=== PATIENT | male | born 1960 | race Caucasian/White ===

== ENCOUNTER 2021-01-11 07:49 | Outpatient (REF) | payer OTHER, SELFPAY ==
[2021-01-11 10:38] LABS: Eosinophils Absolute Auto 0.1 X10*3/uL (0.0-0.4); Imm Gran Abs Auto 0.01 X10*3/uL (0.00-0.03); Imm Gran Pct Auto 0.2 % (0.0-0.4); MANUAL DIFF FLAG SCAN; PLT CLUMP 1; SCAN SMEAR FLAG 1
[2021-01-11 10:40] LABS: Basophils Percent Auto 0.7 % (0-2); Hematocrit 45.6 % (42-52); Hemoglobin 16.5 g/dl (14.0-18.0); Lymphocytes Percent Auto 18.7 % (20-40); Mean Corpuscular HGB Conc 36.2 g/dl (31.0-36.0); Mean Corpuscular Hemoglobin 34.2 pg (27.0-33.0); Mean Corpuscular Volume 94.4 fL (80-98); Mean Platelet Volume 11.5 fL (9.4-12.4); Monocytes Absolute Auto 0.7 X10*3/uL (0.1-1.2); Monocytes Percent Auto 12.8 % (2-11); Neutrophils Absolute Auto 3.5 X10*3/uL (2.0-8.3); Neutrophils Percent Auto 65.6 % (45-73); Platelet Count 101 X10*3/uL (160-400); Red Blood Count 4.83 X10*6/uL (4.60-5.80); Red Cell Distribution Width 13.1 % (11.0-16.0); White Blood Count 5.4 X10*3/uL (4.8-10.8)
[2021-01-11 11:06] LABS: SLIDE REVIEW VERIFIED
[2021-01-11 11:20] LABS: Alanine Aminotransferase 28 U/L (0-40); Albumin Level 3.7 g/dL (3.5-5.0); Alkaline Phosphatase 170 U/L (39-117); Anion Gap 13 (12-20); Aspartate Amino Transferase 31 U/L (5-37); Bilirubin Total 1.4 mg/dL (0.0-1.0); Blood Urea Nitrogen 8 mg/dL (9-16); Calcium 8.9 mg/dL (8.4-10.2); Carbon Dioxide 27 mmol/L (22-29); Chloride 101 mmol/L (96-108); Cholesterol 208 mg/dL; Estimated Glomerular Filt Rate > 60; Glucose Random 136 mg/dL (60-115); HDL Cholesterol 57 mg/dL; LDL Cholesterol Calculated 125 mg/dl; Potassium 3.8 mmol/L (3.3-5.1); Sodium 137 mmol/L (135-145); Total Protein 7.6 g/dL (6.5-8.0); Triglycerides 131 mg/dL
[2021-01-11 11:25] LABS: Free T4 (Free Thyroxine) 0.77 ng/dL (0.71-1.85); Prostate Specific Antigen Scr 0.27 ng/mL (<0.05-4.0); Thyroid Stimulating Hormone 2.42 uIU/mL (0.32-4.0)
[2021-01-11 11:41] LABS: Folate 7.2 ng/mL (> or = 4.0); Vitamin B12 437 pg/mL (200-900)
== END 2021-01-11 07:50 | disposition home or self-care (01) ==
LOC: HO.10HDL 07:49
PROVIDERS: Visit Provider Internal Medicine
DX: Z12.5 Encounter for screening for malignant neoplasm of prostate (principal); I10 Essential (primary) hypertension; E78.00 Pure hypercholesterolemia, unspecified
CPT/HCPCS: 36415; 80053; 80061; 82607; 82746; 84153; 84439; 84443; 85025

== ENCOUNTER → 2021-08-08 09:24 | Outpatient (BNVA) | payer OTHER, SELFPAY | PROVIDERS: PCP Internal Medicine; Visit Provider Physician Assistant | DX: M17.12 Unilateral primary osteoarthritis, left knee (principal) | CPT/HCPCS: 20610; J1040 ==

== ENCOUNTER 2021-09-30 06:31 | Day surgery (SDC) | payer OTHER, SELFPAY ==
--- NOTE | 2021-09-28 12:39 | P.CONAN_ITS ---
Documented by User: Nolvia Redd NP 09/28/21 12:39 HPI - Anesthesia Eval Consult details Narrative: 60yo M for Colonoscopy PMFSH Active Problems Active Problems: All Active Problems (Updated 08/08/21 @ 11:13 by Denisha Barajas PA-C) Osteoarthritis of left knee (Acute) Type 2 diabetes mellitus with hyperglycemia (Acute) Lesion of right eyelid (Acute) Eye exam, routine (Acute) Colonoscopy refused (Acute) Colon cancer screening (Acute) Erectile dysfunction (Acute) Constipation (Acute) Guaiac + stool (Acute) Fatty liver (Acute) Thrombocytopenia (Acute) Annual physical exam (Acute) Hypercholesterolemia (Acute) Obesity (BMI 30-39.9) (Acute) Past Medical History Medical History (Updated 08/08/21 @ 11:13 by Denisha Barajas PA-C) Cholelithiasis Elevated blood sugar Erectile dysfunction Fatty liver Hypercholesterolemia Hypertension Knee osteoarthritis Obesity (BMI 30-39.9) Thrombocytopenia Family History Family History Family/Other Medical history unknown Surgical History Surgical History History of left knee surgery Social History Social History (Updated 12/21/20 @ 12:25 by Jade Harper MD) Housing: House Patient Tobacco Use Status: Never used Tobacco e-Cigarette/Vaping Use: Never Used Second Hand Smoke Exposure: No Use of substances other than those prescribed or required for medical reasons: No Are you DNR?: No Advance Directives: No Advance Directives Information Provided: Yes service: No Current occupational status: employed Cognitive needs: No Hearing needs: No Vision needs: Yes Meds Allergies Allergy/AdvReac Type Severity Reaction Status Date / Time No Known Allergies Allergy Verified 08/02/21 13:15 Exam Exam Date and Time: September 28, 2021 1239 Assessment and Plan Assessment Anesthesia Assessment: Chart Reviewed Documented by User: Lissa Beal MD 09/30/21 07:22 [facility] Past Medical History Medical History (Updated 08/08/21 @ 11:13 by Denisha Barajas PA-C) Cholelithiasis Elevated blood sugar Erectile dysfunction Fatty liver Hypercholesterolemia Hypertension Knee osteoarthritis Obesity (BMI 30-39.9) Thrombocytopenia Family History Family History Family/Other Medical history unknown Family history of problems with anesthesia: No Surgical History Surgical History History of left knee surgery History of Problems with Anesthesia: No Social History Social History (Updated 12/21/20 @ 12:25 by Jade Harper MD) Housing: House Patient Tobacco Use Status: Never used Tobacco e-Cigarette/Vaping Use: Never Used Second Hand Smoke Exposure: No Use of substances other than those prescribed or required for medical reasons: No Are you DNR?: No Advance Directives: No Advance Directives Information Provided: Yes service: No Current occupational status: employed Cognitive needs: No Hearing needs: No Vision needs: Yes Meds Allergies Allergy/AdvReac Type Severity Reaction Status Date / Time No Known Allergies Allergy Verified 08/02/21 13:15 Exam Airway Mallampati Class: II TM Dist: >3cm Neck ROM: Full Assessment and Plan Assessment Anesthesia Assessment: Anesthesia Plan Discussed Final Anesthetic Review Family History of Problems with Anesthesia: No History of Problems with Anesthesia: No NPO: Yes ASA Class: III Final Preanesthetic Review: No Changes in Pt Med Stat, Meds/Allgs Chart Reviewed, Consent Obtained/Reviewed and Anes Risks/Benef Reviewed Patient Risk: Intermediate Procedure Risk: Low Anesthetic Plan Anesthetic Plan: MAC: Disposition: Standard PACU
[2021-09-30 06:42] VITALS: BP 147/88; PULSE 77; RESP 18; TEMP 36.2; O2SAT 95; BMI 33.2
[2021-09-30] MEDS: Lactated Ringers 1,000 ML 100 ML IVCONT (06:54)
[2021-09-30 07:00] LABS: Hematocrit 46.3 % (42.0-52.0); Hemoglobin 16.9 g/dl (14.0-18.0); Mean Corpuscular HGB Conc 36.5 g/dl (31.0-36.0); Mean Corpuscular Hemoglobin 34.3 pg (27.0-33.0); Mean Corpuscular Volume 94.1 fL (80.0-98.0); Mean Platelet Volume 10.3 fL (9.4-12.4); Platelet Count 119 X10*3/uL (160-400); Red Blood Count 4.92 X10*6/uL (4.60-5.80); Red Cell Distribution Width 13.1 % (11.0-16.0); White Blood Count 6.4 X10*3/uL (4.8-10.8)
--- NOTE | 2021-09-30 07:28 | MHC.SHP ---
Pre-Procedural Eval Section A Date of Service: 09/30/21 Section B Chief Complaint: screening Details of Present Illness: see H&P no changes Relevant Family History (Specify if Yes): No Relevant Social History: Alcohol Use Present Medications: see Short Stay Collaborative assessment Medical History: No relevant PMH History of Previous Operations: No relevant previous surgery Allergies: Allergies Allergy/AdvReac Type Severity Reaction Status Date / Time No Known Allergies Allergy Verified 08/02/21 13:15 Review of Systems Sugical H&P ROS: Negative: Constitution, Cardiovascular, Respiratory, Neurological, Psychiatric, Hem-Onc, Allergic/Immunologic, Gastrointestinal, Genitourinary, Musculoskeletal, Integumentary, Endocrine and Eyes/Ears/Nose/Throat Exam Surgical H&P Exam: Normal: HEENT, Normal: Heart, Normal: Lungs, Normal: Extremities, Normal: Abdomen, Normal: Skin and Normal: Neurological Plan Diagnosis/Plan: Unchanged I have reviewed the history and physical and performed a pertinent physical examination on my patient. No changes have occurred unless specified.
[2021-09-30 08:07] VITALS: BP 100/61; PULSE 80; RESP 20; TEMP 36.6; O2SAT 98
--- NOTE | 2021-09-30 08:09 | PM.OP ---
Brief Operative Note Date of Service: 09/30/21 Pre-op diagnosis: screening Post-op diagnosis: same (colon polyps) Procedure: colonoscopy Surgeon: Santos Khan Anesthesia: MAC Was an Parts Runner used for this Procedure?: No Estimated blood loss (mL): 0 Pathology: other (polyps x3) Condition: stable
[2021-09-30 08:22] VITALS: BP 105/72; PULSE 71; RESP 18; TEMP 36.3; O2SAT 97
--- NOTE | 2021-09-30 11:16 | OP_ITS ---
SURGEON: Santos Khan MD INDICATIONS: Colon cancer screening. PREOPERATIVE DIAGNOSIS: POSTOPERATIVE DIAGNOSIS: PROCEDURE PERFORMED: Colonoscopy to the terminal ileum with snare polypectomy. ESTIMATED BLOOD LOSS: COMPLICATIONS: ANESTHESIA: ASSISTANTS: SPECIMENS: MEDICATIONS: Monitored anesthesia care. DESCRIPTION OF PROCEDURE: History and physical was performed. The risks and benefits of the procedure were explained to the patient. Informed consent was obtained. The patient was placed in the left lateral decubitus position. A digital rectal exam was performed and was found to be normal. The Olympus pediatric video colonoscope was introduced into the rectum and advanced to the cecum without difficulty. The cecum was identified by transillumination, palpation, and identification of ileocecal valve. Examination was performed. The scope was removed. He tolerated the procedure well and was taken to recovery room in stable condition. FINDINGS: The terminal ileum was examined and appeared normal. The visualized colonic mucosa was normal. There was some residual stool in the right colon which was washed and suctioned. This did limit examination for detection of small polyps slightly, but generally the examination was considered adequate. 3 polyps were identified and removed with a snare. All measured between 5 and 10 mm. These were located at 80 cm, 70 cm, and 35 cm. Retroflexed examination showed moderately large internal hemorrhoids. IMPRESSION: Colon polyps. RECOMMENDATION: Follow up biopsy results. MD TRAE Eden/CAITLYN / [id number]
== END 2021-09-30 08:50 | disposition home or self-care (01) ==
PROVIDERS: Nurse Practitioner; PCP Internal Medicine; Visit Provider Internal Medicine Gastroenterology
PROC: 0DJD8ZZ Inspection of Lower Intestinal Tract, Via Natural or Artificial Opening Endoscopic (ICD-10-PCS; CPT 45378; principal; 2021-09-30 07:30)
DX: Z12.11 Encounter for screening for malignant neoplasm of colon (principal); D12.4 Benign neoplasm of descending colon; D12.5 Benign neoplasm of sigmoid colon; K64.8 Other hemorrhoids; K76.0 Fatty (change of) liver, not elsewhere classified; I10 Essential (primary) hypertension; D69.6 Thrombocytopenia, unspecified; R73.9 Hyperglycemia, unspecified; Z79.899 Other long term (current) drug therapy
CPT/HCPCS: 45385; 36415; 85027; 88305

== ENCOUNTER → 2021-12-01 08:40 | Outpatient (BNVA) | payer OTHER, SELFPAY | PROVIDERS: PCP Internal Medicine; Visit Provider Physician Assistant | DX: M17.12 Unilateral primary osteoarthritis, left knee (principal) | CPT/HCPCS: 20610; J1040 ==

== ENCOUNTER 2022-01-05 17:18 | Inpatient (IN) | payer OTHER, SELFPAY ==
--- NOTE | ~2022-01-05 | US_ITS ---
EXAMINATION: US VENOUS WITH DOPPLER UPPER EXTREMITY, RIGHT CLINICAL INFORMATION: Right forearm pain and swelling status post IV puncture. COMPARISON: None TECHNIQUE: Ultrasound of the upper extremity is performed using compression sonography and color and pulse Doppler flow with assessment of augmentation of flow. There is also imaging and Doppler assessment of the jugular and subclavian veins. Spectral analysis with color-flow imaging is performed. FINDINGS: There is no evidence for deep venous thrombosis in the right internal jugular, subclavian, axillary, brachial, radial and ulnar veins. The right basilic vein is patent. The right cephalic vein shows positive thrombus from the level the mid forearm distally to the wrist. US/US venous duplex UE RT IMPRESSION: 1. No evidence of deep venous thrombosis in the visualized veins of the right upper extremity. 2. Positive superficial thrombus in the right cephalic vein from the level the mid forearm distally to the right wrist.
--- NOTE | ~2022-01-05 | CT_ITS ---
EXAMINATION: CT FOOT WITHOUT CONTRAST, RIGHT CLINICAL INFORMATION: Pain. COMPARISON: None TECHNIQUE: Axial images obtained through the foot. Coronal and sagittal reformatted images are performed at CT scanner This CT examination was performed using dose optimization techniques as appropriate, variously including the following: *Automated exposure control *Adjustment of mA and/or kV according to patient size (this includes techniques or standardized protocols for targeted exams where dose is matched to indication/reason for exam; i.e. extremities or head) *Use of iterative reconstruction technique DLP: 143 mGy-cm FINDINGS: There is gas and edema in the great toe soft tissues. There is seen through the soft tissues from about the mid first metatarsal at the dorsal side of the toe through the distal tip of the toe. There is soft tissue irregularity of the distal tip of the toe and edema. Findings consistent with infection. No abscess or drainable fluid collection however. There are air droplets within the bone consistent with osteomyelitis. There are droplets are most severe within the distal phalange. There are droplets however are also present in the proximal phalange, and head of the first metatarsal. There are a few air droplets also in the dorsum of the foot extending toward the ankle with associated soft tissue edema. No other region of infection or bone destruction of the foot. There are small spurs of the plantar surface of the calcaneus and at the posterior calcaneus. There are degenerative changes at the mid tarsal bones particularly at the anterior facet of the calcaneus talar articulation. CT/CT foot RT wo IV con IMPRESSION: Edema and gas in the soft tissues around the great toe. Gas within the bone of the great toe. Findings consistent with osteomyelitis. This can be further assessed with MRI if clinically warranted.
--- NOTE | ~2022-01-05 | IR_ITS ---
PROCEDURE: IR INSERTION OF PICC CLINICAL INFORMATION: PICC team unable to advance PICC line into the subclavian vein. COMPARISON: None. TECHNIQUE: Fluoroscopic-guided manipulation and placement of PICC line. All elements of maximal sterile barrier technique followed including use of cap, mask, sterile gown, sterile gloves, a sterile full body drape and hand hygiene. Also followed skin preparation with 2% chlorhexidine for cutaneous antisepsis, and sterile ultrasound preparation with sterile gel and probe cover when applicable. FINDINGS: The indwelling catheter tip is seen to lie at the junctions of the left axillary and subclavian veins. Using sterile technique the indwelling guidewire was removed and PICC line aspirated. A 0.018 inch guidewire was then placed through the catheter and into the inferior vena cava. The catheter was then advanced over the wire with its tip lying within the mid superior vena cava. The patient tolerated the procedure without difficulty. The PICC line had been trimmed to 49 cm at time of initial attempt at placement. FLUOROSCOPY TIME: 0.4 minutes. DAP: 86 cGy centimeter squared. IR/IR cvc insert peripheral IMPRESSION: Repositioning of left upper extremity PICC line as described.
[2022-01-05 17:42] VITALS: BP 96/59; PULSE 110; RESP 18; TEMP 37.7; O2SAT 95; BMI 31.8
--- NOTE | 2022-01-05 17:48 | ECG_ITS ---
Test Reason : SEPSIS Blood Pressure : / mmHG Vent. Rate : 096 BPM Atrial Rate : 096 BPM P-R Int : 132 ms QRS Dur : 106 ms QT Int : 376 ms P-R-T Axes : -18 -17 -03 degrees QTc Int : 475 ms Normal sinus rhythm Minimal voltage criteria for LVH, may be normal variant ( R in aVL ) Intra-ventricular conduction delay Borderline ECG No previous ECGs available Referred By: Ximena Calvillo Electronically Signed By:MILLIE CHARLES MD
[2022-01-05 18:05] LABS: Hematocrit 42.1 % (42.0-52.0); Hemoglobin 15.6 g/dl (14.0-18.0); Mean Corpuscular HGB Conc 37.1 g/dl (31.0-36.0); Mean Corpuscular Hemoglobin 33.7 pg (27.0-33.0); Mean Corpuscular Volume 90.9 fL (80.0-98.0); Mean Platelet Volume 10.2 fL (9.4-12.4); Platelet Count 269 X10*3/uL (160-400); Red Blood Count 4.63 X10*6/uL (4.60-5.80); Red Cell Distribution Width 12.8 % (11.0-16.0)
[2022-01-05 18:06] LABS: WBC ABN SCTR FOR CBC 1
[2022-01-05 18:20] LABS: COVID-19 Test Negative (Negative); IDNOW Serial# 16C4AD1C
[2022-01-05 18:24] LABS: Neutrophils Percent Manual 77 % (45-73)
[2022-01-05 18:29] LABS: Alanine Aminotransferase 37 U/L (0-40); Albumin Level 3.3 g/dL (3.5-5.0); Alkaline Phosphatase 121 U/L (39-117); Anion Gap 19 (12-20); Aspartate Amino Transferase 39 U/L (5-37); Band Neutrophils Percent 17 % (3-5); Bilirubin Direct 2.2 mg/dL (0.0-0.5); Bilirubin Total 4.3 mg/dL (0.0-1.0); Blood Urea Nitrogen 20 mg/dL (9-16); Calcium 8.6 mg/dL (8.4-10.2); Carbon Dioxide 20 mmol/L (22-29); Chloride 96 mmol/L (96-108); Estimated Glomerular Filt Rate 51; Glucose Random 150 mg/dL (60-115); Lipase 15 U/L (8-78); Lymphocytes Percent Manual 1 % (20-40); Monocytes Percent Manual 5 % (2-11); Potassium 3.6 mmol/L (3.3-5.1); Sodium 131 mmol/L (135-145); Total Protein 7.3 g/dL (6.5-8.0)
[2022-01-05 18:31] LABS: Platelet Estimate NORMAL (NORMAL); Platelet Morphology Comment NORMAL; RBC Morphology NOTED; Toxic Vacuolation PRESENT
[2022-01-05 18:33] LABS: Lymphocytes Absolute Manual 0.4 X10*3/uL (1.2-4.9); Monocytes Absolute Manual 2.2 X10*3/uL (0.1-1.2); Neutrophils Absolute Manual 40.5 X10*3/uL (2.0-8.3); White Blood Count 43.1 X10*3/uL (4.8-10.8)
[2022-01-05 18:34] LABS: Lactic Acid 2.6 mmol/L (0.5-2.0)
--- NOTE | 2022-01-05 19:04 | ED.SKABFB ---
HPI - Skin/Abscess/Foreign Bdy General Chief complaint: Skin/Abscess/Foreign Body Stated complaint: sent from doctors Time Seen by Provider: 01/05/22 18:39 Source: patient, family and old records reviewed Mode of arrival: ambulatory Limitations: no limitations and other History of Present Illness HPI narrative: 61 yo male hx of HLD, fatty liver, was drinking heavily up until 3 weeks ago, does not smoke, denies prior hx of DM ( primary care notes state DM after review but diet controlled last hemoglobin A1c 5.5) or PVD. Was sent to the ED by PCP for R foot swelling/infection. The patient reportedly had wood fall on it 3 months ago and it has worsened since. He has been in more pain and the wound/foot has become more red swollen and has an odor. He has been using hydrogen peroxide to clean it at home. MD complaint: rash, abscess/boil and lesion Onset (ago): month(s) (3) Tetanus up to date: yes Location: R foot Severity: severe Quality: aching and constant Pain Consistency: constant Relieving factors: immobilization Exacerbating factors: palpation and movement Context: other (trauma now with infection) Associated symptoms: chills, nausea and malaise Treatments prior to arrival: bandages Related Data Home Medications Medication Instructions Recorded Confirmed hydrochlorothiazide 25 mg tablet 25 mg PO DAILY 01/05/22 01/05/22 Previous Rx's Medication Instructions Recorded lisinopril 5 mg tablet 5 mg PO DAILY #90 tabs 05/09/21 sildenafil 50 mg tablet 50 mg PO DAILY PRN sexual activity 12/14/21 #10 tabs Allergies Allergy/AdvReac Type Severity Reaction Status Date / Time No Known Allergies Allergy Verified 01/05/22 16:23 Review of Systems Review of Systems: Constitutional : No Fever, pos Chills ENT/Mouth : No sore throat, No Rhinorrhea Eyes: No Eye Pain, No Swelling, No Redness Cardiovascular : No Chest Pain, No SOB Respiratory : No Cough, No Sputum Gastrointestinal : No Nausea, No Vomiting, No Diarrhea, No abdominal Pain Genitourinary : No Dysuria, No Hematuria Musculoskeletal : pos joint pain, No Myalgias, pos Joint Swelling Skin : No Skin Lesions, positive skin rash Neuro : No Weakness, No Numbness, No Headache Psych : No Anxiety, No Depression Heme/Lymph: No Bruising, No Bleeding,No Lymphadenopathy Endocrine : No Polyuria, No Polydipsia All other systems reviewed and are negative [facility] Past Medical History Attestation statement: The following information was validated with the patient. Medical History Cholelithiasis Elevated blood sugar Erectile dysfunction Fatty liver Hypercholesterolemia Hypertension Knee osteoarthritis Obesity (BMI 30-39.9) Thrombocytopenia Surgical History History of left knee surgery Family History Family History Family/Other Medical history unknown Social History Social History (Updated 12/21/20 @ 12:25 by Jade Harper MD) Housing: House Patient Tobacco Use Status: Never used Tobacco e-Cigarette/Vaping Use: Never Used Second Hand Smoke Exposure: No Advance Directives: No Advance Directives Information Provided: No service: No Current occupational status: employed Cognitive needs: No Hearing needs: No Vision needs: Yes Physical Exam Vital Signs: Vital Signs: Last Vital Signs Temp 98.7 F 01/05/22 19:42 Pulse 73 01/05/22 23:08 Resp 24 H 01/05/22 23:08 BP 97/56 L 01/05/22 23:29 Pulse Ox 97 01/05/22 23:08 O2 Del Method 01/05/22 23:08 BMI result Body Mass Index 31.8 Appearance: Alert. Oriented X3. No acute distress. Anxious Eyes: Pupils equal, round and reactive to light. Scleral icterus ENT: Pharynx mildly dry MM Neck: Normal inspection. Neck supple. CVS: tachycardic heart rate and rhythm. Pulses normal. Respiratory: No respiratory distress. Breath sounds normal. Abdomen: Soft and non-tender. Skin: Skin warm and dry. jaundiced skin color. Normal skin turgor. Extremities: please see skin picture blow - R foot necrotic area 1st toe hanging off - swelling and erythema onto dorsum of foot, bleeding noted, drainage and foul odor present Neuro: Oriented X 3. No motor deficit. No sensory deficit. Course Course Course Narrative: Dr. Green aware will follow along 712pm - will need surgery. patient is obese IBW is 78kg - 30cc/kg bolus ordered 2500cc ordered repeat requests for CT scan to be read by radiology - delay for a few hours uploaded in our viewer 730 images sent to surgery to review - states pockets of air expected, patient will need BKA BP still in low 87/51 - albumin and repeat 500c bolus ordered will see how patient responds - will notify surgery about possible failure Dr. Maddox aware will follow along if pressures do not improve over 90 he will take the patient BP 97/56 - discussed case with hospitalist - planned admit MDM - Skin/Abscess/Foreign Bdy MDM Narrative Medical decision making narrative: 61 yo male hx of HLD, fatty liver, was drinking heavily up until 3 weeks ago, does not smoke, denies prior hx of DM ( primary care notes state DM after review but diet controlled last hemoglobin A1c 5.5) or PVD now with necrotic R great toe - labs, cultures, lactic acid, CPK, CT scan of foot to r/o gas though low suspicion, will involve surgery as this will require inpatient amputation at some point. Broad spectrum antibiotics including vancomycin and zosyn at first. 1 dose of clindamycin for toxin production until CT scan returned. I did notify the patient and his that this would require debridement and amputation the patient is very much in denial about what is going on Lab Data Result diagrams: 01/05/22 17:55 01/05/22 17:55 Labs: Lab Results 01/05/22 01/05/22 01/05/22 Range/Units 17:54 17:55 17:55 WBC 43.1 H* (4.8-10.8) X10*3/uL RBC 4.63 (4.60-5.80) X10*6/uL Hgb 15.6 (14.0-18.0) g/dl Hct 42.1 (42.0-52.0) % MCV 90.9 (80.0-98.0) fL MCH 33.7 H (27.0-33.0) pg MCHC 37.1 H (31.0-36.0) g/dl RDW 12.8 (11.0-16.0) % Plt Count 269 D (160-400) X10*3/uL MPV 10.2 (9.4-12.4) fL Immature Gran % (Auto) Cancelled Neut % (Auto) Cancelled Lymph % (Auto) Cancelled [place] % (Auto) Cancelled Eos % (Auto) Cancelled Baso % (Auto) Cancelled Lymph # (Auto) Cancelled [place] # (Auto) Cancelled Eos # (Auto) Cancelled Baso # (Auto) Cancelled Abs Immat Gran (auto) Cancelled Absolute Neuts (auto) Cancelled Absolute Nucleated RBC 0.000 (0.0-0.012) X10*3/uL Nucleated RBC % (auto) 0.0 (0.0-0.2) /100WBC Neutrophils % (Manual) 77 H (45-73) % Band Neutrophils % 17 H (3-5) % Lymphocytes % (Manual) 1 L (20-40) % Monocytes % (Manual) 5 (2-11) % Abs Neuts (Manual) 40.5 H (2.0-8.3) X10*3/uL Lymphocytes # (Manual) 0.4 L (1.2-4.9) X10*3/uL Monocytes # (Manual) 2.2 H (0.1-1.2) X10*3/uL Toxic Vacuolation PRESENT Platelet Estimate NORMAL (NORMAL) Plt Morphology Comment NORMAL RBC Morphology NOTED PT (10.0-13.1) SEC INR (0.9-1.1) APTT (26.0-36.4) SEC Sodium 131 L (135-145) mmol/L Potassium 3.6 (3.3-5.1) mmol/L Chloride 96 (96-108) mmol/L Carbon Dioxide 20 L (22-29) mmol/L Anion Gap 19 (12-20) BUN 20 H (9-16) mg/dL Creatinine 1.40 (0.5-1.4) mg/dL Estim Creat Clear Calc 69.0 Estimated GFR 51 Random Glucose 150 H (60-115) mg/dL Lactic Acid (0.5-2.0) mmol/L Lactic Acid F/U @ 2Hr (0.5-2.0) mmol/L Calcium 8.6 (8.4-10.2) mg/dL Magnesium 1.8 (1.6-2.6) mg/dL Total Bilirubin 4.3 H (0.0-1.0) mg/dL Direct Bilirubin 2.2 H (0.0-0.5) mg/dL AST 39 H (5-37) U/L ALT 37 (0-40) U/L Alkaline Phosphatase 121 H D (39-117) U/L Ammonia (13-55) umol/L Total Creatine Kinase 50 (38-174) U/L Total Protein 7.3 (6.5-8.0) g/dL Albumin 3.3 L (3.5-5.0) g/dL Lipase 15 (8-78) U/L Ethyl Alcohol < 10 mg/dL COVID-19 (LOY) Negative (Negative) COVID-19 Clin Com See Note 01/05/22 01/05/22 01/05/22 Range/Units 17:57 19:03 19:49 WBC (4.8-10.8) X10*3/uL RBC (4.60-5.80) X10*6/uL Hgb (14.0-18.0) g/dl Hct (42.0-52.0) % MCV (80.0-98.0) fL MCH (27.0-33.0) pg MCHC (31.0-36.0) g/dl RDW (11.0-16.0) % Plt Count (160-400) X10*3/uL MPV (9.4-12.4) fL Immature Gran % (Auto) Neut % (Auto) Lymph % (Auto) [place] % (Auto) Eos % (Auto) Baso % (Auto) Lymph # (Auto) [place] # (Auto) Eos # (Auto) Baso # (Auto) Abs Immat Gran (auto) Absolute Neuts (auto) Absolute Nucleated RBC (0.0-0.012) X10*3/uL Nucleated RBC % (auto) (0.0-0.2) /100WBC Neutrophils % (Manual) (45-73) % Band Neutrophils % (3-5) % Lymphocytes % (Manual) (20-40) % Monocytes % (Manual) (2-11) % Abs Neuts (Manual) (2.0-8.3) X10*3/uL Lymphocytes # (Manual) (1.2-4.9) X10*3/uL Monocytes # (Manual) (0.1-1.2) X10*3/uL Toxic Vacuolation Platelet Estimate (NORMAL) Plt Morphology Comment RBC Morphology PT 20.7 H (10.0-13.1) SEC INR 1.8 H (0.9-1.1) APTT 33.4 (26.0-36.4) SEC Sodium (135-145) mmol/L Potassium (3.3-5.1) mmol/L Chloride (96-108) mmol/L Carbon Dioxide (22-29) mmol/L Anion Gap (12-20) BUN (9-16) mg/dL Creatinine (0.5-1.4) mg/dL Estim Creat Clear Calc Estimated GFR Random Glucose (60-115) mg/dL Lactic Acid 2.6 H* (0.5-2.0) mmol/L Lactic Acid F/U @ 2Hr (0.5-2.0) mmol/L Calcium (8.4-10.2) mg/dL Magnesium (1.6-2.6) mg/dL Total Bilirubin (0.0-1.0) mg/dL Direct Bilirubin (0.0-0.5) mg/dL AST (5-37) U/L ALT (0-40) U/L Alkaline Phosphatase (39-117) U/L Ammonia 46 (13-55) umol/L Total Creatine Kinase (38-174) U/L Total Protein (6.5-8.0) g/dL Albumin (3.5-5.0) g/dL Lipase (8-78) U/L Ethyl Alcohol mg/dL COVID-19 (LOY) (Negative) COVID-19 Clin Com 01/05/22 Range/Units 20:57 WBC (4.8-10.8) X10*3/uL RBC (4.60-5.80) X10*6/uL Hgb (14.0-18.0) g/dl Hct (42.0-52.0) % MCV (80.0-98.0) fL MCH (27.0-33.0) pg MCHC (31.0-36.0) g/dl RDW (11.0-16.0) % Plt Count (160-400) X10*3/uL MPV (9.4-12.4) fL Immature Gran % (Auto) Neut % (Auto) Lymph % (Auto) [place] % (Auto) Eos % (Auto) Baso % (Auto) Lymph # (Auto) [place] # (Auto) Eos # (Auto) Baso # (Auto) Abs Immat Gran (auto) Absolute Neuts (auto) Absolute Nucleated RBC (0.0-0.012) X10*3/uL Nucleated RBC % (auto) (0.0-0.2) /100WBC Neutrophils % (Manual) (45-73) % Band Neutrophils % (3-5) % Lymphocytes % (Manual) (20-40) % Monocytes % (Manual) (2-11) % Abs Neuts (Manual) (2.0-8.3) X10*3/uL Lymphocytes # (Manual) (1.2-4.9) X10*3/uL Monocytes # (Manual) (0.1-1.2) X10*3/uL Toxic Vacuolation Platelet Estimate (NORMAL) Plt Morphology Comment RBC Morphology PT (10.0-13.1) SEC INR (0.9-1.1) APTT (26.0-36.4) SEC Sodium (135-145) mmol/L Potassium (3.3-5.1) mmol/L Chloride (96-108) mmol/L Carbon Dioxide (22-29) mmol/L Anion Gap (12-20) BUN (9-16) mg/dL Creatinine (0.5-1.4) mg/dL Estim Creat Clear Calc Estimated GFR Random Glucose (60-115) mg/dL Lactic Acid (0.5-2.0) mmol/L Lactic Acid F/U @ 2Hr 1.9 (0.5-2.0) mmol/L Calcium (8.4-10.2) mg/dL Magnesium (1.6-2.6) mg/dL Total Bilirubin (0.0-1.0) mg/dL Direct Bilirubin (0.0-0.5) mg/dL AST (5-37) U/L ALT (0-40) U/L Alkaline Phosphatase (39-117) U/L Ammonia (13-55) umol/L Total Creatine Kinase (38-174) U/L Total Protein (6.5-8.0) g/dL Albumin (3.5-5.0) g/dL Lipase (8-78) U/L Ethyl Alcohol mg/dL COVID-19 (LOY) (Negative) COVID-19 Clin Com ECG Data Attestation: I personally reviewed and interpreted this ECG as follows: ECG interpretation date: 01/05/22 ECG interpretation time: 19:44 Interpretation: Rate: 96 Rhythm: NSR [place]: left , LVH Normal P waves. Normal REGINALDO. Normal QRS complex. ST T wave : normal no VIVI qTC: prolonged prior studies: no acute ischemia The study has been interpreted contemporaneously by me. . Critical Care Time Critical Care Time Critical Care Time: Yes Total Critical Care Time: 40 Attestation: review of records, IV antibiotics, medical consult, admission to facility, IVF x 2.5L. I attest to this time spent taking care of the patient Discharge Plan Discharge Clinical Impression: Bandemia, Elevated bilirubin, Acidosis, lactic, Cellulitis of foot, right, Gangrene Leukocytosis Qualifiers: Leukocytosis type: bandemia Qualified Code(s): D72.825 - Bandemia Osteomyelitis Qualifiers: Osteomyelitis type: other Osteomyelitis location: foot Laterality: right Qualified Code(s): M86.8X7 - Other osteomyelitis, ankle and foot Patient Disposition: Admitted As Inpatient
[2022-01-05 19:06] LABS: Ethanol < 10 mg/dL; Magnesium 1.8 mg/dL (1.6-2.6)
[2022-01-05] MEDS: Acetaminophen 325 MG TABLET 650 MG PO (19:11)
[2022-01-05] MEDS: 0.9 % Sodium Chloride 1,000 ML 999 ML IV ×2 (19:12→19:59)
[2022-01-05] MEDS: Piperacillin Sodium/Tazobactam 3.375 GM in 0.9 % Sodium Chloride 50 ML IV (19:13)
[2022-01-05 19:15] LABS: INTERNATIONAL NORM RATIO 1.8 (0.9-1.1); Prothrombin Time 20.7 SEC (10.0-13.1)
[2022-01-05 19:17] LABS: Partial Thromboplastin Time 33.4 SEC (26.0-36.4)
[2022-01-05 19:42] VITALS: BP 100/57; PULSE 92; RESP 21; TEMP 37.1; O2SAT 96
[2022-01-05] MEDS: Clindamycin Phosphate/D5W 900 MG/50 ML PIGGYBACK 50 MG IV (19:51)
[2022-01-05] MEDS: 0.9 % Sodium Chloride 500 ML IV (19:59)
[2022-01-05 20:02] LABS: Reflex Lactate? Lactic Acid Added
[2022-01-05 20:03] LABS: Ammonia 46 umol/L (13-55)
[2022-01-05 20:39] VITALS: BP 95/58; PULSE 81; RESP 24; O2SAT 96
--- NOTE | 2022-01-05 20:41 | PHA.MEDREC ---
Pharmacy Consult ? Medication Reconciliation Pharmacy has completed the medication reconciliation.
[2022-01-05 21:14] LABS: ~Lactic Acid-LAB USE ONLY 1.9 mmol/L (0.5-2.0)
[2022-01-05] MEDS: Albumin Human 25 % 100 ML IV (23:04)
[2022-01-05 23:08] VITALS: BP 87/51; PULSE 73; RESP 24; O2SAT 97
[2022-01-05 23:29] VITALS: BP 97/56
[2022-01-06] VITALS (10 sets, daily range): BP systolic 95–127; BP diastolic 52–72; PULSE 74–103; RESP 16–22; TEMP 36.2–38.4; O2SAT 94–97; BMI 33.5
--- NOTE | 2022-01-06 00:08 | P.HPHOSP_ITS ---
History of Present Illness Date of Service: 01/06/22 Chief Complaint: Foot infection This is a 61-year-old male with a pertinent history of essential hypertension, ?diet-controlled diabetes mellitus, alcohol use disorder who presents to the emergency department at the behest of his primary care physician for evaluation of right foot wound. Patient states he had a callus under his right foot about 3 months ago. A piece of wood also fell on his right foot about the same time and since then he has had a right foot wound which has not healed. It has gotten progressively worse with swelling, redness, worsening pain and recently has started draining purulent foul-smelling discharge. Patient did not see a doctor for it and did not take any antibiotics as he does not like to see doctors. Does report fever and chills at home. No nausea, vomiting, chest discomfort, shortness of breath, abdominal pain, changes in urinary or bowel habits. Denies history of peripheral vascular disease. Patient states he used to drink about 8 beers a day. His last drink was 2 weeks ago. In the emergency department, significant leukocytosis with bandemia seen. CT scan with gas in soft tissue and evidence of osteomyelitis. Review of Systems Review of Systems: All 13 review of systems are negative except as noted in [facility] Medical History (Updated 01/06/22 @ 00:19 by Trini Chinchilla MD) Cholelithiasis Elevated blood sugar Erectile dysfunction Fatty liver Hypercholesterolemia Hypertension Knee osteoarthritis Obesity (BMI 30-39.9) Thrombocytopenia Family History Family/Other Medical history unknown Surgical History History of left knee surgery Social History Housing: House Patient Tobacco Use Status: Never used Tobacco e-Cigarette/Vaping Use: Never Used Second Hand Smoke Exposure: No Advance Directives: No Advance Directives Information Provided: No service: No Current occupational status: employed Cognitive needs: No Hearing needs: No Vision needs: Yes Meds Allergies Allergy/AdvReac Type Severity Reaction Status Date / Time No Known Allergies Allergy Verified 01/05/22 16:23 Active Medications: Current Medications Acetaminophen (Acetaminophen 325 Mg Tablet) 650 mg PO Q6H PRN PRN Reason: Pain, Mild (Pain Scale 1-3) Sodium Chloride (Ns) 500 mls @ 500 mls/hr IV .Q1H [facility] Stop: 01/06/22 00:14 Piperacillin Sod/Tazobactam (Sod 4.5 gm/ Sodium Chloride) 100 mls @ 200 mls/hr IV Q6H [facility] Clindamycin Phosphate (Cleocin) 900 mg in 50 mls @ 50 mls/hr IV Q8H [facility] Melatonin (Melatonin 3 Mg Tablet) 6 mg PO BEDTIME PRN PRN Reason: Insomnia Ondansetron HCl (Ondansetron Hcl 4 Mg/2 Ml Vial) 4 mg IVPUSH Q8H PRN PRN Reason: Nausea and Vomiting Pharmacy Consult (Consult Rx Perform Med Rec) 1 each MISCELLANE ONCE PRN PRN Reason: Consult order Pharmacy Consult (Consult Rx Vancomycin Dosing) 1 each MISCELLANE DAILY PRN PRN Reason: Consult order Sodium Chloride (0.9 % Sodium Chloride Flush 3 Ml Syringe) [address] [facility] Home Medications Medication Instructions Recorded Confirmed Last Taken Type hydrochlorothiazide 25 mg tablet 25 mg PO DAILY 01/05/22 01/05/22 01/05/22 History Physical Exam Vital Signs and Narrative: Vital Signs: Last Vital Signs Temp 98.7 F 01/05/22 19:42 Pulse 73 01/05/22 23:08 Resp 24 H 01/05/22 23:08 BP 97/56 L 01/05/22 23:29 Pulse Ox 97 01/05/22 23:08 O2 Del Method 01/05/22 23:08 BMI result Body Mass Index 31.8 Middle-aged male lying in bed in no distress Neck supple, no JVD Regular rate and rhythm, S1-S2 heard Regular breath sounds bilaterally, no wheezing or crackles appreciated Abdomen soft nontender, no guarding, no rigidity Patient is awake, alert and oriented to self, place, time and person ; no focal motor deficit Extremities: Right lower extremity covered in bandage. Psych: Normal mood Results Labs CBC and Chem 7: 01/05/22 17:55 01/05/22 17:55 Labs: Laboratory Results - last 24 hr 01/05/22 01/05/22 01/05/22 17:54 17:55 17:55 MCV 90.9 MCH 33.7 H MCHC 37.1 H RDW 12.8 Plt Count 269 D MPV 10.2 Immature Gran % (Auto) Cancelled Neut % (Auto) Cancelled Lymph % (Auto) Cancelled [place] % (Auto) Cancelled Eos % (Auto) Cancelled Baso % (Auto) Cancelled Lymph # (Auto) Cancelled [place] # (Auto) Cancelled Eos # (Auto) Cancelled Baso # (Auto) Cancelled Abs Immat Gran (auto) Cancelled Absolute Neuts (auto) Cancelled Absolute Nucleated RBC 0.000 Nucleated RBC % (auto) 0.0 Neutrophils % (Manual) 77 H Band Neutrophils % 17 H Lymphocytes % (Manual) 1 L Monocytes % (Manual) 5 Abs Neuts (Manual) 40.5 H Lymphocytes # (Manual) 0.4 L Monocytes # (Manual) 2.2 H Toxic Vacuolation PRESENT Platelet Estimate NORMAL Plt Morphology Comment NORMAL RBC Morphology NOTED PT INR APTT Anion Gap 19 Estim Creat Clear Calc 69.0 Estimated GFR 51 Random Glucose 150 H Lactic Acid Lactic Acid F/U @ 2Hr Calcium 8.6 Magnesium 1.8 Total Bilirubin 4.3 H Direct Bilirubin 2.2 H AST 39 H ALT 37 Alkaline Phosphatase 121 H D Ammonia Total Creatine Kinase 50 Total Protein 7.3 Albumin 3.3 L Lipase 15 Ethyl Alcohol < 10 COVID-19 (LOY) Negative COVID-19 Clin Com See Note 01/05/22 01/05/22 01/05/22 17:57 19:03 19:49 MCV MCH MCHC RDW Plt Count MPV Immature Gran % (Auto) Neut % (Auto) Lymph % (Auto) [place] % (Auto) Eos % (Auto) Baso % (Auto) Lymph # (Auto) [place] # (Auto) Eos # (Auto) Baso # (Auto) Abs Immat Gran (auto) Absolute Neuts (auto) Absolute Nucleated RBC Nucleated RBC % (auto) Neutrophils % (Manual) Band Neutrophils % Lymphocytes % (Manual) Monocytes % (Manual) Abs Neuts (Manual) Lymphocytes # (Manual) Monocytes # (Manual) Toxic Vacuolation Platelet Estimate Plt Morphology Comment RBC Morphology PT 20.7 H INR 1.8 H APTT 33.4 Anion Gap Estim Creat Clear Calc Estimated GFR Random Glucose Lactic Acid 2.6 H* Lactic Acid F/U @ 2Hr Calcium Magnesium Total Bilirubin Direct Bilirubin AST ALT Alkaline Phosphatase Ammonia 46 Total Creatine Kinase Total Protein Albumin Lipase Ethyl Alcohol COVID-19 (LOY) COVID-19 Be Spotted Com 01/05/22 20:57 MCV MCH MCHC RDW Plt Count MPV Immature Gran % (Auto) Neut % (Auto) Lymph % (Auto) [place] % (Auto) Eos % (Auto) Baso % (Auto) Lymph # (Auto) [place] # (Auto) Eos # (Auto) Baso # (Auto) Abs Immat Gran (auto) Absolute Neuts (auto) Absolute Nucleated RBC Nucleated RBC % (auto) Neutrophils % (Manual) Band Neutrophils % Lymphocytes % (Manual) Monocytes % (Manual) Abs Neuts (Manual) Lymphocytes # (Manual) Monocytes # (Manual) Toxic Vacuolation Platelet Estimate Plt Morphology Comment RBC Morphology PT INR APTT Anion Gap Estim Creat Clear Calc Estimated GFR Random Glucose Lactic Acid Lactic Acid F/U @ 2Hr 1.9 Calcium Magnesium Total Bilirubin Direct Bilirubin AST ALT Alkaline Phosphatase Ammonia Total Creatine Kinase Total Protein Albumin Lipase Ethyl Alcohol COVID-19 (LOY) COVID-19 Clin Com Imaging Radiologist's Impressions: Impressions Foot CT 01/05/22 19:53 IMPRESSION: Edema and gas in the soft tissues around the great toe. Gas within the bone of the great toe. Findings consistent with osteomyelitis. This can be further assessed with MRI if clinically warranted. Assessment and Plan (1) Osteomyelitis: Qualifiers: Laterality: right Osteomyelitis location: foot Osteomyelitis type: other Qualified Code(s): M86.8X7 - Other osteomyelitis, ankle and foot Status: Acute (2) Wet gangrene: Status: Acute (3) Leukocytosis: Qualifiers: Leukocytosis type: bandemia Qualified Code(s): D72.825 - Bandemia Status: Acute (4) Obesity (BMI 30-39.9): Status: Acute (5) Fatty liver: Status: Acute (6) Hypertension: Status: Acute (7) Alcohol use: Status: Acute Plan This is a 61-year-old male with a pertinent history of essential hypertension, ?diet-controlled diabetes mellitus, alcohol use disorder who presents to the emergency department at the behest of his primary care physician for evaluation of right foot wound. #. Sepsis due to right foot gas gangrene and osteomyelitis -patient resuscitated with IV crystalloids and colloids in the ER. Will continue broad-spectrum antibiotics including clindamycin for evidence of gas in soft tissue. Dr. Green, general surgery has been consulted from the ER. Consulting Infectious Disease for recommendations. Blood pressure low normal due to sepsis, watch closely with low threshold to transfer to the ICU. Blood cultures and lactate obtained #. Type a lactic acidosis due to above #. Significant leukocytosis with bandemia #. Transaminitis due to sepsis in a patient with fatty liver #. Coagulopathy due to sepsis #. ?diet controlled diabetes mellitus -obtaining A1c #. Essential hypertension -hold home antihypertensives #. Alcohol use disorder -patient states his last drink was 2 weeks ago. Monitor for withdrawal but defer benzo treatment currently DVT prophylaxis: Holding Lovenox until surgical evaluation Diet: NPO after midnight until surgical evaluation Full code Patient will require two night minimum hospital stay for evaluation and management of sepsis due to gas gangrene and osteomyelitis. Also needs surgical evaluation and possible debridement Quality Stroke Does the patient have a stroke diagnosis?: No VTE Prior VTE?: No VTE Risk Level:: Medical - moderate - high VTE Device Contraindication: Treatment Not Indicated VTE Drug Contraindication: Treatment Not Indicated
[2022-01-06] MEDS: 0.9 % Sodium Chloride 500 ML IV (00:40)
--- NOTE | 2022-01-06 01:14 | PM.CNGS ---
History of Present Illness Consult details Consult date: 01/06/22 Requesting physician: Liz Fernandez Narrative: 61-year-old male patient presenting with an infection involving the right foot. He reports several injuries to the right foot including an injury from falling would to the great toe approximately 3 months ago.. He also notes a prior callus to the toe which he had been cleaning with peroxide. He initially denied any foot pain but over the past several days has had increased swelling and pain especially in the great toe. He usually wears steel-toed shoes at work and feels that this may have increased the pain as his foot swelled. He denies being diabetic but has been followed by Dr. Harper for his hyperglycemia. He denies any previous foot infections and denies any trauma to the left foot. His reports that she has been trying to get him to seek medical attention for several days regarding his foot. Admitting laboratories revealed a markedly elevated WBC. CT of the foot does reveal air in the soft tissue around the great toe including air in the metatarsal suggestive of osteomyelitis. Review of Systems Review of Systems: Yes all other systems are reviewed and are negative Musculoskeletal: Musculoskeletal: Reports as per HPI Comments: Foot pain PMFSH Past Medical History Medical History Cholelithiasis Elevated blood sugar Erectile dysfunction Fatty liver Hypercholesterolemia Hypertension Knee osteoarthritis Obesity (BMI 30-39.9) Thrombocytopenia Family History Family History Family/Other Medical history unknown Surgical History Surgical History History of left knee surgery Social History Social History Housing: House Patient Tobacco Use Status: Never used Tobacco e-Cigarette/Vaping Use: Never Used Second Hand Smoke Exposure: No Advance Directives: No Advance Directives Information Provided: No service: No Current occupational status: employed Cognitive needs: No Hearing needs: No Vision needs: Yes Meds Allergies Allergy/AdvReac Type Severity Reaction Status Date / Time No Known Allergies Allergy Verified 01/05/22 16:23 Active Medications: Current Medications Acetaminophen (Acetaminophen 325 Mg Tablet) 650 mg PO Q6H PRN PRN Reason: Pain, Mild (Pain Scale 1-3) Piperacillin Sod/Tazobactam (Sod 4.5 gm/ Sodium Chloride) 100 mls @ 200 mls/hr IV Q6H [facility] Clindamycin Phosphate (Cleocin) 900 mg in 50 mls @ 50 mls/hr IV Q8H [facility] Melatonin (Melatonin 3 Mg Tablet) 6 mg PO BEDTIME PRN PRN Reason: Insomnia Ondansetron HCl (Ondansetron Hcl 4 Mg/2 Ml Vial) 4 mg IVPUSH Q8H PRN PRN Reason: Nausea and Vomiting Pharmacy Consult (Consult Rx Perform Med Rec) 1 each MISCELLANE ONCE PRN PRN Reason: Consult order Pharmacy Consult (Consult Rx Vancomycin Dosing) 1 each MISCELLANE DAILY PRN PRN Reason: Consult order Sodium Chloride (0.9 % Sodium Chloride Flush 3 Ml Syringe) 3 ml IVFLUSH QSHIFT [facility] Last Admin: 01/06/22 00:16 Dose: Not Given Home Medications Medication Instructions Recorded Confirmed Last Taken Type hydrochlorothiazide 25 mg tablet 25 mg PO DAILY 01/05/22 01/05/22 01/05/22 History Physical Exam Vital Signs: Vital Signs: Last Vital Signs Temp 98.7 F 01/05/22 19:42 Pulse 76 01/06/22 00:14 Resp 22 H 01/06/22 00:14 BP 95/52 L 01/06/22 00:14 Pulse Ox 97 01/06/22 00:14 O2 Del Method 01/06/22 00:14 BMI result Body Mass Index 31.8 Const: General: no acute distress and well developed Nutritional Appearance: well nourished Orientation/consciousness: patient oriented x3 Limitations: no limitations HEENT: Head: Yes normocephalic and Yes atraumatic Ears: hearing grossly normal bilaterally Resp: Effort & Inspection: normal respiratory effort, no audible wheezes, no cough and no respiratory distress GI: Inspection: Yes normal to inspection Skin: Other: Warm, dry, no rash Neuro: General: patient oriented x3 Extrem: Other: Gangrenous changes involving the great toe with cellulitic changes extending up along the 1st and 2nd metatarsal on the dorsum. Edema is noted in the foot and ankle when compared to the left leg. Foul-smelling odor noted from the great toe. Ankle/foot/toe images: 1. Area of gangrene and cellulitis Results Labs Result diagrams: 01/05/22 17:55 01/05/22 17:55 Labs: Abnormal lab results 01/05/22 01/05/22 01/05/22 Range/Units 17:55 17:55 17:57 WBC 43.1 H* (4.8-10.8) X10*3/uL MCH 33.7 H (27.0-33.0) pg MCHC 37.1 H (31.0-36.0) g/dl Neutrophils % (Manual) 77 H (45-73) % Band Neutrophils % 17 H (3-5) % Lymphocytes % (Manual) 1 L (20-40) % Abs Neuts (Manual) 40.5 H (2.0-8.3) X10*3/uL Lymphocytes # (Manual) 0.4 L (1.2-4.9) X10*3/uL Monocytes # (Manual) 2.2 H (0.1-1.2) X10*3/uL PT (10.0-13.1) SEC INR (0.9-1.1) Sodium 131 L (135-145) mmol/L Carbon Dioxide 20 L (22-29) mmol/L BUN 20 H (9-16) mg/dL Random Glucose 150 H (60-115) mg/dL Lactic Acid 2.6 H* (0.5-2.0) mmol/L Total Bilirubin 4.3 H (0.0-1.0) mg/dL Direct Bilirubin 2.2 H (0.0-0.5) mg/dL AST 39 H (5-37) U/L Alkaline Phosphatase 121 H D (39-117) U/L Albumin 3.3 L (3.5-5.0) g/dL 01/05/22 Range/Units 19:03 WBC (4.8-10.8) X10*3/uL MCH (27.0-33.0) pg MCHC (31.0-36.0) g/dl Neutrophils % (Manual) (45-73) % Band Neutrophils % (3-5) % Lymphocytes % (Manual) (20-40) % Abs Neuts (Manual) (2.0-8.3) X10*3/uL Lymphocytes # (Manual) (1.2-4.9) X10*3/uL Monocytes # (Manual) (0.1-1.2) X10*3/uL PT 20.7 H (10.0-13.1) SEC INR 1.8 H (0.9-1.1) Sodium (135-145) mmol/L Carbon Dioxide (22-29) mmol/L BUN (9-16) mg/dL Random Glucose (60-115) mg/dL Lactic Acid (0.5-2.0) mmol/L Total Bilirubin (0.0-1.0) mg/dL Direct Bilirubin (0.0-0.5) mg/dL AST (5-37) U/L Alkaline Phosphatase (39-117) U/L Albumin (3.5-5.0) g/dL Short CBC 01/05/22 Range/Units 17:55 WBC 43.1 H* (4.8-10.8) X10*3/uL Hgb 15.6 (14.0-18.0) g/dl Hct 42.1 (42.0-52.0) % Plt Count 269 D (160-400) X10*3/uL BMP 01/05/22 17:55 Sodium 131 L Potassium 3.6 Chloride 96 Carbon Dioxide 20 L BUN 20 H Creatinine 1.40 Calcium 8.6 Cardiac Enzymes 01/05/22 Range/Units 17:55 Total Creatine Kinase 50 (38-174) U/L Liver Function 01/05/22 Range/Units 17:55 Total Bilirubin 4.3 H (0.0-1.0) mg/dL Direct Bilirubin 2.2 H (0.0-0.5) mg/dL AST 39 H (5-37) U/L ALT 37 (0-40) U/L Alkaline Phosphatase 121 H D (39-117) U/L Albumin 3.3 L (3.5-5.0) g/dL All other labs normal. Assessment and Plan (1) Leukocytosis: Qualifiers: Leukocytosis type: bandemia Qualified Code(s): D72.825 - Bandemia Status: Acute (2) Cellulitis of toe of right foot: Status: Acute (3) Osteomyelitis: Qualifiers: Laterality: right Osteomyelitis location: foot Osteomyelitis type: other Qualified Code(s): M86.8X7 - Other osteomyelitis, ankle and foot Status: Acute (4) Gangrene: Status: Acute Plan 61-year-old male patient with a neglected right great toe infection now presenting with gangrenous changes involving the great toe and probably 2nd toe. CT of the foot confirms osteomyelitis of the metatarsal and gas tracking along the soft tissues in the same location. Patient may have some underlying vascular disease given his diabetes. I recommended amputation of the 1st and 2nd toes and debridement of necrotic tissue tomorrow morning but he was warned that he may possibly require a below-knee amputation if the infection cannot be controlled. He had his expressed understanding and agree with the plan. I discussed the procedure, risks, and alternatives of amputation of the right 1st and 2nd toes with debridement of the foot, and he consents to the surgery. Procedures Date of Service Date of Service: 01/06/22
[2022-01-06] MEDS: Piperacillin Sodium/Tazobactam 4.5 GM in 0.9 % Sodium Chloride 100 ML IV ×4 (01:51→19:32)
[2022-01-06 01:57] LABS: Appearance Urine Clear; Color Urine Dark Yellow; Glucose Urine UA Negative (Negative); Leukocyte Esterase Urine Negative (Negative); Nitrite Urine Negative (Negative); PH 6.5 (5.0-9.0); Urine Blood Negative (Negative); Urine Ketones Negative (Negative); Urine Protein Negative (Neg-Trace)
[2022-01-06] MEDS: Albumin Human 25 % 100 ML IV (02:14)
[2022-01-06] MEDS: Clindamycin Phosphate/D5W 900 MG/50 ML PIGGYBACK 50 MG IV ×3 (02:14→20:53)
[2022-01-06] MEDS: Lactated Ringers 500 ML 999 ML IV (02:25)
[2022-01-06 07:14] LABS: MANUAL DIFF FLAG NO
[2022-01-06 07:17] LABS: Basophils Percent Auto 0.2 % (0-2); Eosinophils Percent Auto 0.2 % (0-4); Hematocrit 34.3 % (42.0-52.0); Hemoglobin 12.5 g/dl (14.0-18.0); Imm Gran Abs Auto 0.09 X10*3/uL (0.00-0.03); Imm Gran Pct Auto 0.5 % (0.0-0.4); Lymphocytes Absolute Auto 0.7 X10*3/uL (1.2-4.9); Lymphocytes Percent Auto 4.3 % (20-40); Mean Corpuscular HGB Conc 36.4 g/dl (31.0-36.0); Mean Corpuscular Hemoglobin 34.2 pg (27.0-33.0); Mean Corpuscular Volume 93.7 fL (80.0-98.0); Mean Platelet Volume 10.5 fL (9.4-12.4); Monocytes Absolute Auto 1.2 X10*3/uL (0.1-1.2); Monocytes Percent Auto 7.5 % (2-11); Neutrophils Absolute Auto 14.5 x10*3/uL (2.0-8.3); Neutrophils Percent Auto 87.3 % (45-73); Platelet Count 158 X10*3/uL (160-400); Red Blood Count 3.66 X10*6/uL (4.60-5.80); Red Cell Distribution Width 13.1 % (11.0-16.0); White Blood Count 16.6 X10*3/uL (4.8-10.8)
[2022-01-06] MEDS: 0.9 % Sodium Chloride Flush 3 ML SYRINGE IVFLUSH ×3 (07:35→19:39)
[2022-01-06 07:36] LABS: Anion Gap 14 (12-20); Blood Urea Nitrogen 17 mg/dL (9-16); Calcium 7.9 mg/dL (8.4-10.2); Carbon Dioxide 22 mmol/L (22-29); Chloride 101 mmol/L (96-108); Creatinine Clr Calc Pharmacy 126.8; Estimated Glomerular Filt Rate > 60; Glucose Random 115 mg/dL (60-115); Potassium 3.2 mmol/L (3.3-5.1); Sodium 134 mmol/L (135-145)
[2022-01-06 08:02] LABS: Estimated Average Glucose 108 mg/dL; Hemoglobin A1c % 5.4 %
--- NOTE | 2022-01-06 08:07 | PM.PNGS ---
Subjective Subjective Date of Service: 01/06/22 Interval history: Denies significant foot pain this morning. Anxiously awaiting surgery today. Physical Exam Vital Signs: Vital Signs: Last Vital Signs Temp 97.2 F 01/06/22 03:51 Pulse 75 01/06/22 03:51 Resp 18 01/06/22 03:51 BP 102/58 L 01/06/22 03:51 Pulse Ox 97 01/06/22 03:51 O2 Del Method 01/06/22 03:51 BMI result Body Mass Index 33.5 Const: General: comfortable and no acute distress Nutritional Appearance: well nourished Orientation/consciousness: patient oriented x3 Limitations: no limitations Resp: Effort & Inspection: normal respiratory effort, no audible wheezes, no cough and no respiratory distress GI: Inspection: Yes normal to inspection Skin: Other: Warm, dry, no rashes, right foot as noted below Neuro: General: patient oriented x3 Extrem: Other: Right foot wounds Objective Data Active Medications Acetaminophen (Acetaminophen 325 Mg Tablet) 650 mg PO Q6H PRN PRN Reason: Pain, Mild (Pain Scale 1-3) Piperacillin Sod/Tazobactam (Sod 4.5 gm/ Sodium Chloride) 100 mls @ 200 mls/hr IV Q6H REPLACED BY [facility] Last Infusion: 01/06/22 07:35 Dose: 0 mls/hr Documented By: LEON Clindamycin Phosphate (Cleocin) 900 mg in 50 mls @ 50 mls/hr IV Q8H REPLACED BY [facility] Last Infusion: 01/06/22 02:58 Dose: 0 mls/hr Documented By: CT Melatonin (Melatonin 3 Mg Tablet) 6 mg PO BEDTIME PRN PRN Reason: Insomnia Ondansetron HCl (Ondansetron Hcl 4 Mg/2 Ml Vial) 4 mg IVPUSH Q8H PRN PRN Reason: Nausea and Vomiting Pharmacy Consult (Consult Rx Perform Med Rec) 1 each MISCELLANE ONCE PRN PRN Reason: Consult order Pharmacy Consult (Consult Rx Vancomycin Dosing) 1 each MISCELLANE DAILY PRN PRN Reason: Consult order Sodium Chloride (0.9 % Sodium Chloride Flush 3 Ml Syringe) 3 ml IVFLUSH QSHIFT REPLACED BY [facility] Last Admin: 01/06/22 07:35 Dose: 3 ml Documented By: LEON Labs CBC & Chem 7: 01/06/22 05:55 01/06/22 05:55 Labs: Laboratory Results - last 24 hr 01/05/22 01/05/22 01/05/22 17:54 17:55 17:55 MCV 90.9 MCH 33.7 H MCHC 37.1 H RDW 12.8 Plt Count 269 D MPV 10.2 Immature Gran % (Auto) Cancelled Neut % (Auto) Cancelled Lymph % (Auto) Cancelled [place] % (Auto) Cancelled Eos % (Auto) Cancelled Baso % (Auto) Cancelled Lymph # (Auto) Cancelled [place] # (Auto) Cancelled Eos # (Auto) Cancelled Baso # (Auto) Cancelled Abs Immat Gran (auto) Cancelled Absolute Neuts (auto) Cancelled Absolute Nucleated RBC 0.000 Nucleated RBC % (auto) 0.0 Neutrophils % (Manual) 77 H Band Neutrophils % 17 H Lymphocytes % (Manual) 1 L Monocytes % (Manual) 5 Abs Neuts (Manual) 40.5 H Lymphocytes # (Manual) 0.4 L Monocytes # (Manual) 2.2 H Toxic Vacuolation PRESENT Platelet Estimate NORMAL Plt Morphology Comment NORMAL RBC Morphology NOTED PT INR APTT Anion Gap 19 Estim Creat Clear Calc 69.0 Estimated GFR 51 Random Glucose 150 H Estimat Average Glucose Hemoglobin A1c % Lactic Acid Lactic Acid F/U @ 2Hr Calcium 8.6 Magnesium 1.8 Total Bilirubin 4.3 H Direct Bilirubin 2.2 H AST 39 H ALT 37 Alkaline Phosphatase 121 H D Ammonia Total Creatine Kinase 50 Total Protein 7.3 Albumin 3.3 L Lipase 15 Urine Color Urine Appearance Urine pH Ur Specific [place] Urine Protein Urine Glucose (UA) Urine Ketones Urine Blood Urine Nitrite Ur Leukocyte Esterase Ethyl Alcohol < 10 COVID-19 (LOY) Negative COVID-19 Clin Com See Note 01/05/22 01/05/22 01/05/22 17:57 19:03 19:49 MCV MCH MCHC RDW Plt Count MPV Immature Gran % (Auto) Neut % (Auto) Lymph % (Auto) [place] % (Auto) Eos % (Auto) Baso % (Auto) Lymph # (Auto) [place] # (Auto) Eos # (Auto) Baso # (Auto) Abs Immat Gran (auto) Absolute Neuts (auto) Absolute Nucleated RBC Nucleated RBC % (auto) Neutrophils % (Manual) Band Neutrophils % Lymphocytes % (Manual) Monocytes % (Manual) Abs Neuts (Manual) Lymphocytes # (Manual) Monocytes # (Manual) Toxic Vacuolation Platelet Estimate Plt Morphology Comment RBC Morphology PT 20.7 H INR 1.8 H APTT 33.4 Anion Gap Estim Creat Clear Calc Estimated GFR Random Glucose Estimat Average Glucose Hemoglobin A1c % Lactic Acid 2.6 H* Lactic Acid F/U @ 2Hr Calcium Magnesium Total Bilirubin Direct Bilirubin AST ALT Alkaline Phosphatase Ammonia 46 Total Creatine Kinase Total Protein Albumin Lipase Urine Color Urine Appearance Urine pH Ur Specific [place] Urine Protein Urine Glucose (UA) Urine Ketones Urine Blood Urine Nitrite Ur Leukocyte Esterase Ethyl Alcohol COVID-19 ([facility]) [facility] 01/05/22 01/06/22 01/06/22 20:57 00:23 01:50 MCV MCH MCHC RDW Plt Count MPV Immature Gran % (Auto) Neut % (Auto) Lymph % (Auto) [place] % (Auto) Eos % (Auto) Baso % (Auto) Lymph # (Auto) [place] # (Auto) Eos # (Auto) Baso # (Auto) Abs Immat Gran (auto) Absolute Neuts (auto) Absolute Nucleated RBC Nucleated RBC % (auto) Neutrophils % (Manual) Band Neutrophils % Lymphocytes % (Manual) Monocytes % (Manual) Abs Neuts (Manual) Lymphocytes # (Manual) Monocytes # (Manual) Toxic Vacuolation Platelet Estimate Plt Morphology Comment RBC Morphology PT INR APTT Anion Gap Estim Creat Clear Calc Estimated GFR Random Glucose Estimat Average Glucose 108 Hemoglobin A1c % 5.4 Lactic Acid Lactic Acid F/U @ 2Hr 1.9 Calcium Magnesium Total Bilirubin Direct Bilirubin AST ALT Alkaline Phosphatase Ammonia Total Creatine Kinase Total Protein Albumin Lipase Urine Color Dark Yellow Urine Appearance Clear Urine pH 6.5 Ur Specific [place] 1.010 Urine Protein Negative Urine Glucose (UA) Negative Urine Ketones Negative Urine Blood Negative Urine Nitrite Negative Ur Leukocyte Esterase Negative Ethyl Alcohol COVID-19 (LO[facility]) [facility] 01/06/22 01/06/22 05:55 05:55 MCV 93.7 MCH 34.2 H MCHC 36.4 H RDW 13.1 Plt Count 158 L D MPV 10.5 Immature Gran % (Auto) 0.5 H Neut % (Auto) 87.3 H Lymph % (Auto) 4.3 L [place] % (Auto) 7.5 Eos % (Auto) 0.2 Baso % (Auto) 0.2 Lymph # (Auto) 0.7 L [place] # (Auto) 1.2 Eos # (Auto) 0.0 Baso # (Auto) 0.0 Abs Immat Gran (auto) 0.09 H Absolute Neuts (auto) 14.5 H Absolute Nucleated RBC 0.000 Nucleated RBC % (auto) 0.0 Neutrophils % (Manual) Band Neutrophils % Lymphocytes % (Manual) Monocytes % (Manual) Abs Neuts (Manual) Lymphocytes # (Manual) Monocytes # (Manual) Toxic Vacuolation Platelet Estimate Plt Morphology Comment RBC Morphology PT INR APTT Anion Gap 14 Estim Creat Clear Calc 126.8 Estimated GFR > 60 Random Glucose 115 Estimat Average Glucose Hemoglobin A1c % Lactic Acid Lactic Acid F/U @ 2Hr Calcium 7.9 L D Magnesium Total Bilirubin Direct Bilirubin AST ALT Alkaline Phosphatase Ammonia Total Creatine Kinase Total Protein Albumin Lipase Urine Color Urine Appearance Urine pH Ur Specific [place] Urine Protein Urine Glucose (UA) Urine Ketones Urine Blood Urine Nitrite Ur Leukocyte Esterase Ethyl Alcohol COVID-19 (LOY) COVID-19 Clin Com Procedures Date of Service Date of Service: 01/06/22 Progress Note: A&P Assessment and plan (1) Gangrene: Status: Acute (2) Osteomyelitis: Status: Acute (3) Cellulitis of toe of right foot: Status: Acute (4) Cellulitis of foot, right: Status: Acute Plan 61-year-old male patient presenting with of severe right foot infection with gangrene involving the great toe, marked leukocytosis, and lactic acidosis. Patient denies significant pain at this time. Laboratories revealed improved WBC and lactic acidosis. I recommended amputation of the great toe and 2nd toe with debridement of necrotic tissue of the right foot. After discussion of the procedure, risks, and alternatives, the patient consents to the surgery. He will be taken to the OR this morning for surgery. Time Spent With Patient Time: Total time spent is greater than 50% in coordination of care (as documented) at patient's floor/unit and/or counseling patient: Quality Stroke Does the patient have a stroke diagnosis?: No VTE Prior VTE?: No VTE Risk Level:: Medical - moderate - high VTE Device Contraindication: Treatment Not Indicated VTE Drug Contraindication: Treatment Not Indicated
--- NOTE | 2022-01-06 08:11 | P.PNIM_ITS ---
Subjective Subjective Date of Service: 01/06/22 Interval History: Seen in f/u for sepsis, osteomyllitis, gas gangrene of right foot.. interval hisotory: no fever, nl BP, 6/10 pain in the foot Review of Systems no fever pain in the foot Physical Exam Vital Signs: Vital Signs: Last Vital Signs Temp 97.2 F 01/06/22 03:51 Pulse 75 01/06/22 03:51 Resp 18 01/06/22 03:51 BP 102/58 L 01/06/22 03:51 Pulse Ox 97 01/06/22 03:51 O2 Del Method 01/06/22 03:51 BMI result Body Mass Index 33.5 Const: Other: General: AO X 3, no acute distress Resp: CTA bilateral CVS: S1,S2,RRR GI: +BS, NT, no distention Skin: see pictures Neuro: motor grossly intact Psych: appropriate affect Extrem: Other: Right foot wounds Objective Data Active Medications Acetaminophen (Acetaminophen 325 Mg Tablet) 650 mg PO Q6H PRN PRN Reason: Pain, Mild (Pain Scale 1-3) Piperacillin Sod/Tazobactam (Sod 4.5 gm/ Sodium Chloride) 100 mls @ 200 mls/hr IV Q6H [facility] Last Infusion: 01/06/22 07:35 Dose: 0 mls/hr Documented By: LEON Clindamycin Phosphate (Cleocin) 900 mg in 50 mls @ 50 mls/hr IV Q8H [facility] Last Infusion: 01/06/22 02:58 Dose: 0 mls/hr Documented By: CT Melatonin (Melatonin 3 Mg Tablet) 6 mg PO BEDTIME PRN PRN Reason: Insomnia Ondansetron HCl (Ondansetron Hcl 4 Mg/2 Ml Vial) 4 mg IVPUSH Q8H PRN PRN Reason: Nausea and Vomiting Pharmacy Consult (Consult Rx Perform Med Rec) 1 each MISCELLANE ONCE PRN PRN Reason: Consult order Pharmacy Consult (Consult Rx Vancomycin Dosing) 1 each MISCELLANE DAILY PRN PRN Reason: Consult order Sodium Chloride (0.9 % Sodium Chloride Flush 3 Ml Syringe) 3 ml IVFLUSH QSHIFT [facility] Last Admin: 01/06/22 07:35 Dose: 3 ml Documented By: LEON Labs CBC & Chem 7: 01/06/22 05:55 10/14/22 05:55 Labs: Laboratory Results - last 24 hr 01/05/22 01/05/22 01/05/22 17:54 17:55 17:55 MCV 90.9 MCH 33.7 H MCHC 37.1 H RDW 12.8 Plt Count 269 D MPV 10.2 Immature Gran % (Auto) Cancelled Neut % (Auto) Cancelled Lymph % (Auto) Cancelled [place] % (Auto) Cancelled Eos % (Auto) Cancelled Baso % (Auto) Cancelled Lymph # (Auto) Cancelled [place] # (Auto) Cancelled Eos # (Auto) Cancelled Baso # (Auto) Cancelled Abs Immat Gran (auto) Cancelled Absolute Neuts (auto) Cancelled Absolute Nucleated RBC 0.000 Nucleated RBC % (auto) 0.0 Neutrophils % (Manual) 77 H Band Neutrophils % 17 H Lymphocytes % (Manual) 1 L Monocytes % (Manual) 5 Abs Neuts (Manual) 40.5 H Lymphocytes # (Manual) 0.4 L Monocytes # (Manual) 2.2 H Toxic Vacuolation PRESENT Platelet Estimate NORMAL Plt Morphology Comment NORMAL RBC Morphology NOTED PT INR APTT Anion Gap 19 Estim Creat Clear Calc 69.0 Estimated GFR 51 Random Glucose 150 H Estimat Average Glucose Hemoglobin A1c % Lactic Acid Lactic Acid F/U @ 2Hr Calcium 8.6 Magnesium 1.8 Total Bilirubin 4.3 H Direct Bilirubin 2.2 H AST 39 H ALT 37 Alkaline Phosphatase 121 H D Ammonia Total Creatine Kinase 50 Total Protein 7.3 Albumin 3.3 L Lipase 15 Urine Color Urine Appearance Urine pH Ur Specific [place] Urine Protein Urine Glucose (UA) Urine Ketones Urine Blood Urine Nitrite Ur Leukocyte Esterase Ethyl Alcohol < 10 COVID-19 (LOY) Negative COVID-19 Clin Com See Note 01/05/22 01/05/22 01/05/22 17:57 19:03 19:49 MCV MCH MCHC RDW Plt Count MPV Immature Gran % (Auto) Neut % (Auto) Lymph % (Auto) [place] % (Auto) Eos % (Auto) Baso % (Auto) Lymph # (Auto) [place] # (Auto) Eos # (Auto) Baso # (Auto) Abs Immat Gran (auto) Absolute Neuts (auto) Absolute Nucleated RBC Nucleated RBC % (auto) Neutrophils % (Manual) Band Neutrophils % Lymphocytes % (Manual) Monocytes % (Manual) Abs Neuts (Manual) Lymphocytes # (Manual) Monocytes # (Manual) Toxic Vacuolation Platelet Estimate Plt Morphology Comment RBC Morphology PT 20.7 H INR 1.8 H APTT 33.4 Anion Gap Estim Creat Clear Calc Estimated GFR Random Glucose Estimat Average Glucose Hemoglobin A1c % Lactic Acid 2.6 H* Lactic Acid F/U @ 2Hr Calcium Magnesium Total Bilirubin Direct Bilirubin AST ALT Alkaline Phosphatase Ammonia 46 Total Creatine Kinase Total Protein Albumin Lipase Urine Color Urine Appearance Urine pH Ur Specific [place] Urine Protein Urine Glucose (UA) Urine Ketones Urine Blood Urine Nitrite Ur Leukocyte Esterase Ethyl Alcohol COVID-19 (LOY) [facility] 01/05/22 01/06/22 01/06/22 20:57 00:23 01:50 MCV MCH MCHC RDW Plt Count MPV Immature Gran % (Auto) Neut % (Auto) Lymph % (Auto) [place] % (Auto) Eos % (Auto) Baso % (Auto) Lymph # (Auto) [place] # (Auto) Eos # (Auto) Baso # (Auto) Abs Immat Gran (auto) Absolute Neuts (auto) Absolute Nucleated RBC Nucleated RBC % (auto) Neutrophils % (Manual) Band Neutrophils % Lymphocytes % (Manual) Monocytes % (Manual) Abs Neuts (Manual) Lymphocytes # (Manual) Monocytes # (Manual) Toxic Vacuolation Platelet Estimate Plt Morphology Comment RBC Morphology PT INR APTT Anion Gap Estim Creat Clear Calc Estimated GFR Random Glucose Estimat Average Glucose 108 Hemoglobin A1c % 5.4 Lactic Acid Lactic Acid F/U @ 2Hr 1.9 Calcium Magnesium Total Bilirubin Direct Bilirubin AST ALT Alkaline Phosphatase [place] Total Creatine Kinase Total Protein Albumin Lipase Urine Color Dark Yellow Urine Appearance Clear Urine pH 6.5 Ur Specific [place] 1.010 Urine Protein Negative Urine Glucose (UA) Negative Urine Ketones Negative Urine Blood Negative Urine Nitrite Negative Ur Leukocyte Esterase Negative Ethyl Alcohol COVID-19 (LOY) [facility] 01/06/22 01/06/22 05:55 05:55 MCV 93.7 MCH 34.2 H MCHC 36.4 H RDW 13.1 Plt Count 158 L D MPV 10.5 Immature Gran % (Auto) 0.5 H Neut % (Auto) 87.3 H Lymph % (Auto) 4.3 L [place] % (Auto) 7.5 Eos % (Auto) 0.2 Baso % (Auto) 0.2 Lymph # (Auto) 0.7 L [place] # (Auto) 1.2 Eos # (Auto) 0.0 Baso # (Auto) 0.0 Abs Immat Gran (auto) 0.09 H Absolute Neuts (auto) 14.5 H Absolute Nucleated RBC 0.000 Nucleated RBC % (auto) 0.0 Neutrophils % (Manual) Band Neutrophils % Lymphocytes % (Manual) Monocytes % (Manual) Abs Neuts (Manual) Lymphocytes # (Manual) Monocytes # (Manual) Toxic Vacuolation Platelet Estimate Plt Morphology Comment RBC Morphology PT INR APTT Anion Gap 14 Estim Creat Clear Calc 126.8 Estimated GFR > 60 Random Glucose 115 Estimat Average Glucose Hemoglobin A1c % Lactic Acid Lactic Acid F/U @ 2Hr Calcium 7.9 L D Magnesium Total Bilirubin Direct Bilirubin AST ALT Alkaline Phosphatase [place] Total Creatine Kinase Total Protein Albumin Lipase Urine Color Urine Appearance Urine pH Ur Specific [place] Urine Protein Urine Glucose (UA) Urine Ketones Urine Blood Urine Nitrite Ur Leukocyte Esterase Ethyl Alcohol COVID-19 (LOY) COVID-19 Clin Com Assessment and Plan (1) Gangrene: Status: Acute (2) Cellulitis of foot, right: Status: Acute (3) Osteomyelitis: Status: Acute Plan 61-year-old male with a pertinent history of essential hypertension, ?diet- controlled diabetes mellitus, alcohol use disorder who presents to the emergency department at the behest of his primary care physician for evaluation of right foot wound. #.? Sepsis due to right foot gas gangrene and osteomyelitis--initially low BP but now normal ( was reviewed by ICU) -Continue IV Clinda and Zosyn -For surgical debridment in OR by Dr. Green -ID consult #.? Type a lactic acidosis due to above #.? Significant leukocytosis with bandemia improved from 43 to 16 #.? Transaminitis due to sepsis in a patient with fatty liver #.? Coagulopathy due to sepsis #. ?diet controlled diabetes mellitus -A1c is 5.4 #.? Essential hypertension -hold home antihypertensives #.? Alcohol use disorder -patient states his last drink was 2 weeks ago.? Monitor for withdrawal but defer benzo treatment currently DVT prophylaxis:? Holding Lovenox until surgery Diet:? NPO for surgery Full code Need for inpatient: Sepsis d/t osteomylitis, gas gangrene that needs surgical intervention Quality Stroke Does the patient have a stroke diagnosis?: No VTE Prior VTE?: No VTE Risk Level:: Medical - moderate - high VTE Device Contraindication: Treatment Not Indicated VTE Drug Contraindication: Treatment Not Indicated
[2022-01-06 08:39] LABS: Creatinine Clr Calc Pharmacy 133.7; Estimated Glomerular Filt Rate > 60
--- NOTE | 2022-01-06 08:50 | PHA.PROG ---
Admission Date/Time: January 05, 2022 23:54 Indication: SKIN/SKIN STRUCTURE Weight in k kg Adjusted body weight in K.36 Rawlings body weight in Kg: Obesity Dosing Indication % IBW: Serum Creatinine - Last 168 Hours 01/05/22 01/06/22 01/06/22 17:55 05:55 08:02 Creatinine 1.40 0.78 0.74 Estimated CrCl and GFR - Last 168 Hours 01/05/22 01/06/22 01/06/22 17:55 05:55 08:02 Estim Creat Clear Calc 69.0 126.8 133.7 Estimated GFR 51 > 60 > 60 Vancomycin Loading Dose: 2000MG Current Vancomycin Dosing Regimen: 1250MG Q12H Vancomycin Monitoring using AUC goal of 400 - 600 range with trough as surrogate marker: AUC 556, TROUGH 15.5 Date and Time for next Vancomycin Level to be drawn: 01/07@0700 Pharmacist Comments on Vancomycin Plan: Vancomycin dosing will take advantage of [employer] as a clinical decision support tool that uses Bayesian modeling to calculate individual patient's pharmacokinetic parameters and forecast the patient's drug concentration time course with the target goal AUC 24 range of 400 - 600 mg/L/hr.
--- NOTE | 2022-01-06 10:10 | HO.ANESPROP2 ---
HPI - Anesthesia Eval Consult details Narrative: Right foot gangrene PMFSH Active Problems Active Problems: All Active Problems (Updated 01/06/22 @ 08:51 by Lorena Rodriguez RN) Annual physical exam (Acute) Fatty liver (Acute) Guaiac + stool (Acute) Constipation (Acute) Colon cancer screening (Acute) Colonoscopy refused (Acute) Eye exam, routine (Acute) Lesion of right eyelid (Acute) Type 2 diabetes mellitus with hyperglycemia (Acute) Osteoarthritis of left knee (Acute) Cellulitis of toe of right foot (Acute) Leukocytosis (Acute) Bandemia (Acute) Elevated bilirubin (Acute) Acidosis, lactic (Acute) Cellulitis of foot, right (Acute) Gangrene (Acute) Osteomyelitis (Acute) Wet gangrene (Acute) Alcohol use (Acute) Hypertension (Acute) Erectile dysfunction (Acute) Thrombocytopenia (Acute) Hypercholesterolemia (Acute) Obesity (BMI 30-39.9) (Acute) Past Medical History Medical History Cholelithiasis Elevated blood sugar Erectile dysfunction Fatty liver Hypercholesterolemia Hypertension Knee osteoarthritis Obesity (BMI 30-39.9) Thrombocytopenia Family History Family History Family/Other Medical history unknown Family history of problems with anesthesia: No Surgical History Surgical History History of left knee surgery Hx of colonoscopy History of Problems with Anesthesia: No Social History Social History Household Members: Spouse Housing: House Patient Tobacco Use Status: Never used Tobacco e-Cigarette/Vaping Use: Never Used Second Hand Smoke Exposure: No service: No Current occupational status: employed Cognitive needs: No Hearing needs: No Vision needs: Yes Meds Allergies Allergy/AdvReac Type Severity Reaction Status Date / Time No Known Allergies Allergy Verified 01/05/22 16:23 Active Medications: Current Medications Acetaminophen (Acetaminophen 325 Mg Tablet) 650 mg PO Q6H PRN PRN Reason: Pain, Mild (Pain Scale 1-3) Piperacillin Sod/Tazobactam (Sod 4.5 gm/ Sodium Chloride) 100 mls @ 200 mls/hr IV Q6H [facility] Last Infusion: 01/06/22 07:35 Dose: Infused Clindamycin Phosphate (Cleocin) 900 mg in 50 mls @ 50 mls/hr IV Q8H [facility] Last Infusion: 01/06/22 02:58 Dose: Infused Vancomycin HCl 1,250 mg/ (Sodium Chloride) 250 mls @ 166.667 mls/hr IV Q12H [facility] Melatonin (Melatonin 3 Mg Tablet) 6 mg PO BEDTIME PRN PRN Reason: Insomnia Ondansetron HCl (Ondansetron Hcl 4 Mg/2 Ml Vial) 4 mg IVPUSH Q8H PRN PRN Reason: Nausea and Vomiting Pharmacy Consult (Consult Rx Perform Med Rec) 1 each MISCELLANE ONCE PRN PRN Reason: Consult order Pharmacy Consult (Consult Rx Vancomycin Dosing) 1 each MISCELLANE DAILY PRN PRN Reason: Consult order Sodium Chloride (0.9 % Sodium Chloride Flush 3 Ml Syringe) 3 ml IVFLUSH QSHIFT [facility] Last Admin: 01/06/22 07:35 Dose: 3 ml Home Medications Medication Instructions Recorded Confirmed Last Taken Type hydrochlorothiazide 25 mg tablet 25 mg PO DAILY 01/05/22 01/05/22 01/05/22 History Exam Exam Date and Time: January 06, 2022 1010 Height,Weight and Vital Signs: Height 6 ft Weight 112 kg Last Vital Signs Temp 98.7 F 01/06/22 08:53 Pulse 75 01/06/22 08:53 Resp 16 01/06/22 08:53 BP 97/56 L 01/06/22 08:53 Pulse Ox 95 01/06/22 08:53 O2 Del Method 01/06/22 08:53 Pertinent Lab Results Pertinent Lab Results: Laboratory Tests 01/05/22 01/05/22 01/05/22 17:54 17:55 17:55 WBC 43.1 H* RBC 4.63 Hgb 15.6 Hct 42.1 MCV 90.9 MCH 33.7 H MCHC 37.1 H RDW 12.8 Plt Count 269 D MPV 10.2 Immature Gran % (Auto) Cancelled Neut % (Auto) Cancelled Lymph % (Auto) Cancelled Ross % (Auto) Cancelled Eos % (Auto) Cancelled Baso % (Auto) Cancelled Lymph # (Auto) Cancelled Ross # (Auto) Cancelled Eos # (Auto) Cancelled Baso # (Auto) Cancelled Abs Immat Gran (auto) Cancelled Absolute Neuts (auto) Cancelled Absolute Nucleated RBC 0.000 Nucleated RBC % (auto) 0.0 Neutrophils % (Manual) 77 H Band Neutrophils % 17 H Lymphocytes % (Manual) 1 L Monocytes % (Manual) 5 Abs Neuts (Manual) 40.5 H Lymphocytes # (Manual) 0.4 L Monocytes # (Manual) 2.2 H Toxic Vacuolation PRESENT Platelet Estimate NORMAL Plt Morphology Comment NORMAL RBC Morphology NOTED Smear Path Review SEE NOTE PT INR APTT Sodium 131 L Potassium 3.6 Chloride 96 Carbon Dioxide 20 L Anion Gap 19 BUN 20 H Creatinine 1.40 Estim Creat Clear Calc 69.0 Estimated GFR 51 Random Glucose 150 H Estimat Average Glucose Hemoglobin A1c % Lactic Acid Lactic Acid F/U @ 2Hr Calcium 8.6 Magnesium 1.8 Total Bilirubin 4.3 H Direct Bilirubin 2.2 H AST 39 H ALT 37 Alkaline Phosphatase 121 H D Ammonia Total Creatine Kinase 50 Total Protein 7.3 Albumin 3.3 L Lipase 15 Urine Color Urine Appearance Urine pH Ur Specific [place] Urine Protein Urine Glucose (UA) Urine Ketones Urine Blood Urine Nitrite Ur Leukocyte Esterase Ethyl Alcohol < 10 COVID-19 (LOY) Negative COVID-19 Clin Com See Note 01/05/22 01/05/22 01/05/22 17:57 19:03 19:49 WBC RBC Hgb Hct MCV MCH MCHC RDW Plt Count MPV Immature Gran % (Auto) Neut % (Auto) Lymph % (Auto) [place] % (Auto) Eos % (Auto) Baso % (Auto) Lymph # (Auto) [place] # (Auto) Eos # (Auto) Baso # (Auto) Abs Immat Gran (auto) Absolute Neuts (auto) Absolute Nucleated RBC Nucleated RBC % (auto) Neutrophils % (Manual) Band Neutrophils % Lymphocytes % (Manual) Monocytes % (Manual) Abs Neuts (Manual) Lymphocytes # (Manual) Monocytes # (Manual) Toxic Vacuolation Platelet Estimate Plt Morphology Comment RBC Morphology Smear Path Review PT 20.7 H INR 1.8 H APTT 33.4 Sodium Potassium Chloride Carbon Dioxide Anion Gap BUN Creatinine Estim Creat Clear Calc Estimated GFR Random Glucose Estimat Average Glucose Hemoglobin A1c % Lactic Acid 2.6 H* Lactic Acid F/U @ 2Hr Calcium Magnesium Total Bilirubin Direct Bilirubin AST ALT Alkaline Phosphatase Ammonia 46 Total Creatine Kinase Total Protein Albumin Lipase Urine Color Urine Appearance Urine pH Ur Specific [place] Urine Protein Urine Glucose (UA) Urine Ketones Urine Blood Urine Nitrite Ur Leukocyte Esterase Ethyl Alcohol COVID-19 (LOY) COVID-19 Clin Com 01/05/22 01/06/22 01/06/22 20:57 00:23 01:50 WBC RBC Hgb Hct MCV MCH MCHC RDW Plt Count MPV Immature Gran % (Auto) Neut % (Auto) Lymph % (Auto) [place] % (Auto) Eos % (Auto) Baso % (Auto) Lymph # (Auto) [place] # (Auto) Eos # (Auto) Baso # (Auto) Abs Immat Gran (auto) Absolute Neuts (auto) Absolute Nucleated RBC Nucleated RBC % (auto) Neutrophils % (Manual) Band Neutrophils % Lymphocytes % (Manual) Monocytes % (Manual) Abs Neuts (Manual) Lymphocytes # (Manual) Monocytes # (Manual) Toxic Vacuolation Platelet Estimate Plt Morphology Comment RBC Morphology Smear Path Review PT INR APTT Sodium Potassium Chloride Carbon Dioxide Anion Gap BUN Creatinine Estim Creat Clear Calc Estimated GFR Random Glucose Estimat Average Glucose 108 Hemoglobin A1c % 5.4 Lactic Acid Lactic Acid F/U @ 2Hr 1.9 Calcium Magnesium Total Bilirubin Direct Bilirubin AST ALT Alkaline Phosphatase Ammonia Total Creatine Kinase Total Protein Albumin Lipase Urine Color Dark Yellow Urine Appearance Clear Urine pH 6.5 Ur Specific [place] 1.010 Urine Protein Negative Urine Glucose (UA) Negative Urine Ketones Negative Urine Blood Negative Urine Nitrite Negative Ur Leukocyte Esterase Negative Ethyl Alcohol COVID-19 (LOY) COVID-19 Clin Com 01/06/22 01/06/22 01/06/22 05:55 05:55 08:02 WBC 16.6 H RBC 3.66 L D Hgb 12.5 L Hct 34.3 L MCV 93.7 MCH 34.2 H MCHC 36.4 H RDW 13.1 Plt Count 158 L D MPV 10.5 Immature Gran % (Auto) 0.5 H Neut % (Auto) 87.3 H Lymph % (Auto) 4.3 L [place] % (Auto) 7.5 Eos % (Auto) 0.2 Baso % (Auto) 0.2 Lymph # (Auto) 0.7 L [place] # (Auto) 1.2 Eos # (Auto) 0.0 Baso # (Auto) 0.0 Abs Immat Gran (auto) 0.09 H Absolute Neuts (auto) 14.5 H Absolute Nucleated RBC 0.000 Nucleated RBC % (auto) 0.0 Neutrophils % (Manual) Band Neutrophils % Lymphocytes % (Manual) Monocytes % (Manual) Abs Neuts (Manual) Lymphocytes # (Manual) Monocytes # (Manual) Toxic Vacuolation Platelet Estimate Plt Morphology Comment RBC Morphology Smear Path Review PT INR APTT Sodium 134 L Potassium 3.2 L Chloride 101 Carbon Dioxide 22 Anion Gap 14 BUN 17 H Creatinine 0.78 0.74 Estim Creat Clear Calc 126.8 133.7 Estimated GFR > 60 > 60 Random Glucose 115 Estimat Average Glucose Hemoglobin A1c % Lactic Acid Lactic Acid F/U @ 2Hr Calcium 7.9 L D Magnesium Total Bilirubin Direct Bilirubin AST ALT Alkaline Phosphatase Ammonia Total Creatine Kinase Total Protein Albumin Lipase Urine Color Urine Appearance Urine pH Ur Specific [place] Urine Protein Urine Glucose (UA) Urine Ketones Urine Blood Urine Nitrite Ur Leukocyte Esterase Ethyl Alcohol COVID-19 (LOY) COVID-19 Clin Com Airway Mallampati Class: III TM Dist: >3cm Neck ROM: Full Loose/Missing/Broken Teeth: Yes Heart: [id number] Lungs: cta b/l Assessment and Plan Assessment Anesthesia Assessment: Anesthesia Plan Discussed and Chart Reviewed Final Anesthetic Review Family History of Problems with Anesthesia: No History of Problems with Anesthesia: No NPO: Yes ASA Class: III and Emergency Final Preanesthetic Review: No Changes in Pt Med Stat, Meds/Allgs Chart Reviewed, Consent Obtained/Reviewed and Anes Risks/Benef Reviewed Patient Risk: Intermediate Procedure Risk: Intermediate Assessment/Block/Sedation in SS: Assess/Block/Sedation-SS Anesthetic Plan Anesthetic Plan: GA and Agree w/ Assess. and Plan Disposition: Standard PACU
--- NOTE | 2022-01-06 10:54 | W.PM.OPN ---
Operative Note Operative Note Date of Service: 01/06/22 Narrative: Preoperative diagnosis: Gangrene right foot Postoperative diagnosis: same Procedure: amputation of right great toe and 2nd toe with debridement right foot Surgeon: Sandro Green MD Stitching Machine Setter: Cherise Tolentino PA-C Anesthesia: general Indications for procedure: 61-year-old male patient presenting with a gangrene of the right great toe with CT revealing air within the bone just above osteomyelitis. Infection also involved 2nd toe along of the metatarsal. Presents now for amputation of the right great toe and 2nd toe. Operative findings: Necrotic skin and subcutaneous tissue over the 1st and 2nd toes. Bleeding from surrounding tissue noted. No definite abscess collection identified. Specimen: Right 1st and 2nd toe Estimated blood loss: 30 mL Complications: none Procedure details: patient was brought to the OR placed in a supine position. After administering general anesthesia the patient's right foot was prepped with Betadine and draped in a sterile fashion. A surgical time-out was called the consent confirmed. Patient received preoperative antibiotics and Venodyne boots were placed on the left leg. Local anesthesia was infiltrated as a digital block between the webspace of the 2nd and 1st toes. An elliptical incision was made around the great toe extending up over the metatarsal and around the webspace of the 2nd toe. Incision was carried down through the subcutaneous tissue. Hemostasis was assured all times using electrocautery. Dissection was continued down to the metatarsal. Metatarsal was further defined using a Way elevator. Dissection was continued down proximally to viable skin and bone. A oscillating saw was used to amputate the 1st and 2nd metatarsal proximally. Strong adequate bone was identified at this location. The specimen was passed off the table and sent to pathology for further examination. Wounds were then irrigated with saline solution and suctioned dry. Wounds were again checked for hemostasis with electrocautery. Wounds were again irrigated with hydrogen peroxide and then packed with Betadine-soaked gauze followed by left gauze, ABD pads and a Kerlix bandage. Patient tolerated the procedure well. Sponge, instrument, needle counts reported as correct. The patient was transferred to PACU in stable condition.
--- NOTE | 2022-01-06 11:58 | HE.PHANOTE ---
GREGORIO CONTRERAS PT WAS IN SURGERY, TROUGH RETIMED
[2022-01-06] MEDS: vancomycin HCL 1,250 MG in 0.9 % Sodium Chloride 250 ML 166.67 MG IV (12:05)
--- NOTE | 2022-01-06 14:25 | MHC.CM.PN ---
Male 61 DX foot infection Gangrene+ S/P toes amp today. He lives with his . He is independent and works @ [employer] [place]. DP home with LT IV ABX. Referrals sent to [facility], patient preferences. Patient's will provide transportation home. A HCP was documented and placed on the chart. The patient has been vax x3 Pfizer.
--- NOTE | 2022-01-06 15:46 | P.CNID_ITS ---
History of Present Illness Data of Consult Service Date: 01/06/22 Requesting physician: Trini Chinchilla Primary Care Provider: MD MANA Figueroa Reason for consult: gangrene and gas right foot He presents to ER with discomfort and swelling right great toe. He has gas in XRay foot and bone. He is seeing Surgery He has had symptoms for three weeks. Review of Systems Review of Systems: Yes all other systems are reviewed and are negative PMFSH Past Medical History Medical History Cholelithiasis Elevated blood sugar Erectile dysfunction Fatty liver Hypercholesterolemia Hypertension Knee osteoarthritis Obesity (BMI 30-39.9) Thrombocytopenia Family History Family History Family/Other Medical history unknown Family history: reviewed and not pertinent Surgical History Surgical History History of left knee surgery Hx of colonoscopy Social History Social History Household Members: Spouse Housing: House Patient Tobacco Use Status: Never used Tobacco e-Cigarette/Vaping Use: Never Used Second Hand Smoke Exposure: No service: No Current occupational status: employed Cognitive needs: No Hearing needs: No Vision needs: Yes Meds Allergies Allergy/AdvReac Type Severity Reaction Status Date / Time No Known Allergies Allergy Verified 01/05/22 16:23 Active Medications: Current Medications Acetaminophen (Acetaminophen 325 Mg Tablet) 650 mg PO Q6H PRN PRN Reason: Pain, Mild (Pain Scale 1-3) Hydromorphone HCl (Hydromorphone Hcl 0.5 Mg/0.5 Ml Syringe) 0.5 mg IVPUSH Q2H PRN; Protocol PRN Reason: Pain, Severe (Pain Scale 7-10) Piperacillin Sod/Tazobactam (Sod 4.5 gm/ Sodium Chloride) 100 mls @ 200 mls/hr IV Q6H [facility] Last Infusion: 01/06/22 14:24 Dose: Infused Vancomycin HCl 1,250 mg/ (Sodium Chloride) 250 mls @ 166.667 mls/hr IV Q12H [facility] Last Infusion: 01/06/22 13:50 Dose: Infused Clindamycin Phosphate (Cleocin) 900 mg in 50 mls @ 50 mls/hr IV Q8H [facility] Last Infusion: 01/06/22 15:29 Dose: Infused Melatonin (Melatonin 3 Mg Tablet) 6 mg PO BEDTIME PRN PRN Reason: Insomnia Ondansetron HCl (Ondansetron Hcl 4 Mg/2 Ml Vial) 4 mg IVPUSH Q8H PRN PRN Reason: Nausea and Vomiting Oxycodone HCl (Oxycodone Hcl Immed Release 5 Mg Tablet) 5 mg PO Q4H PRN PRN Reason: Pain, Moderate (Pain Scale 4-6 Pharmacy Consult (Consult Rx Perform Med Rec) 1 each MISCELLANE ONCE PRN PRN Reason: Consult order Pharmacy Consult (Consult Rx Vancomycin Dosing) 1 each MISCELLANE DAILY PRN PRN Reason: Consult order Sodium Chloride (0.9 % Sodium Chloride Flush 3 Ml Syringe) 3 ml IVFLUSH QSHIFT [facility] Last Admin: 01/06/22 15:28 Dose: 3 ml Home Medications Medication Instructions Recorded Confirmed Last Taken Type hydrochlorothiazide 25 mg tablet 25 mg PO DAILY 01/05/22 01/05/22 01/05/22 History Physical Exam Vital Signs: Vital Signs: Last Vital Signs Temp 98.3 F 01/06/22 15:09 Pulse 82 01/06/22 15:09 Resp 18 01/06/22 15:09 BP 98/55 L 01/06/22 15:09 Pulse Ox 95 01/06/22 15:09 O2 Del Method 01/06/22 15:09 O2 Flow Rate 2 01/06/22 11:14 BMI result Body Mass Index 33.5 Const: General: cooperative HEENT: Head: Yes normal to inspection Face and sinus: Yes normal facial exam Mouth: Normal oral and palatal mucosa present Teeth and gingiva: dentition normal Eyes: General: appearance normal, both eyes and all related structures Pupils: Equal, round and reactive pupils present Resp: Effort & Inspection: normal respiratory effort Cardio: Rate: regular rate Rhythm: regular rhythm GI: Palpation (GI): Soft to palpation and nontender : General: Yes no CVA tenderness Back/Spine/Pelvis: Back: no CVA tenderness Skin: General skin exam: no rashes or lesions noted Neuro: General: moves all extremities Cranial nerves: Yes Equal, round and reactive pupils present Extrem: Other: right foot swollen,wrapped Psych: Appearance: grossly normal Results Labs CBC & Chem 7: 01/06/22 05:55 01/06/22 08:02 Labs: Short CBC 01/05/22 01/06/22 Range/Units 17:55 05:55 WBC 43.1 H* 16.6 H (4.8-10.8) X10*3/uL Hgb 15.6 12.5 L (14.0-18.0) g/dl Hct 42.1 34.3 L (42.0-52.0) % Plt Count 269 D 158 L D (160-400) X10*3/uL BMP 01/05/22 01/06/22 01/06/22 17:55 05:55 08:02 Sodium 131 L 134 L Potassium 3.6 3.2 L Chloride 96 101 Carbon Dioxide 20 L 22 BUN 20 H 17 H Creatinine 1.40 0.78 0.74 Calcium 8.6 7.9 L D Cardiac Enzymes 01/05/22 Range/Units 17:55 Total Creatine Kinase 50 (38-174) U/L Liver Function 01/05/22 Range/Units 17:55 Total Bilirubin 4.3 H (0.0-1.0) mg/dL Direct Bilirubin 2.2 H (0.0-0.5) mg/dL AST 39 H (5-37) U/L ALT 37 (0-40) U/L Alkaline Phosphatase 121 H D (39-117) U/L Albumin 3.3 L (3.5-5.0) g/dL Urine 01/06/22 Range/Units 01:50 Urine Color Dark Yellow Urine Appearance Clear Urine pH 6.5 (5.0-9.0) Ur Specific [place] 1.010 (1.005-1.025) Urine Protein Negative (Neg-Trace) mg/dL Urine Glucose (UA) Negative (Negative) mg/dL Assessment and Plan (1) Gangrene: Status: Acute (2) Osteomyelitis: Qualifiers: Laterality: right Osteomyelitis location: foot Osteomyelitis type: other Qualified Code(s): M86.8X7 - Other osteomyelitis, ankle and foot Status: Acute He has necrotic foot and has blood cultures pending. He has possible gram negative,gram positive. (3) Wet gangrene: Status: Acute Plan Continue Vancomycin,Zosyn and can continue Clindamycin to help halt bacterial burden and toxin production. He will likely need six weeks IV antibiotics on discharge. Surgery followup
[2022-01-07] MEDS: vancomycin HCL 1,250 MG in 0.9 % Sodium Chloride 250 ML 166.67 MG IV (00:05)
[2022-01-07] MEDS: Piperacillin Sodium/Tazobactam 4.5 GM in 0.9 % Sodium Chloride 100 ML IV ×4 (01:43→18:49)
[2022-01-07 04:00] VITALS: BP 105/66; PULSE 66; RESP 17; TEMP 36.3; O2SAT 94
[2022-01-07] MEDS: Clindamycin Phosphate/D5W 900 MG/50 ML PIGGYBACK 50 MG IV (04:49)
[2022-01-07 06:08] LABS: Creatinine Clr Calc Pharmacy 141.3; Estimated Glomerular Filt Rate > 60
--- NOTE | 2022-01-07 07:17 | HO.PM.IMPN ---
Subjective Subjective Date of Service: 01/08/22 Interval History: Seen in f/u for sepsis, osteomyllitis, gas gangrene of right foot and gram negative fadi bacteremia interval hisotory: s/p amputation of right great toe and 2nd toe with debridement right foot on 01/06 Review of Systems no fever pain in the foot Physical Exam Vital Signs: Vital Signs: Last Vital Signs Temp 97.3 F 01/07/22 04:00 Pulse 66 01/07/22 04:00 Resp 17 01/07/22 04:00 BP 105/66 01/07/22 04:00 Pulse Ox 94 01/07/22 04:00 O2 Del Method 01/07/22 04:00 O2 Flow Rate 2 01/06/22 11:14 BMI result Body Mass Index 33.5 Const: Other: General: AO X 3, no acute distress Resp: CTA bilateral CVS: S1,S2,RRR GI: +BS, NT, no distention Skin: see pictures Neuro: motor grossly intact Psych: appropriate affect Objective Data Active Medications Acetaminophen (Acetaminophen 325 Mg Tablet) 650 mg PO Q6H PRN PRN Reason: Pain, Mild (Pain Scale 1-3) Hydromorphone HCl (Hydromorphone Hcl 0.5 Mg/0.5 Ml Syringe) 0.5 mg IVPUSH Q2H PRN; Protocol PRN Reason: Pain, Severe (Pain Scale 7-10) Piperacillin Sod/Tazobactam (Sod 4.5 gm/ Sodium Chloride) 100 mls @ 200 mls/hr IV Q6H [facility] Last Infusion: 01/07/22 07:14 Dose: 0 mls/hr Documented By: SOHAIL Vancomycin HCl 1,250 mg/ (Sodium Chloride) 250 mls @ 166.667 mls/hr IV Q12H [facility] Last Infusion: 01/07/22 01:53 Dose: 0 mls/hr Documented By: SOHAIL Clindamycin Phosphate (Cleocin) 900 mg in 50 mls @ 50 mls/hr IV Q8H [facility] Last Infusion: 01/07/22 06:15 Dose: 0 mls/hr Documented By: MORRINShaheed Melatonin (Melatonin 3 Mg Tablet) 6 mg PO BEDTIME PRN PRN Reason: Insomnia Ondansetron HCl (Ondansetron Hcl 4 Mg/2 Ml Vial) 4 mg IVPUSH Q8H PRN PRN Reason: Nausea and Vomiting Oxycodone HCl (Oxycodone Hcl Immed Release 5 Mg Tablet) 5 mg PO Q4H PRN PRN Reason: Pain, Moderate (Pain Scale 4-6 Pharmacy Consult (Consult Rx Perform Med Rec) 1 each MISCELLANE ONCE PRN PRN Reason: Consult order Pharmacy Consult (Consult Rx Vancomycin Dosing) 1 each MISCELLANE DAILY PRN PRN Reason: Consult order Sodium Chloride (0.9 % Sodium Chloride Flush 3 Ml Syringe) 3 ml IVFLUSH QSHIFT [facility] Last Admin: 01/06/22 19:39 Dose: 3 ml Documented By: SOHAIL Labs CBC & Chem 7: 01/06/22 05:55 01/08/22 05:58 Labs: Laboratory Results - last 24 hr 01/05/22 01/06/22 01/06/22 17:55 00:23 05:55 MCV 93.7 MCH 34.2 H MCHC 36.4 H RDW 13.1 Plt Count 158 L D MPV 10.5 Immature Gran % (Auto) 0.5 H Neut % (Auto) 87.3 H Lymph % (Auto) 4.3 L [place] % (Auto) 7.5 Eos % (Auto) 0.2 Baso % (Auto) 0.2 Lymph # (Auto) 0.7 L [place] # (Auto) 1.2 Eos # (Auto) 0.0 Baso # (Auto) 0.0 Abs Immat Gran (auto) 0.09 H Absolute Neuts (auto) 14.5 H Absolute Nucleated RBC 0.000 Nucleated RBC % (auto) 0.0 Smear Path Review SEE NOTE Anion Gap Estim Creat Clear Calc Estimated GFR Random Glucose Estimat Average Glucose 108 Hemoglobin A1c % 5.4 Calcium 01/06/22 01/06/22 01/07/22 05:55 08:02 05:29 MCV MCH MCHC RDW Plt Count MPV Immature Gran % (Auto) Neut % (Auto) Lymph % (Auto) [place] % (Auto) Eos % (Auto) Baso % (Auto) Lymph # (Auto) [place] # (Auto) Eos # (Auto) Baso # (Auto) Abs Immat Gran (auto) Absolute Neuts (auto) Absolute Nucleated RBC Nucleated RBC % (auto) Smear Path Review Anion Gap 14 Estim Creat Clear Calc 126.8 133.7 141.3 Estimated GFR > 60 > 60 > 60 Random Glucose 115 Estimat Average Glucose Hemoglobin A1c % Calcium 7.9 L D Microbiology Microbiology Results: Microbiology 01/05/22 17:55 Blood Culture - Preliminary Blood - Venous Prelim: GPC Gram Stain only 01/05/22 17:58 Blood Culture - Preliminary Blood - Venous Prelim: GPC Gram Stain only Assessment and Plan (1) Gangrene: Status: Acute (2) Cellulitis of foot, right: Status: Acute (3) Osteomyelitis: Status: Acute Plan 61-year-old male with a pertinent history of essential hypertension, ?diet-controlled diabetes mellitus, alcohol use disorder who presents to the emergency department at the behest of his primary care physician for evaluation of right foot wound. #.?Sepsis due to right foot gas gangrene and osteomyelitis--i -amputation of right great toe and 2nd toe with debridement right foot by Dr. Green 01/06 # Gram negative fadi bacteremia -Continue Vanco and Zosyn for now, DC clinda -ID consult is suggesting probable 6 weeks of IV Abx #.? Type a lactic acidosis due to above #.? Significant leukocytosis with bandemia improved from 43 to 16 #.? Transaminitis due to sepsis in a patient with fatty liver #.? Coagulopathy due to sepsis #. ?diet controlled diabetes mellitus -A1c is 5.4 #.? Essential hypertension -hold home antihypertensives for now #.? Alcohol use disorder -patient states his last drink was 2 weeks ago.? Monitor for withdrawal but defer benzo treatment currently DVT prophylaxis:? add heparin today Diet:? NPO for surgery Full code Need for inpatient: Sepsis d/t osteomylitis, gas gangrene that needs IV Abx and post op care Quality Stroke Does the patient have a stroke diagnosis?: No VTE Prior VTE?: No VTE Risk Level:: Medical - moderate - high VTE Device Contraindication: Treatment Not Indicated VTE Drug Contraindication: Treatment Not Indicated
[2022-01-07 07:47] VITALS: BP 105/61; PULSE 70; RESP 18; TEMP 37.1; O2SAT 95
[2022-01-07] MEDS: 0.9 % Sodium Chloride Flush 3 ML SYRINGE IVFLUSH ×3 (08:37→19:54)
--- NOTE | 2022-01-07 09:24 | P.PNGS_ITS ---
Subjective Subjective Date of Service: 01/07/22 Interval history: says he feels well denies pain on the amputation site Physical Exam 2 Vital Signs: Vital Signs: Last Vital Signs Temp 98.8 F 01/07/22 07:47 Pulse 70 01/07/22 07:47 Resp 18 01/07/22 07:47 BP 105/61 01/07/22 07:47 Pulse Ox 95 01/07/22 07:47 O2 Del Method 01/07/22 07:47 O2 Flow Rate 2 01/06/22 11:14 BMI result Body Mass Index 33.5 Const: General: comfortable and no acute distress Resp: Effort & Inspection: normal respiratory effort Extrem: Other: dressings changed - amputation site open, some oozing, no pus, no obvious gangrene Objective Data Active Medications Acetaminophen (Acetaminophen 325 Mg Tablet) 650 mg PO Q6H PRN PRN Reason: Pain, Mild (Pain Scale 1-3) Hydromorphone HCl (Hydromorphone Hcl 0.5 Mg/0.5 Ml Syringe) 0.5 mg IVPUSH Q2H PRN; Protocol PRN Reason: Pain, Severe (Pain Scale 7-10) Piperacillin Sod/Tazobactam (Sod 4.5 gm/ Sodium Chloride) 100 mls @ 200 mls/hr IV Q6H [facility] Last Infusion: 01/07/22 07:14 Dose: 0 mls/hr Documented By: SOHAIL Vancomycin HCl 1,250 mg/ (Sodium Chloride) 250 mls @ 166.667 mls/hr IV Q12H [facility] Last Infusion: 01/07/22 01:53 Dose: 0 mls/hr Documented By: SOHAIL Clindamycin Phosphate (Cleocin) 900 mg in 50 mls @ 50 mls/hr IV Q8H [facility] Last Infusion: 01/07/22 06:15 Dose: 0 mls/hr Documented By: MORRINShaheed Melatonin (Melatonin 3 Mg Tablet) 6 mg PO BEDTIME PRN PRN Reason: Insomnia Ondansetron HCl (Ondansetron Hcl 4 Mg/2 Ml Vial) 4 mg IVPUSH Q8H PRN PRN Reason: Nausea and Vomiting Oxycodone HCl (Oxycodone Hcl Immed Release 5 Mg Tablet) 5 mg PO Q4H PRN PRN Reason: Pain, Moderate (Pain Scale 4-6 Pharmacy Consult (Consult Rx Perform Med Rec) 1 each MISCELLANE ONCE PRN PRN Reason: Consult order Pharmacy Consult (Consult Rx Vancomycin Dosing) 1 each MISCELLANE DAILY PRN PRN Reason: Consult order Sodium Chloride (0.9 % Sodium Chloride Flush 3 Ml Syringe) 3 ml IVFLUSH QSHIFT [facility] Last Admin: 01/07/22 08:37 Dose: 3 ml Documented By: LEON Labs CBC & Chem 7: 01/06/22 05:55 01/07/22 05:29 Labs: Laboratory Results - last 24 hr 01/07/22 05:29 Estim Creat Clear Calc 141.3 Estimated GFR > 60 Microbiology Microbiology Results: Microbiology 01/05/22 17:55 Blood Culture - Preliminary Blood - Venous Prelim: GPC Gram Stain only 01/05/22 17:58 Blood Culture - Preliminary Blood - Venous Prelim: GPC Gram Stain only Procedures Date of Service Date of Service: 01/07/22 Progress Note: A&P Assessment and plan (1) Amputation of toe of right foot: Status: Acute Assessment and Plan: dressings changed site clean re-applied Betadine dressings wrapped foot in Kerlix leg elevation continue antibiotics seems to be doing well postop Time Spent With Patient Time: Total time spent is greater than 50% in coordination of care (as documented) at patient's floor/unit and/or counseling patient: Quality Stroke Does the patient have a stroke diagnosis?: No VTE Prior VTE?: No VTE Risk Level:: Medical - moderate - high VTE Device Contraindication: Treatment Not Indicated VTE Drug Contraindication: Treatment Not Indicated
[2022-01-07 10:09] LABS: Vancomycin Trough 8.6 mcg/mL (10.0-20.0)
--- NOTE | 2022-01-07 10:30 | HE.PHANOTE ---
Addendum entered by Tonio Pandey [facility] 01/07/22 13:10: NEXT TROUGH 01/08 @ 1000 Original Note: VANCO DOSE ADJUSTMENT BASED ON LABS AND TROUGH OF 8.6 DOSE INCREASED TO 1500 Q 12. NEXT TROUGH 01/07 @ 1000
[2022-01-07 11:51] VITALS: BP 93/57; PULSE 69; RESP 18; TEMP 37.2; O2SAT 95
[2022-01-07] MEDS: vancomycin HCL 1,500 MG in 0.9 % Sodium Chloride 500 ML 333.33 MG IV (12:20)
--- NOTE | 2022-01-07 14:43 | PM.IDPN ---
Subjective Subjective Date of Service: 01/07/22 Critical Care Time (minutes): 15 Comment: he feels better Objective Data Labs CBC & Chem 7: 01/06/22 05:55 01/07/22 05:29 Labs: Laboratory Results - last 24 hr 01/07/22 01/07/22 05:29 09:35 Creatinine 0.70 Estim Creat Clear Calc 141.3 Estimated GFR > 60 Vancomycin Trough 8.6 L Microbiology Microbiology Results: Microbiology 01/05/22 17:58 Blood - Venous Blood Culture - Preliminary Prelim: GPC Gram Stain only 01/05/22 17:55 Blood - Venous Blood Culture - Preliminary Prelim: GPC Gram Stain only Physical Exam Vital Signs: Vital Signs: Last Vital Signs Temp 98.9 F 01/07/22 11:51 Pulse 69 01/07/22 11:51 Resp 18 01/07/22 11:51 BP 93/57 L 01/07/22 11:51 Pulse Ox 95 01/07/22 11:51 O2 Del Method 01/07/22 11:51 O2 Flow Rate 2 01/06/22 11:14 BMI result Body Mass Index 33.5 Const: General: cooperative Resp: Effort & Inspection: normal respiratory effort Cardio: Rate: regular rate Rhythm: regular rhythm GI: Palpation (GI): Soft to palpation and nontender Extrem: Other: wrapped foot Assessment and Plan Assessment and plan (1) Amputation of toe of right foot: Problem details: Amputation of big toe and 2nd toe Dr. Green 01/06/2022 Status: Acute (2) Bacteremia: Problem details: possible staph including MRSA Status: Acute Plan Would continue Vancomycin and Zosyn for now Echo evaluate endocarditis Time Spent With Patient Time: Total time spent is greater than 50% in coordination of care (as documented) at patient's floor/unit and/or counseling patient:
[2022-01-07 15:06] VITALS: BP 117/62; PULSE 74; RESP 17; TEMP 36.4; O2SAT 95
[2022-01-07 16:36] LABS: Glucose, Whole Blood 105 mg/dL (60-115)
[2022-01-07 19:36] VITALS: BP 109/64; PULSE 69; RESP 17; TEMP 36.6; O2SAT 95
[2022-01-08] VITALS: BP 109/68; PULSE 65; RESP 18; TEMP 36.6; O2SAT 95
[2022-01-08] MEDS: Piperacillin Sodium/Tazobactam 4.5 GM in 0.9 % Sodium Chloride 100 ML IV ×4 (00:12→19:36)
[2022-01-08] MEDS: vancomycin HCL 1,500 MG in 0.9 % Sodium Chloride 500 ML 333.33 MG IV ×3 (00:12→23:23)
[2022-01-08 04:00] VITALS: BP 113/72; PULSE 61; RESP 18; TEMP 36.4; O2SAT 95
[2022-01-08 06:24] LABS: Creatinine Clr Calc Pharmacy 135.5; Estimated Glomerular Filt Rate > 60
[2022-01-08 08:04] VITALS: BP 113/73; PULSE 70; RESP 18; TEMP 36.2; O2SAT 95
--- NOTE | 2022-01-08 08:31 | HO.PM.IMPN ---
Subjective Subjective Date of Service: 01/08/22 Interval History: Seen in f/u for sepsis, osteomyllitis, gas gangrene of right foot and gram negative fadi bacteremia interval hisotory: s/p amputation of right great toe and 2nd toe with debridement right foot on 01/06 Review of Systems no fever pain in the foot Physical Exam Vital Signs: Vital Signs: Last Vital Signs Temp 97.2 F 01/08/22 08:04 Pulse 70 01/08/22 08:04 Resp 18 01/08/22 08:04 BP 113/73 01/08/22 08:04 Pulse Ox 95 01/08/22 08:04 O2 Del Method 01/08/22 04:00 O2 Flow Rate 2 01/06/22 11:14 BMI result Body Mass Index 33.5 Objective Data Active Medications Acetaminophen (Acetaminophen 325 Mg Tablet) 650 mg PO Q6H PRN PRN Reason: Pain, Mild (Pain Scale 1-3) Hydromorphone HCl (Hydromorphone Hcl 0.5 Mg/0.5 Ml Syringe) 0.5 mg IVPUSH Q2H PRN; Protocol PRN Reason: Pain, Severe (Pain Scale 7-10) Piperacillin Sod/Tazobactam (Sod 4.5 gm/ Sodium Chloride) 100 mls @ 200 mls/hr IV Q6H [facility] Last Infusion: 01/08/22 07:17 Dose: 200 mls/hr Documented By: LEON Vancomycin HCl 1,500 mg/ (Sodium Chloride) 500 mls @ 333.333 mls/hr IV Q12H [facility] Last Infusion: 01/08/22 02:34 Dose: 333.33 mls/hr Documented By: JESUS Melatonin (Melatonin 3 Mg Tablet) 6 mg PO BEDTIME PRN PRN Reason: Insomnia Ondansetron HCl (Ondansetron Hcl 4 Mg/2 Ml Vial) 4 mg IVPUSH Q8H PRN PRN Reason: Nausea and Vomiting Oxycodone HCl (Oxycodone Hcl Immed Release 5 Mg Tablet) 5 mg PO Q4H PRN PRN Reason: Pain, Moderate (Pain Scale 4-6 Pharmacy Consult (Consult Rx Perform Med Rec) 1 each MISCELLANE ONCE PRN PRN Reason: Consult order Pharmacy Consult (Consult Rx Vancomycin Dosing) 1 each MISCELLANE DAILY PRN PRN Reason: Consult order Sodium Chloride (0.9 % Sodium Chloride Flush 3 Ml Syringe) 3 ml IVFLUSH QSHIFT [facility] Last Admin: 01/07/22 19:54 Dose: 3 ml Documented By: JESUS Labs CBC & Chem 7: 01/06/22 05:55 01/08/22 05:58 Labs: Laboratory Results - last 24 hr 01/07/22 01/07/22 01/08/22 09:35 16:32 05:58 Estim Creat Clear Calc 135.5 Estimated GFR > 60 POC Glucose 105 Vancomycin Trough 8.6 L Microbiology Microbiology Results: Microbiology 01/05/22 17:58 Blood Culture - Preliminary Blood - Venous Prelim: GPC Gram Stain only 01/05/22 17:55 Blood Culture - Preliminary Blood - Venous Prelim: GPC Gram Stain only Assessment and Plan (1) Gangrene: Status: Acute (2) Cellulitis of foot, right: Status: Acute (3) Osteomyelitis: Status: Acute Plan 61-year-old male with a pertinent history of essential hypertension, ?diet-controlled diabetes mellitus, alcohol use disorder who presents to the emergency department at the behest of his primary care physician for evaluation of right foot wound. #.?Sepsis due to right foot gas gangrene and osteomyelitis--i -amputation of right great toe and 2nd toe with debridement right foot by Dr. Green 01/06 # Gram negative fadi bacteremia--sensitivity pending -Continue Vanco and Zosyn for now, DC clinda on 01/07 -ID consult is suggesting probable 6 weeks of IV Abx -PICC line tomorrow #.? Type a lactic acidosis due to above #.? Significant leukocytosis with bandemia improved from 43 to 16 #.? Transaminitis due to sepsis in a patient with fatty liver #.? Coagulopathy due to sepsis #. ?diet controlled diabetes mellitus -A1c is 5.4 #.? Essential hypertension -hold home antihypertensives for now #.? Alcohol use disorder -patient states his last drink was 2 weeks ago.? Monitor for withdrawal but defer benzo treatment currently DVT prophylaxis:? add heparin today Diet:? NPO for surgery Full code Need for inpatient: Sepsis d/t osteomylitis, gas gangrene that needs IV Abx and post op care Quality Stroke Does the patient have a stroke diagnosis?: No VTE Prior VTE?: No VTE Risk Level:: Medical - moderate - high VTE Device Contraindication: Treatment Not Indicated VTE Drug Contraindication: Treatment Not Indicated
[2022-01-08] MEDS: 0.9 % Sodium Chloride Flush 3 ML SYRINGE IVFLUSH ×3 (08:41→19:36)
[2022-01-08 11:02] LABS: Vancomycin Trough 10.9 mcg/mL (10.0-20.0)
[2022-01-08 11:55] VITALS: BP 108/68; PULSE 68; RESP 18; TEMP 36.4; O2SAT 96
--- NOTE | 2022-01-08 12:09 | P.PNGS_ITS ---
Subjective Subjective Date of Service: 01/08/22 Interval history: denies pain on surgical site says he has no complaints Physical Exam Vital Signs: Vital Signs: Last Vital Signs Temp 97.6 F 01/08/22 11:55 Pulse 68 01/08/22 11:55 Resp 18 01/08/22 11:55 BP 108/68 01/08/22 11:55 Pulse Ox 96 01/08/22 11:55 O2 Del Method 01/08/22 11:55 O2 Flow Rate 2 01/06/22 11:14 BMI result Body Mass Index 33.5 Const: General: comfortable and no acute distress Resp: Effort & Inspection: normal respiratory effort Extrem: Other: right foot amputation site - open, clean, mild oozing, no pus Objective Data Active Medications Acetaminophen (Acetaminophen 325 Mg Tablet) 650 mg PO Q6H PRN PRN Reason: Pain, Mild (Pain Scale 1-3) Hydromorphone HCl (Hydromorphone Hcl 0.5 Mg/0.5 Ml Syringe) 0.5 mg IVPUSH Q2H PRN; Protocol PRN Reason: Pain, Severe (Pain Scale 7-10) Piperacillin Sod/Tazobactam (Sod 4.5 gm/ Sodium Chloride) 100 mls @ 200 mls/hr IV Q6H [facility] Last Infusion: 01/08/22 07:17 Dose: 200 mls/hr Documented By: LEON Vancomycin HCl 1,500 mg/ (Sodium Chloride) 500 mls @ 333.333 mls/hr IV Q12H [facility] Last Admin: 01/08/22 11:56 Dose: 333.33 mls/hr Documented By: LEON Melatonin (Melatonin 3 Mg Tablet) 6 mg PO BEDTIME PRN PRN Reason: Insomnia Ondansetron HCl (Ondansetron Hcl 4 Mg/2 Ml Vial) 4 mg IVPUSH Q8H PRN PRN Reason: Nausea and Vomiting Oxycodone HCl (Oxycodone Hcl Immed Release 5 Mg Tablet) 5 mg PO Q4H PRN PRN Reason: Pain, Moderate (Pain Scale 4-6 Pharmacy Consult (Consult Rx Perform Med Rec) 1 each MISCELLANE ONCE PRN PRN Reason: Consult order Pharmacy Consult (Consult Rx Vancomycin Dosing) 1 each MISCELLANE DAILY PRN PRN Reason: Consult order Sodium Chloride (0.9 % Sodium Chloride Flush 3 Ml Syringe) 3 ml IVFLUSH QSHIFT [facility] Last Admin: 01/08/22 08:41 Dose: 3 ml Documented By: LEON Labs CBC & Chem 7: 01/06/22 05:55 01/08/22 05:58 Labs: Laboratory Results - last 24 hr 01/07/22 01/08/22 01/08/22 16:32 05:58 10:10 Estim Creat Clear Calc 135.5 Estimated GFR > 60 POC Glucose 105 Vancomycin Trough 10.9 Microbiology Microbiology Results: Microbiology 01/05/22 17:55 Blood Culture - Preliminary Blood - Venous Prelim: GPC Gram Stain only 01/05/22 17:58 Blood Culture - Preliminary Blood - Venous Prelim: GPC Gram Stain only Procedures Date of Service Date of Service: 01/08/22 Progress Note: A&P Assessment and plan (1) Amputation of toe of right foot: Status: Acute Assessment and Plan: dressings changed - moist Betadine dressings applied open wound clean foot wrapped in Kerlix possible wound vac for healing by secondary intention IV abx with PICC line for mcfp Time Spent With Patient Time: Total time spent is greater than 50% in coordination of care (as documented) at patient's floor/unit and/or counseling patient: Quality Stroke Does the patient have a stroke diagnosis?: No VTE Prior VTE?: No VTE Risk Level:: Medical - moderate - high VTE Device Contraindication: Treatment Not Indicated VTE Drug Contraindication: Treatment Not Indicated
[2022-01-08 15:16] VITALS: BP 114/68; PULSE 68; RESP 17; TEMP 36.4; O2SAT 96
--- NOTE | 2022-01-08 16:03 | HO.POSTANES ---
Post Anesthesia Evaluation Post Anesthesia Evaluation Vital Signs: Vital Signs Temp Pulse Resp BP Pulse Ox O2 Del Method 01/08/22 15:16 97.6 F 68 17 114/68 96 Room Air 01/08/22 11:55 97.6 F 68 18 108/68 96 Room Air 01/08/22 08:04 97.2 F 70 18 113/73 95 Anesthesia: General LMA Mental Status: Awake Pain Control: Satisfactory Nausea/Vomiting: None Hydration: Adequate Anesthesia-Related Issues: No Anes. Related Issues
[2022-01-08 19:54] VITALS: BP 113/69; PULSE 69; RESP 17; TEMP 36.6; O2SAT 96
[2022-01-09] VITALS (7 sets, daily range): BP systolic 111–128; BP diastolic 65–78; PULSE 60–78; RESP 17–18; TEMP 36.2–36.8; O2SAT 96–98
[2022-01-09] MEDS: Piperacillin Sodium/Tazobactam 4.5 GM in 0.9 % Sodium Chloride 100 ML IV ×4 (00:57→18:25)
[2022-01-09 06:39] LABS: Hematocrit 35.6 % (42.0-52.0); Hemoglobin 12.7 g/dl (14.0-18.0); Mean Corpuscular HGB Conc 35.7 g/dl (31.0-36.0); Mean Corpuscular Volume 95.4 fL (80.0-98.0); Mean Platelet Volume 10.1 fL (9.4-12.4); Platelet Count 161 X10*3/uL (160-400); Red Blood Count 3.73 X10*6/uL (4.60-5.80); Red Cell Distribution Width 13.1 % (11.0-16.0); White Blood Count 6.2 X10*3/uL (4.8-10.8)
[2022-01-09 07:09] LABS: Creatinine Clr Calc Pharmacy 139.3; Estimated Glomerular Filt Rate > 60
[2022-01-09] MEDS: 0.9 % Sodium Chloride Flush 3 ML SYRINGE IVFLUSH ×2 (07:46→23:44)
--- NOTE | 2022-01-09 08:17 | P.PNGS_ITS ---
Subjective Subjective Date of Service: 01/09/22 Interval history: Patient feels well and denies any foot pain. Physical Exam Vital Signs: Vital Signs: Last Vital Signs Temp 97.2 F 01/09/22 07:51 Pulse 65 01/09/22 07:51 Resp 18 01/09/22 07:51 BP 128/78 01/09/22 07:51 Pulse Ox 97 01/09/22 07:51 O2 Del Method 01/09/22 07:51 O2 Flow Rate 2 01/06/22 11:14 BMI result Body Mass Index 33.5 Const: General: comfortable and no acute distress Nutritional Appearance: well nourished Orientation/consciousness: patient oriented x3 Limitations: no limitations Resp: Effort & Inspection: normal respiratory effort Skin: Other: Warm, dry, no rash Neuro: General: patient oriented x3 Extrem: Other: dressings changed to right foot. Granulation tissue noted wound base. No necrotic tissue and no evidence of Underlying abscess. Objective Data Active Medications Acetaminophen (Acetaminophen 325 Mg Tablet) 650 mg PO Q6H PRN PRN Reason: Pain, Mild (Pain Scale 1-3) Hydromorphone HCl (Hydromorphone Hcl 0.5 Mg/0.5 Ml Syringe) 0.5 mg IVPUSH Q2H PRN; Protocol PRN Reason: Pain, Severe (Pain Scale 7-10) Piperacillin Sod/Tazobactam (Sod 4.5 gm/ Sodium Chloride) 100 mls @ 200 mls/hr IV Q6H [facility] Last Infusion: 01/09/22 07:50 Dose: 0 mls/hr Documented By: RIGO Vancomycin HCl 1,500 mg/ (Sodium Chloride) 500 mls @ 333.333 mls/hr IV Q12H [facility] Last Infusion: 01/09/22 01:00 Dose: 100 mls/hr Documented By: AFIA Melatonin (Melatonin 3 Mg Tablet) 6 mg PO BEDTIME PRN PRN Reason: Insomnia Ondansetron HCl (Ondansetron Hcl 4 Mg/2 Ml Vial) 4 mg IVPUSH Q8H PRN PRN Reason: Nausea and Vomiting Oxycodone HCl (Oxycodone Hcl Immed Release 5 Mg Tablet) 5 mg PO Q4H PRN PRN Reason: Pain, Moderate (Pain Scale 4-6 Pharmacy Consult (Consult Rx Perform Med Rec) 1 each MISCELLANE ONCE PRN PRN Reason: Consult order Pharmacy Consult (Consult Rx Vancomycin Dosing) 1 each MISCELLANE DAILY PRN PRN Reason: Consult order Sodium Chloride (0.9 % Sodium Chloride Flush 3 Ml Syringe) 3 ml IVFLUSH QSHIFT [facility] Last Admin: 01/09/22 07:46 Dose: 3 ml Documented By: RIGO Labs CBC & Chem 7: 01/09/22 05:48 01/09/22 05:48 Labs: Laboratory Results - last 24 hr 01/08/22 01/09/22 01/09/22 10:10 05:48 05:48 MCV 95.4 MCH 34.0 H MCHC 35.7 RDW 13.1 Plt Count 161 MPV 10.1 Absolute Nucleated RBC 0.000 Nucleated RBC % (auto) 0.0 Estim Creat Clear Calc 139.3 Estimated GFR > 60 Vancomycin Trough 10.9 Microbiology Microbiology Results: Microbiology 01/05/22 17:55 Blood Culture - Preliminary Blood - Venous Prelim: GPC Gram Stain only 01/05/22 17:58 Blood Culture - Preliminary Blood - Venous Prelim: GPC Gram Stain only Procedures Date of Service Date of Service: 01/09/22 Progress Note: A&P Assessment and plan (1) Amputation of toe of right foot: Status: Acute (2) Cellulitis of toe of right foot: Status: Acute Plan S/P mutation 1st and 2nd toe right foot due to gangrene, diabetes. Dressings changed this morning and wounds are showing evidence of granulation tissue. Patient would be a good candidate for wound VAC dressing. Discussed with patient he is agreeable. Continue IV antibiotics. Time Spent With Patient Time: Total time spent is greater than 50% in coordination of care (as documented) at patient's floor/unit and/or counseling patient: Quality Stroke Does the patient have a stroke diagnosis?: No VTE Prior VTE?: No VTE Risk Level:: Medical - moderate - high VTE Device Contraindication: Treatment Not Indicated VTE Drug Contraindication: Treatment Not Indicated
--- NOTE | 2022-01-09 09:35 | HO.PM.IMPN ---
Subjective Subjective Date of Service: 01/09/22 Interval History: Seen in f/u for sepsis, osteomyllitis, gas gangrene of right foot and gram negative fadi bacteremia interval hisotory: s/p amputation of right great toe and 2nd toe with debridement right foot on 01/06 doing well, with no new issues Review of Systems no fever pain in the foot Physical Exam Vital Signs: Vital Signs: Last Vital Signs Temp 97.2 F 01/09/22 07:51 Pulse 65 01/09/22 07:51 Resp 18 01/09/22 07:51 BP 128/78 01/09/22 07:51 Pulse Ox 97 01/09/22 07:51 O2 Del Method 01/09/22 07:51 O2 Flow Rate 2 01/06/22 11:14 BMI result Body Mass Index 33.5 Const: Other: General: AO X 3, no acute distress Resp: CTA bilateral CVS: S1,S2,RRR GI: +BS, NT, no distention Skin: dressing in place and being changed by surgery Neuro: motor grossly intact Psych: appropriate affect Objective Data Active Medications Acetaminophen (Acetaminophen 325 Mg Tablet) 650 mg PO Q6H PRN PRN Reason: Pain, Mild (Pain Scale 1-3) Hydromorphone HCl (Hydromorphone Hcl 0.5 Mg/0.5 Ml Syringe) 0.5 mg IVPUSH Q2H PRN; Protocol PRN Reason: Pain, Severe (Pain Scale 7-10) Piperacillin Sod/Tazobactam (Sod 4.5 gm/ Sodium Chloride) 100 mls @ 200 mls/hr IV Q6H [facility] Last Infusion: 01/09/22 07:50 Dose: 0 mls/hr Documented By: RIGO Vancomycin HCl 1,500 mg/ (Sodium Chloride) 500 mls @ 333.333 mls/hr IV Q12H [facility] Last Infusion: 01/09/22 01:00 Dose: 100 mls/hr Documented By: AFIA Melatonin (Melatonin 3 Mg Tablet) 6 mg PO BEDTIME PRN PRN Reason: Insomnia Ondansetron HCl (Ondansetron Hcl 4 Mg/2 Ml Vial) 4 mg IVPUSH Q8H PRN PRN Reason: Nausea and Vomiting Oxycodone HCl (Oxycodone Hcl Immed Release 5 Mg Tablet) 5 mg PO Q4H PRN PRN Reason: Pain, Moderate (Pain Scale 4-6 Pharmacy Consult (Consult Rx Perform Med Rec) 1 each MISCELLANE ONCE PRN PRN Reason: Consult order Pharmacy Consult (Consult Rx Vancomycin Dosing) 1 each MISCELLANE DAILY PRN PRN Reason: Consult order Sodium Chloride (0.9 % Sodium Chloride Flush 3 Ml Syringe) 3 ml IVFLUSH QSHIFT [facility] Last Admin: 01/09/22 07:46 Dose: 3 ml Documented By: RIGO Labs CBC & Chem 7: 01/09/22 05:48 01/09/22 05:48 Labs: Laboratory Results - last 24 hr 01/08/22 01/09/22 01/09/22 10:10 05:48 05:48 MCV 95.4 MCH 34.0 H MCHC 35.7 RDW 13.1 Plt Count 161 MPV 10.1 Absolute Nucleated RBC 0.000 Nucleated RBC % (auto) 0.0 Estim Creat Clear Calc 139.3 Estimated GFR > 60 Vancomycin Trough 10.9 Microbiology Microbiology Results: Microbiology 01/05/22 17:55 Blood Culture - Preliminary Blood - Venous Prelim: GPC Gram Stain only 01/05/22 17:58 Blood Culture - Preliminary Blood - Venous Prelim: GPC Gram Stain only Assessment and Plan (1) Gangrene: Status: Acute (2) Cellulitis of foot, right: Status: Acute (3) Osteomyelitis: Status: Acute Plan 61-year-old male with a pertinent history of essential hypertension, ?diet-controlled diabetes mellitus, alcohol use disorder who presents to the emergency department at the behest of his primary care physician for evaluation of right foot wound. #.?Sepsis due to right foot gas gangrene and osteomyelitis--i -amputation of right great toe and 2nd toe with debridement right foot by Dr. Green 01/06 # Gram negative fadi bacteremia--sensitivity pending -Continue Vanco and Zosyn for now, DC clinda on 01/07 -ID to decide on DC Abx and lenght of treatment -PICC line requested today -Surgery will arrange for wound vac #.? Type A lactic acidosis due to above #.? Significant leukocytosis with bandemia improved from 43 to 16 #.? Transaminitis due to sepsis in a patient with fatty liver #.? Coagulopathy due to sepsis #. ?diet controlled diabetes mellitus -A1c is 5.4 #.? Essential hypertension -hold home antihypertensives for now #.? Alcohol use disorder -patient states his last drink was 2 weeks ago.? Monitor for withdrawal but defer benzo treatment currently DVT prophylaxis:? add heparin today Diet:?diabetic Full code Need for inpatient: Sepsis d/t osteomylitis, gas gangrene that needs IV Abx and post op care Quality Stroke Does the patient have a stroke diagnosis?: No VTE Prior VTE?: No VTE Risk Level:: Medical - moderate - high VTE Device Contraindication: Treatment Not Indicated VTE Drug Contraindication: Treatment Not Indicated
[2022-01-09] MEDS: vancomycin HCL 1,500 MG in 0.9 % Sodium Chloride 500 ML 333.33 MG IV (11:35)
[2022-01-09 12:21] LABS: Vancomycin Trough 12.3 mcg/mL (10.0-20.0)
--- NOTE | 2022-01-09 12:31 | HE.PHANOTE ---
[vanco addendum] increasing dose t [id number] Q12H with predicted AUC 438mg/L next trough to be drawn 01/11/22 @1000
--- NOTE | 2022-01-09 16:28 | MHC.CM.PN ---
EMR REVIEWED, PER HOSPITALIST ANTIC PT WILL D/C W/WOUND VAC AND IV ABX, PICC LINE PENDING AND ANTIC D/C BY SUNDAY, [facility] AND [facility] FOLLOWING AND UPDATED, CM WILL CONT TO FOLLOW D/C NEEDS.
[2022-01-09] MEDS: vancomycin HCL 1,000 MG, vancomycin HCL 750 MG in 0.9 % Sodium Chloride 500 ML 267.5 MG IV (23:43)
[2022-01-10] MEDS: Piperacillin Sodium/Tazobactam 4.5 GM in 0.9 % Sodium Chloride 100 ML IV ×4 (01:49→18:28)
[2022-01-10 06:53] LABS: Creatinine Clr Calc Pharmacy 133.7; Estimated Glomerular Filt Rate > 60
--- NOTE | 2022-01-10 07:00 | CA_ITS ---
Transthoracic Echocardiogram Patient (Last, First, Middle): Nate Correa C Gender: Male Date of : 1960 Age: 61 Procedure Date: 01/10/2022 Procedure Type: Transthoracic Echocardiogram Location: S3E Height: 182.88 cm Weight: 111.59 kg BSA: 2.33 m2 Heart Rate: bpm BP: 118 / 67 mmHg [place] Assessor: Referring MD: Dorene Starkey MD Symptoms: bacteremia Study Quality: Fair ECG Rhythm: Sinus Conclusions: - Normal left ventricular size and systolic function. There is mildly increased left ventricular wall thickness. The visually estimated ejection fraction is between 55-60%. - Diastolic function is normal for age. - Normal right ventricular cavity size and systolic function. - No obvious vegetation noticed on visualized valves. Findings Left Ventricle Normal left ventricular size and systolic function. There is mildly increased left ventricular wall thickness. The visually estimated ejection fraction is between 55-60%. There is no evidence of regional wall motion abnormalities. Diastolic function is normal for age. Right Ventricle Normal right ventricular cavity size and systolic function. Atria The left atrium is normal in size. Aortic Valve The aortic valve structure and function is likely normal. There is no evidence of thickening of the aortic valve. There is no aortic valve stenosis. There is no aortic valve regurgitation. Mitral Valve Normal mitral valve structure and function. There is no mitral valve regurgitation. There is no mitral valve stenosis. Pulmonic Valve The pulmonic valve was not well visualized. Tricuspid Valve Normal tricuspid valve structure and function. There is trace tricuspid valve regurgitation. Normal right atrial pressure. There is no evidence of pulmonary hypertension. Great Vessels The pulmonary artery was not well visualized. There is mild dilatation of the sinuses of Valsalva measuring 4.00 cm and mild dilatation of the ascending aorta measuring 3.50 cm. Venous The inferior vena cava is normal in size and collapses greater than 50% with inspiration. Pericardium/Pleural There is no evidence of pericardial effusion. Recommendations, Care & Conclusions Consider a BARI if clinically appropriate. Measurements 2D Linear Measurements IVSd: 1.27 0.6-0.9/0.6-1.0 cm LVIDd: 5.46 3.9-5.3/4.2-5.9 cm LVIDd Index: 2.34 2.4-3.2/2.2-3.1 cm/m2 LVIDs: 3.78 2.0-3.6 cm LVPWd: 1.25 0.7-1.1 cm Ao Root: 4.00 2.1-3.5 cm LA Diam: 3.60 2.7-3.8/3.0-4.0 cm LAIDs Index: 1.55 1.5-2.3 cm/m2 LV Mass: 359.21 67-162/88-224 g LV Mass Index: 154.17 43-95/49-115 g/m2 LVOT Diam: 2.40 3.0+(-)1.3 cm Mitral Valve MV Pk E: 0.80 MV PK A: 0.63 MV Decel Time: 211.00 E/A: 1.30 E'Lateral: 14.60 E'Medial: 8.16 E/E' Med: 9.80 E/E' Lat: 5.50 PHT: 62.00 MVA PHT: 3.55 Decel [place]: 3.79 Aortic Valve AoV Pk Jarad: 1.39 AoV Mn Jarad: 0.89 AoV VTI: 0.30 AoV Pk Grad: 8.00 Aov Mn Grad: 4.00 OTILIA Cont.VTI: 3.23 LVOT LVOT Pk Jarad: 1.09 LVOT Mn Jarad: 0.68 LVOT VTI: 0.22 LVOT Pk Grad: 5.00 LVOT Mn Grad: 2.00 LVOT Diam: 2.40 LVOT Area: 4.52 Diastolic Function MV Pk E: 0.80 MV Pk A: 0.63 E/A: 1.30 E'Medial: 8.16 E/E' Med: 9.80 E' Laterial: 14.60 E/E' Lat: 5.50 Right Ventricle TAPSE (mm): 26.00 Tricuspid Valve TR Pk Jarad: 2.24 TR Pk Grad: 20.00 RA Press: 3.00 RVSP: 23.00 Great Vessels Aorta Ao Root-2D: 4.00 2.0-3.7 cm Sinus of Valsalva: 4.00 2.0-3.5 cm Ao Asc: 3.50 2.1-3.4 cm Pulmonary Valve PV Pk Jarad: 1.19 Peak PV Grad: 6.00 Updated in Other Vendor System with Status of Final Anthony Sharif MD electronically signed on 01/11/2022 12:10:32 PM with status of Final
[2022-01-10] MEDS: 0.9 % Sodium Chloride Flush 3 ML SYRINGE IVFLUSH ×3 (07:21→19:27)
[2022-01-10 07:56] VITALS: BP 133/75; PULSE 67; RESP 19; TEMP 36.7; O2SAT 94
[2022-01-10 08:18] LABS: Potassium 3.5 mmol/L (3.3-5.1)
--- NOTE | 2022-01-10 09:55 | MHC.CM.PN ---
ASHLIE CONTACTED [facility] REP LOUIE AT 9:35AM [phone] PT WILL NEED TO D/C HOME W/WOUND VAC, LOUIE REPORTS HE IS UNSURE [facility] TAKES PT'S INSURANCE AND FACE SHEET FAXED TO LOUIE AT [phone] FOR REVIEW, [facility] UPDATED W/ANTIC D/C OF TOMORROW, PICC LINE PENDING AND CM AWAITING FINAL ABX TO COMPLETE IV ABX ORDER FORM FOR [facility]. CM WILL CONT TO FOLLOW DC NEEDS.
--- NOTE | 2022-01-10 10:57 | PM.PNGS ---
Subjective Subjective Date of Service: 01/10/22 Interval history: Overall patient feels well and denies any foot pain. Physical Exam Vital Signs: Vital Signs: Last Vital Signs Temp 98.0 F 01/10/22 07:56 Pulse 67 01/10/22 07:56 Resp 19 01/10/22 07:56 BP 133/75 01/10/22 07:56 Pulse Ox 94 01/10/22 07:56 O2 Del Method 01/10/22 07:56 O2 Flow Rate 2 01/06/22 11:14 BMI result Body Mass Index 33.5 Extrem: Other: Dressings changed to right foot. Granulation tissue noted at the base of wound. No evidence of necrotic or infected tissue. Wound VAC applied and patient tolerated this well. Small sponge used which adequately covered the entire wound. Objective Data Active Medications Acetaminophen (Acetaminophen 325 Mg Tablet) 650 mg PO Q6H PRN PRN Reason: Pain, Mild (Pain Scale 1-3) Hydromorphone HCl (Hydromorphone Hcl 0.5 Mg/0.5 Ml Syringe) 0.5 mg IVPUSH Q2H PRN; Protocol PRN Reason: Pain, Severe (Pain Scale 7-10) Piperacillin Sod/Tazobactam (Sod 4.5 gm/ Sodium Chloride) 100 mls @ 200 mls/hr IV Q6H [facility] Last Infusion: 01/10/22 07:31 Dose: 0 mls/hr Documented By: RIGO Vancomycin HCl 1,000 mg/Vancomycin HCl 750 mg/ Sodium Chloride 535 mls @ 267.5 mls/hr IV Q12H [facility] Last Infusion: 01/10/22 01:55 Dose: 0 mls/hr Documented By: AFIA Melatonin (Melatonin 3 Mg Tablet) 6 mg PO BEDTIME PRN PRN Reason: Insomnia Ondansetron HCl (Ondansetron Hcl 4 Mg/2 Ml Vial) 4 mg IVPUSH Q8H PRN PRN Reason: Nausea and Vomiting Oxycodone HCl (Oxycodone Hcl Immed Release 5 Mg Tablet) 5 mg PO Q4H PRN PRN Reason: Pain, Moderate (Pain Scale 4-6 Pharmacy Consult (Consult Rx Perform Med Rec) 1 each MISCELLANE ONCE PRN PRN Reason: Consult order Pharmacy Consult (Consult Rx Vancomycin Dosing) 1 each MISCELLANE DAILY PRN PRN Reason: Consult order Sodium Chloride (0.9 % Sodium Chloride Flush 3 Ml Syringe) 3 ml IVFLUSH QSHIFT [facility] Last Admin: 01/10/22 07:21 Dose: 3 ml Documented By: RIGO Labs CBC & Chem 7: 01/09/22 05:48 01/10/22 05:18 Labs: Laboratory Results - last 24 hr 01/09/22 01/10/22 10:26 05:18 Estim Creat Clear Calc 133.7 Estimated GFR > 60 Vancomycin Trough 12.3 Microbiology Microbiology Results: Microbiology 01/05/22 17:58 Blood Culture - Preliminary Blood - Venous Gram positive cocci Fusobacterium species 01/05/22 17:55 Blood Culture - Preliminary Blood - Venous Gram positive cocci Fusobacterium species Procedures Date of Service Date of Service: 01/10/22 Progress Note: A&P Assessment and plan (1) Amputation of toe of right foot: Status: Acute Plan Patient continues to improve with good granulation noted at the base of the amputation site. Wound vac applied today. Plan to change the dressing in two days. Probable discharge with home wound vac changes three times weekly. Time Spent With Patient Time: Total time spent is greater than 50% in coordination of care (as documented) at patient's floor/unit and/or counseling patient: Quality Stroke Does the patient have a stroke diagnosis?: No VTE Prior VTE?: No VTE Risk Level:: Medical - moderate - high VTE Device Contraindication: Treatment Not Indicated VTE Drug Contraindication: Treatment Not Indicated
--- NOTE | 2022-01-10 11:39 | MHC.CM.PN ---
CM CONTACTED [facility] AND FACE SHEET/SURGICAL H&P FAXED TO [phone] W/REQUEST TO CONTACT THIS CM UPON RECEIVING DOCUMENTS.
[2022-01-10 12:00] VITALS: BP 120/73; PULSE 67; RESP 18; TEMP 36.7; O2SAT 96
[2022-01-10] MEDS: vancomycin HCL 1,000 MG, vancomycin HCL 750 MG in 0.9 % Sodium Chloride 500 ML 267.5 MG IV ×2 (12:00→23:59)
--- NOTE | 2022-01-10 14:03 | MHC.CM.PN ---
ASHLIE RECEIVED CALL BACK FROM [facility] LIAISON SERAFIN GARY TO EMAIL WOUND VAC ORDER FORMS TO ASHLIE, ASHLIE TO FAX BACK ONCE COMPLETED. SERAFIN LUNA CELL: [phone] FAX: [phone]
--- NOTE | 2022-01-10 14:54 | HO.PM.IMPN ---
Subjective Subjective Date of Service: 01/11/22 Interval History: f/u for sepsis, osteomyllitis, gas gangrene of right foot and gram negative fadi bacteremia Review of Systems ?s/p amputation of right great toe and 2nd toe with debridement right foot on 01/06. doing well, with no new issues Physical Exam Vital Signs: Vital Signs: Last Vital Signs Temp 98.0 F 01/10/22 12:00 Pulse 67 01/10/22 12:00 Resp 18 01/10/22 12:00 BP 120/73 01/10/22 12:00 Pulse Ox 96 01/10/22 12:00 O2 Del Method 01/10/22 12:00 O2 Flow Rate 2 01/06/22 11:14 BMI result Body Mass Index 33.5 General: AO X 3, no acute distress Resp:? CTA bilateral CVS: S1,S2,RRR GI: +BS, NT, no distention Skin: dressing in place and being changed by surgery Neuro:? motor grossly intact Psych: appropriate affect Objective Data Active Medications Acetaminophen (Acetaminophen 325 Mg Tablet) 650 mg PO Q6H PRN PRN Reason: Pain, Mild (Pain Scale 1-3) Hydromorphone HCl (Hydromorphone Hcl 0.5 Mg/0.5 Ml Syringe) 0.5 mg IVPUSH Q2H PRN; Protocol PRN Reason: Pain, Severe (Pain Scale 7-10) Piperacillin Sod/Tazobactam (Sod 4.5 gm/ Sodium Chloride) 100 mls @ 200 mls/hr IV Q6H [facility] Last Infusion: 01/10/22 14:48 Dose: 0 mls/hr Documented By: RIGO Vancomycin HCl 1,000 mg/Vancomycin HCl 750 mg/ Sodium Chloride 535 mls @ 267.5 mls/hr IV Q12H [facility] Last Infusion: 01/10/22 14:10 Dose: 0 mls/hr Documented By: RIGO Melatonin (Melatonin 3 Mg Tablet) 6 mg PO BEDTIME PRN PRN Reason: Insomnia Ondansetron HCl (Ondansetron Hcl 4 Mg/2 Ml Vial) 4 mg IVPUSH Q8H PRN PRN Reason: Nausea and Vomiting Oxycodone HCl (Oxycodone Hcl Immed Release 5 Mg Tablet) 5 mg PO Q4H PRN PRN Reason: Pain, Moderate (Pain Scale 4-6 Pharmacy Consult (Consult Rx Perform Med Rec) 1 each MISCELLANE ONCE PRN PRN Reason: Consult order Pharmacy Consult (Consult Rx Vancomycin Dosing) 1 each MISCELLANE DAILY PRN PRN Reason: Consult order Sodium Chloride (0.9 % Sodium Chloride Flush 3 Ml Syringe) 3 ml IVFLUSH QSHIFT [facility] Last Admin: 01/10/22 07:21 Dose: 3 ml Documented By: RIGO Labs CBC & Chem 7: 01/09/22 05:48 01/11/22 05:16 Labs: Laboratory Results - last 24 hr 01/10/22 05:18 Estim Creat Clear Calc 133.7 Estimated GFR > 60 Microbiology Microbiology Results: Microbiology 01/09/22 12:25 Blood Culture - Preliminary Blood - Venous No growth after 24 hours. 01/09/22 12:25 Blood Culture - Preliminary Blood - Venous No growth after 24 hours. 01/05/22 17:58 Blood Culture - Preliminary Blood - Venous Gram positive cocci Fusobacterium species 01/05/22 17:55 Blood Culture - Preliminary Blood - Venous Gram positive cocci Fusobacterium species Quality Stroke Does the patient have a stroke diagnosis?: No VTE Prior VTE?: No VTE Risk Level:: Medical - moderate - high VTE Device Contraindication: Treatment Not Indicated VTE Drug Contraindication: Treatment Not Indicated
[2022-01-10 15:54] VITALS: BP 124/79; PULSE 68; RESP 17; TEMP 37.2; O2SAT 96
[2022-01-10 19:27] VITALS: BP 113/67; PULSE 68; RESP 16; TEMP 37.2; O2SAT 95
--- NOTE | 2022-01-10 23:38 | PC.NURSE ---
Pt refused this RN to assess surgical sites on the right foot.
[2022-01-10 23:58] VITALS: BP 116/65; PULSE 65; RESP 18; TEMP 36.7; O2SAT 95
[2022-01-11] MEDS: Piperacillin Sodium/Tazobactam 4.5 GM in 0.9 % Sodium Chloride 100 ML IV ×5 (02:10→23:38)
[2022-01-11 06:04] LABS: Creatinine Clr Calc Pharmacy 128.5; Estimated Glomerular Filt Rate > 60
[2022-01-11 07:23] VITALS: BP 115/65; PULSE 68; RESP 18; TEMP 37.5; O2SAT 94
[2022-01-11] MEDS: 0.9 % Sodium Chloride Flush 3 ML SYRINGE IVFLUSH (08:00)
--- NOTE | 2022-01-11 11:07 | P.PNGS_ITS ---
Subjective Subjective Date of Service: 01/11/22 Interval history: No problems with wound vac. Ambulating ok with crutches. No new complaints. Physical Exam Vital Signs: Vital Signs: Last Vital Signs Temp 99.5 F 01/11/22 07:23 Pulse 68 01/11/22 07:23 Resp 18 01/11/22 07:23 BP 115/65 01/11/22 07:23 Pulse Ox 94 01/11/22 07:23 O2 Del Method 01/11/22 07:23 O2 Flow Rate 2 01/06/22 11:14 BMI result Body Mass Index 33.5 Const: General: comfortable and no acute distress Orien tation/consciousness: patient oriented x3 Skin: General skin exam: no rashes or lesions noted Neuro: General: patient oriented x3 and moves all extremities Extrem: Other: right toe amputation site with wound vac in place, some edema persitsts Objective Data Active Medications Acetaminophen (Acetaminophen 325 Mg Tablet) 650 mg PO Q6H PRN PRN Reason: Pain, Mild (Pain Scale 1-3) Hydromorphone HCl (Hydromorphone Hcl 0.5 Mg/0.5 Ml Syringe) 0.5 mg IVPUSH Q2H PRN; Protocol PRN Reason: Pain, Severe (Pain Scale 7-10) Piperacillin Sod/Tazobactam (Sod 4.5 gm/ Sodium Chloride) 100 mls @ 200 mls/hr IV Q6H [facility] Last Infusion: 01/11/22 07:17 Dose: 0 mls/hr Documented By: ANABELLE Vancomycin HCl 1,000 mg/Vancomycin HCl 750 mg/ Sodium Chloride 535 mls @ 267.5 mls/hr IV Q12H [facility] Last Infusion: 01/11/22 02:14 Dose: 0 mls/hr Documented By: MC Melatonin (Melatonin 3 Mg Tablet) 6 mg PO BEDTIME PRN PRN Reason: Insomnia Ondansetron HCl (Ondansetron Hcl 4 Mg/2 Ml Vial) 4 mg IVPUSH Q8H PRN PRN Reason: Nausea and Vomiting Oxycodone HCl (Oxycodone Hcl Immed Release 5 Mg Tablet) 5 mg PO Q4H PRN PRN Reason: Pain, Moderate (Pain Scale 4-6 Pharmacy Consult (Consult Rx Perform Med Rec) 1 each MISCELLANE ONCE PRN PRN Reason: Consult order Pharmacy Consult (Consult Rx Vancomycin Dosing) 1 each MISCELLANE DAILY PRN PRN Reason: Consult order Sodium Chloride (0.9 % Sodium Chloride Flush 3 Ml Syringe) 3 ml IVFLUSH QSHIFT [facility] Last Admin: 01/11/22 08:00 Dose: 3 ml Documented By: ANABELLE Labs CBC & Chem 7: 01/09/22 05:48 01/11/22 05:16 Labs: Laboratory Results - last 24 hr 01/11/22 05:16 Estim Creat Clear Calc 128.5 Estimated GFR > 60 Microbiology Microbiology Results: Microbiology 01/05/22 17:58 Blood Culture - Final Blood - Venous Gemella morbillorum Fusobacterium species 01/05/22 17:55 Blood Culture - Final Blood - Venous Gemella morbillorum Fusobacterium species 01/09/22 12:25 Blood Culture - Preliminary Blood - Venous No growth after 24 hours. 01/09/22 12:25 Blood Culture - Preliminary Blood - Venous No growth after 24 hours. Procedures Date of Service Date of Service: 01/11/22 Progress Note: A&P Assessment and plan (1) Amputation of toe of right foot: Status: Acute Plan S/p amputation of right first and second toe on 01/06/22, now with wound vac in place. Wound vac with good seal, serosanguineous drainage. Encouraged right leg elevation to reduce edema. Plan for wound vac change tomorrow. If looks clean, stable for discharge with VNA services with wound vac in place with dressing changes 3x/ week. patient comfortable with plan. Time Spent With Patient Time: Total time spent is greater than 50% in coordination of care (as documented) at patient's floor/unit and/or counseling patient: Quality Stroke Does the patient have a stroke diagnosis?: No VTE Prior VTE?: No VTE Risk Level:: Medical - moderate - high VTE Device Contraindication: Treatment Not Indicated VTE Drug Contraindication: Treatment Not Indicated
[2022-01-11 11:30] VITALS: BP 115/63; PULSE 68; RESP 18; TEMP 37.2; O2SAT 96
[2022-01-11 11:40] LABS: Vancomycin Trough 17.1 mcg/mL (10.0-20.0)
--- NOTE | 2022-01-11 11:49 | HO.PM.IMPN ---
Subjective Subjective Date of Service: 01/11/22 Interval History: f/u for sepsis, osteomyllitis, gas gangrene of right foot and gram negative fadi bacteremia Review of Systems s/p amputation of right great toe and 2nd toe with debridement right foot on 01/06. doing well, with no new issues Physical Exam Vital Signs: Vital Signs: Last Vital Signs Temp 99 F 01/11/22 11:30 Pulse 68 01/11/22 11:30 Resp 18 01/11/22 11:30 BP 115/63 01/11/22 11:30 Pulse Ox 96 01/11/22 11:30 O2 Del Method 01/11/22 11:30 O2 Flow Rate 2 01/06/22 11:14 BMI result Body Mass Index 33.5 ?General: AO X 3, no acute distress Resp:? CTA bilateral CVS: S1,S2,RRR GI: +BS, NT, no distention Skin: dressing in place and being changed by surgery Neuro:? motor grossly intact Psych: appropriate affect. Objective Data Active Medications Acetaminophen (Acetaminophen 325 Mg Tablet) 650 mg PO Q6H PRN PRN Reason: Pain, Mild (Pain Scale 1-3) Hydromorphone HCl (Hydromorphone Hcl 0.5 Mg/0.5 Ml Syringe) 0.5 mg IVPUSH Q2H PRN; Protocol PRN Reason: Pain, Severe (Pain Scale 7-10) Vancomycin HCl 1,000 mg/Vancomycin HCl 750 mg/ Sodium Chloride 535 mls @ 267.5 mls/hr IV Q12H [facility] Last Infusion: 01/11/22 02:14 Dose: 0 mls/hr Documented By: MC Piperacillin Sod/Tazobactam (Sod 4.5 gm/ Sodium Chloride) 100 mls @ 200 mls/hr IV Q6H [facility] Melatonin (Melatonin 3 Mg Tablet) 6 mg PO BEDTIME PRN PRN Reason: Insomnia Ondansetron HCl (Ondansetron Hcl 4 Mg/2 Ml Vial) 4 mg IVPUSH Q8H PRN PRN Reason: Nausea and Vomiting Oxycodone HCl (Oxycodone Hcl Immed Release 5 Mg Tablet) 5 mg PO Q4H PRN PRN Reason: Pain, Moderate (Pain Scale 4-6 Pharmacy Consult (Consult Rx Perform Med Rec) 1 each MISCELLANE ONCE PRN PRN Reason: Consult order Pharmacy Consult (Consult Rx Vancomycin Dosing) 1 each MISCELLANE DAILY PRN PRN Reason: Consult order Sodium Chloride (0.9 % Sodium Chloride Flush 3 Ml Syringe) 3 ml IVFLUSH QSHIFT [facility] Last Admin: 01/11/22 08:00 Dose: 3 ml Documented By: ANABELLE Labs CBC & Chem 7: 01/09/22 05:48 01/11/22 05:16 Labs: Laboratory Results - last 24 hr 01/11/22 01/11/22 05:16 10:03 Estim Creat Clear Calc 128.5 Estimated GFR > 60 Vancomycin Trough 17.1 Microbiology Microbiology Results: Microbiology 01/05/22 17:58 Blood Culture - Final Blood - Venous Gemella morbillorum Fusobacterium species 01/05/22 17:55 Blood Culture - Final Blood - Venous Gemella morbillorum Fusobacterium species 01/09/22 12:25 Blood Culture - Preliminary Blood - Venous No growth after 24 hours. 01/09/22 12:25 Blood Culture - Preliminary Blood - Venous No growth after 24 hours. Assessment and Plan (1) Bacteremia: Status: Acute (2) Type 2 diabetes mellitus with hyperglycemia: Status: Acute Plan 61-year-old male with a pertinent history of essential hypertension, ?diet-controlled diabetes mellitus, alcohol use disorder who presents to the emergency department at the behest of his primary care physician for evaluation of right foot wound. #.?Sepsis due to right foot gas gangrene and osteomyelitis -amputation of right great toe and 2nd toe with debridement right foot by Dr. Green 01/06 # Gram negative fadi bacteremia--sensitivity pending -Continue Vanco and Zosyn for now, DC clinda on 01/07 -ID to decide on DC Abx and lenght of treatment -PICC line requested today -Surgery will arrange for wound vac #.? Type A lactic acidosis due to above #.? Significant leukocytosis with bandemia improved from 43 to 16 #.? Transaminitis due to sepsis in a patient with fatty liver #.? Coagulopathy due to sepsis #. ?diet controlled diabetes mellitus -A1c is 5.4 #.? Essential hypertension -hold home antihypertensives for now #.? Alcohol use disorder -patient states his last drink was 2 weeks ago.? Monitor for withdrawal but defer benzo treatment currently DVT prophylaxis:? add heparin today Diet:?diabetic Full code Need for inpatient: Sepsis d/t osteomylitis, gas gangrene that needs IV Abx and post op care Quality Stroke Does the patient have a stroke diagnosis?: No VTE Prior VTE?: No VTE Risk Level:: Medical - moderate - high VTE Device Contraindication: Treatment Not Indicated VTE Drug Contraindication: Treatment Not Indicated
--- NOTE | 2022-01-11 12:04 | HE.PHANOTE ---
RE DIANE CHANGING DOSE TO 1500MG Q12H, SUSPECTED AUC 453; TROUGH 16.5 LADAN
[2022-01-11] MEDS: vancomycin HCL 1,500 MG in 0.9 % Sodium Chloride 500 ML 333.33 MG IV (12:32)
--- NOTE | 2022-01-11 13:03 | MHC.CM.PN ---
EMR REVIEWED, PER HOSPITALIST STILL AWAITING FINAL ABX FROM ID, SURGICAL PLANS TO REPLACE WOUND VAC TOMORROW 01/12 AND SURGICAL PA HAS WOUND VAC PAPERWORK FOR [facility], CM WILL CONT TO FOLLOW D/C NEEDS.
[2022-01-11 15:49] VITALS: BP 114/69; PULSE 70; RESP 18; TEMP 36.6; O2SAT 97
--- NOTE | 2022-01-11 16:29 | MHC.CM.PN ---
T/C WITH SERAFIN LUNA FROM [facility] WOUND VAC AND NECESSARY PAPERWORK ALONG WITH [facility] . SENT REQUIRED PAPERWORK TGO HIM AT FAX HE WILL FOLLOW UP WITH T/C TO ARMANDO BARTH IN AM , FOR ANY ADDITIONAL [APERWORK NEEDED , HE WILL THEN DELIVER THE WOUND VAC WITH SPECIFIC DRESSING TO THE HOPSITAL IN [facility] , THE SURGEON WILL NEDED TO CHANGE TO STEPHANIE PELLETIER WOUND VAC IN ORDER FOR IT TO BE ABLE TO BE HOOKED UP
--- NOTE | 2022-01-11 18:04 | P.PICC_ITS ---
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 Following completion of Coleman Protocol the skin and soft tissues were anesthetized with 1% Lidocaine plain. Using ultrasound guidance, left basilic vein access was obtained in a single attempt by this RN. Over an 0.018 wire through peel-away sheath, a 4 german PASV PowerPICC SOLO line was positioned. The completion of the final placement was performed by Dr. Kunz in IR room 7 under fluoroscopy. The Catheter length is 49 cm internal length, 0 cm external length, for a total trimmed length of 49cm. The procedure was performed in S272 and finished in IR room 7. Tip verification was done under Fluoroscopy by Dr. Kunz. Tip located in SVC. Ultrasound was used to document vein patency and for needle entry. A formal ultrasound picture and cardiac rhythm strip was recorded. Vascular Softball Coach has released the line for use and it is currently dressed with a StatLock, Tegaderm, and CHG disc. Verification has been performed for blood return and line patency. Arm Circumference: 33cm Equipment: 4 german PASV PowerPICC SOLO Catheter Type: 4 german PASV PowerPICC Solo Lot #: [id number]
[2022-01-11 19:26] VITALS: BP 124/71; PULSE 79; RESP 20; TEMP 36.8; O2SAT 98
[2022-01-11 23:38] VITALS: BP 113/72; PULSE 67; RESP 18; TEMP 36.9; O2SAT 93
[2022-01-12] MEDS: 0.9 % Sodium Chloride Flush 3 ML SYRINGE IVFLUSH (01:10)
[2022-01-12] MEDS: vancomycin HCL 1,500 MG in 0.9 % Sodium Chloride 500 ML 333.3 MG IV (01:10)
--- NOTE | 2022-01-12 03:39 | PC.NURSE ---
around 1999 on 01/11 pt's was concerned about pt's right forearm. IV had been removed there the day before. right forearm was red, warm and slightly swollen. message sent to Dr. Azalia Dr went to see pt. ordered warm compress for arm and US. venous ultrasound was done and neg for DVT.
[2022-01-12] MEDS: Piperacillin Sodium/Tazobactam 4.5 GM in 0.9 % Sodium Chloride 100 ML IV ×4 (06:09→23:29)
--- NOTE | 2022-01-12 06:47 | PM.EVENT ---
Event Note Date of Service: 01/12/22 Event Note: Received a message by nurse that patient's family is concerned about pt's right forearm. he had an IV placed in the right forearm yesterday and could have possibly infiltarted and was removed, the area now is red, swollen and very painful, the pain and erythema is localized to the lateral aspect on the right forearm closer to the wrsit, no limited range of motion. pt already on broad spectrum abx to cover cellulitis, requesting ruling out dvt, venous duplex ordered which shows superficial thrmrombus warm compress placed
[2022-01-12 07:23] VITALS: BP 120/76; PULSE 63; RESP 18; TEMP 36.5; O2SAT 94
[2022-01-12 08:45] LABS: Creatinine Clr Calc Pharmacy 119.2; Estimated Glomerular Filt Rate > 60
--- NOTE | 2022-01-12 09:51 | HE.PHANOTE ---
RE VANCO TROUGH WAS 20, BUT WAS PULLED ONLY 7 HOURS AFTER LAST DOSE. SCR INCREASED SLIGHTLY. WILL DECREASE DOSE TO ALLOW DRUG TO CLEAR. NEXT TROUGH 01/13 @1000 LADAN
--- NOTE | 2022-01-12 11:24 | MHC.CM.PN ---
DICK LIAISON DROPPED OFF WOUND VAC, SURGICAL AWARE, CM REACHED OUT TO PT'S TO DISCUSS DISPO AND PT'S WAS TEARFUL AND UNABLE TO LEAVE WORK PRIOR TO 7PM, PT'S CONCERNED ABOUT PT BEING ABLE TO DO IV ABX ON OWN AND REQUESTED TO COME IN FOR A TEACH, CM REACHED OUT TO [facility] AND SHE WILL COME IN AT 10AM TOMORROW FOR TEACH, PT'S AARON [phone] AWARE AND AGREEABLE. CM STILL AWAITING FINAL ABX. D/C TOMORROW 01/13 W/[facility] AND [facility], AARON WILL TRANSPORT
[2022-01-12 11:25] VITALS: BP 126/70; PULSE 95; RESP 18; TEMP 36.6; O2SAT 95
[2022-01-12] MEDS: vancomycin HCL 1,250 MG in 0.9 % Sodium Chloride 250 ML 166.67 MG IV (12:14)
--- NOTE | 2022-01-12 12:15 | PC.NURSE ---
random vanco trough was 20 this morning. dose decreased, 1200 administration approved by pharmacy
--- NOTE | 2022-01-12 12:21 | HO.PM.IMPN ---
Subjective Subjective Date of Service: 01/12/22 Interval History: superficial thrombus right arm pain improving Review of Systems s/p amputation of right great toe and 2nd toe with debridement right foot on 01/06. doing well, with no new issues Physical Exam Vital Signs: Vital Signs: Last Vital Signs Temp 98 F 01/12/22 11:25 Pulse 95 01/12/22 11:25 Resp 18 01/12/22 11:25 BP 126/70 01/12/22 11:25 Pulse Ox 95 01/12/22 11:25 O2 Del Method 01/12/22 11:25 O2 Flow Rate 2 01/06/22 11:14 BMI result Body Mass Index 33.5 ?General: AO X 3, no acute distress Resp:? CTA bilateral CVS: S1,S2,RRR GI: +BS, NT, no distention Skin: dressing in place and being changed by surgery-has wound vac Neuro:? motor grossly intact Psych: appropriate affect. Objective Data Active Medications Acetaminophen (Acetaminophen 325 Mg Tablet) 650 mg PO Q6H PRN PRN Reason: Pain, Mild (Pain Scale 1-3) Hydromorphone HCl (Hydromorphone Hcl 0.5 Mg/0.5 Ml Syringe) 0.5 mg IVPUSH Q2H PRN; Protocol PRN Reason: Pain, Severe (Pain Scale 7-10) Piperacillin Sod/Tazobactam (Sod 4.5 gm/ Sodium Chloride) 100 mls @ 200 mls/hr IV Q6H [facility] Last Admin: 01/12/22 12:13 Dose: 200 mls/hr Documented By: HARMONY Vancomycin HCl 1,250 mg/ (Sodium Chloride) 250 mls @ 166.667 mls/hr IV Q12H [facility] Last Infusion: 01/12/22 12:14 Dose: 0 mls/hr Documented By: HARMONY Melatonin (Melatonin 3 Mg Tablet) 6 mg PO BEDTIME PRN PRN Reason: Insomnia Ondansetron HCl (Ondansetron Hcl 4 Mg/2 Ml Vial) 4 mg IVPUSH Q8H PRN PRN Reason: Nausea and Vomiting Oxycodone HCl (Oxycodone Hcl Immed Release 5 Mg Tablet) 5 mg PO Q4H PRN PRN Reason: Pain, Moderate (Pain Scale 4-6 Pharmacy Consult (Consult Rx Perform Med Rec) 1 each MISCELLANE ONCE PRN PRN Reason: Consult order Pharmacy Consult (Consult Rx Vancomycin Dosing) 1 each MISCELLANE DAILY PRN PRN Reason: Consult order Sodium Chloride (0.9 % Sodium Chloride Flush 3 Ml Syringe) 3 ml IVFLUSH QSHIFT [facility] Last Admin: 01/12/22 08:24 Dose: Not Given Documented By: HARMONY Non-Admin Reason: picc Labs CBC & Chem 7: 01/09/22 05:48 01/12/22 08:10 Labs: Laboratory Results - last 24 hr 01/12/22 01/12/22 08:10 08:10 Estim Creat Clear Calc 119.2 Estimated GFR > 60 Random Vancomycin 20.0 Microbiology Microbiology Results: Microbiology 01/09/22 12:25 Blood Culture - Preliminary Blood - Venous No growth after 48 hours. 01/09/22 12:25 Blood Culture - Preliminary Blood - Venous No growth after 48 hours. Assessment and Plan (1) Bacteremia: Status: Acute (2) Acute cephalic vein thrombosis: Status: Acute Plan 61-year-old male with a pertinent history of essential hypertension, ?diet-controlled diabetes mellitus, alcohol use disorder who presents to the emergency department at the behest of his primary care physician for evaluation of right foot wound. #.?Sepsis due to right foot gas gangrene and osteomyelitis -amputation of right great toe and 2nd toe with debridement right foot by Dr. Green 01/06 Blood culture grew-gamella morbillorum/Fusobacteremium species .repeat blood cultures neg@48hrs -Continue Vanco and Zosyn for now, DC clinda on 01/07 -ID to decide on DC Abx and lenght of treatment -s/p PICC -Surgery will arrange for wound vac Ertapenem 1 g daily for six weeks and po flagyl 500 mg bid for 14 days unless any new cultures different from yesterday. #.? Type A lactic acidosis due to above #.? Significant leukocytosis : resolved. #.? Transaminitis due to sepsis in a patient with fatty liver #.? Coagulopathy due to sepsis #. ?diet controlled diabetes mellitus -A1c is 5.4 #.? Essential hypertension -hold home antihypertensives for now #.? Alcohol use disorder -patient states his last drink was 2 weeks ago.? Monitor for withdrawal but defer benzo treatment currently Positive superficial thrombus in the right cephalic vein,possible at iv site: d/w hemtology Dr mc -recomended 1 monthof AC. will add eliquis Diet:?diabetic Full code Need for inpatient: Sepsis d/t osteomylitis, gas gangrene that needs IV Abx and post op care,need safe arranagement of wound vac and antibiotics Quality Stroke Does the patient have a stroke diagnosis?: No VTE Prior VTE?: No VTE Risk Level:: Medical - moderate - high VTE Device Contraindication: Treatment Not Indicated VTE Drug Contraindication: Treatment Not Indicated
--- NOTE | 2022-01-12 12:54 | P.PNGS_ITS ---
Subjective Subjective Date of Service: 01/12/22 Interval history: Feels ok. No new complaints. Physical Exam Vital Signs: Vital Signs: Last Vital Signs Temp 98 F 01/12/22 11:25 Pulse 95 01/12/22 11:25 Resp 18 01/12/22 11:25 BP 126/70 01/12/22 11:25 Pulse Ox 95 01/12/22 11:25 O2 Del Method 01/12/22 11:25 O2 Flow Rate 2 01/06/22 11:14 BMI result Body Mass Index 33.5 Const: General: comfortable and no acute distress Orientation/consciousness: patient oriented x3 Skin: General skin exam: no rashes or lesions noted Neuro: General: patient oriented x3 and moves all extremities Extrem: Other: right toe amputation site clean, granulation tissue at wound base, bone remains exposed, no evidence of necrosis, purulence Objective Data Active Medications Acetaminophen (Acetaminophen 325 Mg Tablet) 650 mg PO Q6H PRN PRN Reason: Pain, Mild (Pain Scale 1-3) Hydromorphone HCl (Hydromorphone Hcl 0.5 Mg/0.5 Ml Syringe) 0.5 mg IVPUSH Q2H PRN; Protocol PRN Reason: Pain, Severe (Pain Scale 7-10) Piperacillin Sod/Tazobactam (Sod 4.5 gm/ Sodium Chloride) 100 mls @ 200 mls/hr IV Q6H [facility] Last Infusion: 01/12/22 12:54 Dose: 0 mls/hr Documented By: HARMONY Vancomycin HCl 1,250 mg/ (Sodium Chloride) 250 mls @ 166.667 mls/hr IV Q12H [facility] Last Infusion: 01/12/22 12:14 Dose: 0 mls/hr Documented By: HARMONY Melatonin (Melatonin 3 Mg Tablet) 6 mg PO BEDTIME PRN PRN Reason: Insomnia Ondansetron HCl (Ondansetron Hcl 4 Mg/2 Ml Vial) 4 mg IVPUSH Q8H PRN PRN Reason: Nausea and Vomiting Oxycodone HCl (Oxycodone Hcl Immed Release 5 Mg Tablet) 5 mg PO Q4H PRN PRN Reason: Pain, Moderate (Pain Scale 4-6 Pharmacy Consult (Consult Rx Perform Med Rec) 1 each MISCELLANE ONCE PRN PRN Reason: Consult order Pharmacy Consult (Consult Rx Vancomycin Dosing) 1 each MISCELLANE DAILY PRN PRN Reason: Consult order Sodium Chloride (0.9 % Sodium Chloride Flush 3 Ml Syringe) 3 ml IVFLUSH QSHIFT [facility] Last Admin: 01/12/22 08:24 Dose: Not Given Documented By: HARMONY Non-Admin Reason: picc Labs CBC & Chem 7: 01/09/22 05:48 01/12/22 08:10 Labs: Laboratory Results - last 24 hr 01/12/22 01/12/22 08:10 08:10 Estim Creat Clear Calc 119.2 Estimated GFR > 60 Random Vancomycin 20.0 Microbiology Microbiology Results: Microbiology 01/09/22 12:25 Blood Culture - Preliminary Blood - Venous No growth after 48 hours. 01/09/22 12:25 Blood Culture - Preliminary Blood - Venous No growth after 48 hours. Procedures Date of Service Date of Service: 01/12/22 Progress Note: A&P Assessment and plan (1) Amputation of toe of right foot: Status: Acute (2) Encounter for management of wound VAC: Status: Acute Plan S/p amputation of right first and second toe on 01/06/22, now with wound vac in place. Wound vac dressing changed today. Amputation site clean with some granul ation tissue. Home wound vac sponge placed with good seal. Encouraged right leg elevation to reduce edema. Plan is for d/c to home tomorrow with [facility] services. Wound vac to be changed 3x/week. Time Spent With Patient Time: Total time spent is greater than 50% in coordination of care (as documented) at patient's floor/unit and/or counseling patient: Quality Stroke Does the patient have a stroke diagnosis?: No VTE Prior VTE?: No VTE Risk Level:: Medical - moderate - high VTE Device Contraindication: Treatment Not Indicated VTE Drug Contraindication: Treatment Not Indicated
[2022-01-12 15:46] VITALS: BP 111/72; PULSE 63; RESP 17; TEMP 36.6; O2SAT 95
[2022-01-12 19:44] VITALS: BP 106/64; PULSE 67; RESP 17; TEMP 36.9; O2SAT 94
[2022-01-12] MEDS: Apixaban 5 MG TABLET PO (20:09)
[2022-01-12 23:31] VITALS: BP 110/59; RESP 16; TEMP 36.7; O2SAT 92
[2022-01-13] MEDS: vancomycin HCL 1,250 MG in 0.9 % Sodium Chloride 250 ML 166.67 MG IV (00:05)
[2022-01-13] MEDS: Piperacillin Sodium/Tazobactam 4.5 GM in 0.9 % Sodium Chloride 100 ML IV (06:07)
[2022-01-13 06:12] LABS: Creatinine Clr Calc Pharmacy 126.8; Estimated Glomerular Filt Rate > 60
[2022-01-13 07:09] VITALS: BP 109/59; PULSE 64; RESP 18; TEMP 36.1; O2SAT 92
[2022-01-13] MEDS: Apixaban 5 MG TABLET PO (07:57)
[2022-01-13] MEDS: 0.9 % Sodium Chloride Flush 3 ML SYRINGE IVFLUSH (07:58)
--- NOTE | 2022-01-13 08:28 | PM.PNGS ---
Subjective Subjective Date of Service: 01/13/22 Interval history: Patient feels well, had some pain with dressing change Physical Exam Vital Signs: Vital Signs: Last Vital Signs Temp 97 F 01/13/22 07:09 Pulse 64 01/13/22 07:09 Resp 18 01/13/22 07:09 BP 109/59 L 01/13/22 07:09 Pulse Ox 92 01/13/22 07:09 O2 Del Method 01/13/22 07:09 O2 Flow Rate 2 01/06/22 11:14 BMI result Body Mass Index 33.5 Const: General: healthy appearing Nutritional Appearance: well nourished Orientation/consciousness: patient oriented x3 Limitations: no limitations Resp: Effort & Inspection: normal respiratory effort Neuro: General: patient oriented x3 Extrem: Other: Wound vac in place without leakage. Minimal serosang output Objective Data Active Medications Acetaminophen (Acetaminophen 325 Mg Tablet) 650 mg PO Q6H PRN PRN Reason: Pain, Mild (Pain Scale 1-3) Apixaban (Apixaban 5 Mg Tablet) 5 mg PO BID [facility] Last Admin: 01/13/22 07:57 Dose: 5 mg Documented By: HARMONY Hydromorphone HCl (Hydromorphone Hcl 0.5 Mg/0.5 Ml Syringe) 0.5 mg IVPUSH Q2H PRN; Protocol PRN Reason: Pain, Severe (Pain Scale 7-10) Piperacillin Sod/Tazobactam (Sod 4.5 gm/ Sodium Chloride) 100 mls @ 200 mls/hr IV Q6H [facility] Last Infusion: 01/13/22 06:40 Dose: 0 mls/hr Documented By: CINTHIA Vancomycin HCl 1,250 mg/ (Sodium Chloride) 250 mls @ 166.667 mls/hr IV Q12H [facility] Last Infusion: 01/13/22 01:39 Dose: 0 mls/hr Documented By: CINTHIA Melatonin (Melatonin 3 Mg Tablet) 6 mg PO BEDTIME PRN PRN Reason: Insomnia Ondansetron HCl (Ondansetron Hcl 4 Mg/2 Ml Vial) 4 mg IVPUSH Q8H PRN PRN Reason: Nausea and Vomiting Oxycodone HCl (Oxycodone Hcl Immed Release 5 Mg Tablet) 5 mg PO Q4H PRN PRN Reason: Pain, Moderate (Pain Scale 4-6 Pharmacy Consult (Consult Rx Perform Med Rec) 1 each MISCELLANE ONCE PRN PRN Reason: Consult order Pharmacy Consult (Consult Rx Vancomycin Dosing) 1 each MISCELLANE DAILY PRN PRN Reason: Consult order Sodium Chloride (0.9 % Sodium Chloride Flush 3 Ml Syringe) 3 ml IVFLUSH QSHIFT [facility] Last Admin: 01/13/22 07:58 Dose: 3 ml Documented By: HARMONY Labs CBC & Chem 7: 01/09/22 05:48 01/13/22 05:31 Labs: Laboratory Results - last 24 hr 01/12/22 01/12/22 01/13/22 08:10 08:10 05:31 Estim Creat Clear Calc 119.2 126.8 Estimated GFR > 60 > 60 Random Vancomycin 20.0 Procedures Date of Service Date of Service: 01/13/22 Progress Note: A&P Assessment and plan (1) Amputation of toe of right foot: Status: Acute Plan Patient doing well. Ready for discharge. Anticoag for arm blood clot. Wound vac in place. Will need vac change three times weekly. Follow up in office in one week. Wound Care referral recommended for outpatient management. Time Spent With Patient Time: Total time spent is greater than 50% in coordination of care (as documented) at patient's floor/unit and/or counseling patient: Quality Stroke Does the patient have a stroke diagnosis?: No VTE Prior VTE?: No VTE Risk Level:: Medical - moderate - high VTE Device Contraindication: Treatment Not Indicated VTE Drug Contraindication: Treatment Not Indicated
--- NOTE | 2022-01-13 09:09 | MHC.CM.PN ---
PT TO BE MEDICALLY CLEARED FOR D/C TODAY W/[facility], [facility] FOR WOUND [facility] AND [facility] FOR S[facility] AFTER FIRST DOSE OF ERTAPENEM, PT'S AARON WILL BE FOR A TEACH W/[facility] AT 10AM TODAY AND THEN PT WILL BE DISCHARGED HOME.
[2022-01-13 10:33] LABS: Vancomycin Random 15.7 mcg/mL (15-20)
[2022-01-13] MEDS: Ertapenem Sodium 1 GM in 0.9 % Sodium Chloride 50 ML IV (10:45)
[2022-01-13] MEDS: metroNIDAZOLE 500 MG TABLET PO (10:47)
--- NOTE | 2022-01-13 11:39 | PM.DS ---
DS: Providers Provider Date of Service: 01/13/22 Date of admission: 01/05/22 23:54 Primary care physician: Jade Harper MD Consults: 01/05/22 23:30 Consult to General Surgery Routine Consulting Provider: Sandro Green Reason for consultation: R foot gangrene Has provider been notified: Yes 01/06/22 00:05 Consult to Infectious Diseases Routine Consulting Provider: Gladys Dalton Reason for consultation: osteomyelitis Has provider been notified: No 01/12/22 07:39 Consult to Hematology / Oncology Routine Consulting Provider: [facility] Oncology/Hematology Reason for consultation: Positive superficial thrombus in the right cephalic vein ativ site Has provider been notified: No DS: Diagnosis Discharge Diagnosis (1) Amputation of toe of right foot: Status: Acute (2) Encounter for management of wound VAC: Status: Acute (3) Acute cephalic vein thrombosis: Status: Acute (4) Bacteremia: Status: Acute (5) Fatty liver: Status: Acute DS: Summary Hospital Course Hospital Course: 61-year-old male with a pertinent history of essential hypertension, ?diet-controlled diabetes mellitus, alcohol use disorder who presents to the emergency department at the behest of his primary care physician for evaluation of right foot wound.? Patient states he had a callus under his right foot about 3 months ago.? A piece of wood also fell on his right foot about the same time and since then he has had a right foot wound which has not healed.? It has gotten progressively worse with swelling, redness, worsening pain and recently has started draining purulent foul-smelling discharge.? Patient did not see a doctor for it and did not take any antibiotics as he does not like to see doctors.? Does report fever and chills at home.? No nausea, vomiting, chest discomfort, shortness of breath, abdominal pain, changes in urinary or bowel habits.? Denies history of peripheral vascular disease.? Patient states he used to drink about 8 beers a day.? His last drink was 2 weeks ago. In the emergency department, significant leukocytosis with bandemia seen.? CT scan with gas in soft tissue and evidence of osteomyelitis. Hospital course: Patient was admitted for sepsis secondary to foot gangrene and osteomyelitis-patient was started on IV antibiotic and blood cultures sent-subsequently patient had seen by surgery and had amputation of right great toe and 2nd toe with debridement-surgery has placed wound VAC, blood culture reviewed ( please see below in labs section-gamella morbillorum/Fusobacteremium species?)-with ID , echo seems fine , repeat blood cultures negative @48hours: Discussed with ID recommended to send patient home with a type ertapenem for 6 weeks as well as Flagyl for 2 weeks. Patient needs to monitor CBC, BMP, LFT weekly while on antibiotics. Patient also need to follow-up with surgery for foot wound as well as wound VAC management. Wound Care referral recommended for outpatient management. Elevated LFT thought to be related to fatty liver changes, also patient has using alcohol also: Strongly advised to abstain from alcohol, monitor LFTs as above. If remain elevated consider further workup outpatient with PCP. Positive superficial thrombus in the right cephalic vein,possible at? iv site: d/w hemtology Dr Miramontes -recomended 1 monthof AC-added eliquis, continue warm compresses. plan: As above complete the course of antibiotic, follow-up with surgery, monitor CBC BMP, LFTs, ESR, CRP weekly while on antibiotics. Consider workup if LFTs LFT still elevated. Above management discussed with the patient in detail length he understand and in agreement with the above plan, time spent 50 minutes and 50% time spent on counseling. Significant findings: As above. Procedures performed: None. Treatment and response: As above. Complications: None. Time Spent with Patient Time attestation: Total time spent providing and/or coordinating discharge services: Discharge coordination time: Greater than 30 minutes Quality: Safe Use of Opioids Does Pt have an Active Cancer Diagnosis on the Problem List?: No Quality: Stroke Does the patient have a stroke diagnosis?: No Physical Exam Vital Signs: Vital Signs: Last Vital Signs Temp 97 F 01/13/22 07:09 Pulse 64 01/13/22 07:09 Resp 18 01/13/22 07:09 BP 109/59 L 01/13/22 07:09 Pulse Ox 92 01/13/22 07:09 O2 Del Method 01/13/22 07:09 O2 Flow Rate 2 01/06/22 11:14 BMI result Body Mass Index 33.5 Middle-aged male lying in bed in no distress Neck supple, no JVD Regular rate and rhythm, S1-S2 heard Regular breath sounds bilaterally, no wheezing or crackles appreciated Abdomen soft nontender, no guarding, no rigidity Patient is awake, alert and oriented to self, place, time and person ; no focal motor deficit Extremities:? Right lower extremity covered in bandage.Wound vac in place without leakage.? Minimal serosang output Psych: Normal mood DS: Data Data Completed and Pending Completed studies during hospitalization [Text1]: Pending at discharge 01/06/22 10:45 Surgical [PTH] Routine Labs on day of discharge: Laboratory Results - last 24 hr 01/13/22 01/13/22 05:31 09:51 Creatinine 0.78 Estim Creat Clear Calc 126.8 Estimated GFR > 60 Random Vancomycin 15.7 Preliminary micro results at discharge 01/09/22 12:25 Blood Culture - Preliminary Blood - Venous No growth after 48 hours. 01/09/22 12:25 Blood Culture - Preliminary Blood - Venous No growth after 48 hours. Blood Culture (Second) Final 01/10/22-1528 Gram stain results: Gram-positive cocci Note: Gram stain reviewed by a [employer] Operator 2 sets positive/2 sets drawn Gram stain results from blood cultures should be interpreted with caution. A number of factors, including the presence of antibiotics in the specimen and the effect of growth in enriched liquid culturing medium, may cause organisms to react differently with the staining reagents. These factors occasionally cause a Gram-negative organism to stain Gram-positive and vice versa. Results of the initial Gram stain from the culture broth must always be correlated with growth on agar. Organism 1 Gemella morbillorum Susc N/A Susceptibility not routinely performed on this isolate. Organism 2 Fusobacterium species B-Lac Susceptibility Beta-lactamase not produced; suggests PEN/AMP susceptibility Imaging Venous US: Radiologist's impression: ITS Impressions Foot CT 01/05/22 19:53 IMPRESSION: Edema and gas in the soft tissues around the great toe. Gas within the bone of the great toe. Findings consistent with osteomyelitis. This can be further assessed with MRI if clinically warranted. PICC Line Insertion 01/11/22 17:51 IMPRESSION: Repositioning of left upper extremity PICC line as described. Venous Duplex 01/11/22 22:00 IMPRESSION: 1. No evidence of deep venous thrombosis in the visualized veins of the right upper extremity. 2. Positive superficial thrombus in the right cephalic vein from the level the mid forearm distally to the right wrist. ?CT/CT foot RT wo IV con IMPRESSION: Edema and gas in the soft tissues around the great toe. Gas within the bone of the great toe. Findings consistent with osteomyelitis. This can be further assessed with MRI if clinically warranted.? echo: Conclusions: - Normal left ventricular size and systolic function. There is ? mildly increased left ventricular wall thickness.? The visually? estimated ejection fraction is between 55-60%. ? - Diastolic function is normal for age.? - Normal right ventricular cavity size and systolic function.? ? - No obvious vegetation noticed on visualized valves.? Discharge Plan Discharge Anticipated Discharge Date/Time: 01/13/22 11:25 Patient Disposition: Home Health Service Discharge Diagnosis: Sepsis due to right foot gangrene and osteo , bacteremia,Positive superficial thrombus in the right cephalic vein. Referrals: [facility] [Other] - 1 Day ([facility] WILL DELIVER YOUR IV ANTIBIOTICS AND PROVIDE NURSING SUPPORT OVER THE PHONE) [facility] [Outside] - 1 Day ([facility]TIBIOTIC [facility]NAGEMENT) Sandro Green MD [Physician] - 1 Week Po,Jade No MD [Primary Care Provider] - 1 Week Discharge Medications: New Eliquis 5 mg Tablet 5 mg PO BID Qty: 60 0RF metronidazole 500 mg Tablet 500 mg PO Q12H Qty: 28 0RF ertapenem 1 gram recon soln 1 g IV Q24H Qty: 41 0RF Rx Instructions: end date 02/24/22 Continued lisinopril 5 mg tablet 5 mg PO DAILY Qty: 90 2RF sildenafil 50 mg tablet 50 mg PO DAILY PRN (Reason: sexual activity) Qty: 10 12RF hydrochlorothiazide 25 mg tablet 25 mg PO DAILY Discharge Orders: Discharge Order (Routine); Ordered 01/13/22 Ordered By: Dorene Starkey Diet: Advance to usual diet Activity on Discharge: Walk with crutches Stand Alone Forms: Patient Portal Discharge page Activity Restrictions/Additional Instructions: Follow up in office with Dr. Green in 1 week. ([phone]) Call Your Doctor If: -Your temperature exceeds 101.5? F -You experience excessive pain or swelling -You have an unexpected reaction to medication -You have excessive bleeding -You experience continued vomiting/nausea -Your wound shows signs of infection such as increased redness, swelling, excessive pain, drainage (light blood or clear fluid is normal) or heat Care Plan Goals: Patient was admitted for sepsis secondary to foot gangrene and osteomyelitis-patient was started on IV antibiotic and blood cultures sent-subsequently patient had seen by surgery and had amputation of right great toe and 2nd toe with debridement-surgery has placed wound VAC, blood culture reviewed with ID , echo seems fine: Discussed with ID recommended to send patient home with a type ertapenem for 6 weeks as well as Flagyl for 2 weeks. Patient needs to monitor CBC, BMP, LFT weekly while on antibiotics. Patient also need to follow-up with surgery for foot wound as well as wound VAC management. Elevated LFT thought to be related to fatty liver changes, also patient has using alcohol also: Strongly advised to abstain from alcohol, monitor LFTs as above. If remain elevated consider further workup outpatient with PCP. Positive superficial thrombus in the right cephalic vein,possible at? iv site: d/w hemtology Dr Miramontes -recomended 1 monthof AC-added eliquis, continue warm compresses. Health Concerns: As above complete the course of antibiotic, follow-up with surgery, monitor CBC BMP, LFTs, ESR, CRP weekly while on antibiotics. Consider workup if LFTs LFT still elevated. Plan of Treatment: As above. Assessment: As above.
--- NOTE | 2022-01-13 13:07 | W.MHC.F2F ---
Service Date Service Date: 01/13/22 Encounter Date of encounter: 01/13/22 Encounter: Foot osteomyelitis, superficial thrombus of the right sided cephalexin adán Reasons for Services Signs and symptoms assessed: Monitor for any worsening of foot infection or pain or fever , any worsening of right arm pain or new erythema. Monitoring wound VAC Reason for assisted: wound care, diabetic teaching, medication management, medication treatment and teach disease management MD Overseeing Care: Jade Harper Homebound: Leaving the home is medically contraindicated at this time without the asist of a device and/or another person due th the listed conditions above and below. Reason homebound: weakness related to hospital stay Homebound supporting statement: Patient has multiple comorbidities including right foot osteomyelitis and amputation has wound VAC-need help to go to appointment as well as lab draws, wound VAC. Certification: Based on the above findings, I certify that this patient is confined to the home and needs intermittent assisted care, physical therapy and/or speech therapy, or continues to need occupational therapy. The patient is under my care, and I have initiated the establishment of the plan of care. The patient will be followed by a physician who will periodically review the plan of care.
--- NOTE | 2022-01-13 15:07 | MHC.CM.PN ---
REFERRAL FAXED TO [facility] [place] [facility].
--- NOTE | 2022-01-14 12:18 | MHC.CM.ED ---
Patient d/c'd home on 01/13 with [facility], [facility] infusion, and [facility] wound vac. Received telephone call from Sana of [facility]. [facility] to [facility] to [facility] service. Patient did not have any cannisters for the wound vac or other dressing supplies. T/W spoke with Wally via telephone. When he dropped off the wound vac he included 5 canisters, 4 dressing changes and 3 sets of tubing. This info was relayed to Sana at [facility].
== END 2022-01-13 12:38 | disposition home health service (06) | DRG 710 ==
LOC: HO.ED 19:35 → HO.EDOVER 23:59 → HO.S3 01-06 02:27
PROVIDERS: Internal Medicine; Physician Assistant; Radiology Diagnostic Radiology; Surgery; Admitting Provider Student in an Organized Health Care Education/Training Program; Emergency Provider Emergency Medicine; PCP Internal Medicine; Visit Provider Internal Medicine
PROC: 0Y6P0Z0 Detachment at Right 1st Toe, Complete, Open Approach (ICD-10-PCS; principal; 2022-01-06 10:00)
PROC: 0Y6P0Z0 Detachment at Right 1st Toe, Complete, Open Approach (ICD-10-PCS; 2022-01-06 10:00)
DX: A41.9 Sepsis, unspecified organism (principal); E87.20 Acidosis, unspecified; D68.8 Other specified coagulation defects; E11.52 Type 2 diabetes mellitus with diabetic peripheral angiopathy with gangrene; A48.0 Gas gangrene; E11.69 Type 2 diabetes mellitus with other specified complication; M86.9 Osteomyelitis, unspecified; I82.611 Acute embolism and thrombosis of superficial veins of right upper extremity; T82.868A Thrombosis due to vascular prosthetic devices, implants and grafts, initial encounter; Y82.8 Other medical devices associated with adverse incidents; L03.031 Cellulitis of right toe; F10.10 Alcohol abuse, uncomplicated; Z20.822 Contact with and (suspected) exposure to COVID-19; K76.0 Fatty (change of) liver, not elsewhere classified; E78.5 Hyperlipidemia, unspecified; Z79.899 Other long term (current) drug therapy
CPT/HCPCS: 36415; 36573; 73700; 80048; 80053; 80202; 81003; 82077; 82140; 82248; 82550; 82565; 82947; 83036; 83605; 83690; 83735; 84132; 85007; 85025; 85027; 85610; 85730; 87040; 87076; 87185; 87186; 87205; 87635; 88305; 88311; 93005; 93306; 93971; 99285; J0690; J1170; J1335; J2250; J2370; J2405; J2543; J2795; J3010; J3370; P9047

== ENCOUNTER 2022-01-18 12:58 | Outpatient (REF) | payer OTHER, SELFPAY ==
[2022-01-18 13:45] LABS: Alanine Aminotransferase 28 U/L (0-40); Albumin Level 2.8 g/dL (3.5-5.0); Alkaline Phosphatase 100 U/L (39-117); Anion Gap 16 (12-20); Aspartate Amino Transferase 40 U/L (5-37); Bilirubin Direct 0.5 mg/dL (0.0-0.5); Blood Urea Nitrogen 7 mg/dL (9-16); C Reactive Protein 1.44 mg/dL (< or = 0.50); Calcium 8.4 mg/dL (8.4-10.2); Carbon Dioxide 20 mmol/L (22-29); Chloride 106 mmol/L (96-108); Estimated Glomerular Filt Rate > 60; Glucose Random 99 mg/dL (60-115); Potassium 3.8 mmol/L (3.3-5.1); Sodium 138 mmol/L (135-145); Total Protein 6.3 g/dL (6.5-8.0)
== END 2022-01-18 12:59 | disposition home or self-care (01) ==
LOC: HO.HVNA 12:58
PROVIDERS: Visit Provider Internal Medicine
DX: M86.8X7 Other osteomyelitis, ankle and foot (principal); Z79.2 Long term (current) use of antibiotics
CPT/HCPCS: 36415; 80048; 80076; 86140

== ENCOUNTER 2022-01-19 12:44 | Outpatient (RCR) | payer OTHER, SELFPAY | END 2022-02-01 13:34 | disposition home or self-care (01) | LOC: HO.WCC 12:44 | PROVIDERS: PCP Internal Medicine; Visit Provider Physician Assistant | DX: L97.519 Non-pressure chronic ulcer of other part of right foot with unspecified severity (principal); A48.0 Gas gangrene; R60.0 Localized edema; Z89.411 Acquired absence of right great toe | CPT/HCPCS: 99212 ==

== ENCOUNTER 2022-01-20 11:56 | Outpatient (REF) | payer OTHER, SELFPAY ==
[2022-01-20 12:22] LABS: MANUAL DIFF FLAG NO
[2022-01-20 12:50] LABS: Basophils Absolute Auto 0.1 X10*3/uL (0.0-0.2); Basophils Percent Auto 1.4 % (0-2); Eosinophils Absolute Auto 0.2 X10*3/uL (0.0-0.4); Eosinophils Percent Auto 2.8 % (0-4); Hematocrit 39.8 % (42.0-52.0); Hemoglobin 14.1 g/dl (14.0-18.0); Imm Gran Abs Auto 0.01 X10*3/uL (0.00-0.03); Imm Gran Pct Auto 0.2 % (0.0-0.4); Lymphocytes Absolute Auto 1.2 X10*3/uL (1.2-4.9); Lymphocytes Percent Auto 18.4 % (20-40); Mean Corpuscular HGB Conc 35.4 g/dl (31.0-36.0); Mean Corpuscular Hemoglobin 34.1 pg (27.0-33.0); Mean Corpuscular Volume 96.1 fL (80.0-98.0); Mean Platelet Volume 11.3 fL (9.4-12.4); Monocytes Absolute Auto 0.6 X10*3/uL (0.1-1.2); Neutrophils Absolute Auto 4.3 x10*3/uL (2.0-8.3); Neutrophils Percent Auto 67.2 % (45-73); Platelet Count 145 X10*3/uL (160-400); Red Blood Count 4.14 X10*6/uL (4.60-5.80); Red Cell Distribution Width 13.7 % (11.0-16.0); White Blood Count 6.4 X10*3/uL (4.8-10.8)
[2022-01-20 13:00] LABS: Estimated Average Glucose 105 mg/dL; Hemoglobin A1c % 5.3 %
[2022-01-20 13:29] LABS: Alanine Aminotransferase 26 U/L (0-40); Albumin Level 3.2 g/dL (3.5-5.0); Alkaline Phosphatase 114 U/L (39-117); Anion Gap 17 (12-20); Aspartate Amino Transferase 39 U/L (5-37); Bilirubin Total 1.1 mg/dL (0.0-1.0); Blood Urea Nitrogen 8 mg/dL (9-16); Carbon Dioxide 21 mmol/L (22-29); Chloride 103 mmol/L (96-108); Cholesterol 131 mg/dL; Estimated Glomerular Filt Rate > 60; Glucose Random 106 mg/dL (60-115); HDL Cholesterol 32 mg/dL; LDL Cholesterol Calculated 74 mg/dl; Potassium 3.6 mmol/L (3.3-5.1); Sodium 137 mmol/L (135-145); Total Protein 7.1 g/dL (6.5-8.0); Triglycerides 126 mg/dL
[2022-01-20 13:38] LABS: Alanine Aminotransferase 26 U/L (0-40); Albumin Level 3.2 g/dL (3.5-5.0); Alkaline Phosphatase 113 U/L (39-117); Aspartate Amino Transferase 39 U/L (5-37); Bilirubin Direct 0.6 mg/dL (0.0-0.5); Bilirubin Total 1.1 mg/dL (0.0-1.0); C Reactive Protein 1.15 mg/dL (< or = 0.50)
[2022-01-20 13:48] LABS: Free T4 (Free Thyroxine) 0.81 ng/dL (0.71-1.85); Prostate Specific Antigen Scr 0.16 ng/mL (<0.05-4.0); Thyroid Stimulating Hormone 1.74 uIU/mL (0.32-4.0)
[2022-01-20 14:08] LABS: Uric Acid 4.8 mg/dL (3.4-7.0)
[2022-01-20 14:16] LABS: Erythrocyte Sedimentation Rate 34 MM/HR (0-15)
[2022-01-20 14:19] LABS: Folate 7.5 ng/mL (> or = 4.0); Vitamin B12 824 pg/mL (200-900)
== END 2022-01-20 11:57 | disposition home or self-care (01) ==
LOC: HO.LAB 11:56
PROVIDERS: PCP Internal Medicine; Visit Provider Internal Medicine
DX: Z12.5 Encounter for screening for malignant neoplasm of prostate (principal); M86.8X7 Other osteomyelitis, ankle and foot; E11.65 Type 2 diabetes mellitus with hyperglycemia; E78.00 Pure hypercholesterolemia, unspecified; Z79.2 Long term (current) use of antibiotics
CPT/HCPCS: 36415; 80053; 80061; 80076; 82607; 82746; 83036; 84153; 84439; 84443; 84550; 85025; 85652; 86140

== ENCOUNTER 2022-01-25 12:36 | Outpatient (REF) | payer OTHER, SELFPAY ==
[2022-01-25 12:43] LABS: MANUAL DIFF FLAG NO
[2022-01-25 12:51] LABS: Basophils Absolute Auto 0.1 X10*3/uL (0.0-0.2); Basophils Percent Auto 1.3 % (0-2); Eosinophils Absolute Auto 0.1 X10*3/uL (0.0-0.4); Eosinophils Percent Auto 2.1 % (0-4); Hematocrit 38.6 % (42.0-52.0); Hemoglobin 13.5 g/dl (14.0-18.0); Imm Gran Abs Auto 0.01 X10*3/uL (0.00-0.03); Imm Gran Pct Auto 0.2 % (0.0-0.4); Lymphocytes Absolute Auto 1.1 X10*3/uL (1.2-4.9); Lymphocytes Percent Auto 20.6 % (20-40); Mean Corpuscular Volume 97.2 fL (80.0-98.0); Mean Platelet Volume 11.4 fL (9.4-12.4); Monocytes Absolute Auto 0.5 X10*3/uL (0.1-1.2); Monocytes Percent Auto 9.2 % (2-11); Neutrophils Absolute Auto 3.6 x10*3/uL (2.0-8.3); Neutrophils Percent Auto 66.6 % (45-73); Platelet Count 107 X10*3/uL (160-400); Red Blood Count 3.97 X10*6/uL (4.60-5.80); Red Cell Distribution Width 13.5 % (11.0-16.0); White Blood Count 5.3 X10*3/uL (4.8-10.8)
[2022-01-25 13:28] LABS: Erythrocyte Sedimentation Rate 27 MM/HR (0-15)
[2022-01-25 13:36] LABS: Alanine Aminotransferase 31 U/L (0-40); Albumin Level 3.1 g/dL (3.5-5.0); Alkaline Phosphatase 135 U/L (39-117); Anion Gap 16 (12-20); Aspartate Amino Transferase 46 U/L (5-37); Bilirubin Direct 0.5 mg/dL (0.0-0.5); Bilirubin Total 0.8 mg/dL (0.0-1.0); Blood Urea Nitrogen 8 mg/dL (9-16); C Reactive Protein 0.51 mg/dL (< or = 0.50); Carbon Dioxide 25 mmol/L (22-29); Chloride 103 mmol/L (96-108); Estimated Glomerular Filt Rate > 60; Glucose Random 117 mg/dL (60-115); Potassium 3.6 mmol/L (3.3-5.1); Sodium 140 mmol/L (135-145); Total Protein 6.7 g/dL (6.5-8.0)
== END 2022-01-25 12:37 | disposition home or self-care (01) ==
LOC: HO.HVNA 12:36
PROVIDERS: Visit Provider Internal Medicine
DX: M86.171 Other acute osteomyelitis, right ankle and foot (principal); Z79.2 Long term (current) use of antibiotics
CPT/HCPCS: 36415; 80048; 80076; 85025; 85652; 86140

== ENCOUNTER 2022-02-01 12:59 | Outpatient (REF) | payer OTHER, SELFPAY ==
[2022-02-01 13:02] LABS: MANUAL DIFF FLAG NO
[2022-02-01 13:12] LABS: Basophils Absolute Auto 0.1 X10*3/uL (0.0-0.2); Basophils Percent Auto 1.1 % (0-2); Eosinophils Absolute Auto 0.2 X10*3/uL (0.0-0.4); Eosinophils Percent Auto 2.6 % (0-4); Hematocrit 39.4 % (42.0-52.0); Hemoglobin 13.9 g/dl (14.0-18.0); Imm Gran Abs Auto 0.02 X10*3/uL (0.00-0.03); Imm Gran Pct Auto 0.3 % (0.0-0.4); Lymphocytes Absolute Auto 1.1 X10*3/uL (1.2-4.9); Mean Corpuscular HGB Conc 35.3 g/dl (31.0-36.0); Mean Corpuscular Hemoglobin 33.7 pg (27.0-33.0); Mean Corpuscular Volume 95.6 fL (80.0-98.0); Monocytes Absolute Auto 0.7 X10*3/uL (0.1-1.2); Neutrophils Absolute Auto 4.1 x10*3/uL (2.0-8.3); Platelet Count 113 X10*3/uL (160-400); Red Blood Count 4.12 X10*6/uL (4.60-5.80); Red Cell Distribution Width 13.3 % (11.0-16.0); White Blood Count 6.2 X10*3/uL (4.8-10.8)
[2022-02-01 13:53] LABS: Erythrocyte Sedimentation Rate 22 MM/HR (0-15)
[2022-02-01 13:58] LABS: Alanine Aminotransferase 42 U/L (0-40); Albumin Level 3.3 g/dL (3.5-5.0); Alkaline Phosphatase 144 U/L (39-117); Anion Gap 15 (12-20); Aspartate Amino Transferase 55 U/L (5-37); Bilirubin Direct 0.5 mg/dL (0.0-0.5); Bilirubin Total 1.1 mg/dL (0.0-1.0); Blood Urea Nitrogen 7 mg/dL (9-16); C Reactive Protein 0.56 mg/dL (< or = 0.50); Calcium 8.9 mg/dL (8.4-10.2); Carbon Dioxide 25 mmol/L (22-29); Chloride 103 mmol/L (96-108); Estimated Glomerular Filt Rate > 60; Glucose Random 96 mg/dL (60-115); Potassium 3.5 mmol/L (3.3-5.1); Sodium 139 mmol/L (135-145)
== END 2022-02-01 13:00 | disposition home or self-care (01) ==
LOC: HO.HVNA 12:59
PROVIDERS: Visit Provider Internal Medicine
DX: M86.171 Other acute osteomyelitis, right ankle and foot (principal); B96.89 Other specified bacterial agents as the cause of diseases classified elsewhere
CPT/HCPCS: 36415; 80048; 80076; 85025; 85652; 86140

== ENCOUNTER 2022-02-08 11:53 | Outpatient (REF) | payer OTHER, SELFPAY ==
[2022-02-08 12:00] LABS: MANUAL DIFF FLAG NO
[2022-02-08 12:07] LABS: Basophils Percent Auto 0.9 % (0-2); Eosinophils Absolute Auto 0.1 X10*3/uL (0.0-0.4); Eosinophils Percent Auto 3.1 % (0-4); Hematocrit 37.9 % (42.0-52.0); Hemoglobin 13.3 g/dl (14.0-18.0); Imm Gran Abs Auto 0.04 X10*3/uL (0.00-0.03); Imm Gran Pct Auto 0.9 % (0.0-0.4); Lymphocytes Absolute Auto 0.9 X10*3/uL (1.2-4.9); Lymphocytes Percent Auto 20.6 % (20-40); Mean Corpuscular HGB Conc 35.1 g/dl (31.0-36.0); Mean Corpuscular Hemoglobin 33.8 pg (27.0-33.0); Mean Corpuscular Volume 96.4 fL (80.0-98.0); Mean Platelet Volume 11.8 fL (9.4-12.4); Monocytes Absolute Auto 0.4 X10*3/uL (0.1-1.2); Monocytes Percent Auto 8.3 % (2-11); Neutrophils Percent Auto 66.2 % (45-73); Platelet Count 100 X10*3/uL (160-400); Red Blood Count 3.93 X10*6/uL (4.60-5.80); Red Cell Distribution Width 13.2 % (11.0-16.0); White Blood Count 4.6 X10*3/uL (4.8-10.8)
[2022-02-08 13:05] LABS: Erythrocyte Sedimentation Rate 20 MM/HR (0-15)
[2022-02-08 14:58] LABS: Alanine Aminotransferase 47 U/L (0-40); Albumin Level 3.2 g/dL (3.5-5.0); Alkaline Phosphatase 145 U/L (39-117); Anion Gap 14 (12-20); Aspartate Amino Transferase 51 U/L (5-37); Bilirubin Direct 0.5 mg/dL (0.0-0.5); Bilirubin Total 1.3 mg/dL (0.0-1.0); Blood Urea Nitrogen 7 mg/dL (9-16); C Reactive Protein 0.58 mg/dL (< or = 0.50); Calcium 8.8 mg/dL (8.4-10.2); Carbon Dioxide 24 mmol/L (22-29); Chloride 104 mmol/L (96-108); Estimated Glomerular Filt Rate > 60; Glucose Random 156 mg/dL (60-115); Potassium 3.4 mmol/L (3.3-5.1); Sodium 139 mmol/L (135-145); Total Protein 6.7 g/dL (6.5-8.0)
== END 2022-02-08 11:54 | disposition home or self-care (01) ==
LOC: HO.HVNA 11:53
PROVIDERS: Visit Provider Internal Medicine
DX: M86.171 Other acute osteomyelitis, right ankle and foot (principal); Z45.2 Encounter for adjustment and management of vascular access device; Z79.2 Long term (current) use of antibiotics
CPT/HCPCS: 36415; 80048; 80076; 85025; 85652; 86140

== ENCOUNTER 2022-02-15 11:40 | Outpatient (REF) | payer OTHER, SELFPAY ==
[2022-02-15 11:45] LABS: MANUAL DIFF FLAG NO
[2022-02-15 12:25] LABS: Basophils Absolute Auto 0.1 X10*3/uL (0.0-0.2); Eosinophils Absolute Auto 0.1 X10*3/uL (0.0-0.4); Eosinophils Percent Auto 2.3 % (0-4); Hematocrit 38.3 % (42.0-52.0); Hemoglobin 13.4 g/dl (14.0-18.0); Imm Gran Abs Auto 0.02 X10*3/uL (0.00-0.03); Imm Gran Pct Auto 0.4 % (0.0-0.4); Lymphocytes Absolute Auto 0.9 X10*3/uL (1.2-4.9); Lymphocytes Percent Auto 17.8 % (20-40); Mean Corpuscular Hemoglobin 33.5 pg (27.0-33.0); Mean Corpuscular Volume 95.8 fL (80.0-98.0); Mean Platelet Volume 11.7 fL (9.4-12.4); Monocytes Absolute Auto 0.4 X10*3/uL (0.1-1.2); Neutrophils Absolute Auto 3.6 x10*3/uL (2.0-8.3); Neutrophils Percent Auto 70.5 % (45-73); Platelet Count 104 X10*3/uL (160-400); White Blood Count 5.1 X10*3/uL (4.8-10.8)
[2022-02-15 12:39] LABS: Erythrocyte Sedimentation Rate 16 MM/HR (0-15)
[2022-02-15 12:40] LABS: Alanine Aminotransferase 42 U/L (0-40); Albumin Level 3.3 g/dL (3.5-5.0); Alkaline Phosphatase 153 U/L (39-117); Anion Gap 15 (12-20); Aspartate Amino Transferase 44 U/L (5-37); Bilirubin Direct 0.5 mg/dL (0.0-0.5); Bilirubin Total 1.3 mg/dL (0.0-1.0); Blood Urea Nitrogen 6 mg/dL (9-16); C Reactive Protein 0.83 mg/dL (< or = 0.50); Calcium 8.9 mg/dL (8.4-10.2); Carbon Dioxide 24 mmol/L (22-29); Chloride 105 mmol/L (96-108); Estimated Glomerular Filt Rate > 60; Glucose Random 167 mg/dL (60-115); Potassium 3.5 mmol/L (3.3-5.1); Sodium 140 mmol/L (135-145); Total Protein 6.8 g/dL (6.5-8.0)
== END 2022-02-15 11:41 | disposition home or self-care (01) ==
LOC: HO.HVNA 11:40
PROVIDERS: Visit Provider Internal Medicine
DX: M86.171 Other acute osteomyelitis, right ankle and foot (principal); Z45.2 Encounter for adjustment and management of vascular access device; Z79.2 Long term (current) use of antibiotics
CPT/HCPCS: 36415; 80048; 80076; 85025; 85652; 86140

== ENCOUNTER 2022-03-13 09:05 | Outpatient (RCR) | payer OTHER, SELFPAY | END 2022-06-19 16:00 | disposition home or self-care (01) | LOC: HO.WCC 09:05 | PROVIDERS: PCP Internal Medicine; Visit Provider Physician Assistant | DX: E11.621 Type 2 diabetes mellitus with foot ulcer (principal); L97.512 Non-pressure chronic ulcer of other part of right foot with fat layer exposed; T87.81 Dehiscence of amputation stump; I10 Essential (primary) hypertension; Z89.411 Acquired absence of right great toe; Z89.421 Acquired absence of other right toe(s) | CPT/HCPCS: 11042; 11043; 99212 ==

== ENCOUNTER → 2022-03-31 09:24 | Outpatient (BNVA) | payer OTHER, SELFPAY | PROVIDERS: PCP Nurse Practitioner Family; Visit Provider Surgery | DX: Z13.89 Encounter for screening for other disorder (principal) ==

== ENCOUNTER → 2022-04-04 10:36 | Outpatient (BNVA) | payer OTHER, SELFPAY | PROVIDERS: PCP Internal Medicine; Visit Provider Internal Medicine | DX: R78.81 Bacteremia (principal) ==

== ENCOUNTER → 2022-04-14 09:51 | Outpatient (BNVA) | payer OTHER, SELFPAY | PROVIDERS: PCP Internal Medicine; Visit Provider Surgery | DX: Z13.89 Encounter for screening for other disorder (principal) ==

== ENCOUNTER → 2022-05-19 10:02 | Outpatient (BNVA) | payer OTHER, SELFPAY | PROVIDERS: PCP Internal Medicine; Referring Provider Internal Medicine; Visit Provider Surgery | DX: Z13.89 Encounter for screening for other disorder (principal) ==

== ENCOUNTER → 2022-06-12 14:02 | Outpatient (BNVA) | payer OTHER, SELFPAY | PROVIDERS: Visit Provider Physician Assistant | DX: M17.12 Unilateral primary osteoarthritis, left knee (principal) | CPT/HCPCS: 20610; J1020 ==

== ENCOUNTER → 2022-06-16 10:35 | Outpatient (BNVA) | payer OTHER, SELFPAY | PROVIDERS: PCP Internal Medicine; Visit Provider Surgery | DX: Z13.89 Encounter for screening for other disorder (principal) ==

== ENCOUNTER → 2022-06-30 08:45 | Outpatient (BNVA) | payer OTHER, SELFPAY | PROVIDERS: PCP Internal Medicine; Visit Provider Physician Assistant | DX: M17.12 Unilateral primary osteoarthritis, left knee (principal) | CPT/HCPCS: 20610; J7323 ==

== ENCOUNTER 2022-07-03 12:20 | Outpatient (REF) | payer OTHER, SELFPAY ==
[2022-07-03 12:04] VITALS: BP 140/76; PULSE 91; RESP 16; TEMP 36.9; O2SAT 97; BMI 32.5
[2022-07-03 13:31] VITALS: BP 144/79; PULSE 85; RESP 16; O2SAT 95
== END 2022-07-03 12:21 | disposition home or self-care (01) ==
LOC: HO.MS 12:20
PROVIDERS: PCP Internal Medicine; Visit Provider Ophthalmology
PROC: (CPT 67840; principal; 2022-07-03 14:00)
DX: L82.0 Inflamed seborrheic keratosis (principal); H02.9 Unspecified disorder of eyelid; Q82.8 Other specified congenital malformations of skin
CPT/HCPCS: 67840; 88305

== ENCOUNTER → 2022-07-07 09:24 | Outpatient (BNVA) | payer OTHER, SELFPAY | PROVIDERS: PCP Internal Medicine; Visit Provider Physician Assistant | DX: M17.12 Unilateral primary osteoarthritis, left knee (principal) | CPT/HCPCS: 20610; J7323 ==

== ENCOUNTER → 2022-07-14 08:39 | Outpatient (BNVA) | payer OTHER, SELFPAY | PROVIDERS: PCP Internal Medicine; Visit Provider Physician Assistant | DX: M17.12 Unilateral primary osteoarthritis, left knee (principal) | CPT/HCPCS: 20610 ==

== ENCOUNTER 2022-08-03 13:13 | Outpatient (REF) | payer OTHER, SELFPAY ==
--- NOTE | 2022-08-03 08:45 | EMG_ITS ---
Left median and ulnar motor and sensory studies were performed. Left radial sensory study was performed and paraspinal muscles were tested. IMPRESSION: 1. Moderately severe left median neuropathy across carpal tunnel. 2. Mild left ulnar neuropathy across cubital tunnel. MD TULIO Klein/CAITLYN / [id number]
== END 2022-08-03 13:14 | disposition home or self-care (01) ==
LOC: HO.NEURO 13:13
PROVIDERS: PCP Internal Medicine; Visit Provider Physician Assistant
DX: R20.0 Anesthesia of skin (principal); R20.2 Paresthesia of skin
CPT/HCPCS: 95886; 95909

== ENCOUNTER → 2022-08-04 08:17 | Outpatient (BNVA) | payer OTHER, SELFPAY | PROVIDERS: PCP Internal Medicine; Visit Provider Physician Assistant | DX: G56.02 Carpal tunnel syndrome, left upper limb (principal) | CPT/HCPCS: 20526; J1100 ==

== ENCOUNTER 2022-10-25 10:53 | Outpatient (AMB) | payer OTHER, SELFPAY ==
[2022-10-25 11:00] VITALS: BMI 34.4
--- NOTE | 2022-10-25 11:00 | MHC.OFFVIS ---
Intake Vital Signs 10/25/22 11:00 Height 6 ft Weight 254 lb BMI 34.4 Intake Visit Reasons: New Prob - Left CTS - Discuss Surgery Intake Note: Nate 62 yr old male presents today for his left hand CTS. States symptoms started a few months ago and has worsen. States it drake at night time and on and off thought out the day. States he has an injection 08/15/22 with no help with Abby Case. Would like to discuss surgery. Allergies No Known Allergies Allergy (Verified 10/25/22 11:05) HPI New Prob - Left CTS - Discuss Surgery HPI Details Nate is a 62 year old left hand dominant man who presents to discuss his left Carpal tunnel syndrome. 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 He was last seen by JULIANE Case and received a carpal tunnel injection on 08/04/22. He says this was not helpful. He complains of worsening numbness primarily in the radial aspect of his left ring finger, though also in the middle and index fingers and the thumb. Worse at night. He denies having numbness and tingling in his small finger He says he gets some pain that radiates from his wrist up into his elbow He denies any Diabetes, but this is listed in his problem list. His most recent HgA1c was 5.5% on 08/14/22. He is not taking any medication [facility] Medical History Acidosis, lactic Alcohol use Bacteremia Cholelithiasis Colon cancer screening Constipation Erectile dysfunction Fatty liver Guaiac + stool Hypercholesterolemia Hypertension Knee osteoarthritis Lesion of right eyelid Leukocytosis Obesity (BMI 30-39.9) Thrombocytopenia Type 2 diabetes mellitus with hyperglycemia Wet gangrene Surgical History History of amputation of toe (01/06/22) History of left knee surgery Hx of colonoscopy Family History Family/Other Medical history unknown Social History Household Members: Spouse Housing: House Patient Tobacco Use Status: Never used Tobacco e-Cigarette/Vaping Use: Never Used Second Hand Smoke Exposure: No service: No Current occupational status: employed Current occupational exposures/hazards: No Cognitive needs: No Hearing needs: No Vision needs: Yes Review of Systems Const All systems reviewed & are unremarkable except as noted in HPI and below Physical Exam Vital Signs: BMI result Body Mass Index 34.4 Const General: cooperative, healthy appearing and no acute distress Orientation/consciousness: patient oriented x3 HEENT Head: Yes normocephalic and Yes atraumatic Eyes EOM: EOMs intact bilaterally Resp Effort & Inspection: normal respiratory effort and able to speak in complete sentences Cardio Jugular venous distension: no JVD Skin General skin exam: turgor normal Rashes: no rashes Neuro General: patient oriented x3 Extrem Other: Evaluation of Left Upper Extremity: The patient is alert, oriented, and in no acute distress Neuro: Numbness in the median nerve distribution today in clinic. . Normal sensation in the small finger No thenar or intrinsic wasting Good APB muscle belly firing and good finger cross Vascular: Cap refill brisk ROM: He can make a fist and extend all his digits He had visible locking and catching of the left ring finger today in clinic Skin: No lacerations or abrasions. General: No Ecchymosis. No Erythema or evidence of infection. Nerve Conduction Study: IMPRESSION:? 1. Moderately severe left median neuropathy across carpal tunnel. 2. Mild left ulnar neuropathy across cubital tunnel. ? M Glory Pleitez MD 08/03/2022 Psych Appearance: grossly normal Affect: normal affect Attitude: cooperative Assessment & Plan Assessment & Plan (1) Type 2 diabetes mellitus with hyperglycemia: Comment: Dr. Richardson Code(s): E11.65 - Type 2 diabetes mellitus with hyperglycemia (2) Carpal tunnel syndrome on left: Code(s): G56.02 - Carpal tunnel syndrome, left upper limb (3) Cubital tunnel syndrome on left: Code(s): G56.22 - Lesion of ulnar nerve, left upper limb (4) Trigger ring finger of left hand: Code(s): M65.342 - Trigger finger, left ring finger Plan Assessment & Plan: 1. Left Carpal tunnel syndrome, moderate-severe Symptoms intermittent, but daily, worse at night With dense numbness in the radial half of his ring finger 2. Left Ring finger trigger finger I educated him about these conditions I discussed operative and non-operative treatment options The patient would like to proceed with surgery The risks and benefits of operative treatment were discussed with the patient and the patient wishes to proceed with surgery. These risks include, but are not limited to risk of damage to blood vessels, nerves, tendons, infection, recurrence, incomplete relief of preoperative symptoms, persistent pain, possible need for further surgery and the risks associated with regional blocks and anesthesia. The plan is to take the patient to the operating room sometime in the next few weeks for the following procedures: 1. Left Carpal tunnel release, under local 2. Left ring trigger finger release, under local All of the preoperative paperwork including the consent was filled out today. All the patient's questions were answered. The patient understands that they will be contacted by our equipment scheduler soon to schedule this procedure. He would like to have this done sometime in October so he can recover prior to his anniversary in November. He denies blood thinners, asthma, heart, lung, kidney issues He denies any Diabetes, but this is listed in his problem list. His most recent HgA1c was 5.5% on 08/14/22. He is not listed as taking any medication for this 3. Left Cubital tunnel syndrome, mild Normal sensation to the small finger & ulnar aspect of the ring finger No acute intervention indicated at this time If he develops worsening numbness in the small finger, he can follow up to discuss treatment Please note that greater than 20 minutes was spent with this patient going over the history, evaluating the patient and radiographs, formulating possible treatment options, discussing them with the patient, and documenting the visit. Scribed for Lorri Forde MD by Shashi Cano, medical office assistant, on 10/25/22 at 11:25 AM, EST. Coding Level of Care Code Est Pt Level 4 (38814) Diagnoses Type 2 diabetes mellitus with hyperglycemia E11.65 Carpal tunnel syndrome on left G56.02 Cubital tunnel syndrome on left G56.22 Trigger ring finger of left hand M65.342
== END 2022-10-25 11:40 | disposition home or self-care (01) ==
PROVIDERS: PCP Internal Medicine; Visit Provider Orthopaedic Surgery
DX: G56.02 Carpal tunnel syndrome, left upper limb (principal); G56.22 Lesion of ulnar nerve, left upper limb; M65.342 Trigger finger, left ring finger
CPT/HCPCS: 99214

== ENCOUNTER → 2022-10-25 10:53 | Outpatient (BNVA) | payer OTHER, SELFPAY | PROVIDERS: PCP Internal Medicine; Visit Provider Orthopaedic Surgery ==

== ENCOUNTER 2022-11-14 08:45 | Outpatient (AMB) | payer OTHER, SELFPAY ==
[2022-11-14 08:42] VITALS: BMI 34.4
--- NOTE | 2022-11-14 08:42 | A.OFFVIS_ITS ---
Intake Vital Signs 11/14/22 08:42 Height 6 ft Weight 254 lb BMI 34.4 Intake Visit Reasons: OV LT knee Intake Note: Nate is a 62 year old male who presents today of progressively worsening left knee pain. He describes his pain sharp in nature. Most of pain is along the medial aspect his knee. His pain has gotten worse over the last few years in spite of continued non operative treatments. He has had viscosupplementation injections which gave him minimal relief. He has also had cortisone injections which gave him temporary relief. He has tried Tylenol and anti-inflammatory medicines which gave him minimal relief. He has also done physical therapy exercises which aggravated his pain. He wishes to hold off on surgery for as long as possible. Allergies No Known Allergies Allergy (Verified 11/14/22 08:43) [facility], LAT[facility] Medical History Acidosis, lactic Alcohol use Bacteremia Cholelithiasis Colon cancer screening Constipation Erectile dysfunction Fatty liver Guaiac + stool Hypercholesterolemia Hypertension Knee osteoarthritis Lesion of right eyelid Leukocytosis Obesity (BMI 30-39.9) Thrombocytopenia Type 2 diabetes mellitus with hyperglycemia Wet gangrene Surgical History History of amputation of toe (01/06/22) History of left knee surgery Hx of colonoscopy Family History Family/Other Medical history unknown Social History Household Members: Spouse Housing: House Patient Tobacco Use Status: Never used Tobacco e-Cigarette/Vaping Use: Never Used Second Hand Smoke Exposure: No service: No Current occupational status: employed Current occupational exposures/hazards: No Cognitive needs: No Hearing needs: No Vision needs: Yes Physical Exam Vital Signs: BMI result Body Mass Index 34.4 Const Other: Well-nourished well-developed very friendly male awake alert and oriented x3 in no acute distress Extrem Other: Bilateral lower extremity examination shows good capillary refill, no skin lesions noted, normal sensation light touch Left knee examination shows a minimal effusion, palpable crepitus with range of motion, pain with range of motion, range of motion from -3 degrees to 115 degrees, no instability Office Procedures Joint Injection/Drain Joint Injection/Drain Primary Site: left knee Prep: site was prepped using aseptic technique Injected: 60 mg of, Kenalog and 1% plain lidocaine Procedure: The patient tolerated the procedure well Coding - Large joint Procedure code (CPT) selection complete Results Reviewed Results Reviewed: 11/14/22 08:37 Lidocaine HCl 2 % MPF [Xylocaine 2 % MPF] 5 ml .ROUTE .STK-MED ONE Triamcinolone Acetonide [Kenalog-40] 40 mg .ROUTE .STK-MED ONE 11/14/22 08:41 Triamcinolone Acetonide [Kenalog-40] 40 mg .ROUTE .STK-MED ONE X-rays of the patient's left knee taken previously show severe joint space narrowing most significant in the medial compartment, subchondral sclerosis, no acute bony abnormalities Assessment & Plan Assessment & Plan (1) Arthritis of left knee: Code(s): M17.12 - Unilateral primary osteoarthritis, left knee Plan Mr. Correa presents with progressively worsening left knee pain due to degenerative joint disease. I had a lengthy discussion with the patient regarding the treatment options. Wishes to hold off on total knee replacement surgery for as long as possible. I agree with this plan. The risks and benefits of a left knee cortisone injection were discussed at length with the patient. The patient wished to proceed. He tolerated the injection well. He will continue with his activity modifications. He will follow up with me on an as-needed basis should his symptoms not plateau at an acceptable level over the next few months. Feel free to call me at any time should questions regarding his orthopedic management arise. I spent 15 minutes in reviewing the patient's records and imaging studies, seeing the patient and documenting in the medical record. Orders: Orders AMB Joint Injection/Aspiration Today M17.12 - Unilateral primary osteoarthritis, left knee Coding Level of Care Code Est Pt Level 1 (90175) Diagnoses Arthritis of left knee M17.12 CPT Codes Coding - Large joint: 98385 - Large joint ([id number])
== END 2022-11-14 08:52 | disposition home or self-care (01) ==
PROVIDERS: PCP Internal Medicine; Visit Provider Orthopaedic Surgery
DX: M17.12 Unilateral primary osteoarthritis, left knee (principal)
CPT/HCPCS: 20610; 99214

== ENCOUNTER → 2022-11-14 | Outpatient (BNVA) | payer OTHER, SELFPAY | PROVIDERS: PCP Internal Medicine; Visit Provider Orthopaedic Surgery | DX: M17.12 Unilateral primary osteoarthritis, left knee (principal) | CPT/HCPCS: 20610; J3301 ==

== ENCOUNTER 2022-11-20 07:22 | Day surgery (SDC) | payer OTHER, SELFPAY ==
[2022-11-20 07:58] VITALS: BMI 34.4
--- NOTE | 2022-11-20 08:58 | W.PM.OPN ---
Operative Note Operative Note Date of Service: 11/20/22 Narrative: Preop diagnosis: 1. left Carpal tunnel syndrome 2. Left ring finger trigger finger Postop diagnosis: same Procedure: 1. left Carpal tunnel release 2. Left ring finger trigger release Surgeon: Lorri Forde MD Anesthesia: local block using 1% lidocaine with epinephrine Findings: Thickened transverse carpal ligament. no locking and catching after A1 alfredo release EBL: Less than 5 mL Specimens: None Complications: None Disposition: Brought to recovery room in stable condition Plan: Follow-up for 10-14 days for wound check and suture removal Indications: The patient is 62 years old, with a left ring finger trigger finger, and left carpal tunnel syndrome that have been unresponsive to nonoperative management. The risks and benefits of operative treatment including but not limited to risk of damage to blood vessels, nerves, tendons, infection, persistent pain, persistent symptoms, or possible need for additional surgery were discussed with the patient and the patient wishes to proceed with surgery. Procedure: Once consent was obtained a local block was performed using a combination of 1% lidocaine with epinephrine. The patient was then brought back to the operating suite and placed on the operative table in supine position. The left upper extremity was prepped and draped in a standard surgical fashion. Once assured that we had a good block, a 2.0 cm oblique incision was made centered over the A1 alfredo of the left ring finger . The incision was made through the skin to the subcutaneous tissues using a #15 blade. Careful dissection was made down to the level of the A1 alfredo using tenotomy scissors, with care being taken to protect the nearby neurovascular structures. A longitudinal incision was made in the A1 alfredo 1st using a #15 blade, then using tenotomy scissors under direct visualization. The A1 alfredo was noted to be thickened. Following our A1 alfredo release, we no longer saw any locking or catching of the digit with flexion and extension. Once assured that we had a good block, a 2.5 cm longitudinal incision was made centered over the carpal tunnel. The incision was made through the skin to the subcutaneous tissues using a #15 blade. Dissection was made down to the level of the transverse carpal ligament with care being taken to protect the palmar cutaneous nerve. Once the transverse carpal ligament was clearly visualized, a longitudinal incision was made in the transverse carpal ligament 1st using a #15 blade, then using tenotomy scissors under direct visualization. Care was taken to look for and protect the motor branch of the median nerve when seen in this area. Once satisfied with our carpal tunnel release the wounds were copiously irrigated with normal saline and hemostasis was obtained with a brief period of local pressure. The skin edges were reapproximated with some 4.0 and 5.0 nylon suture material and a sterile dressing was applied. The patient appears to have tolerated the procedure well and with no complications. All digits were well vascularized at the conclusion of the case.
--- NOTE | 2022-11-20 13:17 | MHC.SHP ---
Pre-Procedural Eval Section A Date of Service: 11/20/22 The patient is an INPATIENT: No Changes since office visit: No Cold of Flu in the past 2 weeks, No New Medical Problems, No Changes in Medication and No Patient answered all questions The History & Physical has been completed within 30 days and I have reviewed it.: Yes Section B Chief Complaint: Trigger finger, left ring finger,carpal tunnel rel Allergies: Allergies Allergy/AdvReac Type Severity Reaction Status Date / Time No Known Allergies Allergy Verified 11/14/22 08:43 Plan I have reviewed the history and physical and performed a pertinent physical examination on my patient. No changes have occurred unless specified. Time Spent With Patient Time: Total time managing care of this patient today ____ minutes.
== END 2022-11-20 10:20 | disposition home or self-care (01) ==
PROVIDERS: PCP Internal Medicine; Visit Provider Orthopaedic Surgery
PROC: (CPT 64721; principal; 2022-11-20 08:40)
PROC: (CPT 26055; 2022-11-20 08:40)
DX: G56.02 Carpal tunnel syndrome, left upper limb (principal); M65.342 Trigger finger, left ring finger; R20.0 Anesthesia of skin; I10 Essential (primary) hypertension; E11.65 Type 2 diabetes mellitus with hyperglycemia; E78.00 Pure hypercholesterolemia, unspecified; Z79.899 Other long term (current) drug therapy; Z98.890 Other specified postprocedural states
CPT/HCPCS: 64721; 26055; J0171

== ENCOUNTER → 2022-11-20 07:22 | Outpatient (BNV) | payer OTHER, SELFPAY | PROVIDERS: PCP Internal Medicine; Visit Provider Orthopaedic Surgery | DX: G56.02 Carpal tunnel syndrome, left upper limb (principal); M65.342 Trigger finger, left ring finger | CPT/HCPCS: 26055; 64721 ==

== ENCOUNTER 2022-11-22 14:45 | Outpatient (AMB) | payer OTHER, SELFPAY ==
[2022-11-22 14:51] VITALS: BMI 34.4
--- NOTE | 2022-11-22 14:51 | A.OFFVIS_ITS ---
Intake Vital Signs 11/22/22 14:51 Height 6 ft Weight 254 lb BMI 34.4 Intake Visit Reasons: P/O left hand CTR 11/20/22 Intake Note: Nate 62 yr old male presents today for a wound check for his P.O left hand CTR from 11/20/22. States he has redness and bruising below his dressing. 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 He complains of swelling, redness, and bruising in his hand an finger. He was worried he may have an infection and that the swelling was not normal. He denies any symptoms of infection [facility] Medical History Acidosis, lactic Alcohol use Bacteremia Cholelithiasis Colon cancer screening Constipation Erectile dysfunction Fatty liver Guaiac + stool Hypercholesterolemia Hypertension Knee osteoarthritis Lesion of right eyelid Leukocytosis Obesity (BMI 30-39.9) Thrombocytopenia Type 2 diabetes mellitus with hyperglycemia Wet gangrene Surgical History History of amputation of toe (01/06/22) History of left knee surgery Hx of colonoscopy Family History Family/Other Medical history unknown Social History Household Members: Spouse Housing: House Patient Tobacco Use Status: Never used Tobacco e-Cigarette/Vaping Use: Never Used Second Hand Smoke Exposure: No service: No Current occupational status: employed Current occupational exposures/hazards: No Cognitive needs: No Hearing needs: No Vision needs: Yes Review of Systems Const All systems reviewed & are unremarkable except as noted in HPI and below Physical Exam Vital Signs: BMI result Body Mass Index 34.4 Const General: no acute distress and alert Orientation/consciousness: patient oriented x3 Neuro General: patient oriented x3 Extrem Other: The patient was alert oriented and in no acute distress The incisions are healing well with no erythema drainage or evidence of infection. He has some ecchymosis in the volar distal forearm proximal to carpal tunnel Not particularly tender about carpal tunnel incision Do not see any erythema or drainage or other evidence of infection. Cap refill is brisk Psych Appearance: grossly normal Affect: normal affect Attitude: cooperative Assessment & Plan Assessment & Plan (1) Type 2 diabetes mellitus with hyperglycemia: Comment: Dr. Richardson Code(s): E11.65 - Type 2 diabetes mellitus with hyperglycemia (2) Carpal tunnel syndrome on left: Code(s): G56.02 - Carpal tunnel syndrome, left upper limb (3) Cubital tunnel syndrome on left: Code(s): G56.22 - Lesion of ulnar nerve, left upper limb (4) Trigger ring finger of left hand: Code(s): M65.342 - Trigger finger, left ring finger Plan Assessment & Plan: 1. Left Carpal tunnel syndrome, S/P release DOS: 11/20/22 Symptoms intermittent, but daily, worse at night With dense numbness in the radial half of his ring finger 2. Left Ring finger trigger finger, S/P release DOS: 11/20/22 He is here for a wound check He was concerned about having a possible infection as he had pain, swelling, erythema, and ecchymosis under his dressing He has no evidence of infection, he does have some swelling and ecchymosis but this is within expectation for 2 days post-op I told him to work on gentle hand and wrist ROM exercises at home, and explained the importance of bringing his fingers closed to a weak fist and back into extension I educated him on the signs of infection, if he has any increased erythema, warmth, drainage, or pain during this holiday weekend he should contact the clinic or attend the ED He was placed in a fresh bandage today, which he will wear until Sunday. After that follow his postop instructions. Follow up in 8-12 days as scheduled 3. Left Cubital tunnel syndrome, mild Normal sensation to the small finger & ulnar aspect of the ring finger No acute intervention indicated at this time If he develops worsening numbness in the small finger, he can follow up to discuss treatment Scribed for Lorri Forde MD by Shashi Cano medical office secretary, on 11/22/22 at 3:00 PM, EST. Coding Level of Care Code Global (37374) Diagnoses Type 2 diabetes mellitus with hyperglycemia E11.65 Carpal tunnel syndrome on left G56.02 Cubital tunnel syndrome on left G56.22 Trigger ring finger of left hand M65.342
== END 2022-11-22 15:22 | disposition home or self-care (01) ==
PROVIDERS: PCP Internal Medicine; Visit Provider Orthopaedic Surgery
DX: E11.65 Type 2 diabetes mellitus with hyperglycemia (principal); G56.02 Carpal tunnel syndrome, left upper limb; G56.22 Lesion of ulnar nerve, left upper limb; M65.342 Trigger finger, left ring finger
CPT/HCPCS: 99024

== ENCOUNTER → 2022-11-22 14:45 | Outpatient (BNVA) | payer OTHER, SELFPAY | PROVIDERS: PCP Internal Medicine; Visit Provider Orthopaedic Surgery ==

== ENCOUNTER 2022-11-30 07:09 | Outpatient (REF) | payer OTHER, SELFPAY ==
[2022-11-30 11:57] LABS: MANUAL DIFF FLAG NO
[2022-11-30 12:20] LABS: Basophils Absolute Auto 0.1 X10*3/uL (0.0-0.2); Basophils Percent Auto 0.9 % (0-2); Eosinophils Absolute Auto 0.1 X10*3/uL (0.0-0.4); Eosinophils Percent Auto 0.7 % (0-4); Hematocrit 45.1 % (42.0-52.0); Hemoglobin 15.9 g/dl (14.0-18.0); Imm Gran Abs Auto 0.01 X10*3/uL (0.00-0.03); Imm Gran Pct Auto 0.1 % (0.0-0.4); Immature Retic Fraction 2.1 % (2.3-13.4); Lymphocytes Absolute Auto 0.9 X10*3/uL (1.2-4.9); Lymphocytes Percent Auto 13.4 % (20-40); Mean Corpuscular HGB Conc 35.3 g/dl (31.0-36.0); Mean Corpuscular Hemoglobin 34.5 pg (27.0-33.0); Mean Corpuscular Volume 97.8 fL (80.0-98.0); Mean Platelet Volume 11.4 fL (9.4-12.4); Monocytes Absolute Auto 0.6 X10*3/uL (0.1-1.2); Monocytes Percent Auto 9.5 % (2-11); Neutrophils Absolute Auto 5.1 x10*3/uL (2.0-8.3); Neutrophils Percent Auto 75.4 % (45-73); Red Blood Count 4.61 X10*6/uL (4.60-5.80); Red Cell Distribution Width 13.3 % (11.0-16.0); Retic HGB Equivalent 40.2 pg (30.0-35.0); Reticulocyte Percent 1.3 % (0.5-1.8); Reticulocytes Absolute 0.059 X10*6/uL (0.026-0.095); White Blood Count 6.7 X10*3/uL (4.8-10.8)
[2022-11-30 12:29] LABS: Platelet Count 92 X10*3/uL (160-400)
[2022-11-30 12:42] LABS: Alanine Aminotransferase 32 U/L (0-40); Albumin Level 3.6 g/dL (3.5-5.0); Alkaline Phosphatase 156 U/L (39-117); Anion Gap 9 (12-20); Aspartate Amino Transferase 27 U/L (5-37); Bilirubin Total 1.9 mg/dL (0.0-1.0); Blood Urea Nitrogen 12 mg/dL (9-16); Calcium 9.4 mg/dL (8.4-10.2); Carbon Dioxide 26 mmol/L (22-29); Chloride 109 mmol/L (96-108); Cholesterol 197 mg/dL (<200); Estimated Glomerular Filt Rate > 60; Glucose Random 121 mg/dL (60-115); HDL Cholesterol 72 mg/dL (>40); Iron 181 mcg/dL (45-160); LDL Cholesterol Calculated 110 mg/dL (<100); Percent Iron Saturation 62 % (15-50); Potassium 4.3 mmol/L (3.3-5.1); Sodium 140 mmol/L (135-145); Total Iron Binding Capacity 290 mcg/dL (228-428); Total Protein 7.1 g/dL (6.5-8.0); Triglycerides 75 mg/dL (<150); Unsaturated Iron Binding 109 ug/dL
[2022-11-30 12:46] LABS: Ferritin 534 ng/mL (20-250); Free T4 (Free Thyroxine) 0.76 ng/dL (0.71-1.85); Thyroid Stimulating Hormone 2.07 uIU/mL (0.32-4.0)
[2022-11-30 12:48] LABS: Folate 7.6 ng/mL (> or = 4.0); Prostate Specific Antigen Scr 0.15 ng/mL (<0.05-4.0); Vitamin B12 536 pg/mL (200-900)
[2022-11-30 13:55] LABS: Creatinine Urine 120.36 mg/dL; Microalbum/Creatinine Ratio Ur 8.3 ug/mg cr (<30)
== END 2022-11-30 07:10 | disposition home or self-care (01) ==
LOC: HO.10HDL 07:09
PROVIDERS: Visit Provider Internal Medicine
DX: E78.00 Pure hypercholesterolemia, unspecified (principal); E11.65 Type 2 diabetes mellitus with hyperglycemia; Z12.5 Encounter for screening for malignant neoplasm of prostate
CPT/HCPCS: 36415; 80053; 80061; 82043; 82570; 82607; 82728; 82746; 83540; 84153; 84439; 84443; 85025; 85045; 86900; 86901

== ENCOUNTER 2022-12-04 10:39 | Outpatient (AMB) | payer OTHER, SELFPAY ==
[2022-12-04 10:42] VITALS: BP 142/82; PULSE 83; O2SAT 98; BMI 34.3
--- NOTE | 2022-12-04 10:42 | MHC.PC.OV ---
Vital Signs 12/04/22 10:42 Height 6 ft Weight 253 lb BMI 34.3 BP 142/82 H Blood Pressure Location Lt brachial Position Sitting Pulse 83 Pulse Source Pulse Oximeter Pulse Oximetry (%) 98 Oxygen Delivery Method Room Air Intake Visit Reasons: DM Allergies No Known Allergies Allergy (Verified 12/04/22 10:42) Medication List - Last Reconciled 12/04/22 by Jade Harper MD celecoxib (Celebrex) 200 mg PO BID 30 days lisinopril 5 mg PO DAILY [prosthetic shoe As directed] [right great toe prosthetic As directed] sildenafil 50 mg PO DAILY PRN simvastatin 5 mg PO BEDTIME Tobacco use date assessed: 08/14/22 Dental Screening Dental Screen Date: 12/04/22 Did you have a dental visit in the last 12 months?: Yes Did you have a dental problem in the last 6 months where you did not have access to dental care?: No Was dental information given to patient?: Patient has dentist HPI DM HPI Details 62-year-old obese male with diabetes mellitus hypercholesterolemia osteoarthritis hypertension peripheral vascular disease last seen in July 2022 having an amputation of the right toe. Patient is here for follow-up colonoscopy is up-to-date with tubular adenoma in September 2021. Rib review of the notes patient follows up with orthopedics had left carpal tunnel an ring finger trigger release October 2022 BP has been good at home . suture to be taken off tomorrow PFSH Medical History Acidosis, lactic Alcohol use Bacteremia Cholelithiasis Colon cancer screening Constipation Erectile dysfunction Fatty liver Guaiac + stool Hypercholesterolemia Hypertension Knee osteoarthritis Lesion of right eyelid Leukocytosis Obesity (BMI 30-39.9) Thrombocytopenia Type 2 diabetes mellitus with hyperglycemia Wet gangrene Surgical History History of amputation of toe (01/06/22) History of left knee surgery Hx of colonoscopy Family History Family/Other Medical history unknown Social History Household Members: Spouse Housing: House Patient Tobacco Use Status: Never used Tobacco e-Cigarette/Vaping Use: Never Used Second Hand Smoke Exposure: No service: No Current occupational status: employed Current occupational exposures/hazards: No Cognitive needs: No Hearing needs: No Vision needs: Yes Questionnaire Thrive Questionnaire Date Thrive assessed: 08/14/22 AUDIT C Alcohol Use Questionnaire (AUDIT-C) 1. How often do you have a drink containing alcohol?: 2-4 times a month 2. How many drinks containing alcohol do you have on a typical day when you are drinking?: 1 or 2 3. How often do you have six or more drinks on one occasion?: Never Total Score: 2 CECILY-7 AMB Questionnaire CECILY-7 Date CECILY - 7 assessed: 08/14/22 Source: Developed by Drs. Redd Sutton, Malathi Covarrubias, Lauri Berg and colleagues, with an educational phill from [employer]. Physical exam (Primary Care) Vital Signs: Last Vital Signs Pulse 83 12/04/22 10:42 BP 142/82 H 12/04/22 10:42 Pulse Ox 98 12/04/22 10:42 Oxygen Delivery Method Room Air 12/04/22 10:42 BMI result Body Mass Index 34.3 Tobacco/Smoking Status: Tobacco use Status Tobacco use date assessed 08/14/22 12/04/22 10:43 Patient Tobacco Use Status Never used Tobacco 12/04/22 10:43 e-Cigarette/Vaping Use Never Used 12/04/22 10:43 Thrive Assessment: Date of Thrive Assessment Date Thrive assessed 08/14/22 12/04/22 10:43 Const General: alert; No acute distress Eyes Conjunctivae: conjunctivae normal Resp Auscultation: clear to auscultation bilaterally Cardio Rate: regular rate Rhythm: regular rhythm GI Inspection: Yes normal to inspection Extrem General: Yes normal to inspection and No edema Results AMB Hemoglobin A1c AMB Hemoglobin A1c 5.1 % Last Edit by Paola Sweeney CMA on 12/04/22 11:07 Results Reviewed Results Reviewed: Laboratory Last Values Hgb A1c (Clinic) 5.1 % (4.0-6.0) 12/04/22 10:43 Assessment and Plan Assessment & Plan (1) Type 2 diabetes mellitus with hyperglycemia: Comment: Dr. Richardson Code(s): E11.65 - Type 2 diabetes mellitus with hyperglycemia Plan: Decrease the amount of carbohydrate intake, pasta, bread, rice and potatoes are all sugar and that is aside from all the sweet stuff, remember that fruits are good but they are Sweet also. Hemoglobin A1c goal of less than 6.5 patient is on diet control (2) Hypertension: Code(s): I10 - Essential (primary) hypertension Plan: Continue with blood pressure medication. Decrease salt intake and exercise patient is on lisinopril 5 mg once a day (3) Hypercholesterolemia: Comment: ? borderline no meds Code(s): E78.00 - Pure hypercholesterolemia, unspecified Plan: Avoid fried foods, chicken skin, eggs, butter margarine, pastries and meat. Be it pork or beef they have a lot of cholesterol LDL goal of less than 100 and triglyceride of less than 150. Blood work just done (4) Amputation of toe of right foot: Comment: Amputation of big toe and 2nd toe Dr. Green 01/06/2022 Code(s): S98.131A - Complete traumatic amputation of one right lesser toe, initial encounter Plan: Stable (5) Carpal tunnel syndrome on left: Comment: Carpal tunnel release October 2022 Code(s): G56.02 - Carpal tunnel syndrome, left upper limb Plan: Patient has just had the release done October 2022 (6) Trigger ring finger of left hand: Code(s): M65.342 - Trigger finger, left ring finger Plan: Ring finger injection October 2022 (7) Thrombocytopenia: Code(s): D69.6 - Thrombocytopenia, unspecified Plan: This is being monitored since 2019 Orders: Orders AMB Hemoglobin A1c Today Z13.9 - Encounter for screening, unspecified Comprehensive Met. Panel 3 Months E78.00 - Pure hypercholesterolemia, unspecified Lipid Panel 3 Months E78.00 - Pure hypercholesterolemia, unspecified Medications: New simvastatin 5 mg PO BEDTIME 30 tabs 5RF E78.00 - Pure hypercholesterolemia, unspecified Refilled lisinopril 5 mg PO DAILY 90 tabs 2RF E78.00 - Pure hypercholesterolemia, unspecified sildenafil 50 mg PO DAILY PRN 10 tabs 12RF sexual activity N52.9 - Male erectile dysfunction, unspecified Coding Level of Care Code Est Pt Level 4 (27584) Diagnoses Type 2 diabetes mellitus with hyperglycemia E11.65 Hypertension I10 Hypercholesterolemia E78.00 Amputation of toe of right foot S98.131A Carpal tunnel syndrome on left G56.02 Trigger ring finger of left hand M65.342 Thrombocytopenia D69.6
== END 2022-12-04 11:25 | disposition home or self-care (01) ==
PROVIDERS: PCP Internal Medicine; Visit Provider Internal Medicine
DX: E11.65 Type 2 diabetes mellitus with hyperglycemia (principal); I10 Essential (primary) hypertension; S98.131A Complete traumatic amputation of one right lesser toe, initial encounter; D69.6 Thrombocytopenia, unspecified; E78.00 Pure hypercholesterolemia, unspecified; G56.02 Carpal tunnel syndrome, left upper limb; M65.342 Trigger finger, left ring finger
CPT/HCPCS: 83036; 99214

== ENCOUNTER 2022-12-05 08:43 | Outpatient (AMB) | payer OTHER, SELFPAY ==
[2022-12-05 08:48] VITALS: BMI 34.3
--- NOTE | 2022-12-05 08:48 | MHC.OFFVIS ---
Intake Vital Signs 12/05/22 08:48 Height 6 ft Weight 253 lb BMI 34.3 Intake Visit Reasons: PO - Left CTR 11/20/2022 AR Intake Note: Nate 62 yr old male presents today for his P.O left hand CTR & left trigger release from 11/20/22. States he is still having some numbness in hand. Sutures removed and steri strips applied. Allergies No Known Allergies Allergy (Verified 12/04/22 10:42) HPI PO - Left CTR 11/20/2022 AR HPI Details Nate Correa is a 62-year-old male who presents today to the office for a post op left CTR and left ring finger trigger release. DOS: 11/20/22. The patient is accompanied by his 30-year-old son today in the office and was present during the visit. He reports that he no longer has locking and catching, and that the arm pain that he was having is much improved. The patient reports some numbness and tingling in his hand, which started after the surgery. He describes his pain as intermittent sharp shooting pain in his hand. [facility] Medical History Acidosis, lactic Alcohol use Bacteremia Cholelithiasis Colon cancer screening Constipation Erectile dysfunction Fatty liver Guaiac + stool Hypercholesterolemia Hypertension Knee osteoarthritis Lesion of right eyelid Leukocytosis Obesity (BMI 30-39.9) Thrombocytopenia Type 2 diabetes mellitus with hyperglycemia Wet gangrene Surgical History History of amputation of toe (01/06/22) History of left knee surgery Hx of colonoscopy Family History Family/Other Medical history unknown Social History Household Members: Spouse Housing: House Patient Tobacco Use Status: Never used Tobacco e-Cigarette/Vaping Use: Never Used Second Hand Smoke Exposure: No service: No Current occupational status: employed Current occupational exposures/hazards: No Cognitive needs: No Hearing needs: No Vision needs: Yes Review of Systems Const All systems reviewed & are unremarkable except as noted in HPI and below Physical Exam Vital Signs: BMI result Body Mass Index 34.3 Const General: cooperative, healthy appearing and no acute distress Orientation/consciousness: patient oriented x3 HEENT Head: Yes normocephalic and Yes atraumatic Eyes EOM: EOMs intact bilaterally Resp Effort & Inspection: normal respiratory effort and able to speak in complete sentences Cardio Jugular venous distension: no JVD Skin General skin exam: turgor normal, ecchymosis (No) and erythema (No) Rashes: no rashes Trauma: no lacerations or abrasions Neuro Other: Vascular: Cap refill brisk General: patient oriented x3 Extrem Other: Patient was alert oriented and in no acute distress His wounds appear to be healing well with no erythema drainage or evidence of infection. Sutures removed and Steri-Strips applied. He can make a fist and extend all of his digits and no longer has locking and catching. He still has some numbness in the median nerve distribution. He says there is sensation but it is not normal. Normal sensation to the ulnar nerve distribution. Psych Appearance: grossly normal Affect: normal affect Attitude: cooperative Assessment & Plan Assessment & Plan (1) Trigger ring finger of left hand: Code(s): M65.342 - Trigger finger, left ring finger (2) Cubital tunnel syndrome on left: Code(s): G56.22 - Lesion of ulnar nerve, left upper limb (3) Carpal tunnel syndrome on left: Comment: Carpal tunnel release October 2022 Code(s): G56.02 - Carpal tunnel syndrome, left upper limb Plan 1. Left Carpal tunnel syndrome, S/P release DOS: 11/20/22 Symptoms intermittent, but daily, worse at night With dense numbness in the radial half of his ring finger 2. Left Ring finger trigger finger, S/P release DOS: 11/20/22 He appears to be doing well postoperatively. He still has some decreased sensation in the median nerve distribution. He has had some improvement in the pain in his hand and arm. He no longer has locking and catching. I talked to him about the importance of wound care and of activity modification. Follow up in four-six weeks to see how he is doing. He may cancel this appointment if he is doing well and has no concerns. 3. Left Cubital tunnel syndrome, mild Normal sensation to the small finger & ulnar aspect of the ring finger No acute intervention indicated at this time If he develops worsening numbness in the small finger, he can follow up to discuss treatment Scribed for Dr. Lorri Forde by Fredy Lazcano, medical charge entry specialist, on 12/05/2022. I, Dr. Lorri Forde, have personally reviewed and agree with the information entered by the scribe. Coding Level of Care Code Global (38903) Diagnoses Trigger ring finger of left hand M65.342 Cubital tunnel syndrome on left G56.22 Carpal tunnel syndrome on left G56.02
== END 2022-12-05 09:26 | disposition home or self-care (01) ==
PROVIDERS: PCP Internal Medicine; Visit Provider Orthopaedic Surgery
DX: M65.342 Trigger finger, left ring finger (principal); G56.22 Lesion of ulnar nerve, left upper limb; G56.02 Carpal tunnel syndrome, left upper limb
CPT/HCPCS: 99024

== ENCOUNTER → 2022-12-05 08:43 | Outpatient (BNVA) | payer OTHER, SELFPAY | PROVIDERS: PCP Internal Medicine; Visit Provider Orthopaedic Surgery ==

== ENCOUNTER 2023-02-14 11:08 | Outpatient (AMB) | payer OTHER, SELFPAY ==
--- NOTE | 2023-02-14 11:10 | A.OFFVIS_ITS ---
Intake Intake Visit Reasons: OV - Left Knee Injection Intake Note: Nate is a 62 year old male who presents today of progressively worsening left knee pain. He describes his pain sharp in nature. Most of pain is along the medial aspect his knee. His pain has gotten worse over the last few years in spite of continued non operative treatments. He has had viscosupplementation injections which gave him minimal relief. He has also had cortisone injections which gave him temporary relief. He has tried Tylenol and anti-inflammatory medicines which gave him minimal relief. He has also done physical therapy exercises which aggravated his pain. He wishes to hold off on surgery for as long as possible. Allergies No Known Allergies Allergy (Verified 12/04/22 10:42) [facility] Medical History Acidosis, lactic Alcohol use Bacteremia Cholelithiasis Colon cancer screening Constipation Erectile dysfunction Fatty liver Guaiac + stool Hypercholesterolemia Hypertension Knee osteoarthritis Lesion of right eyelid Leukocytosis Obesity (BMI 30-39.9) Thrombocytopenia Type 2 diabetes mellitus with hyperglycemia Wet gangrene Surgical History History of amputation of toe (01/06/22) History of left knee surgery Hx of colonoscopy Family History Family/Other Medical history unknown Household Members: Spouse Housing: House Patient Tobacco Use Status: Never used Tobacco e-Cigarette/Vaping Use: Never Used Second Hand Smoke Exposure: No service: No Current occupational status: employed Current occupational exposures/hazards: No Cognitive needs: No Hearing needs: No Vision needs: Yes Physical Exam Const Other: Well-nourished well-developed very friendly male awake alert and oriented x3 in no acute distress Extrem Other: Bilateral lower extremity examination shows good capillary refill, no skin lesions noted, normal sensation light touch Left knee examination shows a minimal effusion, mild crepitus with range of motion, pain with range of motion, no instability Office Procedures Joint Injection/Drain Joint Injection/Drain Primary Site: left knee Prep: site was prepped using aseptic technique Injected: 40 mg of, Kenalog and 1% plain lidocaine Procedure: The patient tolerated the procedure well Coding 69014 - Large joint Procedure code (CPT) selection complete Results Reviewed Results Reviewed: X-rays of the patient's left knee show joint space narrowing, subchondral sclerosis, no acute bony abnormalities Assessment & Plan Assessment & Plan (1) Arthritis of left knee: Code(s): M17.12 - Unilateral primary osteoarthritis, left knee Plan Mr. Correa presents with left knee pain due to degenerative joint disease. I had a lengthy discussion with the patient regarding treatment options. He wishes to hold off on total knee replacement surgery for as long as possible. I agree with this plan. The risks and benefits of a left knee cortisone injection were discussed at length with the patient. The patient wished to proceed. He tolerated the injection well. He will continue with his home exercise program. He will follow up with me on an as-needed basis should his symptoms not plateau at an unacceptable level over the next few months. Feel free to call me at any time should questions regarding his orthopedic management arise. I spent 22 minutes in reviewing the patient's records and imaging studies, seeing the patient and documenting in the medical record. Orders: Orders AMB Joint Injection/Aspiration Today M17.12 - Unilateral primary osteoarthritis, left knee Coding Level of Care Code Est Pt Level 2 (77889) Diagnoses Arthritis of left knee M17.12 CPT Codes Coding - Large joint: 70255 - Large joint ([id number])
== END 2023-02-14 11:18 | disposition home or self-care (01) ==
LOC: HO.HOS 11:08
PROVIDERS: PCP Internal Medicine; Visit Provider Orthopaedic Surgery
DX: M17.12 Unilateral primary osteoarthritis, left knee (principal)
CPT/HCPCS: 20610

== ENCOUNTER → 2023-02-14 11:08 | Outpatient (BNVA) | payer OTHER, SELFPAY | PROVIDERS: PCP Internal Medicine; Visit Provider Orthopaedic Surgery | DX: M17.12 Unilateral primary osteoarthritis, left knee (principal) | CPT/HCPCS: 20610; J3301 ==

== ENCOUNTER 2023-03-29 11:02 | Outpatient (AMB) | payer OTHER, SELFPAY ==
--- NOTE | 2023-03-29 11:02 | AM.OFFVISNUR ---
Intake Intake Visit Reasons: EP, Left knee injection per NE Allergies No Known Allergies Allergy (Verified 12/04/22 10:42) Coding
--- NOTE | 2023-03-29 11:03 | MHC.OFFVIS ---
Intake Intake Visit Reasons: EP, Left knee injection per NE Intake Note: This is a 62 year old male who presents for a left knee injection. last injection done 02/14/[address] Hyatt Allergies No Known Allergies Allergy (Verified 03/29/23 11:03) HPI EP, Left knee injection per NE HPI Details Left knee OA. Injection ~ 6 weeks ago but still with pain PFSH Medical History Acidosis, lactic Alcohol use Bacteremia Cholelithiasis Colon cancer screening Constipation Erectile dysfunction Fatty liver Guaiac + stool Hypercholesterolemia Hypertension Knee osteoarthritis Lesion of right eyelid Leukocytosis Obesity (BMI 30-39.9) Thrombocytopenia Type 2 diabetes mellitus with hyperglycemia Wet gangrene Surgical History History of amputation of toe (01/06/22) History of left knee surgery Hx of colonoscopy Family History Family/Other Medical history unknown Social History Household Members: Spouse Housing: House Patient Tobacco Use Status: Never used Tobacco e-Cigarette/Vaping Use: Never Used Second Hand Smoke Exposure: No service: No Current occupational status: employed Current occupational exposures/hazards: No Cognitive needs: No Hearing needs: No Vision needs: Yes Physical Exam Extrem Other: 1+ effusion left knee Medial joint line ttp Office Procedures Joint Injection/Drain Joint Injection/Drain Details: Injected 1 mL of Decadron and 3 mL 1% lidocaine and 3 mL of 0.25% Marcaine. Site was prepped using aseptic technique. Patient tolerated the procedure well. Primary Site: left knee Approach Used: anterolateral Coding - Large joint Procedure code (CPT) selection complete Assessment & Plan Assessment & Plan (1) Arthritis of left knee: Code(s): M17.12 - Unilateral primary osteoarthritis, left knee Plan: Left knee OA. Viscosupplementation indicated but injected left knee now as pain difficult for him to get through his work day. Coding Level of Care Code Est Pt Level 3 (47423) Diagnoses Arthritis of left knee M17.12 CPT Codes Coding - Large joint: 73333 - Large joint ([id number])
== END 2023-03-29 11:28 | disposition home or self-care (01) ==
LOC: HO.HOS 11:02
PROVIDERS: PCP Internal Medicine; Visit Provider Orthopaedic Surgery
DX: M17.12 Unilateral primary osteoarthritis, left knee (principal)
CPT/HCPCS: 20610; 99213

== ENCOUNTER → 2023-03-29 11:02 | Outpatient (BNVA) | payer OTHER, SELFPAY | PROVIDERS: PCP Internal Medicine; Visit Provider Orthopaedic Surgery | DX: M17.12 Unilateral primary osteoarthritis, left knee (principal) | CPT/HCPCS: 20610; J0665; J1100 ==

== ENCOUNTER 2023-04-05 08:25 | Outpatient (AMB) | payer OTHER, SELFPAY ==
--- NOTE | 2023-04-05 08:26 | A.OFFVIS_ITS ---
Intake Vital Signs 04/05/23 08:27 Height 6 ft Weight 253 lb BMI 34.3 Intake Visit Reasons: Left Knee Synvisc-One Intake Note: Nate is a 62 year old male who presents today for a Left Knee Synvisc One Injection Allergies No Known Allergies Allergy (Verified 04/05/23 08:27) HPI Left Knee Synvisc-One HPI Details Nate is a 62 year old man with left knee OA, who presents for a viscosupplementation injection. He denies any changes in his medical history or symptoms. He received a left knee steroid injection on 03/29/23, with little to no relief. [facility] Medical History Bacteremia Alcohol use Wet gangrene Acidosis, lactic Leukocytosis Type 2 diabetes mellitus with hyperglycemia Lesion of right eyelid Colon cancer screening Constipation Guaiac + stool Fatty liver Cholelithiasis Hypertension Erectile dysfunction Hypercholesterolemia Thrombocytopenia Knee osteoarthritis Obesity (BMI 30-39.9) Surgical History History of amputation of toe (01/06/22) Hx of colonoscopy History of left knee surgery Family History Family/Other Medical history unknown Social History Household Members: Spouse Housing: House Patient Tobacco Use Status: Never used Tobacco e-Cigarette/Vaping Use: Never Used Second Hand Smoke Exposure: No service: No Current occupational status: employed Current occupational exposures/hazards: No Cognitive needs: No Hearing needs: No Vision needs: Yes Review of Systems Const All systems reviewed & are unremarkable except as noted in HPI and below Physical Exam Vital Signs: BMI result Body Mass Index 34.3 Const General: no acute distress, alert and awake Orientation/consciousness: patient oriented x3 HEENT Head: Yes normocephalic and Yes atraumatic Eyes EOM: EOMs intact bilaterally Resp Effort & Inspection: normal respiratory effort and able to speak in complete sentences Cardio Jugular venous distension: no JVD Skin General skin exam: turgor normal Rashes: no rashes Neuro General: patient oriented x3 Extrem Other: skin d/c/i moderate effusion Psych Appearance: grossly normal Affect: normal affect Attitude: cooperative Office Procedures Joint Injection/Drain Joint Injection/Drain Details: Injected 1 mL of Decadron and 3 mL 1% lidocaine and 3 mL of 0.25% Marcaine. Site was prepped using aseptic technique. Patient tolerated the procedure well. Primary Site: left knee Approach Used: anterolateral Coding - Large joint Procedure code (CPT) selection complete Assessment & Plan Assessment & Plan (1) Arthritis of left knee: Code(s): M17.12 - Unilateral primary osteoarthritis, left knee Plan: Injected SYnvisc gel one. f/u 3 months Plan Scribed for Cyrus Irvin MD by Shashi Cano, medical information specialist, on 04/05/23 at 8:30 AM, EST. Coding Level of Care Code Est Pt Level 2 (58537) Diagnoses Arthritis of left knee M17.12 CPT Codes Coding - Large joint: 70295 - Large joint ([id number])
[2023-04-05 08:27] VITALS: BMI 34.3
== END 2023-04-05 08:47 | disposition home or self-care (01) ==
LOC: HO.HOS 08:25
PROVIDERS: PCP Internal Medicine; Visit Provider Orthopaedic Surgery
DX: M17.12 Unilateral primary osteoarthritis, left knee (principal)
CPT/HCPCS: 20610

== ENCOUNTER → 2023-04-05 08:25 | Outpatient (BNVA) | payer OTHER, SELFPAY | PROVIDERS: PCP Internal Medicine; Visit Provider Orthopaedic Surgery | DX: M17.12 Unilateral primary osteoarthritis, left knee (principal) | CPT/HCPCS: 20610; J7325 ==

== ENCOUNTER 2023-07-06 13:06 | Outpatient (AMB) | payer OTHER, SELFPAY ==
--- NOTE | 2023-07-06 13:07 | A.OFFVIS_ITS ---
Intake Intake Visit Reasons: Left Knee Cortisone Injection Intake Note: Nate a 62 year old male who presents today for a left knee, last cortisone injection on 04/05/23. Allergies No Known Allergies Allergy (Verified 07/06/23 13:12) HPI Left Knee Cortisone Injection HPI Details 62-year-old male who returns to the [facility] today for a left knee injection. He had his last cortisone injection on 04/05/23. He also had gel injections with minimal relief. He has difficulty with daily activities due to the pain. [facility] Medical History Bacteremia Alcohol use Wet gangrene Acidosis, lactic Leukocytosis Type 2 diabetes mellitus with hyperglycemia Lesion of right eyelid Colon cancer screening Constipation Guaiac + stool Fatty liver Cholelithiasis Hypertension Erectile dysfunction Hypercholesterolemia Thrombocytopenia Knee osteoarthritis Obesity (BMI 30-39.9) Surgical History History of amputation of toe (01/06/22) Hx of colonoscopy History of left knee surgery Family History Family/Other Medical history unknown Social History Household Members: Spouse Housing: House Patient Tobacco Use Status: Never used Tobacco e-Cigarette/Vaping Use: Never Used Second Hand Smoke Exposure: No service: No Current occupational status: employed Current occupational exposures/hazards: No Cognitive needs: No Hearing needs: No Vision needs: Yes Review of Systems Const All systems reviewed & are unremarkable except as noted in HPI and below Physical Exam Extrem Other: Left knee: Skin intact, no erythema or joint effusion. Tenderness along the m edial and lateral joint line. Full ROM with crepitus. Negative Nikita?s. No ligamentous laxity. NVI. Office Procedures Joint Injection/Drain Joint Injection/Drain Primary Site: left knee Prep: site was prepped using aseptic technique, ethochloride spray was applied and injection warnings given Injected: 80 mg of, DepoMedrol, with 8 mL of, 1% plain lidocaine and in the joint Approach Used: anterolateral Procedure: The patient tolerated the procedure well and there was some relief with the local anesthesia Coding 23757 - Glenohumeral/Tronchanteric Bursa/Intraarticular Procedure code (CPT) selection complete Assessment & Plan Assessment & Plan (1) Arthritis of left knee: Code(s): M17.12 - Unilateral primary osteoarthritis, left knee Plan We discussed options today which include steroid injection. They did consent to move forward with the left knee injection, which was tolerated well. I recommended rest, ice and elevation and OTC anti-inflammatories PRN for discomfort. If symptoms persist or worsens over the next 6-8 weeks, patient will contact the office, otherwise follow-up as needed. Patient Instructions: Scribed for Denisha Barajas PA-C, by Moises Ahmadi medical record transcriber, on 07/06/2023 at 1:15 PM EST. Artemio, Denisha Barajas PA-C, have personally reviewed and agree with the information entered by the scribe. Coding Level of Care Code Est Pt Level 3 (83979) Diagnoses Arthritis of left knee M17.12 CPT Codes Coding - Joint 7: 82126 - Glenohumeral/Tronchanteric Bursa/Intraarticular ([id number])
== END 2023-07-06 13:44 | disposition home or self-care (01) ==
LOC: HO.HOS 13:06
PROVIDERS: PCP Internal Medicine; Visit Provider Physician Assistant
DX: M17.12 Unilateral primary osteoarthritis, left knee (principal)
CPT/HCPCS: 20610

== ENCOUNTER → 2023-07-06 13:06 | Outpatient (BNVA) | payer OTHER, SELFPAY | PROVIDERS: PCP Internal Medicine; Visit Provider Physician Assistant | DX: M17.12 Unilateral primary osteoarthritis, left knee (principal) | CPT/HCPCS: 20610; J1010; J1040 ==

== ENCOUNTER 2023-07-11 07:58 | Outpatient (REF) | payer OTHER, SELFPAY ==
[2023-07-11 11:22] LABS: Alanine Aminotransferase 29 U/L (0-40); Albumin Level 3.7 g/dL (3.5-5.0); Alkaline Phosphatase 189 U/L (39-117); Anion Gap 11 (12-20); Aspartate Amino Transferase 40 U/L (5-37); Bilirubin Total 2.1 mg/dL (0.0-1.0); Blood Urea Nitrogen 8 mg/dL (9-16); Calcium 8.8 mg/dL (8.4-10.2); Carbon Dioxide 23 mmol/L (22-29); Chloride 108 mmol/L (96-108); Cholesterol 170 mg/dL (<200); Estimated Glomerular Filt Rate > 60; Glucose Random 137 mg/dL (60-115); HDL Cholesterol 68 mg/dL (>40); LDL Cholesterol Calculated 88 mg/dL (<100); Potassium 3.9 mmol/L (3.3-5.1); Sodium 138 mmol/L (135-145); Total Protein 7.2 g/dL (6.5-8.0); Triglycerides 72 mg/dL (<150)
== END 2023-07-11 07:59 | disposition home or self-care (01) ==
LOC: HO.10HDL 07:58
PROVIDERS: Visit Provider Internal Medicine
DX: E78.00 Pure hypercholesterolemia, unspecified (principal)
CPT/HCPCS: 36415; 80053; 80061

== ENCOUNTER 2023-07-12 11:16 | Outpatient (AMB) | payer OTHER, SELFPAY ==
[2023-07-12 11:19] VITALS: BP 132/78; PULSE 75; O2SAT 98; BMI 35.5
--- NOTE | 2023-07-12 11:19 | MHC.PC.OV ---
Vital Signs 07/12/23 11:19 Height 6 ft Weight 262 lb BMI 35.5 BP 132/78 Blood Pressure Location Lt brachial Position Sitting Pulse 75 Pulse Source Pulse Oximeter Pulse Oximetry (%) 98 Oxygen Delivery Method Room Air Intake Visit Reasons: 3 months Allergies No Known Allergies Allergy (Verified 07/12/23 11:19) Tobacco use date assessed: 07/12/23 Dental Screening Dental Screen Date: 07/12/23 Did you have a dental visit in the last 12 months?: Yes Did you have a dental problem in the last 6 months where you did not have access to dental care?: No Was dental information given to patient?: Patient has dentist HPI 3 months HPI Details 62-year-old obese male with diabetes mellitus hypertension hypercholesterolemia history of having amputation of the right toe. Coming in for follow-up. Last seen in November 2022. Patient is up-to-date with colonoscopy September 2021 tubular adenoma. Review of the notes follows up with orthopedics for the left knee and has had a cortisone injection in March 2023 minimal relief. Patient has had carpal tunnel release also in October 2022. going to [facility] August 2023 for replacement. [facility] Medical History Bacteremia Alcohol use Wet gangrene Acidosis, lactic Leukocytosis Type 2 diabetes mellitus with hyperglycemia Lesion of right eyelid Colon cancer screening Constipation Guaiac + stool Fatty liver Cholelithiasis Hypertension Erectile dysfunction Hypercholesterolemia Thrombocytopenia Knee osteoarthritis Obesity (BMI 30-39.9) Surgical History History of amputation of toe (01/06/22) Hx of colonoscopy History of left knee surgery Family History Family/Other Medical history unknown Social History Household Members: Spouse Housing: House Patient Tobacco Use Status: Never used Tobacco e-Cigarette/Vaping Use: Never Used Second Hand Smoke Exposure: No service: No Current occupational status: employed Current occupational exposures/hazards: No Cognitive needs: No Hearing needs: No Vision needs: Yes Questionnaire PHQ-9 Over the last 2 weeks, how often have you been bothered by any of the following problems? 1. Little interest or pleasure in doing things: not at all 2. Feeling down, depressed, or hopeless: not at all 3. Trouble falling or staying asleep, or sleeping too much: not at all 4. Feeling tired or having little energy: not at all 5. Poor appetite or overeating: not at all 6. Feeling bad about yourself - or that you are a failure or have let yourself or your family down: not at all 7. Trouble concentrating on things, such as reading the newspaper or watching television: not at all 8. Moving or speaking so slowly that other people could have noticed. Or the opposite - being so fidgety or restless that you have been moving around a lot more than usual: not at all 9. Thoughts that you would be better off or of hurting yourself in some way: not at all Total score: 0 Depression Screening Interpretation: Negative Depression Screening Done: Yes Source: Developed by Drs. Redd Sutton, Malathi Covarrubias, Lauri Berg and colleagues, with an educational phill from [employer]. Thrive Questionnaire Date Thrive assessed: 07/12/23 I am a: Patient What is your living situation today?: I have a steady place to live Within the past 12 months, did the food you bought not last and you didn't have the money to get more?: Never true Within the past 12 months, did you worry whether your food would run out before you got money to buy more?: Never true Do you have trouble paying for medicines?: No Do you have trouble getting transportation to medical appointments?: No Do you have trouble paying your heating and electricity bill?: No Do you have trouble taking care of your child, family member or friend?: No Do you have trouble with day-to-day activities such as bathing, preparing meals, shopping, managing finances, etc.?: No Are you currently unemployed and looking for a job?: No Are you interested in more education?: No Currently or been in a relationship where the following occur: no concerns reported THRIVE Score: 0 AUDIT C Alcohol Use Questionnaire (AUDIT-C) 1. How often do you have a drink containing alcohol?: 2-4 times a month 2. How many drinks containing alcohol do you have on a typical day when you are drinking?: 1 or 2 3. How often do you have six or more drinks on one occasion?: Never Total Score: 2 CECILY-7 AMB Questionnaire CECILY-7 Date CECILY - 7 assessed: 07/12/23 Feeling nervous, anxious, or on edge: 0 = Not at all Not being able to stop or control worryin = Not at all Worrying too much about different things: 0 = Not at all Trouble relaxin = Not at all Being so restless that it is hard to sit still: 0 = Not at all Becoming easily annoyed or irritable: 0 = Not at all Feeling afraid as if something awful might happen: 0 = Not at all Total CECILY-7 score (0-4 normal; 5-9 mild; 10-14 moderate; 15-21 severe): 0 Source: Developed by Drs. Redd Sutton, Malathi Covarrubias, Lauri Berg and colleagues, with an educational phill from [employer]. Physical exam (Primary Care) Vital Signs: Last Vital Signs Pulse 75 07/12/23 11:19 BP 132/78 07/12/23 11:19 Pulse Ox 98 07/12/23 11:19 Oxygen Delivery Method Room Air 07/12/23 11:19 BMI result Body Mass Index 35.5 Tobacco/Smoking Status: Tobacco use Status Tobacco use date assessed 07/12/23 07/12/23 11:25 Patient Tobacco Use Status Never used Tobacco 07/12/23 11:25 e-Cigarette/Vaping Use Never Used 07/12/23 11:25 PHQ-9: PHQ-9 Score PHQ-9: Total score 0 07/12/23 11:45 Depression Screening Interpretation: Negative Thrive Assessment: Date of Thrive Assessment Date Thrive assessed 07/12/23 07/12/23 11:25 Currently or been in a relationship where the following occur: no concerns reported Const General: alert; No acute distress Eyes Conjunctivae: conjunctivae normal Resp Auscultation: clear to auscultation bilaterally Cardio Rate: regular rate Rhythm: regular rhythm GI Inspection: Yes normal to inspection Extrem General: Yes normal to inspection and No edema Results AMB Hemoglobin A1c AMB Hemoglobin A1c 5.6 % Last Edit by Paola Sweeney CMA on 07/12/23 11:56 Assessment and Plan Assessment & Plan (1) Type 2 diabetes mellitus with hyperglycemia: Comment: Dr. Richardson Code(s): E11.65 - Type 2 diabetes mellitus with hyperglycemia Plan: Decrease the amount of carbohydrate intake, pasta, bread, rice and potatoes are all sugar and that is aside from all the sweet stuff, remember that fruits are good but they are Sweet also. Hemoglobin A1c goal of less than 6.5. Patient on diet control. (2) Hypercholesterolemia: Comment: ? borderline no meds Code(s): E78.00 - Pure hypercholesterolemia, unspecified Plan: Avoid fried foods, chicken skin, eggs, butter margarine, pastries and meat. Be it pork or beef they have a lot of cholesterol LDL goal of less than 100 and triglyceride of less than 150 on simvastatin 5 mg once a day. November 2022 last blood work (3) Thrombocytopenia: Code(s): D69.6 - Thrombocytopenia, unspecified Plan: Continue to monitor (4) Hypertension: Code(s): I10 - Essential (primary) hypertension Plan: Continue with blood pressure medication. Decrease salt intake and exercise presently on lisinopril 5 mg once a day (5) Arthritis of left knee: Code(s): M17.12 - Unilateral primary osteoarthritis, left knee Plan: Patient follows up with ortho and has had injections with steroid and gel Orders: Orders AMB Hemoglobin A1c Today Z13.9 - Encounter for screening, unspecified Complete Blood Count Auto Diff 6 Months E11.65 - Type 2 diabetes mellitus with hyperglycemia Comprehensive Met. Panel 6 Months E11.65 - Type 2 diabetes mellitus with hyperglycemia Lipid Panel 6 Months E11.65 - Type 2 diabetes mellitus with hyperglycemia, E78.00 - Pure hypercholesterolemia, unspecified Microalbumin, Random (w Creat) 6 Months E11.65 - Type 2 diabetes mellitus with hyperglycemia Prostate Specific Antigen Scr 6 Months E11.65 - Type 2 diabetes mellitus with hyperglycemia Free T4 (Free Thyroxine) 6 Months E11.65 - Type 2 diabetes mellitus with hyperglycemia Thyroid Stimulating Hormone 6 Months E11.65 - Type 2 diabetes mellitus with hyperglycemia Vitamin B12 and Folate 6 Months E11.65 - Type 2 diabetes mellitus with hyperglycemia Creatinine Urine 6 Months E11.65 - Type 2 diabetes mellitus with hyperglycemia Hemoglobin A1c 6 Months E11.65 - Type 2 diabetes mellitus with hyperglycemia Medications: New diclofenac sodium 1% (Voltaren Arthritis Pain) apply to single knee, ankle, foot; for foot includes sole/toes/top of foot 4 grams topical QID 100 grams 4RF M17.12 - Unilateral primary osteoarthritis, left knee Discontinued celecoxib (Celebrex) Discontinued Reason: Patient Completed Course 200 mg PO BID 30 days 60 caps 3RF Coding Level of Care Code Est Pt Level 4 (58529) Diagnoses Type 2 diabetes mellitus with hyperglycemia E11.65 Hypercholesterolemia E78.00 Thrombocytopenia D69.6 Hypertension I10 Arthritis of left knee M17.12
== END 2023-07-12 12:08 | disposition home or self-care (01) ==
PROVIDERS: PCP Internal Medicine; Visit Provider Internal Medicine
DX: E11.65 Type 2 diabetes mellitus with hyperglycemia (principal); E78.00 Pure hypercholesterolemia, unspecified; D69.6 Thrombocytopenia, unspecified; I10 Essential (primary) hypertension; M17.12 Unilateral primary osteoarthritis, left knee; Z13.9 Encounter for screening, unspecified
CPT/HCPCS: 83036; 99214

== ENCOUNTER 2023-09-07 15:33 | Outpatient (AMB) | payer OTHER, SELFPAY ==
[2023-09-07 15:37] VITALS: BP 138/82; PULSE 64; O2SAT 97; BMI 35.8
--- NOTE | 2023-09-07 15:37 | A.OFFPC_ITS ---
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 Patient is up-to-date with colonoscopy. Patient also has arthritis of the left knee and follows up with orthopedics. [facility] Medical History Bacteremia Alcohol use Wet gangrene Acidosis, lactic Leukocytosis Type 2 diabetes mellitus with hyperglycemia Lesion of right eyelid Colon cancer screening Constipation Guaiac + stool Fatty liver Cholelithiasis Hypertension Erectile dysfunction Hypercholesterolemia Thrombocytopenia Knee osteoarthritis Obesity (BMI 30-39.9) Surgical History History of amputation of toe (01/06/22) Hx of colonoscopy History of left knee surgery Family History Family/Other Medical history unknown Social History Household Members: Spouse Housing: House Patient Tobacco Use Status: Never used Tobacco e-Cigarette/Vaping Use: Never Used Second Hand Smoke Exposure: No service: No Current occupational status: employed Current occupational exposures/hazards: No Cognitive needs: No Hearing needs: No Vision needs: Yes Questionnaire Thrive Questionnaire Date Thrive assessed: 07/12/23 AUDIT C Alcohol Use Questionnaire (AUDIT-C) 1. How often do you have a drink containing alcohol?: 2-4 times a month 2. How many drinks containing alcohol do you have on a typical day when you are drinking?: 1 or 2 3. How often do you have six or more drinks on one occasion?: Never Total Score: 2 CECILY-7 AMB Questionnaire CECILY-7 Date CECILY - 7 assessed: 07/12/23 Source: Developed by Drs. Redd Sutton, Malathi Covarrubias, Lauri Berg and colleagues, with an educational phill from [employer]. Physical exam (Primary Care) Vital Signs: Last Vital Signs Pulse 64 09/07/23 15:37 BP 138/82 09/07/23 15:37 Pulse Ox 97 09/07/23 15:37 Oxygen Delivery Method Room Air 09/07/23 15:37 BMI result Body Mass Index 35.8 Tobacco/Smoking Status: Tobacco use Status Tobacco use date assessed 09/07/23 09/07/23 15:38 Patient Tobacco Use Status Never used Tobacco 09/07/23 15:38 e-Cigarette/Vaping Use Never Used 09/07/23 15:38 Thrive Assessment: Date of Thrive Assessment Date Thrive assessed 07/12/23 09/07/23 15:38 Const General: alert; No acute distress Eyes Conjunctivae: conjunctivae normal Resp Auscultation: clear to auscultation bilaterally Cardio Rate: regular rate Rhythm: regular rhythm GI Inspection: Yes normal to inspection Extrem General: Yes normal to inspection and No edema Assessment and Plan Assessment & Plan (1) Type 2 diabetes mellitus with hyperglycemia: Comment: Dr. Richardson Code(s): E11.65 - Type 2 diabetes mellitus with hyperglycemia Plan: Decrease the amount of carbohydrate intake, pasta, bread, rice and potatoes are all sugar and that is aside from all the sweet stuff, remember that fruits are good but they are Sweet also. Patient on diet control (2) Peripheral vascular disease: Code(s): I73.9 - Peripheral vascular disease, unspecified Plan: When sitting down elevate the legs, exercise, and support stockings patient was given furosemide to diurese gently. Discussed about side effects Medications: New furosemide 20 mg PO DAILY 20 tabs 0RF I73.9 - Peripheral vascular disease, unspecified Coding Level of Care Code Est Pt Level 3 (91219) Diagnoses Type 2 diabetes mellitus with hyperglycemia E11.65 Peripheral vascular disease I73.9
== END 2023-09-07 16:07 | disposition home or self-care (01) ==
PROVIDERS: PCP Internal Medicine; Visit Provider Internal Medicine
DX: E11.65 Type 2 diabetes mellitus with hyperglycemia (principal); I73.9 Peripheral vascular disease, unspecified
CPT/HCPCS: 99213

== ENCOUNTER 2024-01-28 15:00 | Outpatient (AMB) | payer OTHER, SELFPAY ==
--- NOTE | 2024-01-28 15:12 | A.OFFPC_ITS ---
Vital Signs 01/28/24 15:13 Height 6 ft Weight 242 lb 8 oz BMI 32.9 BP 130/78 Blood Pressure Location Lt brachial Position Sitting Pulse 107 H Pulse Source Pulse Oximeter Pulse Oximetry (%) 97 Oxygen Delivery Method Room Air Intake Visit Reasons: stomach pain Intake Note: Patient is here to follow up on Stomach pain. 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 Having controlled diabetes mellitus peripheral vascular disease hypertension coming in for follow- up. Last seen in August 2023. Patient's last colonoscopy was done in 2021. Shaheed SIN November complains of feeling full , no bm problem but has abdominla pain. no radiation pain in midline. [facility] Medical History (Updated 01/28/24 @ 15:52 by Jade Harper MD) Bacteremia Alcohol use Wet gangrene Acidosis, lactic Leukocytosis Type 2 diabetes mellitus with hyperglycemia Lesion of right eyelid Colon cancer screening Constipation Guaiac + stool Fatty liver Cholelithiasis Hypertension Erectile dysfunction Hypercholesterolemia Thrombocytopenia Knee osteoarthritis Obesity (BMI 30-39.9) Surgical History (Updated 01/28/24 @ 15:17 by NADIRA Wagner) History of total left knee replacement History of amputation of toe (01/06/22) Hx of colonoscopy History of left knee surgery Family History Family/Other Medical history unknown Social History Household Members: Spouse Housing: House Patient Tobacco Use Status: Never used Tobacco e-Cigarette/Vaping Use: Never Used Second Hand Smoke Exposure: No service: No Current occupational status: employed Current occupational exposures/hazards: No Cognitive needs: No Hearing needs: No Vision needs: Yes Questionnaire Thrive Questionnaire Date Thrive assessed: 07/12/23 CECILY-7 AMB Questionnaire CECILY-7 Date CECILY - 7 assessed: 07/12/23 Source: Developed by Drs. Redd Sutton, Malathi Covarrubias, Lauri Berg and colleagues, with an educational phill from [employer]. Physical exam (Primary Care) Vital Signs: Last Vital Signs Pulse 107 H 01/28/24 15:13 BP 130/78 01/28/24 15:13 Pulse Ox 97 01/28/24 15:13 Oxygen Delivery Method Room Air 01/28/24 15:13 BMI result Body Mass Index 32.9 Tobacco/Smoking Status: Tobacco use Status Tobacco use date assessed 01/28/24 01/28/24 15:18 Patient Tobacco Use Status Never used Tobacco 01/28/24 15:18 e-Cigarette/Vaping Use Never Used 01/28/24 15:18 Thrive Assessment: Date of Thrive Assessment Date Thrive assessed 07/12/23 01/28/24 15:18 Const General: alert; No acute distress Eyes Conjunctivae: conjunctivae normal Resp Auscultation: clear to auscultation bilaterally Cardio Rate: regular rate Rhythm: regular rhythm GI Other: Tender on the right upper quadrant with rebound and guarding. Coding Level of Care Code Est Pt Level 4 (87679) Diagnoses Type 2 diabetes mellitus with hyperglycemia E11.65 Hypercholesterolemia E78.00 Primary hypertension I10 Hypertension type: primary hypertension Peripheral vascular disease I73.9 RUQ abdominal pain R10.11 Calculus of gallbladder with biliary obstruction but without cholecystitis K80.21 Cholelithiasis location: gallbladder Cholecystitis presence: without cholecystitis Biliary obstruction: with biliary obstruction Assessment & Plan Assessment & Plan (1) Type 2 diabetes mellitus with hyperglycemia: Comment: Dr. Richardson Code(s): E11.65 - Type 2 diabetes mellitus with hyperglycemia Category: Medical Plan: Decrease the amount of carbohydrate intake, pasta, bread, rice and potatoes are all sugar and that is aside from all the sweet stuff, remember that fruits are good but they are Sweet also. Presently diet controlled (2) Hypercholesterolemia: Comment: ? borderline no meds Code(s): E78.00 - Pure hypercholesterolemia, unspecified Category: Medical Plan: Avoid fried foods, chicken skin, eggs, butter margarine, pastries and meat. Be it pork or beef they have a lot of cholesterol on simvastatin 5 mg at bedtime. 07/14/2023 last blood work (3) Hypertension: Code(s): I10 - Essential (primary) hypertension Category: Medical Qualifiers: Hypertension type: primary hypertension Qualified Code(s): I10 - Essential (primary) hypertension Plan: Continue with blood pressure medication. Decrease salt intake and exercise on lisinopril 5 mg once a day (4) Peripheral vascular disease: Code(s): I73.9 - Peripheral vascular disease, unspecified Category: Medical Plan: When sitting down elevate the legs, exercise, and support stockings (5) RUQ abdominal pain: Code(s): R10.11 - Right upper quadrant pain Category: Medical Plan: Patient has a history of cholelithiasis and recently has been eating fatty foods. With the tenderness and rebound and guarding ultrasound stat requested. (6) Cholelithiasis: Comment: December 2018 Code(s): K80.20 - Calculus of gallbladder without cholecystitis without obstruction Category: Medical Qualifiers: Cholelithiasis location: gallbladder Cholecystitis presence: without cholecystitis Biliary obstruction: with biliary obstruction Qualified Code(s): K80.21 - Calculus of gallbladder without cholecystitis with obstruction Plan: Patient has been warned about low-fat diet ultrasound requested. Orders: Orders US abdomen complete Today K80.20 - Calculus of gallbladder without cho lecystitis without obstruction, R10.11 - Right upper quadrant pain, R79.89 - Other specified abnormal findings of blood chemistry Medications: Discontinued furosemide Discontinued Reason: No Longer Medically Relevant 20 mg PO DAILY 20 tabs 0RF I73.9 - Peripheral vascular disease, unspecified
[2024-01-28 15:13] VITALS: BP 130/78; PULSE 107; O2SAT 97; BMI 32.9
== END 2024-01-28 16:20 | disposition home or self-care (01) ==
LOC: HO.HMCH 15:00
PROVIDERS: PCP Internal Medicine; Visit Provider Internal Medicine
DX: E11.65 Type 2 diabetes mellitus with hyperglycemia (principal); E78.00 Pure hypercholesterolemia, unspecified; I10 Essential (primary) hypertension; I73.9 Peripheral vascular disease, unspecified; R10.11 Right upper quadrant pain; K80.21 Calculus of gallbladder without cholecystitis with obstruction

== ENCOUNTER 2024-01-28 15:00 | Outpatient (REF) | payer OTHER, SELFPAY ==
--- NOTE | ~2024-01-28 | US_ITS ---
EXAMINATION: US ABDOMEN COMPLETE CLINICAL INFORMATION: Abnormal findings of blood chemistry. COMPARISON: Ultrasound abdomen of 01/22/2019. TECHNIQUE: Real-time imaging of the abdominal viscera. Limited visualization due to bowel gas and body habitus. FINDINGS: PANCREAS: Limited visualization. ABDOMINAL AORTA: Limited visualization. INFERIOR VENA CAVA: Visualized portions are normal. LIVER: Diffusely heterogeneous and coarse hepatic echotexture. Lobulated hepatic contour. Hepatic appearance is compatible with provided history of cirrhosis. Limited visualization. Right hepatic lobe measures 15.3 cm in sagittal dimension. Moderate ascites. GALLBLADDER: Gallbladder wall thickening of 9 mm. Cholelithiasis. COMMON BILE DUCT: Limited visualization. RIGHT KIDNEY: No hydronephrosis. No renal calculi. Lobulated renal contour difficult to evaluate due to limited visualization. The kidney measures 10.8 cm in maximum dimension. LEFT KIDNEY: No hydronephrosis. No renal calculi. Lobulated renal contour difficult to evaluate due to limited visualization. The kidney measures 12.1 cm in maximum dimension. SPLEEN: Splenomegaly. The spleen measures 14.3 cm in maximum dimension. FREE FLUID: None. US/US abdomen complete IMPRESSION: 1. Diffusely heterogeneous and coarse hepatic echotexture. Lobulated hepatic contour. Hepatic appearance is compatible with provided history of cirrhosis. Right hepatic lobe measures 15.3 cm in sagittal dimension. Moderate ascites. 2. Gallbladder wall thickening of 9 mm. Cholelithiasis. 3. Splenomegaly. 4. Bilateral lobulated renal contours are difficult to evaluate due to limited visualization. This study was presented today, 01/29/2024, for interpretation. Stat results provided at this time as requested by referring provider. Electronically signed by: Sofia Ross MD 01/29/2024 09:11 AM EST
== END 2024-01-28 15:01 | disposition home or self-care (01) ==
LOC: HO.US 15:00
PROVIDERS: PCP Internal Medicine; Visit Provider Internal Medicine
DX: R79.89 Other specified abnormal findings of blood chemistry (principal); R10.11 Right upper quadrant pain; K80.20 Calculus of gallbladder without cholecystitis without obstruction
CPT/HCPCS: 76700

== ENCOUNTER 2024-01-29 16:29 | Inpatient (IN) | payer OTHER, SELFPAY ==
--- NOTE | ~2024-01-29 | CT_ITS ---
EXAMINATION: CT ABDOMEN AND PELVIS WITH CONTRAST CLINICAL INFORMATION: Abdominal pain worse in right upper quadrant COMPARISON: Ultrasound abdomen 01/22/2019 TECHNIQUE: Multidetector volumetric images were obtained from the superior aspect of the liver through the pubic symphysis following administration 85 mL of Omnipaque 350 intravenous contrast. Sagittal and coronal reformatted images were obtained on the technologist's workstation. Oral contrast: No This CT examination was performed using dose optimization techniques as appropriate, variously including the following: *Automated exposure control *Adjustment of mA and/or kV according to patient size (this includes techniques or standardized protocols for targeted exams where dose is matched to indication/reason for exam; i.e. extremities or head) *Use of iterative reconstruction technique DLP: 743 mGy-cm FINDINGS: LUNG BASES: There is bibasilar atelectatic changes. The heart size is normal. LIVER, GALLBLADDER, AND BILIARY TREE: The liver is normal size with lobulated contour. No enhancing mass or intrahepatic ductal dilatation seen. Gallbladder is enlarged with multiple radiopaque gallstones and wall thickening . There is perihepatic and pericolic gallbladder fluid collection. CBD is normal caliber. PANCREAS: Unremarkable. SPLEEN: There is mild splenomegaly measuring 19 cm in AP axis. ADRENAL GLANDS: Unremarkable. KIDNEYS AND URETERS: The kidneys are normal in size, shape, and attenuation. No hydronephrosis, hydroureter, or calculi seen. No perinephric stranding. BLADDER: Unremarkable. GASTROINTESTINAL TRACT: There is scattered stool, diverticuli and gas seen throughout the colon without significant distention. There is mild mural thickening involving hepatic flexure and ascending colon. Mural thickening is also seen involving the second and third segment of the duodenum. There is mild haziness in the right abdomen likely secondary to edema and the stomach is nondistended. Appendix is normal caliber. ABDOMINAL WALL: No significant hernia is appreciated. LYMPH NODES: Normal. VASCULAR: The abdominal aorta is normal caliber. There are numerous prominent collateral vessels in the gastrohepatic segment and at the GE junction and suggestive of portal hypertension and varices. PELVIC VISCERA: There is small amount of free fluid in the pelvis. The prostate gland is within normal limits. No evidence of hernia. No abnormal pelvic or inguinal lymph nodes. OSSEOUS STRUCTURES: Mild degenerative disc changes L3-4 disc level. Slightly heterogenous right L3 bone marrow with Schmorl's nodule. Moderate ventral spondylosis lower dorsal spine. CT/CT abdomen pelvis w IV con IMPRESSION: Cirrhosis with portal hypertension, varices, splenomegaly and mesenteric edema and small amount of free fluid in cul-de-sac. CBD is nondilated. Enlarged gallbladder with gallstones and mild wall thickening. There is surrounding fluid likely ascites. The gallbladder thickening could be secondary to inflammatory process from adjacent colitis and/or cirrhosis. Primary cholecystitis is considered less likely. There is diffuse ascending colon and hepatic flexure mural thickening question colitis. Diverticulitis is considered less less likely in spite of few scattered colonic diverticuli. No proximal small bowel obstruction or distention seen. Fleischner guidelines were followed. Electronically signed by: Robi Benitez MD 01/29/2024 08:16 PM [facility]
--- NOTE | ~2024-01-29 | US_ITS ---
ULTRASOUND DIAGNOSTIC PARACENTESIS HISTORY: Ascites. Abdominal pain. Fevers. Risks and benefits and possible complications were discussed with the patient and consent form was signed. A safe pocket of ascitic fluid was identified using ultrasound guidance, and the overlying skin was marked. The abdomen prepped and draped in sterile fashion. 1% lidocaine was used as a local anesthetic. Using ultrasound guidance, a 22-gauge spinal needle was placed into the perihepatic ascites. 20 mL of yellow fluid was aspirated and sent for analysis. The catheter was then removed. A few electronics parts sales representative images from before and after the examination were obtained. The procedure was performed by Tadeo Conde PA-C and supervised by Dr. Stark. US/US paracentesis abd w/image IMPRESSION: Ultrasound-guided diagnostic paracentesis as described above. No immediate complications Electronically signed by: Neel Stark MD 02/05/2024 11:12 AM [facility]
--- NOTE | ~2024-01-29 | MR_ITS ---
EXAMINATION: MRI of abdomen. MR cholangiopancreatography CLINICAL INFORMATION: Abdominal pain, jaundice, elevated bilirubin and alkaline phosphatase. COMPARISON: CT scan of abdomen and pelvis on 01/29/2024 TECHNIQUE: Examination was performed in a high field strength MRI scanner. Multiplanar multisequence MR imaging of the abdomen was performed without IV contrast enhancement. MR cholangiopancreatography was performed with heavily T2 weighted sequences. 3-dimensional reconstruction of image data was performed. This was performed under concurrent direct supervision and monitoring by radiologist. Maximum intensity projection images were constructed. FINDINGS: MR CHOLANGIOPANCREATOGRAPHY: Gallbladder is markedly enlarged measuring 12.0 cm in AP length, containing multiple small gravitating gallstones, fluid fluid level with gravitating sludge, diffuse marked gallbladder wall thickening measuring up to 1.3 cm in thickness. Cystic duct is unremarkable. Bilateral intra hepatic bile ducts, common hepatic duct and common bile duct are normal in size without filling defects. Pancreatic duct shows a short segment in pancreatic head measuring 3.7 mm in diameter. LIVER: The liver shows diffuse nodular contour, with heterogeneous mild nodular T2 hyperintensity in left hepatic lobes. No discrete focal liver mass lesion could be identified on noncontrast images. The calculated hepatic fat percentage is 0.8%, compatible with normal. Portal vein is abnormally dilated to 1.6 cm in AP diameter, consistent with portal venous hypertension. PANCREAS: No focal pancreatic lesion with abnormal signal can be seen. SPLEEN: Spleen is moderately enlarged, measuring 18.5 cm in AP length. ADRENAL: Bilateral adrenal glands are normal in shape and size. KIDNEYS: Bilateral kidneys are normal in size without focal lesion. There is mild perihepatic and perisplenic ascites. MR/MR MRCP IMPRESSION: 1. Markedly enlarged gallbladder containing multiple small gravity gallstones, fluid fluid level with gravity sludge, diffuse marked gallbladder wall thickening. Findings are consistent with acute cholecystitis. 2. No evidence of choledocholithiasis. 3. Advanced hepatic cirrhosis. 4. Portal venous hypertension. 5. Moderate splenomegaly. 6. Mild perihepatic and perisplenic ascites. 7. Short segment pancreatic duct orientation is seen in the pancreatic head. Electronically signed by: Justa Lopez MD 01/31/2024 06:58 AM [facility] [place]
--- NOTE | ~2024-01-29 | XR_ITS ---
EXAMINATION: XR CHEST CLINICAL INFORMATION: Fever. COMPARISON: None available. TECHNIQUE: Frontal view of the chest was obtained. FINDINGS: The lungs are hypoexpanded with mild elevation of right hemidiaphragm. Mild atelectatic changes are seen in left lung base. Rest of the lungs are clear. The heart size and pulmonary vascularity is normal. No gross bony abnormality seen. XR/XR chest 1V IMPRESSION: Mild atelectatic changes left lung base. Electronically signed by: Robi Benitez MD 01/29/2024 09:58 PM EST RP
--- NOTE | ~2024-01-29 | CT_ITS ---
CLINICAL HISTORY: Acute cholecystitis PROCEDURES: 1. Limited preprocedure CT of the abdomen. Permanent images saved in PACS. 2. CT-guided cholecystostomy tube. 3. Limited post procedure CT of the abdomen. Permanent images saved in PACS. CLINICIANS: Tadeo Conde PA-C Preprocedural imaging reviewed with Dr. Pinto MEDICATIONS: -Versed 1 mg, Fentanyl 50 mcg, and lidocaine 1% 10 mL SQ -Antibiotics: None -For additional details, please see nursing flowsheet. COMPLICATIONS: None ESTIMATED BLOOD LOSS: < 5 ml CONTRAST: None SPECIMENS: A specimen was sent for culture. MODERATE SEDATION TIME: 20 min PROCEDURE NOTE: The procedure, risks, benefits, and alternatives were carefully explained to the patient and written informed consent was obtained. The patient was placed supine on the CT table. A timeout was performed. A limited CT of the abdomen was performed to localize the gallbladder and choose appropriate needle entry and trajectory. The patient was prepped and draped in usual sterile fashion. The skin and subcutaneous tissues were anesthetized with lidocaine. Under CT guidance, a 5 [place] Yueh needle/catheter was advanced into the gallbladder. Mucinous/turbid brown fluid was immediately aspirated. A 0.0035 J wire was inserted through the the catheter and coiled in the gallbladder. The access needle/catheter was then removed over the wire. The tract was then serially dilated. Over the wire, an 8 fr all-purpose drainage catheter was advanced and coiled into the gallbladder under CT guidance. The wire was then removed. A total of 120 ml of mucinous/turbid brown fluid was removed and sent for culture. The catheter was secured to the skin with a 2-0 nylon suture. A BRIA bulb was then attached to the drainage catheter. A limited postprocedure CT was then obtained demonstrating the drainage catheter well positioned within the gallbladder. The patient was stable after the procedure and was transferred to the post anesthesia care unit. The procedure was done under moderate sedation with a dedicated nurse for monitoring of vital signs. CT/CT guided drainage Impression: CT guided cholecystostomy tube. This procedure was performed by Tadeo Conde PA-C and supervised by Dr. Pinto. Electronically signed by: Kashif Pinto MD 02/07/2024 01:30 PM [facility]
--- NOTE | 2024-01-29 17:03 | ED_ITS ---
HPI - General Adult General Chief complaint: Abdominal Pain Stated complaint: gallstones/sent by PCP Time Seen by Provider: 01/29/24 17:07 Related Data Previous Rx's ?Medication ?Instructions ?Recorded prosthetic shoe #1 ea 04/14/22 right great toe prosthetic #1 ea 04/14/22 diclofenac sodium 1 % topical gel 4 g topical QID #100 grams 07/12/23 (Voltaren Arthritis Pain) lisinopril 5 mg tablet 5 mg PO DAILY #90 tabs 11/26/23 simvastatin 5 mg tablet 5 mg PO BEDTIME #90 tabs 12/02/23 sildenafil 100 mg tablet 100 mg PO DAILY PRN sexual 12/06/23 activity #6 tabs Allergies Allergy/AdvReac Type Severity Reaction Status Date / Time No Known Allergies Allergy Verified 01/29/24 17:05 [facility] Past Medical History Medical History (Updated 01/29/24 @ 19:57 by Lucia Garcia MD) Acute cholecystitis due to biliary calculus Bacteremia Alcohol use Wet gangrene Acidosis, lactic Leukocytosis Type 2 diabetes mellitus with hyperglycemia Lesion of right eyelid Colon cancer screening Constipation Guaiac + stool Fatty liver Cholelithiasis Hypertension Erectile dysfunction Hypercholesterolemia Thrombocytopenia Knee osteoarthritis Obesity (BMI 30-39.9) Surgical History History of total left knee replacement History of amputation of toe (01/06/22) Hx of colonoscopy History of left knee surgery Family History Family History Family/Other Medical history unknown Social History Social History Household Members: Spouse Housing: House Patient Tobacco Use Status: Never used Tobacco Smoked in Last 30 Days: No e-Cigarette/Vaping Use: Never Used Second Hand Smoke Exposure: No Use of substances other than those prescribed or required for medical reasons: No Advance Directives: No Advance Directives Information Provided: Yes service: No Current occupational status: employed Current occupational exposures/hazards: No Cognitive needs: No Hearing needs: No Vision needs: Yes Physical Exam ED Vital Signs: Vital Signs - 24 hr 01/29/24 17:04 01/29/24 19:55 Temperature 99.8 F 99.2 F Pulse Rate 108 H 93 Respiratory Rate 18 17 Blood Pressure 142/80 H 127/71 Pulse Oximetry 95 95 Oxygen Delivery Method Room Air Room Air BMI result Body Mass Index 32.8 Course Course Course Narrative: This is a rapid medical exam performed by Julia Brennan NP: Additional HPI, ROS, PE not included below will be deferred to primary provider. Patient is a 63-year-old male with history of T2DM, HTN, cholelithiasis presenting with complaint of periumbilical abdominal pain since Sunday. Patient has a STAT u/s yesterday which showed cholelithiasis and GB wall thickening, splenomegaly, lobulated liver, spoke with Dr. Khan today. Fever of 101.1 at home. Nausea without vomiting. Plan: patient brought directly to room inside ED, charge expecting patient Medications Administered Generic Name Dose Route Start Last Admin Trade Name Freq PRN Reason Stop Dose Admin Sodium Chloride 1,000 mls @ 999 mls/hr 01/29/24 19:30 01/29/24 19:41 Ns IV 01/29/24 20:30 999 mls/hr .Q1H1M THOMAS Administration Sodium Chloride 1,000 mls @ 999 mls/hr 01/29/24 19:30 01/29/24 19:41 Ns IV 01/29/24 20:30 999 mls/hr .Q1H1M THOMAS Administration Discontinued Medications Generic Name Dose Route Start Last Admin Trade Name Freq PRN Reason Stop Dose Admin Ceftriaxone Sodium 2 gm 01/29/24 17:38 01/29/24 19:41 Ceftriaxone Sodium 2 Gm Vial IVPUSH 01/29/24 17:39 2 gm ONCE ONE Administration Hydromorphone HCl 0.5 mg 01/29/24 19:47 01/29/24 19:57 Hydromorphone Hcl 0.5 Mg/0.5 Ml Syringe IVPUSH 01/29/24 19:48 0.5 mg ONCE ONE Administration Protocol Metronidazole 500 mg in 100 mls @ 100 mls/hr 01/29/24 17:38 01/29/24 19:41 Flagyl IV 01/29/24 18:37 100 mls/hr ONCE ONE Administration Iohexol 100 ml 01/29/24 18:44 01/29/24 18:46 Iohexol 350 Mg/Ml 100 Ml Infus..Btl IV 01/29/24 18:45 85 ml ONCE ONE Administration Medical Decision Making Lab Data 01/29/24 17:46 01/29/24 17:46 Labs: Lab Results 01/29/24 01/29/24 Range/Units 17:46 19:21 WBC 13.2 H (4.8-10.8) X10*3/uL RBC 4.05 L (4.60-5.80) X10*6/uL Hgb 13.7 L (14.0-18.0) g/dl Hct 38.1 L (42.0-52.0) % MCV 94.1 (80.0-98.0) fL MCH 33.8 H (27.0-33.0) pg MCHC 36.0 (31.0-36.0) g/dl RDW 13.2 (11.0-16.0) % Plt Count 145 L D (160-400) X10*3/uL MPV 10.3 (9.4-12.4) fL Immature Gran % (Auto) 0.5 H (0.0-0.4) % Neut % (Auto) 85.1 H (45-73) % Lymph % (Auto) 3.8 L (20-40) % [place] % (Auto) 10.1 (2-11) % Eos % (Auto) 0.1 (0-4) % Baso % (Auto) 0.4 (0-2) % Lymph # (Auto) 0.5 L (1.2-4.9) X10*3/uL [place] # (Auto) 1.3 H (0.1-1.2) X10*3/uL Eos # (Auto) 0.0 (0.0-0.4) X10*3/uL Baso # (Auto) 0.1 (0.0-0.2) X10*3/uL Abs Immat Gran (auto) 0.07 H (0.00-0.03) X10*3/uL Absolute Neuts (auto) 11.3 H (2.0-8.3) x10*3/uL Absolute Nucleated RBC 0.000 (0.0-0.012) X10*3/uL Nucleated RBC % (auto) 0.0 (0.0-0.2) /100WBC PT 18.0 H (10.9-12.4) SEC INR 1.5 H (0.9-1.1) Sodium 133 L (135-145) mmol/L Potassium 3.9 (3.3-5.1) mmol/L Chloride 104 (96-108) mmol/L Carbon Dioxide 19 L (22-29) mmol/L Anion Gap 14 (12-20) BUN 10 (9-16) mg/dL Creatinine 0.74 (0.5-1.4) mg/dL Estim Creat Clear Calc 128.9 Estimated GFR > 60 Random Glucose 143 H (60-115) mg/dL Lactic Acid 2.0 (0.5-2.0) mmol/L Calcium 8.6 (8.4-10.2) mg/dL Total Bilirubin 3.0 H (0.0-1.0) mg/dL AST 24 (5-37) U/L ALT 10 (0-40) U/L Alkaline Phosphatase 135 H (39-117) U/L Total Protein 6.8 (6.5-8.0) g/dL Albumin 3.2 L (3.5-5.0) g/dL Amylase 39 (28-100) U/L Lipase 29 (8-78) U/L Discharge Plan Discharge Clinical Impression: Acute cholecystitis Patient Disposition: Admitted As Inpatient Print Language: Turkish
[2024-01-29 17:04] VITALS: BP 142/80; PULSE 108; RESP 18; TEMP 37.7; O2SAT 95; BMI 32.8
--- NOTE | 2024-01-29 17:51 | ED.ABDPAIN ---
HPI - Abdominal Pain General Chief Complaint: Abdominal Pain Stated Complaint: gallstones/sent by PCP Time Seen by Provider: 01/29/24 17:07 History of Present Illness HPI narrative: Patient is a 63-year-old male with a previous history of ETOH. History of liver cirrhosis. History of diabetes, hypercholesterolemia. History of having abdominal pain worse over the right upper quadrant. Was seen by his primary physician an ultrasound was done it did show some thickening in the gallbladder of 9 mm. Positive gallstone. Patient was sent to the ED for further evaluation. No coughing or congestion or upper respiratory symptoms no change in bowel movement. Patient is from home. Related Data Previous Rx's ?Medication ?Instructions ?Recorded prosthetic shoe #1 ea 04/14/22 right great toe prosthetic #1 ea 04/14/22 diclofenac sodium 1 % topical gel 4 g topical QID #100 grams 07/12/23 (Voltaren Arthritis Pain) lisinopril 5 mg tablet 5 mg PO DAILY #90 tabs 11/26/23 simvastatin 5 mg tablet 5 mg PO BEDTIME #90 tabs 12/02/23 sildenafil 100 mg tablet 100 mg PO DAILY PRN sexual 12/06/23 activity #6 tabs Allergies Allergy/AdvReac Type Severity Reaction Status Date / Time No Known Allergies Allergy Verified 01/29/24 17:05 Review of Systems Review of Systems Positive abdominal pain Yes all other systems are reviewed and are negative PMFSH Past Medical History Attestation statement: The following information was validated with the patient. Source: unable to obtain Medical History (Updated 01/29/24 @ 19:57 by Lucia Garcia MD) Acute cholecystitis due to biliary calculus Bacteremia Alcohol use Wet gangrene Acidosis, lactic Leukocytosis Type 2 diabetes mellitus with hyperglycemia Lesion of right eyelid Colon cancer screening Constipation Guaiac + stool Fatty liver Cholelithiasis Hypertension Erectile dysfunction Hypercholesterolemia Thrombocytopenia Knee osteoarthritis Obesity (BMI 30-39.9) Surgical History History of total left knee replacement History of amputation of toe (01/06/22) Hx of colonoscopy History of left knee surgery Family History Family History Family/Other Medical history unknown Social History Social History Household Members: Spouse Housing: House Patient Tobacco Use Status: Never used Tobacco Smoked in Last 30 Days: No e-Cigarette/Vaping Use: Never Used Second Hand Smoke Exposure: No Use of substances other than those prescribed or required for medical reasons: No Advance Directives: No Advance Directives Information Provided: Yes service: No Current occupational status: employed Current occupational exposures/hazards: No Cognitive needs: No Hearing needs: No Vision needs: Yes Physical Exam ED Vital Signs: Vital Signs - 24 hr 01/29/24 17:04 Temperature 99.8 F Pulse Rate 108 H Respiratory Rate 18 Blood Pressure 142/80 H Pulse Oximetry 95 Oxygen Delivery Method Room Air BMI result Body Mass Index 32.8 Appearance: Alert. Oriented X3. No acute distress. Eyes: Pupils equal, round and reactive to light. ENT: Pharynx normal. Neck: Normal inspection. Neck supple. No lymph nodes noted. No crepitus CVS: Normal heart rate and rhythm. Pulses normal. Normal S1 and S2 Respiratory: No respiratory distress. Breath sounds normal. No Wheezing. No rales Abdomen: Soft and nontender. No rigidity. No distention. good BS x4 Skin: Skin warm and dry. Normal skin color. Normal skin turgor. Extremities: No lower extremity edema. Neurovascular intact to all extremities. No Lacerations. No Rash Neuro: Oriented X 3. No motor deficit. No sensory deficit. Moving all extermities. No slurred speech Medical Decision Making Medical Decision Making MDM Narrative: Patient is 63 years old presented today with having abdominal pain diffuse. Has a history of known gallstones. Had an ultrasound done on an outpatient basis which showed thickened gallbladder wall. Positive gallstone. Patient's LFT showed a bilirubin of 3. White count was 13.2. Cultures obtained antibiotic was started. 2 L of fluid was ordered. Lactate ordered. Patient's lactate came back at 2.0. CT scan of the abdomen pelvis was done after creatinine came back. My interpretation of the CT scan is consistent with having inflammation in the gallbladder. The case was consulted by the surgical team. Dr. Pina came down evaluated the patient. Wanted patient to be admitted to the medical service. Additional pain medication was given. Repeat exam patient's symptoms improving. Medical team made aware. Consulted on the case agree with plan of admission. Differential Diagnosis Differential Diagnoses: The differential diagnosis associated with the presentation includes SBP, cholecystitis, abscess, diverticulitis Admission/Observation Consideration of admission/observation: Escalation of care including admission/observation considered Consult Healthcare Provider Management of the patient was discussed with: Hospitalist and Tourist Cabin Keeper (Surgery) Lab Data MDM Lab Attestation statement: I reviewed the patient's lab results. 01/29/24 17:46 01/29/24 17:46 Labs: Lab Results 01/29/24 01/29/24 Range/Units 17:46 19:21 WBC 13.2 H (4.8-10.8) X10*3/uL RBC 4.05 L (4.60-5.80) X10*6/uL Hgb 13.7 L (14.0-18.0) g/dl Hct 38.1 L (42.0-52.0) % MCV 94.1 (80.0-98.0) fL MCH 33.8 H (27.0-33.0) pg MCHC 36.0 (31.0-36.0) g/dl RDW 13.2 (11.0-16.0) % Plt Count 145 L D (160-400) X10*3/uL MPV 10.3 (9.4-12.4) fL Immature Gran % (Auto) 0.5 H (0.0-0.4) % Neut % (Auto) 85.1 H (45-73) % Lymph % (Auto) 3.8 L (20-40) % [place] % (Auto) 10.1 (2-11) % Eos % (Auto) 0.1 (0-4) % Baso % (Auto) 0.4 (0-2) % Lymph # (Auto) 0.5 L (1.2-4.9) X10*3/uL [place] # (Auto) 1.3 H (0.1-1.2) X10*3/uL Eos # (Auto) 0.0 (0.0-0.4) X10*3/uL Baso # (Auto) 0.1 (0.0-0.2) X10*3/uL Abs Immat Gran (auto) 0.07 H (0.00-0.03) X10*3/uL Absolute Neuts (auto) 11.3 H (2.0-8.3) x10*3/uL Absolute Nucleated RBC 0.000 (0.0-0.012) X10*3/uL Nucleated RBC % (auto) 0.0 (0.0-0.2) /100WBC PT 18.0 H (10.9-12.4) SEC INR 1.5 H (0.9-1.1) Sodium 133 L (135-145) mmol/L Potassium 3.9 (3.3-5.1) mmol/L Chloride 104 (96-108) mmol/L Carbon Dioxide 19 L (22-29) mmol/L Anion Gap 14 (12-20) BUN 10 (9-16) mg/dL Creatinine 0.74 (0.5-1.4) mg/dL Estim Creat Clear Calc 128.9 Estimated GFR > 60 Random Glucose 143 H (60-115) mg/dL Lactic Acid 2.0 (0.5-2.0) mmol/L Calcium 8.6 (8.4-10.2) mg/dL Total Bilirubin 3.0 H (0.0-1.0) mg/dL AST 24 (5-37) U/L ALT 10 (0-40) U/L Alkaline Phosphatase 135 H (39-117) U/L Total Protein 6.8 (6.5-8.0) g/dL Albumin 3.2 L (3.5-5.0) g/dL Amylase 39 (28-100) U/L Lipase 29 (8-78) U/L Independent Interpretation I performed an independent interpretation of an: EKG and CT Scan (No gross obstruction question cholecystitis) Independent Historian Clinical information obtained from an independent historian. History obtained from or confirmed by: Spouse Medications Administered Generic Name Dose Route Start Last Admin Trade Name Freq PRN Reason Stop Dose Admin Sodium Chloride 1,000 mls @ 999 mls/hr 01/29/24 19:30 01/29/24 19:41 Ns IV 01/29/24 20:30 999 mls/hr .Q1H1M THOMAS Administration Sodium Chloride 1,000 mls @ 999 mls/hr 01/29/24 19:30 01/29/24 19:41 Ns IV 01/29/24 20:30 999 mls/hr .Q1H1M THOMAS Administration Discontinued Medications Generic Name Dose Route Start Last Admin Trade Name Freq PRN Reason Stop Dose Admin Ceftriaxone Sodium 2 gm 01/29/24 17:38 01/29/24 19:41 Ceftriaxone Sodium 2 Gm Vial IVPUSH 01/29/24 17:39 2 gm ONCE ONE Administration Metronidazole 500 mg in 100 mls @ 100 mls/hr 01/29/24 17:38 01/29/24 19:41 Flagyl IV 01/29/24 18:37 100 mls/hr ONCE ONE Administration Iohexol 100 ml 01/29/24 18:44 01/29/24 18:46 Iohexol 350 Mg/Ml 100 Ml Infus..Btl IV 01/29/24 18:45 85 ml ONCE ONE Administration Discharge Plan Discharge Clinical Impression: Acute cholecystitis Patient Disposition: Admitted As Inpatient Prescriptions: No Action (DME) right great toe prosthetic to fit See Rx Instructions .Route .MEDSUPPLY Qty: 1 0RF Rx Instructions: As directed (DME) prosthetic shoe to fit See Rx Instructions .Route .MEDSUPPLY Qty: 1 0RF Rx Instructions: As directed lisinopril 5 mg tablet 5 mg PO DAILY Qty: 90 7RF simvastatin 5 mg tablet 5 mg PO BEDTIME Qty: 90 1RF sildenafil 100 mg tablet 100 mg PO DAILY PRN (Reason: sexual activity) Qty: 6 11RF diclofenac sodium [Voltaren Arthritis Pain] 1 % gel 4 g topical QID Qty: 100 4RF Rx Instructions: apply to single knee, ankle, foot; for foot includes sole/toes/top of foot Print Language: Upper Sorbian
[2024-01-29 17:53] LABS: MANUAL DIFF FLAG NO
[2024-01-29 18:00] LABS: Amylase 39 U/L (28-100); INTERNATIONAL NORM RATIO 1.5 (0.9-1.1)
[2024-01-29 18:10] LABS: Alanine Aminotransferase 10 U/L (0-40); Albumin Level 3.2 g/dL (3.5-5.0); Alkaline Phosphatase 135 U/L (39-117); Anion Gap 14 (12-20); Aspartate Amino Transferase 24 U/L (5-37); Blood Urea Nitrogen 10 mg/dL (9-16); Calcium 8.6 mg/dL (8.4-10.2); Carbon Dioxide 19 mmol/L (22-29); Chloride 104 mmol/L (96-108); Creatinine Clr Calc Pharmacy 128.9; Estimated Glomerular Filt Rate > 60; Glucose Random 143 mg/dL (60-115); Lipase 29 U/L (8-78); Potassium 3.9 mmol/L (3.3-5.1); Sodium 133 mmol/L (135-145); Total Protein 6.8 g/dL (6.5-8.0)
[2024-01-29 18:18] LABS: Basophils Absolute Auto 0.1 X10*3/uL (0.0-0.2); Basophils Percent Auto 0.4 % (0-2); Eosinophils Percent Auto 0.1 % (0-4); Hematocrit 38.1 % (42.0-52.0); Hemoglobin 13.7 g/dl (14.0-18.0); Imm Gran Abs Auto 0.07 X10*3/uL (0.00-0.03); Imm Gran Pct Auto 0.5 % (0.0-0.4); Lymphocytes Absolute Auto 0.5 X10*3/uL (1.2-4.9); Lymphocytes Percent Auto 3.8 % (20-40); Mean Corpuscular Hemoglobin 33.8 pg (27.0-33.0); Mean Corpuscular Volume 94.1 fL (80.0-98.0); Mean Platelet Volume 10.3 fL (9.4-12.4); Monocytes Absolute Auto 1.3 X10*3/uL (0.1-1.2); Monocytes Percent Auto 10.1 % (2-11); Neutrophils Absolute Auto 11.3 x10*3/uL (2.0-8.3); Neutrophils Percent Auto 85.1 % (45-73); Platelet Count 145 X10*3/uL (160-400); Red Blood Count 4.05 X10*6/uL (4.60-5.80); Red Cell Distribution Width 13.2 % (11.0-16.0); White Blood Count 13.2 X10*3/uL (4.8-10.8)
--- NOTE | 2024-01-29 18:33 | PC.NURSE ---
patient a&ox3, rr equal non labored, pt c/o abdominal pain 11/02- iv inserted, labs drawn, after drawing labs- ed provider added blood cultures and lactic, pt was a difficult stick, tech attempted x2 and this nurse attempted straight stickx1 without success- additional tech will attempt the blood cultures. pt going to radiology at this time.
[2024-01-29] MEDS: iohexoL 350 MG/ML 100 ML INFUS..BTL IV (18:46)
--- NOTE | 2024-01-29 19:04 | PM.HPGS ---
History of Present Illness History of Present Illness Date of Service: 01/29/24 Chief complaint: gallstones/sent by PCP Narrative: Nate Correa is a 63 year old male with known diabetes, hypertension, ETOH abuse, here in the ER because of fever at home and abdominal pain. He describes this abdominal pain on the mid abdomen and right side for about 4-5 days. He said he had an ultrasound yesterday in the primary care physician's office which showed gallstones and some thickening of the gallbladder wall. He has he had some fever today up to 101 at home so he was sent to the emergency room He describes some low intensity pain on the right side of the abdomen in the mid abdomen He is a known alcoholic. According to the , he drinks up to 9 bottles of beer every day for many years. He did have a knee replacement last month so he had cut down significantly according to the . He has a known history of amputation of the big toe of the 2nd toe on the right for gangrene in 2021. Review of Systems Constitutional: Constitutional: Reports fever(s) Cardiovascular: Cardiovascular: Denies chest pain, Denies dyspnea and Denies dyspnea on exertion Respiratory: Respiratory: Denies cough, Denies dyspnea and Denies dyspnea on exertion Gastrointestinal: Gastrointestinal: Denies hematochezia and Denies change in bowel habits Genitourinary: Genitourinary: Denies hematuria and Denies difficulty urinating Musculoskeletal: Musculoskeletal: Denies back pain and Denies limited range of motion Neurologic: Denies focal weakness and Denies convulsions Psychiatric: Psychiatric: Denies depression and Denies mood swings [facility] Past Medical History Medical History (Updated 01/29/24 @ 19:08 by Ward Pina MD) Acute cholecystitis due to biliary calculus Bacteremia Alcohol use Wet gangrene Acidosis, lactic Leukocytosis Type 2 diabetes mellitus with hyperglycemia Lesion of right eyelid Colon cancer screening Constipation Guaiac + stool Fatty liver Cholelithiasis Hypertension Erectile dysfunction Hypercholesterolemia Thrombocytopenia Knee osteoarthritis Obesity (BMI 30-39.9) Family History Family History Family/Other Medical history unknown Surgical History Surgical History History of total left knee replacement History of amputation of toe (10/14/22) Hx of colonoscopy History of left knee surgery Social History Social History Household Members: Spouse Housing: House Patient Tobacco Use Status: Never used Tobacco Smoked in Last 30 Days: No e-Cigarette/Vaping Use: Never Used Second Hand Smoke Exposure: No Use of substances other than those prescribed or required for medical reasons: No Advance Directives: No Advance Directives Information Provided: Yes service: No Current occupational status: employed Current occupational exposures/hazards: No Cognitive needs: No Hearing needs: No Vision needs: Yes Meds Allergies Allergy/AdvReac Type Severity Reaction Status Date / Time No Known Allergies Allergy Verified 01/29/24 17:05 Physical Exam Vital Signs: Vital Signs: Last Vital Signs Temp 99.8 F 01/29/24 17:04 Pulse 108 H 01/29/24 17:04 Resp 18 01/29/24 17:04 BP 142/80 H 01/29/24 17:04 Pulse Ox 95 01/29/24 17:04 O2 Del Method Room Air 01/29/24 17:04 BMI result Body Mass Index 32.8 Const: Other: Appears jaundice General: comfortable and no acute distress Orientation/consciousness: patient oriented x3 Eyes: Other: Sclerae icteric Neck: Neck: Yes no lymphadenopathy Resp: Auscultation: clear to auscultation bilaterally Cardio: Rhythm: regular rhythm GI: Palpation (GI): Soft to palpation, nontender and no guarding Neuro: General: patient oriented x3 Results Results Labs: Short CBC 01/29/24 Range/Units 17:46 WBC 13.2 H (4.8-10.8) X10*3/uL Hgb 13.7 L (14.0-18.0) g/dl Hct 38.1 L (42.0-52.0) % Plt Count 145 L D (160-400) X10*3/uL BMP 01/29/24 17:46 Sodium 133 L Potassium 3.9 Chloride 104 Carbon Dioxide 19 L BUN 10 Creatinine 0.74 Calcium 8.6 Liver Function 01/29/24 Range/Units 17:46 Total Bilirubin 3.0 H (0.0-1.0) mg/dL AST 24 (5-37) U/L ALT 10 (0-40) U/L Alkaline Phosphatase 135 H (39-117) U/L Albumin 3.2 L (3.5-5.0) g/dL Assessment and Plan (1) Acute cholecystitis due to biliary calculus: Status: Acute His imaging studies show gallbladder wall thickening along with gallstones. There was note of inflammatory changes as well on CT scan. Findings are consistent with acute cholecystitis. However, his bilirubin was also elevated significantly at 3.0. He does have chronic liver disease from alcohol. I am going to order for an MRCP to rule out CBD stones. He is to be started on IV antibiotic with Zosyn. He will be hydrated with IV fluids. We will consult the color checker service as well because of his alcoholic liver disease. We will follow his LFTs closely. Definitive treatment should be cholecystectomy , ideally with a laparoscopy. I explained this to him and his . He does present with significant perioperative risks with this diabetes, and alcoholic liver disease. Procedures Date of Service Date of Service: 01/29/24
[2024-01-29] MEDS: cefTRIAXone sodium 2 GM VIAL IVPUSH (19:41)
[2024-01-29] MEDS: 0.9 % Sodium Chloride 1,000 ML 999 ML IV ×2 (19:41)
[2024-01-29] MEDS: metroNIDAZOLE/NS 500 MG/100 ML PIGGYBACK 100 MG IV (19:41)
[2024-01-29 19:55] VITALS: BP 127/71; PULSE 93; RESP 17; TEMP 37.3; O2SAT 95
[2024-01-29] MEDS: HYDROmorphone HCl 0.5 MG/0.5 ML SYRINGE IVPUSH (19:57)
--- NOTE | 2024-01-29 20:52 | P.CONGS_ITS ---
History of Present Illness Consult details Consult date: 01/29/24 Narrative: 63M here in the ED for abdominal pain and fever. He has known alcohol liver disease and DM. He says he has been having mild right sided and midabdominal pain since 4 days ago. He went his PCP yesterday and had an US which showed some ascites as well as GB wall thickening and gallstones. His says he had some fever of 101 today so he was brought to the ED. He has a long hx iof heavy alcohol intake for many years. His says he usually drinks about 9 bottles of bear daily. He underwent knee replacement last month so his ETOH intake has decreased a lot since. He says he has some pain on the midabdomen and right side . He has no nausea or vomitting. His says he seems to be in denial of his multiple medical problems and is usually ornery about these. Review of Systems 2 Constitutional: Constitutional: Reports fever(s) Cardiovascular: Cardiovascular: Reports chest pain Respiratory: Respiratory: Reports cough Gastrointestinal: Gastrointestinal: Reports abdominal pain and Denies diarrhea PMFSH Past Medical History Medical History (Updated 01/29/24 @ 22:25 by Edwina Tatum MD) Gallstones Acute cholecystitis due to biliary calculus Bacteremia Alcohol use Wet gangrene Acidosis, lactic Leukocytosis Type 2 diabetes mellitus with hyperglycemia Lesion of right eyelid Colon cancer screening Constipation Guaiac + stool Fatty liver Cholelithiasis Hypertension Erectile dysfunction Hypercholesterolemia Thrombocytopenia Knee osteoarthritis Obesity (BMI 30-39.9) Family History Family History Family/Other Medical history unknown Surgical History Surgical History History of total left knee replacement History of amputation of toe (01/06/22) Hx of colonoscopy History of left knee surgery Social History Social History Household Members: Significant Other Housing: House Do you presently have visiting nurse or other home services: Yes Patient Tobacco Use Status: Never used Tobacco e-Cigarette/Vaping Use: Never Used Second Hand Smoke Exposure: No service: No Current occupational status: employed Current occupational exposures/hazards: No Cognitive needs: No Hearing needs: No Vision needs: Yes Meds Allergies Allergy/AdvReac Type Severity Reaction Status Date / Time No Known Allergies Allergy Verified 01/29/24 17:05 Active Medications: Current Medications Acetaminophen (Acetaminophen 325 Mg Tablet) 975 mg PO Q6H PRN PRN Reason: Pain, Mild (Pain Scale 1-3), fever or headache Sodium Chloride (0.9 % Sodium Chloride Flush 3 Ml Syringe) 3 ml IVFLUSH QSHIFT THOMAS Physical Exam 2 Vital Signs: Vital Signs: Last Vital Signs Temp 99.2 F 01/29/24 19:55 Pulse 93 01/29/24 19:55 Resp 17 01/29/24 19:55 BP 127/71 01/29/24 19:55 Pulse Ox 95 01/29/24 19:55 O2 Del Method Room Air 01/29/24 19:55 BMI result Body Mass Index 32.8 Const: Other: looks jaundiced General: comfortable and no acute distress Limitations: ambulation with walker Eyes: Other: icteric sclerae GI: Palpation (GI): Soft to palpation, not firm, Tenderness to palpation present (GI) (some tenderness on RUQ without Santiago's sign) and no guarding Results Labs 02/01/24 05:27 02/01/24 05:27 Labs: Abnormal lab results 01/29/24 Range/Units 17:46 WBC 13.2 H (4.8-10.8) X10*3/uL RBC 4.05 L (4.60-5.80) X10*6/uL Hgb 13.7 L (14.0-18.0) g/dl Hct 38.1 L (42.0-52.0) % MCH 33.8 H (27.0-33.0) pg Plt Count 145 L D (160-400) X10*3/uL Immature Gran % (Auto) 0.5 H (0.0-0.4) % Neut % (Auto) 85.1 H (45-73) % Lymph % (Auto) 3.8 L (20-40) % Lymph # (Auto) 0.5 L (1.2-4.9) X10*3/uL [place] # (Auto) 1.3 H (0.1-1.2) X10*3/uL Abs Immat Gran (auto) 0.07 H (0.00-0.03) X10*3/uL Absolute Neuts (auto) 11.3 H (2.0-8.3) x10*3/uL PT 18.0 H (10.9-12.4) SEC INR 1.5 H (0.9-1.1) Sodium 133 L (135-145) mmol/L Carbon Dioxide 19 L (22-29) mmol/L Random Glucose 143 H (60-115) mg/dL Total Bilirubin 3.0 H (0.0-1.0) mg/dL Alkaline Phosphatase 135 H (39-117) U/L Albumin 3.2 L (3.5-5.0) g/dL Short CBC 01/29/24 Range/Units 17:46 WBC 13.2 H (4.8-10.8) X10*3/uL Hgb 13.7 L (14.0-18.0) g/dl Hct 38.1 L (42.0-52.0) % Plt Count 145 L D (160-400) X10*3/uL BMP 01/29/24 17:46 Sodium 133 L Potassium 3.9 Chloride 104 Carbon Dioxide 19 L BUN 10 Creatinine 0.74 Calcium 8.6 Liver Function 01/29/24 Range/Units 17:46 Total Bilirubin 3.0 H (0.0-1.0) mg/dL AST 24 (5-37) U/L ALT 10 (0-40) U/L Alkaline Phosphatase 135 H (39-117) U/L Albumin 3.2 L (3.5-5.0) g/dL All other labs normal. Assessment and Plan (1) Gallstones: Status: Acute His CT shows some GB wall thickening, multiple gallstones with some inflammatory changes in the area. However, he has chronic ETOH use with findings of cirrhosis and portal HTN on CT. He may therefore present with high perioperative risks for cholecystectomy especially with uncontrolled bleeding. It may be more prudent for him to undergo IR cholecystostomy tube drainage consdering his liver disease with new diagnosis of cirrhosis and portal hypertension. He should be on IV abx and aggressively hydrated. His lactate is normal. Procedures Date of Service Date of Service: 02/01/24
--- NOTE | 2024-01-29 20:52 | PHA.MEDREC ---
Addendum entered by Cristela Mendenhall RPh 01/29/24 21:14: Med rec was reviewed by [facility]. Original Note: Pharmacy Consult ? Medication Reconciliation Pharmacy has completed the medication reconciliation Spoke to patient and at bedside to confirm med list. Patient states he is no longer on Celecoxib 200 mg, Diclofenac sod 1 % gel, and Sildenafil 100 mg. Patient said he only takes Lisinopril 5 mg and when he remembers to take Simvastatin 5 mg, last time he took was Sunday01/25/24
[2024-01-29] MEDS: HYDROmorphone HCl 1 MG/ML SYRINGE IVPUSH (20:57)
[2024-01-29] MEDS: Pantoprazole Sodium 40 MG/10 ML VIAL IVPUSH (20:57)
[2024-01-29] MEDS: Prochlorperazine Edisylate 10 MG/2 ML VIAL 5 MG IVPUSH (20:57)
[2024-01-29 20:58] VITALS: BP 128/64; PULSE 95; RESP 18; O2SAT 95
[2024-01-29 21:02] VITALS: BP 111/59; PULSE 93; RESP 20; O2SAT 95
[2024-01-29 21:06] VITALS: BP 113/58; PULSE 94; RESP 17; TEMP 38.2; O2SAT 95
--- OUTSIDE RECORDS SUMMARY | 2024-01-29 21:09 | XMS_ITS | Continuity of Care Document ---
Author Organization [facility] Address [address] [place] [address]- Care Team Providers Care Commissioned Sales Associate Name Role Phone Not on Staff, PCP Primary Care Physician Unavail able Encounter [facility] [place] Date(s): 12/13/23 - 12/20/23 [facility] [address], [place] [address] Attending Physician: Sp Galindo MD Referring Physician: Kathrine HAMMOND, Kashif Rizvi Allergies, Adverse Reactions, Alerts No Known Medication Allergies Medications lisinopril 5 mg oral tablet TAKE 1 TABLET BY MOUTH EVERY DAY Start Date: 12/12/23 Status: Ordered sildenafil 100 mg oral tablet TAKE 1 TABLET BY MOUTH ONCE A DAY NEEDED FOR SEXUAL ACTIVITY Start Date: 12/12/23 Status: Ordered simvastatin 5 mg oral tablet TAKE 1 TABLET BY MOUTH AT BEDTIME Start Date: 12/12/23 Status: Ordered Procedures Procedure Date Related Diagnosis Body Site Status Amputation of right great and 2nd toe Completed Vital Signs Most recent to oldest [Reference Range]: 1 Weight 120.8 kg (12/13/23 1:04 PM) Oxygen Saturation [94-100 %] 99 % (12/13/23 1:04 PM) Pulse Rate [55-90 bpm] 108 bpm *H* (12/13/23 1:04 PM) Blood Pressure [90-138/55-84 mm Hg] 121/ 78mm Hg (12/13/23 1:04 PM) Respiratory Rate [16-30 br/min] 14 br/mi n *L* (12/13/23 1:04 PM) Mode of Delivery (Oxygen) Room air (12/13/23 1:04 PM) Blood pressure sites Arm, left (12/13/23 1:04 PM) Dry Weight 120.8 kg (12/13/23 1:04 PM) Weight Obtained Via Standing scale (12/13/23 1:04 PM) Dry Weight Obtained Via Standing scale (12/13/23 1:04 PM) Social History Social History Type Response Smoking Status Never (less than 100 in lifetime) entered on: 12/13/23 Sex EKG study * Event Display: ECG 12-Lead Authored Date: Please click on pdf link to open report * Event Display: ECG 12-Lead Authored Date: Ventricular Rate: 79 BPM Atrial Rate: 79 BPM P-R Interval: 178 ms QRS Duration: 110 ms Q-T Interval: 398 ms QTC Calculation(Bazett): 456 ms P [place]: 40 degrees R [place]: -25 degrees T [place]: 4 degrees Normal sinus rhythm Moderate voltage criteria for LVH, may be normal variant Borderline ECG No previous ECGs available Confirmed by Isrrael Palmer ([id number]) on 12/13/2023 2:04:06 PM Hamer: Isrrael Palmer Patient Care team information Care Team Personnel Name: Not on Staff, PCP Position: S Physician (General Medicine) Member Role: PCP
--- OUTSIDE RECORDS SUMMARY | 2024-01-29 21:09 | XMS_ITS | Continuity of Care Document ---
Author Organization [facility] Address [address] [place] [id number]- Care Team Providers Care Train Station Agent Name Role Phone Not on Staff, PCP Primary Care Physician Unavail able Encounter [facility] [place] Date(s): 12/13/23 - 01/12/24 [facility] [address], [place] [address] Attending Physician: William Horn Admitting Physician: William Horn Referring Physician: William Horn Allergies, Adverse Reactions, Alerts No Known Medication [...] AT BEDTIME Start Date: 12/12/23 Status: Ordered Social History Social History Type Response Smoking Status Never (less than 100 in lifetime) entered on: 12/13/23 Sex Patient Care team information Care Team Personnel Name: Not on Staff, PCP Position: S Physician (General Medicine) Member Role: PCP
--- NOTE | 2024-01-29 21:23 | P.HPHOSP_ITS ---
History of Present Illness Date of Service: 01/29/24 Attending physician on admission: Edwina Tatum Chief Complaint: Abdominal pain Nate Correa is a 63 years old man with past medical history significant for liver cirrhosis due to alcohol abuse, type 2 diabetes mellitus, hyperlipidemia and essential hypertension presents to the emergency department complaining periumbilical and right upper quadrant abdominal pain that started Sunday associated with heartburn, fever and nausea. No vomiting or diarrhea reported. Patient did not report any acute urinary symptoms. It seems like the patient has history of alcohol use. He said that the last time he drank alcohol was 2 months ago, however, who was at bedside commented that he has been drinking beer more recently than this. He has history of recent left knee surgery for which he was taking aspirin for DVT prophylaxis as well as Celebrex. He was wondering if this is causing this is contributing to his symptoms. Denied illicit drug use or marijuana use. He takes statin and lisinopril but has not been taking them recently. He did not report any acute cardiopulmonary symptoms. He follows up with , GI specialist, as an outpatient. In the ED, he was found to have fever of 100.8 and mild tachycardia. Blood pressure has been stable, last one is 113/58. Oxygen saturation is normal on room air. Blood workup was remarkable for leukocytosis of 13.2, hemoglobin of 13.7 and platelets 145. INR is 1.5. Sodium is 133. There are no other significant electrolyte imbalances. CO2 is 19 and renal function is normal. Total bilirubin and alk-phos are elevated. Transaminases are normal. Amylase and lipase are normal. Abdominal ultrasound finding consistent with cirrhosis, moderate ascites, cholelithiasis, gallbladder wall thickening and splenomegaly. Abdomen pelvis CT scan with IV contrast showed cirrhosis with portal hypertension, varices, splenomegaly and mesenteric edema and small amount of fluid in the cul de sac, there is no CBD dilatation. It also showed enlarged gallbladder with gallstones and mild wall thickening, ascites and diffuse ascending colon hepatic flexure mural thickening question colitis. ED tx: Dilaudid 0.5 mg IV, NS 2 L bolus, metronidazole 500 mg IV, ceftriaxone 2 g IV. Review of Systems 2 Review of Systems: All 12 systems were reviewed and normal except as noted in HPI. [facility] Medical History (Updated 01/29/24 @ 22:25 by Edwina Tatum MD) Gallstones Acute cholecystitis due to biliary calculus Bacteremia Alcohol use Wet gangrene Acidosis, lactic Leukocytosis Type 2 diabetes mellitus with hyperglycemia Lesion of right eyelid Colon cancer screening Constipation Guaiac + stool Fatty liver Cholelithiasis Hypertension Erectile dysfunction Hypercholesterolemia Thrombocytopenia Knee osteoarthritis Obesity (BMI 30-39.9) Family History Family/Other Medical history unknown Surgical History History of total left knee replacement History of amputation of toe (01/06/22) Hx of colonoscopy History of left knee surgery Social History Household Members: Spouse Housing: House Patient Tobacco Use Status: Never used Tobacco Smoked in Last 30 Days: No e-Cigarette/Vaping Use: Never Used Second Hand Smoke Exposure: No Use of substances other than those prescribed or required for medical reasons: No Advance Directives: No Advance Directives Information Provided: Yes service: No Current occupational status: employed Current occupational exposures/hazards: No Cognitive needs: No Hearing needs: No Vision needs: Yes Meds Allergies Allergy/AdvReac Type Severity Reaction Status Date / Time No Known Allergies Allergy Verified 01/29/24 17:05 Active Medications: Current Medications Acetaminophen (Acetaminophen 325 Mg Tablet) 975 mg PO Q6H PRN PRN Reason: Pain, Mild (Pain Scale 1-3), fever or headache Hydromorphone HCl (Hydromorphone Hcl 1 Mg/Ml Syringe) 1 mg IVPUSH Q3H PRN; Protocol PRN Reason: Pain, Severe (Pain Scale 7-10) Thiamine HCl 100 mg/ Sodium (Chloride) 101 mls @ 202 mls/hr IV DAILY THOMAS Dextrose/Sodium Chloride (D51/2ns) 1,000 mls @ 80 mls/hr IVCONT .[id number] THOMAS Ondansetron HCl (Ondansetron Hcl 4 Mg/2 Ml Vial) 4 mg IVPUSH Q6H PRN PRN Reason: Nausea and Vomiting Sodium Chloride (0.9 % Sodium Chloride Flush 3 Ml Syringe) 3 ml IVFLUSH QSHIFT THOMAS Physical Exam 2 Vital Signs and Narrative: Vital Signs: Last Vital Signs Temp 100.8 F H 01/29/24 21:06 Pulse 94 01/29/24 21:06 Resp 17 01/29/24 21:06 BP 113/58 L 01/29/24 21:06 Pulse Ox 95 01/29/24 21:06 O2 Del Method Room Air 01/29/24 21:06 BMI result Body Mass Index 32.8 Constitutional - Awake and Alert, No apparent distress. Frustrated. Cooperative. Febrile. HEENT - PERRLA, EOMI. Icteric sclerae. Dry oral mucosa. Heart - RRR, No murmurs. Lungs - Normal lung expansion, Normal respiratory effort, No respiratory distress, CTA bilaterally Abdomen - Distant bowel sounds. Periumbilical and RLQ tenderness. No rebound. No guarding. Distended. (+) fluid waves. Extremities - Mininal pitting edema to the lower extremities. Left knee surgical scar noted. Musculoskeletal - Normal inspection, normal ROM Skin - Warm/Dry. Jaundice. Neurological - Alert & oriented x3. Psychological - Appropriate affect Results Labs 01/29/24 17:46 01/29/24 17:46 Labs: Laboratory Results - last 24 hr 01/29/24 01/29/24 17:46 19:21 MCV 94.1 MCH 33.8 H MCHC 36.0 RDW 13.2 Plt Count 145 L D MPV 10.3 Immature Gran % (Auto) 0.5 H Neut % (Auto) 85.1 H Lymph % (Auto) 3.8 L [place] % (Auto) 10.1 Eos % (Auto) 0.1 Baso % (Auto) 0.4 Lymph # (Auto) 0.5 L [place] # (Auto) 1.3 H Eos # (Auto) 0.0 Baso # (Auto) 0.1 Abs Immat Gran (auto) 0.07 H Absolute Neuts (auto) 11.3 H Absolute Nucleated RBC 0.000 Nucleated RBC % (auto) 0.0 PT 18.0 H INR 1.5 H Anion Gap 14 Estim Creat Clear Calc 128.9 Estimated GFR > 60 Random Glucose 143 H Lactic Acid 2.0 Calcium 8.6 Total Bilirubin 3.0 H AST 24 ALT 10 Alkaline Phosphatase 135 H Total Protein 6.8 Albumin 3.2 L Amylase 39 Lipase 29 Imaging Radiologist's Impressions: Impressions Abdomen/Pelvis CT 01/29/24 18:40 IMPRESSION: Cirrhosis with portal hypertension, varices, splenomegaly and mesenteric edema and small amount of free fluid in cul-de-sac. CBD is nondilated. Enlarged gallbladder with gallstones and mild wall thickening. There is surrounding fluid likely ascites. The gallbladder thickening could be secondary to inflammatory process from adjacent colitis and/or cirrhosis. Primary cholecystitis is considered less likely. There is diffuse ascending colon and hepatic flexure mural thickening question colitis. Diverticulitis is considered less less likely in spite of few scattered colonic diverticuli. No proximal small bowel obstruction or distention seen. Fleischner guidelines were followed. Electronically signed by: Robi Benitez MD 01/29/2024 08:16 PM [facility] Assessment and Plan (1) Gallstones: Status: Acute (2) Acute cholecystitis: Status: Acute (3) Ascites: Qualifiers: Ascites type: due to alcoholic cirrhosis Qualified Code(s): K70.31 - Alcoholic cirrhosis of liver with ascites Status: Acute (4) Cholelithiasis: Qualifiers: Cholelithiasis location: gallbladder Cholecystitis presence: without cholecystitis Biliary obstruction: with biliary obstruction Qualified Code(s): K80.21 - Calculus of gallbladder without cholecystitis with obstruction Status: Acute Plan Nate Correa is a 63 y/o PMHx significan for liver cirrhosis + portal hypertension admitted with: * Abdominal pain and fever in the setting of cholelithiasis. No common bile duct dilatation. Acute cholecystitis? SBP? Admit to hospitalist service. Keep NPO. Start IV fluids. Pain control with Dilaudid IV as needed as well as antiemetics. Continue empiric IV antibiotic therapy with Flagyl and ceftriaxone. Check urinalysis and CXR. Per ED physician MRCP was recommended. IR consult for paracentesis. * Heartburn. Start Protonix IV infusion. * Essential hypertension. Lisinopril on hold due to NPO status. Labetalol IV as needed. * Hyperlipidemia. Start statin when able. * Elevated bilirubin and alk-phos, normal transaminases. Likely secondary to liver disease. Continue to monitor LFTs. * Hyponatremia. Likely 3rd spacing. * Hx of diabetes mellitus. Not on meds. BG checks q 6h while NPO. = * Thrombocytopenia and elevated INR. Due to liver disease; no evidence of acute bleeding. Continue to monitor platelets, hemoglobin and INR. * Hx of alcohol abuse?, discrepancy between what patient and says about alcohol consumption. [facility] protocol. Thiamine IV. Folic acid, multivitamin and magnesium orally when able. GI prophylaxis: Protonix IV DVT prophylaxis: SCDs (thrombocytopenia) Code status: Full Patient will need hospitalization for at least 2 midnights for abdominal pain concerning for acute cholecystitis and/or SBP management evaluation with empiric IV antibiotic therapy, MRCP and evaluation by subspecialty. Quality Stroke Does the patient have a stroke diagnosis?: No VTE Prior VTE?: No VTE Risk Level:: Medical - moderate - high VTE Device Contraindication: N/A - Device Ordered VTE Drug Contraindication: Treatment Not Indicated
[2024-01-29] MEDS: Acetaminophen 325 MG TABLET 975 MG PO (21:33)
[2024-01-29] MEDS: Dextrose 5 % and 0.45 % NaCl 1,000 ML 80 ML IVCONT (21:36)
[2024-01-29] MEDS: Thiamine HCL 100 MG in 0.9 % Sodium Chloride 100 ML 202 MG IV (22:00)
[2024-01-29 23:19] VITALS: BP 98/62; PULSE 94; RESP 19; TEMP 37.3; O2SAT 94
[2024-01-29 23:24] LABS: Glucose, Whole Blood 139 mg/dL (60-115)
[2024-01-30 04:57] LABS: Glucose, Whole Blood 139 mg/dL (60-115)
[2024-01-30 04:58] VITALS: BP 128/75; PULSE 100; RESP 20; TEMP 37.2; O2SAT 95
[2024-01-30] MEDS: metroNIDAZOLE/NS 500 MG/100 ML PIGGYBACK 100 MG IV ×3 (04:58→18:18)
[2024-01-30 05:05] LABS: MANUAL DIFF FLAG NO
[2024-01-30 05:08] LABS: Basophils Absolute Auto 0.1 X10*3/uL (0.0-0.2); Basophils Percent Auto 0.4 % (0-2); Eosinophils Absolute Auto 0.1 X10*3/uL (0.0-0.4); Eosinophils Percent Auto 0.7 % (0-4); Hematocrit 34.8 % (42.0-52.0); Hemoglobin 12.9 g/dl (14.0-18.0); Imm Gran Abs Auto 0.04 X10*3/uL (0.00-0.03); Imm Gran Pct Auto 0.3 % (0.0-0.4); Lymphocytes Absolute Auto 0.6 X10*3/uL (1.2-4.9); Mean Corpuscular HGB Conc 37.1 g/dl (31.0-36.0); Mean Corpuscular Hemoglobin 34.4 pg (27.0-33.0); Mean Corpuscular Volume 92.8 fL (80.0-98.0); Mean Platelet Volume 9.9 fL (9.4-12.4); Monocytes Absolute Auto 1.4 X10*3/uL (0.1-1.2); Monocytes Percent Auto 11.9 % (2-11); Neutrophils Absolute Auto 9.9 x10*3/uL (2.0-8.3); Neutrophils Percent Auto 81.7 % (45-73); Platelet Count 126 X10*3/uL (160-400); Red Blood Count 3.75 X10*6/uL (4.60-5.80); Red Cell Distribution Width 13.2 % (11.0-16.0); White Blood Count 12.1 X10*3/uL (4.8-10.8)
[2024-01-30 05:12] LABS: Appearance Urine Clear; Color Urine Dark Yellow; Glucose Urine UA Negative (Negative); Leukocyte Esterase Urine Trace (Negative); Nitrite Urine Negative (Negative); PH 6.5 (5.0-9.0); Specific Gravity - Urine >= 1.030 (1.005-1.025); UMIC TRIGGER UACC YES; Urine Blood Large (3+) (Negative); Urine Ketones Trace mg/dL (Negative); Urine Protein Trace mg/dL (Neg-Trace)
[2024-01-30 05:13] LABS: INTERNATIONAL NORM RATIO 1.6 (0.9-1.1); Prothrombin Time 18.1 SEC (10.9-12.4)
[2024-01-30 05:17] LABS: Bacteria Urine None Seen (None Seen); Hyaline Casts Urine 0-2 /LPF (0-2); RBC Urine >20 /HPF (0-2); Squamous Epithelial Cell Urine 0-2 /HPF (0-2); WBC Urine 0-5 /HPF (0-5)
[2024-01-30 05:24] LABS: Alanine Aminotransferase 12 U/L (0-40); Alkaline Phosphatase 121 U/L (39-117); Anion Gap 13 (12-20); Aspartate Amino Transferase 22 U/L (5-37); Bilirubin Total 2.6 mg/dL (0.0-1.0); Blood Urea Nitrogen 9 mg/dL (9-16); Calcium 8.1 mg/dL (8.4-10.2); Carbon Dioxide 18 mmol/L (22-29); Chloride 109 mmol/L (96-108); Creatinine Clr Calc Pharmacy 142.4; Estimated Glomerular Filt Rate > 60; Glucose Random 156 mg/dL (60-115); Potassium 3.6 mmol/L (3.3-5.1); Sodium 136 mmol/L (135-145); Total Protein 6.4 g/dL (6.5-8.0)
[2024-01-30] MEDS: Pantoprazole Sodium 40 MG/10 ML VIAL IVPUSH (06:13)
--- NOTE | 2024-01-30 08:56 | PM.PNGS ---
Subjective Subjective Date of Service: 01/30/24 Interval history: Still has some abdominal pain although better Hungry and wants to eat Physical Exam Vital Signs: Vital Signs: Last Vital Signs Temp 99 F 01/30/24 04:58 Pulse 100 01/30/24 04:58 Resp 20 01/30/24 04:58 BP 128/75 01/30/24 04:58 Pulse Ox 95 01/30/24 04:58 O2 Del Method Room Air 01/30/24 04:58 BMI result Body Mass Index 32.8 Const: General: comfortable and no acute distress Resp: Effort & Inspection: normal respiratory effort Cardio: Rhythm: regular rhythm GI: Palpation (GI): Soft to palpation, not firm, Tenderness to palpation present (GI) (Some tenderness on the right side) and no guarding Objective Data Active Medications Acetaminophen (Acetaminophen 325 Mg Tablet) 975 mg PO Q6H PRN PRN Reason: Pain, Mild (Pain Scale 1-3), fever or headache Last Admin: 01/29/24 21:33 Dose: 975 mg Documented By: DEYANIRA Ceftriaxone Sodium (Ceftriaxone Sodium 1 Gm Vial) 1 gm IVPUSH Q24H [facility] Glucose (Glucose Gel 15 Gm Gel..Gram.) 15 gm PO Q15M PRN; Protocol PRN Reason: per Hypoglycemia Standing Ord. Hydromorphone HCl (Hydromorphone Hcl 1 Mg/Ml Syringe) 1 mg IVPUSH Q3H PRN; Protocol PRN Reason: Pain, Severe (Pain Scale 7-10) Thiamine HCl 100 mg/ Sodium (Chloride) 101 mls @ 202 mls/hr IV DAILY [facility] Last Infusion: 01/29/24 22:30 Dose: Infused Documented By: DEYANIRA Dextrose/Sodium Chloride (D51/2ns) 1,000 mls @ 80 mls/hr IVCONT .[id number] [facility] Last Admin: 01/29/24 21:36 Dose: 80 mls/hr Documented By: DEYANIRA Metronidazole (Flagyl) 500 mg in 100 mls @ 100 mls/hr IV Q8H [facility] Last Infusion: 01/30/24 06:12 Dose: Infused Documented By: DEYANIRA Dextrose (D10) 250 mls @ 750 mls/hr IV Q15M PRN; Protocol PRN Reason: per Hypoglycemia Standing Ord. Insulin Human Lispro (Insulin Lispro 100 Unit/Ml 3 Ml Vial) 0 unit SUBCUT Q6H [facility]; Protocol Last Admin: 01/30/24 04:59 Dose: Not Given Documented By: DEYANIRA Non-Admin Reason: No Insulin Coverage Labetalol HCl (Labetalol Hcl 100 Mg/20 Ml Vial) 10 mg IVPUSH Q4H PRN PRN Reason: SBP > 170 Ondansetron HCl (Ondansetron Hcl 4 Mg/2 Ml Vial) 4 mg IVPUSH Q6H PRN PRN Reason: Nausea and Vomiting Pantoprazole Sodium (Pantoprazole Sodium 40 Mg/10 Ml Vial) 40 mg IVPUSH DAILY@0630 [facility] Last Admin: 01/30/24 06:13 Dose: 40 mg Documented By: DEYANIRA Sodium Chloride (0.9 % Sodium Chloride Flush 3 Ml Syringe) 3 ml IVFLUSH QSHIFT [facility] Last Admin: 01/29/24 23:28 Dose: Not Given Documented By: DEYANIRA Non-Admin Reason: IV Running Labs 01/30/24 04:58 01/30/24 04:58 Labs: Laboratory Results - last 24 hr 01/29/24 01/29/24 01/29/24 17:46 19:21 23:16 MCV 94.1 MCH 33.8 H MCHC 36.0 RDW 13.2 Plt Count 145 L D MPV 10.3 Immature Gran % (Auto) 0.5 H Neut % (Auto) 85.1 H Lymph % (Auto) 3.8 L [place] % (Auto) 10.1 Eos % (Auto) 0.1 Baso % (Auto) 0.4 Lymph # (Auto) 0.5 L [place] # (Auto) 1.3 H Eos # (Auto) 0.0 Baso # (Auto) 0.1 Abs Immat Gran (auto) 0.07 H Absolute Neuts (auto) 11.3 H Absolute Nucleated RBC 0.000 Nucleated RBC % (auto) 0.0 PT 18.0 H INR 1.5 H Anion Gap 14 Estim Creat Clear Calc 128.9 Estimated GFR > 60 POC Glucose 139 H Random Glucose 143 H Lactic Acid 2.0 Calcium 8.6 Magnesium Total Bilirubin 3.0 H AST 24 ALT 10 Alkaline Phosphatase 135 H Total Protein 6.8 Albumin 3.2 L Amylase 39 Lipase 29 Urine Color Urine Appearance Urine pH Ur Specific [place] Urine Protein Urine Glucose (UA) Urine Ketones Urine Blood Urine Nitrite Ur Leukocyte Esterase Urine RBC Urine WBC Ur Squamous Epith Cells Urine Bacteria Hyaline Casts 01/30/24 01/30/24 01/30/24 04:51 04:58 05:05 MCV 92.8 MCH 34.4 H MCHC 37.1 H RDW 13.2 Plt Count 126 L MPV 9.9 Immature Gran % (Auto) 0.3 Neut % (Auto) 81.7 H Lymph % (Auto) 5.0 L [place] % (Auto) 11.9 H Eos % (Auto) 0.7 Baso % (Auto) 0.4 Lymph # (Auto) 0.6 L [place] # (Auto) 1.4 H Eos # (Auto) 0.1 Baso # (Auto) 0.1 Abs Immat Gran (auto) 0.04 H Absolute Neuts (auto) 9.9 H Absolute Nucleated RBC 0.000 Nucleated RBC % (auto) 0.0 PT 18.1 H INR 1.6 H Anion Gap 13 Estim Creat Clear Calc 142.4 Estimated GFR > 60 POC Glucose 139 H Random Glucose 156 H Lactic Acid Calcium 8.1 L Magnesium 2.0 Total Bilirubin 2.6 H AST 22 ALT 12 Alkaline Phosphatase 121 H Total Protein 6.4 L Albumin 3.0 L Amylase Lipase Urine Color Dark Yellow Urine Appearance Clear Urine pH 6.5 Ur Specific [place] >= 1.030 H Urine Protein Trace Urine Glucose (UA) Negative Urine Ketones Trace Urine Blood Large (3+) H Urine Nitrite Negative Ur Leukocyte Esterase Trace H Urine RBC >20 H Urine WBC 0-5 Ur Squamous Epith Cells 0-2 Urine Bacteria None Seen Hyaline Casts 0-2 Procedures Date of Service Date of Service: 01/30/24 Progress Note: A&P Assessment and plan (1) Cholelithiasis: Status: Acute Assessment and Plan: With inflammatory changes in the gallbladder Patient however with portal hypertension, cirrhosis Bilirubin elevated Would continue with IV antibiotics for now MRCP to rule out CBD stone although unlikely Patient being followed by GI WBC down We will continue to follow Discussed with patient and in the room Time Spent With Patient Time: Total time managing care of this patient today ____ minutes. Quality Stroke Does the patient have a stroke diagnosis?: No VTE Prior VTE?: No VTE Risk Level:: Medical - moderate - high VTE Device Contraindication: N/A - Device Ordered VTE Drug Contraindication: Treatment Not Indicated
[2024-01-30] MEDS: Thiamine HCL 100 MG in 0.9 % Sodium Chloride 100 ML 202 MG IV (09:04)
[2024-01-30 09:05] VITALS: RESP 25
[2024-01-30] MEDS: HYDROmorphone HCl 1 MG/ML SYRINGE IVPUSH ×3 (09:05→19:33)
--- NOTE | 2024-01-30 09:10 | CONS_ITS ---
DATE OF SERVICE: 01/30/2024 REFERRING PHYSICIAN: Lucia Garcia MD REASON FOR CONSULTATION: Abdominal pain, elevated liver enzymes, and abnormal imaging of the abdomen. HISTORY OF PRESENT ILLNESS: The patient is a pleasant 63-year-old man, who was admitted to the hospital after presenting to the emergency room with complaints of abdominal pain and fever. He developed symptoms beginning 3 days before admission when he felt unwell with some generalized abdominal discomfort and mild nausea at home. This worsened 2 days prior to admission and he was seen by his primary care provider. The pain seems somewhat localized to the right upper quadrant and was not associated with nausea or vomiting. He did develop a fever the day before admission. He was seen by his primary care provider and underwent ultrasound imaging which was reviewed. This is interpreted as showing changes consistent with cirrhosis, splenomegaly, ascites, and gallstones. Gallbladder wall thickening was noted to 9 mm. He was referred to this office and developed a fever on the day of admission and was subsequently referred to the emergency room. In the emergency department, evaluation including laboratory studies showed an elevated white blood cell count. He was febrile and had mild elevations of his liver function tests. CT abdominal imaging is reviewed. This is interpreted as showing gallstones and wall thickening with ascites fluid. He has been seen in consultation by General Surgery, Dr. Pina, and is scheduled for further evaluation with MRI imaging and paracentesis. The patient has a history of heavy alcohol usage which is diminished over the past several months because of recent knee surgery. Ultrasound in 2019 showed fatty liver, but he has not previously been diagnosed with cirrhosis. He has had no GI bleeding, jaundice. He has had some abdominal fullness and some lower extremity swelling. PAST MEDICAL HISTORY: 1. Hypertension. 2. Hyperlipidemia. 3. Diabetes mellitus. 4. Gallstones as above. 5. 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 6. Hand and wrist surgery. 7. Colonoscopy 10/14, tubular adenomas, 5 to 7-year followup. CURRENT MEDICATIONS: Current medication list is reviewed in the chart. ALLERGIES: THERE ARE NONE REPORTED. FAMILY HISTORY: This is reviewed with the patient and is noncontributory. SOCIAL HISTORY: There is no current tobacco use. Alcohol use in the past was heavy and has decreased recently. REVIEW OF SYSTEMS: SKIN: No pruritus. HEENT: Negative. CARDIOPULMONARY: He denies shortness of breath or chest pain. GASTROINTESTINAL: As above. GENITOURINARY: Negative. NEUROPSYCHIATRIC: Negative. PHYSICAL EXAMINATION: GENERAL: Shows a pleasant male, lying comfortably in bed. VITAL SIGNS: Reviewed in electronic medical record and are stable. SKIN: Anicteric. HEENT: Shows no scleral icterus. NECK: Without lymphadenopathy or thyromegaly. LUNGS: Clear. HEART: Shows regular rate and rhythm. S1, S2. No murmur. ABDOMEN: Soft without focal masses or tenderness. Bowel sounds are present. No organomegaly is noted. EXTREMITIES: Show trace edema. LABORATORY DATA: Reviewed. IMPRESSION: 1. Abdominal pain. 2. Abnormal imaging of the gallbladder, liver, and abdomen. 3. Chronic alcohol usage. At this time, his fever may be related to underlying cholecystitis or possible SBP. I agree with further evaluation with paracentesis to rule out SBP. I would continue antibiotics. I did discuss with him that no alcohol use is better than any and less is better than more. At some point, he will need followup evaluation with endoscopy because of his underlying liver disease to evaluate for esophageal varices. We discussed this today. Dr. Pina will continue to follow him for his gallbladder issues. MRCP is pending. Thanks for asking me to see him. I will follow him in the hospital with you. MD TRAE Eden/CAITLYN / [phone] MTDD
[2024-01-30] MEDS: Dextrose 5 % and 0.45 % NaCl 1,000 ML 80 ML IVCONT ×2 (09:57→20:02)
[2024-01-30 10:56] VITALS: BMI 33.0
[2024-01-30 11:14] LABS: Glucose, Whole Blood 138 mg/dL (60-115)
[2024-01-30 11:15] VITALS: BP 112/58; PULSE 101; RESP 20; TEMP 37.3; O2SAT 94
[2024-01-30] MEDS: 0.9 % Sodium Chloride Flush 3 ML SYRINGE IVFLUSH (11:16)
--- NOTE | 2024-01-30 12:34 | HO.PM.IMPN ---
Subjective Subjective Date of Service: 01/30/24 Interval History: f/u on abdominal pain, ? cholecystitis pain is better Physical Exam Vital Signs: Vital Signs: Last Vital Signs Temp 99.2 F 01/30/24 11:15 Pulse 101 H 01/30/24 11:15 Resp 20 01/30/24 11:15 BP 112/58 L 01/30/24 11:15 Pulse Ox 94 01/30/24 11:15 O2 Del Method Room Air 01/30/24 11:15 BMI result Body Mass Index 33.0 General: AO X 3, no acute distress Resp: CTA bilateral CVS: S1,S2,RRR GI: +BS, NT, no distention Skin: No rash Neuro: motor grossly intact Psych: appropriate affect Objective Data Active Medications Acetaminophen (Acetaminophen 325 Mg Tablet) 975 mg PO Q6H PRN PRN Reason: Pain, Mild (Pain Scale 1-3), fever or headache Last Admin: 01/29/24 21:33 Dose: 975 mg Documented By: DEYANIRA Ceftriaxone Sodium (Ceftriaxone Sodium 1 Gm Vial) 1 gm IVPUSH Q24H [facility] Glucose (Glucose Gel 15 Gm Gel..Gram.) 15 gm PO Q15M PRN; Protocol PRN Reason: per Hypoglycemia Standing Ord. Hydromorphone HCl (Hydromorphone Hcl 1 Mg/Ml Syringe) 1 mg IVPUSH Q3H PRN; Protocol PRN Reason: Pain, Severe (Pain Scale 7-10) Last Admin: 01/30/24 09:05 Dose: 1 mg Documented By: SUSSY Thiamine HCl 100 mg/ Sodium (Chloride) 101 mls @ 202 mls/hr IV DAILY [facility] Last Infusion: 01/30/24 09:56 Dose: Infused Documented By: SUSSY Dextrose/Sodium Chloride (D51/2ns) 1,000 mls @ 80 mls/hr IVCONT .[id number] [facility] Last Admin: 01/30/24 09:57 Dose: 80 mls/hr Documented By: SUSSY Metronidazole (Flagyl) 500 mg in 100 mls @ 100 mls/hr IV Q8H [facility] Last Infusion: 01/30/24 12:24 Dose: Infused Documented By: LUCRECIA-RIVLA Dextrose (D10) 250 mls @ 750 mls/hr IV Q15M PRN; Protocol PRN Reason: per Hypoglycemia Standing Ord. Insulin Human Lispro (Insulin Lispro 100 Unit/Ml 3 Ml Vial) 0 unit SUBCUT Q6H [facility]; Protocol Last Admin: 01/30/24 11:28 Dose: Not Given Documented By: SHAUNA Non-Admin Reason: No Insulin Coverage Labetalol HCl (Labetalol Hcl 100 Mg/20 Ml Vial) 10 mg IVPUSH Q4H PRN PRN Reason: SBP > 170 Ondansetron HCl (Ondansetron Hcl 4 Mg/2 Ml Vial) 4 mg IVPUSH Q6H PRN PRN Reason: Nausea and Vomiting Pantoprazole Sodium (Pantoprazole Sodium 40 Mg/10 Ml Vial) 40 mg IVPUSH DAILY@0630 [facility] Last Admin: 01/30/24 06:13 Dose: 40 mg Documented By: DEYANIRA Sodium Chloride (0.9 % Sodium Chloride Flush 3 Ml Syringe) 3 ml IVFLUSH QSHIFT [facility] Last Admin: 01/30/24 11:16 Dose: 3 ml Documented By: SHAUNA Labs 01/30/24 04:58 01/30/24 04:58 Labs: Laboratory Results - last 24 hr 01/29/24 01/29/24 01/29/24 17:46 19:21 23:16 MCV 94.1 MCH 33.8 H MCHC 36.0 RDW 13.2 Plt Count 145 L D MPV 10.3 Immature Gran % (Auto) 0.5 H Neut % (Auto) 85.1 H Lymph % (Auto) 3.8 L [place] % (Auto) 10.1 Eos % (Auto) 0.1 Baso % (Auto) 0.4 Lymph # (Auto) 0.5 L [place] # (Auto) 1.3 H Eos # (Auto) 0.0 Baso # (Auto) 0.1 Abs Immat Gran (auto) 0.07 H Absolute Neuts (auto) 11.3 H Absolute Nucleated RBC 0.000 Nucleated RBC % (auto) 0.0 PT 18.0 H INR 1.5 H Anion Gap 14 Estim Creat Clear Calc 128.9 Estimated GFR > 60 POC Glucose 139 H Random Glucose 143 H Lactic Acid 2.0 Calcium 8.6 Magnesium Total Bilirubin 3.0 H AST 24 ALT 10 Alkaline Phosphatase 135 H Total Protein 6.8 Albumin 3.2 L Amylase 39 Lipase 29 Urine Color Urine Appearance Urine pH Ur Specific [place] Urine Protein Urine Glucose (UA) Urine Ketones Urine Blood Urine Nitrite Ur Leukocyte Esterase Urine RBC Urine WBC Ur Squamous Epith Cells Urine Bacteria Hyaline Casts 01/30/24 01/30/24 01/30/24 04:51 04:58 05:05 MCV 92.8 MCH 34.4 H MCHC 37.1 H RDW 13.2 Plt Count 126 L MPV 9.9 Immature Gran % (Auto) 0.3 Neut % (Auto) 81.7 H Lymph % (Auto) 5.0 L [place] % (Auto) 11.9 H Eos % (Auto) 0.7 Baso % (Auto) 0.4 Lymph # (Auto) 0.6 L [place] # (Auto) 1.4 H Eos # (Auto) 0.1 Baso # (Auto) 0.1 Abs Immat Gran (auto) 0.04 H Absolute Neuts (auto) 9.9 H Absolute Nucleated RBC 0.000 Nucleated RBC % (auto) 0.0 PT 18.1 H INR 1.6 H Anion Gap 13 Estim Creat Clear Calc 142.4 Estimated GFR > 60 POC Glucose 139 H Random Glucose 156 H Lactic Acid Calcium 8.1 L Magnesium 2.0 Total Bilirubin 2.6 H AST 22 ALT 12 Alkaline Phosphatase 121 H Total Protein 6.4 L Albumin 3.0 L Amylase Lipase Urine Color Dark Yellow Urine Appearance Clear Urine pH 6.5 Ur Specific [place] >= 1.030 H Urine Protein Trace Urine Glucose (UA) Negative Urine Ketones Trace Urine Blood Large (3+) H Urine Nitrite Negative Ur Leukocyte Esterase Trace H Urine RBC >20 H Urine WBC 0-5 Ur Squamous Epith Cells 0-2 Urine Bacteria None Seen Hyaline Casts 0-2 01/30/24 11:10 MCV MCH MCHC RDW Plt Count MPV Immature Gran % (Auto) Neut % (Auto) Lymph % (Auto) [place] % (Auto) Eos % (Auto) Baso % (Auto) Lymph # (Auto) [place] # (Auto) Eos # (Auto) Baso # (Auto) Abs Immat Gran (auto) Absolute Neuts (auto) Absolute Nucleated RBC Nucleated RBC % (auto) PT INR Anion Gap Estim Creat Clear Calc Estimated GFR POC Glucose 138 H Random Glucose Lactic Acid Calcium Magnesium Total Bilirubin AST ALT Alkaline Phosphatase Total Protein Albumin Amylase Lipase Urine Color Urine Appearance Urine pH Ur Specific [place] Urine Protein Urine Glucose (UA) Urine Ketones Urine Blood Urine Nitrite Ur Leukocyte Esterase Urine RBC Urine WBC Ur Squamous Epith Cells Urine Bacteria Hyaline Casts Assessment and Plan (1) Cholelithiasis: Status: Acute Plan 63 y/o PMHx significan for liver cirrhosis + portal hypertension admitted with: Abdominal pain and fever in the setting of cholelithiasis. No common bile duct dilatation. Acute cholecystitis? SBP? Admit to hospitalist service. -seen by surgery -MRCP -GI following -empiric ceftriaxone and flagyl Heartburn. - Protonix IV infusion. Essential hypertension - Lisinopril on hold due to NPO status. Labetalol IV as needed. Hyperlipidemia. Start statin when able. Elevated bilirubin and alk-phos, normal transaminases. Likely secondary to liver disease. Continue to monitor LFTs. Hyponatremia. Likely 3rd spacing. Hx of diabetes mellitus. Not on meds. BG checks q 6h while NPO. Thrombocytopenia and elevated INR. Due to liver disease; no evidence of acute bleeding. Continue to monitor platelets, hemoglobin and INR. Hx of alcohol abuse?, discrepancy between what patient and says about alcohol consumption. [facility] protocol. Thiamine IV. Folic acid, multivitamin and magnesium orally when able. GI prophylaxis: Protonix IV DVT prophylaxis: SCDs (thrombocytopenia), INR is elevated Code status: Full Quality Stroke Does the patient have a stroke diagnosis?: No VTE Prior VTE?: No VTE Risk Level:: Medical - moderate - high VTE Device Contraindication: N/A - Device Ordered VTE Drug Contraindication: Treatment Not Indicated
--- NOTE | 2024-01-30 13:31 | PM.PROC ---
Brief Operative Note Date of procedure: 01/30/24 Pre-op diagnosis: Ascites, abdominal pain, etoh cirrhosis Post-op diagnosis: same Procedure: US diagnostic paracentesis Trace perihepatic ascites present. 20 cc yellow fluid aspirated and sent for analysis. No immediate complications.
[2024-01-30] MEDS: Lidocaine HCl 1 % 20 ML VIAL 5 ML SUBCUT (13:48)
[2024-01-30 14:16] LABS: MN% 55.1 %; PMN% 44.9 %; WBC Peritoneal Fluid 3.066 X10*3/uL
[2024-01-30 14:18] LABS: RBC Peritoneal Fluid < 0.002 X10*6/uL
--- NOTE | 2024-01-30 14:51 | PM.EVENT ---
Event Note Date of Service: 01/31/24 Event Note: Seen on afternoon rounds Appears a lot more comfortable Looks well He said he just had paracentesis Abdomen is soft and benign although with some mild tenderness on the right side Continue IV antibiotics He may benefit from IR cholecystostomy tube drainage depending on how well he improves IV antibiotics I have given IR a heads up He looks well overall and does not look septic He is waiting for an MRCP although it was likely that this elevated bilirubin is from is chronic liver disease Time Spent With Patient Time: Total time managing care of this patient today ____ minutes.
[2024-01-30 14:56] LABS: BF Shift QC OK YES; Lymphocyte Peritoneal Fl 8 %; Man Diluent Bkgrd OK YES; Neutrophils Peritoneal Fluid 38 %; Other Peritioneal Fl 54 %
[2024-01-30] MEDS: ondansetron HCL 4 MG/2 ML VIAL IVPUSH (14:58)
[2024-01-30 15:33] LABS: Glucose, Whole Blood 137 mg/dL (60-115)
--- NOTE | 2024-01-30 15:39 | HO.WOUND ---
Wound Consult: Initial 63yr old?male admitted to [facility] on 01/29/24 20:21 - See progress notes and H&P for detailed history.? Wound consult placed for right 5th toe maceration.? Patient agreeable to assessment. Patient reports he was in ED for sometime and did not take his shoes off and reports his feet were sweating. Direct care nurse noted that there was no open wound noted but maceration noted. reports interdry was woven between toes. The patients right toes were assessed - no open wound noted and less maceration noted. Recommend continuing with Interdry between toes to translocate moisture aware from webspace. Recommendations: 1. Right 5th Toe - Routine cleansing, dry well. Weave strip of Interdry between toes to translocate moisture. Change every 5 days or when saturated. Re-consult wound care Nurse for wound deterioration or wound changes.
[2024-01-30 15:41] VITALS: BP 124/71; PULSE 97; RESP 14; TEMP 36.9; O2SAT 95
--- NOTE | 2024-01-30 15:46 | MHC.CM.PN ---
PATIENT LIVES IN A HOME W/ . FUNCTIONALLY INDEPENDENT. DENIES USE OF DME OR SERVICES. PCP VANNESSA MONTERO MD REPORTS HE HAS AN HCP NAMING HIS , [facility], [facility]. COPY REQUESTED. DP: GOAL IS HOME SELF CARE. DO NOT ANTICIPATE THE NEED FOR SERVICES. TO TRANSPORT. CM WILL CONTINUE TO FOLLOW.
[2024-01-30] MEDS: cefTRIAXone sodium 1 GM VIAL IVPUSH (18:18)
[2024-01-30 20:00] VITALS: BP 139/74; PULSE 103; RESP 14; TEMP 36.8; O2SAT 94
[2024-01-30 20:11] LABS: Glucose, Whole Blood 165 mg/dL (60-115)
[2024-01-30] MEDS: Phytonadione (Vit K1) 10 MG in 0.9 % Sodium Chloride 50 ML 51 MG IV (21:01)
[2024-01-30 23:27] LABS: Glucose, Whole Blood 126 mg/dL (60-115)
[2024-01-31 01:12] LABS: Lipase 186 U/L (8-78)
[2024-01-31 03:33] VITALS: BP 129/59; PULSE 98; RESP 16; TEMP 37.4; O2SAT 94
[2024-01-31] MEDS: HYDROmorphone HCl 1 MG/ML SYRINGE IVPUSH ×3 (03:38→23:41)
[2024-01-31] MEDS: metroNIDAZOLE/NS 500 MG/100 ML PIGGYBACK 100 MG IV ×3 (03:45→18:23)
[2024-01-31 05:17] LABS: Glucose, Whole Blood 144 mg/dL (60-115)
[2024-01-31] MEDS: Pantoprazole Sodium 40 MG/10 ML VIAL IVPUSH (05:39)
--- NOTE | 2024-01-31 06:21 | PC.NURSE ---
received text from short stay surgery regarding taking this patient for lap shay this morning. I did not get this in report and last MD note doesn't specify this procedure. Patient was not made NPO, but was on clear liq diet, and stated he sipped about 8oz of water overnight. Short stay is contacting DR Pina to determine if procedure will take place.
[2024-01-31 07:44] LABS: INTERNATIONAL NORM RATIO 1.6 (0.9-1.1); Prothrombin Time 19.1 SEC (10.9-12.4)
[2024-01-31] MEDS: Dextrose 5 % and 0.45 % NaCl 1,000 ML 80 ML IVCONT (07:50)
[2024-01-31] MEDS: 0.9 % Sodium Chloride Flush 3 ML SYRINGE IVFLUSH ×2 (07:50→23:22)
[2024-01-31] MEDS: Thiamine HCL 100 MG in 0.9 % Sodium Chloride 100 ML 202 MG IV (07:50)
[2024-01-31 07:53] VITALS: BP 109/68; PULSE 93; RESP 14; TEMP 36.8; O2SAT 94
[2024-01-31 07:55] LABS: Alanine Aminotransferase 11 U/L (0-40); Albumin Level 2.8 g/dL (3.5-5.0); Alkaline Phosphatase 114 U/L (39-117); Aspartate Amino Transferase 22 U/L (5-37); Bilirubin Direct 1.2 mg/dL (0.0-0.5); Bilirubin Total 2.4 mg/dL (0.0-1.0)
--- NOTE | 2024-01-31 08:14 | P.PNGS_ITS ---
Subjective Subjective Date of Service: 02/01/24 Interval history: Feels much better Asking for food No nausea or vomiting Pain much improved No fever Physical Exam 2 Vital Signs: Vital Signs: Last Vital Signs Temp 98.2 F 01/31/24 07:53 Pulse 93 01/31/24 07:53 Resp 14 01/31/24 07:53 BP 109/68 01/31/24 07:53 Pulse Ox 94 01/31/24 07:53 O2 Del Method Room Air 01/31/24 07:53 BMI result Body Mass Index 33.0 Const: General: comfortable and no acute distress Resp: Effort & Inspection: normal respiratory effort Cardio: Rate: regular rate GI: Other: Much less tender Palpation (GI): Soft to palpation, not firm and no guarding Objective Data Active Medications Acetaminophen (Acetaminophen 325 Mg Tablet) 975 mg PO Q6H PRN PRN Reason: Pain, Mild (Pain Scale 1-3), fever or headache Last Admin: 01/29/24 21:33 Dose: 975 mg Documented By: DEYANIRA Ceftriaxone Sodium (Ceftriaxone Sodium 1 Gm Vial) 1 gm IVPUSH Q24H [facility] Last Admin: 01/30/24 18:18 Dose: 1 gm Documented By: LUCRECIA-GALLOLA Glucose (Glucose Gel 15 Gm Gel..Gram.) 15 gm PO Q15M PRN; Protocol PRN Reason: per Hypoglycemia Standing Ord. Hydromorphone HCl (Hydromorphone Hcl 1 Mg/Ml Syringe) 1 mg IVPUSH Q3H PRN; Protocol PRN Reason: Pain, Severe (Pain Scale 7-10) Last Admin: 01/31/24 03:38 Dose: 1 mg Documented By: DAINA Thiamine HCl 100 mg/ Sodium (Chloride) 101 mls @ 202 mls/hr IV DAILY [facility] Last Admin: 01/31/24 07:50 Dose: 202 mls/hr Documented By: JALEEL Dextrose/Sodium Chloride (D51/2ns) 1,000 mls @ 80 mls/hr IVCONT .[id number] [facility] Last Admin: 01/31/24 07:50 Dose: 80 mls/hr Documented By: JALEEL Metronidazole (Flagyl) 500 mg in 100 mls @ 100 mls/hr IV Q8H [facility] Last Infusion: 01/31/24 04:50 Dose: Infused Documented By: DAINA Dextrose (D10) 250 mls @ 750 mls/hr IV Q15M PRN; Protocol PRN Reason: per Hypoglycemia Standing Ord. Insulin Human Lispro (Insulin Lispro 100 Unit/Ml 3 Ml Vial) 0 unit SUBCUT Q6H [facility]; Protocol Last Admin: 01/31/24 05:29 Dose: Not Given Documented By: DAINA Non-Admin Reason: No Insulin Coverage Labetalol HCl (Labetalol Hcl 100 Mg/20 Ml Vial) 10 mg IVPUSH Q4H PRN PRN Reason: SBP > 170 Ondansetron HCl (Ondansetron Hcl 4 Mg/2 Ml Vial) 4 mg IVPUSH Q6H PRN PRN Reason: Nausea and Vomiting Last Admin: 01/30/24 14:58 Dose: 4 mg Documented By: SHAUNA Pantoprazole Sodium (Pantoprazole Sodium 40 Mg/10 Ml Vial) 40 mg IVPUSH DAILY@0630 [facility] Last Admin: 01/31/24 05:39 Dose: 40 mg Documented By: DAINA Sodium Chloride (0.9 % Sodium Chloride Flush 3 Ml Syringe) 3 ml IVFLUSH QSHIFT [facility] Last Admin: 01/31/24 07:50 Dose: 3 ml Documented By: JALEEL Labs 02/01/24 05:27 02/01/24 05:27 Labs: Laboratory Results - last 24 hr 01/30/24 01/30/24 01/30/24 04:58 11:10 13:52 PT INR POC Glucose 138 H Total Bilirubin Direct Bilirubin AST ALT Alkaline Phosphatase Total Protein Albumin Lipase 186 H Peritoneal WBC 3.066 Peritoneal RBC < 0.002 Periton Neutrophils 38 Periton Lymphocytes 8 Peritoneal Other Cells 54 01/30/24 01/30/24 01/30/24 15:25 20:06 23:21 PT INR POC Glucose 137 H 165 H 126 H Total Bilirubin Direct Bilirubin AST ALT Alkaline Phosphatase Total Protein Albumin Lipase Peritoneal WBC Peritoneal RBC Periton Neutrophils Periton Lymphocytes Peritoneal Other Cells 01/31/24 01/31/24 05:13 05:59 PT 19.1 H INR 1.6 H POC Glucose 144 H Total Bilirubin 2.4 H Direct Bilirubin 1.2 H AST 22 ALT 11 Alkaline Phosphatase 114 Total Protein 6.0 L Albumin 2.8 L Lipase Peritoneal WBC Peritoneal RBC Periton Neutrophils Periton Lymphocytes Peritoneal Other Cells Microbiology Microbiology Results: Microbiology 01/29/24 19:17 Blood Culture - Preliminary Blood - Venous No growth after 24 hours. 01/29/24 19:21 Blood Culture - Preliminary Blood - Venous No growth after 24 hours. 01/30/24 13:52 Gram Stain - Final Ascites Fluid Procedures Date of Service Date of Service: 02/01/24 Progress Note: A&P Assessment and plan (1) Acute cholecystitis: Status: Acute Assessment and Plan: With note of chronic liver disease, cirrhosis and portal hypertension Much improved with IV antibiotics Continue non-surgical management for now Possibly try to advance diet later on today Follow LFTs Looks well and comfortable Patient understands the plan Discussed with GI - MRCP does not show any CBD stone Time Spent With Patient Time: Total time managing care of this patient today ____ minutes. Quality Stroke Does the patient have a stroke diagnosis?: No VTE Prior VTE?: No VTE Risk Level:: Medical - moderate - high VTE Device Contraindication: N/A - Device Ordered VTE Drug Contraindication: Treatment Not Indicated
--- NOTE | 2024-01-31 08:15 | P.PNGI_ITS ---
Subjective Subjective Date of Service: 01/31/24 Interval History: feels better tolerating clear liquids Critical Care Time (minutes): 2 Physical Exam 2 Vital Signs: Vital Signs: Last Vital Signs Temp 98.2 F 01/31/24 07:53 Pulse 93 01/31/24 07:53 Resp 14 01/31/24 07:53 BP 109/68 01/31/24 07:53 Pulse Ox 94 01/31/24 07:53 O2 Del Method Room Air 01/31/24 07:53 BMI result Body Mass Index 33.0 Const: Other: appears comfortable HEENT: Other: nonicteric sclera GI: Other: abdomen is soft and nontender Objective Data Labs 01/30/24 04:58 01/30/24 04:58 Microbiology Microbiology Results: Microbiology 01/29/24 19:17 Blood - Venous Blood Culture - Preliminary No growth after 24 hours. 01/29/24 19:21 Blood - Venous Blood Culture - Preliminary No growth after 24 hours. 01/30/24 13:52 Ascites Fluid Gram Stain - Final Procedures Date of Service Date of Service: 01/31/24 Progress Note: A&P Assessment and plan (1) Gallstones: Status: Acute Assessment and Plan: MRI reviewed, no cbd pathology lfts improving peritoneal fluid wbc 3,000, c/w acute infectious process, not clear that this is SBP given inflammatory gallbladder inflammatory changes. Continue Abx followup culture results advance diet per surgical recommendations. Time Spent With Patient Time: Total time managing care of this patient today ____ minutes. Quality Stroke Does the patient have a stroke diagnosis?: No VTE Prior VTE?: No VTE Risk Level:: Medical - moderate - high VTE Device Contraindication: N/A - Device Ordered VTE Drug Contraindication: Treatment Not Indicated
--- NOTE | 2024-01-31 11:39 | HO.PM.IMPN ---
Subjective Subjective Date of Service: 01/31/24 Interval History: follow up on cholelithiasis interval history: he is feeling better, labs improving Physical Exam Vital Signs: Vital Signs: Last Vital Signs Temp 98.2 F 01/31/24 07:53 Pulse 93 01/31/24 07:53 Resp 14 01/31/24 07:53 BP 109/68 01/31/24 07:53 Pulse Ox 94 01/31/24 07:53 O2 Del Method Room Air 01/31/24 07:53 BMI result Body Mass Index 33.0 General: AO X 3, no acute distress Resp: CTA bilateral CVS: S1,S2,RRR GI: +BS, NT, no distention Skin: No rash Neuro: motor grossly intact Psych: appropriate affect Objective Data Active Medications Acetaminophen (Acetaminophen 325 Mg Tablet) 975 mg PO Q6H PRN PRN Reason: Pain, Mild (Pain Scale 1-3), fever or headache Last Admin: 01/29/24 21:33 Dose: 975 mg Documented By: DEYANIRA Ceftriaxone Sodium (Ceftriaxone Sodium 1 Gm Vial) 1 gm IVPUSH Q24H [facility] Last Admin: 01/30/24 18:18 Dose: 1 gm Documented By: SHAUNA Glucose (Glucose Gel 15 Gm Gel..Gram.) 15 gm PO Q15M PRN; Protocol PRN Reason: per Hypoglycemia Standing Ord. Hydromorphone HCl (Hydromorphone Hcl 1 Mg/Ml Syringe) 1 mg IVPUSH Q3H PRN; Protocol PRN Reason: Pain, Severe (Pain Scale 7-10) Last Admin: 01/31/24 11:16 Dose: 1 mg Documented By: JALEEL Thiamine HCl 100 mg/ Sodium (Chloride) 101 mls @ 202 mls/hr IV DAILY [facility] Last Infusion: 01/31/24 08:22 Dose: Infused Documented By: JALEEL Dextrose/Sodium Chloride (D51/2ns) 1,000 mls @ 80 mls/hr IVCONT .[id number] [facility] Last Admin: 01/31/24 07:50 Dose: 80 mls/hr Documented By: JALEEL Metronidazole (Flagyl) 500 mg in 100 mls @ 100 mls/hr IV Q8H [facility] Last Admin: 01/31/24 11:16 Dose: 100 mls/hr Documented By: JALEEL Dextrose (D10) 250 mls @ 750 mls/hr IV Q15M PRN; Protocol PRN Reason: per Hypoglycemia Standing Ord. Insulin Human Lispro (Insulin Lispro 100 Unit/Ml 3 Ml Vial) 0 unit SUBCUT Q6H [facility]; Protocol Last Admin: 01/31/24 05:29 Dose: Not Given Documented By: DAINA Non-Admin Reason: No Insulin Coverage Labetalol HCl (Labetalol Hcl 100 Mg/20 Ml Vial) 10 mg IVPUSH Q4H PRN PRN Reason: SBP > 170 Ondansetron HCl (Ondansetron Hcl 4 Mg/2 Ml Vial) 4 mg IVPUSH Q6H PRN PRN Reason: Nausea and Vomiting Last Admin: 01/30/24 14:58 Dose: 4 mg Documented By: SHAUNA Pantoprazole Sodium (Pantoprazole Sodium 40 Mg/10 Ml Vial) 40 mg IVPUSH DAILY@0630 [facility] Last Admin: 01/31/24 05:39 Dose: 40 mg Documented By: DAINA Sodium Chloride (0.9 % Sodium Chloride Flush 3 Ml Syringe) 3 ml IVFLUSH QSHIFT [facility] Last Admin: 01/31/24 07:50 Dose: 3 ml Documented By: JALEEL Labs 01/30/24 04:58 01/30/24 04:58 Labs: Laboratory Results - last 24 hr 01/30/24 01/30/24 01/30/24 04:58 13:52 15:25 PT INR POC Glucose 137 H Total Bilirubin Direct Bilirubin AST ALT Alkaline Phosphatase Total Protein Albumin Lipase 186 H Peritoneal WBC 3.066 Peritoneal RBC < 0.002 Periton Neutrophils 38 Periton Lymphocytes 8 Peritoneal Other Cells 54 01/30/24 01/30/24 01/31/24 20:06 23:21 05:13 PT INR POC Glucose 165 H 126 H 144 H Total Bilirubin Direct Bilirubin AST ALT Alkaline Phosphatase Total Protein Albumin Lipase Peritoneal WBC Peritoneal RBC Periton Neutrophils Periton Lymphocytes Peritoneal Other Cells 01/31/24 05:59 PT 19.1 H INR 1.6 H POC Glucose Total Bilirubin 2.4 H Direct Bilirubin 1.2 H AST 22 ALT 11 Alkaline Phosphatase 114 Total Protein 6.0 L Albumin 2.8 L Lipase Peritoneal WBC Peritoneal RBC Periton Neutrophils Periton Lymphocytes Peritoneal Other Cells Microbiology Microbiology Results: Microbiology 01/30/24 13:52 Gram Stain - Final Ascites Fluid Anaerobic Culture - Preliminary No growth to date. Body Fluid Culture - Preliminary No growth to date. 01/29/24 19:17 Blood Culture - Preliminary Blood - Venous No growth after 24 hours. 01/29/24 19:21 Blood Culture - Preliminary Blood - Venous No growth after 24 hours. Assessment and Plan (1) Cholelithiasis: Status: Acute Plan 63 y/o PMHx significan for liver cirrhosis + portal hypertension admitted with: Abdominal pain and fever in the setting of cholelithiasis. No common bile duct dilatation. Acute cholecystitis? SBP? clinically improving. -seen by surgery -MRCP 01/29 showed no cbd stone -GI following -empiric ceftriaxone and flagyl -intervention being avoided in light of cirrhosis and PHTN -advance diet Heartburn. - PPI Essential hypertension - Lisinopril on hold due to NPO status. Labetalol IV as needed. Hyperlipidemia. hold statin Elevated bilirubin and alk-phos, normal transaminases. Likely secondary to liver disease. Continue to monitor LFTs. Hyponatremia. Likely 3rd spacing. Hx of diabetes mellitus. Not on meds. BG checks q 6h while NPO. SSI Thrombocytopenia and elevated INR. Due to liver disease; no evidence of acute bleeding. Continue to monitor platelets, hemoglobin and INR. Hx of alcohol abuse?, discrepancy between what patient and says about alcohol consumption. [facility] protocol. Thiamine IV. Folic acid, multivitamin and magnesium orally when able. GI prophylaxis: Protonix IV DVT prophylaxis: SCDs (thrombocytopenia), INR is elevated Code status: Full Quality Stroke Does the patient have a stroke diagnosis?: No VTE Prior VTE?: No VTE Risk Level:: Medical - moderate - high VTE Device Contraindication: N/A - Device Ordered VTE Drug Contraindication: Treatment Not Indicated
[2024-01-31 12:06] LABS: Glucose, Whole Blood 143 mg/dL (60-115)
[2024-01-31 15:30] VITALS: BP 114/69; PULSE 91; RESP 16; TEMP 36.8; O2SAT 94
[2024-01-31] MEDS: cefTRIAXone sodium 1 GM VIAL IVPUSH (18:23)
[2024-01-31 18:24] LABS: Glucose, Whole Blood 170 mg/dL (60-115)
--- NOTE | 2024-01-31 19:37 | PC.NURSE ---
Pt made NPO after midnight in case IR drain will be placed.
[2024-01-31 19:42] VITALS: BP 118/63; PULSE 98; RESP 18; TEMP 38.3; O2SAT 94
[2024-01-31 20:36] VITALS: TEMP 37.4
[2024-01-31 23:31] LABS: Glucose, Whole Blood 136 mg/dL (60-115)
[2024-01-31 23:36] VITALS: BP 116/62; PULSE 90; RESP 18; TEMP 36.9; O2SAT 95
[2024-02-01] VITALS (7 sets, daily range): BP systolic 103–119; BP diastolic 57–66; PULSE 80–100; RESP 16–18; TEMP 37.2–38.4; O2SAT 93–95
[2024-02-01] MEDS: metroNIDAZOLE/NS 500 MG/100 ML PIGGYBACK 100 MG IV ×3 (03:12→18:38)
[2024-02-01 06:10] LABS: Glucose, Whole Blood 129 mg/dL (60-115)
[2024-02-01 06:28] LABS: Alanine Aminotransferase < 6 U/L (0-40); Albumin Level 2.6 g/dL (3.5-5.0); Alkaline Phosphatase 101 U/L (39-117); Anion Gap 12 (12-20); Aspartate Amino Transferase 19 U/L (5-37); Bilirubin Direct 0.9 mg/dL (0.0-0.5); Bilirubin Total 1.8 mg/dL (0.0-1.0); Blood Urea Nitrogen 7 mg/dL (9-16); Calcium 8.1 mg/dL (8.4-10.2); Carbon Dioxide 20 mmol/L (22-29); Chloride 106 mmol/L (96-108); Creatinine Clr Calc Pharmacy 138.8; Estimated Glomerular Filt Rate > 60; Glucose Random 136 mg/dL (60-115); Potassium 3.3 mmol/L (3.3-5.1); Sodium 135 mmol/L (135-145); Total Protein 5.7 g/dL (6.5-8.0)
[2024-02-01 06:41] LABS: Hematocrit 32.3 % (42.0-52.0); Hemoglobin 11.9 g/dl (14.0-18.0); Mean Corpuscular HGB Conc 36.8 g/dl (31.0-36.0); Mean Corpuscular Hemoglobin 34.2 pg (27.0-33.0); Mean Corpuscular Volume 92.8 fL (80.0-98.0); Mean Platelet Volume 10.4 fL (9.4-12.4); Platelet Count 128 X10*3/uL (160-400); Red Blood Count 3.48 X10*6/uL (4.60-5.80); Red Cell Distribution Width 12.9 % (11.0-16.0); White Blood Count 9.6 X10*3/uL (4.8-10.8)
[2024-02-01] MEDS: oxyCODONE HCl Immed Release 5 MG TABLET PO ×2 (07:09→12:37)
[2024-02-01] MEDS: Omeprazole 20 MG CAPSULE.DR PO (07:09)
[2024-02-01] MEDS: Thiamine HCL 100 MG in 0.9 % Sodium Chloride 100 ML 202 MG IV (07:10)
[2024-02-01 07:29] LABS: Glucose, Whole Blood 143 mg/dL (60-115)
--- NOTE | 2024-02-01 08:44 | PM.PNGS ---
Subjective Subjective Date of Service: 02/01/24 Interval history: Feels better Much less pain - says this is a 1.5/10 Wants to eat Review of vital signs show he had low-grade temperature this morning Physical Exam Vital Signs: Vital Signs: Last Vital Signs Temp 100.6 F H 02/01/24 07:31 Pulse 84 02/01/24 07:31 Resp 16 02/01/24 07:31 BP 119/66 02/01/24 07:31 Pulse Ox 94 02/01/24 07:31 O2 Del Method Room Air 02/01/24 07:31 O2 Flow Rate 94 01/31/24 19:42 BMI result Body Mass Index 33.0 Const: Other: Looks well General: comfortable and no acute distress Resp: Effort & Inspection: normal respiratory effort Cardio: Rate: regular rate GI: Palpation (GI): Soft to palpation, not firm, nontender and no guarding Objective Data Active Medications Acetaminophen (Acetaminophen 325 Mg Tablet) 975 mg PO Q6H PRN PRN Reason: Pain, Mild (Pain Scale 1-3), fever or headache Last Admin: 01/29/24 21:33 Dose: 975 mg Documented By: DEYANIRA Ceftriaxone Sodium (Ceftriaxone Sodium 1 Gm Vial) 1 gm IVPUSH Q24H [facility] Last Admin: 01/31/24 18:23 Dose: 1 gm Documented By: JALEEL Glucose (Glucose Gel 15 Gm Gel..Gram.) 15 gm PO Q15M PRN; Protocol PRN Reason: per Hypoglycemia Standing Ord. Hydromorphone HCl (Hydromorphone Hcl 1 Mg/Ml Syringe) 1 mg IVPUSH Q3H PRN; Protocol PRN Reason: Pain, Severe (Pain Scale 7-10) Last Admin: 01/31/24 23:41 Dose: 1 mg Documented By: CAMMIE Thiamine HCl 100 mg/ Sodium (Chloride) 101 mls @ 202 mls/hr IV DAILY [facility] Last Infusion: 02/01/24 07:47 Dose: Infused Documented By: ITZ Metronidazole (Flagyl) 500 mg in 100 mls @ 100 mls/hr IV Q8H [facility] Last Infusion: 02/01/24 04:13 Dose: Infused Documented By: CAMMIE Dextrose (D10) 250 mls @ 750 mls/hr IV Q15M PRN; Protocol PRN Reason: per Hypoglycemia Standing Ord. Insulin Human Lispro (Insulin Lispro 100 Unit/Ml 3 Ml Vial) 0 unit SUBCUT Q6H [facility]; Protocol Last Admin: 02/01/24 06:15 Dose: Not Given Documented By: ITZ Non-Admin Reason: No Insulin Coverage Labetalol HCl (Labetalol Hcl 100 Mg/20 Ml Vial) 10 mg IVPUSH Q4H PRN PRN Reason: SBP > 170 Omeprazole (Omeprazole 20 Mg Capsule.Dr) 20 mg PO DAILY@0630 [facility] Last Admin: 02/01/24 07:09 Dose: 20 mg Documented By: ITZ Ondansetron HCl (Ondansetron Hcl 4 Mg/2 Ml Vial) 4 mg IVPUSH Q6H PRN PRN Reason: Nausea and Vomiting Last Admin: 01/30/24 14:58 Dose: 4 mg Documented By: LUCRECIA-RIVZAYNAB Oxycodone HCl (Oxycodone Hcl Immed Release 5 Mg Tablet) 5 mg PO Q6H PRN PRN Reason: Pain, Moderate(Pain Scale 4-6) Last Admin: 02/01/24 07:09 Dose: 5 mg Documented By: ITZ Sodium Chloride (0.9 % Sodium Chloride Flush 3 Ml Syringe) [facility] Admin: 02/01/24 07:11 Dose: Not Given Documented By: ITZ Non-Admin Reason: IV Running Labs 02/01/24 05:27 02/01/24 05:27 Labs: Laboratory Results - last 24 hr 01/31/24 01/31/24 01/31/24 12:02 18:17 23:18 MCV MCH MCHC RDW Plt Count MPV Absolute Nucleated RBC Nucleated RBC % (auto) Anion Gap Estim Creat Clear Calc Estimated GFR POC Glucose 143 H 170 H 136 H Random Glucose Calcium Total Bilirubin Direct Bilirubin AST ALT Alkaline Phosphatase Total Protein Albumin 02/01/24 02/01/24 02/01/24 05:27 06:05 07:25 MCV 92.8 MCH 34.2 H MCHC 36.8 H RDW 12.9 Plt Count 128 L MPV 10.4 Absolute Nucleated RBC 0.000 Nucleated RBC % (auto) 0.0 Anion Gap 12 Estim Creat Clear Calc 138.8 Estimated GFR > 60 POC Glucose 129 H 143 H Random Glucose 136 H Calcium 8.1 L Total Bilirubin 1.8 H Direct Bilirubin 0.9 H AST 19 ALT < 6 Alkaline Phosphatase 101 Total Protein 5.7 L Albumin 2.6 L Microbiology Microbiology Results: Microbiology 01/30/24 13:52 Gram Stain - Final Ascites Fluid Anaerobic Culture - Preliminary No growth to date. Body Fluid Culture - Final No growth after 2 days 01/29/24 19:17 Blood Culture - Preliminary Blood - Venous No growth after 48 hours. 01/29/24 19:21 Blood Culture - Preliminary Blood - Venous No growth after 48 hours. Procedures Date of Service Date of Service: 02/01/24 Progress Note: A&P Assessment and plan (1) Acute cholecystitis: Status: Acute Assessment and Plan: Looks well Symptoms much improved Bilirubin and WBC down However, had low-grade temps this morning We will proceed with IR cholecystostomy tube Discussed with IR Continue IV antibiotics Discussed with and patient at bedside Time Spent With Patient Time: Total time managing care of this patient today ____ minutes. Quality Stroke Does the patient have a stroke diagnosis?: No VTE Prior VTE?: No VTE Risk Level:: Medical - moderate - high VTE Device Contraindication: N/A - Device Ordered VTE Drug Contraindication: Treatment Not Indicated
[2024-02-01 11:19] LABS: Glucose, Whole Blood 149 mg/dL (60-115)
--- NOTE | 2024-02-01 11:33 | MHC.CM.PN ---
Per MD rounds, patient not medically cleared for dc. Plan for shay tube today. May require SN on dc. CM will continue to follow.
--- NOTE | 2024-02-01 12:34 | P.PNIM_ITS ---
Subjective Subjective Date of Service: 02/01/24 Interval History: follow up on cholelithiasis interval history: he is feeling better, labs improving, but low grade fever this morning Physical Exam 2 Vital Signs: Vital Signs: Last Vital Signs Temp 99.6 F 02/01/24 11:33 Pulse 84 02/01/24 07:31 Resp 16 02/01/24 07:31 BP 119/66 02/01/24 07:31 Pulse Ox 94 02/01/24 07:31 O2 Del Method Room Air 02/01/24 07:31 O2 Flow Rate 94 01/31/24 19:42 BMI result Body Mass Index 33.0 General: AO X 3, no acute distress Resp: CTA bilateral CVS: S1,S2,RRR GI: +BS, NT, no distention Skin: No rash Neuro: motor grossly intact Psych: appropriate affect Objective Data Active Medications Acetaminophen (Acetaminophen 325 Mg Tablet) 975 mg PO Q6H PRN PRN Reason: Pain, Mild (Pain Scale 1-3), fever or headache Last Admin: 01/29/24 21:33 Dose: 975 mg Documented By: DEYANIRA Ceftriaxone Sodium (Ceftriaxone Sodium 1 Gm Vial) 1 gm IVPUSH Q24H [facility] Last Admin: 01/31/24 18:23 Dose: 1 gm Documented By: JALEEL Glucose (Glucose Gel 15 Gm Gel..Gram.) 15 gm PO Q15M PRN; Protocol PRN Reason: per Hypoglycemia Standing Ord. Hydromorphone HCl (Hydromorphone Hcl 1 Mg/Ml Syringe) 1 mg IVPUSH Q3H PRN; Protocol PRN Reason: Pain, Severe (Pain Scale 7-10) Last Admin: 01/31/24 23:41 Dose: 1 mg Documented By: CAMMIE Thiamine HCl 100 mg/ Sodium (Chloride) 101 mls @ 202 mls/hr IV DAILY [facility] Last Infusion: 02/01/24 07:47 Dose: Infused Documented By: ITZ Metronidazole (Flagyl) 500 mg in 100 mls @ 100 mls/hr IV Q8H [facility] Last Admin: 02/01/24 10:58 Dose: 100 mls/hr Documented By: ITZ Dextrose (D10) 250 mls @ 750 mls/hr IV Q15M PRN; Protocol PRN Reason: per Hypoglycemia Standing Ord. Insulin Human Lispro (Insulin Lispro 100 Unit/Ml 3 Ml Vial) 0 unit SUBCUT Q6H [facility]; Protocol Last Admin: 02/01/24 11:29 Dose: Not Given Documented By: ITZ Non-Admin Reason: No Insulin Coverage Labetalol HCl (Labetalol Hcl 100 Mg/20 Ml Vial) 10 mg IVPUSH Q4H PRN PRN Reason: SBP > 170 Omeprazole (Omeprazole 20 Mg Capsule.Dr) 20 mg PO DAILY@0630 [facility] Last Admin: 02/01/24 07:09 Dose: 20 mg Documented By: ITZ Ondansetron HCl (Ondansetron Hcl 4 Mg/2 Ml Vial) 4 mg IVPUSH Q6H PRN PRN Reason: Nausea and Vomiting Last Admin: 01/30/24 14:58 Dose: 4 mg Documented By: SHAUNA Oxycodone HCl (Oxycodone Hcl Immed Release 5 Mg Tablet) 5 mg PO Q6H PRN PRN Reason: Pain, Moderate(Pain Scale 4-6) Last Admin: 02/01/24 07:09 Dose: 5 mg Documented By: ITZ Sodium Chloride (0.9 % Sodium Chloride Flush 3 Ml Syringe) 3 ml IVFLUSH QSHIFT [facility] Last Admin: 02/01/24 07:11 Dose: Not Given Documented By: ITZ Non-Admin Reason: IV Running Labs 02/01/24 05:27 02/01/24 05:27 Labs: Laboratory Results - last 24 hr 01/31/24 01/31/24 02/01/24 18:17 23:18 05:27 MCV 92.8 MCH 34.2 H MCHC 36.8 H RDW 12.9 Plt Count 128 L MPV 10.4 Absolute Nucleated RBC 0.000 Nucleated RBC % (auto) 0.0 Anion Gap 12 Estim Creat Clear Calc 138.8 Estimated GFR > 60 POC Glucose 170 H 136 H Random Glucose 136 H Calcium 8.1 L Total Bilirubin 1.8 H Direct Bilirubin 0.9 H AST 19 ALT < 6 Alkaline Phosphatase 101 Total Protein 5.7 L Albumin 2.6 L 02/01/24 02/01/24 02/01/24 06:05 07:25 11:15 MCV MCH MCHC RDW Plt Count MPV Absolute Nucleated RBC Nucleated RBC % (auto) Anion Gap Estim Creat Clear Calc Estimated GFR POC Glucose 129 H 143 H 149 H Random Glucose Calcium Total Bilirubin Direct Bilirubin AST ALT Alkaline Phosphatase Total Protein Albumin Microbiology Microbiology Results: Microbiology 01/30/24 13:52 Gram Stain - Final Ascites Fluid Anaerobic Culture - Preliminary No growth to date. Body Fluid Culture - Final No growth after 2 days 01/29/24 19:17 Blood Culture - Preliminary Blood - Venous No growth after 48 hours. 01/29/24 19:21 Blood Culture - Preliminary Blood - Venous No growth after 48 hours. Assessment and Plan (1) Cholelithiasis: Status: Acute Plan 63 y/o PMHx significan for liver cirrhosis + portal hypertension admitted with: Abdominal pain and fever in the setting of cholelithiasis. No common bile duct dilatation. Acute cholecystitis? SBP? clinically improving. -seen by surgery -MRCP 01/29 showed no cbd stone -GI following -empiric ceftriaxone and flagyl -No CCY at this, cholecystectomy planned for today -advance diet Heartburn. - PPI Essential hypertension - Lisinopril on hold due to NPO status. Labetalol IV as needed. Hyperlipidemia. hold statin Elevated bilirubin and alk-phos, normal transaminases. Likely secondary to liver disease. Continue to monitor LFTs. Hyponatremia. Likely 3rd spacing. Hx of diabetes mellitus. Not on meds. BG checks q 6h while NPO. SSI Thrombocytopenia and elevated INR. Due to liver disease; no evidence of acute bleeding. Continue to monitor platelets, hemoglobin and INR. Hx of alcohol abuse?, discrepancy between what patient and says about alcohol consumption. [facility] protocol. Thiamine IV. Folic acid, multivitamin and magnesium orally when able. GI prophylaxis: omeprazole DVT prophylaxis: SCDs (thrombocytopenia), INR is elevated Code status: Full Quality Stroke Does the patient have a stroke diagnosis?: No VTE Prior VTE?: No VTE Risk Level:: Medical - moderate - high VTE Device Contraindication: N/A - Device Ordered VTE Drug Contraindication: Treatment Not Indicated
--- NOTE | 2024-02-01 13:54 | PM.PROC ---
Brief Operative Note Date of procedure: 02/01/24 Pre-op diagnosis: Acute cholecystitis Post-op diagnosis: same Procedure: CT cholecystostomy tube 8 fr drain placed. 120 cc mucinous/turbid brown fuid removed from gallbladder. Sample sent for culture. No immediate complications.
--- NOTE | 2024-02-01 14:27 | PM.EVENT ---
Event Note Date of Service: 02/01/24 Event Note: cholecystostomy drain placed by IR bilious output noted, with some blood pt currently comfortable ok to have regualr diet pain mgt looks well continue IV abx Time Spent With Patient Time: Total time managing care of this patient today ____ minutes.
--- NOTE | 2024-02-01 16:10 | P.PNGI_ITS ---
Subjective Subjective Date of Service: 02/01/24 Interval History: seen in room after tube placement some discomfort at site, overall feels well hungry Critical Care Time (minutes): 0 Physical Exam 2 Vital Signs: Vital Signs: Last Vital Signs Temp 99.6 F 02/01/24 15:16 Pulse 80 02/01/24 15:16 Resp 16 02/01/24 15:16 BP 104/57 L 02/01/24 15:16 Pulse Ox 94 02/01/24 15:16 O2 Del Method Room Air 02/01/24 15:16 O2 Flow Rate 94 01/31/24 19:42 BMI result Body Mass Index 33.0 GI: Other: abdomen is soft, BRIA drained of sanguineous, bilious drainage by RN Objective Data Labs 02/01/24 05:27 02/01/24 05:27 Labs: Microbiology Microbiology Results: Microbiology 02/01/24 13:45 Bile Gram Stain - Final 01/30/24 13:52 Ascites Fluid Gram Stain - Final 01/30/24 13:52 Ascites Fluid Anaerobic Culture - Preliminary No growth to date. 01/30/24 13:52 Ascites Fluid Body Fluid Culture - Final No growth after 2 days 01/29/24 19:17 Blood - Venous Blood Culture - Preliminary No growth after 48 hours. 01/29/24 19:21 Blood - Venous Blood Culture - Preliminary No growth after 48 hours. Procedures Date of Service Date of Service: 02/01/24 Progress Note: A&P Assessment and plan (1) Acute cholecystitis: Status: Acute Assessment and Plan: doing well wbc and lfts improved on abx. discussed management of drain with Aj agree with advancing diet. Time Spent With Patient Time: Total time managing care of this patient today ____ minutes. Quality Stroke Does the patient have a stroke diagnosis?: No VTE Prior VTE?: No VTE Risk Level:: Medical - moderate - high VTE Device Contraindication: N/A - Device Ordered VTE Drug Contraindication: Treatment Not Indicated
[2024-02-01 16:19] LABS: Glucose, Whole Blood 130 mg/dL (60-115)
[2024-02-01] MEDS: cefTRIAXone sodium 1 GM VIAL IVPUSH (18:38)
[2024-02-01] MEDS: HYDROmorphone HCl 1 MG/ML SYRINGE IVPUSH (18:41)
[2024-02-01] MEDS: 0.9 % Sodium Chloride Flush 3 ML SYRINGE IVFLUSH ×2 (18:46→21:23)
[2024-02-01] MEDS: Acetaminophen 325 MG TABLET 975 MG PO (21:22)
[2024-02-01 22:49] LABS: Glucose, Whole Blood 152 mg/dL (60-115)
[2024-02-01] MEDS: Insulin Lispro 100 UNIT/ML 3 ML VIAL SUBCUT (23:03)
[2024-02-02 03:25] VITALS: BP 110/96; PULSE 80; RESP 20; TEMP 36.8; O2SAT 96
[2024-02-02] MEDS: metroNIDAZOLE/NS 500 MG/100 ML PIGGYBACK 100 MG IV (03:29)
[2024-02-02] MEDS: oxyCODONE HCl Immed Release 5 MG TABLET PO (06:00)
[2024-02-02] MEDS: Omeprazole 20 MG CAPSULE.DR PO (06:01)
[2024-02-02 07:20] VITALS: BP 99/64; PULSE 81; RESP 14; TEMP 37.2; O2SAT 94
[2024-02-02 07:28] LABS: Glucose, Whole Blood 130 mg/dL (60-115)
[2024-02-02] MEDS: Thiamine HCL 100 MG in 0.9 % Sodium Chloride 100 ML 202 MG IV (08:47)
[2024-02-02] MEDS: 0.9 % Sodium Chloride Flush 3 ML SYRINGE IVFLUSH ×2 (08:51→20:26)
--- NOTE | 2024-02-02 08:52 | PM.PNGS ---
Subjective Subjective Date of Service: 02/02/24 Interval history: Patient feels overall improved after placement of cholecystostomy tube yesterday in IR. Physical Exam Vital Signs: Vital Signs: Last Vital Signs Temp 99.0 F 02/02/24 07:20 Pulse 81 02/02/24 07:20 Resp 14 02/02/24 07:20 BP 99/64 02/02/24 07:20 Pulse Ox 94 02/02/24 07:20 O2 Del Method Room Air 02/02/24 07:20 O2 Flow Rate 94 01/31/24 19:42 BMI result Body Mass Index 33.0 Const: General: comfortable Nutritional Appearance: well nourished Orientation/consciousness: patient oriented x3 Resp: Effort & Inspection: normal respiratory effort, no audible wheezes, no cough and no respiratory distress GI: Other: Soft, IR tube with serous fluid, slightly bile tinged. Abdomen soft and non-distended. Neuro: General: patient oriented x3 Extrem: Other: no edema; right foot no open wounds Objective Data Active Medications Acetaminophen (Acetaminophen 325 Mg Tablet) 975 mg PO Q6H PRN PRN Reason: Pain, Mild (Pain Scale 1-3), fever or headache Last Admin: 02/01/24 21:22 Dose: 975 mg Documented By: ALEX Ceftriaxone Sodium (Ceftriaxone Sodium 1 Gm Vial) 1 gm IVPUSH Q24H [facility] Last Admin: 02/01/24 18:38 Dose: 1 gm Documented By: NICK Glucose (Glucose Gel 15 Gm Gel..Gram.) 15 gm PO Q15M PRN; Protocol PRN Reason: per Hypoglycemia Standing Ord. Hydromorphone HCl (Hydromorphone Hcl 1 Mg/Ml Syringe) 1 mg IVPUSH Q3H PRN; Protocol PRN Reason: Pain, Severe (Pain Scale 7-10) Last Admin: 02/01/24 18:41 Dose: 1 mg Documented By: NICK Thiamine HCl 100 mg/ Sodium (Chloride) 101 mls @ 202 mls/hr IV DAILY [facility] Last Admin: 02/02/24 08:47 Dose: 202 mls/hr Documented By: WINNIE Dextrose (D10) 250 mls @ 750 mls/hr IV Q15M PRN; Protocol PRN Reason: per Hypoglycemia Standing Ord. Insulin Human Lispro (Insulin Lispro 100 Unit/Ml 3 Ml Vial) 0 unit SUBCUT QIDACHS [facility]; Protocol Last Admin: 02/02/24 07:30 Dose: Not Given Documented By: WINNIE Non-Admin Reason: No Insulin Coverage Labetalol HCl (Labetalol Hcl 100 Mg/20 Ml Vial) 10 mg IVPUSH Q4H PRN PRN Reason: SBP > 170 Metronidazole (Metronidazole 500 Mg Tablet) 500 mg PO Q8H [facility] Omeprazole (Omeprazole 20 Mg Capsule.Dr) 20 mg PO DAILY@0630 [facility] Last Admin: 02/02/24 06:01 Dose: 20 mg Documented By: ALEX Ondansetron HCl (Ondansetron Hcl 4 Mg/2 Ml Vial) 4 mg IVPUSH Q6H PRN PRN Reason: Nausea and Vomiting Last Admin: 01/30/24 14:58 Dose: 4 mg Documented By: SHAUNA Oxycodone HCl (Oxycodone Hcl Immed Release 5 Mg Tablet) 5 mg PO Q6H PRN PRN Reason: Pain, Moderate(Pain Scale 4-6) Last Admin: 02/02/24 06:00 Dose: 5 mg Documented By: ALEX Sodium Chloride (0.9 % Sodium Chloride Flush 3 Ml Syringe) [facility] Last Admin: 02/02/24 08:51 Dose: 3 ml Documented By: WINNIE Labs 02/01/24 05:27 02/01/24 05:27 Labs: Laboratory Results - last 24 hr 02/01/24 02/01/24 02/01/24 11:15 16:15 22:43 POC Glucose 149 H 130 H 152 H 02/02/24 07:23 POC Glucose 130 H Microbiology Microbiology Results: Microbiology 02/01/24 13:45 Gram Stain - Final Bile 01/30/24 13:52 Gram Stain - Final Ascites Fluid Anaerobic Culture - Preliminary No growth to date. Body Fluid Culture - Final No growth after 2 days Procedures Date of Service Date of Service: 02/02/24 Progress Note: A&P Assessment and plan (1) Acute cholecystitis: Status: Acute Assessment and Plan: s/p IR cholecystostomy tube placement Patient feels improved Tube functioning, decreased output WBC normal. Regular diet today. Time Spent With Patient Time: Total time managing care of this patient today ____ minutes. Quality Stroke Does the patient have a stroke diagnosis?: No VTE Prior VTE?: No VTE Risk Level:: Medical - moderate - high VTE Device Contraindication: N/A - Device Ordered VTE Drug Contraindication: Treatment Not Indicated
[2024-02-02] MEDS: metroNIDAZOLE 500 MG TABLET PO ×2 (10:53→18:10)
[2024-02-02 11:23] LABS: Glucose, Whole Blood 160 mg/dL (60-115)
[2024-02-02] MEDS: Insulin Lispro 100 UNIT/ML 3 ML VIAL SUBCUT ×2 (11:51→20:23)
--- NOTE | 2024-02-02 11:57 | HO.PM.IMPN ---
Subjective Subjective Date of Service: 02/02/24 Interval History: follow up on cholelithiasis interval history: s/p IR cholecystostomy tube placement yesterday had a fever of 101 last night Physical Exam Vital Signs: Vital Signs: Last Vital Signs Temp 99.0 F 02/02/24 07:20 Pulse 81 02/02/24 07:20 Resp 14 02/02/24 07:20 BP 99/64 02/02/24 07:20 Pulse Ox 94 02/02/24 07:20 O2 Del Method Room Air 02/02/24 07:20 O2 Flow Rate 94 01/31/24 19:42 BMI result Body Mass Index 33.0 General: AO X 3, no acute distress Resp: CTA bilateral CVS: S1,S2,RRR GI: +BS, NT, no distention, gallblader drain with bile Skin: No rash Neuro: motor grossly intact Psych: appropriate affect Objective Data Active Medications Acetaminophen (Acetaminophen 325 Mg Tablet) 975 mg PO Q6H PRN PRN Reason: Pain, Mild (Pain Scale 1-3), fever or headache Last Admin: 02/01/24 21:22 Dose: 975 mg Documented By: ALEX Ceftriaxone Sodium (Ceftriaxone Sodium 1 Gm Vial) 1 gm IVPUSH Q24H [facility] Last Admin: 02/01/24 18:38 Dose: 1 gm Documented By: NICK Glucose (Glucose Gel 15 Gm Gel..Gram.) 15 gm PO Q15M PRN; Protocol PRN Reason: per Hypoglycemia Standing Ord. Hydromorphone HCl (Hydromorphone Hcl 1 Mg/Ml Syringe) 1 mg IVPUSH Q3H PRN; Protocol PRN Reason: Pain, Severe (Pain Scale 7-10) Last Admin: 02/01/24 18:41 Dose: 1 mg Documented By: NICK Thiamine HCl 100 mg/ Sodium (Chloride) 101 mls @ 202 mls/hr IV DAILY [facility] Last Infusion: 02/02/24 09:29 Dose: Infused Documented By: WINNIE Dextrose (D10) 250 mls @ 750 mls/hr IV Q15M PRN; Protocol PRN Reason: per Hypoglycemia Standing Ord. Insulin Human Lispro (Insulin Lispro 100 Unit/Ml 3 Ml Vial) 0 unit SUBCUT QIDACHS [facility]; Protocol Last Admin: 02/02/24 11:51 Dose: 2 unit Documented By: WINNIE Labetalol HCl (Labetalol Hcl 100 Mg/20 Ml Vial) 10 mg IVPUSH Q4H PRN PRN Reason: SBP > 170 Metronidazole (Metronidazole 500 Mg Tablet) 500 mg PO Q8H [facility] Last Admin: 02/02/24 10:53 Dose: 500 mg Documented By: WINNIE Omeprazole (Omeprazole 20 Mg Capsule.Dr) 20 mg PO DAILY@0630 [facility] Last Admin: 02/02/24 06:01 Dose: 20 mg Documented By: ALEX Ondansetron HCl (Ondansetron Hcl 4 Mg/2 Ml Vial) 4 mg IVPUSH Q6H PRN PRN Reason: Nausea and Vomiting Last Admin: 01/30/24 14:58 Dose: 4 mg Documented By: SHAUNA Oxycodone HCl (Oxycodone Hcl Immed Release 5 Mg Tablet) 5 mg PO Q6H PRN PRN Reason: Pain, Moderate(Pain Scale 4-6) Last Admin: 02/02/24 06:00 Dose: 5 mg Documented By: ALEX Sodium Chloride (0.9 % Sodium Chloride Flush 3 Ml Syringe) 3 ml IVFLUSH QSHIFT [facility] Last Admin: 02/02/24 08:51 Dose: 3 ml Documented By: WINNIE Labs 02/01/24 05:27 02/01/24 05:27 Labs: Laboratory Results - last 24 hr 02/01/24 02/01/24 02/02/24 16:15 22:43 07:23 POC Glucose 130 H 152 H 130 H 02/02/24 11:19 POC Glucose 160 H Microbiology Microbiology Results: Microbiology 01/30/24 13:52 Gram Stain - Final Ascites Fluid Anaerobic Culture - Preliminary No growth to date. Body Fluid Culture - Final No growth after 2 days 02/01/24 13:45 Gram Stain - Final Bile Routine Culture - Preliminary Culture in progress. Anaerobic Culture - Preliminary Culture in progress. Assessment and Plan (1) Cholelithiasis: Status: Acute Plan 63 y/o PMHx significan for liver cirrhosis + portal hypertension admitted with: Abdominal pain and fever in the setting of cholelithiasis. No common bile duct dilatation. Acute cholecystitis? SBP? clinically improving. -seen by surgery -MRCP 01/29 showed no cbd stone -GI following -empiric ceftriaxone and flagyl -No CCY at this time, s/p cholecystectomy tube 01/31 -advance diet Heartburn. - PPI Essential hypertension - Lisinopril on hold due to NPO status. Labetalol IV as needed. Hyperlipidemia. hold statin Elevated bilirubin and alk-phos, normal transaminases. Likely secondary to liver disease. Continue to monitor LFTs. Hyponatremia. Likely 3rd spacing. Hx of diabetes mellitus. Not on meds. BG checks q 6h while NPO. SSI Thrombocytopenia and elevated INR. Due to liver disease; no evidence of acute bleeding. Continue to monitor platelets, hemoglobin and INR. Hx of alcohol abuse?, discrepancy between what patient and says about alcohol consumption. [facility] protocol. Thiamine IV. Folic acid, multivitamin and magnesium orally when able. GI prophylaxis: omeprazole DVT prophylaxis: SCDs (thrombocytopenia), INR is elevated Code status: Full Quality Stroke Does the patient have a stroke diagnosis?: No VTE Prior VTE?: No VTE Risk Level:: Medical - moderate - high VTE Device Contraindication: N/A - Device Ordered VTE Drug Contraindication: Treatment Not Indicated
[2024-02-02 15:02] VITALS: BP 103/59; PULSE 80; RESP 16; TEMP 37.3; O2SAT 94
[2024-02-02 16:12] LABS: Glucose, Whole Blood 140 mg/dL (60-115)
[2024-02-02] MEDS: cefTRIAXone sodium 1 GM VIAL IVPUSH (18:10)
[2024-02-02 19:39] LABS: Glucose, Whole Blood 180 mg/dL (60-115)
[2024-02-02 19:40] VITALS: BP 106/61; PULSE 84; RESP 20; TEMP 37.1; O2SAT 94
[2024-02-03] MEDS: HYDROmorphone HCl 1 MG/ML SYRINGE IVPUSH ×2 (00:25→19:32)
[2024-02-03] MEDS: metroNIDAZOLE 500 MG TABLET PO ×3 (03:35→18:02)
[2024-02-03 04:00] VITALS: BP 106/58; PULSE 67; RESP 20; TEMP 37.1; O2SAT 94
[2024-02-03] MEDS: Omeprazole 20 MG CAPSULE.DR PO (05:22)
[2024-02-03 07:40] VITALS: BP 100/56; PULSE 78; RESP 18; TEMP 37.1; O2SAT 94
[2024-02-03 07:53] LABS: Glucose, Whole Blood 143 mg/dL (60-115)
--- NOTE | 2024-02-03 11:00 | P.PNIM_ITS ---
Subjective Subjective Date of Service: 02/03/24 Interval History: follow up on cholelithiasis interval history: s/p IR cholecystostomy tube placement on 01/31 No fever > 24 hrs Physical Exam 2 Vital Signs: Vital Signs: Last Vital Signs Temp 98.8 F 02/03/24 07:40 Pulse 78 02/03/24 07:40 Resp 18 02/03/24 07:40 BP 100/56 L 02/03/24 07:40 Pulse Ox 94 02/03/24 07:40 O2 Del Method Room Air 02/03/24 07:40 O2 Flow Rate 94 01/31/24 19:42 BMI result Body Mass Index 33.0 General: AO X 3, no acute distress Resp: CTA bilateral CVS: S1,S2,RRR GI: +BS, mild tenderness around gallbladder tube, no distention, gallblader drain with bile Skin: No rash Neuro: motor grossly intact Psych: appropriate affect Objective Data Active Medications Acetaminophen (Acetaminophen 325 Mg Tablet) 975 mg PO Q6H PRN PRN Reason: Pain, Mild (Pain Scale 1-3), fever or headache Last Admin: 02/01/24 21:22 Dose: 975 mg Documented By: ALEX Ceftriaxone Sodium (Ceftriaxone Sodium 1 Gm Vial) 1 gm IVPUSH Q24H [facility] Last Admin: 02/02/24 18:10 Dose: 1 gm Documented By: WINNIE Glucose (Glucose Gel 15 Gm Gel..Gram.) 15 gm PO Q15M PRN; Protocol PRN Reason: per Hypoglycemia Standing Ord. Hydromorphone HCl (Hydromorphone Hcl 1 Mg/Ml Syringe) 1 mg IVPUSH Q3H PRN; Protocol PRN Reason: Pain, Severe (Pain Scale 7-10) Last Admin: 02/03/24 00:25 Dose: 1 mg Documented By: OKSANA Dextrose (D10) 250 mls @ 750 mls/hr IV Q15M PRN; Protocol PRN Reason: per Hypoglycemia Standing Ord. Insulin Human Lispro (Insulin Lispro 100 Unit/Ml 3 Ml Vial) 0 unit SUBCUT QIDACHS [facility]; Protocol Last Admin: 02/03/24 07:56 Dose: Not Given Documented By: WINNIE Non-Admin Reason: No Insulin Coverage Labetalol HCl (Labetalol Hcl 100 Mg/20 Ml Vial) 10 mg IVPUSH Q4H PRN PRN Reason: SBP > 170 Metronidazole (Metronidazole 500 Mg Tablet) 500 mg PO Q8H [facility] Last Admin: 02/03/24 03:35 Dose: 500 mg Documented By: OKSANA Omeprazole (Omeprazole 20 Mg Capsule.Dr) 20 mg PO DAILY@0630 [facility] Last Admin: 02/03/24 05:22 Dose: 20 mg Documented By: OKSANA Ondansetron HCl (Ondansetron Hcl 4 Mg/2 Ml Vial) 4 mg IVPUSH Q6H PRN PRN Reason: Nausea and Vomiting Last Admin: 01/30/24 14:58 Dose: 4 mg Documented By: KEVINRIVZAYNAB Oxycodone HCl (Oxycodone Hcl Immed Release 5 Mg Tablet) 5 mg PO Q6H PRN PRN Reason: Pain, Moderate(Pain Scale 4-6) Last Admin: 02/02/24 06:00 Dose: 5 mg Documented By: ALEX Sodium Chloride (0.9 % Sodium Chloride Flush 3 Ml Syringe) 3 ml IVFLUSH QSHIFT [facility] Last Admin: 02/03/24 08:55 Dose: Not Given Documented By: WINNIE Non-Admin Reason: Previously Administered Labs 02/01/24 05:27 02/01/24 05:27 Labs: Laboratory Results - last 24 hr 02/02/24 02/02/24 02/02/24 11:19 16:07 19:35 POC Glucose 160 H 140 H 180 H 02/03/24 07:40 POC Glucose 143 H Microbiology Microbiology Results: Microbiology 02/01/24 13:45 Gram Stain - Final Bile Routine Culture - Preliminary Culture in progress. Anaerobic Culture - Preliminary Culture in progress. 01/30/24 13:52 Gram Stain - Final Ascites Fluid Anaerobic Culture - Preliminary No growth to date. Body Fluid Culture - Final No growth after 2 days Assessment and Plan (1) Cholelithiasis: Status: Acute Plan 63 y/o PMHx significan for liver cirrhosis + portal hypertension admitted with: Abdominal pain and fever in the setting of cholelithiasis. No common bile duct dilatation. Acute cholecystitis? SBP? clinically improving. -seen by surgery -MRCP 01/29 showed no cbd stone -GI following -empiric ceftriaxone and flagyl -No CCY at this time, s/p cholecystectomy tube 01/31 -advance diet Heartburn. - PPI Essential hypertension - Lisinopril on hold due to NPO status. Labetalol IV as needed. Hyperlipidemia. hold statin Elevated bilirubin and alk-phos, normal transaminases. Likely secondary to liver disease. Continue to monitor LFTs. Hyponatremia. Likely 3rd spacing. Hx of diabetes mellitus. Not on meds. BG checks q 6h while NPO. SSI Thrombocytopenia and elevated INR. Due to liver disease; no evidence of acute bleeding. Continue to monitor platelets, hemoglobin and INR. Hx of alcohol abuse?, discrepancy between what patient and says about alcohol consumption. [facility] protocol. Thiamine IV. Folic acid, multivitamin and magnesium orally when able. GI prophylaxis: omeprazole DVT prophylaxis: SCDs (thrombocytopenia), INR is elevated Code status: Full home today if ok with surgery Quality Stroke Does the patient have a stroke diagnosis?: No VTE Prior VTE?: No VTE Risk Level:: Medical - moderate - high VTE Device Contraindication: N/A - Device Ordered VTE Drug Contraindication: Treatment Not Indicated
[2024-02-03 11:14] LABS: Glucose, Whole Blood 176 mg/dL (60-115)
[2024-02-03] MEDS: Insulin Lispro 100 UNIT/ML 3 ML VIAL SUBCUT (11:29)
[2024-02-03 15:39] VITALS: BP 107/60; PULSE 81; RESP 20; TEMP 36.8; O2SAT 93
[2024-02-03 16:14] LABS: Glucose, Whole Blood 125 mg/dL (60-115)
[2024-02-03] MEDS: cefTRIAXone sodium 1 GM VIAL IVPUSH (18:02)
[2024-02-03] MEDS: 0.9 % Sodium Chloride Flush 3 ML SYRINGE IVFLUSH (19:36)
[2024-02-03 20:00] VITALS: BP 102/59; PULSE 85; RESP 20; TEMP 37.2; O2SAT 94
[2024-02-03 20:36] LABS: Glucose, Whole Blood 129 mg/dL (60-115)
[2024-02-04 02:56] VITALS: BP 119/72; PULSE 87; RESP 16; TEMP 36.5; O2SAT 93
[2024-02-04] MEDS: HYDROmorphone HCl 1 MG/ML SYRINGE IVPUSH (03:20)
[2024-02-04] MEDS: metroNIDAZOLE 500 MG TABLET PO (03:20)
[2024-02-04] MEDS: Omeprazole 20 MG CAPSULE.DR PO (06:15)
[2024-02-04] MEDS: 0.9 % Sodium Chloride Flush 3 ML SYRINGE IVFLUSH (07:11)
[2024-02-04] MEDS: oxyCODONE HCl Immed Release 5 MG TABLET PO ×2 (07:12→10:40)
[2024-02-04 07:25] VITALS: BP 115/71; PULSE 80; RESP 16; TEMP 36.6; O2SAT 93
[2024-02-04 07:32] LABS: Glucose, Whole Blood 121 mg/dL (60-115)
--- NOTE | 2024-02-04 08:29 | PM.PNGS ---
Subjective Subjective Date of Service: 02/04/24 Interval history: Feels well Tolerating diet No fever Physical Exam Vital Signs: Vital Signs: Last Vital Signs Temp 97.8 F 02/04/24 07:25 Pulse 80 02/04/24 07:25 Resp 16 02/04/24 07:25 BP 115/71 02/04/24 07:25 Pulse Ox 93 02/04/24 07:25 O2 Del Method Room Air 02/04/24 07:25 O2 Flow Rate 94 01/31/24 19:42 BMI result Body Mass Index 33.0 Const: General: comfortable and no acute distress Resp: Effort & Inspection: normal respiratory effort Cardio: Rate: regular rate GI: Other: Cholecystostomy tube in place, scanty output Palpation (GI): Soft to palpation, not firm, nontender and no guarding Objective Data Active Medications Acetaminophen (Acetaminophen 325 Mg Tablet) 975 mg PO Q6H PRN PRN Reason: Pain, Mild (Pain Scale 1-3), fever or headache Last Admin: 02/01/24 21:22 Dose: 975 mg Documented By: ALEX Ceftriaxone Sodium (Ceftriaxone Sodium 1 Gm Vial) 1 gm IVPUSH Q24H [facility] Last Admin: 02/03/24 18:02 Dose: 1 gm Documented By: WINNIE Glucose (Glucose Gel 15 Gm Gel..Gram.) 15 gm PO Q15M PRN; Protocol PRN Reason: per Hypoglycemia Standing Ord. Hydromorphone HCl (Hydromorphone Hcl 1 Mg/Ml Syringe) 1 mg IVPUSH Q3H PRN; Protocol PRN Reason: Pain, Severe (Pain Scale 7-10) Last Admin: 02/04/24 03:20 Dose: 1 mg Documented By: RENNY Dextrose (D10) 250 mls @ 750 mls/hr IV Q15M PRN; Protocol PRN Reason: per Hypoglycemia Standing Ord. Insulin Human Lispro (Insulin Lispro 100 Unit/Ml 3 Ml Vial) 0 unit SUBCUT QIDACHS [facility]; Protocol Last Admin: 02/04/24 07:29 Dose: Not Given Documented By: ITZ Non-Admin Reason: No Insulin Coverage Labetalol HCl (Labetalol Hcl 100 Mg/20 Ml Vial) 10 mg IVPUSH Q4H PRN PRN Reason: SBP > 170 Metronidazole (Metronidazole 500 Mg Tablet) 500 mg PO Q8H [facility] Last Admin: 02/04/24 03:20 Dose: 500 mg Documented By: RENNY Omeprazole (Omeprazole 20 Mg Capsule.) 20 mg PO DAILY@0630 [facility] Last Admin: 02/04/24 06:15 Dose: 20 mg Documented By: RENNY Ondansetron HCl (Ondansetron Hcl 4 Mg/2 Ml Vial) 4 mg IVPUSH Q6H PRN PRN Reason: Nausea and Vomiting Last Admin: 01/30/24 14:58 Dose: 4 mg Documented By: LUCRECIA-RIVZAYNAB Oxycodone HCl (Oxycodone Hcl Immed Release 5 Mg Tablet) 5 mg PO Q6H PRN PRN Reason: Pain, Moderate(Pain Scale 4-6) Last Admin: 02/04/24 07:12 Dose: 5 mg Documented By: ITZ Sodium Chloride (0.9 % Sodium Chloride Flush 3 Ml Syringe) 3 ml IVFLUSH QSHIFT [facility] Last Admin: 02/04/24 07:11 Dose: 3 ml Documented By: ITZ Labs 02/01/24 05:27 02/01/24 05:27 Labs: Laboratory Results - last 24 hr 02/03/24 02/03/24 02/03/24 10:57 16:11 20:09 POC Glucose 176 H 125 H 129 H 02/04/24 07:27 POC Glucose 121 H Microbiology Microbiology Results: Microbiology 01/29/24 19:17 Blood Culture - Final Blood - Venous No growth after 5 days. 01/29/24 19:21 Blood Culture - Final Blood - Venous No growth after 5 days. 01/30/24 13:52 Gram Stain - Final Ascites Fluid Anaerobic Culture - Preliminary No growth to date. Body Fluid Culture - Final No growth after 2 days 02/01/24 13:45 Gram Stain - Final Bile Routine Culture - Preliminary Culture in progress. Anaerobic Culture - Preliminary Culture in progress. Procedures Date of Service Date of Service: 02/04/24 Progress Note: A&P Assessment and plan (1) Acute cholecystitis: Status: Acute Assessment and Plan: Status post IR drainage with cholecystostomy tube Doing well Good GI functions No fever No pain or tenderness Okay to DC home with cholecystostomy tube Follow up in the office Continue antibiotics Time Spent With Patient Time: Total time managing care of this patient today ____ minutes. Quality Stroke Does the patient have a stroke diagnosis?: No VTE Prior VTE?: No VTE Risk Level:: Medical - moderate - high VTE Device Contraindication: N/A - Device Ordered VTE Drug Contraindication: Treatment Not Indicated
--- NOTE | 2024-02-04 09:02 | P.PNGI_ITS ---
Subjective Subjective Date of Service: 02/04/24 Interval History: tolerating diet some pain around drain site Critical Care Time (minutes): 0 Physical Exam 2 Vital Signs: Vital Signs: Last Vital Signs Temp 97.8 F 02/04/24 07:25 Pulse 80 02/04/24 07:25 Resp 16 02/04/24 07:25 BP 115/71 02/04/24 07:25 Pulse Ox 93 02/04/24 07:25 O2 Del Method Room Air 02/04/24 07:25 O2 Flow Rate 94 01/31/24 19:42 BMI result Body Mass Index 33.0 Const: General: healthy appearing and comfortable GI: Other: abdomen is soft, drain site intact Objective Data Labs 02/01/24 05:27 02/01/24 05:27 Labs: Laboratory Results - last 24 hr 02/03/24 02/03/24 02/03/24 10:57 16:11 20:09 POC Glucose 176 H 125 H 129 H 02/04/24 07:27 POC Glucose 121 H Microbiology Microbiology Results: Microbiology 02/01/24 13:45 Bile Gram Stain - Final 02/01/24 13:45 Bile Routine Culture - Preliminary Gram negative fadi 02/01/24 13:45 Bile Anaerobic Culture - Preliminary Culture in progress. 01/29/24 19:17 Blood - Venous Blood Culture - Final No growth after 5 days. 01/29/24 19:21 Blood - Venous Blood Culture - Final No growth after 5 days. 01/30/24 13:52 Ascites Fluid Gram Stain - Final 01/30/24 13:52 Ascites Fluid Anaerobic Culture - Preliminary No growth to date. 01/30/24 13:52 Ascites Fluid Body Fluid Culture - Final No growth after 2 days Procedures Date of Service Date of Service: 02/04/24 Progress Note: A&P Assessment and plan (1) Acute cholecystitis: Start date: 02/04/24 Status: Acute Assessment and Plan: Labs and cx results reviewed. Drain management discussed, Dr Pina will provide further care. Discussed avoiding alcohol with patient and , Sana. Time Spent With Patient Time: Total time managing care of this patient today ____ minutes. Quality Stroke Does the patient have a stroke diagnosis?: No VTE Prior VTE?: No VTE Risk Level:: Medical - moderate - high VTE Device Contraindication: N/A - Device Ordered VTE Drug Contraindication: Treatment Not Indicated
--- NOTE | 2024-02-04 09:39 | P.DS_ITS ---
DS: Providers Provider Date of Service: 02/04/24 Date of admission: 01/29/24 20:21 Primary care physician: Jade Harper MD Consults: 01/29/24 20:23 Consult to Gastroenterology Routine Consulting Provider: Santos Khan Reason for consultation: Abdominal pain Has provider been notified: Yes Consult to General Surgery Routine Consulting Provider: [facility] General Surgeons Reason for consultation: abd pain, cholelithiasis,gallbladder thickening Has provider been notified: Yes 01/30/24 11:05 Consult to Wound Care Routine Reason for consultation: Right foot under pink wound? 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 No vomiting or diarrhea reported. Patient did not report any acute urinary symptoms. It seems like the patient has history of alcohol use. He said that the last time he drank alcohol was 2 months ago, however, who was at bedside commented that he has been drinking beer more recently than this. He has history of recent left knee surgery for which he was taking aspirin for DVT prophylaxis as well as Celebrex. He was wondering if this is causing this is contributing to his symptoms. Denied illicit drug use or marijuana use. He takes statin and lisinopril but has not been taking them recently. He did not report any acute cardiopulmonary symptoms. He follows up with , GI specialist, as an outpatient. In the ED, he was found to have fever of 100.8 and mild tachycardia. Blood pressure has been stable, last one is 113/58. Oxygen saturation is normal on room air. Blood workup was remarkable for leukocytosis of 13.2, hemoglobin of 13.7 and platelets 145. INR is 1.5. Sodium is 133. There are no other significant electrolyte imbalances. CO2 is 19 and renal function is normal. Total bilirubin and alk-phos are elevated. Transaminases are normal. Amylase and lipase are normal. Abdominal ultrasound finding consistent with cirrhosis, moderate ascites, cholelithiasis, gallbladder wall thickening and splenomegaly. Abdomen pelvis CT scan with IV contrast showed cirrhosis with portal hypertension, varices, splenomegaly and mesenteric edema and small amount of fluid in the cul de sac, there is no CBD dilatation. It also showed enlarged gallbladder with gallstones and mild wall thickening, ascites and diffuse ascending colon hepatic flexure mural thickening question colitis. ED tx: Dilaudid 0.5 mg IV, NS 2 L bolus, metronidazole 500 mg IV, ceftriaxone 2 g IV. Hospital course: Abdominal pain and fever in the setting of cholelithiasis. No common bile duct dilatation. -MRCP 01/29 showed no cbd stone. He was treated for acute cholecysititis, deemed high risk for surgery at this time and therefore underwent s/p cholecystectomy tube 01/31 and culture growin gram negative rodsa. He presently has no fever and tolerating regular diet. He will go home with cholcstectomy tube and outpatient follow up with surgery, he will complete 14 days course of antibiotics with Ceftin upon discharge for 8 more days. Essential hypertension--resume home meds Hyperlipidemia. hold statin Elevated bilirubin and alk-phos, normal transaminases. Likely secondary to liver disease. Outpatient gi follow up Hyponatremia. Likely 3rd spacing, resolvedf. Hx of diabetes mellitus. Not on meds. diet controlled Thrombocytopenia chronic and stable d/t Alcohol use history abstinence discussed Time Attestation Discharge Coordination Time (in mins): 45 Quality: Safe Use of Opioids Does Pt have an Active Cancer Diagnosis on the Problem List?: No Quality: Stroke Does the patient have a stroke diagnosis?: No Physical Exam Vital Signs: Vital Signs: Last Vital Signs Temp 97.8 F 02/04/24 07:25 Pulse 80 02/04/24 07:25 Resp 16 02/04/24 07:25 BP 115/71 02/04/24 07:25 Pulse Ox 93 02/04/24 07:25 O2 Del Method Room Air 02/04/24 07:25 O2 Flow Rate 94 01/31/24 19:42 BMI result Body Mass Index 33.0 DS: Data Data Completed and Pending Completed studies during hospitalization [Text1]: Procedures Detachment at Right 1st Toe, Complete, Open Approach (01/05/22) Detachment at Right 2nd Toe, Complete, Open Approach (01/05/22) Fluoroscopy of Superior Vena Cava using Low Osmolar Contrast, Guidance (01/05/22) Insertion of Infusion Device into Superior Vena Cava, Percutaneous Approach (01/05/22) Labs on day of discharge: Laboratory Results - last 24 hr 02/03/24 02/03/24 02/03/24 10:57 16:11 20:09 POC Glucose 176 H 125 H 129 H 02/04/24 07:27 POC Glucose 121 H Preliminary micro results at discharge 02/01/24 13:45 Routine Culture - Preliminary Bile Gram negative fadi Anaerobic Culture - Preliminary Culture in progress. 01/30/24 13:52 Anaerobic Culture - Preliminary Ascites Fluid No growth to date. Discharge Plan Discharge Anticipated Discharge Date/Time: 02/04/24 09:26 Patient Disposition: Home, Self-Care Discharge Diagnosis: Acute cholecystitis Referrals: Po,Jade No MD [Primary Care Provider] - 1 Week Discharge Medications: New cefuroxime axetil 500 mg tablet 500 mg PO BID 8 Days Qty: 16 0RF Continued (DME) right great toe prosthetic to fit See Rx Instructions .Route .MEDSUPPLY Qty: 1 0RF Rx Instructions: As directed (DME) prosthetic shoe to fit See Rx Instructions .Route .MEDSUPPLY Qty: 1 0RF Rx Instructions: As directed lisinopril 5 mg tablet 5 mg PO DAILY Qty: 90 7RF simvastatin 5 mg tablet 5 mg PO BEDTIME Qty: 90 1RF Discharge Orders: Discharge Order (Routine); Ordered 02/04/24 Ordered By: Farhad Bond Diet: Advance to usual diet Activity on Discharge: As tolerated Stand Alone Forms: Patient Portal Discharge page Print Language: Turkmen Care Plan Goals: recovery fom cholecystitis Health Concerns: cholecystitis Plan of Treatment: take Ceftin as recommended and empty drain at least once daily follow up with Dr. Pina Assessment: see above
--- NOTE | 2024-02-04 09:49 | MHC.CM.PN ---
Patient medically cleared for dc home self care. Will dc w/ drain in place. Per MD services not needed. Patient is agreeable and feels he can manage drain care independently. will transport home ~11:00am. RN aware.
== END 2024-02-04 12:21 | disposition home or self-care (01) ==
LOC: HO.ED 19:57 → HO.EDOVER 21:08 → HO.S3 01-30 09:57
PROVIDERS: Internal Medicine Gastroenterology; Physician Assistant Surgical; Registered Nurse Emergency; Admitting Provider Internal Medicine; Emergency Provider Emergency Medicine Emergency Medical Services; PCP Internal Medicine; Visit Provider Internal Medicine
DX: K81.0 Acute cholecystitis (principal); K70.31 Alcoholic cirrhosis of liver with ascites; K76.6 Portal hypertension; E87.1 Hypo-osmolality and hyponatremia; D69.59 Other secondary thrombocytopenia; F10.10 Alcohol abuse, uncomplicated; E78.5 Hyperlipidemia, unspecified; I10 Essential (primary) hypertension; K21.9 Gastro-esophageal reflux disease without esophagitis; Z79.899 Other long term (current) drug therapy
CPT/HCPCS: 36415; 49083; 71045; 74177; 74181; 75989; 80048; 80053; 80076; 81001; 82150; 82947; 83605; 83690; 83735; 85025; 85027; 85610; 87040; 87070; 87073; 87077; 87186; 87205; 89051; 99152; 99285; C1729; C1769; J0696; J0737; J1171; J1836; J2003; J2405; J2470; J3411; J3430; Q9967

== ENCOUNTER 2024-01-29 20:21 | Outpatient (BNV) | payer OTHER, SELFPAY | END 2024-01-30 13:00 | PROVIDERS: Admitting Provider Internal Medicine; Emergency Provider Emergency Medicine Emergency Medical Services; PCP Internal Medicine; Visit Provider Physician Assistant Surgical | DX: R18.8 Other ascites (principal) | CPT/HCPCS: 49083 ==

== ENCOUNTER 2024-01-29 20:21 | Outpatient (BNV) | payer OTHER, SELFPAY | END 2024-02-01 13:16 | PROVIDERS: Admitting Provider Internal Medicine; Emergency Provider Emergency Medicine Emergency Medical Services; PCP Internal Medicine; Visit Provider Physician Assistant Surgical | DX: K80.20 Calculus of gallbladder without cholecystitis without obstruction (principal) | CPT/HCPCS: 47490 ==

== ENCOUNTER → 2024-01-29 20:21 | Outpatient (BNV) | payer OTHER, SELFPAY | PROVIDERS: Admitting Provider Internal Medicine; Emergency Provider Emergency Medicine Emergency Medical Services; PCP Internal Medicine; Visit Provider Internal Medicine | DX: K80.21 Calculus of gallbladder without cholecystitis with obstruction (principal) | CPT/HCPCS: 99223; 99232 ==

== ENCOUNTER → 2024-01-29 20:21 | Outpatient (BNV) | payer OTHER, SELFPAY | PROVIDERS: Admitting Provider Internal Medicine; Emergency Provider Emergency Medicine Emergency Medical Services; PCP Internal Medicine; Visit Provider Surgery | DX: K81.0 Acute cholecystitis (principal) | CPT/HCPCS: 99222; 99232; 99499 ==

== ENCOUNTER 2024-02-11 10:00 | Outpatient (AMB) | payer OTHER, SELFPAY ==
[2024-02-11 10:03] VITALS: BP 106/58; PULSE 88; O2SAT 95; BMI 32.4
--- NOTE | 2024-02-11 10:03 | A.OFFPC_ITS ---
Vital Signs 02/11/24 10:03 Height 6 ft Weight 239 lb BMI 32.4 BP 106/58 L Blood Pressure Location Lt brachial Position Sitting Pulse 88 Pulse Source Pulse Oximeter Pulse Oximetry (%) 95 Oxygen Delivery Method Room Air Intake Visit Reasons: tcm Allergies No Known Allergies Allergy (Verified 02/11/24 11:43) Tobacco use date assessed: 01/28/24 Fall risk assessment: No Falls in past year Last assessed Fall Risk: 02/11/24 Dental Screening Dental Screen Date: 07/12/23 HPI tcm HPI Details 63-year-old obese male with past medical history of diabetes mellitus, peripheral vascular disease, hypertension, liver cirrhosis last seen by Dr. Harper January 2024 coming in for hospital discharge follow up. In review of the notes, patient was seen in [facility] ED 01/29/2024 for right upper quadrant abdominal pain while in the ER ultrasound concerning for cholelithiasis with gallbladder wall thickening as well as ascites and cirrhosis. Patient was admitted for further monitoring MRCP was negative and was treated for acute cholecystitis. Patient discharged 02/04/2024 advised to continue on Ceftin, hold statin and follow up with GI. Patient has follow up today with General surgery for gallbladder drain. Patient states he is feeling generally well he does continue to have left knee pain after left total knee replacement with Dr. Chisholm through [facility]. He has been an appointment scheduled later today with General surgery. He has noticed that his leg swelling bilaterally has been increasing. He has missed several different physical therapy appointments due recent hospitalization and has a result has left-sided knee stiffness. He also has a concern of possible diabetes as he was being treated with insulin hospital. TCM TCM Information Date of Discharge 02/04/24 Discharged From [facility] Medical History Gallstones Acute cholecystitis due to biliary calculus Bacteremia Alcohol use Wet gangrene Acidosis, lactic Leukocytosis Type 2 diabetes mellitus with hyperglycemia Lesion of right eyelid Colon cancer screening Constipation Guaiac + stool Fatty liver Cholelithiasis Hypertension Erectile dysfunction Hypercholesterolemia Thrombocytopenia Knee osteoarthritis Obesity (BMI 30-39.9) Surgical History History of total left knee replacement History of amputation of toe (01/06/22) Hx of colonoscopy History of left knee surgery Family History Family/Other Medical history unknown Social History Household Members: Significant Other Housing: House Do you presently have visiting nurse or other home services: Yes Patient Tobacco Use Status: Never used Tobacco e-Cigarette/Vaping Use: Never Used Second Hand Smoke Exposure: No service: No Current occupational status: employed Current occupational exposures/hazards: No Cognitive needs: No Hearing needs: No Vision needs: Yes Questionnaire Thrive Questionnaire Date Thrive assessed: 01/30/24 AUDIT C Alcohol Use Questionnaire (AUDIT-C) 1. How often do you have a drink containing alcohol?: 2-4 times a month 2. How many drinks containing alcohol do you have on a typical day when you are drinking?: 1 or 2 3. How often do you have six or more drinks on one occasion?: Never Total Score: 2 CECILY-7 AMB Questionnaire CECILY-7 Date CECILY - 7 assessed: 07/12/23 Source: Developed by Drs. Redd Sutton, Malathi Covarrubias, Lauri Berg and colleagues, with an educational phill from [employer]. Review of Systems Const Denies body aches, Denies chills, Denies fever(s), Denies headache(s) and Denies poor appetite Eyes Reports no additional complaints ENT Denies dysphagia, Denies dizziness, Denies headache(s) and Denies odynophagia Card Denies chest pain, Denies syncope, Denies edema, Denies irregular heart rhythm, Denies lightheadedness and Denies dyspnea Resp Denies cough and Denies dyspnea GI Denies abdominal pain, Denies constipation, Denies dysphagia, Denies diarrhea, Denies nausea, Denies odynophagia and Denies vomiting Reports no additional complaints Musc Reports no additional complaints and Denies abnormal gait Skin/Breast Reports system reviewed and no additional complaints, except as documented Neuro Denies abnormal gait, Denies dizziness, Denies syncope and Denies headache(s) Psych Reports no additional complaints Physical exam (Primary Care) Vital Signs: Last Vital Signs Pulse 88 02/11/24 10:03 BP 106/58 L 02/11/24 10:03 Pulse Ox 95 02/11/24 10:03 Oxygen Delivery Method Room Air 02/11/24 10:03 BMI result Body Mass Index 32.4 Tobacco/Smoking Status: Tobacco use Status Tobacco use date assessed 01/28/24 02/11/24 10:04 Patient Tobacco Use Status Never used Tobacco 02/11/24 10:04 e-Cigarette/Vaping Use Never Used 02/11/24 10:04 Thrive Assessment: Date of Thrive Assessment Date Thrive assessed 01/30/24 02/11/24 10:04 Const General: cooperative, healthy appearing, comfortable and no acute distress Orientation/consciousness: patient oriented x3 HENMT Head: Yes normocephalic Ears: hearing grossly normal bilaterally General nose exam: Normal external nose present Eyes General: appearance normal, both eyes and all related structures Conjunctivae: conjunctivae normal Neck Neck: Yes full ROM and Yes no lymphadenopathy Resp Effort & Inspection: normal respiratory effort Auscultation: clear to auscultation bilaterally, no crackles, no rales, no rhonchi and no wheezes Cardio Rate: regular rate Rhythm: regular rhythm Skin General skin exam: no rashes or lesions noted Neuro General: patient oriented x3 Gait exam (Neuro): Normal gait present Extrem General: Yes normal to inspection, Yes full ROM and Yes edema (1+ pitting) Psych Affect: normal affect Attitude: cooperative Insight: Good insight present (Psych) Judgement: Good judgement present (Psych) Coding Level of Care Code TCM Mod MDM <= 7 Days Complex EM visit Add On G2211 Diagnoses Acute cholecystitis K81.0 Ascites due to alcoholic cirrhosis K70.31 Ascites type: due to alcoholic cirrhosis Primary hypertension I10 Hypertension type: primary hypertension Type 2 diabetes mellitus with hyperglycemia E11.65 Hypercholesterolemia E78.00 Peripheral vascular disease I73.9 Arthritis of left knee M17.12 Assessment & Plan Assessment & Plan (1) Acute cholecystitis: Code(s): K81.0 - Acute cholecystitis Category: Medical Plan: Patient follow up with General surgery today for postoperative check. Plan to schedule for cholecystectomy at a later date. (2) Ascites: Code(s): R18.8 - Other ascites Category: Medical Qualifiers: Ascites type: due to alcoholic cirrhosis Qualified Code(s): K70.31 - Alcoholic cirrhosis of liver with ascites Plan: Advised to follow up with Dr. Khan for follow up appointment. (3) Hypertension: Code(s): I10 - Essential (primary) hypertension Category: Medical Qualifiers: Hypertension type: primary hypertension Qualified Code(s): I10 - Essential (primary) hypertension Plan: Continue on current blood pressure medication. Avoid salt intake and encourage healthy diet and regular exercise. (4) Type 2 diabetes mellitus with hyperglycemia: Comment: Dr. Richardson Code(s): E11.65 - Type 2 diabetes mellitus with hyperglycemia Category: Medical Plan: Patient declining A1c at this time we will order for blood work in 3 months and have patient follow up in 3 months. Given diabetes education paperwork. Decrease the amount of carbohydrates such as pasta, bread, rice, and potatoes and limit the amount of sweets. Although fruits are generally healthy they should be eaten in moderation as they are still high in sugar. (5) Hypercholesterolemia: Comment: ? borderline no meds Code(s): E78.00 - Pure hypercholesterolemia, unspecified Category: Medical Plan: Avoid foods that are high in cholesterol such as red meat, fried foods, eggs and baked goods. Triglyceride goal of less than 150 and LDL goal of less than 100. Ordered for updated blood work (6) Peripheral vascular disease: Code(s): I73.9 - Peripheral vascular disease, unspecified Category: Medical Plan: Patient has bilateral lower extremity swelling advised to elevate, use compression stockings and exercise as tolerated. (7) Arthritis of left knee: Code(s): M17.12 - Unilateral primary osteoarthritis, left knee Category: Medical Plan: Patient recently had left total knee replacement. Reviewed red flag symptoms of infection and when to present for re-evaluation. Advised to follow up with Dr. Pina in regards to physical therapy clearance. Plan This note was constructed using voice recognition software. While every effort has been made to ensure accuracy and supervisor pressing department, still areas may have been included sometimes these areas may affect the content or meeting of the given symptoms. Total time spent caring for the patient today was 30 minutes. This includes time spent before the visit reviewing the chart, time spent during the visit, and time spent after the visit and documentation.
== END 2024-02-11 10:58 | disposition home or self-care (01) ==
PROVIDERS: PCP Internal Medicine
DX: E11.65 Type 2 diabetes mellitus with hyperglycemia (principal); K70.31 Alcoholic cirrhosis of liver with ascites; I73.9 Peripheral vascular disease, unspecified; K81.0 Acute cholecystitis; I10 Essential (primary) hypertension; E78.00 Pure hypercholesterolemia, unspecified; M17.12 Unilateral primary osteoarthritis, left knee

== ENCOUNTER → 2024-02-11 10:00 | Outpatient (BNVA) | payer OTHER, SELFPAY | PROVIDERS: PCP Internal Medicine ==

== ENCOUNTER 2024-02-11 11:23 | Outpatient (AMB) | payer OTHER, SELFPAY ==
[2024-02-11 11:36] VITALS: BMI 32.4
--- NOTE | 2024-02-11 11:36 | MHC.OFFVIS ---
Vital Signs 02/11/24 11:36 Height 6 ft Weight 239 lb 0.015 oz BMI 32.4 Intake Visit Reasons: Wound check~ GB drain Intake Note: This patient presents for hospital follow-up for cholecystostomy. Pt c/o; wound check. 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 He was admitted for abdominal pain January 28 and was deemed to have acute calculous cholecystitis. However, he also was diagnosed to have cirrhosis, portal hypertension and varices. He has had a long history of very heavy alcohol intake. He does state that he had been sober for about 2-3 months now. Therefore underwent IR cholecystostomy tube drainage for his cholecystitis and this had worked out for him. He had improved significantly and was discharged on January 31. Has had good oral intake. He denies significant pain on the abdomen. He has had no fever or chills. [facility] Medical History Gallstones Acute cholecystitis due to biliary calculus Bacteremia Alcohol use Wet gangrene Acidosis, lactic Leukocytosis Type 2 diabetes mellitus with hyperglycemia Lesion of right eyelid Colon cancer screening Constipation Guaiac + stool Fatty liver Cholelithiasis Hypertension Erectile dysfunction Hypercholesterolemia Thrombocytopenia Knee osteoarthritis Obesity (BMI 30-39.9) Surgical History History of total left knee replacement History of amputation of toe (01/06/22) Hx of colonoscopy History of left knee surgery Family History Family/Other Medical history unknown Social History Household Members: Significant Other Housing: House Do you presently have visiting nurse or other home services: Yes Patient Tobacco Use Status: Never used Tobacco e-Cigarette/Vaping Use: Never Used Second Hand Smoke Exposure: No service: No Current occupational status: employed Current occupational exposures/hazards: No Cognitive needs: No Hearing needs: No Vision needs: Yes Review of Systems Const Denies chills and Denies fever(s) Card Denies chest pain Resp Denies cough GI Denies abdominal pain Physical Exam Vital Signs: BMI result Body Mass Index 32.4 Const General: comfortable and no acute distress Eyes Other: Sclerae icteric Resp Effort & Inspection: normal respiratory effort Cardio Rate: regular rate GI Other: Cholecystostomy tube in place, very scanty bilious output Palpation (GI): Soft to palpation, not firm, nontender and no guarding Assessment & Plan Assessment & Plan (1) Acute cholecystitis due to biliary calculus: Code(s): K80.00 - Calculus of gallbladder with acute cholecystitis without obstruction Category: Medical Plan: He had a cholecystostomy tube placed by IR because of his acute cholecystitis with note of cirrhosis of the liver, portal hypertension and varices He continues to do well with the IR tube in place I am going to her for him to the hepatobiliary service in [facility] because of his liver disease as he may benefit from cholecystectomy. I explained to him and his that in view of the risk of bleeding and perioperative events, it may be best to have that procedure done in a tertiary hospital I changed the dressings on his IR tube. I explained the above to his who is the one who has been guiding him through all of these. Coding Level of Care Code Est Pt Level 3 (54893) Diagnoses Acute cholecystitis due to biliary calculus K80.00
== END 2024-02-11 12:07 | disposition home or self-care (01) ==
PROVIDERS: PCP Internal Medicine; Visit Provider Surgery
DX: K80.00 Calculus of gallbladder with acute cholecystitis without obstruction (principal)
CPT/HCPCS: 99213

== ENCOUNTER 2024-05-28 09:57 | Outpatient (AMB) | payer OTHER, SELFPAY ==
--- NOTE | 2024-05-28 09:59 | A.OFFPC_ITS ---
Vital Signs 05/28/24 10:03 Height 6 ft Weight 182 lb BMI 24.7 BP 108/62 Blood Pressure Location Lt brachial Position Sitting Pulse 82 Pulse Source Pulse Oximeter Pulse Oximetry (%) 98 Oxygen Delivery Method Room Air Intake Visit Reasons: IGT Allergies No Known Allergies Allergy (Verified 05/28/24 10:04) Tobacco use date assessed: 05/28/24 Fall risk assessment: No Falls in past year Last assessed Fall Risk: 05/28/24 Dental Screening Dental Screen Date: 05/28/24 Did you have a dental visit in the last 12 months?: Yes Did you have a dental problem in the last 6 months where you did not have access to dental care?: No Was dental information given to patient?: Patient has dentist HPI IGT HPI Details TIPS procedure next week 06/11/2024, June for the ERCP 07/04/2024 for stent removal draining fluid 600 cc [facility] Medical History Gallstones Acute cholecystitis due to biliary calculus Bacteremia Alcohol use Wet gangrene Acidosis, lactic Leukocytosis Type 2 diabetes mellitus with hyperglycemia Lesion of right eyelid Colon cancer screening Constipation Guaiac + stool Fatty liver Cholelithiasis Hypertension Erectile dysfunction Hypercholesterolemia Thrombocytopenia Knee osteoarthritis Obesity (BMI 30-39.9) Surgical History History of total left knee replacement History of amputation of toe (01/06/22) Hx of colonoscopy History of left knee surgery Family History Family/Other Medical history unknown Social History Household Members: Significant Other Housing: House Do you presently have visiting nurse or other home services: Yes Patient Tobacco Use Status: Never used Tobacco Tobacco use type: Cigarette e-Cigarette/Vaping Use: Never Used Second Hand Smoke Exposure: No service: No Current occupational status: employed Current occupational exposures/hazards: No Cognitive needs: No Hearing needs: No Vision needs: Yes Questionnaire PHQ-9 Over the last 2 weeks, how often have you been bothered by any of the following problems? 1. Little interest or pleasure in doing things: not at all 2. Feeling down, depressed, or hopeless: not at all 3. Trouble falling or staying asleep, or sleeping too much: not at all 4. Feeling tired or having little energy: not at all 5. Poor appetite or overeating: not at all 6. Feeling bad about yourself - or that you are a failure or have let yourself or your family down: not at all 7. Trouble concentrating on things, such as reading the newspaper or watching television: not at all 8. Moving or speaking so slowly that other people could have noticed. Or the opposite - being so fidgety or restless that you have been moving around a lot more than usual: not at all 9. Thoughts that you would be better off or of hurting yourself in some way: not at all Total score: 0 Depression Screening Interpretation: Negative Depression Screening Done: Yes Source: Developed by Drs. Redd Sutton, Malathi Covarrubias, Lauri Berg and colleagues, with an educational phill from [employer]. Thrive Questionnaire Date Thrive assessed: 05/28/24 I am a: Patient What is your living situation today?: I have a steady place to live Within the past 12 months, did the food you bought not last and you didn't have the money to get more?: Never true Within the past 12 months, did you worry whether your food would run out before you got money to buy more?: Never true Do you have trouble paying for medicines?: No Do you have trouble getting transportation to medical appointments?: No Do you have trouble paying your heating and electricity bill?: No Do you have trouble taking care of your child, family member or friend?: No Do you have trouble with day-to-day activities such as bathing, preparing meals, shopping, managing finances, etc.?: No Are you currently unemployed and looking for a job?: No Are you interested in more education?: No Currently or been in a relationship where the following occur: No concerns reported THRIVE Score: 0 AUDIT C Alcohol Use Questionnaire (AUDIT-C) 1. How often do you have a drink containing alcohol?: 4 or more times a week 2. How many drinks containing alcohol do you have on a typical day when you are drinking?: 3 or 4 3. How often do you have six or more drinks on one occasion?: Daily or almost daily Total Score: 9 CECILY-7 AMB Questionnaire CECILY-7 Date CECILY - 7 assessed: 05/28/24 Feeling nervous, anxious, or on edge: 0 = Not at all Not being able to stop or control worryin = Not at all Worrying too much about different things: 0 = Not at all Trouble relaxin = Not at all Being so restless that it is hard to sit still: 0 = Not at all Becoming easily annoyed or irritable: 0 = Not at all Feeling afraid as if something awful might happen: 0 = Not at all Total CECILY-7 score (0-4 normal; 5-9 mild; 10-14 moderate; 15-21 severe): 0 Source: Developed by Drs. Redd Sutton, Malathi Covarrubias, Lauri Berg and colleagues, with an educational phill from [employer]. Physical exam (Primary Care) Vital Signs: Last Vital Signs Pulse 82 05/28/24 10:03 BP 108/62 05/28/24 10:03 Pulse Ox 98 05/28/24 10:03 Oxygen Delivery Method Room Air 05/28/24 10:03 BMI result Body Mass Index 24.7 Tobacco/Smoking Status: Tobacco use Status Tobacco use date assessed 05/28/24 05/28/24 10:05 Patient Tobacco Use Status Never used Tobacco 05/28/24 10:00 Tobacco use type Cigarette 05/28/24 10:05 e-Cigarette/Vaping Use Never Used 05/28/24 10:00 PHQ-9: PHQ-9 Score PHQ-9: Total score 0 05/28/24 11:01 Depression Screening Interpretation: Negative Thrive Assessment: Date of Thrive Assessment Date Thrive assessed 05/28/24 05/28/24 10:05 Currently or been in a relationship where the following occur: No concerns reported Const General: alert; No acute distress Eyes Conjunctivae: conjunctivae normal Resp Auscultation: clear to auscultation bilaterally Cardio Rate: regular rate Rhythm: regular rhythm GI Other: LUQ tube sticking out, bulging abdomen with umbilical hernia Extrem General: Yes normal to inspection and No edema Office Procedures Flu Questionnaire Does the patient have a severe egg allergy?: No Does the patient have severe life threatening allergies?: No Does the patient have a fever or illness today?: No Has the patient ever had Guillain-[place] Syndrome?: No Has the patient ever had any past reaction to a flu shot?: No Results AMB Hemoglobin A1c AMB Hemoglobin A1c 4.6 % Last Edit by Paola Sweeney CMA on 05/28/24 10 :32 Immunizations Fluarix Triv 5330-4031 (PF) 45 mcg (15 mcg x 3)/0.5 mL IM syringe Performing Provider: Jade Harper MD [facility] Administered by: Paola Sweeney CMA on 05/28/24 11:01 Dose Route Admin Location Dispensed Lot Number Expiration Date NDC Academic Vice President 0.5 mL IM Left Deltoid 0.5 mL [id number] 09/22/24 [id number] [employer] VIS Given Date VIS Provided VIS Publication Date 05/28/24 Single Vaccine 20 Eligibility Eligibility Date Funding Source Not [facility] Eligible 05/28/24 Private Results Reviewed Results Reviewed: Laboratory Last Values Hgb A1c (Clinic) 4.6 % (4.0-6.0) 05/28/24 10:32 Coding Level of Care Code Est Pt Level 4 (57836) Complex EM visit Add On G2211 Diagnoses Acute cholecystitis due to biliary calculus K80.00 Ascites due to alcoholic cirrhosis K70.31 Ascites type: due to alcoholic cirrhosis Alcoholic cirrhosis of liver K70.30 H/O spontaneous bacterial peritonitis Z86.19 History of biliary stent insertion Z98.890 Type 2 diabetes mellitus with hyperglycemia E11.65 Primary hypertension I10 Hypertension type: primary hypertension Hypercholesterolemia E78.00 Assessment & Plan Assessment & Plan (1) Acute cholecystitis due to biliary calculus: Code(s): K80.00 - Calculus of gallbladder with acute cholecystitis without obstruction Category: Medical Plan: Patient has a biliary stent replaced in April 2024 repeat ERCP in June 2024 (2) Ascites: Code(s): R18.8 - Other ascites Category: Medical Qualifiers: Ascites type: due to alcoholic cirrhosis Qualified Code(s): K70.31 - Alcoholic cirrhosis of liver with ascites Plan: On Lasix and Aldactone SBP prophylaxis with Cipro (3) Alcoholic cirrhosis of liver: Code(s): K70.30 - Alcoholic cirrhosis of liver without ascites Category: Medical Plan: Patient knows to abstain from alcohol (4) H/O spontaneous bacterial peritonitis: Comment: March 2024 Code(s): Z86.19 - Personal history of other infectious and parasitic diseases Category: Medical Plan: Spontaneous bacterial peritonitis prophylaxis with Cipro (5) History of biliary stent insertion: Code(s): Z98.890 - Other specified postprocedural states Category: Medical Plan: Repeat ERCP in 2 months (6) Type 2 diabetes mellitus with hyperglycemia: Comment: Dr. Richardson Code(s): E11.65 - Type 2 diabetes mellitus with hyperglycemia Category: Medical Plan: Decrease the amount of carbohydrate intake, pasta, bread, rice and potatoes are all sugar and that is aside from all the sweet stuff, remember that fruits are good but they are Sweet also. Noted weight loss will continue to monitor sugars (7) Hypertension: Code(s): I10 - Essential (primary) hypertension Category: Medical Qualifiers: Hypertension type: primary hypertension Qualified Code(s): I10 - Essential (primary) hypertension Plan: Continue with blood pressure medication. Decrease salt intake and exercise noted weight loss continue with monitoring blood pressure (8) Hypercholesterolemia: Comment: ? borderline no meds Code(s): E78.00 - Pure hypercholesterolemia, unspecified Category: Medical Plan: Avoid fried foods, chicken skin, eggs, butter margarine, pastries and meat. Be it pork or beef they have a lot of cholesterol noted weight loss continue to mon itor cholesterol on simvastatin Plan History of Present Illness The patient is a 63-year-old male presenting for follow-up management of chronic medical conditions. His extensive medical history includes diabetes mellitus, hypercholesterolemia, hypertension, and complications related to peripheral vascular disease, which have led to amputations. The patient has lost significant weight, approximately 60 pounds, raising concerns about his nutritional status and the impact on his diabetes management. Recently, he was hospitalized due to anxiety and cholelithiasis, with a complicated course related to alcoholic liver cirrhosis. This included an episode of cholecystitis managed with percutaneous drainage, but he was not suitable for surgical intervention. There have been ongoing liver issues with spontaneous bacterial peritonitis noted, requiring prophylaxis. ERCP procedures have been conducted to manage bile duct complications, with plans for future interventions. Health Maintenance Social History - Substance Use: The patient has a history of alcohol use contributing to his liver cirrhosis. - Nutritional Intake: Reports a diet modification with low sodium intake as directed for liver management. Review of Systems Physical Exam Results - Tests and Diagnostics: ERCP conducted on April 30, 2024. Replacement of biliary stent on May 20, 2024. Plan The management plan involves comprehensive monitoring and treatment adjustments for diabetes, including the assessment of blood glucose levels. Initiatives to regulate hypercholesterolemia and hypertension include both pharmacotherapy and lifestyle changes. In response to the challenging liver cirrhosis with portal hypertension, continued use of spironolactone, Lasix, and adherence to a low- sodium diet are foundational. Preventative antibiotic use for spontaneous bacterial peritonitis should remain in place. Scheduled ERCP follow-up will help assess ongoing bile duct issues. The possibility of a TIPS procedure will be evaluated based on symptomatology. Patient was informed and verbally consented to the use of an ambient scribe for clinic note documentation during this visit. Discussion Notes During the visit, I reviewed with the patient the current diagnoses and ongoing management strategies for each condition. For diabetes, I emphasized the significance of glycemic control, especially in light of recent weight loss. Regarding his liver disease, I explained the importance of the low sodium diet, continuous medication regimen, and bi-monthly ERCPs. We discussed the potential need for a TIPS procedure should ongoing issues with portal hypertension not resolve as expected. I highlighted the importance of maintaining his prophylactic antibiotics to prevent further episodes of spontaneous bacterial peritonitis. The patient understood and verbalized agreement with the outlined follow-up and treatment strategies. Patient Instructions - Continue all current medications as prescribed. - Monitor blood sugar levels regularly. - Follow a low-sodium diet strictly. - Attend scheduled follow-up appointments, including the upcoming ERCP. - Report any new or worsening symptoms, particularly symptoms that may suggest complications of liver disease. Orders: Orders AMB Hemoglobin A1c Today Z13.9 - Encounter for screening, unspecified Influenza Immunization Today Z23 - Encounter for immunization
[2024-05-28 10:03] VITALS: BP 108/62; PULSE 82; O2SAT 98; BMI 24.7
--- OUTSIDE RECORDS SUMMARY | 2024-05-28 11:37 | XMS_ITS | Continuity of Care Document ---
Author Organization [facility] Address [address] [place] [address]- Care Team Providers Care [employer] Professional Name Role Phone Jade Harper MD Primary Care Physician [place] [facility] [place]s): 02/13/24 - 05/03/24 [facility] [address] [place] [address] Discharge Disposition: A-D/C Home Attending Physician: Jackeline Estes MD Admitting Physician: Jackeline Estes MD Referring Physician: Ward Pina MD Encounter Type: Disch Recurring OP Allergies, Adverse Reactions, Alerts No Known Medication Allergies Medications lisinopril 5 mg oral tablet TAKE 1 TABLET BY MOUTH EVERY DAY Start Date: 12/12/23 Status: Ordered Repeat number: 1 sildenafil 100 mg oral tablet TAKE 1 TABLET BY MOUTH ONCE A DAY NEEDED FOR SEXUAL ACTIVITY Start Date: 12/12/23 Status: Ordered Repeat number: 1 simvastatin 5 mg oral tablet TAKE 1 TABLET BY MOUTH AT BEDTIME Start Date: 12/12/23 Status: Ordered Repeat number: 1 Problem List Condition Confirmation Course Effective Dates Status Health St atus Informant Obese class I Confirmed Active Vital Signs Most recent to oldest [Reference Range]: 1 Height 181.5 cm (03/03/24 12:50 PM) Weight 103.2 kg (03/03/24 12:50 PM) Oxygen Saturation [94-100 %] 97 % (03/03/24 12:50 PM) Pulse Rate [55-90 bpm] 94 bpm *H* (03/03/24 12:50 PM) Body Mass Index [18.5-24.99 kg/m2] 31.33 kg/m2 *>HHI* (03/03/24 12:50 PM) Blood Pressure [90-138/55-84 mm Hg] 123/ 71mm Hg (03/03/24 12:50 PM) Temperature [96.8-100.4 DegF] 98.4 DegF (03/03/24 12:50 PM) Mode of Delivery (Oxygen) Room air (03/03/24 12:50 PM) Blood pressure sites Arm, right (03/03/24 12:50 PM) Temperature Route Oral (03/03/24 12:50 PM) Dry Weight 103.2 kg (03/03/24 12:50 PM) Weight Obtained Via Standing scale (03/03/24 12:50 PM) Dry Weight Obtained Via Standing scale (03/03/24 12:50 PM) Social History Social History Type Response Smoking Status Never (less than 100 in lifetime) entered on: 12/13/23 Sex Sex Representation Male (finding) Patient Care team information Care Team Personnel Name: Jade Harper MD Position: Reference Physician Member Role: PCP Address: [address] [place] [address] Telecom: Insurance Providers Guarantor name: FERNANDO Health Plan Information #: 1 Payer: [employer] P[employer] Member Number: [id number] Policy Number: FERNANDO Group Number: [id number] Health Plan Information #: 2 Payer: [employer] P[employer] Member Number: [id number] Policy Number: FERNANDO Group Number: [id number]
--- OUTSIDE RECORDS SUMMARY | 2024-05-28 11:37 | XMS_ITS ---
Author Organization [facility] Address [address] [place] [address] Care Team Providers Care Thread Roller Name Role Phone Jade Harper Primary Care Provider [phone] Transplant Episode Liver Candidate [facility] ([place], [place]) - [facility] waitlisted on 05/02/2024 Marked as Active on 05/02/2024 Liver CoordinatorLorie Mahoney RN Phone: N/A Fax: N/A Email: N/A Scores Score Value Updated Expires Exceptions/Lucille sons CPRA Not available UNOS MELD 16 05/03/2024 08/01/2024 MELD (Calc) 16 05/15/2024 [employer] [employer] Organ Diagnosis Organ Primary Contributory Liver Cirrhosis: Metabolic Dysfunction and Alcohol-Related/Associated Liver Disease (MetALD) Care Team Name Role Phone Fax Email Lorie Mahoney RN Liver Coordinator N/A N/A N/A Santos Khan Referring Physician [phone] N/A Ward Pina Referring Physician [phone] N/A Mike Low MD Cut Filer [phone] [email or web address] Pre-Transplant Referred: 03/06/2024 Evaluation began: 03/18/2024 Committee: 05/01/2024 Center waitlisted: 05/02/2024 Appointments (04/30/2024 - 06/28/2024) When With Visit Type Description 05/15/2024 Transplant - Tong Low Follow Up Alcoholic cirrhosis of liver with ascites (CMS/HCC) (HCC) (Primary Dx); Cholecystitis; SBP (spontaneous bacterial peritonitis) (HCC)
--- OUTSIDE RECORDS SUMMARY | 2024-05-28 11:37 | XMS_ITS | Patient Health Record ---
Author Organization [facility] Address [address] [place] [address] Care Team Providers Care Supervisor Rice Milling Name Role Phone Jade Harper MD Primary Care Provider Santos Almeida Jr [phone] Allergies No Known Allergies Results Component Value Reference Range Notes Prothrombin Time INR Reviewed date:01/31/2024 09:37:29 AM Interpretation: Performing Lab:[facility], [address] [place] [id number] Notes/Report: Prothrombin Time 19.1 10.9-12.4 SEC INTERNATIONAL NORM RATIO 1.6 0.9-1.1 INTERNATIONAL NORMALIZED RATIO (INR) REFERENCE RANGES Reference Range For patients not on anticoagulant therapy: 0.9 - 1.1 INR ranges for oral anticoagulant therapy: For prevention and treatment of venous thrombosis and pulmonary embolism: 2.0 - 3.0 For acute myocardial infarction with aspirin therapy: 2.0 - 3.0 For acute myocardial infarction without aspirin therapy: 3.0 - 4.0 For patients with mechanical prosthetic heart valves: 2.5 - 3.5 Liver Panel Reviewed date:01/31/2024 09:37:23 AM Interpretation: Performing Lab:[address] [id number] Notes/Report: Bilirubin Total 2.4 0.0-1.0 mg/dL Slight Icte maya. Bilirubin Direct 1.2 0.0-0.5 mg/dL Slight Ict erus. Aspartate Amino Transferase 22 5-37 U/L Alanine Aminotransferase 11 0-40 U/L Total Protein 6.0 6.5-8.0 g/dL Albumin Level 2.8 3.5-5.0 g/dL Alkaline Phosphatase 114 39-117 U/L Reason For Referral No Information Medications Medication SIG (Take, Route, Frequency, Duration) Notes Start Date End Date Status MiraLax (colon prep) 17 GM/SCOOP mixed with Gatorade or Crystal Light Orally begin at 5:00 p.m. the day before the procedure for 1 day 08/15/2021 Active Lisinopril 5 MG Oral for 90 Ac tive hydroCHLOROthiazide 25 MG Oral for 90 Active Sildenafil Citrate 50 MG TAKE 1 TAB (50 MG) DAILY NEEDED FOR SEXUAL ACTIVITY Oral for 75 Active Immunizations Vaccine Route Administration Date Status Comme nts Influenza Unknown 02/09/2021 Administered Social History Tobacco Use: Social History Observation Description Date Details (start date - stop date) Never Smoker NA - NA Tobacco Use/Smoking Question Answer Notes Patient is a nonsmoker Alcohol Screen Question Answer Notes Did you have a drink contain ing alcohol in the past year? Yes How often did you have a dri nk containing alcohol in the past year? 4 or more times a week (4 points) How many drinks did you have on a typical day when you were drinking in the past year? 5 or 6 drinks (2 points) How often did you have 6 or more drinks on one occasion in the past year? Daily or almost daily (4 points) Points 10 Interpretation Positive Problems Problem Type SNOMED Code ICD Code Onset Dates Problem Status W/U Status Risk Notes Problem [id number] Colon cancer screening (Z12.11) Active confirmed Problem [id number] Encounter for other preprocedural examination (Z01.818) Active confirmed Encounters Encounter Location Date Provider Diagnosis [facility] [address] [place] [phone] 01/29/2024 Santos Khan Jr [facility] [address] [place] [phone] 02/26/2024 Santos Khan Jr [facility] [address] [place] [phone] 03/03/2024 Santos Khan Jr [facility] [address] [place] [phone] 03/06/2024 Santos Khan Jr [facility] [address] [place] [address] [place] [address] 03/28/2024 Santos Khan Jr [facility] [address] [place] [address] 04/22/2024 Santos Khan Jr Plan Of Treatment Future Test Test Name Order Date COLONOSCOPY 08/15/2021 Insurance Providers Payer Name Payer Address Payer Phone Subscriber Number Group Number Insured Name Patient Relationship to Insured Coverage Start Date Coverage End Date [employer] [place] [address] [address] [place] [address] [id number] DARCIE CAMACHO Self - patient is the insured Medical (General) History Medical History History ICD Code Hypertension Hyperglycemia Osteoarthritis Fatty liver Thrombocytopenia Surgical History Surgery Date(Month/Year)
--- OUTSIDE RECORDS SUMMARY | 2024-05-28 11:37 | XMS_ITS | Encounter Summary ---
Author Organization [facility] Address [address] [place] [address] Care Team Providers Care Manager Quantitative Name Role Phone Jade Harper Primary Care Provider [phone] Encounter Details Date Type Department Care Team (Late st Contact Info) Description 04/21/2024 Orders Only [facility] Interventional Radiology [address] [place] [address] Sonia Khoury NP [address] [place] [address] Social History Tobacco Use Types Packs/Day Years Used Date Smoking Tobacco: Never Smokeless Tobacco: Never Alcohol Use Standard Drinks/Week Comments Not Currently 8 (1 standard drink = 0.6 oz pur e alcohol) sober since 11/2023 [facility] Utilities Answer Date Recorded In the past 12 months has e electric, gas, oil, or water company threatened to shut off services in your home? No 04/12/2024 Hunger Vital Sign Answer Date Recorded Within the past 12 months, y ou worried that your food would run out before you got the money to buy more. Never true 04/12/19 25 Within the past 12 months, t he food you bought just didn't last and you didn't have money to get more. Never true 04/12/2024 Transportation Answer Date Recorded In the past 12 months, has l ack of reliable transportation kept you from medical appointments, meetings, work or from getting things needed for daily living? No 04/12/2024 Housing Answer Date Recorded Housing Risk Low 2 04/12/2024 Housing Risk Medium Not on file 04/12/2024 Housing Risk High Not on file 04/12/2024 What is your living situation today? LSSTEADY 04/12/2024 Sex and Gender Information Value Date Recorded Sex Assigned at Male 03/18/2024 10:45 AM EST Legal Sex Male 12:07 PM EST Gender Identity Male 03/20/2024 1:52 PM EST Sexual Orientation Straight 03/20/2024 1: 52 PM EST documented as of this encounter Plan of Treatment Upcoming Encounters Date Type Department Care Team (Latest Contact Info) Description 5 10:30 AM EST Appointment [facility] Interventional Radiology [address] [place] [address] Mike Rey i, MD [address] [place] [address] 64933 5 10:30 AM EDT Appointment [facility] [address] [place] [address]114 Mike Rey i, MD [address] [place] [address] 40707 5 2:00 PM EDT Pre-Admission Testing [facility] [address] [address] 5 10:00 AM EDT Appointment [facility] Interventional Radiology [address] [place] [address] Mike Rey i, MD [address] [place] [address] 73937 5 10:30 AM EDT Appointment [facility] Interventional [facility]iology [address] [place] [address] Mike Rey i, MD [address] [place] [address] 5 9:00 AM EDT Pre-Admission Testing [facility] 281 [facility] 3rd [place] [address] 5 10:30 AM EDT Appointment [facility] [address] [place] [address] Mike Rey i, MD [address] [place] [address] 5 10:30 AM EDT Appointment [facility] [address] [place] [address] Mike Rey i, MD [address] [place] [address] 89021 5 8:30 AM EDT Hospital Encounter [facility] Operating Room [address] [place] [address] Rachel Murray MD [address] [place] [address] 13310 5 8:30 AM EDT - 5 9:30 AM EDT Surgery [facility] Operating Room [address] [place] [address] Rachel Murray MD [address] [place] [address] 39943 ENDOSCOPIC RETROGRADE CHOLANGIOPANCREATOGRAPHY WITH REMOVAL OF FOREIGN BODY(S)/STENT(S)/PANCREATIC DUCT(S) WITH POSSIBLE MODERATE SEDATION [01794 (CPT??)] 5 10:30 AM EDT Appointment [facility] [address] [place] [address] 397[address] Mike Rey i, MD [address] [place] [address] 00756 5 4:30 PM EDT Follow-Up [facility] Liver Transplant Services [address] [place] [address] Mike Rey i, MD [address] [place] [address] 70808 5 10:30 AM EDT Appointment [facility] [address] [place] [address] 8[address] Mike Rey i, MD [address] [place] [address] 30567 5 10:30 AM EDT Appointment [facility] [address] [place] [address] 9[address] Mike Rey i, MD [address] [place] [address] 66408 5 10:30 AM EDT Appointment [facility] [address] [place] [address] 62599 Mike Rey i, MD [address] [place] [address] 66198 5 10:30 AM EDT Appointment [facility] [address] [place] [address] 89115 Mike Rey i, MD [address] [place] [address] 20375 5 10:30 AM EDT Appointment [facility] [address] [place] [address] 72509 Mike Rey i, MD [address] [place] [address] 85093 5 10:30 AM EDT Appointment [facility] [address] [place] [address] 83946 Mike Rey i, MD [address] [place] [address] 38602 5 10:30 AM EDT Appointment [facility] [address] [place] [address] 93441 Mike Rey i, MD [address] [place] [address] 26295 5 10:30 AM EDT Appointment [facility] [address] [place] [address] 96432 Mike Rey i, MD [address] [place] [address] 06169 5 10:30 AM EDT Appointment [facility] [address] [place] [address] Mike Rey i, MD [address] [place] [address] 87429 5 10:30 AM EDT Appointment [facility] [address] [place] [address] 48774 Mike Rey i, MD [address] [place] [address] 56699 10:30 AM EDT Appointment [facility] [address] [place] [address] Mike Rey i, MD [address] [place] [address] Scheduled Procedures Name Priority Associated Diagnoses Date/Ti me ENDOSCOPIC RETROGRADE CHOLANGIOPANCREATOGRAPHY WITH REMOVAL OF FOREIGN BODY(S)/STENT(S)/PANCREATIC DUCT(S) WITH POSSIBLE MODERATE SEDATION Encounter for removal of biliary stent 07/04/2024 8:30 AM EDT LAPAROSCOPIC CHOLECYSTECTOMY Acute cholecystitis documented as of this encounter Visit Diagnoses Not on filedocumented in this encounter Care Teams Manager Quantitative Relationship Specialty Start Date End Date Jade Harper [address] [place] [address] [place] [address] PCP - General Internal Medicine 03/06/24 documented as of this encounter
--- OUTSIDE RECORDS SUMMARY | 2024-05-28 11:37 | XMS_ITS | Encounter Summary ---
Author Organization [facility] Address [address] [place] [address] Care Team Providers Care Roundhouse Worker Name Role Phone Jade Harper Primary Care Provider [phone] Reason for Visit * Consultation (Routine) - Pending Review Specialty Diagnoses / Procedures Referred By Randi mondragon Referred To Contact Transplant Diagnoses Encounter for pre-transplant evaluation for liver transplant Mike Low MD [address] [place] [address] Phone: tel: fax: Cely Brenner [address] [address] Phone: tel: fax: Referral ID Status Reason Start Date Expiration Date Visits Requested Visits Authorized [id number] Pending Review Specialty Services Required 09/12/2025 6 6 Encounter Details Date Type Department Care Team (Late st Contact Info) Description 03/18/2024 2:00 PM EST Social Work [facility] Liver Transplant Services [address] [place] [address] Cely Brenner [address] [address] Social History Tobacco Use Types Packs/Day Years Used Date Smoking Tobacco: Never Alcohol Use Standard Drinks/Week Comments Yes 0 (1 standard drink = 0.6 oz pur e alcohol) Stopped 11/2023 [facility] Utilities Answer Date Recorded In the past 12 months has th e electric, gas, oil, or water company [...] PM EST documented as of this encounter Progress Notes * NARCISO Workman - 04/11/2024 9:10 AM EST Error- patient was removed from schedule per provider request, no addiction concerns at this time. * NARCISO Workman - 03/18/2024 11:32 AM EST error documented in this encounter Plan of Treatment Upcoming Encounters Date Type Department Care Team (Latest Contact Info) Description 5 10:30 AM EST Appointment [facility] Interventional Radiology [address] [place] [address] Mike Rey i, MD [address] [place] [address] 5 10:30 AM EDT Appointment [facility] Interventional Radiology [address] [place] [address] Mike Rey i, MD [address] [place] [address] 56971 5 2:00 PM EDT Pre-Admission Testing [facility] Pre Surgical [address] [address] 5 10:00 AM EDT Appointment [facility] Interventional Radiology [address] [place] [address] Mike Rey i, MD [address] [place] [address] 5 10:30 AM EDT Appointment [facility] Interventional Radiology [address] [place] [address] Mike Rey i, MD [address] [place] [address] 5 9:00 AM EDT Pre-Admission Testing [facility] Pre Surgical [address] [address] 5 10:30 AM EDT Appointment [facility] Interventional Radiology [address] [place] [address] Mike Rey i, MD [address] [place] [address] 5 10:30 AM EDT Appointment [facility] Interventional Radiology [address] [place] [address] Mike Rey i, MD [address] [place] [address] 5 8:30 AM EDT Hospital Encounter [facility] Operating Room [address] [place] [address] Rachel Murray MD [address] [place] [address] 14386 5 8:30 AM EDT - 5 9:30 AM EDT Surgery [facility] Operating Room [address] [place] [address] Rachel Murray MD [address] [place] [address] 07861 ENDOSCOPIC RETROGRADE CHOLANGIOPANCREATOGRAPHY WITH REMOVAL OF FOREIGN BODY(S)/STENT(S)/PANCREATIC DUCT(S) WITH POSSIBLE MODERATE SEDATION [[id number] (CPT??)] 5 10:30 AM EDT Appointment [facility] Interventional Radiology [address] [place] [address] Mike Rey i, MD [address] [place] [address] 19189 5 4:30 PM EDT Follow-Up [facility] Liver Transplant Services [address] [place] [address] Mike Rey i, MD [address] [place] [address] 53297 5 10:30 AM EDT Appointment [facility] Interventional Radiology [address] [place] [address] 16770 Mike Rey i, MD [address] [place] [address] 86269 5 10:30 AM EDT Appointment [facility] Interventional Radiology [address] [place] [address] 00681 Mike Rey i, MD [address] [place] [address] 25663 5 10:30 AM EDT Appointment [facility] Interventional Radiology [address] [place] [address] 60346 Mike Rey i, MD [address] [place] [address] 90203 5 10:30 AM EDT Appointment [facility] Interventional Radiology [address] [place] [address] 09447 Mike Rey i, MD [address] [place] [address] 95281 5 10:30 AM EDT Appointment [facility] Interventional Radiology [address] [place] [address] 88392 Mike Rey i, MD [address] [place] [address] 66524 5 10:30 AM EDT Appointment [facility] Interventional Radiology [address] [place] [address] 14181 Mike Rey i, MD [address] [place] [address] 00736 5 10:30 AM EDT Appointment [facility] Interventional Radiology [address] [place] [address] 45007 Mike Rey i, MD [address] [place] [address] 13766 5 10:30 AM EDT Appointment [facility] Interventional Radiology [address] [place] [address] 44342 Mike Rey i, MD [address] [place] [address] 95929 5 10:30 AM EDT Appointment [facility] Interventional Radiology [address] [place] [address] 82139 Mike Rey i, MD [address] [place] [address] 90324 5 10:30 AM EDT Appointment [facility] Interventional Radiology [address] [place] [address] 79327 Mike Rey i, MD [address] [place] [address] 57842 5 10:30 AM EDT Appointment [facility] Interventional Radiology [address] [place] [address] 86803 Mike Rey i, MD [address] [place] [address] 59099 Scheduled Procedures Name Priority Associated Diagnoses Date/Ti me ENDOSCOPIC RETROGRADE CHOLANGIOPANCREATOGRAPHY WITH REMOVAL OF FOREIGN BODY(S)/STENT(S)/PANCREATIC DUCT(S) WITH POSSIBLE MODERATE SEDATION Encounter for removal of biliary stent 07/04/2024 8:30 AM EDT LAPAROSCOPIC CHOLECYSTECTOMY Acute cholecystitis documented as of this encounter Visit Diagnoses Not on filedocumented in this encounter Care Teams Roundhouse Worker Relationship Specialty Start Date End Date Jade Harper [address] [place] [address] [place] [address] PCP - General Internal Medicine 03/06/24 documented as of this encounter
--- OUTSIDE RECORDS SUMMARY | 2024-05-28 11:38 | XMS_ITS | Encounter Summary ---
Author Organization [facility] Address [address] [place] [address] Care Team Providers Care Soft Work Wrapper Layer And Examiner Name Role Phone Jade Harper Primary Care Provider [phone] Encounter Details Date Type Department Care Team (Late st Contact Info) Description 05/07/2024 Orders Only [facility] Interventional Radiology [address] [place], [place] [phone] Sarah Melgar, JULIANE [address] [place] [address] [phone] Social History Tobacco Use Types Packs/Day Years Used Date Smoking Tobacco: Never Smokeless Tobacco: Never Alcohol Use Standard Drinks/Week Comments Not Currently 8 (1 standard drink = 0.6 oz pur e alcohol) sober since 11/2023 [facility] Utilities Answer Date Recorded In the [...] Info) Description 5 10:30 AM EST Appointment [facility] Interventional Radiology [address] [place] [address] Mike Rey i, MD [address] [place] [address] 62782 5 10:30 AM EDT Appointment [facility] Interventional Radiology [address] [place] [address] 560[address] Mike Rey i, MD [address] [place] [address] 58580 5 2:00 PM EDT Pre-Admission Testing [facility] [address] [address] 5 10:00 AM EDT Appointment [facility] Interventional Radiology [address] [place] [address] Mike Rey i, MD [address] [place] [address] 55692 5 10:30 AM EDT Appointment [facility] Interventional Radiology [address] [place] [address] Mike Rey i, MD [address] [place] [address] 5 9:00 AM EDT Pre-Admission Testing [facility] [address] [facility] 3rd [place] [address] 5 10:30 AM EDT Appointment [facility] Interventional Radiology [address] [place] [address] Mike Rey i, MD [address] [place] [address] 5 10:30 AM EDT Appointment [facility] Interventional Radiology [address] [place] [address] 26639 Mike Rey i, MD [address] [place] [address] 81360 5 8:30 AM EDT Hospital Encounter [facility] Operating Room [address] [place] [address] Rachel Murray MD [address] [place] [address] 66773 5 8:30 AM EDT - 5 9:30 AM EDT Surgery [facility] Operating Room [address] [place] [address] Rachel Murray MD [address] [place] [address] 62903 ENDOSCOPIC RETROGRADE CHOLANGIOPANCREATOGRAPHY WITH REMOVAL OF FOREIGN BODY(S)/STENT(S)/PANCREATIC DUCT(S) WITH POSSIBLE MODERATE SEDATION [[id number] (CPT??)] 5 10:30 AM EDT Appointment [facility] Interventional Radiology [address] [place] [address] Mike Rey i, MD [address] [place] [address] 38619 5 4:30 PM EDT Follow-Up [facility] Liver Transplant Services [address] [place] [address] Mike Rey i, MD [address] [place] [address] 32389 5 10:30 AM EDT Appointment [facility] Interventional Radiology [address] [place] [address] 34547 Mike Rey i, MD [address] [place] [address] 40407 5 10:30 AM EDT Appointment [facility] Interventional Radiology [address] [place] [address] 13337 Mike Rey i, MD [address] [place] [address] 69859 5 10:30 AM EDT Appointment [facility] Interventional Radiology [address] [place] [address] 10196 Mike Rey i, MD [address] [place] [address] 93667 5 10:30 AM EDT Appointment [facility] Interventional Radiology [address] [place] [address]35 Mike Rey i, MD [address] [place] [address] 69805 5 10:30 AM EDT Appointment [facility] Interventional Radiology [address] [place] [address] Mike Rey i, MD [address] [place] [address] 80999 5 10:30 AM EDT Appointment [facility] Interventional Radiology [address] [place] [address] 38672 Mike Rey i, MD [address] [place] [address] 50635 5 10:30 AM EDT Appointment [facility] Interventional Radiology [address] [place] [address] 28422 Mike Rey i, MD [address] [place] [address] 67343 5 10:30 AM EDT Appointment [facility] Interventional Radiology [address] [place] [address] Mike Rey i, MD [address] [place] [address] 84410 5 10:30 AM EDT Appointment [facility] Interventional Radiology [address] [place] [address] Mike Rey i, MD [address] [place] [address] 63203 5 10:30 AM EDT Appointment [facility] Interventional Radiology [address] [place] [address] 15[address] Mike Rey i, MD [address] [place] [address] 03621 10:30 AM EDT Appointment [facility] Interventional Radiology [address] [place] [address] Mike Rey i, MD [address] [place] [address] Scheduled Procedures Name Priority Associated Diagnoses Date/Ti me ENDOSCOPIC RETROGRADE CHOLANGIOPANCREATOGRAPHY WITH REMOVAL OF FOREIGN BODY(S)/STENT(S)/PANCREATIC DUCT(S) WITH POSSIBLE MODERATE SEDATION Encounter for removal of biliary stent 07/04/2024 8:30 AM EDT LAPAROSCOPIC CHOLECYSTECTOMY Acute cholecystitis documented as of this encounter Visit Diagnoses Not on filedocumented in this encounter Care Teams Soft Work Wrapper Layer And Examiner Relationship Specialty Start Date End Date Jade Harper [address] [place] [address] [place] [address] PCP - General Internal Medicine 03/06/24 documented as of this encounter
--- OUTSIDE RECORDS SUMMARY | 2024-05-28 11:38 | XMS_ITS | Encounter Summary ---
Author Organization [facility] Address [address] [place] [address] Care Team Providers Care Bi Report Developer Name Role Phone Jade Harper Primary Care Provider [phone] Encounter Details Date Type Department Care Team (Late st Contact Info) Description 04/18/2024 Orders Only [facility] Interventional Radiology [address] [place] [address] Malathi Brambila MD [address] [place] [address] Social History Tobacco Use Types Packs/Day Years Used Date Smoking Tobacco: Never Smokeless Tobacco: Never Alcohol Use Standard Drinks/Week Comments Not Currently 8 (1 standard drink = 0.6 oz pur e alcohol) sober since 11/2023 [facility] Utilities Answer Date Recorded In the [...] Info) Description 5 10:30 AM EST Appointment [facility] Interventional Radiology [address] [place] [address] Mike Rey i, MD [address] [place] [address] 78159 5 10:30 AM EDT Appointment [facility] Interventional Radiology [address] [place] [address] 80081 Mike Rey i, MD [address] [place] [address] 63837 5 2:00 PM EDT Pre-Admission Testing [facility] [address] [address] 5 10:00 AM EDT Appointment [facility] Interventional Radiology [address] [place] [address] Mike Rey i, MD [address] [place] [address] 20265 5 10:30 AM EDT Appointment [facility] Interventional Radiology [address] [place] [address] Mike Rey i, MD [address] [place] [address] 5 9:00 AM EDT Pre-Admission Testing [facility] Pre Surgical Center [address] [facility] 3rd [place] [address] 5 10:30 AM EDT Appointment [facility] Interventional Radiology [address] [place] [address] Mike Rey i, MD [address] [place] [address] 5 10:30 AM EDT Appointment [facility] Interventional Radiology [address] [place] [address] Mike Rey i, MD [address] [place] [address] 71971 5 8:30 AM EDT Hospital Encounter [facility] Operating Room [address] [place] [address] Rachel Murray MD [address] [place] [address] 75564 5 8:30 AM EDT - 5 9:30 AM EDT Surgery [facility] Operating Room [address] [place] [address] Rachel Murray MD [address] [place] [address] [phone] ENDOSCOPIC RETROGRADE CHOLANGIOPANCREATOGRAPHY WITH REMOVAL OF FOREIGN BODY(S)/STENT(S)/PANCREATIC DUCT(S) WITH POSSIBLE MODERATE SEDATION [71285 (CPT??)] 5 10:30 AM EDT Appointment [facility] Interventional Radiology [address] [place] [address] 145[address] Mike Rey i, MD [address] [place] [address] 81071 5 4:30 PM EDT Follow-Up [facility] Liver Transplant Services [address] [place] [address] Mike Rey i, MD [address] [place] [address] 73685 5 10:30 AM EDT Appointment [facility] Interventional Radiology [address] [place] [address] 99667 Mike Rey i, MD [address] [place] [address] 00320 5 10:30 AM EDT Appointment [facility] Interventional Radiology [address] [place] [address] 17695 Mike Rey i, MD [address] [place] [address] 28774 5 10:30 AM EDT Appointment [facility] Interventional Radiology [address] [place] [address] 13888 Mike Rey i, MD [address] [place] [address] 38306 5 10:30 AM EDT Appointment [facility] Interventional Radiology [address] [place] [address] 39717 Mike Rey i, MD [address] [place] [address] 96271 5 10:30 AM EDT Appointment [facility] Interventional Radiology [address] [place] [address] 85985 Mike Rey i, MD [address] [place] [address] 85285 5 10:30 AM EDT Appointment [facility] Interventional Radiology [address] [place] [address] 36205 Mike Rey i, MD [address] [place] [address] 36307 5 10:30 AM EDT Appointment [facility] Interventional Radiology [address] [place] [address] 16023 Mike Rey i, MD [address] [place] [address] 72324 5 10:30 AM EDT Appointment [facility] Interventional Radiology [address] [place] [address] 90633 Mike Rey i, MD [address] [place] [address] 95987 5 10:30 AM EDT Appointment [facility] Interventional Radiology [address] [place] [address] 63480 Mike Rey i, MD [address] [place] [address] 49020 5 10:30 AM EDT Appointment [facility] Interventional Radiology [address] [place] [address] 88255 Mike Rey i, MD [address] [place] [address] 38244 10:30 AM EDT Appointment [facility] Interventional Radiology [address] [place] [address] Mike Rey i, MD [address] [place] [address] Scheduled Procedures Name Priority Associated Diagnoses Date/Ti me ENDOSCOPIC RETROGRADE CHOLANGIOPANCREATOGRAPHY WITH REMOVAL OF FOREIGN BODY(S)/STENT(S)/PANCREATIC DUCT(S) WITH POSSIBLE MODERATE SEDATION Encounter for removal of biliary stent 07/04/2024 8:30 AM EDT LAPAROSCOPIC CHOLECYSTECTOMY Acute cholecystitis documented as of this encounter Visit Diagnoses Not on filedocumented in this encounter Care Teams Bi Report Developer Relationship Specialty Start Date End Date Po, Jade No [address] [place] [address] [place] [id number] PCP - General Internal Medicine 03/06/24 documented as of this encounter
--- OUTSIDE RECORDS SUMMARY | 2024-05-28 11:38 | XMS_ITS | Encounter Summary ---
Author Organization [facility] Address [address] [place] [address] Care Team Providers Care Registered Nurse Midwife Name Role Phone Jade Harper Primary Care Provider [phone] Encounter Details Date Type Department Care Team (Late st Contact Info) Description 05/07/2024 Orders Only [facility] Transplant Department [address] [place], [place] [phone] Lorie Mahoney RN Social History Tobacco Use Types Packs/Day Years Used Date Smoking Tobacco: Never Smokeless Tobacco: Never Alcohol Use Standard Drinks/Week Comments Not Currently 8 (1 standard drink = 0.6 oz pur e alcohol) sober since 11/2023 [facility] Utilities Answer Date Recorded In the past 12 months has [employer], gas, oil, or water [employer] threatened to shut off services in your [...] Info) Description 5 10:30 AM EST Appointment [facility] Interventional Radiology [address] [place] [address] Mike Rey i, MD [address] [place] [address] 27850 5 10:30 AM EDT Appointment [facility] Interventional Radiology [address] [place] [address] Mike Rey i, MD [address] [place] [address] 49849 5 2:00 PM EDT Pre-Admission Testing [facility] Pre [facility] Center [address] [place] [address] 59704 5 10:00 AM EDT Appointment [facility] Interventional Radiology [address] [place] [address] Mike Rey i, MD [address] [place] [address] 80033 5 10:30 AM EDT Appointment [facility] Interventional Radiology [address] [place] [address] 98146 Mike Rey i, MD [address] [place] [address] 5 9:00 AM EDT Pre-Admission Testing [facility] Pre Surgical Center [address] [facility] [address]rd [place] [address] 5 10:30 AM EDT Appointment [facility] Interventional Radiology [address] [place] [address] 77274 Mike Rey i, MD [address] [place] [address] 5 10:30 AM EDT Appointment [facility] Interventional Radiology [address] [place] [address] 92382 Mike Rey i, MD [address] [place] [address] 95226 5 8:30 AM EDT Hospital Encounter [facility] Operating Room [address] [place] [address] Rachel Murray MD [address] [place] [address] 14549 5 8:30 AM EDT - 5 9:30 AM EDT Surgery [facility] Operating Room [address] [place] [address] Rachel Murray MD [address] [place] [address] 90054 ENDOSCOPIC RETROGRADE CHOLANGIOPANCREATOGRAPHY WITH REMOVAL OF FOREIGN BODY(S)/STENT(S)/PANCREATIC DUCT(S) WITH POSSIBLE MODERATE SEDATION [65484 (CPT??)] 5 10:30 AM EDT Appointment [facility] Interventional Radiology [address] [place] [address] 96203 Mike Rey i, MD [address] [place] [address] 19206 5 4:30 PM EDT Follow-Up [facility] Liver Transplant Services [address] [place] [address] Mike Rey i, MD [address] [place] [address] 24363 5 10:30 AM EDT Appointment [facility] Interventional Radiology [address] [place] [address] 29897 Mike Rey i, MD [address] [place] [address] 15799 5 10:30 AM EDT Appointment [facility] Interventional Radiology [address] [place] [address] 58181 Mike Rey i, MD [address] [place] [address] 30452 5 10:30 AM EDT Appointment [facility] Interventional Radiology [address] [place] [address] 15962 Mike Rey i, MD [address] [place] [address] 55587 5 10:30 AM EDT Appointment [facility] Interventional Radiology [address] [place] [address] 28564 Mike Rey i, MD [address] [place] [address] 58897 5 10:30 AM EDT Appointment [facility] Interventional Radiology [address] [place] [address] 87231 Mkie Rey i, MD [address] [place] [address] 65425 5 10:30 AM EDT Appointment [facility] Interventional Radiology [address] [place] [address] 42782 Mike Rey i, MD [address] [place] [address] 72529 5 10:30 AM EDT Appointment [facility] Interventional Radiology [address] [place] [address] 58932 Mike Rey i, MD [address] [place] [address] 85034 5 10:30 AM EDT Appointment [facility] Interventional Radiology [address] [place] [address] 11784 Mike Rey i, MD [address] [place] [address] 04272 5 10:30 AM EDT Appointment [facility] Interventional Radiology [address] [place] [address] 55940 Mike Rey i, MD [address] [place] [address] 19109 5 10:30 AM EDT Appointment [facility] Interventional Radiology [address] [place] [address] 13025 Mike Rey i, MD [address] [place] [address] 01760 5 10:30 AM EDT Appointment [facility] Interventional Radiology [address] [place] [address] Mike Rey i, MD [address] [place] [address] 30900 Scheduled Procedures Name Priority Associated Diagnoses Date/Ti de ENDOSCOPIC RETROGRADE CHOLANGIOPANCREATOGRAPHY WITH REMOVAL OF FOREIGN BODY(S)/STENT(S)/PANCREATIC DUCT(S) WITH POSSIBLE MODERATE SEDATION Encounter for removal of biliary stent 07/04/2024 8:30 AM EDT LAPAROSCOPIC CHOLECYSTECTOMY Acute cholecystitis documented as of this encounter Visit Diagnoses Not on filedocumented in this encounter Care Teams Registered Nurse Midwife Relationship Specialty Start Date End Date Jade Harper [address] [place] [address] [place] [address] PCP - General Internal Medicine 03/06/24 documented as of this encounter
--- OUTSIDE RECORDS SUMMARY | 2024-05-28 11:38 | XMS_ITS | Encounter Summary ---
Author Organization [facility] Address [address] [place] [address] Care Team Providers Care Revenue Cycle Administrator Name Role Phone Jade Harper Primary Care Provider [phone] Encounter Details Date Type Department Care Team (Late st Contact Info) Description 05/07/2024 Orders Only [facility] Interventional Radiology [address] [place] [address] Karlene Mehta PA [address] [place] [address] Social History Tobacco Use Types Packs/Day Years Used Date Smoking Tobacco: Never Smokeless Tobacco: Never Alcohol Use Standard Drinks/Week Comments Not Currently 8 (1 standard drink = 0.6 oz pur e alcohol) sober since 11/2023 [facility] Utilities Answer Date Recorded In the [...] Info) Description 5 10:30 AM EST Appointment [facility] Interventional Radiology [address] [place] [address] 81193 Mike Rey i, MD [address] [place] [address] 50871 5 10:30 AM EDT Appointment [facility] Interventional Radiology [address] [place] [address] 44040 Mike Rey i, MD [address] [place] [address] 57816 5 2:00 PM EDT Pre-Admission Testing [facility] Pre [facility] Center [address] [facility] 3rd [place] [address] 5 10:00 AM EDT Appointment [facility] Interventional Radiology [address] [place] [address] Mike Rey i, MD [address] [place] [address] 36003 5 10:30 AM EDT Appointment [facility] Interventional Radiology [address] [place] [address] Mike Rey i, MD [address] [place] [address] 5 9:00 AM EDT Pre-Admission Testing [facility] Pre Surgical Center [address] [facility] 3rd [place] [address] 5 10:30 AM EDT Appointment [facility] Interventional Radiology [address] [place] [address] Mike Rey i, MD [address] [place] [address] 5 10:30 AM EDT Appointment [facility] Interventional Radiology [address] [place] [address] Mike Rey i, MD [address] [place] [address] 5 8:30 AM EDT Hospital Encounter [facility] Operating Room [address] [place] [address] Rachel Murray MD [address] [place] [address] 51768 5 8:30 AM EDT - 5 9:30 AM EDT Surgery [facility] Operating Room [address] [place] [address] Rachel Murray MD [address] [place] [address] 51557 ENDOSCOPIC RETROGRADE CHOLANGIOPANCREATOGRAPHY WITH REMOVAL OF FOREIGN BODY(S)/STENT(S)/PANCREATIC DUCT(S) WITH POSSIBLE MODERATE SEDATION [[id number] (CPT??)] 5 10:30 AM EDT Appointment [facility] Interventional Radiology [address] [place] [address] 18368 Mike Rey i, MD [address] [place] [address] 05480 5 4:30 PM EDT Follow-Up [facility] Liver Transplant Services [address] [place] [address] 94963 Mike Rey i, MD [address] [place] [address] 44063 5 10:30 AM EDT Appointment [facility] Interventional Radiology [address] [place] [address] 90860 Mike Rey i, MD [address] [place] [address] 42068 5 10:30 AM EDT Appointment [facility] Interventional Radiology [address] [place] [address] 05489 Mike Rey i, MD [address] [place] [address] 65480 5 10:30 AM EDT Appointment [facility] Interventional Radiology [address] [place] [address] 00264 Mike Rey i, MD [address] [place] [address] 74535 5 10:30 AM EDT Appointment [facility] Interventional Radiology [address] [place] [address] 76007 Mike Rey i, MD [address] [place] [address] 63842 5 10:30 AM EDT Appointment [facility] Interventional Radiology [address] [place] [address] 84667 Mike Rey i, MD [address] [place] [address] 60137 5 10:30 AM EDT Appointment [facility] Interventional Radiology [address] [place] [address] 15526 Mike Rey i, MD [address] [place] [address] 17112 5 10:30 AM EDT Appointment [facility] Interventional Radiology [address] [place] [address] 71803 Mike Rey i, MD [address] [place] [address] 24865 5 10:30 AM EDT Appointment [facility] Interventional Radiology [address] [place] [address] 51976 Mike Rey i, MD [address] [place] [address] 71307 5 10:30 AM EDT Appointment [facility] Interventional Radiology [address] [place] [address] 14729 Mike Rey i, MD [address] [place] [address] 55095 5 10:30 AM EDT Appointment [facility] Interventional Radiology [address] [place] [address] 08561 Mike Rey i, MD [address] [place] [address] 31751 10:30 AM EDT Appointment [facility] Interventional Radiology [address] [place] [address] Mike Rey i, MD [address] [place] [address] Scheduled Procedures Name Priority Associated Diagnoses Date/Ti me ENDOSCOPIC RETROGRADE CHOLANGIOPANCREATOGRAPHY WITH REMOVAL OF FOREIGN BODY(S)/STENT(S)/PANCREATIC DUCT(S) WITH POSSIBLE MODERATE SEDATION Encounter for removal of biliary stent 07/04/2024 8:30 AM EDT LAPAROSCOPIC CHOLECYSTECTOMY Acute cholecystitis documented as of this encounter Visit Diagnoses Not on filedocumented in this encounter Care Teams Revenue Cycle Administrator Relationship Specialty Start Date End Date Jade Harper [address] [place] [address] [place] [id number] PCP - General Internal Medicine 03/06/24 documented as of this encounter
--- OUTSIDE RECORDS SUMMARY | 2024-05-28 11:38 | XMS_ITS | Encounter Summary ---
Author Organization [facility] Address [address] [place] [address] Care Team Providers Care Lobsterman Name Role Phone Jade Harper Primary Care Provider Reason for Referral * Consultation (Routine) - Pending Review Specialty Diagnoses / Procedures Referred By Contac t Referred To Contact Home Health Services Diagnoses Decompensated cirrhosis (HCC) Delmis Joseph MD [address] [place] [id number] Phone: tel: fax: Referral ID Status Reason Start Date Expiration Date V isits Requested Visits Authorized [id number] Pending Review 05/03/2024 11/02/2025 6 6 Reason for Visit * Reason Comments ? SEPSIS * Auth/Cert (Routine) Specialty Diagnoses / Procedures Referred By Contac t Referred To Contact Diagnoses SBP (spontaneous bacterial peritonitis) (HCC) TrAC- SBP Referral ID Status Reason Start Date Expiration Date Visits Re quested Visits Authorized [id number] Encounter Details Date Type Department Care Team (Latest Contact Info) Description 04/24/2024 5:35 PM EST - 05/03/2024 4:53 PM EST Hospital Encounter [address] [address] Dana Samuels MD [address] [place] [id number] Natalio Lara MD [address] [place] [id number] Jeffrey Castro MD [address] [place] [id number] Delmis Joseph MD [address] [place] [phone] Spontaneous bacterial peritonitis (HCC) (Primary Dx); Cholecystitis; Decompensated cirrhosis (HCC) Discharge Disposition: Home with Services (06) Social History Tobacco Use Types Packs/Day Years Used Date Smoking Tobacco: Never Smokeless Tobacco: Never Alcohol Use Standard Drinks/Week Comments Not Currently 8 (1 standard drink = 0.6 oz pur e alcohol) sober since 11/2023 [facility] Utilities Answer Date Recorded In the [...] PM EST documented as of this encounter Last Filed Vital Signs Vital Sign Reading Time Taken Comments Blood Pressure 107/70 05/03/2024 5:27 AM EST Pulse 88 05/03/2024 5:27 AM EST Temperature 36 ??C (96.8 ??F) 05/03/2024 5:27 AM EST Respiratory Rate 18 05/03/2024 5:27 AM EST Oxygen Saturation 95% 05/03/2024 5:27 AM EST Inhaled Oxygen Concentration - - Weight 93 kg (205 lb) 04/29/2024 12:55 PM EST Height 180.3 cm (5' 11 ) 04/29/2024 12:55 PM EST Body Mass Index 28.59 04/29/2024 12:55 PM EST documented in this encounter Discharge Summaries * Alexei Lepe MD - 05/03/2024 11:58 AM EST Images from the original note were not included. DISCHARGE SUMMARY [facility] DISCHARGE INFORMATION: Date and Time of Admission: 04/24/2024 8:11 PM Date of Discharge: 05/03/24 DISCHARGE DIAGNOSIS: Problem List Active Problems * (Principal) SBP (spontaneous bacterial peritonitis) (HCC) Decompensated cirrhosis (HCC) Hyperlipidemia Hyponatremia Moderate protein-calorie malnutrition (CMS/HCC) Sepsis (HCC) ATTENDING PHYSICIAN ON DISCHARGE: Attending Provider: Delmis Joseph MD [phone] FOLLOW-UPS AND SCHEDULED APPOINTMENTS: Future Appointments Date Time Provider Department Center 07/08/2024 4:30 PM Mike Low MD [facility] CONTACT INFORMATION FOR FOLLOW-UP [employer] [address] [facility] [id number] Next Steps: Follow up PENDING LABS: . Ordered CULTURE, FLUID (Routine ) 04/29/24 0953 DISCHARGE MEDICATIONS: Discharge Medication list: Discharge Medications New Medications Sig Disp Refill ciprofloxacin 500 mg tablet Commonly known as: CIPRO Take 1 tablet (500 mg total) by mouth every 24 hours. 30 tablet 36 furosemide 40 mg tablet Commonly known as: LASIX Start taking on: May 04, 2024 Take 0.5 tablets (20 mg total) by mouth once a day. 15 tablet 0 lactulose 10 gram/15 mL solution Take 30 mL (20 g total) by mouth 3 times a day. 2700 mL 0 rifAXIMin 550 mg tablet Commonly known as: XIFAXAN Take 1 tablet (550 mg total) by mouth every 12 hours. 180 tablet 3 Medications To Continue Sig Disp Refill acetaminophen 500 mg tablet Commonly known as: TYLENOL Take 500 mg by mouth every 6 hours as needed for pain. 0 midodrine 5 mg tablet Commonly known as: PROAMATINE Take 3 tablets (15 mg total) by mouth every 8 hours. 270 tablet 2 polyethylene glycol 3350 17 gram packet Commonly known as: MIRALAX Take 1 packet (17 g total) by mouth daily as needed for constipation. Mix powder in 4 to 8 oz of water, juice, coffee, or tea prior to administration. 30 packet 0 sodium chloride 0.9% injection INJECT 0.3-1 SYRINGE (3-10 ML) BY INTRALUMINAL ROUTE EVERY 8 HOURS. 900 mL 3 spironolactone 50 mg tablet Commonly known as: ALDACTONE Take 1 tablet (50 mg total) by mouth once a day. 30 tablet 0 traZODone 50 mg tablet Commonly known as: DESYREL Take 1 tablet (50 mg total) by mouth nightly as needed for sleep. 30 tablet 0 ALLERGIES: Patient has no known allergies. IMMUNIZATION HISTORY: There is no immunization history for the selected administration types on file for this patient. 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 He had cholecystitis Jan 2024 and had a percutaneous drain placed 02/01/24 at [facility]- at the time due to new finding of liver cirrhosis and transaminitis he was not a candidate for cholecystectomy. He then recently developed SBP (secondary bacterial peritonitis) with Klebsiella resistant only to ampicillin recently in the setting of clogged percutaneous cholecystectomy drain. He was admitted here 04/11-04/19 for treatment of the bacterial peritonitis and discharged on Sunday with 3 more doses of ciprofloxacin for treatment. He finished the course on Sunday evening, however didnot know that he was also suppose to be on ciprofloxacin for prophylaxis after that was done. Thus did not take any cipro on Sun or . On Sun his got a notification on her phone that the med was ready for pickup and that's when she realized that, so started the ppx then. He had ongoing abdominal pain on and off for months now, sometimes at site of shay drain, other times periumbilical. Pain unchanged. No fevers at home. Endorses some chills but says that has not been new either. No chest pain, shortness of breath, N/V. Feels he has been urinating less but no dysuria. Has 3-4 BM daily, no melena or hematochezia. In the ED, he was afebrile, heart rate 80-100, blood pressure around 100 systolic. On room air. BMPnotable for mild hyponatremia, LFTs normal. CBC remarkable for new leukocytosis to 21. MELD 22. Para studies outpatient with IR showed 733 neutrophils consistent with SBP, 1.7L removed today. Blood cultures pending. He received CTX 1g in the ED. PAST MEDICAL HISTORY: Past Medical History: Diagnosis Date ALC (alcoholic liver cirrhosis) (CMS/HCC) (HCC) Alcoholism (CMS/HCC) (HCC) sober since 11/2023 Hyperlipidemia Hypertension Prediabetes PAST SURGICAL HISTORY: Past Surgical History: Procedure Laterality Date IR CHOLECYSTOSTOMY TUBE PLACEMENT [place] ERCP DX COLLECTION SPECIMEN BRUSHING/WASHING N/A 04/29/2024 Procedure: ENDOSCOPIC RETROGRADE CHOLANGIOPANCREATOGRAPHY, DIAGNOSTIC WITH POSSIBLE BRUSHING OR WASHING AND POSSIBLE MODERATE SEDATION; Surgeon: Rachel Murray MD; Location: [facility] GI OR; Service: Gastroenterology TOE AMPUTATION TOTAL KNEE ARTHROPLASTY Left PAST FAMILY HISTORY: Family History Problem Relation Age of Onset Other Mother unsure of medical history Myocardial Infarction Father PAST SOCIAL HISTORY: Social History Socioeconomic History Marital status: Spouse name: Not on file Number of children: Not on file Years of education: Not on file Highest education level: Not on file Occupational History Not on file Tobacco Use Smoking status: Never Smokeless tobacco: Never Vaping Use Vaping status: Never Used Substance and Sexual Activity Alcohol use: Not Currently Alcohol/week: 8.0 standard drinks of alcohol Types: 8 Cans of beer per week Comment: sober since 11/2023 Drug use: Never Sexual activity: Defer Other Topics Concern Not on file Social History Narrative Not on file HOSPITAL COURSE: 63M with PMH alc cirrhosis (getting transplant workup), obesity, pre-diabetes, 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 Found to be septic upon arrival to ED and started on zosyn and vancomycin then transitioned to ceftriaxone. Paracentesis completed 04/29 with 1.6L fluid removed. ERCP completed 04/30 with difficult cannulation. CBD stent placed and subsequently underwent transcystic stenting and stent exchange on repeat ERCP. He tolerated the procedure well and tolerated a diet afterwards. He will be discharged with instructions to follow- up with his outpatient hepatologistto coordinate repeat ERCP in about 2 months for stent removal and re-attempt at adequate drainage (05/02) and to discuss possibility of undergoing TIPS procedure. He will be discharged on 20 mg Lasix daily and spironolactone 50 mg daily and will take ciprofloxacin 500 mg daily for SBP prophylaxis. Hewas counseled on the importance of adhering to his lactulose and rifaximin regimen in addition to ahigh-protein, low-sodium diet. On discharge: - Follow-up with outpatient transit mechanic, has appointment on 07/08/2024. Encouraged patient to try to schedule for sooner follow-up - Will need ERCP in about 2 months for stent removal and re-attempt at adequate drainage (05/02). Will also need to discuss potential TIPS procedure with outpatient transit mechanic - Lasix 20 mg daily and spironolactone 50 mg daily - Will start ciprofloxacin 500 mg daily for SBP prophylaxis - Continue lactulose 30 g 3 times daily to titrate bowel movements 3-5 daily in addition to rifaximin 550 mg twice daily SBP (spontaneous bacterial peritonitis) More likely to be secondary bacterial peritonitis as he recently had a hospitalization 04/11-04/19 for clogged percutaneous cholecystectomy tube causing septic shock from secondary bacterial peritonitis. Growing Klebsiella at the time resistant to ampicillin only. He has a percutaneous cholecystectomy tube placed Jan 2024 due to cholecystitis and acute on chronic liver failure at the time precluding cholecystectomy. S/p CTX in ED x1 followed by vancomycin and zosyn, vanco discontinued on 04/27. Paracentesis completed 04/29 with 1.6L fluid removed. ERCP completed 04/30 with difficult cannulation. CBD stent placed with plan for transcystic stenting and stent exchange on repeat ERCP (05/02). Given complicated anatomy, unclear if there will be adequate drainage. Therefore, he will need to have a repeatERCP in about 2 months to remove stents and reattempt at adequate drainage. He will be discharged with ciprofloxacin 500 mg daily for SBP prophylaxis. Abx: Vanco (04/25-04/27) Zosyn (04/24-04/27) CTX (04/28-05/02) Sepsis (HCC) Sepsis with WBC 21, tachycardia, and tachypnea. Source confirmed SBP. Will send for other infectious workup (CXR, UA with culture reflex, BCX pending). Holding off on fluid resuscitation given adequate BP and volume overload at baseline necessitating daily diuretics as well as hyponatremia. Startedon abx as above. Reduced lactic acid clearance likely iso hepatic dysfunction (3.3>>>1.6) that improved with albumin administration. 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 Previous decompensations of ascites, SBP on ppx, HE. Follows withDr. Low outpatient. Somewhat of a recent diagnosis Jan 2024. Initially at that time his MELD was 35 but downtrended to 14 on discharge. On this admission, he was maintained on Lasix and spironolactone was held in setting of metabolic acidosis. His lactulose and rifaximin was continued however, the patient intermittently refused during the admission. He was given an albumin challenge perSBP protocol. On discharge, he will be discharged with 20 mg Lasix and 50 mg spironolactone in addition to lactulose and rifaximin. MELD at the time of discharge this admission was 16. Decompensation history Varices: unknown, needs screening EGD Ascites: on diuretics as above. Para outpatient with IR on day of admission draining 1.7L and totalhad 3 radha (04/14 draining about 5L, 04/18 about 5L, and day of admission), 2/ 1.6 L removed although noted to be loculated HE: history of HE, now on lactulose and rifaximin SBP: yes most recently earlier this month Workup: CT 3 Phase: no focal liver lesions, splenic enlargement, gastric fundal and paraesophageal varices.No gross ascites. Moderate left-sided pleural effusion. Hyponatremia Presentated with Na 127, improved with albumin administration. - Home diuretics as above - Outpatient fluid restriction of 1.2L liberalized iso sepsis Hyperlipidemia Pt states not taking simvastatin 5mg daily Moderate protein-calorie malnutrition (CMS/HCC) High protein diet, protein shakes. Pt says he does not like Ensure. DISCHARGE DAY INFORMATION: DISCHARGE PHYSICAL EXAM: Vital signs: Blood pressure 107/70, pulse 88, temperature 36 ??C (96.8 ??F), temperature source Oral, resp. rate 18, height 1.803 m (5' 11 ), weight 93 kg (205 lb), SpO2 95%. GENERAL: NAD, sitting in bed HEENT: EOMI. Conjunctivae non-ictereric. mmm Pulm: Decrease BS at b/l bases, CTABL CV: RRR, -mrg SKIN: No rashes seen on visible skin GI: Soft, distended, general mild abd tenderness worst in RUQ, -rebound/guarding MSK: No clubbing or cyanosis. No joint swelling, tenderness, effusions. No pedal edema. NEURO: Alert oriented x 3. No gross deficits. PSYCH: Normal mood and affect. LAB AND RADIOLOGY: LABS: Pertinent labs include Recent Results (from the past 24 hours) Basic Metabolic Panel Collection Time: 05/03/24 3:18 AM Specimen: Venous, Peripheral; Blood Result Value Ref Range NA 135 135 - 145 mmol/L K 3.7 3.5 - 5.3 mmol/L Cl 105 98 - 107 mmol/L CO2 21 (L) 22 - 32 mmol/L BUN 14 7 - 23 mg/dL Creatinine 0.60 0.60 - 1.30 mg/dL Glucose 113 (H) 65 - 99 mg/dL Calcium 8.2 (L) 8.6 - 10.5 mg/dL Anion Gap 9 5 - 15 eGFR >90 >=60 mL/min/1.73m2 Magnesium Collection Time: 05/03/24 3:18 AM Specimen: Venous, Peripheral; Blood Result Value Ref Range MG 1.8 1.6 - 2.4 mg/dL CBC Auto Differential Collection Time: 05/03/24 3:18 AM Specimen: Venous, Peripheral; Blood Result Value Ref Range WBC 4.3 3.8 - 10.8 10*3/uL RBC 3.68 (L) 4.20 - 5.80 10*6/uL Hemoglobin 11.6 (L) 13.2 - 17.1 g/dL Hematocrit 34.7 (L) 38.5 - 50.0 % MCV 94.3 80.0 - 100.0 fL MCH 31.5 27.0 - 33.0 pg MCHC 33.4 32.0 - 36.0 g/dL RDW 17.0 (H) 11.0 - 15.0 % Platelets 86 (L) 140 - 400 10*3/uL MPV 10.6 7.5 - 12.5 fL Neutrophil % 62.6 % Immature Grans % 0.5 0.0 - 0.9 % Lymphocyte % 15.3 % Monocyte % 19.5 % Eosinophil % 1.6 % Basophil % 0.5 % Neutrophil # 2.69 1.50 - 7.80 10*3/uL Immature Grans # <0.03 <=0.03 10*3/uL Lymphocyte # 0.70 (L) 0.85 - 3.90 10*3/uL Monocyte # 0.80 0.20 - 0.95 10*3/uL Eosinophil # 0.10 0.02 - 0.50 10*3/uL Basophil # <0.03 0.00 - 0.20 10*3/uL nRBC % 0.0 /100 WBCs nRBC # <0.01 <0.01 10*3/uL Protime-INR Collection Time: 05/03/24 3:18 AM Specimen: Venous, Peripheral; Blood Result Value Ref Range PT 16.5 (H) 9.6 - 12.4 Seconds INR 1.5 0.9 - 1.1 Hepatic function panel Collection Time: 05/03/24 3:18 AM Specimen: Venous, Peripheral; Blood Result Value Ref Range Total Protein 6.1 6.0 - 8.0 g/dL Albumin 3.0 (L) 3.5 - 5.2 g/dL Globulin, Total 3.1 2.1 - 4.2 g/dL Bilirubin, Total 2.4 (H) 0.2 - 1.2 mg/dL Bilirubin, Direct 1.4 (H) <=0.4 mg/dL Alkaline Phosphatase 181 (H) 35 - 129 U/L AST 69 (H) 10 - 40 U/L ALT 47 (H) 10 - 40 U/L Bilirubin, Indirect 1.00 (H) <=0.70 mg/dL A/G Ratio 1.0 (L) 1.5 - 3.0 IMAGING: Pertinent Imaging results include FL C-Arm ERCP in OR NONREPORTABLE Result Date: 05/02/2024 Narrative: This procedure does not contain a result. Please see the surgeon's note for official report. FL C-Arm ERCP in OR NONREPORTABLE Result Date: 04/29/2024 Narrative: This procedure does not contain a result. Please see the surgeon's note for official report. US Limited Abdomen Single Org Result Date: 04/28/2024 Narrative: EXAMINATION: Limited ultrasound of the abdomen. INDICATION: Liver enzyme elevation with increased bilirubin. TECHNIQUE: Limited ultrasound evaluation of the right upper quadrant of the abdomen. Multiple grayscale and color Doppler images were obtained. COMPARISON: [address] scan of the abdomen performed 04/25/2024. FINDINGS: LIVER: Hepatic cirrhosis. No focal lesions. The portal vein is patent on color Doppler with hepatopetal flow. BILIARY: The gallbladder is decompressed containinggallstones and cholecystostomy tube. The common bile duct measures 7 mm. PERITONEUM: Moderate perihepatic ascites. Impression: Decompressed gallbladder containing gallstones and cholecystostomy tube. Mildly prominent extra hepatic biliary tree, the common bile duct measures 7 mm, upper limit of normal. Ascites. If this radiology report contains a blank impression section, it is an incomplete radiology report. Please contact the interpreting radiologist or applicable radiology division as soon as possible to obtain the completed interpretation. Workstation ID: [id number] X-Ray Chest 1 View Result Date: 04/26/2024 Narrative: COMPARISON: 04/11/2024 FINDINGS AND Impression: Interval onset dense consolidation collapse and effusion at the left lung base. High diaphragms and low lung volumes otherwise as before. Heart size remains top normal. If this radiology report contains a blank impression section, it is an incomplete radiology report. Please contact theinterpreting radiologist or applicable radiology division as soon as possible to obtain the completed interpretation. Workstation ID: [id number] CT 3 Phase Liver Mass With Pelvis w Contrast Result Date: 04/25/2024 Narrative: EXAMINATION: CT 3 PHASE LIVER MASS WITH PELVIS WITH CONTRAST INDICATION: Liver transplant evaluation. TECHNIQUE: Images of the abdomen were obtained in the arterial, portal venous, and delayed phases following intravenous contrast administration. Portal venous phase images also include the pelvis. Coronal and sagittal reformats were generated. COMPARISON: 04/11/2024 and 01/29/2024 outside study. FINDINGS: LOWER THORAX: Moderate left pleural effusion noted. Varices seen around the esophagus at the GE junction image 27 series 12. HEPATOBILIARY: No focal liver lesions noted. Cirrhotic nodular liver. Patent hepatic and portal veins. Cholecystostomy tube seen within the gallbladder. No b ile duct dilatation. SPLEEN: 17.6 x 10.1 x 13.9 cm spleen. PANCREAS: Normal- appearing pancreas. ADRENAL GLANDS: No adrenal nodules. KIDNEYS/URETERS: Symmetric enhancement of the kidneys no hydronephrosis. No hydroureter. No solid mass. GI TRACT: Gastric fundal varices image 85 series 15. Small bowel loops are nondilated. Portal colopathy right colon. PERITONEUM/RETROPERITONEUM: Gross ascites. No free air. LYMPH NODES: No adenopathy. VESSELS: Aortic caliber normal. Ostial calcification SMA and celiac axis. PELVIC ORGANS/BLADDER: Urinary bladder unremarkable. BONES AND SOFT TISSUES: Over coverage of the femoral heads at the acetabulum image 112 series 15. Multilevel degenerative disc disease.No acute fracture. Impression: 1. Decompensated cirrhosis. No focal liver lesions. Splenic enlargement, gastric fundaland paraesophageal varices. Gross ascites. 2. Moderate left-sided pleural effusion. If this radiology report contains a blank impression section, it is an incomplete radiology report. Please contact the interpreting radiologist or applicable radiology division as soon as possible to obtain the completed interpretation. Workstation ID: [id number] IR Paracentesis Diagnostic and Therapeutic Result Date: 04/24/2024 Narrative: PROCEDURE: Diagnostic and therapeutic paracentesis. INDICATION: 63 y.o. year old male with alcohol cirrhosis and recurrent ascites. ATTENDING: Dr. Ector Sandy, the Attending physician, wason site and immediately available for assistance throughout the entire procedure. CEMENT FINISHER HELPER: JULIANE Osborne SEDATION: None DURATION: 40 minutes MEDICATIONS: 1. Lidocaine 1% for local anesthesia.GUIDANCE: Ultrasound. COMPLICATIONS: None PROCEDURE DESCRIPTION: Informed consent was obtained fromthe patient after discussion of risks, benefits, and alternatives. Maximal sterile barrier technique and sterile ultrasound technique was used for the entire procedure. A timeout was performed. Afterlocal anesthesia with lidocaine, a 6F Centeze needle catheter was advanced into a pocket of ascitesin the left upper quadrant under sonographic guidance. An ultrasound image was stored for the permanent record. serous fluid was aspirated. Samples of the fluid were sent for laboratory assays. The catheter was then removed and hemostasis was obtained at the puncture site with manual compression. Asterile dressing was applied. The patient tolerated the procedure well. FINDINGS: Targeted ultrasound of the abdomen showed moderate volume ascites. Diagnostic and therapeutic paracentesis performed via left upper quadrant. 1.7 L of serous fluid was aspirated and discarded. Samples of the fluid were sent for laboratory assays. Impression: Diagnostic and therapeutic paracentesis performed via left upper quadrant. 1.7 L of serous fluid was aspirated and discarded. Samples of the fluid were sent for laboratory assays. Echocardiogram dobutamine stress test (DSE) Result Date: 04/18/2024 Narrative: Patient achieved a peak HR of 160 bpm (102% APMHR) with 40 mcg of dobutamine and 0.5 mg of atropine. No ECG evidence of ischemia. Normal dobutamine stress echocardiogram with normal augmentation in LV contractility in all segments. Estimated peak stress LVEF >75%. CT Chest without Contrast Result Date: 04/17/2024 Narrative: Indication: liver transplant hari;, Comparison: No comparison. Dose: For radiation dose control at least one of the following techniques was used in this procedure (1) Automated exposure control (2) Adjustment of the mA and/or kV according to patient size (3) Use of iterative reconstruction technique. Findings: Neck and thoracic inlet: No abnormality. Mediastinum and large vessels: Aorta Mild aortic wall calcifications. Pulmonary arteries Unremarkable shape and diameter. Esophagus Patulous esophagus. Other mediastinal findings No other abnormal mediastinal findings are present. Heart: Cardiac size Moderate cardiomegaly. Coronary arteries Mild coronary calcifications. Valves No valvular calcifications. Pericardium No abnormality. Lymph nodes: Supraclavicular and axillary Normal sized lymph nodes, no enlarged lymph nodes. Mediastinal Normal sized lymph nodes, no enlarged lymph nodes. Hilar Unremarkable hilar contours. The absence of intravenous contrast limits the evaluation for adenopathy. Others None. Lung parenchyma: Moderate respiratory motion. Minimal right and moderate left pleural effusion, with areas of adjacent atelectasis. Atelectasis are also present in the anterior parts of the left and right basal lung. No larger pulmonary nodules or masses. No diffuse lung disease in the well ventilated parts of the lung parenchyma. Airways:The central airways are patent. Pleura: See above. Upper abdomen: Please see report of the dedicated abdominal CT examination performed today. Chest wall and bones: Moderate degenerative vertebral disease. Impression: Impression: Minimal right and moderate left pleural effusion, with bilateral adjacent areas of lung parenchymal atelectasis. No larger abnormalities in the well ventilated parts of the lung parenchyma. No adenopathy, the central airways are patent. Moderate cardiomegaly with mild coronary calcifications. If this radiology report contains a blank impression section, it is an incompleteradiology report. Please contact the interpreting radiologist or applicable radiology division as soon as possible to obtain the completed interpretation. Workstation ID: [id number] ED POCUS Abdominal Single Organ Impression: Exam Information A [id number] ultrasound was performed to assess the anatomy of the abdomen and evaluate for pathology such as small bowel obstruction or ascites or other pathology as noted below in this patient.. Indication(s) for Exam The exam was performed with the following indications: Abdominal pain Views Obtained Images Saved for These Views Multiple real-time sonographic images were obtained of the abdomen using curvilinear and/or linear multi-Hz transducers. Findings Is free fluid present Yes Dilated loops of small bowel greater than 2.5cm N/A not evaluated on this limited ultrasound Peristalsis visualized N/A not evaluated on this limited ultrasound Impression . Intraperitoneal Free Fluid . All images have been reviewed by me and I agree with or have changed the resident???s findings as written above Limited ultrasounds performed in the Emergency Department are performed by emergency physicians at the patients bedside to address specific clinical questions. Add itional imaging or testing may be required. Electronically signed by Marc Lopez MD on [phone] Electronically signed by Tomás Durham MD on [id number] [email or web address] ECG 12 lead Impression: NORMAL SINUS RHYTHM CANNOT RULE OUT ANTERIOR INFARCT , AGE UNDETERMINED ABNORMAL ECG NOPREVIOUS ECGS AVAILABLE Confirmed by Ovidio Vaughn ([id number]) on 04/15/2024 3:19:[address] Abd Pelvis WO Contrast Result Date: 04/11/2024 Narrative: COMPARISON: 01/29/2024 FINDINGS: ABSENCE OF INTRAVENOUS CONTRAST DECREASES SENSITIVITY FOR DETECTION OF FOCAL LESIONS AND VASCULAR PATHOLOGY. LOWER THORAX: There is basilar atelectasis. HEPATOBILIARY: Cirrhotic liver morphology without focal lesion within noncontrast confines. The gallbladder is collapsed with a cholecystostomy tube present in satisfactory position. Multiple stones areseen without definite evidence of cholecystitis.. SPLEEN: Spleen is enlarged measuring 14.7 cm. PANCREAS: No focal masses or ductal dilatation. ADRENALS: No adrenal nodules. KIDNEYS/URETERS: Punctateintrarenal stones are seen on the left. No hydronephrosis or ureteral calculus. PELVIC ORGANS/BLADDER: Conteh catheter is present within a collapsed urinary bladder. PERITONEUM / RETROPERITONEUM: There is large volume ascites. No organized abscess. No free air. LYMPH NODES: No lymphadenopathy. VESSELS: There is atherosclerosis of the visualized arterial system.. GI TRACT: No distention or wall thickening. BONES AND SOFT TISSUES: There are scattered degenerative changes. No acute fracture or suspicious lesion is identified. . Impression: Cirrhosis with large volume ascites and splenomegaly. Cholelithiasis with collapsed gallbladder and cholecystostomy tube in place If this radiology report contains a blank impression section, it is an incomplete radiology report. Please contact the interpreting radiologist or applicableradiology division as soon as possible to obtain the completed interpretation. Workstation ID: [id number] US Limited Abdomen Single Org Result Date: 04/11/2024 Narrative: EXAMINATION: Limited ultrasound of the abdomen. INDICATION: Vertebral quadrant pain withknown cholecystitis TECHNIQUE: Limited ultrasound evaluation of the right upper quadrant of the abdomen. Multiple grayscale and color Doppler images were obtained. COMPARISON: MRI from 01/30/2024 FINDINGS: LIVER: The liver is heterogeneous and nodular in morphology consistent with cirrhosis. No focal lesions. The portal vein is patent on color Doppler with hepatopetal flow. BILIARY: The gallbladder is collapsed with shadowing echogenic debris likely representing stones. The common bile duct measures 5 mm. PANCREAS: Visualized portions are unremarkable. PERITONEUM: There is large volume ascites RIGHT KIDNEY: Normal size, measuring 11.5 cm. No hydronephrosis or solid mass. No sonographically evident calculi. MIDLINE VASCULATURE: The visualized portion of the inferior vena cava is patent. The visualized portion of the abdominal aorta is normal. Impression: Collapsed, stone-filled gallbladder. Cirrhosis and large volume ascites. If this radiology report contains a blank impression section, it is an incomplete radiology report. Please contactthe interpreting radiologist or applicable radiology division as soon as possible to obtain the completed interpretation. Workstation ID: [id number] X-Ray Chest 1 View Result Date: 04/11/2024 Narrative: COMPARISON: None FINDINGS: Lines/Tubes: None. Lungs: The lungs are well-aerated without evidence of pneumonia or pulmonary edema. Low lung volumes. Bibasilar atelectasis. Pleura: No pleural effusion or pneumothorax. Heart and Mediastinum: The cardiac and mediastinal contours are normal. Bones: The included skeleton is unremarkable. Impression: No acute pulmonary process. If this radiology report contains a blank impression section, it is an incomplete radiology report. Please contact the interpreting radiologist or applicable radiology division as soon as possible to obtain the completed interpretation. Workstation ID: [id number] GLOBAL PLAN OF CARE CONSULTS: IP CONSULT TO INFECTIOUS DISEASE - TRANSPLANT IP CONSULT TO IV THERAPY NURSE IP CONSULT TO IV THERAPY NURSE IP CONSULT TO IV THERAPY NURSE PROCEDURES: Procedures Performed During Hospitalization Procedure(s): ENDOSCOPIC RETROGRADE CHOLANGIOPANCREATOGRAPHY, DIAGNOSTIC WITH POSSIBLE BRUSHING OR WASHING AND POSSIBLE MODERATE SEDATION Procedures Performed During Hospitalization Procedure(s): ENDOSCOPIC RETROGRADE CHOLANGIOPANCREATOGRAPHY, DIAGNOSTIC WITH POSSIBLE BRUSHING OR WASHING AND POSSIBLE MODERATE SEDATION CONDITION: Fair ADVANCED CARE PLANNING Code Status: Full Code Medical Decision Maker: Medical Decision Maker: Other - Reviewed/Updated Capacity to make own decisions and HCA Why does patient lack capacity?: Encephalopathy/Delirium What is the anticipated duration the HCP will be invoked?: Unknown/Until condition resolves I saw and evaluated the patient on the date of discharge. Signature: Alexei Lepe MD PGY-2 Electronic Signature Cosigned by Delmis Joseph MD at 05/03/2024 3:11 PM EST Associated attestation - Delmis Joseph MD - 05/03/2024 3:11 PM EST I spent 30 minutes performing discharge day services (e.g. examination, discussion of hospital course, follow up care and planning) as appropriate Nate Correa : 1960 CSN: [id number] Delmis Joseph MD documented in this encounter Discharge Instructions * Discharge Instructions* Alexei Lepe MD - 05/03/2024 11:17 AM EST It is important that you take your medications exactly as prescribed. If you experience any of the following problems please call your primary care provider or report tothe emergency department nearest to your location: fever, abdominal pain, chest pain, chest pressure, shortness of breath, difficulty breathing, nausea, fainting spells. If you have any questions, please call [facility] at [phone]. Diet: you may resume your low sodium, high protein diet. Activity: you may resume your normal activity level. The following appointments have been made: Future Appointments Date Time Provider Department Center 07/08/2024 4:30 PM Mike Low MD [facility] It is very important that you make all of your appointments. documented in this encounter Medications at Time of Discharge acetaminophen (TYLENOL) 500 mg tablet Take 500 mg by mouth every 6 hours as needed for pain. polyethylene glycol 3350 (MIRALAX) 17 gram packet Take 1 packet (17 g total) by mouth daily as needed for constipation. Mix powder in 4 to 8 oz of water, juice, coffee, or tea prior to administratio n. 30 packet 04/19/2024 05/15/2024 traZODone (DESYREL) 50 mg tablet Take 1 tablet (50 mg total) by mouth nightly as needed for sleep. 30 tablet 04/19/2024 12:03 PM EST 04/19/2024 05/15/2024 documented as of this encounter Progress Notes * Damaris Enriquez MD - 05/02/2024 7:24 AM EST Progress Note Subjective CHIEF COMPLAINT: Abdominal discomfort, paracentesis positive for SBP 24 HOUR INTERVAL HISTORY: -NAONE -VSS -K 3.3, Mg 1.8 -Alk phos 159 > 191, ALT 37 > 50, AST 63 > 81 The patient seen and evaluated at bedside. Expressed gratitude for getting procedure that is scheduled for today. No abdominal pain as he has been NPO. Wants to get back to work as soon as possible. Continues to refuse lactulose as he wants to have a BM without it. Denies fevers, chills, nausea, vomiting, SOB, palpitations. MEDICATIONS: All medications reviewed. Objective Temp: [36.3 ??C (97.3 ??F)-36.5 ??C (97.7 ??F)] 36.3 ??C (97.3 ??F) Heart Rate: [68-82] 82 Resp: [18] 18 BP: (105-123)/(67-82) 105/69 SpO2: [92 %-100 %] 92 % Physical Exam GENERAL: NAD, sitting in bed HEENT: EOMI. Conjunctivae non-ictereric. mmm Pulm: Decrease BS at b/l bases, CTABL CV: RRR, -mrg SKIN: No rashes seen on visible skin GI: Soft, distended, general mild abd tenderness worst in RUQ, -rebound/guarding MSK: No clubbing or cyanosis. No joint swelling, tenderness, effusions. No pedal edema. NEURO: Alert oriented x 3. No gross deficits. PSYCH: Normal mood and affect. Result Review Recent Results (from the past 24 hours) Basic Metabolic Panel Collection Time: 05/02/24 4:10 AM Specimen: Venous, Peripheral; Blood Result Value Ref Range NA 135 135 - 145 mmol/L K 3.3 (L) 3.5 - 5.3 mmol/L Cl 104 98 - 107 mmol/L CO2 19 (L) 22 - 32 mmol/L BUN 16 7 - 23 mg/dL Creatinine 0.53 (L) 0.60 - 1.30 mg/dL Glucose 125 (H) 65 - 99 mg/dL Calcium 8.3 (L) 8.6 - 10.5 mg/dL Anion Gap 12 5 - 15 eGFR >90 >=60 mL/min/1.73m2 Magnesium Collection Time: 05/02/24 4:10 AM Specimen: Venous, Peripheral; Blood Result Value Ref Range MG 1.8 1.6 - 2.4 mg/dL Protime-INR Collection Time: 05/02/24 4:10 AM Specimen: Venous, Peripheral; Blood Result Value Ref Range PT 16.2 (H) 9.6 - 12.4 Seconds INR 1.5 0.9 - 1.1 Hepatic function panel Collection Time: 05/02/24 4:10 AM Specimen: Venous, Peripheral; Blood Result Value Ref Range Total Protein 6.3 6.0 - 8.0 g/dL Albumin 3.2 (L) 3.5 - 5.2 g/dL Globulin, Total 3.1 2.1 - 4.2 g/dL Bilirubin, Total 2.2 (H) 0.2 - 1.2 mg/dL Bilirubin, Direct 1.3 (H) <=0.4 mg/dL Alkaline Phosphatase 191 (H) 35 - 129 U/L AST 81 (H) 10 - 40 U/L ALT 50 (H) 10 - 40 U/L Bilirubin, Indirect 0.90 (H) <=0.70 mg/dL A/G Ratio 1.0 (L) 1.5 - 3.0 CBC Auto Differential Collection Time: 05/02/24 4:11 AM Specimen: Venous, Peripheral; Blood Result Value Ref Range WBC 4.1 3.8 - 10.8 10*3/uL RBC 3.57 (L) 4.20 - 5.80 10*6/uL Hemoglobin 11.3 (L) 13.2 - 17.1 g/dL Hematocrit 32.6 (L) 38.5 - 50.0 % MCV 91.3 80.0 - 100.0 fL MCH 31.7 27.0 - 33.0 pg MCHC 34.7 32.0 - 36.0 g/dL RDW 16.6 (H) 11.0 - 15.0 % Platelets 80 (L) 140 - 400 10*3/uL MPV 10.1 7.5 - 12.5 fL nRBC % 0.0 /100 WBCs nRBC # <0.01 <0.01 10*3/uL Manual Differential Collection Time: 05/02/24 4:11 AM Specimen: Venous, Peripheral; Blood Result Value Ref Range Neutrophil %, Manual 86 % Band % 1 0 - 7 % Lymphocyte %, Manual 9 % Monocyte %, Manual 4 % Eosinophil %, Manual 0 % Basophil %, Manual 0 % Total Neutrophil #, Manual 3.57 1.50 - 7.80 10*3/uL Bands #,Manual 0.04 10*3/uL Total Lymph #, Manual 0.37 (L) 0.85 - 3.90 10*3/uL Monocyte #, Manual 0.16 (L) 0.20 - 0.95 10*3/uL Eosinophil #, Manual 0.00 (L) 0.02 - 0.50 10*3/uL Basophil #, Manual 0.00 0.00 - 0.20 10*3/uL Platelet Estimate Decreased (A) Adequate RBC Morphology Present (A) Normal, No clinically significant RBC morphology present (ICSH guidelines, 2015). [place] Cells 2+ (A) Not Present Total Cells Counted 115 Imaging/Other Studies No radiology results in the last 2 days Assessment & Plan Principal Problem: SBP (spontaneous bacterial peritonitis) (HCC) Active Problems: Decompensated cirrhosis (HCC) Sepsis (HCC) Hyperlipidemia Moderate protein-calorie malnutrition (CMS/HCC) Hyponatremia Assessment & Plan SBP (spontaneous bacterial peritonitis) (HCC) More likely to be secondary bacterial peritonitis as he recently had a hospitalization 04/11-04/19 for clogged percutaneous cholecystectomy tube causing septic shock from secondary bacterial peritonitis. Growing Klebsiella at the time resistant to ampicillin only. He has a percutaneous cholecystectomy tube placed Jan 2024 due to cholecystitis and acute on chronic liver failure at the time precluding cholecystectomy. S/p CTX in ED x1 followed by vancomycin and zosyn, vanco discontinued on 04/27. Paracentesis completed 04/29 with 1.6L fluid removed. ERCP completed 04/30 with difficult cannulation. CBD stent placed with plan for transcystic stenting and stent exchange on repeat ERCP (05/02) Workup: Bcx: NGTD CXR: dense consolidation collapse and effusion at left lung base UA: no bacteria MRSA/Staph aureus negative TNC/WBC: 363 Peritoneal fluid Cx: pending - Transplant ID following - Repeat ERCP 05/02 for stent exchange and transcystic stent placement - CLD post procedure then ADAT tomorrow (04/02) - s/p vanc iso negative blood cx and neg MRSA (04/25-04/27) - s/p Zosyn (D1: 04/24-04/27) - Continue ceftriaxone (D1: 04/28-), 7-10 day course total and through procedures - Transition to ciprofloxacin 500 mg daily for SBP prophylaxis after completing ceftriaxone - Flush drain 3 times a day - Continue acetaminophen 650 q4h PRN - Monitor for pancreatitis, bleeding, perforation, and cholangitis post ERCP Sepsis (HCC) Sepsis with WBC 21, tachycardia, and tachypnea. Source confirmed SBP. Will send for other infectious workup (CXR, UA with culture reflex, BCX pending). Holding off on fluid resuscitation given adequate BP and volume overload at baseline necessitating daily diuretics as well as hyponatremia. Startedon abx as above. Reduced lactic acid clearance likely iso hepatic dysfunction (3.3>>>1.6) that improved with albumin administration. 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 Previous decompensations of ascites, SBP on ppx, HE. Follows withDrSor[facility] Low outpatient. Somewhat of a recent diagnosis Jan 2024. Initially at that time his MELD was 35 but downtrended to 14 on discharge. On day of admission, was instructed to hold home diuretics iso hyponatremia. MELD 3.0: 15 at 05/02/2024 4:10 AM MELD-Na: 16 at 05/02/2024 4:10 AM Calculated from: Serum Creatinine: 0.53 mg/dL (Using min of 1 mg/dL) at 05/02/2024 4:10 AM Serum Sodium: 135 mmol/L at 05/02/2024 4:10 AM Total Bilirubin: 2.2 mg/dL at 05/02/2024 4:10 AM Serum Albumin: 3.2 g/dL at 05/02/2024 4:10 AM INR(ratio): 1.5 at 05/02/2024 4:10 AM Age at listing (hypothetical): 63 years Sex: Male at 05/02/2024 4:10 AM Decompensation history Varices: unknown, needs screening EGD Ascites: on diuretics as above. Para outpatient with IR on day of admission draining 1.7L and totalhad 3 radha (04/14 draining about 5L, 04/18 about 5L, and day of admission), 04/29 1.6 L removed although noted to be loculated HE: history of HE, now on lactulose and rifaximin SBP: yes most recently earlier this month Workup: CT 3 Phase: no focal liver lesions, splenic enlargement, gastric fundal and paraesophageal varices.No gross ascites. Moderate left-sided pleural effusion. Plan Diuresis: continue lasix 40mg daily, hold spironolactone 50mg daily, resume home regimen at discharge Encephalopathy: continue home lactulose, continue rifaximin (appears to have been added day of arrival in clinic) Continue home midodrine Abx as above for SBP Low salt, high protein diet S/p Albumin 1.5g/kg D1 04/25, albumin 1g/kg D3 for fluid overload IR consult for outpatient TIPS for refractory ascites PT/OT consult Hyponatremia Presentated with Na 127, improved with albumin administration. - Home diuretics as above - Outpatient fluid restriction of 1.2L liberalized iso sepsis Hyperlipidemia Pt states not taking simvastatin 5mg daily Moderate protein-calorie malnutrition (CMS/HCC) High protein diet, protein shakes. Pt says he does not like Ensure. GLOBAL PLAN OF CARE FLUIDS AND NUTRITION FLUIDS: NUTRITION: Diet, NPO Sips with meds, Ice chips VTE PROPHYLAXIS Enoxaparin Has order for no Mechanical VTE/DVT Prophylaxis ADVANCED CARE PLANNING Code Status: Full Code Medical Decision Maker: Medical Decision Maker: Other - Reviewed/Updated Capacity to make own decisions and HCA Why does patient lack capacity?: Encephalopathy/Delirium What is the anticipated duration the HCP will be invoked?: Unknown/Until condition resolves Signature: Damaris Enriquez MD PGY-1 Electronic Signature Cosigned by Delmis Joseph MD at 05/03/2024 1:23 PM EST Associated attestation - Delmis Joseph MD - 05/03/2024 1:23 PM EST Patient is a 63 yr old man with ALD cirrhosis who was recently discharged after SBP. He is readmitted with recurrent SBP 1. SBP: on IV ceftraxone Will get IV albumin. Fluid removed, WBC count improved 2.Biliary issues: cholecystostomy tube leaking. ERCP done covered stent placed. Repeat ERCP today 3. Decompensated cirrhosis : MELD 20. Will be presented at transplant meeting this . May benefit from TIPS Discussed with transplant surgery, IR and patient patient was present at transplant section committee meeting today. Listed for transplant. I saw and evaluated the patient. Case discussed with the resident/fellow and I agree with the findings and plan as documented in the resident's/fellow's note. I have personally reviewed the radiology images Delmis Joseph MD * Damaris Enriquez MD - 05/01/2024 7:44 AM EST Progress Note Subjective CHIEF COMPLAINT: Abdominal discomfort, paracentesis positive for SBP 24 HOUR INTERVAL HISTORY: -NAONE -Nursing concerned biliary drain moved, but still with output -Per IR, cleared for outpt TIPS -Plan for repeat ERCP 05/02 -Per PT, cleared for home discharge -VSS -Peritoneal Cx: NGTD The patient seen and evaluated at bedside. Continues to feel well with reduced abdominal pain. Notes some discomfort when eating large meals, and has been focusing on eating smaller portions of high-protein food. This seems to help with the abdominal discomfort. He has been able to walk and climb stairs without concern. He notes that he collects firewood at home and is able to do tasks without difficulty. 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 Looking forward to ERCP and potential discharge tomorrow. Denies fevers, chills, nausea, vomiting, SOB, palpitations. MEDICATIONS: All medications reviewed. Objective Temp: [36.7 ??C (98.1 ??F)-37 ??C (98.6 ??F)] 37 ??C (98.6 ??F) Heart Rate: [63-77] 77 Resp: [17-19] 17 BP: (93-97)/(53-62) 96/62 SpO2: [93 %-95 %] 95 % Physical Exam GENERAL: NAD, sitting up in bed. HEENT: EOMI. Conjunctivae non-ictereric. mmm Pulm: Decrease BS at b/l bases mild diffuse crackles CV: RRR, -mrg SKIN: No rashes seen on visible skin GI: Soft, distended, general mild abd tenderness worst in RUQ, -rebound/guarding MSK: No clubbing or cyanosis. No joint swelling, tenderness, effusions. No pedal edema. NEURO: Alert oriented x 3. No gross deficits. PSYCH: Normal mood and affect. Result Review Recent Results (from the past 24 hours) CBC Collection Time: 04/30/24 2:56 PM Specimen: Venous, Peripheral; Blood Result Value Ref Range WBC 8.0 3.8 - 10.8 10*3/uL RBC 3.67 (L) 4.20 - 5.80 10*6/uL Hemoglobin 11.6 (L) 13.2 - 17.1 g/dL Hematocrit 34.3 (L) 38.5 - 50.0 % MCV 93.5 80.0 - 100.0 fL MCH 31.6 27.0 - 33.0 pg MCHC 33.8 32.0 - 36.0 g/dL RDW 16.5 (H) 11.0 - 15.0 % Platelets 98 (L) 140 - 400 10*3/uL MPV 10.6 7.5 - 12.5 fL Smear Review Collection Time: 04/30/24 2:56 PM Specimen: Venous, Peripheral; Blood Result Value Ref Range Platelet Estimate Decreased (A) Adequate RBC Morphology Present (A) Normal, No clinically significant RBC morphology present (ICSH guidelines, 2015). Anisocytosis 2+ (A) Not Present Macrocytes 2+ (A) Not Present Acanthocytes 2+ (A) Not Present [place] Cells 2+ (A) Not Present Basic Metabolic Panel Collection Time: 05/01/24 3:51 AM Specimen: Venous, Peripheral; Blood Result Value Ref Range NA 134 (L) 135 - 145 mmol/L K 3.8 3.5 - 5.3 mmol/L Cl 104 98 - 107 mmol/L CO2 18 (L) 22 - 32 mmol/L BUN 20 7 - 23 mg/dL Creatinine 0.67 0.60 - 1.30 mg/dL Glucose 154 (H) 65 - 99 mg/dL Calcium 8.5 (L) 8.6 - 10.5 mg/dL Anion Gap 12 5 - 15 eGFR >90 >=60 mL/min/1.73m2 Magnesium Collection Time: 05/01/24 3:51 AM Specimen: Venous, Peripheral; Blood Result Value Ref Range MG 1.9 1.6 - 2.4 mg/dL CBC Auto Differential Collection Time: 05/01/24 3:51 AM Specimen: Venous, Peripheral; Blood Result Value Ref Range WBC 8.8 3.8 - 10.8 10*3/uL RBC 3.72 (L) 4.20 - 5.80 10*6/uL Hemoglobin 11.6 (L) 13.2 - 17.1 g/dL Hematocrit 34.1 (L) 38.5 - 50.0 % MCV 91.7 80.0 - 100.0 fL MCH 31.2 27.0 - 33.0 pg MCHC 34.0 32.0 - 36.0 g/dL RDW 16.4 (H) 11.0 - 15.0 % Platelets 117 (L) 140 - 400 10*3/uL MPV 10.3 7.5 - 12.5 fL Neutrophil % 78.5 % Immature Grans % 0.5 0.0 - 0.9 % Lymphocyte % 8.1 % Monocyte % 12.7 % Eosinophil % 0.0 % Basophil % 0.2 % Neutrophil # 6.92 1.50 - 7.80 10*3/uL Immature Grans # 0.04 (H) <=0.03 10*3/uL Lymphocyte # 0.70 (L) 0.85 - 3.90 10*3/uL Monocyte # 1.10 (H) 0.20 - 0.95 10*3/uL Eosinophil # <0.03 0.02 - 0.50 10*3/uL Basophil # <0.03 0.00 - 0.20 10*3/uL nRBC % 0.0 /100 WBCs nRBC # <0.01 <0.01 10*3/uL Protime-INR Collection Time: 05/01/24 3:51 AM Specimen: Venous, Peripheral; Blood Result Value Ref Range PT 16.6 (H) 9.6 - 12.4 Seconds INR 1.6 0.9 - 1.1 Hepatic function panel Collection Time: 05/01/24 3:51 AM Specimen: Venous, Peripheral; Blood Result Value Ref Range Total Protein 6.6 6.0 - 8.0 g/dL Albumin 3.4 (L) 3.5 - 5.2 g/dL Globulin, Total 3.2 2.1 - 4.2 g/dL Bilirubin, Total 2.3 (H) 0.2 - 1.2 mg/dL Bilirubin, Direct 1.5 (H) <=0.4 mg/dL Alkaline Phosphatase 159 (H) 35 - 129 U/L AST 63 (H) 10 - 40 U/L ALT 37 10 - 40 U/L Bilirubin, Indirect 0.80 (H) <=0.70 mg/dL A/G Ratio 1.1 (L) 1.5 - 3.0 Imaging/Other Studies No radiology results in the last 2 days Assessment & Plan Principal Problem: SBP (spontaneous bacterial peritonitis) (HCC) Active Problems: Decompensated cirrhosis (HCC) Sepsis (HCC) Hyperlipidemia Moderate protein-calorie malnutrition (CMS/HCC) Hyponatremia Assessment & Plan SBP (spontaneous bacterial peritonitis) (HCC) More likely to be secondary bacterial peritonitis as he recently had a hospitalization 04/11-04/19 for clogged percutaneous cholecystectomy tube causing septic shock from secondary bacterial peritonitis. Growing Klebsiella at the time resistant to ampicillin only. He has a percutaneous cholecystectomy tube placed Jan 2024 due to cholecystitis and acute on chronic liver failure at the time precluding cholecystectomy. S/p CTX in ED x1 followed by vancomycin and zosyn, vanco discontinued on 04/27. Paracentesis completed 04/29 with 1.6L fluid removed. ERCP completed 04/30 with difficult cannulation. CBD stent placed with plan for transcystic stenting and stent exchange on repeat ERCP. Workup: Bcx: NGTD CXR: dense consolidation collapse and effusion at left lung base UA: no bacteria MRSA/Staph aureus negative TNC/WBC: 363 Peritoneal fluid Cx: pending - Transplant ID following - s/p vanc iso negative blood cx and neg MRSA (04/25-04/27) - s/p Zosyn (D1: 04/24-04/27) - Continue ceftriaxone (D1: 04/28-), 7-10 day course total and through procedures - Per ID, transition to ciprofloxacin 500 mg daily for SBP prophylaxis after completing ceftriaxone - Flush drain 3 times a day - Continue acetaminophen 650 q4h PRN - Repeat ERCP 05/02 for stent exchange and transcystic stent placement, NPO @ [facility] - Monitor for pancreatitis, bleeding, perforation, and cholangitis post ERCP Sepsis (HCC) Sepsis with WBC 21, tachycardia, and tachypnea. Source confirmed SBP. Will send for other infectious workup (CXR, UA with culture reflex, BCX pending). Holding off on fluid resuscitation given adequate BP and volume overload at baseline necessitating daily diuretics as well as hyponatremia. Startedon abx as above. Reduced lactic acid clearance likely iso hepatic dysfunction (3.3>>>1.6) that improved with albumin administration. 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 Previous decompensations of ascites, SBP on ppx, HE. Follows withDr. Low outpatient. Somewhat of a recent diagnosis Jan 2024. Initially at that time his MELD was 35 but downtrended to 14 on discharge. On day of admission, was instructed to hold home diuretics iso hyponatremia. MELD 3.0: 16 at 05/01/2024 3:51 AM MELD-Na: 17 at 05/01/2024 3:51 AM Calculated from: Serum Creatinine: 0.67 mg/dL (Using min of 1 mg/dL) at 05/01/2024 3:51 AM Serum Sodium: 134 mmol/L at 05/01/2024 3:51 AM Total Bilirubin: 2.3 mg/dL at 05/01/2024 3:51 AM Serum Albumin: 3.4 g/dL at 05/01/2024 3:51 AM INR(ratio): 1.6 at 05/01/2024 3:51 AM Age at listing (hypothetical): 63 years Sex: Male at 05/01/2024 3:51 AM Decompensation history Varices: unknown, needs screening EGD Ascites: on diuretics as above. Para outpatient with IR on day of admission draining 1.7L and totalhad 3 radha (04/14 draining about 5L, 04/18 about 5L, and day of admission) HE: history of HE, now on lactulose and rifaximin SBP: yes most recently earlier this month Workup: CT 3 Phase: no focal liver lesions, splenic enlargement, gastric fundal and paraesophageal varices.No gross ascites. Moderate left-sided pleural effusion. Plan Diuresis: continue lasix 40mg daily, hold spironolactone 50mg daily Encephalopathy: continue home lactulose, continue rifaximin (appears to have been added day of arrival in clinic) Continue home midodrine Abx as above for SBP Low salt, high protein diet S/p Albumin 1.5g/kg D1 04/25, albumin 1g/kg D3 for fluid overload IR consult for outpatient TIPS for refractory ascites Hyponatremia Presentated with Na 127, improved with albumin administration. - Home diuretics as above - Outpatient fluid restriction of 1.2L liberalized iso sepsis Hyperlipidemia Pt states not taking simvastatin 5mg daily Moderate protein-calorie malnutrition (CMS/HCC) High protein diet, protein shakes. Pt says he does not like Ensure. GLOBAL PLAN OF CARE FLUIDS AND NUTRITION FLUIDS: NUTRITION: Diet, Adult Full participation; Regular, Other (Specify); High Protein, Sodium Restricted; 2,300 mg Na VTE PROPHYLAXIS Enoxaparin Has order for no Mechanical VTE/DVT Prophylaxis ADVANCED CARE PLANNING Code Status: Full Code Medical Decision Maker: Medical Decision Maker: Other - Reviewed/Updated Capacity to make own decisions and HCA Why does patient lack capacity?: Encephalopathy/Delirium What is the anticipated duration the HCP will be invoked?: Unknown/Until condition resolves Signature: Damaris Enriquez MD PGY-1 Electronic Signature Cosigned by Delmis Joseph MD at 05/01/2024 4:05 PM EST Associated attestation - Delmis Joseph MD - 05/01/2024 4:05 PM EST Patient is a 63 yr old man with ALD cirrhosis who was recently discharged after SBP. He is readmitted with recurrent SBP 1. SBP: on IV ceftraxone Will get IV albumin. Fluid removed, WBC count improved 2.Biliary issues: cholecystostomy tube leaking. ERCP done covered stent placed. He will be booked for repeat ERCP tomorrow for cystic duct placement. 3. Decompensated cirrhosis : MELD 20. Will be presented at transplant meeting this . May benefit from TIPS Discussed with transplant surgery, IR and patient patient was present at transplant section committee meeting today. He will be accepted for listing. I spent a total of 50 minutes on the date of encounter, which included: ?? Preparing to see the patient (e.g., review of test results) ?? Obtaining and/or reviewing separately obtained history ?? Performing a medically appropriate exam and/or evaluation ?? Counseling and educating the patient/family/caregiver ?? Ordering medications, tests, procedures ?? Referring and communicating with other healthcare professionals, when not separately reported ?? Documenting clinical information in the health record ?? Independently interpreting results (not separately reported) and communicating results to the patient/family/caregiver I saw and evaluated the patient. Case discussed with the resident/fellow and I agree with the findings and plan as documented in the resident's/fellow's note. I have personally reviewed the radiology images Delmis Joseph MD * Farhad Santana IV, MD - 04/30/2024 12:10 PM EST Transplant INFECTIOUS DISEASE FOLLOW-UP NOTE INTERVAL HISTORY: No major events overnight. Peritoneal fluid tapped again yesterday, hazy in appearance, with 363 nucleated cells, 50% which were neutrophils, which is down from 1112 on 04/24/2024. Denies fevers, chills, night sweats. His belly is feeling much better this morning. Waiting and getting procedures done and everything cleared out so he can go home. MEDS cefTRIAXone, 2 g, intravenous, q24h THOMAS [On Hold by Provider] enoxaparin, 40 mg, subcutaneous, Daily furosemide, 40 mg, oral, Daily lactulose, 20 g, oral, 3x daily midodrine, 15 mg, oral, q8h THOMAS rifAXIMin, 550 mg, oral, q12h THOMAS sodium chloride, 2.5-10 mL, intravenous, See admin instructions And sodium chloride, 2.5-10 mL, intravenous, q12h THOMAS PHYSICAL EXAM: height is 1.803 m (5' 11 ) and weight is 93 kg (205 lb). His oral temperature is 36.7 ??C (98.1 ??F). His blood pressure is 93/53 and his pulse is 63. His respiration is 18 and oxygen saturation is 93%. Temp (24hrs), Av.7 ??C (98 ??F), Min:36.4 ??C (97.5 ??F), Max:36.9 ??C (98.4 ??F) GEN: Lying in bed, no distress EYES: EOMI, minimally icteric sclera HENT: Atraumatic, moist mucous membranes CARDIO: RRR, no murmur. PULM/CHEST: Breathing comfortably on room air ABD: Mildly distended, nontender, no masses appreciated EXT: Trace edema in lower extremities SKIN: No rash or skin lesions NEURO: No gross deficits appreciated PSYCH: Mood appropriate LABS: Results from last 7 days Lab Units 04/30/24 0401 04/29/24 0430 04/28/24 0530 WBC 10*3/uL 4.3 8.7 10.9* HEMOGLOBIN g/dL 11.4* 11.9* 12.0* HEMATOCRIT % 32.9* 34.5* 35.3* PLATELETS 10*3/uL 76* 93* 111* Estimated Creatinine Clearance: 117.5 mL/min (by C-G formula based on SCr of 0.74 mg/dL). Results from last 7 days Lab Units 04/30/24 0401 04/29/24 0430 04/28/24 1216 SODIUM mmol/L 133* 130* 133* POTASSIUM mmol/L 4.5 3.9 4.0 CHLORIDE mmol/L 105 102 101 CARBON DIOXIDE mmol/L 17* 15* 17* BUN mg/dL 21 20 16 CREATININE mg/dL 0.74 0.88 0.97 CALCIUM mg/dL 8.4* 8.6 9.0 ALBUMIN g/dL 3.1* 3.3* 3.6 TOTAL BILIRUBIN mg/dL 3.7* 5.9* 8.1* ALKALINE PHOSPHATASE U/L 109 109 117 ALT U/L 29 30 35 AST U/L 46* 44* 52* GLUCOSE mg/dL 163* 130* 124* MICROBIOLOGY AND ID TESTS: Blood Cultures Lab Results Component Value Date BCRESULT No growth after 5 days 04/24/2024 BCRESULT No growth after 5 days 04/24/2024 BCRESULT No growth after 5 days 04/11/2024 BCRESULT No growth after 5 days 04/11/2024 BCRESULT No growth after 5 days 04/11/2024 Aerobic and anaerobic Cultures: Culture Date Value Ref Range Status 04/24/2024 No growth Final Aerobic culture: Lab Results Component Value Date ABCRESULT No growth 04/17/2024 ABCRESULT Results Updated 04/13/2024 ABCRESULT Klebsiella pneumoniae (A) 04/13/2024 IMAGING: No new imaging IMPRESSION: Nate Correa is a 63 y.o. male with AUD and EtOH liver cirrhosis, and recent admission due to cholecystitis status post percutaneous shay tube placement with plan for cholecystectomy next week, who presented as a direct admission from his transplant hepatology clinic/surgery clinic due to hypotension. Secondary bacterial peritonitis due to cholecystitis with malfunctioning percutaneous cholecystostomy tube (initially placed on 01/29/2024), pending ERCP for cystic duct stenting Septic shock requiring pressors, resolved Alcohol related liver cirrhosis, decompensated with ascites and splenomegaly, pending TIPS for volume management He is doing well overall at this time. His abdominal pain is resolved, and fluid results show decreasing white blood cell count as well indicating response to therapy. Okay for SBP prophylaxis long-term with transition post internalization of stenting of the cystic ducts and gallbladder. RECOMMENDATIONS: Continue ceftriaxone 2g daily while inpatient or until 7 days total therapy (05/03/24). After discharge/7 days , can transition to ciprofloxacin 500 mg daily for SBP prophylaxis. Can be cleared for transplant once further discussion of cholecystostomy tube is determined Please page if questions. Farhad Santana IV, MD MS Transplant/General Infectious Disease Senior Caregivernewspaper vendor [facility] P: 1961 * Damaris Enriquez MD - 04/30/2024 7:33 AM EST Progress Note Subjective CHIEF COMPLAINT: Abdominal discomfort, paracentesis positive for SBP 24 HOUR INTERVAL HISTORY: -NAONE -Paracentesis and ERCP completed yesterday. -Per GI, ERCP completed 2/ with difficult cannulation. CBD stent placed with plan for transcystic stenting and stent exchange on repeat ERCP. -Nursing noted some blood in stool in am -VSS -Na 133 -WBC 4.3, Hgb 11.4 -TNC/WBC 363, Cx: pending The patient was seen and evaluated at bedside. [place] significantly better after paracentesis and ERCP yesterday with reduced abdominal discomfort and able to move more easily. Looking forward to a rest day today. Denies fevers, chills, nausea, vomiting, SOB, palpitations. MEDICATIONS: All medications reviewed. Objective Temp: [36.4 ??C (97.5 ??F)-36.9 ??C (98.4 ??F)] 36.7 ??C (98 ??F) Heart Rate: [87-98] 87 Resp: [0-48] 18 BP: (91-128)/(53-107) 115/74 SpO2: [92 %-100 %] 95 % Set FiO2 (O2%): [0 %-100 %] 0 % Physical Exam GENERAL: NAD, sitting up in bed. HEENT: EOMI. Conjunctivae non-ictereric. mmm Pulm: Decrease BS at b/l bases mild diffuse crackles CV: RRR, -mrg SKIN: No rashes seen on visible skin GI: Soft, distended, general mild abd tenderness worst in RUQ, -rebound/guarding MSK: No clubbing or cyanosis. No joint swelling, tenderness, effusions. No pedal edema. NEURO: Alert oriented x 3. No gross deficits. PSYCH: Normal mood and affect. Result Review Recent Results (from the past 24 hours) Cell Count w/Differential, Peritoneal Collection Time: 04/29/24 10:15 AM Specimen: Peritoneum; Peritoneal Fluid Result Value Ref Range Color, Peritoneal Yellow Colorless, Yellow, Straw Appearance, Peritoneal Hazy (A) Clear TNC/WBC, Peritoneal 363 (H) <=250 cells/mm3 RBC, Peritoneal 3,000 Not established cells/mm3 Neutrophils %, Peritoneal 58 % Lymphocytes %, Peritoneal 24 % [place]/Macrophage %, Peritoneal 17 % Basophil %, Peritoneal 1 % Mesothelial %, Peritoneal 1 % Differential Cells Counted, Peritoneal 102 STAT Gram Stain Collection Time: 04/29/24 10:15 AM Specimen: Peritoneal; Body Fluid Result Value Ref Range Gram Stain, STAT No organisms seen Gram Stain, STAT 3+ Polymorphonuclear leukocytes Gram Stain, STAT 2+ Mononuclear Cells Extra Container, Other Collection Time: 04/29/24 10:15 AM Specimen: Venous, Peripheral; Blood Result Value Ref Range Extra Tube Hold for add-ons. Basic Metabolic Panel Collection Time: 04/30/24 4:01 AM Specimen: Venous, Peripheral; Blood Result Value Ref Range NA 133 (L) 135 - 145 mmol/L K 4.5 3.5 - 5.3 mmol/L Cl 105 98 - 107 mmol/L CO2 17 (L) 22 - 32 mmol/L BUN 21 7 - 23 mg/dL Creatinine 0.74 0.60 - 1.30 mg/dL Glucose 163 (H) 65 - 99 mg/dL Calcium 8.4 (L) 8.6 - 10.5 mg/dL Anion Gap 11 5 - 15 eGFR >90 >=60 mL/min/1.73m2 Magnesium Collection Time: 04/30/24 4:01 AM Specimen: Venous, Peripheral; Blood Result Value Ref Range MG 2.1 1.6 - 2.4 mg/dL CBC Auto Differential Collection Time: 04/30/24 4:01 AM Specimen: Venous, Peripheral; Blood Result Value Ref Range WBC 4.3 3.8 - 10.8 10*3/uL RBC 3.54 (L) 4.20 - 5.80 10*6/uL Hemoglobin 11.4 (L) 13.2 - 17.1 g/dL Hematocrit 32.9 (L) 38.5 - 50.0 % MCV 92.9 80.0 - 100.0 fL MCH 32.2 27.0 - 33.0 pg MCHC 34.7 32.0 - 36.0 g/dL RDW 16.3 (H) 11.0 - 15.0 % Platelets 76 (L) 140 - 400 10*3/uL MPV 10.5 7.5 - 12.5 fL nRBC % 0.0 /100 WBCs nRBC # <0.01 <0.01 10*3/uL Protime-INR Collection Time: 04/30/24 4:01 AM Specimen: Venous, Peripheral; Blood Result Value Ref Range PT 17.8 (H) 9.6 - 12.4 Seconds INR 1.7 0.9 - 1.1 Hepatic function panel Collection Time: 04/30/24 4:01 AM Specimen: Venous, Peripheral; Blood Result Value Ref Range Total Protein 5.9 (L) 6.0 - 8.0 g/dL Albumin 3.1 (L) 3.5 - 5.2 g/dL Globulin, Total 2.8 2.1 - 4.2 g/dL Bilirubin, Total 3.7 (H) 0.2 - 1.2 mg/dL Bilirubin, Direct 2.1 (H) <=0.4 mg/dL Alkaline Phosphatase 109 35 - 129 U/L AST 46 (H) 10 - 40 U/L ALT 29 10 - 40 U/L Bilirubin, Indirect 1.60 (H) <=0.70 mg/dL A/G Ratio 1.1 (L) 1.5 - 3.0 Manual Differential Collection Time: 04/30/24 4:01 AM Specimen: Venous, Peripheral; Blood Result Value Ref Range Neutrophil %, Manual 94 % Lymphocyte %, Manual 1 % Monocyte %, Manual 4 % Eosinophil %, Manual 0 % Basophil %, Manual 0 % Reactive Lymphocyte % 1 0 - 6 % Total Neutrophil #, Manual 4.04 1.50 - 7.80 10*3/uL Total Lymph #, Manual 0.09 (L) 0.85 - 3.90 10*3/uL Monocyte #, Manual 0.17 (L) 0.20 - 0.95 10*3/uL Eosinophil #, Manual 0.00 (L) 0.02 - 0.50 10*3/uL Basophil #, Manual 0.00 0.00 - 0.20 10*3/uL Reactive Lymphocytes # 0.04 10*3/uL Platelet Estimate Decreased (A) Adequate RBC Morphology Present (A) Normal, No clinically significant RBC morphology present (ICSH guidelines, 2015). Anisocytosis 2+ (A) Not Present Acanthocytes 2+ (A) Not Present [place] Cells 3+ (A) Not Present Total Cells Counted 115 Imaging/Other Studies No radiology results in the last 2 days Assessment & Plan Principal Problem: SBP (spontaneous bacterial peritonitis) (HCC) Active Problems: Decompensated cirrhosis (HCC) Sepsis (HCC) Hyperlipidemia Moderate protein-calorie malnutrition (CMS/HCC) Hyponatremia Assessment & Plan SBP (spontaneous bacterial peritonitis) (HCC) More likely to be secondary bacterial peritonitis as he recently had a hospitalization 04/11-04/19 for clogged percutaneous cholecystectomy tube causing septic shock from secondary bacterial peritonitis. Growing Klebsiella at the time resistant to ampicillin only. He has a percutaneous cholecystectomy tube placed Jan 2024 due to cholecystitis and acute on chronic liver failure at the time precluding cholecystectomy. S/p CTX in ED x1 followed by vancomycin and zosyn, vanco discontinued on 04/27. Paracentesis completed 04/29 with 1.6L fluid removed. ERCP completed 04/30 with difficult cannulation. CBD stent placed with plan for transcystic stenting and stent exchange on repeat ERCP Workup: Bcx: NGTD CXR: dense consolidation collapse and effusion at left lung base UA: no bacteria MRSA/Staph aureus negative TNC/WBC: 363 Peritoneal fluid Cx: pending - Transplant ID following - s/p vanc iso negative blood cx and neg MRSA (04/25-04/27) - s/p Zosyn (D1: 04/24-04/27) - Continue ceftriaxone (D1: 04/28-), 7-10 day course total and through procedures - Per ID, transition to ciprofloxacin 500 mg daily for SBP prophylaxis after completing ceftriaxone - Flush drain 3 times a day - Continue acetaminophen 650 q4h PRN - Repeat ERCP 05/02 for stent exchange and transcystic stent placement - Monitor for pancreatitis, bleeding, perforation, and cholangitis post ERCP Sepsis (HCC) Sepsis with WBC 21, tachycardia, and tachypnea. Source confirmed SBP. Will send for other infectious workup (CXR, UA with culture reflex, BCX pending). Holding off on fluid resuscitation given adequate BP and volume overload at baseline necessitating daily diuretics as well as hyponatremia. Startedon abx as above. Reduced lactic acid clearance likely iso hepatic dysfunction (3.3>>>1.6) that improved with albumin administration. 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 Previous decompensations of ascites, SBP on ppx, HE. Follows withDr. Low outpatient. Somewhat of a recent diagnosis Jan 2024. Initially at that time his MELD was 35 but downtrended to 14 on discharge. On day of admission, was instructed to hold home diuretics iso hyponatremia. MELD 3.0: 20 at 04/30/2024 4:01 AM MELD-Na: 20 at 04/30/2024 4:01 AM Calculated from: Serum Creatinine: 0.74 mg/dL (Using min of 1 mg/dL) at 04/30/2024 4:01 AM Serum Sodium: 133 mmol/L at 04/30/2024 4:01 AM Total Bilirubin: 3.7 mg/dL at 04/30/2024 4:01 AM Serum Albumin: 3.1 g/dL at 04/30/2024 4:01 AM INR(ratio): 1.7 at 04/30/2024 4:01 AM Age at listing (hypothetical): 63 years Sex: Male at 04/30/2024 4:01 AM Decompensation history Varices: unknown, needs screening EGD Ascites: on diuretics as above. Para outpatient with IR on day of admission draining 1.7L and totalhad 3 radha (04/14 draining about 5L, 04/18 about 5L, and day of admission) HE: history of HE, now on lactulose and rifaximin SBP: yes most recently earlier this month Workup: CT 3 Phase: no focal liver lesions, splenic enlargement, gastric fundal and paraesophageal varices.No gross ascites. Moderate left-sided pleural effusion. Plan Diuresis: continue lasix 40mg daily, hold spironolactone 50mg daily Encephalopathy: continue home lactulose, continue rifaximin (appears to have been added day of arrival in clinic) Continue home midodrine Abx as above for SBP Low salt, high protein diet S/p Albumin 1.5g/kg D1 04/25, albumin 1g/kg D3 for fluid overload IR consult for outpatient TIPS for refractory ascites Hyponatremia Presentated with Na 127, improved with albumin administration. - Home diuretics as above - Outpatient fluid restriction of 1.2L liberalized iso sepsis Hyperlipidemia Pt states not taking simvastatin 5mg daily Moderate protein-calorie malnutrition (CMS/HCC) High protein diet, protein shakes. Pt says he does not like Ensure. GLOBAL PLAN OF CARE FLUIDS AND NUTRITION FLUIDS: NUTRITION: Diet, Adult Full participation; Liquid (Specify); Clear Liquid VTE PROPHYLAXIS Enoxaparin Has order for no Mechanical VTE/DVT Prophylaxis ADVANCED CARE PLANNING Code Status: Full Code Medical Decision Maker: Medical Decision Maker: Other - Reviewed/Updated Capacity to make own decisions and HCA Why does patient lack capacity?: Encephalopathy/Delirium What is the anticipated duration the HCP will be invoked?: Unknown/Until condition resolves Signature: Damaris Enriquez MD PGY-1 Electronic Signature Cosigned by Delmis Joseph MD at 04/30/2024 10:10 PM EST Associated attestation - Delmis Joseph MD - 04/30/2024 10:10 PM EST Patient is a 63 yr old man with ALD cirrhosis who was recently discharged after SBP. He is readmitted with recurrent SBP 1. SBP: on IV ceftraxone Will get IV albumin. Fluid removed, WBC count improved 2.Biliary issues: cholecystostomy tube leaking. ERCP done covered stent placed 3. Decompensated cirrhosis : MELD 20. Will be presented at transplant meeting this . May benefit from TIPS Discussed with transplant surgery, IR and patient I saw and evaluated the patient. Case discussed with the resident/fellow and I agree with the findings and plan as documented in the resident's/fellow's note. I have personally reviewed the radiology images Delmis Joseph MD * Damaris Enriquez MD - 04/29/2024 7:25 AM EST Progress Note Subjective CHIEF COMPLAINT: Abdominal discomfort, paracentesis positive for SBP 24 HOUR INTERVAL HISTORY: -NAONE -Paracentesis and ERCP today -Declining PT 2/2 discomfort, wanting wait until after para -Per ID, recommended abx duration 7-10 days total -VSS -Na 130, Bicarb 15 -WBC 8.7, Hgb 11.9 The patient was seen and evaluated at bedside. Expressed frustration with duration of hospital stays. Glad two procedures will be completed today. Reports symptoms are at baseline with continued abdominal distention and discomfort. Feels significantly better after paracentesis. Denies fevers, chills, nausea, vomiting, SOB, palpitations. Updated . MEDICATIONS: All medications reviewed. Objective Temp: [36.5 ??C (97.7 ??F)-37 ??C (98.6 ??F)] 36.5 ??C (97.7 ??F) Heart Rate: [82-95] 83 Resp: [18-20] 20 BP: (97-106)/(62-70) 98/70 SpO2: [94 %-97 %] 94 % Physical Exam GENERAL: NAD, sitting up in bed. HEENT: EOMI. Conjunctivae non-ictereric. mmm Pulm: Decrease BS at b/l bases diffuse crackles CV: RRR, -mrg SKIN: No rashes seen on visible skin GI: Firm, distended, general abd tenderness worst in RUQ, -rebound/guarding MSK: No clubbing or cyanosis. No joint swelling, tenderness, effusions. No pedal edema. NEURO: Alert oriented x 3. No gross deficits. PSYCH: Blunted affect, frustrated Result Review Recent Results (from the past 24 hours) Basic Metabolic Panel Collection Time: 04/28/24 12:16 PM Specimen: Venous, Peripheral; Blood Result Value Ref Range NA 133 (L) 135 - 145 mmol/L K 4.0 3.5 - 5.3 mmol/L Cl 101 98 - 107 mmol/L CO2 17 (L) 22 - 32 mmol/L BUN 16 7 - 23 mg/dL Creatinine 0.97 0.60 - 1.30 mg/dL Glucose 124 (H) 65 - 99 mg/dL Calcium 9.0 8.6 - 10.5 mg/dL Anion Gap 15 5 - 15 eGFR 87 >=60 mL/min/1.73m2 Magnesium Collection Time: 04/28/24 12:16 PM Specimen: Venous, Peripheral; Blood Result Value Ref Range MG 2.0 1.6 - 2.4 mg/dL Hepatic function panel Collection Time: 04/28/24 12:16 PM Specimen: Venous, Peripheral; Blood Result Value Ref Range Total Protein 6.1 6.0 - 8.0 g/dL Albumin 3.6 3.5 - 5.2 g/dL Globulin, Total 2.5 2.1 - 4.2 g/dL Bilirubin, Total 8.1 (H) 0.2 - 1.2 mg/dL Bilirubin, Direct 3.9 (H) <=0.4 mg/dL Alkaline Phosphatase 117 35 - 129 U/L AST 52 (H) 10 - 40 U/L ALT 35 10 - 40 U/L Bilirubin, Indirect 4.20 (H) <=0.70 mg/dL A/G Ratio 1.4 (L) 1.5 - 3.0 Basic Metabolic Panel Collection Time: 04/29/24 4:30 AM Specimen: Venous, Peripheral; Blood Result Value Ref Range NA 130 (L) 135 - 145 mmol/L K 3.9 3.5 - 5.3 mmol/L Cl 102 98 - 107 mmol/L CO2 15 (LL) 22 - 32 mmol/L BUN 20 7 - 23 mg/dL Creatinine 0.88 0.60 - 1.30 mg/dL Glucose 130 (H) 65 - 99 mg/dL Calcium 8.6 8.6 - 10.5 mg/dL Anion Gap 13 5 - 15 eGFR >90 >=60 mL/min/1.73m2 Magnesium Collection Time: 04/29/24 4:30 AM Specimen: Venous, Peripheral; Blood Result Value Ref Range MG 1.9 1.6 - 2.4 mg/dL CBC Auto Differential Collection Time: 04/29/24 4:30 AM Specimen: Venous, Peripheral; Blood Result Value Ref Range WBC 8.7 3.8 - 10.8 10*3/uL RBC 3.75 (L) 4.20 - 5.80 10*6/uL Hemoglobin 11.9 (L) 13.2 - 17.1 g/dL Hematocrit 34.5 (L) 38.5 - 50.0 % MCV 92.0 80.0 - 100.0 fL MCH 31.7 27.0 - 33.0 pg MCHC 34.5 32.0 - 36.0 g/dL RDW 16.3 (H) 11.0 - 15.0 % Platelets 93 (L) 140 - 400 10*3/uL MPV 10.2 7.5 - 12.5 fL Neutrophil % 73.8 % Immature Grans % 0.5 0.0 - 0.9 % Lymphocyte % 9.1 % Monocyte % 14.1 % Eosinophil % 1.8 % Basophil % 0.7 % Neutrophil # 6.42 1.50 - 7.80 10*3/uL Immature Grans # 0.04 (H) <=0.03 10*3/uL Lymphocyte # 0.80 (L) 0.85 - 3.90 10*3/uL Monocyte # 1.20 (H) 0.20 - 0.95 10*3/uL Eosinophil # 0.20 0.02 - 0.50 10*3/uL Basophil # 0.10 0.00 - 0.20 10*3/uL nRBC % 0.0 /100 WBCs nRBC # <0.01 <0.01 10*3/uL Protime-INR Collection Time: 04/29/24 4:30 AM Specimen: Venous, Peripheral; Blood Result Value Ref Range PT 18.2 (H) 9.6 - 12.4 Seconds INR 1.7 0.9 - 1.1 Hepatic function panel Collection Time: 04/29/24 4:30 AM Specimen: Venous, Peripheral; Blood Result Value Ref Range Total Protein 5.8 (L) 6.0 - 8.0 g/dL Albumin 3.3 (L) 3.5 - 5.2 g/dL Globulin, Total 2.5 2.1 - 4.2 g/dL Bilirubin, Total 5.9 (H) 0.2 - 1.2 mg/dL Bilirubin, Direct 2.9 (H) <=0.4 mg/dL Alkaline Phosphatase 109 35 - 129 U/L AST 44 (H) 10 - 40 U/L ALT 30 10 - 40 U/L Bilirubin, Indirect 3.00 (H) <=0.70 mg/dL A/G Ratio 1.3 (L) 1.5 - 3.0 Imaging/Other Studies US Limited Abdomen Single Org Result Date: 04/28/2024 Decompressed gallbladder containing gallstones and cholecystostomy tube. Mildly prominent extra hepatic biliary tree, the common bile duct measures 7 mm, upper limit of normal. Ascites. If this radiology report contains a blank impression section, it is an incomplete radiology report. Please contact the interpreting radiologist or applicable radiology division as soon as possible to obtain the completed interpretation. Workstation ID: [id number] Assessment & Plan Principal Problem: SBP (spontaneous bacterial peritonitis) (HCC) Active Problems: Decompensated cirrhosis (HCC) Sepsis (HCC) Hyperlipidemia Moderate protein-calorie malnutrition (CMS/HCC) Hyponatremia Assessment & Plan SBP (spontaneous bacterial peritonitis) (HCC) More likely to be secondary bacterial peritonitis as he recently had a hospitalization 04/11-04/19 for clogged percutaneous cholecystectomy tube causing septic shock from secondary bacterial peritonitis. Growing Klebsiella at the time resistant to ampicillin only. He has a percutaneous cholecystectomy tube placed Jan 2024 due to cholecystitis and acute on chronic liver failure at the time precluding cholecystectomy. S/p CTX in ED x1 followed by vancomycin and zosyn, vanco discontinued on 04/27. Paracentesis completed 04/29 with 1.6L fluid removed. Planned for ERCP 04/29; possible dual transcystic duct stents to facilitate drain removal. Workup: Bcx: NGTD CXR: read pending UA: no bacteria MRSA/Staph aureus negative TNC/WBC: 363 Peritoneal fluid Cx: pending - Transplant ID following -s/p vanc iso negative blood cx and neg MRSA (04/25-04/27) -s/p Zosyn (D1: 04/24-04/27) -Start ceftriaxone (D1: 04/28-) - Flush drain 3 times a day - Continue acetaminophen 650 q4h PRN - ERCP for potential stent placement 04/29 Sepsis (HCC) Sepsis with WBC 21, tachycardia, and tachypnea. Source confirmed SBP. Will send for other infectious workup (CXR, UA with culture reflex, BCX pending). Holding off on fluid resuscitation given adequate BP and volume overload at baseline necessitating daily diuretics as well as hyponatremia. Startedon abx as above. Reduced lactic acid clearance likely iso hepatic dysfunction (3.3>>>1.6) that improved with albumin administration. 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 Previous decompensations of ascites, SBP on ppx, HE. Follows withDr. Devante outpatient. Somewhat of a recent diagnosis Jan 2024. Initially at that time his MELD was 35 but downtrended to 14 on discharge. On day of admission, was instructed to hold home diuretics iso hyponatremia. MELD 3.0: 22 at 04/29/2024 4:30 AM MELD-Na: 24 at 04/29/2024 4:30 AM Calculated from: Serum Creatinine: 0.88 mg/dL (Using min of 1 mg/dL) at 04/29/2024 4:30 AM Serum Sodium: 130 mmol/L at 04/29/2024 4:30 AM Total Bilirubin: 5.9 mg/dL at 04/29/2024 4:30 AM Serum Albumin: 3.3 g/dL at 04/29/2024 4:30 AM INR(ratio): 1.7 at 04/29/2024 4:30 AM Age at listing (hypothetical): 63 years Sex: Male at 04/29/2024 4:30 AM Decompensation history Varices: unknown, needs screening EGD Ascites: on diuretics as above. Para outpatient with IR on day of admission draining 1.7L and totalhad 3 radha (04/14 draining about 5L, 04/18 about 5L, and day of admission) HE: history of HE, now on lactulose and rifaximin SBP: yes most recently earlier this month Workup: CT 3 Phase: no focal liver lesions, splenic enlargement, gastric fundal and paraesophageal varices.No gross ascites. Moderate left-sided pleural effusion. Plan Diuresis: start lasix 40mg daily, stop spironolactone 50mg daily Encephalopathy: continue home lactulose, continue rifaximin (appears to have been added day of arrival in clinic) Continue home midodrine Abx as above for SBP Low salt, high protein diet Give Albumin 1.5g/kg D1 04/25, albumin 1g/kg D3 for fluid overload Will discuss need/candidacy for TIPS pending clinical course Hyponatremia Presentated with Na 127, improved with albumin administration. - Hold home diuretics as above - Outpatient fluid restriction of 1.2L but liberalized iso sepsis Hyperlipidemia Pt states not taking simvastatin 5mg daily Moderate protein-calorie malnutrition (CMS/HCC) High protein diet, protein shakes. Pt says he does not like Ensure. GLOBAL PLAN OF CARE FLUIDS AND NUTRITION FLUIDS: NUTRITION: Diet, NPO Sips with meds, Ice chips VTE PROPHYLAXIS Enoxaparin Has order for no Mechanical VTE/DVT Prophylaxis ADVANCED CARE PLANNING Code Status: Full Code Medical Decision Maker: Medical Decision Maker: Other - Reviewed/Updated Capacity to make own decisions and HCA Why does patient lack capacity?: Encephalopathy/Delirium What is the anticipated duration the HCP will be invoked?: Unknown/Until condition resolves Signature: Damaris Enriquez MD PGY-1 Electronic Signature Cosigned by Delmis Joseph MD at 04/30/2024 5:00 PM EST Associated attestation - Delmis Joseph MD - 04/30/2024 5:00 PM EST Patient is a 63 yr old man with ALD cirrhosis who was recently discharged after SBP. He is readmitted with recurrent SBP 1. SBP: on IV ceftraxone Will get IV albumin. Fluid removed, WBC count improved 2.Biliary issues: cholecystostomy tube leaking. ERCP today 3. Decompensated cirrhosis : MELD 20. Will be presented at transplant meeting this . May benefit from TIPS Discussed with transplant surgery, IR and patient I saw and evaluated the patient. Case discussed with the resident/fellow and I agree with the findings and plan as documented in the resident's/fellow's note. I have personally reviewed the radiology images Delmis Joseph MD * Elizabeth Sanchez MD - 04/28/2024 6:56 PM EST Transplant Infectious Disease Follow-Up Date of admission: 04/24/2024 5:35 PM Reason for consult: Secondary bacterial peritonitis due to perc shay tube malposition Summary: Patient is a 63 y.o. 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 Patient has been afebrile, with downtrending lactic and white count since starting broad spectrum antibiotics. Peritoneal fluid cultures and blood cultures areall negative. Subjective: Patient c/o abdominal swelling and is asking for another paracentesis. He denies anorexia, fever, chills, nausea, pain, diarrhea, dysuria. He says his perc shay tube is leaking ascites again. Interval events: Leukocytosis resolved Newly replaced perc shay tube leaking ascites again Review of systems: All other components of the review of systems are negative, except those described in the history of present illness. Medications: cefTRIAXone, 2 g, intravenous, q24h THOMAS [On Hold by Provider] enoxaparin, 40 mg, subcutaneous, Daily furosemide, 20 mg, oral, Daily lactulose, 20 g, oral, 3x daily midodrine, 15 mg, oral, q8h THOMAS rifAXIMin, 550 mg, oral, q12h THOMAS sodium chloride, 2.5-10 mL, intravenous, See admin instructions And sodium chloride, 2.5-10 mL, intravenous, q12h THOMAS spironolactone, 50 mg, oral, Daily Physical Exam: Temp: [36.4 ??C (97.5 ??F)-37 ??C (98.6 ??F)] 37 ??C (98.6 ??F) Heart Rate: [92-95] 95 Resp: [18] 18 BP: (100-114)/(62-70) 100/62 SpO2: [94 %-97 %] 97 % General appearance: no obvious distress, well nourished CVS: sitting upright without pallor Lungs: without respiratory distress Abdomen: soft, distended, RUQ tenderness, bowel sounds quiet, palpable hepatosplenomegaly MSK: no obvious abnormality, no major joint effusion Extremities: no lower extremity edema Skin: no obvious rashes or abnormal lesions Neuro: alert and oriented, no focal deficits Laboratory data: I have independently reviewed all recent lab results; including all microbiological data and culture results from previous years. 0 / 9 ------ 111 / 35.3 133 I 101 I 16 - - - - - - - - - - -< 124 4.0 I 17 I 0.97 Ca: 9.0 M.0 Phos: CBC: 04/28/2024 BMP: 04/28/2024 Chem: 04/28/2024 Lab Results Component Value Date ALT 35 04/28/2024 AST 52 (H) 04/28/2024 ALKPHOS 117 04/28/2024 BILITOT 8.1 (H) 04/28/2024 Lab Results Component Value Date Hemoglobin A1C 5.3 04/17/2024 Results from last 7 days Lab Units 04/28/24 0530 04/27/24 0500 04/26/24 0501 WBC 10*3/uL 10.9* 10.2 7.2 HEMOGLOBIN g/dL 12.0* 11.5* 10.8* HEMATOCRIT % 35.3* 32.6* 30.9* PLATELETS 10*3/uL 111* 115* 104* Microbiology data: I have independently reviewed all recent lab results; including all microbiological data and culture results from previous years. Susceptibility data from last 90 days. Collected Specimen Info Organism Amikacin Ampicillin (KB) Ampicillin + Sulbactam Cefazolin CefepimeCeftazidime (KB) Ceftriaxone Ciprofloxacin Ertapenem Gentamicin Meropenem (KB) Piperacillin + Tazobactam 04/13/24 Ascites Fluid from Peritoneum Klebsiella pneumoniae S R S NR S S S S S S S S 04/13/24 Ascites Fluid from Peritoneum Klebsiella pneumoniae S R S NR S S S S S S S S 04/11/24 Body Fluid from Ascites Klebsiella species S R R R S S S S S S S S Collected Specimen Info Organism Tobramycin (KB) Trimethoprim/Sulfamethoxazole 04/13/24 Ascites Fluid from Peritoneum Klebsiella pneumoniae S S 04/13/24 Ascites Fluid from Peritoneum Klebsiella pneumoniae S S 04/11/24 Body Fluid from Ascites Klebsiella species S S Radiology: I have reviewed all imaging data available during this hospitalization independently. US Limited Abdomen Single Or04/28/2024 Decompressed gallbladder containing gallstones and cholecystostomy tube. Mildly prominent extra hepatic biliary tree, the common bile duct measures 7 mm, upper limit of normal. Ascites. Impression: Nate Correa is a 63 y.o. male with AUD and EtOH liver cirrhosis, and recent admission due to cholecystitis status post percutaneous shay tube placement with plan for cholecystectomy next week, who presented as a direct admission from his transplant hepatology clinic/surgery clinic due to hypotension. Secondary bacterial peritonitis due to cholecystitis with malfunctioning percutaneous cholecystostomy tube (initially placed on 01/29/2024), pending ERCP for cystic duct stenting Septic shock requiring pressors, resolved Alcohol related liver cirrhosis, decompensated with ascites and splenomegaly, pending TIPS for volume management Recommendations: Please deescalate zosyn to ceftriaxone 2g daily given absence of culture growth Continue antibiotics throughout cystic duct stenting and TIPS Plan for 7-10 days total antibiotics The plan of care was discussed with the primary hospital team. Transplant ID team will continue to follow. Please don't hesitate to call us with questions or any acute changes in patient's clinical condition. Elizabeth Sanchez MD Fellow, PGY4 Infectious Diseases Pager [phone] 04/28/2024 6:56 PM Nate Correa : 1960 CSN: [id number] Cosigned by Farhad Santana IV, MD at 04/29/2024 8:24 AM EST Associated attestation - Farhad Santana IV, MD - 04/29/2024 8:24 AM EST I saw and evaluated the patient. Case discussed with the resident/fellow and I agree with the findings and plan as documented in the resident's/fellow's note. Farhad Santana IV, MD MS Transplant/General Infectious Disease Senior Caregivernewspaper vendor [facility] [employer] Software Architect [facility] P: [phone] * Damaris Enriquez MD - 04/28/2024 8:52 AM EST Progress Note Subjective CHIEF COMPLAINT: Abdominal discomfort, paracentesis positive for SBP 24 HOUR INTERVAL HISTORY: -NAONE -VSS -WBC 10.9, Hgb 12 -US: Decompressed gallbladder containing gallstones and cholecystostomy tube. Mildly prominent extra hepatic biliary tree, CBD 7 mm. Ascites. The patient was seen and evaluated at bedside. Reported frustration that paracentesis had not yet been completed at that he will likely need to stay for a few more days pending procedure for stent exchange in cystic duct. Reports symptoms are at baseline with continued abdominal distention and discomfort. Does not want to work with PT. Denies fevers, chills, nausea, vomiting, SOB, palpitations. MEDICATIONS: All medications reviewed. Objective Temp: [36.4 ??C (97.5 ??F)-36.9 ??C (98.5 ??F)] 36.8 ??C (98.2 ??F) Heart Rate: [88-102] 93 Resp: [18] 18 BP: (105-127)/(64-83) 114/70 SpO2: [94 %-96 %] 95 % Physical Exam GENERAL: NAD, sitting up in bed. HEENT: EOMI. Conjunctivae non-ictereric. mmm Pulm: Decrease BS at b/l bases L>R, diffuse crackles CV: RRR, -mrg SKIN: No rashes seen on visible skin GI: Firm, distended, general abd tenderness worst in RUQ, -rebound/guarding MSK: No clubbing or cyanosis. No joint swelling, tenderness, effusions. No pedal edema. NEURO: Alert oriented x 3. No gross deficits. PSYCH: Blunted affect, frustrated Result Review Recent Results (from the past 24 hours) CBC Auto Differential Collection Time: 04/28/24 5:30 AM Specimen: Venous, Peripheral; Blood Result Value Ref Range WBC 10.9 (H) 3.8 - 10.8 10*3/uL RBC 3.80 (L) 4.20 - 5.80 10*6/uL Hemoglobin 12.0 (L) 13.2 - 17.1 g/dL Hematocrit 35.3 (L) 38.5 - 50.0 % MCV 92.9 80.0 - 100.0 fL MCH 31.6 27.0 - 33.0 pg MCHC 34.0 32.0 - 36.0 g/dL RDW 16.3 (H) 11.0 - 15.0 % Platelets 111 (L) 140 - 400 10*3/uL MPV 10.9 7.5 - 12.5 fL Neutrophil % 76.7 % Immature Grans % 0.5 0.0 - 0.9 % Lymphocyte % 7.8 % Monocyte % 13.5 % Eosinophil % 0.9 % Basophil % 0.6 % Neutrophil # 8.33 (H) 1.50 - 7.80 10*3/uL Immature Grans # 0.05 (H) <=0.03 10*3/uL Lymphocyte # 0.90 0.85 - 3.90 10*3/uL Monocyte # 1.50 (H) 0.20 - 0.95 10*3/uL Eosinophil # 0.10 0.02 - 0.50 10*3/uL Basophil # 0.10 0.00 - 0.20 10*3/uL nRBC % 0.0 /100 WBCs nRBC # <0.01 <0.01 10*3/uL Protime-INR Collection Time: 04/28/24 5:40 AM Specimen: Venous, Peripheral; Blood Result Value Ref Range PT 18.2 (H) 9.6 - 12.4 Seconds INR 1.7 0.9 - 1.1 Imaging/Other Studies US Limited Abdomen Single Org Result Date: 04/28/2024 Decompressed gallbladder containing gallstones and cholecystostomy tube. Mildly prominent extra hepatic biliary tree, the common bile duct measures 7 mm, upper limit of normal. Ascites. If this radiology report contains a blank impression section, it is an incomplete radiology report. Please contact the interpreting radiologist or applicable radiology division as soon as possible to obtain the completed interpretation. Workstation ID: [id number] Assessment & Plan Principal Problem: SBP (spontaneous bacterial peritonitis) (HCC) Active Problems: Decompensated cirrhosis (HCC) Sepsis (HCC) Hyperlipidemia Moderate protein-calorie malnutrition (CMS/HCC) Hyponatremia Assessment & Plan SBP (spontaneous bacterial peritonitis) (HCC) More likely to be secondary bacterial peritonitis as he recently had a hospitalization 04/11-04/19 for clogged percutaneous cholecystectomy tube causing septic shock from secondary bacterial peritonitis. Growing Klebsiella at the time resistant to ampicillin only. He has a percutaneous cholecystectomy tube placed Jan 2024 due to cholecystitis and acute on chronic liver failure at the time precluding cholecystectomy. Planned for ERCP outpatient; possible dual transcystic duct stents to facilitate drain removal. S/p CTX in ED x1 followed by vancomycin and zosyn, vanco discontinued on 04/27. Workup: Bcx: NGTD CXR: read pending UA: no bacteria MRSA/Staph aureus negative - Transplant ID following -vanc discontinued iso negative blood cx and neg MRSA (04/25-04/27) -s/p Zosyn (D1: 04/24-04/27) -Start ceftriaxone (D1: 04/28-) - Flush drain 3 times a day; and patient are concerned that drain moved outward slightly as the suture that held it in place is no longer there, however drain is functioning well and pt was seenby Dr. Chavez (gen surg) outpatient in clinic day of admission and flushed the drain. Consult surgery if needed. - Continue acetaminophen 650 q4h PRN - Plan for diagnostic and therapeutic paracentesis 04/28 - Plan for stent exchange in cystic duct 05/02 unless can be moved earlier, will preemptively make NPO @ [place] Sepsis (HCC) Sepsis with WBC 21, tachycardia, and tachypnea. Source confirmed SBP. Will send for other infectious workup (CXR, UA with culture reflex, BCX pending). Holding off on fluid resuscitation given adequate BP and volume overload at baseline necessitating daily diuretics as well as hyponatremia. Startedon abx as above. Reduced lactic acid clearance likely iso hepatic dysfunction (3.3>>>1.6) that improved with albumin administration. 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 Previous decompensations of ascites, SBP on ppx, HE. Follows withDr. Low outpatient. Somewhat of a recent diagnosis Jan 2024. Initially at that time his MELD was 35 but downtrended to 14 on discharge. On day of admission, was instructed to hold home diuretics iso hyponatremia. MELD 3.0: 19 at 04/28/2024 5:40 AM MELD-Na: 21 at 04/28/2024 5:40 AM Calculated from: Serum Creatinine: 0.79 mg/dL (Using min of 1 mg/dL) at 04/27/2024 5:00 AM Serum Sodium: 133 mmol/L at 04/27/2024 5:00 AM Total Bilirubin: 4.3 mg/dL at 04/27/2024 5:00 AM Serum Albumin: 3.8 g/dL (Using max of 3.5 g/dL) at 04/27/2024 5:00 AM INR(ratio): 1.7 at 04/28/2024 5:40 AM Age at listing (hypothetical): 63 years Sex: Male at 04/28/2024 5:40 AM Decompensation history Varices: unknown, needs screening EGD Ascites: on diuretics as above. Para outpatient with IR on day of admission draining 1.7L and totalhad 3 radha (04/14 draining about 5L, 04/18 about 5L, and day of admission) HE: history of HE, now on lactulose and rifaximin SBP: yes most recently earlier this month Workup: CT 3 Phase: no focal liver lesions, splenic enlargement, gastric fundal and paraesophageal varices.No gross ascites. Moderate left-sided pleural effusion. Plan Diuresis: start lasix 20mg daily, start spironolactone 50mg daily Encephalopathy: continue home lactulose, continue rifaximin (appears to have been added day of arrival in clinic) Continue home midodrine Abx as above for SBP Low salt, high protein diet Give Albumin 1.5g/kg D1 04/25, albumin 1g/kg D3 for fluid overload Will discuss need/candidacy for TIPS pending clinical course Hyponatremia Presentated with Na 127, improved with albumin administration. - Hold home diuretics as above - Outpatient has fluid restriction of 1.2L but will liberalize for now given sepsis Hyperlipidemia Pt states not taking simvastatin 5mg daily Moderate protein-calorie malnutrition (CMS/HCC) High protein diet, protein shakes. Pt says he does not like Ensure. GLOBAL PLAN OF CARE FLUIDS AND NUTRITION FLUIDS: NUTRITION: Diet, Adult Full participation; Other (Specify), Regular; 1200 mL Fluid; High Protein, Sodium Restricted; 2,300 mg Na VTE PROPHYLAXIS Enoxaparin Has order for no Mechanical VTE/DVT Prophylaxis ADVANCED CARE PLANNING Code Status: Full Code Medical Decision Maker: Medical Decision Maker: Other - Reviewed/Updated Capacity to make own decisions and HCA Why does patient lack capacity?: Encephalopathy/Delirium What is the anticipated duration the HCP will be invoked?: Unknown/Until condition resolves Signature: Damaris Enriquez MD PGY-1 Electronic Signature Cosigned by Delmis Joseph MD at 04/29/2024 9:41 PM EST Associated attestation - Delmis Joseph MD - 04/29/2024 9:41 PM EST Patient is a 63 yr old man with ALD cirrhosis who was recently discharged after SBP. He is readmitted with recurrent SBP 1. SBP: on IV ceftraxone Will get IV albumin Repeat tap in 2 days 2.Biliary issues: cholecystostomy tube leaking. Will get ERCP tomorrow 3. Decompensated cirrhosis : MELD 20. Will be presented at transplant meeting this . Discussed with transplant surgery, IR and patient I saw and evaluated the patient. Case discussed with the resident/fellow and I agree with the findings and plan as documented in the resident's/fellow's note. I spent a total of 50 minutes on the date of encounter, which included: ?? Preparing to see the patient (e.g., review of test results) ?? Obtaining and/or reviewing separately obtained history ?? Performing a medically appropriate exam and/or evaluation ?? Counseling and educating the patient/family/caregiver ?? Ordering medications, tests, procedures ?? Referring and communicating with other healthcare professionals, when not separately reported ?? Documenting clinical information in the health record ?? Independently interpreting results (not separately reported) and communicating results to the patient/family/caregiver I have personally reviewed the radiology images Delmis Joseph MD * Alexei Lepe MD - 04/27/2024 4:00 PM EST Progress Note Subjective CHIEF COMPLAINT: Abdominal discomfort, paracentesis positive for SBP 24 HOUR INTERVAL HISTORY: -NAONE -VSS -PCT drain output pink-tinged -AM labs stable -blood cx NGTD, vancomycin discontinued The patient was seen and evaluated at bedside with his . The patient is disgruntled and frustrated. He states he does not want to be here and that he wants abdomen to be rid of fluid. States thathis abdomen is sore and painful. He denies fever or chills. He is upset that he is stooling waterystool and does not want to take lactulose. He states that he has decreased oral intake because of the discomfort and does not want to have more bowel movements. His at bedside notes that he appears mildly confused. MEDICATIONS: All medications reviewed. Objective Temp: [36.4 ??C (97.6 ??F)-37.1 ??C (98.8 ??F)] 36.7 ??C (98 ??F) Heart Rate: [88-106] 88 Resp: [18-20] 18 BP: (98-133)/(50-77) 109/72 SpO2: [93 %-96 %] 94 % Physical Exam -Deferred formal exam per pt preference- GENERAL: NAD, walking comfortably HEENT: EOMI. Conjunctivae non-ictereric. mmm Pulm: Not in distress CV: Deferred SKIN: No rashes seen on visible skin GI: Deferred MSK: No clubbing or cyanosis. No joint swelling, tenderness, effusions. No pedal edema. NEURO: Alert oriented x 3. No gross deficits. PSYCH: Blunted affect, frustrated Result Review Recent Results (from the past 24 hours) Basic Metabolic Panel Collection Time: 04/27/24 5:00 AM Specimen: Venous, Peripheral; Blood Result Value Ref Range NA 133 (L) 135 - 145 mmol/L K 3.7 3.5 - 5.3 mmol/L Cl 103 98 - 107 mmol/L CO2 16 (L) 22 - 32 mmol/L BUN 13 7 - 23 mg/dL Creatinine 0.79 0.60 - 1.30 mg/dL Glucose 128 (H) 65 - 99 mg/dL Calcium 8.8 8.6 - 10.5 mg/dL Anion Gap 14 5 - 15 eGFR >90 >=60 mL/min/1.73m2 Magnesium Collection Time: 04/27/24 5:00 AM Specimen: Venous, Peripheral; Blood Result Value Ref Range MG 1.9 1.6 - 2.4 mg/dL CBC Auto Differential Collection Time: 04/27/24 5:00 AM Specimen: Venous, Peripheral; Blood Result Value Ref Range WBC 10.2 3.8 - 10.8 10*3/uL RBC 3.57 (L) 4.20 - 5.80 10*6/uL Hemoglobin 11.5 (L) 13.2 - 17.1 g/dL Hematocrit 32.6 (L) 38.5 - 50.0 % MCV 91.3 80.0 - 100.0 fL MCH 32.2 27.0 - 33.0 pg MCHC 35.3 32.0 - 36.0 g/dL RDW 15.9 (H) 11.0 - 15.0 % Platelets 115 (L) 140 - 400 10*3/uL MPV 10.6 7.5 - 12.5 fL Neutrophil % 80.1 % Immature Grans % 0.5 0.0 - 0.9 % Lymphocyte % 6.5 % Monocyte % 11.2 % Eosinophil % 1.1 % Basophil % 0.6 % Neutrophil # 8.18 (H) 1.50 - 7.80 10*3/uL Immature Grans # 0.05 (H) <=0.03 10*3/uL Lymphocyte # 0.70 (L) 0.85 - 3.90 10*3/uL Monocyte # 1.10 (H) 0.20 - 0.95 10*3/uL Eosinophil # 0.10 0.02 - 0.50 10*3/uL Basophil # 0.10 0.00 - 0.20 10*3/uL nRBC % 0.0 /100 WBCs nRBC # <0.01 <0.01 10*3/uL Protime-INR Collection Time: 04/27/24 5:00 AM Specimen: Venous, Peripheral; Blood Result Value Ref Range PT 17.2 (H) 9.6 - 12.4 Seconds INR 1.7 0.9 - 1.1 Hepatic function panel Collection Time: 04/27/24 5:00 AM Specimen: Venous, Peripheral; Blood Result Value Ref Range Total Protein 6.0 6.0 - 8.0 g/dL Albumin 3.8 3.5 - 5.2 g/dL Globulin, Total 2.2 2.1 - 4.2 g/dL Bilirubin, Total 4.3 (H) 0.2 - 1.2 mg/dL Bilirubin, Direct 1.6 (H) <=0.4 mg/dL Alkaline Phosphatase 128 35 - 129 U/L AST 74 (H) 10 - 40 U/L ALT 34 10 - 40 U/L Bilirubin, Indirect 2.70 (H) <=0.70 mg/dL A/G Ratio 1.7 1.5 - 3.0 Imaging/Other Studies No radiology results in the last 2 days Assessment & Plan Principal Problem: SBP (spontaneous bacterial peritonitis) (HCC) Active Problems: Decompensated cirrhosis (HCC) Sepsis (HCC) Hyperlipidemia Moderate protein-calorie malnutrition (CMS/HCC) Hyponatremia Assessment & Plan SBP (spontaneous bacterial peritonitis) (HCC) More likely to be secondary bacterial peritonitis as he recently had a hospitalization 04/11-04/19 for clogged percutaneous cholecystectomy tube causing septic shock from secondary bacterial peritonitis. Growing Klebsiella at the time resistant to ampicillin only. He has a percutaneous cholecystectomy tube placed Jan 2024 due to cholecystitis and acute on chronic liver failure at the time precluding cholecystectomy. Planned for ERCP outpatient; possible dual transcystic duct stents to facilitate drain removal. S/p CTX in ED x1 followed by vancomycin and zosyn, vanco discontinued on 04/27. Workup: Bcx: NGTD CXR: read pending UA: no bacteria MRSA/Staph aureus negative - Transplant ID following -vanc discontinued iso negative blood cx and neg MRSA (04/25-04/27) -Continue Zosyn (D1: 04/24) - Flush drain 3 times a day; and patient are concerned that drain moved outward slightly as the suture that held it in place is no longer there, however drain is functioning well and pt was seenby Dr. Chavez (gen surg) outpatient in clinic day of admission and flushed the drain. Consult surgery if needed. - Continue acetaminophen 650 q4h PRN - Plan for diagnostic and therapeutic paracentesis /3 - Plan for stent exchange in cystic duct 05/02 Sepsis (HCC) Sepsis with WBC 21, tachycardia, and tachypnea. Source confirmed SBP. Will send for other infectious workup (CXR, UA with culture reflex, BCX pending). Holding off on fluid resuscitation given adequate BP and volume overload at baseline necessitating daily diuretics as well as hyponatremia. Startedon abx as above. Reduced lactic acid clearance likely iso hepatic dysfunction (3.3>>>1.6) that improved with albumin administration. 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 Previous decompensations of ascites, SBP on ppx, HE. Follows withDr. Low outpatient. Somewhat of a recent diagnosis Jan 2024. Initially at that time his MELD was 35 but downtrended to 14 on discharge. MELD 3.0: 19 at 04/27/2024 5:00 AM MELD-Na: 21 at 04/27/2024 5:00 AM Calculated from: Serum Creatinine: 0.79 mg/dL (Using min of 1 mg/dL) at 04/27/2024 5:00 AM Serum Sodium: 133 mmol/L at 04/27/2024 5:00 AM Total Bilirubin: 4.3 mg/dL at 04/27/2024 5:00 AM Serum Albumin: 3.8 g/dL (Using max of 3.5 g/dL) at 04/27/2024 5:00 AM INR(ratio): 1.7 at 04/27/2024 5:00 AM Age at listing (hypothetical): 63 years Sex: Male at 04/27/2024 5:00 AM Decompensation history Varices: unknown, needs screening EGD Ascites: on diuretics as above. Para outpatient with IR on day of admission draining 1.7L and totalhad 3 radha (04/14 draining about 5L, 04/18 about 5L, and day of admission) HE: history of HE, now on lactulose and rifaximin SBP: yes most recently earlier this month Workup: CT 3 Phase: no focal liver lesions, splenic enlargement, gastric fundal and paraesophageal varices.No gross ascites. Moderate left-sided pleural effusion. Plan Hold home diuretics ISO sepsis; was also instructed to stop it in clinic on day of admission due tohyponatremia Encephalopathy: continue home lactulose, continue rifaximin (appears to have been added day of arrival in clinic) Continue home midodrine 15mg q8h Abx as above for SBP Low salt, high protein diet Give Albumin 1.5g/kg D1 04/25, albumin 1g/kg D3 for fluid overload Will discuss need/candidacy for TIPS pending clinical course Hyponatremia Presentated with Na 127, improved with albumin administration. - Hold home diuretics as above - Outpatient has fluid restriction of 1.2L but will liberalize for now given sepsis Hyperlipidemia Pt states not taking simvastatin 5mg daily Moderate protein-calorie malnutrition (CMS/HCC) High protein diet, protein shakes. Pt says he does not like Ensure. GLOBAL PLAN OF CARE FLUIDS AND NUTRITION FLUIDS: NUTRITION: Diet, Adult Full participation; Other (Specify), Regular; 1200 mL Fluid; High Protein, Sodium Restricted; 2,300 mg Na VTE PROPHYLAXIS Enoxaparin Has order for no Mechanical VTE/DVT Prophylaxis ADVANCED CARE PLANNING Code Status: Full Code Medical Decision Maker: Medical Decision Maker: Other - Reviewed/Updated Capacity to make own decisions and HCA Why does patient lack capacity?: Encephalopathy/Delirium What is the anticipated duration the HCP will be invoked?: Unknown/Until condition resolves Signature: Alexei Lepe MD PGY-2 Electronic Signature Cosigned by Jeffrey Castro MD at 04/28/2024 2:05 PM EST Associated attestation - Jeffrey Castro MD - 04/28/2024 2:05 PM EST I saw and evaluated the patient. Case discussed with the resident/fellow and I agree with the findings and plan as documented in the resident's/fellow's note. * Damaris Enriquez MD - 04/26/2024 7:42 AM EST Progress Note Subjective CHIEF COMPLAINT: Abdominal discomfort, paracentesis positive for SBP 24 HOUR INTERVAL HISTORY: -NAONE -Per ID, continue Vanc, Zosyn -VSS -Na 132, K 3.7, Mg 1.9, Cr 0.73 -Lactic acid 1.6 -Tbili 3 > 2.5 -WBC 14.1 > 7.2 -Hgb 13.1 > 10.8 (dilutional) -MRSA/MSSA: (-) -Bcx: pending -Peritoneal fluid Cx: NGTD -CT 3 Phase: Decompensated cirrhosis. No focal liver lesions. Splenic enlargement, gastric fundal and paraesophageal varices. Gross ascites. Moderate left-sided pleural effusion. Patient seen at bedside. Reported frustration and was heading to the bathroom. He feels at baselineand expressed desire for continued expedited workup. Reported no changes in his symptoms. MEDICATIONS: All medications reviewed. Objective Temp: [36.6 ??C (97.9 ??F)-36.9 ??C (98.4 ??F)] 36.7 ??C (98 ??F) Heart Rate: [63-87] 81 Resp: [18-20] 18 BP: (96-120)/(57-67) 101/57 SpO2: [94 %-97 %] 94 % Physical Exam -Deferred formal exam per pt preference- GENERAL: NAD, walking comfortably HEENT: EOMI. Conjunctivae non-ictereric. mmm Pulm: Not in distress CV: Deferred SKIN: No rashes seen on visible skin GI: Deferred MSK: No clubbing or cyanosis. No joint swelling, tenderness, effusions. No pedal edema. NEURO: Alert oriented x 3. No gross deficits. PSYCH: Blunted affect, frustrated Result Review Recent Results (from the past 24 hours) Lactic Acid, Plasma Collection Time: 04/25/24 11:31 AM Specimen: Venous, Peripheral; Blood Result Value Ref Range Lactic Acid 2.6 (H) 0.5 - 1.9 mmol/L Basic Metabolic Panel Collection Time: 04/26/24 5:01 AM Specimen: Venous, Peripheral; Blood Result Value Ref Range NA 132 (L) 135 - 145 mmol/L K 3.7 3.5 - 5.3 mmol/L Cl 103 98 - 107 mmol/L CO2 17 (L) 22 - 32 mmol/L BUN 17 7 - 23 mg/dL Creatinine 0.73 0.60 - 1.30 mg/dL Glucose 122 (H) 65 - 99 mg/dL Calcium 8.7 8.6 - 10.5 mg/dL Anion Gap 12 5 - 15 eGFR >90 >=60 mL/min/1.73m2 Magnesium Collection Time: 04/26/24 5:01 AM Specimen: Venous, Peripheral; Blood Result Value Ref Range MG 1.9 1.6 - 2.4 mg/dL CBC Auto Differential Collection Time: 04/26/24 5:01 AM Specimen: Venous, Peripheral; Blood Result Value Ref Range WBC 7.2 3.8 - 10.8 10*3/uL RBC 3.37 (L) 4.20 - 5.80 10*6/uL Hemoglobin 10.8 (L) 13.2 - 17.1 g/dL Hematocrit 30.9 (L) 38.5 - 50.0 % MCV 91.7 80.0 - 100.0 fL MCH 32.0 27.0 - 33.0 pg MCHC 35.0 32.0 - 36.0 g/dL RDW 15.6 (H) 11.0 - 15.0 % Platelets 104 (L) 140 - 400 10*3/uL MPV 10.7 7.5 - 12.5 fL Neutrophil % 77.8 % Immature Grans % 0.3 0.0 - 0.9 % Lymphocyte % 8.5 % Monocyte % 10.9 % Eosinophil % 1.7 % Basophil % 0.8 % Neutrophil # 5.56 1.50 - 7.80 10*3/uL Immature Grans # <0.03 <=0.03 10*3/uL Lymphocyte # 0.60 (L) 0.85 - 3.90 10*3/uL Monocyte # 0.80 0.20 - 0.95 10*3/uL Eosinophil # 0.10 0.02 - 0.50 10*3/uL Basophil # 0.10 0.00 - 0.20 10*3/uL nRBC % 0.0 /100 WBCs nRBC # <0.01 <0.01 10*3/uL Protime-INR Collection Time: 04/26/24 5:01 AM Specimen: Venous, Peripheral; Blood Result Value Ref Range PT 16.1 (H) 9.6 - 12.4 Seconds INR 1.5 0.9 - 1.1 Hepatic function panel Collection Time: 04/26/24 5:01 AM Specimen: Venous, Peripheral; Blood Result Value Ref Range Total Protein 5.7 (L) 6.0 - 8.0 g/dL Albumin 3.5 3.5 - 5.2 g/dL Globulin, Total 2.2 2.1 - 4.2 g/dL Bilirubin, Total 2.5 (H) 0.2 - 1.2 mg/dL Bilirubin, Direct 0.6 (H) <=0.4 mg/dL Alkaline Phosphatase 76 35 - 129 U/L AST 34 10 - 40 U/L ALT 20 10 - 40 U/L Bilirubin, Indirect 1.90 (H) <=0.70 mg/dL A/G Ratio 1.6 1.5 - 3.0 Lactic Acid, Plasma Collection Time: 04/26/24 5:01 AM Specimen: Venous, Peripheral; Blood Result Value Ref Range Lactic Acid 1.6 0.5 - 1.9 mmol/L Smear Review Collection Time: 04/26/24 5:01 AM Specimen: Venous, Peripheral; Blood Result Value Ref Range Platelet Estimate Decreased (A) Adequate RBC Morphology Present (A) Normal, No clinically significant RBC morphology present (ICSH guidelines, 2015). Acanthocytes 2+ (A) Not Present [place] Cells 2+ (A) Not Present Imaging/Other Studies CT 3 Phase Liver Mass With Pelvis w Contrast Result Date: 04/25/2024 1. Decompensated cirrhosis. No focal liver lesions. Splenic enlargement, gastric fundal and paraesophageal varices. Gross ascites. 2. Moderate left-sided pleural effusion. If this radiology report contains a blank impression section, it is an incomplete radiology report. Please contact the interpreting radiologist or applicable radiology division as soon as possible to obtain the completed interpretation. Workstation ID: [id number] IR Paracentesis Diagnostic and Therapeutic Result Date: 04/24/2024 Diagnostic and therapeutic paracentesis performed via left upper quadrant. 1.7 L of serous fluid was aspirated and discarded. Samples of the fluid were sent for laboratory assays. Assessment & Plan Principal Problem: SBP (spontaneous bacterial peritonitis) (HCC) Active Problems: Decompensated cirrhosis (HCC) Sepsis (HCC) Hyperlipidemia Moderate protein-calorie malnutrition (CMS/HCC) Hyponatremia Assessment & Plan SBP (spontaneous bacterial peritonitis) (HCC) More likely to be secondary bacterial peritonitis as he recently had a hospitalization 04/11-04/19 for clogged percutaneous cholecystectomy tube causing septic shock from secondary bacterial peritonitis. Growing Klebsiella at the time resistant to ampicillin only. He has a percutaneous cholecystectomy tube placed Jan 2024 due to cholecystitis and acute on chronic liver failure at the time precluding cholecystectomy. Planned for ERCP outpatient; possible dual transcystic duct stents to facilitate drain removal. S/p CTX in ED x1. Continued on Vancomycin and Zosyn. Workup: Bcx: NGTD CXR: read pending UA: no bacteria MRSA/Staph aureus negative - Transplant ID following - Continue Vanc (trough goal 15-20) (D1: 04/24) until cultures negative 48 hrs -Continue Zosyn (D1: 04/24) - Flush drain 3 times a day; and patient are concerned that drain moved outward slightly as the suture that held it in place is no longer there, however drain is functioning well and pt was seenby Dr. Chavez (gen surg) outpatient in clinic day of admission and flushed the drain. Consult surgery if needed. - Continue acetaminophen 650 q4h PRN - Plan for paracentesis vs TIPS 04/28 - Plan for stent exchange in cystic duct 05/02 Sepsis (HCC) Sepsis with WBC 21, tachycardia, and tachypnea. Source confirmed SBP. Will send for other infectious workup (CXR, UA with culture reflex, BCX pending). Holding off on fluid resuscitation given adequate BP and volume overload at baseline necessitating daily diuretics as well as hyponatremia. Startedon abx as above. Reduced lactic acid clearance likely iso hepatic dysfunction (3.3>>>1.6) that improved with albumin administration. 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 Previous decompensations of ascites, SBP on ppx, HE. Follows withDr. Low outpatient. Somewhat of a recent diagnosis Jan 2024. Initially at that time his MELD was 35 but downtrended to 14 on discharge. MELD 3.0: 17 at 04/26/2024 5:01 AM MELD-Na: 18 at 04/26/2024 5:01 AM Calculated from: Serum Creatinine: 0.73 mg/dL (Using min of 1 mg/dL) at 04/26/2024 5:01 AM Serum Sodium: 132 mmol/L at 04/26/2024 5:01 AM Total Bilirubin: 2.5 mg/dL at 04/26/2024 5:01 AM Serum Albumin: 3.5 g/dL at 04/26/2024 5:01 AM INR(ratio): 1.5 at 04/26/2024 5:01 AM Age at listing (hypothetical): 63 years Sex: Male at 04/26/2024 5:01 AM Decompensation history Varices: unknown, needs screening EGD Ascites: on diuretics as above. Para outpatient with IR on day of admission draining 1.7L and totalhad 3 radha (04/14 draining about 5L, 04/18 about 5L, and day of admission) HE: history of HE, now on lactulose and rifaximin SBP: yes most recently earlier this month Workup: CT 3 Phase: no focal liver lesions, splenic enlargement, gastric fundal and paraesophageal varices.No gross ascites. Moderate left-sided pleural effusion. Plan Hold home diuretics ISO sepsis; was also instructed to stop it in clinic on day of admission due tohyponatremia Encephalopathy: continue home lactulose, continue rifaximin (appears to have been added day of arrival in clinic) Continue home midodrine 15mg q8h Abx as above for SBP Low salt, high protein diet Give Albumin 1.5g/kg D1 04/25, albumin 1g/kg D3 for fluid overload Hyponatremia Presentated with Na 127, improved with albumin administration. - Hold home diuretics as above - Outpatient has fluid restriction of 1.2L but will liberalize for now given sepsis Hyperlipidemia Pt states not taking simvastatin 5mg daily Moderate protein-calorie malnutrition (CMS/HCC) High protein diet, protein shakes. Pt says he does not like Ensure. GLOBAL PLAN OF CARE FLUIDS AND NUTRITION FLUIDS: NUTRITION: Diet, Adult Full participation; Other (Specify), Regular; 1200 mL Fluid; High Protein, Sodium Restricted; 2,300 mg Na VTE PROPHYLAXIS Enoxaparin Has order for no Mechanical VTE/DVT Prophylaxis ADVANCED CARE PLANNING Code Status: Full Code Medical Decision Maker: Medical Decision Maker: Other - Reviewed/Updated Capacity to make own decisions and HCA Why does patient lack capacity?: Encephalopathy/Delirium What is the anticipated duration the HCP will be invoked?: Unknown/Until condition resolves Signature: Damaris Enriquez MD PGY-1 Electronic Signature Cosigned by Jeffrey Castro MD at 04/27/2024 10:36 AM EST Associated attestation - Jeffrey Castro MD - 04/27/2024 10:36 AM EST I saw and evaluated the patient. Case discussed with the resident/fellow and I agree with the findings and plan as documented in the resident's/fellow's note. * Damaris Enriquez MD - 04/25/2024 7:36 AM EST Progress Note Subjective CHIEF COMPLAINT: Abdominal discomfort, paracentesis positive for SBP 24 HOUR INTERVAL HISTORY: -Admitted -Afebrile, HR 60-100s -Lactic 3.3 > 2.4 -Na 130 -Tbili 3.0 -WBC 21 > 14.1, Hgb 14.7 > 13.1 -Bcx: pending Patient seen at bedside. Reported frustration with multiple hospitalizations and the length of timeto complete workup and becomes safe to discharge. [place] cold and wanted another warm blanket. Has continued mild abdominal pain which has not changed since prior discharge. Denies fevers, chills, nausea, vomiting, diarrhea, lightheadedness, dizziness, CP, shortness of breath. MEDICATIONS: All medications reviewed. Objective Temp: [36.4 ??C (97.6 ??F)-36.7 ??C (98.1 ??F)] 36.6 ??C (97.8 ??F) Heart Rate: [68-102] 81 Resp: [18-25] 19 BP: (99-130)/(61-80) 110/70 SpO2: [95 %-98 %] 95 % Physical Exam GENERAL: NAD, lying comfortably in bed HEENT: EOMI. Conjunctivae non-ictereric. mmm RESPIRATORY: Mild crackles, reduced lung sounds at bases CARDIOVASCULAR: RRR. S1 and S2 present. -mrg SKIN: No rashes seen GASTROINTESTINAL: Normoactive bowel sounds. Abdomen is soft, mildly tender to palpation of RUQ, mildly distended, no palpable masses. No guarding or rebound tenderness. MUSCULOSKELETAL: No clubbing or cyanosis. No joint swelling, tenderness, effusions. No pedal edema. NEUROLOGIC: Alert oriented x 3. No gross deficits. PSYCH: Blunted affect, frustrated Result Review Recent Results (from the past 24 hours) Comprehensive Metabolic Panel Collection Time: 04/24/24 1:02 PM Specimen: Venous, Peripheral; Blood Result Value Ref Range NA 127 (L) 135 - 145 mmol/L K 5.0 3.5 - 5.3 mmol/L Cl 97 (L) 98 - 107 mmol/L CO2 16 (L) 22 - 32 mmol/L Anion Gap 14 5 - 15 Glucose 157 (H) 65 - 99 mg/dL Creatinine 1.00 0.60 - 1.30 mg/dL Calcium 9.0 8.6 - 10.5 mg/dL Total Protein 6.7 6.0 - 8.0 g/dL Albumin 3.3 (L) 3.5 - 5.2 g/dL Bilirubin, Total 3.3 (H) 0.2 - 1.2 mg/dL Alkaline Phosphatase 107 35 - 129 U/L AST 35 10 - 40 U/L ALT 25 10 - 40 U/L BUN 21 7 - 23 mg/dL eGFR 84 >=60 mL/min/1.73m2 Globulin, Total 3.4 2.1 - 4.2 g/dL A/G Ratio 1.0 (L) 1.5 - 3.0 Protime-INR Collection Time: 04/24/24 1:02 PM Specimen: Venous, Peripheral; Blood Result Value Ref Range PT 17.6 (H) 9.6 - 12.4 Seconds INR 1.7 0.9 - 1.1 CBC Auto Differential Collection Time: 04/24/24 1:02 PM Specimen: Venous, Peripheral; Blood Result Value Ref Range WBC 21.0 (H) 3.8 - 10.8 10*3/uL RBC 4.69 4.20 - 5.80 10*6/uL Hemoglobin 14.7 13.2 - 17.1 g/dL Hematocrit 43.2 38.5 - 50.0 % MCV 92.1 80.0 - 100.0 fL MCH 31.3 27.0 - 33.0 pg MCHC 34.0 32.0 - 36.0 g/dL RDW 15.7 (H) 11.0 - 15.0 % Platelets 226 140 - 400 10*3/uL MPV 10.5 7.5 - 12.5 fL Neutrophil % 84.1 % Immature Grans % 0.7 0.0 - 0.9 % Lymphocyte % 4.2 % Monocyte % 10.5 % Eosinophil % 0.0 % Basophil % 0.5 % Neutrophil # 17.63 (H) 1.50 - 7.80 10*3/uL Immature Grans # 0.14 (H) <=0.03 10*3/uL Lymphocyte # 0.90 0.85 - 3.90 10*3/uL Monocyte # 2.20 (H) 0.20 - 0.95 10*3/uL Eosinophil # <0.03 0.02 - 0.50 10*3/uL Basophil # 0.10 0.00 - 0.20 10*3/uL nRBC % 0.0 /100 WBCs nRBC # <0.01 <0.01 10*3/uL Smear Review Collection Time: 04/24/24 1:02 PM Specimen: Venous, Peripheral; Blood Result Value Ref Range Platelet Estimate Adequate Adequate RBC Morphology Present (A) Normal, No clinically significant RBC morphology present (ICSH guidelines, 2015). Anisocytosis 2+ (A) Not Present [place] Cells 2+ (A) Not Present Glucose, Body Fluid Collection Time: 04/24/24 2:12 PM Specimen: Peritoneal; Body Fluid Result Value Ref Range Glucose, Fluid 122 mg/dL Lactate Dehydrogenase, Body Fluid Collection Time: 04/24/24 2:12 PM Specimen: Peritoneal; Body Fluid Result Value Ref Range LDH, Fluid 145 U/L Protein, Body Fluid Collection Time: 04/24/24 2:12 PM Specimen: Peritoneal; Body Fluid Result Value Ref Range Protein, Fluid 2.6 g/dL Cell Count w/Differential, Peritoneal Collection Time: 04/24/24 2:12 PM Specimen: Peritoneal; Body Fluid Result Value Ref Range Color, Peritoneal Yellow Colorless, Yellow, Straw Appearance, Peritoneal Clear Clear TNC/WBC, Peritoneal 1,112 (H) <=250 cells/mm3 RBC, Peritoneal 5,000 Not established cells/mm3 Neutrophils %, Peritoneal 66 % Lymphocytes %, Peritoneal 20 % [place]/Macrophage %, Peritoneal 14 % Differential Cells Counted, Peritoneal 100 Bilirubin, Body Fluid Collection Time: 04/24/24 2:12 PM Specimen: Peritoneal; Body Fluid Result Value Ref Range Bilirubin, Fluid 1.5 mg/dL STAT Gram Stain Collection Time: 04/24/24 2:12 PM Specimen: Peritoneal; Body Fluid Result Value Ref Range Gram Stain, STAT No organisms seen Gram Stain, STAT 3+ Polymorphonuclear leukocytes Gram Stain, STAT 2+ Mononuclear Cells Lactic Acid, Plasma Collection Time: 04/24/24 9:18 PM Specimen: Venous, Peripheral; Blood Result Value Ref Range Lactic Acid 3.3 (H) 0.5 - 1.9 mmol/L Lactic Acid, Plasma Collection Time: 04/24/24 11:39 PM Specimen: Venous, Peripheral; Blood Result Value Ref Range Lactic Acid 2.4 (H) 0.5 - 1.9 mmol/L Basic Metabolic Panel Collection Time: 04/25/24 6:09 AM Specimen: Venous, Peripheral; Blood Result Value Ref Range NA 130 (L) 135 - 145 mmol/L K 4.2 3.5 - 5.3 mmol/L Cl 100 98 - 107 mmol/L CO2 17 (L) 22 - 32 mmol/L BUN 24 (H) 7 - 23 mg/dL Creatinine 1.05 0.60 - 1.30 mg/dL Glucose 132 (H) 65 - 99 mg/dL Calcium 8.6 8.6 - 10.5 mg/dL Anion Gap 13 5 - 15 eGFR 79 >=60 mL/min/1.73m2 Magnesium Collection Time: 04/25/24 6:09 AM Specimen: Venous, Peripheral; Blood Result Value Ref Range MG 2.0 1.6 - 2.4 mg/dL CBC Auto Differential Collection Time: 04/25/24 6:09 AM Specimen: Venous, Peripheral; Blood Result Value Ref Range WBC 14.1 (H) 3.8 - 10.8 10*3/uL RBC 4.16 (L) 4.20 - 5.80 10*6/uL Hemoglobin 13.1 (L) 13.2 - 17.1 g/dL Hematocrit 38.7 38.5 - 50.0 % MCV 93.0 80.0 - 100.0 fL MCH 31.5 27.0 - 33.0 pg MCHC 33.9 32.0 - 36.0 g/dL RDW 15.9 (H) 11.0 - 15.0 % Platelets 219 140 - 400 10*3/uL MPV 10.2 7.5 - 12.5 fL Neutrophil % 76.5 % Immature Grans % 0.5 0.0 - 0.9 % Lymphocyte % 9.0 % Monocyte % 12.9 % Eosinophil % 0.3 % Basophil % 0.8 % Neutrophil # 10.77 (H) 1.50 - 7.80 10*3/uL Immature Grans # 0.07 (H) <=0.03 10*3/uL Lymphocyte # 1.30 0.85 - 3.90 10*3/uL Monocyte # 1.80 (H) 0.20 - 0.95 10*3/uL Eosinophil # <0.03 0.02 - 0.50 10*3/uL Basophil # 0.10 0.00 - 0.20 10*3/uL nRBC % 0.0 /100 WBCs nRBC # <0.01 <0.01 10*3/uL Protime-INR Collection Time: 04/25/24 6:09 AM Specimen: Venous, Peripheral; Blood Result Value Ref Range PT 17.1 (H) 9.6 - 12.4 Seconds INR 1.6 0.9 - 1.1 Hepatic function panel Collection Time: 04/25/24 6:09 AM Specimen: Venous, Peripheral; Blood Result Value Ref Range Total Protein 6.4 6.0 - 8.0 g/dL Albumin 3.2 (L) 3.5 - 5.2 g/dL Globulin, Total 3.2 2.1 - 4.2 g/dL Bilirubin, Total 3.0 (H) 0.2 - 1.2 mg/dL Bilirubin, Direct 0.9 (H) <=0.4 mg/dL Alkaline Phosphatase 92 35 - 129 U/L AST 39 10 - 40 U/L ALT 24 10 - 40 U/L Bilirubin, Indirect 2.10 (H) <=0.70 mg/dL A/G Ratio 1.0 (L) 1.5 - 3.0 Urinalysis W/Reflex to Microscopic & Culture Collection Time: 04/25/24 6:10 AM Specimen: Clean Catch; Urine Result Value Ref Range Color, Urine Deann (A) Colorless, Light Yellow, Yellow, Dark Yellow Clarity, Urine Clear Clear Specific [place], Urine 1.029 1.005 - 1.030 pH, Urine 5.0 4.6 - 8.0 Protein, Urine 1+ (A) Negative Glucose, Urine Negative Negative Ketones, Urine Negative Negative Bilirubin, Urine Negative Negative Blood, Urine 1+ (A) Negative Nitrite, Urine Negative Negative Urobilinogen, Urine Normal Normal Leukocyte Esterase, Urine Negative Negative WBC, Urine 2 0 - 2 /HPF RBC, Urine 1 0 - 2 /HPF Hyaline Casts, Urine 1 0 - 2 /LPF Squamous Epithelial Cells, Urine <1 /HPF Bacteria, Urine None None /HPF /HPF Imaging/Other Studies IR Paracentesis Diagnostic and Therapeutic Result Date: 04/24/2024 Diagnostic and therapeutic paracentesis performed via left upper quadrant. 1.7 L of serous fluid was aspirated and discarded. Samples of the fluid were sent for laboratory assays. Assessment & Plan Principal Problem: SBP (spontaneous bacterial peritonitis) (HCC) Active Problems: Decompensated cirrhosis (HCC) Sepsis (HCC) Hyperlipidemia Moderate protein-calorie malnutrition (CMS/HCC) Hyponatremia Assessment & Plan SBP (spontaneous bacterial peritonitis) (HCC) More likely to be secondary bacterial peritonitis as he recently had a hospitalization 04/11-04/19 for clogged percutaneous cholecystectomy tube causing septic shock from secondary bacterial peritonitis. Growing Klebsiella at the time resistant to ampicillin only. He has a percutaneous cholecystectomy tube placed Jan 2024 due to cholecystitis and acute on chronic liver failure at the time precluding cholecystectomy. Planning for ERCP outpatient; possible dual transcystic duct stents to facilitatedrain removal. S/p CTX in ED x1. Workup: Bcx: NGTD CXR: read pending UA: no bacteria MRSA/Staph aureus negative - Transplant ID following - Continue Vanc/Zosyn (D1: 04/24), MRSA swab pending - Flush drain 3 times a day; and patient are concerned that drain moved outward slightly as the suture that held it in place is no longer there, however drain is functioning well and pt was seenby Dr. Chavez (gen surg) outpatient in clinic day of admission and flushed the drain. Consult surgery if needed. 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 Previous decompensations of ascites, SBP on ppx, HE. Follows withDr. Low outpatient. Somewhat of a recent diagnosis Jan 2024. Initially at that time his MELD was 35 but downtrended to 14 on discharge. MELD 3.0: 20 at 04/25/2024 6:09 AM MELD-Na: 22 at 04/25/2024 6:09 AM Calculated from: Serum Creatinine: 1.05 mg/dL at 04/25/2024 6:09 AM Serum Sodium: 130 mmol/L at 04/25/2024 6:09 AM Total Bilirubin: 3 mg/dL at 04/25/2024 6:09 AM Serum Albumin: 3.2 g/dL at 04/25/2024 6:09 AM INR(ratio): 1.6 at 04/25/2024 6:09 AM Age at listing (hypothetical): 63 years Sex: Male at 04/25/2024 6:09 AM Decompensation history Varices: unknown, needs screening EGD Ascites: on diuretics as above. Para outpatient with IR on day of admission draining 1.7L and totalhad 3 radha (04/14 draining about 5L, 04/18 about 5L, and day of admission) HE: history of HE, now on lactulose and rifaximin SBP: yes most recently earlier this month Workup: CT 3 Phase: no focal liver lesions, splenic enlargement, gastric fundal and paraesophageal varices.No gross ascites. Moderate left-sided pleural effusion. Plan Hold home diuretics ISO sepsis; was also instructed to stop it in clinic on day of admission due tohyponatremia Encephalopathy: continue home lactulose, start rifaximin (pt says not on it yet, seemed to have been added day of arrival in clinic) Continue home midodrine 15mg q8h Abx as above for SBP Low salt, high protein diet Give Albumin 1.5g/kg D1 04/25, albumin 1g/kg D3 for fluid overload Hyponatremia - Hold home diuretics as above - Outpatient has fluid restriction of 1.2L but will liberalize for now given sepsis Hyperlipidemia Pt states not taking simvastatin 5mg daily Sepsis (HCC) Sepsis with WBC 21, tachycardia, and tachypnea. Source confirmed SBP. Will send for other infectious workup (CXR, UA with culture reflex, BCX pending). Holding off on fluid resuscitation given adequate BP and volume overload at baseline necessitating daily diuretics as well as hyponatremia. Startedon abx as above. Reduced lactic acid clearance likely iso hepatic dysfunction. - Trend lactic acid until clear (3.3 > 2.4 > 2.6) Moderate protein-calorie malnutrition (CMS/HCC) High protein diet, protein shakes. Pt says he does not like Ensure. GLOBAL PLAN OF CARE FLUIDS AND NUTRITION FLUIDS: NUTRITION: Diet, Adult Full participation; Other (Specify), Regular; 1200 mL Fluid; High Protein, Sodium Restricted; 2,300 mg Na VTE PROPHYLAXIS Enoxaparin Has order for no Mechanical VTE/DVT Prophylaxis ADVANCED CARE PLANNING Code Status: Full Code Medical Decision Maker: Medical Decision Maker: Other - Reviewed/Updated Capacity to make own decisions and HCA Why does patient lack capacity?: Encephalopathy/Delirium What is the anticipated duration the HCP will be invoked?: Unknown/Until condition resolves Signature: Damaris Enriquez MD PGY-1 Electronic Signature Cosigned by Natalio Lara MD at 04/27/2024 7:56 AM EST Associated attestation - Natalio Lara MD - 04/27/2024 7:56 AM EST I saw and evaluated the patient, participating in the abarca portions of the service. I reviewed the resident???s note. I agree with the resident???s findings and plan. Being treated for bacterial peritonitis. Albumin protocol. Will discuss with biliary regarding placement of cystic duct stents. Will need to consider possible TIPS to help control ascites (if needed, can push diuretics some more). [address] to complete txp evaluation Natalio Lara MD documented in this encounter H&P Notes * Rachel Murray MD - 05/02/2024 11:31 AM EST H&P Update: I have reviewed the history and physical and performed a pertinent physical examination on Nate Correa. No changes have occurred. Nate Correa : 1960 CSN: [id number] Source Note - Mike Low MD - 04/24/2024 11:00 AM EST [facility] NOTE PRIMARY CARE PROVIDER: Jade Harper LOCAL PRESSER AND BLOCKER [employer]ITTED GOODS: Dr. Harper Patient Name: Nate Correa : 1960 Reason For Visit Hospital follow up for septic shock from secondary bacterial peritonitis History of Present Illness: Nate Correa is a 63 y.o. 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 Mr. Correa was admitted January 2024 locally with acute cholecystitis he was managed with a percutaneous cholecystostomy tube given cross sectional imaging findings notable for cirrhosis with portal hypertension. His liver disease was noted to be complicated by small volume ascites. I had seen him in clinic with Dr. Sales on the day of admission when we presented with encephalopathy, ascites, hypotension, and renal failure. MELD 3.0 had increased to 35. He had been planned for an elective outpatient cholecystectomy but this was deferred given ACLF. He started a liver transplant evaluation while in the hospital. He was discharged on 04/19 on diuretics, outpatient paracenteses, and ciprofloxacin. MELD 3.0 had decreased to 14 on discharge. In regard to his transplant evaluation, Mr. Correa still needs contrast enhanced abdominal imaging, this was deferred inpatient because of acute renal failure now resolved. Dobutamine stress echocardiogram was satisfactory. CT chest showed moderate cardiomegaly with mild coronary calcifications. Since discharge, Mr. Correa was doing reasonably well until 2 days ago when he started having abdominal distension and discomfort. He is leaking around the PTC. He has nausea with some dry heaves and a reduced appetite. He is urinating frequently. He reports a low appetite. He denies fevers or chills. He is on lactulose and having 3 bowel movements per day. He is overall frustrated and uncomfortable. Labs from today are pending. Medications: Current Outpatient Medications Medication Sig Dispense Refill acetaminophen (TYLENOL) 500 mg tablet Take 500 mg by mouth every 6 hours as needed for pain. ciprofloxacin (CIPRO) 500 mg tablet Take 1 tablet (500 mg total) by mouth every 24 hours. 30 [id number] furosemide (LASIX) 20 mg tablet Take 1 tablet (20 mg total) by mouth once a day. 30 tablet 2 lactulose 10 gram/15 mL solution Take 15 mL (10 g total) by mouth 3 times a day. 1350 mL 2 midodrine (PROAMATINE) 5 mg tablet Take 3 tablets (15 mg total) by mouth every 8 hours. 270 tablet 2 polyethylene glycol 3350 (MIRALAX) 17 gram packet Take 1 packet (17 g total) by mouth daily as needed for constipation. Mix powder in 4 to 8 oz of water, juice, coffee, or tea prior to administration. 30 packet 0 sildenafiL (VIAGRA) 100 mg tablet Take 100 mg by mouth as needed for erectile dysfunction. simvastatin (ZOCOR) 5 mg tablet Take 5 mg by mouth nightly. sodium chloride 0.9% injection INJECT 0.3-1 SYRINGE (3-10 ML) BY INTRALUMINAL ROUTE EVERY 8 HOURS. 900 mL 3 spironolactone (ALDACTONE) 50 mg tablet Take 1 tablet (50 mg total) by mouth once a day. 30 tablet 2 traZODone (DESYREL) 50 mg tablet Take 1 tablet (50 mg total) by mouth nightly as needed for sleep. 30 tablet 0 No current facility-administered medications for this visit. Allergies: No Known Allergies Medical History: Class 1 obesity Type 2 diabetes Hypertension Hyperlipidemia Alcohol use disorder in early remission Acute cholecystitis Surgical History: No abdominal surgery Family History: Brother had alcohol related cirrhosis Social History: Was drinking about 8 beers per day. None since 11/2023. Review of Systems: All other systems reviewed and are negative except as those mentioned in HPI. Physical Exam: Vitals: 04/24/24 1125 BP: 109/76 Pulse: (!) 102 Temp: 36.6 ??C (97.9 ??F) SpO2: 97% Gen: Does not appear toxic; somewhat chronically ill appearing. Abdomen: Distended with fluid wave; no tenderness; saturated pad around PTC. Extremities: 1+ edema Neuro: Alert and oriented; grade 1 hepatic encephalopathy Liver Transplant Assessment and Plan: # Decompensated Met-ALD, MELD 3.0 14 # Recent ACLF from secondary bacterial peritonitis in the setting of a malfunctioning percutaneous cholecystostomy tube # Acute cholecystitis s/p cholecystostomy tube 01/29/2024 # Alcohol use disorder in early remission # Class 1 obesity with metabolic syndrome Mr. Correa is a 63-year-old male with decompensated Met-ALD cirrhosis in the setting of alcohol use disorder and class I obesity with metabolic syndrome. He is completing a liver transplant evaluation. When I had initially met him at the end of February we had deferred a transplant evaluation ahead of his cholecystectomy planned with Dr. Erwin because of the patient's preserved synthetic function. However now that he has decompensated in the setting of septic shock, he is completing the transplant evaluation and we will need to clarify if a cholecystectomy is possible and safe. Fortunately, he has been recovering well from ACLF. We are also in discussions if placement of dual transcystic duct stents would be feasible to help facilitate removal of the PTC which could either serve as a bridge to cholecystectomy or definitive therapy. We will get blood work and a diagnostic/therapeutic paracentesis today. He may require admission to the hospital depending on results. If not, we will plan for an ERCP next week. # Ascites # Secondary bacterial peritonitis Continue once daily ciprofloxacin for secondary prophylaxis, Lasix 20 mg daily, spironolactone 50 mg daily, and midodrine 15 mg 3 times daily. Will titrate diuretics as able depending on blood work. Eventually a TIPS could be considered depending on clinical course. # Hepatic encephalopathy Lactulose for 3-4 bowel movements per day. I will add rifaximin. # At risk for esophageal varices He should have an EGD to screen for esophageal varices. # At risk for HCC AFP was normal. [address] pending. # Health maintenance Needs to be vaccinated against hepatitis A and B. Had a colonoscopy in 2021 with two tubular adenomas removed (largest 1 cm), plan for surveillance in 2026. # Follow up Will follow up pending testing from today, likely ERCP next week, CT 3 phase 2/3. I am scheduled tosee him in clinic in 3 months. * Rachel Murray MD - 04/29/2024 1:32 PM EST H&P Update: I have reviewed the history and physical and performed a pertinent physical examination on Nate Correa. No changes have occurred. Nate Correa : 1960 CSN: [id number] Source Note - Evin Reno MD - 04/24/2024 10:50 PM EST History and Physical CHIEF COMPLAINT: Abdominal discomfort, paracentesis positive for SBP HISTORY OF PRESENT ILLNESS: History obtained from: Patient and Medical Record Nate is a 63-year-old male with alcohol-related liver cirrhosis undergoing transplant workup, hypertension, recent hospitalization involving SBP, prediabetes, obesity, history of amputation to toes on right foot following accident; presents from liver clinic due to abdominal discomfort with parac entesis outpatient positive SBP thus was instructed to come to the ED. He had cholecystitis Jan 2024 and had a percutaneous drain placed 02/01/24 at [facility]- at the time due to new finding of liver cirrhosis and transaminitis he was not a candidate for cholecystectomy. He then recently developed SBP (secondary bacterial peritonitis) with Klebsiella resistant only to ampicillin recently in the setting of clogged percutaneous cholecystectomy drain. He was admitted here 04/11-04/19 for treatment of the bacterial peritonitis and discharged on Sunday with 3 more doses of ciprofloxacin for treatment. He finished the course on Sunday evening, however didnot know that he was also suppose to be on ciprofloxacin for prophylaxis after that was done. Thus did not take any cipro on Sun or . On Sun his got a notification on her phone that the med was ready for pickup and that's when she realized that, so started the ppx then. He had ongoing abdominal pain on and off for months now, sometimes at site of shay drain, other times periumbilical. Pain unchanged. No fevers at home. Endorses some chills but says that has not been new either. No chest pain, shortness of breath, N/V. Feels he has been urinating less but no dysuria. Has 3-4 BM daily, no melena or hematochezia. In the ED, he was afebrile, heart rate 80-100, blood pressure around 100 systolic. On room air. BMPnotable for mild hyponatremia, LFTs normal. CBC remarkable for new leukocytosis to 21. MELD 22. Para studies outpatient with IR showed 733 neutrophils consistent with SBP, 1.7L removed today. Blood cultures pending. He received CTX 1g in the ED. Subjective REVIEW OF SYSTEMS: All other systems are negative Past Medical History: ALC (alcoholic liver cirrhosis) (CMS/HCC) (HCC) Alcoholism (CMS/HCC) (HCC) Hyperlipidemia Hypertension Prediabetes Past Surgical History: IR CHOLECYSTOSTOMY TUBE PLACEMENT TOE AMPUTATION TOTAL KNEE ARTHROPLASTY; Left Home Medications: acetaminophen (TYLENOL) 500 mg tablet, Take 500 mg by mouth every 6 hours as needed for pain. ciprofloxacin (CIPRO) 500 mg tablet, Take 1 tablet (500 mg total) by mouth every 24 hours. lactulose 10 gram/15 mL solution, Take 15 mL (10 g total) by mouth 3 times a day. midodrine (PROAMATINE) 5 mg tablet, Take 3 tablets (15 mg total) by mouth every 8 hours. polyethylene glycol 3350 (MIRALAX) 17 gram packet, Take 1 packet (17 g total) by mouth daily as needed for constipation. Mix powder in 4 to 8 oz of water, juice, coffee, or tea prior to administration. rifAXIMin (XIFAXAN) 550 mg tablet, Take 1 tablet (550 mg total) by mouth every 12 hours. sildenafiL (VIAGRA) 100 mg tablet, Take 100 mg by mouth as needed for erectile dysfunction. simvastatin (ZOCOR) 5 mg tablet, Take 5 mg by mouth nightly. sodium chloride 0.9% injection, INJECT 0.3-1 SYRINGE (3-10 ML) BY INTRALUMINAL ROUTE EVERY 8 HOURS. traZODone (DESYREL) 50 mg tablet, Take 1 tablet (50 mg total) by mouth nightly as needed for sleep. Allergies: No Known Allergies Social History: Tobacco Use Smoking status: Never Smokeless tobacco: Never Vaping Use Vaping status: Never Used Substance Use Topics Alcohol use: Not Currently Alcohol/week: 8.0 standard drinks of alcohol Types: 8 Cans of beer per week Comment: sober since 11/2023 Drug use: Never Family History: Problem Relation Age of Onset Myocardial Infarction Father Other Mother unsure of medical history Objective Temp: [36.4 ??C (97.6 ??F)-36.7 ??C (98.1 ??F)] 36.4 ??C (97.6 ??F) Heart Rate: [68-102] 68 Resp: [18-25] 19 BP: (99-130)/(61-80) 114/76 SpO2: [95 %-98 %] 96 % . Active Lines Name Placement date Placement time Site Days Peripheral IV 04/24/24 Ultrasound-Guided Left Antecubital 04/24/244 Antecubital less than 1 , Active Drains Drain Duration Biliary Tube 1 RMQ 77 days Physical Exam GENERAL: No apparent distress, lying comfortably in bed HEENT: Extraocular movements intact. Conjunctivae non-ictereric. RESPIRATORY: Clear to auscultation bilaterally. No wheezing, rales or rhonchi. CARDIOVASCULAR: Regular rate and rhythm. S1 and S2 present. No murmurs, rubs, or gallops. SKIN: No rashes seen GASTROINTESTINAL: Normoactive bowel sounds. Abdomen is soft, non-tender, mildly distended, no palpable masses. No guarding or rebound tenderness. MUSCULOSKELETAL: No clubbing or cyanosis. No joint swelling, tenderness, effusions. No pedal edema. NEUROLOGIC: Alert oriented x 3. No gross deficits. PSYCH: Normal mood and affect. Result Review I have reviewed the patient's labs results from the last 24 hours. Imaging Results Radiology Review: I have personally reviewed the patient's imaging results. ECG ECG not done Assessment & Plan Principal Problem: SBP (spontaneous bacterial peritonitis) (HCC) Active Problems: Decompensated cirrhosis (HCC) Sepsis (HCC) Hyperlipidemia Moderate protein-calorie malnutrition (CMS/HCC) Hyponatremia Assessment & Plan SBP (spontaneous bacterial peritonitis) (HCC) More likely to be secondary bacterial peritonitis as he recently had a hospitalization 04/11-04/19 for clogged percutaneous cholecystectomy tube causing septic shock from secondary bacterial peritonitis. Growing Klebsiella at the time resistant to ampicillin only. He has a percutaneous cholecystectomy tube placed Jan 2024 due to cholecystitis and acute on chronic liver failure at the time precluding cholecystectomy. Planning for ERCP outpatient; possible dual transcystic duct stents to facilitatedrain removal. S/p CTX in ED x1. - Start Vanc/Zosyn (D1: 04/24), MRSA swab pending - Transplant ID consult in AM - Pending Bcx results - Work up for other infectious etiology with CXR and UA with reflex culture - Flush drain 3 times a day; and patient are concerned that drain moved outward slightly as the suture that held it in place is no longer there, however drain is functioning well and pt was seenby Dr. Chavez (gen surg) outpatient in clinic day of admission and flushed the drain. Please evaluate drain site in AM and consult surgery if needed. 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 Previous decompensations of ascites, SBP on ppx, HE. Follows withDr. Low outpatient. Somewhat of a recent diagnosis Jan 2024. Initially at that time his MELD was 35 but downtrended to 14 on discharge. Today is 22. Decompensation history Varices: unknown, needs screening EGD Ascites: on diuretics as above. Para outpatient with IR on day of admission draining 1.7L and totalhad 3 radha (04/14 draining about 5L, 04/18 about 5L, and day of admission) HE: history of HE, now on lactulose and rifaximin SBP: yes most recently earlier this month Plan Obtain CT AP noncon due to rising Tbili Hold home diuretics ISO sepsis; was also instructed to stop it in clinic on day of admission due tohyponatremia Encephalopathy: continue home lactulose, start rifaximin (pt says not on it yet, seemed to have been added today in clinic) Continue home midodrine 15mg q8h Abx as above for SBP Low salt, high protein diet Hyponatremia - Hold home diuretics as above - Outpatient has fluid restriction of 1.2L but will liberalize for now given sepsis Hyperlipidemia Pt states not taking simvastatin 5mg daily Sepsis (HCC) Sepsis with WBC 21, tachycardia, and tachypnea. Source confirmed SBP. Will send for other infectious workup (CXR, UA with culture reflex, BCX pending). Holding off on fluid resuscitation given adequate BP and volume overload at baseline necessitating daily diuretics as well as hyponatremia. Startedon abx as above. - Trend lactic acid until clear Moderate protein-calorie malnutrition (CMS/HCC) High protein diet, protein shakes. Pt says he does not like Ensure. GLOBAL PLAN OF CARE: FLUIDS AND NUTRITION FLUIDS: NUTRITION: Diet, Adult Full participation; Other (Specify), Regular; 1200 mL Fluid; High Protein, Sodium Restricted; 2,300 mg Na VTE PROPHYLAXIS Pharmacologic Prophylaxis: Lovenox Mechanical Prophylaxis: none, on Lovenox ADVANCED CARE PLANNING Code Status: Full Code Medical Decision Maker: Medical Decision Maker: Other - Reviewed/Updated Capacity to make own decisions and HCA Why does patient lack capacity?: Encephalopathy/Delirium What is the anticipated duration the HCP will be invoked?: Unknown/Until condition resolves I have discussed the plan of care with: Fellow. Med Reconciliation Status: Medication Reconciliation Status: COMPLETE: Medication reconciliation iscomplete in full using one or more reliable source(s). Signature: Evin Reno MD PGY-3 Electronic Signature Cosigned by Natalio Lara MD at 04/25/2024 6:07 PM EST * Evin Reno MD - 04/24/2024 10:50 PM EST History and Physical CHIEF COMPLAINT: Abdominal discomfort, paracentesis positive for SBP HISTORY OF PRESENT ILLNESS: History obtained from: Patient and Medical Record Nate is a 63-year-old male with alcohol-related liver cirrhosis undergoing transplant workup, hypertension, recent hospitalization involving SBP, prediabetes, obesity, history of amputation to toes on right foot following accident; presents from liver clinic due to abdominal discomfort with parac entesis outpatient positive SBP thus was instructed to come to the ED. He had cholecystitis Jan 2024 and had a percutaneous drain placed 02/01/24 at [facility]- at the time due to new finding of liver cirrhosis and transaminitis he was not a candidate for cholecystectomy. He then recently developed SBP (secondary bacterial peritonitis) with Klebsiella resistant only to ampicillin recently in the setting of clogged percutaneous cholecystectomy drain. He was admitted here 04/11-04/19 for treatment of the bacterial peritonitis and discharged on Sunday with 3 more doses of ciprofloxacin for treatment. He finished the course on Sunday evening, however didnot know that he was also suppose to be on ciprofloxacin for prophylaxis after that was done. Thus did not take any cipro on Sun or . On Sun his got a notification on her phone that the med was ready for pickup and that's when she realized that, so started the ppx then. He had ongoing abdominal pain on and off for months now, sometimes at site of shay drain, other times periumbilical. Pain unchanged. No fevers at home. Endorses some chills but says that has not been new either. No chest pain, shortness of breath, N/V. Feels he has been urinating less but no dysuria. Has 3-4 BM daily, no melena or hematochezia. In the ED, he was afebrile, heart rate 80-100, blood pressure around 100 systolic. On room air. BMPnotable for mild hyponatremia, LFTs normal. CBC remarkable for new leukocytosis to 21. MELD 22. Para studies outpatient with IR showed 733 neutrophils consistent with SBP, 1.7L removed today. Blood cultures pending. He received CTX 1g in the ED. Subjective REVIEW OF SYSTEMS: All other systems are negative Past Medical History: ALC (alcoholic liver cirrhosis) (CMS/HCC) (HCC) Alcoholism (CMS/HCC) (HCC) Hyperlipidemia Hypertension Prediabetes Past Surgical History: IR CHOLECYSTOSTOMY TUBE PLACEMENT TOE AMPUTATION TOTAL KNEE ARTHROPLASTY; Left Home Medications: acetaminophen (TYLENOL) 500 mg tablet, Take 500 mg by mouth every 6 hours as needed for pain. ciprofloxacin (CIPRO) 500 mg tablet, Take 1 tablet (500 mg total) by mouth every 24 hours. lactulose 10 gram/15 mL solution, Take 15 mL (10 g total) by mouth 3 times a day. midodrine (PROAMATINE) 5 mg tablet, Take 3 tablets (15 mg total) by mouth every 8 hours. polyethylene glycol 3350 (MIRALAX) 17 gram packet, Take 1 packet (17 g total) by mouth daily as needed for constipation. Mix powder in 4 to 8 oz of water, juice, coffee, or tea prior to administration. rifAXIMin (XIFAXAN) 550 mg tablet, Take 1 tablet (550 mg total) by mouth every 12 hours. sildenafiL (VIAGRA) 100 mg tablet, Take 100 mg by mouth as needed for erectile dysfunction. simvastatin (ZOCOR) 5 mg tablet, Take 5 mg by mouth nightly. sodium chloride 0.9% injection, INJECT 0.3-1 SYRINGE (3-10 ML) BY INTRALUMINAL ROUTE EVERY 8 HOURS. traZODone (DESYREL) 50 mg tablet, Take 1 tablet (50 mg total) by mouth nightly as needed for sleep. Allergies: No Known Allergies Social History: Tobacco Use Smoking status: Never Smokeless tobacco: Never Vaping Use Vaping status: Never Used Substance Use Topics Alcohol use: Not Currently Alcohol/week: 8.0 standard drinks of alcohol Types: 8 Cans of beer per week Comment: sober since 11/2023 Drug use: Never Family History: Problem Relation Age of Onset Myocardial Infarction Father Other Mother unsure of medical history Objective Temp: [36.4 ??C (97.6 ??F)-36.7 ??C (98.1 ??F)] 36.4 ??C (97.6 ??F) Heart Rate: [68-102] 68 Resp: [18-25] 19 BP: (99-130)/(61-80) 114/76 SpO2: [95 %-98 %] 96 % . Active Lines Name Placement date Placement time Site Days Peripheral IV 04/24/24 Ultrasound-Guided Left Antecubital 04/24/241813 Antecubital less than 1 , Active Drains Drain Duration Biliary Tube 1 RMQ 77 days Physical Exam GENERAL: No apparent distress, lying comfortably in bed HEENT: Extraocular movements intact. Conjunctivae non-ictereric. RESPIRATORY: Clear to auscultation bilaterally. No wheezing, rales or rhonchi. CARDIOVASCULAR: Regular rate and rhythm. S1 and S2 present. No murmurs, rubs, or gallops. SKIN: No rashes seen GASTROINTESTINAL: Normoactive bowel sounds. Abdomen is soft, non-tender, mildly distended, no palpable masses. No guarding or rebound tenderness. MUSCULOSKELETAL: No clubbing or cyanosis. No joint swelling, tenderness, effusions. No pedal edema. NEUROLOGIC: Alert oriented x 3. No gross deficits. PSYCH: Normal mood and affect. Result Review I have reviewed the patient's labs results from the last 24 hours. Imaging Results Radiology Review: I have personally reviewed the patient's imaging results. ECG ECG not done Assessment & Plan Principal Problem: SBP (spontaneous bacterial peritonitis) (HCC) Active Problems: Decompensated cirrhosis (HCC) Sepsis (HCC) Hyperlipidemia Moderate protein-calorie malnutrition (CMS/HCC) Hyponatremia Assessment & Plan SBP (spontaneous bacterial peritonitis) (HCC) More likely to be secondary bacterial peritonitis as he recently had a hospitalization 04/11-04/19 for clogged percutaneous cholecystectomy tube causing septic shock from secondary bacterial peritonitis. Growing Klebsiella at the time resistant to ampicillin only. He has a percutaneous cholecystectomy tube placed Jan 2024 due to cholecystitis and acute on chronic liver failure at the time precluding cholecystectomy. Planning for ERCP outpatient; possible dual transcystic duct stents to facilitatedrain removal. S/p CTX in ED x1. - Start Vanc/Zosyn (D1: 04/24), MRSA swab pending - Transplant ID consult in AM - Pending Bcx results - Work up for other infectious etiology with CXR and UA with reflex culture - Flush drain 3 times a day; and patient are concerned that drain moved outward slightly as the suture that held it in place is no longer there, however drain is functioning well and pt was seenby Dr. Chavez (gen surg) outpatient in clinic day of admission and flushed the drain. Please evaluate drain site in AM and consult surgery if needed. 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 Previous decompensations of ascites, SBP on ppx, HE. Follows withDr. Devante outpatient. Somewhat of a recent diagnosis Jan 2024. Initially at that time his MELD was 35 but downtrended to 14 on discharge. Today is 22. Decompensation history Varices: unknown, needs screening EGD Ascites: on diuretics as above. Para outpatient with IR on day of admission draining 1.7L and totalhad 3 radha (04/14 draining about 5L, 04/18 about 5L, and day of admission) HE: history of HE, now on lactulose and rifaximin SBP: yes most recently earlier this month Plan Obtain CT AP noncon due to rising Tbili Hold home diuretics ISO sepsis; was also instructed to stop it in clinic on day of admission due tohyponatremia Encephalopathy: continue home lactulose, start rifaximin (pt says not on it yet, seemed to have been added today in clinic) Continue home midodrine 15mg q8h Abx as above for SBP Low salt, high protein diet Hyponatremia - Hold home diuretics as above - Outpatient has fluid restriction of 1.2L but will liberalize for now given sepsis Hyperlipidemia Pt states not taking simvastatin 5mg daily Sepsis (HCC) Sepsis with WBC 21, tachycardia, and tachypnea. Source confirmed SBP. Will send for other infectious workup (CXR, UA with culture reflex, BCX pending). Holding off on fluid resuscitation given adequate BP and volume overload at baseline necessitating daily diuretics as well as hyponatremia. Startedon abx as above. - Trend lactic acid until clear Moderate protein-calorie malnutrition (CMS/HCC) High protein diet, protein shakes. Pt says he does not like Ensure. GLOBAL PLAN OF CARE: FLUIDS AND NUTRITION FLUIDS: NUTRITION: Diet, Adult Full participation; Other (Specify), Regular; 1200 mL Fluid; High Protein, Sodium Restricted; 2,300 mg Na VTE PROPHYLAXIS Pharmacologic Prophylaxis: Lovenox Mechanical Prophylaxis: none, on Lovenox ADVANCED CARE PLANNING Code Status: Full Code Medical Decision Maker: Medical Decision Maker: Other - Reviewed/Updated Capacity to make own decisions and HCA Why does patient lack capacity?: Encephalopathy/Delirium What is the anticipated duration the HCP will be invoked?: Unknown/Until condition resolves I have discussed the plan of care with: Fellow. Med Reconciliation Status: Medication Reconciliation Status: COMPLETE: Medication reconciliation iscomplete in full using one or more reliable source(s). Signature: Evin Reno MD PGY-3 Electronic Signature Cosigned by Natalio Lara MD at 04/25/2024 6:07 PM EST Associated attestation - Natalio Lara MD - 04/25/2024 6:07 PM EST I saw and evaluated the patient, participating in the abarca portions of the service. I reviewed the resident???s note. I agree with the resident???s findings and plan. Patient referred to ED from clinic after paracentesis showed evidence of recurrent SBP. Patient currently being worked up for liver transplant evaluation. He will need three-phase CT scan. Natalio Lara MD documented in this encounter Procedure Notes * Rachel Murray MD - 05/02/2024 1:19 PM ESTAssociated Order(s): ENDOSCOPIC RETROGRADE CHOLANGIOPANCREATOGRAPHY [facility] Patient Name: Nate Correa Procedure Date: 05/02/2024 1:19 PM Date of : 1960 Admit Type: Inpatient Age: 63 Room: [place] [address] Gender: Male Note Status: Finalized Attending MD: Rachel Murray MD Procedure: ERCP Indications: Acute cholecystitis Comorbidities Providers: Rachel Murrya MD, Pedro Limon (Fellow) Referring MD: Requesting Provider: Medicines: General Anesthesia, Zosyn 3.375 g IV Complications: No immediate complications. Estimated Blood Loss: Estimated blood loss: none. Procedure: Pre-Anesthesia Assessment: - Prior to the procedure, a History and Physical was performed, and patient medications and allergies were reviewed. The patient is competent. The risks and benefits of the procedure and the sedation options and risks were discussed with the patient. All questions were answered and informed consent was obtained. Patient identification and proposed procedure were verified by the physician, the nurse and the anesthesiologist in the pre-procedure area in the procedure room. Mental Status Examination: alert and oriented. Airway Examination: normal oropharyngeal airway and neck mobility. Respiratory Examination: clear to auscultation. CV Examination: normal. Prophylactic Antibiotics: The patient requires prophylactic antibiotics. Prior Anticoagulants: The patient has taken no anticoagulant or antiplatelet agents. ASA Grade Assessment: III - A patient with severe systemic disease. After reviewing the risks and benefits, the patient was deemed in satisfactory condition to undergo the procedure. The anesthesia plan was to use general anesthesia. Immediately prior to administration of medications, the patient was re-assessed for adequacy to receive sedatives. The heart rate, respiratory rate, oxygen saturations, blood pressure, adequacy of pulmonary ventilation, and response to care were monitored throughout the procedure. The physical status of the patient was re-assessed after the procedure. After obtaining informed consent, the scope was passed under direct vision. Throughout the procedure, the patient's blood pressure, pulse, and oxygen saturations were monitored continuously. The Disposable Exalt Model C Scope was introduced through the mouth, and used to inject contrast into and used to inject contrast into the bile duct. The patient tolerated the procedure well. The ERCP was technically difficult and complex. Total patient fluoro time 2428s, total patient dose 2549mGy. Findings: A biliary stent and PCT were visible on the switch inspector film. The esophagus was successfully intubated under direct vision without detailed examination of the pharynx, larynx, and associated structures, and upper GI tract. The upper GI tract was grossly normal. One metal stent originating in the biliary tree was emerging from the major papilla. The stent was visibly patent. A 0.035 inch x 450 cm straight Hydra Jagwire was passed into the biliary tree via the metal stent. The short-nosed traction sphincterotome was passed over the guidewire and the bile duct was then deeply cannulated. Contrast was injected. I personally interpreted the bile duct images. There was brisk flow of contrast through the ducts. Image quality was excellent. Contrast extended to the entire biliary tree. The gallbladder contained multiple impacted stones. The cystic duct contained segmental stenoses. Despite being able to pass a 0.025 inch wire into the cystic duct and gallbladder, given stenosed and tortuous cystic duct, unable to pass dilating balloon into the cystic duct/gallbladder to perform dilation. Therefore, one 7 Fr by 5 cm transpapillary plastic biliary stent with a full external pigtail and a full internal pigtail was placed into the cystic duct although placement was very distal and unlikely to provide adequate gallbladder drainage. Given some mild oozing, likely from the cystic duct, one 10 Fr by 4 cm transpapillary plastic biliary stent with a full external pigtail and a full internal pigtail was placed into the common bile duct. Bile flowed through the stent. The stent was in good position. Impression: - One visibly patent stent from the biliary tree was seen in the major papilla. This was left in situ - Multiple impacted stones found in the gallbladder. - Significantly tortuous and stenosed cystic duct. - Unable to pass catheter or dilating balloon into the gallbladder/cystic duct. - One co-axial 7Fr x 5cm plastic biliary stent was placed into the distal cystic duct which is unlikely to provide adequate drainage of the gallbladder. - Given mild oozing, one co-axial 10F x 4cm plastic biliary stent was placed into the common bile duct. Recommendation: - Return patient to [facility] for [facility] care. - Clear liquid diet today, then advance as tolerated to advance diet as tolerated. - Watch for pancreatitis, bleeding, perforation, and cholangitis. - Repeat ERCP in 2 months for stent removal and re-attempt at adequate drainage Attending Participation: I was present and participated during the entire procedure, including non-abarca portions. Rachel Murray MD 05/02/2024 4:42:50 PM This report has been signed electronically. Number of Addenda: 0 Note Initiated On: 05/02/2024 1:19 PM * Rachel Murray MD - 04/29/2024 3:18 PM ESTAssociated Order(s): ENDOSCOPIC RETROGRADE CHOLANGIOPANCREATOGRAPHY [facility] Patient Name: Nate Correa Procedure Date: 04/29/2024 3:18 PM Date of : 1960 Admit Type: Inpatient Age: 63 Room: [place] [address] Gender: Male Note Status: Finalized Attending MD: Rachel Murray MD Procedure: ERCP Indications: SBP, history of cholecystitis s/p percutaneous cholecystotomy tube, here for transcystic stenting Comorbidities Patient Profile: This is a 63 year old male. Refer to note in patient chart for documentation of history and physical. Providers: Rachel Murray MD, Chris Grijalva MD (Fellow) Referring MD: Requesting Provider: Medicines: General Anesthesia, Piperacil 3.375 g IV Complications: No immediate complications. Estimated blood loss: Minimal. Estimated Blood Loss: Estimated blood loss was minimal. Procedure: Pre-Anesthesia Assessment: - Prior to the procedure, a History and Physical was performed, and patient medications and allergies were reviewed. The patient is competent. The risks and benefits of the procedure and the sedation options and risks were discussed with the patient. All questions were answered and informed consent was obtained. Patient identification and proposed procedure were verified by the physician, the nurse and the internal grinding machine operator in the pre-procedure area in the endoscopy suite. Mental Status Examination: alert and oriented. Respiratory Examination: clear to auscultation. CV Examination: normal. Prophylactic Antibiotics: The patient requires prophylactic antibiotics. Prior Anticoagulants: The patient has taken no anticoagulant or antiplatelet agents. ASA Grade Assessment: III - A patient with severe systemic disease. After reviewing the risks and benefits, the patient was deemed in satisfactory condition to undergo the procedure. The anesthesia plan was to use general anesthesia. Immediately prior to administration of medications, the patient was re-assessed for adequacy to receive sedatives. The heart rate, respiratory rate, oxygen saturations, blood pressure, adequacy of pulmonary ventilation, and response to care were monitored throughout the procedure. The physical status of the patient was re-assessed after the procedure. After obtaining informed consent, the scope was passed under direct vision. Throughout the procedure, the patient's blood pressure, pulse, and oxygen saturations were monitored continuously. The was introduced through the mouth, and used to inject contrast into and used to cannulate the bile duct. The ERCP was accomplished without difficulty. The patient tolerated the procedure well. The total fluoroscopy exposure time was 589 seconds (604.5 mGy). Findings: A switch inspector film of the abdomen was obtained. Percutaneous drain(s) were seen. The esophagus was successfully intubated under direct vision without detailed examination of the pharynx, larynx, and associated structures, and upper GI tract. The upper GI tract was grossly normal. The major papilla was on the rim of a diverticulum. The ventral pancreatic duct was inadvertently cannulated with the short-nosed traction sphincterotome without any complications. The entire opacified area was normal. One 5 Fr by 7 cm pancreatic stent with a single external pigtail and a single internal flap was placed into the ventral pancreatic duct. Clear fluid flowed through the stent. The stent was in good position. The bile duct could not be cannulated with the short-nosed traction sphincterotome. Biliary orifice pre-cut sphincterotomies were made with a traction (standard) sphincterotome using ERBE electrocautery. The sphincterotomy oozed blood. Difficult cannulation therefore decision was to remove PD stent. One stent was removed from the pancreatic duct using a Raptor grasping device. Was able to pass a 0.035 inch x 450 cm straight Hydra Jagwire into the biliary tree. The short-nosed traction sphincterotome was passed over the guidewire and the bile duct was then deeply cannulated. Contrast was injected. I personally interpreted the bile duct images. Ductal flow of contrast was adequate. Image quality was adequate. Contrast extended to the main bile duct. The middle third of the main bile duct was normal. The biliary sphincterotomy was extended with a monofilament traction (standard) sphincterotome using ERBE electrocautery. The sphincterotomy oozed blood. Decision was to place a stent and proceed with trancystic stenting in 48 hours. One 10 mm by 6 cm covered metal stent was placed into the common bile duct. Bile flowed through the stent. The stent was in good position. The total fluoroscopy exposure time was 589 seconds (604.5 mGy). Impression: - The major papilla was on the rim of a diverticulum. - Difficult cannulation, required PD cannulation, stenting, and removal of PD stent. - Precut sphincterotomy was done and then sphincterotomy was extended. Mild bleeding after sphincterotomy. Decision was to place CBD stent and proceed with interval trancystic stenting at repeat ERCP. - One 10 mm x 6 cm covered metal stent was placed into the common bile duct. Recommendation: - Return patient to [facility] for ongoing care. - Clear liquid diet. - Repeat ERCP in 2 days to exchange stent and do trancystic stenting. - Trend CBC/LFTs - Watch for pancreatitis, bleeding, perforation, and cholangitis. - Continue Abx per primary team Rachel Murray MD 04/29/2024 6:04:34 PM This report has been signed electronically. Number of Addenda: 0 Note Initiated On: 04/29/2024 3:18 PM * Damaris Enriquez MD - 04/29/2024 1:30 PM ESTAssociated Order(s): Paracentesis Post-Procedure Diagnose(s): Spontaneous bacterial peritonitis (HCC) Paracentesis Date/Time: 04/29/2024 1:30 PM Performed by: Damaris Enriquez MD Authorized by: Delmis Joseph MD Consent: Patient Identity Confirmed: Name and with patient, Name and MRN on the patient's armband and Verbally Verbal Consent Obtained?: Yes Written Consent Obtained?: Yes Risks and benefits discussed: Yes Consent given by: Spouse Patient states understanding of procedure being performed: Yes Patient's understanding of procedure matches consent: Yes [place] Protocol: Procedure consent matches procedure scheduled: Yes Relevant documents present and verified: Yes Test results available and properly labeled: Yes Site Marked: Yes Required blood products, implants, devices and special equipment available: Yes Immediately prior to the procedure a time out was called: Yes An attending physician was present for the procedure OR the procedure was performed by an Advanced Practice Provider Pre-procedure details: Procedure purpose: Therapeutic Preparation: Patient was prepped and draped in usual sterile fashion Anesthesia (see MAR for exact dosages): Anesthesia method: Local infiltration Local anesthetic: Lidocaine 1% w/o epi Procedure details: Needle gauge: 20 Ultrasound guidance: yes Puncture site: L lower quadrant Fluid removed amount: 1.6 L Fluid appearance: Clear and yellow Dressinx4 sterile gauze and adhesive bandage Post-procedure details: Patient tolerance of procedure: Tolerated well, no immediate complications Comments: Performed under the guidance of Dr. Jazlyn Bliss. Loculations noted on US. Nate Correa : 1960 CSN: [id number] Cosigned by Delmis Joseph MD at 04/29/2024 10:57 PM EST Associated attestation - Delmis Joseph MD - 04/29/2024 10:57 PM EST documented in this encounter Consult Notes * Alondra Sage NP - 04/30/2024 2:02 PM EST Interventional Radiology Consult Note. Date: 04/30/24 Referring Provider: Dr Joseph Chief Complaint: decompensated cirrhosis HPI: Nate is a 63 y.o. year old male pmh HTN, HLD, recent admission at [facility] for cholecystitis in January 2024 s/p shay tube. At that time he was also found to have new alcohol related cirrhosis. Course has been complicated by recurrent SBP in the setting of occluded cholecystostomy tube. He was admitted during outpatient transplant workup for ongoing abdominal pain and SBP.MELD 22. Patient referred to IR for TIPS workup. Past Medical / Past Surgical Past Medical History: Diagnosis Date ALC (alcoholic liver cirrhosis) (CMS/HCC) (HCC) Alcoholism (CMS/HCC) (HCC) sober since 11/2023 Hyperlipidemia Hypertension Prediabetes Past Surgical History: Procedure Laterality Date IR CHOLECYSTOSTOMY TUBE PLACEMENT [place] ERCP DX COLLECTION SPECIMEN BRUSHING/WASHING N/A 04/29/2024 Procedure: ENDOSCOPIC RETROGRADE CHOLANGIOPANCREATOGRAPHY, DIAGNOSTIC WITH POSSIBLE BRUSHING OR WASHING AND POSSIBLE MODERATE SEDATION; Surgeon: Rachel Murray MD; Location: [facility] GI OR; Service: Gastroenterology TOE AMPUTATION TOTAL KNEE ARTHROPLASTY Left Problem List: Patient Active Problem List Diagnosis Decompensated cirrhosis (HCC) SBP (spontaneous bacterial peritonitis) (HCC) Sepsis (HCC) Cholecystitis Hyperlipidemia Insomnia Moderate protein-calorie malnutrition (CMS/HCC) Hyponatremia Family history: Family History Problem Relation Age of Onset Other Mother unsure of medical history Myocardial Infarction Father Social history: Social History Tobacco Use Smoking status: Never Smokeless tobacco: Never Substance Use Topics Alcohol use: Not Currently Alcohol/week: 8.0 standard drinks of alcohol Types: 8 Cans of beer per week Comment: sober since 11/2023 Home Medications: acetaminophen (TYLENOL) 500 mg tablet, Take 500 mg by mouth every 6 hours as needed for pain. ciprofloxacin (CIPRO) 500 mg tablet, Take 1 tablet (500 mg total) by mouth every 24 hours. lactulose 10 gram/15 mL solution, Take 15 mL (10 g total) by mouth 3 times a day. midodrine (PROAMATINE) 5 mg tablet, Take 3 tablets (15 mg total) by mouth every 8 hours. polyethylene glycol 3350 (MIRALAX) 17 gram packet, Take 1 packet (17 g total) by mouth daily as needed for constipation. Mix powder in 4 to 8 oz of water, juice, coffee, or tea prior to administration. rifAXIMin (XIFAXAN) 550 mg tablet, Take 1 tablet (550 mg total) by mouth every 12 hours. sodium chloride 0.9% injection, INJECT 0.3-1 SYRINGE (3-10 ML) BY INTRALUMINAL ROUTE EVERY 8 HOURS. traZODone (DESYREL) 50 mg tablet, Take 1 tablet (50 mg total) by mouth nightly as needed for sleep. Current Medications: Current Facility-Administered Medications: acetaminophen (TYLENOL) tablet 650 mg, 650 mg, oral, q4h PRN, Rachel Murray MD, 650 mg at 04/30/24519 cefTRIAXone (ROCEPHIN) 2 g in 0.9% NaCl 100 mL Mini-Bag Plus, 2 g, intravenous, q24h THOMAS, Damaris Brown MD, Last Rate: 200 mL/hr at 04/30/24912, 2 g at 04/30/24912 [On Hold by Provider] enoxaparin (LOVENOX) subcutaneous injection 40 mg, 40 mg, subcutaneous, Daily, Evin Reno MD, 40 mg at 04/27/24 175 flumazeniL (ROMAZICON) injection 0.2 mg, 0.2 mg, intravenous, q5min PRN, Rachel Murray MD furosemide (LASIX) tablet 40 mg, 40 mg, oral, Daily, Chris Grijalva MD, 40 mg at 04/30/24912 lactulose 20 gram/30 mL oral solution 20 g, 20 g, oral, 3x daily, Rachel Murray MD, 20 g at 04/30/24 1337 midodrine (PROAMATINE) tablet 15 mg, 15 mg, oral, q8h THOMAS, Rachel Murray MD, 15 mg at 04/30/24 1330 naloxone (NARCAN) injection 0.4 mg, 0.4 mg, intravenous, q2h PRN, Rachel Murray MD naloxone 0.04 mg injection, 0.04 mg, intravenous, q3min PRN, Rachel Murray MD rifAXIMin (XIFAXAN) tablet 550 mg, 550 mg, oral, q12h THOMAS, Rachel Murray MD, 550 mg at 04/30/24 1330 senna (SENOKOT) tablet 17.2 mg, 17.2 mg, oral, Nightly PRN, Rachel Murray MD IV Peripheral Line Care, , , Until discontinued AND sodium chloride 0.9% flush 2.5-10 mL, 2.5-10 mL, intravenous, See admin instructions AND sodium chloride 0.9% flush 2.5-10 mL, 2.5-10 mL, intravenous, q12h THOMAS, Rachel Murray MD, 10 mL at 04/30/24 0913 sodium chloride 0.9% flush 3-10 mL, 3-10 mL, intravenous, Flush, Rachel Murray MD Allergies: Patient has no known allergies. Review of Systems: Pertinent items are noted in HPI. Vitals: The vitals are BP 97/60 (BP Location: Left arm, Patient Position: Lying) Pulse 72 Temp 36.9 ??C(98.4 ??F) (Oral) Resp 19 Ht 1.803 m (5' 11 ) Wt 93 kg (205 lb) SpO2 95% BMI 28.59 kg/m?? Labs: Lab Results Component Value Date WBC 4.3 04/30/2024 HGB 11.4 (L) 04/30/2024 HCT 32.9 (L) 04/30/2024 MCV 92.9 04/30/2024 PLT 76 (L) 04/30/2024 Lab Results Component Value Date GLUCOSE 163 (H) 04/30/2024 CALCIUM 8.4 (L) 04/30/2024 NA 133 (L) 04/30/2024 K 4.5 04/30/2024 CO2 17 (L) 04/30/2024 CL 105 04/30/2024 BUN 21 04/30/2024 CREATININE 0.74 04/30/2024 EGFR >90 04/30/2024 Lab Results Component Value Date INR 1.7 04/30/2024 PT 17.8 (H) 04/30/2024 Lab Results Component Value Date ALBUMIN 3.1 (L) 04/30/2024 AST 46 (H) 04/30/2024 ALT 29 04/30/2024 BILITOT 3.7 (H) 04/30/2024 ALKPHOS 109 04/30/2024 MELD 3.0: 20 at 04/30/2024 4:01 AM MELD-Na: 20 at 04/30/2024 4:01 AM Calculated from: Serum Creatinine: 0.74 mg/dL (Using min of 1 mg/dL) at 04/30/2024 4:01 AM Serum Sodium: 133 mmol/L at 04/30/2024 4:01 AM Total Bilirubin: 3.7 mg/dL at 04/30/2024 4:01 AM Serum Albumin: 3.1 g/dL at 04/30/2024 4:01 AM INR(ratio): 1.7 at 04/30/2024 4:01 AM Age at listing (hypothetical): 63 years Sex: Male at 04/30/2024 4:01 AM Imaging/Other studies: I have personally reviewed the patient's imaging results Assessment/Plan: Nate Correa is a 63 y.o. male with new cirrhosis and recurrent SBP in the setting of cholecystostomy tube. Patient underwent ERCP yesterday with placment of CBD stent. Plan for repeat ERCP in 2 days to exchange stent and perform trancystic stenting with goal to remove cholecystostomy tube whichshould in turn decrease his risk for recurrent SBP. There was no mention of esophageal varices on the ERCP report. Patients encephalopathy is under control with lactulose and now rifaximin. MELD 17 today. Hepatology team to present patient for transplant this hospitalization. IR can proceed with outpatient TIPS for recurrent ascites requiring repeat paracentesis after discharge. 04/30/2024 2:02 PM Alondra Sage NP The referring provider, Dr Joseph , requested a consultation on patient, Nate Correa, regardingTIPS procedure. I personally reviewed the patient's medical records including Medical records, Image Studies, and Labs. I have not seen the patient face to face, during this consultation or within the last 14 days and they were not scheduled to be seen in the next 14 days or the next available appointment as a result of this consult. I spent a total of 45 minutes of which the majority was spent devoted to data review and analysis and my assessment is documented below. I have communicated with the referring provider and team by [employer] secure chat and over the phone: Cosigned by Malcolm Johnson MD at 05/27/2024 10:35 AM EST Associated attestation - Malcolm Johnson MD - 05/27/2024 10:35 AM EST RAM PRESS OPERATOR/PA note reviewed. Agree with above findings, assessment, and plan * Xiomara Schmid MD - 04/25/2024 10:12 AM ESTAssociated Order(s): IP CONSULT TO INFECTIOUS DISEASE - TRANSPLANT Transplant Infectious Disease Consult Date of admission: 04/24/2024 5:35 PM Consult requested by: Attending Provider: Natalio Lara MD [phone] Reason for consult: Recurrent secondary bacterial peritonitis Chief complaint: Abdominal discomfort and outpatient paracentesis positive for SBP History of present illness: Nate Correa is a 63 y.o. 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 Patient was diagnosed with cholecystitis and had a percutaneous drain placed 02/01/24 at [facility]. He was not a candidate for cholecystectomy due to new finding of liver cirrhosis and transaminitis. He then developed a clogged percutaneous cholecystostomy drain and developed secondary bacterial peritonitis with Klebsiella pneumoniae resistant only to ampicillin. Patient admitted at [facility] 04/11-04/19 for treatment and discharged with 3 more doses of ciprofloxacin for treatment. He finished course and did not start prophylactic ciprofloxacin until 2 days later. During this admission so far, patient has been afebrile, initially tachycardic to 102, and hemodynamically stable on room air. He presented with lactic acid of 3.3, WBC of 21. Blood cultures drawn yesterday NGTD. Peritoneal fluid cultures obtained 04/24 inpatient pending. Patient received 1 dose of ceftriaxone in the ED and subsequently was started on vancomycin/zosyn. MRSA swab pending. Patient states he has been doing well and his abdominal pain has resolved. He does not have any pain at the drain site. Denies fever, chills, shortness of breath. He also insists he does not have anyliver disease and is here due to his drain. Per his outpatient liver clinic notes, he is being considered for cholecystectomy pending safety of procedure. He is also having discussions regarding placement of dual transcystic duct stents to help facilitate removal of perc shay tube. Additional history was obtained from the patient's chart and previous notes from other ID physicians were reviewed and summarized as needed in the history of present illness. Review of systems: All other components of the review of systems are negative, except those described in the history of present illness. Past Medical History: Diagnosis Date ALC (alcoholic liver cirrhosis) (CMS/HCC) (HCC) Alcoholism (CMS/HCC) (HCC) sober since 11/2023 Hyperlipidemia Hypertension Prediabetes Past Surgical History: Procedure Laterality Date IR CHOLECYSTOSTOMY TUBE PLACEMENT TOE AMPUTATION TOTAL KNEE ARTHROPLASTY Left Social History Tobacco Use Smoking status: Never Smokeless tobacco: Never Vaping Use Vaping status: Never Used Substance Use Topics Alcohol use: Not Currently Alcohol/week: 8.0 standard drinks of alcohol Types: 8 Cans of beer per week Comment: sober since 11/2023 Drug use: Never Family History Problem Relation Age of Onset Other Mother unsure of medical history Myocardial Infarction Father Medications: enoxaparin, 40 mg, subcutaneous, Daily lactulose, 20 g, oral, 3x daily midodrine, 15 mg, oral, q8h THOMAS piperacillin-tazobactam, 3.375 g, intravenous, q8h THOMAS rifAXIMin, 550 mg, oral, q12h THOMAS rifAXIMin, 550 mg, oral, Once sodium chloride, 2.5-10 mL, intravenous, See admin instructions And sodium chloride, 2.5-10 mL, intravenous, q12h THOMAS vancomycin, 15 mg/kg, intravenous, q12h THOMAS Allergies: No Known Allergies Physical Exam: Temp: [36.4 ??C (97.6 ??F)-36.7 ??C (98.1 ??F)] 36.7 ??C (98.1 ??F) Heart Rate: [68-102] 83 Resp: [18-25] 20 BP: (97-114)/(61-76) 97/65 SpO2: [95 %-98 %] 97 % General appearance: no obvious distress, well nourished HEENT: normocephalic, atraumatic, no icterus, no conjunctival erythema, moist mucous membranes, no oral lesions CVS: regular rate and rhythm, no murmurs, S1+S2 Lungs: clear to auscultation bilaterally, no wheezing or rhonchi Abdomen: soft, distended, non-tender, bowel sounds audible, no palpable hepatosplenomegaly. Perc shay drain in place, dressing clean/dry/intact. MSK: no obvious abnormality, no major joint effusion Extremities: Lower extremity edema Skin: no obvious rashes or abnormal lesions Neuro: alert and oriented, no focal deficits Psych: appropriate mood and affect : normal genitalia Chronic catheters/lines Percutaneous cholecystostomy catheter Laboratory data: I have independently reviewed all recent lab results; including all microbiological data and culture results from previous years. Results from last 7 days Lab Units 04/25/24 0609 04/24/24 1302 WBC 10*3/uL 14.1* 21.0* HEMOGLOBIN g/dL 13.1* 14.7 HEMATOCRIT % 38.7 43.2 PLATELETS 10*3/uL 219 226 Results from last 7 days Lab Units 04/25/24 0609 04/24/24 1302 SODIUM mmol/L 130* 127* POTASSIUM mmol/L 4.2 5.0 CHLORIDE mmol/L 100 97* CARBON DIOXIDE mmol/L 17* 16* BUN mg/dL 24* 21 CREATININE mg/dL 1.05 1.00 TOTAL BILIRUBIN mg/dL 3.0* 3.3* ALKALINE PHOSPHATASE U/L 92 107 ALT U/L 24 25 AST U/L 39 35 GLUCOSE mg/dL 132* 157* Microbiology data: Specimen Date Organism Sensitivity Blood 04/24 NGTD Peritoneal Fluid 04/24 Gram stain 3+ PML and 2+ mononuclear cells Radiology: I have reviewed all imaging data available during this hospitalization independently. Antimicrobials: IV Vancomycin and Zosyn Impression: Nate Correa is a 63 y.o. 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 Patient has been afebrile, with downtrending lactic and white count since starting broad spectrum antibiotics. Peritoneal fluid cultures and blood cultures havebeen obtained and are pending. Recommend continuing broad spectrum coverage and de-escalating basedon cultures. Patient will ultimately need cholecystectomy/perc shay drain removed to prevent further infections, but that is pending finalization of plans with hepatology. Recommendations: Continue Vancomycin with trough 15-20 unitl cultures negative 48 hours Pip-tazo 3.375g IV q8h Further guidance pending culture results Definitive plan needed for cholecystostomy tube, as while gallbladder issue remains management of peritonitis likely difficult and complicated The plan of care was discussed with the primary hospital body team member - Dr. Zoe HAMMOND. Thank you for this consultation. Please don't hesitate to call the Transplant ID team for questionsor any acute changes in patient's clinical condition. Xiomara Schmid MD PGY-1 Transplant Infectious Diseases Nate Correa : 1960 CSN: [id number] Cosigned by Farhad Santana IV, MD at 04/25/2024 1:36 PM EST Associated attestation - Farhad Santana IV, MD - 04/25/2024 1:36 PM EST I saw and evaluated the patient. Case discussed with the resident/fellow and I agree with the findings and plan as documented in the resident's/fellow's note. I spent a total of 55 minutes on the date of encounter, which included: ?? Preparing to see the patient (e.g., review of test results) ?? Obtaining and/or reviewing separately obtained history ?? Performing a medically appropriate exam and/or evaluation ?? Counseling and educating the patient/family/caregiver ?? Documenting clinical information in the health record Farhad Santana IV, MD MS Transplant/General Infectious Disease Senior Caregivernewspaper vendor [facility] Computer Systems Software Architect [facility] P: 196 documented in this encounter ED Notes * Prieto Mclain MD - 04/24/2024 4:21 PM EST History HPI: Chief Complaint Patient presents with ? SEPSIS 63-year-old male with past medical history of alcohol use disorder, alcoholic cirrhosis, s/p percutaneous cholecystostomy tube placement presenting for evaluation with 3 days of worsening abdominal swelling with associated abdominal pain, nausea. Patient reports that he is undergoing evaluation forconsideration of liver transplant and was seen at the transplant clinic today, where he received a paracentesis. He states that he was driving home when he was contacted and notified of abnormal lab results and admonished to present to the ED. Patient denies fevers, shortness of breath, vomiting, chest pain. He has not noted blood in his recent stools or coughed up blood. Patient History Past Medical History: Diagnosis Date ??? ALC (alcoholic liver cirrhosis) (CMS/HCC) (HCC) ??? Alcoholism (CMS/HCC) (HCC) sober since 11/2023 ??? Hyperlipidemia ??? Hypertension ??? Prediabetes Past Surgical History: Procedure Laterality Date ??? IR CHOLECYSTOSTOMY TUBE PLACEMENT ??? TOE AMPUTATION ??? TOTAL KNEE ARTHROPLASTY Left Family History Problem Relation Age of Onset ??? Other Mother unsure of medical history ??? Myocardial Infarction Father Social History Tobacco Use ??? Smoking status: Never ??? Smokeless tobacco: Never Vaping Use ??? Vaping status: Never Used Substance Use Topics ??? Alcohol use: Not Currently Alcohol/week: 8.0 standard drinks of alcohol Types: 8 Cans of beer per week Comment: sober since 11/2023 ??? Drug use: Never Vaping Questions Responses Vaping Use Never User Sexuality and Gender Identity Sexuality Patient's sexual orientation: Straight Legal Information Legal first name: Nate Legal last name: Sunny Legal sex: Male Gender Identity Patient's gender identity: Male Patient's sex assigned at : Male Organ Inventory Organs the patient currently has: Organs present at or expected at to develop: Organs surgically enhanced or constructed: Organs hormonally enhanced or developed: breasts cervix ovaries uterus vagina penis prostate testes Review of Systems REVIEW OF SYSTEMS: As per HPI Physical Exam Physical Exam ED Triage Vitals [04/24/24 1656] Temp Heart Rate Resp BP SpO2 36.7 ??C (98.1 ??F) (!) 101 18 99/69 98 % Temp Source Heart Rate Source Patient Position BP Location Set FiO2 (O2%) Oral Monitor Sitting Right arm -- Physical Exam Vitals reviewed. Constitutional: General: He is not in acute distress. Appearance: Normal appearance. He is not ill-appearing or diaphoretic. HENT: Head: Normocephalic and atraumatic. Cardiovascular: Rate and Rhythm: Normal rate and regular rhythm. Heart sounds: Normal heart sounds. No murmur heard. Comments: Extremities are warm and well-perfused. Pulmonary: Effort: Pulmonary effort is normal. No respiratory distress. Breath sounds: Normal breath sounds. No wheezing or rales. Abdominal: General: There is no distension. Tenderness: There is no abdominal tenderness. There is no guarding. Comments: There is ascites present. There is mild rebound tenderness. There is a percutaneous cholecystostomy in place in the right upper quadrant which appears patent with output into the collectingbag. Musculoskeletal: Right lower leg: No edema. Left lower leg: No edema. Skin: General: Skin is warm and dry. Coloration: Skin is not jaundiced. Neurological: Mental Status: He is alert and oriented to person, place, and time. Motor: No weakness. Gait: Gait normal. Psychiatric: Mood and Affect: Mood normal. Behavior: Behavior normal. Medical Decision Making and ED Course Assessment and Plan: 63-year-old male with past medical history of alcohol use disorder, alcoholic cirrhosis, s/p percutaneous cholecystostomy tube placement presenting for evaluation with 3 days of worsening abdominal swelling with associated abdominal pain, nausea. -Fevers. -Hematemesis. Review of medical record shows cell count from recently collected peritoneal fluid with a significant ANC indicative of spontaneous bacterial peritonitis. Patient has otherwise been without evidence of upper respiratory infection or urinary tract infection. There is no elevation in creatinine to suggest hepatorenal syndrome, therefore we will forego albumin administration. Patient is at his mental baseline signs or symptoms of hepatic encephalopathy. His LFTs, bilirubin are reassuring. We will obtain blood cultures in order to rule out sepsis. We will initiate antibiotic treatment with 1 g ceftriaxone daily. Patient will require admission to the hospital for ongoing treatment. ED Course as of 04/24/24 1803 Shirin Apr 24, 2024 1800 Attending NOte: 63 y/o M with a PMH of severe liver cirrhosis (MELD 20+ undergoing transplant eval) who presented to the office with increased abdominal pain and distension. Unfortunately, labs show SBP with ANC 1000+ [RS] ED Course User Index [RS] MD Nate Espinal : 1960 CSN: [id number] Prieto Mclain MD Resident 04/25/24 1554 Cosigned by Dana Samuels MD at 04/25/2024 5:12 PM EST Associated attestation - Dana Samuels MD - 04/25/2024 5:12 PM EST Attending to Resident/Fellow - I saw and evaluated the patient. I discussed the case with the resident(s)/fellow(s) and agree with the findings and plan as documented by the resident(s)/fellow(s). Abarca elements, clarifications and/or exceptions are noted by me. Nate Correa : 1960 CSN: [id number] documented in this encounter Miscellaneous Notes * Plan of Care - Anny Reis RN - 05/03/2024 12:08 PM EST Case Management Discharge note: Pertinent Clinical and medical clearance : Pt discussed with Dr. Hilario Lepe. Pt med ready to discharge. MD spoke to spouse, she is in agreement with discharge plan. He will have VNA services with [facility], SN, PT. MD put in for OT eval but pt refused. CM will fax order to them and have asked them to call spouse to come see him because pt often does not answer his phone if in pain, etc. She will provide transportation home this afternoon. Final Discharge Plan: Home with outpatient follow up and [facility] for SN,PT. Transportation home by spouse. Communicated with HCP/Caregiver-yes, Sana * Plan of Care - Sarah Adams RN - 05/03/2024 11:26 AM EST Patient alert, able to make needs known, answers questions appropriately, flat/demanding/terse whenconversing with staff. Patient amenable to taking lactulose this AM. Patients magnesium repleted via IV, tolerated infusion well; potassium repleted orally. Continues on IV ceftriaxone; tolerated infusion well. Patient safety maintained, bed in low position, call light within reach, no unsafe behavior observed. * Plan of Care - Carolina Dillon OT - 05/03/2024 11:10 AM EST Occupational Therapy OT notified that pt was a potential d/c home this date. Attempted to see pt for evaluation this AM,pt declined stating he would not get up, he just did and that and he already had a physical therapyevaluation. Educated pt on the role of OT and POC, however pt continued to declined. Team notified. Carolina Dillon, MIRZA, OTR/L [place] License #[id number] * Hospital Course - Alexei Lepe MD - 05/03/2024 10:58 AM EST 63M with PMH alc cirrhosis (getting transplant workup), obesity, pre-diabetes, 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 Found to be septic upon arrival to ED and started on zosyn and vancomycin then transitioned to ceftriaxone. Paracentesis completed 04/29 with 1.6L fluid removed. ERCP completed 04/30 with difficult cannulation. CBD stent placed and subsequently underwent transcystic stenting and stent exchange on repeat ERCP. He tolerated the procedure well and tolerated a diet afterwards. He will be discharged with instructions to follow- up with his outpatient hepatologistto coordinate repeat ERCP in about 2 months for stent removal and re-attempt at adequate drainage (05/02) and to discuss possibility of undergoing TIPS procedure. He will be discharged on 20 mg Lasix daily and spironolactone 50 mg daily and will take ciprofloxacin 500 mg daily for SBP prophylaxis. Hewas counseled on the importance of adhering to his lactulose and rifaximin regimen in addition to ahigh-protein, low-sodium diet. On discharge: - Follow-up with outpatient transit mechanic, has appointment on 07/08/2024. Encouraged patient to try to schedule for sooner follow-up - Will need ERCP in about 2 months for stent removal and re-attempt at adequate drainage (05/02). Will also need to discuss potential TIPS procedure with outpatient transit mechanic - Lasix 20 mg daily and spironolactone 50 mg daily - Will start ciprofloxacin 500 mg daily for SBP prophylaxis - Continue lactulose 30 g 3 times daily to titrate bowel movements 3-5 daily in addition to rifaximin 550 mg twice daily SBP (spontaneous bacterial peritonitis) More likely to be secondary bacterial peritonitis as he recently had a hospitalization 04/11-04/19 for clogged percutaneous cholecystectomy tube causing septic shock from secondary bacterial peritonitis. Growing Klebsiella at the time resistant to ampicillin only. He has a percutaneous cholecystectomy tube placed Jan 2024 due to cholecystitis and acute on chronic liver failure at the time precluding cholecystectomy. S/p CTX in ED x1 followed by vancomycin and zosyn, vanco discontinued on 04/27. Paracentesis completed 04/29 with 1.6L fluid removed. ERCP completed 04/30 with difficult cannulation. CBD stent placed with plan for transcystic stenting and stent exchange on repeat ERCP (05/02). Given complicated anatomy, unclear if there will be adequate drainage. Therefore, he will need to have a repeatERCP in about 2 months to remove stents and reattempt at adequate drainage. He will be discharged with ciprofloxacin 500 mg daily for SBP prophylaxis. Abx: Vanco (04/25-04/27) Zosyn (04/24-04/27) CTX (04/28-05/02) Sepsis (HCC) Sepsis with WBC 21, tachycardia, and tachypnea. Source confirmed SBP. Will send for other infectious workup (CXR, UA with culture reflex, BCX pending). Holding off on fluid resuscitation given adequate BP and volume overload at baseline necessitating daily diuretics as well as hyponatremia. Startedon abx as above. Reduced lactic acid clearance likely iso hepatic dysfunction (3.3>>>1.6) that improved with albumin administration. 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 Previous decompensations of ascites, SBP on ppx, HE. Follows with. [facility] outpatient. Somewhat of a recent diagnosis Jan 2024. Initially at that time his MELD was 35 but downtrended to 14 on discharge. On this admission, he was maintained on Lasix and spironolactone was held in setting of metabolic acidosis. His lactulose and rifaximin was continued however, the patient intermittently refused during the admission. He was given an albumin challenge perSBP protocol. On discharge, he will be discharged with 20 mg Lasix and 50 mg spironolactone in addition to lactulose and rifaximin. MELD at the time of discharge this admission was 16. Decompensation history Varices: unknown, needs screening EGD Ascites: on diuretics as above. Para outpatient with IR on day of admission draining 1.7L and totalhad 3 radha (04/14 draining about 5L, 04/18 about 5L, and day of admission), 2/ 1.6 L removed although noted to be loculated HE: history of HE, now on lactulose and rifaximin SBP: yes most recently earlier this month Workup: CT 3 Phase: no focal liver lesions, splenic enlargement, gastric fundal and paraesophageal varices.No gross ascites. Moderate left-sided pleural effusion. Hyponatremia Presentated with Na 127, improved with albumin administration. - Home diuretics as above - Outpatient fluid restriction of 1.2L liberalized iso sepsis Hyperlipidemia Pt states not taking simvastatin 5mg daily Moderate protein-calorie malnutrition (CMS/HCC) High protein diet, protein shakes. Pt says he does not like Ensure. * Plan of Care - Amy Lipscomb RN - 05/02/2024 6:36 PM EST Problem: Adult Inpatient Plan of Care Goal: Plan of Care Review Outcome: Ongoing (interventions implemented as appropriate) Assumed care of pt from [id number]. Pt A+O, VSS, on RA. Pt ambulates SBA with walker OOB to void, continent. Pt refused am Lasix and Lactulose, aware. bedside in am, concerned about him going home and being alone d/t his changing mental status from not continuously taking his meds, test case developer and provider aware. Pt was off the floor all afternoon, had ERCP returned right before shift change. Bed alarm on. Safety maintained, frequent purposeful rounding completed. * Assessment & Plan Note - Damaris Enriquez MD - 05/02/2024 4:32 PM EST Associated Problem(s): SBP (spontaneous bacterial peritonitis) (HCC) (Resolved 05/03/2024) More likely to be secondary bacterial peritonitis as he recently had a hospitalization 04/11-04/19 for clogged percutaneous cholecystectomy tube causing septic shock from secondary bacterial peritonitis. Growing Klebsiella at the time resistant to ampicillin only. He has a percutaneous cholecystectomy tube placed Jan 2024 due to cholecystitis and acute on chronic liver failure at the time precluding cholecystectomy. S/p CTX in ED x1 followed by vancomycin and zosyn, vanco discontinued on 04/27. Paracentesis completed 04/29 with 1.6L fluid removed. ERCP completed 04/30 with difficult cannulation. CBD stent placed with plan for transcystic stenting and stent exchange on repeat ERCP (05/02) Workup: Bcx: NGTD CXR: dense consolidation collapse and effusion at left lung base UA: no bacteria MRSA/Staph aureus negative TNC/WBC: 363 Peritoneal fluid Cx: pending - Transplant ID following - Repeat ERCP 05/02 for stent exchange and transcystic stent placement - CLD post procedure then ADAT tomorrow (04/02) - s/p vanc iso negative blood cx and neg MRSA (04/25-04/27) - s/p Zosyn (D1: 04/24-04/27) - Continue ceftriaxone (D1: 04/28-), 7-10 day course total and through procedures - Transition to ciprofloxacin 500 mg daily for SBP prophylaxis after completing ceftriaxone - Flush drain 3 times a day - Continue acetaminophen 650 q4h PRN - Monitor for pancreatitis, bleeding, perforation, and cholangitis post ERCP * Assessment & Plan Note - Damaris Enriquez MD - 05/02/2024 4:19 PM EST Associated Problem(s): Decompensated cirrhosis (HCC) Home meds: ciprofloxacin 500mg daily, lactulose 10 g 3 times a day, rifaximin 550 mg every 12 hours, midodrine 15 mg every 8 hours, spirolactone 50mg daily, furosemide 20mg daily 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 Previous decompensations of ascites, SBP on ppx, HE. Follows withDr. Low outpatient. Somewhat of a recent diagnosis Jan 2024. Initially at that time his MELD was 35 but downtrended to 14 on discharge. On day of admission, was instructed to hold home diuretics iso hyponatremia. MELD 3.0: 15 at 05/02/2024 4:10 AM MELD-Na: 16 at 05/02/2024 4:10 AM Calculated from: Serum Creatinine: 0.53 mg/dL (Using min of 1 mg/dL) at 05/02/2024 4:10 AM Serum Sodium: 135 mmol/L at 05/02/2024 4:10 AM Total Bilirubin: 2.2 mg/dL at 05/02/2024 4:10 AM Serum Albumin: 3.2 g/dL at 05/02/2024 4:10 AM INR(ratio): 1.5 at 05/02/2024 4:10 AM Age at listing (hypothetical): 63 years Sex: Male at 05/02/2024 4:10 AM Decompensation history Varices: unknown, needs screening EGD Ascites: on diuretics as above. Para outpatient with IR on day of admission draining 1.7L and totalhad 3 radha (04/14 draining about 5L, 04/18 about 5L, and day of admission), 04/29 1.6 L removed although noted to be loculated HE: history of HE, now on lactulose and rifaximin SBP: yes most recently earlier this month Workup: CT 3 Phase: no focal liver lesions, splenic enlargement, gastric fundal and paraesophageal varices.No gross ascites. Moderate left-sided pleural effusion. Plan Diuresis: continue lasix 40mg daily, hold spironolactone 50mg daily, resume home regimen at discharge Encephalopathy: continue home lactulose, continue rifaximin (appears to have been added day of arrival in clinic) Continue home midodrine Abx as above for SBP Low salt, high protein diet S/p Albumin 1.5g/kg D1 04/25, albumin 1g/kg D3 for fluid overload IR consult for outpatient TIPS for refractory ascites PT/OT consult * Plan of Care - Magnolia Mix RN - 05/02/2024 11:53 AM EST Case Management Continued Stay Review: Pertinent Clinical impacting hospitalization, level of care update, if indicated :patient now combative with and RN he is saying he is leaving . MD to see him @ bedside. Await OT eval and iff MDcan get him to take lactulose Discharge Planning:has VNA may need rehab for cognition Discharge Barrier: Discharge Plan: Choice list (with star ratings) provided / discussed, if indicated (Y or NA): * Plan of Care - Magnolia Mix RN - 05/02/2024 11:40 AM EST Case Management Continued Stay Review: Pertinent Clinical impacting hospitalization, level of care update, if indicated :met with in [facility] and she has concerns about patient going home / he has encephalopathy and thinks he will dc home and snow blow tomorrow after snow comes. 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 Await OT to clear for dc home with and [facility] Discharge Planning:home vs rehab Discharge Barrier: Discharge Plan: Choice list (with star ratings) provided / discussed, if indicated (Y or NA): * Assessment & Plan Note - Damaris Enriquez MD - 05/02/2024 7:27 AM EST Associated Problem(s): Sepsis (HCC) (Resolved 05/03/2024) Sepsis with WBC 21, tachycardia, and tachypnea. Source confirmed SBP. Will send for other infectious workup (CXR, UA with culture reflex, BCX pending). Holding off on fluid resuscitation given adequate BP and volume overload at baseline necessitating daily diuretics as well as hyponatremia. Startedon abx as above. Reduced lactic acid clearance likely iso hepatic dysfunction (3.3>>>1.6) that improved with albumin administration. -See #SBP and #Decompensated cirrhosis for plan * Assessment & Plan Note - Damaris Enriuqez MD - 05/02/2024 7:27 AM EST Associated Problem(s): Hyponatremia (Resolved 05/03/2024) Presentated with Na 127, improved with albumin administration. - Home diuretics as above - Outpatient fluid restriction of 1.2L liberalized iso sepsis * Assessment & Plan Note - Damaris Enriquez MD - 05/02/2024 7:27 AM EST Associated Problem(s): Hyperlipidemia Pt states not taking simvastatin 5mg daily * Assessment & Plan Note - Damaris Enriquez MD - 05/02/2024 7:27 AM EST Associated Problem(s): Moderate protein-calorie malnutrition (CMS/HCC) High protein diet, protein shakes. Pt says he does not like Ensure. * Plan of Care - Alem Brambila RN - 05/02/2024 6:59 AM EST During second shift supervisor, patient is a&ox4, RR even and unlabored on room air, no distress noted. Fall and safety precaution maintained through the night. Dressing to the left and right upper abdomen are CDI. Patient has been NPO except meds and ice chips since midnight. * Plan of Care - Desirae Olea RN - 05/01/2024 6:29 PM EST Problem: Adult Inpatient Plan of Care Goal: Plan of Care Review Outcome: Ongoing (interventions implemented as appropriate) Pt is A&O x4. VSS. Pt refusing MD cholo aware. Medicated per MAY. PRN tylenol given this afternoon and evening d/t ab pain. Independent up to toilet with walker. Voiding spontaneously, BM x3 thisshift. Biliary tube dressing intact, no drainage noted today. Q8 drain flush completed. Pt will be NPO at midnight d/t stent exchange scheduled for tomorrow. Plan to d/c home tomorrow after procedure. Safety maintained. Call gaston within reach. PHR performed. * Plan of Care - Anny Reis RN - 05/01/2024 3:38 PM EST Case Management Continued Stay Review: Pertinent Clinical impacting hospitalization, level of care update, if indicated : Pt discussed with Alexei Lepe MD. Pt to be NPO tonight and have biliary stent exchange tomorrow andcan likely discharge after that. He has cleared PT this AM for home. ASHLIE met with pt at bedside. He was not happy with VNA and does not necessarily want them back in home. ASHLIE spoke to spouse. She would like her number given to them so they can call her before visiting. If they call the pt and he is not feeling well, he won't answerhome. He had one nursing visit and PT never came because he was readmitted to hospital. CM spoke to spouse and she wanted him to go to SNF. We discussed his insurance not likely approvingrehab when he cleared PT and they signed off. He can resume SN/PT with [facility] at home. Referral placed, they are following.When discharging, CM can fax order: [facility] (f) [phone]. ASHLIE told spouse, Sana, that pt would likely discharge after stent placement tomorrow and she hopes pt can stay another day to be sure stent is ok, and go home on Sunday. Message sent to team via secure chat. Discharge Planning: Discharge Barrier: medical stability Discharge Plan: home with [facility] for SN,PT. Spouse to transport. Choice list (with star ratings) provided / discussed, if indicated (Y or NA): * Assessment & Plan Note - Damaris Enriquez MD - 05/01/2024 11:29 AM EST Associated Problem(s): SBP (spontaneous bacterial peritonitis) (HCC) (Resolved 05/03/2024) More likely to be secondary bacterial peritonitis as he recently had a hospitalization 04/11-04/19 for clogged percutaneous cholecystectomy tube causing septic shock from secondary bacterial peritonitis. Growing Klebsiella at the time resistant to ampicillin only. He has a percutaneous cholecystectomy tube placed Jan 2024 due to cholecystitis and acute on chronic liver failure at the time precluding cholecystectomy. S/p CTX in ED x1 followed by vancomycin and zosyn, vanco discontinued on 04/27. Paracentesis completed 04/29 with 1.6L fluid removed. ERCP completed 04/30 with difficult cannulation. CBD stent placed with plan for transcystic stenting and stent exchange on repeat ERCP. Workup: Bcx: NGTD CXR: dense consolidation collapse and effusion at left lung base UA: no bacteria MRSA/Staph aureus negative TNC/WBC: 363 Peritoneal fluid Cx: pending - Transplant ID following - s/p vanc iso negative blood cx and neg MRSA (04/25-04/27) - s/p Zosyn (D1: 04/24-04/27) - Continue ceftriaxone (D1: 04/28-), 7-10 day course total and through procedures - Per ID, transition to ciprofloxacin 500 mg daily for SBP prophylaxis after completing ceftriaxone - Flush drain 3 times a day - Continue acetaminophen 650 q4h PRN - Repeat ERCP 05/02 for stent exchange and transcystic stent placement, NPO @ MN - Monitor for pancreatitis, bleeding, perforation, and cholangitis post ERCP * Plan of Care - Moy Tang PT - 05/01/2024 10:48 AM EST Images from the original note were not included. Problem: Adult Inpatient Plan of Care Goal: Plan of Care Review Flowsheets (Taken 05/01/2024 1048) Plan of Care Reviewed With: patient Plan of Care Summary: PT evaluation rendered this AM. Patient ambulated 100ft x2 and navigated 6 steps with use of handrail safely. Patient cleared PT, recommend d/c to home when medically ready. PT to sign off, please re-consult if needed. Physical Therapy Physical Therapy Initial Assessment / Discharge Summary Patient Name: Nate Correa Date of Evaluation: 05/01/2024 Default Flowsheet Data (Last 12 Hours) PT Plan and Recommendation Row Name 05/01/24 0950 Clinical Impression Patient/Family Goals Statement I want to get out of here Criteria for Skilled Therapeutic Interventions Met no problems identified which require skilled intervention Therapy Frequency N/A PT Anticipated Equipment Needs at Discharge (none) PT Anticipated Discharge Disposition home;home with family PT - OK to Discharge ? Yes Plan of Care Review Plan of Care Reviewed With: patient Physical therapy evaluation level based on elements of the patient???s history, examination of bodysystems, clinical presentation, and complexity of clinical decision making, as documented in the EMR, in accordance with CMS CPT code standards. 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 He had cholecystitis Jan 2024 and had a percutaneous drain placed 02/01/24 at [facility]- at the time due to new finding of liver cirrhosis and transaminitis he was not a candidate for cholecystectomy. He then recently developed SBP (secondary bacterial peritonitis) with Klebsiella resistant only to ampicillin recently in the setting of clogged percutaneous cholecystectomy drain. He was admitted here 04/11-04/19 for treatment of the bacterial peritonitis and discharged on Sunday with 3 more doses of ciprofloxacin for treatment. He finished the course on Sunday evening, however didnot know that he was also suppose to be on ciprofloxacin for prophylaxis after that was done. In the ED, he was afebrile, heart rate 80-100, blood pressure around 100 systolic. On room air. BMPnotable for mild hyponatremia, LFTs normal. 04/24: Paracentesis performed, 1.7L of fluid removed 04/24: Chest X ray: Interval onset dense consolidation collapse and effusion at the left lung base. High diaphragms and low lung volumes otherwise as before. Heart size remains top normal. 04/25: CT 3 Phase liver mass with pelvis: Decompensated cirrhosis. No focal liver lesions. Splenic enlargement, gastric fundal and paraesophageal varices. Gross ascites.Moderate left-sided pleural effusion. 04/27: US Abdomen: Decompressed gallbladder containing gallstones and cholecystostomy tube. Mildly prominent extra hepatic biliary tree, the common bile duct measures 7 mm, upper limit of normal.Ascites Per chart: lives with , 6 VIVI with railing, independent with ADL/iADLs. PT consulted 04/30 Up as tolerated Patient Active Problem List Diagnosis Decompensated cirrhosis (HCC) SBP (spontaneous bacterial peritonitis) (HCC) Sepsis (HCC) Cholecystitis Hyperlipidemia Insomnia Moderate protein-calorie malnutrition (CMS/HCC) Hyponatremia Past Medical History: Diagnosis Date ALC (alcoholic liver cirrhosis) (CMS/HCC) (HCC) Alcoholism (CMS/HCC) (HCC) sober since 11/2023 Hyperlipidemia Hypertension Prediabetes Past Surgical History: Procedure Laterality Date IR CHOLECYSTOSTOMY TUBE PLACEMENT [place] ERCP DX COLLECTION SPECIMEN BRUSHING/WASHING N/A 04/29/2024 Procedure: ENDOSCOPIC RETROGRADE CHOLANGIOPANCREATOGRAPHY, DIAGNOSTIC WITH POSSIBLE BRUSHING OR WASHING AND POSSIBLE MODERATE SEDATION; Surgeon: Rachel Murray MD; Location: [facility] GI [facility]; Service: Gastroenterology TOE AMPUTATION TOTAL KNEE ARTHROPLASTY Left Vitals Default Flowsheet Data (Last 12 Hours) Adult PT Evaluation/Treatment Row Name 05/01/24 9293 General Information Patient Profile Review yes General Observations of Patient Pre/post rx: patient semi supine in bed, PIV RUE, biliary tube RUQ,call gaston within reach, all needs met Precautions/Restrictions fall;safety Row Name 05/01/24 0863 Certified Adaptive Physical Educator Services Certified Adaptive Physical Educator Needed No Row Name 05/01/24 8777 Living Environment Lives With spouse Living Arrangements house Home Accessibility bed and bath on same level;grab bars present for bathtub;grab bars present for toilet;stairs to enter home Number of Stairs to Enter Home 6 total, 1+2+3 into breezeway, then in to home Stair Railings at Home other (see comments) At least 1 railing present t/o all steps into home Number of Floors 1 Home Care Services No Default Flowsheet Data (Last 12 Hours) Adult PT Focused Evaluation/Treatment Row Name 05/01/24 0950 Equipment Details Equipment in the home Ambulation (row);Elimination Aids (row);Shower/Tub (row) Ambulation cane - straight;walker - rolling Elimination Aids grab bar Shower/Tub grab bar;shower chair Row Name 05/01/24 0950 Functional Level Prior Bed Mobility independent Transferring independent Ambulation modified independent Ambulation Assistive Device walker, rolling Patient reports using walker intermittently Stairs modified independent Stairs Assistive Device handrail Toileting modified independent Toileting Assistive Device grab bar by toilet Bathing modified independent Bathing Assistive Device shower chair;grab bar in tub/shower Dressing independent Eating independent Communication understands/communicates without difficulty Prior Functional Level Comment Pt splits household responsibilities with . 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 Row Name 05/01/24 0950 Hearing Hearing Status WF Row Name 05/01/24 0950 Vision Assessment/Intervention Visual Impairment/Limitations WF Row Name 05/01/24 0950 Cognitive Assessment/Intervention Attention (Cognitive) WNL/WFL Behavior/Mood Observations (Cognitive) alert;agitated Follows Commands/Answers Questions (Cognitive) 100% of the time;able to follow multi-step instructions;able to follow single-step instructions Personal Safety (Cognitive) decreased insight to deficits Short/Penitentiary Memory (Cognitive) short term memory intact;lobsterman memory intact Orientation Status (Cognitive) oriented x 4 Comments (Cogntive Assessment) Pt states that he doesn't always use RW while at home, but always has it nearby Row Name 05/01/24 0950 Sensory Assessment (Somatosensory) Sensory Assessment (Somatosensory) LE sensation intact;bilateral LE Bilateral LE Sensory Assessment light touch awareness Row Name 05/01/24 0950 Safety Issues, Functional Mobility Impairments Affecting Function (Mobility) endurance/activity tolerance Row Name 05/01/24 0950 General UE Assessment Upper Extremity: Range of Motion LUE ROM was WFL;RUE ROM was WFL Row Name 05/01/24 0950 General LE Assessment Lower Extremity: Range of Motion LLE ROM was WFL;RLE ROM was WFL Row Name 05/01/24 0950 MMT (Manual Muscle Testing) Additional Documentation lower extremity strength deficits identified Row Name 05/01/24 0950 MMT: Lower Extremity Lower Extremity: Manual Muscle Testing left LE strength is WFL;right LE strength is WFL Lower Extremity: Manual Muscle Testing Detail BLE grossly 4+/5 Row Name 05/01/24 0950 Balance Assessments Balance Assessments Static Sitting Balance;Dynamic Sitting Balance;Static Standing Balance;Dynamic Standing Balance Row Name 05/01/24 0950 Static Sitting Balance Static Sitting Position sitting, edge of bed Static Sitting Assistance Supervision Static Sitting Trunk Support Bilateral Upper Extremities;Bilateral Lower Extremities Row Name 05/01/24 0950 Dynamic Sitting Balance Dynamic Sitting Position sitting, edge of bed Dynamic Sitting Assistance Supervision Dynamic Sitting Trunk Support One Upper Extremity;Bilateral Lower Extremities Dynamic Sitting Comment anterior scoot Row Name 05/01/24 0950 Static Standing Balance Static Standing Assistance Supervision Static Standing Extremity Support Bilateral upper extremities;Bilateral lower extremities Static Standing Assistive Devices gait belt;walker, rolling Row Name 05/01/24 0950 Dynamic Standing Balance Dynamic Standing Assistance Supervision Dynamic Standing Extremity Support Bilateral upper extremities;One lower extremity Dynamic Standing Assistive Devices gait belt;walker,rolling Dynamic Standing Comment Pt observed to stand on one leg to stretch knee by repeatedly flexing/exending Row Name 05/01/24 0950 Bed Mobility Assessment/Treatment Scoot/Bridge [place] (Bed Mobility) independent Pherks-wf-Dcv [place] (Bed Mobility) independent Tau-kh-Fpzzoo [place] (Bed Mobility) independent Row Name 05/01/24 0950 Transfer Assessment/Treatment Sit-Stand [place] level (Transfers) supervision required Stand-Sit [place] level(Transfers) supervision required Dze-Madwt-Yvs Assistive Device (Transfers) gait belt;walker, rolling Row Name 05/01/24 0950 Gait Assessment/Treatment [place] (Gait) supervision required Assistive Device (Gait) gait belt;walker, rolling Distance in Feet (Gait) 100 x2 Gait Pattern Analysis swing-through gait Gait Deviations gilda, decreased;step length, decreased Comment (Gait) Safely able to ambulate with RW, observed to pick walker up while turning, requiringVC to correct. No overt LOB noted Row Name 05/01/24 0950 Stairs Assessment/Treatment Number of Stairs (Stairs) 6 Handrail Location (Stairs) right side (ascending) [place] (Stairs) modified independence;supervision required Assistive Device (Stairs) gait belt;handrail Technique (Stairs) [id number] (ascending);side-stepping Comment (Stairs) Side stepping while descending Row Name 05/01/24 0950 AM-PAC AM-PAC With Stairs Row Name 05/01/24 0950 IP AM-PAC Basic Mobility '6 Clicks'(With Stairs) Turning in Bed Without Bedrails 3 Lying on Back to Sitting on Edge of Flat Bed 3 Moving Bed to Chair 3 Standing Up from Chair 3 Walk in Room 3 Climbs 3-5 Steps 3 IP Mobility Raw Score 18 CMS 0-100% Score 46.58 % CMS G Code Modifier:Current status ([id number]) CK Standardized T-Scale Score 43.63 Row Name 05/01/24 0950 Clinical Impression Patient/Family Goals Statement I want to get out of here Criteria for Skilled Therapeutic Interventions Met no problems identified which require skilled intervention Therapy Frequency N/A PT Anticipated Equipment Needs at Discharge (none) PT Anticipated Discharge Disposition home;home with family PT - OK to Discharge ? Yes Row Name 05/01/24 0950 Plan of Care Review Plan of Care Reviewed With patient Row Name 05/01/24 0950 Discharge Summary Reason for Discharge no further needs identified Row Name 05/01/24 0950 PT Eval/ Treat- Additional Details Document Type Initial Evaluation;Discharge evaluation/summary PT Date of Initial Eval/Re-Eval 05/01/24 PT Ordered Same Day as RADHA? No PT Treatment Received On 05/01/24 Patient Effort good Symptoms Noted During/After Treatment none PT Goal Summary (all recorded) PT Rehab Goal Summary No documentation. Moy Tang PT Licensure: [place] MA: [id number] * Plan of Care - Bridget Dumont RD - 05/01/2024 8:43 AM EST NUTRITION NOTE Level Of Malnutrition: Nonsevere (Moderate) Malnutrition Malnutrition present on admission?: Yes Malnutrition in the Context of Chronic Illness Energy Intake (% of estimated energy requirement): </equal 75% for >/equal 1 month Loss of Body Fat: (Moderate - buccal, orbital) Loss of Muscle Mass: (Moderate - temples, clavicle, shoulders) Interventions / Recommendations: Continue Sodium Restricted (2300 mg), High Protein diet as ordered Offered available ONS in-house, pt declined Encouraged PO intake as tolerated; emphasized importance of protein intake, along w/ meeting calorie needs Recommend vitamin D supplementation Please obtain measured weight Nutrition Education: Provided Cirrhosis diet handout; verbally reviewed w/ via phone Assessment: Patient seen today for initial assessment. Reason For Assessment: identified at risk by screening criteria, initial assessment Past Medical History: Diagnosis Date ALC (alcoholic liver cirrhosis) (CMS/HCC) (HCC) Alcoholism (CMS/HCC) (HCC) sober since 11/2023 Hyperlipidemia Hypertension Prediabetes Past Surgical History: Procedure Laterality Date IR CHOLECYSTOSTOMY TUBE PLACEMENT [place] ERCP DX COLLECTION SPECIMEN BRUSHING/WASHING N/A 04/29/2024 Procedure: ENDOSCOPIC RETROGRADE CHOLANGIOPANCREATOGRAPHY, DIAGNOSTIC WITH POSSIBLE BRUSHING OR WASHING AND POSSIBLE MODERATE SEDATION; Surgeon: Rachel Murray MD; Location: [facility] GI OR; Service: Gastroenterology TOE AMPUTATION TOTAL KNEE ARTHROPLASTY Left Patient Summary 63 y.o./male w/ PMHx significant for alcohol-related liver cirrhosis undergoing transplant workup, hypertension, recent hospitalization involving SBP, prediabetes, obesity, 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 Nutrition Assessment Pt seen today for Initial Nutrition Assessment; MST=5, 34# or more unintentional wt loss, decreasedappetite/intake. Met w/ pt in room this AM. 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 Pt has been trying to prioritize protein intake, enjoys sami yogurt, eggs. Pt's has been making him smoothies at home w/ protein powder. Pt endorses ongoing early satiety. PIQ=209#, pt reports weighing this 3-4 months ago, endorses wt/muscle loss. Wt hx reviewed, available wts limited and currentweight is stated but pt w/ 6.7% unintentional wt loss x1 month if current wt is accurate. Suspect some wt loss 2/2 fluid loss but pt likely w/ true weight loss as well. No N/V/C, +loose stools on lactulose. Denies any difficulty chewing/swallowing. Reviewed importance of protein intake, along w/ overall adequate calorie intake. Offered available ONS in-house (pt previously enjoyed Magic Cups) butpt declines today. Pt asked this blog writer to call to see if she had any nutrition-related questions; spoke w/ via phone today - verbally reviewed diet recommendations, has been followingthese recommendations but notes pt's diet is very limited by what he will eat, hopeful that stent placement planned for tomorrow will allow pt to tolerate more PO. Left Cirrhosis diet handout at bedside. Based on today's assessment, pt meets criteria for Non-severe (moderate) Malnutrition in the context of Chronic Illness (<75% of estimated energy requirement for >1 month, moderate muscle wasting, moderate subcutaneous fat loss). Current Orders Diet: Sodium Restricted (2300 mg), High Protein Supplements: None Intake: 0-50% Food Allergies: NKFA NFPE: evidence of muscle and/or fat loss - see malnutrition criteria above Wt Readings from Last 30 Encounters: 04/29/24 93 kg (205 lb) 04/24/24 94.7 kg (208 lb 12.4 oz) 04/18/24 93 kg (205 lb) 04/11/24 100 kg (220 lb 7.4 oz) 03/21/24 101 kg (222 lb 10.6 oz) 03/18/24 101 kg (222 lb 10.6 oz) Results from last 24 hours Lab Units 05/01/24 0351 SODIUM mmol/L 134* POTASSIUM mmol/L 3.8 CHLORIDE mmol/L 104 CARBON DIOXIDE mmol/L 18* GLUCOSE mg/dL 154* BUN mg/dL 20 CREATININE mg/dL 0.67 MAGNESIUM mg/dL 1.9 (05/01) alk phos 159H, AST 63H, conjugated bili 1.5H, tbili 2.3H, indirect bili 0.80H (04/17) vit D 10L Pertinent Medications: cefTRIAXone, 2 g, intravenous, q24h THOMAS furosemide, 40 mg, oral, Daily lactulose, 20 g, oral, 3x daily midodrine, 15 mg, oral, q8h THOMAS rifAXIMin, 550 mg, oral, q12h THOMAS Senna pRN Food and Drug Interactions: None GI: LBM 2/5 Skin: no PIs Edema: 1+ bilat leg/ankle/foot MST Score= 5 Cultural/hindu/ethnic preferences addressed as able. Nutrition Diagnosis: Chronic Disease or Condition Related Malnutrition related to Change in Taste and Appetite or Preference, Liver Dysfunction as evidenced by Clinical Notes, Poor Oral Intake, Recent Weight Loss, Patient Report, Other (comment) (NFPE findings). Status: new Goal 1: Adequate oral intake of at least 75% meals upon follow-up. Status: New BMI (Calculated): 27.8 BMI Assessment: BMI 25-29.9: overweight Weight Used For Calculations: 94.7 kg (208 lb 12.4 oz) (04/24 - stated) Estimated Needs: Energy Calorie Requirements: 8842-6459 kcal (22-25 kcal/kg) Protein (gms/day): 114-142 g (1.2-1.5 g/kg) Fluid Requirements: per team Monitor/Evaluation: Food Intake: meet nutrition needs via PO intake Electrolyte/Renal Profile: WNL Glucose/Endocrine Profile: WNL Gastrointestinal Profile: Bowel regularity. No N, V, diarrhea, constipation Weight: Stable Nutrition-Focused Physical Findings: monitor for changes in skin integrity See flowsheets for additional information. Bridget Dumont MS, RD, LDN Nate Correa : 1960 CSN: [id number] Cosigned by Delmis Joseph MD at 05/01/2024 1:59 PM EST Associated attestation - Delmis Joseph MD - 05/01/2024 1:59 PM EST Delmis Joseph MD * Assessment & Plan Note - Damaris Enriquez MD - 05/01/2024 7:47 AM EST Associated Problem(s): Hyperlipidemia Pt states not taking simvastatin 5mg daily * Assessment & Plan Note - Damaris Enriquez MD - 05/01/2024 7:47 AM EST Associated Problem(s): Moderate protein-calorie malnutrition (CMS/HCC) High protein diet, protein shakes. Pt says he does not like Ensure. * Assessment & Plan Note - Damaris Enriquez MD - 05/01/2024 7:47 AM EST Associated Problem(s): Sepsis (HCC) (Resolved 05/03/2024) Sepsis with WBC 21, tachycardia, and tachypnea. Source confirmed SBP. Will send for other infectious workup (CXR, UA with culture reflex, BCX pending). Holding off on fluid resuscitation given adequate BP and volume overload at baseline necessitating daily diuretics as well as hyponatremia. Startedon abx as above. Reduced lactic acid clearance likely iso hepatic dysfunction (3.3>>>1.6) that improved with albumin administration. 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 Previous decompensations of ascites, SBP on ppx, HE. Follows withDr. Low outpatient. Somewhat of a recent diagnosis Jan 2024. Initially at that time his MELD was 35 but downtrended to 14 on discharge. On day of admission, was instructed to hold home diuretics iso hyponatremia. MELD 3.0: 16 at 05/01/2024 3:51 AM MELD-Na: 17 at 05/01/2024 3:51 AM Calculated from: Serum Creatinine: 0.67 mg/dL (Using min of 1 mg/dL) at 05/01/2024 3:51 AM Serum Sodium: 134 mmol/L at 05/01/2024 3:51 AM Total Bilirubin: 2.3 mg/dL at 05/01/2024 3:51 AM Serum Albumin: 3.4 g/dL at 05/01/2024 3:51 AM INR(ratio): 1.6 at 05/01/2024 3:51 AM Age at listing (hypothetical): 63 years Sex: Male at 05/01/2024 3:51 AM Decompensation history Varices: unknown, needs screening EGD Ascites: on diuretics as above. Para outpatient with IR on day of admission draining 1.7L and totalhad 3 radha (04/14 draining about 5L, 04/18 about 5L, and day of admission) HE: history of HE, now on lactulose and rifaximin SBP: yes most recently earlier this month Workup: CT 3 Phase: no focal liver lesions, splenic enlargement, gastric fundal and paraesophageal varices.No gross ascites. Moderate left-sided pleural effusion. Plan Diuresis: continue lasix 40mg daily, hold spironolactone 50mg daily Encephalopathy: continue home lactulose, continue rifaximin (appears to have been added day of arrival in clinic) Continue home midodrine Abx as above for SBP Low salt, high protein diet S/p Albumin 1.5g/kg D1 04/25, albumin 1g/kg D3 for fluid overload IR consult for outpatient TIPS for refractory ascites * Assessment & Plan Note - Damaris Enriquez MD - 05/01/2024 7:47 AM EST Associated Problem(s): Hyponatremia (Resolved 05/03/2024) Presentated with Na 127, improved with albumin administration. - Home diuretics as above - Outpatient fluid restriction of 1.2L liberalized iso sepsis * Plan of Care - Heather Hernandez RN - 05/01/2024 6:55 AM EST AO x 4, irritable at times. Able to make needs known. Pt refused Tele monitoring, provider aware. No acute events noted / reported overnight. Safety maintained. Problem: Adult Inpatient Plan of Care Goal: Plan of Care Review Outcome: Ongoing (interventions implemented as appropriate) Goal: Patient-Specific Goal (Individualized) Outcome: Ongoing (interventions implemented as appropriate) Goal: Absence of Hospital-Acquired Illness or Injury Outcome: Ongoing (interventions implemented as appropriate) Goal: Optimal Comfort and Wellbeing Outcome: Ongoing (interventions implemented as appropriate) Goal: Readiness for Transition of Care Outcome: Ongoing (interventions implemented as appropriate) * Plan of Care - Charla Peres RN - 04/30/2024 5:38 PM EST Problem: Adult Inpatient Plan of Care Goal: Plan of Care Review Outcome: Ongoing (interventions implemented as appropriate) Alert/orientex4. Denies pain/shortness of breath. Pox stable on ra. Standby assist oob with walker.Drain to RUQ, flushed without difficulty. PHR complete. Safety maintained. * Assessment & Plan Note - Damaris Enriquez MD - 04/30/2024 2:02 PM EST Associated Problem(s): SBP (spontaneous bacterial peritonitis) (HCC) (Resolved 05/03/2024) More likely to be secondary bacterial peritonitis as he recently had a hospitalization 04/11-04/19 for clogged percutaneous cholecystectomy tube causing septic shock from secondary bacterial peritonitis. Growing Klebsiella at the time resistant to ampicillin only. He has a percutaneous cholecystectomy tube placed Jan 2024 due to cholecystitis and acute on chronic liver failure at the time precluding cholecystectomy. S/p CTX in ED x1 followed by vancomycin and zosyn, vanco discontinued on 04/27. Paracentesis completed 04/29 with 1.6L fluid removed. ERCP completed 04/30 with difficult cannulation. CBD stent placed with plan for transcystic stenting and stent exchange on repeat ERCP Workup: Bcx: NGTD CXR: dense consolidation collapse and effusion at left lung base UA: no bacteria MRSA/Staph aureus negative TNC/WBC: 363 Peritoneal fluid Cx: pending - Transplant ID following - s/p vanc iso negative blood cx and neg MRSA (04/25-04/27) - s/p Zosyn (D1: 04/24-04/27) - Continue ceftriaxone (D1: 04/28-), 7-10 day course total and through procedures - Per ID, transition to ciprofloxacin 500 mg daily for SBP prophylaxis after completing ceftriaxone - Flush drain 3 times a day - Continue acetaminophen 650 q4h PRN - Repeat ERCP 05/02 for stent exchange and transcystic stent placement - Monitor for pancreatitis, bleeding, perforation, and cholangitis post ERCP * Assessment & Plan Note - Damaris Enriquez MD - 04/30/2024 1:52 PM EST Associated Problem(s): Decompensated cirrhosis (HCC) Home meds: ciprofloxacin 500mg daily, lactulose 10 g 3 times a day, rifaximin 550 mg every 12 hours, midodrine 15 mg every 8 hours 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 Previous decompensations of ascites, SBP on ppx, HE. Follows withDr. Low outpatient. Somewhat of a recent diagnosis Jan 2024. Initially at that time his MELD was 35 but downtrended to 14 on discharge. On day of admission, was instructed to hold home diuretics iso hyponatremia. MELD 3.0: 20 at 04/30/2024 4:01 AM MELD-Na: 20 at 04/30/2024 4:01 AM Calculated from: Serum Creatinine: 0.74 mg/dL (Using min of 1 mg/dL) at 04/30/2024 4:01 AM Serum Sodium: 133 mmol/L at 04/30/2024 4:01 AM Total Bilirubin: 3.7 mg/dL at 04/30/2024 4:01 AM Serum Albumin: 3.1 g/dL at 04/30/2024 4:01 AM INR(ratio): 1.7 at 04/30/2024 4:01 AM Age at listing (hypothetical): 63 years Sex: Male at 04/30/2024 4:01 AM Decompensation history Varices: unknown, needs screening EGD Ascites: on diuretics as above. Para outpatient with IR on day of admission draining 1.7L and totalhad 3 radha (04/14 draining about 5L, 04/18 about 5L, and day of admission) HE: history of HE, now on lactulose and rifaximin SBP: yes most recently earlier this month Workup: CT 3 Phase: no focal liver lesions, splenic enlargement, gastric fundal and paraesophageal varices.No gross ascites. Moderate left-sided pleural effusion. Plan Diuresis: continue lasix 40mg daily, hold spironolactone 50mg daily Encephalopathy: continue home lactulose, continue rifaximin (appears to have been added day of arrival in clinic) Continue home midodrine Abx as above for SBP Low salt, high protein diet S/p Albumin 1.5g/kg D1 04/25, albumin 1g/kg D3 for fluid overload IR consult for outpatient TIPS for refractory ascites * Assessment & Plan Note - Damaris Enriquez MD - 04/30/2024 1:52 PM EST Associated Problem(s): Hyponatremia (Resolved 05/03/2024) Presentated with Na 127, improved with albumin administration. - Home diuretics as above - Outpatient fluid restriction of 1.2L liberalized iso sepsis * Plan of Care - Heather Hernandez RN - 04/30/2024 7:48 AM EST Assumed Pt care @ 2023, Pt came up from PACU s/p ERCP. AO x 4, irritable, c/o pain in abd. Given Tylenol PRN with moderate effect. Pt refused Tele monitoring, provider aware. No acute events noted / reported overnight. Safety maintained. Problem: Adult Inpatient Plan of Care Goal: Plan of Care Review Outcome: Ongoing (interventions implemented as appropriate) Goal: Patient-Specific Goal (Individualized) Outcome: Ongoing (interventions implemented as appropriate) Goal: Absence of Hospital-Acquired Illness or Injury Outcome: Ongoing (interventions implemented as appropriate) Goal: Optimal Comfort and Wellbeing Outcome: Ongoing (interventions implemented as appropriate) Goal: Readiness for Transition of Care Outcome: Ongoing (interventions implemented as appropriate) * Assessment & Plan Note - Damaris Enriquez MD - 04/30/2024 7:36 AM EST Associated Problem(s): Hyperlipidemia Pt states not taking simvastatin 5mg daily * Assessment & Plan Note - Damaris Enriquez MD - 04/30/2024 7:36 AM EST Associated Problem(s): Moderate protein-calorie malnutrition (CMS/HCC) High protein diet, protein shakes. Pt says he does not like Ensure. * Assessment & Plan Note - Damaris Enriquez MD - 04/30/2024 7:36 AM EST Associated Problem(s): Sepsis (HCC) (Resolved 05/03/2024) Sepsis with WBC 21, tachycardia, and tachypnea. Source confirmed SBP. Will send for other infectious workup (CXR, UA with culture reflex, BCX pending). Holding off on fluid resuscitation given adequate BP and volume overload at baseline necessitating daily diuretics as well as hyponatremia. Startedon abx as above. Reduced lactic acid clearance likely iso hepatic dysfunction (3.3>>>1.6) that improved with albumin administration. -See #SBP and #Decompensated cirrhosis for plan * Assessment & Plan Note - Damaris Enriquez MD - 04/29/2024 5:03 PM EST Associated Problem(s): SBP (spontaneous bacterial peritonitis) (HCC) (Resolved 05/03/2024) More likely to be secondary bacterial peritonitis as he recently had a hospitalization 04/11-04/19 for clogged percutaneous cholecystectomy tube causing septic shock from secondary bacterial peritonitis. Growing Klebsiella at the time resistant to ampicillin only. He has a percutaneous cholecystectomy tube placed Jan 2024 due to cholecystitis and acute on chronic liver failure at the time precluding cholecystectomy. S/p CTX in ED x1 followed by vancomycin and zosyn, vanco discontinued on 04/27. Paracentesis completed 04/29 with 1.6L fluid removed. Planned for ERCP 04/29; possible dual transcystic duct stents to facilitate drain removal. Workup: Bcx: NGTD CXR: read pending UA: no bacteria MRSA/Staph aureus negative TNC/WBC: 363 Peritoneal fluid Cx: pending - Transplant ID following -s/p vanc iso negative blood cx and neg MRSA (04/25-04/27) -s/p Zosyn (D1: 04/24-04/27) -Start ceftriaxone (D1: 04/28-) - Flush drain 3 times a day - Continue acetaminophen 650 q4h PRN - ERCP for potential stent placement 04/29 * Assessment & Plan Note - Damaris Enriquez MD - 04/29/2024 5:03 PM EST Associated Problem(s): Decompensated cirrhosis (HCC) Home meds: ciprofloxacin 500mg daily, lactulose 10 g 3 times a day, rifaximin 550 mg every 12 hours, midodrine 15 mg every 8 hours 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 Previous decompensations of ascites, SBP on ppx, HE. Follows withDr. Low outpatient. Somewhat of a recent diagnosis Jan 2024. Initially at that time his MELD was 35 but downtrended to 14 on discharge. On day of admission, was instructed to hold home diuretics iso hyponatremia. MELD 3.0: 22 at 04/29/2024 4:30 AM MELD-Na: 24 at 04/29/2024 4:30 AM Calculated from: Serum Creatinine: 0.88 mg/dL (Using min of 1 mg/dL) at 04/29/2024 4:30 AM Serum Sodium: 130 mmol/L at 04/29/2024 4:30 AM Total Bilirubin: 5.9 mg/dL at 04/29/2024 4:30 AM Serum Albumin: 3.3 g/dL at 04/29/2024 4:30 AM INR(ratio): 1.7 at 04/29/2024 4:30 AM Age at listing (hypothetical): 63 years Sex: Male at 04/29/2024 4:30 AM Decompensation history Varices: unknown, needs screening EGD Ascites: on diuretics as above. Para outpatient with IR on day of admission draining 1.7L and totalhad 3 radha (04/14 draining about 5L, 04/18 about 5L, and day of admission) HE: history of HE, now on lactulose and rifaximin SBP: yes most recently earlier this month Workup: CT 3 Phase: no focal liver lesions, splenic enlargement, gastric fundal and paraesophageal varices.No gross ascites. Moderate left-sided pleural effusion. Plan Diuresis: start lasix 40mg daily, stop spironolactone 50mg daily Encephalopathy: continue home lactulose, continue rifaximin (appears to have been added day of arrival in clinic) Continue home midodrine Abx as above for SBP Low salt, high protein diet Give Albumin 1.5g/kg D1 04/25, albumin 1g/kg D3 for fluid overload Will discuss need/candidacy for TIPS pending clinical course * Assessment & Plan Note - Damaris Enriquez MD - 04/29/2024 5:03 PM EST Associated Problem(s): Hyponatremia (Resolved 05/03/2024) Presentated with Na 127, improved with albumin administration. - Hold home diuretics as above - Outpatient fluid restriction of 1.2L but liberalized iso sepsis * Assessment & Plan Note - Damaris Enriquez MD - 04/29/2024 7:28 AM EST Associated Problem(s): Sepsis (HCC) (Resolved 05/03/2024) Sepsis with WBC 21, tachycardia, and tachypnea. Source confirmed SBP. Will send for other infectious workup (CXR, UA with culture reflex, BCX pending). Holding off on fluid resuscitation given adequate BP and volume overload at baseline necessitating daily diuretics as well as hyponatremia. Startedon abx as above. Reduced lactic acid clearance likely iso hepatic dysfunction (3.3>>>1.6) that improved with albumin administration. -See #SBP and #Decompensated cirrhosis for plan * Assessment & Plan Note - Damairs Enriquez MD - 04/29/2024 7:28 AM EST Associated Problem(s): Hyperlipidemia Pt states not taking simvastatin 5mg daily * Assessment & Plan Note - Damaris Enriquez MD - 04/29/2024 7:28 AM EST Associated Problem(s): Moderate protein-calorie malnutrition (CMS/HCC) High protein diet, protein shakes. Pt says he does not like Ensure. * Assessment & Plan Note - Damaris Enriquez MD - 04/28/2024 3:56 PM EST Associated Problem(s): SBP (spontaneous bacterial peritonitis) (HCC) (Resolved 05/03/2024) More likely to be secondary bacterial peritonitis as he recently had a hospitalization 04/11-04/19 for clogged percutaneous cholecystectomy tube causing septic shock from secondary bacterial peritonitis. Growing Klebsiella at the time resistant to ampicillin only. He has a percutaneous cholecystectomy tube placed Jan 2024 due to cholecystitis and acute on chronic liver failure at the time precluding cholecystectomy. Planned for ERCP outpatient; possible dual transcystic duct stents to facilitate drain removal. S/p CTX in ED x1 followed by vancomycin and zosyn, vanco discontinued on 04/27. Workup: Bcx: NGTD CXR: read pending UA: no bacteria MRSA/Staph aureus negative - Transplant ID following -vanc discontinued iso negative blood cx and neg MRSA (04/25-04/27) -s/p Zosyn (D1: 04/24-04/27) -Start ceftriaxone (D1: 04/28-) - Flush drain 3 times a day; and patient are concerned that drain moved outward slightly as the suture that held it in place is no longer there, however drain is functioning well and pt was seenby Dr. Chavez (gen surg) outpatient in clinic day of admission and flushed the drain. Consult surgery if needed. 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 Previous decompensations of ascites, SBP on ppx, HE. Follows withDr. Low outpatient. Somewhat of a recent diagnosis Jan 2024. Initially at that time his MELD was 35 but downtrended to 14 on discharge. On day of admission, was instructed to hold home diuretics iso hyponatremia. MELD 3.0: 19 at 04/28/2024 5:40 AM MELD-Na: 21 at 04/28/2024 5:40 AM Calculated from: Serum Creatinine: 0.79 mg/dL (Using min of 1 mg/dL) at 04/27/2024 5:00 AM Serum Sodium: 133 mmol/L at 04/27/2024 5:00 AM Total Bilirubin: 4.3 mg/dL at 04/27/2024 5:00 AM Serum Albumin: 3.8 g/dL (Using max of 3.5 g/dL) at 04/27/2024 5:00 AM INR(ratio): 1.7 at 04/28/2024 5:40 AM Age at listing (hypothetical): 63 years Sex: Male at 04/28/2024 5:40 AM Decompensation history Varices: unknown, needs screening EGD Ascites: on diuretics as above. Para outpatient with IR on day of admission draining 1.7L and totalhad 3 radha (04/14 draining about 5L, 04/18 about 5L, and day of admission) HE: history of HE, now on lactulose and rifaximin SBP: yes most recently earlier this month Workup: CT 3 Phase: no focal liver lesions, splenic enlargement, gastric fundal and paraesophageal varices.No gross ascites. Moderate left-sided pleural effusion. Plan Diuresis: start lasix 20mg daily, start spironolactone 50mg daily Encephalopathy: continue home lactulose, continue rifaximin (appears to have been added day of arrival in clinic) Continue home midodrine Abx as above for SBP Low salt, high protein diet Give Albumin 1.5g/kg D1 04/25, albumin 1g/kg D3 for fluid overload Will discuss need/candidacy for TIPS pending clinical course * Plan of Care - Marybel Works - 04/28/2024 3:41 PM EST Case Management Continued Stay Review: CM spoke w/pt's on the phone. The pt had been refusing PT eval. Per Sana, he is very uncomfortable and is waiting for paracentesis to be done. The pt will be having an ERCP tomorrow. CM will check back w/pt/family on Sunday. No SNF or Acute referrals have been placed. Pertinent Clinical impacting hospitalization, level of care update, if indicated : Treatment for Sepsis and SBP ongoing. Pt awaiting paracentesis and ERCP Discharge Planning: Discharge Barrier: Pt is not medically ready for discharge Discharge Plan: Final dispo dependent on PT/OT recommendations Choice list (with star ratings) provided / discussed, if indicated (Y or NA): NA * Assessment & Plan Note - Damaris Enriquez MD - 04/28/2024 8:55 AM EST Associated Problem(s): Sepsis (HCC) (Resolved 05/03/2024) Sepsis with WBC 21, tachycardia, and tachypnea. Source confirmed SBP. Will send for other infectious workup (CXR, UA with culture reflex, BCX pending). Holding off on fluid resuscitation given adequate BP and volume overload at baseline necessitating daily diuretics as well as hyponatremia. Startedon abx as above. Reduced lactic acid clearance likely iso hepatic dysfunction (3.3>>>1.6) that improved with albumin administration. -See #SBP and #Decompensated cirrhosis for plan * Assessment & Plan Note - Damaris Enriquez MD - 04/28/2024 8:55 AM EST Associated Problem(s): Hyponatremia (Resolved 05/03/2024) Presentated with Na 127, improved with albumin administration. - Hold home diuretics as above - Outpatient has fluid restriction of 1.2L but will liberalize for now given sepsis * Assessment & Plan Note - Damaris Enriquez MD - 04/28/2024 8:55 AM EST Associated Problem(s): Hyperlipidemia Pt states not taking simvastatin 5mg daily * Assessment & Plan Note - Damaris Enriquez MD - 04/28/2024 8:55 AM EST Associated Problem(s): Moderate protein-calorie malnutrition (CMS/HCC) High protein diet, protein shakes. Pt says he does not like Ensure. * Assessment & Plan Note - Alexei Lepe MD - 04/27/2024 4:12 PM ESTAssociated Problem(s): SBP (spontaneous bacterial peritonitis) (HCC) (Resolved 05/03/2024) More likely to be secondary bacterial peritonitis as he recently had a hospitalization 04/11-04/19 for clogged percutaneous cholecystectomy tube causing septic shock from secondary bacterial peritonitis. Growing Klebsiella at the time resistant to ampicillin only. He has a percutaneous cholecystectomy tube placed Jan 2024 due to cholecystitis and acute on chronic liver failure at the time precluding cholecystectomy. Planned for ERCP outpatient; possible dual transcystic duct stents to facilitate drain removal. S/p CTX in ED x1 followed by vancomycin and zosyn, vanco discontinued on 04/27. Workup: Bcx: NGTD CXR: read pending UA: no bacteria MRSA/Staph aureus negative - Transplant ID following -vanc discontinued iso negative blood cx and neg MRSA (04/25-04/27) -Continue Zosyn (D1: 04/24) - Flush drain 3 times a day; and patient are concerned that drain moved outward slightly as the suture that held it in place is no longer there, however drain is functioning well and pt was seenby Dr. Chavez (gen surg) outpatient in clinic day of admission and flushed the drain. Consult surgery if needed. - Continue acetaminophen 650 q4h PRN - Plan for diagnostic and therapeutic paracentesis 04/28 - Plan for stent exchange in cystic duct 05/02 * Assessment & Plan Note - Alexei Lepe MD - 04/27/2024 4:12 PM ESTAssociated Problem(s): Sepsis (HCC) (Resolved 05/03/2024) Sepsis with WBC 21, tachycardia, and tachypnea. Source confirmed SBP. Will send for other infectious workup (CXR, UA with culture reflex, BCX pending). Holding off on fluid resuscitation given adequate BP and volume overload at baseline necessitating daily diuretics as well as hyponatremia. Startedon abx as above. Reduced lactic acid clearance likely iso hepatic dysfunction (3.3>>>1.6) that improved with albumin administration. 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 Previous decompensations of ascites, SBP on ppx, HE. Follows withDr. Low outpatient. Somewhat of a recent diagnosis Jan 2024. Initially at that time his MELD was 35 but downtrended to 14 on discharge. MELD 3.0: 19 at 04/27/2024 5:00 AM MELD-Na: 21 at 04/27/2024 5:00 AM Calculated from: Serum Creatinine: 0.79 mg/dL (Using min of 1 mg/dL) at 04/27/2024 5:00 AM Serum Sodium: 133 mmol/L at 04/27/2024 5:00 AM Total Bilirubin: 4.3 mg/dL at 04/27/2024 5:00 AM Serum Albumin: 3.8 g/dL (Using max of 3.5 g/dL) at 04/27/2024 5:00 AM INR(ratio): 1.7 at 04/27/2024 5:00 AM Age at listing (hypothetical): 63 years Sex: Male at 04/27/2024 5:00 AM Decompensation history Varices: unknown, needs screening EGD Ascites: on diuretics as above. Para outpatient with IR on day of admission draining 1.7L and totalhad 3 radha (04/14 draining about 5L, 04/18 about 5L, and day of admission) HE: history of HE, now on lactulose and rifaximin SBP: yes most recently earlier this month Workup: CT 3 Phase: no focal liver lesions, splenic enlargement, gastric fundal and paraesophageal varices.No gross ascites. Moderate left-sided pleural effusion. Plan Hold home diuretics ISO sepsis; was also instructed to stop it in clinic on day of admission due tohyponatremia Encephalopathy: continue home lactulose, continue rifaximin (appears to have been added day of arrival in clinic) Continue home midodrine 15mg q8h Abx as above for SBP Low salt, high protein diet Give Albumin 1.5g/kg D1 04/25, albumin 1g/kg D3 for fluid overload Will discuss need/candidacy for TIPS pending clinical course * Assessment & Plan Note - Alexei Lepe MD - 04/27/2024 4:12 PM ESTAssociated Problem(s): Hyponatremia (Resolved 05/03/2024) Presentated with Na 127, improved with albumin administration. - Hold home diuretics as above - Outpatient has fluid restriction of 1.2L but will liberalize for now given sepsis * Assessment & Plan Note - Alexei Lepe MD - 04/27/2024 4:12 PM ESTAssociated Problem(s): Hyperlipidemia Pt states not taking simvastatin 5mg daily * Assessment & Plan Note - Alexei Lepe MD - 04/27/2024 4:12 PM ESTAssociated Problem(s): Moderate protein-calorie malnutrition (CMS/HCC) High protein diet, protein shakes. Pt says he does not like Ensure. * Assessment & Plan Note - Damaris Enriquez MD - 04/26/2024 7:31 PM EST Associated Problem(s): SBP (spontaneous bacterial peritonitis) (HCC) (Resolved 05/03/2024) More likely to be secondary bacterial peritonitis as he recently had a hospitalization 04/11-04/19 for clogged percutaneous cholecystectomy tube causing septic shock from secondary bacterial peritonitis. Growing Klebsiella at the time resistant to ampicillin only. He has a percutaneous cholecystectomy tube placed Jan 2024 due to cholecystitis and acute on chronic liver failure at the time precluding cholecystectomy. Planned for ERCP outpatient; possible dual transcystic duct stents to facilitate drain removal. S/p CTX in ED x1. Continued on Vancomycin and Zosyn. Workup: Bcx: NGTD CXR: read pending UA: no bacteria MRSA/Staph aureus negative - Transplant ID following - Continue Vanc (trough goal 15-20) (D1: 04/24) until cultures negative 48 hrs -Continue Zosyn (D1: 04/24) - Flush drain 3 times a day; and patient are concerned that drain moved outward slightly as the suture that held it in place is no longer there, however drain is functioning well and pt was seenby Dr. Chavez (gen surg) outpatient in clinic day of admission and flushed the drain. Consult surgery if needed. 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 Previous decompensations of ascites, SBP on ppx, HE. Follows withDr. Devante outpatient. Somewhat of a recent diagnosis Jan 2024. Initially at that time his MELD was 35 but downtrended to 14 on discharge. MELD 3.0: 17 at 04/26/2024 5:01 AM MELD-Na: 18 at 04/26/2024 5:01 AM Calculated from: Serum Creatinine: 0.73 mg/dL (Using min of 1 mg/dL) at 04/26/2024 5:01 AM Serum Sodium: 132 mmol/L at 04/26/2024 5:01 AM Total Bilirubin: 2.5 mg/dL at 04/26/2024 5:01 AM Serum Albumin: 3.5 g/dL at 04/26/2024 5:01 AM INR(ratio): 1.5 at 04/26/2024 5:01 AM Age at listing (hypothetical): 63 years Sex: Male at 04/26/2024 5:01 AM Decompensation history Varices: unknown, needs screening EGD Ascites: on diuretics as above. Para outpatient with IR on day of admission draining 1.7L and totalhad 3 radha (04/14 draining about 5L, 04/18 about 5L, and day of admission) HE: history of HE, now on lactulose and rifaximin SBP: yes most recently earlier this month Workup: CT 3 Phase: no focal liver lesions, splenic enlargement, gastric fundal and paraesophageal varices.No gross ascites. Moderate left-sided pleural effusion. Plan Hold home diuretics ISO sepsis; was also instructed to stop it in clinic on day of admission due tohyponatremia Encephalopathy: continue home lactulose, continue rifaximin (appears to have been added day of arrival in clinic) Continue home midodrine 15mg q8h Abx as above for SBP Low salt, high protein diet Give Albumin 1.5g/kg D1 04/25, albumin 1g/kg D3 for fluid overload * Assessment & Plan Note - Damaris Enriquez MD - 04/26/2024 7:31 PM EST Associated Problem(s): Hyponatremia (Resolved 05/03/2024) Presentated with Na 127, improved with albumin administration. - Hold home diuretics as above - Outpatient has fluid restriction of 1.2L but will liberalize for now given sepsis * Assessment & Plan Note - Damaris Enriquez MD - 04/26/2024 7:31 PM EST Associated Problem(s): Sepsis (HCC) (Resolved 05/03/2024) Sepsis with WBC 21, tachycardia, and tachypnea. Source confirmed SBP. Will send for other infectious workup (CXR, UA with culture reflex, BCX pending). Holding off on fluid resuscitation given adequate BP and volume overload at baseline necessitating daily diuretics as well as hyponatremia. Startedon abx as above. Reduced lactic acid clearance likely iso hepatic dysfunction (3.3>>>1.6) that improved with albumin administration. -See #SBP and #Decompensated cirrhosis for plan * Assessment & Plan Note - Damaris Enriquez MD - 04/26/2024 7:48 AM EST Associated Problem(s): Hyperlipidemia Pt states not taking simvastatin 5mg daily * Assessment & Plan Note - Damaris Enriquez MD - 04/26/2024 7:48 AM EST Associated Problem(s): Moderate protein-calorie malnutrition (CMS/HCC) High protein diet, protein shakes. Pt says he does not like Ensure. * Assessment & Plan Note - Damaris Enriquez MD - 04/25/2024 7:01 PM EST Associated Problem(s): SBP (spontaneous bacterial peritonitis) (HCC) (Resolved 05/03/2024) More likely to be secondary bacterial peritonitis as he recently had a hospitalization 04/11-04/19 for clogged percutaneous cholecystectomy tube causing septic shock from secondary bacterial peritonitis. Growing Klebsiella at the time resistant to ampicillin only. He has a percutaneous cholecystectomy tube placed Jan 2024 due to cholecystitis and acute on chronic liver failure at the time precluding cholecystectomy. Planning for ERCP outpatient; possible dual transcystic duct stents to facilitatedrain removal. S/p CTX in ED x1. Workup: Bcx: NGTD CXR: read pending UA: no bacteria MRSA/Staph aureus negative - Transplant ID following - Continue Vanc/Zosyn (D1: 04/24), MRSA swab pending - Flush drain 3 times a day; and patient are concerned that drain moved outward slightly as the suture that held it in place is no longer there, however drain is functioning well and pt was seenby Dr. Chavez (gen surg) outpatient in clinic day of admission and flushed the drain. Consult surgery if needed. 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 Previous decompensations of ascites, SBP on ppx, HE. Follows withDr. Low outpatient. Somewhat of a recent diagnosis Jan 2024. Initially at that time his MELD was 35 but downtrended to 14 on discharge. MELD 3.0: 20 at 04/25/2024 6:09 AM MELD-Na: 22 at 04/25/2024 6:09 AM Calculated from: Serum Creatinine: 1.05 mg/dL at 04/25/2024 6:09 AM Serum Sodium: 130 mmol/L at 04/25/2024 6:09 AM Total Bilirubin: 3 mg/dL at 04/25/2024 6:09 AM Serum Albumin: 3.2 g/dL at 04/25/2024 6:09 AM INR(ratio): 1.6 at 04/25/2024 6:09 AM Age at listing (hypothetical): 63 years Sex: Male at 04/25/2024 6:09 AM Decompensation history Varices: unknown, needs screening EGD Ascites: on diuretics as above. Para outpatient with IR on day of admission draining 1.7L and totalhad 3 radha (04/14 draining about 5L, 04/18 about 5L, and day of admission) HE: history of HE, now on lactulose and rifaximin SBP: yes most recently earlier this month Workup: CT 3 Phase: no focal liver lesions, splenic enlargement, gastric fundal and paraesophageal varices.No gross ascites. Moderate left-sided pleural effusion. Plan Hold home diuretics ISO sepsis; was also instructed to stop it in clinic on day of admission due tohyponatremia Encephalopathy: continue home lactulose, start rifaximin (pt says not on it yet, seemed to have been added day of arrival in clinic) Continue home midodrine 15mg q8h Abx as above for SBP Low salt, high protein diet Give Albumin 1.5g/kg D1 04/25, albumin 1g/kg D3 for fluid overload * Assessment & Plan Note - Damaris Enriquez MD - 04/25/2024 7:01 PM EST Associated Problem(s): Hyperlipidemia Pt states not taking simvastatin 5mg daily * Assessment & Plan Note - Damaris Enriquez MD - 04/25/2024 7:01 PM EST Associated Problem(s): Sepsis (HCC) (Resolved 05/03/2024) Sepsis with WBC 21, tachycardia, and tachypnea. Source confirmed SBP. Will send for other infectious workup (CXR, UA with culture reflex, BCX pending). Holding off on fluid resuscitation given adequate BP and volume overload at baseline necessitating daily diuretics as well as hyponatremia. Startedon abx as above. Reduced lactic acid clearance likely iso hepatic dysfunction. - Trend lactic acid until clear (3.3 > 2.4 > 2.6) * INP High Risk Summary - Marybel Owens - 04/25/2024 10:43 AM EST CM/SW High Risk Patient Screen Summary Default Flowsheet Data (most recent) Readmission Assessment - 04/25/24 1042 Readmission Information Was Readmission Planned ? No Location Prior to Readmission Home Home Services from Prior Hospitalization Yes Home Services prior to admission [facility] Reason for Returning Disease Progression Did you Visit Your Physician(s) After Discharge Yes Multi-Visit Patient Is there a non-medical reason for the readmission ? No High Risk Screen Follow Up Action Items Problems with Medication: Is the patient on >10 medications ? Yes Does the Principal Dx include Cancer, COPD,End Stage Disease,Heart Failure ? No Psychological - Psych/Social Work Need Identified ? No Prior Hospitalizations ? Yes Patient's Physical Limitations: frail or deconditioned ? Yes Poor Health Literacy ? Yes Patient Support Limited ? No Palliative Care? No * Plan of Care - Marybel Owens - 04/25/2024 10:11 AM EST Case Management Admission Note: High Risk Score = 2 Pertinent Clinical impacting hospitalization. 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 Pt recently had a hospitalization 04/11-04/19 for clogged percutaneous cholecystectomy tube causing septic shock from secondary bacterial peritonitis. Growing Klebsiella at the time resistant to ampicillin only. He has a percutaneous cholecystectomy tube placed Jan 2024 due to cholecystitis and acute on chronic liver failure at the time precluding cholecystectomy. Planning for ERCP outpatient; possible dual transcystic duct stents to facilitate drain removal. S/p CTX in ED x1. Patient Assessment: CM met w/pt at the bedside. Prior to CM introduction pt stated Don't ask me anything! CM attempted to start a conversation however pt refused to speak. The pt's HCP is activated. CM called pt's spouse/HCP, Sana, and completed the assessment. The pt lives in a two story home w/his . There are3 steps to enter the home and 13 to the second floor. The pt stays on the first floor. Per Sana, the pt has been ill since November of 2023. Prior to that time he was independent w/all ADLs and IADLs. He was working and driving. He is currently on FMLA which will the end of May. The pt was admitted to the hospital from 04/11/24-->04/19/24. Prior to that he was independent w/ADLs andWendy did all IADLs. Since 04/19/24 the pt has been A/1 for ADLs, using a rolling walker and supervision for transfers and ambulation. Sana would like pt to got to STR@SNF or Acute rehab if possible. ASHLIE explained that PT/OT will need to complete evals prior to any referrals being placed. She verbalized understanding. Sana states, if he can go to Acute rehab she would like [facility] in [place], For [facility]SNF, [facility] or [facility]. Supports, HCP, Designated Caregiver, Guardian: Sana Correa, Spouse/HCP Initial Discharge Planning: Dispo TBD Choice list (with star ratings) provided / discussed, if indicated (Y or NA):NA ADD: Sana left a message w/nursing asking CM to call back. CM called and spoke w/Sana on the phone. After speaking w/her family, she requested referrals for Acute Rehab or SNF be placed in [facility] so he would be close to [facility] if he needed hospitalization. CM reviewed area Acute rehabs. Sana agrees w/referrals to [place] or [place]. If PT recommends SNF then CM will review [facility] rehab centers. * Assessment & Plan Note - Damaris Enriquez MD - 04/25/2024 7:43 AM EST Associated Problem(s): Hyponatremia (Resolved 05/03/2024) - Hold home diuretics as above - Outpatient has fluid restriction of 1.2L but will liberalize for now given sepsis * Assessment & Plan Note - Damaris Enriquez MD - 04/25/2024 7:43 AM EST Associated Problem(s): Moderate protein-calorie malnutrition (CMS/HCC) High protein diet, protein shakes. Pt says he does not like Ensure. 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 Previous decompensations of ascites, SBP on ppx, HE. Follows withDrSoraya Low outpatient. Somewhat of a recent diagnosis Jan 2024. Initially at that time his MELD was 35 but downtrended to 14 on discharge. Today is 22. Decompensation history Varices: unknown, needs screening EGD Ascites: on diuretics as above. Para outpatient with IR on day of admission draining 1.7L and totalhad 3 radha (04/14 draining about 5L, 04/18 about 5L, and day of admission) HE: history of HE, now on lactulose and rifaximin SBP: yes most recently earlier this month Plan Obtain CT AP noncon due to rising Tbili Hold home diuretics ISO sepsis; was also instructed to stop it in clinic on day of admission due tohyponatremia Encephalopathy: continue home lactulose, start rifaximin (pt says not on it yet, seemed to have been added today in clinic) Continue home midodrine 15mg q8h Abx as above for SBP Low salt, high protein diet * Assessment & Plan Note - vEin Reno MD - 04/24/2024 10:39 PM ESTAssociated Problem(s): SBP (spontaneous bacterial peritonitis) (HCC) (Resolved 05/03/2024) More likely to be secondary bacterial peritonitis as he recently had a hospitalization 04/11-04/19 for clogged percutaneous cholecystectomy tube causing septic shock from secondary bacterial peritonitis. Growing Klebsiella at the time resistant to ampicillin only. He has a percutaneous cholecystectomy tube placed Jan 2024 due to cholecystitis and acute on chronic liver failure at the time precluding cholecystectomy. Planning for ERCP outpatient; possible dual transcystic duct stents to facilitatedrain removal. S/p CTX in ED x1. - Start Vanc/Zosyn (D1: 04/24), MRSA swab pending - Transplant ID consult in AM - Pending Bcx results - Work up for other infectious etiology with CXR and UA with reflex culture - Flush drain 3 times a day; and patient are concerned that drain moved outward slightly as the suture that held it in place is no longer there, however drain is functioning well and pt was seenby Dr. Chavez (gen surg) outpatient in clinic day of admission and flushed the drain. Please evaluate drain site in AM and consult surgery if needed. * Assessment & Plan Note - Evin Reno MD - 04/24/2024 10:39 PM ESTAssociated Problem(s): Moderate protein-calorie malnutrition (CMS/HCC) High protein diet, protein shakes. Pt says he does not like Ensure. * Assessment & Plan Note - Evin Reno MD - 04/24/2024 10:39 PM ESTAssociated Problem(s): Hyperlipidemia Pt states not taking simvastatin 5mg daily * Assessment & Plan Note - Evin Reno MD - 04/24/2024 10:39 PM ESTAssociated Problem(s): Sepsis (HCC) (Resolved 05/03/2024) Sepsis with WBC 21, tachycardia, and tachypnea. Source confirmed SBP. Will send for other infectious workup (CXR, UA with culture reflex, BCX pending). Holding off on fluid resuscitation given adequate BP and volume overload at baseline necessitating daily diuretics as well as hyponatremia. Startedon abx as above. - Trend lactic acid until clear * Assessment & Plan Note - Evin Reno MD - 04/24/2024 10:39 PM ESTAssociated Problem(s): Hyponatremia (Resolved 05/03/2024) - Hold home diuretics as above - Outpatient has fluid restriction of 1.2L but will liberalize for now given sepsis * Emergency Department Information Exchange - [place] - [place] [facility] - 04/24/2024 4:21 PM EST [employer] NOTIFICATION 04/24/2024 16:21 IRISHCECILE NATE : 1960 [facility]'s patient encounter information: MRN:[id number] Account Number:?[id number] Billing Account Number:?[id number] Criteria Met History of Sepsis Dx Traveling Patients Standard: 3 Different EDs within 90 days Security and Safety No Security Events were found. ED Care Guidelines There are currently no ED Care Guidelines for this patient. Please check your facility's medical records system. Flags History of Sepsis - Patient has received a diagnosis of Sepsis from an acute or post-acute setting.Apply appropriate clinical planning practices; to learn more visit cdc.gov/[email or web address]/clinicaltools / Attributed By: [employer] / Attributed On: 04/11/2024 Prescription Drug Data No Prescription Drug Data was found. E.D. Visit Count (12 mo.) Facility Visits [facility] 2 [facility] 1 [facility] 1 Total 4 Note: Visits indicate total known visits. Recent Emergency Department Visit Summary Date Facility [facility] State Type Diagnoses or Chief Complaint Apr 24, 2024 [facility] Emergency TrAC- SBP Apr 11, 2024 [facility] Emergency Hypotension, unspecified Hypotension Mar 05, 2024 [facility] [place] Emergency 1. Calculus of gallbladder with acute and chronic cholecystitis without obstruction 2. Other ascites 3. Encounter for screening for COVID-19 4. Tachycardia, unspecified 5. Localized enlarged lymph nodes 6. Portal hypertension 7. Splenomegaly, not elsewhere classified 99. Unspecified abdominal pain 99. Unspecified cirrhosis of liver 99. Fever, unspecified [facility] Complaint: gallstones/sent by PCP Recent Inpatient Visit Summary Date Facility [facility] State Type Diagnoses or Chief Complaint Apr 11, 2024 [facility] Inpatient Unspecified cirrhosis of liver Hepatic failure, unspecified without coma Spontaneous bacterial peritonitis Hypotension, unspecified Jan 29, 2024 [facility] Right upper quadrant pain Calculus of gallbladder without cholecystitis with obstruction Calculus of gallbladder without cholecystitis without obstruction Alcoholic cirrhosis of liver with ascites Acute cholecystitis Care Team Provider Specialty Phone Fax Service Dates PO, MD JADE Internal Medicine Current [employer] This patient has registered at the [facility] Emergency Department For more information visit: [email or web address] PLEASE NOTE: 1. Any care recommendations and other clinical information are provided as guidelines or for historical purposes only, and providers should exercise their own clinical judgment when providing care. 2. You may only use this information for purposes of treatment, payment or health care operations activities, and subject to the limitations of applicable [employer] Policies. 3. You should consult directly with the organization that provided a care guideline or other clinical history with any questions about additional information or accuracy or completeness of information provided. ? 2024 [employer] - [email or web address] / hellofood documented in this encounter Plan of Treatment Upcoming Encounters Date Type Department Care Team (Latest Contact Info) Description 10:30 AM EST Appointment [facility] Interventional Radiology [address] [place] [address] Mike Rey i, MD [address] [place] [phone] 5 10:30 AM EDT Appointment [facility] Interventional Radiology [address] [place] [address] Mike Rey i, MD [address] [place] [phone] 5 2:00 PM EDT Pre-Admission Testing [facility] Surgical [address] [phone] 5 10:00 AM EDT Appointment [facility] Interventional Radiology [address] [place] [address] Mike Rey i, MD [address] [place] [phone] 5 10:30 AM EDT Appointment [facility] Interventional Radiology [address] [place] [address] Mike Rey i, MD [address] [place] [phone] 5 9:00 AM EDT Pre-Admission Testing [address] [phone] 5 10:30 AM EDT Appointment [facility] Interventional Radiology [address] [place] [address] Mike Rey i, MD [address] [place] [phone] 5 10:30 AM EDT Appointment [facility] Interventional Radiology [address] [place] [phone] Mike Rey i, MD [address] [place] [phone] 5 8:30 AM EDT Hospital Encounter [facility] Operating Room [address] [place] [address] Rachel Murray MD [address] [place] [phone] 5 8:30 AM EDT - 5 9:30 AM EDT Surgery [facility] Operating Room [address] [place] [address] Rachel Murray MD [address] [place] [phone] ENDOSCOPIC RETROGRADE CHOLANGIOPANCREATOGRAPHY WITH REMOVAL OF FOREIGN BODY(S)/STENT(S)/PANCREATIC DUCT(S) WITH POSSIBLE MODERATE SEDATION [96653 (CPT??)] 5 10:30 AM EDT Appointment [facility] Interventional Radiology [address] [place] [phone] Mike Rey i, MD [address] [place] [phone] 5 4:30 PM EDT Follow-Up [facility] Liver Transplant Services [address] [place] [address] Mike Rey i, MD [address] [place] [phone] 5 10:30 AM EDT Appointment [facility] Interventional Radiology [address] [place] [phone] Mike Rey i, MD [address] [place] [phone] 5 10:30 AM EDT Appointment [facility] Interventional Radiology [address] [place] [id number] Mike Rey i, MD [address] [place] [address] [phone] 5 10:30 AM EDT Appointment [facility] Interventional Radiology [address] [place] [address] [phone] Mike Rey i, MD [address] [place] [address] [phone] 5 10:30 AM EDT Appointment [facility] Inter[facility]iology [address] [place] [address] [phone] Mike Rey i, MD [address] [place] [address] [phone] 5 10:30 AM EDT Appointment [facility] [address] [place] [address] [phone] Mike Rey i, MD [address] [place] [address] [phone] 5 10:30 AM EDT Appointment [facility] [address] [place] [address] [phone] Mike Rey i, MD [address] [place] [address] [phone] 5 10:30 AM EDT Appointment [facility] [address] [place] [address] [phone] Mike Rey i, MD [address] [place] [address] [phone] 5 10:30 AM EDT Appointment [facility] [address] [place] [address] [phone] Mike Rey i, MD [address] [place] [address] [phone] 5 10:30 AM EDT Appointment [facility] [address] [place] [address] [phone] Mike Rey i, MD [address] [place] [address] [phone] 5 10:30 AM EDT Appointment [facility] Inter[facility]iology [address] [place] [address] [phone] Mike Rey i, MD [address] [place] [address] [phone] 5 10:30 AM EDT Appointment [facility] Inter[facility]iology [address] [place] [address] [phone] Mike Rey i, MD [address] [place] [address] [phone] Scheduled Orders Name Type Priority Associated Diagnoses Orde r Schedule STAT Gram Stain Microbiology Timed 025 until discontinued, 1 completed Scheduled Procedures Name Priority Associated Diagnoses Date/Ti me ENDOSCOPIC RETROGRADE CHOLANGIOPANCREATOGRAPHY WITH REMOVAL OF FOREIGN BODY(S)/STENT(S)/PANCREATIC DUCT(S) WITH POSSIBLE MODERATE SEDATION Encounter for removal of biliary stent 07/04/2024 8:30 AM EDT LAPAROSCOPIC CHOLECYSTECTOMY Acute cholecystitis Scheduled Referrals Name Type Priority Associated Diagnoses Order Schedule Ambulatory referral to Home Health Outpatient Referral Routine Decompensated cirrhosis (HCC) Expected: 05/03/2024, Expires: 10/31/2024 documented as of this encounter Procedures * Due to [place] state law, this organization might not be sharing negative HIV tests. Procedure Name Priority Date/Time Associated Diagnosis Comments CBC AUTO DIFFERENTIAL Routine 05/03/2024 3:18 AM EST PROTIME-INR Routine 05/03/2024 3:18 AM EST MAGNESIUM Routine 05/03/2024 3:18 AM EST HEPATIC FUNCTION PANEL Routine 3:18 AM EST BASIC METABOLIC PANEL Routine 05/03/2024 3:18 AM EST [place] C-ARM ERCP IN OR NON-REPORTABLE Routine 05/02/2024 4:31 PM EST Cholecystitis [place] ERCP DX COLLECTION SPECIM EN BRUSHING/WASHING 05/02/2024 1:54 PM EST TYPE AND SCREEN Routine 05/02/2024 9:21 AM EST CBC AUTO DIFFERENTIAL Routine 05/02/2024 4:11 AM EST MANUAL DIFFERENTIAL Routine 05/02/2024 4 :11 AM EST PROTIME-INR Routine 05/02/2024 4:10 AM EST MAGNESIUM Routine 05/02/2024 4:10 AM EST HEPATIC FUNCTION PANEL Routine 4:10 AM EST BASIC METABOLIC PANEL Routine 05/02/2024 4:10 AM EST ENDOSCOPIC RETROGRADE CHOLANGIOPANCREATOGRAPHY 05/02/2024 CBC AUTO DIFFERENTIAL Routine 05/01/2024 3:51 AM EST PROTIME-INR Routine 05/01/2024 3:51 AM EST MAGNESIUM Routine 05/01/2024 3:51 AM EST HEPATIC FUNCTION PANEL Routine 3:51 AM EST BASIC METABOLIC PANEL Routine 05/01/2024 3:51 AM EST SMEAR REVIEW Routine 04/30/2024 2:56 PM EST CBC Timed 04/30/2024 2:56 PM EST CBC AUTO DIFFERENTIAL Routine 04/30/2024 4:01 AM EST MANUAL DIFFERENTIAL Routine 04/30/2024 4 :01 AM EST PROTIME-INR Routine 04/30/2024 4:01 AM EST MAGNESIUM Routine 04/30/2024 4:01 AM EST HEPATIC FUNCTION PANEL Routine 4:01 AM EST BASIC METABOLIC PANEL Routine 04/30/2024 4:01 AM EST FL C-ARM ERCP IN OR NON-REPORTABLE Routine 04/29/2024 5:59 PM EST Cholecystitis [place] ERCP DX COLLECTION SPECIM EN BRUSHING/WASHING 04/29/2024 4:16 PM EST Cholecystitis [place] ABDOM PARACENTESIS DX/THE R W IMAGING GUIDANCE Routine 04/29/2024 1:30 PM EST Spontaneous bacterial peritonitis (HCC) EXTRA CONTAINER, OTHER Routine 10:15 AM EST CELL COUNT W/DIFFERENTIAL, PERITONEAL STAT 04/29/2024 10:15 AM EST (DO NOT ORDER) ANAEROBIC CULTURE-QML Routine 04/29/2024 10:15 AM EST STAT GRAM STAIN Routine 04/29/2024 10:15 AM EST (DO NOT ORDER) AEROBIC CULTURE-QML Routine 04/29/2024 10:15 AM EST BODY FLUID CULTURE W/STAT GR AM STAIN Routine 04/29/2024 10:15 AM EST CBC AUTO DIFFERENTIAL Routine 04/29/2024 4:30 AM EST PROTIME-INR Routine 04/29/2024 4:30 AM EST MAGNESIUM Routine 04/29/2024 4:30 AM EST HEPATIC FUNCTION PANEL Routine 4:30 AM EST BASIC METABOLIC PANEL Routine 04/29/2024 4:30 AM EST ENDOSCOPIC RETROGRADE CHOLANGIOPANCREATOGRAPHY 04/29/2024 MAGNESIUM Routine 04/28/2024 12:16 PM EST HEPATIC FUNCTION PANEL Routine 12:16 PM EST BASIC METABOLIC PANEL Routine 04/28/2024 12:16 PM EST PROTIME-INR Routine 04/28/2024 5:40 AM EST CBC AUTO DIFFERENTIAL Routine 04/28/2024 5:30 AM EST US ABDOMEN SINGLE ORGAN STAT 04/27/19 11:23 PM EST CBC AUTO DIFFERENTIAL Routine 04/27/2024 5:00 AM EST PROTIME-INR Routine 04/27/2024 5:00 AM EST MAGNESIUM Routine 04/27/2024 5:00 AM EST HEPATIC FUNCTION PANEL Routine 5:00 AM EST BASIC METABOLIC PANEL Routine 04/27/2024 5:00 AM EST VANCOMYCIN, TROUGH Timed 04/26/2024 7: 55 AM EST SMEAR REVIEW Routine 04/26/2024 5:01 AM EST CBC AUTO DIFFERENTIAL Routine 04/26/2024 5:01 AM EST PROTIME-INR Routine 04/26/2024 5:01 AM EST MAGNESIUM Routine 04/26/2024 5:01 AM EST LACTIC ACID, PLASMA Routine 04/26/2024 5 :01 AM EST HEPATIC FUNCTION PANEL Routine 5:01 AM EST BASIC METABOLIC PANEL Routine 04/26/2024 5:[address] 3 PHASE LIVER MASS WITH PELVIS STAT 04/25/2024 1:39 PM EST LACTIC ACID, PLASMA STAT 04/25/2024 11:31 AM EST MRSA/S AUREUS PCR, NASAL STAT 025 6:13 AM EST URINALYSIS W/REFLEX TO MICROSCOPIC & CULTURE Routine 04/25/2024 6:10 AM EST HARVEY TOP, URN Routine 04/25/2024 6:10 AM EST UA/CULTURE REFLEX Routine 04/25/2024 6:1 0 AM EST CBC AUTO DIFFERENTIAL Routine 04/25/2024 6:09 AM EST PROTIME-INR Routine 04/25/2024 6:09 AM EST MAGNESIUM Routine 04/25/2024 6:09 AM EST HEPATIC FUNCTION PANEL Routine 6:09 AM EST BASIC METABOLIC PANEL Routine 04/25/2024 6:09 AM EST LACTIC ACID, PLASMA Timed 04/24/2024 11:39 PM EST XR CHEST 1 VW STAT 04/24/2024 11:12 PM EST LACTIC ACID, PLASMA Timed 04/24/2024 9 :18 PM EST BLOOD CULTURE STAT 04/24/2024 6:13 PM EST BLOOD CULTURE STAT 04/24/2024 6:13 PM EST documented in this encounter Results * Due to [place] state law, this organization might not be sharing negative HIV tests. * (ABNORMAL) Hepatic function panel (05/03/2024 3:18 AM EST) Total Protein 6.1 6.0 - 8.0 g/dL 05/03/2024 4:12 AM EST [facility] Albumin 3.0(L) 3.5 - 5.2 g/dL 05/03/2024 4:12 AM EST [facility] Globulin, Total 3.1 2.1 - 4.2 g/dL 05/03/2024 4:12 AM EST [facility] Bilirubin, Total 2.4(H) 0.2 - 1.2 mg/dL 05/03/2024 4:12 AM EST [facility] Bilirubin, Direct 1.4(H) <=0.4 mg/dL 05/03/2024 4:12 AM EST [facility] Alkaline Phosphatase 181(H) 35 - 129 U/L 05/03/2024 4:12 AM EST [facility] AST 69(H) 10 - 40 U/L 05/03/2024 4:12 AM EST [facility] ALT 47(H) 10 - 40 U/L 05/03/2024 4:12 AM EST [facility] Bilirubin, Indirect 1.00(H) <=0.70 mg/dL 05/03/2024 4:12 AM EST [facility] A/G Ratio 1.0(L) 1.5 - 3.0 05/03/2024 4:12 AM EST [facility] Blood Structure of peripheral vein / Unknown Venipuncture / Unknown 05/03/2024 3:18 AM EST 05/03/2024 3:41 AM EST Rachel Murray MD LAB BLOOD ORDERABLES Final Resul t Performing Organization Address [facility] Co de Phone Number [facility] [address] [place] [address], [place] * (ABNORMAL) Protime-INR (05/03/2024 3:18 AM EST) PT 16.5(H) 9.6 - 12.4 Seconds 05/03/2024 4:00 AM EST [facility] INR 1.5 0.9 - 1.1 05/03/2024 4:00 AM EST [facility] Comment:The optimal therapeu tic INR range for patients treated with Vitamin K antagonists (VKAS, e.g., Warfarin) is 2.0 to 3.5. Discuss the desired range with your doctor/care team. Blood Structure of peripheral vein / Unknown Venipuncture / Unknown 05/03/2024 3:18 AM EST 05/03/2024 3:41 AM EST Rachel Murray MD LAB BLOOD ORDERABLES Final Resul t Performing Organization Address [facility]/ZIP Co de Phone Number [facility] [address] [place] [address], * (ABNORMAL) CBC Auto Differential (05/03/2024 3:18 AM EST) WBC 4.3 3.8 - 10.8 10*3/uL 05/03/2024 4:26 AM EST [facility] RBC 3.68(L) 4.20 - 5.80 10*6/uL 05/03/2024 4:26 AM EST [facility] Hemoglobin 11.6(L) 13.2 - 17.1 g/dL 05/03/2024 4:26 AM EST [facility] Hematocrit 34.7(L) 38.5 - 50.0 % 05/03/2024 4:26 AM EST [facility] MCV 94.3 80.0 - 100.0 fL 05/03/2024 4:26 AM EST [facility] MCH 31.5 27.0 - 33.0 pg 05/03/2024 4:26 AM EST [facility] MCHC 33.4 32.0 - 36.0 g/dL 05/03/2024 4:26 AM EST [facility] RDW 17.0(H) 11.0 - 15.0 % 05/03/2024 4:26 AM EST [facility] Platelets 86(L) 140 - 400 10*3/uL 05/03/2024 4:26 AM EST [facility] MPV 10.6 7.5 - 12.5 fL 05/03/2024 4:26 AM EST [facility] Neutrophil % 62.6 % 05/03/2024 4:26 AM EST [facility] Immature Grans % 0.5 0.0 - 0.9 % 05/03/2024 4:26 AM EST [facility] Lymphocyte % 15.3 % 05/03/2024 4:26 AM EST [facility] Monocyte % 19.5 % 05/03/2024 4:26 AM EST [facility] Eosinophil % 1.6 % 05/03/2024 4:26 AM EST [facility] Basophil % 0.5 % 05/03/2024 4:26 AM EST [facility] Neutrophil # 2.69 1.50 - 7.80 10*3/uL 05/03/2024 4:26 AM EST [facility] Immature Grans # <0.03 <=0.03 10*3/uL 05/03/2024 4:26 AM EST [facility] Lymphocyte # 0.70(L) 0.85 - 3.90 10*3/uL 05/03/2024 4:26 AM EST [facility] Monocyte # 0.80 0.20 - 0.95 10*3/uL 05/03/2024 4:26 AM EST [facility] Eosinophil # 0.10 0.02 - 0.50 10*3/uL 05/03/2024 4:26 AM EST [facility] Basophil # <0.03 0.00 - 0.20 10*3/uL 05/03/2024 4:26 AM EST [facility] nRBC % 0.0 /100 WBCs 05/03/2024 4:26 AM EST [facility] nRBC # <0.01 <0.01 10*3/uL 05/03/2024 4:26 AM EST [facility] Blood Structure of peripheral vein / Unknown Venipuncture / Unknown 05/03/2024 3:18 AM EST 05/03/2024 3:41 AM EST us Rachel Murray MD LAB BLOOD ORDERABLES Final Resul t [facility] [address] [place] [address], * Magnesium (05/03/2024 3:18 AM EST) MG 1.8 1.6 - 2.4 mg/dL 05/03/2024 4:12 AM EST [facility] Blood Structure of peripheral vein / Unknown Venipuncture / Unknown 05/03/2024 3:18 AM EST 05/03/2024 3:41 AM EST us Rachel Murray MD LAB BLOOD ORDERABLES Final Resul t [facility] [address] [place] [address], * (ABNORMAL) Basic Metabolic Panel (05/03/2024 3:18 AM EST) NA 135 135 - 145 mmol/L 05/03/2024 4:12 AM EST [facility] K 3.7 3.5 - 5.3 mmol/L 05/03/2024 4:12 AM EST [facility] Cl 105 98 - 107 mmol/L 05/03/2024 4:12 AM EST [facility] CO2 21(L) 22 - 32 mmol/L 05/03/2024 4:12 AM EST [facility] BUN 14 7 - 23 mg/dL 05/03/2024 4:12 AM EST [facility] Creatinine 0.60 0.60 - 1.30 mg/dL 05/03/2024 4:12 AM EST [facility] Glucose 113(H) 65 - 99 mg/dL 05/03/2024 4:12 AM EST [facility] Calcium 8.2(L) 8.6 - 10.5 mg/dL 05/03/2024 4:12 AM EST [facility] Anion Gap 9 5 - 15 05/03/2024 4:12 AM EST [facility] eGFR >90 >=60 mL/min/1. 73m2 05/03/2024 4:12 AM EST [facility] Comment:The estimated glomer ular filtration rate (eGFR) is calculated using a new formula developed by the NKF-ASN task force to eliminate race-based correction factors. The new formula uses serum/plasma creatinine, age, and gender to determine eGFR. A value below 60mls/min might indicate kidney disease and will be flagged. For additional information, see Oriana et al, Am J Kidney Dis. 2021;79(2):268- 288, A Unifying Approach for GFR estimation: Recommendations of the NKF-ASN Task Force on Reassessing the Inclusion of Race in Diagnosing Kidney Disease . Blood Structure of peripheral vein / Unknown Venipuncture / Unknown 05/03/2024 3:18 AM EST 05/03/2024 3:41 AM EST us Rachel Murray MD LAB BLOOD ORDERABLES Final Resul t [facility] [address] [place] [address], [place] * [place] C-Arm ERCP in [place] NONREPORTABLE (05/02/2024 4:31 PM EST) Narrative IMAGING - 05/02/2024 4:35 PM EST This procedure does not contain a result. Please see the surgeon's note for official report. us Rachel Murray MD IMG FLUOROSCOPY PROCEDURES Final Result Performing Organization Address City/[facility] Co de Phone Number IMAGING * Type and screen (05/02/2024 9:21 AM EST) ABO Blood Type B 05/02/2024 10:29 AM EST [facility] RH Type Positive 05/02/2024 10:29 AM EST [facility] Expiration Date/Time 2024-05-05 23:59 05/02/2024 10:29 AM EST [facility] Antibody Screen Negative 05/02/2024 10:29 AM EST [facility] Blood Structure of peripheral vein / Unknown Venipuncture / Unknown 05/02/2024 9:21 AM EST 05/02/2024 9:36 AM EST Delmis Joseph MD LAB BLOOD BANK TEST ORDERAB LES Edited Result - Final [facility] [address] [place] [address], [place] [phone] * (ABNORMAL) Manual Differential (05/02/2024 4:11 AM EST) Neutrophil %, Manual 86 % 05/02/2024 5:24 AM EST [facility] Band % 1 0 - 7 % 05/02/2024 5:24 AM EST [facility] Lymphocyte %, Manual 9 % 05/02/2024 5:24 AM EST [facility] Monocyte %, Manual 4 % 05/02/2024 5:24 AM EST [facility] Eosinophil %, Manual 0 % 05/02/2024 5:24 AM EST [facility] Basophil %, Manual 0 % 05/02/2024 5:24 AM EST [facility] Total Neutrophil #, Manual 3.57 1.50 - 7.80 10*3/uL 05/02/2024 5:24 AM EST [facility] Bands #,Manual 0.04 10*3/uL 05/02/2024 5:24 AM EST [facility] Total Lymph #, Manual 0.37(L) 0.85 - 3.90 10*3/uL 05/02/2024 5:24 AM EST [facility] Monocyte #, Manual 0.16(L) 0.20 - 0.95 10*3/uL 05/02/2024 5:24 AM EST [facility] Eosinophil #, Manual 0.00(L) 0.02 - 0.50 10*3/uL 05/02/2024 5:24 AM EST [facility] Basophil #, Manual 0.00 0.00 - 0.20 10*3/uL 05/02/2024 5:24 AM EST [facility] Platelet Estimate Decrease d(A) Adequate 05/02/2024 5:24 AM EST [facility] RBC Morphology Present( A) Normal, No clinically significant RBC morphology present (ICSH guidelines, 2015). 05/02/2024 5:24 AM EST [facility] [place] Cells 2+(A) Not Present 05/02/2024 5:24 AM EST [facility] Total Cells Counted 115 05/02/2024 5:24 AM EST [facility] Blood Structure of peripheral vein / Unknown Venipuncture / Unknown 05/02/2024 4:11 AM EST 05/02/2024 4:30 AM EST us Rachel Murray MD LAB BLOOD ORDERABLES Final Resul t Performing Organization Address City/State/[facility] Co de Phone Number [facility] [address] [place] [address], * (ABNORMAL) CBC Auto Differential (05/02/2024 4:11 AM EST) WBC 4.1 3.8 - 10.8 10*3/uL 05/02/2024 5:24 AM EST [facility] RBC 3.57(L) 4.20 - 5.80 10*6/uL 05/02/2024 5:24 AM EST [facility] Hemoglobin 11.3(L) 13.2 - 17.1 g/dL 05/02/2024 5:24 AM EST [facility] Hematocrit 32.6(L) 38.5 - 50.0 % 05/02/2024 5:24 AM EST [facility] MCV 91.3 80.0 - 100.0 fL 05/02/2024 5:24 AM EST [facility] MCH 31.7 27.0 - 33.0 pg 05/02/2024 5:24 AM EST [facility] MCHC 34.7 32.0 - 36.0 g/dL 05/02/2024 5:24 AM EST [facility] RDW 16.6(H) 11.0 - 15.0 % 05/02/2024 5:24 AM EST [facility] Platelets 80(L) 140 - 400 10*3/uL 05/02/2024 5:24 AM EST [facility] Comment:No clots present. MPV 10.1 7.5 - 12.5 fL 05/02/2024 5:24 AM EST [facility] nRBC % 0.0 /100 WBCs 05/02/2024 5:24 AM EST [facility] nRBC # <0.01 <0.01 10*3/uL 05/02/2024 5:24 AM EST [facility] Blood Structure of peripheral vein / Unknown Venipuncture / Unknown 05/02/2024 4:11 AM EST 05/02/2024 4:30 AM EST us Rachel Murray MD LAB BLOOD ORDERABLES Final Resul t [facility] [address] [place] [address], * (ABNORMAL) Hepatic function panel (05/02/2024 4:10 AM EST) Total Protein 6.3 6.0 - 8.0 g/dL 05/02/2024 4:59 AM EST [facility] Albumin 3.2(L) 3.5 - 5.2 g/dL 05/02/2024 4:59 AM EST [facility] Globulin, Total 3.1 2.1 - 4.2 g/dL 05/02/2024 4:59 AM EST [facility] Bilirubin, Total 2.2(H) 0.2 - 1.2 mg/dL 05/02/2024 4:59 AM EST [facility] Bilirubin, Direct 1.3(H) <=0.4 mg/dL 05/02/2024 4:59 AM EST [facility] Alkaline Phosphatase 191(H) 35 - 129 U/L 05/02/2024 4:59 AM EST [facility] AST 81(H) 10 - 40 U/L 05/02/2024 4:59 AM EST [facility] ALT 50(H) 10 - 40 U/L 05/02/2024 4:59 AM EST [facility] Bilirubin, Indirect 0.90(H) <=0.70 mg/dL 05/02/2024 4:59 AM EST [facility] A/G Ratio 1.0(L) 1.5 - 3.0 05/02/2024 4:59 AM EST [facility] Blood Structure of peripheral vein / Unknown Venipuncture / Unknown 05/02/2024 4:10 AM EST 05/02/2024 4:29 AM EST us Rachel Murray MD LAB BLOOD ORDERABLES Final Resul t [facility] [address] [place] [address], * (ABNORMAL) Protime-INR (05/02/2024 4:10 AM EST) PT 16.2(H) 9.6 - 12.4 Seconds 05/02/2024 5:03 AM EST [facility] INR 1.5 0.9 - 1.1 05/02/2024 5:03 AM EST [facility] Comment:The optimal therapeu tic INR range for patients treated with Vitamin K antagonists (VKAS, e.g., Warfarin) is 2.0 to 3.5. Discuss the desired range with your doctor/care team. Blood Structure of peripheral vein / Unknown Venipuncture / Unknown 05/02/2024 4:10 AM EST 05/02/2024 4:30 AM EST us Rachel Murray MD LAB BLOOD ORDERABLES Final Resul t Performing Organization Address City/[facility]/ZIP Co de Phone Number [facility] [address] [place] [address] * Magnesium (05/02/2024 4:10 AM EST) MG 1.8 1.6 - 2.4 mg/dL 05/02/2024 4:59 AM EST [facility] Blood Structure of peripheral vein / Unknown Venipuncture / Unknown 05/02/2024 4:10 AM EST 05/02/2024 4:29 AM EST us Rachel Murray MD LAB BLOOD ORDERABLES Final Resul t Performing Organization Address [facility] de Phone Number [facility] [address] [place] [address] * (ABNORMAL) Basic Metabolic Panel (05/02/2024 4:10 AM EST) NA 135 135 - 145 mmol/L 05/02/2024 4:59 AM EST [employer] [facility] K 3.3(L) 3.5 - 5.3 mmol/L 05/02/2024 4:59 AM EST [facility] Cl 104 98 - 107 mmol/L 05/02/2024 4:59 AM EST [facility] CO2 19(L) 22 - 32 mmol/L 05/02/2024 4:59 AM EST [facility] BUN 16 7 - 23 mg/dL 05/02/2024 4:59 AM EST [facility] Creatinine 0.53(L) 0.60 - 1.30 mg/dL 05/02/2024 4:59 AM EST [facility] Glucose 125(H) 65 - 99 mg/dL 05/02/2024 4:59 AM EST [facility] Calcium 8.3(L) 8.6 - 10.5 mg/dL 05/02/2024 4:59 AM EST [facility] Anion Gap 12 5 - 15 05/02/2024 4:59 AM EST [facility] eGFR >90 >=60 mL/min/1 .73m2 05/02/2024 4:59 AM EST [facility] Comment:The estimated glomer ular filtration rate (eGFR) is calculated using a new formula developed by the NKF-ASN task force to eliminate race-based correction factors. The new formula uses serum/plasma creatinine, age, and gender to determine eGFR. A value below 60mls/min might indicate kidney disease and will be flagged. For additional information, see Oriana et al, Am J Kidney Dis. 2021;79(2):268- 288, A Unifying Approach for GFR estimation: Recommendations of the NKF-ASN Task Force on Reassessing the Inclusion of Race in Diagnosing Kidney Disease . Blood Structure of peripheral vein / Unknown Venipuncture / Unknown 05/02/2024 4:10 AM EST 05/02/2024 4:29 AM EST us Rachel Murray MD LAB BLOOD ORDERABLES Final Resul t [facility] [facility] [address] [place] [address], * ENDOSCOPIC RETROGRADE CHOLANGIOPANCREATOGRAPHY (05/02/2024) Narrative Procedure Note Rachel Murray MD - 05/02/2024 1:19 PM EST [facility] Patient Name: Nate Correa Procedure Date: 05/02/2024 1:19 PM Date of : 1960 Admit Type: Inpatient Age: 63 Room: [place] [address] Gender: Male Note Status: Finalized Attending MD: Rachel Murray MD Procedure: ERCP Indications: Acute cholecystitis Comorbidities Providers: Rachel Murray MD, Pedro Limon (Fellow) Referring MD: Requesting Provider: Medicines: General Anesthesia, Zosyn 3.375 g IV Complications: No immediate complications. Estimated Blood Loss: Estimated blood loss: none. Procedure: Pre-Anesthesia Assessment: - Prior to the procedure, a History and Physicalwas performed, and patient medications and allergieswere reviewed. The patient is competent. The risks and benefits of the procedure and the sedation optionsand risks were discussed with the patient. Allquestions were answered and informed consent was obtained. Patient identification and proposed procedure were verified by the physician, the nurse and the anesthesiologist in the pre-procedure area in the procedure room. Mental Status Examination: alertand oriented. Airway Examination: normal oropharyngeal airway and neck mobility. Respiratory Examination: clear to auscultation. CV Examination: normal. Prophylactic Antibiotics: The patient requires prophylactic antibiotics. Prior Anticoagulants: The patient has taken no anticoagulant or antiplatelet agents. ASA Grade Assessment: III - A patient with severe systemic disease. After reviewing the risksand benefits, the patient was deemed in satisfactory condition to undergo the procedure. The anesthesia plan was to use general anesthesia. Immediatelyprior to administration of medications, the patient was re-assessed for adequacy to receive sedatives. The heart rate, respiratory rate, oxygen saturations, blood pressure, adequacy of pulmonary ventilation,and response to care were monitored throughout the procedure. The physical status of the patient was re-assessed after the procedure. After obtaining informed consent, the scope waspassed under direct vision. Throughout the procedure, the patient's blood pressure, pulse, and oxygen saturations were monitored continuously. The Disposable Exalt Model C Scope was introducedthrough the mouth, and used to inject contrast into andused to inject contrast into the bile duct. The patient tolerated the procedure well. The ERCP wastechnically difficult and complex. Total patient fluoro time 2428s, total patient dose 2549mGy. Findings: A biliary stent and PCT were visible on the switch inspector film. The esophagus was successfully intubated under direct vision without detailed examination of the pharynx, larynx, and associated structures, andupper GI tract. The upper GI tract was grossly normal. One metal stent originating in the biliary tree was emerging from the major papilla.The stent was visibly patent. A 0.035 inch x 450 cm straight HydraJagwire was passed into the biliary tree via the metal stent. The short-nosed traction sphincterotome was passed over the guidewire and the bileduct was then deeply cannulated. Contrast was injected. I personally interpreted the bile duct images. There was brisk flow of contrast through the ducts. Image quality was excellent. Contrast extended tothe entire biliary tree. The gallbladder contained multiple impactedstones. The cystic duct contained segmental stenoses. Despite being able topass a 0.025 inch wire into the cystic duct and gallbladder, givenstenosed and tortuous cystic duct, unable to pass dilating balloon into the cystic duct/gallbladder to perform dilation. Therefore, one 7 Fr by 5cm transpapillary plastic biliary stent with a full external pigtail remi full internal pigtail was placed into the cystic duct althoughplacement was very distal and unlikely to provide adequate gallbladderdrainage. Given some mild oozing, likely from the cystic duct, one 10 Fr by 4cm transpapillary plastic biliary stent with a full external pigtail remi full internal pigtail was placed into the common bile duct. Bileflowed through the stent. The stent was in good position. Impression: - One visibly patent stent from the biliary treewas seen in the major papilla. This was left in situ - Multiple impacted stones found in thegallbladder. - Significantly tortuous and stenosed cysticduct. - Unable to pass catheter or dilating balloon intothe gallbladder/cystic duct. - One co-axial 7Fr x 5cm plastic biliary stent was placed into the distal cystic duct which isunlikely to provide adequate drainage of the gallbladder. - Given mild oozing, one co-axial 10F x 4cm plastic biliary stent was placed into the common bileduct. Recommendation: - [facility] - Clear liquid diet today, then advance astolerated to advance diet as tolerated. - Watch for pancreatitis, bleeding, perforation,and cholangitis. - Repeat ERCP in 2 months for stent removal and re-attempt at adequate drainage Attending Participation: I was present and participated during the entire procedure, including non-abarca portions. Rachel Murray MD 05/02/2024 4:42:50 PM This report has been signed electronically. Number of Addenda: 0 Note Initiated On: 05/02/2024 1:19 PM us Rachel Murray MD PROVATION PROCEDURES Final Resul t * (ABNORMAL) Hepatic function panel (05/01/2024 3:51 AM EST) Total Protein 6.6 6.0 - 8.0 g/dL 05/01/2024 5:23 AM EST [facility] Albumin 3.4(L) 3.5 - 5.2 g/dL 05/01/2024 5:23 AM EST [facility] Globulin, Total 3.2 2.1 - 4.2 g/dL 05/01/2024 5:23 AM EST [facility] Bilirubin, Total 2.3(H) 0.2 - 1.2 mg/dL 05/01/2024 5:23 AM EST [facility] Bilirubin, Direct 1.5(H) <=0.4 mg/dL 05/01/2024 5:23 AM EST [facility] Alkaline Phosphatase 159(H) 35 - 129 U/L 05/01/2024 5:23 AM EST [facility] AST 63(H) 10 - 40 U/L 05/01/2024 5:23 AM EST [facility] ALT 37 10 - 40 U/L 05/01/2024 5:23 AM EST [facility] Bilirubin, Indirect 0.80(H) <=0.70 mg/dL 05/01/2024 5:23 AM EST [facility] A/G Ratio 1.1(L) 1.5 - 3.0 05/01/2024 5:23 AM EST [facility] Blood Structure of peripheral vein / Unknown Venipuncture / Unknown 05/01/2024 3:51 AM EST 05/01/2024 4:53 AM EST us Rachel Murray MD LAB BLOOD ORDERABLES Final Resul t [facility] [address] [place] [id number], * (ABNORMAL) Protime-INR (05/01/2024 3:51 AM EST) PT 16.6(H) 9.6 - 12.4 Seconds 05/01/2024 5:12 AM EST [facility] INR 1.6 0.9 - 1.1 05/01/2024 5:12 AM EST [facility] Comment:The optimal therapeu tic INR range for patients treated with Vitamin K antagonists (VKAS, e.g., Warfarin) is 2.0 to 3.5. Discuss the desired range with your doctor/care team. Blood Structure of peripheral vein / Unknown Venipuncture / Unknown 05/01/2024 3:51 AM EST 05/01/2024 4:52 AM EST us Rachel Murray MD LAB BLOOD ORDERABLES Final Resul t [facility] [address] [place] [address], [place] * (ABNORMAL) CBC Auto Differential (05/01/2024 3:51 AM EST) WBC 8.8 3.8 - 10.8 10*3/uL 05/01/2024 4:59 AM EST [facility] RBC 3.72(L) 4.20 - 5.80 10*6/uL 05/01/2024 4:59 AM EST [facility] Hemoglobin 11.6(L) 13.2 - 17.1 g/dL 05/01/2024 4:59 AM EST [facility] Hematocrit 34.1(L) 38.5 - 50.0 % 05/01/2024 4:59 AM EST [facility] MCV 91.7 80.0 - 100.0 fL 05/01/2024 4:59 AM EST [facility] MCH 31.2 27.0 - 33.0 pg 05/01/2024 4:59 AM EST [facility] MCHC 34.0 32.0 - 36.0 g/dL 05/01/2024 4:59 AM EST [facility] RDW 16.4(H) 11.0 - 15.0 % 05/01/2024 4:59 AM EST [facility] Platelets 117(L) 140 - 400 10*3/uL 05/01/2024 4:59 AM EST [employer] [facility] MPV 10.3 7.5 - 12.5 fL 05/01/2024 4:59 AM EST [facility] Neutrophil % 78.5 % 05/01/2024 4:59 AM EST [facility] Immature Grans % 0.5 0.0 - 0.9 % 05/01/2024 4:59 AM EST [facility] Lymphocyte % 8.1 % 05/01/2024 4:59 AM EST [facility] Monocyte % 12.7 % 05/01/2024 4:59 AM EST [facility] Eosinophil % 0.0 % 05/01/2024 4:59 AM EST [facility] Basophil % 0.2 % 05/01/2024 4:59 AM EST [facility] Neutrophil # 6.92 1.50 - 7.80 10*3/uL 05/01/2024 4:59 AM EST [facility] Immature Grans # 0.04(H) <=0.03 10*3/uL 05/01/2024 4:59 AM EST [facility] Lymphocyte # 0.70(L) 0.85 - 3.90 10*3/uL 05/01/2024 4:59 AM EST [facility] Monocyte # 1.10(H) 0.20 - 0.95 10*3/uL 05/01/2024 4:59 AM EST [facility] Eosinophil # <0.03 0.02 - 0.50 10*3/uL 05/01/2024 4:59 AM EST [facility] Basophil # <0.03 0.00 - 0.20 10*3/uL 05/01/2024 4:59 AM EST [facility] nRBC % 0.0 /100 WBCs 05/01/2024 4:59 AM EST [facility] nRBC # <0.01 <0.01 10*3/uL 05/01/2024 4:59 AM EST [facility] Blood Structure of peripheral vein / Unknown Venipuncture / Unknown 05/01/2024 3:51 AM EST 05/01/2024 4:52 AM EST us Rachel Murray MD LAB BLOOD ORDERABLES Final Resul t Performing Organization Address City/[facility] Co de Phone Number [facility] [address] [place] [address], * Magnesium (05/01/2024 3:51 AM EST) MG 1.9 1.6 - 2.4 mg/dL 05/01/2024 5:23 AM EST [facility] Blood Structure of peripheral vein / Unknown Venipuncture / Unknown 05/01/2024 3:51 AM EST 05/01/2024 4:53 AM EST Rachel Murray MD LAB BLOOD ORDERABLES Final Resul t Performing Organization Address City/[facility] Co de Phone Number [facility] [address] [place] [address], * (ABNORMAL) Basic Metabolic Panel (05/01/2024 3:51 AM EST) NA 134(L) 135 - 145 mmol/L 05/01/2024 5:23 AM EST [facility] K 3.8 3.5 - 5.3 mmol/L 05/01/2024 5:23 AM EST [facility] Cl 104 98 - 107 mmol/L 05/01/2024 5:23 AM EST [facility] CO2 18(L) 22 - 32 mmol/L 05/01/2024 5:23 AM EST [facility] BUN 20 7 - 23 mg/dL 05/01/2024 5:23 AM EST [facility] Creatinine 0.67 0.60 - 1.30 mg/dL 05/01/2024 5:23 AM EST [facility] Glucose 154(H) 65 - 99 mg/dL 05/01/2024 5:23 AM EST [facility] Calcium 8.5(L) 8.6 - 10.5 mg/dL 05/01/2024 5:23 AM EST [facility] Anion Gap 12 5 - 15 05/01/2024 5:23 AM EST [facility] eGFR >90 >=60 mL/min/1. 73m2 05/01/2024 5:23 AM EST [facility] Comment:The estimated glomer ular filtration rate (eGFR) is calculated using a new formula developed by the NKF-ASN task force to eliminate race-based correction factors. The new formula uses serum/plasma creatinine, age, and gender to determine eGFR. A value below 60mls/min might indicate kidney disease and will be flagged. For additional information, see Gastelum et al, Am J Kidney Dis. 2021;79(2):268- 288, A Unifying Approach for GFR estimation: Recommendations of the NKF-ASN Task Force on Reassessing the Inclusion of Race in Diagnosing Kidney Disease . Blood Structure of peripheral vein / Unknown Venipuncture / Unknown 05/01/2024 3:51 AM EST 05/01/2024 4:53 AM EST us Rachel Murray MD LAB BLOOD ORDERABLES Final Resul t [facility] [address] [place] [id number], * (ABNORMAL) Smear Review (04/30/2024 2:56 PM EST) Platelet Estimate Decrease d(A) Adequate 04/30/2024 3:56 PM EST [facility] RBC Morphology Present( A) Normal, No clinically significant RBC morphology present (ICSH guidelines, 2015). 04/30/2024 3:56 PM EST [facility] Anisocytosis 2+(A) Not Present 04/30/2024 3:56 PM EST [facility] Macrocytes 2+(A) Not Present 04/30/2024 3:56 PM EST [facility] Acanthocytes 2+(A) Not Present 04/30/2024 3:56 PM EST [facility] Chrissie Cells 2+(A) Not Present 04/30/2024 3:56 PM EST [facility] Blood Structure of peripheral vein / Unknown Venipuncture / Unknown 04/30/2024 2:56 PM EST 04/30/2024 3:07 PM EST us Delmis Joseph MD LAB BLOOD ORDERABLES Final Result [facility] [address] [place] [address], * (ABNORMAL) CBC (04/30/2024 2:56 PM EST) WBC 8.0 3.8 - 10.8 10*3/uL 04/30/2024 3:56 PM EST [facility] RBC 3.67(L) 4.20 - 5.80 10*6/uL 04/30/2024 3:56 PM EST [facility] Hemoglobin 11.6(L) 13.2 - 17.1 g/dL 04/30/2024 3:56 PM EST [facility] Hematocrit 34.3(L) 38.5 - 50.0 % 04/30/2024 3:56 PM EST [facility] MCV 93.5 80.0 - 100.0 fL 04/30/2024 3:56 PM EST [facility] MCH 31.6 27.0 - 33.0 pg 04/30/2024 3:56 PM EST [facility] MCHC 33.8 32.0 - 36.0 g/dL 04/30/2024 3:56 PM EST [facility] RDW 16.5(H) 11.0 - 15.0 % 04/30/2024 3:56 PM EST [facility] Platelets 98(L) 140 - 400 10*3/uL 04/30/2024 3:56 PM EST [facility] MPV 10.6 7.5 - 12.5 fL 04/30/2024 3:56 PM EST [facility] Comment:A smear review has b een added. Clinician review and interpretation will be needed once the report is final. Blood Structure of peripheral vein / Unknown Venipuncture / Unknown 04/30/2024 2:56 PM EST 04/30/2024 3:07 PM EST us Delmis Joseph MD LAB BLOOD ORDERABLES Final Result [facility]ITAL[facility]ing[facility]DC [facility] [address] [place] [address], [place] * (ABNORMAL) Manual Differential (04/30/2024 4:01 AM EST) Neutrophil %, Manual 94 % 04/30/2024 5:06 AM EST [facility] Lymphocyte %, Manual 1 % 04/30/2024 5:06 AM EST [facility] Monocyte %, Manual 4 % 04/30/2024 5:06 AM EST [facility] Eosinophil %, Manual 0 % 04/30/2024 5:06 AM EST [facility] Basophil %, Manual 0 % 04/30/2024 5:06 AM EST [facility] Reactive Lymphocyte % 1 0 - 6 % 04/30/2024 5:06 AM EST [facility] Total Neutrophil #, Manual 4.04 1.50 - 7.80 10*3/uL 04/30/2024 5:06 AM EST [facility] Total Lymph #, Manual 0.09(L) 0.85 - 3.90 10*3/uL 04/30/2024 5:06 AM EST [facility] Monocyte #, Manual 0.17(L) 0.20 - 0.95 10*3/uL 04/30/2024 5:06 AM EST [facility] Eosinophil #, Manual 0.00(L) 0.02 - 0.50 10*3/uL 04/30/2024 5:06 AM EST [facility] Basophil #, Manual 0.00 0.00 - 0.20 10*3/uL 04/30/2024 5:06 AM EST [facility] Reactive Lymphocytes # 0.04 10*3/uL 04/30/2024 5:06 AM EST [facility] Platelet Estimate Decrease d(A) Adequate 04/30/2024 5:06 AM EST [facility] RBC Morphology Present( A) Normal, No clinically significant RBC morphology present (ICSH guidelines, 2015). 04/30/2024 5:06 AM EST [facility] Anisocytosis 2+(A) Not Present 04/30/2024 5:06 AM EST [facility]less[facility] Acanthocytes 2+(A) Not Present 04/30/2024 5:06 AM EST [facility] Chrissie Cells 3+(A) Not Present 04/30/2024 5:06 AM EST [facility] Total Cells Counted 115 04/30/2024 5:06 AM EST [facility] Blood Structure of peripheral vein / Unknown Venipuncture / Unknown 04/30/2024 4:01 AM EST 04/30/2024 4:26 AM EST us Rachel Murray MD LAB BLOOD ORDERABLES Final Resul t [facility] [address] [place] [address], [place] * (ABNORMAL) Hepatic function panel (04/30/2024 4:01 AM EST) Total Protein 5.9(L) 6.0 - 8.0 g/dL 04/30/2024 4:54 AM EST [facility] Albumin 3.1(L) 3.5 - 5.2 g/dL 04/30/2024 4:54 AM EST [facility] Globulin, Total 2.8 2.1 - 4.2 g/dL 04/30/2024 4:54 AM EST [facility] Bilirubin, Total 3.7(H) 0.2 - 1.2 mg/dL 04/30/2024 4:54 AM EST [facility] Bilirubin, Direct 2.1(H) <=0.4 mg/dL 04/30/2024 4:54 AM EST [facility] Alkaline Phosphatase 109 35 - 129 U/L 04/30/2024 4:54 AM EST [facility] AST 46(H) 10 - 40 U/L 04/30/2024 4:54 AM EST [facility] ALT 29 10 - 40 U/L 04/30/2024 4:54 AM EST [facility] Bilirubin, Indirect 1.60(H) <=0.70 mg/dL 04/30/2024 4:54 AM EST [facility] A/G Ratio 1.1(L) 1.5 - 3.0 04/30/2024 4:54 AM EST [facility] Blood Structure of peripheral vein / Unknown Venipuncture / Unknown 04/30/2024 4:01 AM EST 04/30/2024 4:26 AM EST us Rachel Murray MD LAB BLOOD ORDERABLES Final Resul t [facility] [address] [place] [address], [place] * (ABNORMAL) Protime-INR (04/30/2024 4:01 AM EST) PT 17.8(H) 9.6 - 12.4 Seconds 04/30/2024 4:52 AM EST [facility] INR 1.7 0.9 - 1.1 04/30/2024 4:52 AM EST [facility] Comment:The optimal therapeu tic INR range for patients treated with Vitamin K antagonists (VKAS, e.g., Warfarin) is 2.0 to 3.5. Discuss the desired range with your doctor/care team. Blood Structure of peripheral vein / Unknown Venipuncture / Unknown 04/30/2024 4:01 AM EST 04/30/2024 4:26 AM EST us Rachel Murray MD LAB BLOOD ORDERABLES Final Resul t [facility] [address] [place] [address], * (ABNORMAL) CBC Auto Differential (04/30/2024 4:01 AM EST) Pathologist [facility] WBC 4.3 3.8 - 10.8 10*3/uL 04/30/2024 5:06 AM EST [facility] RBC 3.54(L) 4.20 - 5.80 10*6/uL 04/30/2024 5:06 AM EST [facility] Hemoglobin 11.4(L) 13.2 - 17.1 g/dL 04/30/2024 5:06 AM EST [facility] Hematocrit 32.9(L) 38.5 - 50.0 % 04/30/2024 5:06 AM EST [facility] MCV 92.9 80.0 - 100.0 fL 04/30/2024 5:06 AM EST [facility] MCH 32.2 27.0 - 33.0 pg 04/30/2024 5:06 AM EST [facility] MCHC 34.7 32.0 - 36.0 g/dL 04/30/2024 5:06 AM EST [facility] RDW 16.3(H) 11.0 - 15.0 % 04/30/2024 5:06 AM EST [facility] Platelets 76(L) 140 - 400 10*3/uL 04/30/2024 5:06 AM EST [facility] MPV 10.5 7.5 - 12.5 fL 04/30/2024 5:06 AM EST [facility] nRBC % 0.0 /100 WBCs 04/30/2024 5:06 AM EST [facility] nRBC # <0.01 <0.01 10*3/uL 04/30/2024 5:06 AM EST [facility] Blood Structure of peripheral vein / Unknown Venipuncture / Unknown 04/30/2024 4:01 AM EST 04/30/2024 4:26 AM EST us Rachel Murray MD LAB BLOOD ORDERABLES Final Resul t Performing Organization Address City/[facility]/ZIP Co de Phone Number [facility] [address] [place] [phone], * Magnesium (04/30/2024 4:01 AM EST) MG 2.1 1.6 - 2.4 mg/dL 04/30/2024 4:54 AM EST [facility] Blood Structure of peripheral vein / Unknown Venipuncture / Unknown 04/30/2024 4:01 AM EST 04/30/2024 4:26 AM EST us Rachel Murray MD LAB BLOOD ORDERABLES Final Resul t [facility] [address] [place] [address], * (ABNORMAL) Basic Metabolic Panel (04/30/2024 4:01 AM EST) NA 133(L) 135 - 145 mmol/L 04/30/2024 4:54 AM EST [facility] K 4.5 3.5 - 5.3 mmol/L 04/30/2024 4:54 AM EST [facility] Cl 105 98 - 107 mmol/L 04/30/2024 4:54 AM EST [facility] CO2 17(L) 22 - 32 mmol/L 04/30/2024 4:54 AM EST [facility] BUN 21 7 - 23 mg/dL 04/30/2024 4:54 AM EST [facility] Creatinine 0.74 0.60 - 1.30 mg/dL 04/30/2024 4:54 AM EST [facility] Glucose 163(H) 65 - 99 mg/dL 04/30/2024 4:54 AM EST [facility] Calcium 8.4(L) 8.6 - 10.5 mg/dL 04/30/2024 4:54 AM EST [facility] Anion Gap 11 5 - 15 04/30/2024 4:54 AM EST [facility] eGFR >90 >=60 mL/min/1. 73m2 04/30/2024 4:54 AM EST [employer] [facility] Comment:The estimated glomer ular filtration rate (eGFR) is calculated using a new formula developed by the NKF-ASN task force to eliminate race-based correction factors. The new formula uses serum/plasma creatinine, age, and gender to determine eGFR. A value below 60mls/min might indicate kidney disease and will be flagged. For additional information, see Oriana garcia al, Am J Kidney Dis. 2021;79(2):268- 288, A Unifying Approach for GFR estimation: Recommendations of the NKF-ASN Task Force on Reassessing the Inclusion of Race in Diagnosing Kidney Disease . Blood Structure of peripheral vein / Unknown Venipuncture / Unknown 04/30/2024 4:01 AM EST 04/30/2024 4:26 AM EST us Rachel Murray MD LAB BLOOD ORDERABLES Final Resul t [facility] [address] [place] [address], [place] * [place] C-Arm ERCP in OR NONREPORTABLE (04/29/2024 5:59 PM EST) Narrative IMAGING - 04/29/2024 6:01 PM EST This procedure does not contain a result. Please see the surgeon's note for official report. us Rachel Murray MD IMG FLUOROSCOPY PROCEDURES Final Result Performing Organization Address City/[facility] Co de Phone Number IMAGING * [place] ABDOM PARACENTESIS DX/THER W IMAGING GUIDANCE (04/29/2024 1:30 PM EST) Narrative Delmis Joseph MD - 04/29/2024 1:30 PM EST Damaris Enriquez MD ? 04/29/2024 ??1:34 PM Paracentesis Date/Time: 04/29/2024 1:30 PM Performed by: Damaris Enriquez MD Authorized by: Delmis Joseph MD ?? Consent: ??Patient Identity Confirmed: ??Name and with patient, Name and MRN on the patient's armband and Verbally ??Verbal Consent Obtained?: ??Yes ??Written Consent Obtained?: ??Yes ??Risks and benefits discussed: ??Yes ??Consent given by: ??Spouse ??Patient states understanding of procedure being performed: ??Yes ??Patient's understanding of procedure matches consent: ??Yes [place] Protocol: ??Procedure consent matches procedure scheduled: ??Yes ??Relevant documents present and verified: ??Yes ??Test results available and properly labeled: ??Yes ??Site Marked: ??Yes ??Required blood products, implants, devices and special equipment available: ??Yes ??Immediately prior to the procedure a time out was called: ??Yes An attending physician was present for the procedure OR the procedure was performed by an Advanced Practice Provider Pre-procedure details: ??Procedure purpose: ??Therapeutic ??Preparation: Patient was prepped and draped in usual sterile fashion ?? Anesthesia (see MAR for exact dosages): ??Anesthesia method: ??Local infiltration ??Local anesthetic: ??Lidocaine 1% w/o epi Procedure details: ??Needle gauge: ??20 ??Ultrasound guidance: yes ?Puncture site: ??L lower quadrant ??Fluid removed amount: ??1.6 L ??Fluid appearance: ??Clear and yellow ??Dressing: ??4x4 sterile gauze and adhesive bandage Post-procedure details: ??Patient tolerance of procedure: ??Tolerated well, no immediate complications Comments: ?? Performed under the guidance of Dr. Jazlyn Bliss. Loculations noted on US. Delmis Joseph MD IN CLINIC/BEDSIDE ORDERABLE S Final Result * Extra Container, Other (04/29/2024 10:15 AM EST) Extra Tube Hold for add-ons. 04/29/2024 6:05 PM EST [facility] Comment:Auto resulted. Blood Structure of peripheral vein / Unknown 04/29/2024 10:15 AM EST 04/29/2024 1:05 PM EST Delmis Joseph MD LAB BLOOD ORDERABLES Final Result [facility] [address] [place] [address], * STAT Gram Stain (04/29/2024 10:15 AM EST) Gram Stain, STAT No organisms seen 04/29/2024 1:51 PM EST [facility] Gram Stain, STAT 3+ Polymorphonuclear leukocytes 04/29/2024 1:51 PM EST [facility] Gram Stain, STAT 2+ Mononuclear Cells 04/29/2024 1:51 PM EST [facility] Body Fluid Peritoneal cavity structure / Unknown Non-Blood Collection / Unknown 04/29/2024 10:15 AM EST 04/29/2024 1:00 PM EST Rachel Murray MD LAB MICROBIOLOGY - GENERAL ORDER ISRA[place] Final Result [facility] [address] [place] [address], * Anaerobic Culture (04/29/2024 10:15 AM EST) Culture No anaerobes isolated. 05/05/2024 6:12 PM EST [facility] Body Fluid Peritoneal cavity structure / Unknown Non-Blood Collection / Unknown 04/29/2024 10:15 AM EST 04/29/2024 1:00 PM EST Narrative [facility] - 05/05/2024 6:12 PM EST [facility] Received Date:[id number] MICRO NUMBER: [id number] SPECIMEN QUALITY: Adequate SOURCE: BODY FLUID PERITONEAL STATUS: FINAL Delmis Joseph MD LAB MICROBIOLOGY - GENERAL ORDERABLES Final Result [facility] [address], [place] [address], [place] [phone] [employer] [facility] [address] [facility] [address], [place] [address], [place] [phone] * Body Fluid Aerobic Culture (04/29/2024 10:15 AM EST) Culture No growth 05/05/2024 10:27 AM EST [facility] Body Fluid Peritoneal cavity structure / Unknown Non-Blood Collection / Unknown 04/29/2024 10:15 AM EST 04/29/2024 1:00 PM EST [facility] 05/05/2024 10:27 AM EST [facility] Received Date:[id number] MICRO NUMBER: [id number] SPECIMEN QUALITY: Adequate SOURCE: BODY FLUID PERITONEAL STATUS: FINAL Delmis Joseph MD LAB MICROBIOLOGY - GENERAL ORDERABLES Final Result [facility] [address] [address], [place] [address], [place] [phone] [employer] [facility] [address], [place] [address], [place] [phone] * (ABNORMAL) Cell Count w/Differential, Peritoneal (04/29/2024 10:15 AM EST) Color, Peritoneal Yellow Colorless, Yellow, Straw 04/29/2024 2:13 PM EST [facility] Appearance, Peritoneal Hazy(A) Clear 04/29/2024 2:13 PM EST [facility] TNC/WBC, Peritoneal 363(H) <=250 cells/mm3 04/29/2024 2:13 PM EST [employer] [facility] Comment:Values of TNC <=250 do not rule out abnormality. Clinical correlation is advised. RBC, Peritoneal 3,000 Not established cells/mm3 04/29/2024 2:13 PM EST [facility] Neutrophils %, Peritoneal 58 % 04/29/2024 2:13 PM EST [facility] Lymphocytes %, Peritoneal 24 % 04/29/2024 2:13 PM EST [facility] [place]/Macrophage %, Peritoneal 17 % 04/29/2024 2:13 PM EST [facility] Basophil %, Peritoneal 1 % 04/29/2024 2:13 PM EST [employer] [facility] Mesothelial %, Peritoneal 1 % 04/29/2024 2:13 PM EST [facility] Differential Cells Counted, Peritoneal 102 04/29/2024 2:13 PM EST [facility] Peritoneal Fluid Specimen from peritoneum / Unknown Non-Blood Collection / Unknown 04/29/2024 10:15 AM EST 04/29/2024 1:00 PM EST Delmis Joseph MD LAB BODY FLUIDS AND STOOLS ORDERABLES Final Result [facility] [address] [place] [address], [place] * (ABNORMAL) Hepatic function panel (04/29/2024 4:30 AM EST) Total Protein 5.8(L) 6.0 - 8.0 g/dL 04/29/2024 5:27 AM EST [facility] Albumin 3.3(L) 3.5 - 5.2 g/dL 04/29/2024 5:27 AM EST [facility] Globulin, Total 2.5 2.1 - 4.2 g/dL 04/29/2024 5:27 AM EST [facility] Bilirubin, Total 5.9(H) 0.2 - 1.2 mg/dL 04/29/2024 5:27 AM EST [facility] Bilirubin, Direct 2.9(H) <=0.4 mg/dL 04/29/2024 5:27 AM EST [facility] Alkaline Phosphatase 109 35 - 129 U/L 04/29/2024 5:27 AM EST [facility] AST 44(H) 10 - 40 U/L 04/29/2024 5:27 AM EST [facility] ALT 30 10 - 40 U/L 04/29/2024 5:27 AM EST [facility] Bilirubin, Indirect 3.00(H) <=0.70 mg/dL 04/29/2024 5:27 AM EST [facility] A/G Ratio 1.3(L) 1.5 - 3.0 04/29/2024 5:27 AM EST [facility] Blood Structure of peripheral vein / Unknown Venipuncture / Unknown 04/29/2024 4:30 AM EST 04/29/2024 4:36 AM EST Rachel Murray MD LAB BLOOD ORDERABLES Final Resul t Performing Organization Address [facility] de Phone Number [facility] [address] [place] [address], [place] * (ABNORMAL) Protime-INR (04/29/2024 4:30 AM EST) PT 18.2(H) 9.6 - 12.4 Seconds 04/29/2024 4:55 AM EST [facility] INR 1.7 0.9 - 1.1 04/29/2024 4:55 AM EST [facility] Comment:The optimal therapeu tic INR range for patients treated with Vitamin K antagonists (VKAS, e.g., Warfarin) is 2.0 to 3.5. Discuss the desired range with your doctor/care team. Blood Structure of peripheral vein / Unknown Venipuncture / Unknown 04/29/2024 4:30 AM EST 04/29/2024 4:38 AM EST Rachel Murray MD LAB BLOOD ORDERABLES Final Resul t Performing Organization Address [facility] Phone Number [facility] [address] [place] [address], [place] * (ABNORMAL) CBC Auto Differential (04/29/2024 4:30 AM EST) WBC 8.7 3.8 - 10.8 10*3/uL 04/29/2024 4:44 AM EST [facility] RBC 3.75(L) 4.20 - 5.80 10*6/uL 04/29/2024 4:44 AM EST [facility] Hemoglobin 11.9(L) 13.2 - 17.1 g/dL 04/29/2024 4:44 AM EST [facility] Hematocrit 34.5(L) 38.5 - 50.0 % 04/29/2024 4:44 AM EST [facility] MCV 92.0 80.0 - 100.0 fL 04/29/2024 4:44 AM EST [facility] MCH 31.7 27.0 - 33.0 pg 04/29/2024 4:44 AM EST [facility] MCHC 34.5 32.0 - 36.0 g/dL 04/29/2024 4:44 AM EST [facility] RDW 16.3(H) 11.0 - 15.0 % 04/29/2024 4:44 AM EST [facility] Platelets 93(L) 140 - 400 10*3/uL 04/29/2024 4:44 AM EST [facility] MPV 10.2 7.5 - 12.5 fL 04/29/2024 4:44 AM EST [facility] Neutrophil % 73.8 % 04/29/2024 4:44 AM EST [facility] Immature Grans % 0.5 0.0 - 0.9 % 04/29/2024 4:44 AM EST [facility] Lymphocyte % 9.1 % 04/29/2024 4:44 AM EST [facility] Monocyte % 14.1 % 04/29/2024 4:44 AM EST [facility] Eosinophil % 1.8 % 04/29/2024 4:44 AM EST [facility] Basophil % 0.7 % 04/29/2024 4:44 AM EST [facility] Neutrophil # 6.42 1.50 - 7.80 10*3/uL 04/29/2024 4:44 AM EST [facility] Immature Grans # 0.04(H) <=0.03 10*3/uL 04/29/2024 4:44 AM EST [facility] Lymphocyte # 0.80(L) 0.85 - 3.90 10*3/uL 04/29/2024 4:44 AM EST [facility] Monocyte # 1.20(H) 0.20 - 0.95 10*3/uL 04/29/2024 4:44 AM EST [facility] Eosinophil # 0.20 0.02 - 0.50 10*3/uL 04/29/2024 4:44 AM EST [facility] Basophil # 0.10 0.00 - 0.20 10*3/uL 04/29/2024 4:44 AM EST [facility] nRBC % 0.0 /100 WBCs 04/29/2024 4:44 AM EST [facility] nRBC # <0.01 <0.01 10*3/uL 04/29/2024 4:44 AM EST [facility] Blood Structure of peripheral vein / Unknown Venipuncture / Unknown 04/29/2024 4:30 AM EST 04/29/2024 4:37 AM EST us Rachel Murray MD LAB BLOOD ORDERABLES Final Resul t [employer] [address] [place] [address], * Magnesium (04/29/2024 4:30 AM EST) MG 1.9 1.6 - 2.4 mg/dL 04/29/2024 5:27 AM EST [facility] Blood Structure of peripheral vein / Unknown Venipuncture / Unknown 04/29/2024 4:30 AM EST 04/29/2024 4:36 AM EST Rachel Murray MD LAB BLOOD ORDERABLES Final Resul t [employer] [facility] [address] [place] [address], * (ABNORMAL) Basic Metabolic Panel (04/29/2024 4:30 AM EST) NA 130(L) 135 - 145 mmol/L 04/29/2024 5:28 AM EST [facility] K 3.9 3.5 - 5.3 mmol/L 04/29/2024 5:28 AM EST [facility] Cl 102 98 - 107 mmol/L 04/29/2024 5:28 AM EST [employer] CO2 15(LL) 22 - 32 mmol/L 04/29/2024 5:28 AM EST [employer] [facility] [facility] BUN 20 7 - 23 mg/dL 04/29/2024 5:28 AM EST [employer] [facility] [facility] Creatinine 0.88 0.60 - 1.30 mg/dL 04/29/2024 5:28 AM EST [facility] Glucose 130(H) 65 - 99 mg/dL 04/29/2024 5:28 AM EST [employer] [facility] Calcium 8.6 8.6 - 10.5 mg/dL 04/29/2024 5:28 AM EST [facility] Anion Gap 13 5 - 15 04/29/2024 5:28 AM EST [facility] eGFR >90 >=60 mL/min/1. 73m2 04/29/2024 5:28 AM EST [facility] Comment:The estimated glomer ular filtration rate (eGFR) is calculated using a new formula developed by the NKF-ASN task force to eliminate race-based correction factors. The new formula uses serum/plasma creatinine, age, and gender to determine eGFR. A value below 60mls/min might indicate kidney disease and will be flagged. For additional information, see Oriana et al, Am J Kidney Dis. 2021;79(2):268- 288, A Unifying Approach for GFR estimation: Recommendations of the NKF-ASN Task Force on Reassessing the Inclusion of Race in Diagnosing Kidney Disease . Blood Structure of peripheral vein / Unknown Venipuncture / Unknown 04/29/2024 4:30 AM EST 04/29/2024 4:36 AM EST us Rachel Murray MD LAB BLOOD ORDERABLES Final Resul t [facility] [address] [place] [address], [place] * ENDOSCOPIC RETROGRADE CHOLANGIOPANCREATOGRAPHY (04/29/2024) Narrative Procedure Note Rachel Murray MD - 04/29/2024 3:18 PM EST [facility] Patient Name: Nate Correa Procedure Date: 04/29/2024 3:18 PM Date of : 1960 Admit Type: Inpatient Age: 63 Room: [place] [address] Gender: Male Note Status: Finalized Attending MD: Rachel Murray MD Procedure: ERCP Indications: SBP, history of cholecystitis s/p percutaneous cholecystotomy tube,here for transcystic stenting Comorbidities Patient Profile: This is a 63 year old male. Refer to note inpatient chart for documentation of history and physical. Providers: Rachel Murray MD, Chris Grijalva MD (Fellow) Referring MD: Requesting Provider: Medicines: General Anesthesia, Piperacil 3.375 g IV Complications: No immediate complications. Estimated blood loss: Minimal. Estimated Blood Loss: Estimated blood loss was minimal. Procedure: Pre-Anesthesia Assessment: - Prior to the procedure, a History and Physicalwas performed, and patient medications and allergieswere reviewed. The patient is competent. The risks and benefits of the procedure and the sedation optionsand risks were discussed with the patient. Allquestions were answered and informed consent was obtained. Patient identification and proposed procedure were verified by the physician, the nurse and the internal grinding machine operator in the pre-procedure area in theendoscopy suite. Mental Status Examination: alert andoriented. Respiratory Examination: clear to auscultation. CV Examination: normal. Prophylactic Antibiotics: The patient requires prophylactic antibiotics. Prior Anticoagulants: The patient has taken noanticoagulant or antiplatelet agents. ASA Grade Assessment: III -A patient with severe systemic disease. Afterreviewing the risks and benefits, the patient was deemed in satisfactory condition to undergo the procedure.The anesthesia plan was to use general anesthesia. Immediately prior to administration of medications, the patient was re-assessed for adequacy to receive sedatives. The heart rate, respiratory rate, oxygen saturations, blood pressure, adequacy of pulmonary ventilation, and response to care were monitored throughout the procedure. The physical status ofthe patient was re-assessed after the procedure. After obtaining informed consent, the scope waspassed under direct vision. Throughout the procedure, the patient's blood pressure, pulse, and oxygen saturations were monitored continuously. The was introduced through the mouth, and used to inject contrast into and used to cannulate the bile duct.The ERCP was accomplished without difficulty. Thepatient tolerated the procedure well. The total fluoroscopy exposure time was 589 seconds (604.5 mGy). Findings: A switch inspector film of the abdomen was obtained. Percutaneous drain(s) were seen. The esophagus was successfully intubated under direct vision without detailed examination of the pharynx, larynx, and associated structures, and upper GI tract. The upper GI tract was grosslynormal. The major papilla was on the rim of a diverticulum. The ventral pancreatic duct was inadvertently cannulated with the short-nosed traction sphincterotome without any complications. The entireopacified area was normal. One 5 Fr by 7 cm pancreatic stent with a single external pigtail and a single internal flap was placed into theventral pancreatic duct. Clear fluid flowed through the stent. The stent wasin good position. The bile duct could not be cannulated with the short-nosed traction sphincterotome. Biliary orifice pre-cut sphincterotomies were made with a traction (standard) sphincterotome using ERBE electrocautery. The sphincterotomy oozed blood. Difficult cannulation therefore decision was to remove PD stent. One stent was removed from the pancreatic duct using a Raptor grasping device. Was able to pass a 0.035 inch x 450 cm straight Hydra Jagwire into the biliary tree. The short-nosed traction sphincterotome was passed over the guidewire and the bile duct was then deeply cannulated. Contrastwas injected. I personally interpreted the bile duct images. Ductal flowof contrast was adequate. Image quality was adequate. Contrast extendedto the main bile duct. The middle third of the main bile duct wasnormal. The biliary sphincterotomy was extended with a monofilament traction (standard) sphincterotome using ERBE electrocautery. Thesphincterotomy oozed blood. Decision was to place a stent and proceed withtrancystic stenting in 48 hours. One 10 mm by 6 cm covered metal stent wasplaced into the common bile duct. Bile flowed through the stent. The stentwas in good position. The total fluoroscopy exposure time was 589 seconds (604.5 mGy). Impression: - The major papilla was on the rim of adiverticulum. - Difficult cannulation, required PD cannulation, stenting, and removal of PD stent. - Precut sphincterotomy was done and then sphincterotomy was extended. Mild bleeding after sphincterotomy. Decision was to place CBD stent and proceed with interval trancystic stenting at repeat ERCP. - One 10 mm x 6 cm covered metal stent was placedinto the common bile duct. Recommendation: - [facility]. - Clear liquid diet. - Repeat ERCP in 2 days to exchange stent and do trancystic stenting. - Trend CBC/LFTs - Watch for pancreatitis, bleeding, perforation,and cholangitis. - Continue Abx per primary team Rachel Murray MD 04/29/2024 6:04:34 PM This report has been signed electronically. Number of Addenda: 0 Note Initiated On: 04/29/2024 3:18 PM us Rachel Murray MD [employer]OVATION PROCEDURES Final Resul t * (ABNORMAL) Hepatic function panel (04/28/2024 12:16 PM EST) Total Protein 6.1 6.0 - 8.0 g/dL 04/28/2024 1:51 PM EST [facility] Albumin 3.6 3.5 - 5.2 g/dL 04/28/2024 1:51 PM EST [facility] Globulin, Total 2.5 2.1 - 4.2 g/dL 04/28/2024 1:51 PM EST [facility] Bilirubin, Total 8.1(H) 0.2 - 1.2 mg/dL 04/28/2024 1:51 PM EST [facility] Bilirubin, Direct 3.9(H) <=0.4 mg/dL 04/28/2024 1:51 PM EST [facility] Alkaline Phosphatase 117 35 - 129 U/L 04/28/2024 1:51 PM EST [facility] AST 52(H) 10 - 40 U/L 04/28/2024 1:51 PM EST [facility] ALT 35 10 - 40 U/L 04/28/2024 1:51 PM EST [facility] Bilirubin, Indirect 4.20(H) <=0.70 mg/dL 04/28/2024 1:51 PM EST [facility] A/G Ratio 1.4(L) 1.5 - 3.0 04/28/2024 1:51 PM EST [facility] Blood Structure of peripheral vein / Unknown Venipuncture / Unknown 04/28/2024 12:16 PM EST 04/28/2024 12:54 PM EST Rachel Murray MD LAB BLOOD ORDERABLES Final Resul t Performing Organization Address [facility]/ZIP Co de Phone Number [facility] [address] [place] [address] * Magnesium (04/28/2024 12:16 PM EST) MG 2.0 1.6 - 2.4 mg/dL 04/28/2024 1:49 PM EST [employer] [facility] Blood Structure of peripheral vein / Unknown Venipuncture / Unknown 04/28/2024 12:16 PM EST 04/28/2024 12:54 PM EST Rachel Murray MD LAB BLOOD ORDERABLES Final Resul t Performing Organization Address [facility] Co de Phone Number [facility] [address] [place] [address] * (ABNORMAL) Basic Metabolic Panel (04/28/2024 12:16 PM EST) NA 133(L) 135 - 145 mmol/L 04/28/2024 1:49 PM EST [facility] K 4.0 3.5 - 5.3 mmol/L 04/28/2024 1:49 PM EST [facility] Cl 101 98 - 107 mmol/L 04/28/2024 1:49 PM EST [facility] CO2 17(L) 22 - 32 mmol/L 04/28/2024 1:49 PM EST [facility] BUN 16 7 - 23 mg/dL 04/28/2024 1:49 PM EST [facility] Creatinine 0.97 0.60 - 1.30 mg/dL 04/28/2024 1:49 PM EST [facility] Glucose 124(H) 65 - 99 mg/dL 04/28/2024 1:49 PM EST [facility] Calcium 9.0 8.6 - 10.5 mg/dL 04/28/2024 1:49 PM EST [facility] Anion Gap 15 5 - 15 04/28/2024 1:49 PM EST [facility] eGFR 87 >=60 mL/min/1. 73m2 04/28/2024 1:49 PM EST [facility] Comment:The estimated glomer ular filtration rate (eGFR) is calculated using a new formula developed by the NKF-ASN task force to eliminate race-based correction factors. The new formula uses serum/plasma creatinine, age, and gender to determine eGFR. A value below 60mls/min might indicate kidney disease and will be flagged. For additional information, see Oriana et al, Am J Kidney Dis. 2021;79(2):268- 288, A Unifying Approach for GFR estimation: Recommendations of the NKF-ASN Task Force on Reassessing the Inclusion of Race in Diagnosing Kidney Disease . Blood Structure of peripheral vein / Unknown Venipuncture / Unknown 04/28/2024 12:16 PM EST 04/28/2024 12:54 PM EST us Rachel Murray MD LAB BLOOD ORDERABLES Final Resul t [employer] [facility] [address] [place] [address], * (ABNORMAL) Protime-INR (04/28/2024 5:40 AM EST) PT 18.2(H) 9.6 - 12.4 Seconds 04/28/2024 6:05 AM EST [facility] INR 1.7 0.9 - 1.1 04/28/2024 6:05 AM EST [facility] Comment:The optimal therapeu tic INR range for patients treated with Vitamin K antagonists (VKAS, e.g., Warfarin) is 2.0 to 3.5. Discuss the desired range with your doctor/care team. Blood Structure of peripheral vein / Unknown Venipuncture / Unknown 04/28/2024 5:40 AM EST 04/28/2024 5:49 AM EST us Rachel Murray MD LAB BLOOD ORDERABLES Final Resul t [facility] [address] [place] [address], [place] * (ABNORMAL) CBC Auto Differential (04/28/2024 5:30 AM EST) WBC 10.9(H) 3.8 - 10.8 10*3/uL 04/28/2024 5:59 AM EST [facility] RBC 3.80(L) 4.20 - 5.80 10*6/uL 04/28/2024 5:59 AM EST [facility] Hemoglobin 12.0(L) 13.2 - 17.1 g/dL 04/28/2024 5:59 AM EST [facility] Hematocrit 35.3(L) 38.5 - 50.0 % 04/28/2024 5:59 AM EST [facility] MCV 92.9 80.0 - 100.0 fL 04/28/2024 5:59 AM EST [facility] MCH 31.6 27.0 - 33.0 pg 04/28/2024 5:59 AM EST [facility] MCHC 34.0 32.0 - 36.0 g/dL 04/28/2024 5:59 AM EST [facility] RDW 16.3(H) 11.0 - 15.0 % 04/28/2024 5:59 AM EST [facility] Platelets 111(L) 140 - 400 10*3/uL 04/28/2024 5:59 AM EST [facility] MPV 10.9 7.5 - 12.5 fL 04/28/2024 5:59 AM EST [facility] Neutrophil % 76.7 % 04/28/2024 5:59 AM EST [facility] Immature Grans % 0.5 0.0 - 0.9 % 04/28/2024 5:59 AM EST [facility] Lymphocyte % 7.8 % 04/28/2024 5:59 AM EST [facility] Monocyte % 13.5 % 04/28/2024 5:59 AM EST [facility] Eosinophil % 0.9 % 04/28/2024 5:59 AM EST [facility] Basophil % 0.6 % 04/28/2024 5:59 AM EST [facility] Neutrophil # 8.33(H) 1.50 - 7.80 10*3/uL 04/28/2024 5:59 AM EST [facility] Immature Grans # 0.05(H) <=0.03 10*3/uL 04/28/2024 5:59 AM EST [facility] Lymphocyte # 0.90 0.85 - 3.90 10*3/uL 04/28/2024 5:59 AM EST [facility] Monocyte # 1.50(H) 0.20 - 0.95 10*3/uL 04/28/2024 5:59 AM EST [facility] Eosinophil # 0.10 0.02 - 0.50 10*3/uL 04/28/2024 5:59 AM EST [facility] Basophil # 0.10 0.00 - 0.20 10*3/uL 04/28/2024 5:59 AM EST [facility] nRBC % 0.0 /100 WBCs 04/28/2024 5:59 AM EST [facility] nRBC # <0.01 <0.01 10*3/uL 04/28/2024 5:59 AM EST [facility] Blood Structure of peripheral vein / Unknown Venipuncture / Unknown 04/28/2024 5:30 AM EST 04/28/2024 5:49 AM EST us Rachel Murray MD LAB BLOOD ORDERABLES Final Resul t [facility] [address] [place] [address], [place] * US Limited Abdomen Single Org (04/27/2024 11:23 PM EST) Anatomical Region Laterality Modality Body N/A Ultrasound 04/28/2024 8:25 AM EST Impressions 04/28/2024 8:28 AM EST Decompressed gallbladder containing gallstones and cholecystostomy tube. Mildly prominent extra hepatic biliary tree, the common bile duct measures 7 mm, upper limit of normal. Ascites. If this radiology report contains a blank impression section, it is an incomplete radiology report. ??Please contact the interpreting radiologist or applicable radiology division as soon as possible to obtain the completed interpretation. ? Workstation ID: [id number] Narrative 04/28/2024 8:28 AM EST EXAMINATION: Limited ultrasound of the abdomen. INDICATION: Liver enzyme elevation with increased bilirubin. TECHNIQUE: Limited ultrasound evaluation of the right upper quadrant of the abdomen. Multiple grayscale and color Doppler images were obtained. COMPARISON: [address] scan of the abdomen performed 04/25/2024. FINDINGS: LIVER: Hepatic cirrhosis. No focal lesions. The portal vein is patent on color Doppler with hepatopetal flow. BILIARY: The gallbladder is decompressed containing gallstones and cholecystostomy tube. The common bile duct measures 7 mm. PERITONEUM: Moderate perihepatic ascites. Resulting Agency Comment [id number] Procedure Note Kevin Rausch MD - 04/28/2024 EXAMINATION: Limited ultrasound of the abdomen. INDICATION: Liver enzyme elevation with increased bilirubin. TECHNIQUE: Limited ultrasound evaluation of the right upper quadrant ofthe abdomen. Multiple grayscale and color Doppler images were obtained. COMPARISON: [address] scan of the abdomen performed 04/25/2024. FINDINGS: LIVER: Hepatic cirrhosis. No focal lesions. The portal vein is patent oncolor Doppler with hepatopetal flow. BILIARY: The gallbladder is decompressed containing gallstones andcholecystostomy tube. The common bile duct measures 7 mm. PERITONEUM: Moderate perihepatic ascites. IMPRESSION: Decompressed gallbladder containing gallstones and cholecystostomy tube. Mildly prominent extra hepatic biliary tree, the common bile duct measures7 mm, upper limit of normal. Ascites. If this radiology report contains a blank impression section, it is anincomplete radiology report. Please contact the interpreting radiologistor applicable radiology division as soon as possible to obtain thecompleted interpretation. Workstation ID: [id number] us Jeffrey Castro MD IMG US PROCEDURES Final Result * (ABNORMAL) Hepatic function panel (04/27/2024 5:00 AM EST) Total Protein 6.0 6.0 - 8.0 g/dL 04/27/2024 5:55 AM EST [facility] Albumin 3.8 3.5 - 5.2 g/dL 04/27/2024 5:55 AM EST [facility] Globulin, Total 2.2 2.1 - 4.2 g/dL 04/27/2024 5:55 AM EST [facility] Bilirubin, Total 4.3(H) 0.2 - 1.2 mg/dL 04/27/2024 5:55 AM EST [facility] Bilirubin, Direct 1.6(H) <=0.4 mg/dL 04/27/2024 5:55 AM EST [facility] Alkaline Phosphatase 128 35 - 129 U/L 04/27/2024 5:55 AM EST [facility] AST 74(H) 10 - 40 U/L 04/27/2024 5:55 AM EST [employer] ALT 34 10 - 40 U/L 04/27/2024 5:55 AM EST [facility] Bilirubin, Indirect 2.70(H) <=0.70 mg/dL 04/27/2024 5:55 AM EST [facility] A/G Ratio 1.7 1.5 - 3.0 04/27/2024 5:55 AM EST [facility] Blood Structure of peripheral vein / Unknown Venipuncture / Unknown 04/27/2024 5:00 AM EST 04/27/2024 5:20 AM EST us Rachel Murray MD LAB BLOOD ORDERABLES Final Resul t Performing Organization Address [facility] Co de Phone Number [facility] [address] [place] [address], [place] * (ABNORMAL) Protime-INR (04/27/2024 5:00 AM EST) PT 17.2(H) 9.6 - 12.4 Seconds 04/27/2024 5:46 AM EST [facility] INR 1.7 0.9 - 1.1 04/27/2024 5:46 AM EST [facility] Comment:The optimal therapeu tic INR range for patients treated with Vitamin K antagonists (VKAS, e.g., Warfarin) is 2.0 to 3.5. Discuss the desired range with your doctor/care team. Blood Structure of peripheral vein / Unknown Venipuncture / Unknown 04/27/2024 5:00 AM EST 04/27/2024 5:20 AM EST us Rachel Murray MD LAB BLOOD ORDERABLES Final Resul t Performing Organization Address [facility]/ZIP Co de Phone Number [facility] [address] [place] [address], [place] * (ABNORMAL) CBC Auto Differential (04/27/2024 5:00 AM EST) WBC 10.2 3.8 - 10.8 10*3/uL 04/27/2024 5:28 AM EST [facility] RBC 3.57(L) 4.20 - 5.80 10*6/uL 04/27/2024 5:28 AM EST [facility] Hemoglobin 11.5(L) 13.2 - 17.1 g/dL 04/27/2024 5:28 AM EST [facility] Hematocrit 32.6(L) 38.5 - 50.0 % 04/27/2024 5:28 AM EST [facility] MCV 91.3 80.0 - 100.0 fL 04/27/2024 5:28 AM EST [facility] MCH 32.2 27.0 - 33.0 pg 04/27/2024 5:28 AM EST [facility] MCHC 35.3 32.0 - 36.0 g/dL 04/27/2024 5:28 AM EST [facility] RDW 15.9(H) 11.0 - 15.0 % 04/27/2024 5:28 AM EST [facility] Platelets 115(L) 140 - 400 10*3/uL 04/27/2024 5:28 AM EST [facility] MPV 10.6 7.5 - 12.5 fL 04/27/2024 5:28 AM EST [facility] Neutrophil % 80.1 % 04/27/2024 5:28 AM EST [facility] Immature Grans % 0.5 0.0 - 0.9 % 04/27/2024 5:28 AM EST [facility] Lymphocyte % 6.5 % 04/27/2024 5:28 AM EST [facility] Monocyte % 11.2 % 04/27/2024 5:28 AM EST [facility] Eosinophil % 1.1 % 04/27/2024 5:28 AM EST [facility] Basophil % 0.6 % 04/27/2024 5:28 AM EST [facility] Neutrophil # 8.18(H) 1.50 - 7.80 10*3/uL 04/27/2024 5:28 AM EST [facility] Immature Grans # 0.05(H) <=0.03 10*3/uL 04/27/2024 5:28 AM EST [facility] Lymphocyte # 0.70(L) 0.85 - 3.90 10*3/uL 04/27/2024 5:28 AM EST [facility] Monocyte # 1.10(H) 0.20 - 0.95 10*3/uL 04/27/2024 5:28 AM EST [facility] Eosinophil # 0.10 0.02 - 0.50 10*3/uL 04/27/2024 5:28 AM EST [facility] Basophil # 0.10 0.00 - 0.20 10*3/uL 04/27/2024 5:28 AM EST [facility] nRBC % 0.0 /100 WBCs 04/27/2024 5:28 AM EST [facility] nRBC # <0.01 <0.01 10*3/uL 04/27/2024 5:28 AM EST [facility] Blood Structure of peripheral vein / Unknown Venipuncture / Unknown 04/27/2024 5:00 AM EST 04/27/2024 5:20 AM EST us Rachel Murray MD LAB BLOOD ORDERABLES Final Resul t [facility]STLineStream [facility] [address] [place] [address], * Magnesium (04/27/2024 5:00 AM EST) Pathologist [facility] [place] MG 1.9 1.6 - 2.4 mg/dL 04/27/2024 5:52 AM EST [facility] Blood Structure of peripheral vein / Unknown Venipuncture / Unknown 04/27/2024 5:00 AM EST 04/27/2024 5:20 AM EST Rachel Murray MD LAB BLOOD ORDERABLES Final Resul t [facility] [address] [place] [address], * (ABNORMAL) Basic Metabolic Panel (04/27/2024 5:00 AM EST) Pathologist [facility] [place] NA 133(L) 135 - 145 mmol/L 04/27/2024 5:52 AM EST [facility] K 3.7 3.5 - 5.3 mmol/L 04/27/2024 5:52 AM EST [facility] Cl 103 98 - 107 mmol/L 04/27/2024 5:52 AM EST [facility] CO2 16(L) 22 - 32 mmol/L 04/27/2024 5:52 AM EST [facility] BUN 13 7 - 23 mg/dL 04/27/2024 5:52 AM EST [facility] Creatinine 0.79 0.60 - 1.30 mg/dL 04/27/2024 5:52 AM EST [facility] Glucose 128(H) 65 - 99 mg/dL 04/27/2024 5:52 AM EST [facility] Calcium 8.8 8.6 - 10.5 mg/dL 04/27/2024 5:52 AM EST [facility] Anion Gap 14 5 - 15 04/27/2024 5:52 AM EST [facility] eGFR >90 >=60 mL/min/1. 73m2 04/27/2024 5:52 AM EST [facility] Comment:The estimated glomer ular filtration rate (eGFR) is calculated using a new formula developed by the NKF-ASN task force to eliminate race-based correction factors. The new formula uses serum/plasma creatinine, age, and gender to determine eGFR. A value below 60mls/min might indicate kidney disease and will be flagged. For additional information, see Oriana et al, Am J Kidney Dis. 2021;79(2):268- 288, A Unifying Approach for GFR estimation: Recommendations of the NKF-ASN Task Force on Reassessing the Inclusion of Race in Diagnosing Kidney Disease . Blood Structure of peripheral vein / Unknown Venipuncture / Unknown 04/27/2024 5:00 AM EST 04/27/2024 5:20 AM EST Rachel Murray MD LAB BLOOD ORDERABLES Final Resul t Performing Organization Address [facility] de Phone Number [facility] [address] [place] [address], [place] * Vancomycin, Trough (04/26/2024 7:55 AM EST) Vancomycin Trough 14.2 10.0 - 20.0 ug/mL 04/26/2024 8:33 AM EST [facility] Comment: Before interpreting a drug level, check the time the dose was given in the MAR to ensure the level was drawn appropriately. 10-15 ug/mL: Empiric/Mild infections 15-20 ug/mL: Severe MRSA infection (pneumonia, meningitis, endocarditis) Blood Structure of peripheral vein / Unknown Venipuncture / Unknown 04/26/2024 7:55 AM EST 04/26/2024 8:00 AM EST us Natalio Lara MD LAB BLOOD ORDERABLES Final Re sult Performing Organization Address [facility] Co de Phone Number [facility] [address] [place] [address], [place] * (ABNORMAL) Smear Review (04/26/2024 5:01 AM EST) Pathologist [facility] [place] Platelet Estimate Decrease d(A) Adequate 04/26/2024 7:29 AM EST [facility] Comment:PLT: Rare platelet c lumps, counts appear decreased RBC Morphology Present( A) Normal, No clinically significant RBC morphology present (ICSH guidelines, 2015). 04/26/2024 7:29 AM EST [facility] Acanthocytes 2+(A) Not Present 04/26/2024 7:29 AM EST [facility] Chrissie Cells 2+(A) Not Present 04/26/2024 7:29 AM EST [facility] Blood Structure of peripheral vein / Unknown Venipuncture / Unknown 04/26/2024 5:01 AM EST 04/26/2024 5:29 AM EST us Natalio Lara MD LAB BLOOD ORDERABLES Final Re sult [facility] [address] [place] [address], [place] * (ABNORMAL) Hepatic function panel (04/26/2024 5:01 AM EST) Pathologist [facility] [place] Total Protein 5.7(L) 6.0 - 8.0 g/dL 04/26/2024 6:08 AM EST [facility] Albumin 3.5 3.5 - 5.2 g/dL 04/26/2024 6:08 AM EST [facility] Globulin, Total 2.2 2.1 - 4.2 g/dL 04/26/2024 6:08 AM EST [facility] Bilirubin, Total 2.5(H) 0.2 - 1.2 mg/dL 04/26/2024 6:08 AM EST [facility] Bilirubin, Direct 0.6(H) <=0.4 mg/dL 04/26/2024 6:08 AM EST [facility] Alkaline Phosphatase 76 35 - 129 U/L 04/26/2024 6:08 AM EST [facility] AST 34 10 - 40 U/L 04/26/2024 6:08 AM EST [facility] ALT 20 10 - 40 U/L 04/26/2024 6:08 AM EST [facility] Bilirubin, Indirect 1.90(H) <=0.70 mg/dL 04/26/2024 6:08 AM EST [facility]less[facility] A/G Ratio 1.6 1.5 - 3.0 04/26/2024 6:08 AM EST [facility] Blood Structure of peripheral vein / Unknown Venipuncture / Unknown 04/26/2024 5:01 AM EST 04/26/2024 5:31 AM EST us Rachel Murray MD LAB BLOOD ORDERABLES Final Resul t Performing Organization Address City/State/[facility] Co de Phone Number [facility] [address] [place] [id number], * (ABNORMAL) Protime-INR (04/26/2024 5:01 AM EST) PT 16.1(H) 9.6 - 12.4 Seconds 04/26/2024 5:48 AM EST [facility]Kin[facility]ix[facility] INR 1.5 0.9 - 1.1 04/26/2024 5:48 AM EST [facility]ix[facility] Comment:The optimal therapeu tic INR range for patients treated with Vitamin K antagonists (VKAS, e.g., Warfarin) is 2.0 to 3.5. Discuss the desired range with your doctor/care team. Blood Structure of peripheral vein / Unknown Venipuncture / Unknown 04/26/2024 5:01 AM EST 04/26/2024 5:28 AM EST us Rachel Murray MD LAB BLOOD ORDERABLES Final Resul t [facility] [address] [place] [address], [place] * (ABNORMAL) CBC Auto Differential (04/26/2024 5:01 AM EST) WBC 7.2 3.8 - 10.8 10*3/uL 04/26/2024 7:29 AM EST [facility] RBC 3.37(L) 4.20 - 5.80 10*6/uL 04/26/2024 7:29 AM EST [facility] Hemoglobin 10.8(L) 13.2 - 17.1 g/dL 04/26/2024 7:29 AM EST [facility] Hematocrit 30.9(L) 38.5 - 50.0 % 04/26/2024 7:29 AM EST [facility] MCV 91.7 80.0 - 100.0 fL 04/26/2024 7:29 AM EST [facility] MCH 32.0 27.0 - 33.0 pg 04/26/2024 7:29 AM EST [facility] MCHC 35.0 32.0 - 36.0 g/dL 04/26/2024 7:29 AM EST [facility] RDW 15.6(H) 11.0 - 15.0 % 04/26/2024 7:29 AM EST [facility] Platelets 104(L) 140 - 400 10*3/uL 04/26/2024 7:29 AM EST [facility] MPV 10.7 7.5 - 12.5 fL 04/26/2024 7:29 AM EST [facility] Neutrophil % 77.8 % 04/26/2024 7:29 AM EST [facility] Immature Grans % 0.3 0.0 - 0.9 % 04/26/2024 7:29 AM EST [facility] Lymphocyte % 8.5 % 04/26/2024 7:29 AM EST [facility] Monocyte % 10.9 % 04/26/2024 7:29 AM EST [facility] Eosinophil % 1.7 % 04/26/2024 7:29 AM EST [facility] Basophil % 0.8 % 04/26/2024 7:29 AM EST [facility] Neutrophil # 5.56 1.50 - 7.80 10*3/uL 04/26/2024 7:29 AM EST [facility] Immature Grans # <0.03 <=0.03 10*3/uL 04/26/2024 7:29 AM EST [facility] Lymphocyte # 0.60(L) 0.85 - 3.90 10*3/uL 04/26/2024 7:29 AM EST [facility] Monocyte # 0.80 0.20 - 0.95 10*3/uL 04/26/2024 7:29 AM EST [facility] Eosinophil # 0.10 0.02 - 0.50 10*3/uL 04/26/2024 7:29 AM EST [facility] Basophil # 0.10 0.00 - 0.20 10*3/uL 04/26/2024 7:29 AM EST [facility] nRBC % 0.0 /100 WBCs 04/26/2024 7:29 AM EST [facility] nRBC # <0.01 <0.01 10*3/uL 04/26/2024 7:29 AM EST [facility] Blood Structure of peripheral vein / Unknown Venipuncture / Unknown 04/26/2024 5:01 AM EST 04/26/2024 5:29 AM EST us Rachel Murray MD LAB BLOOD ORDERABLES Final Resul t [facility] [address] [place] [address], * Magnesium (04/26/2024 5:01 AM EST) MG 1.9 1.6 - 2.4 mg/dL 04/26/2024 6:08 AM EST [facility] Blood Structure of peripheral vein / Unknown Venipuncture / Unknown 04/26/2024 5:01 AM EST 04/26/2024 5:31 AM EST Rachel Murray MD LAB BLOOD ORDERABLES Final Resul t [facility] [address] [place] [address], * (ABNORMAL) Basic Metabolic Panel (04/26/2024 5:01 AM EST) NA 132(L) 135 - 145 mmol/L 04/26/2024 6:08 AM EST [facility] K 3.7 3.5 - 5.3 mmol/L 04/26/2024 6:08 AM EST [facility] Cl 103 98 - 107 mmol/L 04/26/2024 6:08 AM EST [facility] CO2 17(L) 22 - 32 mmol/L 04/26/2024 6:08 AM EST [facility] BUN 17 7 - 23 mg/dL 04/26/2024 6:08 AM EST [facility] Creatinine 0.73 0.60 - 1.30 mg/dL 04/26/2024 6:08 AM EST [facility] Glucose 122(H) 65 - 99 mg/dL 04/26/2024 6:08 AM EST [facility] Calcium 8.7 8.6 - 10.5 mg/dL 04/26/2024 6:08 AM EST [employer] [facility] Anion Gap 12 5 - 15 04/26/2024 6:08 AM EST [facility] eGFR >90 >=60 mL/min/1. 73m2 04/26/2024 6:08 AM EST [facility] Comment:The estimated glomer ular filtration rate (eGFR) is calculated using a new formula developed by the NKF-ASN task force to eliminate race-based correction factors. The new formula uses serum/plasma creatinine, age, and gender to determine eGFR. A value below 60mls/min might indicate kidney disease and will be flagged. For additional information, see Oriana et al, Am J Kidney Dis. 2021;79(2):268- 288, A Unifying Approach for GFR estimation: Recommendations of the NKF-ASN Task Force on Reassessing the Inclusion of Race in Diagnosing Kidney Disease . Blood Structure of peripheral vein / Unknown Venipuncture / Unknown 04/26/2024 5:01 AM EST 04/26/2024 5:31 AM EST us Rachel Murray MD LAB BLOOD ORDERABLES Final Resul t [facility] [address] [place] [address], * Lactic Acid, Plasma (04/26/2024 5:01 AM EST) Lactic Acid 1.6 0.5 - 1.9 mmol/L 04/26/2024 6:06 AM EST [facility] Comment: Sepsis Screening: Initial Lactate Level >2.0 mmol/L - Repeat Lactate Level within 3 hours. Initial Lactate Level >4.0 mmol/L - Repeat Lactate Level within 3 hours, Initiate Septic Shock Protocol. Blood Structure of peripheral vein / Unknown Venipuncture / Unknown 04/26/2024 5:01 AM EST 04/26/2024 5:31 AM EST us Natalio Lara MD LAB BLOOD ORDERABLES Final Re sult [facility] [address] [place] [address], [place] * CT 3 Phase Liver Mass With Pelvis w Contrast (04/25/2024 1:39 PM EST) Anatomical Region Laterality Modality Liver Computed Tomogra phy 04/25/2024 3:22 PM EST Impressions 04/25/2024 4:52 PM EST 1. ??Decompensated cirrhosis. No focal liver lesions. Splenic enlargement, gastric fundal and paraesophageal varices. Gross ascites. 2. ??Moderate left-sided pleural effusion. If this radiology report contains a blank impression section, it is an incomplete radiology report. ??Please contact the interpreting radiologist or applicable radiology division as soon as possible to obtain the completed interpretation. ? Workstation ID: [id number] Narrative 04/25/2024 4:52 PM EST EXAMINATION: CT 3 PHASE LIVER MASS WITH PELVIS WITH CONTRAST INDICATION: Liver transplant evaluation. TECHNIQUE: Images of the abdomen were obtained in the arterial, portal venous, and delayed phases following intravenous contrast administration. Portal venous phase images also include the pelvis. Coronal and sagittal reformats were generated. COMPARISON: 04/11/2024 and 01/29/2024 outside study. ?? FINDINGS: LOWER THORAX: Moderate left pleural effusion noted. Varices seen around the esophagus at the GE junction image 27 series 12. HEPATOBILIARY: No focal liver lesions noted. Cirrhotic nodular liver. Patent hepatic and portal veins. Cholecystostomy tube seen within the gallbladder. ??No bile duct dilatation. SPLEEN: 17.6 x 10.1 x 13.9 cm spleen. PANCREAS: Normal-appearing pancreas. ADRENAL GLANDS: No adrenal nodules. KIDNEYS/URETERS: Symmetric enhancement of the kidneys no hydronephrosis. No hydroureter. No solid mass. GI TRACT: Gastric fundal varices image 85 series 15. Small bowel loops are nondilated. Portal colopathy right colon. PERITONEUM/RETROPERITONEUM: Gross ascites. No free air. LYMPH NODES: No adenopathy. VESSELS: Aortic caliber normal. Ostial calcification SMA and celiac axis. PELVIC ORGANS/BLADDER: Urinary bladder unremarkable. BONES AND SOFT TISSUES: Over coverage of the femoral heads at the acetabulum image 112 series 15. Multilevel degenerative disc disease. No acute fracture. Resulting Agency Comment [id number] Procedure Note Cheryl Pitts MD - 04/25/2024 EXAMINATION: CT 3 PHASE LIVER MASS WITH PELVIS WITH CONTRAST INDICATION: Liver transplant evaluation. TECHNIQUE: Images of the abdomen were obtained in the arterial, portalvenous, and delayed phases following intravenous contrast administration.Portal venous phase images also include the pelvis. Coronal and sagittalreformats were generated. COMPARISON: 04/11/2024 and 01/29/2024 outside study. FINDINGS: LOWER THORAX: Moderate left pleural effusion noted. Varices seen aroundthe esophagus at the GE junction image 27 series 12. HEPATOBILIARY: No focal liver lesions noted. Cirrhotic nodular liver.Patent hepatic and portal veins. Cholecystostomy tube seen within thegallbladder. No bile duct dilatation. SPLEEN: 17.6 x 10.1 x 13.9 cm spleen. PANCREAS: Normal-appearing pancreas. ADRENAL GLANDS: No adrenal nodules. KIDNEYS/URETERS: Symmetric enhancement of the kidneys no hydronephrosis.No hydroureter. No solid mass. GI TRACT: Gastric fundal varices image 85 series 15. Small bowel loops arenondilated. Portal colopathy right colon. PERITONEUM/RETROPERITONEUM: Gross ascites. No free air. LYMPH NODES: No adenopathy. VESSELS: Aortic caliber normal. Ostial calcification SMA and celiacaxis. PELVIC ORGANS/BLADDER: Urinary bladder unremarkable. BONES AND SOFT TISSUES: Over coverage of the femoral heads at theacetabulum image 112 series 15. Multilevel degenerative disc disease. Noacute fracture. IMPRESSION: 1. Decompensated cirrhosis. No focal liver lesions. Splenic enlargement,gastric fundal and paraesophageal varices. Gross ascites. 2. Moderate left-sided pleural effusion. If this radiology report contains a blank impression section, it is anincomplete radiology report. Please contact the interpreting radiologistor applicable radiology division as soon as possible to obtain thecompleted interpretation. Workstation ID: [id number] Natalio Lara MD IM CT PROCEDURES Final Resul t * (ABNORMAL) Lactic Acid, Plasma (04/25/2024 11:31 AM EST) Lactic Acid 2.6(H) 0.5 - 1.9 mmol/L 04/25/2024 12:36 PM EST [facility] Comment: Sepsis Screening: Initial Lactate Level >2.0 mmol/L - Repeat Lactate Level within 3 hours. Initial Lactate Level >4.0 mmol/L - Repeat Lactate Level within 3 hours, Initiate Septic Shock Protocol. Blood Structure of peripheral vein / Unknown Venipuncture / Unknown 04/25/2024 11:31 AM EST 04/25/2024 12:07 PM EST Natalio Lara MD LAB BLOOD ORDERABLES Final Re sult [facility] [address] [place] [id number], * MRSA/S aureus PCR, Nasal (04/25/2024 6:13 AM EST) MRSA PCR, Nasal NOT DETECTED NOT DETECTED 04/25/2024 3:29 PM EST [employer] [facility] S. aureus PCR, Nasal NOT DETECTED NOT DETECTED 04/25/2024 3:29 PM EST [employer] [facility] Swab Nasal structure / Unknown Non-Blood Collection / Unknown 04/25/2024 6:13 AM EST 04/25/2024 6:26 AM EST Narrative [facility] - 04/25/2024 3:29 PM EST [facility] Received Date:[id number] Natalio Lara MD LAB BODY FLUIDS AND STOOLS OR DERABLES Final Result [facility] [address] [facility] [address]rd Floor, [place] [address], [place] [phone] [employer] [facility] [address] [facility] [address], [place] [address], [place] [phone] * Harvey Top, Urine (04/25/2024 6:10 AM EST) Pathologist [facility] [place] Extra Tube Hold for add-ons. 04/25/2024 11:05 AM EST [facility] Comment:Auto resulted. Urine Urine specimen collection, clean catch / Unknown Non-Blood Collection / Unknown 04/25/2024 6:10 AM EST 04/25/2024 6:26 AM EST us Natalio Lara MD LAB URINE ORDERABLES Final Re sult [facility] [address] [place] [address], [place] * (ABNORMAL) Urinalysis W/Reflex to Microscopic & Culture (04/25/2024 6:10 AM EST) Color, Urine Deann(A) Colorless, Light Yellow, Yellow, Dark Yellow 04/25/2024 6:39 AM EST [facility] Clarity, Urine Clear Clear 04/25/2024 6:39 AM EST [facility] Specific Donnelly, Urine 1.029 1.005 - 1.030 04/25/2024 6:39 AM EST [facility] pH, Urine 5.0 4.6 - 8.0 04/25/2024 6:39 AM EST [facility] Protein, Urine 1+(A) Negative 04/25/2024 6:39 AM EST [facility] Glucose, Urine Negative Negative 04/25/2024 6:39 AM EST [employer] [facility] Ketones, Urine Negative Negative 04/25/2024 6:39 AM EST [employer] [facility] Bilirubin, Urine Negative Negative 04/25/2024 6:39 AM EST [facility] Blood, Urine 1+(A) Negative 04/25/2024 6:39 AM EST [facility] Nitrite, Urine Negative Negative 04/25/2024 6:39 AM EST [employer] [facility] Urobilinogen, Urine Normal Normal 04/25/2024 6:39 AM EST [facility] Leukocyte Esterase, Urine Negative Negative 04/25/2024 6:39 AM EST [facility] WBC, Urine 2 0 - 2 /HPF 04/25/2024 6:39 AM EST [facility] RBC, Urine 1 0 - 2 /HPF 04/25/2024 6:39 AM EST [facility] Hyaline Casts, Urine 1 0 - 2 /LPF 04/25/2024 6:39 AM EST [facility] Squamous Epithelial Cells, Urine <1 /HPF 04/25/2024 6:39 AM EST [facility] Bacteria, Urine None None /HPF /HPF 04/25/2024 6:39 AM EST [facility] Urine Urine specimen collection, clean catch / Unknown Non-Blood Collection / Unknown 04/25/2024 6:10 AM EST 04/25/2024 6:26 AM EST us Natalio Lara MD LAB URINE ORDERABLES Final Re sult [facility] [address] [place] [address], * (ABNORMAL) Hepatic function panel (04/25/2024 6:09 AM EST) Total Protein 6.4 6.0 - 8.0 g/dL 04/25/2024 6:59 AM EST [facility] Albumin 3.2(L) 3.5 - 5.2 g/dL 04/25/2024 6:59 AM EST [facility] Globulin, Total 3.2 2.1 - 4.2 g/dL 04/25/2024 6:59 AM EST [facility] Bilirubin, Total 3.0(H) 0.2 - 1.2 mg/dL 04/25/2024 6:59 AM EST [facility] Bilirubin, Direct 0.9(H) <=0.4 mg/dL 04/25/2024 6:59 AM EST [facility] Alkaline Phosphatase 92 35 - 129 U/L 04/25/2024 6:59 AM EST [facility] AST 39 10 - 40 U/L 04/25/2024 6:59 AM EST [facility] ALT 24 10 - 40 U/L 04/25/2024 6:59 AM EST [facility] Bilirubin, Indirect 2.10(H) <=0.70 mg/dL 04/25/2024 6:59 AM EST [facility] A/G Ratio 1.0(L) 1.5 - 3.0 04/25/2024 6:59 AM EST [facility] Blood Structure of peripheral vein / Unknown Venipuncture / Unknown 04/25/2024 6:09 AM EST 04/25/2024 6:28 AM EST us Rachel Murray MD LAB BLOOD ORDERABLES Final Resul t [facility] [address] [place] [address], * (ABNORMAL) Protime-INR (04/25/2024 6:09 AM EST) PT 17.1(H) 9.6 - 12.4 Seconds 04/25/2024 6:45 AM EST [facility] INR 1.6 0.9 - 1.1 04/25/2024 6:45 AM EST [facility] Comment:The optimal therapeu tic INR range for patients treated with Vitamin K antagonists (VKAS, e.g., Warfarin) is 2.0 to 3.5. Discuss the desired range with your doctor/care team. Blood Structure of peripheral vein / Unknown Venipuncture / Unknown 04/25/2024 6:09 AM EST 04/25/2024 6:28 AM EST us Rachel Murray MD LAB BLOOD ORDERABLES Final Resul t [facility] [address] [place] [address], [place] * (ABNORMAL) CBC Auto Differential (04/25/2024 6:09 AM EST) WBC 14.1(H) 3.8 - 10.8 10*3/uL 04/25/2024 6:38 AM EST [facility] RBC 4.16(L) 4.20 - 5.80 10*6/uL 04/25/2024 6:38 AM EST [facility] Hemoglobin 13.1(L) 13.2 - 17.1 g/dL 04/25/2024 6:38 AM EST [facility] Hematocrit 38.7 38.5 - 50.0 % 04/25/2024 6:38 AM EST [facility] MCV 93.0 80.0 - 100.0 fL 04/25/2024 6:38 AM EST [facility] MCH 31.5 27.0 - 33.0 pg 04/25/2024 6:38 AM EST [facility] MCHC 33.9 32.0 - 36.0 g/dL 04/25/2024 6:38 AM EST [facility] RDW 15.9(H) 11.0 - 15.0 % 04/25/2024 6:38 AM EST [facility] Platelets 219 140 - 400 10*3/uL 04/25/2024 6:38 AM EST [facility] MPV 10.2 7.5 - 12.5 fL 04/25/2024 6:38 AM EST [facility] Neutrophil % 76.5 % 04/25/2024 6:38 AM EST [facility] Immature Grans % 0.5 0.0 - 0.9 % 04/25/2024 6:38 AM EST [facility] Lymphocyte % 9.0 % 04/25/2024 6:38 AM EST [facility] Monocyte % 12.9 % 04/25/2024 6:38 AM EST [facility] Eosinophil % 0.3 % 04/25/2024 6:38 AM EST [facility] Basophil % 0.8 % 04/25/2024 6:38 AM EST [facility] Neutrophil # 10.77(H) 1.50 - 7.80 10*3/uL 04/25/2024 6:38 AM EST [facility] Immature Grans # 0.07(H) <=0.03 10*3/uL 04/25/2024 6:38 AM EST [facility] Lymphocyte # 1.30 0.85 - 3.90 10*3/uL 04/25/2024 6:38 AM EST [facility] Monocyte # 1.80(H) 0.20 - 0.95 10*3/uL 04/25/2024 6:38 AM EST [facility] Eosinophil # <0.03 0.02 - 0.50 10*3/uL 04/25/2024 6:38 AM EST [facility] Basophil # 0.10 0.00 - 0.20 10*3/uL 04/25/2024 6:38 AM EST [facility] nRBC % 0.0 /100 WBCs 04/25/2024 6:38 AM EST [facility] nRBC # <0.01 <0.01 10*3/uL 04/25/2024 6:38 AM EST [facility] Blood Structure of peripheral vein / Unknown Venipuncture / Unknown 04/25/2024 6:09 AM EST 04/25/2024 6:28 AM EST Rachel Murray MD LAB BLOOD ORDERABLES Final Resul t Performing Organization Address City/[facility]/ZIP Co de Phone Number [facility] [address] [place] [address], * Magnesium (04/25/2024 6:09 AM EST) MG 2.0 1.6 - 2.4 mg/dL 04/25/2024 6:59 AM EST [facility] Blood Structure of peripheral vein / Unknown Venipuncture / Unknown 04/25/2024 6:09 AM EST 04/25/2024 6:28 AM EST Rachel Murray MD LAB BLOOD ORDERABLES Final Resul t Performing Organization Address [facility] Co de Phone Number [facility] [address] [place] [address], * (ABNORMAL) Basic Metabolic Panel (04/25/2024 6:09 AM EST) NA 130(L) 135 - 145 mmol/L 04/25/2024 6:59 AM EST [facility] K 4.2 3.5 - 5.3 mmol/L 04/25/2024 6:59 AM EST [facility] Cl 100 98 - 107 mmol/L 04/25/2024 6:59 AM EST [facility] CO2 17(L) 22 - 32 mmol/L 04/25/2024 6:59 AM EST [facility] BUN 24(H) 7 - 23 mg/dL 04/25/2024 6:59 AM EST [facility] Creatinine 1.05 0.60 - 1.30 mg/dL 04/25/2024 6:59 AM EST [facility] Glucose 132(H) 65 - 99 mg/dL 04/25/2024 6:59 AM EST [employer] [facility] Calcium 8.6 8.6 - 10.5 mg/dL 04/25/2024 6:59 AM EST [facility] Anion Gap 13 5 - 15 04/25/2024 6:59 AM EST [facility] eGFR 79 >=60 mL/min/1. 73m2 04/25/2024 6:59 AM EST [facility] Comment:The estimated glomer ular filtration rate (eGFR) is calculated using a new formula developed by the NKF-ASN task force to eliminate race-based correction factors. The new formula uses serum/plasma creatinine, age, and gender to determine eGFR. A value below 60mls/min might indicate kidney disease and will be flagged. For additional information, see Gastelum et al, Am J Kidney Dis. 2021;79(2):268- 288, A Unifying Approach for GFR estimation: Recommendations of the NKF-ASN Task Force on Reassessing the Inclusion of Race in Diagnosing Kidney Disease . Blood Structure of peripheral vein / Unknown Venipuncture / Unknown 04/25/2024 6:09 AM EST 04/25/2024 6:28 AM EST Rachel Murray MD LAB BLOOD ORDERABLES Final Resul t [facility] Organization Address City/State/ZIP Co de Phone Number [facility] [address] [place] [id number], * (ABNORMAL) Lactic Acid, Plasma (04/24/2024 11:39 PM EST) Lactic Acid 2.4(H) 0.5 - 1.9 mmol/L 04/25/2024 12:48 AM EST [facility] Comment: Sepsis Screening: Initial Lactate Level >2.0 mmol/L - Repeat Lactate Level within 3 hours. Initial Lactate Level >4.0 mmol/L - Repeat Lactate Level within 3 hours, Initiate Septic Shock Protocol. Blood Structure of peripheral vein / Unknown Venipuncture / Unknown 04/24/2024 11:39 PM EST 04/25/2024 12:13 AM EST us Natalio Lara MD LAB BLOOD ORDERABLES Final Re sult [facility] [address] [place] [address], [place] * X-Ray Chest 1 View (04/24/2024 11:12 PM EST) Anatomical Region Laterality Modality Body Computed Radiogr aphy 04/26/2024 3:31 PM EST Impressions 04/26/2024 3:32 PM EST Interval onset dense consolidation collapse and effusion at the left lung base. High diaphragms and low lung volumes otherwise as before. Heart size remains top normal. If this radiology report contains a blank impression section, it is an incomplete radiology report. ??Please contact the interpreting radiologist or applicable radiology division as soon as possible to obtain the completed interpretation. ? Workstation ID: [id number] Narrative 04/26/2024 3:32 PM EST COMPARISON: ??04/11/2024 FINDINGS AND Resulting Agency Comment [id number] Procedure Note Jeyson Silva MD - 04/26/2024 COMPARISON: 04/11/2024 FINDINGS AND IMPRESSION: Interval onset dense consolidation collapse and effusion at the left lungbase. High diaphragms and low lung volumes otherwise as before. Heart sizeremains top normal. If this radiology report contains a blank impression section, it is anincomplete radiology report. Please contact the interpreting radiologistor applicable radiology division as soon as possible to obtain thecompleted interpretation. Workstation ID: [id number] Natalio Lara MD IMG XR PROCEDURES Final Resul t * (ABNORMAL) Lactic Acid, Plasma (04/24/2024 9:18 PM EST) Lactic Acid 3.3(H) 0.5 - 1.9 mmol/L 04/24/2024 10:13 PM EST [facility] Comment: Sepsis Screening: Initial Lactate Level >2.0 mmol/L - Repeat Lactate Level within 3 hours. Initial Lactate Level >4.0 mmol/L - Repeat Lactate Level within 3 hours, Initiate Septic Shock Protocol. Blood Structure of peripheral vein / Unknown Venipuncture / Unknown 04/24/2024 9:18 PM EST 04/24/2024 9:46 PM EST Natalio Lara MD LAB BLOOD ORDERABLES Final Re sult Performing Organization Address [facility] Co de Phone Number [facility] [address] [place] [address], * Blood Culture (04/24/2024 6:13 PM EST) Culture No growth after 5 days 04/29/2024 10:25 PM EST [facility] Blood Structure of peripheral vein / Unknown Venipuncture / Unknown 04/24/2024 6:13 PM EST 04/24/2024 6:35 PM EST Narrative [employer] [facility] - 04/29/2024 10:25 PM EST [facility] Received Date: MICRO NUMBER: [id number] SPECIMEN QUALITY: Suboptimal SOURCE: BLOOD VENOUS, PERIPHERAL STATUS: FINAL COMMENT: Aerobic and anaerobic bottle received. Inspection of blood culture bottles indicates that an inadequate volume of blood may have been collected for the detection of sepsis. Dana Samuels MD LAB MICROBIOLOGY - GENERAL ORDERABLES Final Result Performing Organization Address [facility] Co de Phone Number [facility] [address] [facility] 3rd [address], [place] [address], [place] [phone] [employer] [facility] [address] [facility] [address], [place] [address], [place] [phone] * Blood Culture (04/24/2024 6:13 PM EST) Culture No growth after 5 days 04/29/2024 10:19 PM EST [facility] Blood Structure of peripheral vein / Unknown Venipuncture / Unknown 04/24/2024 6:13 PM EST 04/24/2024 6:35 PM EST Narrative [facility] - 04/29/2024 10:19 PM EST [facility] Received Date: MICRO NUMBER: [id number] SPECIMEN QUALITY: Suboptimal SOURCE: BLOOD VENOUS, PERIPHERAL STATUS: FINAL COMMENT: Aerobic and anaerobic bottle received. Inspection of blood culture bottles indicates that an inadequate volume of blood may have been collected for the detection of sepsis. Dana Samuels MD LAB MICROBIOLOGY - GENERAL ORDERABLES Final Result [facility] [address] [facility] [address], [place] [address], [place] [phone] [employer] [facility] [address] [facility] [address], [place] [address], documented in this encounter Visit Diagnoses Diagnosis SBP (spontaneous bacterial peritonitis) (HCC)- Primary Spontaneous bacterial peritonitis Spontaneous bacterial peritonitis (HCC) Spontaneous bacterial peritonitis Cholecystitis Cholecystitis, unspecified Decompensated cirrhosis (HCC) Decompensated cirrhosis (HCC) Moderate protein-calorie malnutrition (CMS/HCC) Hyperlipidemia Other and unspecified hyperlipidemia Sepsis (HCC) Hyponatremia Hyposmolality and/or hyponatremia Encounter for removal of biliary stent documented in this encounter Admitting Diagnoses Diagnosis SBP (spontaneous bacterial peritonitis) (HCC) Spontaneous bacterial peritonitis documented in this encounter Administered Medications Inactive Administered Medications - up to 3 most recent administrations Medication Order MAR Action Action Date Dose Rate Site acetaminophen (TYLENOL) tablet 650 mg 650 mg, oral, Every 4 hours PRN, Mild pain or 1-3 (on the numeric pain scale), Moderate pain or 4-6 (on the numeric pain scale), Severe pain or 7-10 (on the numeric pain scale), Starting on Shirin 04/24/24 at 2046, Until 05/03/24 at 1854, To be given in conjunction with other pain medications if ordered as part of multi-modal therapy Given 05/03/2024 1:33 PM EST 650 mg Given 05/03/2024 3:50 AM EST 650 mg Given 05/01/2024 5:40 PM EST 650 mg albumin, human 25% IVPB 12.5 g 12.5 g, intravenous, Once, On 04/25/24 at 1145, 1 dose, 12.5 g of total dose 137.5 g. Bottle #1 (of 11) Given 04/25/2024 12:35 PM EST 12.5 g albumin, human 25% IVPB 12.5 g 12.5 g, intravenous, Once, On Sun04/25/24 at 1200, 1 dose, 12.5 g of total dose 137.5 g. Bottle #2 (of 11) Given 04/25/2024 12:35 PM EST 12.5 g albumin, human 25% IVPB 12.5 g 12.5 g, intravenous, Once, On Sun04/25/24 at 1215, 1 dose, 12.5 g of total dose 137.5 g. Bottle #3 (of 11) Given 04/25/2024 12:55 PM EST 12.5 g albumin, human 25% IVPB 12.5 g 12.5 g, intravenous, Once, On Sun04/25/24 at 1230, 1 dose, 12.5 g of total dose 137.5 g. Bottle #4 (of 11) Given 04/25/2024 1:11 PM EST 12.5 g albumin, human 25% IVPB 12.5 g 12.5 g, intravenous, Once, On Sun04/25/24 at 1245, 1 dose, 12.5 g of total dose 137.5 g. Bottle #5 (of 11) Given 04/25/2024 2:12 PM EST 12.5 g albumin, human 25% IVPB 12.5 g 12.5 g, intravenous, Once, On Sun04/25/24 at 1300, 1 dose, 12.5 g of total dose 137.5 g. Bottle #6 (of 11) Given 04/25/2024 2:30 PM EST 12.5 g albumin, human 25% IVPB 12.5 g 12.5 g, intravenous, Once, On Sun04/25/24 at 1315, 1 dose, 12.5 g of total dose 137.5 g. Bottle #7 (of 11) Given 04/25/2024 2:44 PM EST 12.5 g albumin, human 25% IVPB 12.5 g 12.5 g, intravenous, Once, On Sun04/25/24 at 1330, 1 dose, 12.5 g of total dose 137.5 g. Bottle #8 (of 11) Given 04/25/2024 3:01 PM EST 12.5 g albumin, human 25% IVPB 12.5 g 12.5 g, intravenous, Once, On Sun04/25/24 at 1345, 1 dose, 12.5 g of total dose 137.5 g. Bottle #9 (of 11) Given 04/25/2024 3:19 PM EST 12.5 g albumin, human 25% IVPB 12.5 g 12.5 g, intravenous, Once, On Sun04/25/24 at 1400, 1 dose, 12.5 g of total dose 137.5 g. Bottle #10 (of 11) Given 04/25/2024 3:48 PM EST 12.5 g albumin, human 25% IVPB 12.5 g 12.5 g, intravenous, Once, On Sun04/25/24 at 1415, 1 dose, 12.5 g of total dose 137.5 g. Bottle #11 (of 11) Given 04/25/2024 4:07 PM EST 12.5 g albumin, human 25% IVPB 12.5 g 12.5 g, intravenous, Once, On 04/26/24 at 1200, 1 dose, 12.5 g of total dose 87.5 g. Bottle #1 (of 7) Given 04/26/2024 10:41 AM EST 12.5 g albumin, human 25% IVPB 12.5 g 12.5 g, intravenous, Once, On 04/26/24 at 1215, 1 dose, 12.5 g of total dose 87.5 g. Bottle #2 (of 7) Given 04/26/2024 11:12 AM EST 12.5 g albumin, human 25% IVPB 12.5 g 12.5 g, intravenous, Once, On 04/26/24 at 1230, 1 dose, 12.5 g of total dose 87.5 g. Bottle #3 (of 7) Given 04/26/2024 12:30 PM EST 12.5 g albumin, human 25% IVPB 12.5 g 12.5 g, intravenous, Once, On 04/26/24 at 1245, 1 dose, 12.5 g of total dose 87.5 g. Bottle #4 (of 7) Given 04/26/2024 11:50 AM EST 12.5 g albumin, human 25% IVPB 12.5 g 12.5 g, intravenous, Once, On 04/26/24 at 1300, 1 dose, 12.5 g of total dose 87.5 g. Bottle #5 (of 7) Given 04/26/2024 12:11 PM EST 12.5 g albumin, human 25% IVPB 12.5 g 12.5 g, intravenous, Once, On 04/26/24 at 1315, 1 dose, 12.5 g of total dose 87.5 g. Bottle #6 (of 7) Given 04/26/2024 12:36 PM EST 12.5 g albumin, human 25% IVPB 12.5 g 12.5 g, intravenous, Once, On 04/26/24 at 1330, 1 dose, 12.5 g of total dose 87.5 g. Bottle #7 (of 7) Given 04/26/2024 12:54 PM EST 12.5 g cefTRIAXone (ROCEPHIN) 2 g in 0.9% NaCl 100 mL Mini-Bag Plus 2 g, intravenous, at 200 mL/hr, Administer over 30 Minutes, Every 24 hours scheduled, First dose on 04/28/24 at 1105, 6 doses, Last dose on 05/03/24 at 0900, Mini-Bag Plus, Reason for Therapy: Bacterial Infection Documented, Indication: Intra-abdominal New Bag/Syringe 05/03/2024 9:07 AM EST 2 g 200 mL/hr New Bag/Syringe 05/02/2024 8:11 AM EST 2 g 200 mL/h r New Bag/Syringe 05/01/2024 8:28 AM EST 2 g 200 mL/h r cefTRIAXone (ROCEPHIN) injection 1 g 1 g, intravenous, Administer over 3 Minutes, Every 24 hours scheduled, First dose (after last modification) on Shirin 04/24/24 at 1815, 5 doses, Last dose on 04/28/24 at 0900, Dilute 1 g with 10 mL of sterile water for injection. Administer over 3-5 minutes., Reason for Therapy: Bacterial Infection Documented, Indication: Other, Specify: SBP Given 04/24/2024 6:14 PM EST 1 g diphenhydrAMINE (BENADRYL) injection 12.5 mg 12.5 mg, intravenous, Every 20 min PRN, nausea, vomiting, hold if somnolent, Starting on Sun05/02/24 at 1640, 2 doses, Until Sun05/02/24 at 1840, PACU (only), If patient continues to have nausea/vomiting sooner than 8 hours after the previous anti-emetic dose, do not repeat the same anti-emetic(s). Instead, administer a different anti-emetic from selection., Order of administration of antiemetics: Second Given 05/02/2024 5:20 PM EST 12.5 mg enoxaparin (LOVENOX) subcutaneous injection 40 mg 40 mg, subcutaneous, Daily, First dose on Shirin 04/24/24 at 2050, Until Discontinued, On hold since Sun04/28/2024 at 1557 until manually unheld Given 04/27/2024 5:57 PM EST 40 mg Left Lower Abdomen Given 04/26/2024 4:35 PM EST 40 mg Le ft Lower Abdomen Given 04/25/2024 6:21 PM EST 40 mg Ri ght Lower Abdomen fentaNYL (PF) injection 50 mcg 50 mcg, intravenous, Every 5 min PRN, Severe pain or 7-10 (on the numeric pain scale), Starting on Sun05/02/24 at 1640, Until Sun05/02/24 at 1840, PACU (only), Call Anesthesiologist if the max cumulative dose is given or the patient's pain is uncontrolled. Assess pain, sedation, and respiratory rate prior to each opioid administration., If RR is 10 or more, give up to: 200 mcg Given 05/02/2024 5:28 PM EST 50 mcg furosemide (LASIX) tablet 20 mg 20 mg, oral, Daily, First dose on Sun04/28/24 at 1105, Until Discontinued Given 04/28/2024 11:53 AM EST 20 mg furosemide (LASIX) tablet 40 mg 40 mg, oral, Daily, First dose on Sun04/30/24 at 0900, Until Discontinued Given 05/03/2024 9:06 AM EST 40 mg Given 05/01/2024 8:28 AM EST 40 mg Given 04/30/2024 9:13 AM EST 40 mg haloperidol lactate (HALDOL) injection 1.25 mg 1.25 mg, intravenous, Every 20 min PRN, nausea, vomiting, hold if somnolent, Starting on Sun05/02/24 at 1640, 2 doses, Until Sun05/02/24 at 1840, PACU (only), If patient continues to have nausea/vomiting sooner than 8 hours after the previous antiemetic dose, do not repeat the same antiemetic(s). Instead, administer a different antiemetic from selection. QTc monitoring required for patients receiving doses greater than 35 mg/day., Order of administration of antiemetics: First Given 05/02/2024 4:57 PM EST 1.25 mg iohexoL (OMNIPAQUE) 350 mg iodine/mL contrast 10-200 mL 10-200 mL, intravenous, Once, On Sun04/25/24 at 1335, 1 dose, Imaging Protocol Orders Given 04/25/2024 1:30 PM EST 100 mL lactulose 20 gram/30 mL oral solution 20 g 20 g, oral, 3 times daily, First dose on Shirin 04/24/24 at 2245, Until Discontinued, Titrate for 3-5 BM daily Given 05/03/2024 9:06 AM EST 20 g Given 05/01/2024 8:28 AM EST 20 g Given 04/30/2024 1:37 PM EST 20 g magnesium sulfate 2 g in SWFI 50 mL IVPB premix 2 g, intravenous, at 25 mL/hr, Administer over 2 Hours, Once, On 05/03/24 at 0815, 1 dose, Total dose = 2 g New Bag/Syringe 05/03/2024 9:07 AM EST 2 g 25 mL/hr midodrine (PROAMATINE) tablet 15 mg 15 mg, oral, Every 8 hours scheduled, First dose on Shirin 04/24/24 at 2245, 255 doses, Last dose on Sun07/18/24 at 1400 Given 05/03/2024 12:37 PM EST 15 mg Given 05/03/2024 5:13 AM EST 15 mg Given 05/02/2024 8:42 PM EST 15 mg naloxone (NARCAN) injection 0.4 mg 0.4 mg, intravenous, Every 2 hour PRN, opioid reversal, respiratory depression, Starting on Sun04/28/24 at 0500, Until 05/03/24 at 1854, Complete opioid reversal for respiratory rate less than 10 (POSS greater than 2 or RASS less than 0). Notify LIP if naloxone is administered to evaluate the patient to determine if additional naloxone doses are needed and to reevaluate the patient's opioid orders. naloxone 0.04 mg injection 0.04 mg, intravenous, Every 3 minutes as needed, opioid reversal, respiratory depression, Starting on Sun04/28/24 at 0500, Until 05/03/24 at 1854, Partial opioid reversal for respiratory rate less than 10 (POSS greater than 2 or RASS less than 0). Notify LIP if naloxone is administered to evaluate the patient to determine if additional naloxone doses are needed and to reevaluate the patient's opioid orders. Draw up 1 mL from 0.4 mg/mL injection and add 9 mL NS for a final concentration of 0.04 mg/mL. oxyCODONE IR (ROXICODONE) tablet 2.5 mg 2.5 mg, oral, Once, On Sun04/29/24 at 2115, 1 dose, Assess pain, sedation, and respiratory rate prior to each opioid administration. Given 04/30/2024 12:26 AM EST 2.5 mg piperacillin-tazobactam (ZOSYN) 3.375 g in 0.9% NaCl 100 mL Mini-Bag Plus 3.375 g, intravenous, at 25 mL/hr, Administer over 4 Hours, Every 8 hours scheduled, First dose on Shirin 04/24/24 at 2235, 15 doses, Last dose on Sun04/29/24 at 1800, Infuse over 4 hours. Mini-Bag Plus, Reason for Therapy: Bacterial Infection Documented, Indication: Intra-abdominal New Bag/Syringe 04/28/2024 10:35 AM EST 3.375 g 25 mL/hr New Bag/Syringe 04/28/2024 1:49 AM EST 3.375 g 25 mL/hr New Bag/Syringe 04/27/2024 5:57 PM EST 3.375 g 25 mL/hr potassium chloride ER (KLOR-CON M-10) tablet 40 mEq 40 mEq, oral, Once, On Sun05/02/24 at 0730, 1 dose, Do not crush. Given 05/02/2024 8:11 AM EST 40 mEq potassium chloride ER (KLOR-CON M-10) tablet 40 mEq 40 mEq, oral, Once, On 05/03/24 at 0815, 1 dose, Do not crush. Given 05/03/2024 9:06 AM EST 40 mEq rifAXIMin (XIFAXAN) tablet 550 mg 550 mg, oral, Every 12 hours scheduled, First dose on Sun04/24/24 at 2245, 730 doses, Last dose on Sun04/24/25 at 1200 Given 05/03/2024 12:37 PM EST 550 mg Given 05/03/2024 12:20 AM EST 550 mg Given 05/01/2024 10:31 PM EST 550 mg rifAXIMin (XIFAXAN) tablet 550 mg 550 mg, oral, Once, On Sun04/25/24 at 1200, 1 dose Given 04/25/2024 11:55 AM EST 550 mg senna (SENOKOT) tablet 17.2 mg 17.2 mg, oral, Nightly PRN, constipation, no bowel movement x 24 hours, Starting on Sun04/24/24 at 2046, Until 05/03/24 at 1854, . sodium chloride 0.9% flush 2.5-10 mL 2.5-10 mL, intravenous, See admin instructions, Starting on Sun04/24/24 at 204, Until 05/03/24 at 1854, Flush each lumen with a pulsatile motion with a minimum of 2.5 mL before and after use. Please note which lumen(s) have been flushed in comments section. sodium chloride 0.9% flush 2.5-10 mL 2.5-10 mL, intravenous, Every 12 hours scheduled, First dose on Sun04/24/24 at 2100, Until Discontinued, Flush each lumen with a pulsatile motion with a minimum of 2.5 mL every 12 hours. Please note which lumen(s) have been flushed in comments section. Given 05/03/2024 9:07 AM EST 10 mL Given 05/02/2024 8:45 PM EST 10 mL Given 05/02/2024 8:12 AM EST 10 mL sodium chloride 0.9% flush 3-10 mL 3-10 mL, intravenous, PRN Flush, line care, Flush peripheral line with a minimum of 3 mL, before and after use or every 12 hours., Starting on Sun04/29/24 at 1332, Until 05/03/24 at 1854 spironolactone (ALDACTONE) tablet 50 mg 50 mg, oral, Daily, First dose on Sun04/28/24 at 1105, Until Discontinued, Hazardous Medication. Use PPE when handling. Do not crush. Given 04/28/2024 11:53 AM EST 50 mg vancomycin (VANCOCIN) 1,750 mg in 0.9% NaCl 500 mL IVPB 1,750 mg, intravenous, at 268 mL/hr, Administer over 120 Minutes, Every 12 hours scheduled, First dose (after last modification) on 04/26/24 at 2100, 6 doses, Last dose on Sun04/29/24 at 0900, Reason for Therapy: Bacterial Infection Documented, Indication: Intra-abdominal, Trough goal (mcg/mL): 15-20 New Bag/Syringe 04/27/2024 10:57 AM EST 1,750 mg 268 mL/hr New Bag/Syringe 04/26/2024 8:43 PM EST 1,750 mg 268 mL/h r vancomycin 1,500 mg in 0.9% NaCl 500 mL IVPB premix 1,500 mg (rounded from 1,414.5 mg = 15 mg/kg ? 94.3 kg), intravenous, at 333 mL/hr, Administer over 90 Minutes, Every 12 hours scheduled, First dose on Shirin 04/24/24 at 2240, 10 doses, Last dose on Sun04/29/24 at 0900, Premix, Reason for Therapy: Bacterial Infection Documented, Indication: Intra-abdominal, Trough goal (mcg/mL): 10-15 New Bag/Syringe 04/26/2024 8:12 AM EST 1,500 mg 333 mL/hr New Bag/Syringe 04/25/2024 10:12 PM EST 1,500 mg 333 mL/ hr New Bag/Syringe 04/25/2024 8:06 AM EST 1,500 mg 333 mL/h r documented in this encounter Active and Recently Administered Medications Times are shown in EST. Scheduled Medication Order 05/01/2024 05/02/2024 05/03/2024 cefTRIAXone (ROCEPHIN) 2 g in 0.9% NaCl 100 mL Mini-Bag Plus (COMPLETED) 2 g, intravenous, at 200 mL/hr, Administer over 30 Minutes, Every 24 hours scheduled, First dose on Sun04/28/24 at 1105, 6 doses, Last dose on Sun05/03/24 at 0900, Mini-Bag Plus, Reason for Therapy: Bacterial Infection Documented, Indication: Intra-abdominal 0828 (New Bag/Syringe - Provider: Desirae Olea RN) 0811 (New Bag/Syringe - Provider: Amy Lipscomb RN)0900 (Stopped - Provider: Alem Plascencia RN)1209 (MAY Hold - Provider: Automatic Transfer Provider - Reason: Procedure/Surgery)184 0 (MAY Unhold - Provider: Automatic Transfer Provider) 0907 (New Bag/Syringe - Provider: Sarah Adams, RN) enoxaparin (LOVENOX) subcutaneous injection 40 mg 40 mg, subcutaneous, Daily, First dose on Sun04/24/24 at 2050, Until Discontinued, On hold since Sun04/28/2024 at 1557 until manually unheld 1700 (Dose Auto Held - Provider: Damaris Enriquez MD) 1700 (Dose Auto Held - Provider: Damaris Enriquez MD) 1854 (Unheld by Provider - Provider: Automatic Discharge Provider) furosemide (LASIX) tablet 40 mg 40 mg, oral, Daily, First dose on Sun04/30/24 at 0900, Until Discontinued 0828 (Given - Provider: Desirae Olea RN) 0900 (Not Given - Provider: Amy Lipscomb RN - Reason: Patient/family refused)1209 (MAY Hold - Provider: Automatic Transfer Provider - Reason: Procedure/Surgery)183 2 (MAY Unhold - Provider: Amy Lipscomb RN) 0906 (Given - Provider: Sarah Adams RN) lactulose 20 gram/30 mL oral solution 20 g 20 g, oral, 3 times daily, First dose on Sun04/24/24 at 2245, Until Discontinued, Titrate for 3-5 BM daily 0828 (Given - Provider: Desirae Olea RN - Comment: Pt took 3/4 of dose, MD aware)1245 (Not Given - Provider: Desirae Olea RN - Reason: Patient/family refused)2019 (Not Given - Provider: Alem Brambila RN - Reason: Patient/family refused - Comment: patient also verbalize bm >3 today) 0900 (Not Given - Provider: Amy Lipscomb RN - Reason: Patient/family refused)1200 (Not Given - Provider: Amy Lipscomb RN - Reason: Patient not available)1208 (MAY Hold - Provider: Automatic Transfer Provider - Reason: Procedure/Surgery)183 2 (MAR Unhold - Provider: Amy Lipscomb RN)2041 (Not Given - Provider: Diana White RN - Reason: Patient/family refused) 0906 (Given - Provider: Sarah Adams RN)1237 (Not Given - Provider: Sarah Adams RN - Reason: Patient/family refused) magnesium sulfate 2 g in SWFI 50 mL IVPB premix (COMPLETED) 2 g, intravenous, at 25 mL/hr, Administer over 2 Hours, Once, On 05/03/24 at 0815, 1 dose, Total dose = 2 g 0907 (New Bag/Syringe - Provider: Sarah Adams RN) midodrine (PROAMATINE) tablet 15 mg 15 mg, oral, Every 8 hours scheduled, First dose on Shirin 04/24/24 at 2245, 255 doses, Last dose on Sun07/18/24 at 1400 0534 (Given - Provider: Heather Hernandez RN)1245 (Given - Provider: Desirae Olea RN)2031 (Given - Provider: Alem Brambila RN) 0559 (Given - Provider: Alem Brambila RN)1208 (MAR Hold - Provider: Automatic Transfer Provider - Reason: Procedure/Surgery)140 0 (Dose Auto Held - Provider: Automatic Transfer Provider)1832 (MAR Unhold - Provider: Amy Lipscomb RN)204 (Given - Provider: Diana White RN) 0513 (Given - Provider: Diana White RN)1237 (Given - Provider: Sarah Adams RN) potassium chloride ER (KLOR-CON M-10) tablet 40 mEq (COMPLETED) 40 mEq, oral, Once, On Sun05/02/24 at 0730, 1 dose, Do not crush. 0811 (Given - Provider: Amy Lipscomb RN) potassium chloride ER (KLOR-CON M-10) tablet 40 mEq (COMPLETED) 40 mEq, oral, Once, On 05/03/24 at 0815, 1 dose, Do not crush. 0906 (Given - Provider: Sarah Adams, LATOSHA) rifAXIMin (XIFAXAN) tablet 550 mg 550 mg, oral, Every 12 hours scheduled, First dose on Shirin 04/24/24 at 2245, 730 doses, Last dose on Sun04/24/25 at 1200 0000 (Not Given - Provider: Heather Hernandez RN - Reason: Patient/family refused)1245 (Given - Provider: Desirae Olea RN)2231 (Given - Provider: Alem Brambila RN) 1200 (Not Given - Provider: Amy Lipscomb RN - Reason: Procedure/Surgery)120 9 (MAY Hold - Provider: Automatic Transfer Provider - Reason: Procedure/Surgery)183 2 (MAY Unhold - Provider: Amy Lipscomb RN) 0020 (Given - Provider: Diana White, RN)1237 (Given - Provider: Sarah Adams, LATOSHA) sodium chloride 0.9% flush 2.5-10 mL(Linked Group 1) 2.5-10 mL, intravenous, See admin instructions, Starting on Shirin 04/24/24 at 2044, Until 05/03/24 at 1854, Flush each lumen with a pulsatile motion with a minimum of 2.5 mL before and after use. Please note which lumen(s) have been flushed in comments section. 1208 (MAY Hold - Provider: Automatic Transfer Provider - Reason: Procedure/Surgery)183 2 (MAY Unhold - Provider: Amy Lipscomb RN) sodium chloride 0.9% flush 2.5-10 mL(Linked Group 1) 2.5-10 mL, intravenous, Every 12 hours scheduled, First dose on Shirin 04/24/24 at 2100, Until Discontinued, Flush each lumen with a pulsatile motion with a minimum of 2.5 mL every 12 hours. Please note which lumen(s) have been flushed in comments section. 0828 (Given - Provider: Desirae Olea, LATOSHA)2019 (Given - Provider: Alem Brambila, LATOSHA) 0812 (Given - Provider: Amy Lipscomb RN)1208 (MAY Hold - Provider: Automatic Transfer Provider - Reason: Procedure/Surgery)183 2 (MAY Unhold - Provider: Amy Lipscomb RN)2045 (Given - Provider: Diana Whtie RN) 0907 (Given - Provider: Sarah Adams, LATOSHA) PRN Medication Order 05/01/2024 05/02/2024 05/03/2024 acetaminophen (TYLENOL) tablet 650 mg 650 mg, oral, Every 4 hours PRN, Mild pain or 1-3 (on the numeric pain scale), Moderate pain or 4-6 (on the numeric pain scale), Severe pain or 7-10 (on the numeric pain scale), Starting on Shirin 04/24/24 at 2046, Until 05/03/24 at 1854, To be given in conjunction with other pain medications if ordered as part of multi-modal therapy 1245 (Given - Provider: Desirae Olea RN)1740 (Given - Provider: Desirae Olea, LATOSHA) 1208 (MAY Hold - Provider: Automatic Transfer Provider - Reason: Procedure/Surgery)18 32 (MAY Unhold - Provider: Amy Lipscomb RN) 0350 (Given - Provider: Diana White RN)1333 (Given - Provider: Sarah Adams RN) diphenhydrAMINE (BENADRYL) injection 12.5 mg (CANCELED) 12.5 mg, intravenous, Every 20 min PRN, nausea, vomiting, hold if somnolent, Starting on 05/02/24 at 1640, 2 doses, Until 05/02/24 at 1840, PACU (only), If patient continues to have nausea/vomiting sooner than 8 hours after the previous anti-emetic dose, do not repeat the same anti-emetic(s). Instead, administer a different anti-emetic from selection., Order of administration of antiemetics: Second 1719 (Given - Provider: Dana Cloud RN) fentaNYL (PF) injection 50 mcg (CANCELED)(Linked Group 2) 50 mcg, intravenous, Every 5 min PRN, Severe pain or 7-10 (on the numeric pain scale), Starting on 05/02/24 at 1640, Until 05/02/24 at 1840, PACU (only), Call Anesthesiologist if the max cumulative dose is given or the patient's pain is uncontrolled. Assess pain, sedation, and respiratory rate prior to each opioid administration., If RR is 10 or more, give up to: 200 mcg 1727 (Given - Provider: Dana Cloud RN) flumazeniL (ROMAZICON) injection 0.2 mg 0.2 mg, intravenous, Every 5 min PRN, Respiratory Distress or Over Sedation, Starting on Sun04/29/24 at 1824, 3 doses, Until 05/03/24 at 1854 1209 (MAY Hold - Provider: Automatic Transfer Provider - Reason: Procedure/Surgery)18 32 (MAY Unhold - Provider: Amy Lipscomb RN) haloperidol lactate (HALDOL) injection 1.25 mg (CANCELED) 1.25 mg, intravenous, Every 20 min PRN, nausea, vomiting, hold if somnolent, Starting on Sun05/02/24 at 1640, 2 doses, Until Sun05/02/24 at 1840, PACU (only), If patient continues to have nausea/vomiting sooner than 8 hours after the previous antiemetic dose, do not repeat the same antiemetic(s). Instead, administer a different antiemetic from selection. QTc monitoring required for patients receiving doses greater than 35 mg/day., Order of administration of antiemetics: First 1656 (Given - Provider: Dana Cloud RN) iohexoL (OMNIPAQUE) 300 mg iodine/mL injection (CANCELED) As needed, Starting on Sun05/02/24 at 1626, Until Sun05/02/24 at 1643, Intra-op 1626 (Given - Provider: Pedro Limon MD) naloxone (NARCAN) injection 0.4 mg 0.4 mg, intravenous, Every 2 hour PRN, opioid reversal, respiratory depression, Starting on Sun04/28/24 at 0500, Until 05/03/24 at 1854, Complete opioid reversal for respiratory rate less than 10 (POSS greater than 2 or RASS less than 0). Notify LIP if naloxone is administered to evaluate the patient to determine if additional naloxone doses are needed and to reevaluate the patient's opioid orders. 1209 (MAY Hold - Provider: Automatic Transfer Provider - Reason: Procedure/Surgery)18 32 (MAY Unhold - Provider: Amy Lipscomb RN) naloxone 0.04 mg injection 0.04 mg, intravenous, Every 3 minutes as needed, opioid reversal, respiratory depression, Starting on Sun04/28/24 at 0500, Until 05/03/24 at 1854, Partial opioid reversal for respiratory rate less than 10 (POSS greater than 2 or RASS less than 0). Notify LIP if naloxone is administered to evaluate the patient to determine if additional naloxone doses are needed and to reevaluate the patient's opioid orders. Draw up 1 mL from 0.4 mg/mL injection and add 9 mL NS for a final concentration of 0.04 mg/mL. 1209 ([facility] Hold - Provider: Automatic Transfer Provider - Reason: Procedure/Surgery)18 32 ([facility] Unhold - Provider: Amy Lipscomb RN) senna (SENOKOT) tablet 17.2 mg 17.2 mg, oral, Nightly PRN, constipation, no bowel movement x 24 hours, Starting on Shirin 04/24/24 at 2046, Until 05/03/24 at 1854, . 1208 ([facility] Hold - Provider: Automatic Transfer Provider - Reason: Procedure/Surgery)18 32 ([facility] Unhold - Provider: Amy iLpscomb RN) sodium chloride 0.9% flush 3-10 mL 3-10 mL, intravenous, PRN Flush, line care, Flush peripheral line with a minimum of 3 mL, before and after use or every 12 hours., Starting on Sun04/29/24 at 1332, Until 05/03/24 at 1854 1209 ([facility] Hold - Provider: Automatic Transfer Provider - Reason: Procedure/Surgery)18 32 ([facility] Unhold - Provider: Amy Lipscomb RN) Linked Groups Order Group 1: IV Peripheral Line Care (CANCELED) Until discontinued, Starting on Shirin 04/24/24 at 2045, Until Specified, Insert/Replace: 96 hours for non-flexion, sterile IVs, 48 hours for flexion IVs, and 24 hours for non-sterile field IVs, Blood Draw: With insertion only And sodium chloride 0.9% flush 2.5-10 mLJump to med 2.5-10 mL, intravenous, See admin instructions, Starting on Shirin 04/24/24 at 2044, Until 05/03/24 at 1854, Flush each lumen with a pulsatile motion with a minimum of 2.5 mL before and after use. Please note which lumen(s) have been flushed in comments section. And sodium chloride 0.9% flush 2.5-10 mLJump to med 2.5-10 mL, intravenous, Every 12 hours scheduled, First dose on Shirin 04/24/24 at 2100, Until Discontinued, Flush each lumen with a pulsatile motion with a minimum of 2.5 mL every 12 hours. Please note which lumen(s) have been flushed in comments section. Group 2: fentaNYL (PF) injection 12.5 mcg (CANCELED) 12.5 mcg, intravenous, Every 5 min PRN, Mild pain or 1-3 (on the numeric pain scale), Starting on Sun05/02/24 at 1640, Until Sun05/02/24 at 1840, PACU (only), Call Anesthesiologist if the max cumulative dose is given or the patient's pain is uncontrolled. Assess pain, sedation, and respiratory rate prior to each opioid administration., If RR is 10 or more, give up to: 200 mcg Or fentaNYL (PF) injection 25 mcg (CANCELED) 25 mcg, intravenous, Every 5 min PRN, Moderate pain or 4-6 (on the numeric pain scale), Starting on Sun05/02/24 at 1640, Until Sun05/02/24 at 1840, PACU (only), Call Anesthesiologist if the max cumulative dose is given or the patient's pain is uncontrolled. Assess pain, sedation, and respiratory rate prior to each opioid administration., If RR is 10 or more, give up to: 200 mcg Or fentaNYL (PF) injection 50 mcg (CANCELED)Jump to med 50 mcg, intravenous, Every 5 min PRN, Severe pain or 7-10 (on the numeric pain scale), Starting on Sun05/02/24 at 1640, Until Sun05/02/24 at 1840, PACU (only), Call Anesthesiologist if the max cumulative dose is given or the patient's pain is uncontrolled. Assess pain, sedation, and respiratory rate prior to each opioid administration., If RR is 10 or more, give up to: 200 mcg documented in this encounter Care Teams [employer] Relationship Specialty Start Date End Date Jade Harper [address] [place] [address] dr Charly Parks, MAGALIE [id number] PCP - General Internal Medicine 03/06/24 documented as of this encounter
--- OUTSIDE RECORDS SUMMARY | 2024-05-28 11:39 | XMS_ITS | Encounter Summary ---
Author Organization [facility] Address [address] [place] [address] Care Team Providers Care Confidential Secretary Name Role Phone Jade Harper Primary Care Provider [phone] Reason for Visit * Reason Onset Date Comments ABO Dual Validation 05/02/2024 Encounter Details Date Type Department Care Team (Late st Contact Info) Description 05/02/2024 Documentation [facility] Transplant Department [address] [place] [address] Alondra Aceves, LATOSHA ABO Dual Validation Social History Tobacco Use Types Packs/Day Years Used Date Smoking Tobacco: Never Smokeless Tobacco: Never Alcohol Use Standard Drinks/Week Comments Not Currently 8 (1 standard drink = 0.6 oz pur e alcohol) sober since 11/2023 [facility] Utilities Answer Date Recorded In the past 12 months has e [employer], gas, oil, or water [employer] threatened to shut off services in your [...] as of this encounter Progress Notes * Alondra Aceves RN - 05/02/2024 10:55 AM EST I have reviewed ABO results from two different dates and verified that they match. ABO More data may exist 04/11/2024 05/02/2024 TXP ABO ABO Blood Type B B Rh Type Positive Positive documented in this encounter Plan of Treatment Upcoming Encounters Date Type Department Care Team (Latest Contact Info) Description 5 10:30 AM EST Appointment [facility] Interventional Radiology [address] [place] [address] Mike Rey i, MD [address] [place] [phone] 5 10:30 AM EDT Appointment [facility] Interventional Radiology [address] [place] [address] Mike Rey i, MD [address] [place] [address] 5 2:00 PM EDT Pre-Admission Testing [facility] [address] [facility] [address] [place] [address] 5 10:00 AM EDT Appointment [facility] Interventional Radiology [address] [place] [address] Mike Rey i, MD [address] [place] [address] 5 10:30 AM EDT Appointment [facility] Interventional Radiology [address] [place] [address] Mike Rey i, MD [address] [place] [address] 5 9:00 AM EDT Pre-Admission Testing [facility] [address] [place] [address] 5 10:30 AM EDT Appointment [facility] Interventional Radiology [address] [place] [address] Mike Rey i, MD [address] [place] [address] 5 10:30 AM EDT Appointment [facility] Interventional Radiology [address] [place] [address] Mike Rey i, MD [address] [place] [address] 5 8:30 AM EDT Hospital Encounter [facility] Operating Room [address] [place] [address] Rachel Murray MD [address] [place] [address] 5 8:30 AM EDT - 5 9:30 AM EDT Surgery [facility] Operating Room [address] [place] [address] Rachel Murray MD [address] [place] [address] ENDOSCOPIC RETROGRADE CHOLANGIOPANCREATOGRAPHY WITH REMOVAL OF FOREIGN BODY(S)/STENT(S)/PANCREATIC DUCT(S) WITH POSSIBLE MODERATE SEDATION [08981 (CPT??)] 5 10:30 AM EDT Appointment [facility] Interventional Radiology [address] [place] [address] Mike Rey i, MD [address] [place] [address] 5 4:30 PM EDT Follow-Up [facility] [address] [place] [address] Mike Rey i, MD [address] [place] [address] 5 10:30 AM EDT Appointment [facility] Interventional Radiology [address] [place] [address] Mike Rey i, MD [address] [place] [address] 5 10:30 AM EDT Appointment [facility] Interventional Radiology [address] [place] [address] Mike Rey i, MD [address] [place] [address] 5 10:30 AM EDT Appointment [facility] Interventional Radiology [address] [place] [address] Mike Rey i, MD [address] [place] [address] 5 10:30 AM EDT Appointment [facility] Inter[facility]iology [address] [place] [address] Mike Rey i, MD [address] [place] [address] 5 10:30 AM EDT Appointment [facility] Inter[facility]iology [address] [place] [address] Mike Rey i, MD [address] [place] [address] 5 10:30 AM EDT Appointment [facility] Interventional Radiology [address] [place] [address] Mike Rey i, MD [address] [place] [address] 5 10:30 AM EDT Appointment [facility] Interventional Radiology [address] [place] [address] Mike Rey i, MD [address] [place] [address] 5 10:30 AM EDT Appointment [facility] Interventional Radiology [address] [place] [address] Mike Rey i, MD [address] [place] [address] 5 10:30 AM EDT Appointment [facility] Interventional Radiology [address] [place] [address] Mike Rey i, MD [address] [place] [address] 5 10:30 AM EDT Appointment [facility] Interventional Radiology [address] [place] [address] Mike Rey i, MD [address] [place] [address] 5 10:30 AM EDT Appointment [facility] Interventional Radiology [address] [place] [address] Mike Rey i, MD [address] [place] [address] Scheduled Procedures Name Priority Associated Diagnoses Date/Ti me ENDOSCOPIC RETROGRADE CHOLANGIOPANCREATOGRAPHY WITH REMOVAL OF FOREIGN BODY(S)/STENT(S)/PANCREATIC DUCT(S) WITH POSSIBLE MODERATE SEDATION Encounter for removal of biliary stent 07/04/2024 8:30 AM EDT LAPAROSCOPIC CHOLECYSTECTOMY Acute cholecystitis documented as of this encounter Visit Diagnoses Not on filedocumented in this encounter Care Teams Confidential Secretary Relationship Specialty Start Date End Date Jade Harper [address] [place] [address] [place] [address] PCP - General Internal Medicine 03/06/24 documented as of this encounter
--- OUTSIDE RECORDS SUMMARY | 2024-05-28 11:39 | XMS_ITS | Clinical Summary ---
Author Organization [facility] Address [address] [place] [address] Care Team Providers Care Face Man Name Role Phone Jade Harper Primary Care Provider [phone] Allergies No known active allergies Medications acetaminophen (TYLENOL) 500 mg tablet Take 500 mg by mouth every 6 hours as needed for pain. Active spironolacton e (ALDACTONE) 50 mg tablet Take 2 tablets (100 mg total) by mouth once a day. 60 tablet 2025 Active furosemide (LASIX) 20 mg tablet Take 2 tablets (40 mg total) by mouth once a day. 180 tablet 2025 Active rifAXIMin (XIFAXAN) 550 mg tablet Take 1 tablet (550 mg total) by mouth every 12 hours. 180 tablet 2025 Active lactulose 10 gram/15 mL solution Take 30 mL (20 g total) by mouth 3 times a day. 8100 mL 2025 Active ciprofloxacin (CIPRO) 500 mg tablet Take 1 tablet (500 mg total) by mouth every 24 hours. 90 tablet 025 2027 Active midodrine (PROAMATINE) 5 mg tablet Take 3 tablets (15 mg total) by mouth every 8 hours. 810 tablet 3 025 2025 Active sodium chloride 0.9 % syringe Use 1 syring (10ml) to fluch cholecystostomy tube up to 3 times a day. 600 mL 3 05/15/19 3:34 PM EST 025 Active polyethylene glycol 3350 (MIRALAX) 17 gram packet Take 1 packet (17 g total) by mouth daily as needed for constipation. Mix powder in 4 to 8 oz of water, juice, coffee, or tea prior to administration. 30 packet 025 2024 Discontinued traZODone (DESYREL) 50 mg tablet Take 1 tablet (50 mg total) by mouth nightly as needed for sleep. 30 tablet 04/19/19 12:03 PM EST 025 2024 Discontinued lactulose 10 gram/15 mL solution Take 15 mL (10 g total) by mouth 3 times a day. 1350 mL 2 04/19/19 12:03 PM EST 025 2024 Discontinued(S top Taking at Discharge) Active Problems Problem Noted Date Diagnosed Date Moderate protein-calorie malnutrition 04/18/2024 Assessment & Plan (05/02/2024 7:27 AM EST): High protein diet, protein shakes. Pt says he does not like Ensure. Assessment & Plan (05/01/2024 7:47 AM EST): High protein diet, protein shakes. Pt says he does not like Ensure. Assessment & Plan (04/30/2024 7:36 AM EST): High protein diet, protein shakes. Pt says he does not like Ensure. Assessment & Plan (04/29/2024 7:28 AM EST): High protein diet, protein shakes. Pt says he does not like Ensure. Assessment & Plan (04/28/2024 8:55 AM EST): High protein diet, protein shakes. Pt says he does not like Ensure. Assessment & Plan (04/27/2024 4:12 PM EST): High protein diet, protein shakes. Pt says he does not like Ensure. Assessment & Plan (04/26/2024 7:48 AM EST): High protein diet, protein shakes. Pt says he does not like Ensure. Assessment & Plan (04/25/2024 7:43 AM EST): High protein diet, protein shakes. Pt says he does not like Ensure. Assessment & Plan (04/24/2024 10:39 PM EST): High protein diet, protein shakes. Pt says he does not like Ensure. Assessment & Plan (04/19/2024 12:17 PM EST): High protein diet, salt restriction Hyperlipidemia 04/16/2024 Assessment & Plan (05/02/2024 7:27 AM EST): Pt states not taking simvastatin 5mg daily Assessment & Plan (05/01/2024 7:47 AM EST): Pt states not taking simvastatin 5mg daily Assessment & Plan (04/30/2024 7:36 AM EST): Pt states not taking simvastatin 5mg daily Assessment & Plan (04/29/2024 7:28 AM EST): Pt states not taking simvastatin 5mg daily Assessment & Plan (04/28/2024 8:55 AM EST): Pt states not taking simvastatin 5mg daily Assessment & Plan (04/27/2024 4:12 PM EST): Pt states not taking simvastatin 5mg daily Assessment & Plan (04/26/2024 7:48 AM EST): Pt states not taking simvastatin 5mg daily Assessment & Plan (04/25/2024 7:01 PM EST): Pt states not taking simvastatin 5mg daily Assessment & Plan (04/24/2024 10:39 PM EST): Pt states not taking simvastatin 5mg daily Assessment & Plan (04/19/2024 12:17 PM EST): - simvastatin 5 mg nightly Assessment & Plan (04/18/2024 3:44 PM EST): - simvastatin 5 mg nightly discontinued in setting of being on cipro, continue when finishes Abx course Assessment & Plan (04/17/2024 7:32 AM EST): - c/h simvastatin 5 mg nightly Assessment & Plan (04/16/2024 8:17 PM EST): - c/h simvastatin 5 mg nightly Insomnia 04/16/2024 Assessment & Plan (04/19/2024 12:17 PM EST): - started on trazodone 50 mg nightly this admission and melatonin Assessment & Plan (04/18/2024 3:44 PM EST): - started on trazodone 50 mg nightly this admission and melatonin Assessment & Plan (04/17/2024 7:32 AM EST): - started on trazodone 50 mg nightly this admission and melatonin Assessment & Plan (04/16/2024 8:17 PM EST): - started on trazodone 50 mg nightly this admission and melatonin Cholecystitis 04/12/2024 Assessment & Plan (04/19/2024 12:17 PM EST): Acute cholecystitis in 01/2024. Cholecystectomy was deferred at that time given patient's history of cirrhosis and he underwent percutaneous cholecystostomy tube placement by IR with plan for outpatient cholecystectomy on 04/18. However, in the interim, cholecystostomy tube obstructed and led to SBP. General surgery was consulted and tube was flushed with new three-way stopcock/drainage bag applied. Has been functioning well since then. General surgery has signed off. -Outpt FU will gen surg for continued management Assessment & Plan (04/18/2024 3:44 PM EST): Acute cholecystitis in 01/2024. Cholecystectomy was deferred at that time given patient's history of cirrhosis and he underwent percutaneous cholecystostomy tube placement by IR with plan for outpatient cholecystectomy on 04/18. However, in the interim, cholecystostomy tube obstructed and led to SBP. General surgery was consulted and tube was flushed with new three-way stopcock/drainage bag applied. Has been functioning well since then. General surgery has signed off. -Outpt FU will gen surg for continued management Assessment & Plan (04/17/2024 2:31 PM EST): Acute cholecystitis in 01/2024. Cholecystectomy was deferred at that time given patient's history of cirrhosis and he underwent percutaneous cholecystostomy tube placement by IR with plan for outpatient cholecystectomy on 04/18. However, in the interim, cholecystostomy tube obstructed and led to SBP. General surgery was consulted and tube was flushed with new three-way stopcock/drainage bag applied. Has been functioning well since then. General surgery has signed off. Assessment & Plan (04/16/2024 8:17 PM EST): Acute cholecystitis in 01/2024. Cholecystectomy was deferred at that time given patient's history of cirrhosis and he underwent percutaneous cholecystostomy tube placement by IR with plan for outpatient cholecystectomy on 04/18. However, in the interim, cholecystostomy tube obstructed and led to SBP. General surgery was consulted and tube was flushed with new three-way stopcock/drainage bag applied. Has been functioning well since then. General surgery has signed off. 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 Previous decompensations of ascites, SBP on ppx, HE. Follows with Dr. Low outpatient. Somewhat of a recent diagnosis [...] on day of admission draining 1.7L and total had 3 radha (04/14 draining about 5L, 04/18 about 5L, and day of admission), 04/29 1.6 L removed although noted to be loculated HE: history of HE, now on lactulose and rifaximin SBP: yes most recently earlier this month Workup: CT 3 Phase: no focal liver lesions, splenic enlargement, gastric fundal and paraesophageal varices. No gross ascites. Moderate left-sided pleural effusion. 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 Previous decompensations of ascites, SBP on ppx, HE. Follows with Dr. oLw outpatient. Somewhat of a recent diagnosis Jan [...] on day of admission draining 1.7L and total had 3 radha (04/14 draining about 5L, 04/18 about 5L, and day of admission) HE: history of HE, now on lactulose and rifaximin SBP: yes most recently earlier this month Workup: CT 3 Phase: no focal liver lesions, splenic enlargement, gastric fundal and paraesophageal varices. No gross ascites. Moderate left-sided pleural effusion. 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 Previous decompensations of ascites, SBP on ppx, HE. Follows with Dr. Low outpatient. Somewhat of a recent diagnosis [...] on day of admission draining 1.7L and total had 3 radha (04/14 draining about 5L, 04/18 about 5L, and day of admission) HE: history of HE, now on lactulose and rifaximin SBP: yes most recently earlier this month Workup: CT 3 Phase: no focal liver lesions, splenic enlargement, gastric fundal and paraesophageal varices. No gross ascites. Moderate left-sided pleural effusion. 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 Previous decompensations of ascites, SBP on ppx, HE. Follows with Dr. Low outpatient. Somewhat of a recent diagnosis [...] on day of admission draining 1.7L and total had 3 radha (04/14 draining about 5L, 04/18 about 5L, and day of admission) HE: history of HE, now on lactulose and rifaximin SBP: yes most recently earlier this month Workup: CT 3 Phase: no focal liver lesions, splenic enlargement, gastric fundal and paraesophageal varices. No gross ascites. Moderate left-sided pleural effusion. 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 Previous decompensations of ascites, SBP on ppx, HE. Follows with Dr. Low outpatient. Somewhat of a recent diagnosis [...] on day of admission draining 1.7L and total had 3 radha (04/14 draining about 5L, 04/18 about 5L, and day of admission) HE: history of HE, now on lactulose and rifaximin SBP: yes most recently earlier this month Workup: CT 3 Phase: no focal liver lesions, splenic enlargement, gastric fundal and paraesophageal varices. No gross ascites. Moderate left-sided pleural effusion. 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 Previous decompensations of ascites, SBP on ppx, HE. Follows with Dr. Low outpatient. Somewhat of a recent diagnosis [...] on day of admission draining 1.7L and total had 3 radha (04/14 draining about 5L, 04/18 about 5L, and day of admission) HE: history of HE, now on lactulose and rifaximin SBP: yes most recently earlier this month Workup: CT 3 Phase: no focal liver lesions, splenic enlargement, gastric fundal and paraesophageal varices. No gross ascites. Moderate left-sided pleural effusion. Plan Hold home diuretics ISO sepsis; was also instructed to stop it in clinic on day of admission due to hyponatremia Encephalopathy: continue home lactulose, continue rifaximin (appears to have been added day of arrival in clinic) Continue home midodrine 15mg q8h Abx as above for SBP Low salt, high protein diet Give Albumin 1.5g/kg D1 04/25, albumin 1g/kg D3 for fluid overload Will discuss need/candidacy for TIPS pending clinical course Assessment & Plan (04/26/2024 7:31 PM EST): Home meds: ciprofloxacin 500mg daily, lactulose 10 g 3 times a day, rifaximin 550 mg every 12 hours, midodrine 15 mg every 8 hours 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 Previous decompensations of ascites, SBP on ppx, HE. Follows with Dr. Low outpatient. Somewhat of a recent diagnosis [...] on day of admission draining 1.7L and total had 3 radha (04/14 draining about 5L, 04/18 about 5L, and day of admission) HE: history of HE, now on lactulose and rifaximin SBP: yes most recently earlier this month Workup: CT 3 Phase: no focal liver lesions, splenic enlargement, gastric fundal and paraesophageal varices. No gross ascites. Moderate left-sided pleural effusion. 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 Previous decompensations of ascites, SBP on ppx, HE. Follows with Dr. Low outpatient. Somewhat of a recent diagnosis [...] on day of admission draining 1.7L and total had 3 radha (04/14 draining about 5L, 04/18 about 5L, and day of admission) HE: history of HE, now on lactulose and rifaximin SBP: yes most recently earlier this month Workup: CT 3 Phase: no focal liver lesions, splenic enlargement, gastric fundal and paraesophageal varices. No gross ascites. Moderate left-sided pleural effusion. 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 Previous decompensations of ascites, SBP on ppx, HE. Follows with Dr. Low outpatient. Somewhat of a recent diagnosis Jan 2024. Initially at that time his MELD was 35 but downtrended to 14 on discharge. Today is 22. Decompensation history Varices: unknown, needs screening EGD Ascites: on diuretics as above. Para outpatient with IR on day of admission draining 1.7L and total had 3 radha (04/14 draining about 5L, 04/18 about 5L, and day of admission) HE: history of HE, now on lactulose and rifaximin SBP: yes most recently earlier this month Plan Obtain CT AP noncon due to rising Tbili Hold home diuretics ISO sepsis; was also instructed to stop it in clinic on day of admission due to hyponatremia Encephalopathy: continue home lactulose, start rifaximin (pt says not on it yet, seemed to have been added today in clinic) Continue home midodrine 15mg q8h Abx as above for SBP Low salt, high protein diet Assessment & Plan (04/19/2024 12:17 PM EST): ETOH cirrhosis without previous decompensations, follows w/Dr. Mike Soto. Admitted for decompensated cirrhosis with decompensation of ascites secondary to SBP likely secondary to blocked percutaneous cholecystostomy tube. Plan for inpatient transplant evaluation. Last reported alcoholic beverage 11/2023, PETH negative this admission. MELD 3.0: 14 at 04/18/2024 5:53 AM MELD-Na: 15 at 04/18/2024 5:53 AM Calculated from: Serum Creatinine: 0.85 mg/dL (Using min of 1 mg/dL) at 04/18/2024 5:53 AM Serum Sodium: 137 mmol/L at 04/18/2024 5:53 AM Total Bilirubin: 2.3 mg/dL at 04/18/2024 5:53 AM Serum Albumin: 3.5 g/dL at 04/18/2024 5:53 AM INR(ratio): 1.6 at 04/18/2024 5:53 AM Age at listing (hypothetical): 63 years Sex: Male at 04/18/2024 5:53 AM Plan Daily MELD labs S/p volume expansion with albumin olast therapeutic para 04/13, likely needs another soon oconsider TIPS study for ascites Continuing lasix 20 spironolactone 50 mg Encephalopathy: was on lactulose in the ICU which was discontinued as patient's mentation improved following sepsis treatment. Consider restarting lactulose, sending PA check for rifaximin prior to discharge Antibiotics per SBP Will need SBP Ppx on discharge Restrict Tylenol to <2g per day Diet Salt restriction to < 2g daily Malnutrition/sarcopenia? Dietary supplementation: Need for nutrition consult Need for palliative care consult? Active substance use? Addiction psych consult No current variceal PPX continue midodrine 15 mg 3 times a day (started this admission) Transplant workup studies ordered Assessment & Plan (04/18/2024 3:44 PM EST): ETOH cirrhosis without previous decompensations, follows w/Dr. Mike Soto. Admitted for decompensated cirrhosis with decompensation of ascites secondary to SBP likely secondary to blocked percutaneous cholecystostomy tube. Plan for inpatient transplant evaluation. Last reported alcoholic beverage 11/2023, PETH negative this admission. MELD 3.0: 14 at 04/18/2024 5:53 AM MELD-Na: 15 at 04/18/2024 5:53 AM Calculated from: Serum Creatinine: 0.85 mg/dL (Using min of 1 mg/dL) at 04/18/2024 5:53 AM Serum Sodium: 137 mmol/L at 04/18/2024 5:53 AM Total Bilirubin: 2.3 mg/dL at 04/18/2024 5:53 AM Serum Albumin: 3.5 g/dL at 04/18/2024 5:53 AM INR(ratio): 1.6 at 04/18/2024 5:53 AM Age at listing (hypothetical): 63 years Sex: Male at 04/18/2024 5:53 AM Plan Daily MELD labs S/p volume expansion with albumin olast therapeutic para 04/13, likely needs another soon oconsider TIPS study for ascites Continuing lasix 20 spironolactone 50 mg Encephalopathy: was on lactulose in the ICU which was discontinued as patient's mentation improved following sepsis treatment. Consider restarting lactulose, sending PA check for rifaximin prior to discharge Antibiotics per SBP Will need SBP Ppx on discharge Restrict Tylenol to <2g per day Diet Salt restriction to < 2g daily Malnutrition/sarcopenia? Dietary supplementation: Need for nutrition consult Need for palliative care consult? Active substance use? Addiction psych consult No current variceal PPX continue midodrine 15 mg 3 times a day (started this admission) Transplant workup studies ordered Assessment & Plan (04/17/2024 2:31 PM EST): ETOH cirrhosis without previous decompensations, follows w/Dr. Mike Soto. Admitted for decompensated cirrhosis with decompensation of ascites secondary to SBP likely secondary to blocked percutaneous cholecystostomy tube. Plan for inpatient transplant evaluation. Last reported alcoholic beverage 11/2023, PETH negative this admission. MELD 3.0: 13 at 04/17/2024 6:45 AM MELD-Na: 15 at 04/17/2024 6:45 AM Calculated from: Serum Creatinine: 1.07 mg/dL at 04/16/2024 5:08 AM Serum Sodium: 140 mmol/L (Using max of 137 mmol/L) at 04/16/2024 5:08 AM Total Bilirubin: 1.7 mg/dL at 04/16/2024 5:08 AM Serum Albumin: 3.7 g/dL (Using max of 3.5 g/dL) at 04/16/2024 5:08 AM INR(ratio): 1.6 at 04/17/2024 6:45 AM Age at listing (hypothetical): 63 years Sex: Male at 04/17/2024 6:45 AM Plan Daily MELD labs S/p volume expansion with albumin olast therapeutic para 04/13, likely needs another soon oconsider TIPS study for ascites Starting lasix 20 spironolactone 50 mg Encephalopathy: was on lactulose in the ICU which was discontinued as patient's mentation improved following sepsis treatment. Consider restarting lactulose, sending PA check for rifaximin prior to discharge Antibiotics per SBP Will need SBP Ppx on discharge Restrict Tylenol to <2g per day Diet Salt restriction to < 2g daily Malnutrition/sarcopenia? Dietary supplementation: Need for nutrition consult Need for palliative care consult? Active substance use? Addiction psych consult No current variceal PPX continue midodrine 15 mg 3 times a day (started this admission) Transplant workup studies ordered Assessment & Plan (04/16/2024 9:51 PM EST): Patient with history of cirrhosis secondary to AUD in remission since 11/2023 without previous decompensations, follows w/Dr. Mike Low. Admitted for decompensated cirrhosis with decompensation of ascites secondary to SBP likely secondary to blocked percutaneous cholecystostomy tube. Plan for inpatient transplant evaluation. MELD 3.0: 13 at 04/16/2024 5:08 AM MELD-Na: 14 at 04/16/2024 5:08 AM Calculated from: Serum Creatinine: 1.07 mg/dL at 04/16/2024 5:08 AM Serum Sodium: 140 mmol/L (Using max of 137 mmol/L) at 04/16/2024 5:08 AM Total Bilirubin: 1.7 mg/dL at 04/16/2024 5:08 AM Serum Albumin: 3.7 g/dL (Using max of 3.5 g/dL) at 04/16/2024 5:08 AM INR(ratio): 1.5 at 04/16/2024 5:08 AM Age at listing (hypothetical): 63 years Sex: Male at 04/16/2024 5:08 AM Plan Daily MELD labs S/p volume expansion with albumin olast therapeutic para 04/13, likely needs another soon oconsider TIPS study for ascites Encephalopathy: was on lactulose in the ICU which was discontinued as patient's mentation improved following sepsis treatment. Consider restarting lactulose, sending PA check for rifaximin prior to discharge Antibiotics per SBP Will need SBP Ppx on discharge Restrict Tylenol to <2g per day Diet Salt restriction to < 2g daily Malnutrition/sarcopenia? Dietary supplementation: Need for nutrition consult Need for palliative care consult? Active substance use? Addiction psych consult No current variceal PPX continue midodrine 15 mg 3 times a day (started this admission) Resolved Problems Problem Noted Date Diagnosed Date Resolved Date Hyponatremia 04/24/2024 05/03/2024 Assessment & Plan (05/02/2024 7:27 AM EST): Presentated with Na 127, improved with albumin administration. - Home diuretics as above - Outpatient fluid restriction of 1.2L liberalized iso sepsis Assessment & Plan (05/01/2024 7:47 AM EST): Presentated with Na 127, improved with albumin administration. - Home diuretics as above - Outpatient fluid restriction of 1.2L liberalized iso sepsis Assessment & Plan (04/30/2024 1:52 PM EST): Presentated with Na 127, improved with albumin administration. - Home diuretics as above - Outpatient fluid restriction of 1.2L liberalized iso sepsis Assessment & Plan (04/29/2024 5:03 PM EST): Presentated with Na 127, improved with albumin administration. - Hold home diuretics as above - Outpatient fluid restriction of 1.2L but liberalized iso sepsis Assessment & Plan (04/28/2024 8:55 AM EST): Presentated with Na 127, improved with albumin administration. - Hold home diuretics as above - Outpatient has fluid restriction of 1.2L but will liberalize for now given sepsis Assessment & Plan (04/27/2024 4:12 PM EST): Presentated with Na 127, improved with albumin administration. - Hold home diuretics as above - Outpatient has fluid restriction of 1.2L but will liberalize for now given sepsis Assessment & Plan (04/26/2024 7:31 PM EST): Presentated with Na 127, improved with albumin administration. - Hold home diuretics as above - Outpatient has fluid restriction of 1.2L but will liberalize for now given sepsis Assessment & Plan (04/25/2024 7:43 AM EST): - Hold home diuretics as above - Outpatient has fluid restriction of 1.2L but will liberalize for now given sepsis Assessment & Plan (04/24/2024 10:39 PM EST): - Hold home diuretics as above - Outpatient has fluid restriction of 1.2L but will liberalize for now given sepsis SBP (spontaneous bacterial peritonitis) 04/12/2024 05/03/2024 Assessment & Plan (05/02/2024 4:32 PM EST): More likely to be secondary bacterial peritonitis [...] Zosyn (D1: 04/24-04/27) - Continue ceftriaxone (D1: /3-), 7-10 day course total and through procedures - Transition to ciprofloxacin 500 mg daily for SBP prophylaxis after completing ceftriaxone - Flush drain 3 times a day - Continue acetaminophen 650 q4h PRN - Monitor for pancreatitis, bleeding, perforation, and cholangitis post ERCP Assessment & Plan (05/01/2024 11:29 AM EST): More likely to be secondary bacterial peritonitis [...] Zosyn (D1: 04/24-04/27) - Continue ceftriaxone (D1: /3-), 7-10 day course total and through procedures - Per ID, transition to ciprofloxacin 500 mg daily for SBP prophylaxis after completing ceftriaxone - Flush drain 3 times a day - Continue acetaminophen 650 q4h PRN - Repeat ERCP 05/02 for stent exchange and transcystic stent placement, NPO @ [facility] - Monitor for pancreatitis, bleeding, perforation, and cholangitis post ERCP Assessment & Plan (04/30/2024 2:02 PM EST): More likely to be secondary bacterial peritonitis [...] pancreatitis, bleeding, perforation, and cholangitis post ERCP Assessment & Plan (04/29/2024 5:03 PM EST): More likely to be secondary bacterial peritonitis [...] -s/p Zosyn (D1: 04/24-04/27) -Start ceftriaxone (D1: 3-) - Flush drain 3 times a day - Continue acetaminophen 650 q4h PRN - ERCP for potential stent placement 04/29 Assessment & Plan (04/28/2024 3:56 PM EST): More likely to be secondary bacterial peritonitis [...] drain is functioning well and pt was seen by Dr. Chavez (gen surg) outpatient in clinic day of admission and flushed the drain. Consult surgery if needed. - Continue acetaminophen 650 q4h PRN - Plan for diagnostic and therapeutic paracentesis 04/28 - Plan for stent exchange in cystic duct 05/02 unless can be moved earlier, will preemptively make NPO @ [facility] Assessment & Plan (04/27/2024 4:12 PM EST): More likely to be secondary bacterial peritonitis [...] drain is functioning well and pt was seen by Dr. Chavez (gen surg) outpatient in clinic day of admission and flushed the drain. Consult surgery if needed. - Continue acetaminophen 650 q4h PRN - Plan for diagnostic and therapeutic paracentesis 2/3 - Plan for stent exchange in cystic duct 05/02 Assessment & Plan (04/26/2024 7:31 PM EST): More likely to be secondary bacterial peritonitis [...] drain is functioning well and pt was seen by Dr. Chavez (gen surg) outpatient in clinic day of admission and flushed the drain. Consult surgery if needed. - Continue acetaminophen 650 q4h PRN - Plan for paracentesis vs TIPS 2/3 - Plan for stent exchange in cystic duct 05/02 Assessment & Plan (04/25/2024 7:01 PM EST): More likely to be secondary bacterial peritonitis [...] drain removal. S/p CTX in ED x1. Workup: [...] drain is functioning well and pt was seen by Dr. Chavez (gen surg) outpatient in clinic day of admission and flushed the drain. Consult surgery if needed. - Continue acetaminophen 650 q4h PRN - Plan for paracentesis vs TIPS 04/28 - Plan for stent exchange in cystic duct 05/02 Assessment & Plan (04/24/2024 10:39 PM EST): More likely to be secondary bacterial peritonitis [...] drain removal. S/p CTX in ED x1. - [...] drain is functioning well and pt was seen by Dr. Chavez (gen surg) outpatient in clinic day of admission and flushed the drain. Please evaluate drain site in AM and consult surgery if needed. Assessment & Plan (04/19/2024 12:17 PM EST): Presented this admission with SBP likely isoblocked percutaneous cholecystostomy tube. Confirmed on diagnostic paracentesis. Cultures growing Klebsiella pneumonia. S/p albumin for both HRS and SBP protocol. Repeat paracentesis on 04/13 demonstrated improving neutrophil counts but with persistent Klebsiella growth. - S/p Zosyn (D1: 04/11-04/17) - s/p octreotide 100 mcg q8h (04/12-04/18) - last therapeutic paracentesis 04/17 - ID consulted, appreciate recs - will need SBP prophylaxis upon completion of abx : cipro 500mg daily starting 04/22 Assessment & Plan (04/18/2024 3:44 PM EST): Presented this admission with SBP likely isoblocked percutaneous cholecystostomy tube. Confirmed on diagnostic paracentesis. Cultures growing Klebsiella pneumonia. S/p albumin for both HRS and SBP protocol. Repeat paracentesis on 04/13 demonstrated improving neutrophil counts but with persistent Klebsiella growth. - S/p Zosyn (D1: 04/11-04/17) - s/p octreotide 100 mcg q8h (04/12-04/18) - last therapeutic paracentesis 04/17 - ID consulted, appreciate recs - will need SBP prophylaxis upon completion of abx Assessment & Plan (04/17/2024 2:31 PM EST): Presented this admission with SBP likely isoblocked percutaneous cholecystostomy tube. Confirmed on diagnostic paracentesis. Cultures growing Klebsiella pneumonia. S/p albumin for both HRS and SBP protocol. Repeat paracentesis on 04/13 demonstrated improving neutrophil counts but with persistent Klebsiella growth. - Zosyn (D1: 04/11-04/17) - continue octreotide 100 mcg q8h (04/12-) today is day 6, will consider discontinuing tomorrow - last therapeutic paracentesis 04/13, plan for repeat paracentesis today - ID consulted, appreciate recs - will need SBP prophylaxis upon completion of abx Assessment & Plan (04/16/2024 8:17 PM EST): Presented this admission with SBP likely isoblocked percutaneous cholecystostomy tube. Confirmed on diagnostic paracentesis. Cultures growing Klebsiella pneumonia. S/p albumin for both HRS and SBP protocol. Repeat paracentesis on 04/13 demonstrated improving neutrophil counts but with persistent Klebsiella growth. - Zosyn (D1: 04/11-) - continue octreotide 100 mcg q8h (04/12-) - last therapeutic paracentesis 04/13, likely requires another soon - ID consulted, appreciate recs - will need SBP prophylaxis upon completion of abx Sepsis 04/12/2024 05/03/2024 Assessment & Plan (05/02/2024 7:27 AM EST): Sepsis with WBC 21, tachycardia, and tachypnea. Source confirmed SBP. Will send for other infectious workup (CXR, UA with culture reflex, BCX pending). Holding off on fluid resuscitation given adequate BP and volume overload at baseline necessitating daily diuretics as well as hyponatremia. Started on abx as above. Reduced lactic acid clearance likely iso hepatic dysfunction (3.3>>>1.6) that improved with albumin administration. -See #SBP and #Decompensated cirrhosis for plan Assessment & Plan (05/01/2024 7:47 AM EST): Sepsis with WBC 21, tachycardia, and tachypnea. Source confirmed SBP. Will send for other infectious workup (CXR, UA with culture reflex, BCX pending). Holding off on fluid resuscitation given adequate BP and volume overload at baseline necessitating daily diuretics as well as hyponatremia. Started on abx as above. Reduced lactic acid clearance likely iso hepatic dysfunction (3.3>>>1.6) that improved with albumin administration. -See #SBP and #Decompensated cirrhosis for plan Assessment & Plan (04/30/2024 7:36 AM EST): Sepsis with WBC 21, tachycardia, and tachypnea. Source confirmed SBP. Will send for other infectious workup (CXR, UA with culture reflex, BCX pending). Holding off on fluid resuscitation given adequate BP and volume overload at baseline necessitating daily diuretics as well as hyponatremia. Started on abx as above. Reduced lactic acid clearance likely iso hepatic dysfunction (3.3>>>1.6) that improved with albumin administration. -See #SBP and #Decompensated cirrhosis for plan Assessment & Plan (04/29/2024 7:28 AM EST): Sepsis with WBC 21, tachycardia, and tachypnea. Source confirmed SBP. Will send for other infectious workup (CXR, UA with culture reflex, BCX pending). Holding off on fluid resuscitation given adequate BP and volume overload at baseline necessitating daily diuretics as well as hyponatremia. Started on abx as above. Reduced lactic acid clearance likely iso hepatic dysfunction (3.3>>>1.6) that improved with albumin administration. -See #SBP and #Decompensated cirrhosis for plan Assessment & Plan (04/28/2024 8:55 AM EST): Sepsis with WBC 21, tachycardia, and tachypnea. Source confirmed SBP. Will send for other infectious workup (CXR, UA with culture reflex, BCX pending). Holding off on fluid resuscitation given adequate BP and volume overload at baseline necessitating daily diuretics as well as hyponatremia. Started on abx as above. Reduced lactic acid clearance likely iso hepatic dysfunction (3.3>>>1.6) that improved with albumin administration. -See #SBP and #Decompensated cirrhosis for plan Assessment & Plan (04/27/2024 4:12 PM EST): Sepsis with WBC 21, tachycardia, and tachypnea. Source confirmed SBP. Will send for other infectious workup (CXR, UA with culture reflex, BCX pending). Holding off on fluid resuscitation given adequate BP and volume overload at baseline necessitating daily diuretics as well as hyponatremia. Started on abx as above. Reduced lactic acid clearance likely iso hepatic dysfunction (3.3>>>1.6) that improved with albumin administration. -See #SBP and #Decompensated cirrhosis for plan Assessment & Plan (04/26/2024 7:31 PM EST): Sepsis with WBC 21, tachycardia, and tachypnea. Source confirmed SBP. Will send for other infectious workup (CXR, UA with culture reflex, BCX pending). Holding off on fluid resuscitation given adequate BP and volume overload at baseline necessitating daily diuretics as well as hyponatremia. Started on abx as above. Reduced lactic acid clearance likely iso hepatic dysfunction (3.3>>>1.6) that improved with albumin administration. -See #SBP and #Decompensated cirrhosis for plan Assessment & Plan (04/25/2024 7:01 PM EST): Sepsis with WBC 21, tachycardia, and tachypnea. Source confirmed SBP. Will send for other infectious workup (CXR, UA with culture reflex, BCX pending). Holding off on fluid resuscitation given adequate BP and volume overload at baseline necessitating daily diuretics as well as hyponatremia. Started on abx as above. Reduced lactic acid clearance likely iso hepatic dysfunction. - Trend lactic acid until clear (3.3 > 2.4 > 2.6) Assessment & Plan (04/24/2024 10:39 PM EST): Sepsis with WBC 21, tachycardia, and tachypnea. Source confirmed SBP. Will send for other infectious workup (CXR, UA with culture reflex, BCX pending). Holding off on fluid resuscitation given adequate BP and volume overload at baseline necessitating daily diuretics as well as hyponatremia. Started on abx as above. - Trend lactic acid until clear Assessment & Plan (04/16/2024 8:17 PM EST): Presented in septic shock secondary to Klebsiella SBP isoobstructed cholecystostomy tube. He was appropriately fluid resuscitated and has been weaned off vasopressors since 04/15. MARÍA (acute kidney injury) 04/12/2024 Assessment & Plan (04/16/2024 8:17 PM EST): Presented with MARÍA with creatinine of 5.68, suspected secondary to HRS. Complicated by hyponatremia, hyperkalemia. Administered albumin per HRS protocol with improvement of creatinine to normal. Continues to have good urine output. Hypertension 04/19/2024 Assessment & Plan (04/18/2024 3:44 PM EST): Home meds: lisinopril 5 mg daily - hold lisinopril Assessment & Plan (04/17/2024 2:31 PM EST): Home meds: lisinopril 5 mg daily - hold lisinopril Assessment & Plan (04/16/2024 8:17 PM EST): Home meds: lisinopril 5 mg daily - hold lisinopril iso hypotension and MARÍA Encounters Date Type Department Care Team Description 05/23/2024 9:57 AM EST - 05/23/2024 11:59 PM EST Hospital Encounter [facility] Interventional Radiology [address] [place] [address] Mike Low MD Alcoholic cirrhosis of liver with ascites (CMS/HCC) (HCC) Discharge Disposition: Home or Self Care () 05/22/2024 Telephone [facility] Transplant Department [address] [place] [address] Lisa Payne, [facility] 05/22/2024 Telephone [facility] Interventional Radiology [address] [place] [address] Hoa Durbin RN 05/20/2024 1:00 PM EST - 05/20/2024 11:59 PM EST Hospital Encounter [facility] Interventional Radiology [address] [place] [address] Mike Low MD Alcoholic cirrhosis of liver with ascites (CMS/HCC) (HCC); Cholecystitis; SBP (spontaneous bacterial peritonitis) (HCC) Discharge Disposition: Home or Self Care () 05/20/2024 myChart Message [facility] Transplant Services [address] [place] [address] Lorie Mahoney RN Medicatoins 05/19/2024 Orders Only [facility] Transplant Department [address] [place] [address] Lorie Mahoney RN Alcoholic cirrhosis of liver with ascites (CMS/HCC) (HCC) (Primary Dx) 05/16/2024 Results Follow-Up [facility]plant [facility] [address] [place] [address] Mike Low MD 05/16/2024 Orders Only [facility]plant [facility] [address] [place] [address] Mike Low MD Alcoholic cirrhosis of liver with ascites (CMS/HCC) (HCC) (Primary Dx) 05/16/2024 myChart Message [facility]plant [facility] [address] [place] [address] Mike Low MD paracentesis (fluid tap) 05/16/2024 Results Follow-Up [facility] [address] [place] [address] Alondra Aceves RN 05/16/2024 Telephone [facility] Interventional Radiology [address] [place] [address] Chela Tatum, DIRECTOR OF MARKET INTELLIGENCE 05/15/2024 12:15 PM EST - 05/15/2024 11:59 PM EST Hospital Encounter [facility] Interventional Radiology [address] [place] [address] Mike Low MD Heglin, Kurt L, RN Alcoholic cirrhosis of liver with ascites (CMS/HCC) (HCC) Discharge Disposition: Home or Self Care (01) 05/15/2024 11:00 AM EST Follow-Up [facility]plant [facility] [address] [place] [address] Mike Low MD Alcoholic cirrhosis of liver with ascites (CMS/HCC) (HCC) (Primary Dx); Cholecystitis; SBP (spontaneous bacterial peritonitis) (HCC) 05/15/2024 Abstract [facility] Transplant Department [address] [place] [address] Damaris Garcias 05/15/2024 Refill [facility] Transplant Department [address] [place] [address] Isabella Perry 05/15/2024 Telephone [facility] Interventional Radiology [address] [place] [address] Hoa Durbin, LATOSHA 05/13/2024 Telephone [facility] Transplant Department [address] [place] [address] Tiffany Correa 05/09/2024 9:02 AM EST - 05/09/2024 11:59 PM EST Hospital Encounter [facility] Interventional Radiology [address] [place] [address] Mike Low MD Alcoholic cirrhosis of liver with ascites (CMS/HCC) (HCC) Discharge Disposition: Home or Self Care (01) 05/09/2024 Orders Only [facility] Transplant Department [address] [place] [address] Alondra Aceves, LATOSHA Alcoholic cirrhosis of liver with ascites (CMS/HCC) (HCC) (Primary Dx) 05/08/2024 Telephone [facility] Interventional Radiology [address] [place] [address] 17272 Kimberly Caruso RN 05/07/2024 Orders Only [facility] Transplant Department [address] [place] [address] 1967[address] Lorie Mahoney RN 05/07/2024 Orders Only [facility] Interventional Radiology [address] [place] [address]34 J Luis Melgar PA 05/07/2024 Orders Only [facility] Inter[facility] Radiology [address] [place] [address] Karlene Mehta PA 05/02/2024 1:59 PM EST Anesthesia Event [facility] Operating Room [address] [place] [address] Grady Riley MD 05/02/2024 12:45 PM EST - 05/02/2024 1:45 PM EST Surgery [facility] Operating Room [address] [place] [address] Rachel Murray MD ENDOSCOPIC RETROGRADE CHOLANGIOPANCREATOG WALTER, DIAGNOSTIC WITH POSSIBLE BRUSHING OR WASHING AND POSSIBLE MODERATE SEDATION [28491 (CPT??)] 05/02/2024 Documentation [facility] Transplant Department [address] [place] [address] Alondra Aceves, LATOSHA ABO Dual Validation 05/02/2024 Documentation [facility] Transplant Department [address] [place] [address] Lorie Mahoney RN ABO Dual Validation 04/30/2024 Orders Only [facility] Interventional Radiology [address] [place] [address] Alondra Sage NP 04/29/2024 4:21 PM EST Anesthesia Event [facility] Operating Room [address] [place] [address] Grady Riley MD 04/29/2024 1:00 PM EST - 04/29/2024 2:00 PM EST Surgery [facility] Operating Room [address] [place] [address] Rachel Murray MD ENDOSCOPIC RETROGRADE CHOLANGIOPANCREATOG WALTER, DIAGNOSTIC WITH POSSIBLE BRUSHING OR WASHING AND POSSIBLE MODERATE SEDATION [82860 (CPT??)] 04/25/2024 Telephone [facility] Building [address] [place] [address] Alondra Cohn CPhT Prior Authorization 04/24/2024 5:35 PM EST - 05/03/2024 4:53 PM EST Hospital Encounter [facility] [address] [place] [address] Dana Samuels MD Barry, Curtis T., MD Zivny, Jaroslav, MD Devuni, Deepika N., MD Spontaneous bacterial peritonitis (HCC) (Primary Dx); Cholecystitis; Decompensated cirrhosis (HCC) Discharge Disposition: Home with Services () 04/24/2024 1:35 PM EST - 04/24/2024 5:34 PM EST Hospital Encounter [facility] Interventional Radiology [address] [place] [address] Delmis Joseph MD Alcoholic cirrhosis of liver with ascites (CMS/HCC) (HCC) Discharge Disposition: Home or Self Care () 04/24/2024 12:50 PM EST Lab [facility] Draw Site [address] [place] [address] Alcoholic cirrhosis of liver with ascites (CMS/HCC) (HCC) 04/24/2024 11:45 AM EST Office Visit [facility] [address] [place] [address] Eugenio Chavez III, MD Decompensated cirrhosis (HCC) (Primary Dx); Cholecystitis; Moderate protein-calorie malnutrition (CMS/HCC); SBP (spontaneous bacterial peritonitis) (HCC); Encounter for pre-transplant evaluation for liver transplant 04/24/2024 11:00 AM EST Follow-Up [facility] [address] [place] [address] Mike Low MD Alcoholic cirrhosis of liver with ascites (CMS/HCC) (HCC) (Primary Dx) 04/24/2024 Orders Only [facility] Transplant Department [address] [place] [address] Lorie Mahoney RN Alcoholic cirrhosis of liver with ascites (CMS/HCC) (HCC) (Primary Dx) 04/24/2024 Orders Only [facility] Transplant Department [address] [place] [address] Lorie Mahoney RN 04/24/2024 Orders Only [facility] Department [address] [place] [address] Lorie Mahoney RN Alcoholic cirrhosis of liver with ascites (CMS/HCC) (HCC) (Primary Dx) 04/24/2024 Orders Only [facility] Transplant Department [address] [place] [address] ProviderAddison MD 04/24/2024 Telephone [facility] Interventional Radiology [address] [place] [address] Tyesha Mar, LATOSHA 04/23/2024 Telephone [facility] Interventional Radiology [address] [place] [address] Tyesha Mar, LATOSHA 04/23/2024 Refill [facility] [address] [place] [address] Mike Low MD 04/21/2024 Refill [facility] [address] [place] [address] 16[address] Mike Low MD 04/21/2024 Orders Only [facility] [address] [place] [address] 69772 Sonia Khoury NP 04/21/2024 Refill [facility] [address] [place] [address] 75234 Mike Low MD 04/21/2024 Refill [facility] [address] [place] [address] 84595 Mike Low MD 04/21/2024 Orders Only [facility] Department [address] [place] [address] 68970 Lorie Mahoney, RN 04/21/2024 Orders Only [facility] Department [address] [place] [address] 512[address] Lorie Mahoney, RN Alcoholic cirrhosis of liver with ascites (CMS/HCC) (HCC) (Primary Dx) 04/18/2024 Orders Only [facility]iology [address] [place] [address] 18419 Malathi Brambila MD 04/18/2024 Orders Only [facility] Transplant Department [address] [place] [address] 21403 Lorie Mahoney RN Alcoholic cirrhosis of liver with ascites (CMS/HCC) (HCC) (Primary Dx); Encounter for pre-transplant evaluation for liver transplant 04/16/2024 Abstract [facility] Transplant Department [address] [place] [address] Lisa Payne [facility] 04/11/2024 4:29 PM EST - 04/19/2024 1:16 PM EST Hospital Encounter [address] [place] [address] Yovana Snyder, Janina Mendez, Abelardo Esparza, Zina Tam I., Martha Richter, MD Joseph, Delmis Corral MD Septic shock (HCC) (Primary Dx); Hypotension; SBP (spontaneous bacterial peritonitis) (HCC); Decompensated cirrhosis (HCC); Metabolic acidosis; MARÍA (acute kidney injury) (HCC); Hyponatremia Discharge Disposition: Home with Services (06) 04/11/2024 11:00 AM EST Follow-Up [facility] [address] [place] [address] Mike Low MD Acute cholecystitis (Primary Dx); Alcoholic cirrhosis of liver with ascites (CMS/HCC) (HCC) 04/11/2024 10:30 AM EST Follow-Up [facility] [address] [place] [address]809 Christiano Sales MD PhD Alcoholic cirrhosis of liver with ascites (CMS/HCC) (HCC) 04/11/2024 Orders Only [facility]plant Department [address] [place] [address] 99809 Lorie Mahoney RN 04/11/2024 Telephone [facility] Transplant Department [address] [place] [address] Heaven Erwin MD MPH 04/03/2024 11:59 PM EST Anesthesia Event [facility] Operating Room [address] [place] [address] 41505 Vitaliy Arshad, RN OTOLARYNGOLOGY 03/27/2024 Prep for Case [facility] Transplant Department [address] [place] [address] 08328 Heaven Erwin MD MPH 03/21/2024 11:00 AM EST Office Visit [facility] [address] [place] [address] 21442 Heaven Erwin MD MPH Alcoholic cirrhosis of liver with ascites (CMS/HCC) (HCC) (Primary Dx); Acute cholecystitis 03/21/2024 Prep for Case [facility] Department [address] [place] [address] 40874 Heaven Erwin MD MPH Acute cholecystitis (Primary Dx) 03/18/2024 2:00 PM EST Social Work [facility] [address] [place] [address] 09266 Cely Brenner, [facility] 03/18/2024 1:00 PM EST Office Visit [facility] [address] [place] [address] 14213 Mike Low MD Alcoholic cirrhosis of liver with ascites (CMS/HCC) (HCC) (Primary Dx); Acute cholecystitis 03/18/2024 12:00 PM EST Evaluation [facility] [address] [place] [address] 08166 Lorie Mahoney RN Encounter for pre-transplant evaluation for liver transplant (Primary Dx) 03/18/2024 10:45 AM EST Lab [facility] Draw Site [address] [place] [address] Encounter for pre-transplant evaluation for liver transplant 03/17/2024 Orders Only [facility] Transplant Department [address] [place] [address] Lorie Mahoney, RN Encounter for pre-transplant evaluation for liver transplant (Primary Dx) 03/13/2024 Orders Only [facility] Transplant Department [address] [place] [address] Lorie Mahoney, RN Encounter for pre-transplant evaluation for liver transplant (Primary Dx) 03/06/2024 Orders Only [facility] Transplant Department [address] [place] [address] Provider, MD Addison from Last 3 Months Immunizations Immunization Administration Dates Next Due INFLUENZA, SPLIT VIRUS, TRIVALENT, PF 04/12/2024 (Deferred: Patient Refused) Family History Medical History Relation Name Comments Myocardial Infarction Father Other Mother unsure of medic al history Relation Name Status Comments Father Mother Social History Tobacco Use Types Packs/Day Years Used Date Smoking Tobacco: Never Smokeless Tobacco: Never Tobacco Cessation:Counseling Given: Not Answered Alcohol Use Standard Drinks/Week Comments Not Currently 8 (1 standard drink = 0.6 oz pur e alcohol) sober since 11/2023 [facility] Utilities Answer Date Recorded In the past [...] Orientation Straight 03/20/2024 1: 52 PM EST Last Filed Vital Signs Vital Sign Reading Time Taken Comments Blood Pressure 115/75 05/23/2024 11:49 AM EST Pulse 77 05/23/2024 11:49 AM EST Temperature 36.5 ??C (97.7 ??F) 05/23/2024 10:[address] Respiratory Rate 18 05/23/2024 11:36 AM EST Oxygen Saturation 96% 05/23/2024 11:49 AM EST Inhaled Oxygen Concentration - - Weight 91 kg (200 lb 9.9 oz) 05/15/2024 11:00 AM EST Height 180.3 cm (5' 11 ) 04/29/2024 12:55 PM EST Body Mass Index 27.98 04/29/2024 12:55 PM EST Plan of Treatment Upcoming Encounters Date Type Department Care Team (Latest Contact Info) Description 5 10:30 AM EST Appointment [facility] Interventional Radiology [address] [place] [phone] Mike Rey i, MD [address] [place] [address] 5 10:30 AM EDT Appointment [facility] Interventional Radiology [address] [place] [address] Mike Rey i, MD [address] [place] [address] 5 2:00 PM EDT Pre-Admission Testing [facility] [address] [facility] [address] [place] [address] 5 10:00 AM EDT Appointment [facility] Interventional Radiology [address] [place] [phone] Mike Rey i, MD [address] [place] [address] 5 10:30 AM EDT Appointment [facility] Interventional Radiology [address] [place] [address] Mike Rey i, MD [address] [place] [phone] 5 9:00 AM EDT Pre-Admission Testing [facility] [address] [place] [phone] 5 10:30 AM EDT Appointment [facility] Interventional Radiology [address] [place] [phone] Mike Rey i, MD [address] [place] [phone] 5 10:30 AM EDT Appointment [facility] Interventional Radiology [address] [place] [address] [phone] Mike Rey i, MD [address] [place] [address] [phone] 5 8:30 AM EDT Hospital Encounter [facility] Operating Room [address] [place] [address] [phone] Rachel Murray MD [address] [place] [phone] 5 8:30 AM EDT - 5 9:30 AM EDT Surgery [facility] Operating Room [address] [place] [address] [phone] Rachel Murray MD [address] [place] [address] [phone] ENDOSCOPIC RETROGRADE CHOLANGIOPANCREATOGRAPHY WITH REMOVAL OF FOREIGN BODY(S)/STENT(S)/PANCREATIC DUCT(S) WITH POSSIBLE MODERATE SEDATION [12288 (CPT??)] 5 10:30 AM EDT Appointment [facility] Interventional Radiology [address] [place] [phone] Mike Rey i, MD [address] [place] [address] [phone] 5 4:30 PM EDT Follow-Up [facility] [address] [place] [address] [phone] Mike Rey i, MD [address] [place] [address] [phone] 5 10:30 AM EDT Appointment [facility] Interventional Radiology [address] [place] [address] [phone] Mike Rey i, MD [address] [place] [address] [phone] 5 10:30 AM EDT Appointment [facility] Interventional Radiology [address] [place] [address] 87060 Mike Rey i, MD [address] [place] [address] [phone] 5 10:30 AM EDT Appointment [facility] Interventional Radiology [address] [place] [address] [phone] Mike Rey i, MD [address] [place] [address] [phone] 5 10:30 AM EDT Appointment [facility] Interventional Radiology [address] [place] [address] [phone] Mike Rey i, MD [address] [place] [address] [phone] 5 10:30 AM EDT Appointment [facility] Interventional Radiology [address] [place] [address] 18[address] Mike Rey i, MD [address] [place] [address] [phone] 5 10:30 AM EDT Appointment [facility] Interventional Radiology [address] [place] [address] [phone] Mike Rey i, MD [address] [place] [address] [phone] 5 10:30 AM EDT Appointment [facility] Interventional Radiology [address] [place] [address] 36[address] Mike Rey i, MD [address] [place] [address] [phone] 5 10:30 AM EDT Appointment [facility] Interventional Radiology [address] [place] [address] [phone] Mike Rey i, MD [address] [place] [address] [phone] 5 10:30 AM EDT Appointment [facility] Interventional Radiology [address] [place] [address] [phone] Mkie Rey i, MD [address] [place] [address] [phone] 5 10:30 AM EDT Appointment [facility] Interventional Radiology [address] [place] [address] Mike Rey i, MD [address] [place] [address] 5 10:30 AM EDT Appointment [facility] Interventional Radiology [address] [place] [address] Mike Rey i, MD [address] [place] [address] Scheduled Procedures Name Priority Associated Diagnoses Date/Ti me ENDOSCOPIC RETROGRADE CHOLANGIOPANCREATOGRAPHY WITH REMOVAL OF FOREIGN BODY(S)/STENT(S)/PANCREATIC DUCT(S) WITH POSSIBLE MODERATE SEDATION Encounter for removal of biliary stent 07/04/2024 8:30 AM EDT LAPAROSCOPIC CHOLECYSTECTOMY Acute cholecystitis Health Maintenance Due Date Last Done Comments Cologuard 1960 Colon Cancer Screening 1960 Colonoscopy 1960 FOBT / Fit Test 1960 Sigmoidoscopy 1960 Hepatitis B Vaccines (1 of 3 - Risk 3-dose series) 2019 03/21/2018, 10/19/2017, 09/19/2017 RSV Vaccine (60+ years old a nd patients) (1 - Risk 60-74 years 1-dose series) 2019 COVID-19 Vaccine (5 - 2023-2 5 season) 2023 02/08/2023, 12/22/2020, 04/02/2020, Additional history exists Influenza Vaccine (#1) 2023 3, 12/28/2020, 12/23/2019, Additional history exists Depression Screening and Follow-Up 03/26/2024 Social Drivers of Health Daniela ual Screening 04/12/2025 04/12/2024 Basic Metabolic Panel 05/15/2025 05/15/2024 , 05/03/2024, 05/02/2024, Additional history exists DTaP,Tdap,and Td Vaccines (2 - Td or Tdap) 01/03/2027 01/03/2017 Zoster Vaccines Completed 07/23/2021, 03/10/2021 Pneumococcal Vaccine: 50+ Years Completed 2 HIV Screening Completed 04/17/2024 Hepatitis C Screening Completed 04/17/2024 Alcohol/Substance Use Screening Completed 5 Medical Devices Implanted Type Area Software Sales Manager Device Identifier Shelf Expiration Date Model / Serial / Lot Stent Biliary Rx Fully Covered Self Expanding Metallic Rmv With Permalume Covering 8.5fr [id number] Wallflex - [id number] Implanted:Qty: 1 on 04/29/2024 by Rachel Murray MD at [facility] Stent N/A: Bile Duct [employer] 12/27/2025 [id number] / / [id number] Stent Biliary Double Pigtail Polyethylene Purple 7fr 5cm Zimmon - [id number] - [id number] Implanted:Qty: 1 on 05/02/2024 by Rachel Murray MD at [facility] Stent N/A: Bile Duct [employer] 06/28/2025 [id number] / [id number] / [id number] Description:PLACED IN CYSTIC DUCT Stent Biliary Double Pigtail W/Introducer 10fr 4cm Solus - [id number] - [id number] Implanted:Qty: 1 on 05/02/2024 by Rachel Murray MD at [facility] Stent N/A: Bile Duct [employer] 05/02/2025 [id number] / [id number] / Description:PLACED IN CBD Explanted Type Area Software Sales Manager Device Identifier Shelf Expiration Date Model / Serial / Lot Stent Advanix Pancreatic Pigtail Lb 5fr X 7cm - [id number] - [id number] Explanted:Qty: 1 on 04/29/2024 by Rachel Murray MD at [facility] Stent [employer] 04/09/2025 [id number] / [id number] / [id number] Procedures * Due to [place] state law, this organization might not be sharing negative HIV tests. Procedure Name Priority Date/Time Associated Diagnosis Comments IR PARACENTESIS DIAGNOSTIC AND THERAPEUTIC Routine 05/23/2024 11:49 AM EST Alcoholic cirrhosis of liver with ascites (CMS/HCC) (HCC) CELL COUNT W/DIFFERENTIAL, PERITONEAL Routine 05/23/2024 11:16 AM EST Alcoholic cirrhosis of liver with ascites (CMS/HCC) (HCC) PROTEIN, BODY FLUID Routine 05/23/2024 11:16 AM EST Alcoholic cirrhosis of liver with ascites (CMS/HCC) (HCC) LACTATE DEHYDROGENASE, BODY FLUID Routine 05/23/2024 11:16 AM EST Alcoholic cirrhosis of liver with ascites (CMS/HCC) (HCC) GLUCOSE, BODY FLUID Routine 05/23/2024 11:16 AM EST Alcoholic cirrhosis of liver with ascites (CMS/HCC) (HCC) BILIRUBIN, BODY FLUID Routine 05/23/2024 11:16 AM EST Alcoholic cirrhosis of liver with ascites (CMS/HCC) (HCC) STAT GRAM STAIN Routine 05/23/2024 11:16 AM EST Alcoholic cirrhosis of liver with ascites (CMS/HCC) (HCC) (DO NOT ORDER) ANAEROBIC CULTURE-QML Routine 05/23/2024 11:16 AM EST Alcoholic cirrhosis of liver with ascites (CMS/HCC) (HCC) (DO NOT ORDER) AEROBIC CULTURE-QML Routine 05/23/2024 11:16 AM EST Alcoholic cirrhosis of liver with ascites (CMS/HCC) (HCC) SMEAR REVIEW Routine 05/15/2024 3:29 PM EST Alcoholic cirrhosis of liver with ascites (CMS/HCC) (HCC) COMPREHENSIVE METABOLIC PANEL Routine 3:29 PM EST Alcoholic cirrhosis of liver with ascites (CMS/HCC) (HCC) CBC AUTO DIFFERENTIAL Routine 05/15/2024 3:29 PM EST Alcoholic cirrhosis of liver with ascites (CMS/HCC) (HCC) PROTIME-INR Routine 05/15/2024 3:29 PM EST Alcoholic cirrhosis of liver with ascites (CMS/HCC) (HCC) IR PARACENTESIS DIAGNOSTIC AND THERAPEUTIC Routine 05/15/2024 3:00 PM EST Alcoholic cirrhosis of liver with ascites (CMS/HCC) (HCC) IR PARACENTESIS DIAGNOSTIC AND THERAPEUTIC Routine 05/09/2024 11:07 AM EST Alcoholic cirrhosis of liver with ascites (CMS/HCC) (HCC) CELL COUNT W/DIFFERENTIAL, PERITONEAL Routine 05/09/2024 10:33 AM EST Alcoholic cirrhosis of liver with ascites (CMS/HCC) (HCC) PROTEIN, BODY FLUID Routine 05/09/2024 10:33 AM EST Alcoholic cirrhosis of liver with ascites (CMS/HCC) (HCC) LACTATE DEHYDROGENASE, BODY FLUID Routine 05/09/2024 10:33 AM EST Alcoholic cirrhosis of liver with ascites (CMS/HCC) (HCC) GLUCOSE, BODY FLUID Routine 05/09/2024 10:33 AM EST Alcoholic cirrhosis of liver with ascites (CMS/HCC) (HCC) STAT GRAM STAIN Routine 05/09/2024 10:33 AM EST Alcoholic cirrhosis of liver with ascites (CMS/HCC) (HCC) (DO NOT ORDER) ANAEROBIC CULTURE-QML Routine 05/09/2024 10:33 AM EST Alcoholic cirrhosis of liver with ascites (CMS/HCC) (HCC) (DO NOT ORDER) AEROBIC CULTURE-QML Routine 05/09/2024 10:33 AM EST Alcoholic cirrhosis of liver with ascites (CMS/HCC) (HCC) BODY FLUID CULTURE W/STAT GRAM STAIN Routine 05/09/2024 10:33 AM EST Alcoholic cirrhosis of liver with ascites (CMS/HCC) (HCC) HEPATIC FUNCTION PANEL Routine 3:18 AM EST PROTIME-INR Routine 05/03/2024 3:18 AM EST CBC AUTO DIFFERENTIAL Routine 05/03/2024 3:18 AM EST MAGNESIUM Routine 05/03/2024 3:18 AM EST BASIC METABOLIC PANEL Routine 05/03/2024 3:18 AM EST FL C-ARM ERCP IN OR NON-REPORTABLE Routine 05/02/2024 4:31 PM EST Cholecystitis IN ERCP DX COLLECTION SPECIMEN BRUSHING/WASHING 05/02/2024 1:54 PM EST TYPE AND SCREEN Routine 05/02/2024 9:21 AM EST MANUAL DIFFERENTIAL Routine 05/02/2024 4:11 AM EST CBC AUTO DIFFERENTIAL Routine 05/02/2024 4:11 AM EST HEPATIC FUNCTION PANEL Routine 4:10 AM EST PROTIME-INR Routine 05/02/2024 4:10 AM EST MAGNESIUM Routine 05/02/2024 4:10 AM EST BASIC METABOLIC PANEL Routine 05/02/2024 4:10 AM EST ENDOSCOPIC RETROGRADE CHOLANGIOPANCREATOGRAPHY 05/02/2024 HEPATIC FUNCTION PANEL Routine 3:51 AM EST PROTIME-INR Routine 05/01/2024 3:51 AM EST CBC AUTO DIFFERENTIAL Routine 05/01/2024 3:51 AM EST MAGNESIUM Routine 05/01/2024 3:51 AM EST BASIC METABOLIC PANEL Routine 05/01/2024 3:51 AM EST SMEAR REVIEW Routine 04/30/2024 2:56 PM EST CBC Timed 04/30/2024 2:56 PM EST MANUAL DIFFERENTIAL Routine 04/30/2024 4:01 AM EST HEPATIC FUNCTION PANEL Routine 4:01 AM EST PROTIME-INR Routine 04/30/2024 4:01 AM EST CBC AUTO DIFFERENTIAL Routine 04/30/2024 4:01 AM EST MAGNESIUM Routine 04/30/2024 4:01 AM EST BASIC METABOLIC PANEL Routine 04/30/2024 4:01 AM EST FL C-ARM ERCP IN OR NON-REPORTABLE Routine 04/29/2024 5:59 PM EST Cholecystitis IN ERCP DX COLLECTION SPECIMEN BRUSHING/WASHING 04/29/2024 4:16 PM EST Cholecystitis IN ABDOM PARACENTESIS DX/THE R W IMAGING GUIDANCE Routine 04/29/2024 1:30 PM EST Spontaneous bacterial peritonitis (HCC) EXTRA CONTAINER, OTHER Routine 10:15 AM EST CELL COUNT W/DIFFERENTIAL, PERITONEAL STAT 04/29/2024 10:15 AM EST STAT GRAM STAIN Routine 04/29/2024 10:15 AM EST (DO NOT ORDER) ANAEROBIC CULTURE-QML Routine 04/29/2024 10:15 AM EST (DO NOT ORDER) AEROBIC CULTURE-QML Routine 04/29/2024 10:15 AM EST BODY FLUID CULTURE W/STAT GRAM STAIN Routine 04/29/2024 10:15 AM EST HEPATIC FUNCTION PANEL Routine 4:30 AM EST PROTIME-INR Routine 04/29/2024 4:30 AM EST CBC AUTO DIFFERENTIAL Routine 04/29/2024 4:30 AM EST MAGNESIUM Routine 04/29/2024 4:30 AM EST BASIC METABOLIC PANEL Routine 04/29/2024 4:30 AM EST ENDOSCOPIC RETROGRADE CHOLANGIOPANCREATOGRAPHY 04/29/2024 HEPATIC FUNCTION PANEL Routine 12:16 PM EST MAGNESIUM Routine 04/28/2024 12:16 PM EST BASIC METABOLIC PANEL Routine 04/28/2024 12:16 PM EST PROTIME-INR Routine 04/28/2024 5:40 AM EST CBC AUTO DIFFERENTIAL Routine 04/28/2024 5:30 AM EST US ABDOMEN SINGLE ORGAN STAT 04/27/19 11:23 PM EST HEPATIC FUNCTION PANEL Routine 5:00 AM EST PROTIME-INR Routine 04/27/2024 5:00 AM EST CBC AUTO DIFFERENTIAL Routine 04/27/2024 5:00 AM EST MAGNESIUM Routine 04/27/2024 5:00 AM EST BASIC METABOLIC PANEL Routine 04/27/2024 5:00 AM EST VANCOMYCIN, TROUGH Timed 04/26/2024 7:55 AM EST SMEAR REVIEW Routine 04/26/2024 5:01 AM EST LACTIC ACID, PLASMA Routine 04/26/2024 5:01 AM EST HEPATIC FUNCTION PANEL Routine 5:01 AM EST PROTIME-INR Routine 04/26/2024 5:01 AM EST CBC AUTO DIFFERENTIAL Routine 04/26/2024 5:01 AM EST MAGNESIUM Routine 04/26/2024 5:01 AM EST BASIC METABOLIC PANEL Routine 04/26/2024 5:[address] 3 PHASE LIVER MASS WITH PELVIS STAT 04/25/2024 1:39 PM EST LACTIC ACID, PLASMA STAT 04/25/2024 11:31 AM EST MRSA/S AUREUS PCR, NASAL STAT 025 6:13 AM EST DURAN TOP, URN Routine 04/25/2024 6:10 AM EST UA/CULTURE REFLEX Routine 04/25/2024 6:10 AM EST URINALYSIS W/REFLEX TO MICROSCOPIC & CULTURE Routine 04/25/2024 6:10 AM EST HEPATIC FUNCTION PANEL Routine 6:09 AM EST PROTIME-INR Routine 04/25/2024 6:09 AM EST CBC AUTO DIFFERENTIAL Routine 04/25/2024 6:09 AM EST MAGNESIUM Routine 04/25/2024 6:09 AM EST BASIC METABOLIC PANEL Routine 04/25/2024 6:09 AM EST LACTIC ACID, PLASMA Timed 04/24/2024 11:39 PM EST XR CHEST 1 VW STAT 04/24/2024 11:12 PM EST LACTIC ACID, PLASMA Timed 04/24/2024 9:18 PM EST BLOOD CULTURE STAT 04/24/2024 6:13 PM EST BLOOD CULTURE STAT 04/24/2024 6:13 PM EST IR PARACENTESIS DIAGNOSTIC AND THERAPEUTIC Routine 04/24/2024 2:25 PM EST Alcoholic cirrhosis of liver with ascites (CMS/HCC) (HCC) BILIRUBIN, BODY FLUID Routine 04/24/2024 2:12 PM EST Alcoholic cirrhosis of liver with ascites (CMS/HCC) (HCC) CELL COUNT W/DIFFERENTIAL, PERITONEAL Routine 04/24/2024 2:12 PM EST Alcoholic cirrhosis of liver with ascites (CMS/HCC) (HCC) PROTEIN, BODY FLUID Routine 04/24/2024 2:12 PM EST Alcoholic cirrhosis of liver with ascites (CMS/HCC) (HCC) LACTATE DEHYDROGENASE, BODY FLUID Routine 04/24/2024 2:12 PM EST Alcoholic cirrhosis of liver with ascites (CMS/HCC) (HCC) GLUCOSE, BODY FLUID Routine 04/24/2024 2:12 PM EST Alcoholic cirrhosis of liver with ascites (CMS/HCC) (HCC) STAT GRAM STAIN Routine 04/24/2024 2:12 PM EST Alcoholic cirrhosis of liver with ascites (CMS/HCC) (HCC) (DO NOT ORDER) ANAEROBIC CULTURE-QML Routine 04/24/2024 2:12 PM EST Alcoholic cirrhosis of liver with ascites (CMS/HCC) (HCC) (DO NOT ORDER) AEROBIC CULTURE-QML Routine 04/24/2024 2:12 PM EST Alcoholic cirrhosis of liver with ascites (CMS/HCC) (HCC) BODY FLUID CULTURE W/STAT GRAM STAIN Routine 04/24/2024 2:12 PM EST Alcoholic cirrhosis of liver with ascites (CMS/HCC) (HCC) SMEAR REVIEW Routine 04/24/2024 1:02 PM EST Alcoholic cirrhosis of liver with ascites (CMS/HCC) (HCC) CBC AUTO DIFFERENTIAL Routine 04/24/2024 1:02 PM EST Alcoholic cirrhosis of liver with ascites (CMS/HCC) (HCC) PROTIME-INR Routine 04/24/2024 1:02 PM EST Alcoholic cirrhosis of liver with ascites (CMS/HCC) (HCC) AFP TUMOR MARKER Routine 04/24/2024 1:02 PM EST Alcoholic cirrhosis of liver with ascites (CMS/HCC) (HCC) COMPREHENSIVE METABOLIC PANEL Routine 1:02 PM EST Alcoholic cirrhosis of liver with ascites (CMS/HCC) (HCC) POCT GLUCOSE Routine 04/18/2024 8:08 PM EST POCT GLUCOSE Routine 04/18/2024 6:25 PM EST ECHOCARDIOGRAM DOBUTAMINE STRESS TEST W/ CONTRAST STAT 04/18/2024 2:49 PM EST POCT GLUCOSE Routine 04/18/2024 9:45 AM EST BASIC METABOLIC PANEL Timed 04/18/2024 5:53 AM EST PROTIME-INR Timed 04/18/2024 5:53 AM EST CBC AUTO DIFFERENTIAL Routine 04/18/2024 5:53 AM EST MAGNESIUM Routine 04/18/2024 5:53 AM EST HEPATIC FUNCTION PANEL Routine 5:53 AM EST POCT GLUCOSE Routine 04/17/2024 8:36 PM EST POCT GLUCOSE Routine 04/17/2024 6:[address] CHEST WO CONTRAST Routine 04/17/2024 4:43 PM EST CK Routine 04/17/2024 4:12 PM EST ALBUMIN, BODY FLUID Routine 04/17/2024 3:53 PM EST CELL COUNT W/DIFFERENTIAL, PERITONEAL Routine 04/17/2024 3:53 PM EST (DO NOT ORDER) ANAEROBIC CULTURE-QML Routine 04/17/2024 3:53 PM EST AEROBIC CULTURE W/GRAM STAIN Routine 3:53 PM EST AEROBIC AND ANAEROBIC CULTUR E W/GRAM STAIN Routine 04/17/2024 3:53 PM EST IN ABDOM PARACENTESIS DX/THE R W IMAGING GUIDANCE Routine 04/17/2024 3:50 PM EST SBP (spontaneous bacterial peritonitis) (HCC) POCT GLUCOSE Routine 04/17/2024 1:51 PM EST IMMUNOFIXATION, SERUM Routine 04/17/2024 9:32 AM EST PSA, TOTAL REFLEX TO FREE Routine 2024 9:32 AM EST TOXOPLASMA GONDII ANTIBODY, IGG Routine 04/17/2024 9:32 AM EST VITAMIN D, 25-HYDROXY, TOTAL , IMMUNOASSAY Routine 04/17/2024 9:32 AM EST VARICELLA ZOSTER ANTIBODY, IGG Routine 04/17/2024 9:32 AM EST RPR (DIAGNOSIS) W/REFLEX TO TITER & TPPA [id number] Routine 04/17/2024 9:32 AM EST RHEUMATOID FACTOR Routine 04/17/2024 9:32 AM EST QUANTIFERON-TB GOLD PLUS, 1 [id number] Routine 04/17/2024 9:32 AM EST PROTEIN ELECTROPHORESIS W/REFLEX TO IMMUNOFIXATION, SERUM Routine 04/17/2024 9:32 AM EST MMR PANEL (MEASLES, MUMPS, RUBELLA), IGG Routine 04/17/2024 9:32 AM EST SMOOTH MUSCLE ANTIBODY SCREE N W/REFLEX TO TITER Routine 04/17/2024 9:32 AM EST HERPES SIMPLEX VIRUS 1&2 ANTIBODY, IGG Routine 04/17/2024 9:32 AM EST HEPATITIS C ANTIBODY W/REFLE X TO HCV RNA, QUANTITATIVE PCR Routine 04/17/2024 9:32 AM EST HEPATITIS B SURFACE ANTIBODY Routine 9:32 AM EST HEPATITIS B SURFACE ANTIGEN W/CONFIRMATION Routine 04/17/2024 9:32 AM EST HEPATITIS B CORE ANTIBODY, TOTAL Routine 04/17/2024 9:32 AM EST HEPATITIS A ANTIBODY, TOTAL Routine 03/27 9:32 AM EST BRANDEE-BERGER VIRUS VCA, IGG Routine 03/27 9:32 AM EST HEMOGLOBIN A1C Routine 04/17/2024 9:32 AM EST CYTOMEGALOVIRUS ANTIBODY, IGG Routine 9:32 AM EST CERULOPLASMIN Routine 04/17/2024 9:32 AM EST CEA Routine 04/17/2024 9:32 AM EST MITOCHONDRIAL ANTIBODY W/REFLEX Routine 04/17/2024 9:32 AM EST MERT SCREEN, IFA, W/REFLEX TO TITER & PATTERN Routine 04/17/2024 9:32 AM EST AFP TUMOR MARKER Routine 04/17/2024 9:32 AM EST [id number] Routine 04/17/2024 9:32 AM EST POCT GLUCOSE Routine 04/17/2024 7:25 AM EST TSH REFLEX FREE T4 Add-On 04/17/2024 6:45 AM EST FERRITIN Add-On 04/17/2024 6:45 AM EST IRON SATURATION Add-On 04/17/2024 6:45 AM EST CHOLESTEROL, TOTAL Add-On 04/17/2024 6:45 AM EST BASIC METABOLIC PANEL Timed 04/17/2024 6:45 AM EST PROTIME-INR Timed 04/17/2024 6:45 AM EST CBC AUTO DIFFERENTIAL Routine 04/17/2024 6:45 AM EST MAGNESIUM Routine 04/17/2024 6:45 AM EST HEPATIC FUNCTION PANEL Routine 6:45 AM EST POCT GLUCOSE Routine 04/16/2024 10:19 PM EST POCT GLUCOSE Routine 04/16/2024 5:52 PM EST POCT GLUCOSE Routine 04/16/2024 11:58 AM EST POCT GLUCOSE Routine 04/16/2024 8:19 AM EST BASIC METABOLIC PANEL Timed 04/16/2024 5:08 AM EST PROTIME-INR Timed 04/16/2024 5:08 AM EST CBC AUTO DIFFERENTIAL Routine 04/16/2024 5:08 AM EST MAGNESIUM Routine 04/16/2024 5:08 AM EST HEPATIC FUNCTION PANEL Routine 5:08 AM EST POCT GLUCOSE Routine 04/15/2024 5:09 PM EST POCT GLUCOSE Routine 04/15/2024 11:50 AM EST POCT GLUCOSE Routine 04/15/2024 7:24 AM EST MANUAL DIFFERENTIAL Routine 04/15/2024 2:11 AM EST BASIC METABOLIC PANEL Timed 04/15/2024 2:11 AM EST PROTIME-INR Timed 04/15/2024 2:11 AM EST CBC AUTO DIFFERENTIAL Routine 04/15/2024 2:11 AM EST MAGNESIUM Routine 04/15/2024 2:11 AM EST HEPATIC FUNCTION PANEL Routine 2:11 AM EST POCT GLUCOSE Routine 04/14/2024 4:09 PM EST POCT GLUCOSE Routine 04/14/2024 11:55 AM EST POCT GLUCOSE Routine 04/14/2024 8:29 AM EST PULM PERFORMED PARACENTESIS Routine 03/27 7:29 AM EST SBP (spontaneous bacterial peritonitis) (HCC) SMEAR REVIEW Routine 04/14/2024 6:24 AM EST BASIC METABOLIC PANEL Timed 04/14/2024 6:24 AM EST BETA D GLUCAN (FUNGITELL) Routine 2024 6:24 AM EST PROTIME-INR Timed 04/14/2024 6:24 AM EST CBC AUTO DIFFERENTIAL Routine 04/14/2024 6:24 AM EST MAGNESIUM Routine 04/14/2024 6:24 AM EST HEPATIC FUNCTION PANEL Routine 6:24 AM EST NON-GYNECOLOGIC CYTOLOGY Routine 025 5:44 PM EST CELL COUNT W/DIFFERENTIAL, PERITONEAL Routine 04/13/2024 5:44 PM EST (DO NOT ORDER) ANAEROBIC CULTURE-QML Routine 04/13/2024 5:44 PM EST AEROBIC CULTURE W/GRAM STAIN Routine 5:44 PM EST AEROBIC AND ANAEROBIC CULTUR E W/GRAM STAIN Routine 04/13/2024 5:44 PM EST TRIGLYCERIDES, BODY FLUID Routine 2024 5:36 PM EST PROTEIN, BODY FLUID Routine 04/13/2024 5:36 PM EST LACTATE DEHYDROGENASE, BODY FLUID Routine 04/13/2024 5:36 PM EST GLUCOSE, BODY FLUID Routine 04/13/2024 5:36 PM EST AMYLASE, BODY FLUID Routine 04/13/2024 5:36 PM EST ALBUMIN, BODY FLUID Routine 04/13/2024 5:36 PM EST BASIC METABOLIC PANEL Timed 04/13/2024 4:51 PM EST BASIC METABOLIC PANEL Timed 04/13/2024 8:22 AM EST POCT GLUCOSE Routine 04/13/2024 8:20 AM EST PROTIME-INR Timed 04/13/2024 4:09 AM EST BASIC METABOLIC PANEL Timed 04/13/2024 4:09 AM EST CBC AUTO DIFFERENTIAL Routine 04/13/2024 4:09 AM EST MAGNESIUM Routine 04/13/2024 4:09 AM EST HEPATIC FUNCTION PANEL Routine 4:09 AM EST BASIC METABOLIC PANEL Timed 04/12/2024 11:56 PM EST POCT GLUCOSE Routine 04/12/2024 8:00 PM EST BASIC METABOLIC PANEL Timed 04/12/2024 7:58 PM EST POCT GLUCOSE Routine 04/12/2024 6:48 PM EST POCT GLUCOSE Routine 04/12/2024 5:52 PM EST POCT GLUCOSE Routine 04/12/2024 4:51 PM EST BASIC METABOLIC PANEL Timed 04/12/2024 4:01 PM EST POCT GLUCOSE Routine 04/12/2024 12:11 PM EST [id number] Timed 04/12/2024 12:09 PM EST BASIC METABOLIC PANEL Timed 04/12/2024 12:09 PM EST POCT GLUCOSE Routine 04/12/2024 8:53 AM EST LACTIC ACID, PLASMA Timed 04/12/2024 8:51 AM EST BASIC METABOLIC PANEL Timed 04/12/2024 8:51 AM EST LACTIC ACID, PLASMA Timed 04/12/2024 5:09 AM EST BASIC METABOLIC PANEL Timed 04/12/2024 5:09 AM EST CBC AUTO DIFFERENTIAL Routine 04/12/2024 5:09 AM EST MAGNESIUM Routine 04/12/2024 5:09 AM EST HEPATIC FUNCTION PANEL Routine 5:09 AM EST POCT GLUCOSE Routine 04/12/2024 3:06 AM EST BASIC METABOLIC PANEL STAT 04/12/2024 1:[address] ABDOMEN PELVIS WO CONTRAST STAT 10:01 PM EST BASIC METABOLIC PANEL STAT 04/11/2024 9:20 PM EST US ABDOMEN SINGLE ORGAN STAT 04/11/19 9:12 PM EST UREA NITROGEN, RANDOM URINE WITH CREATININE STAT Add-on 04/11/2024 8:27 PM EST OSMOLALITY, URINE STAT Add-on 04/11/2024 8:27 PM EST URINALYSIS W/REFLEX TO MICROSCOPIC (NO CULTURE) STAT 04/11/2024 8:27 PM EST SODIUM, RANDOM URINE STAT 04/11/2024 8:27 PM EST POCT I-STAT LACTATE W/VBG Routine 2024 6:21 PM EST BILIRUBIN, TOTAL STAT 04/11/2024 6:21 PM EST PROTIME-INR STAT 04/11/2024 6:21 PM EST CBC AUTO DIFFERENTIAL STAT 04/11/2024 6:21 PM EST FUNGUS CULTURE, BLOOD STAT 04/11/2024 6:21 PM EST EXTRA CONTAINER, OTHER Routine 6:19 PM EST EXTRA TUBES Routine 04/11/2024 6:19 PM EST XR CHEST 1 VW STAT 04/11/2024 5:58 PM EST BILIRUBIN, BODY FLUID STAT 04/11/2024 5:50 PM EST (DO NOT ORDER) ANAEROBIC CULTURE-QML Routine 04/11/2024 5:50 PM EST AEROBIC CULTURE W/GRAM STAIN Routine 5:50 PM EST AEROBIC AND ANAEROBIC CULTUR E W/GRAM STAIN Routine 04/11/2024 5:50 PM EST PH, BODY FLUID STAT 04/11/2024 5:49 PM EST TRIGLYCERIDES, BODY FLUID STAT 2024 5:49 PM EST LACTATE DEHYDROGENASE, BODY FLUID STAT 04/11/2024 5:49 PM EST GLUCOSE, BODY FLUID STAT 04/11/2024 5:49 PM EST PROTEIN, BODY FLUID STAT 04/11/2024 5:49 PM EST LACTIC ACID, BODY FLUID STAT 04/11/19 5:49 PM EST CELL COUNT W/DIFFERENTIAL, PERITONEAL STAT 04/11/2024 5:49 PM EST MRSA/S AUREUS PCR, NASAL STAT 025 5:48 PM EST ED PARACENTESIS Routine 04/11/2024 5:47 PM EST ACETAMINOPHEN LEVEL Add-On 04/11/2024 5:26 PM EST OSMOLALITY STAT 04/11/2024 5:26 PM EST BLOOD CULTURE STAT 04/11/2024 5:26 PM EST ECG 12-LEAD STAT 04/11/2024 5:17 PM EST POCT GLUCOSE Routine 04/11/2024 5:16 PM EST BLOOD CULTURE HOLD BOTTLES SET #1 STAT 04/11/2024 5:01 PM EST BLOOD CULTURE HOLD (EAP PANE L FOR BLOOD CULTURE BOTTLES) STAT Add-on 04/11/2024 5:01 PM EST LIPASE STAT 04/11/2024 5:01 PM EST HEPATIC FUNCTION PANEL STAT 5:01 PM EST BASIC METABOLIC PANEL STAT 04/11/2024 5:01 PM EST TYPE AND SCREEN STAT 04/11/2024 5:01 PM EST BLOOD CULTURE STAT 04/11/2024 5:01 PM EST RAPID COVID-19 RNA FOR SURVEILLANCE (ED ONLY) STAT 04/11/2024 5:00 PM EST ED POCUS ABDOMINAL SINGLE ORGAN Routine 04/11/2024 4:35 PM EST MANUAL DIFFERENTIAL STAT 04/11/2024 2:45 PM EST Alcoholic cirrhosis of liver with ascites (CMS/HCC) (HCC) COMPREHENSIVE METABOLIC PANEL STAT 2:45 PM EST Alcoholic cirrhosis of liver with ascites (CMS/HCC) (HCC) PROTIME-INR STAT 04/11/2024 2:45 PM EST Alcoholic cirrhosis of liver with ascites (CMS/HCC) (HCC) CBC AUTO DIFFERENTIAL STAT 04/11/2024 2:45 PM EST Alcoholic cirrhosis of liver with ascites (CMS/HCC) (HCC) BLOOD CULTURE STAT 04/11/2024 2:45 PM EST Alcoholic cirrhosis of liver with ascites (CMS/HCC) (HCC) HEART & VASCULAR - SCANNED 04/11/2024 CBC AUTO DIFFERENTIAL Routine 03/18/2024 10:52 AM EST Encounter for pre-transplant evaluation for liver transplant PROTIME-INR Routine 03/18/2024 10:52 AM EST Encounter for pre-transplant evaluation for liver transplant AFP TUMOR MARKER Routine 03/18/2024 10:52 AM EST Encounter for pre-transplant evaluation for liver transplant COMPREHENSIVE METABOLIC PANEL Routine 10:52 AM EST Encounter for pre-transplant evaluation for liver transplant [id number] Routine 03/18/2024 10:52 AM EST Encounter for pre-transplant evaluation for liver transplant from Last 3 Months Results * Due to [place] state law, this organization might not be sharing negative HIV tests. * IR Paracentesis Diagnostic and Therapeutic (05/23/2024 11:49 AM EST) Only the most recent of4 resultswithin the time period is included. Anatomical Region Laterality Modality Body X-Ray Angiograph y Impressions 05/27/2024 11:30 AM EST Diagnostic and therapeutic paracentesis performed via left upper quadrant. 600 mls of serous fluid was aspirated and discarded. Samples of the fluid were sent for laboratory assays. ?? 05/23/2024 11:45 AM JULIANE Coleman Narrative 05/27/2024 11:30 AM EST Interventional Radiology Brief Postprocedure Note PROCEDURE: Diagnostic and therapeutic paracentesis. INDICATION: ??63 y.o. year old male with alcohol cirrhosis and recurrent ascites. ATTENDING: Dr. Johnson has been made aware of the patient's condition and indication for procedure, agrees with procedure to be performed, and was on site and immediately available to provide assistance and guidance throughout the procedure. TELEVISION PRODUCTION CLERK: JULIANE Coleman SEDATION: None DURATION: ??30 minutes MEDICATIONS: 1. Lidocaine 1% for local anesthesia. GUIDANCE: Ultrasound. COMPLICATIONS: None PROCEDURE DESCRIPTION: Informed consent was obtained from the health care proxy/guardian after discussion of risks, benefits, and alternatives. Maximal sterile barrier technique and sterile ultrasound technique was used for the entire procedure. A timeout was performed. After local anesthesia with lidocaine, a 6F Centeze needle catheter was advanced into a pocket of ascites in the left upper quadrant under sonographic guidance. An ultrasound image was stored for the permanent record. serous fluid was aspirated. Samples of the fluid were sent for laboratory assays. ??The catheter was then removed and hemostasis was obtained at the puncture site with manual compression. A sterile dressing was applied. The patient tolerated the procedure well. FINDINGS: Targeted ultrasound of the abdomen showed small volume loculated ascites. ?? Diagnostic and therapeutic paracentesis performed via left lower quadrant. 600 mls of serous fluid was aspirated and discarded. Samples of the fluid were sent for laboratory assays. Mike Low MD IMG IR PROCEDURES Final Result * Bilirubin, Body Fluid (05/23/2024 11:16 AM EST) Only the most recent of3 resultswithin the time period is included. Bilirubin, Fluid 1.3 mg/dL 05/23/19 25 1:22 PM EST [facility] Comment: No reference range available. This test was developed and its performance characteristics determined by [facility] Clinical [facility]. FD has not approved or cleared this test. FDA clearance or approval is not currently required for clinical use. The results are not intended to be used as the sole means for clinical diagnosis or patient management decisions. Body Fluid Peritoneal cavity structure / Unknown 05/23/2024 11:16 AM EST 05/23/2024 11:32 AM EST Mike Low MD LAB BODY FLUIDS AND STOO LS ORDERABLES Final Result [facility] [address] [place] [address], [place] * (ABNORMAL) Cell Count w/Differential, Peritoneal (05/23/2024 11:16 AM EST) Only the most recent of7 resultswithin the time period is included. Color, Peritoneal Straw Colorless, Yellow, Straw 05/23/2024 12:35 PM EST [facility] Appearance, Peritoneal Cloudy(A ) Clear 05/23/2024 12:35 PM EST [facility] TNC/WBC, Peritoneal 303(H) <=250 cells/mm3 05/23/2024 12:35 PM EST [facility] Comment:Values of TNC <=250 do not rule out abnormality. Clinical correlation is advised. RBC, Peritoneal 6,000 Not established cells/mm3 05/23/2024 12:35 PM EST [facility] Lymphocytes %, Peritoneal 71 % 05/23/2024 12:35 PM EST [facility] [place]/Macrophage %, Peritoneal 29 % 05/23/2024 12:35 PM EST [facility] Differential Cells Counted, Peritoneal 05/23/2024 12:35 PM EST [facility] Body Fluid Peritoneal cavity structure / Unknown 05/23/2024 11:16 AM EST 05/23/2024 11:32 AM EST Comment:HCC asities us Mike Low MD LAB BODY FLUIDS AND STOO LS ORDERABLES Final Result Performing Organization Address City/[facility]/ZIP Co de Phone Number [facility] [address] [place] [address], [place] * STAT Gram Stain (05/23/2024 11:16 AM EST) Only the most recent of4 resultswithin the time period is included. Gram Stain, STAT No organisms seen 05/23/2024 2:10 PM EST [facility] Gram Stain, STAT 1+ Mononuclear Cells 05/23/2024 2:10 PM EST [facility] Body Fluid Peritoneal cavity structure / Unknown 05/23/2024 11:16 AM EST 05/23/2024 11:32 AM EST us Mike Low MD LAB MICROBIOLOGY - GENER AL ORDERABLES Final Result Performing Organization Address [facility] Co de Phone Number [facility] [address] [place] [phone], [place] * Protein, Body Fluid (05/23/2024 11:16 AM EST) Only the most recent of5 resultswithin the time period is included. Protein, Fluid 2.9 g/dL 05/23/2024 1:09 PM EST [facility] Comment: No reference range available. This test was developed and its performance characteristics determined by [facility] Clinical Labs. FDA has not approved or cleared this test. FDA clearance or approval is not currently required for clinical use. The results are not intended to be used as the sole means for clinical diagnosis or patient management decisions. Body Fluid Peritoneal cavity structure / Unknown 05/23/2024 11:16 AM EST 05/23/2024 11:32 AM EST Comment:HCC asities Mike Low MD LAB BODY FLUIDS AND STOO LS ORDERABLES Final Result Performing Organization Address [facility] de Phone Number [facility] [address] [place] [address], [place] * Lactate Dehydrogenase, Body Fluid (05/23/2024 11:16 AM EST) Only the most recent of5 resultswithin the time period is included. LDH, Fluid 104 U/L 05/23/2024 1:09 PM EST [facility] Comment: No reference range available. This test was developed and its performance characteristics determined by [facility] Clinical Labs. [employer] has not approved or cleared this test. FDA clearance or approval is not currently required for clinical use. The results are not intended to be used as the sole means for clinical diagnosis or patient management decisions. Body Fluid Peritoneal cavity structure / Unknown 05/23/2024 11:16 AM EST 05/23/2024 11:32 AM EST Comment:[facility] asities Mike Low MD LAB BODY FLUIDS AND STOO LS ORDERABLES Final Result Performing Organization Address [facility] de Phone Number [facility] [address] [place] [phone], [place] * Glucose, Body Fluid (05/23/2024 11:16 AM EST) Only the most recent of5 resultswithin the time period is included. Glucose, Fluid 86 mg/dL 05/23/2024 1:09 PM EST [facility] Comment: No reference range available. This test was developed and its performance characteristics determined by [facility] Clinical Labs. [employer] has not approved or cleared this test. FDA clearance or approval is not currently required for clinical use. The results are not intended to be used as the sole means for clinical diagnosis or patient management decisions. Body Fluid Peritoneal cavity structure / Unknown 05/23/2024 11:16 AM EST 05/23/2024 11:32 AM EST Comment:HCC asities Mike Low MD LAB BODY FLUIDS AND STOO LS ORDERABLES Final Result Performing Organization Address [facility] Co de Phone Number [facility] [address] [place] [address], [place] * (ABNORMAL) Smear Review (05/15/2024 3:29 PM EST) Only the most recent of5 resultswithin the time period is included. Platelet Estimate Decreased (A) Adequate 05/15/2024 4:21 PM EST [facility] RBC Morphology Normal Normal, No clinically significant RBC morphology present (ICSH guidelines, 2015). 05/15/2024 4:21 PM EST [facility] Blood Structure of peripheral vein / Unknown Venipuncture / Unknown 05/15/2024 3:29 PM EST 05/15/2024 3:47 PM EST Mike Low MD LAB BLOOD ORDERABLES Fin al Result Performing Organization Address City/[facility]/ZIP Co de Phone Number [facility] [address] [place] [address], [place] * (ABNORMAL) CBC Auto Differential (05/15/2024 3:29 PM EST) Only the most recent of21 resultswithin the time period is included. WBC 7.0 3.8 - 10.8 10*3/uL 05/15/2024 4:21 PM EST [facility] RBC 3.76(L) 4.20 - 5.80 10*6/uL 05/15/2024 4:21 PM EST [facility] Hemoglobin 11.9(L) 13.2 - 17.1 g/dL 05/15/2024 4:21 PM EST [facility] Hematocrit 35.2(L) 38.5 - 50.0 % 05/15/2024 4:21 PM EST [facility] MCV 93.6 80.0 - 100.0 fL 05/15/2024 4:21 PM EST [facility] MCH 31.6 27.0 - 33.0 pg 05/15/2024 4:21 PM EST [facility] MCHC 33.8 32.0 - 36.0 g/dL 05/15/2024 4:21 PM EST [facility] RDW 18.1(H) 11.0 - 15.0 % 05/15/2024 4:21 PM EST [facility] Platelets 119(L) 140 - 400 10*3/uL 05/15/2024 4:21 PM EST [facility] MPV 9.7 7.5 - 12.5 fL 05/15/2024 4:21 PM EST [facility] Neutrophil % 67.8 % 05/15/2024 4:21 PM EST [facility] Immature Grans % 0.3 0.0 - 0.9 % 05/15/2024 4:21 PM EST [facility] Lymphocyte % 17.8 % 05/15/2024 4:21 PM EST [facility] Monocyte % 12.8 % 05/15/2024 4:21 PM EST [facility] Eosinophil % 0.7 % 05/15/2024 4:21 PM EST [facility] Basophil % 0.6 % 05/15/2024 4:21 PM EST [facility] Neutrophil # 4.74 1.50 - 7.80 10*3/uL 05/15/2024 4:21 PM EST [facility] Immature Grans # <0.03 <=0.03 10*3/uL 05/15/2024 4:21 PM EST [facility] Lymphocyte # 1.20 0.85 - 3.90 10*3/uL 05/15/2024 4:21 PM EST [facility] Monocyte # 0.90 0.20 - 0.95 10*3/uL 05/15/2024 4:21 PM EST [facility] Eosinophil # 0.10 0.02 - 0.50 10*3/uL 05/15/2024 4:21 PM EST [facility] Basophil # <0.03 0.00 - 0.20 10*3/uL 05/15/2024 4:21 PM EST [facility] nRBC % 0.0 /100 WBCs 05/15/2024 4:21 PM EST [facility] nRBC # <0.01 <0.01 10*3/uL 05/15/2024 4:21 PM EST [facility] Blood Structure of peripheral vein / Unknown Venipuncture / Unknown 05/15/2024 3:29 PM EST 05/15/2024 3:47 PM EST us Mike Low MD LAB BLOOD ORDERABLES Fin al Result [facility] LABORATORY [address] [place] [phone], * (ABNORMAL) Protime-INR (05/15/2024 3:29 PM EST) Only the most recent of20 resultswithin the time period is included. PT 15.8(H) 9.6 - 12.4 Seconds 05/15/2024 4:12 PM EST [facility] INR 1.5 0.9 - 1.1 05/15/2024 4:12 PM EST [facility] Comment:The optimal therapeu tic INR range for patients treated with Vitamin K antagonists (VKAS, e.g., Warfarin) is 2.0 to 3.5. Discuss the desired range with your doctor/care team. Blood Structure of peripheral vein / Unknown Venipuncture / Unknown 05/15/2024 3:29 PM EST 05/15/2024 3:47 PM EST Mike Low MD LAB BLOOD ORDERABLES Fin al Result [employer] [facility] [address] [place] [address], * (ABNORMAL) Comprehensive Metabolic Panel (05/15/2024 3:29 PM EST) Only the most recent of4 resultswithin the time period is included. NA 135 135 - 145 mmol/L 05/15/2024 4:20 PM EST [facility] K 3.6 3.5 - 5.3 mmol/L 05/15/2024 4:20 PM EST [facility] Cl 101 98 - 107 mmol/L 05/15/2024 4:20 PM EST [facility] CO2 20(L) 22 - 32 mmol/L 05/15/2024 4:20 PM EST [facility] Anion Gap 14 5 - 15 05/15/2024 4:20 PM EST [facility] Glucose 107(H) 65 - 99 mg/dL 05/15/2024 4:20 PM EST [facility] Creatinine 0.63 0.60 - 1.30 mg/dL 05/15/2024 4:20 PM EST [facility] Calcium 8.7 8.6 - 10.5 mg/dL 05/15/2024 4:20 PM EST [facility] Total Protein 7.1 6.0 - 8.0 g/dL 05/15/2024 4:20 PM EST [facility] Albumin 3.2(L) 3.5 - 5.2 g/dL 05/15/2024 4:20 PM EST [facility] Bilirubin, Total 2.9(H) 0.2 - 1.2 mg/dL 05/15/2024 4:20 PM EST [facility] Alkaline Phosphatase 153(H) 35 - 129 U/L 05/15/2024 4:20 PM EST [facility]METhe [facility]RI[facility] LAB[facility] AST 46(H) 10 - 40 U/L 05/15/2024 4:20 PM EST [facility] ALT 27 10 - 40 U/L 05/15/2024 4:20 PM EST [facility] BUN 9 7 - 23 mg/dL 05/15/2024 4:20 PM EST [facility] eGFR >90 >=60 mL/min/1. 73m2 05/15/2024 4:20 PM EST [facility] Comment:The estimated glomer ular [...] of Race in Diagnosing Kidney Disease . Globulin, Total 3.9 2.1 - 4.2 g/dL 05/15/2024 4:20 PM EST [facility] A/G Ratio 0.8(L) 1.5 - 3.0 05/15/2024 4:20 PM EST [facility] Blood Structure of peripheral vein / Unknown Venipuncture / Unknown 05/15/2024 3:29 PM EST 05/15/2024 3:47 PM EST Mike Low MD LAB BLOOD ORDERABLES Fin al Result [facility] LAB[facility] [address] [place] [address], [place] * Anaerobic Culture (05/09/2024 10:33 AM EST) Only the most recent of6 resultswithin the time period is included. Culture No anaerobes isolated. 05/15/2024 9:59 AM EST [employer] [facility] Body Fluid Peritoneal cavity structure / Unknown 05/09/2024 10:33 AM EST Comment:ascites Narrative [facility] - 05/15/2024 9:59 AM EST [facility] Received Date: MICRO NUMBER: [id number] SPECIMEN QUALITY: Adequate SOURCE: BODY FLUID PERITONEAL STATUS: FINAL us Mike Low MD LAB MICROBIOLOGY - GENER AL ORDERABLES Final Result Performing Organization Address City/[facility]/ZIP Co de Phone Number [facility] [address], [place] [address], [place] [phone] [facility] [address], [place] [address], [place] [phone] * Body Fluid Aerobic Culture (05/09/2024 10:33 AM EST) Only the most recent of3 resultswithin the time period is included. Culture No growth 05/15/2024 7:58 AM EST [facility] Body Fluid Peritoneal cavity structure / Unknown 05/09/2024 10:33 AM EST Comment:ascites Narrative [facility] - 05/15/2024 7:58 AM EST [facility] Received Date:[id number] MICRO NUMBER: [id number] SPECIMEN QUALITY: Adequate SOURCE: BODY FLUID PERITONEAL STATUS: FINAL us Mike Low MD LAB MICROBIOLOGY - GENER AL ORDERABLES Final Result [facility] [address] [facility] [address] [facility], [place] [address], [place] [phone] [employer] [address], [place] [address], [place] [phone] * Magnesium (05/03/2024 3:18 AM EST) Only the most recent of16 resultswithin the time period is included. Pathologist [facility] MG 1.8 1.6 - 2.4 mg/dL 05/03/2024 4:12 AM EST [facility] Blood Structure of peripheral vein / Unknown Venipuncture / Unknown 05/03/2024 3:18 AM EST 05/03/2024 3:41 AM EST us Rachel Murray MD LAB BLOOD ORDERABLES Final Resul t [facility] [address] [place] [address], * (ABNORMAL) Hepatic function panel (05/03/2024 3:18 AM EST) Only the most recent of17 resultswithin the time period is included. Pathologist [facility] Total Protein 6.1 6.0 - 8.0 g/dL 05/03/2024 4:12 AM EST [facility] Albumin 3.0(L) 3.5 - 5.2 g/dL 05/03/2024 4:12 AM EST [facility] Globulin, Total 3.1 2.1 - 4.2 g/dL 05/03/2024 4:12 AM EST [facility] Bilirubin, Total 2.4(H) 0.2 - 1.2 mg/dL 05/03/2024 4:12 AM EST [facility] Bilirubin, Direct 1.4(H) <=0.4 mg/dL 05/03/2024 4:12 AM EST [facility] Alkaline Phosphatase 181(H) 35 - 129 U/L 05/03/2024 4:12 AM EST [facility] AST 69(H) 10 - 40 U/L 05/03/2024 4:12 AM EST [facility] ALT 47(H) 10 - 40 U/L 05/03/2024 4:12 AM EST [facility] Bilirubin, Indirect 1.00(H) <=0.70 mg/dL 05/03/2024 4:12 AM EST [facility] A/G Ratio 1.0(L) 1.5 - 3.0 05/03/2024 4:12 AM EST [facility] Blood Structure of peripheral vein / Unknown Venipuncture / Unknown 05/03/2024 3:18 AM EST 05/03/2024 3:41 AM EST us Rachel Murray MD LAB BLOOD ORDERABLES Final Resul t [facility] [address] [place] [phone], * (ABNORMAL) Basic Metabolic Panel (05/03/2024 3:18 AM EST) Only the most recent of26 resultswithin the time period is included. NA 135 135 - 145 mmol/L 05/03/2024 4:12 AM EST [facility] K 3.7 3.5 - 5.3 mmol/L 05/03/2024 4:12 AM EST [facility] Cl 105 98 - 107 mmol/L 05/03/2024 4:12 AM EST [facility] CO2 21(L) 22 - 32 mmol/L 05/03/2024 4:12 AM EST [facility] BUN 14 7 - 23 mg/dL 05/03/2024 4:12 AM EST [facility] Creatinine 0.60 0.60 - 1.30 mg/dL 05/03/2024 4:12 AM EST [facility] Glucose 113(H) 65 - 99 mg/dL 05/03/2024 4:12 AM EST [facility] Calcium 8.2(L) 8.6 - 10.5 mg/dL 05/03/2024 4:12 AM EST [facility] PATHOLOG[facility] LAB[facility] Anion Gap 9 5 - 15 05/03/2024 4:12 AM EST [facility] eGFR >90 >=60 mL/min/1. 73m2 05/03/2024 4:12 AM EST [facility] Comment:The estimated glomer ular [...] MD LAB BLOOD ORDERABLES Final Resul t [facility] LAB[facility] [address] [place] [address], * [place] C-Arm ERCP in [place] NONREPORTABLE (05/02/2024 4:31 PM EST) Only the most recent of2 resultswithin the time period is included. Narrative IMAGING - 05/02/2024 4:35 PM EST This procedure does not contain a result. Please see the surgeon's note for official report. us Rachel Murray MD IMG FLUOROSCOPY PROCEDURES Final Result IMAGING * Type and screen (05/02/2024 9:21 AM EST) Only the most recent of2 resultswithin the time period is included. ABO Blood Type B 05/02/2024 10:29 AM EST [facility] RH Type Positive 05/02/2024 10:29 AM EST [facility] Expiration Date/Time 2024-05-05 23:59 05/02/2024 10:29 AM EST [facility] Antibody Screen Negative 05/02/2024 10:29 AM EST [facility] Blood Structure of peripheral vein / Unknown Venipuncture / Unknown 05/02/2024 9:21 AM EST 05/02/2024 9:36 AM EST Delmis Joseph MD LAB BLOOD BANK TEST ORDERAB LES Edited Result - Final [facility] [address] [place] [address], [place] [phone] * (ABNORMAL) Manual Differential (05/02/2024 4:11 AM EST) Only the most recent of4 resultswithin the time period is included. Neutrophil %, Manual 86 % 05/02/2024 5:24 [...] - 3.90 10*3/uL 05/02/2024 5:24 AM EST [facility] Monocyte #, Manual 0.16(L) 0.20 - 0.95 10*3/uL 05/02/2024 5:24 AM EST [facility] Eosinophil #, Manual 0.00(L) 0.02 - 0.50 10*3/uL 05/02/2024 5:24 AM EST [facility]ENTER[facility]Stack[facility] CLINICAL PATHOLOGY LABORATORY Basophil #, Manual 0.00 0.00 - 0.20 10*3/uL 05/02/2024 5:24 AM EST [facility] [place] [facility] Platelet Estimate Decrease d(A) Adequate 05/02/2024 5:24 AM EST [facility] [place] [facility] RBC Morphology Present( A) Normal, No clinically significant RBC morphology present (ICSH guidelines, 2015). 05/02/2024 5:24 AM EST [facility] [place] [facility] Chrissie Cells 2+(A) Not Present 05/02/2024 5:24 AM EST [facility] [place] [facility] Total Cells Counted 115 05/02/2024 5:24 AM EST [facility] [employer] CLINICAL PATHOLOGY LABORATORY Blood Structure of peripheral vein / Unknown Venipuncture / Unknown 05/02/2024 4:11 AM EST 05/02/2024 4:30 AM EST us Rachel Murray MD LAB BLOOD ORDERABLES Final Resul t [facility] [place] CLINICAL PATHOLOGY LABORATORY [address] [place] [address], [place] * ENDOSCOPIC RETROGRADE CHOLANGIOPANCREATOGRAPHY (05/02/2024) Narrative Procedure Note Rachel Murray MD - 05/02/2024 1:19 PM EST [facility] Gastro[facility] Patient Name: Nate Correa Procedure Date: 05/02/2024 1:19 PM Date of : 1960 Admit Type: Inpatient Age: 63 Room: [place] [address] Gender: Male Note Status: Finalized Attending MD: [...] stent and PCT were visible on the lathe winder film. The esophagus was successfully intubated under [...] 0 Note Initiated On: 05/02/2024 1:19 PM Rachel Murray MD PROVATION PROCEDURES Final Resul t * (ABNORMAL) CBC (04/30/2024 2:56 PM EST) WBC 8.0 3.8 - 10.8 10*3/uL 04/30/2024 3:56 PM EST [facility] CLINICAL PATHOLOG[facility] LABORAT[facility] RBC 3.67(L) 4.20 - 5.80 10*6/uL 04/30/2024 3:56 PM EST [facility] CLINICAL [facility] LAB[facility]AT[facility] Hemoglobin 11.6(L) 13.2 - 17.1 g/dL 04/30/2024 3:56 PM EST [facility] CLINICAL [facility]OLOG[facility] LABORATORY Hematocrit 34.3(L) 38.5 - 50.0 % 04/30/2024 3:56 PM EST [facility] [place] [facility] MCV 93.5 80.0 - 100.0 fL 04/30/2024 3:56 PM EST [facility] MCH 31.6 27.0 - 33.0 pg 04/30/2024 3:56 PM EST [facility] [place] [facility] MCHC 33.8 32.0 - 36.0 g/dL 04/30/2024 3:56 PM EST [facility] [place] [facility] RDW 16.5(H) 11.0 - 15.0 % 04/30/2024 3:56 PM EST [facility] [place] [facility] Platelets 98(L) 140 - 400 10*3/uL 04/30/2024 3:56 PM EST [facility] [place] [facility] MPV 10.6 7.5 - 12.5 fL 04/30/2024 3:56 PM EST [facility] [place] [facility] Comment:A smear review has b een added. Clinician review and interpretation will be needed once the report is final. Blood Structure of peripheral vein / Unknown Venipuncture / Unknown 04/30/2024 2:56 PM EST 04/30/2024 3:07 PM EST us Delmis Joseph MD LAB BLOOD ORDERABLES Final Result [facility] [place] CLINICAL PATHOLOGY LABORATORY [address] [place] [address], [place] * IN ABDOM PARACENTESIS DX/THER W IMAGING GUIDANCE (04/29/2024 [...] ??Patient's understanding of procedure matches consent: ??Yes Stanton Protocol: ??Procedure consent matches procedure scheduled: ??Yes [...] Dr. Jazlyn Bliss. Loculations noted on US. us Delmis Joseph MD IN CLINIC/BEDSIDE ORDERABLE S Final Result * Extra Container, Other (04/29/2024 10:15 AM EST) Only the most recent of2 resultswithin the time period is included. Extra Tube Hold for add-ons. 04/29/2024 6:05 PM EST [facility] CLINICAL PATHOLOG[facility] LABORATORY Comment:Auto resulted. Blood Structure of peripheral vein / Unknown 04/29/2024 10:15 AM EST 04/29/2024 1:05 PM EST us Delmis Joseph MD LAB BLOOD ORDERABLES Final Result [facility] CL[facility]OLOG[facility] LABORATORY [address] [place] [address], [place] * ENDOSCOPIC RETROGRADE CHOLANGIOPANCREATOGRAPHY (04/29/2024) Narrative Procedure Note Rachel Murray MD - 04/29/2024 3:18 PM EST [facility] G[facility] Patient Name: Nate Correa Procedure Date: 04/29/2024 3:18 PM Date of : 1960 Admit Type: Inpatient Age: 63 Room: [place] [address] Gender: Male Note Status: Finalized Attending MD: [...] by the physician, the nurse and the grinder dresser in the pre-procedure area in theendoscopy suite. [...] was 589 seconds (604.5 mGy). Findings: A lathe winder film of the abdomen was obtained. Percutaneous [...] MD PROVATION PROCEDURES Final Resul t * US Limited Abdomen Single Org (04/27/2024 11:23 PM EST) Only the most recent of2 resultswithin the time period is included. Anatomical Region Laterality Modality Body N/A Ultrasound [...] obtain the completed interpretation. ? Workstation ID: [id number] Narrative 04/28/2024 8:28 AM EST EXAMINATION: Limited [...] PERITONEUM: Moderate perihepatic ascites. Resulting Agency Comment [id number] Procedure Note Kevin Rausch MD - 04/28/2024 [...] possible to obtain thecompleted interpretation. Workstation ID: [id number] Jeffrey Castro MD IMG US PROCEDURES Final Result * Vancomycin, Trough (04/26/2024 7:55 AM EST) Vancomycin Trough 14.2 10.0 - 20.0 ug/mL 04/26/2024 8:33 AM EST [facility] CLINICAL PATHOLOG[facility] LABORATORY Comment: Before interpreting a drug level, check the time the dose was given in the MAR to ensure the level was drawn appropriately. 10-15 ug/mL: Empiric/Mild infections 15-20 ug/mL: Severe MRSA infection (pneumonia, meningitis, endocarditis) Blood Structure of peripheral vein / Unknown Venipuncture / Unknown 04/26/2024 7:55 AM EST 04/26/2024 8:00 AM EST Natalio Lara MD LAB BLOOD ORDERABLES Final Re sult [facility] [address] [place] [address], * Lactic Acid, Plasma (04/26/2024 5:01 AM EST) Only the most recent of6 resultswithin the time period is included. Lactic Acid 1.6 0.5 - 1.9 mmol/L 04/26/2024 6:06 AM EST [facility] CLINICAL PATHOLOGY LABORATORY Comment: Sepsis Screening: Initial Lactate Level >2.0 mmol/L - Repeat Lactate Level within 3 hours. Initial Lactate Level >4.0 mmol/L - Repeat Lactate Level within 3 hours, Initiate Septic Shock Protocol. Blood Structure of peripheral vein / Unknown Venipuncture / Unknown 04/26/2024 5:01 AM EST 04/26/2024 5:31 AM EST us Natalio Lara MD LAB BLOOD ORDERABLES Final Re sult [facility] CL[facility]ICAL PATHOLOG[facility] LABORATORY [address] [place] [address], [place] * CT 3 Phase Liver Mass [...] obtain the completed interpretation. ? Workstation ID: [id number] Narrative 04/25/2024 4:52 PM EST EXAMINATION: CT [...] disease. No acute fracture. Resulting Agency Comment [id number] Procedure Note Cheryl Pitts MD - 04/25/2024 [...] possible to obtain thecompleted interpretation. Workstation ID: [id number] Natalio Lara MD IMG CT PROCEDURES Final Resul t * MRSA/S aureus PCR, Nasal (04/25/2024 6:13 AM EST) Only the most recent of2 resultswithin the time period is included. MRSA PCR, Nasal NOT DETECTED NOT DETECTED 04/25/2024 3:29 PM EST [facility] S. aureus PCR, Nasal NOT DETECTED NOT DETECTED 04/25/2024 3:29 PM EST [facility] Swab Nasal structure / Unknown Non-Blood Collection / Unknown 04/25/2024 6:13 AM EST 04/25/2024 6:26 AM EST Narrative [facility] - 04/25/2024 3:29 PM EST [facility] Received Date: Natalio Lara MD LAB BODY FLUIDS AND STOOLS OR DERABLES Final Result [facility] [address] [facility] [address] [facility] [address]rd [address], [place] [address], [place] [phone] [facility] [address], [place] [address], [place] [phone] * Duran Top, Urine (04/25/2024 6:10 AM EST) Pathologist [facility] Extra Tube Hold for add-ons. 04/25/2024 11:05 AM EST [facility] CLINICAL PATHOLOGY LABORATORY Comment:Auto resulted. Urine Urine specimen collection, clean catch / Unknown Non-Blood Collection / Unknown 04/25/2024 6:10 AM EST 04/25/2024 6:26 AM EST us Natalio Lara MD LAB URINE ORDERABLES Final Re sult [facility] CLINICAL PATHOLOGY LABORATORY [address] [place] [address], * (ABNORMAL) Urinalysis W/Reflex to Microscopic & Culture (04/25/2024 6:10 AM EST) Color, Urine Deann(A) Colorless, Light Yellow, Yellow, Dark Yellow 04/25/2024 6:39 AM EST [facility] LAB[facility] Clarity, Urine Clear Clear 04/25/2024 6:39 AM EST [facility] LAB[facility] Specific [place], Urine 1.029 1.005 - 1.030 04/25/2024 6:39 AM EST [facility] pH, Urine 5.0 4.6 - 8.0 04/25/2024 6:39 AM EST [facility] Protein, Urine 1+(A) Negative 04/25/2024 6:39 AM EST [facility] Glucose, Urine Negative Negative 04/25/2024 6:39 AM EST [facility] Ketones, Urine Negative Negative 04/25/2024 6:39 AM EST [facility] Bilirubin, Urine Negative Negative 04/25/2024 6:39 AM EST [facility] Blood, Urine 1+(A) Negative 04/25/2024 6:39 AM EST [facility] Nitrite, Urine Negative Negative 04/25/2024 6:39 AM EST [facility] Urobilinogen, Urine Normal Normal 04/25/2024 6:39 AM EST [facility] Leukocyte Esterase, Urine Negative Negative 04/25/2024 6:39 AM EST [facility] WBC, Urine 2 0 - 2 /HPF 04/25/2024 6:39 AM EST [facility] RBC, Urine 1 0 - 2 /HPF 04/25/2024 6:39 AM EST [facility] Hyaline Casts, Urine 1 0 - 2 /LPF 04/25/2024 6:39 AM EST [facility] Squamous Epithelial Cells, Urine <1 /HPF 04/25/2024 6:39 AM EST [facility] CLINICAL PATHOLOGY LABORATORY Bacteria, Urine None None /HPF /HPF 04/25/2024 6:39 AM EST [facility] CLINICAL PATHOLOGY LABORATORY Urine Urine specimen collection, clean catch / Unknown Non-Blood Collection / Unknown 04/25/2024 6:10 AM EST 04/25/2024 6:26 AM EST us Natalio Lara MD LAB URINE ORDERABLES Final Re sult [facility] [address] [place] [address], [place] * X-Ray Chest 1 View (04/24/2024 11:12 PM EST) Only the most recent of2 resultswithin the time period is included. Anatomical Region Laterality Modality Body Computed Radiogr [...] obtain the completed interpretation. ? Workstation ID: [id number] Narrative 04/26/2024 3:32 PM EST COMPARISON: ??04/11/2024 FINDINGS AND Resulting Agency Comment [id number] Procedure Note Jeyson Silva MD - 04/26/2024 [...] possible to obtain thecompleted interpretation. Workstation ID: [id number] Natalio Lara MD IMG XR PROCEDURES Final Resul t * Blood Culture (04/24/2024 6:13 PM EST) Only the most recent of5 resultswithin the time period is included. Pathologist [facility] Culture No growth after 5 days 04/29/2024 10:25 PM EST [employer] Blood Structure of peripheral vein / Unknown Venipuncture / Unknown 04/24/2024 6:13 PM EST 04/24/2024 6:35 PM EST [facility] - 04/29/2024 10:25 PM EST [facility] Received Date: MICRO NUMBER: [id number] SPECIMEN QUALITY: Suboptimal SOURCE: BLOOD VENOUS, PERIPHERAL STATUS: FINAL COMMENT: Aerobic and anaerobic bottle received. Inspection of blood culture bottles indicates that an inadequate volume of blood may have been collected for the detection of sepsis. Dana Samuels MD LAB MICROBIOLOGY - GENERAL ORDERABLES Final Result [facility] [address] [facility] [address] [facility] [address]rd [address], [place] [address], [facility] [address], [place] [address], * AFP tumor marker (04/24/2024 1:02 PM EST) Only the most recent of3 resultswithin the time period is included. [facility] Alpha Fetoprotein, Tumor Marker 2.4 <6.1 ng/mL 04/25/2024 11:03 AM EST [employer] [facility] Comment: This test was performed using the Mary Lou Erik chemiluminescent method. Values obtained from different assay methods cannot be used interchangeably. AFP levels, regardless of value, should not be interpreted as absolute evidence of the presence or absence of disease. Blood Structure of peripheral vein / Unknown Venipuncture / Unknown 04/24/2024 1:02 PM EST 04/24/2024 1:17 PM EST Narrative [facility] - 04/25/2024 11:03 AM EST [facility] Received Date:[id number] Mike Low MD LAB BLOOD ORDERABLES Fin al Result [facility] [address], [place] [address], [place] [phone] [employer] [facility] [address], [place] [address], [place] [phone] * (ABNORMAL) POCT Glucose, interfaced (04/18/2024 8:08 PM EST) Only the most recent of26 resultswithin the time period is included. Glucose, POCT 168(H) 70 - 99 mg/dL 04/18/2024 8:09 PM EST [facility] Comment: The fur glazer has not determined the efficacy of this test in Critically ill patients. ??[facility] defines Critically ill patients for the purpose of blood glucose monitoring (BGM) by glucometer, as patients meeting one or more of the following criteria: Hypotension- non-ICU patients (systolic blood pressure Less than 90 mmHg) due to shock Hypotension -ICU patients ??(Mean Arterial Pressure (MAP) <60 mmHg or systolic blood pressure < 90 mmHg due to shock Patients receiving Vasopressors (phenylephrine, vasopressin or norepinephrine) Anasarca In all locations, BGM test results should not be relied upon in the above situations, unless these results confirmed with lab-based glucose values. Blood 04/18/2024 8:08 PM EST 04/18/2024 8:09 PM EST Delmis Joseph MD LAB POCT ORDERABLES - DEVIC E Final Result [facility] [address] [place] [address], [place] * ECHOCARDIOGRAM DOBUTAMINE STRESS TEST W/ CONTRAST (04/18/2024 2:49 PM EST) Target HR 133 bpm AV peak gradient 3 mmHg AV mean gradient 2 mmHg Ao VTI 15.39 cm LVIDD 4.4 cm LVIDS 2.2 cm IVS 0.9 cm LVOT diameter 2.1 cm LVOT area 3.46 cm2 Relative Wall Thickness 0.36 PW 0.8 cm LV Mass Index 52 g/m2 LA Volume Index 18 mL/m2 LA volume 38 mL RV diastolic basal diam 4.0 cm Ao peak amos 0.9 m/s Sinus 3.7 cm Aortic Root Z-score 0.04 Dummy BSA 2.15 LV ED Post Wall 0.80 LV ES Dimension 2.20 LV ED Dimension 4.40 Aortic Valve Diam 2.[address] Depression (mm) [address] Depression (mm) [address] Depression (mm) 0 mm Dobut peak dose 40.0 mcg/kg/min Atropine total dose 0.5 mg Baseline HR 73 bpm Baseline BP 103/71 mmHg Post peak BP 110/49 mmHg Post peak HR 160 bpm Max Age Predicted HR 156 bpm Percent of predicted max HR 102 % Anatomical Region Laterality Modality Heart Echocardiography Narrative 04/18/2024 3:41 PM EST ?Patient achieved a peak HR of 160 bpm (102% APMHR) with 40 mcg of dobutamine and 0.5 mg of atropine. ?No ECG evidence of ischemia. ?Normal dobutamine stress echocardiogram with normal augmentation in LV contractility in all segments. Estimated peak stress LVEF >75%. Left Ventricle The left ventricle size is normal. Normal left ventricular wall thickness. Normal left ventricular wall motion. Normal left ventricular systolic function. Left ventricular ejection fraction is in the normal range with visually estimated LVEF 60%. Right Ventricle Right ventricle size is normal. Normal right ventricular systolic function. Left Atrium Left atrium size is normal. Right Atrium Right atrium is normal in size. Mitral Valve Mitral valve structure is normal. Trace mitral regurgitation. No mitral stenosis. Tricuspid Valve Tricuspid valve structure is normal. Trace tricuspid regurgitation. No tricuspid stenosis. Aortic Valve Aortic valve not well visualized. No aortic regurgitation. No aortic stenosis. Ascending Aorta The sinuses of Valsalva is normal. Pericardium No pericardial effusion. Study Details Study quality was good. A limited echocardiogram was performed with 2D, color flow Doppler and spectral Doppler. The apical and parasternal views were obtained.Left ventricle image acquisition obtained within 90 seconds post-stress. Optison ultrasound enhancing agent used. Patient exhibited sinus rhythm. Stress Findings A pharmacological stress test was performed using dobutamine with low-level exercise. The peak dobutamine dose was 40.0 mcg/kg/min. Dr. Rodriguez was immediately available for assistance and direction during the test.The patient reported no symptoms during the stress test. The patient reached the end of the protocol and achieved the target heart rate. The patient was given metoprolol for adverse effects from the test (tachycardia). The target heart rate was 133 bpm. The resting heart rate of 73 bpm patricia to a maximal heart rate of 160 bpm. The resting blood pressure of 103/71 mmHg patricia to a maximum blood pressure of 110/49 mmHg. The blood pressure was normal at baseline and patricia appropriately with stress the heart rate demonstrated a normal response to stress. ECG Resting ECG: No ST-segment deviation. Non-specific T-wave abnormalities present. Normal sinus rhythm. Poor R-wave progression present. Stress ECG: No ST-segment deviation. No arrhythmias. Recovery ECG: No ST-segment deviation. no arrhythmias. The ECG was negative for ischemia. Prior Study No prior study available for comparison. Echo Post Stress Left ventricle at low stress: Size is normal. Systolic function is normal. EF by visual approximation is 65 - 70%. Left ventricle in pre-stress: Size is normal. Systolic function is hyperdynamic. EF by visual approximation is 70 - 75%. Left ventricle at peak stress: Size is normal. Systolic function is normal. EF by visual approximation is greater than 75%. Wall Scoring Resting Score Index: 1.00 The left ventricular wall motion is normal. Wall Scoring Peak Dose Score Index: 1.00 The left ventricular wall motion is globally hyperkinetic. us Delmis Joseph MD CV ECHO PROCEDURES Final Re sult * CT Chest without Contrast (04/17/2024 4:43 PM EST) Anatomical Region Laterality Modality Body Computed Tomogra phy 04/17/2024 5:11 PM EST Impressions 04/17/2024 5:14 PM EST Impression: Minimal right and moderate left pleural effusion, with bilateral adjacent areas of lung parenchymal atelectasis. ??No larger abnormalities in the well ventilated parts of the lung parenchyma. ??No adenopathy, the central airways are patent. ??Moderate cardiomegaly with mild coronary calcifications. If this radiology report contains a blank impression section, it is an incomplete radiology report. ??Please contact the interpreting radiologist or applicable radiology division as soon as possible to obtain the completed interpretation. ? Workstation ID: [id number] Narrative 04/17/2024 5:14 PM EST Indication: ??liver transplant hari;, Comparison: No comparison. Dose: For radiation dose control at least one of the following techniques was used in this procedure (1) Automated exposure control (2) Adjustment of the mA and/or kV according to patient size (3) Use of iterative reconstruction technique. Findings: Neck and thoracic inlet: No abnormality. Mediastinum and large vessels: ? Aorta Mild aortic wall calcifications. Pulmonary arteries [...] well ventilated parts of the lung parenchyma. Airways: The central airways are patent. Pleura: See above. Upper abdomen: Please see report of the dedicated abdominal CT examination performed today. Chest wall and bones: Moderate degenerative vertebral disease. Resulting Agency Comment [id number] Procedure Note Seth Recinos MD PhD - 04/17/2024 Indication: liver transplant hari;, Comparison: No comparison. Dose: For radiation dose control at least one of the following techniqueswas used in this procedure (1) Automated exposure control (2) Adjustmentof the mA and/or kV according to patient size (3) Use of iterativereconstruction technique. Findings: Neck and thoracic inlet: No [...] hilar contours. The absence of intravenous contrast limitsthe evaluation for adenopathy. Others None. Lung parenchyma: Moderate respiratory motion. Minimal right and moderate left pleural effusion, with areas of adjacentatelectasis. Atelectasis are also present in the anterior parts of the left and rightbasal lung. No larger pulmonary nodules or masses. No diffuse lung disease in the well ventilated parts of the lungparenchyma. Airways: The central airways are patent. Pleura: See above. Upper abdomen: Please see report of the dedicated abdominal CT examination performedtoday. Chest wall and bones: Moderate degenerative vertebral disease. IMPRESSION: Impression: Minimal right and moderate left pleural effusion, with bilateral adjacentareas of lung parenchymal atelectasis. No larger abnormalities in thewell ventilated parts of the lung parenchyma. No adenopathy, the centralairways are patent. Moderate cardiomegaly with mild coronarycalcifications. If this radiology report contains a blank impression section, it is anincomplete radiology report. Please contact the interpreting radiologistor applicable radiology division as soon as possible to obtain thecompleted interpretation. Workstation ID: [id number] us Delmis Joseph MD IM CT PROCEDURES Final Res ult * (ABNORMAL) Creatine Kinase (04/17/2024 4:12 PM EST) CK 23(L) 49 - 348 U/L 04/17/2024 5:01 PM EST [facility] Blood Structure of peripheral vein / Unknown Venipuncture / Unknown 04/17/2024 4:12 PM EST 04/17/2024 4:30 PM EST Delmis Joseph MD LAB BLOOD ORDERABLES Final Result [facility] [address] [place] [address], [place] * Aerobic Culture w/Gram Stain (04/17/2024 3:53 PM EST) Only the most recent of3 resultswithin the time period is included. Culture No growth 04/23/2024 8:25 AM EST [employer] [facility] Gram Stain No organisms or white blood cells seen 04/23/2024 8:25 AM EST [employer] [place] Ascites Fluid Specimen from peritoneum / Unknown Non-Blood Collection / Unknown 04/17/2024 3:53 PM EST 04/17/2024 4:26 PM EST Narrative [facility] - 04/23/2024 8:25 AM EST [facility] Received Date: MICRO NUMBER: [id number] SPECIMEN QUALITY: Adequate SOURCE: ASCITES FLUID PERITONEUM STATUS: FINAL Delmis Joseph MD LAB MICROBIOLOGY - GENERAL ORDERABLES Final Result [facility] [place] [address] [facility] [address] [place] [address], [facility] [address], [place] [address], [place] [phone] * Albumin, Body Fluid (04/17/2024 3:53 PM EST) Only the most recent of2 resultswithin the time period is included. Albumin, Fluid 1.8 g/dL 04/17/2024 4:57 PM EST [facility] Comment: No reference range available. This test was developed and its performance characteristics determined by [facility] Clinical Labs. [facility] has not approved or cleared this test. FDA clearance or approval is not currently required for clinical use. The results are not intended to be used as the sole means for clinical diagnosis or patient management decisions. Ascites Fluid Specimen from peritoneum / Unknown Non-Blood Collection / Unknown 04/17/2024 3:53 PM EST 04/17/2024 4:26 PM EST us Delmis Joseph MD LAB BODY FLUIDS AND STOOLS ORDERABLES Final Result [facility] [address] [place] [address], [place] * IN ABDOM PARACENTESIS DX/THER W IMAGING GUIDANCE (04/17/2024 3:50 PM EST) Narrative Ever Troy MD - 04/17/2024 3:50 PM EST Jony Conteh MD ? 04/17/2024 ??3:53 PM Paracentesis Date/Time: 04/17/2024 3:50 PM Performed by: Jony Conteh MD Authorized by: Delmis Joseph MD ?? Consent: ??Patient Identity Confirmed: ??Name and with patient ??Verbal Consent Obtained?: ??Yes ??Written Consent Obtained?: ??Yes ??Risks and benefits discussed: ??Yes ??Consent given by: ??Spouse ??Patient states understanding of procedure being performed: ??Yes ??Patient's understanding of procedure matches consent: ??Yes Stanton Protocol: ??Procedure consent matches procedure scheduled: ??Yes [...] anesthetic: ??Lidocaine 1% w/o epi Procedure details: ??Ultrasound guidance: yes ?Puncture site: ??L lower quadrant ??Fluid removed amount: ??4.1L ??Fluid appearance: ??Deann and serous ??Dressing: ??4x4 sterile gauze and adhesive bandage Post-procedure details: ??Patient tolerance of procedure: ??Tolerated well, no immediate complications ?? Procedure time was exclusive of critical care time: yes us Delmis Joseph MD IN CLINIC/BEDSIDE ORDERABLE S Final Result * (ABNORMAL) MMR Panel (Measles, Mumps, Rubella), IgG (04/17/2024 9:32 AM EST) Measles Antibody (IgG), Immune Status 17.90 AU/mL 04/17/2024 10:39 PM EST [employer] [facility] [employer] Comment: AU/mL ?Interpretation ----- ? <13.50 ? Not consistent with immunity 13.50-16.49 ?Equivocal >16.49 ? Consistent with immunity The presence of measles IgG suggests immunization or past or current infection with measles virus. For additional information, please refer to http://ClaimIt.DocbookMD/faq/PXX832 (This link is being provided for informational/ educational purposes only.) Mumps Antibody (IgG), Immune Status <9.00(L) AU/mL 04/17/2024 10:39 PM EST [facility] [employer] Comment: AU/mL ? Interpretation ------- ? <9.00 ? Not consistent with immunity 9.00-10.99 ?Equivocal >10.99 ?Consistent with immunity The presence of mumps IgG antibody suggests immunization or past or current infection with mumps virus. Rubella Antibody (IgG), Immune Status 30.80 Index 04/17/2024 10:39 PM EST [employer] [facility] Comment: ?Index ?Interpretation ?----- ?<0.90 ?Not consistent with immunity ?0.90-0.99 ?Equivocal ?> or = 1.00 ?Consistent with immunity The presence of rubella IgG antibody suggests immunization or past or current infection with rubella virus. Blood Structure of peripheral vein / Unknown Venipuncture / Unknown 04/17/2024 9:32 AM EST 04/17/2024 9:44 AM EST Narrative [facility] [place] - 04/17/2024 10:39 PM EST [facility] Received Date: us Delmis Joseph MD LAB BLOOD ORDERABLES Final Result Performing Organization Address [facility]/ZIP Co de Phone Number [facility] [place] [address] [facility] 3rd Floor, [place] [address], [facility] 200 [facility] 3rd Floor, [place] [address], [place] [phone] * Immunofixation, Serum (04/17/2024 9:32 AM EST) Immunofixation, Serum, Interpretation See Comments 04/22/2024 3:13 PM EST [employer] [facility] Comment: No monoclonal proteins detected. Blood Structure of peripheral vein / Unknown Venipuncture / Unknown 04/17/2024 9:32 AM EST 04/17/2024 9:44 AM EST Narrative [facility] [place] - 04/22/2024 3:13 PM EST [facility] Received Date:[id number] us Delmis Joseph MD LAB BLOOD ORDERABLES Final Result [facility] 200 [facility] [address] [facility], [address] [place] [address], [facility] [address], [place] [address], * (ABNORMAL) Herpes Simplex Virus 1&2 Antibody, IgG (04/17/2024 9:32 AM EST) HSV 1 IgG Type Specific Ab 26.50(H) index 04/17/2024 7:37 PM EST [facility] HSV 2 IgG Type Specific Ab 2.16(H) index 04/17/2024 7:37 PM EST [facility] Comment: ?Index ?Interpretation ?----- ?<0.90 ?Negative ?0.90-1.09 ?Equivocal ?>1.09 ?Positive Low HSV-2 IgG positive results (index values between 1.10-3.00) may represent false positive results. CDC 202 guidelines recommend confirmatory testing of samples with low-positive HSV-2 IgG results. If clinically indicated, consider adding on HSV-2 IgG Inhibition, by contacting [employer]. For additional information, please refer to: https://www.Breakmoon.com.[employer]/healthcare- professionals/tdnocgad-oqsnutbti-ufgkcs/faq/faq25 (This link is being provided for informational/ educational purposes only.) This assay utilizes recombinant type-specific antigens to differentiate HSV-1 from HSV-2 infections. A positive result cannot distinguish between recent and past infection. If recent HSV infection is suspected but the results are negative or equivocal, the assay should be repeated in 4-6 weeks. The performance characteristics of the assay have not been established for pediatric populations, immunocompromised patients, or screening. For additional information, please refer to http://education.DocbookMD/faq/RYT412 (This link is being provided for informational/ educational purposes only.) ?? Blood Structure of peripheral vein / Unknown Venipuncture / Unknown 04/17/2024 9:32 AM EST 04/17/2024 9:45 AM EST [facility] 04/17/2024 7:37 PM EST [facility] Received Date: Delmis Joseph MD LAB BLOOD ORDERABLES Final Result [facility] [address] [facility] 3rd Floor, [place] [address], [facility] 200 [facility] [address] [facility], [place] [address], * (ABNORMAL) Protein Electrophoresis w/Reflex to Immunofixation, Serum (04/17/2024 9:32 AM EST) Pathologist [facility] Protein, Total 5.6(L) 6.1 - 8.1 g/dL 04/21/2024 12:33 PM EST [employer] [facility] Albumin 3.3(L) 3.8 - 4.8 g/dL 04/21/2024 12:33 PM EST [facility] Alpha 1 Globulin 0.3 0.2 - 0.3 g/dL 04/21/2024 12:33 PM EST [facility] Alpha 2 Globulin 0.4(L) 0.5 - 0.9 g/dL 04/21/2024 12:33 PM EST [facility] [employer] Beta 1 Globulin 0.3(L) 0.4 - 0.6 g/dL 04/21/2024 12:33 PM EST [facility] Beta 2 Globulin 0.5 0.2 - 0.5 g/dL 04/21/2024 12:33 PM EST [employer] [facility] Gamma Globulin 0.9 0.8 - 1.7 g/dL 04/21/2024 12:33 PM EST [facility] Abnormal Protein Band 1 See Comments NONE DETECTED g/dL 04/21/2024 12:33 PM EST [employer] [facility] Comment: See below Interpretation See Comments 04/21/2024 12:33 PM EST [employer] [facility] Comment: Possible monoclonal protein (M-protein) present. Suggest serum immunofixation. Blood Structure of peripheral vein / Unknown Venipuncture / Unknown 04/17/2024 9:32 AM EST 04/17/2024 9:44 AM EST Narrative [employer] [place] - 04/21/2024 12:33 PM EST [facility] Received Date:[id number] us Delmis Joseph MD LAB BLOOD ORDERABLES Final Result Performing Organization Address City/[facility]/ZIP Co de Phone Number [employer] [place] [address] [facility] [address] [facility], [place] [address], [place] [phone] [employer] [facility] 200 [facility] [address] [facility], [place] [address], [place] [phone] * RPR (Diagnosis) w/Reflex to Titer & TPPA Confirm (04/17/2024 9:32 AM EST) RPR W/Refl Titer NON-REACT ALESIA NON-REACT ALESIA 04/22/2024 3:16 PM EST [facility] Blood Structure of peripheral vein / Unknown Venipuncture / Unknown 04/17/2024 9:32 AM EST 04/17/2024 9:44 AM EST Narrative [employer] [place] - 04/22/2024 3:16 PM EST [facility] Received Date:[id number] us Delmis Joseph MD LAB BLOOD ORDERABLES Final Result [facility] [place] [address], [place] [address], [place] [phone] [employer] [address] 3rd Floor, [place] [address], [place] [phone] * PSA, Total Reflex to Free (04/17/2024 9:32 AM EST) Pathologist [facility] PSA 0.30 <=4.00 ng/mL 04/17/2024 10:26 AM EST [facility] Comment: The total PSA value from this assay system is standardized against the WHO standard. ??The test result will be slightly lower (< 3 %) when compared to the equimolar-standardized total PSA([place]). ??Comparison of Serial PSA results should be interpreted with this fact in mind. ??PSA level, regardless of value should not be interpreted as absolute evidence of the presence or absence of disease. This test was performed using Aurora chemiluminescent method. ??Values obtained by different assay methods cannot be used interchangeably. Blood Structure of peripheral vein / Unknown Venipuncture / Unknown 04/17/2024 9:32 AM EST 04/17/2024 9:44 AM EST Delmis Joseph MD LAB BLOOD ORDERABLES Final Result [facility] [address] [place] [address], [place] * QuantiFERON-TB Gold Plus, 1 Tube (04/17/2024 9:32 AM EST) Pathologist [facility] QuantiFERON-TB Gold Plus NEGATIVE NEGATIVE 04/20/2024 6:44 PM EST [facility] Comment: Negative test result. M. tuberculosis complex infection unlikely. NIL 0.03 IU/mL 04/20/2024 6:44 PM EST [facility] Mitogen-NIL 1.18 IU/mL 04/20/2024 6:44 PM EST [facility] TB1-NIL 0.00 IU/mL 04/20/2024 6:44 PM EST [facility] TB2-NIL 0.01 IU/mL 04/20/2024 6:44 PM EST [facility] Comment: The Nil tube value reflects the background interferon gamma immune response of the patient's blood sample. This value has been subtracted from the patient's displayed TB and Mitogen results. Lower than expected results with the Mitogen tube prevent false-negative Quantiferon readings by detecting a patient with a potential immune suppressive condition and/or suboptimal pre-analytical specimen handling. The TB1 Antigen tube is coated with the M. tuberculosis-specific antigens designed to elicit responses from TB antigen primed CD4+ helper T-lymphocytes. The TB2 Antigen tube is coated with the M. tuberculosis-specific antigens designed to elicit responses from TB antigen primed CD4+ helper and CD8+ cytotoxic T-lymphocytes. For additional information, please refer to https://education.Readiness Resource Group/faq/TAC773 (This link is being provided for informational/ educational purposes only.) Blood Structure of peripheral vein / Unknown Venipuncture / Unknown 04/17/2024 9:32 AM EST 04/17/2024 9:40 AM EST Narrative [facility] [place] - 04/20/2024 6:44 PM EST [facility] Received Date:[id number] us Delmis Joseph MD LAB BLOOD ORDERABLES Final Result [address], [place] [address], [place] [phone] [facility] [address], [place] [address], [place] [phone] * Smooth Muscle Antibody Screen w/Reflex to Titer (04/17/2024 9:32 AM EST) Smooth Muscle AB Screen NEGATIVE NEGATIVE 04/18/2024 12:14 PM EST [facility] Blood Structure of peripheral vein / Unknown Venipuncture / Unknown 04/17/2024 9:32 AM EST 04/17/2024 9:44 AM EST [facility]ative [facility] - 04/18/2024 12:14 PM EST [facility] Received Date:[id number] us Delmis Joseph MD LAB BLOOD ORDERABLES Final Result Performing Organization Address City/[facility]/ZIP Co de Phone Number [facility] [place] [address], [place] [address], [facility] [address], [place] [address], * Lrkgg-4-Yodqxihlksq (04/17/2024 9:32 AM EST) Pathologist [facility] Tjquz-8-Nqzgjw ypsin Qn 166 83 - 199 mg/dL 04/17/2024 10:29 PM EST [employer] [facility] Blood Structure of peripheral vein / Unknown Venipuncture / Unknown 04/17/2024 9:32 AM EST 04/17/2024 9:44 AM EST Narrative [facility] - 04/17/2024 10:29 PM EST [facility] Received Date: Delmis Joseph MD LAB BLOOD ORDERABLES Final Result Performing Organization Address City/[facility]/ZIP Co de Phone Number [facility] [place] [address], [place] [address], [employer] [facility] [address], [place] [address], * Hepatitis C Antibody w/Reflex to HCV RNA, Quantitative PCR (04/17/2024 9:32 AM EST) [facility] Hepatitis C Antibody NON-REACT ALESIA NON-REACT ALESIA 04/17/2024 7:31 PM EST [employer] [facility] Comment: HCV antibody was non-reactive. There is no laboratory evidence of HCV infection. In most cases, no further action is required. However, if recent HCV exposure is suspected, a test for HCV RNA (test code 42687) is suggested. For additional information please refer to http://education.Readiness Resource Group/faq/NGO45g1 (This link is being provided for informational/ educational purposes only.) Blood Structure of peripheral vein / Unknown Venipuncture / Unknown 04/17/2024 9:32 AM EST 04/17/2024 9:44 AM EST Narrative [employer] [facility] - 04/17/2024 7:31 PM EST [facility] Received Date: us Delmis Joseph MD LAB BLOOD ORDERABLES Final Result Performing Organization Address City/[facility]/ZIP Co de Phone Number [facility] [address] [facility] [address] [facility], [place] [address], [place] [phone] [facility] [address], [place] [address], [place] [phone] * Hepatitis A Antibody, Total (04/17/2024 9:32 AM EST) Pathologist [facility] Hepatitis A Ab, Total NON-REACT ALESIA NON-REACT ALESIA 04/17/2024 9:50 PM EST [employer] [facility] Comment: For additional information, please refer to http://education.Readiness Resource Group/faq/PEI596 (This link is being provided for informational/ educational purposes only.) Blood Structure of peripheral vein / Unknown Venipuncture / Unknown 04/17/2024 9:32 AM EST 04/17/2024 9:44 AM EST Narrative [employer] [facility] - 04/17/2024 9:50 PM EST [facility] Received Date:[id number] us Delmis Joseph MD LAB BLOOD ORDERABLES Final Result Performing Organization Address City/[facility]/ZIP Co de Phone Number [facility] [address] [facility] 3rd Floor, [place] [address], [place] [phone] [facility] [address], [place] [address], [place] [phone] * MERT Screen, IFA, w/Reflex to Titer & Pattern (04/17/2024 9:32 AM EST) MERT Screen, IFA NEGATIVE NEGATIVE 2:39 PM EST [employer] [facility] Comment: MERT IFA is a first line screen for detecting the presence of up to approximately 150 autoantibodies in various autoimmune diseases. A negative MERT IFA result suggests an MERT-associated autoimmune disease is not present at this time, but is not definitive. If there is high clinical suspicion for Sjogren's syndrome, testing for anti-SS-A/Ro antibody should be considered. Anti-Geena-1 antibody should be considered for clinically suspected inflammatory myopathies. AC-0: Negative International Consensus on MERT Patterns (https://doi.org/10.1515/ochv-6411-0605) For additional information, please refer to http://education.DocbookMD/faq/AEI985 (This link is being provided for informational/ educational purposes only.) ?? Blood Structure of peripheral vein / Unknown Venipuncture / Unknown 04/17/2024 9:32 AM EST 04/17/2024 9:44 AM EST [facility] - 04/22/2024 2:39 PM EST [facility] Received Date: Delmis Joseph MD LAB BLOOD ORDERABLES Final Result [facility] [address] [facility] 3rd Floor, [place] [address], [place] [phone] [facility] [address], [place] [address], [place] [phone] * Ceruloplasmin (04/17/2024 9:32 AM EST) Ceruloplasmin 15 14 - 30 mg/dL 04/17/2024 10:29 PM EST [facility] Blood Structure of peripheral vein / Unknown Venipuncture / Unknown 04/17/2024 9:32 AM EST 04/17/2024 9:44 AM EST Narrative [facility] [place] - 04/17/2024 10:29 PM EST [facility] Received Date: us Delmis Joseph MD LAB BLOOD ORDERABLES Final Result [facility] [address], [place] [address], [facility] [address], [place] [address], * (ABNORMAL) Brandee-Berger Virus VCA, IgG (04/17/2024 9:32 AM EST) Pathologist [facility] EBV Viral Capsid Ag Ab (IGG) >750.00(H ) U/mL 04/18/2024 6:17 AM EST [employer] Comment: ? U/mL ? Interpretation ? ---- ? <18.00 ? Negative ? 18.00-21.99 ?Equivocal ? >21.99 ? Positive Blood Structure of peripheral vein / Unknown Venipuncture / Unknown 04/17/2024 9:32 AM EST 04/17/2024 9:44 AM EST Narrative [facility] - 04/18/2024 6:17 AM EST [facility] Received Date: Delmis Joseph MD LAB BLOOD ORDERABLES Final Result [facility] [address], [place] [address], [employer] [facility] [address], [place] [address], * Hepatitis B Core Antibody, Total (04/17/2024 9:32 AM EST) Hepatitis B Core Ab Total NON-REACT ALESIA NON-REACT ALESIA 04/17/2024 6:46 PM EST [employer] [facility] [employer] Comment: For additional information, please refer to http://ClaimIt.Readiness Resource Group/faq/IQL609 (This link is being provided for informational/ educational purposes only.) Blood Structure of peripheral vein / Unknown Venipuncture / Unknown 04/17/2024 9:32 AM EST 04/17/2024 9:45 AM EST Narrative [facility] [place] - 04/17/2024 6:46 PM EST [facility] Received Date: Delmis Joseph MD LAB BLOOD ORDERABLES Final Result [facility] [address] [facility] 3rd Floor, [place] [address], [employer] [facility] 200 [facility] 3rd Floor, [place] [address], * (ABNORMAL) Vitamin D, 25-Hydroxy, Total, Immunoassay (04/17/2024 9:32 AM EST) Calcidiol+ercalc idiol 10(L) 30 - 100 ng/mL 04/17/2024 10:44 PM EST [employer] [facility] [employer] Comment: Vitamin D Status ? 25-OH Vitamin D: Deficiency: ?<20 ng/mL Insufficiency: ? 20 - 29 ng/mL Optimal: ? > or = 30 ng/mL For 25-OH Vitamin D testing on patients on D2-supplementation and patients for whom quantitation of D2 and D3 fractions is required, the QuestAssureD(TM) 25-OH VIT D, (D2,D3), LC/MS/MS is recommended: order code 00420 (patients >2yrs). See Note 1 Note 1 For additional information, please refer to http://ClaimIt.DocbookMD/faq/WZQ894 (This link is being provided for informational/ educational purposes only.) Blood Structure of peripheral vein / Unknown Venipuncture / Unknown 04/17/2024 9:32 AM EST 04/17/2024 9:44 AM EST [facility]arrative [facility] [place] - 04/17/2024 10:44 PM EST [facility] Received Date:[id number] us Delmis Joseph MD LAB BLOOD ORDERABLES Final Result Performing Organization Address City/[facility]/ZIP Co de Phone Number [facility] [address] [facility] 3rd Floor, [place] [address], [place] [phone] [facility] [address], [place] [address], * Mitochondrial Antibody w/Reflex (04/17/2024 9:32 AM EST) Pathologist [facility] Mitochondrial Ab Screen NEGATIVE NEGATIVE 04/18/2024 12:14 PM EST [facility] Blood Structure of peripheral vein / Unknown Venipuncture / Unknown 04/17/2024 9:32 AM EST 04/17/2024 9:45 AM EST Narrative [facility] - 04/18/2024 12:14 PM EST [facility] Received Date:[id number] us Delmis Joseph MD LAB BLOOD ORDERABLES Final Result Performing Organization Address City/[facility]/ZIP Co de Phone Number [facility] [address] [facility] [address] [facility], [place] [address], [facility] [address], [place] [address], * Toxoplasma gondii Antibody, IgG (04/17/2024 9:32 AM EST) Pathologist [facility] Toxoplasma Ab IgG <7.20 IU/mL 04/17/2024 7:37 PM EST [employer] [facility] Comment: ? IU/mL ?Interpretation ? ------ ? <7.20 ?Negative ? 7.20-8.79 ?Equivocal ? >8.79 ?Positive Blood Structure of peripheral vein / Unknown Venipuncture / Unknown 04/17/2024 9:32 AM EST 04/17/2024 9:45 AM EST [facility] 04/17/2024 7:37 PM EST [facility] Received Date: Delmis Joseph MD LAB BLOOD ORDERABLES Final Result Performing Organization Address City/[facility] Co de Phone Number FARHAT [address], [place] [address], [facility] [address], [place] [address], * (ABNORMAL) Hepatitis B Surface Antibody (04/17/2024 9:32 AM EST) Hepatitis B Surface Ab Immunity, Qn <5(L) > OR = 10 mIU/mL 04/17/2024 9:50 PM EST [employer] [facility] Comment: PATIENT DOES NOT HAVE IMMUNITY TO HEPATITIS B VIRUS. For additional information, please refer to http://education.Readiness Resource Group/faq/FPY094 (This link is being provided for informational/ educational purposes only). Blood Structure of peripheral vein / Unknown Venipuncture / Unknown 04/17/2024 9:32 AM EST 04/17/2024 9:44 AM EST [facility]arrative [facility] [place] - 04/17/2024 9:50 PM EST [facility] Received Date:[id number] Delmis Joseph MD LAB BLOOD ORDERABLES Final Result Performing Organization Address City/[facility]/ZIP Co de Phone Number [facility] [place] [address], [place] [address], [facility] [address], [place] [address], * Hepatitis B Surface Antigen W/Confirmation (04/17/2024 9:32 AM EST) Pathologist [facility] Hepatitis B Surface Antigen NON-REACT ALESIA NON-REACT ALESIA 04/17/2024 10:53 PM EST [employer] [facility] Comment: For additional information, please refer to http://education.Readiness Resource Group/faq/LQJ634 (This link is being provided for informational/ educational purposes only.) Blood Structure of peripheral vein / Unknown Venipuncture / Unknown 04/17/2024 9:32 AM EST 04/17/2024 9:44 AM EST Narrative [facility] - 04/17/2024 10:53 PM EST [facility] Received Date: Delmis Joseph MD LAB BLOOD ORDERABLES Final Result [facility] [address], [place] [address], [facility] [address], [place] [address], * (ABNORMAL) Cytomegalovirus Antibody, IgG (04/17/2024 9:32 AM EST) [facility] Cytomegalovirus Antibody (IgG) >10.00(H ) U/mL 04/18/2024 6:31 AM EST [employer] [facility] Comment: ? U/mL ? Interpretation ? ----- ? <0.60 ? Negative ? 0.60-0.69 ? Equivocal ? > or = 0.70 ?? Positive A positive result indicates that the patient has antibody to CMV. It does not differentiate between an active or past infection. Blood Structure of peripheral vein / Unknown Venipuncture / Unknown 04/17/2024 9:32 AM EST 04/17/2024 9:44 AM EST [facility]ative [facility] - 04/18/2024 6:31 AM EST [facility] Received Date:[id number] Delmis Joseph MD LAB BLOOD ORDERABLES Final Result Performing Organization Address City/[facility]/ZIP Co de Phone Number [facility] [place] [address] [facility] 3rd Floor, [place] [address], [place] [phone] [employer] [facility] 200 [facility] 3rd Floor, [place] [address], [place] [phone] * Rheumatoid Factor (04/17/2024 9:32 AM EST) Rheumatoid Factor <10 <14 IU/mL 04/17/2024 5:46 PM EST [employer] [facility] Blood Structure of peripheral vein / Unknown Venipuncture / Unknown 04/17/2024 9:32 AM EST 04/17/2024 9:45 AM EST Narrative [facility] [place] - 04/17/2024 5:46 PM EST [facility] Received Date:[id number] us Delmis Joseph MD LAB BLOOD ORDERABLES Final Result [facility] [place] [address] [facility] 3rd Floor, [place] [address], [place] [phone] [employer] [address] [facility] 3rd Floor, [place] [address], * Varicella Zoster Antibody, IgG (04/17/2024 9:32 AM EST) Varicella Zoster Virus Antibody 7.16 S/CO 04/18/2024 12:29 PM EST [employer] [facility] [employer] Comment: ?Signal to Cut-off ? S/CO ?Interpretation ? --------- ?<1.00 ?Negative - Antibody not detected ?> or = 1.00 ?Positive - Antibody detected ?A positive result indicates that the patient ?has antibody to VZV but does not differentiate ?between an active or past infection. ?The clinical diagnosis must be interpreted in ?conjunction with the clinical signs and symptoms of ?the patient. This assay reliably measures immunity ?due to previous infection but may not be ?sensitive enough to detect antibodies induced by ?vaccination. Thus, a negative result in a vaccinated ?individual does not necessarily indicate ?susceptibility to VZV infection. A more sensitive ?test for vaccination-induced immunity is Varicella ?Zoster Virus Antibody Immunity Screen, ACIF. Blood Structure of peripheral vein / Unknown Venipuncture / Unknown 04/17/2024 9:32 AM EST 04/17/2024 9:44 AM EST Narrative [facility] ERVIN - 04/18/2024 12:29 PM EST [facility] Received Date:[id number] Delmis Joseph MD LAB BLOOD ORDERABLES Final Result [facility] ERV[facility] [address] [facility] 3rd Floor, [place] [address], [place] [phone] [employer] [employer] [address], [place] [address], * Hemoglobin A1c (04/17/2024 9:32 AM EST) Hemoglobin A1C 5.3 <5.7 % of total Hgb 04/18/2024 10:23 AM EST [facility] [employer] Comment: For the purpose of screening for the presence of diabetes: <5.7% ? Consistent with the absence of diabetes 5.7-6.4% ?Consistent with increased risk for diabetes ?(prediabetes) > or =6.5% ??Consistent with diabetes This assay result is consistent with a decreased risk of diabetes. Currently, no consensus exists regarding use of hemoglobin A1c for diagnosis of diabetes in children. According to [place] Diabetes Association (ADA) guidelines, hemoglobin A1c <7.0% represents optimal control in non- diabetic patients. Different metrics may apply to specific patient populations. Standards of Medical Care in Diabetes(ADA). ?? eAG (MG/DL) 105 mg/dL 04/18/2024 10:23 AM EST [facility] eAG (MMOL/L) 5.8 mmol/L 04/18/2024 10:23 AM EST [facility] [employer] Blood Structure of peripheral vein / Unknown Venipuncture / Unknown 04/17/2024 9:32 AM EST 04/17/2024 9:41 AM EST Narrative [facility] [place] - 04/18/2024 10:23 AM EST [facility] Received Date: Delmis Joseph MD LAB BLOOD ORDERABLES Final Result [facility]ARH[facility] ERVIN [address] [facility] 3rd Floor, [place] [address], [facility] [employer] [address] [facility] 3rd Floor, [place] [address], * (ABNORMAL) CEA (04/17/2024 9:32 AM EST) Pathologist [facility] CEA 4.7(H) <=3.7 ng/mL 04/17/2024 10:22 AM EST [facility] Comment: Smokers Reference Range: ?? <5.5 ng/mL This test was performed using Aurora electrochemiluminescence immunoassay method. Values obtained by different assay methods cannot be used interchangeably. Blood Structure of peripheral vein / Unknown Venipuncture / Unknown 04/17/2024 9:32 AM EST 04/17/2024 9:44 AM EST Delmis Joseph MD LAB BLOOD ORDERABLES Final Result Performing Organization Address [facility] Co de Phone Number [facility] CL[facility] LAB[facility]ATORY [address] [place] [address], * (ABNORMAL) Iron Saturation (04/17/2024 6:45 AM EST) Pathologist [facility] Iron Saturation 45 20 - 50 % 9:49 AM EST [facility] Iron 53 45 - 160 ug/dL 04/17/2024 9:49 AM EST [facility] Transferrin 94(L) 200 - 360 mg/dL 04/17/2024 9:49 AM EST [facility] Total Iron Binding Capacity 118(L) 255 - 450 ug/dL 04/17/2024 9:49 AM EST [facility] Blood Structure of peripheral vein / Unknown Venipuncture / Unknown 04/17/2024 6:45 AM EST 04/17/2024 7:04 AM EST Delmis Joseph MD LAB BLOOD ORDERABLES Final Result Performing Organization Address [facility] Co de Phone Number [facility] [address] [place] [address], * TSH Reflex Free T4 (04/17/2024 6:45 AM EST) Pathologist [facility] TSH 1.190 0.280 - 3.890 uIU/mL 04/17/2024 9:49 AM EST [facility] Blood Structure of peripheral vein / Unknown Venipuncture / Unknown 04/17/2024 6:45 AM EST 04/17/2024 7:04 AM EST Delmis Joseph MD LAB BLOOD ORDERABLES Final Result Performing Organization Address [facility] de Phone Number [facility] CL[facility]ORY [address] [place] [address] * (ABNORMAL) Ferritin (04/17/2024 6:45 AM EST) [facility] Ferritin 907.0(H) 23.0 - 336.0 ng/mL 04/17/2024 9:49 AM EST [facility] Blood Structure of peripheral vein / Unknown Venipuncture / Unknown 04/17/2024 6:45 AM EST 04/17/2024 7:04 AM EST Delmis Joseph MD LAB BLOOD ORDERABLES Final Result Performing Organization Address [facility] de Phone Number [facility] [facility] CL[facility]ORY [address] [place] [address] * Cholesterol, Total (04/17/2024 6:45 AM EST) [facility] Cholesterol 65 <=199 mg/dL 04/17/2024 9:49 AM EST [facility] Comment: Adult Treatment Panel III Guidelines of NCEP 2001 Category ?Total Cholesterol (mg/dL) ??Desirable ? <200 ??Borderline High ?200-239 ??High ? >=240 NCEP Expert Panel on Blood Cholesterol in Children and Adolescents Category ?Total Cholesterol (mg/dL) ??Desirable ?<170 ??Borderline High ? 170-199 ??High ?>=200 Blood Structure of peripheral vein / Unknown Venipuncture / Unknown 04/17/2024 6:45 AM EST 04/17/2024 7:04 AM EST us Delmis Joseph MD LAB BLOOD ORDERABLES Final Result [facility] [address] [place] [address], * Paracentesis (04/14/2024 7:29 AM EST) Narrative Agustin Kraft MD - 04/14/2024 7:29 AM EST Agustin Kraft MD ? 04/18/2024 ??7:23 AM Paracentesis Date/Time: 04/14/2024 7:29 AM Performed by: Agustin Kraft MD Authorized by: Abelardo Medrano MD ?? Consent: ??Patient Identity Confirmed: ??Name and MRN on the patient's armband ??Verbal Consent Obtained?: ??Yes ??Written Consent Obtained?: ??Yes ??Risks and benefits discussed: ??Yes ??Consent given by: ??Spouse ??Patient states understanding of procedure being performed: ??Yes ??Patient's understanding of procedure matches consent: ??Yes Stanton Protocol: ??Procedure consent matches procedure scheduled: ??Yes [...] Practice Provider Pre-procedure details: ??Procedure purpose: ??Therapeutic Anesthesia (see MAR for exact dosages): ??Anesthesia method: ??Local infiltration ??Local anesthetic: ??Lidocaine 1% w/o epi Procedure details: ??Ultrasound guidance: yes ?Puncture site: ??L lower quadrant ??Fluid appearance: ??Clear and yellow ??Dressing: ??4x4 sterile gauze and adhesive bandage Post-procedure details: ??Patient tolerance of procedure: ??Tolerated well, no immediate complications ?? Procedure time was exclusive of critical care time: yes Comments: ?? 5.5 L clear yellow ascites fluid removed. us Abelardo Medrano MD IN CLINIC/BEDSIDE ORDERABLES Edited Result - Final * Beta D Glucan (Fungitell) (04/14/2024 6:24 AM EST) Beta D Glucan (Fungitell) <31 <80 pg/mL 04/17/2024 1:30 PM EST [employer] Comment: Interpretation: The Fungitell assay does not detect certain fungal species such as the genus Cryptococcus (Abisai et al. 1991) which produces very low levels of (1-3)-Unvi-L-Gkbkki. The assay also does not detect the Zygomycetes such as Absidia, Mucor and Rhizopus (Jill et al. 1994) which are not known to produce (1-3)-Pclk-R-Fzcweq. In addition, the yeast phase of Blastomyces dermatitidis produces little (1-3)-Edle-Y-Jyaurf and may not be detected by the assay (Genna et al. 2007). Reference Range: Less than 60 pg/mL. Glucan values of less than 60 pg/mL are interpreted as negative. Glucan values of 60 to 79 pg/mL are interpreted as indeterminate, and suggest a possible fungal infection. Additional sampling and testing of sera is required to interpret the results. Glucan values of greater than or equal to 80 pg/mL are interpreted as positive. Due to the potential for environmental contamination when transferred to pour-off tubes, which can lead to false positive results, interpret positive results from samples provided in pour-off tubes with caution. Results should be used in conjunction with clinical findings, and should not form the sole basis for a diagnosis or treatment decision. The Fungitell test is approved or cleared for in vitro diagnostic use by the U.S Food and Drug Administration. Modifications to the approved package insert have been made and the performance characteristics for these modifications were determined by [employer]. If sample result is greater than 500 pg/mL, physician may order a titer of the sample. Please contact [employer] if you would like to order a retest of this sample to obtain an actual value. Samples are held for 1 week after initial testing date. FLAG Interpretation: A = Abnormal, H = High, L = Low Blood Structure of peripheral vein / Unknown Venipuncture / Unknown 04/14/2024 6:24 AM EST 04/14/2024 6:34 AM EST us Abelardo Medrano MD LAB BLOOD ORDERABLES Final Re sult [facility] [address] [place] [address], * Non-Gynecologic Cytology (04/13/2024 5:44 PM EST) Final Diagnosis Specimen 1: Ascites; Ascites Fluid Negative for malignant cells. [facility] MANUAL 04/16/2024 12:38 PM EST [facility] at 1238 EST Clinical History cirrhosis, new onset ascites [facility] MANUAL 04/16/2024 12:38 PM EST [facility] Gross Description Specimen 1: Received 80 mL hazy yellow fluid Made 1 ThinPrep and 1 Cell Block Total 2 slides [facility] MANUAL 04/16/2024 12:38 PM EST [facility] Embedded Images [facility] 04/16/2024 12:38 PM EST [facility] Disclaimer Some of these tests were developed and their performance characteristics determined by the Cytology Laboratory of [facility]. They have not been cleared or approved by the U.S. Food and Drug Administration. The FDA has determined that such clearance or approval is not necessary. This test is used for clinical purposes. It should not be regarded as investigational or for research. This laboratory is certified under the Clinical Laboratory Improvement Amendments of 1988 (CLIA-88) as qualified to perform high complexity clinical laboratory testing. [facility] MANUAL 04/16/2024 12:38 PM EST [facility] Resulting Agency Case was signed out at [facility], Department of Pathology, [facility] CLIA [id number] [facility] MANUAL 04/16/2024 12:38 PM EST [facility] Report Header Non-Gynecologic Cytology Report ? Case: [id number] ? Authorizing Provider: ??Abelardo Medrano MD ?Collected: ? 04/13/2024 1744 ? Ordering Location: ? [facility] ? Received: ?04/13/2024 1844 ? [place] ? 6 Intensive Care Unit ? Pathologist: ? Redd Felix MD ? Specimen: ?Ascites ? 04/16/2024 12:38 PM EST [facility] AN[facility] LAB[facility]ATORY Ascites Fluid Ascitic fluid / Unknown Non-Blood Collection / Unknown 04/13/2024 5:44 PM EST 04/13/2024 6:44 PM EST Abelardo Medrano MD LAB PATHOLOGY/CYTOLOGY ORDERA BLES Final Result Performing Organization Address [facility] de Phone Number [facility] ANATOMIC PATHOLOGY LABORATORY [address] [place] [address], [place] * Triglycerides, Body Fluid (04/13/2024 5:36 PM EST) Only the most recent of2 resultswithin the time period is included. Triglycerides, Fluid 19 mg/dL 04/13/2024 7:32 PM EST [facility] Comment: No reference range available. This test was developed and its performance characteristics determined by [facility] Clinical Labs. USFDA has not approved or cleared this test. FDA clearance or approval is not currently required for clinical use. The results are not intended to be used as the sole means for clinical diagnosis or patient management decisions. Body Fluid Specimen from peritoneum / Unknown Non-Blood Collection / Unknown 04/13/2024 5:36 PM EST 04/13/2024 6:43 PM EST Abelardo Medrano MD LAB BODY FLUIDS AND STOOLS OR DERABLES Final Result Performing Organization Address [facility] Co de Phone Number [facility] [address] [place] [address], [place] * Amylase, Body Fluid (04/13/2024 5:36 PM EST) Amylase, Fluid <10 U/L 04/13/2024 7:32 PM EST [facility] Comment: No reference range available. This test was developed and its performance characteristics determined by [facility] Clinical Labs. FD has not approved or cleared this test. FDA clearance or approval is not currently required for clinical use. The results are not intended to be used as the sole means for clinical diagnosis or patient management decisions. Body Fluid Specimen from peritoneum / Unknown Non-Blood Collection / Unknown 04/13/2024 5:36 PM EST 04/13/2024 6:43 PM EST Abelardo Medrano MD LAB BODY FLUIDS AND STOOLS OR DERABLES Final Result [facility] [address] [place] [address], [place] * Phosphatidylethanol (PEth) (04/12/2024 12:09 PM EST) Only the most recent of2 resultswithin the time period is included. PEth 16:0/18:1 (POPEth) <10 ng/mL 04/16/2024 11:50 AM EST [facility] Comment: PEth 16:0/18:1 (POPEth) Less than 10 ng/mL............Not detected Less than 20 ng/mL............Abstinence or light alcohol consumption 20 - 200 ng/mL................Moderate alcohol consumption Greater than 200 ng/mL........Heavy alcohol consumption or chronic alcohol use (Reference: Andie Collins and Angel Cloud 2018 J. Forensic Sci) PEth 16:0/18:2 (PLPEth) <10 ng/mL 04/16/2024 11:50 AM EST [facility] Comment:Reference ranges are not well established. EER Peth See Note 04/16/2024 11:50 AM EST [facility] Comment: Authorized individuals can access the [employer] Enhanced Report with an [employer] Connect account using the following link. Your local lab can assist you in obtaining the patient report if you don't have a Connect account. [email or web address] PEth Interpretation See Comment 03/27 11:50 AM EST [facility] Comment: Phosphatidylethanol (PEth) is a group of phospholipids formed in the presence of ethanol, phospholipase D and phosphatidylcholine. PEth is known to be a direct alcohol biomarker. The predominant PEth homologues are PEth 16:0/18:1 (POPEth) and PEth 16:0/18:2 (PLPEth), which account for 37-46% and 26-28% of the total PEth homologues, respectively. PEth is incorporated into the phospholipid membrane of red blood cells and has a general half-life of 4-10 days and a window of detection of 2-4 weeks. However, the window of detection is longer in individuals who chronically or excessively consume alcohol. The limit of quantification is 10 ng/mL. Serial monitoring of PEth may be helpful in monitoring alcohol abstinence over time. PEth results should be interpreted in the context of the patient's clinical and behavioral history. Patients with advanced liver disease may have falsely elevated PEth concentrations (Za SALEH et al 2018, Alcoholism Clinical & Experimental Research). This test was developed and its performance characteristics determined by [employer]. It has not been cleared or approved by the U.S. Food and Drug Administration. This test was performed in a CLIA-certified laboratory and is intended for clinical purposes. Performed By: [employer] [address] [id number] [place]: Cam Amaya MD, PhD CLIA Number: [id number] Blood Structure of peripheral vein / Unknown Venipuncture / Unknown 04/12/2024 12:09 PM EST 04/12/2024 12:18 PM EST us Abelardo Medrano MD LAB BLOOD ORDERABLES Final Re sult [facility] [employer] [address] [place] [address], [place] * CT Abd Pelvis WO Contrast (04/11/2024 10:01 PM EST) Anatomical Region Laterality Modality Body Computed Tomogra phy 04/11/2024 10:2 3 PM EST Impressions 04/11/2024 10:28 PM EST Cirrhosis with large volume ascites and splenomegaly. Cholelithiasis with collapsed gallbladder and cholecystostomy tube in place If this radiology report contains a blank impression section, it is an incomplete radiology report. ??Please contact the interpreting radiologist or applicable radiology division as soon as possible to obtain the completed interpretation. ? Workstation ID: [id number] Narrative 04/11/2024 10:28 PM EST COMPARISON: 01/29/2024 ?? FINDINGS: ABSENCE OF INTRAVENOUS CONTRAST DECREASES SENSITIVITY FOR DETECTION OF FOCAL LESIONS AND VASCULAR PATHOLOGY. LOWER THORAX: There is basilar atelectasis. HEPATOBILIARY: Cirrhotic liver morphology without focal lesion within noncontrast confines. ??The gallbladder is collapsed with a cholecystostomy tube present in satisfactory position. ??Multiple stones are seen without definite evidence of cholecystitis.. SPLEEN: Spleen is enlarged measuring 14.7 cm. PANCREAS: No focal masses or ductal dilatation. ADRENALS: No adrenal nodules. KIDNEYS/URETERS: Punctate intrarenal stones are seen on the left. ??No hydronephrosis or ureteral calculus. PELVIC ORGANS/BLADDER: Conteh catheter is present within a collapsed urinary bladder. PERITONEUM / RETROPERITONEUM: There is large volume ascites. ??No organized abscess. ??No free air. LYMPH NODES: No lymphadenopathy. VESSELS: There is atherosclerosis of the visualized arterial system.. GI TRACT: No distention or wall thickening. BONES AND SOFT TISSUES: There are scattered degenerative changes. ??No acute fracture or suspicious lesion is identified. . Resulting Agency Comment [id number] Procedure Note Elias Velásquez MD - 04/11/2024 COMPARISON: 01/29/2024 FINDINGS: ABSENCE OF INTRAVENOUS CONTRAST DECREASES SENSITIVITY FOR DETECTION OFFOCAL LESIONS AND VASCULAR PATHOLOGY. LOWER THORAX: There is basilar atelectasis. HEPATOBILIARY: Cirrhotic liver morphology without focal lesion withinnoncontrast confines. The gallbladder is collapsed with a cholecystostomytube present in satisfactory position. Multiple stones are seen withoutdefinite evidence of cholecystitis.. SPLEEN: Spleen is enlarged measuring 14.7 cm. PANCREAS: No focal masses or ductal dilatation. ADRENALS: No adrenal nodules. KIDNEYS/URETERS: Punctate intrarenal stones are seen on the left. Nohydronephrosis or ureteral calculus. PELVIC ORGANS/BLADDER: Conteh catheter is present within a collapsedurinary bladder. PERITONEUM / RETROPERITONEUM: There is large volume ascites. No organizedabscess. No free air. LYMPH NODES: No lymphadenopathy. VESSELS: There is atherosclerosis of the visualized arterial system.. GI TRACT: No distention or wall thickening. BONES AND SOFT TISSUES: There are scattered degenerative changes. Noacute fracture or suspicious lesion is identified. . IMPRESSION: Cirrhosis with large volume ascites and splenomegaly. Cholelithiasis with collapsed gallbladder and cholecystostomy tube inplace If this radiology report contains a blank impression section, it is anincomplete radiology report. Please contact the interpreting radiologistor applicable radiology division as soon as possible to obtain thecompleted interpretation. Workstation ID: [id number] Yovana Snyder MD IMG CT PROCEDURES Final Result * (ABNORMAL) Urinalysis W/Reflex to Microscopic (No Culture) (04/11/2024 8:27 PM EST) Color, Urine Deann(A) Colorless, Light Yellow, Yellow, Dark Yellow 04/11/2024 9:34 PM EST [facility] Clarity, Urine Cloudy(A) Clear 04/11/2024 9:34 PM EST [facility] Specific [place], Urine 1.019 1.005 - 1.030 04/11/2024 9:34 PM EST [facility] pH, Urine 5.0 4.6 - 8.0 04/11/2024 9:34 PM EST [facility] Protein, Urine 2+(A) Negative 04/11/2024 9:34 PM EST [facility] Glucose, Urine 1+(A) Negative 04/11/2024 9:34 PM EST [facility] Ketones, Urine Negative Negative 04/11/2024 9:34 PM EST [facility] Bilirubin, Urine Negative Negative 04/11/2024 9:34 PM EST [facility] Blood, Urine 1+(A) Negative 04/11/2024 9:34 PM EST [facility] Nitrite, Urine Negative Negative 04/11/2024 9:34 PM EST [facility] Urobilinogen, Urine Positive(A) Normal 04/11/2024 9:34 PM EST [facility] Leukocyte Esterase, Urine Trace(A) Negative 04/11/2024 9:34 PM EST [facility] WBC, Urine 21(H) 0 - 2 /HPF 04/11/2024 9:34 PM EST [facility] RBC, Urine 8(H) 0 - 2 /HPF 04/11/2024 9:34 PM EST [facility] Hyaline Casts, Urine >180(H) 0 - 2 /LPF 04/11/2024 9:34 PM EST [facility] Granular Casts, Urine 12 /LPF 04/11/2024 9:34 PM EST [facility] Squamous Epithelial Cells, Urine 3 /HPF 04/11/2024 9:34 PM EST [facility] Bacteria, Urine Rare(A) None /HPF /HPF 04/11/2024 9:34 PM EST [facility] Mucus, Urine Occasional /LPF 04/11/2024 9:34 PM EST [facility] Urine Urine specimen collection, clean catch / Unknown Non-Blood Collection / Unknown 04/11/2024 8:27 PM EST 04/11/2024 8:39 PM EST us Yovana Snyder MD LAB URINE ORDERABLES Final Res ult [facility] [address] [place] [address], * (ABNORMAL) Urea Nitrogen, Urine Random (04/11/2024 8:27 PM EST) Urea Nitrogen, Urine 177 mg/dL 04/12/2024 2:27 AM EST [facility] Creatinine, Urine 190 22 - 328 mg/dL 04/12/2024 2:27 AM EST [facility] Urea Nitrogen/Creat inine, Urine Ratio 0.9(L) 2.8 - 9.8 gm/gmCr 04/12/2024 2:27 AM EST [facility] Urine Voided urine specimen / Unknown Non-Blood Collection / Unknown 04/11/2024 8:27 PM EST 04/11/2024 8:39 PM EST us Janina Chung MD LAB URINE ORDERABLES Final Resul t Performing Organization Address [facility]/ZIP Co de Phone Number [facility] [facility] CLINICAL PATHOLOGY LABORATORY [address] [place] [address], [place] * Sodium, Random Urine with Creatinine (04/11/2024 8:27 PM EST) Sodium, Urine <20 mmol/L 04/11/2024 9:08 PM EST [facility] Creatinine, Urine 190 22 - 328 mg/dL 04/11/2024 9:08 PM EST [facility] Sodium/Creatin ine, Urine Ratio 04/11/2024 9:08 PM EST [facility] Comment:Unable to Calculate Urine Voided urine specimen / Unknown Non-Blood Collection / Unknown 04/11/2024 8:27 PM EST 04/11/2024 8:39 PM EST us Yovana Snyder MD LAB URINE ORDERABLES Final Res ult [facility] [employer] CLINICAL PATHOLOGY LABORATORY [address] [place] [address], [place] * Osmolality, Urine (04/11/2024 8:27 PM EST) Pathologist [facility] Osmolality, Ur 266 70 - 900 mOsm/kg 04/12/2024 1:44 AM EST [facility] CLINICAL PATHOLOG[facility] LABORATORY Urine Voided urine specimen / Unknown Non-Blood Collection / Unknown 04/11/2024 8:27 PM EST 04/11/2024 8:39 PM EST us Janina Chung MD LAB URINE ORDERABLES Final Resul t [facility] CLINICAL PATHOLOGY LABORATORY [address] [place] [address], * (ABNORMAL) POCT I-STAT Lactate W/VBG, interfaced (04/11/2024 6:21 PM EST) [facility] Sample Type, POCT Venous 04/11/2024 11:01 PM [facility], [facility] Lactate, POCT 3.80(H) 0.9 - 1.7 mmol/L 04/11/2024 11:01 PM [facility], [facility] pH, POCT 7.29(L) 7.31 - 7.41 pH 04/11/2024 11:01 PM [facility], [facility] pCO2, POCT 39.0(L) 41 - 51 mm Hg 04/11/2024 11:01 PM [facility], [facility] pO2, POCT 18(L) 35 - 40 mm Hg 04/11/2024 11:01 PM [facility], [facility] Base Excess, POCT -8(L) 0 - 3 mmol/L 04/11/2024 11:01 PM [facility], [facility] HCO3, POCT 18.7(L) 23 - 28 mmol/L 04/11/2024 11:01 PM [facility] TCO2, POCT 20(L) 24 - 29 mmol/L 04/11/2024 11:01 PM [facility], [facility] Saturated O2, POCT 22(L) 70 - 75 % 04/11/2024 11:01 PM EST [facility], [facility] FIO2, POCT 21 % 04/11/2024 11:01 PM EST [facility], [facility] Hilario's Test, POCT N/A 04/11/2024 11:01 PM EST [facility] Blood 04/11/2024 6:21 PM EST 04/11/2024 11:01 PM EST Yovana Snyder MD LAB POCT ORDERABLES - DEVICE F inal Result [facility], POC [address] [place] [address], * Fungus Culture, Blood (04/11/2024 6:21 PM EST) Culture No fungal growth at 4 Weeks 05/12/2024 1:00 PM EST [facility] Blood Structure of peripheral vein / Unknown Venipuncture / Unknown 04/11/2024 6:21 PM EST 04/11/2024 6:40 PM EST Narrative [facility] - 05/12/2024 1:00 PM EST [facility] Received Date: MICRO NUMBER: [id number] SPECIMEN QUALITY: Adequate SOURCE: BLOOD STATUS: FINAL Yovana Snyder MD LAB MICROBIOLOGY - GENERAL ORD ERABLES Final Result [facility] [address], [place] [address], [facility] [place] [address] [place] [address] * (ABNORMAL) Bilirubin, Total (04/11/2024 6:21 PM EST) Bilirubin, Total 1.6(H) 0.2 - 1.2 mg/dL 04/11/2024 7:12 PM EST [facility] CLINICAL PATHOLOG[facility] LABORAT[facility] Blood Structure of peripheral vein / Unknown Venipuncture / Unknown 04/11/2024 6:21 PM EST 04/11/2024 6:42 PM EST Yovana Snyder MD LAB BLOOD ORDERABLES Final Res ult [facility] CLINICAL PATHOLOGY LABORATORY [address] [place] [address], [place] * Lactic Acid, Body Fluid (04/11/2024 5:49 PM EST) SR Source Peritoneal Fluid 04/13/2024 4:24 PM EST [facility] Comment: Performed At: [facility] ([facility]) [facility] CLINICAL LABORATORY [place], [place] ??[address] Equipment Superintendent: J LUIS KLEIN DO CLIA Number: [id number] Lactic Acid, Body Fluid 8.3 mmol/L 04/13/2024 4:24 PM EST [facility] Comment: INTERPRETIVE INFORMATION: Lactic Acid, Body Fluid ?? Reference ranges for this assay have not been established for body fluid. Results should be interpreted in comparison to the lactic acid concerntration in blood and in conjunction with the clinical context. ?? This test was developed and its performance characteristics determined by [facility]. It has not been cleared or approved by the [place] Food and Drug Administration. This test was performed in a CLIA certified laboratory and is intended for clinical purposes. Performed At: [facility] ([facility]) [facility] CLINICAL LABORATORY [place], [place] ??[address] Equipment Superintendent: J LUIS KLEIN DO CLIA Number: [id number] Peritoneal Fluid Peritoneal cavity structure / Unknown Non-Blood Collection / Unknown 04/11/2024 5:49 PM EST 04/11/2024 6:55 PM EST Yovana Snyder MD LAB BODY FLUIDS AND STOOLS ORD ERABLES Final Result [facility] [address] [place] [address], [place] * pH, Body Fluid (04/11/2024 5:49 PM EST) Fluid Type Peritoneal 04/11/2024 7:26 PM EST [facility] CLINICAL PATHOLOGY LABORATORY pH, Fluid 7.26 04/11/2024 7:26 PM EST [facility] CLINICAL PATHOLOGY LABORATORY Comment: No reference range available. This test was developed and its performance characteristics determined by [facility] Clinical Labs. [facility] has not approved or cleared this test. FDA clearance or approval is not currently required for clinical use. The results are not intended to be used as the sole means for clinical diagnosis or patient management decisions. Peritoneal Fluid Peritoneal cavity structure / Unknown Non-Blood Collection / Unknown 04/11/2024 5:49 PM EST 04/11/2024 6:55 PM EST us Yovana Snyder MD LAB BODY FLUIDS AND STOOLS ORD ERABLES Final Result [facility] CLINICAL PATHOLOGY LABORATORY [address] [place] [address], * Paracentesis - ED (04/11/2024 5:47 PM EST) Narrative Yovana Snyder MD - 04/11/2024 5:47 PM EST Marc Lopez MD ? 04/11/2024 ??5:48 PM Paracentesis - ED Date/Time: 04/11/2024 5:47 PM Performed by: Marc Lopez MD Authorized by: Yovana Snyder MD ?? Consent: ? Written consent obtained: Yes ? Risk and benefits discussed: Yes ? Written informed consent was obtained from the patient and spouse. ? Patient states understanding of procedure being performed: Yes ? Patient's understanding of procedure matches consent: Yes Stanton Protocol: ? Procedure consent matches procedure scheduled: Yes ? Relevant tests/ Imaging studies available/reviewed: Yes ? Immediately prior to the procedure a time out was called: Yes Pre-procedure details: ??Procedure purpose: ??Diagnostic ??Preparation: Patient was prepped and draped in usual sterile fashion ?? Anesthesia (see MAR for exact dosages): ??Anesthesia method: ??Local infiltration ??Local anesthetic: ??Lidocaine 1% w/o epi Procedure details: ??Needle gauge: ??20 ??Ultrasound guidance: yes ?Puncture site: ??L lower quadrant ??Fluid removed amount: ??60 ??Fluid appearance: ??Yellow ??Dressing: ??4x4 sterile gauze and adhesive bandage Post-procedure details: ??Patient tolerance of procedure: ??Tolerated well, no immediate complications Yovana Snyder MD IN CLINIC/BEDSIDE ORDERABLES F inal Result * Osmolality, Serum (04/11/2024 5:26 PM EST) Osmolality 279 279 - 295 mOsm/kg 04/11/2024 6:59 PM EST [facility] CL[facility] PATH[facility] Blood Structure of peripheral vein / Unknown Venipuncture / Unknown 04/11/2024 5:26 PM EST 04/11/2024 6:12 PM EST Yovana Snyder MD LAB BLOOD ORDERABLES Final Res ult Performing Organization Address [facility]/ZIP Co de Phone Number [facility] CLINICAL PATHOLOGY LABORATORY [address] [place] [phone], * Acetaminophen Level (04/11/2024 5:26 PM EST) Pathologist [facility] Acetaminophen <5.0 <10.0 ug/mL 04/12/2024 10:44 AM EST [facility] CL[facility] PATHOLOG[facility] LAB[facility] Comment:Expected Range with Therapeutic Dosin-30 ug/mL Blood Structure of peripheral vein / Unknown Venipuncture / Unknown 04/11/2024 5:26 PM EST 04/11/2024 6:12 PM EST Abelardo Medrano MD LAB BLOOD ORDERABLES Final Re sult Performing Organization Address [facility]/ZIP Co de Phone Number [facility] CLINICAL PATHOLOGY LABORATORY [address] [place] [address], * ECG 12 lead (04/11/2024 5:17 PM EST) Ventricular Rate EKG 93 BPM MUSE EKG Atrial Rate 93 BPM MUSE EKG IN Interval 150 ms MUSE EKG QRS Interval 120 ms MUSE EKG QT Interval 408 ms MUSE EKG QTC Interval 507 ms MUSE EKG P [place] 6 degrees MUSE EKG R [place] -24 degrees MUSE EKG T Wave [place] 28 degrees MUSE EKG 04/11/2024 5:17 PM EST 04/15/2024 3:19 PM EST Impressions MUSE EKG - 04/15/2024 3:19 PM EST NORMAL SINUS RHYTHM CANNOT RULE OUT ANTERIOR INFARCT , AGE UNDETERMINED ABNORMAL ECG NO PREVIOUS ECGS AVAILABLE Confirmed by Ovidio Vaughn ([id number]) on 04/15/2024 3:19:22 PM Yovana Snyder MD ECG ORDERABLES Final Result Performing Organization Address City/[facility]/ZIP Co de Phone Number M[facility] EKG * Blood Culture Hold Bottles Set #1 (04/11/2024 5:01 PM EST) Blood Structure of peripheral vein / Unknown Venipuncture / Unknown 04/11/2024 5:01 PM EST 04/11/2024 5:32 PM EST Yovana Snyder MD LAB BLOOD ORDERABLES Final Res ult Performing Organization Address City/[facility]/ZIP Co de Phone Number [facility] CLINICAL PATHOLOGY LABORATORY [address] [place] [address], [place] * Lipase (04/11/2024 5:01 PM EST) Pathologist [facility] Lipase 16 13 - 60 U/L 04/11/2024 6:27 PM EST [facility] PATHOLOG[facility] LAB[facility] Blood Structure of peripheral vein / Unknown Venipuncture / Unknown 04/11/2024 5:01 PM EST 04/11/2024 5:35 PM EST Yovana Snyder MD LAB BLOOD ORDERABLES Final Res ult Performing Organization Address City/[facility]/ZIP Co de Phone Number [facility] CL[facility]ICAL PATHOLOG[facility] LABORATORY [address] [place] [address], [place] * Rapid COVID-19 RNA for Surveillance (04/11/2024 5:00 PM EST) PCR, SARS CoV-2 RNA Not Detected Not Detected [employer] 04/11/2024 6:19 PM EST [facility] [facility] Comment:A Not Detected (Nega tive) test result is indicative of the absence of SARS-CoV-2 RNA at the level of LoD (Limit of Detection). A negative result does not rule out the possibility of COVID-19 and should not be used as the sole basis for treatment or patient management decisions. If COVID-19 is still suspected, based on exposure history together with other clinical findings, re-testing should be considered. Swab (Nares) Non-Blood Collection / Unknown 04/11/2024 5:00 PM EST 04/11/2024 5:34 PM EST Narrative [facility] CLINICAL PATHOLOGY LABORATORY - 04/11/2024 6:19 PM EST This test was developed, validated and its performance characteristics determined by [facility] Clinical Labs. This test has not been cleared or approved by the U.S. Food and Drug Administration (FDA). FDA Policy for Diagnostic Tests for Coronavirus Disease-2019 during the Public Health Emergency issued June 09, 2019, is followed. Mike Low MD LAB BODY FLUIDS AND STOO LS ORDERABLES Final Result [facility] CLINICAL PATHOLOGY LABORATORY [address] [place] [address], [place] * ED POCUS Abdominal Single Organ (04/11/2024 4:35 PM EST) Anatomical Region Laterality Modality Body N/A Ultrasound 04/11/2024 4:35 PM EST Impressions 04/16/2024 1:37 PM EST Exam Information A tuthc-yd-zysu ultrasound was performed to assess the anatomy of the abdomen and evaluate for pathology such as small bowel obstruction or ascites or other pathology as noted below in this patient.. ?? Indication(s) for Exam The exam was performed [...] I agree with or have changed the resident? s findings as written above Limited ultrasounds performed in the Emergency Department are performed by emergency physicians at the patients bedside to address specific clinical questions. ??Additional imaging or testing may be required. Electronically signed by Marc Lopez MD on Electronically signed by Tomás Durham MD on [email or web address] Narrative Procedure Note Tomás Durham MD - 04/16/2024 IMPRESSION: Exam Information A eoqtr-lh-sgqc ultrasound was performed to assess the anatomy of theabdomen and evaluate for pathology such as small bowel obstruction orascites or other pathology as noted below in this patient.. Indication(s) for Exam The exam was performed with the following indications: Abdominal pain Views Obtained Images Saved for These Views Multiple real-time sonographic images wereobtained of the abdomen using curvilinear and/or linear multi-Hztransducers. Findings Is free fluid present Yes Dilated loops of small bowel greater than 2.5cm N/A not evaluated on thislimited ultrasound Peristalsis visualized N/A not evaluated on this limited ultrasound Impression . Intraperitoneal Free Fluid . All images have been reviewed by me and I agree with or have changedthe resident? s findings as written above Limited ultrasounds performed in the Emergency Department are performed byemergency physicians at the patients bedside to address specific clinicalquestions. Additional imaging or testing may be required. Electronically signed by Marc Lopez MD on Electronically signed by Tomás Durham MD on [email or web address] us Historical Conversion Provider IMG US PROCEDURES Final Result * HEART & VASCULAR - SCANNED (04/11/2024) Anatomical Region Laterality Modality Other us Onbase Scan Maria Esther SCANNED PROCEDURES Final Resu lt from Last 3 Months Insurance [employer] [facility] [employer] Advance Directives Documents on File Type Date Recorded Patient Police Radio Dispatcher Expl anation Health Care Proxy 04/17/2024 10:33 AM 03-27 Power of Hand Surgeon 04/17/2024 7:16 AM Health Care Proxy 04/16/2024 9:42 AM 04-16 * Full Code (Latest Code Status on File) Date Activated Date Inactivated Comments 04/24/2024 10:19 PM 05/03/2024 6:59 PM * Presumed Full Code Date Activated Date Inactivated Comments 04/24/2024 8:47 PM 04/24/2024 10:19 PM * Presumed Full Code Date Activated Date Inactivated Comments 04/24/2024 8:11 PM 04/24/2024 8:47 PM * Full Code Date Activated Date Inactivated Comments 04/11/2024 9:33 PM 04/19/2024 3:22 PM Healthcare Agents on File Name Relationship Healthcare Agent [facility] Communication Sana Correa Spouse Alternate Health Care Agent [email or web address] Care Teams Face Man Relationship Specialty Start Date End Date Jade Harper [address] [place] [address] dr Charly Parks, [place] [address] PCP - General Internal Medicine 03/06/24
--- OUTSIDE RECORDS SUMMARY | 2024-05-28 11:39 | XMS_ITS | Encounter Summary ---
Author Organization [facility] Address [address] [place] [address] Care Team Providers Care Energy Operations Vice President Name Role Phone Jade Harper Primary Care Provider [phone] Encounter Details Date Type Department Care Team (Late st Contact Info) Description 04/30/2024 Orders Only [facility] Interventional Radiology [address] [place] [address] Alondra Sage NP [address] [place], [place] [phone] Social History Tobacco Use Types Packs/Day Years Used Date Smoking Tobacco: Never Smokeless Tobacco: Never Alcohol Use Standard Drinks/Week Comments Not Currently 8 (1 standard drink = 0.6 oz pur e alcohol) sober since 11/2023 [facility] Utilities Answer Date Recorded In the past [...] Info) Description 5 10:30 AM EST Appointment [facility] Interventional Radiology [address] [place] [phone] Mike Rey i, MD [address] [place] [phone] 5 10:30 AM EDT Appointment [facility] Interventional Radiology [address] [place] [address] Mike Rey i, MD [address] [place] [phone] 5 2:00 PM EDT Pre-Admission Testing [facility] [address] [address] 5 10:00 AM EDT Appointment [facility] Interventional Radiology [address] [place] [address] Mike Rey i, MD [address] [place] [phone] 5 10:30 AM EDT Appointment [facility] Interventional Radiology [address] [place] [address] Mike Rey i, MD [address] [place] [address] 5 9:00 AM EDT Pre-Admission Testing [facility] 281 [facility] 3rd [place] [address] 5 10:30 AM EDT Appointment [facility] Interventional Radiology [address] [place] [address] Mike Rey i, MD [address] [place] [address] 5 10:30 AM EDT Appointment [facility] Interventional Radiology [address] [place] [address] Mike Rey i, MD [address] [place] [phone] 5 8:30 AM EDT Hospital Encounter [facility] Operating Room [address] [place] [address] Rachel Murray MD [address] [place] [phone] 5 8:30 AM EDT - 5 9:30 AM EDT Surgery [facility] Operating Room [address] [place] [address] Rachel Murray MD [address] [place] [phone] ENDOSCOPIC RETROGRADE CHOLANGIOPANCREATOGRAPHY WITH REMOVAL OF FOREIGN BODY(S)/STENT(S)/PANCREATIC DUCT(S) WITH POSSIBLE MODERATE SEDATION [50952 (CPT??)] 5 10:30 AM EDT Appointment [facility] Interventional Radiology [address] [place] [phone] Mike Rey i, MD [address] [place] [address] [phone] 5 4:30 PM EDT Follow-Up [facility] Liver Transplant Services [address] [place] [phone] Mike Rey i, MD [address] [place] [address]94 5 10:30 AM EDT Appointment [facility] Interventional Radiology [address] [place] [address] Mike Rey i, MD [address] [place] [address] [phone] 5 10:30 AM EDT Appointment [facility] Interventional Radiology [address] [place] [phone] Mike Rey i, MD [address] [place] [phone] 5 10:30 AM EDT Appointment [facility] Interventional Radiology [address] [place] [phone] Mike Rey i, MD [address] [place] [phone] 5 10:30 AM EDT Appointment [facility] Interventional Radiology [address] [place] [address] Mike Rey i, MD [address] [place] [address] [phone] 5 10:30 AM EDT Appointment [facility] Interventional Radiology [address] [place] [phone] Mike Rey i, MD [address] [place] [address] [phone] 5 10:30 AM EDT Appointment [facility] Interventional Radiology [address] [place] [address] Mike Rey i, MD [address] [place] [phone] 5 10:30 AM EDT Appointment [facility] Interventional Radiology [address] [place] [phone] Mike Rey i, MD [address] [place] [phone] 5 10:30 AM EDT Appointment [facility] Interventional Radiology [address] [place] [phone] Mike Rey i, MD [address] [place] [address] [phone] 5 10:30 AM EDT Appointment [facility] Interventional Radiology [address] [place] [phone] Mike Rey i, MD [address] [place] [address] [phone] 5 10:30 AM EDT Appointment [facility] Interventional Radiology [address] [place] [phone] Mike Rey i, MD [address] [place] [phone] 10:30 AM EDT Appointment [facility] Interventional Radiology [address] [place] [address] Mike Rey i, MD [address] [place] [address] Scheduled Procedures Name Priority Associated Diagnoses Date/Ti me ENDOSCOPIC RETROGRADE CHOLANGIOPANCREATOGRAPHY WITH REMOVAL OF FOREIGN BODY(S)/STENT(S)/PANCREATIC DUCT(S) WITH POSSIBLE MODERATE SEDATION Encounter for removal of biliary stent 07/04/2024 8:30 AM EDT LAPAROSCOPIC CHOLECYSTECTOMY Acute cholecystitis documented as of this encounter Visit Diagnoses Not on filedocumented in this encounter Care Teams Energy Operations Vice President Relationship Specialty Start Date End Date Po, Jade No [address] [place] [address] [place] [address] PCP - General Internal Medicine 03/06/24 documented as of this encounter
--- OUTSIDE RECORDS SUMMARY | 2024-05-28 11:39 | XMS_ITS | Referral Summary ---
Author Organization [facility] Address [address] [place] [address] Care Team Providers Care Cathode [employer] Processor Name Role Phone Jade Harper Primary Care Provider [phone] Encounters Date Type Department Care Team Description 05/23/2024 9:57 AM EST - 05/23/2024 11:59 PM [facility] Hospital Encounter [facility] Interventional Radiology [address] [place] [address] Mike Low MD Alcoholic cirrhosis of liver with ascites (CMS/HCC) (HCC) Discharge Disposition: Home or Self Care () 05/22/2024 Telephone [facility] Transplant Department [address] [place] [address] Lisa PayneWestchester Square Medical Centersocial services director 05/22/2024 Telephone [facility] Interventional Radiology [address] [place] [address] Hoa Durbin RN 05/20/2024 myChart Message [facility] Liver Transplant Services [address] [place] [address] Lorie Mahoney RN Medicatoins 05/20/2024 1:00 PM EST - 05/20/2024 11:59 PM EST Hospital Encounter [facility] Interventional Radiology [address] [place] [address] Mike Low MD Alcoholic cirrhosis of liver with ascites (CMS/HCC) (HCC); Cholecystitis; SBP (spontaneous bacterial peritonitis) (HCC) Discharge Disposition: Home or Self Care (01) 05/19/2024 Orders Only [facility] Transplant Department [address] [place] [address] 96183 Lorie Mahoney RN Alcoholic cirrhosis of liver with ascites (CMS/HCC) (HCC) (Primary Dx) 05/16/2024 Results Follow-Up [facility] Liver Transplant Services [address] [place] [address] 03282 Mike Low MD 05/16/2024 Orders Only [facility] Liver Transplant Services [address] [place] [address] 70407 Mike Low MD Alcoholic cirrhosis of liver with ascites (CMS/HCC) (HCC) (Primary Dx) 05/16/2024 myChart Message [facility] Liver Transplant Services [address] [place] [address] 65356 Mike Low MD paracentesis (fluid tap) 05/16/2024 Results Follow-Up [facility] Liver Transplant Services [address] [place] [address] 60179 Alondra Aceves RN 05/16/2024 Telephone [facility] Interventional Radiology [address] [place] [address] 47071 Chela Tatum, FISH 05/15/2024 Abstract [facility] Transplant Department [address] [place] [address] 35618 Damaris Garcias 05/15/2024 12:15 PM EST - 05/15/2024 11:59 PM EST Hospital Encounter [facility] Interventional Radiology [address] [place] [address] 71256 Mike Low MD Heglin, Kurt L RN Alcoholic cirrhosis of liver with ascites (CMS/HCC) (HCC) Discharge Disposition: Home or Self Care () 05/15/2024 Refill [facility] Transplant Department [address] [place] [address] 41962 Orlando Isabella 05/15/2024 Telephone [facility] Interventional Radiology [address] [place] [address] 59024 Hoa Durbin RN 05/15/2024 11:00 AM EST Follow-Up [facility] Liver Transplant Services [address] [place] [address] 35446 Mike Low MD Alcoholic cirrhosis of liver with ascites (CMS/HCC) (HCC) (Primary Dx); Cholecystitis; SBP (spontaneous bacterial peritonitis) (HCC) 05/13/2024 Telephone [facility] Transplant Department [address] [place] [address] 88984 Tiffany Correa 05/09/2024 Orders Only [facility] Transplant Department [address] [place] [address] 94914 Alondra Aceves, LATOSHA Alcoholic cirrhosis of liver with ascites (CMS/HCC) (HCC) (Primary Dx) 05/09/2024 9:02 AM EST - 05/09/2024 11:59 PM EST Hospital Encounter [facility] Interventional Radiology [address] [place] [address] 89262 Mike Low MD Alcoholic cirrhosis of liver with ascites (CMS/HCC) (HCC) Discharge Disposition: Home or Self Care () 05/08/2024 Telephone [facility] Interventional Radiology [address] [place] [address] 75549 Kimberly Caruso RN 05/07/2024 Orders Only [facility] Transplant Department [address] [place] [address] 17081 Lorie Mahoney RN 05/07/2024 Orders Only [facility] Interventional Radiology [address] [place] [address] J Luis Melgar PA 05/07/2024 Orders Only [facility] Interventional Radiology [address] [place] [address] Karlene Mehta PA 04/24/2024 5:35 PM EST - 05/03/2024 4:53 PM EST Hospital Encounter [facility] [address] [place] [address] Dana Samuels MD Barry, Curtis T., MD Zivny, Jaroslav, MD Devuni, Delmis Corral MD Spontaneous bacterial peritonitis (HCC) (Primary Dx); Cholecystitis; Decompensated cirrhosis (HCC) Discharge Disposition: Home with Services (06) 05/02/2024 Documentation [facility] Transplant Department [address] [place] [address] 77537 Alondra Aceves, LATOSHA ABO Dual Validation 05/02/2024 Documentation [facility] Transplant Department [address] [place] [address] 55284 Lorie Mahoney RN ABO Dual Validation 05/02/2024 1:59 PM EST Anesthesia Event [facility] Operating Room [address] [place] [address] 24365 Grady Riley MD 05/02/2024 12:45 PM EST - 05/02/2024 1:45 PM EST Surgery [facility] Operating Room [address] [place] [address] Rachel Murray MD ENDOSCOPIC RETROGRADE CHOLANGIOPANCREATOG WALTER, DIAGNOSTIC WITH POSSIBLE BRUSHING OR WASHING AND POSSIBLE MODERATE SEDATION [40044 (CPT??)] 04/30/2024 Orders Only [facility] Interventional Radiology [address] [place] [address] Alondra Sage NP 04/29/2024 4:21 PM EST Anesthesia Event [facility] Operating Room [address] [place] [address] Grady Riley MD 04/29/2024 1:00 PM EST - 04/29/2024 2:00 PM EST Surgery [facility] Operating Room [address] [place] [address] Rachel Murray MD ENDOSCOPIC RETROGRADE CHOLANGIOPANCREATOG WALTER, DIAGNOSTIC WITH POSSIBLE BRUSHING OR WASHING AND POSSIBLE MODERATE SEDATION [93345 (CPT??)] 04/25/2024 Telephone [facility] Building [address] [place] [address] Alondra Cohn CPhT Prior Authorization 04/24/2024 Orders Only [facility] Transplant Department [address] [place] [address] 92878 Lorie Mahoney RN Alcoholic cirrhosis of liver with ascites (CMS/HCC) (HCC) (Primary Dx) 04/24/2024 12:50 PM EST Lab [facility] [place] [facility] Draw Site [address] [place] [address] Alcoholic cirrhosis of liver with ascites (CMS/HCC) (HCC) 04/24/2024 Orders Only [facility] Transplant Department [address] [place] [address] 27726 Lorie Mahoney RN 04/24/2024 Orders Only [facility] Transplant Department [address] [place] [address] 15106 Lorie Mahoney, RN Alcoholic cirrhosis of liver with ascites (CMS/HCC) (HCC) (Primary Dx) 04/24/2024 Orders Only [facility] Transplant Department [address] [place] [address] 97613 Addison Sales MD 04/24/2024 Telephone [facility] Interventional Radiology [address] [place] [address] Tyesha Mar RN 04/24/2024 11:45 AM EST Office Visit [facility] Transplant Services [address] [place] [address] 07569 Eugenio Chavez III, MD Decompensated cirrhosis (HCC) (Primary Dx); Cholecystitis; Moderate protein-calorie malnutrition (CMS/HCC); SBP (spontaneous bacterial peritonitis) (HCC); Encounter for pre-transplant evaluation for liver transplant 04/24/2024 1:35 PM EST - 04/24/2024 5:34 PM EST Hospital Encounter [facility] Interventional Radiology [address] [place] [address] 28306 Delmis Joseph MD Alcoholic cirrhosis of liver with ascites (CMS/HCC) (HCC) Discharge Disposition: Home or Self Care () 04/24/2024 11:00 AM EST Follow-Up [facility] Transplant Services [address] [place] [address] 20868 Mike Low MD Alcoholic cirrhosis of liver with ascites (CMS/HCC) (HCC) (Primary Dx) 04/23/2024 Telephone [facility] Interventional Radiology [address] [place] [address] 63051 Tyesha Mar RN 04/23/2024 Refill [facility] Transplant [facility] [address] [place] [address] 51061 Mike Low MD 04/21/2024 Refill [facility] [address] [place] [address] 87635 Mike Low MD 04/21/2024 Orders Only [facility] Inter[facility] Radiology [address] [place] [address] 49848 Sonia Khoury NP 04/21/2024 Refill [facility] [address] [place] [address] 37165 Mike Low MD 04/21/2024 Refill [facility]plant [facility] [address] [place] [address] Mike Low MD 04/21/2024 Orders Only [facility] Transplant Department [address] [place] [address] 46132 Lorie Mahoney RN 04/21/2024 Orders Only [facility] Transplant Department [address] [place] [address] 31295 Lorie Mahoney RN Alcoholic cirrhosis of liver with ascites (CMS/HCC) (HCC) (Primary Dx) 04/11/2024 4:29 PM EST - 04/19/2024 1:16 PM EST Hospital Encounter [facility] [address] [place] [address] 82967 Yovana Snyder MD Mullen, Marie, MD Toomey, Shaun M., Zina Tam I., Martha Richter, MD Joseph, Delmis Corral MD Septic shock (HCC) (Primary Dx); Hypotension; SBP (spontaneous bacterial peritonitis) (HCC); Decompensated cirrhosis (HCC); Metabolic acidosis; MARÍA (acute kidney injury) (HCC); Hyponatremia Discharge Disposition: Home with Services (06) 04/18/2024 Orders Only [facility] Interventional Radiology [address] [place] [address] 92073 Malathi Brambila MD 04/18/2024 Orders Only [facility] Transplant Department [address] [place] [address] 18530 Lorie Mahoney RN Alcoholic cirrhosis of liver with ascites (CMS/HCC) (HCC) (Primary Dx); Encounter for pre-transplant evaluation for liver transplant 04/16/2024 Abstract [facility] Transplant Department [address] [place] [address] 03521 Lisa Payne [employer]ELDER [employer] 04/03/2024 11:59 PM EST Anesthesia Event [facility] Operating Room [address] [place] [address] 60299 Vitaliy Arshad CRNA 04/11/2024 Orders Only [facility] Transplant Department [address] [place] [address] 51080 Lorie Mahoney RN 04/11/2024 11:00 AM EST Follow-Up [facility] Transplant [facility] [address] [place] [address] 20871 Mike Low MD Acute cholecystitis (Primary Dx); Alcoholic cirrhosis of liver with ascites (CMS/HCC) (HCC) 04/11/2024 10:30 AM EST Follow-Up [facility] Transplant [facility] [address] [place] [address] 47190 Christiano Slaes MD PhD Alcoholic cirrhosis of liver with ascites (CMS/HCC) (HCC) 04/11/2024 Telephone [facility] Transplant Department [address] [place] [address] 66113 Heaven Erwin MD MPH 03/27/2024 Prep for Case [facility] Transplant Department [address] [place] [address] 00191 Heaven Erwin MD MPH 03/21/2024 Prep for [facility] Transplant Department [address] [place] [address] 97324 Heaven Erwin MD MPH Acute cholecystitis (Primary Dx) 03/21/2024 11:00 AM EST Office Visit [facility] Transplant Services [address] [place] [address] 69802 Heaven Erwin MD MPH Alcoholic cirrhosis of liver with ascites (CMS/HCC) (HCC) (Primary Dx); Acute cholecystitis 03/18/2024 10:45 AM EST Lab [facility] [place] Lab Draw Site [address] [place] [address] 12465 Encounter for pre-transplant evaluation for liver transplant 03/18/2024 2:00 PM EST Social Work [facility] Transplant Services [address] [place] [address] Cely Brenner, [facility] 03/18/2024 12:00 PM EST Evaluation [facility] [address] [place] [address] Lorie Mahoney, LATOSHA Encounter for pre-transplant evaluation for liver transplant (Primary Dx) 03/18/2024 1:00 PM EST Office Visit [facility]plant [facility] [address] [place] [address] 35919 Mike Low MD Alcoholic cirrhosis of liver with ascites (CMS/HCC) (HCC) (Primary Dx); Acute cholecystitis 03/17/2024 Orders Only [facility] Transplant Department [address] [place] [address] 99122 Lorie Mahoney RN Encounter for pre-transplant evaluation for liver transplant (Primary Dx) 03/13/2024 Orders Only [facility] Transplant Department [address] [place] [address] 89002 Lorie Mahoney RN Encounter for pre-transplant evaluation for liver transplant (Primary Dx) 03/06/2024 Orders Only [facility] Transplant Department [address] [place] [address] 26233 ProviderAddison MD from Last 3 Months Allergies No known active allergies Medications acetaminophen (TYLENOL) 500 mg tablet Take 500 mg by mouth every 6 hours as needed for pain. Active spironolacton e (ALDACTONE) 50 mg tablet Take 2 tablets (100 mg total) by mouth once a day. 60 tablet 11 025 2025 Active furosemide (LASIX) 20 mg tablet Take 2 tablets (40 mg total) by mouth once a day. 180 tablet 3 025 2025 Active rifAXIMin (XIFAXAN) 550 mg tablet Take 1 tablet (550 mg total) by mouth every 12 hours. 180 tablet 3 025 2025 Active lactulose 10 gram/15 mL solution Take 30 mL (20 g total) by mouth 3 times a day. 8100 mL 3 025 2025 Active ciprofloxacin (CIPRO) 500 mg tablet Take 1 tablet (500 mg total) by mouth every 24 hours. 90 tablet 12 2027 Active midodrine (PROAMATINE) 5 mg tablet Take 3 tablets (15 mg total) by mouth every 8 hours. 810 tablet 3 2025 Active sodium chloride 0.9 % syringe Use 1 syring (10ml) to fluch cholecystostomy tube up to 3 times a day. 600 mL 3 05/15/19 3:34 PM EST Active polyethylene glycol 3350 (MIRALAX) 17 gram packet Take 1 packet (17 g total) by mouth daily as needed for constipation. Mix powder in 4 to 8 oz of water, juice, coffee, or tea prior to administration. 30 packet 2024 Discontinued traZODone (DESYREL) 50 mg tablet Take 1 tablet (50 mg total) by mouth nightly as needed for sleep. 30 tablet 04/19/19 12:03 PM EST 2024 Discontinued lactulose 10 gram/15 mL solution Take 15 mL (10 g total) by mouth 3 times a day. 1350 mL 2 04/19/19 12:03 PM EST 2024 Discontinued(S top Taking at Discharge) Active [...] IR with plan for outpatient cholecystectomy on 1/24. However, in the interim, cholecystostomy tube obstructed [...] Zosyn (D1: 04/24-04/27) - Continue ceftriaxone (D1: 3-), 7-10 day course total and through procedures [...] 3-) - Flush drain 3 times a day; [...] Plan for stent exchange in cystic duct 2 Assessment & Plan (04/25/2024 7:01 PM EST): [...] - hold lisinopril iso hypotension and MARÍA Immunizations Immunization Administration Dates Next Due INFLUENZA, SPLIT VIRUS, TRIVALENT, PF 04/12/2024 (Deferred: Patient Refused) Social History Tobacco Use Types Packs/Day Years Used Date Smoking Tobacco: Never Smokeless Tobacco: Never Tobacco Cessation:Counseling Given: Not Answered Alcohol Use Standard Drinks/Week Comments Not Currently 8 (1 standard drink = 0.6 oz pur e alcohol) sober since 11/2023 [facility] Utilities Answer Date Recorded In the [...] Info) Description 5 10:30 AM EST Appointment [facility] Interventional Radiology [address] [place] [address] 10853 Mike Rey i, MD [address] [place] [address] [id number] 5 10:30 AM EDT Appointment [facility] Interventional Radiology [address] [place] [address] Mike Rey i, MD [address] [place] [address] 5 2:00 PM EDT Pre-Admission Testing [facility] [address] [facility] [address] [place] [address] 5 10:00 AM EDT Appointment [facility] Interventional Radiology [address] [place] [address] Mike Rey i, MD [address] [place] [address] 5 10:30 AM EDT Appointment [facility] Interventional Radiology [address] [place] [address] Mike Rey i, MD [address] [place] [address] 05921 5 9:00 AM EDT Pre-Admission Testing [facility] [address] [facility] 3rd [place] [address] 5 10:30 AM EDT Appointment [facility] Interventional Radiology [address] [place] [address] 04304 Mike Rey i, MD [address] [place] [address] 07310 5 10:30 AM EDT Appointment [facility] Interventional Radiology [address] [place] [address] 87018 Mike Rey i, MD [address] [place] [address] [phone] 5 8:30 AM EDT Hospital Encounter [facility] Operating Room [address] [place] [address] 28692 Rachel Murray MD [address] [place] [address] 29153 5 8:30 AM EDT - 5 9:30 AM EDT Surgery [facility] Operating Room [address] [place] [address] 83350 Rachel Murray MD [address] [place] [address] 80758 ENDOSCOPIC RETROGRADE CHOLANGIOPANCREATOGRAPHY WITH REMOVAL OF FOREIGN BODY(S)/STENT(S)/PANCREATIC DUCT(S) WITH POSSIBLE MODERATE SEDATION [35392 (CPT??)] 5 10:30 AM EDT Appointment [facility] Interventional Radiology [address] [place] [address] 40029 Mike Rey i, MD [address] [place] [address] 5 4:30 PM EDT Follow-Up [facility] Liver Transplant Services [address] [place] [address] 45741 Mike Rey i, MD [address] [place] [address] 66906 5 10:30 AM EDT Appointment [facility] Interventional Radiology [address] [place] [address] 51581 Mike Rey i, MD [address] [place] [address] 96593 5 10:30 AM EDT Appointment [facility] Interventional Radiology [address] [place] [address] 71780 Mike Rey i, MD [address] [place] [address] [phone] 5 10:30 AM EDT Appointment [facility] Interventional Radiology [address] [place] [address] 49559 Mike Rey i, MD [address] [place] [address] [phone] 5 10:30 AM EDT Appointment [facility] Interventional Radiology [address] [place] [address] 68938 Mike Rey i, MD [address] [place] [address] 46633 5 10:30 AM EDT Appointment [facility] Interventional Radiology [address] [place] [address] 81841 Mike Rey i, MD [address] [place] [address] [phone] 5 10:30 AM EDT Appointment [facility] Interventional Radiology [address] [place] [address] 05373 Mike Rey i, MD [address] [place] [address] [phone] 5 10:30 AM EDT Appointment [facility] Interventional Radiology [address] [place] [address] 09289 Mike Rey i, MD [address] [place] [address] 52852 5 10:30 AM EDT Appointment [facility] Interventional Radiology [address] [place] [address] 67984 Mike Rey i, MD [address] [place] [address] 81405 5 10:30 AM EDT Appointment [facility] Interventional Radiology [address] [place] [address] 18061 Mike Rey i, MD [address] [place] [address] [phone] 5 10:30 AM EDT Appointment [facility] Interventional Radiology [address] [place] [address] Mike Rey i, MD [address] [place] [address] 10:30 AM EDT Appointment [facility] Interventional Radiology [address] [place] [address] Mike Rey i, MD [address] [place] [address] Scheduled Procedures Name Priority Associated Diagnoses Date/Ti ut ENDOSCOPIC RETROGRADE CHOLANGIOPANCREATOGRAPHY WITH REMOVAL OF FOREIGN BODY(S)/STENT(S)/PANCREATIC DUCT(S) WITH POSSIBLE MODERATE SEDATION Encounter for removal of biliary stent 07/04/2024 8:30 AM EDT LAPAROSCOPIC CHOLECYSTECTOMY Acute cholecystitis Medical Devices Implanted Type Area Wet Milling Wheel Operator Device Identifier Shelf Expiration Date Model / Serial / Lot Stent Biliary Rx Fully Covered Self Expanding Metallic Rmv With Permalume Covering 8.5fr [id number] Wallflex - [id number] Implanted:Qty: 1 on 04/29/2024 by Rachel Murray MD at [facility] Stent N/A: Bile Duct [employer] 12/27/2025 [id number] / / [id number] Stent Biliary Double Pigtail Polyethylene Purple 7fr 5cm Zimmon - [id number] - [id number] Implanted:Qty: 1 on 05/02/2024 by Rachel Murray MD at [facility] Stent N/A: Bile Duct [employer] 06/28/2025 [id number] / [id number] / [id number] Description:PLACED IN CYSTIC DUCT Stent Biliary Double Pigtail W/Introducer 10fr 4cm Solus - [id number] - [id number] Implanted:Qty: 1 on 05/02/2024 by Rachel Murray MD at [facility] Stent N/A: Bile Duct [employer] 05/02/2025 [id number] / [id number] / Description:PLACED IN CBD Explanted Type Area Wet Milling Wheel Operator Device Identifier Shelf Expiration Date Model / Serial / Lot Stent Advanix Pancreatic Pigtail Lb 5fr X 7cm - [id number] - [id number] Explanted:Qty: 1 on 04/29/2024 by Rachel Murray MD at [facility] Stent [employer] 04/09/2025 [id number] / [id number] / [id number] Procedures * Due to [place] state law, this organization might not be [...] NON-REPORTABLE Routine 05/02/2024 4:31 PM EST Cholecystitis [place] ERCP DX COLLECTION SPECIMEN BRUSHING/WASHING 05/02/2024 1:54 [...] NON-REPORTABLE Routine 04/29/2024 5:59 PM EST Cholecystitis WY ERCP DX COLLECTION SPECIMEN BRUSHING/WASHING 04/29/2024 4:16 PM EST Cholecystitis [place] ABDOM PARACENTESIS DX/THE R W IMAGING GUIDANCE [...] PCR, NASAL STAT 025 6:13 AM EST HARVEY TOP, URN Routine 04/25/2024 [...] W/GRAM STAIN Routine 04/17/2024 3:53 PM EST [place] ABDOM PARACENTESIS DX/THE R W IMAGING GUIDANCE [...] RPR (DIAGNOSIS) W/REFLEX TO TITER & TPPA [id number] Routine 04/17/2024 9:32 AM EST RHEUMATOID FACTOR Routine 04/17/2024 9:32 AM EST QUANTIFERON-TB GOLD PLUS, 1 [id number] Routine 04/17/2024 9:32 AM EST PROTEIN ELECTROPHORESIS [...] ANTIBODY, TOTAL Routine 03/27 9:32 AM EST BRANDEE-HUTSON VIRUS VCA, IGG Routine 03/27 9:32 AM EST HEMOGLOBIN A1C Routine 04/17/2024 9:32 AM EST CYTOMEGALOVIRUS ANTIBODY, IGG Routine 9:32 AM EST CERULOPLASMIN Routine 04/17/2024 9:32 AM EST CEA Routine 04/17/2024 9:32 AM EST MITOCHONDRIAL ANTIBODY W/REFLEX Routine 04/17/2024 9:32 AM EST MERT SCREEN, IFA, W/REFLEX TO TITER & PATTERN Routine 04/17/2024 9:32 AM EST AFP TUMOR MARKER Routine 04/17/2024 9:32 AM EST [id number] Routine 04/17/2024 9:32 AM EST POCT GLUCOSE [...] POCT GLUCOSE Routine 04/12/2024 12:11 PM EST [id number] Timed 04/12/2024 12:09 PM EST [...] Encounter for pre-transplant evaluation for liver transplant [id number] Routine 03/18/2024 10:52 AM EST Encounter for pre-transplant evaluation for liver transplant from Last 3 Months Results * Due to [place] state law, this organization might not be [...] provide assistance and guidance throughout the procedure. SUPERVISOR INSPECTING: JULIANE Coleman SEDATION: None DURATION: ??30 minutes [...] the fluid were sent for laboratory assays. us Mike Low MD IMG IR PROCEDURES Final Result * Bilirubin, Body Fluid (05/23/2024 11:16 AM EST) Only the most recent of3 resultswithin the time period is included. Bilirubin, Fluid 1.3 mg/dL 05/23/19 1:22 PM EST [facility] Comment: No reference range available. This test was developed and its performance characteristics determined by [facility] Clinical Labs. [employer] has not approved or cleared this test. FDA clearance or approval is not currently required for clinical use. The results are not intended to be used as the sole means for clinical diagnosis or patient management decisions. Body Fluid Peritoneal cavity structure / Unknown 05/23/2024 11:16 AM EST 05/23/2024 11:32 AM EST us Mike Low MD LAB BODY FLUIDS AND STOO LS ORDERABLES Final Result [facility] [address] [place] [address], [place] * (ABNORMAL) Cell Count w/Differential, Peritoneal (05/23/2024 11:16 AM EST) Only the most recent of7 resultswithin the time period is included. Color, Peritoneal Straw Colorless, Yellow, Straw 05/23/2024 12:35 PM EST [facility] Appearance, Peritoneal Cloudy(A ) Clear 05/23/2024 12:35 PM EST [facility] CLINICAL PATHOLOGY LABORATORY TNC/WBC, Peritoneal 303(H) <=250 cells/mm3 05/23/2024 12:35 PM EST [facility] CLINICAL PATHOLOGY LABORATORY Comment:Values of TNC <=250 do not rule out abnormality. Clinical correlation is advised. RBC, Peritoneal 6,000 Not established cells/mm3 05/23/2024 12:35 PM EST [facility] CLINICAL PATHOLOGY LABORATORY Lymphocytes %, Peritoneal 71 % 05/23/2024 12:35 PM EST [facility] CLINICAL PATHOLOGY LABORATORY [place]/Macrophage %, Peritoneal 29 % 05/23/2024 12:35 PM EST [facility] CLINICAL PATHOLOGY LABORATORY Differential Cells Counted, Peritoneal 05/23/2024 12:35 PM EST [facility] CLINICAL PATHOLOGY LABORATORY Body Fluid Peritoneal cavity structure / Unknown 05/23/2024 11:16 AM EST 05/23/2024 11:32 AM EST Comment:HCC asities us Mike Low MD LAB BODY FLUIDS AND STOO LS ORDERABLES Final Result Performing Organization Address City/[facility]/ZIP Co de Phone Number [facility] CLINICAL PATHOLOGY LABORATORY [address] [place] [address], [place] * STAT Gram Stain (05/23/2024 11:16 AM EST) Only the most recent of4 resultswithin the time period is included. Gram Stain, STAT No organisms seen 05/23/2024 2:10 PM EST [facility] CLINICAL PATHOLOGY LABORATORY Gram Stain, STAT 1+ Mononuclear Cells 05/23/2024 2:10 PM EST [facility] CLINICAL PATHOLOGY LABORATORY Body Fluid Peritoneal cavity structure / Unknown 05/23/2024 11:16 AM EST 05/23/2024 11:32 AM EST us Mike Low MD LAB MICROBIOLOGY - GENER AL ORDERABLES Final Result [facility] CLINICAL PATHOLOGY LABORATORY [address] [place] [address], [place] * Protein, Body Fluid (05/23/2024 11:16 AM EST) Only the most recent of5 resultswithin the time period is included. Protein, Fluid 2.9 g/dL 05/23/2024 1:09 PM EST [facility] CLINICAL PATHOLOGY LABORATORY Comment: No reference range available. This test was developed and its performance characteristics determined by [facility] Clinical Labs. FDA has not approved or cleared this test. FDA clearance or approval is not currently required for clinical use. The results are not intended to be used as the sole means for clinical diagnosis or patient management decisions. Body Fluid Peritoneal cavity structure / Unknown 05/23/2024 11:16 AM EST 05/23/2024 11:32 AM EST Comment:[facility] asities us Mike Low MD LAB BODY FLUIDS AND STOO LS ORDERABLES Final Result [facility] CLINICAL PATHOLOGY LABORATORY [address] [place] [address], [place] * Lactate Dehydrogenase, Body Fluid (05/23/2024 11:16 AM EST) Only the most recent of5 resultswithin the time period is included. LDH, Fluid 104 U/L 05/23/2024 1:09 PM EST [facility] CLINICAL PATHOLOGY LABORATORY Comment: No reference range available. This test was developed and its performance characteristics determined by [facility] Clinical Labs. [facility] has not approved or cleared this test. FDA clearance or approval is not currently required for clinical use. The results are not intended to be used as the sole means for clinical diagnosis or patient management decisions. Body Fluid Peritoneal cavity structure / Unknown 05/23/2024 11:16 AM EST 05/23/2024 11:32 AM EST Comment:[facility] asities us Mike Low MD LAB BODY FLUIDS AND STOO LS ORDERABLES Final Result [facility] CLINICAL PATHOLOGY LABORATORY [address] [place] [address], [place] * Glucose, Body Fluid (05/23/2024 11:16 AM EST) Only the most recent of5 resultswithin the time period is included. Glucose, Fluid 86 mg/dL 05/23/2024 1:09 PM EST [facility] CLINICAL PATHOLOGY LABORATORY Comment: No reference range available. This test was developed and its performance characteristics determined by [facility] Clinical Labs. [facility] has not approved or cleared this test. [...] LS ORDERABLES Final Result Performing Organization Address [facility] Co de Phone Number [facility] PATHOLOGY LABORATORY [address] [place] [address], [place] * (ABNORMAL) Smear Review (05/15/2024 3:29 PM EST) Only the most recent of5 resultswithin the time period is included. [facility] Platelet Estimate Decreased (A) Adequate 05/15/2024 4:21 PM EST [facility] CLINICAL PATHOLOGY LABORATORY RBC Morphology Normal Normal, No clinically significant RBC morphology present (ICSH guidelines, 2015). 05/15/2024 4:21 PM EST [facility] CLINICAL PATHOLOGY LABORATORY Blood Structure of peripheral vein / Unknown Venipuncture / Unknown 05/15/2024 3:29 PM EST 05/15/2024 3:47 PM EST us Mike Low MD LAB BLOOD ORDERABLES Fin al Result [facility] CLINICAL PATHOLOGY LABORATORY [address] [place] [address], [place] * (ABNORMAL) CBC Auto Differential (05/15/2024 3:29 PM EST) Only the most recent of21 resultswithin the time period is included. [facility] WBC 7.0 3.8 - 10.8 10*3/uL 05/15/2024 4:21 PM EST [facility] LABOR[facility] RBC 3.76(L) 4.20 - 5.80 10*6/uL 05/15/2024 4:21 PM EST [facility] Hemoglobin 11.9(L) 13.2 - 17.1 g/dL 05/15/2024 4:21 PM EST [facility] Hematocrit 35.2(L) 38.5 - [...] % 0.6 % 05/15/2024 4:21 PM EST [facility] Neutrophil # 4.74 1.50 - 7.80 10*3/uL 05/15/2024 4:21 PM EST [facility] Immature Grans # <0.03 <=0.03 10*3/uL 05/15/2024 4:21 PM EST [facility] Lymphocyte # 1.20 0.85 - 3.90 10*3/uL 05/15/2024 4:21 PM EST [facility] Monocyte # 0.90 0.20 - 0.95 10*3/uL 05/15/2024 4:21 PM EST [facility] Eosinophil # 0.10 0.02 - 0.50 10*3/uL 05/15/2024 4:21 PM EST [facility] CLINICAL PATHOLOGY LABORATORY Basophil # <0.03 0.00 - 0.20 10*3/uL 05/15/2024 4:[address] [facility]ENTERLodo SoftwareRIAL [facility] CLINICAL PATHOLOGY LABORATORY nRBC % 0.0 /100 WBCs 05/15/2024 4:21 PM EST [facility] CLINICAL PATHOLOGY LABORATORY nRBC # <0.01 <0.01 10*3/uL 05/15/2024 4:[address] [facility] CENTERFuturistic Data ManagementLA [facility] CLINICAL PATHOLOGY LABORATORY Blood Structure of peripheral vein / Unknown Venipuncture / Unknown 05/15/2024 3:29 PM EST 05/15/2024 3:47 PM EST us Mike Low MD LAB BLOOD ORDERABLES Fin al Result [facility] SYSTEM[facility] [employer] CLINICAL PATHOLOGY LABORATORY [address] [place] [address], * (ABNORMAL) Protime-INR (05/15/2024 3:29 PM EST) Only the most recent of20 resultswithin the time period is included. PT 15.8(H) 9.6 - 12.4 Seconds 05/15/2024 4:12 PM EST [employer] CLINICAL PATHOLOGY LABORATORY INR 1.5 0.9 - 1.1 05/15/2024 4:12 PM EST [employer] [facility] [employer] CLINICAL PATHOLOGY LABORATORY Comment:The optimal therapeu tic INR range for patients treated with Vitamin K antagonists (VKAS, e.g., Warfarin) is 2.0 to 3.5. Discuss the desired range with your doctor/care team. Blood Structure of peripheral vein / Unknown Venipuncture / Unknown 05/15/2024 3:29 PM EST 05/15/2024 3:47 PM EST Mike Low MD LAB BLOOD ORDERABLES Fin al Result [facility] CLINICAL PATHOLOGY LABORATORY [address] [place] [address], * (ABNORMAL) Comprehensive Metabolic Panel (05/15/2024 3:29 PM EST) Only the most recent of4 resultswithin the time period is included. NA 135 135 - 145 mmol/L 05/15/2024 4:20 PM EST [email or web address] CLINICAL PATHOLOGY LABORATORY K 3.6 3.5 - 5.3 mmol/L 05/15/2024 4:20 PM EST [employer] [facility] [employer] CLINICAL PATHOLOGY LABORATORY Cl 101 98 - 107 mmol/L 05/15/2024 4:20 PM EST [email or web address] CLINICAL PATHOLOGY LABORATORY CO2 20(L) 22 - 32 mmol/L 05/15/2024 4:20 PM EST [employer] [facility] [employer] [facility] CLINICAL PATHOLOGY LABORATORY Anion Gap 14 5 - 15 05/15/2024 4:20 PM EST [email or web address] CLINICAL PATHOLOGY LABORATORY Glucose 107(H) 65 - 99 mg/dL 05/15/2024 4:20 PM EST [email or web address] CLINICAL PATHOLOGY LABORATORY Creatinine 0.63 0.60 - 1.30 mg/dL 05/15/2024 4:20 PM EST [email or web address] CLINICAL PATHOLOGY LABORATORY Calcium 8.7 8.6 - 10.5 mg/dL 05/15/2024 4:20 PM EST [facility] LAB[facility] Total Protein 7.1 6.0 - 8.0 g/dL 05/15/2024 4:20 PM EST [facility] LAB[facility] Albumin 3.2(L) 3.5 - 5.2 g/dL 05/15/2024 4:20 PM EST [facility] Bilirubin, Total 2.9(H) 0.2 - 1.2 mg/dL 05/15/2024 4:20 PM EST [facility] Alkaline Phosphatase 153(H) 35 - 129 U/L 05/15/2024 4:20 PM EST [facility] AST 46(H) 10 - 40 U/L 05/15/2024 4:20 PM EST [facility] ALT 27 10 - 40 U/L 05/15/2024 4:20 PM EST [facility] CLINICAL PATHOLOGY LABORATORY BUN 9 7 - 23 mg/dL 05/15/2024 4:20 PM EST [facility] LABOR[facility] eGFR >90 >=60 mL/min/1. 73m2 05/15/2024 4:20 PM EST [facility] [facility] CLINICAL PATHOLOGY LABORATORY Comment:The estimated glomer ular [...] - 4.2 g/dL 05/15/2024 4:20 PM EST [facility] CLINICAL PATHOLOGY LABORATORY A/G Ratio 0.8(L) 1.5 - 3.0 05/15/2024 4:20 PM EST [facility] CLINICAL PATHOLOGY LABORATORY Blood Structure of peripheral vein / Unknown Venipuncture / Unknown 05/15/2024 3:29 PM EST 05/15/2024 3:47 PM EST us Mike Low MD LAB BLOOD ORDERABLES Fin al Result [facility] CLINICAL PATHOLOGY LABORATORY [address] [place] [address], * Anaerobic Culture (05/09/2024 10:33 AM EST) Only the most recent of6 resultswithin the time period is included. Culture No anaerobes isolated. 05/15/2024 9:59 AM EST [facility] Body Fluid Peritoneal cavity structure / Unknown 05/09/2024 10:33 AM EST Comment:ascites Narrative [facility] - 05/15/2024 9:59 AM EST [facility] Received Date:[id number] MICRO NUMBER: [id number] SPECIMEN QUALITY: Adequate SOURCE: BODY FLUID PERITONEAL STATUS: FINAL us Mike Low MD LAB MICROBIOLOGY - GENER AL ORDERABLES Final Result Performing Organization Address City/[facility]/ZIP Co de Phone Number [facility] [address], [place] [address], [place] [phone] [facility] [address], [place] [address], [place] [phone] * Body Fluid Aerobic Culture (05/09/2024 10:33 AM EST) Only the most recent of3 resultswithin the time period is included. Culture No growth 05/15/2024 7:58 AM EST [facility] Body Fluid Peritoneal cavity structure / Unknown 05/09/2024 10:33 AM EST Comment:ascites Narrative [facility] 05/15/2024 7:58 AM EST [facility] Received Date: MICRO NUMBER: [id number] SPECIMEN QUALITY: Adequate SOURCE: BODY FLUID PERITONEAL STATUS: FINAL Mike Low MD LAB MICROBIOLOGY - GENER AL ORDERABLES Final Result Performing Organization Address City/[facility]/ZIP Co de Phone Number [facility] [address], [place] [address], [place] [phone] [facility] [address], [place] [address], [place] [phone] * Magnesium (05/03/2024 3:18 AM EST) Only the most recent of16 resultswithin the time period is included. Pathologist [facility] MG 1.8 1.6 - 2.4 mg/dL 05/03/2024 4:12 AM EST [email or web address] CLINICAL PATHOLOGY LABORATORY Blood Structure of peripheral vein / Unknown Venipuncture / Unknown 05/03/2024 3:18 AM EST 05/03/2024 3:41 AM EST Rachel Murray MD LAB BLOOD ORDERABLES Final Resul t Performing Organization Address City/[facility] Co de Phone Number [facility] CLINICAL PATHOLOGY LABORATORY [address] [place] [address], * (ABNORMAL) Hepatic function panel (05/03/2024 3:18 AM EST) Only the most recent of17 resultswithin the time period is included. Total Protein 6.1 6.0 - 8.0 g/dL 05/03/2024 4:12 AM EST [facility] CLINICAL PATHOLOGY LABORATORY Albumin 3.0(L) 3.5 - 5.2 g/dL 05/03/2024 4:12 AM EST [facility] [facility] CLINICAL PATHOLOGY LABORATORY Globulin, Total 3.1 2.1 - 4.2 g/dL 05/03/2024 4:12 AM EST [facility] CLINICAL PATHOLOGY LABORATORY Bilirubin, Total 2.4(H) 0.2 - 1.2 mg/dL 05/03/2024 4:12 AM EST [email or web address] CLINICAL PATHOLOGY LABORATORY Bilirubin, Direct 1.4(H) <=0.4 mg/dL 05/03/2024 4:12 AM EST [facility] CLINICAL PATHOLOGY LABORATORY Alkaline Phosphatase 181(H) 35 - 129 U/L 05/03/2024 4:12 AM EST [email or web address] CLINICAL PATHOLOGY LABORATORY AST 69(H) 10 - 40 U/L 05/03/2024 4:12 AM EST [facility] CLINICAL PATHOLOGY LABORATORY ALT 47(H) 10 - 40 U/L 05/03/2024 4:12 AM EST [email or web address] CLINICAL PATHOLOGY LABORATORY Bilirubin, Indirect 1.00(H) <=0.70 mg/dL 05/03/2024 4:12 AM EST [email or web address] CLINICAL PATHOLOGY LABORATORY A/G Ratio 1.0(L) 1.5 - 3.0 05/03/2024 4:12 AM EST [email or web address] CLINICAL PATHOLOGY LABORATORY Blood Structure of peripheral vein / Unknown Venipuncture / Unknown 05/03/2024 3:18 AM EST 05/03/2024 3:41 AM EST us Rachel Murray MD LAB BLOOD ORDERABLES Final Resul t [facility] [employer] CLINICAL PATHOLOGY LABORATORY [address] [place] [address], * (ABNORMAL) Basic Metabolic Panel (05/03/2024 3:18 AM EST) Only the most recent of26 resultswithin the time period is included. NA 135 135 - 145 mmol/L 05/03/2024 4:12 AM EST [email or web address] CLINICAL PATHOLOGY LABORATORY K 3.7 3.5 - 5.3 mmol/L 05/03/2024 4:12 AM EST [email or web address] CLINICAL PATHOLOGY LABORATORY Cl 105 98 - 107 mmol/L 05/03/2024 4:12 AM EST [email or web address] CLINICAL PATHOLOGY LABORATORY CO2 21(L) 22 - 32 mmol/L 05/03/2024 4:12 AM EST [employer] CLINICAL PATHOLOGY LABORATORY BUN 14 7 - 23 mg/dL 05/03/2024 4:12 AM EST [employer] - [employer] [facility] CLINICAL PATHOLOGY LABORATORY Creatinine 0.60 0.60 - 1.30 mg/dL 05/03/2024 4:12 AM EST [employer] [facility] [employer] [facility] CLINICAL PATHOLOGY LABORATORY Glucose 113(H) 65 - 99 mg/dL 05/03/2024 4:12 AM EST [email or web address] CLINICAL PATHOLOGY LABORATORY Calcium 8.2(L) 8.6 - 10.5 mg/dL 05/03/2024 4:12 AM EST [email or web address] CLINICAL PATHOLOGY LABORATORY Anion Gap 9 5 - 15 05/03/2024 4:12 AM EST [email or web address] CLINICAL PATHOLOGY LABORATORY eGFR >90 >=60 mL/min/1. 73m2 05/03/2024 4:12 AM EST [email or web address] CLINICAL PATHOLOGY LABORATORY Comment:The estimated glomer ular [...] MD LAB BLOOD ORDERABLES Final Resul t [email or web address] CLINICAL PATHOLOGY LABORATORY [address] [place] [address], [place] * [place] C-Arm ERCP in OR NONREPORTABLE (05/02/2024 4:31 PM EST) Only the most recent of2 resultswithin the time period is included. Narrative IMAGING - 05/02/2024 4:35 PM EST This procedure does not contain a result. Please see the surgeon's note for official report. Rachel Murray MD IMG FLUOROSCOPY PROCEDURES Final Result Performing Organization Address City/[facility]/ZIP Co de Phone Number IMAGING * Type [...] - Final [facility] [address] [place] [address], [place] [phone] * (ABNORMAL) Manual Differential (05/02/2024 4:11 AM [...] Manual 0 % 05/02/2024 5:24 AM EST [employer] CLINICAL PATHOLOGY LABORATORY Basophil %, Manual 0 % 05/02/2024 5:24 AM EST [facility]OLOG[facility] LABORAT[facility] Total Neutrophil #, Manual 3.57 1.50 - 7.80 10*3/uL 05/02/2024 5:24 AM EST [facility] LABORAT[facility] Bands #,Manual 0.04 10*3/uL 05/02/2024 5:24 AM EST [facility] LABORAT[facility] Total Lymph #, Manual 0.37(L) 0.85 - 3.90 10*3/uL 05/02/2024 5:24 AM EST [facility] CLINICAL PATHOLOGY LABORATORY Monocyte #, Manual 0.16(L) 0.20 - 0.95 10*3/uL 05/02/2024 5:24 AM EST [employer] CLINICAL PATHOLOGY LABORATORY Eosinophil #, Manual 0.00(L) 0.02 - 0.50 10*3/uL 05/02/2024 5:24 AM EST [facility] CLINICAL PATHOLOGY LABORATORY Basophil #, Manual 0.00 0.00 - 0.20 10*3/uL 05/02/2024 5:24 AM EST [employer] CLINICAL PATHOLOGY LABORATORY Platelet Estimate Decrease d(A) Adequate 05/02/2024 5:24 AM EST [facility] CLINICAL PATHOLOGY LABORATORY RBC Morphology Present( A) Normal, No clinically significant RBC morphology present (ICSH guidelines, 2015). 05/02/2024 5:24 AM EST [email or web address] CLINICAL PATHOLOGY LABORATORY Weed Cells 2+(A) Not Present 05/02/2024 5:24 AM EST [employer] CLINICAL PATHOLOGY LABORATORY Total Cells Counted 115 05/02/2024 5:24 AM EST [employer] [facility] [employer] CLINICAL PATHOLOGY LABORATORY Blood Structure of peripheral vein / Unknown Venipuncture / Unknown 05/02/2024 4:11 AM EST 05/02/2024 4:30 AM EST Rachel Murray MD LAB BLOOD ORDERABLES Final Resul t [facility] [address] [place] [address], [place] * ENDOSCOPIC RETROGRADE CHOLANGIOPANCREATOGRAPHY (05/02/2024) Narrative Procedure Note Rachel Murray MD - 05/02/2024 1:19 PM EST [facility] Gastroenterology Patient Name: Nate Correa Procedure Date: 05/02/2024 1:19 PM Date of : 1960 Admit Type: Inpatient Age: 63 Room: [place] [address] Gender: Male Note Status: Finalized Attending MD: [...] stent and PCT were visible on the information security director film. The esophagus was successfully intubated under [...] - 10.8 10*3/uL 04/30/2024 3:56 PM EST [facility] LAB[facility] RBC 3.67(L) 4.20 - 5.80 10*6/uL 04/30/2024 3:56 PM EST [facility] Hemoglobin 11.6(L) 13.2 - 17.1 g/dL 04/30/2024 3:56 PM EST [facility] Hematocrit 34.3(L) 38.5 - 50.0 % 04/30/2024 3:56 PM EST [facility] MCV 93.5 80.0 - 100.0 fL 04/30/2024 3:56 PM EST [facility] MCH 31.6 27.0 - 33.0 pg 04/30/2024 3:56 PM EST [facility] LABOR[facility] MCHC 33.8 32.0 - 36.0 g/dL 04/30/2024 3:[address] [facility]ENTERLodo SoftwareRI[facility] CLINICAL PATHOLOGY LABORATORY RDW 16.5(H) 11.0 - 15.0 % 04/30/2024 3:[address] [address] [facility]ENTERL[facility] SoftwareRI[facility] CLINICAL PATHOLOGY LABORATORY Platelets 98(L) 140 - 400 10*3/uL 04/30/2024 3:56 PM EST [facility] LAB[facility] MPV 10.6 7.5 - 12.5 fL 04/30/2024 3:[address] [facility] CENTERLodo SoftwareRILA [facility] CLINICAL PATHOLOGY LABORATORY Comment:A smear review has b een added. Clinician review and interpretation will be needed once the report is final. Blood Structure of peripheral vein / Unknown Venipuncture / Unknown 04/30/2024 2:56 PM EST 04/30/2024 3:07 PM EST us Delmis Joseph MD LAB BLOOD ORDERABLES Final Result [facility] [employer] CLINICAL PATHOLOGY LABORATORY [address] [place] [address], [place] * [place] ABDOM PARACENTESIS DX/THER W IMAGING GUIDANCE (04/29/2024 [...] ??Patient's understanding of procedure matches consent: ??Yes [place] Protocol: ??Procedure consent matches procedure scheduled: ??Yes [...] Hold for add-ons. 04/29/2024 6:05 PM EST [email or web address] CLINICAL PATHOLOGY LABORATORY Comment:Auto resulted. Blood Structure of peripheral vein / Unknown 04/29/2024 10:15 AM EST 04/29/2024 1:05 PM EST us Delmis Joseph MD LAB BLOOD ORDERABLES Final Result [facility] CLINICAL PATHOLOGY LABORATORY [address] [place] [address], [place] * ENDOSCOPIC RETROGRADE CHOLANGIOPANCREATOGRAPHY (04/29/2024) Narrative Procedure Note Rachel Murray MD - 04/29/2024 3:18 PM EST [facility] Gastroenterology Patient Name: Nate Correa Procedure Date: 04/29/2024 3:18 PM Date of : 1960 Admit Type: Inpatient Age: 63 Room: [facility] OR Gender: Male Note Status: Finalized Attending MD: [...] by the physician, the nurse and the uniformer in the pre-procedure area in theendoscopy suite. [...] was 589 seconds (604.5 mGy). Findings: A information security director film of the abdomen was obtained. Percutaneous [...] obtain the completed interpretation. ? Workstation ID: [id number] Narrative 04/28/2024 8:28 AM EST EXAMINATION: Limited [...] PERITONEUM: Moderate perihepatic ascites. Resulting Agency Comment [id number] Procedure Note Kevin Rausch MD - 04/28/2024 [...] possible to obtain thecompleted interpretation. Workstation ID: [id number] us Jeffrey Castro MD IMG US PROCEDURES Final Result * Vancomycin, Trough (04/26/2024 7:55 AM EST) Vancomycin Trough 14.2 10.0 - 20.0 ug/mL 04/26/2024 8:33 AM EST [email or web address] LABORATORY Comment: Before interpreting a [...] MD LAB BLOOD ORDERABLES Final Re sult [email or web address] CLINICAL PATHOLOGY LABORATORY [address] [place] [address], * Lactic Acid, Plasma (04/26/2024 5:01 AM EST) Only the most recent of6 resultswithin the time period is included. Lactic Acid 1.6 0.5 - 1.9 mmol/L 04/26/2024 6:06 AM EST [email or web address] CLIN[facility] PATHOLOGY LABORATORY Comment: Sepsis Screening: Initial Lactate Level >2.0 mmol/L - Repeat Lactate Level within 3 hours. Initial Lactate Level >4.0 mmol/L - Repeat Lactate Level within 3 hours, Initiate Septic Shock Protocol. Blood Structure of peripheral vein / Unknown Venipuncture / Unknown 04/26/2024 5:01 AM EST 04/26/2024 5:31 AM EST us Natalio Lara MD LAB BLOOD ORDERABLES Final Re sult [facility] CLINICAL PATHOLOGY LABORATORY [address] [place] [id number], * CT 3 Phase Liver Mass With [...] obtain the completed interpretation. ? Workstation ID: [id number] Narrative 04/25/2024 4:52 PM EST EXAMINATION: CT [...] disease. No acute fracture. Resulting Agency Comment [id number] Procedure Note Cheryl Pitts MD - 04/25/2024 [...] possible to obtain thecompleted interpretation. Workstation ID: [id number] us Natalio Lara MD IMG CT PROCEDURES Final Resul t * MRSA/S aureus PCR, Nasal (04/25/2024 6:13 AM EST) Only the most recent of2 resultswithin the time period is included. MRSA PCR, Nasal NOT DETECTED NOT DETECTED 04/25/2024 3:29 PM EST [employer] S. aureus PCR, Nasal NOT DETECTED NOT DETECTED 04/25/2024 3:29 PM EST [facility] Swab Nasal structure / Unknown Non-Blood Collection / Unknown 04/25/2024 6:13 AM EST 04/25/2024 6:26 AM EST [facility] [place] - 04/25/2024 3:29 PM EST [facility] Received Date: us Natalio Lara MD LAB BODY FLUIDS AND STOOLS OR DERABLES Final Result [facility] [address], [place] [address], [place] [phone] [facility] [address], [place] [address], [place] [phone] * Harvey Top, Urine (04/25/2024 6:10 AM EST) Pathologist [facility] Extra Tube Hold for add-ons. 04/25/2024 11:05 AM EST [email or web address] CL[facility] PATHOLOG[facility] LABORATORY Comment:Auto resulted. Urine Urine specimen collection, clean catch / Unknown Non-Blood Collection / Unknown 04/25/2024 6:10 AM EST 04/25/2024 6:26 AM EST us Natalio Lara MD LAB URINE ORDERABLES Final Re sult [email or web address] CLINICAL PATHOLOGY LABORATORY [address] [place] [address], [place] * (ABNORMAL) Urinalysis W/Reflex to Microscopic & Culture (04/25/2024 6:10 AM EST) Color, Urine Deann(A) Colorless, Light Yellow, Yellow, Dark Yellow 04/25/2024 6:39 AM EST [facility] [employer] CL[facility]ICAL PATHOLOG[facility] LABORATORY Clarity, Urine Clear Clear 04/25/2024 6:39 AM EST [employer] [employer] CLINICAL PATHOLOGY LABORATORY Specific [place], Urine 1.029 1.005 - 1.030 04/25/2024 6:39 AM EST [facility] [employer] [facility] LAB[facility]AT[facility] pH, Urine 5.0 4.6 - 8.0 04/25/2024 6:39 AM EST [facility] [employer] CL[facility] LABORATORY Protein, Urine 1+(A) Negative 04/25/2024 6:39 AM EST [employer] [employer] [facility] LAB[facility] Glucose, Urine Negative Negative 04/25/2024 6:39 AM EST [employer] [employer] [facility] Ketones, Urine Negative Negative 04/25/2024 6:39 AM EST [facility] [place] [employer] [facility] Bilirubin, Urine Negative Negative 04/25/2024 6:39 AM EST [employer] [employer] [facility] Blood, Urine 1+(A) Negative 04/25/2024 6:39 AM EST [employer] [employer] [facility] Nitrite, Urine Negative Negative 04/25/2024 6:39 AM EST [employer] [employer] [facility] Urobilinogen, Urine Normal Normal 04/25/2024 6:39 AM EST [email or web address] LAB[facility]AT[facility] Leukocyte Esterase, Urine Negative Negative 04/25/2024 6:39 AM EST [email or web address] [facility] LAB[facility] WBC, Urine 2 0 - 2 /HPF 04/25/2024 6:39 AM EST [email or web address] [facility] LAB[facility] RBC, Urine 1 0 - 2 /HPF 04/25/2024 6:39 AM EST [email or web address] [facility] LAB[facility] Hyaline Casts, Urine 1 0 - 2 /LPF 04/25/2024 6:39 AM EST [email or web address] [facility] LAB[facility] Squamous Epithelial Cells, Urine <1 /HPF 04/25/2024 6:39 AM EST [email or web address] [facility] LAB[facility] Bacteria, Urine None None /HPF /HPF 04/25/2024 6:39 AM EST [email or web address] LAB[facility] Urine Urine specimen collection, clean catch / Unknown Non-Blood Collection / Unknown 04/25/2024 6:10 AM EST 04/25/2024 6:26 AM EST us Natalio Lara MD LAB URINE ORDERABLES Final Re sult [facility] [address] [place] [address], * X-Ray Chest 1 View (04/24/2024 11:12 [...] obtain the completed interpretation. ? Workstation ID: [id number] Narrative 04/26/2024 3:32 PM EST COMPARISON: ??04/11/2024 FINDINGS AND Resulting Agency Comment [id number] Procedure Note Jeyson Silva MD - 04/26/2024 [...] possible to obtain thecompleted interpretation. Workstation ID: [id number] us Natalio Lara MD IMG XR PROCEDURES Final Resul t * Blood Culture (04/24/2024 6:13 PM EST) Only the most recent of5 resultswithin the time period is included. Pathologist [facility] Culture No growth after 5 days 04/29/2024 10:25 PM EST [employer] Blood Structure of peripheral vein / Unknown Venipuncture / Unknown 04/24/2024 6:13 PM EST 04/24/2024 6:35 PM EST Narrative [facility] - 04/29/2024 10:25 PM EST [employer] Received Date: MICRO NUMBER: [id number] SPECIMEN QUALITY: Suboptimal SOURCE: BLOOD VENOUS, PERIPHERAL STATUS: FINAL COMMENT: Aerobic and anaerobic bottle received. Inspection of blood culture bottles indicates that an inadequate volume of blood may have been collected for the detection of sepsis. Dana Samuels MD LAB MICROBIOLOGY - GENERAL ORDERABLES Final Result [facility] [address], [place] [address], [facility] [address], [place] [address], * AFP tumor marker (04/24/2024 1:02 PM EST) Only the most recent of3 resultswithin the time period is included. Pathologist [facility] Alpha Fetoprotein, Tumor Marker 2.4 <6.1 ng/mL 04/25/2024 11:03 AM EST [employer] Comment: This test was performed using the Mary Lou Erik chemiluminescent method. Values obtained from different assay methods cannot be used interchangeably. AFP levels, regardless of value, should not be interpreted as absolute evidence of the presence or absence of disease. Blood Structure of peripheral vein / Unknown Venipuncture / Unknown 04/24/2024 1:02 PM EST 04/24/2024 1:17 PM EST Narrative [facility] - 04/25/2024 11:03 AM EST [facility] Received Date: Mike Low MD LAB BLOOD ORDERABLES Fin al Result [facility] [address] [facility] [address] Floor, [place] [address], [place] [phone] [facility] [address] [facility] 3rd Floor, [place] [address], [place] [phone] * (ABNORMAL) POCT Glucose, interfaced (04/18/2024 8:08 PM EST) Only the most recent of26 resultswithin the time period is included. [facility] Glucose, POCT 168(H) 70 - 99 mg/dL 04/18/2024 8:09 PM EST [facility] Comment: The talent manager has not determined the efficacy of this test in Critically ill patients. ??[facility] defines Critically ill patients for the [...] 8:08 PM EST 04/18/2024 8:09 PM EST us Delmis Joseph MD LAB POCT ORDERABLES - DEVIC E Final Result [facility] [address] [place] [address], [place] * ECHOCARDIOGRAM DOBUTAMINE STRESS TEST W/ [...] obtain the completed interpretation. ? Workstation ID: [id number] Narrative 04/17/2024 5:14 PM EST Indication: ??liver [...] Moderate degenerative vertebral disease. Resulting Agency Comment [id number] Procedure Note Seth Recinos MD PhD - [...] possible to obtain thecompleted interpretation. Workstation ID: [id number] us Delmis Joseph MD IMG CT PROCEDURES Final Res ult * (ABNORMAL) Creatine Kinase (04/17/2024 4:12 PM EST) CK 23(L) 49 - 348 U/L 04/17/2024 5:01 PM EST [facility] [employer] [facility] Blood Structure of peripheral vein / Unknown Venipuncture / Unknown 04/17/2024 4:12 PM EST 04/17/2024 4:30 PM EST Delmis Joseph MD LAB BLOOD ORDERABLES Final Result Performing Organization Address City/[facility]/ZIP Co de Phone Number [facility] [employer] CLINICAL PATHOLOGY LABORATORY [address] [place] [address], [place] * Aerobic Culture w/Gram Stain (04/17/2024 3:53 PM EST) Only the most recent of3 resultswithin the time period is included. Pathologist [facility] Culture No growth 04/23/2024 8:25 AM EST [facility] Gram Stain No organisms or white blood cells seen 04/23/2024 8:25 AM EST [facility] [place] Ascites Fluid Specimen from peritoneum / Unknown Non-Blood Collection / Unknown 04/17/2024 3:53 PM EST 04/17/2024 4:26 PM EST Narrative [facility] [place] - 04/23/2024 8:25 AM EST [facility] Received Date: MICRO NUMBER: [id number] SPECIMEN QUALITY: Adequate SOURCE: ASCITES FLUID PERITONEUM STATUS: FINAL us Delmis Joseph MD LAB MICROBIOLOGY - GENERAL ORDERABLES Final Result [facility] [address] [facility] [address] Floor, [place] [address], [place] [phone] [facility] [address] [facility] 3rd Floor, [place] [address], [place] [phone] * Albumin, Body Fluid (04/17/2024 3:53 PM EST) Only the most recent of2 resultswithin the time period is included. Albumin, Fluid 1.8 g/dL 04/17/2024 4:57 PM EST [facility] [employer] CLINICAL PATHOLOGY LABORATORY Comment: No reference range available. This test was developed and its performance characteristics determined by [facility] Clinical Labs. [facility] has not approved or cleared this test. FDA clearance or approval is not currently required for clinical use. The results are not intended to be used as the sole means for clinical diagnosis or patient management decisions. Ascites Fluid Specimen from peritoneum / Unknown Non-Blood Collection / Unknown 04/17/2024 3:53 PM EST 04/17/2024 4:26 PM EST Delmis Joseph MD LAB BODY FLUIDS AND STOOLS ORDERABLES Final Result [facility] CLINICAL PATHOLOGY LABORATORY [address] [place] [address], [place] * [place] ABDOM PARACENTESIS DX/THER W IMAGING GUIDANCE (04/17/2024 [...] ??Patient's understanding of procedure matches consent: ??Yes [place] Protocol: ??Procedure consent matches procedure scheduled: ??Yes [...] Status 17.90 AU/mL 04/17/2024 10:39 PM EST [employer] Comment: AU/mL ?Interpretation ----- ? <13.50 ? Not consistent with immunity 13.50-16.49 ?Equivocal >16.49 ? Consistent with immunity The presence of measles IgG suggests immunization or past or current infection with measles virus. For additional information, please refer to http://education.CatchTheEye/faq/GFT096 (This link is being provided for informational/ educational purposes only.) Mumps Antibody (IgG), Immune Status <9.00(L) AU/mL 04/17/2024 10:39 PM EST [employer] Comment: AU/mL ? Interpretation ------- ? <9.00 ? Not consistent with immunity 9.00-10.99 ?Equivocal >10.99 ?Consistent with immunity The presence of mumps IgG antibody suggests immunization or past or current infection with mumps virus. Rubella Antibody (IgG), Immune Status 30.80 Index 04/17/2024 10:39 PM EST [employer] Comment: ?Index ?Interpretation ?----- ?<0.90 ?Not consistent with immunity ?0.90-0.99 ?Equivocal ?> or = 1.00 ?Consistent with immunity The presence of rubella IgG antibody suggests immunization or past or current infection with rubella virus. Blood Structure of peripheral vein / Unknown Venipuncture / Unknown 04/17/2024 9:32 AM EST 04/17/2024 9:44 AM EST Narrative [facility] - 04/17/2024 10:39 PM EST [facility] Received Date: Delmis Joseph MD LAB BLOOD ORDERABLES Final Result [facility] [place] [address] [facility] 3rd Floor, [place] [address], [place] [phone] [facility] [address] [facility] 3rd Floor, [place] [address], [place] [phone] * Immunofixation, Serum (04/17/2024 9:32 AM EST) [facility] Immunofixation, Serum, Interpretation See Comments 04/22/2024 3:13 PM EST [facility] Comment: No monoclonal proteins detected. Blood Structure of peripheral vein / Unknown Venipuncture / Unknown 04/17/2024 9:32 AM EST 04/17/2024 9:44 AM EST Narrative [facility] - 04/22/2024 3:13 PM EST [facility] Received Date: Delmis Joseph MD LAB BLOOD ORDERABLES Final Result [facility] [place] [address] [facility] 3[address] Floor, [place] [address], [facility] [address] [facility] 3[address] Floor, [place] [address], * (ABNORMAL) Herpes Simplex Virus 1&2 Antibody, IgG (04/17/2024 9:32 AM EST) HSV 1 IgG Type Specific Ab 26.50(H) index 04/17/2024 7:37 PM EST [facility] HSV 2 IgG Type Specific Ab 2.16(H) index 04/17/2024 7:37 PM EST [employer] Comment: ?Index ?Interpretation ?----- ?<0.90 ?Negative ?0.90-1.09 ?Equivocal ?>1.09 ?Positive Low HSV-2 IgG positive results (index values between 1.10-3.00) may represent false positive results. CDC 202 guidelines recommend confirmatory testing of samples with low-positive HSV-2 IgG results. If clinically indicated, consider adding on HSV-2 IgG Inhibition, by contacting [employer]. For additional information, please refer to: https://www.CrowdProcess/healthcare- professionals/errpinpu-iusrkytji-oijbnk/faq/faq73 (This link is being provided for informational/ [...] screening. For additional information, please refer to http://education.CatchTheEye/faq/ORF794 (This link is being provided for informational/ educational purposes only.) ?? Blood Structure of peripheral vein / Unknown Venipuncture / Unknown 04/17/2024 9:32 AM EST 04/17/2024 9:45 AM EST [facility] - 04/17/2024 7:37 PM EST [facility] Received Date: Delmis Joseph MD LAB BLOOD ORDERABLES Final Result [facility] [address] [facility] [address] Floor, [place] [address], [facility] [address], [place] [address], * (ABNORMAL) Protein Electrophoresis w/Reflex to Immunofixation, Serum (04/17/2024 9:32 AM EST) [facility] Protein, Total 5.6(L) 6.1 - 8.1 g/dL 04/21/2024 12:33 PM EST [facility] Albumin 3.3(L) 3.8 - 4.8 g/dL 04/21/2024 12:33 PM EST [facility] Alpha 1 Globulin 0.3 0.2 - 0.3 g/dL 04/21/2024 12:33 PM EST [facility] Alpha 2 Globulin 0.4(L) 0.5 - 0.9 g/dL 04/21/2024 12:33 PM EST [facility] Beta 1 Globulin 0.3(L) 0.4 - 0.6 g/dL 04/21/2024 12:33 PM EST [facility] Beta 2 Globulin 0.5 0.2 - 0.5 g/dL 04/21/2024 12:33 PM EST [facility] Gamma Globulin 0.9 0.8 - 1.7 g/dL 04/21/2024 12:33 PM EST [facility] Abnormal Protein Band 1 See Comments NONE DETECTED g/dL 04/21/2024 12:33 PM EST [facility] Comment: See below Interpretation See Comments 04/21/2024 12:33 PM EST [facility] Comment: Possible monoclonal protein (M-protein) present. Suggest serum immunofixation. Blood Structure of peripheral vein / Unknown Venipuncture / Unknown 04/17/2024 9:32 AM EST 04/17/2024 9:44 AM EST [facility] - 04/21/2024 12:33 PM EST [facility] Received Date: Delmis Joseph MD LAB BLOOD ORDERABLES Final Result [facility] [address] [facility] [address], [place] [address], [place] [phone] [facility] [address] [facility] [address] Floor, [place] [address], [place] [phone] * RPR (Diagnosis) w/Reflex to Titer & TPPA Confirm (04/17/2024 9:32 AM EST) RPR W/Refl Titer NON-REACT ALESIA NON-REACT ALESIA 04/22/2024 3:16 PM EST [facility] Blood Structure of peripheral vein / Unknown Venipuncture / Unknown 04/17/2024 9:32 AM EST 04/17/2024 9:44 AM EST Narrative [facility] - 04/22/2024 3:16 PM EST [facility] Received Date:[id number] Delmis Joseph MD LAB BLOOD ORDERABLES Final Result Performing Organization Address City/[facility]/ZIP Co de Phone Number [facility] [address] [facility] [address], [place] [address], [place] [phone] [facility] [address] [facility] 3rd Floor, [place] [address], [place] [phone] * PSA, Total Reflex to Free (04/17/2024 9:32 AM EST) Pathologist [facility] PSA 0.30 <=4.00 ng/mL 04/17/2024 10:26 AM EST [email or web address] CLINICAL PATHOLOGY LABORATORY Comment: The total PSA value from this assay system is standardized against the WHO standard. ??The test result will be slightly lower (< 3 %) when compared to the equimolar-standardized total PSA(Mary Lou Hampton). ??Comparison of Serial PSA results should be [...] Joseph MD LAB BLOOD ORDERABLES Final Result [facility] CLINICAL PATHOLOGY LABORATORY [address] [place] [address], [place] * QuantiFERON-TB Gold Plus, 1 Tube (04/17/2024 9:32 AM EST) QuantiFERON-TB Gold Plus NEGATIVE NEGATIVE 04/20/2024 6:44 PM EST [facility] Comment: Negative test result. M. tuberculosis complex infection unlikely. NIL 0.03 IU/mL 04/20/2024 6:44 PM EST [facility] Mitogen-NIL 1.18 IU/mL 04/20/2024 6:44 PM EST [facility] TB1-NIL 0.00 IU/mL 04/20/2024 6:44 PM EST [facility] TB2-NIL 0.01 IU/mL 04/20/2024 6:44 PM EST [facility] Comment: The Nil tube value reflects the [...] T-lymphocytes. For additional information, please refer to https://education.[employer] TV.CenturyLink/faq/TSU465 (This link is being provided for informational/ educational purposes only.) Blood Structure of peripheral vein / Unknown Venipuncture / Unknown 04/17/2024 9:32 AM EST 04/17/2024 9:40 AM EST Narrative [facility] - 04/20/2024 6:44 PM EST [facility] Received Date: us Delmis Joseph MD LAB BLOOD ORDERABLES Final Result [facility] [address] [facility] [address] Floor, [place] [address], [place] [phone] [facility] [address] [facility] 3rd Floor, [place] [address], [place] [phone] * Smooth Muscle Antibody Screen w/Reflex to Titer (04/17/2024 9:32 AM EST) Pathologist [facility] Smooth Muscle AB Screen NEGATIVE NEGATIVE 04/18/2024 12:14 PM EST [facility] Blood Structure of peripheral vein / Unknown Venipuncture / Unknown 04/17/2024 9:32 AM EST 04/17/2024 9:44 AM EST [facility] [place] - 04/18/2024 12:14 PM EST [facility] Received Date: us Delmis Joseph MD LAB BLOOD ORDERABLES Final Result Performing Organization Address City/[facility]/ZIP Co de Phone Number [facility] [address], [place] [address], [place] [phone] [facility] [address], [place] [address], [place] [phone] * Ipttf-3-Neporwhdsoh (04/17/2024 9:32 AM EST) Pathologist [facility] Uuxwn-1-Xfxcoz ypsin Qn 166 83 - 199 mg/dL 04/17/2024 10:29 PM EST [facility] Blood Structure of peripheral vein / Unknown Venipuncture / Unknown 04/17/2024 9:32 AM EST 04/17/2024 9:44 AM EST [facility] [place] - 04/17/2024 10:29 PM EST [facility] Received Date:[id number] us Delmis Joseph MD LAB BLOOD ORDERABLES Final Result [facility] [address], [place] [address], [place] [phone] [facility] [address], [place] [address], * Hepatitis C Antibody w/Reflex to HCV RNA, Quantitative PCR (04/17/2024 9:32 AM EST) [facility] Hepatitis C Antibody NON-REACT ALESIA NON-REACT ALESIA 04/17/2024 7:31 PM EST [facility] Comment: HCV antibody was non-reactive. There is no laboratory evidence of HCV infection. In most cases, no further action is required. However, if recent HCV exposure is suspected, a test for HCV RNA (test code 20414) is suggested. For additional information please refer to http://OSIsoft.CrowdProcess/faq/AAR36y0 (This link is being provided for informational/ educational purposes only.) Blood Structure of peripheral vein / Unknown Venipuncture / Unknown 04/17/2024 9:32 AM EST 04/17/2024 9:44 AM EST Narrative [employer] [place] - 04/17/2024 7:31 PM EST [facility] Received Date: us Delmis Joseph MD LAB BLOOD ORDERABLES Final Result Performing Organization Address City/[facility]/ZIP Co de Phone Number [facility] [place] [address], [place] [address], [place] [phone] [facility] [address], [place] [address], [place] [phone] * Hepatitis A Antibody, Total (04/17/2024 9:32 AM EST) Hepatitis A Ab, Total NON-REACT ALESIA NON-REACT ALESIA 04/17/2024 9:50 PM EST [facility] Comment: For additional information, please refer to http://OSIsoft.CrowdProcess/faq/UMM515 (This link is being provided for informational/ educational purposes only.) Blood Structure of peripheral vein / Unknown Venipuncture / Unknown 04/17/2024 9:32 AM EST 04/17/2024 9:44 AM EST Narrative [employer] [place] - 04/17/2024 9:50 PM EST [facility] Received Date:[id number] us Delmis Joseph MD LAB BLOOD ORDERABLES Final Result [facility] [address], [place] [address], [facility] [address], [address] [place] [address], * MERT Screen, IFA, w/Reflex to Titer & Pattern (04/17/2024 9:32 AM EST) MERT Screen, IFA NEGATIVE NEGATIVE 2:39 PM EST [facility] Comment: MERT IFA is a first line [...] AC-0: Negative International Consensus on MERT Patterns (https://doi.org/10.1515/zilq-2654-2094) For additional information, please refer to http://education.CatchTheEye/faq/WHC268 (This link is being provided for informational/ educational purposes only.) ?? Blood Structure of peripheral vein / Unknown Venipuncture / Unknown 04/17/2024 9:32 AM EST 04/17/2024 9:44 AM EST Narrative [facility] - 04/22/2024 2:39 PM EST [facility] Received Date: Delmis Joseph MD LAB BLOOD ORDERABLES Final Result [facility] [address] [facility] [address] [facility], [address] [facility] [address], [facility] [address], [address] [place] [address], * Ceruloplasmin (04/17/2024 9:32 AM EST) Pathologist [facility] Ceruloplasmin 15 14 - 30 mg/dL 04/17/2024 10:29 PM EST [facility] Blood Structure of peripheral vein / Unknown Venipuncture / Unknown 04/17/2024 9:32 AM EST 04/17/2024 9:44 AM EST [facility] 04/17/2024 10:29 PM EST [facility] Received Date: Delmis Joseph MD LAB BLOOD ORDERABLES Final Result Performing Organization Address [facility] de Phone Number [employer] [place] [address] [facility] [address] [facility], [place] [address], [facility] [address], [place] [address], * (ABNORMAL) Brandee-Hutson Virus VCA, IgG (04/17/2024 9:32 AM EST) Pathologist [facility] EBV Viral Capsid Ag Ab (IGG) >750.00(H ) U/mL 04/18/2024 6:17 AM EST [facility] Comment: ? U/mL ? Interpretation ? ---- ? <18.00 ? Negative ? 18.00-21.99 ?Equivocal ? >21.99 ? Positive Blood Structure of peripheral vein / Unknown Venipuncture / Unknown 04/17/2024 9:32 AM EST 04/17/2024 9:44 AM EST [facility]arrative [facility] - 04/18/2024 6:17 AM EST [facility] Received Date: Delmis Joseph MD LAB BLOOD ORDERABLES Final Result Performing Organization Address [facility]/State/ZIP Co de Phone Number [facility] [address] [facility] [address] [facility], [place] [address], [facility] [address], [place] [address], * Hepatitis B Core Antibody, Total (04/17/2024 9:32 AM EST) Hepatitis B Core Ab Total NON-REACT ALESIA NON-REACT ALESIA 04/17/2024 6:46 PM EST [employer] Comment: For additional information, please refer to http://education.CrowdProcess/faq/HBI128 (This link is being provided for informational/ educational purposes only.) Blood Structure of peripheral vein / Unknown Venipuncture / Unknown 04/17/2024 9:32 AM EST 04/17/2024 9:45 AM EST Narrative [facility] - 04/17/2024 6:46 PM EST [facility] Received Date:[id number] Delmis Joseph MD LAB BLOOD ORDERABLES Final Result [facility] [address], [place] [address], [facility] [address], [place] [address], * (ABNORMAL) Vitamin D, 25-Hydroxy, Total, Immunoassay (04/17/2024 9:32 AM EST) Calcidiol+ercalc idiol 10(L) 30 - 100 ng/mL 04/17/2024 10:44 PM EST [employer] Comment: Vitamin D Status ? 25-OH Vitamin D: Deficiency: ?<20 ng/mL Insufficiency: ? 20 - 29 ng/mL Optimal: ? > or = 30 ng/mL For 25-OH Vitamin D testing on patients on D2-supplementation and patients for whom quantitation of D2 and D3 fractions is required, the QuestAssureD(TM) 25-OH VIT D, (D2,D3), LC/MS/MS is recommended: order code 89567 (patients >2yrs). See Note 1 Note 1 For additional information, please refer to http://education.CatchTheEye/faq/MRN205 (This link is being provided for informational/ educational purposes only.) Blood Structure of peripheral vein / Unknown Venipuncture / Unknown 04/17/2024 9:32 AM EST 04/17/2024 9:44 AM EST Narrative [employer] [place] - 04/17/2024 10:44 PM EST [facility] Received Date:[id number] us Delmis Joseph MD LAB BLOOD ORDERABLES Final Result Performing Organization Address City/[facility]/ZIP Co de Phone Number [facility] [address] [facility] 3rd Floor, [place] [address], [place] [phone] [facility] [address], [place] [address], [place] [phone] * Mitochondrial Antibody w/Reflex (04/17/2024 9:32 AM EST) Mitochondrial Ab Screen NEGATIVE NEGATIVE 04/18/2024 12:14 PM EST [facility] Blood Structure of peripheral vein / Unknown Venipuncture / Unknown 04/17/2024 9:32 AM EST 04/17/2024 9:45 AM EST Narrative [employer] [facility] - 04/18/2024 12:14 PM EST [facility] Received Date:[id number] us Delmis Joseph MD LAB BLOOD ORDERABLES Final Result [facility] [address] [facility] [address] [facility], [place] [address], [place] [phone] [facility] [address], [place] [address], * Toxoplasma gondii Antibody, IgG (04/17/2024 9:32 AM EST) Toxoplasma Ab IgG <7.20 IU/mL 04/17/2024 7:37 PM EST [employer] Comment: ? IU/mL ?Interpretation ? ------ ? <7.20 ?Negative ? 7.20-8.79 ?Equivocal ? >8.79 ?Positive Blood Structure of peripheral vein / Unknown Venipuncture / Unknown 04/17/2024 9:32 AM EST 04/17/2024 9:45 AM EST Narrative [facility] - 04/17/2024 7:37 PM EST [facility] Received Date: Delmis Joseph MD LAB BLOOD ORDERABLES Final Result Performing Organization Address City/State/[facility] Co de Phone Number [facility] [address] [facility] [address] [facility], [place] [address], [facility] [address], [place] [address], * (ABNORMAL) Hepatitis B Surface Antibody (04/17/2024 9:32 AM EST) Pathologist [facility] Hepatitis B Surface Ab Immunity, Qn <5(L) > OR = 10 mIU/mL 04/17/2024 9:50 PM EST [facility] Comment: PATIENT DOES NOT HAVE IMMUNITY TO HEPATITIS B VIRUS. For additional information, please refer to http://education.CrowdProcess/faq/WZU569 (This link is being provided for informational/ educational purposes only). Blood Structure of peripheral vein / Unknown Venipuncture / Unknown 04/17/2024 9:32 AM EST 04/17/2024 9:44 AM EST N[facility]ative [facility] - 04/17/2024 9:50 PM EST [facility] Received Date:[id number] us Delmis Joseph MD LAB BLOOD ORDERABLES Final Result Performing Organization Address City/[facility]/ZIP Co de Phone Number [facility] [address], [place] [address], [place] [phone] [facility] [address], [place] [address], [place] [phone] * Hepatitis B Surface Antigen W/Confirmation (04/17/2024 9:32 AM EST) Hepatitis B Surface Antigen NON-REACT ALESIA NON-REACT ALESIA 04/17/2024 10:53 PM EST [facility] Comment: For additional information, please refer to http://education.CrowdProcess/faq/RYP700 (This link is being provided for informational/ educational purposes only.) Blood Structure of peripheral vein / Unknown Venipuncture / Unknown 04/17/2024 9:32 AM EST 04/17/2024 9:44 AM EST Narrative [facility] - 04/17/2024 10:53 PM EST [facility] Received Date:[id number] us Delmis Joseph MD LAB BLOOD ORDERABLES Final Result Performing Organization Address City/[facility]/ZIP Co de Phone Number [facility] [address] [facility] [address] [facility], [place] [address], [place] [phone] [facility] [address], [place] [address], [place] [phone] * (ABNORMAL) Cytomegalovirus Antibody, IgG (04/17/2024 9:32 AM EST) Cytomegalovirus Antibody (IgG) >10.00(H ) U/mL 04/18/2024 6:31 AM EST [employer] Comment: ? U/mL ? Interpretation ? ----- ? <0.60 ? Negative ? 0.60-0.69 ? Equivocal ? > or = 0.70 ?? Positive A positive result indicates that the patient has antibody to CMV. It does not differentiate between an active or past infection. Blood Structure of peripheral vein / Unknown Venipuncture / Unknown 04/17/2024 9:32 AM EST 04/17/2024 9:44 AM EST Narrative [facility] [place] - 04/18/2024 6:31 AM EST [facility] Received Date: Delmis Joseph MD LAB BLOOD ORDERABLES Final Result [facility] [address] [facility] 3[address], [place] [address], [facility] 200 [facility] 3rd Floor, [place] [address], * Rheumatoid Factor (04/17/2024 9:32 AM EST) [facility] Rheumatoid Factor <10 <14 IU/mL 04/17/2024 5:46 PM EST [employer] Blood Structure of peripheral vein / Unknown Venipuncture / Unknown 04/17/2024 9:32 AM EST 04/17/2024 9:45 AM EST Narrative [facility] - 04/17/2024 5:46 PM EST [facility] Received Date:[id number] Delmis Joseph MD LAB BLOOD ORDERABLES Final Result [facility] [address] [facility] [address]rd Floor, [place] [address], [employer] 200 [facility] 3rd Floor, [address] [place] [address], * Varicella Zoster Antibody, IgG (04/17/2024 9:32 AM EST) Pathologist [facility] Varicella Zoster Virus Antibody 7.16 S/CO 04/18/2024 12:29 PM EST [employer] Comment: ?Signal to Cut-off ? S/CO ?Interpretation [...] 9:32 AM EST 04/17/2024 9:44 AM EST [employer] [facility] - 04/18/2024 12:29 PM EST [facility] Received Date: Delmis Joseph MD LAB BLOOD ORDERABLES Final Result [facility] [address] [facility] 3[address] Floor, [place] [address], [employer] 200 [facility] 3rd Floor, [place] [address], * Hemoglobin A1c (04/17/2024 9:32 AM EST) Hemoglobin A1C 5.3 <5.7 % of total Hgb 04/18/2024 10:23 AM [employer] Comment: For the purpose of screening for the presence of diabetes: <5.7% ? Consistent with the absence of diabetes 5.7-6.4% ?Consistent with increased risk for diabetes ?(prediabetes) > or =6.5% ??Consistent with diabetes This assay result is consistent with a decreased risk of diabetes. Currently, no consensus exists regarding use of hemoglobin A1c for diagnosis of diabetes in children. According to [place] Diabetes Association (ADA) guidelines, hemoglobin A1c <7.0% represents optimal control in non- diabetic patients. Different metrics may apply to specific patient populations. Standards of Medical Care in Diabetes(ADA). ?? eAG (MG/DL) 105 mg/dL 04/18/2024 10:23 AM EST [employer] eAG (MMOL/L) 5.8 mmol/L 04/18/2024 10:23 AM [employer] Blood Structure of peripheral vein / Unknown Venipuncture / Unknown 04/17/2024 9:32 AM EST 04/17/2024 9:41 AM EST Narrative [employer] [place] - 04/18/2024 10:23 AM EST [facility] Received Date:[id number] Delmis Joseph MD LAB BLOOD ORDERABLES Final Result [facility] [address] [facility] 3[address] Floor, [place] [address], [place] [phone] [facility] 200 [facility] 3rd Floor, [place] [address], [place] [phone] * (ABNORMAL) CEA (04/17/2024 9:32 AM EST) CEA 4.7(H) <=3.7 ng/mL 04/17/2024 10:22 AM EST [email or web address] Comment: Smokers Reference Range: ?? <5.5 ng/mL This test was performed using Aurora electrochemiluminescence immunoassay method. Values obtained by different assay methods cannot be used interchangeably. Blood Structure of peripheral vein / Unknown Venipuncture / Unknown 04/17/2024 9:32 AM EST 04/17/2024 9:44 AM EST Delmis Joseph MD LAB BLOOD ORDERABLES Final Result Performing Organization Address City/[facility]/ZIP Co de Phone Number [email or web address] [address] [place] [address], * (ABNORMAL) Iron Saturation (04/17/2024 6:45 AM EST) Iron Saturation 45 20 - 50 % 9:49 AM EST [email or web address] Iron 53 45 - 160 ug/dL 04/17/2024 9:49 AM EST [employer] [facility] Transferrin 94(L) 200 - 360 mg/dL 04/17/2024 9:49 AM EST [email or web address] Total Iron Binding Capacity 118(L) 255 - 450 ug/dL 04/17/2024 9:49 AM EST [email or web address] Blood Structure of peripheral vein / Unknown Venipuncture / Unknown 04/17/2024 6:45 AM EST 04/17/2024 7:04 AM EST Delmis Joseph MD LAB BLOOD ORDERABLES Final Result Performing Organization Address [facility]/ZIP Co de Phone Number [email or web address] [address] [place] [address], [place] * TSH Reflex Free T4 (04/17/2024 6:45 AM EST) TSH 1.190 0.280 - 3.890 uIU/mL 04/17/2024 9:49 AM EST [email or web address] Blood Structure of peripheral vein / Unknown Venipuncture / Unknown 04/17/2024 6:45 AM EST 04/17/2024 7:04 AM EST Delmis Joseph MD LAB BLOOD ORDERABLES Final Result Performing Organization Address [facility] Co de Phone Number [email or web address] [address] [place] [address], [place] * (ABNORMAL) Ferritin (04/17/2024 6:45 AM EST) Ferritin 907.0(H) 23.0 - 336.0 ng/mL 04/17/2024 9:49 AM EST [email or web address] Blood Structure of peripheral vein / Unknown Venipuncture / Unknown 04/17/2024 6:45 AM EST 04/17/2024 7:04 AM EST Delmis Joseph MD LAB BLOOD ORDERABLES Final Result Performing Organization Address [facility] Co de Phone Number [email or web address] [address] [place] [address], [place] * Cholesterol, Total (04/17/2024 6:45 AM EST) Cholesterol 65 <=199 mg/dL 04/17/2024 9:49 AM EST [email or web address] Comment: Adult Treatment Panel [...] BLOOD ORDERABLES Final Result Performing Organization Address City/State/[facility] Co de Phone Number [email or web address] [address] [place] [id number], * Paracentesis (04/14/2024 7:29 AM EST) Narrative [...] ??Patient's understanding of procedure matches consent: ??Yes [place] Protocol: ??Procedure consent matches procedure scheduled: ??Yes [...] <31 <80 pg/mL 04/17/2024 1:30 PM EST [employer] Comment: Interpretation: The Fungitell assay does not detect certain fungal species such as the genus Cryptococcus (Abisai et al. 1991) which produces very low levels of (1-3)-Vdpr-H-Kolujm. The assay also does not detect the Zygomycetes such as Absidia, Mucor and Rhizopus (Jill et al. 1994) which are not known to produce (1-3)-Ywha-T-Playrc. In addition, the yeast phase of Blastomyces dermatitidis produces little (1-3)-Yrqj-W-Xbnmfn and may not be detected by the [...] characteristics for these modifications were determined by [employer]. If sample result is greater than 500 pg/mL, physician may order a titer of the sample. Please contact [employer] if you would like to order a [...] MD LAB BLOOD ORDERABLES Final Re sult [facility] [address] [place] [address], * Non-Gynecologic Cytology (04/13/2024 5:44 PM EST) Final Diagnosis Specimen 1: Ascites; Ascites Fluid Negative for malignant cells. [facility] MANUAL 04/16/2024 12:38 PM EST [email or web address] at 1238 EST Clinical History cirrhosis, new onset ascites [facility] MANUAL 04/16/2024 12:38 PM EST [email or web address] Gross Description Specimen 1: Received 80 mL hazy yellow fluid Made 1 ThinPrep and 1 Cell Block Total [address] [facility] MANUAL 04/16/2024 12:38 PM EST [employer] [facility] Embedded Images [facility] MAN[facility] 04/16/2024 12:38 PM EST [employer] [facility] Disclaimer Some of these tests were developed and their performance characteristics determined by the Cytology Laboratory of [facility]. They have not been cleared or approved [...] to perform high complexity clinical laboratory testing. [facility] MANUAL 04/16/2024 12:38 PM EST [employer] [facility] Resulting Agency Case was signed out at [facility], Department of Pathology, [facility] CLIA [id number] [facility] MANUAL 04/16/2024 12:38 PM EST [email or web address] Report Header Non-Gynecologic Cytology Report ? Case: [id number] ? Authorizing Provider: ??Abelardo Medrano MD ?Collected: ? 04/13/2024 1744 ? Ordering Location: ? [facility] ? Received: ?04/13/2024 1844 ? [place] ? 6 Intensive Care Unit ? Pathologist: ? Redd Felix MD ? Specimen: ?Ascites ? 04/16/2024 12:38 PM EST [facility] ANATOMIC PATHOLOGY LABORATORY Ascites Fluid Ascitic fluid / Unknown Non-Blood Collection / Unknown 04/13/2024 5:44 PM EST 04/13/2024 6:44 PM EST us Abelardo Medrano MD LAB PATHOLOGY/CYTOLOGY ORDERA BLES Final Result [facility] LAB[facility]ATORY [address] [place] [address], * Triglycerides, Body Fluid (04/13/2024 5:36 PM EST) Only the most recent of2 resultswithin the time period is included. Triglycerides, Fluid 19 mg/dL 04/13/2024 7:32 PM EST [facility] Comment: No reference range available. This test was developed and its performance characteristics determined by [facility] Clinical Labs. FDA has not [...] OR DERABLES Final Result Performing Organization Address [facility] de Phone Number [facility] [employer] [facility] LAB[facility]ORY [address] [place] [address], [place] * Amylase, Body Fluid (04/13/2024 5:36 PM EST) Amylase, Fluid <10 U/L 04/13/2024 7:32 PM EST [facility] [employer] [facility] Comment: No reference range available. This test was developed and its performance characteristics determined by [facility] Clinical Labs. [facility] has not approved or cleared this test. [...] OR DERABLES Final Result Performing Organization Address [facility] Co de Phone Number [facility] CL[facility]ICAL PATHOLOG[facility] LABORATORY [address] [place] [address], [place] * Phosphatidylethanol (PEth) (04/12/2024 12:09 PM [...] (PLPEth) <10 ng/mL 04/16/2024 11:50 AM EST [facility] Comment:Reference ranges are not well established. EER Peth See Note 04/16/2024 11:50 AM EST [facility] Comment: Authorized individuals can access the [facility] Enhanced Report with an [employer] Connect account using the following link. Your local lab can assist you in obtaining the patient report if you don't have a Connect account. [email or web address] PEth Interpretation See Comment 03/27 11:50 AM EST [facility] Comment: Phosphatidylethanol (PEth) is a group [...] developed and its performance characteristics determined by [employer]. It has not been cleared or approved by the U.S. Food and Drug Administration. This test was performed in a CLIA-certified laboratory and is intended for clinical purposes. Performed By: [facility] [address] [place] [address] [employer]isher: Cam Amaya MD, PhD CLIA Number: [id number] Blood Structure of peripheral vein / Unknown Venipuncture / Unknown 04/12/2024 12:09 PM EST 04/12/2024 12:18 PM EST us Abelardo Medrano MD LAB BLOOD ORDERABLES Final Re sult [facility] [address] [place] [address], [place] * CT Abd Pelvis WO Contrast [...] obtain the completed interpretation. ? Workstation ID: [id number] Narrative 04/11/2024 10:28 PM EST COMPARISON: 01/29/2024 [...] lesion is identified. . Resulting Agency Comment [id number] Procedure Note Elias Velásquez MD - 04/11/2024 [...] possible to obtain thecompleted interpretation. Workstation ID: [id number] Yovana Snyder MD IMG CT PROCEDURES Final Result * (ABNORMAL) Urinalysis W/Reflex to Microscopic (No Culture) (04/11/2024 8:27 PM EST) Color, Urine Deann(A) Colorless, Light Yellow, Yellow, Dark Yellow 04/11/2024 9:34 PM EST [email or web address] Clarity, Urine Cloudy(A) Clear 04/11/2024 9:34 PM EST [email or web address] Specific [place], Urine 1.019 1.005 - 1.030 04/11/2024 9:34 PM EST [email or web address] pH, Urine 5.0 4.6 - 8.0 04/11/2024 9:34 PM EST [facility] Protein, Urine 2+(A) Negative 04/11/2024 9:34 PM EST [facility] Glucose, Urine 1+(A) Negative 04/11/2024 9:34 PM EST [facility] Ketones, Urine Negative Negative 04/11/2024 9:34 PM EST [facility] Bilirubin, Urine Negative Negative 04/11/2024 9:34 PM EST [facility] Blood, Urine 1+(A) Negative 04/11/2024 9:34 PM EST [facility] Nitrite, Urine Negative Negative 04/11/2024 9:34 PM EST [facility] Urobilinogen, Urine Positive(A) Normal 04/11/2024 9:34 PM EST [facility] Leukocyte Esterase, Urine Trace(A) Negative 04/11/2024 9:34 PM EST [facility] WBC, Urine 21(H) 0 - 2 /HPF 04/11/2024 9:34 PM EST [facility] RBC, Urine 8(H) 0 - 2 /HPF 04/11/2024 9:34 PM EST [employer] Hyaline Casts, Urine >180(H) 0 - 2 /LPF 04/11/2024 9:34 PM EST [facility] Granular Casts, Urine 12 /LPF 04/11/2024 9:34 PM EST [facility] Squamous Epithelial Cells, Urine 3 /HPF 04/11/2024 9:34 PM EST [facility] Bacteria, Urine Rare(A) None /HPF /HPF 04/11/2024 9:34 PM EST [facility] Mucus, Urine Occasional /LPF 04/11/2024 9:34 PM EST [facility] Urine Urine specimen collection, clean catch / Unknown Non-Blood Collection / Unknown 04/11/2024 8:27 PM EST 04/11/2024 8:39 PM EST us Yovana Snyder MD LAB URINE ORDERABLES Final Res ult Performing Organization Address [facility] Co de Phone Number [email or web address] [address] [place] [address], [place] * (ABNORMAL) Urea Nitrogen, Urine Random (04/11/2024 8:27 PM EST) Urea Nitrogen, Urine 177 mg/dL 04/12/2024 2:27 AM EST [email or web address] Creatinine, Urine 190 22 - 328 mg/dL 04/12/2024 2:27 AM EST [email or web address] Urea Nitrogen/Creat inine, Urine Ratio 0.9(L) 2.8 - 9.8 gm/gmCr 04/12/2024 2:27 AM EST [email or web address] Urine Voided urine specimen / Unknown Non-Blood Collection / Unknown 04/11/2024 8:27 PM EST 04/11/2024 8:39 PM EST us Janina Chung MD LAB URINE ORDERABLES Final Resul t Performing Organization Address [facility] Co de Phone Number [email or web address] [address] [place] [address], [place] * Sodium, Random Urine with Creatinine (04/11/2024 8:27 PM EST) Sodium, Urine <20 mmol/L 04/11/2024 9:08 PM EST [email or web address] Creatinine, Urine 190 22 - 328 mg/dL 04/11/2024 9:08 PM EST [email or web address] Sodium/Creatin ine, Urine Ratio 04/11/2024 9:08 PM EST [email or web address] Comment:Unable to Calculate Urine Voided urine specimen / Unknown Non-Blood Collection / Unknown 04/11/2024 8:27 PM EST 04/11/2024 8:39 PM EST us Yovana Snyder MD LAB URINE ORDERABLES Final Res ult Performing Organization Address [facility]/ZIP Co de Phone Number [facility] [address] [place] [address], [place] * Osmolality, Urine (04/11/2024 8:27 PM EST) Pathologist [facility] Osmolality, Ur 266 70 - 900 mOsm/kg 04/12/2024 1:44 AM EST [facility] [employer] [facility] Urine Voided urine specimen / Unknown Non-Blood Collection / Unknown 04/11/2024 8:27 PM EST 04/11/2024 8:39 PM EST us Janina Chung MD LAB URINE ORDERABLES Final Resul t Performing Organization Address [facility] de Phone Number [facility] [address] [place] [address], [place] * (ABNORMAL) POCT I-STAT Lactate W/VBG, interfaced (04/11/2024 6:21 PM EST) [facility] Sample Type, POCT Venous 04/11/2024 11:01 PM EST [facility], POC Lactate, POCT 3.80(H) 0.9 - 1.7 mmol/L 04/11/2024 11:01 PM EST [facility], POC pH, POCT 7.29(L) 7.31 - 7.41 pH 04/11/2024 11:01 PM EST [facility], POC pCO2, POCT 39.0(L) 41 - 51 mm Hg 04/11/2024 11:01 PM EST [facility], POC pO2, POCT 18(L) 35 - 40 mm Hg 04/11/2024 11:01 PM EST [facility], POC Base Excess, POCT -8(L) 0 - 3 mmol/L 04/11/2024 11:01 PM EST [facility], POC HCO3, POCT 18.7(L) 23 - 28 mmol/L 04/11/2024 11:01 PM EST [facility], POC TCO2, POCT 20(L) 24 - 29 mmol/L 04/11/2024 11:01 PM EST [facility], POC Saturated O2, POCT 22(L) 70 - 75 % 04/11/2024 11:01 PM EST [facility], POC FIO2, POCT 21 % 04/11/2024 11:01 PM EST [facility], POC Hilario's Test, POCT N/A 04/11/2024 11:01 PM EST [facility], POC Blood 04/11/2024 6:21 PM EST 04/11/2024 11:01 PM EST us Yovana Snyder MD LAB POCT ORDERABLES - DEVICE F inal Result [facility] [address] [place] [address], * Fungus Culture, Blood (04/11/2024 6:21 PM EST) Culture No fungal growth at 4 Weeks 05/12/2024 1:00 PM EST [facility] [facility] Blood Structure of peripheral vein / Unknown Venipuncture / Unknown 04/11/2024 6:21 PM EST 04/11/2024 6:40 PM EST Narrative [facility] - 05/12/2024 1:00 PM EST [facility] Received Date: MICRO NUMBER: [id number] SPECIMEN QUALITY: Adequate SOURCE: BLOOD STATUS: FINAL us Yovana Snyder MD LAB MICROBIOLOGY - GENERAL ORD ERABLES Final Result [facility] [address] [place] [address] [address]rd Floor, [place] [address], [place] [phone] [facility] [address] [address] * (ABNORMAL) Bilirubin, Total (04/11/2024 6:21 PM EST) Bilirubin, Total 1.6(H) 0.2 - 1.2 mg/dL 04/11/2024 7:12 PM EST [facility] [employer] CL[facility] LAB[facility] Blood Structure of peripheral vein / Unknown Venipuncture / Unknown 04/11/2024 6:21 PM EST 04/11/2024 6:42 PM EST us Yovana Snyder MD LAB BLOOD ORDERABLES Final Res ult [facility] LAB[facility]ORY [address] [place] [address], * Lactic Acid, Body Fluid (04/11/2024 5:49 PM EST) SR Source Peritoneal Fluid 04/13/2024 4:24 PM EST [facility] LABORATORY Comment: Performed At: [facility] ([facility]) [facility] CLINICAL LABORATORY [place], [place] ??[address] Dietetic Aide: J LUIS KLEIN DO CLIA Number: [id number] Lactic Acid, Body Fluid 8.3 mmol/L 04/13/2024 4:24 PM EST [facility] Comment: INTERPRETIVE INFORMATION: Lactic Acid, Body Fluid ?? Reference ranges for this assay have not been established for body fluid. Results should be interpreted in comparison to the lactic acid concerntration in blood and in conjunction with the clinical context. ?? This test was developed and its performance characteristics determined by [facility]. It has not been cleared or approved by the [place] Food and Drug Administration. This test was performed in a CLIA certified laboratory and is intended for clinical purposes. Performed At: [facility] LAB ([facility]) [facility] CLINICAL LABORATORY [place], [place] ??[address] Dietetic Aide: J LUIS KLEIN DO CLIA Number: [id number] Peritoneal Fluid Peritoneal cavity structure / Unknown Non-Blood Collection / Unknown 04/11/2024 5:49 PM EST 04/11/2024 6:55 PM EST Yovana Snyder MD LAB BODY FLUIDS AND STOOLS ORD ERABLES Final Result [facility] [address] [place] [address], [place] * pH, Body Fluid (04/11/2024 5:49 PM EST) Fluid Type Peritoneal 04/11/2024 7:26 PM EST [email or web address] pH, Fluid 7.26 04/11/2024 7:26 PM EST [email or web address] Comment: No reference range available. This test was developed and its performance characteristics determined by [facility] Clinical Labs. FD has not [...] FLUIDS AND STOOLS ORD ERABLES Final Result Performing Organization Address City/[facility]/ZIP Co de Phone Number [facility] [address] [place] [address], [place] * Paracentesis - ED (04/11/2024 5:47 PM EST) Narrative Yovana Snyder MD - 04/11/2024 5:47 PM EST Marc Loepz MD ? 04/11/2024 ??5:48 PM Paracentesis - ED Date/Time: 04/11/2024 5:47 PM Performed by: Marc Lopez MD Authorized by: Yovana Snyder MD ?? Consent: ? Written consent obtained: Yes ? Risk and benefits discussed: Yes ? Written informed consent was obtained from the patient and spouse. ? Patient states understanding of procedure being performed: Yes ? Patient's understanding of procedure matches consent: Yes [place] Protocol: ? Procedure consent matches procedure scheduled: [...] - 295 mOsm/kg 04/11/2024 6:59 PM EST [email or web address] Blood Structure of peripheral vein / Unknown Venipuncture / Unknown 04/11/2024 5:26 PM EST 04/11/2024 6:12 PM EST Yovana Snyder MD LAB BLOOD ORDERABLES Final Res ult [facility] [address] [place] [address], * Acetaminophen Level (04/11/2024 5:26 PM EST) Acetaminophen <5.0 <10.0 ug/mL 04/12/2024 10:44 AM EST [email or web address] Comment:Expected Range with Therapeutic Dosin-30 ug/mL Blood Structure of peripheral vein / Unknown Venipuncture / Unknown 04/11/2024 5:26 PM EST 04/11/2024 6:12 PM EST Abelardo Medrano MD LAB BLOOD ORDERABLES Final Re sult Performing Organization Address [facility] de Phone Number [email or web address] CLINICAL PATHOLOG[facility] LABORATORY [address] [place] [address], [place] * ECG 12 lead (04/11/2024 5:17 PM EST) Ventricular Rate EKG 93 BPM MUSE EKG Atrial Rate 93 BPM MUSE EKG WY Interval 150 ms MUSE EKG QRS Interval 120 ms MUSE EKG QT Interval 408 ms MUSE EKG QTC Interval 507 ms MUSE EKG P [place]ult[place] 6 degrees MUSE EKG R [place] -24 degrees MUSE EKG T Wave [place] 28 degrees MUSE EKG 04/11/2024 5:17 PM EST 04/15/2024 3:19 PM EST Impressions MUSE EKG - 04/15/2024 3:19 PM EST NORMAL SINUS RHYTHM CANNOT RULE OUT ANTERIOR INFARCT , AGE UNDETERMINED ABNORMAL ECG NO PREVIOUS ECGS AVAILABLE Confirmed by Ovidio Vaughn ([id number]) on 04/15/2024 3:19:22 PM Yovana Snyder MD ECG ORDERABLES Final Result Performing Organization Address [facility] Phone Number MUSE EKG * Blood Culture Hold Bottles Set #1 (04/11/2024 5:01 PM EST) Blood Structure of peripheral vein / Unknown Venipuncture / Unknown 04/11/2024 5:01 PM EST 04/11/2024 5:32 PM EST Yovana Snyder MD LAB BLOOD ORDERABLES Final Res ult Performing Organization Address [facility] Co de Phone Number [facility] CLINICAL PATHOLOGY LABORATORY [address] [place] [address], [place] * Lipase (04/11/2024 5:01 PM EST) Lipase 16 13 - 60 U/L 04/11/2024 6:27 PM EST [facility] [employer] CLINICAL PATHOLOGY LABORATORY Blood Structure of peripheral vein / Unknown Venipuncture / Unknown 04/11/2024 5:01 PM EST 04/11/2024 5:35 PM EST Yovana Snyder MD LAB BLOOD ORDERABLES Final Res ult Performing Organization Address [facility] Co de Phone Number [facility] [employer] CLINICAL PATHOLOGY LABORATORY [address] [place] [address], [place] * Rapid COVID-19 RNA for Surveillance (04/11/2024 5:00 PM EST) Pathologist [facility] PCR, SARS CoV-2 RNA Not Detected Not Detected [employer] 04/11/2024 6:19 PM EST [facility] [employer] [facility] CLINICAL PATHOLOGY LABORATORY Comment:A Not Detected (Nega [...] PM EST 04/11/2024 5:34 PM EST Narrative [facility] CLINICAL PATHOLOGY LABORATORY - 04/11/2024 6:19 PM EST This test was developed, validated and its performance characteristics determined by [facility] Clinical Labs. This test has not been cleared or approved by the U.S. Food and Drug Administration (FDA). FDA Policy for Diagnostic Tests for Coronavirus Disease-2019 during the Public Health Emergency issued June 09, 2019, is followed. Mike Low MD LAB BODY FLUIDS AND STOO LS ORDERABLES Final Result Performing Organization Address [facility]/ZIP Co de Phone Number [facility] [employer] CLINICAL PATHOLOGY LABORATORY [address] [place] [address], [place] * ED POCUS Abdominal Single Organ (04/11/2024 4:35 PM EST) Anatomical Region Laterality Modality Body N/A Ultrasound 04/11/2024 4:35 PM EST Impressions 04/16/2024 1:37 PM EST Exam Information A oxluy-vz-fmly ultrasound was performed to assess the anatomy [...] Electronically signed by Tomás Durham MD on [email or web address] Narrative Procedure Note Tomás Durham MD - 04/16/2024 IMPRESSION: Exam Information A aayld-er-gfby ultrasound was performed to assess the anatomy [...] Electronically signed by Tomás Durham MD on [email or web address] us Historical Conversion Provider IMG US PROCEDURES Final Result * HEART & VASCULAR - SCANNED (04/11/2024) Anatomical Region Laterality Modality Other us Onbase Scan Maria Esther SCANNED PROCEDURES Final Resu lt from Last 3 Months Insurance [employer] [facility] [employer] Advance Directives Documents on File Type Date Recorded Patient [place]/Woman Expl anation Health Care Proxy 04/17/2024 10:33 AM 03-27 Power of Buyer Grain 04/17/2024 7:16 AM Health Care Proxy 04/16/2024 [...] Agents on File Name Relationship Healthcare Agent Relationshi p Communication Sana Correa Spouse Alternate Health Care Agent [phone] ([email or web address]) [email or web address] Care Teams [employer]or Relationship Specialty Start Date End Date Jade Harper [address] [place] [address] dr Charly Parks, [place]AL[place] [address] PCP - General Internal Medicine 03/06/24
--- OUTSIDE RECORDS SUMMARY | 2024-05-28 11:39 | XMS_ITS | Encounter Summary ---
Author Organization [facility] Address [address] [place] [address] Care Team Providers Care Ict Help Desk Officer Name Role Phone Jade Harper Primary Care Provider [phone] Encounter Details Date Type Department Care Team (Late st Contact Info) Description 05/08/2024 Telephone [facility] Interventional Radiology [address] [place] [address] Kimberly Caruso RN Social History Tobacco Use Types Packs/Day Years Used Date Smoking Tobacco: Never Smokeless Tobacco: Never Alcohol Use Standard Drinks/Week Comments Not Currently 8 (1 standard drink = 0.6 oz pur e alcohol) sober since 11/2023 [facility] Utilities Answer Date Recorded In the past 12 months has [employer], gas, oil, or water Assurely threatened to shut off services in your [...] PM EST documented as of this encounter Miscellaneous Notes * Telephone Encounter - Kimberly Caruso RN - 05/08/2024 9:11 AM EST Spoke with pt's to confirm time and location of appt on 05/09 for paracentesis. documented in this encounter Plan of Treatment Upcoming Encounters Date Type Department Care Team (Latest Contact Info) Description 5 10:30 AM EST Appointment [facility] Interventional Radiology [address] [place] [address] Mike Rey i, MD [address] [place] [address] 5 10:30 AM EDT Appointment [facility] Interventional Radiology [address] [place] [address] Mike Rey i, MD [address] [place] [address] 5 2:00 PM EDT Pre-Admission Testing [facility] [address] [facility] [address] [place] [address] 5 10:00 AM EDT Appointment [facility] Interventional Radiology [address] [place] [address] Mike Rey i, MD [address] [place] [address] 5 10:30 AM EDT Appointment [facility] Interventional Radiology [address] [place] [address] Mike Rey i, MD [address] [place] [address] 5 9:00 AM EDT Pre-Admission Testing [facility] [address] [facility] [address] [place] [address] 5 10:30 AM EDT Appointment [facility] Interventional Radiology [address] [place] [address] Mike Rey i, MD [address] [place] [address] 5 10:30 AM EDT Appointment [facility] Interventional Radiology [address] [place] [phone] Mike Rey i, MD [address] [place] [phone] 5 8:30 AM EDT Hospital Encounter [facility] Operating Room [address] [place] [address] Rachel Murray MD [address] [place] [address] 5 8:30 AM EDT - 5 9:30 AM EDT Surgery [facility] Operating Room [address] [place] [address] Rachel Murray MD [address] [place] [address] ENDOSCOPIC RETROGRADE CHOLANGIOPANCREATOGRAPHY WITH REMOVAL OF FOREIGN BODY(S)/STENT(S)/PANCREATIC DUCT(S) WITH POSSIBLE MODERATE SEDATION [72327 (CPT??)] 5 10:30 AM EDT Appointment [facility] Interventional Radiology [address] [place] [address] Mike Rey i, MD [address] [place] [phone] 5 4:30 PM EDT Follow-Up [facility]plant [facility] [address] [place] [phone] Mike Rey i, MD [address] [place] [address] 5 10:30 AM EDT Appointment [facility] Interventional Radiology [address] [place] [address] Mike Rey i, MD [address] [place] [phone] 5 10:30 AM EDT Appointment [facility] Interventional Radiology [address] [place] [phone] Mike Rey i, MD [address] [place] [phone] 5 10:30 AM EDT Appointment [facility] Interventional Radiology [address] [place] [address] Mike Rey i, MD [address] [place] [address] 5 10:30 AM EDT Appointment [facility] Interventional Radiology [address] [place] [address] Mike Rey i, MD [address] [place] [address] 5 10:30 AM EDT Appointment [facility] Interventional Radiology [address] [place] [phone] Mike Rey i, MD [address] [place] [phone] 5 10:30 AM EDT Appointment [facility] Interventional Radiology [address] [place] [address] Mike Rey i, MD [address] [place] [address] 5 10:30 AM EDT Appointment [facility] Interventional Radiology [address] [place] [phone] Mike Rey i, MD [address] [place] [address] 5 10:30 AM EDT Appointment [facility] Interventional Radiology [address] [place] [address] Mike Rey i, MD [address] [place] [address] 5 10:30 AM EDT Appointment [facility] Interventional Radiology [address] [place] [phone] Mike Rey i, MD [address] [place] [address] 5 10:30 AM EDT Appointment [facility] Interventional Radiology [address] [place] [address] Mike Rey i, MD [address] [place] [phone] 5 10:30 AM EDT Appointment [facility] Interventional Radiology [address] [place] [address] Mike Rey i, MD [address] [place] [address] Scheduled Procedures Name Priority Associated Diagnoses Date/Ti me ENDOSCOPIC RETROGRADE CHOLANGIOPANCREATOGRAPHY WITH REMOVAL OF FOREIGN BODY(S)/STENT(S)/PANCREATIC DUCT(S) WITH POSSIBLE MODERATE SEDATION Encounter for removal of biliary stent 07/04/2024 8:30 AM EDT LAPAROSCOPIC CHOLECYSTECTOMY Acute cholecystitis documented as of this encounter Visit Diagnoses Not on filedocumented in this encounter Care Teams Ict Help Desk Officer Relationship Specialty Start Date End Date Jade Harper [address] [place] [address] dr Charly Parks, [place] [address] PCP - General Internal Medicine 03/06/24 documented as of this encounter
--- OUTSIDE RECORDS SUMMARY | 2024-05-28 11:40 | XMS_ITS ---
Author Organization [facility] Address [address] [place] [phone] Care Team Providers Care Contamination Consultant Name Role Phone Po Jade HAMMOND Primary Care Provider Santos Almeida Jr REASON FOR VISIT cancel appt Encounters Encounter Location Date Provider Diagnosis [facility] [address] [place] [address] 03/28/2024 Santos Khan Jr Plan Of Treatment No Information Progress Notes * DARCIE CAMACHO CDOB:1960 (63 yo M)Acc No.[id number]:03/28/2024 Patient:?DARCIE CAMACHO :1960???Age:63 Y???Sex:Male Address:[facility] [place], [address] * true * Date:? Generated for Printi ever/Kenroy/eTransmitting on:?05/28/2024 11:38 AM EST
--- OUTSIDE RECORDS SUMMARY | 2024-05-28 11:40 | XMS_ITS | Encounter Summary ---
Author Organization [facility] Address [address] [place] [address] Care Team Providers Care Biometrics Specialist Name Role Phone LeroySarahcandy No Primary Care Provider [phone] Reason for Visit * Auth/Cert (Routine) Specialty Diagnoses / Procedures Referred By Contac t Referred To Contact Diagnoses SBP (spontaneous bacterial peritonitis) ([facility]) TrAC- SBP Referral ID Status Reason Start Date Expiration Date Visits Re quested Visits Authorized [id number] 99 [phone] Encounter Details Date Type Department Care Team (Late st Contact Info) Description 05/02/2024 1:59 PM EST Anesthesia Event [facility] Operating Room [address] [place] [address] Grady Riley MD [address] [place] [address] Anesthesia Record Procedure Summary Procedure Name Responsible Anesthesiologist Anesthesia Start Time Anesthesia Stop Time ENDOSCOPIC RETROGRADE CHOLANGIOPANCREATOGR APHY, DIAGNOSTIC WITH POSSIBLE BRUSHING OR WASHING AND POSSIBLE MODERATE SEDATION Grady Riley MD 05/02/24 1359 05/02/24 1652 Events Date Time Event Comment 05/02/2024 1314 1359 An Start 1359 In Room 1359 An Start Data 1404 An Induction The patient was reevaluated immediately before induction of anesthesia. 1406 An Intubation 1407 Anesthesia Ready 1414 Proc Start 1633 Proc Fin 1635 An Extubation 1642 an stop data 1642 An Extubation 1643 Out of Room 1651 Handoff to RN I completed my handoff to the receiving nurse during which we: 1. Identified the patient 2. Identified the responsible provider 3. Reviewed the pertinent medical history 4. Discussed the surgical course 5. Reviewed intra-op anesthesia management and issues during anesthesia 6. Set expectations for post-procedure period 7. Allowed opportunity for questions and acknowledgement of understanding. 1651 An Stop Meds Name Total midazolam (VERSED) 1 mg/mL injection zuri ution 2 mg fentaNYL (SUBLIMAZE) injection 100 mcg ondansetron (ZOFRAN) injection 4 mg propofol (DIPRIVAN) bolus 200 mg succinylcholine (ANECTINE) 20 mg/mL inje ction solution 120 mg lidocaine PF (XYLOCAINE-Cardiac) IV inje ction 2% (20 mg/mL) 40 mg sodium chloride 0.9% (NS) infusion 800 m L * Agents Name ETO2 (%) Actual Inspired FiO2 (O2%) Set FiO2 (O2%) O2 Flow (L/min) Sevoflurane * Blood No blood administrations on file. Lines, Drains, and Airways Type Details Placement Removal Biliary Tube 04/29/24 (present on admission); 1314; 1; (Pigtail drain); RUQ; Intact 04/29/24 1314 by Ayesha Jack RN Biliary Tube 02/07/24; 1000; [facility]; 1; RMQ 02/07/24 1000 by Mayra Cai RN 05/02/24 1834 by Amy Lipscomb RN Incision / Procedural Site 04/29/24; 1313; Flank; Left, Lower, Mid; 05/15/24 04/29/24 1313 by Ayesha Jack RN 05/15/24 0000 by Lauri Avendano RN Peripheral IV Placement Date: 10/17; Placement Time: 914; Catheter Size: 20 G; Orientation: Posterior, Right; Location: Forearm; Site Prep: Alcohol, Chlorhexidine; Local Anes: None; Technique: Transillumination (Vein Finder); Inserted by: Makayla Trevizo RN CO- IV Resource; Insertion Attempts: 3; Patient Tolerance: Tolerated well; Removal Date: 05/03/24; Removal Time: 1221 05/02/24 0915 by Makayla Trevizo RN 05/03/24 1221 by Sarah Adams RN ETT Placement Date 05/02; Placement Time 1406; Mask Ventilation Not attempted; Technique Direct laryngoscopy; Single Lumen Tube Size 7.5 mm; Cuffed Yes; Laryngoscope Honeycutt; Blade Size 3; Measured from Lips; Secured at (cm) 22 cm; Location Oral; Grade View Grade I; Insertion Attempts 1; Placement Verification Auscultation, Capnometry, Symmetrical chest wall movement; Removal Date 05/02/24; Removal Time 1635 05/02/24 1406 by Khadra Ruiz, OVERHEAD CRANE INSPECTOR 05/02/24 1635 by Grady Riley MD documented in this encounter Social History Tobacco Use Types Packs/Day Years Used Date Smoking Tobacco: Never Smokeless Tobacco: Never Alcohol Use Standard Drinks/Week Comments Not Currently 8 (1 standard drink = 0.6 oz pur e alcohol) sober since 11/2023 [facility] Utilities Answer Date Recorded In the past 12 months has [employer], gas, oil, or water [employer] threatened to shut off services in your [...] Sign Reading Time Taken Comments Blood Pressure 113/75 05/02/2024 4:28 PM EST Pulse 96 05/02/2024 4:31 PM EST Temperature 36.7 ??C (98.1 ??F) 05/02/2024 2:08 PM ES T Respiratory Rate 0 05/02/2024 4:42 PM EST Oxygen Saturation 92% 05/02/2024 4:42 PM EST Inhaled Oxygen Concentration - - Weight - - Height - - Body Mass Index - - documented in this encounter OR Notes * Anesthesia Postprocedure Evaluation - Grady Riley MD - 05/02/2024 4:42 PM EST Anesthesia Post-procedure Evaluation Patient: Nate Correa : 1960 Date of Procedure: 05/02/2024 Procedure Summary Date: 05/02/24 Room / Location: [facility] / [facility] Anesthesia Start: 1359 Anesthesia Stop: Procedure: ENDOSCOPIC RETROGRADE CHOLANGIOPANCREATOGRAPHY, DIAGNOSTIC WITH POSSIBLE BRUSHING OR WASHING AND POSSIBLE MODERATE SEDATION Diagnosis: Surgeons: Rachel Murray MD Responsible Provider: Grady Riley MD Anesthesia Type: general ASA Status: 4 Anesthesia Type: general Last vitals Vitals Value Taken Time BP 113/75 05/02/24 1628 Pulse 96 05/02/24 1631 Resp 0 05/02/24 1642 SpO2 92 % 05/02/24 1642 Anesthesia Post Evaluation Patient location during evaluation: PACU Patient participation: complete - patient participated Level of consciousness: awake Pain management: adequate Anesthetic complications: no Nausea and Vomiting: no Cardiovascular status: acceptable Respiratory status: acceptable Hydration status: acceptable No notable events documented. Grady Riley MD Date: 05/02/2024 Time: 4:42 PM * Anesthesia Preprocedure Evaluation - Grady Riley MD - 05/02/2024 7:59 AM EST Images from the original note were not included. Anesthesia Pre-procedure Evaluation Patient: Nate Correa : 1960 Date of Procedure: 05/02/2024 Preoperative Diagnosis: * No Diagnosis Codes entered * ENDOSCOPIC RETROGRADE CHOLANGIOPANCREATOGRAPHY, DIAGNOSTIC WITH POSSIBLE BRUSHING OR WASHING AND POSSIBLE MODERATE SEDATION: 20938 (CPT??) Surgeon(s): Rachel Murray MD Past Medical / Past Surgical: Past Medical History: Diagnosis Date ALC (alcoholic liver cirrhosis) (CMS/HCC) (HCC) Alcoholism (CMS/HCC) (HCC) sober since 11/2023 Hyperlipidemia Hypertension Prediabetes Past Surgical History: Procedure Laterality Date IR CHOLECYSTOSTOMY TUBE PLACEMENT AR ERCP DX COLLECTION SPECIMEN BRUSHING/WASHING N/A 04/29/2024 Procedure: ENDOSCOPIC RETROGRADE CHOLANGIOPANCREATOGRAPHY, DIAGNOSTIC WITH POSSIBLE BRUSHING OR WASHING AND POSSIBLE MODERATE SEDATION; Surgeon: Rachel Murray MD; Location: [facility] OR; Service: Gastroenterology TOE AMPUTATION TOTAL KNEE ARTHROPLASTY Left Social / Family Histories: Vaping Questions Responses Vaping Use Never User Social History Tobacco Use Smoking status: Never Smokeless tobacco: Never Substance Use Topics Alcohol use: Not Currently Alcohol/week: 8.0 standard drinks of alcohol Types: 8 Cans of beer per week Comment: sober since 11/2023 Social History Substance and Sexual Activity Drug Use Never Family History Problem Relation Age of Onset Other Mother unsure of medical history Myocardial Infarction Father Prior to Admission medications Medication Sig Start Date End Date Taking? Authorizing Provider lisinopriL (PRINIVIL,ZESTRIL) 5 mg tablet SMARTSI Tablet(s) By Mouth Daily Yes Unknown Provider, simvastatin (ZOCOR) 5 mg tablet Take 5 mg by mouth at bed time. at bedtime. Patient not taking: Reported on 04/03/2024 12/12/23 Unknown Provider, Allergies: Patient has no known allergies. Vitals / Weight: Blood pressure 105/69, pulse 82, temperature 36.3 ??C (97.3 ??F), temperature source Oral, resp. rate 18, height 1.803 m (5' 11 ), weight 93 kg (205 lb), SpO2 92%. Recent Labs: Latest Ref Rng & Units 04/17/2024 9:32 AM HgbA1c Hemoglobin A1C <5.7 % of total Hgb 5.3 Latest Ref Rng & Units 05/02/2024 4:11 AM CBC WBC 3.8 - 10.8 10*3/uL 4.1 Hgb 13.2 - 17.1 g/dL 11.3 Hct 38.5 - 50.0 % 32.6 MCV 80.0 - 100.0 fL 91.3 Plts 140 - 400 10*3/uL 80 Latest Ref Rng & Units 05/02/2024 4:10 AM Basic Metabolic Panel Sodium 135 - 145 mmol/L 135 Potassium 3.5 - 5.3 mmol/L 3.3 Chloride 98 - 107 mmol/L 104 Carbon Dioxide 22 - 32 mmol/L 19 Glucose 65 - 99 mg/dL 125 Creatinine 0.60 - 1.30 mg/dL 0.53 Calcium 8.6 - 10.5 mg/dL 8.3 EGFR >=60 mL/min/1.73m2 >90 Recent EKG: Patient's Hospital Problems: Patient Active Problem List Diagnosis Decompensated cirrhosis (HCC) SBP (spontaneous bacterial peritonitis) (HCC) Sepsis (HCC) Cholecystitis Hyperlipidemia Insomnia Moderate protein-calorie malnutrition (CMS/HCC) Hyponatremia Anesthesia Evaluation Patient summary reviewed. Anesthesia History: No history of anesthetic complications Pulmonary Cardiovascular Exercise tolerance: >4 METS (+) hypertension, hyperlipidemia , , , , , , , (-) past MN, dysrhythmias, murmur Neuro/Psych (+) ETOH, alcohol use remission (-) TIA, CVA GI/Hepatic/Renal (+) no heartburn, liver disease, cirrhosis (-) GERD, heartburn Endo/Other (-) diabetes mellitus Infectious Disease History of Present Illness: 63 y.o. male with h/o ETOH abuse (sober since 11/2023), HTN, HLD, prediabetes, and alcoholic liver cirrhosis who presented to an outside hospital in January 2024 for acutecholecystitis s/p cholecystostomy tube. With recurrent bacterial peritonitis, s/p urgent ERCP, now presenting for stent exchange. Hemodynamically stable. Lactate normal Has undergone paracenteses during this hospitalization Pt is 63 y.o. male with a pertinent medical history including ETOH abuse (sober since 11/2023), HTN,HLD, prediabetes, and alcoholic liver cirrhosis who presented to an outside hospital in January 2024 with c/o RUQ abdominal pain. He was found to have acute cholecystitis. He had a cholecystostomy tube placed and has completed antibiotic therapy. Given the finding of liver cirrhosis during his workup, he was referred to the transplant clinic at [facility]. He continues to have pain and discomfort related to the cholecystostomy tube and is wanting to proceed with the above procedure for definitive management. Physical Exam Airway Mallampati: II TM distance: >3 FB Neck ROM: full Mouth Opening: good Cardiovascular - normal exam Rhythm: regular (+) peripheral edema (Right worse than Left, Left 1+ non-pitting) (-) murmur Dental - normal exam Pulmonary - normal exam Breath sounds clear to auscultation Abdominal Anesthesia Plan ASA 4 Anesthesia Type: general Mild abdominal pain at site of cholestostomy tube. No nausea Dobutamine stress 03/2024: negative. ?? Patient achieved a peak HR of 160 bpm (102% APMHR) with 40 mcg of dobutamine and 0.5 mg of atropine. ?? No ECG evidence of ischemia. ?? Normal dobutamine stress echocardiogram with normal augmentation in LV contractility in all segments. Estimated peak stress LVEF >75%. No recent URI Able to lie flat. No O2 requirement No h/o stroke Never smoked, no alcohol use since 11/2023, no MJ, no recreational drugs Use of blood products discussed with patient who consented to blood products. Pre-Anesthesia Review by Attending Anesthesiologist: Grady Riley MD Date: 05/02/2024 Time: 7:59 AM I have interviewed and examined the patient and conducted a pre-anesthesia evaluation that includedreview of the complete medical history, notation of a relevant patient problem list and review of all pertinent preoperative studies, laboratory testing and specialty consultations. An assessment of anesthetic risk including ASA classification and an anesthetic plan have been documented. Original Author: Grady Riley MD documented in this encounter Plan of Treatment Upcoming Encounters Date Type Department Care Team (Latest Contact Info) Description 10:30 AM EST Appointment [facility] [address] [place] [phone] Mike Rey i, MD [address] [place] [phone] 10:30 AM EDT Appointment [facility] [address] [place] [phone] Mike Rey i, MD [address] [place] [address] 5 2:00 PM EDT Pre-Admission Testing [facility] Pre Surgical [address] [id number] 5 10:00 AM EDT Appointment [facility] Interventional Radiology [address] [place] [address] Mike Rey i, MD [address] [place] [address] 5 10:30 AM EDT Appointment [facility] [address] [place] [phone] Mike Rey i, MD [address] [place] [phone] 5 9:00 AM EDT Pre-Admission Testing [facility] Surgical [address] [address] 5 10:30 AM EDT Appointment [facility] [address] [place] [address] Mike Rey i, MD [address] [place] [phone] 5 10:30 AM EDT Appointment [facility] [address] [place] [address] Mike Rey i, MD [address] [place] [phone] 5 8:30 AM EDT Hospital Encounter [facility] Operating Room [address] [place] [address] Rachel Murray MD [address] [place] [address] 5 8:30 AM EDT - 5 9:30 AM EDT Surgery [facility] Operating Room [address] [place] [address] Rachel Murray MD [address] [place] [address] ENDOSCOPIC RETROGRADE CHOLANGIOPANCREATOGRAPHY WITH REMOVAL OF FOREIGN BODY(S)/STENT(S)/PANCREATIC DUCT(S) WITH POSSIBLE MODERATE SEDATION [99126 (CPT??)] 5 10:30 AM EDT Appointment [facility] [address] [place] [phone] Mike Rey i, MD [address] [place] [phone] 5 4:30 PM EDT Follow-Up [facility] Transplant Services [address] [place] [address] Mike Rey i, MD [address] [place] [phone] 5 10:30 AM EDT Appointment [facility] [address] [place] [address] Mike Rey i, MD [address] [place] [phone] 5 10:30 AM EDT Appointment [facility] [address] [place] [address] Mike Rey i, MD [address] [place] [phone] 5 10:30 AM EDT Appointment [facility] [address] [place] [address] Mike Rey i, MD [address] [place] [phone] 5 10:30 AM EDT Appointment [facility] [address] [place] [address] Mike Rey i, MD [address] [place] [address] 5 10:30 AM EDT Appointment [facility] [address] [place] [address] Mike Rey i, MD [address] [place] [address] 5 10:30 AM EDT Appointment [facility] [address] [place] [address] Mike Rey i, MD [address] [place] [phone] 5 10:30 AM EDT Appointment [facility] [address] [place] [address] Mike Rey i, MD [address] [place] [address] 5 10:30 AM EDT Appointment [facility] [address] [place] [phone] Mike Rey i, MD [address] [place] [address] 5 10:30 AM EDT Appointment [facility] [address] [place] [address] Mike Rey i, MD [address] [place] [phone] 5 10:30 AM EDT Appointment [facility] [address] [place] [address] Mike Rey i, MD [address] [place] [phone] 5 10:30 AM EDT Appointment [facility] [address] [place] [phone] Mike Rey i, MD [address] [place] [phone] Scheduled Procedures Name Priority Associated Diagnoses Date/Ti me ENDOSCOPIC RETROGRADE CHOLANGIOPANCREATOGRAPHY WITH REMOVAL OF FOREIGN BODY(S)/STENT(S)/PANCREATIC DUCT(S) WITH POSSIBLE MODERATE SEDATION Encounter for removal of biliary stent 07/04/2024 8:30 AM EDT LAPAROSCOPIC CHOLECYSTECTOMY Acute cholecystitis documented as of this encounter Visit Diagnoses Not on filedocumented in this encounter Administered Medications Inactive Administered Medications - up to 3 most recent administrations Medication Order MAR Action Action Date Dose Rate Site fentaNYL (PF) injection intravenous, As needed, Starting on Sun05/02/24 at 1404, Until Sun05/02/24 at 1652, Anesthesia Intra-op Given 05/02/2024 2:04 PM EST 100 mcg lidocaine PF (XYLOCAINE-Cardiac) 2% (100 mg/5 mL) injection intravenous, As needed, Starting on Sun05/02/24 at 1404, Until Sun05/02/24 at 1652, Anesthesia Intra-op Given 05/02/2024 2:04 PM EST 40 mg midazolam (VERSED) injection intravenous, As needed, Starting on Sun05/02/24 at 1401, Until Sun05/02/24 at 1652, Anesthesia Intra-op Given 05/02/2024 2:01 PM EST 2 mg ondansetron (ZOFRAN) injection intravenous, As needed, Starting on Sun05/02/24 at 1529, Until Sun05/02/24 at 1652, Anesthesia Intra-op Given 05/02/2024 3:29 PM EST 4 mg propofoL (DIPRIVAN) injection intravenous, As needed, Starting on Sun05/02/24 at 1404, Until Sun05/02/24 at 1652, Anesthesia Intra-op Given 05/02/2024 2:06 PM EST 20 mg Given 05/02/2024 2:05 PM EST 30 mg Given 05/02/2024 2:04 PM EST 150 mg sodium chloride 0.9% (NS) premix infusion intravenous, Continuous PRN, Starting on Sun05/02/24 at 1359, Until Sun05/02/24 at 1652, Anesthesia Intra-op New Bag/Syringe 05/02/2024 1:59 PM EST succinylcholine (ANECTINE) injection intravenous, As needed, Starting on Sun05/02/24 at 1405, Until Sun05/02/24 at 1652, Anesthesia Intra-op Given 05/02/2024 2:05 PM EST 120 mg documented in this encounter Care Teams Biometrics Specialist Relationship Specialty Start Date End Date Jade Harper [address] [place] [address] [place] [address] PCP - General Internal Medicine 03/06/24 documented as of this encounter
--- OUTSIDE RECORDS SUMMARY | 2024-05-28 11:40 | XMS_ITS | Encounter Summary ---
Author Organization [facility] Address [address] [place] [address] Care Team Providers Care Public Health Program Manager Name Role Phone LeroySarahcandy No Primary Care Provider [phone] Reason for Visit * Auth/Cert (Routine) Specialty Diagnoses / Procedures Referred By Contac t Referred To Contact Diagnoses SBP (spontaneous bacterial peritonitis) ([facility]) TrAC- SBP Referral ID Status Reason Start Date Expiration Date Visits Re quested Visits Authorized [id number] 99 [phone] Encounter Details Date Type Department Care Team (Late st Contact Info) Description 04/29/2024 4:21 PM EST Anesthesia Event [facility] Operating Room [address] [place] [address] Grady Riley MD [address] [place] [address] Anesthesia Record Procedure Summary Procedure Name Responsible Anesthesiologist Anesthesia Start Time Anesthesia Stop Time ENDOSCOPIC RETROGRADE CHOLANGIOPANCREATOGR APHY, DIAGNOSTIC WITH POSSIBLE BRUSHING OR WASHING AND POSSIBLE MODERATE SEDATION Grady Riley MD 04/29/24 1621 04/29/24 1825 Events Date Time Event Comment 04/29/2024 1332 1621 An Start 1621 In Room 1621 An Start Data 1629 An Induction The patient was reevaluated immediately before induction of anesthesia. 1633 An Intubation 1634 Anesthesia Ready 1642 Proc Start 1807 Proc Fin 1815 An Extubation 1817 an stop data 1817 Out of Room 1824 Handoff to RN I completed my handoff to the receiving nurse during which we: 1. Identified the patient 2. Identified the responsible provider 3. Reviewed the pertinent medical history 4. Discussed the surgical course 5. Reviewed intra-op anesthesia management and issues during anesthesia 6. Set expectations for post-procedure period 7. Allowed opportunity for questions and acknowledgement of understanding. 1824 An Stop Meds Name Total fentaNYL (SUBLIMAZE) injection 100 mcg ondansetron (ZOFRAN) injection 4 mg dexamethasone (DECADRON) injection 4 mg/ mL 4 mg propofol (DIPRIVAN) bolus 200 mg succinylcholine (ANECTINE) 20 mg/mL inje ction solution 140 mg phenylephrine (JANUARY-SYNEPHRINE) injection 40 mcg piperacillin-tazobactam (ZOSYN) 3.375 g in 0.9% NaCl 100 mL Mini-Bag Plus 3.375 g sodium chloride 0.9% (NS) infusion 250 m L * Agents Name ETO2 (%) Actual Inspired FiO2 (O2%) Set FiO2 (O2%) O2 Flow (L/min) Sevoflurane * Blood No blood administrations on file. Lines, Drains, and Airways Type Details Placement Removal Biliary Tube 04/29/24 (present on admission); 1314; 1; (Pigtail drain); RUQ; Intact 04/29/24 1314 by Ayesha Jack RN Biliary Tube 02/07/24; 1000; [facility]; 1; RMQ 02/07/24 1000 by Mayra Cai RN 05/02/24 1834 by Amy Lipscomb RN Peripheral IV Placement Date: 04/24/24; Placement Time: 1813; Catheter Size: 18 G; Orientation: Left; Location: Antecubital; Removal Date: 04/30/24; Removal Time: 1037 04/24/24 1814 by Andreas Martin RN 04/30/24 1037 by Charla Peres RN Peripheral IV Placement Date: 04/25/24; Placement Time: 1219; Catheter Size: 20 G; Orientation: Anterior, Right; Location: Forearm; Site Prep: Chlorhexidine; Technique: Ultrasound guidance; Inserted by: BIBI Ball RN; Insertion Attempts: 1; Patient Tolerance: Tolerated well; Removal Date: 04/30/24; Removal Time: 1037 04/25/24 1219 by Orin Rodriguez RN 04/30/24 1037 by Charla Peres RN Incision / Procedural Site 04/29/24; 1313; Flank; Left, Lower, Mid; 05/15/24 04/29/24 1313 by Ayesha Jack RN 05/15/24 0000 by Lauri Avendano RN ETT Placement Date 04/29; Placement Time 1631; Mask Ventilation Not attempted; Technique Direct laryngoscopy, Stylet; Cuffed Yes; Laryngoscope Christos; Blade Size 4; Measured from Lips; Secured at (cm) 22 cm; Location Oral; Grade View Grade I; Insertion Attempts 1; Placement Verification Capnometry, Palpation of cuff, Symmetrical chest wall movement; Removal Date 04/29/24; Removal Time 1815 04/29/24 1631 by Dimple Dacosta CRNA 04/29/24 181 by Dimple Dacosta [employer] ENGINEER documented in this encounter Social History Tobacco Use Types Packs/Day Years Used Date Smoking Tobacco: Never Smokeless Tobacco: Never Alcohol Use Standard Drinks/Week Comments Not Currently 8 (1 standard drink = 0.6 oz pur e alcohol) sober since 11/2023 [facility] Utilities Answer Date Recorded In [...] Sign Reading Time Taken Comments Blood Pressure 114/64 04/29/2024 6:16 PM EST Pulse 98 04/29/2024 6:17 PM EST Temperature 36.6 ??C (97.9 ??F) 04/29/2024 4 :47 PM EST forehead strip Respiratory Rate 0 04/29/2024 6:17 PM EST Oxygen Saturation 92% 04/29/2024 6:1 7 PM EST Inhaled Oxygen Concentration - - Weight - - Height - - Body Mass Index - - documented in this encounter OR Notes * Anesthesia Postprocedure Evaluation - Grady Riley MD - 04/29/2024 6:25 PM EST Anesthesia Post-procedure Evaluation Patient: Nate Correa : 1960 Date of Procedure: 04/29/2024 Procedure Summary Date: 04/29/24 Room / Location: [facility] OR 01 / [facility] OR Anesthesia Start: 1620 Anesthesia Stop: 1824 Procedure: ENDOSCOPIC RETROGRADE CHOLANGIOPANCREATOGRAPHY, DIAGNOSTIC WITH POSSIBLE BRUSHING OR WASHING AND POSSIBLE MODERATE SEDATION Diagnosis: Cholecystitis (Cholecystitis [K81.9]) Surgeons: Rachel Murray MD Responsible Provider: Grady Riley MD Anesthesia Type: general ASA Status: 4 - Emergent Anesthesia Type: general Last vitals Vitals Value Taken Time BP 04/29/24 1825 Temp 04/29/24 1825 Pulse 04/29/24 1825 Resp 04/29/24 1825 SpO2 96 % 04/29/24 1823 Vitals shown include unfiled device data. Anesthesia Post Evaluation Patient location during evaluation: PACU Patient participation: complete - patient participated Level of consciousness: awake and sleepy but conscious Pain management: adequate Anesthetic complications: no Nausea and Vomiting: no Cardiovascular status: stable Respiratory status: face mask, spontaneous ventilation and nonlabored ventilation Hydration status: acceptable No notable events documented. Dimple Dacosta CRNA Date: 04/29/2024 Time: 6:25 PM * Anesthesia Preprocedure Evaluation - Jeyson Mcmillan MD - 04/29/2024 1:21 PM EST Images from the original note were not included. Anesthesia Pre-procedure Evaluation Patient: Nate Correa : 1960 Date of Procedure: 04/29/2024 Preoperative Diagnosis: Pre-op Diagnosis * Cholecystitis [K81.9] ENDOSCOPIC RETROGRADE CHOLANGIOPANCREATOGRAPHY, DIAGNOSTIC WITH POSSIBLE BRUSHING OR WASHING AND POSSIBLE MODERATE SEDATION: 30628 (CPT??) Surgeon(s): Rachel Murray MD Past Medical [...] known allergies. Vitals / Weight: Blood pressure 106/62, pulse 91, temperature 36.9 ??C (98.4 ??F), temperature source Oral, resp. rate 20, height 1.803 m (5' 11 ), weight 93 kg (205 lb), SpO2 95%. Recent Labs: Latest Ref Rng & Units 04/17/2024 9:32 AM HgbA1c Hemoglobin A1C <5.7 % of total Hgb 5.3 Latest Ref Rng & Units 04/29/2024 4:30 AM CBC WBC 3.8 - 10.8 10*3/uL 8.7 Hgb 13.2 - 17.1 g/dL 11.9 Hct 38.5 - 50.0 % 34.5 MCV 80.0 - 100.0 fL 92.0 Plts 140 - 400 10*3/uL 93 Latest Ref Rng & Units 04/29/2024 4:30 AM Basic Metabolic Panel Sodium 135 - 145 mmol/L 130 Potassium 3.5 - 5.3 mmol/L 3.9 Chloride 98 - 107 mmol/L 102 Carbon Dioxide 22 - 32 mmol/L 15(LL) Glucose 65 - 99 mg/dL 130 Creatinine 0.60 - 1.30 mg/dL 0.88 Calcium 8.6 - 10.5 mg/dL 8.6 EGFR >=60 mL/min/1.73m2 >90 (LL) Low Critical Recent EKG: Patient's Hospital Problems: Patient Active Problem List Diagnosis Decompensated cirrhosis (HCC) SBP (spontaneous bacterial peritonitis) (HCC) Sepsis (HCC) Cholecystitis Hyperlipidemia Insomnia Moderate protein-calorie malnutrition (CMS/HCC) Hyponatremia Anesthesia Evaluation Patient summary reviewed. Anesthesia History: No history of anesthetic complications Pulmonary Cardiovascular Exercise tolerance: >4 METS (+) hypertension, hyperlipidemia , , , , , , , (-) past IN, dysrhythmias, murmur Neuro/Psych (+) ETOH, alcohol use [...] s/p cholecystostomy tube. With recurrent bacterial peritonitis, now presenting for urgent ERCP. Hemodynamically stable. Lactate normal Pt is 63 y.o. male with a [...] was referred to the transplant clinic [facility]. He continues to have pain and discomfort [...] to auscultation Abdominal Anesthesia Plan ASA 4 - emergent Anesthesia Type: general Underwent paracentesis this morning, (3 prior paracenteses), removed 1.5L Mild abdominal pain at site of cholestostomy [...] since 11/2023, no MJ, no recreational drugs Cr. 0.88, K normal Use of blood products discussed with patient who consented to blood products. Pre-Anesthesia Review by Attending Anesthesiologist: Jeyson Mcmillan MD Date: 04/29/2024 Time: 3:16 PM I have interviewed and examined the patient [...] Info) Description 5 10:30 AM EST Appointment [facility] Interventional Radiology [address] [place] [address] Mike Rey i, MD [address] [place] [address] 5 10:30 AM EDT Appointment [facility] Interventional Radiology [address] [place] [address] Mike Rey i, MD [address] [place] [address] 5 2:00 PM EDT Pre-Admission Testing [facility] Surgical [address] [address] 5 10:00 AM EDT Appointment [facility] Interventional Radiology [address] [place] [address] Mike Rey i, MD [address] [place] [address] 5 10:30 AM EDT Appointment [facility] Interventional Radiology [address] [place] [address] Mike Rey i, MD [address] [place] [address] 5 9:00 AM EDT Pre-Admission Testing [facility] Surgical [address] [address] 5 10:30 AM EDT Appointment [facility] Interventional Radiology [address] [place] [address] Mike Rey i, MD [address] [place] [address] 5 10:30 AM EDT Appointment [facility] Interventional Radiology [address] [place] [address] Mike Rey i, MD [address] [place] [address] 5 8:30 AM EDT Hospital Encounter [facility] Operating Room [address] [place] [address] Rachel Murray MD [address] [place] [phone] 5 8:30 AM EDT - 5 9:30 AM EDT Surgery [facility] Operating Room [address] [place] [address] Rachel Murray MD [address] [place] [id number] ENDOSCOPIC RETROGRADE CHOLANGIOPANCREATOGRAPHY WITH REMOVAL OF FOREIGN BODY(S)/STENT(S)/PANCREATIC DUCT(S) WITH POSSIBLE MODERATE SEDATION [41742 (CPT??)] 5 10:30 AM EDT Appointment [facility] Interventional Radiology [address] [place] [address] Mike Rey i, MD [address] [place] [phone] 5 4:30 PM EDT Follow-Up [facility] Liver Transplant Services [address] [place] [address] Mike Rey i, MD [address] [place] [phone] 5 10:30 AM EDT Appointment [facility] Interventional Radiology [address] [place] [address] Mike Rey i, MD [address] [place] [address] 5 10:30 AM EDT Appointment [facility] Interventional Radiology [address] [place] [address] Mike Rey i, MD [address] [place] [address] 5 10:30 AM EDT Appointment [facility] Interventional Radiology [address] [place] [address] Mike Rey i, MD [address] [place] [phone] 5 10:30 AM EDT Appointment [facility] Interventional Radiology [address] [place] [address] Mike Rey i, MD [address] [place] [address] 5 10:30 AM EDT Appointment [facility] Interventional Radiology [address] [place] [address] Mike Rey i, MD [address] [place] [address] 5 10:30 AM EDT Appointment [facility] Inter[facility] Radiology [address] [place] [address] Mike Rey i, MD [address] [place] [address] 5 10:30 AM EDT Appointment [facility] Interventional Radiology [address] [place] [address] Mike Rey i, MD [address] [place] [phone] 5 10:30 AM EDT Appointment [facility] Interventional Radiology [address] [place] [address] Mike Rey i, MD [address] [place] [address] 5 10:30 AM EDT Appointment [facility] Interventional Radiology [address] [place] [address] Mike Rey i, MD [address] [place] [phone] 5 10:30 AM EDT Appointment [facility] Interventional Radiology [address] [place] [address] Mike Rey i, MD [address] [place] [phone] 5 10:30 AM EDT Appointment [facility] Interventional Radiology [address] [place] [address] Mike Rey i, MD [address] [place] [address] Scheduled Procedures Name Priority Associated Diagnoses Date/Ti [...] MAR Action Action Date Dose Rate Site dexamethasone (DECADRON) injection intravenous, As needed, Starting on Sun04/29/24 at 1640, Until Sun04/29/24 at 1825, Anesthesia Intra-op Given 04/29/2024 4:40 PM EST 4 mg fentaNYL (PF) injection intravenous, As needed, Starting on Sun04/29/24 at 1630, Until Sun04/29/24 at 1825, Anesthesia Intra-op Given 04/29/2024 4:30 PM EST 100 mcg ondansetron (ZOFRAN) injection intravenous, As needed, Starting on Sun04/29/24 at 1640, Until Sun04/29/24 at 1825, Anesthesia Intra-op Given 04/29/2024 4:40 PM EST 4 mg phenylephrine HCl in 0.9% NaCl (JANUARY-SYNEPHRINE) 0.4 mg in 0.9% NaCl 10 mL syringe intravenous, As needed, Starting on Sun04/29/24 at 1633, Until Sun04/29/24 at 1825, Anesthesia Intra-op Given 04/29/2024 4:33 PM EST 40 mcg piperacillin-tazobactam (ZOSYN) 3.375 g in 0.9% NaCl 100 mL Mini-Bag Plus intravenous, Continuous PRN, Starting on Sun04/29/24 at 1634, Until Sun04/29/24 at 1825, Anesthesia Intra-op New Bag/Syringe 04/29/2024 4:34 PM EST 3.375 g propofoL (DIPRIVAN) injection intravenous, As needed, Starting on Sun04/29/24 at 1631, Until Sun04/29/24 at 1825, Anesthesia Intra-op Given 04/29/2024 6:00 PM EST 20 mg Given 04/29/2024 4:33 PM EST 30 mg Given 04/29/2024 4:31 PM EST 150 mg sodium chloride 0.9% (NS) premix infusion intravenous, Continuous PRN, Starting on Sun04/29/24 at 1623, Until Sun04/29/24 at 1825, Anesthesia Intra-op New Bag/Syringe 04/29/2024 4:23 PM EST succinylcholine (ANECTINE) injection intravenous, As needed, Starting on Sun04/29/24 at 1631, Until Sun04/29/24 at 1825, Anesthesia Intra-op Given 04/29/2024 4:31 PM EST 140 mg documented in this encounter Care Teams Public Health Program Manager Relationship Specialty Start Date End Date Po, Jade No [address] [place] [address] [place] [address] PCP - General Internal Medicine 03/06/24 documented as of this encounter
--- OUTSIDE RECORDS SUMMARY | 2024-05-28 11:40 | XMS_ITS | Encounter Summary ---
Author Organization [facility] Address [address] [place] [address] Care Team Providers Care Bobbin Collector Name Role Phone Leroy Jennifervalente No Primary Care Provider [phone] Reason for Visit * Reason Onset Date Comments ABO Dual Validation 05/02/2024 Encounter Details Date Type Department Care Team (Late st Contact Info) Description 05/02/2024 Documentation [facility] Transplant Department [address] [place] [address] Lorie Mahoney RN ABO Dual Validation Social History Tobacco Use Types Packs/Day Years Used Date Smoking Tobacco: Never Smokeless Tobacco: Never Alcohol Use Standard Drinks/Week Comments Not Currently 8 (1 standard drink = 0.6 oz pur e alcohol) sober since 11/2023 [facility] Utilities Answer Date Recorded In the past 12 months has e [employer], gas, oil, or water [employer] threatened to shut off services in your [...] as of this encounter Progress Notes * Lorie Mahoney RN - 05/02/2024 10:55 AM EST I have reviewed ABO results from two different dates and verified that they match. ABO More data may exist 04/11/2024 05/02/2024 TXP ABO ABO Blood Type B B Rh Type Positive Positive documented in this encounter Plan of Treatment Upcoming Encounters Date Type Department Care Team (Latest Contact Info) Description 5 10:30 AM EST Appointment [facility] Interventional Radiology [address] [place] [address] Mike Rey i, MD [address] [place] [phone] 5 10:30 AM EDT Appointment [facility] Interventional Radiology [address] [place] [address] Mike Rey i, MD [address] [place] [address] 5 2:00 PM EDT Pre-Admission Testing [facility] [address] [facility] [address] [place] [address] 5 10:00 AM EDT Appointment [facility] Interventional Radiology [address] [place] [address] Mike Rey i, MD [address] [place] [address] 5 10:30 AM EDT Appointment [facility] Interventional Radiology [address] [place] [address] Mike Rey i, MD [address] [place] [address] 5 9:00 AM EDT Pre-Admission Testing [facility] [address] [address] 5 10:30 AM EDT Appointment [facility] Interventional Radiology [address] [place] [address] Mike Rey i, MD [address] [place] [phone] 5 10:30 AM EDT Appointment [facility] Interventional Radiology [address] [place] [address] Mike Rey i, MD [address] [place] [address] 5 8:30 AM EDT Hospital Encounter [facility] Operating Room [address] [place] [address] Rachel Murray MD [address] [place] [address] 5 8:30 AM EDT - 5 9:30 AM EDT Surgery [facility] Operating Room [address] [place] [address] Rachel Murray MD [address] [place] [address] ENDOSCOPIC RETROGRADE CHOLANGIOPANCREATOGRAPHY WITH REMOVAL OF FOREIGN BODY(S)/STENT(S)/PANCREATIC DUCT(S) WITH POSSIBLE MODERATE SEDATION [64583 (CPT??)] 5 10:30 AM EDT Appointment [facility] Interventional Radiology [address] [place] [address] Mike Rey i, MD [address] [place] [phone] 5 4:30 PM EDT Follow-Up [facility] Liver Transplant Services [address] [place] [address] Mike Rey i, MD [address] [place] [address] 5 10:30 AM EDT Appointment [facility] Interventional Radiology [address] [place] [address] Mike Rey i, MD [address] [place] [address] 5 10:30 AM EDT Appointment [facility] Interventional Radiology [address] [place] [address] Mike Rey i, MD [address] [place] [phone] 5 10:30 AM EDT Appointment [facility] Interventional Radiology [address] [place] [address] Mike Rey i, MD [address] [place] [address] 5 10:30 AM EDT Appointment [facility] Interventional Radiology [address] [place] [address] Mike Rey i, MD [address] [place] [phone] 5 10:30 AM EDT Appointment [facility] Interventional Radiology [address] [place] [address] Mike Rey i, MD [address] [place] [address] 5 10:30 AM EDT Appointment [facility] Interventional Radiology [address] [place] [address] Mike Rey i, MD [address] [place] [phone] 5 10:30 AM EDT Appointment [facility] Interventional Radiology [address] [place] [address] Mike Rey i, MD [address] [place] [phone] 5 10:30 AM EDT Appointment [facility] Interventional Radiology [address] [place] [address] Mike Rey i, MD [address] [place] [phone] 5 10:30 AM EDT Appointment [facility] Interventional Radiology [address] [place] [address] Mike Rey i, MD [address] [place] [address] 5 10:30 AM EDT Appointment [facility] Interventional Radiology [address] [place] [address] Mike Rey i, MD [address] [place] [address] 5 10:30 AM EDT Appointment [facility] Interventional Radiology [address] [place] [address] Mike Rey i, MD [address] [place] [address] Scheduled Procedures Name Priority Associated Diagnoses Date/Ti me ENDOSCOPIC RETROGRADE CHOLANGIOPANCREATOGRAPHY WITH REMOVAL OF FOREIGN BODY(S)/STENT(S)/PANCREATIC DUCT(S) WITH POSSIBLE MODERATE SEDATION Encounter for removal of biliary stent 07/04/2024 8:30 AM EDT LAPAROSCOPIC CHOLECYSTECTOMY Acute cholecystitis documented as of this encounter Visit Diagnoses Not on filedocumented in this encounter Care Teams Bobbin Collector Relationship Specialty Start Date End Date Jade Harper [address] [place] [address] [place] [address] PCP - General Internal Medicine 03/06/24 documented as of this encounter
--- OUTSIDE RECORDS SUMMARY | 2024-05-28 11:40 | XMS_ITS | Encounter Summary ---
Author Organization [facility] Address [address] [place] [address] Care Team Providers Care [employer] Consultant Name Role Phone Leroy Jennifervalente No Primary Care Provider [phone] Reason for Visit * Reason Comments ? SEPSIS * Auth/Cert (Routine) Specialty Diagnoses / Procedures Referred By Contac t Referred To Contact Diagnoses SBP (spontaneous bacterial peritonitis) (FORM[facility]) TrA- SBP Referral ID Status Reason Start Date Expiration Date Visits Re quested Visits Authorized [id number] 99 Encounter Details Date Type Department Care Team (Late st Contact Info) Description 05/02/2024 12:45 PM EST - 05/02/2024 1:45 PM EST Surgery [facility] Operating Room [address] [place] [id number] Rachel Murray MD [address] [place] [address] ENDOSCOPIC RETROGRADE CHOLANGIOPANCREATOGRAP HY, DIAGNOSTIC WITH POSSIBLE BRUSHING OR WASHING AND POSSIBLE MODERATE SEDATION [25863 (CPT??)] Social History Tobacco Use Types Packs/Day Years Used Date Smoking Tobacco: Never Smokeless Tobacco: Never Alcohol Use Standard Drinks/Week Comments Not Currently 8 (1 standard drink = 0.6 oz pur e alcohol) sober since 11/2023 [facility] Utilities Answer Date Recorded In the past [...] Sign Reading Time Taken Comments Blood Pressure 109/65 05/02/2024 12:16 PM EST Pulse 88 05/02/2024 12:16 PM EST Temperature 36.6 ??C (97.9 ??F) 05/02/2024 12:[address] Respiratory Rate 18 05/02/2024 12:16 PM EST Oxygen Saturation 95% 05/02/2024 12:16 PM EST Inhaled Oxygen Concentration - - Weight 93 kg (205 lb) 04/29/2024 12:55 PM EST Height 180.3 cm (5' 11 ) 04/29/2024 12:55 PM EST Body Mass Index 28.59 04/29/2024 12:55 PM EST documented in this encounter Discharge Summaries * Alexei Lepe MD - 05/03/2024 11:58 AM EST Images from the original note were not included. DISCHARGE SUMMARY [facility] DISCHARGE INFORMATION: Date and Time of Admission: 04/24/2024 8:11 PM Date of Discharge: 05/03/24 DISCHARGE DIAGNOSIS: Problem List Active Problems * (Principal) SBP (spontaneous bacterial peritonitis) (HCC) Decompensated cirrhosis (HCC) Hyperlipidemia Hyponatremia Moderate protein-calorie malnutrition (CMS/HCC) Sepsis (HCC) ATTENDING PHYSICIAN ON DISCHARGE: Attending Provider: Delmis Joseph MD [phone] FOLLOW-UPS AND SCHEDULED APPOINTMENTS: Future Appointments Date Time Provider Department Center 07/08/2024 4:30 PM Mike Low MD [facility] CONTACT INFORMATION FOR FOLLOW-UP [address] [address] Next Steps: Follow up PENDING LABS: . Ordered CULTURE, FLUID (Routine ) 04/29/24 0992 DISCHARGE MEDICATIONS: Discharge Medication list: Discharge Medications [...] had a percutaneous drain placed 02/01/24 at [facility]- at the time due to new finding [...] Procedure Laterality Date IR CHOLECYSTOSTOMY TUBE PLACEMENT MS ERCP DX COLLECTION SPECIMEN BRUSHING/WASHING N/A 04/29/2024 Procedure: ENDOSCOPIC RETROGRADE CHOLANGIOPANCREATOGRAPHY, DIAGNOSTIC WITH POSSIBLE BRUSHING OR WASHING AND POSSIBLE MODERATE SEDATION; Surgeon: Rachel Murray MD; Location: [facility] GI OR; Service: Gastroenterology TOE AMPUTATION TOTAL [...] diet. On discharge: - Follow-up with outpatient bond broker, has appointment on 07/08/2024. Encouraged patient to try to schedule for sooner follow-up - Will need ERCP in about 2 months for stent removal and re-attempt at adequate drainage (05/02). Will also need to discuss potential TIPS procedure with outpatient bond broker - Lasix 20 mg daily and spironolactone [...] to obtain the completed interpretation. Workstation ID: [id number] X-Ray Chest 1 View Result Date: 04/26/2024 [...] to obtain the completed interpretation. Workstation ID: [id number] CT 3 Phase Liver Mass With Pelvis [...] to obtain the completed interpretation. Workstation ID: [id number] IR Paracentesis Diagnostic and Therapeutic Result Date: 04/24/2024 Narrative: PROCEDURE: Diagnostic and therapeutic paracentesis. INDICATION: 63 y.o. year old male with alcohol cirrhosis and recurrent ascites. ATTENDING: Dr. Ector Sandy, the Attending physician, [facility] and immediately available for assistance throughout the entire procedure. [place] FORMER: JULIANE Osborne SEDATION: None DURATION: 40 minutes [...] to obtain the completed interpretation. Workstation ID: [id number] ED POCUS Abdominal Single Organ Impression: Exam Information A zdsaf-dh-wgtq ultrasound was performed to assess the anatomy [...] Electronically signed by Tomás Durham MD on [email or web address] ECG 12 lead Impression: NORMAL SINUS RHYTHM [...] to obtain the completed interpretation. Workstation ID: [id number] US Limited Abdomen Single Org Result Date: [...] to obtain the completed interpretation. Workstation ID: [id number] X-Ray Chest 1 View Result Date: 04/11/2024 [...] to obtain the completed interpretation. Workstation ID: [id number] GLOBAL PLAN OF CARE CONSULTS: IP CONSULT [...] as appropriate Nate Correa : 1960 CSN: [id number] Delmis Joseph MD documented in this encounter [...] If you have any questions, please call [facility] at [phone]. Diet: you may resume your low sodium, high protein diet. Activity: you may resume your normal activity level. The following appointments have been made: Future Appointments Date Time Provider Department Center 07/08/2024 4:30 PM Mike Low MD [facility] It is very important that you make [...] as of this encounter Progress Notes * Daamris Enriquez MD - 05/02/2024 7:24 AM EST [...] significant RBC morphology present (ICSH guidelines, 2015). Avalon Cells 2+ (A) Not Present Total Cells [...] Not Present Acanthocytes 2+ (A) Not Present Avalon Cells 2+ (A) Not Present Basic Metabolic [...] Santana IV, MD MS Transplant/General Infectious Disease Retail Merchandising Managersenior cyber intelligence analyst [facility] P: 196 * Damaris Enriquez MD - 04/30/2024 7:33 AM EST Progress Note Subjective CHIEF COMPLAINT: Abdominal discomfort, paracentesis positive for SBP 24 HOUR INTERVAL HISTORY: -NAONE -Paracentesis and ERCP completed yesterday. -Per GI, ERCP completed 04/30 with difficult cannulation. CBD stent placed with plan for transcystic stenting and stent exchange on repeat ERCP. -Nursing noted some blood in stool in am -VSS -Na 133 -WBC 4.3, Hgb 11.4 -TNC/WBC 363, Cx: pending The patient was seen and evaluated at bedside. [place] significantly better after paracentesis and ERCP yesterday [...] 58 % Lymphocytes %, Peritoneal 24 % Bollinger/Macrophage %, Peritoneal 17 % Basophil %, Peritoneal [...] Not Present Acanthocytes 2+ (A) Not Present Avalon Cells 3+ (A) Not Present Total Cells [...] to obtain the completed interpretation. Workstation ID: [id number] Assessment & Plan Principal Problem: SBP (spontaneous [...] data and culture results from previous years. 12.0 / 10.9 ------ 111 / 35.3 133 I 101 [...] Sanchez MD Fellow, PGY4 Infectious Diseases Pager [phone] 04/28/2024 6:56 PM Nate Correa : 1960 CSN: [id number] Cosigned by Farhad Santana IV, MD at 04/29/2024 8:24 AM EST Associated attestation - Farhad Santana IV, MD - 04/29/2024 8:24 AM EST I saw and evaluated the patient. Case discussed with the resident/fellow and I agree with the findings and plan as documented in the resident's/fellow's note. Farhad Santana IV, MD MS Transplant/General Infectious Disease Retail Merchandising Managersenior cyber intelligence analyst [facility] Dish Carrier [facility] P: 1961 * Damaris Enriquez MD - 04/28/2024 8:52 [...] to obtain the completed interpretation. Workstation ID: [id number] Assessment & Plan Principal Problem: SBP (spontaneous [...] He is upset that he is stooling watery stool and does not want to take lactulose. [...] guidelines, 2015). Acanthocytes 2+ (A) Not Present Avalon Cells 2+ (A) Not Present Imaging/Other Studies [...] to obtain the completed interpretation. Workstation ID: [id number] IR Paracentesis Diagnostic and Therapeutic Result Date: [...] for stent exchange in cystic duct 2/7 Sepsis (HCC) Sepsis with WBC 21, tachycardia, [...] with multiple hospitalizations and the length of time to complete workup and becomes safe to discharge. [place] cold and wanted another warm blanket. Has [...] 66 % Lymphocytes %, Peritoneal 20 % Bollinger/Macrophage %, Peritoneal 14 % Differential Cells Counted, [...] Dark Yellow Clarity, Urine Clear Clear Specific Adrian, Urine 1.029 1.005 - 1.030 pH, Urine [...] for stent exchange in cystic duct 05/02 Decompensated cirrhosis (HCC) Home meds: ciprofloxacin 500mg [...] have occurred. Nate Correa : 1960 CSN: [id number] Source Note - Mike Low MD - 04/24/2024 11:00 AM EST [facility]ANS[facility] HEPATOLOGY CLINIC NOTE PRIMARY CARE PROVIDER: Jade Harper LOCAL PODIATRIC MEDICINE DOCTOR: Dr. Harper Patient Name: Nate Correa : [...] total) by mouth every 24 hours. 30 furosemide (LASIX) 20 mg tablet Take 1 [...] have occurred. Nate Correa : 1960 CSN: [id number] Source Note - Evin Reno MD - [...] had a percutaneous drain placed 02/01/24 at [facility]- at the time due to new finding [...] Days Peripheral IV 04/24/24 Ultrasound-Guided Left Antecubital 04/24/24 1814 Antecubital less than 1 , Active Drains [...] using one or more reliable source(s). Signature: Evni Reno MD PGY-3 Electronic Signature Cosigned by [...] had a percutaneous drain placed 02/01/24 at [facility]- at the time due to new finding [...] Days Peripheral IV 04/24/24 Ultrasound-Guided Left Antecubital 04/24/24 1814 Antecubital less than 1 , Active Drains [...] 1:19 PM ESTAssociated Order(s): ENDOSCOPIC RETROGRADE CHOLANGIOPANCREATOGRAPHY [facility] Gastroenterology Patient Name: Nate Correa Procedure Date: 05/02/2024 1:19 PM Date of : 1960 Admit Type: Inpatient Age: 63 Room: [place] [address] Gender: Male Note Status: Finalized Attending MD: [...] stent and PCT were visible on the classified advertising clerk film. The esophagus was successfully intubated under [...] 3:18 PM ESTAssociated Order(s): ENDOSCOPIC RETROGRADE CHOLANGIOPANCREATOGRAPHY [facility] Gastroenterology Patient Name: Nate Correa Procedure Date: 04/29/2024 3:18 PM Date of : 1960 Admit Type: Inpatient Age: 63 Room: [place] [address] Gender: Male Note Status: Finalized Attending MD: [...] by the physician, the nurse and the voice network administrator in the pre-procedure area in the endoscopy [...] was 589 seconds (604.5 mGy). Findings: A classified advertising clerk film of the abdomen was obtained. Percutaneous [...] Patient's understanding of procedure matches consent: Yes Faber Protocol: Procedure consent matches procedure scheduled: Yes [...] on US. Nate Correa : 1960 CSN: [id number] Cosigned by Delmis Joseph MD at 04/29/2024 [...] male pmh HTN, HLD, recent admission at [facility] for cholecystitis in January 2024 s/p sahy tube. At that time he was also [...] Procedure Laterality Date IR CHOLECYSTOSTOMY TUBE PLACEMENT MS ERCP DX COLLECTION SPECIMEN BRUSHING/WASHING N/A 04/29/2024 Procedure: ENDOSCOPIC RETROGRADE CHOLANGIOPANCREATOGRAPHY, DIAGNOSTIC WITH POSSIBLE BRUSHING OR WASHING AND POSSIBLE MODERATE SEDATION; Surgeon: Rachel Murray MD; Location: [facility] GI OR; Service: Gastroenterology TOE AMPUTATION TOTAL [...] flush 2.5-10 mL, 2.5-10 mL, intravenous, q12h THOMASaRchel MD, 10 mL at 04/30/24 0913 sodium chloride 0.9% flush 3-10 mL, 3-10 mL, intravenous, FlushRachel MD Allergies: Patient has no known allergies. [...] stenting with goal to remove cholecystostomy tube which should in turn decrease his risk for recurrent [...] with the referring provider and team by [employer] secure chat and over the phone: Cosigned by Malcolm Johnson MD at 05/27/2024 10:35 AM EST Associated attestation - Malcolm Johnson MD - 05/27/2024 10:35 AM EST COMPOUND COATING MACHINE OFFBEARER/PA note reviewed. Agree with above findings, assessment, and plan * Xiomara Schmid MD - 04/25/2024 10:12 AM ESTAssociated Order(s): IP CONSULT TO INFECTIOUS DISEASE - TRANSPLANT Transplant Infectious Disease Consult Date of admission: 04/24/2024 5:35 PM Consult requested by: Attending Provider: Natalio Lara MD [phone] Reason for consult: Recurrent secondary bacterial peritonitis [...] had a percutaneous drain placed 02/01/24 at [facility]. He was not a candidate for cholecystectomy due to new finding of liver cirrhosis and transaminitis. He then developed a clogged percutaneous cholecystostomy drain and developed secondary bacterial peritonitis with Klebsiella pneumoniae resistant only to ampicillin. Patient admitted at [facility] 04/11-04/19 for treatment and discharged with 3 [...] q8h THOMAS piperacillin-tazobactam, 3.375 g, intravenous, q8h THOAMS rifAXIMin, 550 mg, oral, q12h THOMAS rifAXIMin, [...] care was discussed with the primary hospital steam finisher - Dr. Zoe HAMMOND. Thank you for this consultation. Please don't hesitate to call the Transplant ID team for questionsor any acute changes in patient's clinical condition. Xiomara Schmid MD PGY-1 Transplant Infectious Diseases Nate Correa : 1960 CSN: [id number] Cosigned by Farhad Santana IV, MD at [...] Santana IV, MD MS Transplant/General Infectious Disease Retail Merchandising Managersenior cyber intelligence analyst [facility] Dish Carrier [facility] P: 1961 documented in this encounter ED Notes * [...] 1000+ [RS] ED Course User Index [RS] Dana Samuels MD Nate Correa : 1960 CSN: [id number] Prieto Mclain MD Resident 04/25/24 1554 Cosigned [...] by me. Nate Correa : 1960 CSN: [id number] documented in this encounter Miscellaneous Notes * Plan of Care - Anny Reis RN - 05/03/2024 12:08 PM EST Case Management Discharge note: Pertinent Clinical and medical clearance : Pt discussed with Dr. Hilario Lepe. Pt med ready to discharge. MD spoke to spouse, she is in agreement with discharge plan. He will have VNA services with [facility], SN, PT. put in for OT eval but pt refused. CM will fax order to them and have asked them to call spouse to come see him because pt often does not answer his phone if in pain, etc. She will provide transportation home this afternoon. Final Discharge Plan: Home with outpatient follow up and [facility] for SN,PT. Transportation home by spouse. [...] however pt continued to declined. Team notified. MIRZA Lucero, OTR/L [place] License #[id number] * Hospital Course - Alexei Lepe MD [...] diet. On discharge: - Follow-up with outpatient bond broker, has appointment on 07/08/2024. Encouraged patient to try to schedule for sooner follow-up - Will need ERCP in about 2 months for stent removal and re-attempt at adequate drainage (05/02). Will also need to discuss potential TIPS procedure with outpatient bond broker - Lasix 20 mg daily and spironolactone [...] 04/18 about 5L, and day of admission), 2/4 1.6 L removed although noted to be [...] as appropriate) Assumed care of pt from [id number]. Pt A+O, VSS, on RA. Pt ambulates SBA with walker OOB to void, continent. Pt refused am Lasix and Lactulose, aware. bedside in am, concerned about him going home and being alone d/t his changing mental status from not continuously taking his meds, case resource manager and provider aware. Pt was off the [...] Zosyn (D1: 04/24-04/27) - Continue ceftriaxone (D1: 2/3-), 7-10 day course total and through procedures [...] care update, if indicated :met with in hallway and she has concerns about patient going home / he has encephalopathy and thinks he will dc home and snow blow tomorrow after snow comes. 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 Await OT to clear for dc home with and [facility] Discharge Planning:home vs rehab Discharge Barrier: [...] RN - 05/02/2024 6:59 AM EST During weight shifter, patient is a&ox4, RR even and unlabored [...] has cleared PT this AM for home. CM met with pt at bedside. He was not happy with VNA and does not necessarily want them back in home. CM spoke to spouse. She would like her [...] signed off. He can resume SN/PT with [facility] at home. Referral placed, they are following.When discharging, CM can fax order: [facility] (F) [phone]. CM told spouse, Sana, that pt would likely discharge after stent placement tomorrow and she hopes pt can stay another day to be sure stent is ok, and go home on Sunday. Message sent to team via secure chat. Discharge Planning: Discharge Barrier: medical stability Discharge Plan: home with [facility] for SN,PT. Spouse to transport. Choice [...] ERCP * Plan of Care - Moy Tang, PT - 05/01/2024 10:48 AM EST Images [...] had a percutaneous drain placed 02/01/24 at [facility]- at the time due to new finding [...] with railing, independent with ADL/iADLs. PT consulted 2/5 Up as tolerated Patient Active Problem List Diagnosis Decompensated cirrhosis (HCC) SBP (spontaneous bacterial peritonitis) (HCC) Sepsis (HCC) Cholecystitis Hyperlipidemia Insomnia Moderate protein-calorie malnutrition (CMS/HCC) Hyponatremia Past Medical History: Diagnosis Date ALC (alcoholic liver cirrhosis) (CMS/HCC) (HCC) Alcoholism (CMS/HCC) (HCC) sober since 11/2023 Hyperlipidemia Hypertension Prediabetes Past Surgical History: Procedure Laterality Date IR CHOLECYSTOSTOMY TUBE PLACEMENT MS ERCP DX COLLECTION SPECIMEN BRUSHING/WASHING N/A 04/29/2024 Procedure: ENDOSCOPIC RETROGRADE CHOLANGIOPANCREATOGRAPHY, DIAGNOSTIC WITH POSSIBLE BRUSHING OR WASHING AND POSSIBLE MODERATE SEDATION; Surgeon: Rachel Murray MD; Location: [facility] GI OR; Service: Gastroenterology TOE AMPUTATION TOTAL KNEE ARTHROPLASTY Left Vitals Default Flowsheet Data (Last 12 Hours) Adult PT Evaluation/Treatment Row Name 05/01/24 0950 General Information Patient Profile Review yes General Observations of Patient Pre/post rx: patient semi supine in bed, PIV RUE, biliary tube RUQ,call gaston within reach, all needs met Precautions/Restrictions fall;safety Row Name 05/01/24 0950 Time Broker Services Time Broker Needed No Row Name 05/01/24 0950 Living Environment Lives With spouse Living Arrangements [...] Shower/Tub grab bar;shower chair Row Name 05/01/24 0944 Functional Level Prior Bed Mobility independent Transferring [...] Pt splits household responsibilities with . 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 Row Name 05/01/24 0987 Hearing Hearing Status WFL Row Name 05/01/24 0950 Vision Assessment/Intervention Visual Impairment/Limitations WFL Row Name 05/01/24 0950 Cognitive Assessment/Intervention Attention (Cognitive) WNL/WFL Behavior/Mood Observations (Cognitive) alert;agitated Follows Commands/Answers Questions (Cognitive) 100% of the time;able to follow multi-step instructions;able to follow single-step instructions Personal Safety (Cognitive) decreased insight to deficits Short/Creative Services Director Memory (Cognitive) short term memory intact;mcc memory intact Orientation Status (Cognitive) oriented x [...] Name 05/01/24 0950 Bed Mobility Assessment/Treatment Scoot/Bridge Jenkins (Bed Mobility) independent Axzljb-cs-Efx Jenkins (Bed Mobility) independent Ida-we-Uhllpo Jenkins (Bed Mobility) independent Row Name 05/01/24949 Transfer Assessment/Treatment Sit-Stand Jenkins level (Transfers) supervision required Stand-Sit Jenkins level(Transfers) supervision required Xxy-Gupqa-Xda Assistive Device (Transfers) gait belt;walker, rolling Row Name 05/01/24949 Gait Assessment/Treatment Jenkins (Gait) supervision required Assistive Device (Gait) gait belt;walker, rolling Distance in Feet (Gait) 100 x2 Gait Pattern Analysis swing-through gait Gait Deviations gilda, decreased;step length, decreased Comment (Gait) Safely able to ambulate with RW, observed to pick walker up while turning, requiringVC to correct. No overt LOB noted Row Name 05/01/2441 Stairs Assessment/Treatment Number of Stairs (Stairs) 6 Handrail Location (Stairs) right side (ascending) Jenkins (Stairs) modified independence;supervision required Assistive Device (Stairs) gait belt;handrail Technique (Stairs) nedi-mahp-yllb (ascending);side-stepping Comment (Stairs) Side stepping while descending Row Name 05/01/2450 AM-PAC AM-PAC With Stairs Row Name 05/01/2484 IP AM-PAC Basic Mobility '6 Clicks'(With Stairs) Turning in Bed Without Bedrails 3 Lying on Back to Sitting on Edge of Flat Bed 3 Moving Bed to Chair 3 Standing Up from Chair 3 Walk in Room 3 Climbs 3-5 Steps 3 IP Mobility Raw Score 18 CMS 0-100% Score 46.58 % [facility] G Code Modifier:Current status (G8978) CK Standardized T-Scale Score 43.63 Row Name 05/01/2462 Clinical Impression Patient/Family Goals Statement I want to get out of here Criteria for Skilled Therapeutic Interventions Met no problems identified which require skilled intervention Therapy Frequency N/A PT Anticipated Equipment Needs at Discharge (none) PT Anticipated Discharge Disposition home;home with family PT - OK to Discharge ? Yes Row Name 05/01/2495 Plan of Care Review Plan of Care Reviewed With patient Row Name 05/01/2432 Discharge Summary Reason for Discharge no further needs identified Row Name 05/01/2485 PT Eval/ Treat- Additional Details Document Type Initial Evaluation;Discharge evaluation/summary PT Date of Initial Eval/Re-Eval 05/01/24 PT Ordered Same Day as RADHA? No PT Treatment Received On 05/01/24 Patient Effort good Symptoms Noted During/After Treatment none PT Goal Summary (all recorded) PT Rehab Goal Summary No documentation. Moy Tang PT Licensure: PT, [place]: [id number] * Plan of Care - Bridget Dumont [...] Procedure Laterality Date IR CHOLECYSTOSTOMY TUBE PLACEMENT MS ERCP DX COLLECTION SPECIMEN BRUSHING/WASHING N/A 04/29/2024 Procedure: ENDOSCOPIC RETROGRADE CHOLANGIOPANCREATOGRAPHY, DIAGNOSTIC WITH POSSIBLE BRUSHING OR WASHING AND POSSIBLE MODERATE SEDATION; Surgeon: Rachel Murray MD; Location: [facility] GI OR; Service: Gastroenterology TOE AMPUTATION TOTAL [...] reports ongoing poor PO intake in-house and CULTURIST. Pt has been trying to prioritize protein intake, enjoys french yogurt, eggs. Pt's has been making him smoothies at home w/ protein powder. Pt endorses ongoing early satiety. XQA=634#, pt reports weighing this 3-4 months ago, [...] Cups) butpt declines today. Pt asked this consumer loan underwriter to call to see if she had [...] Edema: 1+ bilat leg/ankle/foot MST Score= 5 Cultural/orthodoxy/ethnic preferences addressed as able. Nutrition Diagnosis: Chronic [...] - stated) Estimated Needs: Energy Calorie Requirements: 0889-3804 kcal (22-25 kcal/kg) Protein (gms/day): 114-142 g (1.2-1.5 g/kg) Fluid Requirements: per team Monitor/Evaluation: Food Intake: meet nutrition needs via PO intake Electrolyte/Renal Profile: WNL Glucose/Endocrine Profile: WNL Gastrointestinal Profile: Bowel regularity. No N, V, diarrhea, constipation Weight: Stable Nutrition-Focused Physical Findings: monitor for changes in skin integrity See flowsheets for additional information. Bridget Dumont MS, RD, LDN Nate Correa : 1960 CSN: [id number] Cosigned by Delmis Joseph MD at 05/01/2024 [...] course * Plan of Care - Marybel Owens - 04/28/2024 3:41 PM EST Case Management [...] 05/02 * Assessment & Plan Note - Alexie Lepe MD - 04/27/2024 4:12 PM ESTAssociated [...] Marybel Owens - 04/25/2024 10:43 AM EST CM/ANA High Risk Patient Screen Summary Default Flowsheet [...] Acute rehab she would like [facility] in [place], For [facility], [facility] or [facility]. Supports, HCP, Designated Caregiver, Guardian: Sana Correa, Spouse/HCP Initial Discharge Planning: Dispo TBD Choice list (with star ratings) provided / discussed, if indicated (Y or NA):NA ADD: Sana left a message w/nursing asking CM to call back. CM called and spoke w/Sana on the phone. After speaking w/her family, she requested referrals for Acute Rehab or SNF be placed in [facility] so he would be close to [facility] if he needed hospitalization. CM reviewed area Acute rehabs. Sana agrees w/referrals to [facility] or [facility]. If PT recommends SNF then CM will review [facility] rehab centers. * Assessment & Plan [...] diet * Assessment & Plan Note - Evin [...] 4:21 PM EST [facility] NOTIFICATION 04/24/2024 16:21 NATE CORREA : 1960 [facility]'s patient encounter information: MRN:?[id number] Account Number:?[id number] Billing Account Number:?[id number] Criteria Met History of Sepsis Dx Traveling [...] E.D. Visit Count (12 mo.) Facility Visits [facility] 2 [facility] 1 [facility] 1 Total 4 Note: Visits indicate total known visits. Recent Emergency Department Visit Summary Date Facility [facility] State Type Diagnoses or Chief Complaint Apr 24, 2024 [facility] MD Emergency TrAC- SBP Apr 11, 2024 [facility] Emergency Hypotension, unspecified [facility]otension [facility] 1. Calculus of gallbladder with acute and chronic cholecystitis without obstruction 2. Other ascites 3. Encounter for screening for COVID-19 4. Tachycardia, unspecified 5. Localized enlarged lymph nodes 6. Portal hypertension 7. Splenomegaly, not elsewhere classified 99. Unspecified abdominal pain 99. Unspecified cirrhosis of liver 99. Fever, unspecified Jan 29, 2024 Lambrookshravan Varela [place] Emergency Chief Complaint: gallstones/sent by PCP Recent Inpatient Visit Summary Date [facility] Type Diagnoses or Chief Complaint Apr 11, 2024 [facility] Inpatient Unspecified cirrhosis of liver Hepatic failure, unspecified without coma Spontaneous bacterial peritonitis Hypotension, unspecified Jan 29, 2024 Lambrookshravan Varela MA Medical Surgical Right upper quadrant pain Calculus of gallbladder without cholecystitis with obstruction Calculus of gallbladder without cholecystitis without obstruction Alcoholic cirrhosis of liver with ascites Acute cholecystitis Care Team Provider Specialty Phone Fax Service Dates PO, MD JADE Internal Medicine [facility] This patient has registered at the [facility] Emergency Department For more information visit: [email or web address] PLEASE NOTE: 1. Any care recommendations and other clinical information are provided as guidelines or for historical purposes only, and providers should exercise their own clinical judgment when providing care. 2. You may only use this information for purposes of treatment, payment or health care operations activities, and subject to the limitations of applicable [employer] Policies. 3. You should consult directly with the organization that provided a care guideline or other clinical history with any questions about additional information or accuracy or completeness of information provided. ? 2024 [employer] documented in this encounter Plan of Treatment Upcoming Encounters Date Type Department Care Team (Latest Contact Info) Description 5 10:30 AM EST Appointment [facility] Interventional Radiology [address] [place] [address] [phone] Mike Rey i, MD [address] [place] [address] [phone] 5 10:30 AM EDT Appointment [facility] Interventional Radiology [address] [place] [address] [phone] Mike Rey i, MD [address] [place] [address] [phone] 5 2:00 PM EDT Pre-Admission Testing [facility] Pre Surgical Center [address] [place] [address] [phone] 5 10:00 AM EDT Appointment [facility] Interventional Radiology [address] [place] [address] [phone] Mike Rey i, MD [address] [place] [address] [phone] 5 10:30 AM EDT Appointment [facility] Interventional Radiology [address] [place] [address] [phone] Mike Rey i, MD [address] [place] [address] 5 9:00 AM EDT Pre-Admission Testing [facility] [address] [facility] 3rd [place] [address] 5 10:30 AM EDT Appointment [facility] Interventional Radiology [address] [place] [address] [phone] Mike Rey i, MD [address] [place] [address] 5 10:30 AM EDT Appointment [facility] Interventional Radiology [address] [place] [address] [phone] Mike Rey i, MD [address] [place] [address] [phone] 5 8:30 AM EDT Hospital Encounter [facility] Operating Room [address] [place] [address] Rachel Murray MD [address] [place] [address] [phone] 5 8:30 AM EDT - 5 9:30 AM EDT Surgery [facility] Operating Room [address] [place] [address] Rachel Murray MD [address] [place] [address] [phone] ENDOSCOPIC RETROGRADE CHOLANGIOPANCREATOGRAPHY WITH REMOVAL OF FOREIGN BODY(S)/STENT(S)/PANCREATIC DUCT(S) WITH POSSIBLE MODERATE SEDATION [63171 (CPT??)] 5 10:30 AM EDT Appointment [facility] Interventional Radiology [address] [place] [address] [phone] Mike Rey i, MD [address] [place] [address] [phone] 5 4:30 PM EDT Follow-Up [facility] Liver Transplant Services [address] [place] [address] [phone] Mike Rey i, MD [address] [place] [address] [phone] 5 10:30 AM EDT Appointment [facility] Interventional Radiology [address] [place] [address] [phone] Mike Rey i, MD [address] [place] [address] [phone] 5 10:30 AM EDT Appointment [facility] Interventional Radiology [address] [place] [address] [phone] Mike Rey i, MD [address] [place] [address] [phone] 5 10:30 AM EDT Appointment [facility] Interventional Radiology [address] [place] [address] [phone] Mike Rey i, MD [address] [place] [address] [phone] 5 10:30 AM EDT Appointment [facility] Interventional Radiology [address] [place] [address] 71625 Mike Rey i, MD [address] [place] [address] [phone] 5 10:30 AM EDT Appointment [facility] Interventional Radiology [address] [place] [address] [phone] Mike Rey i, MD [address] [place] [address] [phone] 5 10:30 AM EDT Appointment [facility] Interventional Radiology [address] [place] [address] [phone] Mike Rey i, MD [address] [place] [address] [phone] 5 10:30 AM EDT Appointment [facility] Interventional Radiology [address] [place] [address] [phone] Mike Rey i, MD [address] [place] [address] [phone] 5 10:30 AM EDT Appointment [facility] Interventional Radiology [address] [place] [address] [phone] Mike Rey i, MD [address] [place] [address] [phone] 5 10:30 AM EDT Appointment [facility] Interventional Radiology [address] [place] [address] [phone] Mike Rey i, MD [address] [place] [address] [phone] 5 10:30 AM EDT Appointment [facility] Interventional Radiology [address] [place] [address] [phone] Mike Rey i, MD [address] [place] [address] [phone] 10:30 AM EDT Appointment [facility] Interventional Radiology [address] [place] [address] Mike Rey i, MD [address] [place] [address] [phone] Scheduled Orders Name Type Priority Associated Diagnoses [...] of this encounter Procedures * Due to [place] state law, this organization might not be [...] NON-REPORTABLE Routine 05/02/2024 4:31 PM EST Cholecystitis MS ERCP DX COLLECTION SPECIM EN BRUSHING/WASHING 05/02/2024 [...] NON-REPORTABLE Routine 04/29/2024 5:59 PM EST Cholecystitis MS ABDOM PARACENTESIS DX/THE R W IMAGING GUIDANCE [...] in this encounter Results * Due to [place] state law, this organization might not be sharing negative HIV tests. * (ABNORMAL) Hepatic function panel (05/03/2024 3:18 AM EST) Total Protein 6.1 6.0 - 8.0 g/dL 05/03/2024 4:12 AM EST [facility] Albumin 3.0(L) 3.5 - 5.2 g/dL 05/03/2024 4:12 AM EST [facility] Globulin, Total 3.1 2.1 - 4.2 g/dL 05/03/2024 4:12 AM EST [employer] - [employer] [facility] Bilirubin, Total 2.4(H) 0.2 - 1.2 mg/dL 05/03/2024 4:12 AM EST [facility] Bilirubin, Direct 1.4(H) <=0.4 mg/dL 05/03/2024 4:12 AM EST [facility] Alkaline Phosphatase 181(H) 35 - 129 U/L 05/03/2024 4:12 AM EST [facility] AST 69(H) 10 - 40 U/L 05/03/2024 4:12 AM EST [facility] ALT 47(H) 10 - 40 U/L 05/03/2024 4:12 AM EST [facility] Bilirubin, Indirect 1.00(H) <=0.70 mg/dL 05/03/2024 4:12 AM EST [facility] A/G Ratio 1.0(L) 1.5 - 3.0 05/03/2024 4:12 AM EST [employer] [facility] Blood Structure of peripheral vein / Unknown Venipuncture / Unknown 05/03/2024 3:18 AM EST 05/03/2024 3:41 AM EST us Rachel Murray MD LAB BLOOD ORDERABLES Final Resul t [facility] [address] [place] [address], * (ABNORMAL) Protime-INR (05/03/2024 3:18 AM EST) PT 16.5(H) 9.6 - 12.4 Seconds 05/03/2024 4:00 AM EST [facility] INR 1.5 0.9 - 1.1 05/03/2024 4:00 AM EST [facility] Comment:The optimal therapeu tic INR range for patients treated with Vitamin K antagonists (VKAS, e.g., Warfarin) is 2.0 to 3.5. Discuss the desired range with your doctor/care team. Blood Structure of peripheral vein / Unknown Venipuncture / Unknown 05/03/2024 3:18 AM EST 05/03/2024 3:41 AM EST us Rachel Murray MD LAB BLOOD ORDERABLES Final Resul t [employer] [facility]ORY [address] [place] [address], * (ABNORMAL) CBC Auto Differential (05/03/2024 3:18 AM EST) WBC 4.3 3.8 - 10.8 10*3/uL 05/03/2024 4:26 AM EST [facility] RBC 3.68(L) 4.20 - 5.80 10*6/uL 05/03/2024 4:26 AM EST [employer] [facility] Hemoglobin 11.6(L) 13.2 - 17.1 g/dL 05/03/2024 4:26 AM EST [facility] Hematocrit 34.7(L) 38.5 - 50.0 % 05/03/2024 4:26 AM EST [facility] MCV 94.3 80.0 - 100.0 fL 05/03/2024 4:26 AM EST [facility] MCH 31.5 27.0 - 33.0 pg 05/03/2024 4:26 AM EST [facility] MCHC 33.4 32.0 - 36.0 g/dL 05/03/2024 4:26 AM EST [facility] RDW 17.0(H) 11.0 - 15.0 % 05/03/2024 4:26 AM EST [facility] Platelets 86(L) 140 - 400 10*3/uL 05/03/2024 4:26 AM EST [facility] MPV 10.6 7.5 - 12.5 fL 05/03/2024 4:26 AM EST [facility] Neutrophil % 62.6 % 05/03/2024 4:26 AM EST [facility] Immature Grans % 0.5 0.0 - 0.9 % 05/03/2024 4:26 AM EST [facility] Lymphocyte % 15.3 % 05/03/2024 4:26 AM EST [facility] Monocyte % 19.5 % 05/03/2024 4:26 AM EST [facility] Eosinophil % 1.6 % 05/03/2024 4:26 AM EST [facility] Basophil % 0.5 % 05/03/2024 4:26 AM EST [facility] Neutrophil # 2.69 1.50 - 7.80 10*3/uL 05/03/2024 4:26 AM EST [facility] Immature Grans # <0.03 <=0.03 10*3/uL 05/03/2024 4:26 AM EST [facility] Lymphocyte # 0.70(L) 0.85 - 3.90 10*3/uL 05/03/2024 4:26 AM EST [facility] Monocyte # 0.80 0.20 - 0.95 10*3/uL 05/03/2024 4:26 AM EST [facility] Eosinophil # 0.10 0.02 - 0.50 10*3/uL 05/03/2024 4:26 AM EST [facility] Basophil # <0.03 0.00 - 0.20 10*3/uL 05/03/2024 4:26 AM EST [employer]RI[facility] - [facility] nRBC % 0.0 /100 WBCs 05/03/2024 4:26 AM EST [facility] nRBC # <0.01 <0.01 10*3/uL 05/03/2024 4:26 AM EST [facility] Blood Structure of peripheral vein / Unknown Venipuncture / Unknown 05/03/2024 3:18 AM EST 05/03/2024 3:41 AM EST us Rachel Murray MD LAB BLOOD ORDERABLES Final Resul t Performing Organization Address City/[facility]/ZIP Co de Phone Number SI[employer] - [employer] Business [employer] [facility] [address] [place] [address], * Magnesium (05/03/2024 3:18 AM EST) MG 1.8 1.6 - 2.4 mg/dL 05/03/2024 4:12 AM EST [facility] Blood Structure of peripheral vein / Unknown Venipuncture / Unknown 05/03/2024 3:18 AM EST 05/03/2024 3:41 AM EST Rachel Murray MD LAB BLOOD ORDERABLES Final Resul t Performing Organization Address City/[facility]/ZIP Co de Phone Number [facility] [address] [place] [address], * (ABNORMAL) Basic Metabolic Panel (05/03/2024 3:18 AM EST) NA 135 135 - 145 mmol/L 05/03/2024 4:12 AM EST [facility] K 3.7 3.5 - 5.3 mmol/L 05/03/2024 4:12 AM EST [facility] Cl 105 98 - 107 mmol/L 05/03/2024 4:12 AM EST [facility] CO2 21(L) 22 - 32 mmol/L 05/03/2024 4:12 AM EST [facility] BUN 14 7 - 23 mg/dL 05/03/2024 4:12 AM EST [facility] Creatinine 0.60 0.60 - 1.30 mg/dL 05/03/2024 4:12 AM EST [facility] Glucose 113(H) 65 - 99 mg/dL 05/03/2024 4:12 AM EST [facility] Calcium 8.2(L) 8.6 - 10.5 mg/dL 05/03/2024 4:12 AM EST [facility] Anion Gap 9 5 - 15 05/03/2024 4:12 AM EST [facility] eGFR >90 >=60 mL/min/1. 73m2 05/03/2024 4:12 AM EST [facility] Comment:The estimated glomer ular [...] MD LAB BLOOD ORDERABLES Final Resul t [facility] [employer] Business [facility] [address] [place] [address], [place] * [place] C-Arm ERCP in [place] [...] - Final [facility] [address] [place] [address], [place] [phone] * (ABNORMAL) Manual Differential (05/02/2024 4:11 AM [...] - 7.80 10*3/uL 05/02/2024 5:24 AM EST [facility] Bands #,Manual 0.04 10*3/uL 05/02/2024 5:24 AM EST [facility] Total Lymph #, Manual 0.37(L) 0.85 - 3.90 10*3/uL 05/02/2024 5:24 AM EST [facility]Fan[facility]UN[facility] - [facility] Monocyte #, Manual 0.16(L) 0.20 - 0.95 10*3/uL 05/02/2024 5:24 AM EST [facility] Eosinophil #, Manual 0.00(L) 0.02 - 0.50 10*3/uL 05/02/2024 5:24 AM EST [facility] Basophil #, Manual 0.00 0.00 - 0.20 10*3/uL 05/02/2024 5:24 AM EST [facility] - [facility] Platelet Estimate Decrease d(A) Adequate 05/02/2024 5:24 AM EST [facility] - [facility] RBC Morphology Present( A) Normal, No clinically significant RBC morphology present (ICSH guidelines, 2015). 05/02/2024 5:24 AM EST [facility] - [facility] Avalon Cells 2+(A) Not Present 05/02/2024 5:24 AM EST [facility] - [facility] Total Cells Counted 115 05/02/2024 5:24 AM EST [facility]FanH[facility]DUN[facility] Blood Structure of peripheral vein / Unknown Venipuncture / Unknown 05/02/2024 4:11 AM EST 05/02/2024 4:30 AM EST us Rachel Murray MD LAB BLOOD ORDERABLES Final Resul t [facility] LAB[facility] [address] [place] [address], [place] * (ABNORMAL) CBC Auto Differential (05/02/2024 4:11 AM EST) WBC 4.1 3.8 - 10.8 10*3/uL 05/02/2024 5:24 AM EST [facility] RBC 3.57(L) 4.20 - 5.80 10*6/uL 05/02/2024 5:24 AM EST [employer] [facility] Hemoglobin 11.3(L) 13.2 - 17.1 g/dL 05/02/2024 5:24 AM EST [facility] Hematocrit 32.6(L) 38.5 - 50.0 % 05/02/2024 5:24 AM EST [employer] [facility] MCV 91.3 80.0 - 100.0 fL 05/02/2024 5:24 AM EST [facility] MCH 31.7 27.0 - 33.0 pg 05/02/2024 5:24 AM EST [employer] [facility] MCHC 34.7 32.0 - 36.0 g/dL 05/02/2024 5:24 AM EST [facility] RDW 16.6(H) 11.0 - 15.0 % 05/02/2024 5:24 AM EST [employer] [facility] Platelets 80(L) 140 - 400 10*3/uL 05/02/2024 5:24 AM EST [facility] Comment:No clots present. MPV 10.1 7.5 - 12.5 fL 05/02/2024 5:24 AM EST [facility] nRBC % 0.0 /100 WBCs 05/02/2024 5:24 AM EST [employer] [facility] nRBC # <0.01 <0.01 10*3/uL 05/02/2024 5:24 AM EST [facility] Blood Structure of peripheral vein / Unknown Venipuncture / Unknown 05/02/2024 4:11 AM EST 05/02/2024 4:30 AM EST us Rachel Murray MD LAB BLOOD ORDERABLES Final Resul t [employer] [facility] LAB[facility]ATORY [address] [place] [address], * (ABNORMAL) Hepatic function panel (05/02/2024 4:10 AM EST) Total Protein 6.3 6.0 - 8.0 g/dL 05/02/2024 4:59 AM EST [facility] Albumin 3.2(L) 3.5 - 5.2 g/dL 05/02/2024 4:59 AM EST [facility] Globulin, Total 3.1 2.1 - 4.2 g/dL 05/02/2024 4:59 AM EST [facility] Bilirubin, Total 2.2(H) 0.2 - 1.2 mg/dL 05/02/2024 4:59 AM EST [facility] Bilirubin, Direct 1.3(H) <=0.4 mg/dL 05/02/2024 4:59 AM EST [facility] Alkaline Phosphatase 191(H) 35 - 129 U/L 05/02/2024 4:59 AM EST [facility] AST 81(H) 10 - 40 U/L 05/02/2024 4:59 AM EST [facility] ALT 50(H) 10 - 40 U/L 05/02/2024 4:59 AM EST [facility] Bilirubin, Indirect 0.90(H) <=0.70 mg/dL 05/02/2024 4:59 AM EST [facility] A/G Ratio 1.0(L) 1.5 - 3.0 05/02/2024 4:59 AM EST [facility] Blood Structure of peripheral vein / Unknown Venipuncture / Unknown 05/02/2024 4:10 AM EST 05/02/2024 4:29 AM EST us Rachel Murray MD LAB BLOOD ORDERABLES Final Resul t Performing Organization Address [facility] Co de Phone Number [facility] [address] [place] [address], * (ABNORMAL) Protime-INR (05/02/2024 4:10 AM EST) PT 16.2(H) 9.6 - 12.4 Seconds 05/02/2024 5:03 AM EST [facility] INR 1.5 0.9 - 1.1 05/02/2024 5:03 AM EST [facility] Comment:The optimal therapeu tic INR range for patients treated with Vitamin K antagonists (VKAS, e.g., Warfarin) is 2.0 to 3.5. Discuss the desired range with your doctor/care team. Blood Structure of peripheral vein / Unknown Venipuncture / Unknown 05/02/2024 4:10 AM EST 05/02/2024 4:30 AM EST us Rachel Murray MD LAB BLOOD ORDERABLES Final Resul t Performing Organization Address [facility] Phone Number [facility] [address] [place] [address], * Magnesium (05/02/2024 4:10 AM EST) MG 1.8 1.6 - 2.4 mg/dL 05/02/2024 4:59 AM EST [facility] Blood Structure of peripheral vein / Unknown Venipuncture / Unknown 05/02/2024 4:10 AM EST 05/02/2024 4:29 AM EST us Rachel Murray MD LAB BLOOD ORDERABLES Final Resul t Performing Organization Address City/[facility] Co de Phone Number [facility] [address] [place] [address], * (ABNORMAL) Basic Metabolic Panel (05/02/2024 4:10 AM EST) NA 135 135 - 145 mmol/L 05/02/2024 4:59 AM EST [employer] K 3.3(L) 3.5 - 5.3 mmol/L 05/02/2024 4:59 AM EST [facility] Cl 104 98 - 107 mmol/L 05/02/2024 4:59 AM EST [facility] CO2 19(L) 22 - 32 mmol/L 05/02/2024 4:59 AM EST [facility] BUN 16 7 - 23 mg/dL 05/02/2024 4:59 AM EST [facility] Creatinine 0.53(L) 0.60 - 1.30 mg/dL 05/02/2024 4:59 AM EST [facility] Glucose 125(H) 65 - 99 mg/dL 05/02/2024 4:59 AM EST [employer]RI[facility] Calcium 8.3(L) 8.6 - 10.5 mg/dL 05/02/2024 4:59 AM EST [employer] [facility]SS[facility] Anion Gap 12 5 - 15 05/02/2024 4:59 AM EST [employer] NetworkASSSkillatonRIAL - [facility] eGFR >90 >=60 mL/min/1 .73m2 05/02/2024 4:59 AM EST [employer] - [facility] Comment:The estimated glomer ular [...] MD LAB BLOOD ORDERABLES Final Resul t [facility] [address] [place] [address], [place] * ENDOSCOPIC RETROGRADE CHOLANGIOPANCREATOGRAPHY (05/02/2024) Narrative Procedure Note Rachel Murray MD - 05/02/2024 1:19 PM EST [facility] Gastroenterology Patient Name: Nate Correa Procedure Date: 05/02/2024 1:19 PM Date of : 1960 Admit Type: Inpatient Age: 63 Room: [place] [address] Gender: Male Note Status: Finalized Attending MD: [...] stent and PCT were visible on the classified advertising clerk film. The esophagus was successfully intubated under [...] - 8.0 g/dL 05/01/2024 5:23 AM EST [employer] Albumin 3.4(L) 3.5 - 5.2 g/dL 05/01/2024 5:23 AM EST [employer]Fan[facility] - [facility] Globulin, Total 3.2 2.1 - 4.2 g/dL 05/01/2024 5:23 AM EST [employer] Bilirubin, Total 2.3(H) 0.2 - 1.2 mg/dL 05/01/2024 5:23 AM EST [facility] Bilirubin, Direct 1.5(H) <=0.4 mg/dL 05/01/2024 5:23 AM EST [facility] Alkaline Phosphatase 159(H) 35 - 129 U/L 05/01/2024 5:23 AM EST [facility] AST 63(H) 10 - 40 U/L 05/01/2024 5:23 AM EST [facility] ALT 37 10 - 40 U/L 05/01/2024 5:23 AM EST [facility] Bilirubin, Indirect 0.80(H) <=0.70 mg/dL 05/01/2024 5:23 AM EST [facility] A/G Ratio 1.1(L) 1.5 - 3.0 05/01/2024 5:23 AM EST [facility] Blood Structure of peripheral vein / Unknown Venipuncture / Unknown 05/01/2024 3:51 AM EST 05/01/2024 4:53 AM EST us Rachel Murary MD LAB BLOOD ORDERABLES Final Resul t Performing Organization Address [facility] Co de Phone Number [facility] [address] [place] [address], * (ABNORMAL) Protime-INR (05/01/2024 3:51 AM EST) PT 16.6(H) 9.6 - 12.4 Seconds 05/01/2024 5:12 AM EST [facility] INR 1.6 0.9 - 1.1 05/01/2024 5:12 AM EST [facility] Comment:The optimal therapeu tic INR range for patients treated with Vitamin K antagonists (VKAS, e.g., Warfarin) is 2.0 to 3.5. Discuss the desired range with your doctor/care team. Blood Structure of peripheral vein / Unknown Venipuncture / Unknown 05/01/2024 3:51 AM EST 05/01/2024 4:52 AM EST Rachel Murray MD LAB BLOOD ORDERABLES Final Resul t Performing Organization Address [facility] Co de Phone Number [facility] [address] [place] [id number], [place] * (ABNORMAL) CBC Auto Differential (05/01/2024 3:51 AM EST) WBC 8.8 3.8 - 10.8 10*3/uL 05/01/2024 4:59 AM EST [facility] RBC 3.72(L) 4.20 - 5.80 10*6/uL 05/01/2024 4:59 AM EST [facility] Hemoglobin 11.6(L) 13.2 - 17.1 g/dL 05/01/2024 4:59 AM EST [facility] Hematocrit 34.1(L) 38.5 - 50.0 % 05/01/2024 4:59 AM EST [facility] MCV 91.7 80.0 - 100.0 fL 05/01/2024 4:59 AM EST [facility] MCH 31.2 27.0 - 33.0 pg 05/01/2024 4:59 AM EST [facility] MCHC 34.0 32.0 - 36.0 g/dL 05/01/2024 4:59 AM EST [facility] RDW 16.4(H) 11.0 - 15.0 % 05/01/2024 4:59 AM EST [facility] Platelets 117(L) 140 - 400 10*3/uL 05/01/2024 4:59 AM EST [facility] MPV 10.3 7.5 - 12.5 fL 05/01/2024 4:59 AM EST [facility] [...] - 0.95 10*3/uL 05/01/2024 4:59 AM EST [facility] Eosinophil # <0.03 0.02 - 0.50 10*3/uL 05/01/2024 4:59 AM EST [facility] Basophil # <0.03 0.00 - 0.20 10*3/uL 05/01/2024 4:59 AM EST [facility] nRBC % 0.0 /100 WBCs 05/01/2024 4:59 AM EST [facility] nRBC # <0.01 <0.01 10*3/uL 05/01/2024 4:59 AM EST [facility] Blood Structure of peripheral vein / Unknown Venipuncture / Unknown 05/01/2024 3:51 AM EST 05/01/2024 4:52 AM EST us Rachel Murray MD LAB BLOOD ORDERABLES Final Resul t Performing Organization Address City/[facility]/ZIP Co de Phone Number [facility]FanHeroCOASPIRE Beverages [facility]AT[facility] [address] [place] [address], [place] * Magnesium (05/01/2024 3:51 AM EST) MG 1.9 1.6 - 2.4 mg/dL 05/01/2024 5:23 AM EST [facility] Blood Structure of peripheral vein / Unknown Venipuncture / Unknown 05/01/2024 3:51 AM EST 05/01/2024 4:53 AM EST us Rachel Murray MD LAB BLOOD ORDERABLES Final Resul t [facility] [employer] [facility]OLOG[facility] LABORATORY [address] [place] [address], [place] * (ABNORMAL) Basic Metabolic Panel (05/01/2024 3:51 AM EST) NA 134(L) 135 - 145 mmol/L 05/01/2024 5:23 AM EST [facility] K 3.8 3.5 - 5.3 mmol/L 05/01/2024 5:23 AM EST [facility] Cl 104 98 - 107 mmol/L 05/01/2024 5:23 AM EST [facility] CO2 18(L) 22 - 32 mmol/L 05/01/2024 5:23 AM EST [facility] BUN 20 7 - 23 mg/dL 05/01/2024 5:23 AM EST [facility] Creatinine 0.67 0.60 - 1.30 mg/dL 05/01/2024 5:23 AM EST [facility] Glucose 154(H) 65 - 99 mg/dL 05/01/2024 5:23 AM EST [facility] Calcium 8.5(L) 8.6 - 10.5 mg/dL 05/01/2024 5:23 AM EST [facility] Anion Gap 12 5 - 15 05/01/2024 5:23 AM EST [facility] eGFR >90 >=60 mL/min/1. 73m2 05/01/2024 5:23 AM EST [facility] Comment:The estimated glomer ular [...] ORDERABLES Final Resul t Performing Organization Address [facility]/ZIP Co de Phone Number [facility] [address] [place] [address], [place] * (ABNORMAL) Smear Review (04/30/2024 2:56 PM EST) Platelet Estimate Decrease d(A) Adequate 04/30/2024 3:56 PM EST [facility] RBC Morphology Present( A) Normal, No clinically significant RBC morphology present (ICSH guidelines, 2015). 04/30/2024 3:56 PM EST [facility] Anisocytosis 2+(A) Not Present 04/30/2024 3:56 PM EST [facility] Macrocytes 2+(A) Not Present 04/30/2024 3:56 PM EST [facility] Acanthocytes 2+(A) Not Present 04/30/2024 3:56 PM EST [facility] Chrissie Cells 2+(A) Not Present 04/30/2024 3:56 PM EST [facility] Blood Structure of peripheral vein / Unknown Venipuncture / Unknown 04/30/2024 2:56 PM EST 04/30/2024 3:07 PM EST Delmis Joseph MD LAB BLOOD ORDERABLES Final Result [facility] [address] [place] [phone], [place] * (ABNORMAL) CBC (04/30/2024 2:56 PM EST) WBC 8.0 3.8 - 10.8 10*3/uL 04/30/2024 3:56 PM EST [facility] RBC 3.67(L) 4.20 - 5.80 10*6/uL 04/30/2024 3:56 PM EST [facility] Hemoglobin 11.6(L) 13.2 - 17.1 g/dL 04/30/2024 3:56 PM EST [facility] Hematocrit 34.3(L) 38.5 - 50.0 % 04/30/2024 3:56 PM EST [facility] MCV 93.5 80.0 - 100.0 fL 04/30/2024 3:56 PM EST [facility] MCH 31.6 27.0 - 33.0 pg 04/30/2024 3:56 PM EST [facility] MCHC 33.8 32.0 - 36.0 g/dL 04/30/2024 3:56 PM EST [employer] [facility] RDW 16.5(H) 11.0 - 15.0 % 04/30/2024 3:56 PM EST [employer] [facility] [facility] Platelets 98(L) 140 - 400 10*3/uL 04/30/2024 3:56 PM EST [employer] [facility] MPV 10.6 7.5 - 12.5 fL 04/30/2024 3:56 PM EST [facility] Comment:A smear review has b een added. Clinician review and interpretation will be needed once the report is final. Blood Structure of peripheral vein / Unknown Venipuncture / Unknown 04/30/2024 2:56 PM EST 04/30/2024 3:07 PM EST us Delmis Joseph MD LAB BLOOD ORDERABLES Final Result [facility]ENTERNuday GamesCA [facility] [address] [place] [address], * (ABNORMAL) Manual Differential (04/30/2024 4:01 AM EST) Neutrophil %, Manual 94 % 04/30/2024 5:06 AM EST [facility] Lymphocyte %, Manual 1 % 04/30/2024 5:06 AM EST [facility] Monocyte %, Manual 4 % 04/30/2024 5:06 AM EST [facility] Eosinophil %, Manual 0 % 04/30/2024 5:06 AM EST [facility] Basophil %, Manual 0 % 04/30/2024 5:06 AM EST [facility] Reactive Lymphocyte % 1 0 - 6 % 04/30/2024 5:06 AM EST [facility] Total Neutrophil #, Manual 4.04 1.50 - 7.80 10*3/uL 04/30/2024 5:06 AM EST [facility] Total Lymph #, Manual 0.09(L) 0.85 - 3.90 10*3/uL 04/30/2024 5:06 AM EST [facility] Monocyte #, Manual 0.17(L) 0.20 - 0.95 10*3/uL 04/30/2024 5:06 AM EST [facility] Eosinophil #, Manual 0.00(L) 0.02 - 0.50 10*3/uL 04/30/2024 5:06 AM EST [facility] Basophil #, Manual 0.00 0.00 - 0.20 10*3/uL 04/30/2024 5:06 AM EST [facility] Reactive Lymphocytes # 0.04 10*3/uL 04/30/2024 5:06 AM EST [facility] Platelet Estimate Decrease d(A) Adequate 04/30/2024 5:06 AM EST [facility] RBC Morphology Present( A) Normal, No clinically significant RBC morphology present (ICSH guidelines, 2015). 04/30/2024 5:06 AM EST [facility] Anisocytosis 2+(A) Not Present 04/30/2024 5:06 AM EST [facility] Acanthocytes 2+(A) Not Present 04/30/2024 5:06 AM EST [facility] Chrissie Cells 3+(A) Not Present 04/30/2024 5:06 AM EST [facility] Total Cells Counted 115 04/30/2024 5:06 AM EST [employer] [facility] Blood Structure of peripheral vein / Unknown Venipuncture / Unknown 04/30/2024 4:01 AM EST 04/30/2024 4:26 AM EST us Rachel Murray MD LAB BLOOD ORDERABLES Final Resul t [facility]ENTERFuturefleetCA [facility] [address] [place] [address], [place] * (ABNORMAL) Hepatic function panel (04/30/2024 4:01 AM EST) Total Protein 5.9(L) 6.0 - 8.0 g/dL 04/30/2024 4:54 AM EST [facility] Albumin 3.1(L) 3.5 - 5.2 g/dL 04/30/2024 4:54 AM EST [facility] Globulin, Total 2.8 2.1 - 4.2 g/dL 04/30/2024 4:54 AM EST [facility] Bilirubin, Total 3.7(H) 0.2 - 1.2 mg/dL 04/30/2024 4:54 AM EST [facility] Bilirubin, Direct 2.1(H) <=0.4 mg/dL 04/30/2024 4:54 AM EST [facility] Alkaline Phosphatase 109 35 - 129 U/L 04/30/2024 4:54 AM EST [facility] AST 46(H) 10 - 40 U/L 04/30/2024 4:54 AM EST [facility] ALT 29 10 - 40 U/L 04/30/2024 4:54 AM EST [facility] Bilirubin, Indirect 1.60(H) <=0.70 mg/dL 04/30/2024 4:54 AM EST [facility] LAB[facility] A/G Ratio 1.1(L) 1.5 - 3.0 04/30/2024 4:54 AM EST [facility] Blood Structure of peripheral vein / Unknown Venipuncture / Unknown 04/30/2024 4:01 AM EST 04/30/2024 4:26 AM EST Rachel Murray MD LAB BLOOD ORDERABLES Final Resul t Performing Organization Address [facility] Co de Phone Number [facility] PATHOLOG[facility] LAB[facility]ATORY [address] [place] [address], [place] * (ABNORMAL) Protime-INR (04/30/2024 4:01 AM EST) PT 17.8(H) 9.6 - 12.4 Seconds 04/30/2024 4:52 AM EST [facility] INR 1.7 0.9 - 1.1 04/30/2024 4:52 AM EST [facility] Comment:The optimal therapeu tic INR range for patients treated with Vitamin K antagonists (VKAS, e.g., Warfarin) is 2.0 to 3.5. Discuss the desired range with your doctor/care team. Blood Structure of peripheral vein / Unknown Venipuncture / Unknown 04/30/2024 4:01 AM EST 04/30/2024 4:26 AM EST Rachel Murray MD LAB BLOOD ORDERABLES Final Resul t Performing Organization Address [facility]/ZIP Co de Phone Number [facility] LAB[facility]ORY [address] [place] [address], [place] * (ABNORMAL) CBC Auto Differential (04/30/2024 4:01 AM EST) WBC 4.3 3.8 - 10.8 10*3/uL 04/30/2024 5:06 AM EST [facility] RBC 3.54(L) 4.20 - 5.80 10*6/uL 04/30/2024 5:06 AM EST [facility] Hemoglobin 11.4(L) 13.2 - 17.1 g/dL 04/30/2024 5:06 AM EST [facility] Hematocrit 32.9(L) 38.5 - 50.0 % 04/30/2024 5:06 AM EST [facility] MCV 92.9 80.0 - 100.0 fL 04/30/2024 5:06 AM EST [facility] MCH 32.2 27.0 - 33.0 pg 04/30/2024 5:06 AM EST [facility] MCHC 34.7 32.0 - 36.0 g/dL 04/30/2024 5:06 AM EST [facility] RDW 16.3(H) 11.0 - 15.0 % 04/30/2024 5:06 AM EST [facility] Platelets 76(L) 140 - 400 10*3/uL 04/30/2024 5:06 AM EST [facility] MPV 10.5 7.5 - 12.5 fL 04/30/2024 5:06 AM EST [facility] nRBC % 0.0 /100 WBCs 04/30/2024 5:06 AM EST [facility] nRBC # <0.01 <0.01 10*3/uL 04/30/2024 5:06 AM EST [facility] Blood Structure of peripheral vein / Unknown Venipuncture / Unknown 04/30/2024 4:01 AM EST 04/30/2024 4:26 AM EST Rachel Murray MD LAB BLOOD ORDERABLES Final Resul t Performing Organization Address City/[facility]/ZIP Co de Phone Number [facility] [address] [place] [address], * Magnesium (04/30/2024 4:01 AM EST) MG 2.1 1.6 - 2.4 mg/dL 04/30/2024 4:54 AM EST [facility] Blood Structure of peripheral vein / Unknown Venipuncture / Unknown 04/30/2024 4:01 AM EST 04/30/2024 4:26 AM EST Rachel Murray MD LAB BLOOD ORDERABLES Final Resul t Performing Organization Address [facility] Co de Phone Number [facility] [address] [place] [address], * (ABNORMAL) Basic Metabolic Panel (04/30/2024 4:01 AM EST) NA 133(L) 135 - 145 mmol/L 04/30/2024 4:54 AM EST [facility] K 4.5 3.5 - 5.3 mmol/L 04/30/2024 4:54 AM EST [facility] Cl 105 98 - 107 mmol/L 04/30/2024 4:54 AM EST [employer] CO2 17(L) 22 - 32 mmol/L 04/30/2024 4:54 AM EST [facility] BUN 21 7 - 23 mg/dL 04/30/2024 4:54 AM EST [facility] Creatinine 0.74 0.60 - 1.30 mg/dL 04/30/2024 4:54 AM EST [facility] Glucose 163(H) 65 - 99 mg/dL 04/30/2024 4:54 AM EST [facility] Calcium 8.4(L) 8.6 - 10.5 mg/dL 04/30/2024 4:54 AM EST [facility] Anion Gap 11 5 - 15 04/30/2024 4:54 AM EST [facility] eGFR >90 >=60 mL/min/1. 73m2 04/30/2024 4:54 AM EST [facility] Comment:The estimated glomer [...] MD LAB BLOOD ORDERABLES Final Resul t [facility] LAB[facility]ATORY [address] [place] [id number], * [place] C-Arm ERCP in OR NONREPORTABLE (04/29/2024 5:59 PM EST) Narrative IMAGING - 04/29/2024 6:01 PM EST This procedure does not contain a result. Please see the surgeon's note for official report. us Rachel Murray MD IMG FLUOROSCOPY PROCEDURES Final Result IMAGING * MS ABDOM PARACENTESIS DX/THER W IMAGING GUIDANCE (04/29/2024 [...] ??Patient's understanding of procedure matches consent: ??Yes [facility]er Protocol: ??Procedure consent matches procedure scheduled: ??Yes [...] Hold for add-ons. 04/29/2024 6:05 PM EST [facility] Comment:Auto resulted. Blood Structure of peripheral vein / Unknown 04/29/2024 10:15 AM EST 04/29/2024 1:05 PM EST Delmis Joseph MD LAB BLOOD ORDERABLES Final Result Performing Organization Address [facility] de Phone Number [facility]OLOG[facility] LAB[facility]ATORY [address] [place] [address], [place] * STAT Gram Stain (04/29/2024 10:15 AM EST) Gram Stain, STAT No organisms seen 04/29/2024 1:51 PM EST [facility] Gram Stain, STAT 3+ Polymorphonuclear leukocytes 04/29/2024 1:51 PM EST [facility] Gram Stain, STAT 2+ Mononuclear Cells 04/29/2024 1:51 PM EST [facility] Body Fluid Peritoneal cavity structure / Unknown Non-Blood Collection / Unknown 04/29/2024 10:15 AM EST 04/29/2024 1:00 PM EST Rachel Murray MD LAB MICROBIOLOGY - GENERAL ORDER ISRAEL Final Result Performing Organization Address [facility] Phone Number [facility] CL[facility] PATHOLOG[facility] LAB[facility]ATORY [address] [place] [address], * Anaerobic Culture (04/29/2024 10:15 AM EST) Culture No anaerobes isolated. 05/05/2024 6:12 PM EST [facility] Body Fluid Peritoneal cavity structure / Unknown Non-Blood Collection / Unknown 04/29/2024 10:15 AM EST 04/29/2024 1:00 PM EST [facility]ative [facility] 05/05/2024 6:12 PM EST [facility] Received Date: MICRO NUMBER: [id number] SPECIMEN QUALITY: Adequate SOURCE: BODY FLUID PERITONEAL STATUS: FINAL Delmis Joseph MD LAB MICROBIOLOGY - GENERAL ORDERABLES Final Result Performing Organization Address City/[facility]/ZIP Co de Phone Number [facility] [address], [place] [address], [facility] [address], [place] [address], [place] [phone] * Body Fluid Aerobic Culture (04/29/2024 10:15 AM EST) Culture No growth 05/05/2024 10:27 AM EST [facility] Body Fluid Peritoneal cavity structure / Unknown Non-Blood Collection / Unknown 04/29/2024 10:15 AM EST 04/29/2024 1:00 PM EST Narrative [facility] - 05/05/2024 10:27 AM EST [facility] Received Date: MICRO NUMBER: [id number] SPECIMEN QUALITY: Adequate SOURCE: BODY FLUID PERITONEAL STATUS: FINAL Delmis Joseph MD LAB MICROBIOLOGY - GENERAL ORDERABLES Final Result Performing Organization Address City/[facility]/ZIP Co de Phone Number [facility] [address], [place] [address], [place] [phone] [facility] [address] [facility], [place] [address], [place] [phone] * (ABNORMAL) Cell Count w/Differential, Peritoneal (04/29/2024 10:15 AM EST) Color, Peritoneal Yellow Colorless, Yellow, Straw 04/29/2024 2:13 PM EST [facility] Appearance, Peritoneal Hazy(A) Clear 04/29/2024 2:13 PM EST [facility] TNC/WBC, Peritoneal 363(H) <=250 cells/mm3 04/29/2024 2:13 PM EST [employer] [facility] LAB[facility] Comment:Values of TNC <=250 do not rule out abnormality. Clinical correlation is advised. RBC, Peritoneal 3,000 Not established cells/mm3 04/29/2024 2:13 PM EST [facility] Neutrophils %, Peritoneal 58 % 04/29/2024 2:13 PM EST [facility] Lymphocytes %, Peritoneal 24 % 04/29/2024 2:13 PM EST [facility] Bollinger/Macrophage %, Peritoneal 17 % 04/29/2024 2:13 PM EST [facility] Basophil %, Peritoneal 1 % 04/29/2024 2:13 PM EST [facility] Mesothelial %, Peritoneal 1 % 04/29/2024 2:13 PM EST [facility] Differential Cells Counted, Peritoneal 102 04/29/2024 2:13 PM EST [facility] Peritoneal Fluid Specimen from peritoneum / Unknown Non-Blood Collection / Unknown 04/29/2024 10:15 AM EST 04/29/2024 1:00 PM EST us Delmis Joseph MD LAB BODY FLUIDS AND STOOLS ORDERABLES Final Result [facility]Future[facility] [address] [place] [id number], * (ABNORMAL) Hepatic function panel (04/29/2024 4:30 AM EST) Total Protein 5.8(L) 6.0 - 8.0 g/dL 04/29/2024 5:27 AM EST [facility] Albumin 3.3(L) 3.5 - 5.2 g/dL 04/29/2024 5:27 AM EST [facility] Globulin, Total 2.5 2.1 - 4.2 g/dL 04/29/2024 5:27 AM EST [facility] Bilirubin, Total 5.9(H) 0.2 - 1.2 mg/dL 04/29/2024 5:27 AM EST [employer] [facility] Bilirubin, Direct 2.9(H) <=0.4 mg/dL 04/29/2024 5:27 AM EST [facility] Alkaline Phosphatase 109 35 - 129 U/L 04/29/2024 5:27 AM EST [facility] AST 44(H) 10 - 40 U/L 04/29/2024 5:27 AM EST [facility] ALT 30 10 - 40 U/L 04/29/2024 5:27 AM EST [facility] Bilirubin, Indirect 3.00(H) <=0.70 mg/dL 04/29/2024 5:27 AM EST [facility] A/G Ratio 1.3(L) 1.5 - 3.0 04/29/2024 5:27 AM EST [facility] Blood Structure of peripheral vein / Unknown Venipuncture / Unknown 04/29/2024 4:30 AM EST 04/29/2024 4:36 AM EST us Rachel Murray MD LAB BLOOD ORDERABLES Final Resul t [facility] [address] [place] [id number], * (ABNORMAL) Protime-INR (04/29/2024 4:30 AM EST) PT 18.2(H) 9.6 - 12.4 Seconds 04/29/2024 4:55 AM EST [facility] INR 1.7 0.9 - 1.1 04/29/2024 4:55 AM EST [facility] Comment:The optimal therapeu tic INR range for patients treated with Vitamin K antagonists (VKAS, e.g., Warfarin) is 2.0 to 3.5. Discuss the desired range with your doctor/care team. Blood Structure of peripheral vein / Unknown Venipuncture / Unknown 04/29/2024 4:30 AM EST 04/29/2024 4:38 AM EST us Rachel Murray MD LAB BLOOD ORDERABLES Final Resul t [facility] [address] [place] [address], [place] * (ABNORMAL) CBC Auto Differential (04/29/2024 4:30 AM EST) WBC 8.7 3.8 - 10.8 10*3/uL 04/29/2024 4:44 AM EST [facility] RBC 3.75(L) 4.20 - 5.80 10*6/uL 04/29/2024 4:44 AM EST [facility] Hemoglobin 11.9(L) 13.2 - 17.1 g/dL 04/29/2024 4:44 AM EST [facility] Hematocrit 34.5(L) [...] - 400 10*3/uL 04/29/2024 4:44 AM EST [facility] MPV 10.2 7.5 - 12.5 fL 04/29/2024 4:44 AM EST [facility] Neutrophil % 73.8 % 04/29/2024 4:44 AM EST [facility] Immature Grans % 0.5 0.0 - 0.9 % 04/29/2024 4:44 AM EST [facility] Lymphocyte % 9.1 % 04/29/2024 4:44 AM EST [facility] Monocyte % 14.1 % 04/29/2024 4:44 AM EST [facility] Eosinophil % 1.8 % 04/29/2024 4:44 AM EST [facility] Basophil % 0.7 % 04/29/2024 4:44 AM EST [facility] Neutrophil # 6.42 1.50 - 7.80 10*3/uL 04/29/2024 4:44 AM EST [facility] Immature Grans # 0.04(H) <=0.03 10*3/uL 04/29/2024 4:44 AM EST [facility] Lymphocyte # 0.80(L) 0.85 - 3.90 10*3/uL 04/29/2024 4:44 AM EST [facility] Monocyte # 1.20(H) 0.20 - 0.95 10*3/uL 04/29/2024 4:44 AM EST [facility] Eosinophil # 0.20 0.02 - 0.50 10*3/uL 04/29/2024 4:44 AM EST [facility] Basophil # 0.10 0.00 - 0.20 10*3/uL 04/29/2024 4:44 AM EST [facility] nRBC % 0.0 /100 WBCs 04/29/2024 4:44 AM EST [facility] nRBC # <0.01 <0.01 10*3/uL 04/29/2024 4:44 AM EST [facility] Blood Structure of peripheral vein / Unknown Venipuncture / Unknown 04/29/2024 4:30 AM EST 04/29/2024 4:37 AM EST us Rachel Murray MD LAB BLOOD ORDERABLES Final Resul t Performing Organization Address City/[facility]/ZIP Co de Phone Number [facility] [address] [place] [address], * Magnesium (04/29/2024 4:30 AM EST) MG 1.9 1.6 - 2.4 mg/dL 04/29/2024 5:27 AM EST [facility] Blood Structure of peripheral vein / Unknown Venipuncture / Unknown 04/29/2024 4:30 AM EST 04/29/2024 4:36 AM EST us Rachel Murray MD LAB BLOOD ORDERABLES Final Resul t Performing Organization Address [facility] de Phone Number [facility] [address] [place] [address], * (ABNORMAL) Basic Metabolic Panel (04/29/2024 4:30 AM EST) NA 130(L) 135 - 145 mmol/L 04/29/2024 5:28 AM EST [employer] [facility] K 3.9 3.5 - 5.3 mmol/L 04/29/2024 5:28 AM EST [employer] Cl 102 98 - 107 mmol/L 04/29/2024 5:28 AM EST [facility] CO2 15(LL) 22 - 32 mmol/L 04/29/2024 5:28 AM EST [facility] BUN 20 7 - 23 mg/dL 04/29/2024 5:28 AM EST [facility] Creatinine 0.88 0.60 - 1.30 mg/dL 04/29/2024 5:28 AM EST [employer] [facility] Glucose 130(H) 65 - 99 mg/dL 04/29/2024 5:28 AM EST [employer] Calcium 8.6 8.6 - 10.5 mg/dL 04/29/2024 5:28 AM EST [facility] Anion Gap 13 5 - 15 04/29/2024 5:28 AM EST [facility] eGFR >90 >=60 mL/min/1. 73m2 04/29/2024 5:28 AM EST [facility] Comment:The estimated glomer ular [...] LAB BLOOD ORDERABLES Final Resul t [facility] [address] [place] [address], * ENDOSCOPIC RETROGRADE CHOLANGIOPANCREATOGRAPHY (04/29/2024) Narrative Procedure Note Rachel Murray MD - 04/29/2024 3:18 PM EST [facility] Gastroenterology Patient Name: Nate Correa Procedure Date: 04/29/2024 3:18 PM Date of : 1960 Admit Type: Inpatient Age: 63 Room: [place] [address] Gender: Male Note Status: Finalized Attending MD: [...] by the physician, the nurse and the voice network administrator in the pre-procedure area in theendoscopy suite. [...] was 589 seconds (604.5 mGy). Findings: A classified advertising clerk film of the abdomen was obtained. Percutaneous [...] - 8.0 g/dL 04/28/2024 1:51 PM EST [facility] Albumin 3.6 3.5 - 5.2 g/dL 04/28/2024 1:51 PM EST [employer] [facility] Globulin, Total 2.5 2.1 - 4.2 g/dL 04/28/2024 1:51 PM EST [employer] [facility] Bilirubin, Total 8.1(H) 0.2 - 1.2 mg/dL 04/28/2024 1:51 PM EST [employer] [facility] Bilirubin, Direct 3.9(H) <=0.4 mg/dL 04/28/2024 1:51 PM EST [facility] Alkaline Phosphatase 117 35 - 129 U/L 04/28/2024 1:51 PM EST [facility] [employer] [facility] AST 52(H) 10 - 40 U/L 04/28/2024 1:51 PM EST [facility] [employer] [facility] ALT 35 10 - 40 U/L 04/28/2024 1:51 PM EST [employer] [facility] Bilirubin, Indirect 4.20(H) <=0.70 mg/dL 04/28/2024 1:51 PM EST [facility] A/G Ratio 1.4(L) 1.5 - 3.0 04/28/2024 1:51 PM EST [facility] Blood Structure of peripheral vein / Unknown Venipuncture / Unknown 04/28/2024 12:16 PM EST 04/28/2024 12:54 PM EST us Rachel Murray MD LAB BLOOD ORDERABLES Final Resul t Performing Organization Address [facility] Co de Phone Number [facility] [address] [place] [id number], * Magnesium (04/28/2024 12:16 PM EST) MG 2.0 1.6 - 2.4 mg/dL 04/28/2024 1:49 PM EST [facility] Blood Structure of peripheral vein / Unknown Venipuncture / Unknown 04/28/2024 12:16 PM EST 04/28/2024 12:54 PM EST us Rachel Murray MD LAB BLOOD ORDERABLES Final Resul t [facility] [address] [place] [address], * (ABNORMAL) Basic Metabolic Panel (04/28/2024 12:16 PM EST) NA 133(L) 135 - 145 mmol/L 04/28/2024 1:49 PM EST [facility] K 4.0 3.5 - 5.3 mmol/L 04/28/2024 1:49 PM EST [facility] Cl 101 98 - 107 mmol/L 04/28/2024 1:49 PM EST [facility] CO2 17(L) 22 - 32 mmol/L 04/28/2024 1:49 PM EST [facility] BUN 16 7 - 23 mg/dL 04/28/2024 1:49 PM EST [facility] Creatinine 0.97 0.60 - 1.30 mg/dL 04/28/2024 1:49 PM EST [facility] Glucose 124(H) 65 - 99 mg/dL 04/28/2024 1:49 PM EST [facility] Calcium 9.0 8.6 - 10.5 mg/dL 04/28/2024 1:49 PM EST [employer] Anion Gap 15 5 - 15 04/28/2024 1:49 PM EST [employer] [facility] eGFR 87 >=60 mL/min/1. 73m2 04/28/2024 1:49 PM EST [employer] [facility] Comment:The estimated glomer ular [...] ORDERABLES Final Resul t Performing Organization Address [facility] de Phone Number [facility] [address] [place] [address], [place] * (ABNORMAL) Protime-INR (04/28/2024 5:40 AM EST) PT 18.2(H) 9.6 - 12.4 Seconds 04/28/2024 6:05 AM EST [facility] INR 1.7 0.9 - 1.1 04/28/2024 6:05 AM EST [facility] Comment:The optimal therapeu tic INR range for patients treated with Vitamin K antagonists (VKAS, e.g., Warfarin) is 2.0 to 3.5. Discuss the desired range with your doctor/care team. Blood Structure of peripheral vein / Unknown Venipuncture / Unknown 04/28/2024 5:40 AM EST 04/28/2024 5:49 AM EST Rachel Murray MD LAB BLOOD ORDERABLES Final Resul t Performing Organization Address [facility] de Phone Number [facility] [address] [place] [address], [place] * (ABNORMAL) CBC Auto Differential (04/28/2024 5:30 AM EST) WBC 10.9(H) 3.8 - 10.8 10*3/uL 04/28/2024 5:59 AM EST [facility] RBC 3.80(L) 4.20 - 5.80 10*6/uL 04/28/2024 5:59 AM EST [facility] Hemoglobin 12.0(L) 13.2 - 17.1 g/dL 04/28/2024 5:59 AM EST [facility] Hematocrit 35.3(L) 38.5 - 50.0 % 04/28/2024 5:59 AM EST [facility] MCV 92.9 80.0 - 100.0 fL 04/28/2024 5:59 AM EST [facility] MCH 31.6 27.0 - 33.0 pg 04/28/2024 5:59 AM EST [facility] MCHC 34.0 32.0 - 36.0 g/dL 04/28/2024 5:59 AM EST [facility] RDW 16.3(H) 11.0 - 15.0 % 04/28/2024 5:59 AM EST [facility] Platelets 111(L) 140 - [...] - 0.20 10*3/uL 04/28/2024 5:59 AM EST [facility] nRBC % 0.0 /100 WBCs 04/28/2024 5:59 AM EST [facility] nRBC # <0.01 <0.01 10*3/uL 04/28/2024 5:59 AM EST [facility] [employer] Blood Structure of peripheral vein / Unknown Venipuncture / Unknown 04/28/2024 5:30 AM EST 04/28/2024 5:49 AM EST us Rachel Murray MD LAB BLOOD ORDERABLES Final Resul t Performing Organization Address City/State/[facility] Co de Phone Number [facility] [employer] [facility] [address] [place] [address], [place] * [place] Limited Abdomen Single Org [...] obtain the completed interpretation. ? Workstation ID: [id number] Narrative 04/28/2024 8:28 AM EST EXAMINATION: Limited [...] PERITONEUM: Moderate perihepatic ascites. Resulting Agency Comment [id number] Procedure Note Kevin Rausch MD - 04/28/2024 [...] possible to obtain thecompleted interpretation. Workstation ID: [id number] us Jeffrey Castro MD [facility] [place] PROCEDURES Final Result * (ABNORMAL) Hepatic function panel (04/27/2024 5:00 AM EST) Total Protein 6.0 6.0 - 8.0 g/dL 04/27/2024 5:55 AM EST [facility] Albumin 3.8 3.5 - 5.2 g/dL 04/27/2024 5:55 AM EST [facility] Globulin, Total 2.2 2.1 - 4.2 g/dL 04/27/2024 5:55 AM EST [facility] Bilirubin, Total 4.3(H) 0.2 - 1.2 mg/dL 04/27/2024 5:55 AM EST [facility] Bilirubin, Direct 1.6(H) <=0.4 mg/dL 04/27/2024 5:55 AM EST [facility] Alkaline Phosphatase 128 35 - 129 U/L 04/27/2024 5:55 AM EST [facility] AST 74(H) 10 - 40 U/L 04/27/2024 5:55 AM EST [facility] ALT 34 10 - 40 U/L 04/27/2024 5:55 AM EST [facility] Bilirubin, Indirect 2.70(H) <=0.70 mg/dL 04/27/2024 5:55 AM EST [facility] A/G Ratio 1.7 1.5 - 3.0 04/27/2024 5:55 AM EST [facility] Blood Structure of peripheral vein / Unknown Venipuncture / Unknown 04/27/2024 5:00 AM EST 04/27/2024 5:20 AM EST us Rachel Murray MD LAB BLOOD ORDERABLES Final Resul t [facility] [employer] [facility] [address] [place] [address], * (ABNORMAL) Protime-INR (04/27/2024 5:00 AM EST) PT 17.2(H) 9.6 - 12.4 Seconds 04/27/2024 5:46 AM EST [facility] INR 1.7 0.9 - 1.1 04/27/2024 5:46 AM EST [employer] [facility] Comment:The optimal therapeu tic INR range for patients treated with Vitamin K antagonists (VKAS, e.g., Warfarin) is 2.0 to 3.5. Discuss the desired range with your doctor/care team. Blood Structure of peripheral vein / Unknown Venipuncture / Unknown 04/27/2024 5:00 AM EST 04/27/2024 5:20 AM EST us Rachel Murray MD LAB BLOOD ORDERABLES Final Resul t [facility] [employer] [facility] [address] [place] [address], * (ABNORMAL) CBC Auto Differential (04/27/2024 5:00 AM EST) WBC 10.2 3.8 - 10.8 10*3/uL 04/27/2024 5:28 AM EST [facility] RBC 3.57(L) 4.20 - 5.80 10*6/uL 04/27/2024 5:28 AM EST [facility] Hemoglobin 11.5(L) 13.2 - 17.1 g/dL 04/27/2024 5:28 AM EST [facility] Hematocrit 32.6(L) 38.5 - 50.0 % 04/27/2024 5:28 AM EST [facility] MCV 91.3 80.0 - 100.0 fL 04/27/2024 5:28 AM EST [facility] MCH 32.2 27.0 - 33.0 pg 04/27/2024 5:28 AM EST [facility] MCHC 35.3 32.0 - 36.0 g/dL 04/27/2024 5:28 AM EST [employer] [facility] RDW 15.9(H) 11.0 - 15.0 % 04/27/2024 5:28 AM EST [facility] Platelets 115(L) 140 - 400 10*3/uL 04/27/2024 5:28 AM EST [facility] [...] % 1.1 % 04/27/2024 5:28 AM EST [facility] Basophil % 0.6 % 04/27/2024 5:28 AM EST [facility] Neutrophil # 8.18(H) 1.50 - 7.80 10*3/uL 04/27/2024 5:28 AM EST [facility] Immature Grans # 0.05(H) <=0.03 10*3/uL 04/27/2024 5:28 AM EST [facility] Lymphocyte # 0.70(L) 0.85 - 3.90 10*3/uL 04/27/2024 5:28 AM EST [facility] Monocyte # 1.10(H) 0.20 - 0.95 10*3/uL 04/27/2024 5:28 AM EST [facility] Eosinophil # 0.10 0.02 - 0.50 10*3/uL 04/27/2024 5:28 AM EST [facility] Basophil # 0.10 0.00 - 0.20 10*3/uL 04/27/2024 5:28 AM EST [facility] nRBC % 0.0 /100 WBCs 04/27/2024 5:28 AM EST [employer] [facility] nRBC # <0.01 <0.01 10*3/uL 04/27/2024 5:28 AM EST [facility] Blood Structure of peripheral vein / Unknown Venipuncture / Unknown 04/27/2024 5:00 AM EST 04/27/2024 5:20 AM EST us Rachel Murray MD LAB BLOOD ORDERABLES Final Resul t Performing Organization Address City/[facility]/ZIP Co de Phone Number [id number] [facility] [employer] [facility] LAB[facility]ORY [address] [place] [address], * Magnesium (04/27/2024 5:00 AM EST) MG 1.9 1.6 - 2.4 mg/dL 04/27/2024 5:52 AM EST [facility] Blood Structure of peripheral vein / Unknown Venipuncture / Unknown 04/27/2024 5:00 AM EST 04/27/2024 5:20 AM EST us Rachel Murray MD LAB BLOOD ORDERABLES Final Resul t Performing Organization Address City/[facility]/ZIP Co de Phone Number [employer] - [employer] [facility]ORY [address] [place] [address] * (ABNORMAL) Basic Metabolic Panel (04/27/2024 5:00 AM EST) NA 133(L) 135 - 145 mmol/L 04/27/2024 5:52 AM EST [employer] [facility] K 3.7 3.5 - 5.3 mmol/L 04/27/2024 5:52 AM EST [facility] Cl 103 98 - 107 mmol/L 04/27/2024 5:52 AM EST [facility] CO2 16(L) 22 - 32 mmol/L 04/27/2024 5:52 AM EST [facility] BUN 13 7 - 23 mg/dL 04/27/2024 5:52 AM EST [facility] Creatinine 0.79 0.60 - 1.30 mg/dL 04/27/2024 5:52 AM EST [facility] Glucose 128(H) 65 - 99 mg/dL 04/27/2024 5:52 AM EST [facility] Calcium 8.8 8.6 - 10.5 mg/dL 04/27/2024 5:52 AM EST [facility] Anion Gap 14 5 - 15 04/27/2024 5:52 AM EST [facility] eGFR >90 >=60 mL/min/1. 73m2 04/27/2024 5:52 AM EST [facility] Comment:The estimated glomer ular [...] MD LAB BLOOD ORDERABLES Final Resul t [employer] [facility] [address] [place] [address], * Vancomycin, Trough (04/26/2024 7:55 AM EST) Vancomycin Trough 14.2 10.0 - 20.0 ug/mL 04/26/2024 8:33 AM EST [facility] Comment: Before interpreting a [...] ORDERABLES Final Re sult Performing Organization Address [facility] Co de Phone Number [facility] [address] [place] [address], [place] * (ABNORMAL) Smear Review (04/26/2024 5:01 AM EST) Platelet Estimate Decrease d(A) Adequate 04/26/2024 7:29 AM EST [facility] Comment:PLT: Rare platelet c lumps, counts appear decreased RBC Morphology Present( A) Normal, No clinically significant RBC morphology present (ICSH guidelines, 2015). 04/26/2024 7:29 AM EST [facility] Acanthocytes 2+(A) Not Present 04/26/2024 7:29 AM EST [facility] Chrissie Cells 2+(A) Not Present 04/26/2024 7:29 AM EST [facility] Blood Structure of peripheral vein / Unknown Venipuncture / Unknown 04/26/2024 5:01 AM EST 04/26/2024 5:29 AM EST Natalio Lara MD LAB BLOOD ORDERABLES Final Re sult Performing Organization Address [facility]/ZIP Co de Phone Number [facility] [address] [place] [id number], [place] * (ABNORMAL) Hepatic function panel (04/26/2024 5:01 AM EST) Total Protein 5.7(L) 6.0 - 8.0 g/dL 04/26/2024 6:08 AM EST [facility] Albumin 3.5 3.5 - 5.2 g/dL 04/26/2024 6:08 AM EST [facility] Globulin, Total 2.2 2.1 - 4.2 g/dL 04/26/2024 6:08 AM EST [facility] Bilirubin, Total 2.5(H) 0.2 - 1.2 mg/dL 04/26/2024 6:08 AM EST [facility] Bilirubin, Direct 0.6(H) <=0.4 mg/dL 04/26/2024 6:08 AM EST [facility] Alkaline Phosphatase 76 35 - 129 U/L 04/26/2024 6:08 AM EST [facility] AST 34 10 - 40 U/L 04/26/2024 6:08 AM EST [facility] ALT 20 10 - 40 U/L 04/26/2024 6:08 AM EST [facility] Bilirubin, Indirect 1.90(H) <=0.70 mg/dL 04/26/2024 6:08 AM EST [facility] A/G Ratio 1.6 1.5 - 3.0 04/26/2024 6:08 AM EST [facility] Blood Structure of peripheral vein / Unknown Venipuncture / Unknown 04/26/2024 5:01 AM EST 04/26/2024 5:31 AM EST us Rachel Murray MD LAB BLOOD ORDERABLES Final Resul t [facility] [employer] [facility] LAB[facility] [address] [place] [address], [place] * (ABNORMAL) Protime-INR (04/26/2024 5:01 AM EST) Pathologist [facility] [place] PT 16.1(H) 9.6 - 12.4 Seconds 04/26/2024 5:48 AM EST [employer] [facility] INR 1.5 0.9 - 1.1 04/26/2024 5:48 AM EST [employer] [facility] Comment:The optimal therapeu tic INR range for patients treated with Vitamin K antagonists (VKAS, e.g., Warfarin) is 2.0 to 3.5. Discuss the desired range with your doctor/care team. Blood Structure of peripheral vein / Unknown Venipuncture / Unknown 04/26/2024 5:01 AM EST 04/26/2024 5:28 AM EST us Rachel Murray MD LAB BLOOD ORDERABLES Final Resul t [facility] [employer] [facility] [address] [place] [id number], * (ABNORMAL) CBC Auto Differential (04/26/2024 5:01 AM EST) Pathologist [facility] [place] WBC 7.2 3.8 - 10.8 10*3/uL 04/26/2024 7:29 AM EST [employer] [facility] RBC 3.37(L) 4.20 - 5.80 10*6/uL 04/26/2024 7:29 AM EST [employer] [facility] Hemoglobin 10.8(L) 13.2 - 17.1 g/dL 04/26/2024 7:29 AM EST [facility] Hematocrit 30.9(L) 38.5 - 50.0 % 04/26/2024 7:29 AM EST [employer] [facility] MCV 91.7 80.0 - 100.0 fL 04/26/2024 7:29 AM EST [employer] [facility] MCH 32.0 27.0 - 33.0 pg 04/26/2024 7:29 AM EST [employer] [facility] MCHC 35.0 32.0 - [...] % 0.8 % 04/26/2024 7:29 AM EST [facility] Neutrophil # 5.56 1.50 - 7.80 10*3/uL 04/26/2024 7:29 AM EST [facility] Immature Grans # <0.03 <=0.03 10*3/uL 04/26/2024 7:29 AM EST [facility] Lymphocyte # 0.60(L) 0.85 - 3.90 10*3/uL 04/26/2024 7:29 AM EST [facility] Monocyte # 0.80 0.20 - 0.95 10*3/uL 04/26/2024 7:29 AM EST [facility] Eosinophil # 0.10 0.02 - 0.50 10*3/uL 04/26/2024 7:29 AM EST [facility] [facility] Basophil # 0.10 0.00 - 0.20 10*3/uL 04/26/2024 7:29 AM EST [facility] nRBC % 0.0 /100 WBCs 04/26/2024 7:29 AM EST [facility] nRBC # <0.01 <0.01 10*3/uL 04/26/2024 7:29 AM EST [facility] Blood Structure of peripheral vein / Unknown Venipuncture / Unknown 04/26/2024 5:01 AM EST 04/26/2024 5:29 AM EST us Rachel Murray MD LAB BLOOD ORDERABLES Final Resul t Performing Organization Address City/[facility] Co de Phone Number [facility] [address] [place] [address], [place] * Magnesium (04/26/2024 5:01 AM EST) MG 1.9 1.6 - 2.4 mg/dL 04/26/2024 6:08 AM EST [facility] Blood Structure of peripheral vein / Unknown Venipuncture / Unknown 04/26/2024 5:01 AM EST 04/26/2024 5:31 AM EST us Rachel Murray MD LAB BLOOD ORDERABLES Final Resul t [facility] [employer] [facility] [address] [place] [address], [place] * (ABNORMAL) Basic Metabolic Panel (04/26/2024 5:01 AM EST) NA 132(L) 135 - 145 mmol/L 04/26/2024 6:08 AM EST [facility] K 3.7 3.5 - 5.3 mmol/L 04/26/2024 6:08 AM EST [facility] Cl 103 98 - 107 mmol/L 04/26/2024 6:08 AM EST [email or web address] CO2 17(L) 22 - 32 mmol/L 04/26/2024 6:08 AM EST [facility] BUN 17 7 - 23 mg/dL 04/26/2024 6:08 AM EST [facility] Creatinine 0.73 0.60 - 1.30 mg/dL 04/26/2024 6:08 AM EST [facility] Glucose 122(H) 65 - 99 mg/dL 04/26/2024 6:08 AM EST [facility] Calcium 8.7 8.6 - 10.5 mg/dL 04/26/2024 6:08 AM EST [facility] Anion Gap 12 5 - 15 04/26/2024 6:08 AM EST [employer] [facility] eGFR >90 >=60 mL/min/1. 73m2 04/26/2024 6:08 AM EST [employer] [facility] Comment:The estimated glomer ular [...] MD LAB BLOOD ORDERABLES Final Resul t [facility]Future[facility] [address] [place] [address], * Lactic Acid, Plasma (04/26/2024 5:01 AM EST) Lactic Acid 1.6 0.5 - 1.9 mmol/L 04/26/2024 6:06 AM EST [facility] Comment: Sepsis Screening: Initial Lactate Level >2.0 mmol/L - Repeat Lactate Level within 3 hours. Initial Lactate Level >4.0 mmol/L - Repeat Lactate Level within 3 hours, Initiate Septic Shock Protocol. Blood Structure of peripheral vein / Unknown Venipuncture / Unknown 04/26/2024 5:01 AM EST 04/26/2024 5:31 AM EST us Natalio Lara MD LAB BLOOD ORDERABLES Final Re sult [facility] [employer] [facility] CL[facility]ICAL PATHOLOGY LABORATORY [address] [place] [address], [place] * CT 3 Phase Liver Mass [...] obtain the completed interpretation. ? Workstation ID: [id number] Narrative 04/25/2024 4:52 PM EST EXAMINATION: CT [...] disease. No acute fracture. Resulting Agency Comment [id number] Procedure Note Cheryl Pitts MD - 04/25/2024 [...] possible to obtain thecompleted interpretation. Workstation ID: [id number] Natalio Lara MD IMG CT PROCEDURES Final Resul t * (ABNORMAL) Lactic Acid, Plasma (04/25/2024 11:31 AM EST) Pathologist [facility] [place] Lactic Acid 2.6(H) 0.5 - 1.9 mmol/L 04/25/2024 12:36 PM EST [facility] Comment: Sepsis Screening: Initial Lactate Level >2.0 mmol/L - Repeat Lactate Level within 3 hours. Initial Lactate Level >4.0 mmol/L - Repeat Lactate Level within 3 hours, Initiate Septic Shock Protocol. Blood Structure of peripheral vein / Unknown Venipuncture / Unknown 04/25/2024 11:31 AM EST 04/25/2024 12:07 PM EST Natalio Lara MD LAB BLOOD ORDERABLES Final Re sult [facility] [address] [place] [address], * MRSA/S aureus PCR, Nasal (04/25/2024 6:13 AM EST) MRSA PCR, Nasal NOT DETECTED NOT DETECTED 04/25/2024 3:29 PM EST [facility] S. aureus PCR, Nasal NOT DETECTED NOT DETECTED 04/25/2024 3:29 PM EST [facility] Swab Nasal structure / Unknown Non-Blood Collection / Unknown 04/25/2024 6:13 AM EST 04/25/2024 6:26 AM EST Narrative [facility] - 04/25/2024 3:29 PM EST [facility] Received Date: us Natalio Lara MD LAB BODY FLUIDS AND STOOLS OR DERABLES Final Result Performing Organization Address City/[facility]/ZIP Co de Phone Number [facility] [address] [facility] 3rd Floor, [place] [address], [place] [phone] [facility] [address] [facility] 3rd Floor, [place] [address], [place] [phone] * [place] Top, Urine (04/25/2024 6:10 AM EST) Pathologist [facility] [place] Extra Tube Hold for add-ons. 04/25/2024 11:05 AM EST [facility] Comment:Auto resulted. Urine Urine specimen collection, clean catch / Unknown Non-Blood Collection / Unknown 04/25/2024 6:10 AM EST 04/25/2024 6:26 AM EST us Natalio Lara MD LAB URINE ORDERABLES Final Re sult Performing Organization Address City/[facility]/ZIP Co de Phone Number [employer] CLINICAL PATHOLOGY LABORATORY [address] [place] [address], [place] * (ABNORMAL) Urinalysis W/Reflex to Microscopic & Culture (04/25/2024 6:10 AM EST) Color, Urine Deann(A) Colorless, Light Yellow, Yellow, Dark Yellow 04/25/2024 6:39 AM EST [facility] Clarity, Urine Clear Clear 04/25/2024 6:39 AM EST [facility] Specific Adrian, Urine 1.029 1.005 - 1.030 04/25/2024 6:39 AM EST [facility] pH, Urine 5.0 4.6 - 8.0 04/25/2024 6:39 AM EST [facility] Protein, Urine 1+(A) Negative 04/25/2024 6:39 AM EST [facility] Glucose, Urine Negative Negative 04/25/2024 6:39 AM EST [facility] Ketones, Urine Negative Negative 04/25/2024 6:39 AM EST [facility] Bilirubin, Urine Negative Negative 04/25/2024 6:39 AM EST [facility] Blood, Urine 1+(A) Negative 04/25/2024 6:39 AM EST [facility] Nitrite, Urine Negative Negative 04/25/2024 6:39 AM EST [facility] Urobilinogen, Urine Normal Normal 04/25/2024 6:39 AM EST [facility] Leukocyte Esterase, Urine Negative Negative 04/25/2024 6:39 AM EST [facility] WBC, Urine 2 0 - 2 /HPF 04/25/2024 6:39 AM EST [facility] RBC, Urine 1 0 - 2 /HPF 04/25/2024 6:39 AM EST [facility] Hyaline Casts, Urine 1 0 - 2 /LPF 04/25/2024 6:39 AM EST [facility] Squamous Epithelial Cells, Urine <1 /HPF 04/25/2024 6:39 AM EST [facility] Bacteria, Urine None None /HPF /HPF 04/25/2024 6:39 AM EST [facility] Urine Urine specimen collection, clean catch / Unknown Non-Blood Collection / Unknown 04/25/2024 6:10 AM EST 04/25/2024 6:26 AM EST us Natalio Lara MD LAB URINE ORDERABLES Final Re sult [facility] [employer] [facility] [employer] [facility] CL[facility]ICAL PATHOLOGY LABORATORY [address] [place] [address], [place] * (ABNORMAL) Hepatic function panel (04/25/2024 6:09 AM EST) Total Protein 6.4 6.0 - 8.0 g/dL 04/25/2024 6:59 AM EST [facility] Albumin 3.2(L) 3.5 - 5.2 g/dL 04/25/2024 6:59 AM EST [facility] Globulin, Total 3.2 2.1 - 4.2 g/dL 04/25/2024 6:59 AM EST [facility] Bilirubin, Total 3.0(H) 0.2 - 1.2 mg/dL 04/25/2024 6:59 AM EST [facility] Bilirubin, Direct 0.9(H) <=0.4 mg/dL 04/25/2024 6:59 AM EST [facility] Alkaline Phosphatase 92 35 - 129 U/L 04/25/2024 6:59 AM EST [facility] AST 39 10 - 40 U/L 04/25/2024 6:59 AM EST [facility] ALT 24 10 - 40 U/L 04/25/2024 6:59 AM EST [facility] Bilirubin, Indirect 2.10(H) <=0.70 mg/dL 04/25/2024 6:59 AM EST [facility] A/G Ratio 1.0(L) 1.5 - 3.0 04/25/2024 6:59 AM EST [facility] Blood Structure of peripheral vein / Unknown Venipuncture / Unknown 04/25/2024 6:09 AM EST 04/25/2024 6:28 AM EST us Rachel Murray MD LAB BLOOD ORDERABLES Final Resul t [facility] [employer] CLINICAL PATHOLOGY LABORATORY [address] [place] [address], * (ABNORMAL) Protime-INR (04/25/2024 6:09 AM EST) PT 17.1(H) 9.6 - 12.4 Seconds 04/25/2024 6:45 AM EST [facility] INR 1.6 0.9 - 1.1 04/25/2024 6:45 AM EST [facility] LAB[facility] Comment:The optimal therapeu tic INR range for patients treated with Vitamin K antagonists (VKAS, e.g., Warfarin) is 2.0 to 3.5. Discuss the desired range with your doctor/care team. Blood Structure of peripheral vein / Unknown Venipuncture / Unknown 04/25/2024 6:09 AM EST 04/25/2024 6:28 AM EST us Rachel Murray MD LAB BLOOD ORDERABLES Final Resul t [facility] [employer] [facility] CLINICAL PATHOLOGY LABORATORY [address] [place] [address], * (ABNORMAL) CBC Auto Differential (04/25/2024 6:09 AM EST) WBC 14.1(H) 3.8 - 10.8 10*3/uL 04/25/2024 6:38 AM EST [facility] RBC 4.16(L) 4.20 - 5.80 10*6/uL 04/25/2024 6:38 AM EST [facility] Hemoglobin 13.1(L) 13.2 - 17.1 g/dL 04/25/2024 6:38 AM EST [facility] Hematocrit 38.7 38.5 - 50.0 % 04/25/2024 6:38 AM EST [facility] MCV 93.0 80.0 - 100.0 fL 04/25/2024 6:38 AM EST [facility] MCH 31.5 27.0 - [...] % 0.8 % 04/25/2024 6:38 AM EST [facility] Neutrophil # 10.77(H) 1.50 - 7.80 10*3/uL 04/25/2024 6:38 AM EST [facility] Immature Grans # 0.07(H) <=0.03 10*3/uL 04/25/2024 6:38 AM EST [facility] Lymphocyte # 1.30 0.85 - 3.90 10*3/uL 04/25/2024 6:38 AM EST [facility] Monocyte # 1.80(H) 0.20 - 0.95 10*3/uL 04/25/2024 6:38 AM EST [facility] Eosinophil # <0.03 0.02 - 0.50 10*3/uL 04/25/2024 6:38 AM EST [facility] Basophil # 0.10 0.00 - 0.20 10*3/uL 04/25/2024 6:38 AM EST [facility] nRBC % 0.0 /100 WBCs 04/25/2024 6:38 AM EST [facility] nRBC # <0.01 <0.01 10*3/uL 04/25/2024 6:38 AM EST [facility] CLINICAL PATHOLOGY LABORATORY Blood Structure of peripheral vein / Unknown Venipuncture / Unknown 04/25/2024 6:09 AM EST 04/25/2024 6:28 AM EST us Rachel Murray MD LAB BLOOD ORDERABLES Final Resul t Performing Organization Address City/[facility]/ZIP Co de Phone Number [facility] [employer] [facility] CLINICAL PATHOLOGY LABORATORY [address] [place] [address], * Magnesium (04/25/2024 6:09 AM EST) MG 2.0 1.6 - 2.4 mg/dL 04/25/2024 6:59 AM EST [facility] Blood Structure of peripheral vein / Unknown Venipuncture / Unknown 04/25/2024 6:09 AM EST 04/25/2024 6:28 AM EST us Rachel Murray MD LAB BLOOD ORDERABLES Final Resul t [facility] [employer] [facility] CL[facility]ICAL PATHOLOGY LABORATORY [address] [place] [address], * (ABNORMAL) Basic Metabolic Panel (04/25/2024 6:09 AM EST) NA 130(L) 135 - 145 mmol/L 04/25/2024 6:59 AM EST [facility] K 4.2 3.5 - 5.3 mmol/L 04/25/2024 6:59 AM EST [facility] Cl 100 98 - 107 mmol/L 04/25/2024 6:59 AM EST [facility] CO2 17(L) 22 - 32 mmol/L 04/25/2024 6:59 AM EST [facility] BUN 24(H) 7 - 23 mg/dL 04/25/2024 6:59 AM EST [facility] Creatinine 1.05 0.60 - 1.30 mg/dL 04/25/2024 6:59 AM EST [facility] Glucose 132(H) 65 - 99 mg/dL 04/25/2024 6:59 AM EST [facility] Calcium 8.6 8.6 - 10.5 mg/dL 04/25/2024 6:59 AM EST [facility] Anion Gap 13 5 - 15 04/25/2024 6:59 AM EST [facility] eGFR 79 >=60 mL/min/1. 73m2 04/25/2024 6:59 AM EST [facility] Comment:The estimated glomer ular [...] MD LAB BLOOD ORDERABLES Final Resul t [facility] [employer] CLINICAL PATHOLOGY LABORATORY [address] [place] [id number], * (ABNORMAL) Lactic Acid, Plasma (04/24/2024 11:39 PM EST) Lactic Acid 2.4(H) 0.5 - 1.9 mmol/L 04/25/2024 12:48 AM EST [facility]Fan[facility]eroCOASPI[facility] Bever[facility] CLINICAL PATHOLOGY LABORATORY Comment: Sepsis Screening: Initial [...] ORDERABLES Final Re sult Performing Organization Address [facility] de Phone Number [facility]FanHeroCOASPIRE Bever[facility] CLINICAL PATHOLOGY LABORATORY [address] [place] [phone], [place] * X-Ray Chest 1 View (04/24/2024 [...] obtain the completed interpretation. ? Workstation ID: [id number] Narrative 04/26/2024 3:32 PM EST COMPARISON: ??04/11/2024 FINDINGS AND Resulting Agency Comment [id number] Procedure Note Jeyson Silva MD - 04/26/2024 [...] possible to obtain thecompleted interpretation. Workstation ID: [id number] Natalio Lara MD IMG XR PROCEDURES Final Resul t * (ABNORMAL) Lactic Acid, Plasma (04/24/2024 9:18 PM EST) Lactic Acid 3.3(H) 0.5 - 1.9 mmol/L 04/24/2024 10:13 PM EST [facility] Comment: Sepsis Screening: Initial Lactate Level >2.0 mmol/L - Repeat Lactate Level within 3 hours. Initial Lactate Level >4.0 mmol/L - Repeat Lactate Level within 3 hours, Initiate Septic Shock Protocol. Blood Structure of peripheral vein / Unknown Venipuncture / Unknown 04/24/2024 9:18 PM EST 04/24/2024 9:46 PM EST Natalio Lara MD LAB BLOOD ORDERABLES Final Re sult [facility] [employer] [facility] CLINICAL PATHOLOGY LABORATORY [address] [place] [address], * Blood Culture (04/24/2024 6:13 PM EST) Culture No growth after 5 days 04/29/2024 10:25 PM EST [facility] Blood Structure of peripheral vein / Unknown Venipuncture / Unknown 04/24/2024 6:13 PM EST 04/24/2024 6:35 PM EST Narrative [facility] - 04/29/2024 10:25 PM EST [facility] Received Date: MICRO NUMBER: [id number] SPECIMEN QUALITY: Suboptimal SOURCE: BLOOD VENOUS, PERIPHERAL STATUS: FINAL COMMENT: Aerobic and anaerobic bottle received. Inspection of blood culture bottles indicates that an inadequate volume of blood may have been collected for the detection of sepsis. Dana Samuels MD LAB MICROBIOLOGY - GENERAL ORDERABLES Final Result Performing Organization Address City/[facility]/ZIP Co de Phone Number [facility] [address], [place] [address], [facility] [address], [place] [address], * Blood Culture (04/24/2024 6:13 PM EST) Culture No growth after 5 days 04/29/2024 10:19 PM EST [facility] Blood Structure of peripheral vein / Unknown Venipuncture / Unknown 04/24/2024 6:13 PM EST 04/24/2024 6:35 PM EST Narrative [facility] - 04/29/2024 10:19 PM EST [facility] Received Date: MICRO NUMBER: [id number] SPECIMEN QUALITY: Suboptimal SOURCE: BLOOD VENOUS, PERIPHERAL STATUS: FINAL COMMENT: Aerobic and anaerobic bottle received. Inspection of blood culture bottles indicates that an inadequate volume of blood may have been collected for the detection of sepsis. Dana Samuels MD LAB MICROBIOLOGY - GENERAL ORDERABLES Final Result Performing Organization Address [facility] Co de Phone Number [facility] [address], [place] [address], [employer] [address], [place] [address], documented in this encounter Visit Diagnoses Not on filedocumented in this encounter Admitting Diagnoses Diagnosis SBP [...] (on the numeric pain scale), Starting on Sun04/24/24 at 2046, Until Sun05/03/24 at 1854, To be given in conjunction with other pain medications if ordered as part of multi-modal therapy Given 05/03/2024 1:33 PM EST 650 mg Given 05/03/2024 3:50 AM EST 650 mg Given 05/01/2024 5:40 PM EST 650 mg enoxaparin (LOVENOX) subcutaneous injection 40 mg 40 mg, subcutaneous, Daily, First dose on Sun04/24/24 at 2050, Until Discontinued, On hold since Sun04/28/2024 at 1557 until manually unheld Given 04/27/2024 5:57 PM EST 40 mg Left Lower Abdomen Given 04/26/2024 4:35 PM EST 40 mg Le ft Lower Abdomen Given 04/25/2024 6:21 PM EST 40 mg Ri ght Lower Abdomen furosemide (LASIX) tablet 40 mg 40 mg, oral, Daily, First dose on Sun04/30/24 at 0900, Until Discontinued Given 05/03/2024 9:06 AM EST 40 mg Given 05/01/2024 8:28 AM EST 40 mg Given 04/30/2024 9:13 AM EST 40 mg iohexoL (OMNIPAQUE) 300 mg iodine/mL injection As needed, Starting on Sun05/02/24 at 1626, Until Sun05/02/24 at 1643, Intra-op Given 05/02/2024 4:26 PM EST 50 mL lactulose 20 gram/30 mL oral solution 20 g 20 g, oral, 3 times daily, First dose on Sun04/24/24 at 2245, Until Discontinued, Titrate for 3-5 BM daily Given 05/03/2024 9:06 AM EST 20 g Given 05/01/2024 8:28 AM EST 20 g Given 04/30/2024 1:37 PM EST 20 g midodrine (PROAMATINE) tablet 15 mg 15 mg, oral, Every 8 hours scheduled, First dose on Sun04/24/24 at 2245, 255 doses, Last dose on [...] for a final concentration of 0.04 mg/mL. rifAXIMin (XIFAXAN) tablet 550 mg 550 mg, oral, Every 12 hours scheduled, First dose on Sun04/24/24 at 2245, 730 doses, Last dose on Sun04/24/25 at 1200 Given 05/03/2024 12:37 PM EST 550 mg Given 05/03/2024 12:20 AM EST 550 mg Given 05/01/2024 10:31 PM EST 550 mg senna (SENOKOT) tablet 17.2 mg 17.2 mg, oral, Nightly PRN, constipation, no bowel movement x 24 hours, Starting on Shirin 04/24/24 at 2045, Until 05/03/24 at 1854, . sodium chloride 0.9% flush 2.5-10 mL 2.5-10 mL, intravenous, See admin instructions, Starting on Shirin 04/24/24 at 2043, Until 05/03/24 at 1854, Flush each lumen [...] Sun04/29/24 at 1332, Until 05/03/24 at 1854 documented in this encounter Active and Recently [...] RN) 0811 (New Bag/Syringe - Provider: Amy Lipscomb, LATOSHA)0900 (Stopped - Provider: Alem Plascencia RN)1209 (MAY Hold - Provider: Automatic Transfer Provider - Reason: Procedure/Surgery)184 0 (MAR Unhold - Provider: Automatic Transfer Provider) 0907 (New Bag/Syringe - Provider: Sarah Adams, LATOSHA) enoxaparin (LOVENOX) subcutaneous injection 40 mg 40 [...] 2 (MAY Unhold - Provider: Amy Lipscomb RN)2042 (Not Given - Provider: Diana White RN [...] Every 8 hours scheduled, First dose on Sun04/24/24 at 2245, 255 doses, Last dose on Sun07/18/24 at 1400 0534 (Given - Provider: Heather Hernandez RN)1245 (Given - Provider: Desirae Olea, LATOSHA)2031 (Given - Provider: Alem Brambila RN) 0559 (Given - Provider: Alem Brambila RN)1208 (MAR Hold - Provider: Automatic Transfer Provider - Reason: Procedure/Surgery)140 0 (Dose Auto Held - Provider: Automatic Transfer Provider)1832 (MAR Unhold - Provider: Amy Lipscomb RN)2042 (Given - Provider: Diana White RN) 0513 (Given - Provider: Diana White RN)1237 (Given - Provider: Sarah Adams, RN) potassium chloride ER (KLOR-CON M-10) tablet 40 mEq (COMPLETED) 40 mEq, oral, Once, On Sun05/02/24 at 0730, 1 dose, Do not crush. 0811 (Given - Provider: Amy Lipscomb RN) potassium chloride ER (KLOR-CON M-10) tablet 40 mEq (COMPLETED) 40 mEq, oral, Once, On Sun05/03/24 at 0815, 1 dose, Do not crush. 0906 (Given - Provider: Sarah Adams, LATOSHA) rifAXIMin (XIFAXAN) tablet 550 mg 550 mg, oral, Every 12 hours scheduled, First dose on Sun04/24/24 at 2245, 730 doses, Last dose on Sun04/24/25 at 1200 0000 (Not Given - Provider: Heather Hernandez RN - Reason: Patient/family refused)1245 (Given - Provider: Desirae Olea, LATOSHA)2231 (Given - Provider: Alem Brambila RN) 1200 (Not Given - Provider: Amy Lipscomb RN - Reason: Procedure/Surgery)120 9 (MAR Hold - Provider: Automatic Transfer Provider - Reason: Procedure/Surgery)183 2 (MAY Unhold - Provider: Amy Lipscomb RN) 0020 (Given - Provider: Diana White RN)1237 (Given - Provider: Sarah Adams RN) sodium chloride 0.9% flush 2.5-10 mL(Linked [...] comments section. 0828 (Given - Provider: Desirae Olea RN)2018 (Given - Provider: Alem Brambila RN) 0812 (Given - Provider: Amy Lipscomb RN)1208 (MAY Hold - Provider: Automatic Transfer Provider - Reason: Procedure/Surgery)183 2 (MAY Unhold - Provider: Amy Lipscomb RN)2045 (Given - Provider: Diana White RN) 0907 (Given - Provider: Sarah Adams, [...] Desirae Olea RN)1740 (Given - Provider: Desirae Olea RN) 1208 (MAY Hold - Provider: Automatic Transfer [...] Respiratory Distress or Over Sedation, Starting on Tu04/29/24 at 1824, 3 doses, Until 05/03/24 at [...] PRN, opioid reversal, respiratory depression, Starting on 04/28/24 at 0500, Until 05/03/24 at 1854, Complete opioid reversal for respiratory rate less than 10 (POSS greater than 2 or RASS less than 0). Notify LIP if naloxone is administered to evaluate the patient to determine if additional naloxone doses are needed and to reevaluate the patient's opioid orders. 1209 ([facility] Hold - Provider: Automatic Transfer Provider - Reason: Procedure/Surgery)18 32 ([facility] Unhold - Provider: Amy Lipscomb RN) naloxone 0.04 mg injection 0.04 mg, intravenous, Every 3 minutes as needed, opioid reversal, respiratory depression, Starting on 04/28/24 at 0500, Until 05/03/24 at 1854, Partial [...] final concentration of 0.04 mg/mL. 1209 ([facility] Hold - Provider: Automatic Transfer Provider - Reason: Procedure/Surgery)18 32 ([facility] Unhold - Provider: Amy Lipscomb RN) senna (SENOKOT) tablet 17.2 mg 17.2 mg, oral, Nightly PRN, constipation, no bowel movement x 24 hours, Starting on Shirin 04/24/24 at 2046, Until 05/03/24 at 1854, . 1208 ([facility] Hold - Provider: Automatic Transfer Provider - Reason: Procedure/Surgery)18 32 ([facility] Unhold - Provider: Amy Lipscomb RN) sodium chloride 0.9% flush 3-10 mL 3-10 mL, intravenous, PRN Flush, line care, Flush peripheral line with a minimum of 3 mL, before and after use or every 12 hours., Starting on Sun04/29/24 at 1332, Until 05/03/24 at 1854 1209 (MAY Hold - Provider: Automatic Transfer Provider - Reason: Procedure/Surgery)18 32 (MAY Unhold - Provider: Amy Lipscomb RN) Linked [...] mcg documented in this encounter Care Teams [employer] Consultant Relationship Specialty Start Date End Date Jade Harper [address] [place] [address] dr Charly Parks, MAGALIE [id number] PCP - General Internal Medicine 03/06/24 documented as of this encounter
--- OUTSIDE RECORDS SUMMARY | 2024-05-28 11:40 | XMS_ITS | Encounter Summary ---
Author Organization [facility] Address [address] [place] [address] Care Team Providers Care Master Glazier Name Role Phone Jade Harper Primary Care Provider [phone] Reason for Visit * Reason Onset Date Comments Prior Authorization 04/25/2024 Encounter Details Date Type Department Care Team (Late st Contact Info) Description 04/25/2024 Telephone [facility] Building [address] [place] [address] [phone] Alondra Cohn CPhT Prior Authorization Social History Tobacco Use Types Packs/Day Years Used Date Smoking Tobacco: Never Smokeless Tobacco: Never Alcohol Use Standard Drinks/Week Comments Not Currently 8 (1 standard drink = 0.6 oz pur e alcohol) sober since 11/2023 [facility] Utilities Answer Date Recorded In the past 12 months has [employer] electric, gas, oil, or water [employer] threatened to shut off services in your [...] encounter Miscellaneous Notes * Telephone Encounter - Corrine Underwood CPhT - 04/29/2024 1:34 PM EST Images from the original note were not included. PA Approved for XIFAXAN TABLET 550 MG, #60/30, through Rx Benefits [PA # [id number] ]. Effective 04/28/2024-04/27/2025 MAY fill with [facility] Copay $50 * Telephone Encounter - Corrine Underwood CPhT - 04/28/2024 9:16 AM EST submitted on RXB prompt PA-Prior Auth (EOC) ID: [id number] with progress notes TAT 24-72 hours documented in this encounter Plan of Treatment Upcoming Encounters Date Type Department Care Team (Latest Contact Info) Description 5 10:30 AM EST Appointment [facility] Interventional Radiology [address] [place] [address] Mike Rey i, MD [address] [place] [address] 05407 5 10:30 AM EDT Appointment [facility] Interventional Radiology [address] [place] [address] Mike Rey i, MD [address] [place] [address] 5 2:00 PM EDT Pre-Admission Testing [facility] Pre Surgical [address] [address] 5 10:00 AM EDT Appointment [facility] Interventional Radiology [address] [place] [address] Mike Rey i, MD [address] [place] [address] 5 10:30 AM EDT Appointment [facility] Interventional Radiology [address] [place] [address] Mike Rey i, MD [address] [place] [address] 90182 5 9:00 AM EDT Pre-Admission Testing [facility] Surgical [address] [address] 5 10:30 AM EDT Appointment [facility] Interventional Radiology [address] [place] [address] Mike Rey i, MD [address] [place] [address] 67[address] 5 10:30 AM EDT Appointment [facility] Interventional Radiology [address] [place] [address] Mike Rey i, MD [address] [place] [address] 14940 5 8:30 AM EDT Hospital Encounter [facility] Operating Room [address] [place] [address] Rachel Murray MD [address] [place] [address] 5 8:30 AM EDT - 5 9:30 AM EDT Surgery [facility] Operating Room [address] [place] [address] Rachel Murray MD [address] [place] [address] ENDOSCOPIC RETROGRADE CHOLANGIOPANCREATOGRAPHY WITH REMOVAL OF FOREIGN BODY(S)/STENT(S)/PANCREATIC DUCT(S) WITH POSSIBLE MODERATE SEDATION [18061 (CPT??)] 5 10:30 AM EDT Appointment [facility] Interventional Radiology [address] [place] [address] Mike Rey i, MD [address] [place] [address] 49063 5 4:30 PM EDT Follow-Up [facility] Liver Transplant Services [address] [place] [address] Mike Rey i, MD [address] [place] [address] 77121 5 10:30 AM EDT Appointment [facility] Interventional Radiology [address] [place] [address] Mike Rey i, MD [address] [place] [address] 60394 5 10:30 AM EDT Appointment [facility] Interventional Radiology [address] [place] [address] Mike Rey i, MD [address] [place] [address] 03749 5 10:30 AM EDT Appointment [facility] Interventional Radiology [address] [place] [address] 289[address] Mike Rey i, MD [address] [place] [address] 76886 5 10:30 AM EDT Appointment [facility] Interventional Radiology [address] [place] [address] Mike Rey i, MD [address] [place] [address] 05770 5 10:30 AM EDT Appointment [facility] Interventional Radiology [address] [place] [address] Mike Rey i, MD [address] [place] [address] 22747 5 10:30 AM EDT Appointment [facility] Interventional Radiology [address] [place] [address] Mike Rey i, MD [address] [place] [address] 60092 5 10:30 AM EDT Appointment [facility] Interventional Radiology [address] [place] [address] Mike Rey i, MD [address] [place] [address] 01321 5 10:30 AM EDT Appointment [facility] Interventional Radiology [address] [place] [address] Mike Rey i, MD [address] [place] [address] 66352 5 10:30 AM EDT Appointment [facility] Interventional Radiology [address] [place] [address] Mike Rey i, MD [address] [place] [address] 86046 5 10:30 AM EDT Appointment [facility] Interventional Radiology [address] [place] [address] Miek Rey i, MD [address] [place] [address] 7[address]64 5 10:30 AM EDT Appointment [facility] Interventional Radiology [address] [place] [address] Mike Rey i, MD [address] [place] [address] Scheduled Procedures Name Priority Associated Diagnoses Date/Ti me ENDOSCOPIC RETROGRADE CHOLANGIOPANCREATOGRAPHY WITH REMOVAL OF FOREIGN BODY(S)/STENT(S)/PANCREATIC DUCT(S) WITH POSSIBLE MODERATE SEDATION Encounter for removal of biliary stent 07/04/2024 8:30 AM EDT LAPAROSCOPIC CHOLECYSTECTOMY Acute cholecystitis documented as of this encounter Visit Diagnoses Not on filedocumented in this encounter Care Teams Master Glazier Relationship Specialty Start Date End Date Jade Harper [address] [place] [address] [place] [address] PCP - General Internal Medicine 03/06/24 documented as of this encounter
--- OUTSIDE RECORDS SUMMARY | 2024-05-28 11:41 | XMS_ITS | Encounter Summary ---
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 Transplant Services [address] [address] social media marketing manager Social History Tobacco Use Types Packs/Day Years Used Date Smoking Tobacco: Never Smokeless Tobacco: Never Alcohol Use Standard Drinks/Week Comments Not Currently 8 (1 standard drink = 0.6 oz pur e alcohol) sober since 11/2023 [facility] Utilities Answer Date Recorded In the past 12 months has [employer], gas, oil, or water company threatened to [...] encounter Miscellaneous Notes * Telephone Encounter - Lisa HuffSoraya Limaerson, [facility] - 05/22/2024 11:17 AM EST Pre -liver transplant SW follow up note: Transplant SW called patient's Sana to check in and offer emotional support. reports patient is very frustrated with how he feels and really wants the shay tube out . states patientis also frustrated with no longer being able to work or be physically active as he has always been. states it is hard for patient to be patient and it is hard for him to deal with the loss of control that his illness brings. reports patient also has been terminated from his job. Empathic listening and supportive counseling provided. We talked about importance of self care. states she is has to work to meet all their financial obligations and is trying to take care of him at home.We discussed little strategies for self care. In terms of other supports, states patient's brother goes over on Wednesdays and which is 's long days at work. Brother comes over anddrains his shay bag and provides support. states patient has a visiting nurse that comes once a week and a physical therapist that comesonce a week. states she has applied for Social Security disability for patient. Transplant SW talked with about the Virtual liver transplant support group and a transplant caregiver support group. Also talked about whether patient would be open to mental health counseling or a support group. states she has spoken to patient about this but he has not wanted to participate. Transplant SW emailed transplant SW contact info for ongoing emotional support as needed and also emailed information regarding the support groups. documented in this encounter Plan of Treatment Upcoming Encounters Date Type Department Care Team (Latest Contact Info) Description 5 10:30 AM EST Appointment [facility] Interventional Radiology [address] [place] [address] Mike Rey i, MD [address] [place] [address] 5 10:30 AM EDT Appointment [facility] Interventional Radiology [address] [place] [address] Mike Rey i, MD [address] [place] [address] 91627 5 2:00 PM EDT Pre-Admission Testing [facility] Pre Surgical Center [address] [place] [address] 5 10:00 AM EDT Appointment [facility] Interventional Radiology [address] [place] [address] Mike Rey i, MD [address] [place] [address] 02547 5 10:30 AM EDT Appointment [facility] Interventional Radiology [address] [place] [address] Mike Rey i, MD [address] [place] [address] 30474 5 9:00 AM EDT Pre-Admission Testing [facility] Pre Surgical Center [address] [facility] 3rd [place] [address] 5 10:30 AM EDT Appointment [facility] Interventional Radiology [address] [place] [address] Mike Rey i, MD [address] [place] [address] 5 10:30 AM EDT Appointment [facility] Interventional Radiology [address] [place] [address] Mike Rey i, MD [address] [place] [address] 5 8:30 AM EDT Hospital Encounter [facility] Operating Room [address] [place] [address] Rachel Murray MD [address] [place] [address] 29696 5 8:30 AM EDT - 5 9:30 AM EDT Surgery [facility] Operating Room [address] [place] [address] Rachel Murray MD [address] [place] [address] ENDOSCOPIC RETROGRADE CHOLANGIOPANCREATOGRAPHY WITH REMOVAL OF FOREIGN BODY(S)/STENT(S)/PANCREATIC DUCT(S) WITH POSSIBLE MODERATE SEDATION [47746 (CPT??)] 5 10:30 AM EDT Appointment [facility] Interventional Radiology [address] [place] [address] Mike Rey i, MD [address] [place] [address] 5 4:30 PM EDT Follow-Up [facility] Liver Transplant Services [address] [place] [address] Mike Rey i, MD [address] [place] [address] 31701 5 10:30 AM EDT Appointment [facility] Interventional Radiology [address] [place] [address] Mike Rey i, MD [address] [place] [address] 48386 5 10:30 AM EDT Appointment [facility] Interventional Radiology [address] [place] [address] Mike Rey i, MD [address] [place] [address] 33077 5 10:30 AM EDT Appointment [facility] Interventional Radiology [address] [place] [address]455 Mike Rey i, MD [address] [place] [address] 98512 5 10:30 AM EDT Appointment [facility] Interventional Radiology [address] [place] [address] 51922 Mike Rey i, MD [address] [place] [address] 37639 5 10:30 AM EDT Appointment [facility] Interventional Radiology [address] [place] [address] 25040 Mike Rey i, MD [address] [place] [address] 5 10:30 AM EDT Appointment [facility] Interventional Radiology [address] [place] [address] 09702 Mike Rey i, MD [address] [place] [address] 74220 5 10:30 AM EDT Appointment [facility] Interventional Radiology [address] [place] [address] 95138 Mike Rey i, MD [address] [place] [address] 42363 5 10:30 AM EDT Appointment [facility] Interventional Radiology [address] [place] [address] 9[address]10 Mike Rey i, MD [address] [place] [address] 53041 5 10:30 AM EDT Appointment [facility] Interventional Radiology [address] [place] [address] 31949 Mike Rey i, MD [address] [place] [address] 38809 5 10:30 AM EDT Appointment [facility] Interventional Radiology [address] [place] [address] 95987 Mike Rey i, MD [address] [place] [address] 96467 5 10:30 AM EDT Appointment [facility] Interventional Radiology [address] [place] [address] 28271 Mike Rey i, MD [address] [place] [address] 0[address] Scheduled Procedures Name Priority Associated Diagnoses Date/Ti me ENDOSCOPIC RETROGRADE CHOLANGIOPANCREATOGRAPHY WITH REMOVAL OF FOREIGN BODY(S)/STENT(S)/PANCREATIC DUCT(S) WITH POSSIBLE MODERATE SEDATION Encounter for removal of biliary stent 07/04/2024 8:30 AM EDT LAPAROSCOPIC CHOLECYSTECTOMY Acute cholecystitis documented as of this encounter Visit Diagnoses Not on filedocumented in this encounter Care Teams Mechanical Equipment Test Engineer Relationship Specialty Start Date End Date Jade Harper [address] [place] [address] [place] [address] PCP - General Internal Medicine 03/06/24 documented as of this encounter
--- OUTSIDE RECORDS SUMMARY | 2024-05-28 11:41 | XMS_ITS ---
Author Organization [facility] Address [address] [place] [phone] Care Team Providers Care Composition Weatherboard Applier Name Role Phone Jade Harper MD Primary Care Provider Santos Almeida Jr REASON FOR VISIT Patient presents today for ascites Encounters Encounter Location Date Provider Diagnosis [facility] [address] [place] [phone] 03/31/2024 Santos Khan Jr Plan Of Treatment No Information Progress Notes * DARCIE CAMACHO CDOB:1960 (63 yo M)Acc No.[id number]:03/31/2024 Progress Notes Patient:?DARCIE CAMACHO Provider:?Santos Khan MD :1960???Age:63 Y???Sex:Male Jose e:03/31/2024 Address:[facility] [id number] Pcp:Jade Harper MD Subjective: * Chief Complaints: * ???1. Patient presents today for ascites. * Medical History:? Objective: * Vitals:? Assessment: Plan: * Treatment: * * The named appointment provid er may or may not be the originator of this progress note, and it is not deemed complete until electronically signed by the appointment provider. Sign off status: Pending * Provider:?Santos Khan MD Date:?0 03/31/2024 Generated for Printi ng/Faxing/eTransmitting on:?05/28/2024 11:40 AM EST
--- OUTSIDE RECORDS SUMMARY | 2024-05-28 11:41 | XMS_ITS | Encounter Summary ---
Author Organization [facility] Address [address] [place] [address] Care Team Providers Care Atm Technician Name Role Phone Jade Harper Primary Care Provider [phone] Encounter Details Date Type Department Care Team (Late st Contact Info) Description 05/16/2024 Orders Only [facility] Liver Transplant Services [address] [place] [address] Mike Low MD [address] [place], [place] [phone] Alcoholic cirrhosis of liver with ascites (CMS/HCC) (HCC) (Primary Dx) Social History Tobacco Use Types Packs/Day Years Used Date Smoking Tobacco: Never Smokeless Tobacco: Never Alcohol Use Standard Drinks/Week Comments Not Currently 8 (1 standard drink = 0.6 oz pur e alcohol) sober since 11/2023 [facility] Utilities Answer Date Recorded In the past [...] Info) Description 5 10:30 AM EST Appointment [facility] Interventional Radiology [address] [place] [address] Mike Rey i, MD [address] [place] [address] 5 10:30 AM EDT Appointment [facility] Interventional Radiology [address] [place] [address] Mike Rey i, MD [address] [place] [address]78 5 2:00 PM EDT Pre-Admission Testing [facility] Pre Surgical Center [address] [facility] 3rd [place] [address] 5 10:00 AM EDT Appointment [facility] Interventional Radiology [address] [place] [address] Mike Rey i, MD [address] [place] [address] 5 10:30 AM EDT Appointment [facility] Interventional Radiology [address] [place] [address] Mike Rey i, MD [address] [place] [address] 5 9:00 AM EDT Pre-Admission Testing [facility] Pre Surgical Center [address] [facility] [address] [place] [address] 5 10:30 AM EDT Appointment [facility] Interventional Radiology [address] [place] [address] Mike Rey i, MD [address] [place] [address] 9[address] 5 10:30 AM EDT Appointment [facility] Interventional Radiology [address] [place] [address] Mike Rey i, MD [address] [place] [address] 5 8:30 AM EDT Hospital Encounter [facility] Operating Room [address] [place] [address] Rachel Murray MD [address] [place] [address] 5 8:30 AM EDT - 5 9:30 AM EDT Surgery [facility] Operating Room [address] [place] [address] Rachel Murray MD [address] [place] [address] ENDOSCOPIC RETROGRADE CHOLANGIOPANCREATOGRAPHY WITH REMOVAL OF FOREIGN BODY(S)/STENT(S)/PANCREATIC DUCT(S) WITH POSSIBLE MODERATE SEDATION [36557 (CPT??)] 5 10:30 AM EDT Appointment [facility] Interventional Radiology [address] [place] [address] Mike Rey i, MD [address] [place] [address] 89192 5 4:30 PM EDT Follow-Up [facility] Liver Transplant Services [address] [place] [address] Mike Rey i, MD [address] [place] [address] 19883 5 10:30 AM EDT Appointment [facility] Interventional Radiology [address] [place] [address] Mike Rey i, MD [address] [place] [address] 52595 5 10:30 AM EDT Appointment [facility] Interventional Radiology [address] [place] [address] Mike Rey i, MD [address] [place] [address] 22359 5 10:30 AM EDT Appointment [facility] Interventional Radiology [address] [place] [address] Mike Rey i, MD [address] [place] [address] 71365 5 10:30 AM EDT Appointment [facility] Interventional Radiology [address] [place] [address] 414[address] Mike Rey i, MD [address] [place] [address] 5 10:30 AM EDT Appointment [facility] Interventional Radiology [address] [place] [address] Mike Rey i, MD [address] [place] [address] 34390 5 10:30 AM EDT Appointment [facility] Interventional Radiology [address] [place] [address] Mike Rey i, MD [address] [place] [address] 45506 5 10:30 AM EDT Appointment [facility] Interventional Radiology [address] [place] [address] Mike Rey i, MD [address] [place] [address] 51243 5 10:30 AM EDT Appointment [facility] Interventional Radiology [address] [place] [address]47 Mike Rey i, MD [address] [place] [address] 70683 5 10:30 AM EDT Appointment [facility] Interventional Radiology [address] [place] [address] 725[address] Mike Rey i, MD [address] [place] [address] 20492 5 10:30 AM EDT Appointment [facility] Interventional Radiology [address] [place] [address] Mike Rey i, MD [address] [place] [address] 10:30 AM EDT Appointment [facility] Interventional Radiology [address] [place] [address] Mike Rey i, MD [address] [place] [address] Scheduled Orders Name Type Priority Associated Diagnoses Orde r Schedule Basic Metabolic Panel Lab Routine Alcoholic cirrhosis of liver with ascites (CMS/HCC) (HCC) Expected: 05/16/2024, Expires: 05/16/2025 Scheduled Procedures Name Priority Associated Diagnoses Date/Ti la ENDOSCOPIC RETROGRADE CHOLANGIOPANCREATOGRAPHY WITH REMOVAL OF FOREIGN BODY(S)/STENT(S)/PANCREATIC DUCT(S) WITH POSSIBLE MODERATE SEDATION Encounter for removal of biliary stent 07/04/2024 8:30 AM EDT LAPAROSCOPIC CHOLECYSTECTOMY Acute cholecystitis documented as of this encounter Visit Diagnoses Diagnosis Alcoholic cirrhosis of liver with ascites (CMS/HCC) (HCC)- Primary Encounter for removal of biliary stent documented in this encounter Care Teams Atm Technician Relationship Specialty Start Date End Date Jade Harper [address] [place] [address] [place] [address] PCP - General Internal Medicine 03/06/24 documented as of this encounter
--- OUTSIDE RECORDS SUMMARY | 2024-05-28 11:41 | XMS_ITS | Encounter Summary ---
Author Organization [facility] Address [address] [place] [address] Care Team Providers Care Patient Assessment Coordinator Name Role Phone Leroy Jennifervalente No Primary Care Provider [phone] Reason for Visit * Reason Comments ? SEPSIS * Auth/Cert (Routine) Specialty Diagnoses / Procedures Referred By Contac t Referred To Contact Diagnoses SBP (spontaneous bacterial peritonitis) ([facility]) TrA- SBP Referral ID Status Reason Start Date Expiration Date Visits Re quested Visits Authorized [id number] Encounter Details Date Type Department Care Team (Late st Contact Info) Description 04/29/2024 1:00 PM EST - 04/29/2024 2:00 PM EST Surgery [facility] Operating Room [address] [place] [id number] Rachel Murray MD [address] [place] [address] ENDOSCOPIC RETROGRADE CHOLANGIOPANCREATOGRAP HY, DIAGNOSTIC WITH POSSIBLE BRUSHING OR WASHING AND POSSIBLE MODERATE SEDATION [73628 (CPT??)] Social History Tobacco Use Types Packs/Day Years Used Date Smoking Tobacco: Never Smokeless Tobacco: Never Alcohol Use Standard Drinks/Week Comments Not Currently 8 (1 standard drink = 0.6 oz pur e alcohol) sober since 11/2023 [facility] Utilities Answer Date Recorded In the [...] Sign Reading Time Taken Comments Blood Pressure 106/62 04/29/2024 12:55 PM EST Pulse 91 04/29/2024 12:55 PM EST Temperature 36.9 ??C (98.4 ??F) 04/29/2024 12:[address] Respiratory Rate 20 04/29/2024 12:55 PM EST Oxygen Saturation 95% 04/29/2024 12:55 PM EST Inhaled Oxygen Concentration - - Weight 93 kg (205 lb) 04/29/2024 12:55 PM EST Height 180.3 cm (5' 11 ) 04/29/2024 12:55 PM EST Body Mass Index 28.59 04/29/2024 12:55 PM EST documented in this encounter Discharge Summaries * Alexei Lepe MD - 05/03/2024 11:58 AM EST Images from the original note were not included. DISCHARGE SUMMARY [facility] DISCHARGE INFORMATION: Date and Time of Admission: 04/24/2024 8:11 PM Date of Discharge: 05/03/24 DISCHARGE DIAGNOSIS: Problem List Active Problems * (Principal) SBP (spontaneous bacterial peritonitis) (HCC) Decompensated cirrhosis (HCC) Hyperlipidemia Hyponatremia Moderate protein-calorie malnutrition (CMS/HCC) Sepsis (HCC) ATTENDING PHYSICIAN ON DISCHARGE: Attending Provider: Delmis Joseph MD [phone] FOLLOW-UPS AND SCHEDULED APPOINTMENTS: Future Appointments Date Time Provider Department Center 07/08/2024 4:30 PM Mike Low MD [facility] CONTACT INFORMATION FOR FOLLOW-UP [address] [address] Next Steps: Follow up PENDING LABS: . Ordered CULTURE, FLUID (Routine ) 04/29/24 0970 DISCHARGE MEDICATIONS: Discharge Medication list: Discharge Medications [...] had a percutaneous drain placed 02/01/24 at [facility]- at the time due to new finding [...] Procedure Laterality Date IR CHOLECYSTOSTOMY TUBE PLACEMENT OK ERCP DX COLLECTION SPECIMEN BRUSHING/WASHING N/A 04/29/2024 Procedure: ENDOSCOPIC RETROGRADE CHOLANGIOPANCREATOGRAPHY, DIAGNOSTIC WITH POSSIBLE BRUSHING OR WASHING AND POSSIBLE MODERATE SEDATION; Surgeon: Rachel Murray MD; Location: [facility] GI OR; Service: Gastroenterology TOE AMPUTATION [...] diet. On discharge: - Follow-up with outpatient machinery cleaner, has appointment on 07/08/2024. Encouraged patient to try to schedule for sooner follow-up - Will need ERCP in about 2 months for stent removal and re-attempt at adequate drainage (05/02). Will also need to discuss potential TIPS procedure with outpatient machinery cleaner - Lasix 20 mg daily and spironolactone [...] to obtain the completed interpretation. Workstation ID: [id number] X-Ray Chest 1 View Result Date: 04/26/2024 [...] to obtain the completed interpretation. Workstation ID: [id number] CT 3 Phase Liver Mass With Pelvis [...] to obtain the completed interpretation. Workstation ID: [id number] IR Paracentesis Diagnostic and Therapeutic Result Date: 04/24/2024 Narrative: PROCEDURE: Diagnostic and therapeutic paracentesis. INDICATION: 63 y.o. year old male with alcohol cirrhosis and recurrent ascites. ATTENDING: Dr. Ector Sandy, the Attending physician, wason [facility] and immediately available for assistance throughout the entire procedure. MERCHANDISE PRESENTATION MANAGER: JULIANE Osborne SEDATION: None DURATION: 40 minutes [...] to obtain the completed interpretation. Workstation ID: [id number] ED POCUS Abdominal Single Organ Impression: Exam Information A ozixn-vr-zspg ultrasound was performed to assess the anatomy [...] Electronically signed by Tomás Durham MD on [email or web address] ECG 12 lead Impression: NORMAL SINUS RHYTHM [...] to obtain the completed interpretation. Workstation ID: [id number] US Limited Abdomen Single Org Result Date: [...] to obtain the completed interpretation. Workstation ID: [id number] X-Ray Chest 1 View Result Date: 04/11/2024 [...] to obtain the completed interpretation. Workstation ID: [id number] GLOBAL PLAN OF CARE CONSULTS: IP CONSULT [...] as appropriate Nate Correa : 1960 CSN: [id number] Delmis Joseph MD documented in this encounter [...] If you have any questions, please call [facility] at [phone]. Diet: you may resume your low sodium, high protein diet. Activity: you may resume your normal activity level. The following appointments have been made: Future Appointments Date Time Provider Department Center 07/08/2024 4:30 PM Mike Low MD [facility] It is very important that you [...] significant RBC morphology present (ICSH guidelines, 2015). [place] Cells 2+ (A) Not Present Total Cells [...] Not Present Acanthocytes 2+ (A) Not Present [place] Cells 2+ (A) Not Present Basic Metabolic [...] Santana IV, MD MS Transplant/General Infectious Disease Piping Drafteroffice administrator [facility] P: [phone] * Damaris Enriquez MD [...] patient was seen and evaluated at bedside. [place] significantly better after paracentesis and ERCP yesterday [...] 58 % Lymphocytes %, Peritoneal 24 % [place]/Macrophage %, Peritoneal 17 % Basophil %, Peritoneal [...] Acanthocytes 2+ (A) Not Present Chrissie Cells 3+ (A) Not Present Total Cells [...] to obtain the completed interpretation. Workstation ID: [id number] Assessment & Plan Principal Problem: SBP (spontaneous [...] Sanchez MD Fellow, PGY4 Infectious Diseases Pager [phone] 04/28/2024 6:56 PM Nate Correa : 1960 CSN: [id number] Cosigned by Farhad Santana IV, MD at 04/29/2024 8:24 AM EST Associated attestation - Farhad Santana IV, MD - 04/29/2024 8:24 AM EST I saw and evaluated the patient. Case discussed with the resident/fellow and I agree with the findings and plan as documented in the resident's/fellow's note. Farhad Santana IV, MD MS Transplant/General Infectious Disease Piping Drafteroffice administrator [facility] Manager Strategic Marketing [facility] P: 1961 * Damaris Enriquez MD [...] to obtain the completed interpretation. Workstation ID: [id number] Assessment & Plan Principal Problem: SBP (spontaneous [...] guidelines, 2015). Acanthocytes 2+ (A) Not Present [place] Cells 2+ (A) Not Present Imaging/Other Studies [...] to obtain the completed interpretation. Workstation ID: [id number] IR Paracentesis Diagnostic and Therapeutic Result Date: [...] complete workup and becomes safe to discharge. [place] cold and wanted another warm blanket. Has [...] guidelines, 2015). Anisocytosis 2+ (A) Not Present [place] Cells 2+ (A) Not Present Glucose, Body [...] 66 % Lymphocytes %, Peritoneal 20 % [place]/Macrophage %, Peritoneal 14 % Differential Cells Counted, [...] Dark Yellow Clarity, Urine Clear Clear Specific [place], Urine 1.029 1.005 - 1.030 pH, Urine [...] of admission draining 1.7L and totalhad 3 rdaha (04/14 draining about 5L, 04/18 about 5L, [...] have occurred. Nate Correa : 1960 CSN: [id number] Source Note - Mike Low MD - 04/24/2024 11:00 AM EST TRANSPLANT HEPATOLOGY CLINIC NOTE PRIMARY CARE PROVIDER: Jade Harper LOCAL BEVEL FACE STONER AND POLISHER: Dr. Harper Patient Name: Nate Correa : [...] total) by mouth every 24 hours. 30 omydcp00 furosemide (LASIX) 20 mg tablet Take 1 [...] have occurred. Nate Correa : 1960 CSN: [id number] Source Note - Evin Reno MD - [...] had a percutaneous drain placed 02/01/24 at [facility]- at the time due to new finding [...] had a percutaneous drain placed 02/01/24 at [facility]- at the time due to new finding [...] 1:19 PM ESTAssociated Order(s): ENDOSCOPIC RETROGRADE CHOLANGIOPANCREATOGRAPHY [facility] Gastroenterology Patient Name: Nate Correa Procedure Date: 05/02/2024 1:19 PM Date of : 1960 Admit Type: Inpatient Age: 63 Room: [place] [address] Gender: Male Note Status: Finalized Attending MD: [...] stent and PCT were visible on the chyron operator film. The esophagus was successfully intubated under [...] 3:18 PM ESTAssociated Order(s): ENDOSCOPIC RETROGRADE CHOLANGIOPANCREATOGRAPHY [facility] Gastroenterology Patient Name: Nate Correa Procedure Date: 04/29/2024 3:18 PM Date of : 1960 Admit Type: Inpatient Age: 63 Room: [place] [address] Gender: Male Note Status: Finalized Attending MD: [...] by the physician, the nurse and the contract administration manager in the pre-procedure area in the endoscopy [...] was 589 seconds (604.5 mGy). Findings: A chyron operator film of the abdomen was obtained. Percutaneous [...] Patient's understanding of procedure matches consent: Yes [place] Protocol: Procedure consent matches procedure scheduled: Yes [...] on US. Nate Correa : 1960 CSN: [id number] Cosigned by Delmis Joseph MD at 04/29/2024 [...] male pmh HTN, HLD, recent admission at [facility] for cholecystitis in January 2024 s/p shay [...] Procedure Laterality Date IR CHOLECYSTOSTOMY TUBE PLACEMENT OK ERCP DX COLLECTION SPECIMEN BRUSHING/WASHING N/A 04/29/2024 Procedure: ENDOSCOPIC RETROGRADE CHOLANGIOPANCREATOGRAPHY, DIAGNOSTIC WITH POSSIBLE BRUSHING OR WASHING AND POSSIBLE MODERATE SEDATION; Surgeon: Rachel Murray MD; Location: [facility] GI OR; Service: Gastroenterology TOE AMPUTATION [...] flush 2.5-10 mL, 2.5-10 mL, intravenous, q12h THOMASRachel MD, 10 mL at 04/30/24 0913 sodium [...] with the referring provider and team by [employer] secure chat and over the phone: Cosigned by Malcolm Johnson MD at 05/27/2024 10:35 AM EST Associated attestation - Malcolm Johnson MD - 05/27/2024 10:35 AM EST SUPERINTENDENT MAINTENANCE/PA note reviewed. Agree with above findings, assessment, and plan * Xiomara Schmid MD - 04/25/2024 10:12 AM ESTAssociated Order(s): IP CONSULT TO INFECTIOUS DISEASE - TRANSPLANT Transplant Infectious Disease Consult Date of admission: 04/24/2024 5:35 PM Consult requested by: Attending Provider: Natalio Lara MD [phone] Reason for consult: Recurrent secondary bacterial peritonitis [...] had a percutaneous drain placed 02/01/24 at [facility]. He was not a candidate for cholecystectomy due to new finding of liver cirrhosis and transaminitis. He then developed a clogged percutaneous cholecystostomy drain and developed secondary bacterial peritonitis with Klebsiella pneumoniae resistant only to ampicillin. Patient admitted at [facility] 04/11-04/19 for treatment and discharged with [...] care was discussed with the primary hospital sales team leader - Dr. Zoe HAMMOND. Thank you for this consultation. Please don't hesitate to call the Transplant ID team for questionsor any acute changes in patient's clinical condition. Xiomara Schmid MD PGY-1 Transplant Infectious Diseases Nate Correa : 1960 CSN: [id number] Cosigned by Farhad Santana IV, MD at [...] Santana IV, MD MS Transplant/General Infectious Disease Piping Drafteroffice administrator [facility] Manager Strategic Marketing [facility] P: 1961 documented in this encounter [...] Samuels MD Nate Correa : 1960 CSN: [id number] Prieto Mclain MD Resident 04/25/24 1554 Cosigned [...] by me. Nate Correa : 1960 CSN: [id number] documented in this encounter Miscellaneous Notes * [...] Plan: Home with outpatient follow up and [facility] for SN,PT. Transportation home by spouse. [...] Team notified. MIRZA Lucero, OTR/L [place] License #[id number] * Hospital Course - Alexei Lepe MD [...] diet. On discharge: - Follow-up with outpatient machinery cleaner, has appointment on 07/08/2024. Encouraged patient to try to schedule for sooner follow-up - Will need ERCP in about 2 months for stent removal and re-attempt at adequate drainage (05/02). Will also need to discuss potential TIPS procedure with outpatient machinery cleaner - Lasix 20 mg daily and spironolactone [...] as appropriate) Assumed care of pt from [id number]. Pt A+O, VSS, on RA. Pt ambulates SBA with walker OOB to void, continent. Pt refused am Lasix and Lactulose, aware. bedside in am, concerned about him going home and being alone d/t his changing mental status from not continuously taking his meds, employment evaluator/case manager and provider aware. 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 He can resume SN/PT with [facility] at home. Referral placed, they are following.When discharging, CM can fax order: [facility] (F) [phone]. CM told spouse, Sana, that pt would likely discharge after stent placement tomorrow and she hopes pt can stay another day to be sure stent is ok, and go home on Sunday. Message sent to team via secure chat. Discharge Planning: Discharge Barrier: medical stability Discharge Plan: home with [facility] for SN,PT. Spouse to transport. Choice [...] had a percutaneous drain placed 02/01/24 at [facility]- at the time due to new finding [...] Procedure Laterality Date IR CHOLECYSTOSTOMY TUBE PLACEMENT OK ERCP DX COLLECTION SPECIMEN BRUSHING/WASHING N/A 04/29/2024 Procedure: ENDOSCOPIC RETROGRADE CHOLANGIOPANCREATOGRAPHY, DIAGNOSTIC WITH POSSIBLE BRUSHING OR WASHING AND POSSIBLE MODERATE SEDATION; Surgeon: Rachel Murray MD; Location: [facility] GI OR; Service: Gastroenterology TOE AMPUTATION TOTAL KNEE ARTHROPLASTY Left Vitals Default Flowsheet Data (Last 12 Hours) Adult PT Evaluation/Treatment Row Name 05/01/24 0950 General Information Patient Profile Review yes General Observations of Patient Pre/post rx: patient semi supine in bed, PIV RUE, biliary tube RUQ,call gaston within reach, all needs met Precautions/Restrictions fall;safety Row Name 05/01/24 0950 Band Ripsaw Operator Services Band Ripsaw Operator Needed No Row Name 05/01/24 0950 Living [...] Shower/Tub grab bar;shower chair Row Name 05/01/24 0926 Functional Level Prior Bed Mobility independent Transferring [...] splits household responsibilities with . works time buyer Row Name 05/01/24 0950 Hearing Hearing Status WFL Row Name 05/01/24 0950 Vision Assessment/Intervention Visual Impairment/Limitations WFL Row Name 05/01/24 0950 Cognitive Assessment/Intervention Attention (Cognitive) WNL/WFL Behavior/Mood Observations (Cognitive) alert;agitated Follows Commands/Answers Questions (Cognitive) 100% of the time;able to follow multi-step instructions;able to follow single-step instructions Personal Safety (Cognitive) decreased insight to deficits Short/Shelter Memory (Cognitive) short term memory intact;fci memory intact Orientation Status (Cognitive) oriented x [...] Name 05/01/24 0950 Bed Mobility Assessment/Treatment Scoot/Bridge Sprakers (Bed Mobility) independent Mtzncp-qn-Mzm Sprakers (Bed Mobility) independent Bin-qk-Fpquwm Sprakers (Bed Mobility) independent Row Name 05/01/2460 Transfer Assessment/Treatment Sit-Stand [place] level (Transfers) supervision required Stand-Sit [place] level(Transfers) supervision required Twf-Szycn-Dms Assistive Device (Transfers) gait belt;walker, rolling Row Name 05/01/24949 Gait Assessment/Treatment [place]rakers (Gait) supervision required Assistive Device (Gait) gait belt;walker, rolling Distance in Feet (Gait) 100 x2 Gait Pattern Analysis swing-through gait Gait Deviations gilda, decreased;step length, decreased Comment (Gait) Safely able to ambulate with RW, observed to pick walker up while turning, requiringVC to correct. No overt LOB noted Row Name 05/01/2427 Stairs Assessment/Treatment Number of Stairs (Stairs) 6 Handrail Location (Stairs) right side (ascending) Sprakers (Stairs) modified independence;supervision required Assistive Device (Stairs) gait belt;handrail Technique (Stairs) [id number] (ascending);side-stepping Comment (Stairs) Side stepping while descending Row Name 05/01/2405 AM-PAC AM-PAC With Stairs Row Name 05/01/2454 IP AM-PAC Basic Mobility '6 Clicks'(With Stairs) Turning in Bed Without Bedrails 3 Lying on Back to Sitting on Edge of Flat Bed 3 Moving Bed to Chair 3 Standing Up from Chair 3 Walk in Room 3 Climbs 3-5 Steps 3 IP Mobility Raw Score 18 CMS 0-100% Score 46.58 % [facility] G Code Modifier:Current status (G8978) CK Standardized T-Scale Score 43.63 Row Name 05/01/2405 Clinical Impression Patient/Family Goals Statement I want to get out of here Criteria for Skilled Therapeutic Interventions Met no problems identified which require skilled intervention Therapy Frequency N/A PT Anticipated Equipment Needs at Discharge (none) PT Anticipated Discharge Disposition home;home with family PT - OK to Discharge ? Yes Row Name 05/01/2461 Plan of Care Review Plan of Care Reviewed With patient Row Name 05/01/2459 Discharge Summary Reason for Discharge no further needs identified Row Name 05/01/2407 PT Eval/ Treat- Additional Details Document Type Initial Evaluation;Discharge evaluation/summary PT Date of Initial Eval/Re-Eval 05/01/24 PT Ordered Same Day as RADHA? No PT Treatment Received On 05/01/24 Patient Effort good Symptoms Noted During/After Treatment none PT Goal Summary (all recorded) PT Rehab Goal Summary No documentation. Moy Tang PT Licensure: PT [place]: [id number] * Plan of Care - Bridget Dumont [...] Procedure Laterality Date IR CHOLECYSTOSTOMY TUBE PLACEMENT OK ERCP DX COLLECTION SPECIMEN BRUSHING/WASHING N/A 04/29/2024 Procedure: ENDOSCOPIC RETROGRADE CHOLANGIOPANCREATOGRAPHY, DIAGNOSTIC WITH POSSIBLE BRUSHING OR WASHING AND POSSIBLE MODERATE SEDATION; Surgeon: Rachel Murray MD; Location: [facility] GI OR; Service: Gastroenterology TOE AMPUTATION [...] reports ongoing poor PO intake in-house and HIGH PRESSURE OPERATOR. Pt has been trying to prioritize protein intake, enjoys turkmen yogurt, eggs. Pt's has been making him smoothies at home w/ protein powder. Pt endorses ongoing early satiety. SRG=515#, pt reports weighing this 3-4 months ago, [...] Cups) butpt declines today. Pt asked this display card writer to call to see if she [...] Edema: 1+ bilat leg/ankle/foot MST Score= 5 Cultural/yazidism/ethnic preferences addressed as able. Nutrition Diagnosis: Chronic [...] - stated) Estimated Needs: Energy Calorie Requirements: 9754-3460 kcal (22-25 kcal/kg) Protein (gms/day): 114-142 g (1.2-1.5 g/kg) Fluid Requirements: per team Monitor/Evaluation: Food Intake: meet nutrition needs via PO intake Electrolyte/Renal Profile: WNL Glucose/Endocrine Profile: WNL Gastrointestinal Profile: Bowel regularity. No N, V, diarrhea, constipation Weight: Stable Nutrition-Focused Physical Findings: monitor for changes in skin integrity See flowsheets for additional information. Bridget Dumont MS, RD, LDN Nate Corera : 1960 CSN: [id number] Cosigned by Delmis Joseph MD at 05/01/2024 [...] * INP High Risk Summary - Marybel Works - 04/25/2024 10:43 AM EST CM/ANA High [...] Acute rehab she would like [facility] in [place], For STR@SNF, [facility] or [facility]. Supports, HCP, Designated Caregiver, Guardian: Sana Correa, Spouse/HCP Initial Discharge Planning: Dispo TBD Choice list (with star ratings) provided / discussed, if indicated (Y or NA):NA ADD: Sana left a message w/nursing asking CM to call back. CM called and spoke w/Sana on the phone. After speaking w/her family, she requested referrals for Acute Rehab or SNF be placed in [facility] so he would be close to [facility] if he needed hospitalization. CM reviewed area Acute rehabs. Sana agrees w/referrals to [facility] or [facility]. If PT recommends SNF then CM will review [facility] rehab centers. * Assessment & Plan Note [...] NOTIFICATION 04/24/2024 16:21 NATE CORREA : 1960 [facility]'s patient encounter information: MRN:?[id number] Account Number:?[id number] Billing Account Number:?[id number] Criteria Met History of Sepsis Dx Traveling [...] E.D. Visit Count (12 mo.) Facility Visits [facility] 2 [facility] 1 [facility] 1 Total 4 Note: Visits indicate total known visits. Recent Emergency Department Visit Summary Date [facility] Type Diagnoses or Chief Complaint Apr 24, 2024 [facility]. [place] Emergency TrAC- SBP Apr 11, 2024 [facility] Emergency Hypotension, unspecified [facility]otension [facility] [place] [facility] 1. Calculus of gallbladder with acute and chronic cholecystitis without obstruction 2. Other ascites 3. Encounter for screening for COVID-19 4. Tachycardia, unspecified 5. Localized enlarged lymph nodes 6. Portal hypertension 7. Splenomegaly, not elsewhere classified 99. Unspecified abdominal pain 99. Unspecified cirrhosis of liver 99. Fever, unspecified Jan 29, 2024 [facility] [place] [facility] Chief Complaint: gallstones/sent by PCP Recent Inpatient Visit Summary Date [facility] Type Diagnoses or Chief Complaint Apr 11, 2024 [facility] Inpatient Unspecified cirrhosis of liver Hepatic failure, unspecified without coma Spontaneous bacterial peritonitis Hypotension, unspecified Jan 29, 2024 [facility] [place] [facility] Surgical Right upper quadrant pain Calculus of gallbladder without cholecystitis with obstruction Calculus of gallbladder without cholecystitis without obstruction Alcoholic cirrhosis of liver with ascites Acute cholecystitis Care Team Provider Specialty Phone Fax Service Dates PO, MD JADE Internal Medicine Current [facility] This patient has registered at the [facility] Emergency Department For more information visit: [email or web address] PLEASE NOTE: 1. Any care recommendations and other clinical information are provided as guidelines or for historical purposes only, and providers should exercise their own clinical judgment when providing care. 2. You may only use this information for purposes of treatment, payment or health care operations activities, and subject to the limitations of applicable [employer] Policies. 3. You should consult directly with the organization that provided a care guideline or other clinical history with any questions about additional information or accuracy or completeness of information provided. ? 2024 [employer] documented in this encounter Plan of Treatment Upcoming Encounters Date Type Department Care Team (Latest Contact Info) Description 5 10:30 AM EST Appointment [facility] Interventional Radiology [address] [place] [phone] Mike Rey i, MD [address] [place] [phone] 5 10:30 AM EDT Appointment [facility] Interventional Radiology [address] [place] [phone] Mike Rey i, MD [address] [place] [address] [phone] 5 2:00 PM EDT Pre-Admission Testing [facility] [address] [place] [phone] 5 10:00 AM EDT Appointment [facility] Interventional Radiology [address] [place], [place] [id number] [id number] Mike Rey i, MD [address] [place] [id number] 5 10:30 AM EDT Appointment [facility] Interventional Radiology [address] [place] [phone] Mike Rey i, MD [address] [place] [address] 5 9:00 AM EDT Pre-Admission Testing [facility] [address] [facility] 3rd [place] [address] 5 10:30 AM EDT Appointment [facility] Interventional Radiology [address] [place] [phone] Mike Rye i, MD [address] [place] [address] 5 10:30 AM EDT Appointment [facility] Interventional Radiology [address] [place] [address] [phone] Mike Rey i, MD [address] [place] [address] [phone] 5 8:30 AM EDT Hospital Encounter [facility] Operating Room [address] [place] [address] Rachel Murray MD [address] [place] [address] [phone] 5 8:30 AM EDT - 5 9:30 AM EDT Surgery [facility] Operating Room [address] [place] [address] Rachel Murray MD [address] [place] [address] [phone] ENDOSCOPIC RETROGRADE CHOLANGIOPANCREATOGRAPHY WITH REMOVAL OF FOREIGN BODY(S)/STENT(S)/PANCREATIC DUCT(S) WITH POSSIBLE MODERATE SEDATION [79791 (CPT??)] 5 10:30 AM EDT Appointment [facility] Interventional Radiology [address] [place] [address] Mike Rey i, MD [address] [place] [address] [phone] 5 4:30 PM EDT Follow-Up [facility] Services [address] [place] [phone] Mike Rey i, MD [address] [place] [address] 40568 5 10:30 AM EDT Appointment [facility] Interventional Radiology [address] [place] [address] [phone] Mike Rey i, MD [address] [place] [address] [phone] 5 10:30 AM EDT Appointment [facility] Interventional Radiology [address] [place] [address] [phone] Mike Rey i, MD [address] [place] [address] 66474 5 10:30 AM EDT Appointment [facility] Interventional Radiology [address] [place] [address] [phone] Mike Rey i, MD [address] [place] [address] [phone] 5 10:30 AM EDT Appointment [facility] Interventional Radiology [address] [place] [address] [phone] Mike Rey i, MD [address] [place] [address] 22450 5 10:30 AM EDT Appointment [facility] Interventional Radiology [address] [place] [address] [phone] Mike Rey i, MD [address] [place] [address] [phone] 5 10:30 AM EDT Appointment [facility] Interventional Radiology [address] [place] [address] [phone] Mike Rey i, MD [address] [place] [address] [phone] 5 10:30 AM EDT Appointment [facility] Interventional Radiology [address] [place] [address] [phone] Mike Rey i, MD [address] [place] [address] [phone] 5 10:30 AM EDT Appointment [facility] Interventional Radiology [address] [place] [address] [phone] Mike Rey i, MD [address] [place] [address] [phone] 5 10:30 AM EDT Appointment [facility] Interventional Radiology [address] [place] [address] [phone] Mike Rey i, MD [address] [place] [address] [phone] 5 10:30 AM EDT Appointment [facility] Interventional Radiology [address] [place] [address] [phone] Mike Rey i, MD [address] [place] [address] [phone] 10:30 AM EDT Appointment [facility] Interventional Radiology [address] [place] [address] Mike Rey i, MD [address] [place] [address] [phone] Scheduled Orders Name Type Priority Associated Diagnoses [...] of this encounter Procedures * Due to [place] state law, this organization might not be [...] NON-REPORTABLE Routine 05/02/2024 4:31 PM EST Cholecystitis TYPE AND SCREEN Routine 05/02/2024 9:21 AM [...] NON-REPORTABLE Routine 04/29/2024 5:59 PM EST Cholecystitis OK ERCP DX COLLECTION SPECIM EN BRUSHING/WASHING 04/29/2024 4:16 PM EST Cholecystitis OK ABDOM PARACENTESIS DX/THE R W IMAGING GUIDANCE [...] in this encounter Results * Due to [place] state law, this organization might not be sharing negative HIV tests. * (ABNORMAL) Hepatic function panel (05/03/2024 3:18 AM EST) Total Protein 6.1 6.0 - 8.0 g/dL 05/03/2024 4:12 AM EST [facility] Albumin 3.0(L) 3.5 - 5.2 g/dL 05/03/2024 4:12 AM EST [facility] Globulin, Total 3.1 2.1 - 4.2 g/dL 05/03/2024 4:12 AM EST [facility] [employer] [facility]PAR[facility] [employer] CLINICAL PATHOLOGY LABORATORY Bilirubin, Total 2.4(H) 0.2 - 1.2 mg/dL 05/03/2024 4:12 AM EST [facility] Bilirubin, Direct 1.4(H) <=0.4 mg/dL 05/03/2024 4:12 AM EST [facility] CL[facility]ICAL PATHOLOGY LABORATORY Alkaline Phosphatase 181(H) 35 - 129 U/L 05/03/2024 4:12 AM EST [facility] LAB[facility] AST 69(H) 10 - 40 U/L 05/03/2024 4:12 AM EST [facility] [employer] [facility] LAB[facility] ALT 47(H) 10 - 40 U/L 05/03/2024 4:12 AM EST [facility] [employer] [facility] LAB[facility]ORY Bilirubin, Indirect 1.00(H) <=0.70 mg/dL 05/03/2024 4:12 AM EST [facility] [employer] [facility] LAB[facility] A/G Ratio 1.0(L) 1.5 - 3.0 05/03/2024 4:12 AM EST [facility] [employer] [facility] LAB[facility] Blood Structure of peripheral vein / Unknown Venipuncture / Unknown 05/03/2024 3:18 AM EST 05/03/2024 3:41 AM EST us Rachel Murray MD LAB BLOOD ORDERABLES Final Resul t [facility] [employer] CLINICAL PATHOLOGY LABORATORY [address] [place] [address], * (ABNORMAL) Protime-INR (05/03/2024 3:18 AM EST) PT 16.5(H) 9.6 - 12.4 Seconds 05/03/2024 4:00 AM EST [facility] LAB[facility] INR 1.5 0.9 - 1.1 05/03/2024 4:00 AM EST [facility] CL[facility]ICAL PATHOLOGY LABORATORY Comment:The optimal therapeu tic INR range for patients treated with Vitamin K antagonists (VKAS, e.g., Warfarin) is 2.0 to 3.5. Discuss the desired range with your doctor/care team. Blood Structure of peripheral vein / Unknown Venipuncture / Unknown 05/03/2024 3:18 AM EST 05/03/2024 3:41 AM EST us Rachel Murray MD LAB BLOOD ORDERABLES Final Resul t [employer] [facility] [employer] [employer] CLINICAL PATHOLOGY LABORATORY [address] [place] [address], [place] * (ABNORMAL) CBC Auto Differential (05/03/2024 3:18 AM EST) WBC 4.3 3.8 - 10.8 10*3/uL 05/03/2024 4:26 AM EST [facility] [employer] [facility] LAB[facility] RBC 3.68(L) 4.20 - 5.80 10*6/uL 05/03/2024 4:26 AM EST [facility] Hemoglobin 11.6(L) 13.2 - 17.1 g/dL 05/03/2024 4:26 AM EST [facility] [employer] [employer] CL[facility]Y LAB[facility]ORY Hematocrit 34.7(L) 38.5 - 50.0 % 05/03/2024 4:26 AM EST [facility] [employer] [facility] LAB[facility]ATORY MCV 94.3 80.0 - 100.0 fL 05/03/2024 4:26 AM EST [employer] [employer] [facility] LAB[facility]ORY MCH 31.5 27.0 - 33.0 pg 05/03/2024 4:26 AM EST [employer] [employer] [facility] [employer] [facility]OLOG[facility] LAB[facility]ATORY MCHC 33.4 32.0 - 36.0 g/dL 05/03/2024 4:26 AM EST [facility] CL[facility]OLOG[facility] LAB[facility]ORY RDW 17.0(H) 11.0 - [...] % 1.6 % 05/03/2024 4:26 AM EST [facility] Basophil % 0.5 % 05/03/2024 4:26 AM EST [facility] Neutrophil # 2.69 1.50 - 7.80 10*3/uL 05/03/2024 4:26 AM EST [facility] Immature Grans # <0.03 <=0.03 10*3/uL 05/03/2024 4:26 AM EST [facility] - [...] - 0.20 10*3/uL 05/03/2024 4:26 AM EST [facility]SM[facility] [employer] [facility] LAB[facility] nRBC % 0.0 /100 WBCs 05/03/2024 4:26 AM EST [facility] LAB[facility] nRBC # <0.01 <0.01 10*3/uL 05/03/2024 4:26 AM EST [facility] Blood Structure of peripheral vein / Unknown Venipuncture / Unknown 05/03/2024 3:18 AM EST 05/03/2024 3:41 AM EST Rachel Murray MD LAB BLOOD ORDERABLES Final Resul t Performing Organization Address City/[facility]/ZIP Co de Phone Number [facility] LAB[facility]ORY [address] [place] [address], * Magnesium (05/03/2024 3:18 AM EST) MG 1.8 1.6 - 2.4 mg/dL 05/03/2024 4:12 AM EST [facility] Blood Structure of peripheral vein / Unknown Venipuncture / Unknown 05/03/2024 3:18 AM EST 05/03/2024 3:41 AM EST us Rachel Murray MD LAB BLOOD ORDERABLES Final Resul t Performing Organization Address [facility] Co de Phone Number [facility]ORY [address] [place] [address], * (ABNORMAL) Basic Metabolic Panel (05/03/2024 3:18 AM EST) NA 135 135 - 145 mmol/L 05/03/2024 4:12 AM EST [facility] K 3.7 3.5 - 5.3 mmol/L 05/03/2024 4:12 AM EST [facility] [employer] CLINICAL PATHOLOGY LABORATORY Cl 105 98 - 107 mmol/L 05/03/2024 4:12 AM EST [facility] CO2 21(L) 22 - 32 mmol/L 05/03/2024 4:12 AM EST [facility] BUN 14 7 - 23 mg/dL 05/03/2024 4:12 AM EST [facility] Creatinine 0.60 0.60 - 1.30 mg/dL 05/03/2024 4:12 AM EST [facility] Glucose 113(H) 65 - 99 mg/dL 05/03/2024 4:12 AM EST [facility]OLOG[facility] LAB[facility] Calcium 8.2(L) 8.6 - 10.5 mg/dL 05/03/2024 4:12 AM EST [facility] Anion Gap 9 5 - 15 05/03/2024 4:12 AM EST [facility]OLOG[facility] LAB[facility] eGFR >90 >=60 mL/min/1. 73m2 05/03/2024 4:12 AM EST [facility] LAB[facility]AT[facility] Comment:The estimated glomer ular [...] MD LAB BLOOD ORDERABLES Final Resul t [facility] LAB[facility] [address] [place] [address], [place] * [place] C-Arm ERCP in [place] [...] - Final [facility] [address] [place] [address], [place] [phone] * (ABNORMAL) Manual Differential (05/02/2024 4:11 AM [...] - 7.80 10*3/uL 05/02/2024 5:24 AM EST [facility] Bands #,Manual 0.04 10*3/uL 05/02/2024 5:24 AM EST [facility] [employer] [facility] [employer] [facility] PATHOLOGY LABORATORY Total Lymph #, Manual 0.37(L) 0.85 - 3.90 10*3/uL 05/02/2024 5:24 AM EST [facility] [employer] [facility] [employer] LAB[facility]ORY Monocyte #, Manual 0.16(L) 0.20 - 0.95 10*3/uL 05/02/2024 5:24 AM EST [facility] [employer] [facility] [employer]OLOG[facility] LABORATORY Eosinophil #, Manual 0.00(L) 0.02 - 0.50 10*3/uL 05/02/2024 5:24 AM EST [facility] Basophil #, Manual 0.00 0.00 - 0.20 10*3/uL 05/02/2024 5:24 AM EST [facility]ITALCal[facility] InfosolutionsRIWY [facility] [employer] CLINICAL PATHOLOGY LABORATORY Platelet Estimate Decrease d(A) Adequate 05/02/2024 5:24 AM EST [facility] [employer] [facility] - [employer] CLINICAL PATHOLOGY LABORATORY RBC Morphology Present( A) Normal, No clinically significant RBC morphology present (ICSH guidelines, 2015). 05/02/2024 5:24 AM EST [facility]ITALCal[facility] InfosolutionsPAR[facility] - [employer] CLINICAL PATHOLOGY LABORATORY [place] Cells 2+(A) Not Present 05/02/2024 5:24 AM EST [facility] [employer] [facility] - [employer] CLINICAL PATHOLOGY LABORATORY Total Cells Counted 115 05/02/2024 5:24 AM EST [facility] [employer] [facility] [employer] CLINICAL PATHOLOGY LABORATORY Blood Structure of peripheral vein / Unknown Venipuncture / Unknown 05/02/2024 4:11 AM EST 05/02/2024 4:30 AM EST us Rachel Murray MD LAB BLOOD ORDERABLES Final Resul t [facility] [employer] CLINICAL PATHOLOGY LABORATORY [address] [place] [address], [place] * (ABNORMAL) CBC Auto Differential (05/02/2024 4:11 AM EST) WBC 4.1 3.8 - 10.8 10*3/uL 05/02/2024 5:24 AM EST [facility] RBC 3.57(L) 4.20 - 5.80 10*6/uL 05/02/2024 5:24 AM EST [facility] Hemoglobin 11.3(L) 13.2 - 17.1 g/dL 05/02/2024 5:24 AM EST [facility] Hematocrit 32.6(L) 38.5 - 50.0 % 05/02/2024 5:24 AM EST [facility] MCV 91.3 80.0 - 100.0 fL 05/02/2024 5:24 AM EST [facility] MCH 31.7 27.0 - 33.0 pg 05/02/2024 5:24 AM EST [facility] MCHC 34.7 32.0 - 36.0 g/dL 05/02/2024 5:24 AM EST [facility] RDW 16.6(H) 11.0 - 15.0 % 05/02/2024 5:24 AM EST [facility] Platelets 80(L) 140 - 400 10*3/uL 05/02/2024 5:24 AM EST [facility] LAB[facility] Comment:No clots present. MPV 10.1 7.5 - 12.5 fL 05/02/2024 5:24 AM EST [facility] nRBC % 0.0 /100 WBCs 05/02/2024 5:24 AM EST [facility] [employer] CLINICAL PATHOLOGY LABORATORY nRBC # <0.01 <0.01 10*3/uL 05/02/2024 5:24 AM EST [facility] Blood Structure of peripheral vein / Unknown Venipuncture / Unknown 05/02/2024 4:11 AM EST 05/02/2024 4:30 AM EST us Rachel Murray MD LAB BLOOD ORDERABLES Final Resul t [facility] LAB[facility] [address] [place] [address], * (ABNORMAL) Hepatic function panel (05/02/2024 4:10 AM EST) Total Protein 6.3 6.0 - 8.0 g/dL 05/02/2024 4:59 AM EST [facility] Albumin 3.2(L) 3.5 - 5.2 g/dL 05/02/2024 4:59 AM EST [facility] Globulin, Total 3.1 2.1 - 4.2 g/dL 05/02/2024 4:59 AM EST [facility] Bilirubin, Total 2.2(H) 0.2 - 1.2 mg/dL 05/02/2024 4:59 AM EST [facility] Bilirubin, Direct 1.3(H) <=0.4 mg/dL 05/02/2024 4:59 AM EST [facility] Alkaline Phosphatase 191(H) 35 - 129 U/L 05/02/2024 4:59 AM EST [facility] AST 81(H) 10 - 40 U/L 05/02/2024 4:59 AM EST [facility] ALT 50(H) 10 - 40 U/L 05/02/2024 4:59 AM EST [facility] Bilirubin, Indirect 0.90(H) <=0.70 mg/dL 05/02/2024 4:59 AM EST [facility] A/G Ratio 1.0(L) 1.5 - 3.0 05/02/2024 4:59 AM EST [facility] Blood Structure of peripheral vein / Unknown Venipuncture / Unknown 05/02/2024 4:10 AM EST 05/02/2024 4:29 AM EST us Rachel Murray MD LAB BLOOD ORDERABLES Final Resul t Performing Organization Address [facility] Co de Phone Number [facility] LABORATORY [address] [place] [address], [place] * (ABNORMAL) Protime-INR (05/02/2024 4:10 AM EST) PT 16.2(H) 9.6 - 12.4 Seconds 05/02/2024 5:03 AM EST [facility] INR 1.5 0.9 - 1.1 05/02/2024 5:03 AM EST [facility] Comment:The optimal therapeu tic INR range for patients treated with Vitamin K antagonists (VKAS, e.g., Warfarin) is 2.0 to 3.5. Discuss the desired range with your doctor/care team. Blood Structure of peripheral vein / Unknown Venipuncture / Unknown 05/02/2024 4:10 AM EST 05/02/2024 4:30 AM EST us Rachel Murray MD LAB BLOOD ORDERABLES Final Resul t Performing Organization Address [facility] de Phone Number [facility] LAB[facility]ATORY [address] [place] [address], [place] * Magnesium (05/02/2024 4:10 AM EST) MG 1.8 1.6 - 2.4 mg/dL 05/02/2024 4:59 AM EST [facility] Blood Structure of peripheral vein / Unknown Venipuncture / Unknown 05/02/2024 4:10 AM EST 05/02/2024 4:29 AM EST us Rachel Murray MD LAB BLOOD ORDERABLES Final Resul t Performing Organization Address City/[facility] Co de Phone Number [facility]OLOG[facility] LABORATORY [address] [place] [address] * (ABNORMAL) Basic Metabolic Panel (05/02/2024 4:10 AM EST) NA 135 135 - 145 mmol/L 05/02/2024 4:59 AM EST [facility] [employer] [employer] CL[facility]ICAL [facility]OLOGY LABORATORY K 3.3(L) 3.5 - 5.3 mmol/L 05/02/2024 4:59 AM EST [facility] [employer] [facility] [employer] Cl 104 98 - 107 mmol/L 05/02/2024 4:59 AM EST [facility] [employer] [facility] [employer] [facility] LAB[facility] CO2 19(L) 22 - 32 mmol/L 05/02/2024 4:59 AM EST [facility] [employer] [facility] [employer] [facility] BUN 16 7 - 23 mg/dL 05/02/2024 4:59 AM EST [facility] [employer] [employer] [facility] Creatinine 0.53(L) 0.60 - 1.30 mg/dL 05/02/2024 4:59 AM EST [facility] [employer] [facility] [employer] Glucose 125(H) 65 - 99 mg/dL 05/02/2024 4:59 AM EST [facility] [employer] [facility] Calcium 8.3(L) 8.6 - 10.5 mg/dL 05/02/2024 4:59 AM EST [facility] [employer] [facility] Anion Gap 12 5 - 15 05/02/2024 4:59 AM EST StreetFire[facility]SMESanth [employer] [facility] eGFR >90 >=60 mL/min/1 .73m2 05/02/2024 4:59 AM EST StreetFireASSMESanth [employer] [facility] [employer] [employer] CL[facility]Y LABOR[facility]ORY Comment:The estimated glomer ular [...] MD LAB BLOOD ORDERABLES Final Resul t [facility] LAB[facility] [address] [place] [address], [place] * ENDOSCOPIC RETROGRADE CHOLANGIOPANCREATOGRAPHY (05/02/2024) Narrative Procedure Note Rachel Murray MD - 05/02/2024 1:19 PM EST [facility] Gastroenterology Patient Name: Nate Correa Procedure Date: 05/02/2024 1:19 PM Date of : 1960 Admit Type: Inpatient Age: 63 Room: [place] [address] Gender: Male Note Status: Finalized Attending MD: [...] stent and PCT were visible on the chyron operator film. The esophagus was successfully intubated under [...] - 8.0 g/dL 05/01/2024 5:23 AM EST [facility] [employer] [facility] CL[facility]ICAL PATHOLOGY LABORATORY Albumin 3.4(L) 3.5 - 5.2 g/dL 05/01/2024 5:23 AM EST [facility] CL[facility]OLOGY LABORATORY Globulin, Total 3.2 2.1 - 4.2 g/dL 05/01/2024 5:23 AM EST [facility] LAB[facility]ORY Bilirubin, Total 2.3(H) 0.2 - 1.2 mg/dL 05/01/2024 5:23 AM EST [facility]OLOG[facility] LAB[facility]ORY Bilirubin, Direct 1.5(H) <=0.4 mg/dL 05/01/2024 5:23 AM EST [facility]OLOG[facility] LABORATORY Alkaline Phosphatase 159(H) 35 - 129 U/L 05/01/2024 5:23 AM EST [facility] [employer] CL[facility] PATHOLOGY LABORATORY AST 63(H) 10 - 40 U/L 05/01/2024 5:23 AM EST [facility]OLOG[facility] LAB[facility]ORY ALT 37 10 - 40 U/L 05/01/2024 5:23 AM EST [facility] PATHOLOGY LABORATORY Bilirubin, Indirect 0.80(H) <=0.70 mg/dL 05/01/2024 5:23 AM EST [facility]OLOG[facility] LABOR[facility] A/G Ratio 1.1(L) 1.5 - 3.0 05/01/2024 5:23 AM EST [facility] [employer] CLINICAL PATHOLOGY LABORATORY Blood Structure of peripheral vein / Unknown Venipuncture / Unknown 05/01/2024 3:51 AM EST 05/01/2024 4:53 AM EST us Rachel Murray MD LAB BLOOD ORDERABLES Final Resul t Performing Organization Address [facility] Co de Phone Number [facility] CL[facility]OLOG[facility] LABORATORY [address] [place] [address], * (ABNORMAL) Protime-INR (05/01/2024 3:51 AM EST) PT 16.6(H) 9.6 - 12.4 Seconds 05/01/2024 5:12 AM EST [facility] CL[facility] PATHOLOGY LABORATORY INR 1.6 0.9 - 1.1 05/01/2024 5:12 AM EST [facility] Comment:The optimal therapeu tic INR range for patients treated with Vitamin K antagonists (VKAS, e.g., Warfarin) is 2.0 to 3.5. Discuss the desired range with your doctor/care team. Blood Structure of peripheral vein / Unknown Venipuncture / Unknown 05/01/2024 3:51 AM EST 05/01/2024 4:52 AM EST Rachel Murray MD LAB BLOOD ORDERABLES Final Resul t Performing Organization Address [facility] Co de Phone Number [facility] LABORATORY [address] [place] [address], * (ABNORMAL) CBC Auto Differential (05/01/2024 3:51 AM EST) WBC 8.8 3.8 - 10.8 10*3/uL 05/01/2024 4:59 AM EST [facility] RBC 3.72(L) 4.20 - 5.80 10*6/uL 05/01/2024 4:59 AM EST [facility] Hemoglobin 11.6(L) 13.2 - 17.1 g/dL 05/01/2024 4:59 AM EST [facility] [employer] CLINICAL PATHOLOGY LABORATORY Hematocrit 34.1(L) 38.5 - 50.0 % 05/01/2024 4:59 AM EST [facility] LAB[facility]ATORY MCV 91.7 80.0 - [...] - 0.95 10*3/uL 05/01/2024 4:59 AM EST [facility] [employer] [facility] LAB[facility] Eosinophil # <0.03 0.02 - 0.50 10*3/uL 05/01/2024 4:59 AM EST [facility] [employer] [facility] LABOR[facility]ORY Basophil # <0.03 0.00 - 0.20 10*3/uL 05/01/2024 4:59 AM EST [facility] CL[facility] PATHOLOG[facility] LABORAT[facility] nRBC % 0.0 /100 WBCs 05/01/2024 4:59 AM EST [facility] [employer] [facility] LAB[facility] nRBC # <0.01 <0.01 10*3/uL 05/01/2024 4:59 AM EST [facility] CL[facility]ICAL PATHOLOGY LABORATORY Blood Structure of peripheral vein / Unknown Venipuncture / Unknown 05/01/2024 3:51 AM EST 05/01/2024 4:52 AM EST us Rachel Murray MD LAB BLOOD ORDERABLES Final Resul t Performing Organization Address City/[facility]/ZIP Co de Phone Number [facility] [address] [place] [address], * Magnesium (05/01/2024 3:51 AM EST) MG 1.9 1.6 - 2.4 mg/dL 05/01/2024 5:23 AM EST [facility] Blood Structure of peripheral vein / Unknown Venipuncture / Unknown 05/01/2024 3:51 AM EST 05/01/2024 4:53 AM EST us Rachel Murray MD LAB BLOOD ORDERABLES Final Resul t [facility] [address] [place] [address], [place] * (ABNORMAL) Basic Metabolic Panel (05/01/2024 3:51 AM EST) NA 134(L) 135 - 145 mmol/L 05/01/2024 5:23 AM EST [facility] CLIN[facility] PATHOLOGY LABORATORY K 3.8 3.5 - 5.3 mmol/L 05/01/2024 5:23 AM EST StreetFire[facility]SM[facility] [employer] [facility] [employer] CLINICAL PATHOLOGY LABORATORY Cl 104 98 - 107 mmol/L 05/01/2024 5:23 AM EST [facility] LAB[facility] CO2 18(L) 22 - 32 mmol/L 05/01/2024 5:23 AM EST [facility] BUN 20 7 - 23 mg/dL 05/01/2024 5:23 AM EST [facility] Creatinine 0.67 0.60 - 1.30 mg/dL 05/01/2024 5:23 AM EST [facility] Glucose 154(H) 65 - 99 mg/dL 05/01/2024 5:23 AM EST [facility] Calcium 8.5(L) 8.6 - 10.5 mg/dL 05/01/2024 5:23 AM EST [facility] Anion Gap 12 5 - 15 05/01/2024 5:23 AM EST [facility] eGFR >90 >=60 mL/min/1. 73m2 05/01/2024 5:23 AM EST [employer] [employer] LABORAT[facility] Comment:The estimated glomer ular [...] ORDERABLES Final Resul t Performing Organization Address [facility]/ZIP Co de Phone Number [facility] LABORATORY [address] [place] [address], * (ABNORMAL) Smear Review (04/30/2024 2:56 PM EST) Platelet Estimate Decrease d(A) Adequate 04/30/2024 3:56 PM EST [facility] RBC Morphology Present( A) Normal, No clinically significant RBC morphology present (ICSH guidelines, 2015). 04/30/2024 3:56 PM EST [facility] Anisocytosis 2+(A) Not Present 04/30/2024 3:56 PM EST [facility] Macrocytes 2+(A) Not Present 04/30/2024 3:56 PM EST [facility] LAB[facility]ORY Acanthocytes 2+(A) Not Present 04/30/2024 3:56 PM EST [facility] LABORATORY [place] Cells 2+(A) Not Present 04/30/2024 3:56 PM EST [facility] Blood Structure of peripheral vein / Unknown Venipuncture / Unknown 04/30/2024 2:56 PM EST 04/30/2024 3:07 PM EST us Delmis Joseph MD LAB BLOOD ORDERABLES Final Result Performing Organization Address City/[facility]/ZIP Co de Phone Number [facility] LAB[facility]ORY [address] [place] [address], [place] * (ABNORMAL) CBC (04/30/2024 2:56 PM EST) WBC 8.0 3.8 - 10.8 10*3/uL 04/30/2024 3:56 PM EST [facility] RBC 3.67(L) 4.20 - 5.80 10*6/uL 04/30/2024 3:56 PM EST [facility] Hemoglobin 11.6(L) 13.2 - 17.1 g/dL 04/30/2024 3:56 PM EST [facility] Hematocrit 34.3(L) 38.5 - 50.0 % 04/30/2024 3:56 PM EST [facility] MCV 93.5 80.0 - 100.0 fL 04/30/2024 3:56 PM EST [facility] MCH 31.6 27.0 - 33.0 pg 04/30/2024 3:56 PM EST [facility] MCHC 33.8 32.0 - 36.0 g/dL 04/30/2024 3:56 PM EST [facility] RDW 16.5(H) 11.0 - 15.0 % 04/30/2024 3:56 PM EST [facility] Platelets 98(L) 140 - 400 10*3/uL 04/30/2024 3:56 PM EST [facility] MPV 10.6 7.5 - 12.5 fL 04/30/2024 3:56 PM EST [facility] Comment:A smear review has b een added. Clinician review and interpretation will be needed once the report is final. Blood Structure of peripheral vein / Unknown Venipuncture / Unknown 04/30/2024 2:56 PM EST 04/30/2024 3:07 PM EST us Delmis Joseph MD LAB BLOOD ORDERABLES Final Result [facility] LAB[facility] [address] [place] [address], * (ABNORMAL) Manual Differential (04/30/2024 4:01 AM EST) Neutrophil %, Manual 94 % 04/30/2024 5:06 AM EST [facility] Lymphocyte %, Manual 1 % 04/30/2024 5:06 AM EST [facility] Monocyte %, Manual 4 % 04/30/2024 5:06 AM EST [facility] Eosinophil %, Manual 0 % 04/30/2024 5:06 AM EST [facility] Basophil %, Manual 0 % 04/30/2024 5:06 AM EST [facility] Reactive Lymphocyte % 1 0 - 6 % 04/30/2024 5:06 AM EST [facility] Total Neutrophil #, Manual 4.04 1.50 - 7.80 10*3/uL 04/30/2024 5:06 AM EST [facility] Total Lymph #, Manual 0.09(L) 0.85 - 3.90 10*3/uL 04/30/2024 5:06 AM EST [facility] Monocyte #, Manual 0.17(L) 0.20 - 0.95 10*3/uL 04/30/2024 5:06 AM EST [facility] Eosinophil #, Manual 0.00(L) 0.02 - 0.50 10*3/uL 04/30/2024 5:06 AM EST [facility] Basophil #, Manual 0.00 0.00 - 0.20 10*3/uL 04/30/2024 5:06 AM EST [facility] Reactive Lymphocytes # 0.04 10*3/uL 04/30/2024 5:06 AM EST [facility] Platelet Estimate Decrease d(A) Adequate 04/30/2024 5:06 AM EST [facility] RBC Morphology Present( A) Normal, No clinically significant RBC morphology present (ICSH guidelines, 2015). 04/30/2024 5:06 AM EST [facility] Anisocytosis 2+(A) Not Present 04/30/2024 5:06 AM EST [facility] Acanthocytes 2+(A) Not Present 04/30/2024 5:06 AM EST [facility] LABORATORY [place] Cells 3+(A) Not Present 04/30/2024 5:06 AM EST [facility] LAB[facility] Total Cells Counted 115 04/30/2024 5:06 AM EST [facility] CL[facility]OLOG[facility] LAB[facility] Blood Structure of peripheral vein / Unknown Venipuncture / Unknown 04/30/2024 4:01 AM EST 04/30/2024 4:26 AM EST us Rachel Murray MD LAB BLOOD ORDERABLES Final Resul t [employer] LAB[facility] [address] [place] [address], [place] * (ABNORMAL) Hepatic function panel (04/30/2024 4:01 AM EST) Total Protein 5.9(L) 6.0 - 8.0 g/dL 04/30/2024 4:54 AM EST [facility] LAB[facility] Albumin 3.1(L) 3.5 - 5.2 g/dL 04/30/2024 4:54 AM EST [facility] Globulin, Total 2.8 2.1 - 4.2 g/dL 04/30/2024 4:54 AM EST [facility] Bilirubin, Total 3.7(H) 0.2 - 1.2 mg/dL 04/30/2024 4:54 AM EST [facility] Bilirubin, Direct 2.1(H) <=0.4 mg/dL 04/30/2024 4:54 AM EST [facility] Alkaline Phosphatase 109 35 - 129 U/L 04/30/2024 4:54 AM EST [facility] LAB[facility] AST 46(H) 10 - 40 U/L 04/30/2024 4:54 AM EST [facility] LAB[facility] ALT 29 10 - 40 U/L 04/30/2024 4:54 AM EST [facility] [employer] CLINICAL PATHOLOGY LABORATORY Bilirubin, Indirect 1.60(H) <=0.70 mg/dL 04/30/2024 4:54 AM EST [facility] [employer] CLINICAL PATHOLOGY LABORATORY A/G Ratio 1.1(L) 1.5 - 3.0 04/30/2024 4:54 AM EST [facility] [employer] CLINICAL PATHOLOGY LABORATORY Blood Structure of peripheral vein / Unknown Venipuncture / Unknown 04/30/2024 4:01 AM EST 04/30/2024 4:26 AM EST Rachel Murray MD LAB BLOOD ORDERABLES Final Resul t Performing Organization Address [facility]/ZIP Co de Phone Number [facility] CLINICAL PATHOLOGY LABORATORY [address] [place] [address], [place] * (ABNORMAL) Protime-INR (04/30/2024 4:01 AM EST) PT 17.8(H) 9.6 - 12.4 Seconds 04/30/2024 4:52 AM EST [facility] [employer] CLINICAL PATHOLOGY LABORATORY INR 1.7 0.9 - 1.1 04/30/2024 4:52 AM EST [facility] [employer] CLINICAL PATHOLOGY LABORATORY Comment:The optimal therapeu tic INR range for patients treated with Vitamin K antagonists (VKAS, e.g., Warfarin) is 2.0 to 3.5. Discuss the desired range with your doctor/care team. Blood Structure of peripheral vein / Unknown Venipuncture / Unknown 04/30/2024 4:01 AM EST 04/30/2024 4:26 AM EST Rachel Murray MD LAB BLOOD ORDERABLES Final Resul t Performing Organization Address [facility]/ZIP Co de Phone Number [facility] CLINICAL PATHOLOGY LABORATORY [address] [place] [address], [place] * (ABNORMAL) CBC Auto Differential (04/30/2024 4:01 AM EST) WBC 4.3 3.8 - 10.8 10*3/uL 04/30/2024 5:06 AM EST [facility] CL[facility]ICAL PATHOLOG[facility] LAB[facility] RBC 3.54(L) 4.20 - 5.80 10*6/uL 04/30/2024 5:06 AM EST [facility] LAB[facility] Hemoglobin 11.4(L) 13.2 - 17.1 g/dL 04/30/2024 5:06 AM EST [facility]OLOG[facility] LAB[facility]ORY Hematocrit 32.9(L) 38.5 - 50.0 % 04/30/2024 5:06 AM EST [facility]OLOG[facility] LAB[facility]AT[facility] MCV 92.9 80.0 - 100.0 fL 04/30/2024 5:06 AM EST [facility] CL[facility]ICAL PATHOLOGY LABORATORY MCH 32.2 27.0 - 33.0 pg 04/30/2024 5:06 AM EST [facility]OLOG[facility] LAB[facility]AT[facility] MCHC 34.7 32.0 - 36.0 g/dL 04/30/2024 5:06 AM EST [facility] LAB[facility] RDW 16.3(H) 11.0 - 15.0 % 04/30/2024 5:06 AM EST [facility] LAB[facility] Platelets 76(L) 140 - 400 10*3/uL 04/30/2024 5:06 AM EST [facility] LAB[facility] MPV 10.5 7.5 - 12.5 fL 04/30/2024 5:06 AM EST [facility] LAB[facility] nRBC % 0.0 /100 WBCs 04/30/2024 5:06 AM EST [facility] PATHOLOG[facility] LAB[facility] nRBC # <0.01 <0.01 10*3/uL 04/30/2024 5:06 AM [employer] CLINICAL PATHOLOGY LABORATORY Blood Structure of peripheral vein / Unknown Venipuncture / Unknown 04/30/2024 4:01 AM EST 04/30/2024 4:26 AM EST Rachel Murray MD LAB BLOOD ORDERABLES Final Resul t Performing Organization Address City/[facility]/ZIP Co de Phone Number [facility] CL[facility]ICAL PATHOLOG[facility] LABORATORY [address] [place] [address], * Magnesium (04/30/2024 4:01 AM EST) MG 2.1 1.6 - 2.4 mg/dL 04/30/2024 4:54 AM EST [facility] CL[facility]OLOGY LABORATORY Blood Structure of peripheral vein / Unknown Venipuncture / Unknown 04/30/2024 4:01 AM EST 04/30/2024 4:26 AM EST Rachel Murray MD LAB BLOOD ORDERABLES Final Resul t Performing Organization Address [facility] Co de Phone Number [facility] CL[facility]ICAL [facility]OLOG[facility] LABORATORY [address] [place] [address], [place] * (ABNORMAL) Basic Metabolic Panel (04/30/2024 4:01 AM EST) NA 133(L) 135 - 145 mmol/L 04/30/2024 4:54 AM EST [facility] K 4.5 3.5 - 5.3 mmol/L 04/30/2024 4:54 AM EST [facility] Cl 105 98 - 107 mmol/L 04/30/2024 4:54 AM EST [facility] CO2 17(L) 22 - 32 mmol/L 04/30/2024 4:54 AM EST [facility] BUN 21 7 - 23 mg/dL 04/30/2024 4:54 AM EST [facility] Creatinine 0.74 0.60 - 1.30 mg/dL 04/30/2024 4:54 AM EST [employer] Glucose 163(H) 65 - 99 mg/dL 04/30/2024 4:54 AM EST [employer] Calcium 8.4(L) 8.6 - 10.5 mg/dL 04/30/2024 4:54 AM EST [facility] CLINICAL PATHOLOGY LABORATORY Anion Gap 11 5 - 15 04/30/2024 4:54 AM EST [facility] CL[facility]ICAL PATHOLOGY LAB[facility] eGFR >90 >=60 mL/min/1. 73m2 04/30/2024 4:54 AM EST [facility] CLINICAL PATHOLOGY LABOR[facility]ORY Comment:The estimated glomer ular [...] MD LAB BLOOD ORDERABLES Final Resul t [facility] CLINICAL PATHOLOGY LABORATORY [address] [place] [address], * [place] C-Arm ERCP in OR NONREPORTABLE (04/29/2024 5:59 PM EST) Narrative IMAGING - 04/29/2024 6:01 PM EST This procedure does not contain a result. Please see the surgeon's note for official report. us Rachel Murray MD IMG FLUOROSCOPY PROCEDURES Final Result IMAGING * OK ABDOM PARACENTESIS DX/THER W IMAGING GUIDANCE (04/29/2024 [...] ??Patient's understanding of procedure matches consent: ??Yes [place] Protocol: ??Procedure consent matches procedure scheduled: ??Yes [...] Hold for add-ons. 04/29/2024 6:05 PM EST [facility] PATHOLOG[facility] LABORATORY Comment:Auto resulted. Blood Structure of peripheral vein / Unknown 04/29/2024 10:15 AM EST 04/29/2024 1:05 PM EST Delmis Joseph MD LAB BLOOD ORDERABLES Final Result Performing Organization Address [facility] de Phone Number [facility] CLINICAL PATHOLOGY LABORATORY [address] [place] [address], [place] * STAT Gram Stain (04/29/2024 10:15 AM EST) Gram Stain, STAT No organisms seen 04/29/2024 1:51 PM EST [facility] CLINICAL PATHOLOGY LABORATORY Gram Stain, STAT 3+ Polymorphonuclear leukocytes 04/29/2024 1:51 PM EST [facility] CLINICAL PATHOLOGY LABORATORY Gram Stain, STAT 2+ Mononuclear Cells 04/29/2024 1:51 PM EST [facility] CLINICAL PATHOLOGY LABORATORY Body Fluid Peritoneal cavity structure / Unknown Non-Blood Collection / Unknown 04/29/2024 10:15 AM EST 04/29/2024 1:00 PM EST Rachel Murray MD LAB MICROBIOLOGY - GENERAL ORDER [place] Final Result Performing Organization Address [facility] de Phone Number [facility]ITALVi[facility]icalC[facility] CLINICAL PATHOLOGY LABORATORY [address] [place] [address], * Anaerobic Culture (04/29/2024 10:15 AM EST) Culture No anaerobes isolated. 05/05/2024 6:12 PM EST [facility] Body Fluid Peritoneal cavity structure / Unknown Non-Blood Collection / Unknown 04/29/2024 10:15 AM EST 04/29/2024 1:00 PM EST Narrative [facility] - 05/05/2024 6:12 PM EST [facility] Received Date: MICRO NUMBER: [id number] SPECIMEN QUALITY: Adequate SOURCE: BODY FLUID PERITONEAL STATUS: FINAL Delmis Joseph MD LAB MICROBIOLOGY - GENERAL ORDERABLES Final Result Performing Organization Address City/[facility]/ZIP Co de Phone Number [facility] [place] [address], [place] [address], [place] [phone] [facility] [address], [place] [address], [place] [phone] * Body Fluid Aerobic Culture (04/29/2024 10:15 AM EST) Culture No growth 05/05/2024 10:27 AM EST [facility] Body Fluid Peritoneal cavity structure / Unknown Non-Blood Collection / Unknown 04/29/2024 10:15 AM EST 04/29/2024 1:00 PM EST Narrative [facility] - 05/05/2024 10:27 AM EST [facility] Received Date: MICRO NUMBER: [id number] SPECIMEN QUALITY: Adequate SOURCE: BODY FLUID PERITONEAL STATUS: FINAL Delmis Joseph MD LAB MICROBIOLOGY - GENERAL ORDERABLES Final Result Performing Organization Address City/[facility]/ZIP Co de Phone Number [facility] [place] [address], [place] [address], [place] [phone] [facility] [address] [facility], [place] [address], [place] [phone] * (ABNORMAL) Cell Count w/Differential, Peritoneal (04/29/2024 10:15 AM EST) Color, Peritoneal Yellow Colorless, Yellow, Straw 04/29/2024 2:13 PM EST [facility] CL[facility]ICAL PATHOLOGY LABORATORY Appearance, Peritoneal Hazy(A) Clear 04/29/2024 2:13 PM EST [facility] CL[facility]ICAL PATHOLOGY LABORATORY TNC/WBC, Peritoneal 363(H) <=250 cells/mm3 04/29/2024 2:13 PM EST [facility] PATHOLOG[facility] LABORATORY Comment:Values of TNC <=250 do not rule out abnormality. Clinical correlation is advised. RBC, Peritoneal 3,000 Not established cells/mm3 04/29/2024 2:13 PM EST [facility] CLINICAL PATHOLOGY LABORATORY Neutrophils %, Peritoneal 58 % 04/29/2024 2:13 PM EST [facility]OLOG[facility] LAB[facility] Lymphocytes %, Peritoneal 24 % 04/29/2024 2:13 PM EST [facility] CLINICAL PATHOLOGY LABORATORY [place]/Macrophage %, Peritoneal 17 % 04/29/2024 2:13 PM EST [facility] LABOR[facility] Basophil %, Peritoneal 1 % 04/29/2024 2:13 PM EST [facility] CL[facility]ICAL PATHOLOGY LABORATORY Mesothelial %, Peritoneal 1 % 04/29/2024 2:13 PM EST [facility] CLINICAL PATHOLOGY LABORATORY Differential Cells Counted, Peritoneal 102 04/29/2024 2:13 PM EST [facility] CLINICAL PATHOLOGY LABORATORY Peritoneal Fluid Specimen from peritoneum / Unknown Non-Blood Collection / Unknown 04/29/2024 10:15 AM EST 04/29/2024 1:00 PM EST us Delmis Joseph MD LAB BODY FLUIDS AND STOOLS ORDERABLES Final Result [facility] CL[facility] PATHOLOG[facility] LABORATORY [address] [place] [address], * (ABNORMAL) Hepatic function panel (04/29/2024 4:30 AM EST) Total Protein 5.8(L) 6.0 - 8.0 g/dL 04/29/2024 5:27 AM EST [facility] CL[facility]ICAL PATHOLOGY LABORATORY Albumin 3.3(L) 3.5 - 5.2 g/dL 04/29/2024 5:27 AM EST [facility] CLINICAL PATHOLOGY LABORATORY Globulin, Total 2.5 2.1 - 4.2 g/dL 04/29/2024 5:27 AM EST [facility] CLINICAL PATHOLOGY LABORATORY Bilirubin, Total 5.9(H) 0.2 - 1.2 mg/dL 04/29/2024 5:27 AM EST [facility] CLINICAL PATHOLOGY LABORATORY Bilirubin, Direct 2.9(H) <=0.4 mg/dL 04/29/2024 5:27 AM EST [facility] CLINICAL PATHOLOGY LABORATORY Alkaline Phosphatase 109 35 - 129 U/L 04/29/2024 5:27 AM EST [facility] CLINICAL PATHOLOGY LABORATORY AST 44(H) 10 - 40 U/L 04/29/2024 5:27 AM EST [facility] CLINICAL PATHOLOGY LABORATORY ALT 30 10 - 40 U/L 04/29/2024 5:27 AM EST [facility] CL[facility]ICAL PATHOLOGY LABORATORY Bilirubin, Indirect 3.00(H) <=0.70 mg/dL 04/29/2024 5:27 AM EST [facility] CLINICAL PATHOLOGY LABORATORY A/G Ratio 1.3(L) 1.5 - 3.0 04/29/2024 5:27 AM EST [facility] CLINICAL PATHOLOGY LABORATORY Blood Structure of peripheral vein / Unknown Venipuncture / Unknown 04/29/2024 4:30 AM EST 04/29/2024 4:36 AM EST us Rachel Murray MD LAB BLOOD ORDERABLES Final Resul t [facility] [employer] CLINICAL PATHOLOGY LABORATORY [address] [place] [address], * (ABNORMAL) Protime-INR (04/29/2024 4:30 AM EST) PT 18.2(H) 9.6 - 12.4 Seconds 04/29/2024 4:55 AM EST [facility] CLINICAL PATHOLOGY LABORATORY INR 1.7 0.9 - 1.1 04/29/2024 4:55 AM EST [facility] CLINICAL PATHOLOGY LABORATORY Comment:The optimal therapeu tic INR range for patients treated with Vitamin K antagonists (VKAS, e.g., Warfarin) is 2.0 to 3.5. Discuss the desired range with your doctor/care team. Blood Structure of peripheral vein / Unknown Venipuncture / Unknown 04/29/2024 4:30 AM EST 04/29/2024 4:38 AM EST us Rachel Murray MD LAB BLOOD ORDERABLES Final Resul t [facility] CLINICAL PATHOLOGY LABORATORY [address] [place] [address], [place] * (ABNORMAL) CBC Auto Differential (04/29/2024 4:30 AM EST) WBC 8.7 3.8 - 10.8 10*3/uL 04/29/2024 4:44 AM EST [facility] RBC 3.75(L) 4.20 - 5.80 10*6/uL 04/29/2024 4:44 AM EST [facility] [employer] [facility]OLOG[facility] LAB[facility] Hemoglobin 11.9(L) 13.2 - 17.1 g/dL 04/29/2024 4:44 AM EST [facility] [employer] [facility]OLOGY LABORATORY Hematocrit 34.5(L) [...] - 400 10*3/uL 04/29/2024 4:44 AM EST [facility] [facility] PATHOLOG[facility] LABORATORY MPV 10.2 [...] % 0.7 % 04/29/2024 4:44 AM EST [facility] [employer] [facility]OLOG[facility] LABOR[facility]ORY Neutrophil # 6.42 1.50 - 7.80 10*3/uL 04/29/2024 4:44 AM EST [facility] Immature Grans # 0.04(H) <=0.03 10*3/uL 04/29/2024 4:44 AM EST [facility] LAB[facility] Lymphocyte # 0.80(L) 0.85 - 3.90 10*3/uL 04/29/2024 4:44 AM EST [facility] Monocyte # 1.20(H) 0.20 - 0.95 10*3/uL 04/29/2024 4:44 AM EST [facility] Eosinophil # 0.20 0.02 - 0.50 10*3/uL 04/29/2024 4:44 AM EST [facility] [employer] [facility]OLOGY LABOR[facility]ORY Basophil # 0.10 0.00 - 0.20 10*3/uL 04/29/2024 4:44 AM EST [facility] [facility] CL[facility]ICAL PATHOLOGY LABORAT[facility] nRBC % 0.0 /100 WBCs 04/29/2024 4:44 AM EST [facility]OLOG[facility] LABOR[facility] nRBC # <0.01 <0.01 10*3/uL 04/29/2024 4:44 AM EST [facility] Blood Structure of peripheral vein / Unknown Venipuncture / Unknown 04/29/2024 4:30 AM EST 04/29/2024 4:37 AM EST Rachel Murray MD LAB BLOOD ORDERABLES Final Resul t Performing Organization Address [facility] Co de Phone Number [facility] CLINICAL PATHOLOGY LABORATORY [address] [place] [address], * Magnesium (04/29/2024 4:30 AM EST) MG 1.9 1.6 - 2.4 mg/dL 04/29/2024 5:27 AM EST [facility] CLINICAL PATHOLOGY LABORATORY Blood Structure of peripheral vein / Unknown Venipuncture / Unknown 04/29/2024 4:30 AM EST 04/29/2024 4:36 AM EST Rachel Murray MD LAB BLOOD ORDERABLES Final Resul t Performing Organization Address [facility] de Phone Number [facility] CLINICAL PATHOLOGY LABORATORY [address] [place] [address], * (ABNORMAL) Basic Metabolic Panel (04/29/2024 4:30 AM EST) NA 130(L) 135 - 145 mmol/L 04/29/2024 5:28 AM EST [facility] CL[facility] PATHOLOGY LABOR[facility] K 3.9 3.5 - 5.3 mmol/L 04/29/2024 5:28 AM EST [facility] [employer] [facility]OLOG[facility] LABOR[facility] Cl 102 98 - 107 mmol/L 04/29/2024 5:28 AM EST [facility] [employer] [facility] LAB[facility] CO2 15(LL) 22 - 32 mmol/L 04/29/2024 5:28 AM EST [facility] [employer] [facility] BUN 20 7 - 23 mg/dL 04/29/2024 5:28 AM EST [facility] [employer] [facility] Creatinine 0.88 0.60 - 1.30 mg/dL 04/29/2024 5:28 AM EST [facility] [employer] [facility] Glucose 130(H) 65 - 99 mg/dL 04/29/2024 5:28 AM EST [employer] [facility] [employer] [facility] LABORAT[facility] Calcium 8.6 8.6 - 10.5 mg/dL 04/29/2024 5:28 AM EST [facility] [employer] CLINICAL PATHOLOG[facility] LABOR[facility]ORY Anion Gap 13 5 - 15 04/29/2024 5:28 AM EST [facility] CLINICAL PATHOLOGY LABORATORY eGFR >90 >=60 mL/min/1. 73m2 04/29/2024 5:28 AM EST [facility] [employer] CLINICAL PATHOLOG[facility] LABORATORY Comment:The estimated glomer ular [...] MD LAB BLOOD ORDERABLES Final Resul t [facility] [employer] CLINICAL PATHOLOGY LABORATORY [address] [place] [address], [place] * ENDOSCOPIC RETROGRADE CHOLANGIOPANCREATOGRAPHY (04/29/2024) Narrative Procedure Note Rachel Murray MD - 04/29/2024 3:18 PM EST [facility] Gastroenterology Patient Name: Nate Correa Procedure Date: 04/29/2024 3:18 PM Date of : 1960 Admit Type: Inpatient Age: 63 Room: [place] [address] Gender: Male Note Status: Finalized Attending MD: [...] by the physician, the nurse and the contract administration manager in the pre-procedure area in theendoscopy suite. [...] was 589 seconds (604.5 mGy). Findings: A chyron operator film of the abdomen was obtained. Percutaneous [...] 0 Note Initiated On: 04/29/2024 3:18 PM Rachel Murray MD PROVATION PROCEDURES Final Resul t * (ABNORMAL) Hepatic function panel (04/28/2024 12:16 PM EST) Total Protein 6.1 6.0 - 8.0 g/dL 04/28/2024 1:51 PM EST [employer] CL[facility]ICAL PATHOLOG[facility] LABORAT[facility] Albumin 3.6 3.5 - 5.2 g/dL 04/28/2024 1:51 PM EST [employer] CL[facility]ICAL PATHOLOG[facility] LABORATORY Globulin, Total 2.5 2.1 - 4.2 g/dL 04/28/2024 1:51 PM EST [facility] CL[facility]OLOG[facility] LABORATORY Bilirubin, Total 8.1(H) 0.2 - 1.2 mg/dL 04/28/2024 1:51 PM EST [facility] [employer] CLINICAL [facility]OLOGY LABORATORY Bilirubin, Direct 3.9(H) <=0.4 mg/dL 04/28/2024 1:51 PM EST [facility] Alkaline Phosphatase 117 35 - 129 U/L 04/28/2024 1:51 PM EST [facility] AST 52(H) 10 - 40 U/L 04/28/2024 1:51 PM EST [facility] ALT 35 10 - 40 U/L 04/28/2024 1:51 PM EST [facility] [employer] CL[facility]OLOGY LABORATORY Bilirubin, Indirect 4.20(H) <=0.70 mg/dL 04/28/2024 1:51 PM EST [facility] LAB[facility] A/G Ratio 1.4(L) 1.5 - 3.0 04/28/2024 1:51 PM EST [facility] LAB[facility] Blood Structure of peripheral vein / Unknown Venipuncture / Unknown 04/28/2024 12:16 PM EST 04/28/2024 12:54 PM EST us Rachel Murray MD LAB BLOOD ORDERABLES Final Resul t Performing Organization Address City/[facility]/ZIP Co de Phone Number [facility] CL[facility] PATHOLOG[facility] LABORATORY [address] [place] [address], * Magnesium (04/28/2024 12:16 PM EST) MG 2.0 1.6 - 2.4 mg/dL 04/28/2024 1:49 PM EST [facility] LAB[facility] Blood Structure of peripheral vein / Unknown Venipuncture / Unknown 04/28/2024 12:16 PM EST 04/28/2024 12:54 PM EST us Rachel Murray MD LAB BLOOD ORDERABLES Final Resul t [facility] LAB[facility] [address] [place] [address], * (ABNORMAL) Basic Metabolic Panel (04/28/2024 12:16 PM EST) NA 133(L) 135 - 145 mmol/L 04/28/2024 1:49 PM EST [facility] [employer] [facility] [employer] [facility] K 4.0 3.5 - 5.3 mmol/L 04/28/2024 1:49 PM EST [facility] [employer] [facility] [employer] [facility] Cl 101 98 - 107 mmol/L 04/28/2024 1:49 PM EST [facility] [employer] [facility] [employer] [facility] CO2 17(L) 22 - 32 mmol/L 04/28/2024 1:49 PM EST [facility] [employer] [employer] [facility] BUN 16 7 - 23 mg/dL 04/28/2024 1:49 PM EST [facility] [employer] [facility] [employer] [facility] Creatinine 0.97 0.60 - 1.30 mg/dL 04/28/2024 1:49 PM EST [facility] [employer] [facility] [employer] [facility] Glucose 124(H) 65 - 99 mg/dL 04/28/2024 1:49 PM EST [employer] [facility] [employer] [facility] Calcium 9.0 8.6 - 10.5 mg/dL 04/28/2024 1:49 PM EST [employer] [facility] [employer] [facility] Anion Gap 15 5 - 15 04/28/2024 1:49 PM EST [employer] [facility] [employer] [facility] eGFR 87 >=60 mL/min/1. 73m2 04/28/2024 1:49 PM EST [employer] [facility] [employer] CLINICAL PATHOLOGY LABORATORY Comment:The estimated glomer ular [...] ORDERABLES Final Resul t Performing Organization Address [facility] de Phone Number [facility] CLINICAL PATHOLOG[facility] LABORATORY [address] [place] [address], [place] * (ABNORMAL) Protime-INR (04/28/2024 5:40 AM EST) PT 18.2(H) 9.6 - 12.4 Seconds 04/28/2024 6:05 AM EST [facility] INR 1.7 0.9 - 1.1 04/28/2024 6:05 AM EST [facility] LAB[facility] Comment:The optimal therapeu tic INR range for patients treated with Vitamin K antagonists (VKAS, e.g., Warfarin) is 2.0 to 3.5. Discuss the desired range with your doctor/care team. Blood Structure of peripheral vein / Unknown Venipuncture / Unknown 04/28/2024 5:40 AM EST 04/28/2024 5:49 AM EST Rachel Murray MD LAB BLOOD ORDERABLES Final Resul t Performing Organization Address [facility] de Phone Number [facility] CL[facility]ICAL PATHOLOG[facility] LABORATORY [address] [place] [address], [place] * (ABNORMAL) CBC Auto Differential (04/28/2024 5:30 AM EST) WBC 10.9(H) 3.8 - 10.8 10*3/uL 04/28/2024 5:59 AM EST [facility] LAB[facility] RBC 3.80(L) 4.20 - 5.80 10*6/uL 04/28/2024 5:59 AM EST [facility] LAB[facility] Hemoglobin 12.0(L) 13.2 - [...] - 0.50 10*3/uL 04/28/2024 5:59 AM EST [facility] [employer] Basophil # 0.10 0.00 - 0.20 10*3/uL 04/28/2024 5:59 AM EST [facility] [employer] [employer] [facility] LAB[facility] nRBC % 0.0 /100 WBCs 04/28/2024 5:59 AM EST [facility] [employer] nRBC # <0.01 <0.01 10*3/uL 04/28/2024 5:59 AM EST [employer] [facility] [employer] CLINICAL PATHOLOGY LABORATORY Blood Structure of peripheral vein / Unknown Venipuncture / Unknown 04/28/2024 5:30 AM EST 04/28/2024 5:49 AM EST us Rachel Murray MD LAB BLOOD ORDERABLES Final Resul t Performing Organization Address City/State/[facility] Co de Phone Number [facility] CL[facility]ICAL [facility]OLOG[facility] LABORATORY [address] [place] [address], [place] * [place] Limited Abdomen Single Org [...] obtain the completed interpretation. ? Workstation ID: [id number] Narrative 04/28/2024 8:28 AM EST EXAMINATION: Limited [...] PERITONEUM: Moderate perihepatic ascites. Resulting Agency Comment [id number] Procedure Note Kevin Rausch MD - 04/28/2024 [...] possible to obtain thecompleted interpretation. Workstation ID: [id number] us Jeffrey Castro MD IM US PROCEDURES Final Result * (ABNORMAL) Hepatic function panel (04/27/2024 5:00 AM EST) Total Protein 6.0 6.0 - 8.0 g/dL 04/27/2024 5:55 AM EST [facility]OLOG[facility] LAB[facility] Albumin 3.8 3.5 - 5.2 g/dL 04/27/2024 5:55 AM EST [facility] CLINICAL PATHOLOGY LABORATORY Globulin, Total 2.2 2.1 - 4.2 g/dL 04/27/2024 5:55 AM EST [facility] CLINICAL PATHOLOGY LABORATORY Bilirubin, Total 4.3(H) 0.2 - 1.2 mg/dL 04/27/2024 5:55 AM EST [facility] Bilirubin, Direct 1.6(H) <=0.4 mg/dL 04/27/2024 5:55 AM EST [facility] CLINICAL PATHOLOGY LABORATORY Alkaline Phosphatase 128 35 - 129 U/L 04/27/2024 5:55 AM EST [facility] CLINICAL PATHOLOGY LABORATORY AST 74(H) 10 - 40 U/L 04/27/2024 5:55 AM EST [facility] CLINICAL PATHOLOGY LABORATORY ALT 34 10 - 40 U/L 04/27/2024 5:55 AM EST [facility] CL[facility]OLOG[facility] LABORATORY Bilirubin, Indirect 2.70(H) <=0.70 mg/dL 04/27/2024 5:55 AM EST [facility] CL[facility] PATHOLOG[facility] LABORAT[facility] A/G Ratio 1.7 1.5 - 3.0 04/27/2024 5:55 AM EST [facility] CLINICAL PATHOLOGY LABORATORY Blood Structure of peripheral vein / Unknown Venipuncture / Unknown 04/27/2024 5:00 AM EST 04/27/2024 5:20 AM EST us Rachel Murray MD LAB BLOOD ORDERABLES Final Resul t [facility] [employer] CLINICAL PATHOLOGY LABORATORY [address] [place] [address], * (ABNORMAL) Protime-INR (04/27/2024 5:00 AM EST) PT 17.2(H) 9.6 - 12.4 Seconds 04/27/2024 5:46 AM EST [facility] CL[facility]ICAL PATHOLOG[facility] LABORATORY INR 1.7 0.9 - 1.1 04/27/2024 5:46 AM EST [facility] [employer] CL[facility]OLOG[facility] LABORATORY Comment:The optimal therapeu tic INR range for patients treated with Vitamin K antagonists (VKAS, e.g., Warfarin) is 2.0 to 3.5. Discuss the desired range with your doctor/care team. Blood Structure of peripheral vein / Unknown Venipuncture / Unknown 04/27/2024 5:00 AM EST 04/27/2024 5:20 AM EST us Rachel Murray MD LAB BLOOD ORDERABLES Final Resul t [employer] CL[facility]ICAL PATHOLOG[facility] LABORATORY [address] [place] [address], * (ABNORMAL) CBC Auto Differential (04/27/2024 5:00 AM EST) WBC 10.2 3.8 - 10.8 10*3/uL 04/27/2024 5:28 AM EST [employer] [facility] [employer] CLINICAL PATHOLOGY LABORATORY RBC 3.57(L) 4.20 - 5.80 10*6/uL 04/27/2024 5:28 AM EST [employer] [facility] [employer] [facility]OLOG[facility] LABORATORY Hemoglobin 11.5(L) 13.2 - 17.1 g/dL 04/27/2024 5:28 AM EST [facility] [employer] CL[facility]OLOG[facility] LABORATORY Hematocrit 32.6(L) 38.5 - 50.0 % 04/27/2024 5:28 AM EST [employer] [facility] [employer] CL[facility]OLOG[facility] LABORATORY MCV 91.3 80.0 - 100.0 fL 04/27/2024 5:28 AM EST [employer] LAB[facility] MCH 32.2 27.0 - 33.0 pg 04/27/2024 5:28 AM EST [employer] [facility] [employer] CL[facility]OLOG[facility] LABORATORY MCHC 35.3 32.0 - 36.0 g/dL 04/27/2024 5:28 AM EST [facility] [employer] CL[facility]OLOG[facility] LABOR[facility] RDW 15.9(H) 11.0 - [...] % 11.2 % 04/27/2024 5:28 AM EST [facility] [employer] [facility] [employer] CL[facility]OLOG[facility] LABOR[facility]ORY Eosinophil % [...] - 0.20 10*3/uL 04/27/2024 5:28 AM EST [facility] CL[facility] PATHOLOG[facility] LABORAT[facility] nRBC % 0.0 /100 WBCs 04/27/2024 5:28 AM EST [facility] [employer] CL[facility] PATHOLOG[facility] LABORAT[facility] nRBC # <0.01 <0.01 10*3/uL 04/27/2024 5:28 AM EST [facility] CL[facility] PATHOLOG[facility] LABORATORY Blood Structure of peripheral vein / Unknown Venipuncture / Unknown 04/27/2024 5:00 AM EST 04/27/2024 5:20 AM EST us Rachel Murray MD LAB BLOOD ORDERABLES Final Resul t Performing Organization Address City/[facility]/ZIP Co de Phone Number [facility] CLINICAL PATHOLOGY LABORATORY [address] [place] [address], * Magnesium (04/27/2024 5:00 AM EST) MG 1.9 1.6 - 2.4 mg/dL 04/27/2024 5:52 AM EST [facility] CL[facility] PATHOLOG[facility] LABORATORY Blood Structure of peripheral vein / Unknown Venipuncture / Unknown 04/27/2024 5:00 AM EST 04/27/2024 5:20 AM EST us Rachel Murray MD LAB BLOOD ORDERABLES Final Resul t Performing Organization Address City/[facility]/ZIP Co de Phone Number [employer] CL[facility]OLOG[facility] LABORATORY [address] [place] [address], * (ABNORMAL) Basic Metabolic Panel (04/27/2024 5:00 AM EST) NA 133(L) 135 - 145 mmol/L 04/27/2024 5:52 AM EST [facility] [employer] CLINICAL PATHOLOGY LABORATORY K 3.7 3.5 - 5.3 mmol/L 04/27/2024 5:52 AM EST [facility] CL[facility]ICAL PATHOLOG[facility] LABORATORY Cl 103 98 - 107 mmol/L 04/27/2024 5:52 AM EST [facility] PATHOLOG[facility] LABORATORY CO2 16(L) 22 - 32 mmol/L 04/27/2024 5:52 AM EST [employer] CLINICAL PATHOLOGY LABORATORY BUN 13 7 - 23 mg/dL 04/27/2024 5:52 AM EST [facility] [employer] [employer] CLIN[facility] PATHOLOGY LABORATORY Creatinine 0.79 0.60 - 1.30 mg/dL 04/27/2024 5:52 AM EST [facility] Glucose 128(H) 65 - 99 mg/dL 04/27/2024 5:52 AM EST [facility] Calcium 8.8 8.6 - 10.5 mg/dL 04/27/2024 5:52 AM EST [facility] CLINICAL PATHOLOGY LABORATORY Anion Gap 14 5 - 15 04/27/2024 5:52 AM EST [facility] [employer] CL[facility] PATHOLOG[facility] LABORATORY eGFR >90 >=60 mL/min/1. 73m2 04/27/2024 5:52 AM EST [facility] CLINICAL PATHOLOGY LABORATORY Comment:The estimated glomer ular [...] MD LAB BLOOD ORDERABLES Final Resul t [facility] [employer] CL[facility]OLOG[facility] LABORATORY [address] [place] [address], * Vancomycin, Trough (04/26/2024 7:55 AM EST) Vancomycin Trough 14.2 10.0 - 20.0 ug/mL 04/26/2024 8:33 AM EST [facility] CL[facility] PATHOLOG[facility] LABORATORY Comment: Before interpreting a [...] ORDERABLES Final Re sult Performing Organization Address [facility] Co de Phone Number [facility] CLINICAL PATHOLOGY LABORATORY [address] [place] [address], [place] * (ABNORMAL) Smear Review (04/26/2024 5:01 AM EST) Platelet Estimate Decrease d(A) Adequate 04/26/2024 7:29 AM EST [facility] LAB[facility]AT[facility] Comment:PLT: Rare platelet c lumps, counts appear decreased RBC Morphology Present( A) Normal, No clinically significant RBC morphology present (ICSH guidelines, 2015). 04/26/2024 7:29 AM EST [facility] PATHOLOG[facility] LABORATORY Acanthocytes 2+(A) Not Present 04/26/2024 7:29 AM EST [facility] CL[facility] PATHOLOG[facility] LABORATORY [place] Cells 2+(A) Not Present 04/26/2024 7:29 AM EST [facility] LAB[facility] Blood Structure of peripheral vein / Unknown Venipuncture / Unknown 04/26/2024 5:01 AM EST 04/26/2024 5:29 AM EST Natalio Lara MD LAB BLOOD ORDERABLES Final Re sult Performing Organization Address [facility]/ZIP Co de Phone Number [facility] PATHOLOG[facility] LABORATORY [address] [place] [id number], [place] * (ABNORMAL) Hepatic function panel (04/26/2024 5:01 AM EST) Total Protein 5.7(L) 6.0 - 8.0 g/dL 04/26/2024 6:08 AM EST [facility] LAB[facility] Albumin 3.5 3.5 - 5.2 g/dL 04/26/2024 6:08 AM EST [facility] LAB[facility] Globulin, Total 2.2 2.1 - 4.2 g/dL 04/26/2024 6:08 AM EST [facility] LAB[facility] Bilirubin, Total 2.5(H) 0.2 - 1.2 mg/dL 04/26/2024 6:08 AM EST [facility]OLOG[facility] LABOR[facility]ORY Bilirubin, Direct 0.6(H) <=0.4 mg/dL 04/26/2024 6:08 AM EST [facility]OLOG[facility] LAB[facility] Alkaline Phosphatase 76 35 - 129 U/L 04/26/2024 6:08 AM EST [facility]OLOG[facility] LAB[facility] AST 34 10 - 40 U/L 04/26/2024 6:08 AM EST [facility] LAB[facility] ALT 20 10 - 40 U/L 04/26/2024 6:08 AM EST [facility]OLOG[facility] LABORATORY Bilirubin, Indirect 1.90(H) <=0.70 mg/dL 04/26/2024 6:08 AM EST [facility] LAB[facility] A/G Ratio 1.6 1.5 - 3.0 04/26/2024 6:08 AM EST [facility]OLOG[facility] LABORATORY Blood Structure of peripheral vein / Unknown Venipuncture / Unknown 04/26/2024 5:01 AM EST 04/26/2024 5:31 AM EST us Rachel Murray MD LAB BLOOD ORDERABLES Final Resul t [facility] LAB[facility] [address] [place] [address], * (ABNORMAL) Protime-INR (04/26/2024 5:01 AM EST) PT 16.1(H) 9.6 - 12.4 Seconds 04/26/2024 5:48 AM EST [facility] PATHOLOG[facility] LABORATORY INR 1.5 0.9 - 1.1 04/26/2024 5:48 AM EST [facility] [employer] CLINICAL PATHOLOGY LABORATORY Comment:The optimal therapeu tic INR range for patients treated with Vitamin K antagonists (VKAS, e.g., Warfarin) is 2.0 to 3.5. Discuss the desired range with your doctor/care team. Blood Structure of peripheral vein / Unknown Venipuncture / Unknown 04/26/2024 5:01 AM EST 04/26/2024 5:28 AM EST us Rachel Murray MD LAB BLOOD ORDERABLES Final Resul t [employer] CL[facility] PATHOLOG[facility] LABORATORY [address] [place] [address], [place] * (ABNORMAL) CBC Auto Differential (04/26/2024 5:01 AM EST) WBC 7.2 3.8 - 10.8 10*3/uL 04/26/2024 7:29 AM EST [facility] PATHOLOG[facility] LABORAT[facility] RBC 3.37(L) 4.20 - 5.80 10*6/uL 04/26/2024 7:29 AM EST [facility] [employer] CL[facility]ICAL [facility]OLOGY LABORATORY Hemoglobin 10.8(L) 13.2 - 17.1 g/dL 04/26/2024 7:29 AM EST [facility]OLOG[facility] LAB[facility]ATORY Hematocrit 30.9(L) 38.5 - 50.0 % 04/26/2024 7:29 AM EST [facility] [employer] CL[facility]OLOGY LABORATORY MCV 91.7 80.0 - 100.0 fL 04/26/2024 7:29 AM EST [facility] [employer] CLINICAL PATHOLOGY LABORATORY MCH 32.0 27.0 - [...] - 0.50 10*3/uL 04/26/2024 7:29 AM EST [employer] [facility] [employer] CLINICAL PATHOLOGY LABORATORY Basophil # 0.10 0.00 - 0.20 10*3/uL 04/26/2024 7:29 AM EST [facility] [employer] CLIN[facility] PATHOLOGY LABORATORY nRBC % 0.0 /100 WBCs 04/26/2024 7:29 AM EST [facility] [employer] CL[facility] PATHOLOGY LABORATORY nRBC # <0.01 <0.01 10*3/uL 04/26/2024 7:29 AM EST [facility] CLINICAL PATHOLOGY LABORATORY Blood Structure of peripheral vein / Unknown Venipuncture / Unknown 04/26/2024 5:01 AM EST 04/26/2024 5:29 AM EST us Rachel Murray MD LAB BLOOD ORDERABLES Final Resul t Performing Organization Address City/[facility]/ZIP Co de Phone Number [facility] [address] [place] [address], * Magnesium (04/26/2024 5:01 AM EST) MG 1.9 1.6 - 2.4 mg/dL 04/26/2024 6:08 AM EST [facility]OLOG[facility] LABORAT[facility] Blood Structure of peripheral vein / Unknown Venipuncture / Unknown 04/26/2024 5:01 AM EST 04/26/2024 5:31 AM EST Rachel Murray MD LAB BLOOD ORDERABLES Final Resul t [facility] [address] [place] [address], * (ABNORMAL) Basic Metabolic Panel (04/26/2024 5:01 AM EST) NA 132(L) 135 - 145 mmol/L 04/26/2024 6:08 AM EST [facility] LAB[facility] K 3.7 3.5 - 5.3 mmol/L 04/26/2024 6:08 AM EST [facility]OLOG[facility] LABORAT[facility] Cl 103 98 - 107 mmol/L 04/26/2024 6:08 AM EST [employer] [facility] [employer] CLINICAL PATHOLOGY LABORATORY CO2 17(L) 22 - 32 mmol/L 04/26/2024 6:08 AM EST [employer] [facility] [employer] CLINICAL PATHOLOGY LABORATORY BUN 17 7 - 23 mg/dL 04/26/2024 6:08 AM EST [employer] [employer] CL[facility]OLOGY LABORATORY Creatinine 0.73 0.60 - 1.30 mg/dL 04/26/2024 6:08 AM EST [employer] [facility] [employer] CLINICAL PATHOLOGY LABORATORY Glucose 122(H) 65 - 99 mg/dL 04/26/2024 6:08 AM EST [facility] [employer] CL[facility]ICAL PATHOLOGY LABORATORY Calcium 8.7 8.6 - 10.5 mg/dL 04/26/2024 6:08 AM EST [employer] [facility] [employer] CLINICAL PATHOLOGY LABORATORY Anion Gap 12 5 - 15 04/26/2024 6:08 AM EST [facility] LAB[facility] eGFR >90 >=60 mL/min/1. 73m2 04/26/2024 6:08 AM EST [facility] LABORATORY Comment:The estimated glomer ular [...] MD LAB BLOOD ORDERABLES Final Resul t [employer] [facility] LABOR[facility]ORY [address] [place] [address], * Lactic Acid, Plasma (04/26/2024 5:01 AM EST) Lactic Acid 1.6 0.5 - 1.9 mmol/L 04/26/2024 6:06 AM EST [facility] CL[facility] PATHOLOGY LABORATORY Comment: Sepsis Screening: Initial Lactate Level >2.0 mmol/L - Repeat Lactate Level within 3 hours. Initial Lactate Level >4.0 mmol/L - Repeat Lactate Level within 3 hours, Initiate Septic Shock Protocol. Blood Structure of peripheral vein / Unknown Venipuncture / Unknown 04/26/2024 5:01 AM EST 04/26/2024 5:31 AM EST us Natalio Lara MD LAB BLOOD ORDERABLES Final Re sult [facility] [employer] CLINICAL PATHOLOGY LABORATORY [address] [place] [address], [place] * CT 3 Phase Liver Mass [...] obtain the completed interpretation. ? Workstation ID: [id number] Narrative 04/25/2024 4:52 PM EST EXAMINATION: CT [...] disease. No acute fracture. Resulting Agency Comment [id number] Procedure Note Cheryl Pitts MD - 04/25/2024 [...] possible to obtain thecompleted interpretation. Workstation ID: [id number] us Natalio Lara MD IMG CT PROCEDURES Final Resul t * (ABNORMAL) Lactic Acid, Plasma (04/25/2024 11:31 AM EST) Lactic Acid 2.6(H) 0.5 - 1.9 mmol/L 04/25/2024 12:36 PM EST [facility] LAB[facility] Comment: Sepsis Screening: Initial Lactate Level >2.0 mmol/L - Repeat Lactate Level within 3 hours. Initial Lactate Level >4.0 mmol/L - Repeat Lactate Level within 3 hours, Initiate Septic Shock Protocol. Blood Structure of peripheral vein / Unknown Venipuncture / Unknown 04/25/2024 11:31 AM EST 04/25/2024 12:07 PM EST Natalio Lara MD LAB BLOOD ORDERABLES Final Re sult [facility] LABORATORY [address] [place] [address], * MRSA/S aureus PCR, Nasal (04/25/2024 6:13 AM EST) MRSA PCR, Nasal NOT DETECTED NOT DETECTED 04/25/2024 3:29 PM EST [facility] S. aureus PCR, Nasal NOT DETECTED NOT DETECTED 04/25/2024 3:29 PM EST [facility] Swab Nasal structure / Unknown Non-Blood Collection / Unknown 04/25/2024 6:13 AM EST 04/25/2024 6:26 AM EST Narrative [facility] - 04/25/2024 3:29 PM EST [facility] Received Date: us Natalio Lara MD LAB BODY FLUIDS AND STOOLS OR DERABLES Final Result Performing Organization Address City/[facility]/ZIP Co de Phone Number [facility] [address], [place] [address], [place] [phone] [facility] [address], [place] [address], [place] [phone] * Harvey Top, Urine (04/25/2024 6:10 AM EST) Pathologist [facility] Extra Tube Hold for add-ons. 04/25/2024 11:05 AM EST [facility]OLOG[facility] LAB[facility] Comment:Auto resulted. Urine Urine specimen collection, clean catch / Unknown Non-Blood Collection / Unknown 04/25/2024 6:10 AM EST 04/25/2024 6:26 AM EST us Natalio Lara MD LAB URINE ORDERABLES Final Re sult Performing Organization Address City/[facility]/ZIP Co de Phone Number [facility] CL[facility]ICAL PATHOLOG[facility] LABORATORY [address] [place] [address], [place] * (ABNORMAL) Urinalysis W/Reflex to Microscopic & Culture (04/25/2024 6:10 AM EST) Color, Urine Deann(A) Colorless, Light Yellow, Yellow, Dark Yellow 04/25/2024 6:39 AM EST [facility] LAB[facility] Clarity, Urine Clear Clear 04/25/2024 6:39 AM EST [facility] CL[facility] PATHOLOG[facility] LABOR[facility]ORY Specific [place], Urine 1.029 1.005 - 1.030 04/25/2024 6:39 AM EST [facility] LAB[facility] pH, Urine 5.0 4.6 - 8.0 04/25/2024 6:39 AM EST [facility] Protein, Urine 1+(A) Negative 04/25/2024 6:39 AM EST [facility] LAB[facility] Glucose, Urine Negative Negative 04/25/2024 6:39 AM EST [facility] LAB[facility] Ketones, Urine Negative Negative 04/25/2024 6:39 AM EST [facility] CLINICAL PATHOLOGY LABORATORY Bilirubin, Urine Negative Negative 04/25/2024 6:39 AM EST [facility] Blood, Urine 1+(A) Negative 04/25/2024 6:39 AM EST [facility] Nitrite, Urine Negative Negative 04/25/2024 6:39 AM EST [facility] Urobilinogen, Urine Normal Normal 04/25/2024 6:39 AM EST [facility] Leukocyte Esterase, Urine Negative Negative 04/25/2024 6:39 AM EST [facility] WBC, Urine 2 0 - 2 /HPF 04/25/2024 6:39 AM EST [facility] RBC, Urine 1 0 - 2 /HPF 04/25/2024 6:39 AM EST [facility] Hyaline Casts, Urine 1 0 - 2 /LPF 04/25/2024 6:39 AM EST [facility] Squamous Epithelial Cells, Urine <1 /HPF 04/25/2024 6:39 AM EST [facility] Bacteria, Urine None None /HPF /HPF 04/25/2024 6:39 AM EST [facility] Urine Urine specimen collection, clean catch / Unknown Non-Blood Collection / Unknown 04/25/2024 6:10 AM EST 04/25/2024 6:26 AM EST us Natalio Lara MD LAB URINE ORDERABLES Final Re sult [facility] [address] [place] [address], * (ABNORMAL) Hepatic function panel (04/25/2024 6:09 AM EST) Total Protein 6.4 6.0 - 8.0 g/dL 04/25/2024 6:59 AM EST [facility] LABOR[facility] Albumin 3.2(L) 3.5 - 5.2 g/dL 04/25/2024 6:59 AM EST [facility] Globulin, Total 3.2 2.1 - 4.2 g/dL 04/25/2024 6:59 AM EST [facility] Bilirubin, Total 3.0(H) 0.2 - 1.2 mg/dL 04/25/2024 6:59 AM EST [facility] LAB[facility] Bilirubin, Direct 0.9(H) <=0.4 mg/dL 04/25/2024 6:59 AM EST [facility] Alkaline Phosphatase 92 35 - 129 U/L 04/25/2024 6:59 AM EST [facility] AST 39 10 - 40 U/L 04/25/2024 6:59 AM EST [facility] ALT 24 10 - 40 U/L 04/25/2024 6:59 AM EST [facility] Bilirubin, Indirect 2.10(H) <=0.70 mg/dL 04/25/2024 6:59 AM EST [facility] A/G Ratio 1.0(L) 1.5 - 3.0 04/25/2024 6:59 AM EST [employer] CLINICAL PATHOLOGY LABORATORY Blood Structure of peripheral vein / Unknown Venipuncture / Unknown 04/25/2024 6:09 AM EST 04/25/2024 6:28 AM EST us Rachel Murray MD LAB BLOOD ORDERABLES Final Resul t [facility] [address] [place] [address], * (ABNORMAL) Protime-INR (04/25/2024 6:09 AM EST) PT 17.1(H) 9.6 - 12.4 Seconds 04/25/2024 6:45 AM EST [facility] INR 1.6 0.9 - 1.1 04/25/2024 6:45 AM EST [facility] Comment:The optimal therapeu tic INR range for patients treated with Vitamin K antagonists (VKAS, e.g., Warfarin) is 2.0 to 3.5. Discuss the desired range with your doctor/care team. Blood Structure of peripheral vein / Unknown Venipuncture / Unknown 04/25/2024 6:09 AM EST 04/25/2024 6:28 AM EST us Rachel Murray MD LAB BLOOD ORDERABLES Final Resul t [facility] [address] [place] [address], * (ABNORMAL) CBC Auto Differential (04/25/2024 6:09 AM EST) Pathologist [facility] WBC 14.1(H) 3.8 - 10.8 10*3/uL 04/25/2024 6:38 AM EST [facility] LAB[facility] RBC 4.16(L) 4.20 - 5.80 10*6/uL 04/25/2024 6:38 AM EST [facility] Hemoglobin 13.1(L) 13.2 - 17.1 g/dL 04/25/2024 6:38 AM EST [facility] Hematocrit 38.7 38.5 - 50.0 % 04/25/2024 6:38 AM EST [facility] MCV 93.0 80.0 - 100.0 fL 04/25/2024 6:38 AM EST [facility] LAB[facility] MCH 31.5 27.0 - [...] - 0.50 10*3/uL 04/25/2024 6:38 AM EST [employer] [facility] CLINICAL [facility]OLOGY LABORATORY Basophil # 0.10 0.00 - 0.20 10*3/uL 04/25/2024 6:38 AM EST [facility] LAB[facility] nRBC % 0.0 /100 WBCs 04/25/2024 6:38 AM EST [facility] CL[facility] LABORAT[facility] nRBC # <0.01 <0.01 10*3/uL 04/25/2024 6:38 AM EST [facility] CL[facility] LABORATORY Blood Structure of peripheral vein / Unknown Venipuncture / Unknown 04/25/2024 6:09 AM EST 04/25/2024 6:28 AM EST us Rachel Murray MD LAB BLOOD ORDERABLES Final Resul t Performing Organization Address City/[facility]/ZIP Co de Phone Number [facility] CLINICAL PATHOLOG[facility] LABORATORY [address] [place] [address], [place] * Magnesium (04/25/2024 6:09 AM EST) MG 2.0 1.6 - 2.4 mg/dL 04/25/2024 6:59 AM EST [facility] LAB[facility] Blood Structure of peripheral vein / Unknown Venipuncture / Unknown 04/25/2024 6:09 AM EST 04/25/2024 6:28 AM EST us Rachel Murray MD LAB BLOOD ORDERABLES Final Resul t [facility] CL[facility] LABORATORY [address] [place] [address], * (ABNORMAL) Basic Metabolic Panel (04/25/2024 6:09 AM EST) NA 130(L) 135 - 145 mmol/L 04/25/2024 6:59 AM EST [employer] [facility] CL[facility]ICAL PATHOLOGY LABORATORY K 4.2 3.5 - 5.3 mmol/L 04/25/2024 6:59 AM EST [facility] Cl 100 98 - 107 mmol/L 04/25/2024 6:59 AM EST [facility] CO2 17(L) 22 - 32 mmol/L 04/25/2024 6:59 AM EST [facility] BUN 24(H) 7 - 23 mg/dL 04/25/2024 6:59 AM EST [facility] Creatinine 1.05 0.60 - 1.30 mg/dL 04/25/2024 6:59 AM EST [facility] Glucose 132(H) 65 - 99 mg/dL 04/25/2024 6:59 AM EST [facility] Calcium 8.6 8.6 - 10.5 mg/dL 04/25/2024 6:59 AM EST [facility] Anion Gap 13 5 - 15 04/25/2024 6:59 AM EST [facility] eGFR 79 >=60 mL/min/1. 73m2 04/25/2024 6:59 AM EST [facility] CL[facility]ICAL [facility] LABORATORY Comment:The estimated glomer ular [...] ORDERABLES Final Resul t Performing Organization Address City/[facility] de Phone Number [facility] CLINICAL PATHOLOG[facility] LABORATORY [address] [place] [phone], * (ABNORMAL) Lactic Acid, Plasma (04/24/2024 11:39 PM EST) Lactic Acid 2.4(H) 0.5 - 1.9 mmol/L 04/25/2024 12:48 AM EST [facility] [employer] [employer] CLINICAL PATHOLOGY LABORATORY Comment: Sepsis Screening: Initial [...] ORDERABLES Final Re sult Performing Organization Address [facility] de Phone Number [facility] [employer] [facility] [employer] CLINICAL PATHOLOGY LABORATORY [address] [place] [phone], [place] * X-Ray Chest 1 View (04/24/2024 [...] obtain the completed interpretation. ? Workstation ID: [id number] Narrative 04/26/2024 3:32 PM EST COMPARISON: ??04/11/2024 FINDINGS AND Resulting Agency Comment [id number] Procedure Note Jeyson Silva MD - 04/26/2024 [...] possible to obtain thecompleted interpretation. Workstation ID: [id number] us aNtalio Lara MD IMG XR PROCEDURES Final Resul t * (ABNORMAL) Lactic Acid, Plasma (04/24/2024 9:18 PM EST) Lactic Acid 3.3(H) 0.5 - 1.9 mmol/L 04/24/2024 10:13 PM EST [employer] CLINICAL PATHOLOGY LABORATORY Comment: Sepsis Screening: Initial Lactate Level >2.0 mmol/L - Repeat Lactate Level within 3 hours. Initial Lactate Level >4.0 mmol/L - Repeat Lactate Level within 3 hours, Initiate Septic Shock Protocol. Blood Structure of peripheral vein / Unknown Venipuncture / Unknown 04/24/2024 9:18 PM EST 04/24/2024 9:46 PM EST us Natalio Lara MD LAB BLOOD ORDERABLES Final Re sult [facility] [address] [place] [address], [place] * Blood Culture (04/24/2024 6:13 PM EST) Culture No growth after 5 days 04/29/2024 10:25 PM EST [facility] Blood Structure of peripheral vein / Unknown Venipuncture / Unknown 04/24/2024 6:13 PM EST 04/24/2024 6:35 PM EST Narrative [facility] - 04/29/2024 10:25 PM EST [facility] Received Date: MICRO NUMBER: [id number] SPECIMEN QUALITY: Suboptimal SOURCE: BLOOD VENOUS, PERIPHERAL STATUS: FINAL COMMENT: Aerobic and anaerobic bottle received. Inspection of blood culture bottles indicates that an inadequate volume of blood may have been collected for the detection of sepsis. Dana Samuels MD LAB MICROBIOLOGY - GENERAL ORDERABLES Final Result [facility] [address], [place] [address], [place] [phone] [facility] [address], [place] [address], * Blood Culture (04/24/2024 6:13 PM EST) Culture No growth after 5 days 04/29/2024 10:19 PM EST [employer] Blood Structure of peripheral vein / Unknown Venipuncture / Unknown 04/24/2024 6:13 PM EST 04/24/2024 6:35 PM EST Narrative [facility] - 04/29/2024 10:19 PM EST [facility] Received Date: MICRO NUMBER: [id number] SPECIMEN QUALITY: Suboptimal SOURCE: BLOOD VENOUS, PERIPHERAL STATUS: FINAL COMMENT: Aerobic and anaerobic bottle received. Inspection of blood culture bottles indicates that an inadequate volume of blood may have been collected for the detection of sepsis. Dana Samuels MD LAB MICROBIOLOGY - GENERAL ORDERABLES Final Result Performing Organization Address City/[facility]/ZIP Co de Phone Number [facility] [address], [place] [address], [place] [phone] [email or web address] [facility] [address], [place] [address], [place] [phone] documented in this encounter Visit Diagnoses Diagnosis SBP (spontaneous bacterial peritonitis) (HCC)- Primary Spontaneous bacterial peritonitis Spontaneous bacterial peritonitis (HCC) Spontaneous bacterial peritonitis Cholecystitis Cholecystitis, unspecified Decompensated cirrhosis (HCC) Decompensated cirrhosis (HCC) Moderate protein-calorie malnutrition (CMS/HCC) Hyperlipidemia Other and unspecified hyperlipidemia Sepsis (HCC) Hyponatremia Hyposmolality and/or hyponatremia Cholecystitis Cholecystitis, unspecified Encounter for removal of biliary stent documented [...] Given 04/30/2024 9:13 AM EST 40 mg lactulose 20 gram/30 mL oral solution 20 [...] Provider) 0907 (New Bag/Syringe - Provider: Sarah Adams RN) enoxaparin (LOVENOX) subcutaneous injection 40 mg [...] Lipscomb RN) 0906 (Given - Provider: Sarah Adams, LATOSHA) lactulose 20 gram/30 mL oral solution 20 [...] Amy Lipscomb RN)2042 (Given - Provider: Diana White, RN) 0513 (Given - Provider: Diana White [...] 2 (MAR Unhold - Provider: Amy Lipscomb RN) 0020 [...] section. 0828 (Given - Provider: Desirae Olea RN)2019 (Given - Provider: Alem Brambila RN) 0812 (Given - Provider: Amy Lipscomb RN)1208 ([facility] Hold - Provider: Automatic Transfer Provider - Reason: Procedure/Surgery)183 2 ([facility] Unhold - Provider: Amy Lipscomb RN)2045 (Given - Provider: Diana White RN) 0907 (Given - Provider: Sarah Adams RN) PRN Medication Order 05/01/2024 05/02/2024 05/03/2024 acetaminophen [...] (Given - Provider: Desirae Olea RN) 1208 ([facility] Hold - Provider: Automatic Transfer Provider - Reason: Procedure/Surgery)18 32 ([facility] Unhold - Provider: Amy Lipscomb RN) 0350 [...] or more, give up to: 200 mcg 172 (Given - Provider: Dana Cloud RN) flumazeniL [...] to reevaluate the patient's opioid orders. 1209 ([facility] Hold - Provider: Automatic Transfer Provider - Reason: Procedure/Surgery)18 32 ([facility] Unhold - Provider: Amy Lipscomb RN) naloxone [...] a final concentration of 0.04 mg/mL. 1209 ([facility] Hold - Provider: Automatic Transfer Provider - Reason: Procedure/Surgery)18 32 ([facility] Unhold - Provider: Amy Lipscomb RN) senna (SENOKOT) tablet 17.2 mg 17.2 mg, oral, Nightly PRN, constipation, no bowel movement x 24 hours, Starting on Shirin 04/24/24 at 2046, Until 05/03/24 at 1854, . 1208 ([facility] Hold - Provider: Automatic Transfer Provider - [...] See admin instructions, Starting on Sun04/24/24 at 2044, Until 05/03/24 at 1854, Flush [...] mcg documented in this encounter Care Teams Patient Assessment Coordinator Relationship Specialty Start Date End Date Jade Harper [address] [place] [address] dr Charly Parks, [place] [address] PCP - General Internal Medicine 03/06/24 documented as of this encounter
--- OUTSIDE RECORDS SUMMARY | 2024-05-28 11:41 | XMS_ITS | Encounter Summary ---
Author Organization [facility] Address [address] [place] [address] Care Team Providers Care Imaging Technologist Name Role Phone Jade Harper Primary Care Provider [phone] Encounter Details Date Type Department Care Team (Late st Contact Info) Description 05/16/2024 Voiceitt Message [facility] Transplant Services [address] [place] [address] Mike Low MD [address] [place] [address] paracentesis (fluid tap) Social History Tobacco Use Types Packs/Day Years Used Date Smoking Tobacco: Never Smokeless Tobacco: Never Alcohol Use Standard Drinks/Week Comments Not Currently 8 (1 standard drink = 0.6 oz pur e alcohol) sober since 11/2023 [facility] Utilities Answer Date Recorded In the past 12 months has [employer], gas, oil, or water company threatened [...] AM EST Appointment [facility] Interventional Radiology [address] [place] [address] Mike Rey i, MD [address] [place] [phone] 5 10:30 AM EDT Appointment [facility]iology [address] [place] [address] Mike Rey i, MD [address] [place] [phone] 5 2:00 PM EDT Pre-Admission Testing [facility] [address] [facility] [address] [place] [address] 5 10:00 AM EDT Appointment [facility] Interventional Radiology [address] [place] [address] Mike Rey i, MD [address] [place] [address] 5 10:30 AM EDT Appointment [facility]iology [address] [place] [address] Mike Rey i, MD [address] [place] [address] 5 9:00 AM EDT Pre-Admission Testing [facility] [address] [facility] [address] [place] [address] 5 10:30 AM EDT Appointment [facility]iology [address] [place] [address] Mike Rey i, MD [address] [place] [phone] 5 10:30 AM EDT Appointment [facility]iology [address] [place] [address] Mike Rey i, MD [address] [place] [phone] 5 8:30 AM EDT Hospital Encounter [facility] Operating Room [address] [place] [address] Rachel Murray MD [address] [place] [phone] 5 8:30 AM EDT - 5 9:30 AM EDT Surgery [facility] Operating Room [address] [place] [address] Rachel Murray MD [address] [place] [phone] ENDOSCOPIC RETROGRADE CHOLANGIOPANCREATOGRAPHY WITH REMOVAL OF FOREIGN BODY(S)/STENT(S)/PANCREATIC DUCT(S) WITH POSSIBLE MODERATE SEDATION [37447 (CPT??)] 5 10:30 AM EDT Appointment [facility] Inter[facility]iology [address] [place] [address] Mike Rey i, MD [address] [place] [phone] 5 4:30 PM EDT Follow-Up [facility] Transplant Services [address] [place] [address] Mike Rey i, MD [address] [place] [address] 5 10:30 AM EDT Appointment [facility]iology [address] [place] [address] Mike Rey i, MD [address] [place] [phone] 5 10:30 AM EDT Appointment [facility] [address] [place] [address] Mike Rey i, MD [address] [place] [id number] 5 10:30 AM EDT Appointment [facility] [address] [place] [address] Mike Rey i, MD [address] [place] [phone] 5 10:30 AM EDT Appointment [facility] [address] [place] [address] Mike Rey i, MD [address] [place] [phone] 5 10:30 AM EDT Appointment [facility] [address] [place] [address] Mike Rey i, MD [address] [place] [phone] 5 10:30 AM EDT Appointment [facility] [address] [place] [address] Mike Rey i, MD [address] [place] [phone] 5 10:30 AM EDT Appointment [facility] [address] [place] [address] Mike Rey i, MD [address] [place] [phone] 5 10:30 AM EDT Appointment [facility] [address] [place] [address] Mike Rey i, MD [address] [place] [address] 5 10:30 AM EDT Appointment [facility] [address] [place] [address] Mike Rey i, MD [address] [place] [phone] 5 10:30 AM EDT Appointment [facility] [address] [place] [address] Mike Rye i, MD [address] [place] [address] 10:30 AM EDT Appointment [facility]iology [address] [place] [address] Vasquez-Mike Waters i, MD [address] [place] [address] Scheduled Procedures Name Priority Associated Diagnoses Date/Ti wv ENDOSCOPIC RETROGRADE CHOLANGIOPANCREATOGRAPHY WITH REMOVAL OF FOREIGN BODY(S)/STENT(S)/PANCREATIC DUCT(S) WITH POSSIBLE MODERATE SEDATION Encounter for removal of biliary stent 07/04/2024 8:30 AM EDT LAPAROSCOPIC CHOLECYSTECTOMY Acute cholecystitis documented as of this encounter Visit Diagnoses Not on filedocumented in this encounter Care Teams Imaging Technologist Relationship Specialty Start Date End Date Jade Harper [address] [place] [address] [place] [address] PCP - General Internal Medicine 03/06/24 documented as of this encounter
--- OUTSIDE RECORDS SUMMARY | 2024-05-28 11:41 | XMS_ITS | Encounter Summary ---
Author Organization [facility] Address [address] [place] [address] Care Team Providers Care Lime Sludge Kiln Operator Name Role Phone Jade Harper Primary Care Provider [phone] Encounter Details Date Type Department Care Team (Late st Contact Info) Description 05/22/2024 Telephone [facility] Interventional Radiology [address] [place] [address] Hoa Durbin RN Social History Tobacco Use Types Packs/Day Years Used Date Smoking Tobacco: Never Smokeless Tobacco: Never Alcohol Use Standard Drinks/Week Comments Not Currently 8 (1 standard drink = 0.6 oz pur e alcohol) sober since 11/2023 [facility] Utilities Answer Date Recorded In the past 12 months has [employer], gas, oil, or water [employer] threatened to shut off services in your [...] Info) Description 5 10:30 AM EST Appointment [facility] Interventional Radiology [address] [place] [address] 09644 Mike Rey i, MD [address] [place] [address] 36655 5 10:30 AM EDT Appointment [facility] Interventional Radiology [address] [place] [address] Mike Rey i, MD [address] [place] [address] 29861 5 2:00 PM EDT Pre-Admission Testing [facility] Pre Surgical Center [address] [place] [address] 46335 5 10:00 AM EDT Appointment [facility] Interventional Radiology [address] [place] [address] Mike Rey i, MD [address] [place] [address] 69689 5 10:30 AM EDT Appointment [facility] Interventional Radiology [address] [place] [address] 38261 Mike Rey i, MD [address] [place] [address] 5 9:00 AM EDT Pre-Admission Testing [facility] Pre Surgical Center [address] [facility] 3rd [place] [address] 5 10:30 AM EDT Appointment [facility] Interventional Radiology [address] [place] [address] 13299 Mike Rey i, MD [address] [place] [address] 5 10:30 AM EDT Appointment [facility] Interventional Radiology [address] [place] [address] 84194 Mike Rey i, MD [address] [place] [address] 15174 5 8:30 AM EDT Hospital Encounter [facility] Operating Room [address] [place] [address] Rachel Murray MD [address] [place] [address] 59601 5 8:30 AM EDT - 5 9:30 AM EDT Surgery [facility] Operating Room [address] [place] [address] Rachel Murray MD [address] [place] [address] 82045 ENDOSCOPIC RETROGRADE CHOLANGIOPANCREATOGRAPHY WITH REMOVAL OF FOREIGN BODY(S)/STENT(S)/PANCREATIC DUCT(S) WITH POSSIBLE MODERATE SEDATION [24726 (CPT??)] 5 10:30 AM EDT Appointment [facility] Interventional Radiology [address] [place] [address] 29354 Mike Rey i, MD [address] [place] [address] 68083 5 4:30 PM EDT Follow-Up [facility] Liver Transplant Services [address] [place] [address] 78331 Mike Rey i, MD [address] [place] [address] 45034 5 10:30 AM EDT Appointment [facility] Interventional Radiology [address] [place] [address] 15722 Mike Rey i, MD [address] [place] [address] 94613 5 10:30 AM EDT Appointment [facility] Interventional Radiology [address] [place] [address] 40288 Mike Rey i, MD [address] [place] [address] 87082 5 10:30 AM EDT Appointment [facility] Interventional Radiology [address] [place] [address] 96195 Mike Rey i, MD [address] [place] [address] 20651 5 10:30 AM EDT Appointment [facility] Interventional Radiology [address] [place] [address] 06952 Mike Rey i, MD [address] [place] [address] 19965 5 10:30 AM EDT Appointment [facility] Interventional Radiology [address] [place] [address] 13477 Mike Rey i, MD [address] [place] [address] 09643 5 10:30 AM EDT Appointment [facility] Interventional Radiology [address] [place] [address] 42716 Mike Rey i, MD [address] [place] [address] 25583 5 10:30 AM EDT Appointment [facility] Interventional Radiology [address] [place] [address] 07476 Mike Rey i, MD [address] [place] [address] 79703 5 10:30 AM EDT Appointment [facility] Interventional Radiology [address] [place] [address] 08724 Mike Rey i, MD [address] [place] [address] 49760 5 10:30 AM EDT Appointment [facility] Interventional Radiology [address] [place] [address] 55412 Mike Rey i, MD [address] [place] [address] 87441 5 10:30 AM EDT Appointment [facility] Interventional Radiology [address] [place] [address] 68087 Mike Rey i, MD [address] [place] [address] 16555 5 10:30 AM EDT Appointment [facility] Interventional Radiology [address] [place] [address] Mike Rey i, MD [address] [place] [address] [phone] Scheduled Procedures Name Priority Associated Diagnoses Date/Ti me ENDOSCOPIC RETROGRADE CHOLANGIOPANCREATOGRAPHY WITH REMOVAL OF FOREIGN BODY(S)/STENT(S)/PANCREATIC DUCT(S) WITH POSSIBLE MODERATE SEDATION Encounter for removal of biliary stent 07/04/2024 8:30 AM EDT LAPAROSCOPIC CHOLECYSTECTOMY Acute cholecystitis documented as of this encounter Visit Diagnoses Not on filedocumented in this encounter Care Teams Lime Sludge Kiln Operator Relationship Specialty Start Date End Date Jade Harper [address] [place] [address] [place] [address] PCP - General Internal Medicine 03/06/24 documented as of this encounter
--- OUTSIDE RECORDS SUMMARY | 2024-05-28 11:41 | XMS_ITS | Encounter Summary ---
Author Organization [facility] Address [address] [place] [address] Care Team Providers Care Cokeman Name Role Phone Jade Harper Primary Care Provider [phone] Encounter Details Date Type Department Care Team (Late st Contact Info) Description 05/20/2024 Air[employer] Message [facility] Liver Transplant Services [address] [place], [place] [phone] Lorie Mahoney RN [employer] Social History Tobacco Use Types Packs/Day Years Used Date Smoking Tobacco: Never Smokeless Tobacco: Never Alcohol Use Standard Drinks/Week Comments Not Currently 8 (1 standard drink = 0.6 oz pur e alcohol) sober since 11/2023 [facility] Utilities Answer Date Recorded In the past 12 months has [employer], gas, oil, or water [employer] threatened to shut off services in your [...] Info) Description 5 10:30 AM EST Appointment [facility] Interventional Radiology [address] [place] [address] 77292 Mike Rey i, MD [address] [place] [address] 75112 5 10:30 AM EDT Appointment [facility] Interventional Radiology [address] [place] [address] 58001 Mike Rey i, MD [address] [place] [address] 33710 5 2:00 PM EDT Pre-Admission Testing [facility] Pre Surgical Center [address] [place] [address] 13758 5 10:00 AM EDT Appointment [facility] Interventional Radiology [address] [place] [address] Mike Rey i, MD [address] [place] [address] 5 10:30 AM EDT Appointment [facility] Interventional Radiology [address] [place] [address] 92953 Mike Rey i, MD [address] [place] [address] 5 9:00 AM EDT Pre-Admission Testing [facility] Surgical [facility] [address] [facility] 3rd [place] [address] 5 10:30 AM EDT Appointment [facility] Interventional Radiology [address] [place] [address] 04442 Mike Rey i, MD [address] [place] [address] 5 10:30 AM EDT Appointment [facility] Interventional Radiology [address] [place] [address] 22510 Mike Rey i, MD [address] [place] [address] 85747 5 8:30 AM EDT Hospital Encounter [facility] Operating Room [address] [place] [address] Rachel Murray MD [address] [place] [address] 80809 5 8:30 AM EDT - 5 9:30 AM EDT Surgery [facility] Operating Room [address] [place] [address] Rachel Murray MD [address] [place] [address] 09712 ENDOSCOPIC RETROGRADE CHOLANGIOPANCREATOGRAPHY WITH REMOVAL OF FOREIGN BODY(S)/STENT(S)/PANCREATIC DUCT(S) WITH POSSIBLE MODERATE SEDATION [13845 (CPT??)] 5 10:30 AM EDT Appointment [facility] Interventional Radiology [address] [place] [address] Mike Rey i, MD [address] [place] [address] 00682 5 4:30 PM EDT Follow-Up [facility] Liver Transplant Services [address] [place] [address] 72358 Mike Rey i, MD [address] [place] [address] 78916 5 10:30 AM EDT Appointment [facility] Interventional Radiology [address] [place] [address] 69098 Mike Rey i, MD [address] [place] [address] 13944 5 10:30 AM EDT Appointment [facility] Interventional Radiology [address] [place] [address] 55143 Mike Rey i, MD [address] [place] [address] 32055 5 10:30 AM EDT Appointment [facility] Interventional Radiology [address] [place] [address] 37913 Mike Rey i, MD [address] [place] [address] 32534 5 10:30 AM EDT Appointment [facility] Interventional Radiology [address] [place] [address] 61894 Mike Rey i, MD [address] [place] [address] 04496 5 10:30 AM EDT Appointment [facility] Interventional Radiology [address] [place] [address] 98398 Mike Rey i, MD [address] [place] [address] 50217 5 10:30 AM EDT Appointment [facility] Interventional Radiology [address] [place] [address] 31932 Mike Rey i, MD [address] [place] [address] 16579 5 10:30 AM EDT Appointment [facility] Interventional Radiology [address] [place] [address] 75535 Mike Rey i, MD [address] [place] [address] 16072 5 10:30 AM EDT Appointment [facility] Interventional Radiology [address] [place] [address] 52454 Mike Rey i, MD [address] [place] [address] 66130 5 10:30 AM EDT Appointment [facility] Interventional Radiology [address] [place] [address] 94136 Mike Rey i, MD [address] [place] [address] 29602 5 10:30 AM EDT Appointment [facility] Interventional Radiology [address] [place] [address] 13099 Mike Rey i, MD [address] [place] [address] 61640 10:30 AM EDT Appointment [facility] Interventional Radiology [address] [place] [address] Mike Rey i, MD [address] [place] [address] 80921 Scheduled Procedures Name Priority Associated Diagnoses Date/Ti me ENDOSCOPIC RETROGRADE CHOLANGIOPANCREATOGRAPHY WITH REMOVAL OF FOREIGN BODY(S)/STENT(S)/PANCREATIC DUCT(S) WITH POSSIBLE MODERATE SEDATION Encounter for removal of biliary stent 07/04/2024 8:30 AM EDT LAPAROSCOPIC CHOLECYSTECTOMY Acute cholecystitis documented as of this encounter Visit Diagnoses Not on filedocumented in this encounter Care Teams Cokeman Relationship Specialty Start Date End Date Jade Harper [address] [place] [address] [place] [address] PCP - General Internal Medicine 03/06/24 documented as of this encounter
--- OUTSIDE RECORDS SUMMARY | 2024-05-28 11:41 | XMS_ITS | Encounter Summary ---
Author Organization [facility] Address [address] [place] [address] Care Team Providers Care Utility Sales And Service Manager Name Role Phone Jade Harper Primary Care Provider [phone] Encounter Details Date Type Department Care Team (Late st Contact Info) Description 05/16/2024 Results Follow-Up [facility] Liver Transplant Services [address] [place], [place] [phone] Alondra Aceves RN Social History Tobacco Use Types Packs/Day Years Used Date Smoking Tobacco: Never Smokeless Tobacco: Never Alcohol Use Standard Drinks/Week Comments Not Currently 8 (1 standard drink = 0.6 oz pur e alcohol) sober since 11/2023 [facility] Utilities Answer Date Recorded In the past 12 months has [employer], gas, oil, or water [employer] threatened to shut off services in your [...] Info) Description 5 10:30 AM EST Appointment [facility] Interventional Radiology [address] [place] [address] 41944 Mike Rey i, MD [address] [place] [address] 13606 5 10:30 AM EDT Appointment [facility] Interventional Radiology [address] [place] [address] 09247 Mike Rey i, MD [address] [place] [address] 58570 5 2:00 PM EDT Pre-Admission Testing [facility] Pre Surgical Center [address] [place] [address] 25224 5 10:00 AM EDT Appointment [facility] Interventional Radiology [address] [place] [address] Mike Rey i, MD [address] [place] [address] 82639 5 10:30 AM EDT Appointment [facility] Interventional Radiology [address] [place] [address] 70253 Mike Rey i, MD [address] [place] [address] 5 9:00 AM EDT Pre-Admission Testing [facility] Pre Surgical Center [address] [facility] 3rd [place] [address] 5 10:30 AM EDT Appointment [facility] Interventional Radiology [address] [place] [address] 34221 Mike Rey i, MD [address] [place] [address] 5 10:30 AM EDT Appointment [facility] Interventional Radiology [address] [place] [address] 36144 Mike Rey i, MD [address] [place] [address] 88874 5 8:30 AM EDT Hospital Encounter [facility] Operating Room [address] [place] [address] Rachel Murray MD [address] [place] [address] 20253 5 8:30 AM EDT - 5 9:30 AM EDT Surgery [facility] Operating Room [address] [place] [address] Rachel Murray MD [address] [place] [address] 83494 ENDOSCOPIC RETROGRADE CHOLANGIOPANCREATOGRAPHY WITH REMOVAL OF FOREIGN BODY(S)/STENT(S)/PANCREATIC DUCT(S) WITH POSSIBLE MODERATE SEDATION [80311 (CPT??)] 5 10:30 AM EDT Appointment [facility] Interventional Radiology [address] [place] [address] 22100 Mike Rey i, MD [address] [place] [address] 25371 5 4:30 PM EDT Follow-Up [facility] Liver Transplant Services [address] [place] [address] 58520 Mike Rey i, MD [address] [place] [address] 58005 5 10:30 AM EDT Appointment [facility] Interventional Radiology [address] [place] [address] 00176 Mike Rey i, MD [address] [place] [address] 98074 5 10:30 AM EDT Appointment [facility] Interventional Radiology [address] [place] [address] 03481 Mike Rey i, MD [address] [place] [address] 55741 5 10:30 AM EDT Appointment [facility] Interventional Radiology [address] [place] [address] 96987 Mike Rey i, MD [address] [place] [address] 77531 5 10:30 AM EDT Appointment [facility] Interventional Radiology [address] [place] [address] 02089 Mike Rey i, MD [address] [place] [address] 52453 5 10:30 AM EDT Appointment [facility] Interventional Radiology [address] [place] [address] 54851 Mike Rey i, MD [address] [place] [address] 77732 5 10:30 AM EDT Appointment [facility] Interventional Radiology [address] [place] [address] 48249 Mike Rey i, MD [address] [place] [address] 70475 5 10:30 AM EDT Appointment [facility] Interventional Radiology [address] [place] [address] 76747 Mike Rey i, MD [address] [place] [address] 41644 5 10:30 AM EDT Appointment [facility] Interventional Radiology [address] [place] [address] 11002 Mike Rey i, MD [address] [place] [address] 89094 5 10:30 AM EDT Appointment [facility] Interventional Radiology [address] [place] [address] 39040 Mike Rey i, MD [address] [place] [address] 85980 5 10:30 AM EDT Appointment [facility] Interventional Radiology [address] [place] [address] 51032 Mike Rey i, MD [address] [place] [address] 50931 5 10:30 AM EDT Appointment [facility] Interventional Radiology [address] [place] [address] Mike Rey i, MD [address] [place] [address] 95222 Scheduled Procedures Name Priority Associated Diagnoses Date/Ti me ENDOSCOPIC RETROGRADE CHOLANGIOPANCREATOGRAPHY WITH REMOVAL OF FOREIGN BODY(S)/STENT(S)/PANCREATIC DUCT(S) WITH POSSIBLE MODERATE SEDATION Encounter for removal of biliary stent 07/04/2024 8:30 AM EDT LAPAROSCOPIC CHOLECYSTECTOMY Acute cholecystitis documented as of this encounter Visit Diagnoses Not on filedocumented in this encounter Care Teams Utility Sales And Service Manager Relationship Specialty Start Date End Date Jade Harper [address] [place] [address] [place] [address] PCP - General Internal Medicine 03/06/24 documented as of this encounter
--- OUTSIDE RECORDS SUMMARY | 2024-05-28 11:41 | XMS_ITS | Encounter Summary ---
Author Organization [facility] Address [address] [place] [address] Care Team Providers Care Rn Heart Name Role Phone Leroy Jennifervalente No Primary Care Provider [phone] Encounter Details Date Type Department Care Team (Late st Contact Info) Description 05/19/2024 Orders Only [facility] Transplant Department [address] [place], [place] [phone] Lorie Mahoney RN Alcoholic cirrhosis of liver with ascites (CMS/HCC) (HCC) (Primary Dx) Social History Tobacco Use Types Packs/Day Years Used Date Smoking Tobacco: Never Smokeless Tobacco: Never Alcohol Use Standard Drinks/Week Comments Not Currently 8 (1 standard drink = 0.6 oz pur e alcohol) sober since 11/2023 [facility] Utilities Answer Date Recorded In the past 12 months has [employer], gas, oil, or water [employer] threatened to shut off services in your [...] Info) Description 5 10:30 AM EST Appointment [facility] Interventional Radiology [address] [place] [address] 90415 Mike Rey i, MD [address] [place] [address] 56751 5 10:30 AM EDT Appointment [facility] Interventional Radiology [address] [place] [address] 78347 Mike Rey i, MD [address] [place] [address] 25528 5 2:00 PM EDT Pre-Admission Testing [facility] Pre Surgical Center [address] [place] [address] 47342 5 10:00 AM EDT Appointment [facility] Interventional Radiology [address] [place] [address] 22941 Mike Rey i, MD [address] [place] [address] 27990 5 10:30 AM EDT Appointment [facility] Interventional Radiology [address] [place] [address] 62273 Mike Rey i, MD [address] [place] [address] 5 9:00 AM EDT Pre-Admission Testing [facility] Pre Surgical Center [address] [facility] 3rd [place] [address] 5 10:30 AM EDT Appointment [facility] Interventional Radiology [address] [place] [address] Mike Rey i, MD [address] [place] [address] 5 10:30 AM EDT Appointment [facility] Interventional Radiology [address] [place] [address] Mike Rey i, MD [address] [place] [address] 5 8:30 AM EDT Hospital Encounter [facility] Operating Room [address] [place] [address] Rachel Murray MD [address] [place] [address] 5 8:30 AM EDT - 5 9:30 AM EDT Surgery [facility] Operating Room [address] [place] [address] Rachel Murray MD [address] [place] [address] 42307 ENDOSCOPIC RETROGRADE CHOLANGIOPANCREATOGRAPHY WITH REMOVAL OF FOREIGN BODY(S)/STENT(S)/PANCREATIC DUCT(S) WITH POSSIBLE MODERATE SEDATION [07716 (CPT??)] 5 10:30 AM EDT Appointment [facility] Interventional Radiology [address] [place] [address] 36706 Mike Rey i, MD [address] [place] [address] 89289 5 4:30 PM EDT Follow-Up [facility] Liver Transplant Services [address] [place] [address] 69423 Mike Rey i, MD [address] [place] [address] 00067 5 10:30 AM EDT Appointment [facility] Interventional Radiology [address] [place] [address] 69342 Mike Rey i, MD [address] [place] [address] 93709 5 10:30 AM EDT Appointment [facility] Interventional Radiology [address] [place] [address] 26225 Mike Rey i, MD [address] [place] [address] 05576 5 10:30 AM EDT Appointment [facility] Interventional Radiology [address] [place] [address] 06876 Mike Rey i, MD [address] [place] [address] 20534 5 10:30 AM EDT Appointment [facility] Interventional Radiology [address] [place] [address] 27319 Mike Rey i, MD [address] [place] [address] 72322 5 10:30 AM EDT Appointment [facility] Interventional Radiology [address] [place] [address] 10658 Mike Rey i, MD [address] [place] [address] 48581 5 10:30 AM EDT Appointment [facility] Interventional Radiology [address] [place] [address] 60857 Mike Rey i, MD [address] [place] [address] 41546 5 10:30 AM EDT Appointment [facility] Interventional Radiology [address] [place] [address] 55177 Mike Rey i, MD [address] [place] [address] 69853 5 10:30 AM EDT Appointment [facility] Interventional Radiology [address] [place] [address] 16561 Mike Rey i, MD [address] [place] [address] 17504 5 10:30 AM EDT Appointment [facility] Interventional Radiology [address] [place] [address] 33412 Mike Rey i, MD [address] [place] [address] 62603 5 10:30 AM EDT Appointment [facility] Interventional Radiology [address] [place] [address] 80078 Mike Rey i, MD [address] [place] [address] 74838 10:30 AM EDT Appointment [facility] Interventional Radiology [address] [place] [address] Mike Rey i, MD [address] [place] [address] 40513 Scheduled Orders Name Type Priority Associated Diagnoses Orde r Schedule CBC Auto Differential Lab Routine Alcoholic cirrhosis of liver with ascites (CMS/HCC) (HCC) Expected: 05/19/2024, Expires: 05/19/2025 Protime-INR Lab Routine Alcoholic cirrhosis of liver with ascites (CMS/HCC) (HCC) Expected: 05/19/2024, Expires: 05/19/2025 AFP tumor marker Lab Routine Alcoholic cirrhosis of liver with ascites (CMS/HCC) (HCC) Expected: 05/19/2024, Expires: 05/19/2025 Comprehensive Metabolic Panel Lab Routine Alcoholic cirrhosis of liver with ascites (CMS/HCC) (HCC) Expected: 05/19/2024, Expires: 05/19/2025 Scheduled Procedures Name Priority Associated Diagnoses Date/Ti [...] stent documented in this encounter Care Teams Rn Heart Relationship Specialty Start Date End Date Jade Harper [address] [place] [address] [place] [address] PCP - General Internal Medicine 03/06/24 documented as of this encounter
--- OUTSIDE RECORDS SUMMARY | 2024-05-28 11:41 | XMS_ITS | Encounter Summary ---
Author Organization [facility] Address [address] [place] [address] Care Team Providers Care Asbestos Remover Name Role Phone Jade Harper Primary Care Provider [phone] Encounter Details Date Type Department Care Team (Late st Contact Info) Description 04/24/2024 Orders Only [facility] Transplant Department [address] [place], [place] [id number] Provider, Addison, [address] [place] [id number] Social History Tobacco Use Types Packs/Day Years Used Date Smoking Tobacco: Never Smokeless Tobacco: Never Alcohol Use Standard Drinks/Week Comments Not Currently 8 (1 standard drink = 0.6 oz pur e alcohol) sober since 11/2023 [facility] Utilities Answer Date Recorded In the past 12 months has e [employer], gas, oil, or water [employer] threatened to shut off services in your [...] as of this encounter Miscellaneous Notes * Result Encounter Note - Lorie Mahoney RN - 04/24/2024 11:01 AM EST [facility] * Result Encounter Note - Lorie Mahoney RN - 04/24/2024 11:01 AM EST [facility] report. documented in this encounter Plan of Treatment Upcoming Encounters Date Type Department Care Team (Latest Contact Info) Description 5 10:30 AM EST Appointment [facility] Interventional Radiology [address] [place] [address] Mike Rey i, MD [address] [place] [address] 5 10:30 AM EDT Appointment [facility] Interventional Radiology [address] [place] [address] Mike Rey i, MD [address] [place] [address] 5 2:00 PM EDT Pre-Admission Testing [facility] [address] [address] 5 10:00 AM EDT Appointment [facility] Interventional Radiology [address] [place] [address] Mike Rey i, MD [address] [place] [address] 5 10:30 AM EDT Appointment [facility] Interventional Radiology [address] [place] [address] Mike Rey i, MD [address] [place] [address] 5 9:00 AM EDT Pre-Admission Testing [facility] [address] [address] 5 10:30 AM EDT Appointment [facility] Interventional Radiology [address] [place] [address] Mike Rey i, MD [address] [place] [address] 5 10:30 AM EDT Appointment [facility] Interventional Radiology [address] [place] [address] Mike Rey i, MD [address] [place] [address] 5 8:30 AM EDT Hospital Encounter [facility] Operating Room [address] [place] [address] Rachel Murray MD [address] [place] [address] 5 8:30 AM EDT - 5 9:30 AM EDT Surgery [facility] Operating Room [address] [place] [address] Rachel Murray MD [address] [place] [address] ENDOSCOPIC RETROGRADE CHOLANGIOPANCREATOGRAPHY WITH REMOVAL OF FOREIGN BODY(S)/STENT(S)/PANCREATIC DUCT(S) WITH POSSIBLE MODERATE SEDATION [90690 (CPT??)] 5 10:30 AM EDT Appointment [facility] Interventional Radiology [address] [place] [address] Mike Rey i, MD [address] [place] [address] 5 4:30 PM EDT Follow-Up [facility] Liver Transplant Services [address] [place] [address] Mike Rey i, MD [address] [place] [address] 5 10:30 AM EDT Appointment [facility] Interventional Radiology [address] [place] [address] Mike Rey i, MD [address] [place] [address] 5 10:30 AM EDT Appointment [facility] Interventional Radiology [address] [place] [address] Mike Rey i, MD [address] [place] [address] 5 10:30 AM EDT Appointment [facility] Interventional Radiology [address] [place] [address] Mike Rey i, MD [address] [place] [address] 5 10:30 AM EDT Appointment [facility] Interventional Radiology [address] [place] [address] Mike Rey i, MD [address] [place] [address] 5 10:30 AM EDT Appointment [facility] Interventional Radiology [address] [place] [address] Mike Rey i, MD [address] [place] [address] 5 10:30 AM EDT Appointment [facility] Interventional Radiology [address] [place] [address] Mike Rey i, MD [address] [place] [address] 5 10:30 AM EDT Appointment [facility] Interventional Radiology [address] [place] [address] Mike Rey i, MD [address] [place] [address] 5 10:30 AM EDT Appointment [facility] Interventional Radiology [address] [place] [address] Mike Rey i, MD [address] [place] [address] 5 10:30 AM EDT Appointment [facility] Interventional Radiology [address] [place] [address] [place] [address] Mike Rey i, MD [address] [place] [address] 5 10:30 AM EDT Appointment [facility] Interventional Radiology [address] [place] [address] Mike Rey i, MD [address] [place] [address] 5 10:30 AM EDT Appointment [facility] Interventional Radiology [address] [place] [address] Mike Rey i, MD [address] [place] [address] Scheduled Procedures Name Priority Associated Diagnoses Date/Ti me ENDOSCOPIC RETROGRADE CHOLANGIOPANCREATOGRAPHY WITH REMOVAL OF FOREIGN BODY(S)/STENT(S)/PANCREATIC DUCT(S) WITH POSSIBLE MODERATE SEDATION Encounter for removal of biliary stent 07/04/2024 8:30 AM EDT LAPAROSCOPIC CHOLECYSTECTOMY Acute cholecystitis documented as of this encounter Procedures * Due to [place] state law, this organization might not be sharing negative HIV tests. Procedure Name Priority Date/Time Associated Diagnosis Comments IMAGING - SCANNED Routine 09/30/2021 11: 03 AM EDT PATHOLOGY - SCANNED Routine 09/30/2021 1 1:01 AM EDT documented in this encounter Results * Due to [place] state law, this organization might not be sharing negative HIV tests. * IMAGING - SCANNED (09/30/2021 11:03 AM EDT) Anatomical Region Laterality Modality Other us Unknown Provider SCANNED PROCEDURES Final Res ult * PATHOLOGY - SCANNED (09/30/2021 11:01 AM EDT) us Unknown Provider SCANNED PROCEDURES Final Res ult documented in this encounter Visit Diagnoses Not on filedocumented in this encounter Care Teams Asbestos Remover Relationship Specialty Start Date End Date Jade Harper [address] [place] [address] dr Charly Parks, [place] [address] PCP - General Internal Medicine 03/06/24 documented as of this encounter
--- OUTSIDE RECORDS SUMMARY | 2024-05-28 11:41 | XMS_ITS | Encounter Summary ---
Author Organization [facility] Address [address] [place] [address] Care Team Providers Care It Training Specialist Name Role Phone Jade Harper Primary Care Provider [phone] Reason for Visit * Reason Onset Date Comments Advice Only 05/15/2024 Encounter Details Date Type Department Care Team (Late st Contact Info) Description 05/15/2024 Abstract [facility] Transplant Department [address] [place] [address] Damaris Garcias Social History Tobacco Use Types Packs/Day Years Used Date Smoking Tobacco: Never Smokeless Tobacco: Never Alcohol Use Standard Drinks/Week Comments Not Currently 8 (1 standard drink = 0.6 oz pur e alcohol) sober since 11/2023 [facility] Utilities Answer Date Recorded In the past 12 months has e [employer], gas, oil, or water [employer] threatened to shut off services in your [...] of this encounter Progress Notes * Damaris Garcias - 05/15/2024 2:28 PM EST Met with Nate and his spouse, Sana, when they were in clinic today to discuss insurance coverage. They advised me that Nate's employment has terminated and his insurance coverage with [employer], is ending on 06/07/24. Sana has already filled out an application for [facility], she plans on enrolling them in a [facility] care plan. Advised that for coverage to start on 05/24/24, they would need to be enrolled and pay the first premium by 05/18/24. Also discussed the option of completing a Disability Supplement for Nate to see if he would qualify for [facility]. Nate is turning 64 in September and will be enrolling in Medicare at that time. Explained that when he turns 64, he will no longer be eligible for the [facility].Sana and Artemio will discuss the options for secondary coverage in the next month so that they are prepared for the transition. documented in this encounter Plan of Treatment Upcoming Encounters Date Type Department Care Team (Latest Contact Info) Description 5 10:30 AM EST Appointment [facility] Interventional Radiology [address] [place] [address] Mike Rey i, MD [address] [place] [address] 5 10:30 AM EDT Appointment [facility] Interventional Radiology [address] [place] [address] Mike Rey i, MD [address] [place] [address] 5 2:00 PM EDT Pre-Admission Testing [facility] Surgical [address] [address] 5 10:00 AM EDT Appointment [facility] Interventional Radiology [address] [place] [address] Mike Rey i, MD [address] [place] [address] 5 10:30 AM EDT Appointment [facility] Interventional Radiology [address] [place] [address] Mike Rey i, MD [address] [place] [address] 5 9:00 AM EDT Pre-Admission Testing [address] [address] 5 10:30 AM EDT Appointment [facility] Interventional Radiology [address] [place] [address] Mike Rey i, MD [address] [place] [address] 5 10:30 AM EDT Appointment [facility] Interventional Radiology [address] [place] [address] Mike Rey i, MD [address] [place] [address] 5 8:30 AM EDT Hospital Encounter [facility] Operating Room [address] [place] [address] Rachel Murray MD [address] [place] [address] 5 8:30 AM EDT - 5 9:30 AM EDT Surgery [facility] Operating Room [address] [place] [address] Rachel Murray MD [address] [place] [address] ENDOSCOPIC RETROGRADE CHOLANGIOPANCREATOGRAPHY WITH REMOVAL OF FOREIGN BODY(S)/STENT(S)/PANCREATIC DUCT(S) WITH POSSIBLE MODERATE SEDATION [48995 (CPT??)] 5 10:30 AM EDT Appointment [facility] Interventional Radiology [address] [place] [address] Mike Rey i, MD [address] [place] [address] 5 4:30 PM EDT Follow-Up [facility] Liver Transplant Services [address] [place] [address] Mike Rey i, MD [address] [place] [address] 5 10:30 AM EDT Appointment [facility] Interventional Radiology [address] [place] [address] Mike Rey i, MD [address] [place] [address] 5 10:30 AM EDT Appointment [facility] Interventional Radiology [address] [place] [address] Mike Rey i, MD [address] [place] [address] 5 10:30 AM EDT Appointment [facility] Interventional Radiology [address] [place] [address] Mike Rey i, MD [address] [place] [address] 5 10:30 AM EDT Appointment [facility] Interventional Radiology [address] [place] [address] Mike Rey i, MD [address] [place] [address] 5 10:30 AM EDT Appointment [facility] Interventional Radiology [address] [place] [address] Mike Rey i, MD [address] [place] [address] 5 10:30 AM EDT Appointment [facility] Interventional Radiology [address] [place] [address] Mike Rey i, MD [address] [place] [address]107 5 10:30 AM EDT Appointment [facility] Interventional Radiology [address] [place] [address] Mike Rey i, MD [address] [place] [address]243 5 10:30 AM EDT Appointment [facility] Interventional Radiology [address] [place] [address] Mike Rey i, MD [address] [place] [address] 80253 5 10:30 AM EDT Appointment [facility] Interventional Radiology [address] [place] [address] Mike Rey i, MD [address] [place] [address] 41416 5 10:30 AM EDT Appointment [facility] Interventional Radiology [address] [place] [address] Mike Rey i, MD [address] [place] [address] 61166 5 10:30 AM EDT Appointment [facility] Interventional Radiology [address] [place] [address] Mike Rey i, MD [address] [place] [address] Scheduled Procedures Name Priority Associated Diagnoses Date/Ti dc ENDOSCOPIC RETROGRADE CHOLANGIOPANCREATOGRAPHY WITH REMOVAL OF FOREIGN BODY(S)/STENT(S)/PANCREATIC DUCT(S) WITH POSSIBLE MODERATE SEDATION Encounter for removal of biliary stent 07/04/2024 8:30 AM EDT LAPAROSCOPIC CHOLECYSTECTOMY Acute cholecystitis documented as of this encounter Visit Diagnoses Not on filedocumented in this encounter Care Teams It Training Specialist Relationship Specialty Start Date End Date Jade Harper [address] [place] [address] [place] [address] PCP - General Internal Medicine 03/06/24 documented as of this encounter
--- OUTSIDE RECORDS SUMMARY | 2024-05-28 11:41 | XMS_ITS | Encounter Summary ---
Author Organization [facility] Address [address] [place] [address] Care Team Providers Care Metal Building Assembler Name Role Phone Jade Harper Primary Care Provider [phone] Encounter Details Date Type Department Care Team (Latest Contact Info) Description 05/23/2024 9:57 AM EST - 05/23/2024 11:59 PM [facility] Hospital Encounter [facility] Interventional Radiology [address] [place] [address] Mike Low MD [address] [place] [phone] Alcoholic cirrhosis of liver with ascites (CMS/HCC) (HCC) Discharge Disposition: Home or Self Care () Social History Tobacco Use Types Packs/Day Years Used Date Smoking Tobacco: Never Smokeless Tobacco: Never Alcohol Use Standard Drinks/Week Comments Not Currently 8 (1 standard drink = 0.6 oz pur e alcohol) sober since 11/2023 [facility] Utilities Answer Date Recorded In [...] Index - - documented in this encounter Discharge Instructions * Attachments The following attachments cannot be sent through Care Everywhere. * [facility] RIS DC PARACENTESIS documented in this encounter Medications at Time of Discharge acetaminophen (TYLENOL) 500 mg tablet Take 500 mg by mouth every 6 hours as needed for pain. ciprofloxacin (CIPRO) 500 mg tablet Take 1 tablet (500 mg total) by mouth every 24 hours. 90 tablet 12 05/15/2024 07/29/19 furosemide (LASIX) 20 mg tablet Take 2 tablets (40 mg total) by mouth once a day. 180 tablet 05/15/2024 05/15/19 lactulose 10 gram/15 mL solution Take 30 mL (20 g total) by mouth 3 times a day. 8100 mL 3 05/15/2024 05/15/19 midodrine (PROAMATINE) 5 mg tablet Take 3 tablets (15 mg total) by mouth every 8 hours. 810 tablet 05/15/2024 05/15/19 rifAXIMin (XIFAXAN) 550 mg tablet Take 1 tablet (550 mg total) by mouth every 12 hours. 180 tablet 05/15/2024 05/15/19 sodium chloride 0.9 % syringe Use 1 syring (10ml) to fluch cholecystostomy tube up to 3 times a day. 600 mL 3 05/15/2024 3:34 PM EST 05/15/2024 spironolactone (ALDACTONE) 50 mg tablet Take 2 tablets (100 mg total) by mouth once a day. 60 tablet 05/15/2024 05/15/19 documented as of this encounter Nursing Notes * Kimberly Caruso RN - 05/23/2024 11:37 AM EST Specimens have been obtain, labeled and sent to the lab. documented in this encounter Miscellaneous Notes * Post-Procedure Note - JULIANE Coleman - 05/23/2024 10:30 AM EST Interventional Radiology Brief Postprocedure Note PROCEDURE: Diagnostic and therapeutic paracentesis. INDICATION: 63 y.o. year old male with alcohol cirrhosis and recurrent ascites. ATTENDING: Dr. Johnson, the Attending physician, was on site and immediately available for assistance throughout the entire procedure. INSPECTOR GENERAL: JULIANE Coleman SEDATION: None DURATION: 30 minutes MEDICATIONS: 1. Lidocaine 1% for local anesthesia. GUIDANCE: Ultrasound. COMPLICATIONS: None PROCEDURE DESCRIPTION: Informed consent was obtained from the health care proxy/guardian after discussion of risks, benefits, and alternatives. Maximal sterile barrier technique and sterile ultrasound technique was used for the entire procedure. A timeout was performed. After local anesthesia with lidocaine, a 6F Centezeneedle catheter was advanced into a pocket of [...] the abdomen showed small volume loculated ascites. Diagnostic and therapeutic paracentesis performed via left lower quadrant. 600 mls of serous fluid was aspirated and discarded. Samples of the fluid were sent for laboratory assays. IMPRESSION: Diagnostic and therapeutic paracentesis performed via left upper quadrant. 600 mls of serous fluid was aspirated and discarded. Samples of the fluid were sent for laboratory assays. 05/23/2024 11:45 AM JULIANE Coleman documented in this encounter Plan of Treatment Upcoming Encounters Date Type Department Care Team (Latest Contact Info) Description 5 10:30 AM EST Appointment [facility] Interventional Radiology [address] [place] [address] Mike Rey i, MD [address] [place] [address] 5 10:30 AM EDT Appointment [facility] Interventional Radiology [address] [place] [address] Mike Rey i, MD [address] [place] [address] 5 2:00 PM EDT Pre-Admission Testing [facility] [address] [place] [address] [address] [place] [address] 5 10:00 AM EDT Appointment [facility] Interventional Radiology [address] [place] [address] Mike Rey i, MD [address] [place] [address] 5 10:30 AM EDT Appointment [facility] Interventional Radiology [address] [place] [address] Mike Rey i, MD [address] [place] [address] 5 9:00 AM EDT Pre-Admission Testing [facility] [address] [facility] 3rd [place] [address] 5 10:30 AM EDT Appointment [facility] Interventional Radiology [address] [place] [address] Mike Rey i, MD [address] [place] [address] 5 10:30 AM EDT Appointment [facility] Interventional Radiology [address] [place] [address] Mike Rey i, MD [address] [place] [address] 5 8:30 AM EDT Hospital Encounter [facility] Operating Room [address] [place] [address] Rachel Murray MD [address] [place] [address] 5 8:30 AM EDT - 5 9:30 AM EDT Surgery [facility] Operating Room [address] [place] [address] Rachel Murray MD [address] [place] [address] ENDOSCOPIC RETROGRADE CHOLANGIOPANCREATOGRAPHY WITH REMOVAL OF FOREIGN BODY(S)/STENT(S)/PANCREATIC DUCT(S) WITH POSSIBLE MODERATE SEDATION [18607 (CPT??)] 5 10:30 AM EDT Appointment [facility] Interventional Radiology [address] [place] [address] Mike Rey i, MD [address] [place] [address] 5 4:30 PM EDT Follow-Up [facility] [address] [place] [address] Mike Rey i, MD [address] [place] [address] 6[address] 5 10:30 AM EDT Appointment [facility] Interventional Radiology [address] [place] [address] Mike Rey i, MD [address] [place] [address] 5 10:30 AM EDT Appointment [facility] Interventional Radiology [address] [place] [address] Mike Rey i, MD [address] [place] [address] 5 10:30 AM EDT Appointment [facility] Interventional Radiology [address] [place] [address] Mike Rey i, MD [address] [place] [address] 5 10:30 AM EDT Appointment [facility] Interventional Radiology [address] [place] [address] Mike Rey i, MD [address] [place] [address] 16[address] 5 10:30 AM EDT Appointment [facility] Interventional Radiology [address] [place] [address] Mike Rey i, MD [address] [place] [address] 5 10:30 AM EDT Appointment [facility] Interventional Radiology [address] [place] [address] Mike Rey i, MD [address] [place] [address] 1957[address] 5 10:30 AM EDT Appointment [facility] Interventional Radiology [address] [place] [address] Mike Rey i, MD [address] [place] [address] 5 10:30 AM EDT Appointment [facility] Interventional Radiology [address] [place] [address] Mike Rey i, MD [address] [place] [address] 5 10:30 AM EDT Appointment [facility] Interventional Radiology [address] [place] [address] Mike Rey i, MD [address] [place] [address] 5 10:30 AM EDT Appointment [facility] Interventional Radiology [address] [place] [address] Mike Rey i, MD [address] [place] [address] 32561 10:30 AM EDT Appointment [facility] Interventional Radiology [address] [place] [address] Mike Rey i, MD [address] [place] [address] Pending Results Name Type Priority Associated Diagnoses Date /Time Body Fluid Culture w/Stat Gram Stain Microbiology Routine Alcoholic cirrhosis of liver with ascites (CMS/HCC) (HCC) 05/23/2024 11:16 AM EST Body Fluid Aerobic Culture Microbiology Routine Alcoholic cirrhosis of liver with ascites (CMS/HCC) (HCC) 05/23/2024 11:16 AM EST Anaerobic Culture Microbiology Routine Alcoholic cirrhosis of liver with ascites (CMS/HCC) (HCC) 05/23/2024 11:16 AM EST Scheduled Orders Name Type Priority Associated Diagnoses Orde r Schedule Body Fluid Culture w/Stat Gram Stain Microbiology Routine Alcoholic cirrhosis of liver with ascites (CMS/HCC) (HCC) Release Upon Ordering for 1 Occurrences starting 05/23/2024 STAT Gram Stain Microbiology Timed Alcoholic cirrhosis of liver with ascites (CMS/HCC) (HCC) 05/23/2024 until discontinued, 1 completed Scheduled Procedures Name Priority Associated Diagnoses Date/Ti me ENDOSCOPIC RETROGRADE CHOLANGIOPANCREATOGRAPHY WITH REMOVAL OF FOREIGN BODY(S)/STENT(S)/PANCREATIC DUCT(S) WITH POSSIBLE MODERATE SEDATION Encounter for removal of biliary stent 07/04/2024 8:30 AM EDT LAPAROSCOPIC CHOLECYSTECTOMY Acute cholecystitis documented as of this encounter Procedures * Due to [place] state law, this organization might not be [...] (CMS/HCC) (HCC) PROTEIN, BODY FLUID Routine 05/23/2024 1 1:16 AM EST Alcoholic cirrhosis of liver with ascites (CMS/HCC) (HCC) LACTATE DEHYDROGENASE, BODY FLUID Routine 05/23/2024 11:16 AM EST Alcoholic cirrhosis of liver with ascites (CMS/HCC) (HCC) GLUCOSE, BODY FLUID Routine 05/23/2024 1 1:16 AM EST Alcoholic cirrhosis of liver with ascites (CMS/HCC) (HCC) documented in this encounter Results * Due to [place] state law, this organization might not be sharing negative HIV tests. * IR Paracentesis Diagnostic and Therapeutic (05/23/2024 11:49 AM EST) Anatomical Region Laterality Modality Body X-Ray Angiograph [...] provide assistance and guidance throughout the procedure. INSPECTOR GENERAL: JULIANE Coleman SEDATION: None DURATION: ??30 minutes [...] MD IMG IR PROCEDURES Final Result * STAT Gram Stain (05/23/2024 11:16 AM EST) Gram Stain, STAT No organisms seen 05/23/2024 2:10 PM EST [facility] Gram Stain, STAT 1+ Mononuclear Cells 05/23/2024 2:10 PM EST [facility] Body Fluid Peritoneal cavity structure / Unknown 05/23/2024 11:16 AM EST 05/23/2024 11:32 AM EST us Mike Low MD LAB MICROBIOLOGY - GENER AL ORDERABLES Final Result [facility] [address] [place] [address], * (ABNORMAL) Cell Count w/Differential, Peritoneal (05/23/2024 11:16 AM EST) Color, Peritoneal Straw Colorless, Yellow, Straw 05/23/2024 12:35 PM EST [facility] Appearance, Peritoneal Cloudy(A ) Clear 05/23/2024 12:35 PM EST [facility] TNC/WBC, Peritoneal 303(H) <=250 cells/mm3 05/23/2024 12:35 PM EST [facility] Comment:Values of TNC <=250 do not rule out abnormality. Clinical correlation is advised. RBC, Peritoneal 6,000 Not established cells/mm3 05/23/2024 12:35 PM EST [facility] Lymphocytes %, Peritoneal 71 % 05/23/2024 12:35 PM EST [facility] [place]/Macrophage %, Peritoneal 29 % 05/23/2024 12:35 PM EST [facility] Differential Cells Counted, Peritoneal 05/23/2024 12:35 PM EST [facility] Body Fluid Peritoneal cavity structure / Unknown 05/23/2024 11:16 AM EST 05/23/2024 11:32 AM EST Comment:MARII remy us Mike Low MD LAB BODY FLUIDS AND STOO LS ORDERABLES Final Result Performing Organization Address [facility] Co de Phone Number [facility] [address] [place] [phone], [place] * Protein, Body Fluid (05/23/2024 11:16 AM EST) Protein, Fluid 2.9 g/dL 05/23/2024 1:09 PM EST [facility] Comment: No reference range available. This test was developed and its performance characteristics determined by [facility]. FDA has not approved or cleared this test. FDA clearance or approval is not currently required for clinical use. The results are not intended to be used as the sole means for clinical diagnosis or patient management decisions. Body Fluid Peritoneal cavity structure / Unknown 05/23/2024 11:16 AM EST 05/23/2024 11:32 AM EST Comment:MARII asiconstance us Mike Low MD LAB BODY FLUIDS AND STOO LS ORDERABLES Final Result Performing Organization Address City/[facility]/ZIP Co de Phone Number [facility] [address] [place] [phone], [place] * Lactate Dehydrogenase, Body Fluid (05/23/2024 11:16 AM EST) LDH, Fluid 104 U/L 05/23/2024 1:09 PM EST [facility] Comment: No reference range available. This test was developed and its performance characteristics determined by [facility]. FDA has not approved or cleared this test. FDA clearance or approval is not currently required for clinical use. The results are not intended to be used as the sole means for clinical diagnosis or patient management decisions. Body Fluid Peritoneal cavity structure / Unknown 05/23/2024 11:16 AM EST 05/23/2024 11:32 AM EST Comment:MARII remy us Mike Low MD LAB BODY FLUIDS AND STOO LS ORDERABLES Final Result Performing Organization Address [facility] Co de Phone Number [facility] [address] [place] [address], [place] * Glucose, Body Fluid (05/23/2024 11:16 AM EST) Glucose, Fluid 86 mg/dL 05/23/2024 1:09 PM EST [facility] Comment: No reference range available. This test was developed and its performance characteristics determined by [facility]. FDA has not approved or cleared this test. FDA clearance or approval is not currently required for clinical use. The results are not intended to be used as the sole means for clinical diagnosis or patient management decisions. Body Fluid Peritoneal cavity structure / Unknown 05/23/2024 11:16 AM EST 05/23/2024 11:32 AM EST Comment:MARII asiconstance us Mike Low MD LAB BODY FLUIDS AND STOO LS ORDERABLES Final Result Performing Organization Address City/[facility]/ZIP Co de Phone Number [facility] [address] [place] [address], documented in this encounter Visit Diagnoses Diagnosis Alcoholic cirrhosis of liver with ascites (CMS/HCC) (HCC) Encounter for removal of biliary stent documented in this encounter Care Teams Metal Building Assembler Relationship Specialty Start Date End Date [facility] [address] [place] [address] dr Charly Parks, [place] [address] PCP - General Internal Medicine 03/06/24 documented as of this encounter
--- OUTSIDE RECORDS SUMMARY | 2024-05-28 11:41 | XMS_ITS | Encounter Summary ---
Author Organization [facility] Address [address] [place] [address] Care Team Providers Care Pricing Specialist Name Role Phone Jade Harper Primary Care Provider [phone] Encounter Details Date Type Department Care Team (Late st Contact Info) Description 05/16/2024 Results Follow-Up [facility] Transplant Services [address] [place], [place] [phone] Mike Low MD [address] [place], [place] [phone] Social History Tobacco Use Types Packs/Day Years Used Date Smoking Tobacco: Never Smokeless Tobacco: Never Alcohol Use Standard Drinks/Week Comments Not Currently 8 (1 standard drink = 0.6 oz pur e alcohol) sober since 11/2023 [facility] Utilities Answer Date Recorded In [...] Miscellaneous Notes * Result Encounter Note - Mike Low MD - 05/27/2024 4:36 PM EST Great thanks, no concerns. * Result Encounter Note - Lorie Mahoney RN - 05/27/2024 4:14 PM EST Bili labs from para fluid documented in this encounter Plan of Treatment Upcoming Encounters Date Type Department Care Team (Latest Contact Info) Description 5 10:30 AM EST Appointment [facility] Interventional Radiology [address] [place] [address] Mike Rey i, MD [address] [place] [address] 5 10:30 AM EDT Appointment [facility] Interventional Radiology [address] [place] [address] Mike Rey i, MD [address] [place] [address] 28018 5 2:00 PM EDT Pre-Admission Testing [facility] [place] [address] [address] 5 10:00 AM EDT Appointment [facility] Interventional Radiology [address] [place] [address] Mike Rey i, MD [address] [place] [address] 5 10:30 AM EDT Appointment [facility] Interventional Radiology [address] [place] [address] Mike Rey i, MD [address] [place] [address]24 5 9:00 AM EDT Pre-Admission Testing [facility] [address] [address] 5 10:30 AM EDT Appointment [facility] Interventional Radiology [address] [place] [address] Mike Rey i, MD [address] [place] [address] 367[address] 5 10:30 AM EDT Appointment [facility] Interventional Radiology [address] [place] [address] Mike Rey i, MD [address] [place] [address] 5 8:30 AM EDT Hospital Encounter [facility] Operating Room [address] [place] [address] Rachel Murray MD [address] [place] [address] 5 8:30 AM EDT - 5 9:30 AM EDT Surgery [facility] Operating Room [address] [place] [address] Rachel Murray MD [address] [place] [address] ENDOSCOPIC RETROGRADE CHOLANGIOPANCREATOGRAPHY WITH REMOVAL OF FOREIGN BODY(S)/STENT(S)/PANCREATIC DUCT(S) WITH POSSIBLE MODERATE SEDATION [97419 (CPT??)] 5 10:30 AM EDT Appointment [facility] Interventional Radiology [address] [place] [address] Mike Rey i, MD [address] [place] [address] 13774 5 4:30 PM EDT Follow-Up [facility] Transplant Services [address] [place] [address] Mike Rey i, MD [address] [place] [address] 59494 5 10:30 AM EDT Appointment [facility] Interventional Radiology [address] [place] [address] Mike Rey i, MD [address] [place] [address] 75508 5 10:30 AM EDT Appointment [facility] Interventional Radiology [address] [place] [address] Mike Rey i, MD [address] [place] [address] 64315 5 10:30 AM EDT Appointment [facility] Interventional Radiology [address] [place] [address] Mike Rey i, MD [address] [place] [address] 15808 5 10:30 AM EDT Appointment [facility] Interventional Radiology [address] [place] [address] 7[address] Mike Rey i, MD [address] [place] [address] 83670 5 10:30 AM EDT Appointment [facility] Interventional Radiology [address] [place] [address] 28765 Mike Rey i, MD [address] [place] [address] 10338 5 10:30 AM EDT Appointment [facility] Interventional Radiology [address] [place] [address] Mike Rey i, MD [address] [place] [address] 66949 5 10:30 AM EDT Appointment [facility] Interventional Radiology [address] [place] [address] 64024 Mike Rey i, MD [address] [place] [address] 54683 5 10:30 AM EDT Appointment [facility] Interventional Radiology [address] [place] [address]36 Mike Rey i, MD [address] [place] [address] 82110 5 10:30 AM EDT Appointment [facility] Interventional Radiology [address] [place] [address] Mike Rey i, MD [address] [place] [address] 48197 5 10:30 AM EDT Appointment [facility] Interventional Radiology [address] [place] [address] Mike Rey i, MD [address] [place] [address] 96136 5 10:30 AM EDT Appointment [facility] Interventional Radiology [address] [place] [address] 916[address] Mike Rey i, MD [address] [place] [address] Scheduled Procedures Name Priority Associated Diagnoses Date/Ti me ENDOSCOPIC RETROGRADE CHOLANGIOPANCREATOGRAPHY WITH REMOVAL OF FOREIGN BODY(S)/STENT(S)/PANCREATIC DUCT(S) WITH POSSIBLE MODERATE SEDATION Encounter for removal of biliary stent 07/04/2024 8:30 AM EDT LAPAROSCOPIC CHOLECYSTECTOMY Acute cholecystitis documented as of this encounter Visit Diagnoses Not on filedocumented in this encounter Care Teams Pricing Specialist Relationship Specialty Start Date End Date Jade Harper [address] [place] [address] [place] [address] PCP - General Internal Medicine 03/06/24 documented as of this encounter
--- OUTSIDE RECORDS SUMMARY | 2024-05-28 11:41 | XMS_ITS | Encounter Summary ---
Author Organization [facility] Address [address] [place] [address] Care Team Providers Care [employer] Name Role Phone Jade Harper Primary Care Provider [phone] Encounter Details Date Type Department Care Team (Latest Contact Info) Description 05/20/2024 1:00 PM EST - 05/20/2024 11:59 PM [facility] Hospital Encounter [facility] Interventional Radiology [address] [place], [place] [id number] Mike Low MD [address] [place], [place] [phone] Alcoholic cirrhosis of liver with ascites (CMS/HCC) (HCC); Cholecystitis; SBP (spontaneous bacterial peritonitis) (HCC) Discharge Disposition: Home or Self Care () Social History Tobacco Use Types Packs/Day Years Used Date Smoking Tobacco: Never Smokeless Tobacco: Never Alcohol Use Standard Drinks/Week Comments Not Currently 8 (1 standard drink = 0.6 oz pur e alcohol) sober since 11/2023 [facility] Utilities Answer Date Recorded In the [...] PM EST documented as of this encounter Medications at Time of Discharge [...] mouth 3 times a day. 8100 mL 05/15/2024 05/15/19 midodrine (PROAMATINE) 5 mg tablet [...] mouth once a day. 60 tablet 11 05/15/2024 05/15/19 26 documented as of this encounter Plan of Treatment Upcoming Encounters Date Type Department Care Team (Latest Contact Info) Description 5 10:30 AM EST Appointment [facility] Interventional Radiology [address] [place] [address] Mike Rey i, MD [address] [place] [address] 5 10:30 AM EDT Appointment [facility] Interventional Radiology [address] [place] [address] 164[address] Mike Rey i, MD [address] [place] [address] 93198 5 2:00 PM EDT Pre-Admission Testing [facility] Pre Surgical [address] [address] 5 10:00 AM EDT Appointment [facility] Interventional Radiology [address] [place] [address] Mike Rey i, MD [address] [place] [address] 650[address] 5 10:30 AM EDT Appointment [facility] Interventional Radiology [address] [place] [address] Mike Rey i, MD [address] [place] [address] 67584 5 9:00 AM EDT Pre-Admission Testing [facility] Pre Surgical [address] [address] 5 10:30 AM EDT Appointment [facility] Interventional Radiology [address] [place] [address] Mike Rey i, MD [address] [place] [address] 5 10:30 AM EDT Appointment [facility] Interventional Radiology [address] [place] [address] Mike Rey i, MD [address] [place] [address] 20235 5 8:30 AM EDT Hospital Encounter [facility] Operating Room [address] [place] [address] Rachel Murray MD [address] [place] [address] 50252 5 8:30 AM EDT - 5 9:30 AM EDT Surgery [facility] Operating Room [address] [place] [address] Rachel Murray MD [address] [place] [address]67 ENDOSCOPIC RETROGRADE CHOLANGIOPANCREATOGRAPHY WITH REMOVAL OF FOREIGN BODY(S)/STENT(S)/PANCREATIC DUCT(S) WITH POSSIBLE MODERATE SEDATION [00999 (CPT??)] 5 10:30 AM EDT Appointment [facility] Interventional Radiology [address] [place] [address] Mike Rey i, MD [address] [place] [address] 92537 5 4:30 PM EDT Follow-Up [facility] Liver Transplant Services [address] [place] [address] Mike Rey i, MD [address] [place] [address] 60652 5 10:30 AM EDT Appointment [facility] Interventional Radiology [address] [place] [address] Mike Rey i, MD [address] [place] [address] 24825 5 10:30 AM EDT Appointment [facility] Interventional Radiology [address] [place] [address] Mike Rey i, MD [address] [place] [address] 77699 5 10:30 AM EDT Appointment [facility] Interventional Radiology [address] [place] [address] Mike Rey i, MD [address] [place] [address] 15744 5 10:30 AM EDT Appointment [facility] Interventional Radiology [address] [place] [address] Mike Rey i, MD [address] [place] [address] 83032 5 10:30 AM EDT Appointment [facility] Interventional Radiology [address] [place] [address] Mike Rey i, MD [address] [place] [address] 73867 5 10:30 AM EDT Appointment [facility] Interventional Radiology [address] [place] [address] 330[address] Mike Rey i, MD [address] [place] [address] 29355 5 10:30 AM EDT Appointment [facility] Interventional Radiology [address] [place] [address] Mike Rey i, MD [address] [place] [address] 56542 5 10:30 AM EDT Appointment [facility] Interventional Radiology [address] [place] [address] 206[address] Mike Rey i, MD [address] [place] [address] 55129 5 10:30 AM EDT Appointment [facility] Interventional Radiology [address] [place] [address] Mike Rey i, MD [address] [place] [address] 75905 5 10:30 AM EDT Appointment [facility] Interventional Radiology [address] [place] [address] Mike Rey i, MD [address] [place] [address] 59226 5 10:30 AM EDT Appointment [facility] Interventional Radiology [address] [place] [address] 64[address] Mike Rey i, MD [address] [place] [address] Pending Results Name Type Priority Associated Diagnoses Date /Time Radiology IR Consult Visit Imaging STAT Alcoholic cirrhosis of liver with ascites (CMS/HCC) (HCC) Cholecystitis SBP (spontaneous bacterial peritonitis) (HCC) 05/20/2024 1:04 PM EST Scheduled Orders Name Type Priority Associated Diagnoses Orde r Schedule Radiology IR Consult Visit Imaging STAT Alcoholic cirrhosis of liver with ascites (CMS/HCC) (HCC) Cholecystitis SBP (spontaneous bacterial peritonitis) (HCC) Once for 1 Occurrences starting 05/20/2024 until 05/20/2024 Scheduled Procedures Name Priority Associated Diagnoses Date/Ti me ENDOSCOPIC RETROGRADE CHOLANGIOPANCREATOGRAPHY WITH REMOVAL OF FOREIGN BODY(S)/STENT(S)/PANCREATIC DUCT(S) WITH POSSIBLE MODERATE SEDATION Encounter for removal of biliary stent 07/04/2024 8:30 AM EDT LAPAROSCOPIC CHOLECYSTECTOMY Acute cholecystitis documented as of this encounter Visit Diagnoses Diagnosis Alcoholic cirrhosis of liver with ascites (CMS/HCC) (HCC) Cholecystitis Cholecystitis, unspecified SBP (spontaneous bacterial peritonitis) (HCC) Spontaneous bacterial peritonitis Encounter for removal of biliary stent documented in this encounter Care Teams [employer] Relationship Specialty Start Date End Date Jade Harper [address] [place] [address] dr Charly Parks, MAGALIE [phone] PCP - General Internal Medicine 03/06/24 documented as of this encounter
--- OUTSIDE RECORDS SUMMARY | 2024-05-28 11:41 | XMS_ITS | Encounter Summary ---
Author Organization [facility] Address [address] [place] [address] Care Team Providers Care Mink Farmer Name Role Phone Jade Harper Primary Care Provider [phone] Encounter Details Date Type Department Care Team (Late st Contact Info) Description 05/16/2024 Telephone [facility] Interventional Radiology [address] [place], [place] [phone] Chela Tatum, [employer] Social History Tobacco Use Types Packs/Day Years Used Date Smoking Tobacco: Never Smokeless Tobacco: Never Alcohol Use Standard Drinks/Week Comments Not Currently 8 (1 standard drink = 0.6 oz pur e alcohol) sober since 11/2023 [facility] Utilities Answer Date Recorded In the past 12 months has [employer] gas, oil, or water [employer] threatened to shut off services in your [...] Info) Description 5 10:30 AM EST Appointment [facility] Interventional Radiology [address] [place] [address] Mike Rey i, MD [address] [place] [address] 5 10:30 AM EDT Appointment [facility] Interventional Radiology [address] [place] [address] Mike Rey i, MD [address] [place] [address] 05773 5 2:00 PM EDT Pre-Admission Testing [facility] Pre Surgical Center [address] [place] [address]707 5 10:00 AM EDT Appointment [facility] Interventional Radiology [address] [place] [address] Mike Rey i, MD [address] [place] [address] 301[address] 5 10:30 AM EDT Appointment [facility] Interventional Radiology [address] [place] [address] Mike Rey i, MD [address] [place] [address] 10263 5 9:00 AM EDT Pre-Admission Testing [facility] Pre Surgical Center [address] [facility] [address] [place] [address] 5 10:30 AM EDT Appointment [facility] Interventional Radiology [address] [place] [address] Mike Rey i, MD [address] [place] [address] 5 10:30 AM EDT Appointment [facility] Interventional Radiology [address] [place] [address] Mike Rey i, MD [address] [place] [address] 49630 5 8:30 AM EDT Hospital Encounter [facility] Operating Room [address] [place] [address] Rachel Murray MD [address] [place] [address] 5 8:30 AM EDT - 5 9:30 AM EDT Surgery [facility] Operating Room [address] [place] [address] Rachel Murray MD [address] [place] [address] 34106 ENDOSCOPIC RETROGRADE CHOLANGIOPANCREATOGRAPHY WITH REMOVAL OF FOREIGN BODY(S)/STENT(S)/PANCREATIC DUCT(S) WITH POSSIBLE MODERATE SEDATION [77554 (CPT??)] 5 10:30 AM EDT Appointment [facility] Interventional Radiology [address] [place] [address] 19891 Mike Rey i, MD [address] [place] [address] 75126 5 4:30 PM EDT Follow-Up [facility] Liver Transplant Services [address] [place] [address] Mike Rey i, MD [address] [place] [address] 28424 5 10:30 AM EDT Appointment [facility] Interventional Radiology [address] [place] [address] 00823 Mike Rey i, MD [address] [place] [address] 44911 5 10:30 AM EDT Appointment [facility] Interventional Radiology [address] [place] [address] Miek Rey i, MD [address] [place] [address] 87660 5 10:30 AM EDT Appointment [facility] Interventional Radiology [address] [place] [address] Mike Rey i, MD [address] [place] [address] 35082 5 10:30 AM EDT Appointment [facility] Interventional Radiology [address] [place] [address]00 Mike Rey i, MD [address] [place] [address] 87328 5 10:30 AM EDT Appointment [facility] Interventional Radiology [address] [place] [address] 99[address] Mike Rey i, MD [address] [place] [address] 22483 5 10:30 AM EDT Appointment [facility] Interventional Radiology [address] [place] [address] Mike Rey i, MD [address] [place] [address] 98852 5 10:30 AM EDT Appointment [facility] Interventional Radiology [address] [place] [address] 95[address] Mike Rey i, MD [address] [place] [address] 14826 5 10:30 AM EDT Appointment [facility] Interventional Radiology [address] [place] [address] 84184 Mike Rey i, MD [address] [place] [address] 70717 5 10:30 AM EDT Appointment [facility] Interventional Radiology [address] [place] [address] 47[address] Mike Rey i, MD [address] [place] [address] 77210 5 10:30 AM EDT Appointment [facility] Interventional Radiology [address] [place] [address] 77134 Mike Rey i, MD [address] [place] [address] 70682 5 10:30 AM EDT Appointment [facility] Interventional Radiology [address] [place] [address] Mike Rey i, MD [address] [place] [address] [phone] Scheduled Procedures Name Priority Associated Diagnoses Date/Ti me ENDOSCOPIC RETROGRADE CHOLANGIOPANCREATOGRAPHY WITH REMOVAL OF FOREIGN BODY(S)/STENT(S)/PANCREATIC DUCT(S) WITH POSSIBLE MODERATE SEDATION Encounter for removal of biliary stent 07/04/2024 8:30 AM EDT LAPAROSCOPIC CHOLECYSTECTOMY Acute cholecystitis documented as of this encounter Visit Diagnoses Not on filedocumented in this encounter Care Teams Mink Farmer Relationship Specialty Start Date End Date Jade Harper [address] [place] [address] [place] [address] PCP - General Internal Medicine 03/06/24 documented as of this encounter
--- OUTSIDE RECORDS SUMMARY | 2024-05-28 11:41 | XMS_ITS | Encounter Summary ---
Author Organization [facility] Address [address] [place] [address] Care Team Providers Care Technical Support Assistant Name Role Phone Jade Harper Primary Care Provider [phone] Encounter Details Date Type Department Care Team (Latest Contact Info) Description 05/15/2024 12:15 PM EST - 05/15/2024 11:59 PM EST Hospital Encounter [facility] Interventional Radiology [address] [place] [address] Mike Low MD [address] [place], [place] [phone] Lauri Avendano RN Alcoholic cirrhosis of liver with ascites (CMS/HCC) (HCC) Discharge Disposition: Home or Self Care () Social History Tobacco Use Types Packs/Day Years Used Date Smoking Tobacco: Never Smokeless Tobacco: Never Alcohol Use Standard Drinks/Week Comments Not Currently 8 (1 standard drink = 0.6 oz pur e alcohol) sober since 11/2023 [facility] Utilities Answer Date Recorded In [...] to 3 times a day. 600 mL 05/15/2024 3:34 PM EST 05/15/2024 spironolactone (ALDACTONE) 50 mg tablet Take 2 tablets (100 mg total) by mouth once a day. 60 tablet 11 05/15/2024 05/15/19 26 documented as of this encounter H&P Notes * James Pyle MD PhD - 05/15/2024 12:15 PM EST Interventional Radiology H&P Note. Date: 05/15/2024 63 y.o. 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 He had a similar hospitalization 04/11-04/19 for acute on chronic liver failure in the setting of a clogged percutaneous cholecystectomy tube causing septic shock from secondary bacterial peritonitis. Mr. Correa was admitted January 2024 locally with acute cholecystitis he was managed with a percutaneous cholecystostomy tube given cross sectional imaging findings notable for cirrhosis with portalhypertension. His liver disease was noted to be complicated by small volume ascites. Last paracentesis was 05/09/2024 where 500cc of turbid fluid was aspirated. Past Medical / Past Surgical Past Medical History: Diagnosis Date ALC (alcoholic liver cirrhosis) (CMS/HCC) (HCC) Alcoholism (CMS/HCC) (HCC) sober since 11/2023 Hyperlipidemia Hypertension Prediabetes Past Surgical History: Procedure Laterality Date IR CHOLECYSTOSTOMY TUBE PLACEMENT [place] ERCP DX COLLECTION SPECIMEN BRUSHING/WASHING N/A 04/29/2024 Procedure: ENDOSCOPIC RETROGRADE CHOLANGIOPANCREATOGRAPHY, DIAGNOSTIC WITH POSSIBLE BRUSHING OR WASHING AND POSSIBLE MODERATE SEDATION; Surgeon: Rachel Murray MD; Location: [facility] GI OR; Service: Gastroenterology IL ERCP DX COLLECTION SPECIMEN BRUSHING/WASHING N/A 05/02/2024 Procedure: ENDOSCOPIC RETROGRADE CHOLANGIOPANCREATOGRAPHY, DIAGNOSTIC WITH POSSIBLE BRUSHING OR WASHING AND POSSIBLE MODERATE SEDATION; Surgeon: Rachel Murray MD; Location: [facility] GI OR; Service: Gastroenterology TOE AMPUTATION TOTAL KNEE ARTHROPLASTY Left Problem List: Patient Active Problem List Diagnosis Decompensated cirrhosis (HCC) Cholecystitis Hyperlipidemia Insomnia Moderate protein-calorie malnutrition (CMS/HCC) Family history: Family History Problem Relation Age of Onset Other Mother unsure of medical history Myocardial Infarction Father Social history: Social History Tobacco Use Smoking status: Never Smokeless tobacco: Never Substance Use Topics Alcohol use: Not Currently Alcohol/week: 8.0 standard drinks of alcohol Types: 8 Cans of beer per week Comment: sober since 11/2023 Home Medications: Click to expand medication list[1] Current Medications: Current Outpatient Medications: acetaminophen (TYLENOL) 500 mg tablet, Take 500 mg by mouth every 6 hours as needed for pain., Disp: , Rfl: ciprofloxacin (CIPRO) 500 mg tablet, Take 1 tablet (500 mg total) by mouth every 24 hours., Disp: 90 tablet, Rfl: 12 furosemide (LASIX) 20 mg tablet, Take 2 tablets (40 mg total) by mouth once a day., Disp: 180 tablet, Rfl: 3 lactulose 10 gram/15 mL solution, Take 30 mL (20 g total) by mouth 3 times a day., Disp: 8100 mL, Rfl: 3 midodrine (PROAMATINE) 5 mg tablet, Take 3 tablets (15 mg total) by mouth every 8 hours., Disp: 810tablet, Rfl: 3 rifAXIMin (XIFAXAN) 550 mg tablet, Take 1 tablet (550 mg total) by mouth every 12 hours., Disp: 180tablet, Rfl: 3 sodium chloride 0.9 % syringe, Use 1 syring (10ml) to fluch cholecystostomy tube up to 3 times a day., Disp: 600 mL, Rfl: 3 spironolactone (ALDACTONE) 50 mg tablet, Take 2 tablets (100 mg total) by mouth once a day., Disp: 60 tablet, Rfl: 11 Allergies: Patient has no known allergies. Review of Systems: Pertinent items are noted in HPI. Vitals: The vitals are There were no vitals taken for this visit. Physical examination: Gen: alert, nad HEENT: NCAT Chest: Unlabored breathing, symmetric chest rise Abdomen: soft, distended, cholecystostomy tube in the right upper quadrant Labs: Lab Results Component Value Date WBC 4.3 05/03/2024 HGB 11.6 (L) 05/03/2024 HCT 34.7 (L) 05/03/2024 MCV 94.3 05/03/2024 PLT 86 (L) 05/03/2024 Lab Results Component Value Date GLUCOSE 113 (H) 05/03/2024 CALCIUM 8.2 (L) 05/03/2024 NA 135 05/03/2024 K 3.7 05/03/2024 CO2 21 (L) 05/03/2024 CL 105 05/03/2024 BUN 14 05/03/2024 CREATININE 0.60 05/03/2024 EGFR >90 05/03/2024 Lab Results Component Value Date INR 1.5 05/03/2024 PT 16.5 (H) 05/03/2024 Lab Results Component Value Date ALBUMIN 3.0 (L) 05/03/2024 AST 69 (H) 05/03/2024 ALT 47 (H) 05/03/2024 BILITOT 2.4 (H) 05/03/2024 ALKPHOS 181 (H) 05/03/2024 MELD 3.0: 16 at 05/03/2024 3:18 AM MELD-Na: 16 at 05/03/2024 3:18 AM Calculated from: Serum Creatinine: 0.6 mg/dL (Using min of 1 mg/dL) at 05/03/2024 3:18 AM Serum Sodium: 135 mmol/L at 05/03/2024 3:18 AM Total Bilirubin: 2.4 mg/dL at 05/03/2024 3:18 AM Serum Albumin: 3 g/dL at 05/03/2024 3:18 AM INR(ratio): 1.5 at 05/03/2024 3:18 AM Age at listin years Sex: Male at 05/03/2024 3:18 AM Imaging/Other studies: I have personally reviewed the patient's imaging results Assessment/Plan: Nate Correa is a 63 y.o. male with prior episodes of SBP, on ciprofloxacin, for US-guided paracentesis with local anesthesia.. 05/15/2024 2:36 PM James Pyle MD PhD PGY-7 [1] Not in a hospital admission. documented in this encounter Miscellaneous Notes * Post-Procedure Note - JULIANE Ruiz - 05/15/2024 12:15 PM EST PROCEDURE: Therapeutic paracentesis. INDICATION: 63 y.o. male with recurrent ascites. WIRE COILER: JULIANE Ruiz ATTENDING: Dr. Santo, the Attending physician, was on site and immediately available for assistance throughout the entire procedure. SEDATION: None GUIDANCE: Ultrasound. COMPLICATIONS: None PROCEDURE DESCRIPTION: Informed consent was obtained from the patient after discussion of risks, benefits, and alternatives. Maximal sterile barrier technique and sterile ultrasound technique was used for the entire procedure. A timeout was performed. After local anesthesia with lidocaine, a 6 [place] Cent[employer] catheter wasadvanced into a pocket of ascites in the right lower quadrant under sonographic guidance. An ultrasound image was stored for the permanent record. serous fluid was aspirated. No samples sent. The catheter was then removed and hemostasis was obtained at the puncture site with manual compression. A sterile dressing was applied. The patient tolerated the procedure well. FINDINGS: Targeted ultrasound of the abdomen showed moderate volume loculated ascites. Therapeutic paracentesis performed. 1.1 L of serous fluid was aspirated and discarded. IMPRESSION: Ultrasound guided paracentesis performed with 1.1 L of fluid drained. documented in this encounter Plan of Treatment Upcoming Encounters Date Type Department Care Team (Latest Contact Info) Description 5 10:30 AM EST Appointment [facility] Interventional Radiology [address] [place] [phone] Mike Rey i, MD [address] [place] [phone] 5 10:30 AM EDT Appointment [facility] Interventional Radiology [address] [place] [phone] Mike Rey i, MD [address] [place] [address] 5 2:00 PM EDT Pre-Admission Testing [facility] [address] [place] [address] [address] [place] [address] 5 10:00 AM EDT Appointment [facility] Interventional Radiology [address] [place] [address] Mike Rey i, MD [address] [place] [address] 5 10:30 AM EDT Appointment [facility] Interventional Radiology [address] [place] [address] Mike Rey i, MD [address] [place] [address] 5 9:00 AM EDT Pre-Admission Testing [facility] [address] [phone] 5 10:30 AM EDT Appointment [facility] Interventional Radiology [address] [place] [address] Mike Rey i, MD [address] [place] [phone] 5 10:30 AM EDT Appointment [facility] Interventional Radiology [address] [place] [phone] Mike Rey i, MD [address] [place] [phone] 5 8:30 AM EDT Hospital Encounter [facility] Operating Room [address] [place] [address] Rachel Murray MD [address] [place] [phone] 5 8:30 AM EDT - 5 9:30 AM EDT Surgery [facility] Operating Room [address] [place] [address] Rachel Murray MD [address] [place] [phone] ENDOSCOPIC RETROGRADE CHOLANGIOPANCREATOGRAPHY WITH REMOVAL OF FOREIGN BODY(S)/STENT(S)/PANCREATIC DUCT(S) WITH POSSIBLE MODERATE SEDATION [90783 (CPT??)] 5 10:30 AM EDT Appointment [facility] Interventional Radiology [address] [place] [phone] Mike Rey i, MD [address] [place] [phone] 5 4:30 PM EDT Follow-Up [facility] [address] [place] [phone] Mike Rey i, MD [address] [place] [phone] 5 10:30 AM EDT Appointment [facility] Interventional Radiology [address] [place] [phone] Mike Rey i, MD [address] [place] [phone] 5 10:30 AM EDT Appointment [facility] Interventional Radiology [address] [place] [address] Mike Rey i, MD [address] [place] [phone] 5 10:30 AM EDT Appointment [facility] Interventional Radiology [address] [place] [phone] Mike Rey i, MD [address] [place] [phone] 5 10:30 AM EDT Appointment [facility] Interventional Radiology [address] [place] [address] Mike Rey i, MD [address] [place] [phone] 5 10:30 AM EDT Appointment [facility] Interventional Radiology [address] [place] [phone] Mike Rey i, MD [address] [place] [phone] 5 10:30 AM EDT Appointment [facility] Interventional Radiology [address] [place] [phone] Mike Rey i, MD [address] [place] [phone] 5 10:30 AM EDT Appointment [facility] Interventional Radiology [address] [place] [phone] Mike Rey i, MD [address] [place] [phone] 5 10:30 AM EDT Appointment [facility] Interventional Radiology [address] [place] [phone] Mike Rey i, MD [address] [place] [phone] 5 10:30 AM EDT Appointment [facility] Interventional Radiology [address] [place] [phone] Mike Rey i, MD [address] [place] [phone] 5 10:30 AM EDT Appointment [facility] Interventional Radiology [address] [place] [address] Mike Rey i, MD [address] [place] [address] 5 10:30 AM EDT Appointment [facility] Interventional Radiology [address] [place] [phone] Mike Rey i, MD [address] [place] [address] Scheduled Procedures Name Priority Associated Diagnoses Date/Ti me ENDOSCOPIC RETROGRADE CHOLANGIOPANCREATOGRAPHY WITH REMOVAL OF FOREIGN BODY(S)/STENT(S)/PANCREATIC DUCT(S) WITH POSSIBLE MODERATE SEDATION Encounter for removal of biliary stent 07/04/2024 8:30 AM EDT LAPAROSCOPIC CHOLECYSTECTOMY Acute cholecystitis documented as of this encounter Procedures * Due to [place] [employer] law, this organization might not be sharing negative HIV tests. Procedure Name Priority Date/Time Associated Diagnosis Comments IR PARACENTESIS DIAGNOSTIC AND THERAPEUTIC Routine 05/15/2024 3:00 PM EST Alcoholic cirrhosis of liver with ascites (CMS/HCC) (HCC) documented in this encounter Results * Due to [place] [employer] law, this organization might not be sharing negative HIV tests. * IR Paracentesis Diagnostic and Therapeutic (05/15/2024 3:00 PM EST) Anatomical Region Laterality Modality Body Ultrasound Impressions 05/16/2024 4:03 PM EST Ultrasound guided paracentesis performed with 1.1 L of fluid drained. ?? Narrative 05/16/2024 4:03 PM EST PROCEDURE: Therapeutic paracentesis. INDICATION: ??63 y.o. male with recurrent ascites. WIRE COILER: JULIANE Ruiz ATTENDING: Dr. Santo, the Attending physician, was on site and immediately available for assistance throughout the entire procedure. SEDATION: None GUIDANCE: Ultrasound. COMPLICATIONS: None PROCEDURE DESCRIPTION: Informed consent was obtained from the patient after discussion of risks, benefits, and alternatives. Maximal sterile barrier technique and sterile ultrasound technique was used for the entire procedure. A timeout was performed. After local anesthesia with lidocaine, a 6 [place] Centeze catheter was advanced into a pocket of ascites in the right lower quadrant under sonographic guidance. An ultrasound image was stored for the permanent record. serous fluid was aspirated. No samples sent. ??The catheter was then removed and hemostasis was obtained at the puncture site with manual compression. A sterile dressing was applied. The patient tolerated the procedure well. FINDINGS: Targeted ultrasound of the abdomen showed moderate volume loculated ascites. ??Therapeutic paracentesis performed. ??1.1 L of serous fluid was aspirated and discarded. ?? Mike Low MD IMG IR PROCEDURES Final Result documented in this encounter Visit Diagnoses Diagnosis Alcoholic cirrhosis of liver with ascites (CMS/HCC) (HCC) Encounter for removal of biliary stent documented in this encounter Administered Medications Inactive Administered Medications - up to 3 most recent administrations Medication Order MAR Action Action Date Dose Rate Site lidocaine PF (XYLOCAINE) 1% (10 mg/mL) injection As needed, Starting on Shirin 05/15/24 at 1446, Until Shirin 05/15/24 at 1446, Intra-op Given 05/15/2024 2:46 PM EST 10 mL Left Lower Abdomen documented in this encounter Care Teams Technical Support Assistant Relationship Specialty Start Date End Date Jade Harper [address] [place] [address] dr Charly Parks, MAGALIE [address] PCP - General Internal Medicine 03/06/24 documented as of this encounter
--- OUTSIDE RECORDS SUMMARY | 2024-05-28 11:42 | XMS_ITS | Encounter Summary ---
Author Organization [facility] Address [address] [place] [address] Care Team Providers Care Line Service Supervisor Name Role Phone Jade Harper Primary Care Provider [phone] Reason for Referral * (Emergency) - Pending Review Specialty Diagnoses / Procedures Referred By Randi mondragon Referred To Contact Radiology Diagnoses Alcoholic cirrhosis of liver with ascites (CMS/HCC) (HCC) Cholecystitis SBP (spontaneous bacterial peritonitis) (HCC) Procedures IR TIPS Mike Low MD [address] [place] [address] Phone: tel: fax: Referral ID Status Reason Start Date Expiration Date V isits Requested Visits Authorized [id number] Pending Review 05/20/2024 11/19/2025 6 6 Reason for Visit * Reason Comments End-Stage Liver Disease Follow-up * Transplant (Routine) - Pending Review Specialty Diagnoses / Procedures Referred By Randi mondragon Referred To Contact Transplant Diagnoses Liver Transplant Evaluation Ward Pina [address] [place] [address] Phone: tel: fax: [facility] [address] [place] [address] Phone: tel: fax: Referral ID Status Reason Start Date Expiration Date V isits Requested Visits Authorized [id number] Pending Review 03/06/2024 03/25/2025 50 50 Encounter Details Date Type Department Care Team (Castillo st Contact Info) Description 05/15/2024 11:00 AM EST Follow-Up [facility]plant [facility] [address] [place], [place] [phone] Mike Low MD [address] [place] [address] Alcoholic cirrhosis of liver with ascites (CMS/HCC) (HCC) (Primary Dx); Cholecystitis; SBP (spontaneous bacterial peritonitis) (HCC) Social History Tobacco Use Types Packs/Day Years Used Date Smoking Tobacco: Never Smokeless Tobacco: Never Alcohol Use Standard Drinks/Week Comments Not Currently 8 (1 standard drink = 0.6 oz pur e alcohol) sober since 11/2023 [facility] Utilities Answer Date Recorded In the past [...] Sign Reading Time Taken Comments Blood Pressure 116/77 05/15/2024 11:00 AM EST Pulse 87 05/15/2024 11:00 AM EST Temperature 36.4 ??C (97.6 ??F) 05/15/2024 11:[address] Respiratory Rate 18 05/15/2024 11:00 AM EST Oxygen Saturation 96% 05/15/2024 11:00 AM EST Inhaled Oxygen Concentration - - Weight 91 kg (200 lb 9.9 oz) 05/15/2024 11:00 AM EST Height - - Body Mass Index 27.98 04/29/2024 12:55 PM EST documented in this encounter Progress Notes * Mike Low MD - 05/15/2024 11:00 AM EST TRANSPLANT HEPATOLOGY CLINIC NOTE PRIMARY CARE PROVIDER: Jade Harper LOCAL LAMP TESTER AND INSPECTOR: Dr. Harper Patient Name: Nate Correa : 1960 Reason For Visit Hospital follow up for secondary bacterial peritonitis History of Present Illness: [...] portal hypertension. His liver disease was noted gene complicated by small volume ascites. On the day of his most recent admission I saw him in clinic at which time he had developed a few days of abdominal distension and discomfort, anorexia, nausea with dry heaving, and leaking around hisPCT. After clinic he had a diagnostic and therapeutic paracentesis notable for recurrent secondary bacterial peritonitis. 1.7L was removed. He underwent an attempt at placement of cystic duct stents to facilitate removal of the PCT. This was attempted on two occasions with difficult bile duct cannulation. His second ERCP was 05/02 and he had multiple impacted stones in the gallbladder with a tortuous and stenosed cyst duct. Neither a catheter nor a dilating balloon could be passed into the gallbladder/cystic duct. One stent was placed into the distal cystic duct and one into the common bile duct given some oozing. The recommendation was for a follow up ERCP in two months for stent removal buffy-attempt at drainage. Labs on discharge were notable for a MELD 3.0 of 16. He has officially beenapproved and listed for transplant. IR was consulted for outpatient TIPS to manage ascites with ultimate plans for cholecystectomy. His most recent paracentesis was 05/09 with removal of 500 mL fluid without evidence of infection. He is on low dose diuretics and ciprofloxacin for secondary prophylaxis. Today Mr. Correa continues to be bothered by abdominal pain. He has no fevers, chills, or confusion. He has no nausea or vomiting but anorexia and altered taste. He is trying his best to consume a high protein diet. He is having about three bowel movements per day. Current Outpatient Medications Medication Sig Dispense Refill acetaminophen (TYLENOL) 500 mg tablet Take 500 mg by mouth every 6 hours as needed for pain. ciprofloxacin (CIPRO) 500 mg tablet Take 1 tablet (500 mg total) by mouth every 24 hours. 30 clozgi80 furosemide (LASIX) 20 mg tablet Take 1 tablet (20 mg total) by mouth once a day. 30 tablet 0 lactulose 10 gram/15 mL solution Take 30 mL (20 g total) by mouth 3 times a day. 2700 mL 0 midodrine (PROAMATINE) 5 mg tablet Take 3 tablets (15 mg total) by mouth every 8 hours. 270 tablet 2 polyethylene glycol 3350 (MIRALAX) 17 gram packet Take 1 packet (17 g total) by mouth daily as needed for constipation. Mix powder in 4 to 8 oz of water, juice, coffee, or tea prior to administration. 30 packet 0 rifAXIMin (XIFAXAN) 550 mg tablet Take 1 tablet (550 mg total) by mouth every 12 hours. 180 tablet 3 sodium chloride 0.9% injection INJECT 0.3-1 SYRINGE (3-10 ML) BY INTRALUMINAL ROUTE EVERY 8 HOURS. 900 mL 3 spironolactone (ALDACTONE) 50 mg tablet Take 1 tablet (50 mg total) by mouth once a day. 30 tablet 0 traZODone (DESYREL) 50 mg tablet Take 1 [...] those mentioned in HPI. Physical Exam: Vitals: 05/15/24 1100 BP: 116/77 Pulse: 87 Resp: 18 Temp: 36.4 ??C (97.6 ??F) SpO2: 96% Gen: Does not appear toxic; somewhat chronically ill appearing. 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 Correa is a 63-year-old male with decompensated Met-ALD cirrhosis in the setting of alcohol use disorder and class I obesity with metabolic syndrome now listed for transplant. When I had initially met him at the end of February 2024 we had deferred a transplant evaluation ahead of his cholecystectomy planned with Dr. Erwin because of the patient's preserved synthetic function. However now that he has decompensated in the setting of septic shock, he has completed a transplant evaluation andis listed, although hoping to avoid transplant if possible. ERCP for cystic duct stent placement was not possible because of a tortuous and stenosed cystic duct so the current plan is for a TIPS followed by a cholecystectomy to facilitate removal of the PCT. A repeat ERCP is already scheduled for June however in the event surgery is not the best option and we recommend a repeat attempt at endoscopic management. # Ascites # Secondary bacterial peritonitis Continue once daily ciprofloxacin for secondary prophylaxis. Increase lasix to 30 mg daily and spironolactone to 100 mg daily. Routine paracenteses. Continue midodrine 15 mg 3 times daily. Plan for TIPS to manage volume in the setting of cholecystectomy. Will need repeat labs in 1-2 weeks. # Hepatic encephalopathy Lactulose and rifaximin for 3-4 bowel movements per day plus rifaximin. # At risk for esophageal varices No obvious varices seen on ERCP. # At risk for HCC Will be due for surveillance imaging 08/2024. # Health maintenance Needs to be vaccinated against hepatitis A and B. Had a colonoscopy in 2021 with two tubular adenomas removed (largest 1 cm), plan for surveillance in 2026. # Follow up Already scheduled with me in June. documented in this encounter Plan of Treatment Upcoming Encounters Date Type Department Care Team (Latest Contact Info) Description 5 10:30 AM EST Appointment [facility] Interventional Radiology [address] [place] [address] Mike Rey i, MD [address] [place] [address] 18436 5 10:30 AM EDT Appointment [facility] Interventional Radiology [address] [place] [address]607 Mike Rey i, MD [address] [place] [address] 42586 5 2:00 PM EDT Pre-Admission Testing [facility] [address] [place] [address] 5 10:00 AM EDT Appointment [facility] Interventional Radiology [address] [place] [address] Mike Rey i, MD [address] [place] [address] [phone] 5 10:30 AM EDT Appointment [facility] Interventional Radiology [address] [place] [address] Mike Rey i, MD [address] [place] [address] 5 9:00 AM EDT Pre-Admission Testing [facility] [address] [place] [address] 5 10:30 AM EDT Appointment [facility] Interventional Radiology [address] [place] [address] Mike Rey i, MD [address] [place] [address] 46281 5 10:30 AM EDT Appointment [facility] Interventional Radiology [address] [place] [address] Mike Rey i, MD [address] [place] [address] 02336 5 8:30 AM EDT Hospital Encounter [facility] Operating Room [address] [place] [address] Rachel Murray MD [address] [place] [address] 06180 5 8:30 AM EDT - 5 9:30 AM EDT Surgery [facility] Operating Room [address] [place] [address] Rachel Murray MD [address] [place] [address] 087[address] ENDOSCOPIC RETROGRADE CHOLANGIOPANCREATOGRAPHY WITH REMOVAL OF FOREIGN BODY(S)/STENT(S)/PANCREATIC DUCT(S) WITH POSSIBLE MODERATE SEDATION [18875 (CPT??)] 5 10:30 AM EDT Appointment [facility] Interventional Radiology [address] [place] [address] 94[address] Mike Rey i, MD [address] [place] [address] 59985 5 4:30 PM EDT Follow-Up [facility] Liver Transplant Services [address] [place] [address] 13229 Mike Rey i, MD [address] [place] [address] 20128 5 10:30 AM EDT Appointment [facility] Interventional Radiology [address] [place] [address] 505[address] Mike Rey i, MD [address] [place] [address] 10149 5 10:30 AM EDT Appointment [facility] Interventional Radiology [address] [place] [address] 86170 Mike Rey i, MD [address] [place] [address] 20550 5 10:30 AM EDT Appointment [facility] Interventional Radiology [address] [place] [address] 38[address] Mike Rey i, MD [address] [place] [address] 94434 5 10:30 AM EDT Appointment [facility] Interventional Radiology [address] [place] [address] [phone] Mike Rey i, MD [address] [place] [address] 5 10:30 AM EDT Appointment [facility] Interventional Radiology [address] [place] [address] 17578 Mike Rey i, MD [address] [place] [address] 87187 5 10:30 AM EDT Appointment [facility] Interventional Radiology [address] [place] [address] 74884 Mike Rey i, MD [address] [place] [address] 26588 5 10:30 AM EDT Appointment [facility] Interventional Radiology [address] [place] [address] 53866 Mike Rey i, MD [address] [place] [address] 34905 5 10:30 AM EDT Appointment [facility] Interventional Radiology [address] [place] [address] 93142 Mike Rey i, MD [address] [place] [address] 95345 5 10:30 AM EDT Appointment [facility] Interventional Radiology [address] [place] [address] 08487 Mike Rey i, MD [address] [place] [address] 95738 5 10:30 AM EDT Appointment [facility] Interventional Radiology [address] [place] [address] 01107 Mike Rey i, MD [address] [place] [address] 10:30 AM EDT Appointment [facility] Interventional Radiology [address] [place] [address] Mike Rey i, MD [address] [place] [address] Scheduled Orders Name Type Priority Associated Diagnoses Orde r Schedule IR TIPS Imaging STAT Alcoholic cirrhosis of liver with ascites (CMS/HCC) (HCC) Cholecystitis SBP (spontaneous bacterial peritonitis) (HCC) Expected: 05/15/2024, Expires: 07/13/2025 Scheduled Procedures Name Priority Associated Diagnoses Date/Ti tx ENDOSCOPIC RETROGRADE CHOLANGIOPANCREATOGRAPHY WITH REMOVAL OF FOREIGN BODY(S)/STENT(S)/PANCREATIC DUCT(S) WITH POSSIBLE MODERATE SEDATION Encounter for removal of biliary stent 07/04/2024 8:30 AM EDT LAPAROSCOPIC CHOLECYSTECTOMY Acute cholecystitis documented as of this encounter Visit Diagnoses Diagnosis Alcoholic cirrhosis of liver with ascites (CMS/HCC) (HCC)- Primary Cholecystitis Cholecystitis, unspecified SBP (spontaneous bacterial peritonitis) (HCC) Spontaneous bacterial peritonitis Encounter for removal of biliary stent documented in this encounter Care Teams Line Service Supervisor Relationship Specialty Start Date End Date Jade Harper [address] [place] [address] [place] [address] PCP - General Internal Medicine 03/06/24 documented as of this encounter
--- OUTSIDE RECORDS SUMMARY | 2024-05-28 11:42 | XMS_ITS | Encounter Summary ---
Author Organization [facility] Address [address] [place] [address] Care Team Providers Care Centrifugal Supervisor Name Role Phone Jade Harper Primary Care Provider [phone] Encounter Details Date Type Department Care Team (Late st Contact Info) Description 05/09/2024 Orders Only [facility] Transplant Department [address] [place], [place] [phone] Alondra Aceves, RN Alcoholic cirrhosis of liver with ascites (CMS/HCC) (HCC) (Primary Dx) Social History Tobacco Use Types Packs/Day Years Used Date Smoking Tobacco: Never Smokeless Tobacco: Never Alcohol Use Standard Drinks/Week Comments Not Currently 8 (1 standard drink = 0.6 oz pur e alcohol) sober since 11/2023 [facility] Utilities Answer Date Recorded In the past 12 months has [employer], gas, oil, or water [employer] threatened to shut off services in your [...] Info) Description 5 10:30 AM EST Appointment [facility] Interventional Radiology [address] [place] [address] Mike Rey i, MD [address] [place] [address] 92565 5 10:30 AM EDT Appointment [facility] Interventional Radiology [address] [place] [address] 26072 Mike Rey i, MD [address] [place] [address] 35821 5 2:00 PM EDT Pre-Admission Testing [facility] Pre Surgical Center [address] [place] [address] 79107 5 10:00 AM EDT Appointment [facility] Interventional Radiology [address] [place] [address] 82880 Mike Rey i, MD [address] [place] [address] 05060 5 10:30 AM EDT Appointment [facility] Interventional Radiology [address] [place] [address] 15891 Mike Rey i, MD [address] [place] [address] 5 9:00 AM EDT Pre-Admission Testing [facility] Pre Surgical Center [address] [facility] 3rd [place] [address] 5 10:30 AM EDT Appointment [facility] Interventional Radiology [address] [place] [address] Mike Rey i, MD [address] [place] [address] 5 10:30 AM EDT Appointment [facility] Interventional Radiology [address] [place] [address] 60400 Mike Rey i, MD [address] [place] [address] 56409 5 8:30 AM EDT Hospital Encounter [facility] Operating Room [address] [place] [address] Rachel Murray MD [address] [place] [address] 52471 5 8:30 AM EDT - 5 9:30 AM EDT Surgery [facility] Operating Room [address] [place] [address] Rachel Murray MD [address] [place] [address] 24583 ENDOSCOPIC RETROGRADE CHOLANGIOPANCREATOGRAPHY WITH REMOVAL OF FOREIGN BODY(S)/STENT(S)/PANCREATIC DUCT(S) WITH POSSIBLE MODERATE SEDATION [23327 (CPT??)] 5 10:30 AM EDT Appointment [facility] Interventional Radiology [address] [place] [address] 64607 Mike Rey i, MD [address] [place] [address] 98071 5 4:30 PM EDT Follow-Up [facility] Liver Transplant Services [address] [place] [address] 79906 Mike Rey i, MD [address] [place] [address] 09823 5 10:30 AM EDT Appointment [facility] Interventional Radiology [address] [place] [address] 16564 Mike Rey i, MD [address] [place] [address] 67222 5 10:30 AM EDT Appointment [facility] Interventional Radiology [address] [place] [address] 79839 Mike Rey i, MD [address] [place] [address] 96926 5 10:30 AM EDT Appointment [facility] Interventional Radiology [address] [place] [address] 47435 Mike Rey i, MD [address] [place] [address] 33598 5 10:30 AM EDT Appointment [facility] Interventional Radiology [address] [place] [address] 31894 Mike Rey i, MD [address] [place] [address] 77840 5 10:30 AM EDT Appointment [facility] Interventional Radiology [address] [place] [address] 34971 Mike Rey i, MD [address] [place] [address] 64454 5 10:30 AM EDT Appointment [facility] Interventional Radiology [address] [place] [address] 45902 Mike Rey i, MD [address] [place] [address] 85820 5 10:30 AM EDT Appointment [facility] Interventional Radiology [address] [place] [address] 31099 Mike Rey i, MD [address] [place] [address] 90644 5 10:30 AM EDT Appointment [facility] Interventional Radiology [address] [place] [address] 43453 Mike Rey i, MD [address] [place] [address] 22787 5 10:30 AM EDT Appointment [facility] Interventional Radiology [address] [place] [address] 68802 Mike Rey i, MD [address] [place] [address] 71061 5 10:30 AM EDT Appointment [facility] Interventional Radiology [address] [place] [address] 74300 Mike Rey i, MD [address] [place] [address] 41153 10:30 AM EDT Appointment [facility] Interventional Radiology [address] [place] [address] Mike Rey i, MD [address] [place] [address] 74188 Scheduled Procedures Name Priority Associated Diagnoses Date/Ti ca ENDOSCOPIC RETROGRADE CHOLANGIOPANCREATOGRAPHY WITH REMOVAL OF FOREIGN BODY(S)/STENT(S)/PANCREATIC DUCT(S) WITH POSSIBLE MODERATE SEDATION Encounter for removal of biliary stent 07/04/2024 8:30 AM EDT LAPAROSCOPIC CHOLECYSTECTOMY Acute cholecystitis documented as of this encounter Results * Due to [place] state law, this organization might not be sharing negative HIV tests. * (ABNORMAL) Comprehensive Metabolic Panel (05/15/2024 3:29 PM EST) NA 135 135 - 145 mmol/L 05/15/2024 4:20 PM EST [facility] K 3.6 3.5 - 5.3 mmol/L 05/15/2024 4:20 PM EST [facility] Cl 101 98 - 107 mmol/L 05/15/2024 4:20 PM EST [facility] CO2 20(L) 22 - 32 mmol/L 05/15/2024 4:20 PM EST [facility] Anion Gap 14 5 - 15 05/15/2024 4:20 PM EST [facility] Glucose 107(H) 65 - 99 mg/dL 05/15/2024 4:20 PM EST [facility] Creatinine 0.63 0.60 - 1.30 mg/dL 05/15/2024 4:20 PM EST [facility] Calcium 8.7 8.6 - 10.5 mg/dL 05/15/2024 4:20 PM EST [facility] Total Protein 7.1 6.0 - 8.0 g/dL 05/15/2024 4:20 PM EST [facility] Albumin 3.2(L) 3.5 - 5.2 g/dL 05/15/2024 4:20 PM EST [facility] Bilirubin, Total 2.9(H) 0.2 - 1.2 mg/dL 05/15/2024 4:20 PM EST [facility] Alkaline Phosphatase 153(H) 35 - 129 U/L 05/15/2024 4:20 PM EST [facility] AST 46(H) 10 - 40 U/L 05/15/2024 4:20 PM EST [facility] ALT 27 10 - 40 U/L 05/15/2024 4:20 PM [facility] BUN 9 7 - 23 mg/dL 05/15/2024 4:20 PM EST [facility] eGFR >90 >=60 mL/min/1. 73m2 05/15/2024 4:20 PM [facility] Comment:The estimated glomer ular [...] 2.1 - 4.2 g/dL 05/15/2024 4:20 PM [facility] A/G Ratio 0.8(L) 1.5 - 3.0 05/15/2024 4:20 PM [facility] Blood Structure of peripheral vein / Unknown Venipuncture / Unknown 05/15/2024 3:29 PM EST 05/15/2024 3:47 PM EST Mike Low MD LAB BLOOD ORDERABLES Fin al Result [facility] [address] [place] [address], [place] * (ABNORMAL) CBC Auto Differential (05/15/2024 3:29 PM EST) WBC 7.0 3.8 - 10.8 10*3/uL 05/15/2024 [...] - 0.9 % 05/15/2024 4:21 PM EST [facility] Lymphocyte % 17.8 % 05/15/2024 4:21 PM EST [facility] Monocyte % 12.8 % 05/15/2024 4:21 PM EST [facility] Eosinophil % 0.7 % 05/15/2024 4:21 PM EST [facility] Basophil % 0.6 % 05/15/2024 4:21 PM EST [facility] Neutrophil # 4.74 1.50 - 7.80 10*3/uL 05/15/2024 4:21 PM EST [facility] Immature Grans # <0.03 <=0.03 10*3/uL 05/15/2024 4:21 PM EST [facility] Lymphocyte # 1.20 0.85 - 3.90 10*3/uL 05/15/2024 4:21 PM EST [facility] Monocyte # 0.90 0.20 - 0.95 10*3/uL 05/15/2024 4:21 PM EST [facility] Eosinophil # 0.10 0.02 - 0.50 10*3/uL 05/15/2024 4:21 PM EST [facility] Basophil # <0.03 0.00 - 0.20 10*3/uL 05/15/2024 4:21 PM EST [facility] nRBC % 0.0 /100 WBCs 05/15/2024 4:21 PM EST [facility] nRBC # <0.01 <0.01 10*3/uL 05/15/2024 4:21 PM EST [facility] Blood Structure of peripheral vein / Unknown Venipuncture / Unknown 05/15/2024 3:29 PM EST 05/15/2024 3:47 PM EST Mike Low MD LAB BLOOD ORDERABLES Fin al Result Performing Organization Address [facility] Co de Phone Number [facility] [address] [place] [address] * (ABNORMAL) Protime-INR (05/15/2024 3:29 PM EST) PT 15.8(H) 9.6 - 12.4 Seconds 05/15/2024 4:12 PM EST [facility] INR 1.5 0.9 - 1.1 05/15/2024 4:12 PM EST [facility] Comment:The optimal therapeu tic INR range for patients treated with Vitamin K antagonists (VKAS, e.g., Warfarin) is 2.0 to 3.5. Discuss the desired range with your doctor/care team. Blood Structure of peripheral vein / Unknown Venipuncture / Unknown 05/15/2024 3:29 PM EST 05/15/2024 3:47 PM EST Mike Low MD LAB BLOOD ORDERABLES Fin al Result Performing Organization Address [facility] de Phone Number [facility] [address] [place] [address] documented in this encounter Visit Diagnoses Diagnosis Alcoholic cirrhosis of liver with ascites (CMS/HCC) (HCC)- Primary Encounter for removal of biliary stent documented in this encounter Care Teams Centrifugal Supervisor Relationship Specialty Start Date End Date Jade Harper [address] [place] [address] [place] [address] PCP - General Internal Medicine 03/06/24 documented as of this encounter
--- OUTSIDE RECORDS SUMMARY | 2024-05-28 11:42 | XMS_ITS ---
Author Organization [facility] Address [address] [place] [address] Care Team Providers Care Gear Straightener Name Role Phone Jade Harper MD Primary Care Provider Santos Almeida Jr [phone] REASON FOR VISIT patient status Encounters Encounter Location Date Provider Diagnosis [facility] [address] [place] [address] 04/22/2024 Santos Khan Jr Plan Of Treatment No Information Progress Notes * DARCIE CAMACHO CDOB:1960 (63 yo M)Acc No.[id number]:04/22/2024 Patient:?DARCIE CAMACHO :1960???Age:63 Y???Sex:Male Address:[facility] [place], [address] * true * Date:? Generated for Printi ever/Kenroy/eTransmitting on:?05/28/2024 11:41 AM EST
--- OUTSIDE RECORDS SUMMARY | 2024-05-28 11:42 | XMS_ITS | Encounter Summary ---
Author Organization [facility] Address [address] [place] [address] Care Team Providers Care Cosmetology Instructor Name Role Phone Jade Harper Primary Care Provider [phone] Encounter Details Date Type Department Care Team (Latest Contact Info) Description 05/09/2024 9:02 AM EST - 05/09/2024 11:59 PM [facility] Hospital Encounter [facility] Interventional Radiology [address] [place] [address] Mike Low MD [address] [place] [address] Alcoholic cirrhosis of liver with ascites (CMS/HCC) (HCC) Discharge Disposition: Home or Self Care () Social History Tobacco Use Types Packs/Day Years Used Date Smoking Tobacco: Never Smokeless Tobacco: Never Alcohol Use Standard Drinks/Week Comments Not Currently 8 (1 standard drink = 0.6 oz pur e alcohol) sober since 11/2023 [facility] Utilities Answer Date Recorded In the past [...] Sign Reading Time Taken Comments Blood Pressure 115/78 05/09/2024 11:10 AM EST Pulse 84 05/09/2024 11:10 AM EST Temperature 36.6 ??C (97.9 ??F) 05/09/2024 9:20 AM ES T Respiratory Rate 16 05/09/2024 11:10 AM EST Oxygen Saturation 97% 05/09/2024 11:10 AM EST Inhaled Oxygen Concentration - - Weight - - Height - - Body Mass Index - - documented in this encounter Discharge Instructions * Attachments The following attachments cannot be sent through Care Everywhere. * [facility] RIS DC PARACENTESIS documented in this encounter [...] 04/19/2024 05/15/2024 documented as of this encounter Nursing Notes * Kimberly Caruso RN - 05/09/2024 11:03 AM EST Specimens have been obtained and labeled. documented in this encounter Miscellaneous Notes * Post-Procedure Note - JULIANE Osborne - 05/09/2024 9:30 AM EST PROCEDURE: Diagnostic and therapeutic paracentesis. INDICATION: 63 y.o. year old male with alcohol cirrhosis and recurrent ascites. ATTENDING: Dr. Marcie Maxwell, the Attending physician, was on site and immediately available for assistance throughout the entire procedure. INLAYER SILVER: Sharda Sweeney PA-C SEDATION: None DURATION: 40 minutes MEDICATIONS: 1. [...] a pocket of ascites in the left lower quadrant under sonographic guidance. An ultrasound [...] therapeutic paracentesis performed via left lower quadrant. 500 cc of turbid orange tinged fluid was aspirated and discarded. Samples of the fluid were sent for laboratory assays. IMPRESSION: Diagnostic and therapeutic paracentesis performed via left lower quadrant. 500 cc of turbid orange fluid was aspirated and discarded. Samples of the fluid were sent for laboratory assays. Of note, patient endorsed abdominal pain and peritoneal signs. His fluid was turbid and orange colored. documented in this encounter Plan of Treatment Upcoming Encounters Date Type Department Care Team (Latest Contact Info) Description 5 10:30 AM EST Appointment [facility] Interventional Radiology [address] [place] [address] Mike Rey i, MD [address] [place] [address] 5 10:30 AM EDT Appointment [facility] Interventional Radiology [address] [place] [address] Mike Rey i, MD [address] [place] [address] 5 2:00 PM EDT Pre-Admission Testing [facility] [address] [address] 5 10:00 AM EDT Appointment [facility] Interventional Radiology [address] [place] [address] Mike Rey i, MD [address] [place] [address] 5 10:30 AM EDT Appointment [facility] Interventional Radiology [address] [place] [address] Mike Rey i, MD [address] [place] [phone] 5 9:00 AM EDT Pre-Admission Testing [facility] [address] [address] 5 10:30 AM EDT Appointment [facility] Interventional Radiology [address] [place] [address] Mike Rey i, MD [address] [place] [address] 5 10:30 AM EDT Appointment [facility] Interventional Radiology [address] [place] [address] Mike Rey i, MD [address] [place] [address] 5 8:30 AM EDT Hospital Encounter [facility] Operating Room [address] [place] [address] Rachel Murray MD [address] [place] [address] 5 8:30 AM EDT - 5 9:30 AM EDT Surgery [facility] Operating Room [address] [place] [address] Rachel Murray MD [address] [place] [address] ENDOSCOPIC RETROGRADE CHOLANGIOPANCREATOGRAPHY WITH REMOVAL OF FOREIGN BODY(S)/STENT(S)/PANCREATIC DUCT(S) WITH POSSIBLE MODERATE SEDATION [49339 (CPT??)] 5 10:30 AM EDT Appointment [facility] Interventional Radiology [address] [place] [address] Mike Rey i, MD [address] [place] [address] 5 4:30 PM EDT Follow-Up [facility] [address] [place] [address] Mike Rey i, MD [address] [place] [address] 5 10:30 AM EDT Appointment [facility] Interventional Radiology [address] [place] [address] Mike Rey i, MD [address] [place] [address] 5 10:30 AM EDT Appointment [facility] Interventional Radiology [address] [place] [address] Mike Rey i, MD [address] [place] [address] 5 10:30 AM EDT Appointment [facility] Interventional Radiology [address] [place] [address] Mike Rey i, MD [address] [place] [address] 5 10:30 AM EDT Appointment [facility] Interventional Radiology [address] [place] [address] Mike Rey i, MD [address] [place] [address] 5 10:30 AM EDT Appointment [facility] Interventional Radiology [address] [place] [address] Mike Rey i, MD [address] [place] [address] 5 10:30 AM EDT Appointment [facility] Interventional Radiology [address] [place] [address] Mike Rey i, MD [address] [place] [address] 5 10:30 AM EDT Appointment [facility] Interventional Radiology [address] [place] [address] Mike Rey i, MD [address] [place] [address] 5 10:30 AM EDT Appointment [facility] Interventional Radiology [address] [place] [address] Mike Rey i, MD [address] [place] [address] 5 10:30 AM EDT Appointment [facility] Interventional Radiology [address] [place] [address] Mike Rey i, MD [address] [place] [address] 5 10:30 AM EDT Appointment [facility] Interventional Radiology [address] [place] [address] Mike Rey i, MD [address] [place] [address] 5 10:30 AM EDT Appointment [facility] Interventional Radiology [address] [place] [address] Mike Rey i, MD [address] [place] [phone] Scheduled Orders Name Type Priority Associated Diagnoses Orde r Schedule STAT Gram Stain Microbiology Timed Alcoholic cirrhosis of liver with ascites (CMS/HCC) (HCC) 05/09/2024 until discontinued, 1 completed Scheduled Procedures Name Priority Associated Diagnoses Date/Ti me ENDOSCOPIC RETROGRADE CHOLANGIOPANCREATOGRAPHY WITH REMOVAL OF FOREIGN BODY(S)/STENT(S)/PANCREATIC DUCT(S) WITH POSSIBLE MODERATE SEDATION Encounter for removal of biliary stent 07/04/2024 8:30 AM EDT LAPAROSCOPIC CHOLECYSTECTOMY Acute cholecystitis documented as of this encounter Procedures * Due to [place] law, this organization might not be sharing negative HIV tests. Procedure Name Priority Date/Time Associated Diagnosis Comments IR PARACENTESIS DIAGNOSTIC AND THERAPEUTIC Routine 05/09/2024 [...] (CMS/HCC) (HCC) PROTEIN, BODY FLUID Routine 05/09/2024 1 0:33 AM EST Alcoholic cirrhosis of liver with ascites (CMS/HCC) (HCC) LACTATE DEHYDROGENASE, BODY FLUID Routine 05/09/2024 10:33 AM EST Alcoholic cirrhosis of liver with ascites (CMS/HCC) (HCC) GLUCOSE, BODY FLUID Routine 05/09/2024 1 0:33 AM EST Alcoholic cirrhosis of liver with ascites (CMS/HCC) (HCC) documented in this encounter Results * Due to [place] law, this organization might not be sharing negative HIV tests. * IR Paracentesis Diagnostic and Therapeutic (05/09/2024 11:07 AM EST) Anatomical Region Laterality Modality Body X-Ray Angiograph y Impressions 05/09/2024 1:02 PM EST Diagnostic and therapeutic paracentesis performed via left lower quadrant. 500 cc of turbid orange fluid was aspirated and discarded. Samples of the fluid were sent for laboratory assays. Of note, patient endorsed abdominal pain and peritoneal signs. His fluid was turbid and orange colored. ? Narrative 05/09/2024 1:02 PM EST Table formatting from the original result was not included. PROCEDURE: Diagnostic and therapeutic paracentesis. INDICATION: ??63 y.o. year old male with alcohol cirrhosis and recurrent ascites. ATTENDING: Dr. Marcie Maxwell, the Attending physician, was on site and immediately available for assistance throughout the entire procedure. INLAYER SILVER: Sharda Sweeney PA-C SEDATION: None DURATION: ??40 minutes MEDICATIONS: 1. Lidocaine 1% for local [...] a pocket of ascites in the left lower quadrant under sonographic guidance. An ultrasound [...] of the abdomen showed moderate volume ascites. ?? Diagnostic and therapeutic paracentesis performed via left lower quadrant. 500 cc of turbid orange tinged fluid was aspirated and discarded. Samples of the fluid were sent for laboratory assays. Mike Low MD [facility] IR PROCEDURES Final Result * STAT Gram Stain (05/09/2024 10:33 AM EST) Gram Stain, STAT No organisms seen 05/09/2024 12:57 PM EST [employer] [facility] Gram Stain, STAT 2+ Red Blood Cells 05/09/2024 12:57 PM EST [employer] CL[facility]OLOG[facility] LAB[facility] Gram Stain, STAT 1+ Polymorphonuclear leukocytes 05/09/2024 12:57 PM EST [facility] [employer] CL[facility] LAB[facility] Gram Stain, STAT 1+ Mononuclear Cells 05/09/2024 12:57 PM EST [facility] [employer] CL[facility] LAB[facility] Body Fluid Peritoneal cavity structure / Unknown 05/09/2024 10:33 AM EST 05/09/2024 11:10 AM EST us Mike Low MD LAB MICROBIOLOGY - GENER AL ORDERABLES Final Result [facility] [employer] [facility] [address] [place] [address], * Anaerobic Culture (05/09/2024 10:33 AM EST) Culture No anaerobes isolated. 05/15/2024 9:59 AM EST [employer] Body Fluid Peritoneal cavity structure / Unknown 05/09/2024 10:33 AM EST Comment:ascites Narrative [facility] - 05/15/2024 9:59 AM EST [facility] Received Date: MICRO NUMBER: [id number] SPECIMEN QUALITY: Adequate SOURCE: BODY FLUID PERITONEAL STATUS: FINAL us Mike Low MD LAB MICROBIOLOGY - GENER AL ORDERABLES Final Result [facility] [address] [address], [place] [address], [place] [phone] [employer] [facility] [address] [facility] [address], [place] [address], [place] [phone] * Body Fluid Aerobic Culture (05/09/2024 10:33 AM EST) Culture No growth 05/15/2024 7:58 AM EST [facility] Body Fluid Peritoneal cavity structure / Unknown 05/09/2024 10:33 AM EST Comment:ascites Narrative [facility] - 05/15/2024 7:58 AM EST [facility] Received Date: MICRO NUMBER: [id number] SPECIMEN QUALITY: Adequate SOURCE: BODY FLUID PERITONEAL STATUS: FINAL Mike Low MD LAB MICROBIOLOGY - GENER AL ORDERABLES Final Result [facility] [address] [address] [facility] [address], [place] [address], [place] [phone] [employer] [facility] [address] [address], [place] [address], [place] [phone] * (ABNORMAL) Cell Count w/Differential, Peritoneal (05/09/2024 10:33 AM EST) Color, Peritoneal Yellow Colorless, Yellow, Straw 05/09/2024 12:14 PM EST [facility] CL[facility]ICAL PATHOLOGY LAB[facility]ORY Appearance, Peritoneal Cloudy(A) Clear 05/09/2024 12:14 PM [facility] PATHOLOGY LAB[facility] TNC/WBC, Peritoneal 368(H) <=250 cells/mm3 05/09/2024 12:14 PM EST [facility] CL[facility] PATHOLOG[facility] LAB[facility] Comment:Values of TNC <=250 do not rule out abnormality. Clinical correlation is advised. RBC, Peritoneal 8,000 Not established cells/mm3 05/09/2024 12:14 PM [facility] CLINICAL PATHOLOGY LABORATORY Neutrophils %, Peritoneal 4 % 05/09/2024 12:14 PM EST [facility] CL[facility]ICAL PATHOLOG[facility] LAB[facility]ORY Lymphocytes %, Peritoneal 83 % 05/09/2024 12:14 PM EST [facility] PATH[facility] Mcdonald/Macrophage %, Peritoneal 13 % 05/09/2024 12:14 PM [facility] PATHOLOGY LAB[facility] Differential Cells Counted, Peritoneal 70 05/09/2024 12:14 PM [facility] PATHOLOGY [facility] Body Fluid Peritoneal cavity structure / Unknown 05/09/2024 10:33 AM EST 05/09/2024 11:12 AM EST Comment:ascites us Mike Low MD LAB BODY FLUIDS AND STOO LS ORDERABLES Final Result Performing Organization Address [facility] Co de Phone Number [facility] CLINICAL PATHOLOGY LABORATORY [address] [place] [address], [place] * Protein, Body Fluid (05/09/2024 10:33 AM EST) Protein, Fluid 2.4 g/dL 05/09/2024 12:01 PM EST [facility] PATHOLOG[facility] Comment: No reference range available. This test was developed and its performance characteristics determined by [facility] Clinical [facility]. USFDA has not approved or cleared this test. FDA clearance or approval is not currently required for clinical use. The results are not intended to be used as the sole means for clinical diagnosis or patient management decisions. Body Fluid Peritoneal cavity structure / Unknown 05/09/2024 10:33 AM EST 05/09/2024 11:10 AM EST Comment:ascites us Mike Low MD LAB BODY FLUIDS AND STOO LS ORDERABLES Final Result Performing Organization Address [facility] Co de Phone Number [facility] [address] [place] [address], [place] * Lactate Dehydrogenase, Body Fluid (05/09/2024 10:33 AM EST) LDH, Fluid 96 U/L 05/09/2024 12:01 PM EST [facility] PATH[facility] Comment: No reference range available. This test was developed and its performance characteristics determined by [facility]. FDA has not approved or cleared this test. FDA clearance or approval is not currently required for clinical use. The results are not intended to be used as the sole means for clinical diagnosis or patient management decisions. Body Fluid Peritoneal cavity structure / Unknown 05/09/2024 10:33 AM EST 05/09/2024 11:10 AM EST Comment:ascites Mike Low MD LAB BODY FLUIDS AND STOO LS ORDERABLES Final Result Performing Organization Address [facility] Co de Phone Number [facility] CLINICAL PATHOLOGY LABORATORY [address] [place] [address], * Glucose, Body Fluid (05/09/2024 10:33 AM EST) Glucose, Fluid 90 mg/dL 05/09/2024 12:01 PM EST [facility] PATH[facility] Comment: No reference range available. This test was developed and its performance characteristics determined by [facility] Clinical [facility]. [facility] has not approved or cleared this test. FDA clearance or approval is not currently required for clinical use. The results are not intended to be used as the sole means for clinical diagnosis or patient management decisions. Body Fluid Peritoneal cavity structure / Unknown 05/09/2024 10:33 AM EST 05/09/2024 11:10 AM EST Comment:ascites Mike Low MD LAB BODY FLUIDS AND STOO LS ORDERABLES Final Result Performing Organization Address [facility] Co de Phone Number [facility] [address] [place] [address], documented in this encounter Visit Diagnoses Diagnosis Alcoholic cirrhosis of liver with ascites (CMS/HCC) (HCC) Encounter for removal of biliary stent documented in this encounter Administered Medications Inactive Administered Medications - up to 3 most recent administrations Medication Order MAR Action Action Date Dose Rate Site lidocaine PF (XYLOCAINE) 1% (10 mg/mL) injection As needed, Starting on Sun05/09/24 at 1048, Until Sun05/09/24 at 1048, Intra-op Given 05/09/2024 10:48 AM EST 10 mL Left Lower Abdomen documented in this encounter Care Teams Cosmetology Instructor Relationship Specialty Start Date End Date [facility] [address] [place] [address] [place] [address] PCP - General Internal Medicine 03/06/24 documented as of this encounter
--- OUTSIDE RECORDS SUMMARY | 2024-05-28 11:42 | XMS_ITS | Encounter Summary ---
Author Organization [facility] Address [address] [place] [address] Care Team Providers Care Vegetable I Farmworker Name Role Phone Jade Harper Primary Care Provider [phone] Encounter Details Date Type Department Care Team (Late st Contact Info) Description 05/15/2024 Telephone [facility] Interventional Radiology [address] [place] [address] Hoa Durbin RN Social History Tobacco Use Types Packs/Day Years Used Date Smoking Tobacco: Never Smokeless Tobacco: Never Alcohol Use Standard Drinks/Week Comments Not Currently 8 (1 standard drink = 0.6 oz pur e alcohol) sober since 11/2023 [facility] Utilities Answer Date Recorded In the past 12 months has [employer] gas, oil, or water [employer] threatened to shut off services in your [...] Telephone Encounter - Kimberly Caruso RN - 05/15/2024 9:28 AM EST Spoke with patient's Sana to confirm time and location of appt on 05/16 for paracentesis. documented in this encounter Plan of Treatment Upcoming Encounters Date Type Department Care Team (Latest Contact Info) Description 5 10:30 AM EST Appointment [facility] Interventional Radiology [address] [place] [address] 38888 Mike Rey i, MD [address] [place] [address] 31138 5 10:30 AM EDT Appointment [facility] Interventional Radiology [address] [place] [address] Mike Rey i, MD [address] [place] [address] 5 2:00 PM EDT Pre-Admission Testing [facility] Pre Surgical Center [address] [facility] [address] [place] [address] 5 10:00 AM EDT Appointment [facility] Interventional Radiology [address] [place] [address] Mike Rey i, MD [address] [place] [address] 5 10:30 AM EDT Appointment [facility] Interventional Radiology [address] [place] [address] Mike Rey i, MD [address] [place] [address] 5 9:00 AM EDT Pre-Admission Testing [facility] Surgical Center [address] [facility] [address] [place] [address] 5 10:30 AM EDT Appointment [facility] Interventional Radiology [address] [place] [address] 95921 Mike Rey i, MD [address] [place] [address] 64940 5 10:30 AM EDT Appointment [facility] Interventional Radiology [address] [place] [address] 026[address] Mike Rey i, MD [address] [place] [address] 34998 5 8:30 AM EDT Hospital Encounter [facility] Operating Room [address] [place] [address] Rachel [place] MD [address] [place] [address] 43101 5 8:30 AM EDT - 5 9:30 AM EDT Surgery [facility] Operating Room [address] [place] [address] 11592 Rachel [place] MD [address] [place] [address] 17329 ENDOSCOPIC RETROGRADE CHOLANGIOPANCREATOGRAPHY WITH REMOVAL OF FOREIGN BODY(S)/STENT(S)/PANCREATIC DUCT(S) WITH POSSIBLE MODERATE SEDATION [78826 (CPT??)] 5 10:30 AM EDT Appointment [facility] Interventional Radiology [address] [place] [address] 72481 Mike Rey i, MD [address] [place] [address] 38238 5 4:30 PM EDT Follow-Up [facility] Liver Transplant Services [address] [place] [address] 34317 Mike Rey i, MD [address] [place] [address] 36096 5 10:30 AM EDT Appointment [facility] Interventional Radiology [address] [place] [address] 55458 Mike Rey i, MD [address] [place] [address] 32602 5 10:30 AM EDT Appointment [facility] Interventional Radiology [address] [place] [address] 47546 Mike Rey i, MD [address] [place] [address] 88603 5 10:30 AM EDT Appointment [facility] Interventional Radiology [address] [place] [address] 10071 Mike Rey i, MD [address] [place] [address] 09567 5 10:30 AM EDT Appointment [facility] Interventional Radiology [address] [place] [address] 42470 Mike Rey i, MD [address] [place] [address] 90392 5 10:30 AM EDT Appointment [facility] Interventional Radiology [address] [place] [address] 58100 Mike Rey i, MD [address] [place] [address] 41241 5 10:30 AM EDT Appointment [facility] Interventional Radiology [address] [place] [address] 62836 Mike Rey i, MD [address] [place] [address] 53033 5 10:30 AM EDT Appointment [facility] Interventional Radiology [address] [place] [address] 76058 Mike Rey i, MD [address] [place] [address] 48742 5 10:30 AM EDT Appointment [facility] Interventional Radiology [address] [place] [address] 32865 Mike Rey i, MD [address] [place] [address] 24110 5 10:30 AM EDT Appointment [facility] Interventional Radiology [address] [place] [address] 56762 Mike Rey i, MD [address] [place] [address] 61888 5 10:30 AM EDT Appointment [facility] Interventional Radiology [address] [place] [address] Mike Rey i, MD [address] [place] [address] 5 10:30 AM EDT Appointment [facility] Interventional Radiology [address] [place] [address] Mike Rey i, MD [address] [place] [address] Scheduled Procedures Name Priority Associated Diagnoses Date/Ti me ENDOSCOPIC RETROGRADE CHOLANGIOPANCREATOGRAPHY WITH REMOVAL OF FOREIGN BODY(S)/STENT(S)/PANCREATIC DUCT(S) WITH POSSIBLE MODERATE SEDATION Encounter for removal of biliary stent 07/04/2024 8:30 AM EDT LAPAROSCOPIC CHOLECYSTECTOMY Acute cholecystitis documented as of this encounter Visit Diagnoses Not on filedocumented in this encounter Care Teams Vegetable I Farmworker Relationship Specialty Start Date End Date Jade Harper [address] [place] [address] [place] [address] PCP - General Internal Medicine 03/06/24 documented as of this encounter
--- OUTSIDE RECORDS SUMMARY | 2024-05-28 11:42 | XMS_ITS | Encounter Summary ---
Author Organization [facility] Address [address] [place] [address] Care Team Providers Care Audit Tech Name Role Phone Jade Harper Primary Care Provider [phone] Encounter Details Date Type Department Care Team (Late st Contact Info) Description 05/13/2024 Telephone [facility] Transplant Department [address] [place], [place] [id number] Tiffany Correa Social History Tobacco Use Types Packs/Day Years Used Date Smoking Tobacco: Never Smokeless Tobacco: Never Alcohol Use Standard Drinks/Week Comments Not Currently 8 (1 standard drink = 0.6 oz pur e alcohol) sober since 11/2023 [facility] Utilities Answer Date Recorded In the past 12 months has e [employer], gas, oil, or water [email or web address] threatened to shut off services in your [...] AM EST Appointment [facility] Interventional Radiology [address] [place] [address] Mike Rey i, MD [address] [place] [address] 60714 5 10:30 AM EDT Appointment [facility] Interventional Radiology [address] [place] [address] 668[address] Mike Rey i, MD [address] [place] [address] 61264 5 2:00 PM EDT Pre-Admission Testing [facility] Pre Surgical Center [address] [place] [address] [address] [place] [address] 5 10:00 AM EDT Appointment [facility] Interventional Radiology [address] [place] [address] Mike Rey i, MD [address] [place] [address] 13025 5 10:30 AM EDT Appointment [facility] Interventional Radiology [address] [place] [address] 49044 Mike Rey i, MD [address] [place] [address] 63232 5 9:00 AM EDT Pre-Admission Testing [facility] Pre Surgical Center [address] [facility] [address] [place] [address] 5 10:30 AM EDT Appointment [facility] Interventional Radiology [address] [place] [address] 03100 Mike Rey i, MD [address] [place] [address] 5 10:30 AM EDT Appointment [facility] Interventional Radiology [address] [place] [address] 61909 Mike Rey i, MD [address] [place] [address] 5 8:30 AM EDT Hospital Encounter [facility] Operating Room [address] [place] [address] Rachel [place] MD [address] [place] [address] 5 8:30 AM EDT - 5 9:30 AM EDT Surgery [facility] Operating Room [address] [place] [address] Rachel [place] MD [address] [place] [address] ENDOSCOPIC RETROGRADE CHOLANGIOPANCREATOGRAPHY WITH REMOVAL OF FOREIGN BODY(S)/STENT(S)/PANCREATIC DUCT(S) WITH POSSIBLE MODERATE SEDATION [[id number] (CPT??)] 5 10:30 AM EDT Appointment [facility] Interventional Radiology [address] [place] [address] 11259 Mike Rey i, MD [address] [place] [address] 23887 5 4:30 PM EDT Follow-Up [facility] Liver Transplant Services [address] [place] [address] 19[address] Mike Rey i, MD [address] [place] [address] 18421 5 10:30 AM EDT Appointment [facility] Interventional Radiology [address] [place] [address] 15154 Mike Rey i, MD [address] [place] [address] 18922 5 10:30 AM EDT Appointment [facility] Interventional Radiology [address] [place] [address] 76753 Mike Rey i, MD [address] [place] [address] 84330 5 10:30 AM EDT Appointment [facility] Interventional Radiology [address] [place] [address] 46046 Mike Rey i, MD [address] [place] [address] 21788 5 10:30 AM EDT Appointment [facility] Interventional Radiology [address] [place] [address] 63187 Mike Rey i, MD [address] [place] [address] 06391 5 10:30 AM EDT Appointment [facility] Interventional Radiology [address] [place] [address] 58328 Mike Rey i, MD [address] [place] [address] 71897 5 10:30 AM EDT Appointment [facility] Interventional Radiology [address] [place] [address] 39044 Mike Rey i, MD [address] [place] [address] 01073 5 10:30 AM EDT Appointment [facility] Interventional Radiology [address] [place] [address] 55711 Mike Rey i, MD [address] [place] [address] 15487 5 10:30 AM EDT Appointment [facility] Interventional Radiology [address] [place] [address] 42958 Mike Rey i, MD [address] [place] [address] 97645 5 10:30 AM EDT Appointment [facility] Interventional Radiology [address] [place] [address] 25683 Mike Rey i, MD [address] [place] [address] 27357 5 10:30 AM EDT Appointment [facility] Interventional Radiology [address] [place] [address] 53289 Mike Rey i, MD [address] [place] [address] 82809 5 10:30 AM EDT Appointment [facility] Interventional Radiology [address] [place] [address] Mike Rey i, MD [address] [place] [address] [phone] Scheduled Procedures Name Priority Associated Diagnoses Date/Ti me ENDOSCOPIC RETROGRADE CHOLANGIOPANCREATOGRAPHY WITH REMOVAL OF FOREIGN BODY(S)/STENT(S)/PANCREATIC DUCT(S) WITH POSSIBLE MODERATE SEDATION Encounter for removal of biliary stent 07/04/2024 8:30 AM EDT LAPAROSCOPIC CHOLECYSTECTOMY Acute cholecystitis documented as of this encounter Visit Diagnoses Not on filedocumented in this encounter Care Teams Audit Tech Relationship Specialty Start Date End Date PoJade [address] [place] [address] [place] [address] PCP - General Internal Medicine 03/06/24 documented as of this encounter
--- OUTSIDE RECORDS SUMMARY | 2024-05-28 11:42 | XMS_ITS | Encounter Summary ---
Author Organization [facility] Address [address] [place] [address] Care Team Providers Care Molding Process Technician Name Role Phone Jade Harper Primary Care Provider [phone] Reason for Visit * Reason Onset Date Comments Med Refill 05/15/2024 Encounter Details Date Type Department Care Team (Late st Contact Info) Description 05/15/2024 Refill [facility] Transplant Department [address] [place] [address] Isabella Perry Social History Tobacco Use Types Packs/Day Years Used Date Smoking Tobacco: Never Smokeless Tobacco: Never Alcohol Use Standard Drinks/Week Comments Not Currently 8 (1 standard drink = 0.6 oz pur e alcohol) sober since 11/2023 [facility] Utilities Answer Date Recorded In the past 12 months has e [employer], gas, oil, or water [employer] threatened to shut off services in your [...] Info) Description 5 10:30 AM EST Appointment [facility] Interventional Radiology [address] [place] [address]1735 Mike Rey i, MD [address] [place] [address] 65530 5 10:30 AM EDT Appointment [facility] Interventional Radiology [address] [place] [address] 32655 Mike Rey i, MD [address] [place] [address] 22125 5 2:00 PM EDT Pre-Admission Testing [facility] Pre Surgical Center [address] [place] [address] 45224 5 10:00 AM EDT Appointment [facility] Interventional Radiology [address] [place] [address] Mike Rey i, MD [address] [place] [address] 13009 5 10:30 AM EDT Appointment [facility] Interventional Radiology [address] [place] [address] 25942 Mike Rey i, MD [address] [place] [address] 5 9:00 AM EDT Pre-Admission Testing [facility] Pre Surgical Center [address] [facility] 3rd [place] [address] 5 10:30 AM EDT Appointment [facility] Interventional Radiology [address] [place] [address] Mike Rey i, MD [address] [place] [address] 5 10:30 AM EDT Appointment [facility] Interventional Radiology [address] [place] [address] 95334 Mike Rey i, MD [address] [place] [address] 5 8:30 AM EDT Hospital Encounter [facility] Operating Room [address] [place] [address] Rachel [place] MD [address] [place] [address] 5 8:30 AM EDT - 5 9:30 AM EDT Surgery [facility] Operating Room [address] [place] [address] Rachel [place] MD [address] [place] [address] 07326 ENDOSCOPIC RETROGRADE CHOLANGIOPANCREATOGRAPHY WITH REMOVAL OF FOREIGN BODY(S)/STENT(S)/PANCREATIC DUCT(S) WITH POSSIBLE MODERATE SEDATION [75280 (CPT??)] 5 10:30 AM EDT Appointment [facility] Interventional Radiology [address] [place] [address] 58370 Mike Rey i, MD [address] [place] [address] 54761 5 4:30 PM EDT Follow-Up [facility] Liver Transplant Services [address] [place] [address] 17738 Mike Rey i, MD [address] [place] [address] 04133 5 10:30 AM EDT Appointment [facility] Interventional Radiology [address] [place] [address] 82299 Mike Rey i, MD [address] [place] [address] 13280 5 10:30 AM EDT Appointment [facility] Interventional Radiology [address] [place] [address] 24319 Mike Rey i, MD [address] [place] [address] 00914 5 10:30 AM EDT Appointment [facility] Interventional Radiology [address] [place] [address] 41818 Mike Rey i, MD [address] [place] [address] 37691 5 10:30 AM EDT Appointment [facility] Interventional Radiology [address] [place] [address] 02472 Mike Rey i, MD [address] [place] [address] 27716 5 10:30 AM EDT Appointment [facility] Interventional Radiology [address] [place] [address] 20575 Mike Rey i, MD [address] [place] [address] 96330 5 10:30 AM EDT Appointment [facility] Interventional Radiology [address] [place] [address] 82630 Mike Rey i, MD [address] [place] [address] 16567 5 10:30 AM EDT Appointment [facility] Interventional Radiology [address] [place] [address] 85893 Mike Rey i, MD [address] [place] [address] 59691 5 10:30 AM EDT Appointment [facility] Interventional Radiology [address] [place] [address] 88857 Mike Rey i, MD [address] [place] [address] 45312 5 10:30 AM EDT Appointment [facility] Interventional Radiology [address] [place] [address] 32535 Mike Rey i, MD [address] [place] [address] 59742 5 10:30 AM EDT Appointment [facility] Interventional Radiology [address] [place] [address] 95425 Mike Rey i, MD [address] [place] [address] 40756 10:30 AM EDT Appointment [facility] Interventional Radiology [address] [place] [address] Mike Rey i, MD [address] [place] [address] Scheduled Procedures Name Priority Associated Diagnoses Date/Ti wv ENDOSCOPIC RETROGRADE CHOLANGIOPANCREATOGRAPHY WITH REMOVAL OF FOREIGN BODY(S)/STENT(S)/PANCREATIC DUCT(S) WITH POSSIBLE MODERATE SEDATION Encounter for removal of biliary stent 07/04/2024 8:30 AM EDT LAPAROSCOPIC CHOLECYSTECTOMY Acute cholecystitis documented as of this encounter Visit Diagnoses Not on filedocumented in this encounter Care Teams Molding Process Technician Relationship Specialty Start Date End Date Jade Harper [address] [place] [address] [place] [address] PCP - General Internal Medicine 03/06/24 documented as of this encounter
== END 2024-05-28 11:07 | disposition home or self-care (01) ==
PROVIDERS: PCP Internal Medicine; Visit Provider Internal Medicine
DX: E11.65 Type 2 diabetes mellitus with hyperglycemia (principal); K70.31 Alcoholic cirrhosis of liver with ascites; K70.30 Alcoholic cirrhosis of liver without ascites; K80.00 Calculus of gallbladder with acute cholecystitis without obstruction; Z86.19 Personal history of other infectious and parasitic diseases; Z98.890 Other specified postprocedural states; I10 Essential (primary) hypertension; E78.00 Pure hypercholesterolemia, unspecified; Z23 Encounter for immunization

== ENCOUNTER → 2024-05-28 09:57 | Outpatient (BNVA) | payer OTHER, SELFPAY | PROVIDERS: PCP Internal Medicine; Visit Provider Internal Medicine | DX: K80.00 Calculus of gallbladder with acute cholecystitis without obstruction (principal); K70.31 Alcoholic cirrhosis of liver with ascites; Z23 Encounter for immunization; E11.65 Type 2 diabetes mellitus with hyperglycemia; I10 Essential (primary) hypertension; E78.00 Pure hypercholesterolemia, unspecified; Z86.19 Personal history of other infectious and parasitic diseases; Z98.890 Other specified postprocedural states | CPT/HCPCS: 83036; 90471; 90656; 96127 ==

== ENCOUNTER 2024-09-08 13:32 | Outpatient (AMB) | payer BC, SELFPAY ==
[2024-09-08 13:35] VITALS: BP 110/82; PULSE 90; O2SAT 98; BMI 25.4
--- NOTE | 2024-09-08 13:35 | MHC.PC.OV ---
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 Required: No Accompanied by: Spouse Allergies No Known Allergies Allergy (Verified 09/08/24 13:36) Medication List - Last Reconciled 09/08/24 by Jade Harper MD acetaminophen 500 mg PO Q6H PRN ciprofloxacin HCl (Cipro) 500 mg PO DAILY lactulose 20 grams PO TID lisinopril 5 mg PO DAILY midodrine 15 mg PO Q8H ondansetron 4 mg PO Q8H PRN polyethylene glycol 3350 4 grams PO DAILY PRN [prosthetic shoe As directed] rifaximin (Xifaxan) 550 mg PO BID [right great toe prosthetic As directed] simvastatin 5 mg PO BEDTIME sodium chloride 0.9% 1 irrig irrigation Q3-4H PRN trazodone 50 mg PO BEDTIME PRN Tobacco use date assessed: 09/08/24 Fall risk assessment: 1 Fall in past year Last assessed Fall Risk: 09/08/24 Dental Screening Dental Screen Date: 09/08/24 Did you have a dental visit in the last 12 months?: No Did you have a dental problem in the last 6 months where you did not have access to dental care?: No Was dental information given to patient?: No [facility] Medical History (Updated 09/08/24 @ 14:00 by Jade Harper MD) Acute cholecystitis due to biliary calculus Acute cholecystitis Gallstones Bacteremia Alcohol use Wet gangrene Acidosis, lactic Leukocytosis Type 2 diabetes mellitus with hyperglycemia Lesion of right eyelid Colon cancer screening Constipation Guaiac + stool Fatty liver Cholelithiasis Hypertension Erectile dysfunction Hypercholesterolemia Thrombocytopenia Knee osteoarthritis Obesity (BMI 30-39.9) Surgical History History of total left knee replacement History of amputation of toe (01/06/22) Hx of colonoscopy History of left knee surgery Family History Family/Other Medical history unknown Social History Household Members: Significant Other Housing: House Do you presently have visiting nurse or other home services: Yes Patient Tobacco Use Status: Never used Tobacco Tobacco use type: Cigarette e-Cigarette/Vaping Use: Never Used Second Hand Smoke Exposure: No service: No Current occupational status: employed Current occupational exposures/hazards: No Cognitive needs: No Hearing needs: No Vision needs: Yes Questionnaire PHQ-9 Over the last 2 weeks, how often have you been bothered by any of the following problems? 1. Little interest or pleasure in doing things: several days 2. Feeling down, depressed, or hopeless: several days 3. Trouble falling or staying asleep, or sleeping too much: several days 4. Feeling tired or having little energy: several days 5. Poor appetite or overeating: several days 6. Feeling bad about yourself - or that you are a failure or have let yourself or your family down: not at all 7. Trouble concentrating on things, such as reading the newspaper or watching television: not at all 8. Moving or speaking so slowly that other people could have noticed. Or the opposite - being so fidgety or restless that you have been moving around a lot more than usual: not at all 9. Thoughts that you would be better off or of hurting yourself in some way: not at all Total score: 5 Source: Developed by Drs. Redd Sutton, Malathi Covarrubias, Lauri Berg and colleagues, with an educational phill from [employer]. Thrive Questionnaire Date Thrive assessed: 09/08/24 I am a: Patient What is your living situation today?: I have a steady place to live Within the past 12 months, did the food you bought not last and you didn't have the money to get more?: Never true Within the past 12 months, did you worry whether your food would run out before you got money to buy more?: Never true Do you have trouble paying for medicines?: No Do you have trouble getting transportation to medical appointments?: No Do you have trouble paying your heating and electricity bill?: No Do you have trouble taking care of your child, family member or friend?: No Do you have trouble with day-to-day activities such as bathing, preparing meals, shopping, managing finances, etc.?: No Are you currently unemployed and looking for a job?: I choose not to answer this question Are you interested in more education?: No Please select the resources that you would like help with: None Currently or been in a relationship where the following occur: No concerns reported THRIVE Score: 0 AUDIT C Alcohol Use Questionnaire (AUDIT-C) 1. How often do you have a drink containing alcohol?: Never 3. How often do you have six or more drinks on one occasion?: Never Total Score: 0 CECILY-7 AMB Questionnaire CECILY-7 Date CECILY - 7 assessed: 09/08/24 Feeling nervous, anxious, or on edge: 1 = Several days Not being able to stop or control worryin = Several days Worrying too much about different things: 1 = Several days Trouble relaxin = Several days Being so restless that it is hard to sit still: 0 = Not at all Becoming easily annoyed or irritable: 1 = Several days Feeling afraid as if something awful might happen: 0 = Not at all Total CECILY-7 score (0-4 normal; 5-9 mild; 10-14 moderate; 15-21 severe): 5 Source: Developed by Drs. Redd Sutton, Malathi Covarrubias, Lauri Berg and colleagues, with an educational phill from [employer]. Physical exam (Primary Care) Vital Signs: Last Vital Signs Pulse 90 09/08/24 13:35 BP 110/82 09/08/24 13:35 Pulse Ox 98 09/08/24 13:35 Oxygen Delivery Method Room Air 09/08/24 13:35 BMI result Body Mass Index 25.4 Tobacco/Smoking Status: Tobacco use Status Tobacco use date assessed 09/08/24 09/08/24 13:45 Patient Tobacco Use Status Never used Tobacco 09/08/24 13:45 Tobacco use type Cigarette 09/08/24 13:45 e-Cigarette/Vaping Use Never Used 09/08/24 13:45 PHQ-9: PHQ-9 Score PHQ-9: Total score 5 09/08/24 13:51 Thrive Assessment: Date of Thrive Assessment Date Thrive assessed 09/08/24 09/08/24 13:45 Currently or been in a relationship where the following occur: No concerns reported Const General: alert; No acute distress Eyes Conjunctivae: conjunctivae normal Resp Auscultation: clear to auscultation bilaterally Cardio Rate: regular rate Rhythm: regular rhythm GI Inspection: Yes normal to inspection Extrem General: Yes normal to inspection and No edema Coding Level of Care Code Est Pt Level 4 (63149) Complex EM visit Add On G2211 Diagnoses History of cholecystectomy Z90.49 Alcoholic cirrhosis of liver K70.30 Type 2 diabetes mellitus with hyperglycemia E11.65 Hypercholesterolemia E78.00 Primary hypertension I10 Hypertension type: primary hypertension Assessment & Plan Assessment & Plan (1) History of cholecystectomy: Comment: July 2024 Dr. Erwin Code(s): Z90.49 - Acquired absence of other specified parts of digestive tract Category: Surgical Plan: Advised low-fat diet (2) Alcoholic cirrhosis of liver: Comment: TIPS May 2024 Code(s): K70.30 - Alcoholic cirrhosis of liver without ascites Category: Medical Plan: Patient's shows should abstain from alcohol. jeff, (3) Type 2 diabetes mellitus with hyperglycemia: Comment: Dr. Rcihardson Code(s): E11.65 - Type 2 diabetes mellitus with hyperglycemia Category: Medical Plan: Decrease the amount of carbohydrate intake, pasta, bread, rice and potatoes are all sugar and that is aside from all the sweet stuff, remember that fruits are good but they are Sweet also. Hemoglobin A1c goal presently on diet control (4) Hypercholesterolemia: Comment: ? borderline no meds Code(s): E78.00 - Pure hypercholesterolemia, unspecified Category: Medical Plan: Avoid fried foods, chicken skin, eggs, butter margarine, pastries and meat. Be it pork or beef they have a lot of cholesterol LDL goal of less than 100 and triglyceride of less than 150 patient do need blood work (5) Hypertension: Code(s): I10 - Essential (primary) hypertension Category: Medical Qualifiers: Hypertension type: primary hypertension Qualified Code(s): I10 - Essential (primary) hypertension Plan: Continue with blood pressure medication. Decrease salt intake and exercise on lisinopril 5 mg once a day Plan History of Present Illness The patient is a 63-year-old male presenting with management of chronic conditions including diabetes mellitus, hypercholesterolemia, hypertension, and alcoholic liver cirrhosis. The patient has a history of diabetes mellitus, which is currently managed with diet control, and his last hemoglobin A1c was 4.6 in May, indicating good control. He also has hypercholesterolemia, with a last cholesterol test in June 2023 showing an LDL goal of less than 100 mg/dL and triglycerides less than 150 mg/dL. The patient has a history of hypertension, currently managed with lisinopril 5 mg once daily. He also has peripheral vascular disease, which has led to the total amputation of the right foot's big toe and second toe. The patient has a significant history of alcoholic liver cirrhosis, with complications including bacterial peritonitis and a biliary test insertion. He underwent a cholecystectomy in July 2024, which was complicated by adhesions due to previous infections, requiring a prolonged laparoscopic procedure. The patient was last seen in May and has a history of anemia with a hemoglobin level of 11.9 g/dL and thrombocytopenia with a platelet count of 128,000/?L noted in January 2024. His last colonoscopy in 2021 revealed a tubular adenoma. Health Maintenance - Advised low-fat diet to manage hypercholesterolemia and post-cholecystectomy dietary needs - Abstinence from alcohol recommended due to alcoholic liver cirrhosis - Regular monitoring of blood work, including liver function tests and cholesterol levels - Follow-up with liver specialist scheduled for November, with a liver scan planned for January Social History - Substance Use: Patient has abstained from alcohol for eight months. - Nutrition: Patient follows a diet high in protein and low in fat, including protein shakes, vegetables, and occasional fish and poultry. - Exercise: Patient is currently limited in physical activity due to abdominal pain but has a history of being active. Review of Systems - Gastrointestinal: Reports constipation and abdominal pain, denies diarrhea. - Neurological: Reports difficulty sleeping at night. Physical Exam Results - Labs: Hemoglobin A1c 4.6% in May, cholesterol test in June 2023 with LDL goal <100 mg/dL, triglycerides <150 mg/dL. - Labs: Hemoglobin 11.9 g/dL, platelet count 128,000/?L in January 2024. - Colonoscopy: Tubular adenoma found in 2021. Plan The management plan for diabetes mellitus includes maintaining diet control, as the patient's hemoglobin A1c is at goal. Regular monitoring of blood glucose levels is advised to ensure continued control. For hypercholesterolemia, the patient is advised to adhere to a low-fat diet and continue monitoring cholesterol levels, aiming for an LDL goal of less than 100 mg/dL and triglycerides less than 150 mg/dL. Hypertension management includes continuing lisinopril 5 mg once daily and monitoring blood pressure regularly. The patient is advised to abstain from alcohol to manage alcoholic liver cirrhosis and to follow up with the liver specialist in November, with a liver scan planned for January to assess liver function and the effectiveness of the TIPS procedure. Regular blood work is recommended to monitor anemia and thrombocytopenia, with a focus on maintaining stable hemoglobin and platelet levels. Patient was informed and verbally consented to the use of an ambient scribe for clinic note documentation during this visit. Discussion Notes During the visit, I discussed the importance of maintaining a low-fat diet and abstaining from alcohol to manage hypercholesterolemia and alcoholic liver cirrhosis, respectively. We reviewed the patient's current medications, including lisinopril for hypertension and the need for regular blood work to monitor anemia and thrombocytopenia. I emphasized the importance of follow-up with the liver specialist and the planned liver scan in January to assess the effectiveness of the TIPS procedure. Patient Instructions - Follow a low-fat diet to help manage cholesterol levels. - Abstain from alcohol to support liver health. - Continue taking lisinopril 5 mg once daily for blood pressure control. - Schedule and attend follow-up appointments with the liver specialist in November and for a liver scan in January. - Get regular blood work to monitor anemia and thrombocytopenia.
--- OUTSIDE RECORDS SUMMARY | 2024-09-08 15:02 | XMS_ITS | Patient Health Record ---
Author Organization [facility] Address [address] [place] [address] Care Team Providers Care Rehabilitation Teacher Name Role Phone Jade Harper MD Primary Care Provider Santos Almeida Jr [phone] Allergies No Known Allergies Results Component Value Reference Range Notes Prothrombin Time INR Reviewed date:01/31/2024 09:37:29 AM Interpretation: Performing Lab:[facility], [address] [place] [phone] Notes/Report: Prothrombin Time 19.1 10.9-12.4 [employer] [...] Panel Reviewed date:01/31/2024 09:37:23 AM Interpretation: Performing Lab:[address] [id number] Notes/Report: Bilirubin Total 2.4 0.0-1.0 mg/dL Slight [...] Problem Status W/U Status Risk Notes Problem [id number] Colon cancer screening (Z12.11) Active confirmed Problem [id number] Encounter for other preprocedural examination (Z01.818) Active confirmed Encounters Encounter Location Date Provider Diagnosis [facility] [address] [place] [phone] 01/29/2024 Santos hKan Jr [facility] [address] [place] [phone] 02/26/2024 Santos Khan Jr [facility] [address] [place] [phone] 03/03/2024 Santos Khan Jr [facility] [address] [place] [phone] 03/06/2024 Santos Khan Jr [facility] [address] [place] [address] [place] [address] 03/28/2024 Santos Khan Jr [facility] [address] [place] [address] 04/22/2024 Santos Khan Jr Plan Of Treatment Future Test Test Name Order Date COLONOSCOPY 08/15/2021 Insurance Providers Payer Name Payer Address Payer Phone Subscriber Number Group Number Insured Name Patient Relationship to Insured Coverage Start Date Coverage End Date [employer] [place] [address] [address] [place] [address] [id number] DARCIE CAMACHO Self - patient is the insured Medical (General) History Medical History History ICD Code Hypertension Hyperglycemia Osteoarthritis Fatty liver Thrombocytopenia Surgical History Surgery Date(Month/Year)
== END 2024-09-08 14:18 | disposition home or self-care (01) ==
PROVIDERS: PCP Internal Medicine; Visit Provider Internal Medicine
DX: Z90.49 Acquired absence of other specified parts of digestive tract (principal); K70.30 Alcoholic cirrhosis of liver without ascites; E11.65 Type 2 diabetes mellitus with hyperglycemia; E78.00 Pure hypercholesterolemia, unspecified; I10 Essential (primary) hypertension

== ENCOUNTER → 2024-09-08 13:32 | Outpatient (BNVA) | payer BC, SELFPAY | PROVIDERS: PCP Internal Medicine; Visit Provider Internal Medicine ==

== ENCOUNTER 2025-01-02 09:41 | Outpatient (REF) | payer MEDICARE, SELFPAY ==
--- OUTSIDE RECORDS SUMMARY | 2024-01-31 10:55 | XMS_ITS ---
Author Organization [facility] Address [address] [place] [address] Care Team Providers Care All Source Collection Manager Name Role Phone Jade Harper MD Primary Care Provider Santos Almeida Jr REASON FOR VISIT ascites Encounters Encounter Location Date Provider Diagnosis [facility] [address] [place], [place] [address] [address] 01/31/2024 Santos Khan Jr Plan Of Treatment No Information Progress Notes * DARCIE CAMACHO CDOB:1960 (64 yo M)Acc No.[id number]:01/31/2024 Progress Notes Patient: DARCIE BROWN Provider: Dmitri Khan MD :1960 A ge:63 Y S ex:Male Date:01/31/2024 Address:[id number] Pcp:Jade Harper MD Subjective: * Chief Complaints: * 1 . Ascites. * Medical History: Objective: * Vitals: Assessment: Plan: * Treatment: * * The named appointment provid er may or may not be the originator of this progress note, and it is not deemed complete until electronically signed by the appointment provider. Sign off status: Pending * Provider: Dmitri Khan MD Date: 1 04/01/2023 Generated for Printi ng/Faxing/eTransmitting on: 10:22 AM EDT
--- OUTSIDE RECORDS SUMMARY | 2024-03-31 06:00 | XMS_ITS ---
Author Organization [facility] Address [address] [place] [id number] Care Team Providers Care Pelts Skinner Name Role Phone Jade Harper MD Primary Care Provider Santos Almeida Jr REASON FOR VISIT Patient presents today for ascites Encounters Encounter Location Date Provider Diagnosis [facility] [address] [place], [place] [address] [id number] 03/31/2024 Santos Khan Jr Plan Of Treatment No Information Progress Notes * DARCIE CAMACHO CDOB:1960 (64 yo M)Acc No.[id number]:03/31/2024 Progress Notes Patient: DARCIE BROWN Provider: Dmitri Khan MD :1960 A ge:63 Y S ex:Male Date:03/31/2024 Address:[facility] [id number] Pcp:Jade Harper MD Subjective: * Chief Complaints: * 1 . Patient presents today for ascites. * Medical History: Objective: * Vitals: Assessment: Plan: * Treatment: * * The named appointment provid er may or may not be the originator of this progress note, and it is not deemed complete until electronically signed by the appointment provider. Sign off status: Pending * Provider: Dmitri Khan MD Date: 0 03/31/2024 Generated for Armandoi ever/Fanannette/eTransmitting on: 1 10:22 AM EDT
[2025-01-02 10:00] LABS: MANUAL DIFF FLAG NO
--- OUTSIDE RECORDS SUMMARY | 2025-01-02 10:22 | XMS_ITS | Patient Health Record ---
Author Organization [facility] Address [address] [place] [address] Care Team Providers Care Jowl Trimmer Name Role Phone Jade Harper MD Primary Care Provider Santos Almeida Jr Allergies No Known Allergies Results Component Value Reference Range Notes Prothrombin Time INR Reviewed date:01/31/2024 09:37:29 AM Interpretation: Performing Lab:[facility], [address] [place] [phone] Notes/Report: Prothrombin Time 19.1 10.9-12.4 [employer] [...] Panel Reviewed date:01/31/2024 09:37:23 AM Interpretation: Performing Lab:[address] [phone] Notes/Report: Bilirubin Total 2.4 0.0-1.0 mg/dL Slight [...] at 5:00 p.m. the day before the procedure; Duration: 1 day 08/15/2021 Active Lisinopril 5 MG Oral; Duration: 90 Active hydroCHLOROthiazide 25 MG Oral; Duration: 90 Active Sildenafil Citrate 50 MG TAKE 1 TAB (50 MG) DAILY NEEDED FOR SEXUAL ACTIVITY Oral; Duration: 75 Active Immunizations Vaccine Route Administration Date [...] Problem Status W/U Status Risk Notes Problem Colon cancer screening (962629605) Colon cancer screening (Z12.11) Active confirmed Problem Pre-procedure evaluation check (869687174) Encounter for other preprocedural examination (Z01.818) Active confirmed Encounters Encounter Location Date Provider Diagnosis [facility] [address] [place] [phone] 01/29/2024 Santos Khan Jr [facility] [address] [place] [phone] 02/26/2024 Santos Khan Jr [facility] [address] [place] [phone] 03/03/2024 Santos Khan Jr [facility] [address] [place] [phone] 03/06/2024 Santos Khan Jr [facility] [address] [place] [address] 03/28/2024 Santos Khan Jr [facility] [address] [place] [address] 04/22/2024 Santos Khan Jr Plan Of Treatment Future Test Test Name Order Date COLONOSCOPY 08/15/2021 Insurance Providers Payer Name Payer Address Payer Phone Subscriber Number Group Number Insured Name Patient Relationship to Insured Coverage Start Date Coverage End Date [employer] [place] [address] [address] [place] [address] [id number] DARCIE CAMACHO Self - patient is the insured Medical (General) History Medical History History ICD Code Hypertension Hyperglycemia Osteoarthritis Fatty liver Thrombocytopenia Surgical History Surgery Date(Month/Year)
[2025-01-02 10:27] LABS: Hematocrit 36.2 % (42.0-52.0); Hemoglobin 12.7 g/dl (14.0-18.0); Imm Gran Abs Auto 0.01 X10*3/uL (0.00-0.03); Imm Gran Pct Auto 0.2 % (0.0-0.4); Lymphocytes Absolute Auto 1.4 X10*3/uL (1.2-4.9); Mean Corpuscular HGB Conc 35.1 g/dl (31.0-36.0); Mean Corpuscular Hemoglobin 34.0 pg (27.0-33.0); Mean Corpuscular Volume 97.1 fL (80.0-98.0); NRBC Abs Auto 0.000 X10*3/uL (0.0-0.012); NRBC Pct Auto 0.0 /100WBC (0.0-0.2); Platelet Count 123 X10*3/uL (160-400); Red Blood Count 3.73 X10*6/uL (4.60-5.80); White Blood Count 4.8 X10*3/uL (4.8-10.8)
[2025-01-02 11:15] LABS: Alanine Aminotransferase 33 U/L (0-40); Albumin Level 3.4 g/dL (3.5-5.0); Alkaline Phosphatase 268 U/L (39-117); Anion Gap 11 (12-20); Aspartate Amino Transferase 52 U/L (5-37); Blood Urea Nitrogen 12 mg/dL (9-16); Calcium 9.7 mg/dL (8.4-10.2); Carbon Dioxide 26 mmol/L (22-29); Chloride 108 mmol/L (96-108); Cholesterol 180 mg/dL (<200); Estimated Glomerular Filt Rate > 60; HDL Cholesterol 53 mg/dL (>40); Potassium 4.3 mmol/L (3.3-5.1); Sodium 141 mmol/L (135-145); Total Protein 6.4 g/dL (6.5-8.0); Triglycerides 99 mg/dL (<150)
[2025-01-02 11:38] LABS: Folate 11.8 ng/mL (> or = 4.0); Free T4 (Free Thyroxine) 0.61 ng/dL (0.71-1.85); Thyroid Stimulating Hormone 1.50 uIU/mL (0.32-4.0); Vitamin B12 703 pg/mL (200-900)
== END 2025-01-02 09:42 | disposition home or self-care (01) ==
LOC: HO.LAB 09:41
PROVIDERS: PCP Internal Medicine; Visit Provider Internal Medicine
DX: Z12.5 Encounter for screening for malignant neoplasm of prostate (principal); E11.65 Type 2 diabetes mellitus with hyperglycemia; E78.00 Pure hypercholesterolemia, unspecified
CPT/HCPCS: 36415; 80053; 80061; 82607; 82746; 83036; 84153; 84439; 84443; 85025

== ENCOUNTER 2025-01-05 13:12 | Outpatient (AMB) | payer MEDICARE, SELFPAY ==
[2025-01-05 13:17] VITALS: BP 118/70; PULSE 78; O2SAT 98; BMI 27.9
--- NOTE | 2025-01-05 13:17 | A.OFFPC_ITS ---
Vital Signs 01/05/25 13:17 Height 6 ft Weight 206 lb BMI 27.9 BP 118/70 Blood Pressure Location Lt brachial Position Sitting Pulse 78 Pulse Source Pulse Oximeter Pulse Oximetry (%) 98 Oxygen Delivery Method Room Air Intake Visit Reasons: DM Allergies No Known Allergies Allergy (Verified 01/05/25 13:18) Medication List - Last Reconciled 01/05/25 by Jade Harper MD acetaminophen 500 mg PO Q6H PRN ciprofloxacin HCl (Cipro) 500 mg PO DAILY furosemide (Lasix) 20 mg PO DAILY lactulose 45 mg in am and 30 mg qpm orally; lisinopril 5 mg PO DAILY midodrine 15 mg PO Q8H midodrine 5 mg PO TID [prosthetic shoe As directed] rifaximin (Xifaxan) 550 mg PO BID [right great toe prosthetic As directed] simvastatin 5 mg PO BEDTIME sodium chloride 0.9% 1 irrig irrigation Q3-4H PRN spironolactone 50 mg PO DAILY trazodone 50 mg PO BEDTIME PRN Tobacco use date assessed: 09/08/24 Fall risk assessment: No Falls in past year Last assessed Fall Risk: 01/05/25 Dental Screening Dental Screen Date: 09/08/24 [facility] Medical History (Updated 01/05/25 @ 13:57 by Jade Harper MD) Acute cholecystitis due to biliary calculus Acute cholecystitis Gallstones Bacteremia Alcohol use Wet gangrene Acidosis, lactic Leukocytosis Type 2 diabetes mellitus with hyperglycemia Lesion of right eyelid Colon cancer screening Constipation Guaiac + stool Fatty liver Cholelithiasis Hypertension Erectile dysfunction Hypercholesterolemia Thrombocytopenia Knee osteoarthritis Obesity (BMI 30-39.9) Surgical History (Updated 01/05/25 @ 13:36 by Jade Harper MD) History of total left knee replacement History of amputation of toe (01/06/22) Hx of colonoscopy History of left knee surgery Family History Family/Other Medical history unknown Social History Household Members: Significant Other Housing: House Do you presently have visiting nurse or other home services: Yes Patient Tobacco Use Status: Never used Tobacco Tobacco use type: Cigarette e-Cigarette/Vaping Use: Never Used Second Hand Smoke Exposure: No service: No Current occupational status: employed Current occupational exposures/hazards: No Cognitive needs: No Hearing needs: No Vision needs: Yes Questionnaire Thrive Questionnaire Date Thrive assessed: 09/08/24 I am a: Patient What is your living situation today?: I have a steady place to live Within the past 12 months, did the food you bought not last and you didn't have the money to get more?: Never true Within the past 12 months, did you worry whether your food would run out before you got money to buy more?: Never true Do you have trouble paying for medicines?: No Do you have trouble getting transportation to medical appointments?: No Do you have trouble paying your heating and electricity bill?: No Do you have trouble taking care of your child, family member or friend?: No Do you have trouble with day-to-day activities such as bathing, preparing meals, shopping, managing finances, etc.?: No Are you currently unemployed and looking for a job?: I choose not to answer this question Are you interested in more education?: No Please select the resources that you would like help with: None Currently or been in a relationship where the following occur: No concerns reported THRIVE Score: 0 CECILY-7 AMB Questionnaire CECILY-7 Date CECILY - 7 assessed: 09/08/24 Source: Developed by Drs. Redd Sutton, Malathi Covarrubias, Lauri Berg and colleagues, with an educational phill from [employer]. Physical exam (Primary Care) Vital Signs: Last Vital Signs Pulse 78 01/05/25 13:17 BP 118/70 01/05/25 13:17 Pulse Ox 98 01/05/25 13:17 Oxygen Delivery Method Room Air 01/05/25 13:17 BMI result Body Mass Index 27.9 Tobacco/Smoking Status: Tobacco use Status Tobacco use date assessed 09/08/24 01/05/25 13:22 Patient Tobacco Use Status Never used Tobacco 01/05/25 13:22 Tobacco use type Cigarette 01/05/25 13:22 e-Cigarette/Vaping Use Never Used 01/05/25 13:22 Thrive Assessment: Date of Thrive Assessment Date Thrive assessed 09/08/24 01/05/25 13:22 Currently or been in a relationship where the following occur: No concerns reported Const General: alert; No acute distress Eyes Conjunctivae: conjunctivae normal Resp Auscultation: clear to auscultation bilaterally Cardio Rate: regular rate Rhythm: regular rhythm GI Inspection: Yes normal to inspection Extrem General: Yes normal to inspection and No edema Office Procedures Flu Questionnaire Does the patient have a severe egg allergy?: No Does the patient have severe life threatening allergies?: No Does the patient have a fever or illness today?: No Has the patient ever had Guillain-Cold Spring Syndrome?: No Has the patient ever had any past reaction to a flu shot?: No Immunizations Fluarix [id number] (PF) 45 mcg (15 mcg x 3)/0.5 mL IM syringe Performing Provider: Jade Harper MD [facility] Administered by: Paola Sweeney CMA on 01/05/25 14:05 Dose Route Admin Location Dispensed Lot Number Expiration Date NDC Commercial Credit Reviewer 0.5 mL IM Left Deltoid 0.5 mL [id number] 09/22/25 [id number] [employer] VIS Given Date VIS Provided VIS Publication Date 01/05/25 Single Vaccine 24 Eligibility Eligibility Date Funding Source Not [facility] Eligible 01/05/25 Private Coding Level of Care Code Est Pt Level 4 (71187) Complex EM visit Add On G2211 Diagnoses Type 2 diabetes mellitus with hyperglycemia E11.65 Primary hypertension I10 Hypertension type: primary hypertension Hypercholesterolemia E78.00 Calculus of gallbladder with biliary obstruction but without cholecystitis K80.21 Biliary obstruction: with biliary obstruction Cholecystitis presence: without cholecystitis Cholelithiasis location: gallbladder Alcoholic cirrhosis of liver K70.30 H/O spontaneous bacterial peritonitis Z86.19 Amputation of toe of right foot S98.131A History of total left knee replacement Z96.652 Sebaceous cyst L72.3 Assessment & Plan Assessment & Plan (1) Type 2 diabetes mellitus with hyperglycemia: Comment: Dr. Richardson Code(s): E11.65 - Type 2 diabetes mellitus with hyperglycemia Category: Medical Plan: Decrease the amount of carbohydrate intake, pasta, bread, rice and potatoes are all sugar and that is aside from all the sweet stuff, remember that fruits are good but they are Sweet also. Diet controlled (2) Hypertension: Code(s): I10 - Essential (primary) hypertension Category: Medical Qualifiers: Hypertension type: primary hypertension Qualified Code(s): I10 - Essential (primary) hypertension Plan: Continue with blood pressure medication. Decrease salt intake and exercise lisinopril 5 mg once a day (3) Hypercholesterolemia: Comment: ? borderline no meds Code(s): E78.00 - Pure hypercholesterolemia, unspecified Category: Medical Plan: Avoid fried foods, chicken skin, eggs, butter margarine, pastries and meat. Be it pork or beef they have a lot of cholesterol on simvastatin 5 mg once a day with the last blood work in December (4) Cholelithiasis: Comment: December 2018, cholecystectomy July 2024 Code(s): K80.20 - Calculus of gallbladder without cholecystitis without obstruction Category: Medical Qualifiers: Biliary obstruction: with biliary obstruction Cholecystitis presence: without cholecystitis Cholelithiasis location: gallbladder Qualified Code(s): K80.21 - Calculus of gallbladder without cholecystitis with obstruction Plan: Status post cholecystectomy (5) Alcoholic cirrhosis of liver: Comment: TIPS May 2024 Code(s): K70.30 - Alcoholic cirrhosis of liver without ascites Category: Medical Plan: Patient is following up with Gastroenterology and awaiting liver transplant (6) H/O spontaneous bacterial peritonitis: Comment: March 2024 Code(s): Z86.19 - Personal history of other infectious and parasitic diseases Category: Medical Plan: Patient was seen in the hospital on antibiotics given (7) Amputation of toe of right foot: Comment: Amputation of big toe and 2nd toe Dr. Green 01/06/2022 Code(s): S98.131A - Complete traumatic amputation of one right lesser toe, initial encounter Category: Medical Plan: Continue to follow up with Podiatry (8) History of total left knee replacement: Comment: 12/19/23 Code(s): Z96.652 - Presence of left artificial knee joint Category: Surgical (9) Sebaceous cyst: Comment: infraorbital, left Code(s): L72.3 - Sebaceous cyst Category: Medical Plan History of Present Illness The patient is a 64-year-old male presenting for follow-up of multiple medical conditions including diabetes mellitus, hypercholesterolemia, and peripheral vascular disease. The patient has a history of diabetes mellitus, which is currently diet- controlled. He has been managing his blood sugar levels effectively, with a recent A1c within normal range. The patient also has hypercholesterolemia, with an LDL level of 108 mg/dL, which is above the target for patients with diabetes. He is currently on simvastatin 5 mg daily to manage his cholesterol levels. The patient has a history of peripheral vascular disease, which led to the amputation of the first and second toes of his right foot in December 2021. He is also status post TIPS procedure in May 2024 due to complications from liver disease. The patient underwent a cholecystectomy in July 2024 due to calculus cholecystitis. He has a history of umbilical hernia repair and left total knee replacement. Recent lab work from January 02 shows anemia with hemoglobin at 12.7 g/dL and hematocrit at 36.2%, along with thrombocytopenia. Liver function tests were mildly elevated, and the patient is on a liver transplant waiting list. The patient reports an eye cyst that has been present for three months, with no significant improvement despite the use of cortisone cream. Health Maintenance - Vaccinations: Flu shot recommended, shingles and pneumonia vaccinations up to date - Screening: Last colonoscopy in 2021 Social History - Alcohol: Denies alcohol consumption for the past year - Diet: Consumes sweets and ice cream regularly Review of Systems - Cardiovascular: Denies chest pain or palpitations - Gastrointestinal: Reports stable blood sugar levels, denies recent alcohol consumption - Musculoskeletal: Reports instability in the left knee, uses a brace for support - Ophthalmologic: Reports an eye cyst present for three months Physical Exam Results - Labs: Anemia with hemoglobin 12.7 g/dL, hematocrit 36.2%; thrombocytopenia; normal electrolytes and renal function; elevated liver function tests; LDL cholesterol 108 mg/dL Plan Patient was informed and verbally consented to the use of an ambient scribe for clinic note documentation during this visit. 1. Diabetes Mellitus The patient's diabetes mellitus is currently diet-controlled, with a normal A1c level. Continued monitoring of blood glucose levels and adherence to dietary recommendations are advised. 2. Hypercholesterolemia The patient is on simvastatin 5 mg daily to manage hypercholesterolemia, with an LDL level of 108 mg/dL. Consideration for increasing the statin dosage may be warranted to achieve target LDL levels. 3. Peripheral Vascular Disease The patient has a history of peripheral vascular disease, which resulted in the amputation of the first and second toes of the right foot. Continued follow-up with podiatry and solution director is recommended. 4. Eye Cyst The patient reports an eye cyst that has persisted for three months without improvement. Referral to a surgeon for evaluation and potential excision is planned. Discussion Notes During the visit, we discussed the management of the patient's diabetes mellitus, emphasizing the importance of diet control and regular monitoring of blood glucose levels. We also reviewed the patient's hypercholesterolemia management, considering the potential need to adjust the simvastatin dosage to achieve optimal LDL levels. The patient was informed about the need for ongoing follow-up with podiatry and solution director for peripheral vascular disease. We discussed the eye cyst, and I recommended a surgical consultation for further evaluation and possible excision. Patient Instructions - Continue to monitor blood glucose levels and adhere to dietary recommendations for diabetes management. - Take simvastatin 5 mg daily as prescribed and discuss any changes in cholesterol management with your healthcare provider. - Follow up with podiatry and solution director as scheduled. - Schedule a consultation with a surgeon for evaluation of the eye cyst. Orders: Orders Comprehensive Met. Panel 3 Months K70.30 - Alcoholic cirrhosis of liver without ascites Complete Blood Count Auto Diff 3 Months K70.30 - Alcoholic cirrhosis of liver without ascites Magnesium 3 Months K70.30 - Alcoholic cirrhosis of liver without ascites Reticulocyte Count 3 Months K70.30 - Alcoholic cirrhosis of liver without ascites IRON PROFILE 3 Months K70.30 - Alcoholic cirrhosis of liver without ascites Ferritin 3 Months K70.30 - Alcoholic cirrhosis of liver without ascites Influenza [id number] Immunization Today Z23 - Encounter for immunization Referrals 2 General Surgery Referral L72.3 - Sebaceous cyst Medications: New amoxicillin-pot clavulanate 500-125 mg 1 tab PO TID 21 tabs 0RF L72.3 - Sebaceous cyst Discontinued simvastatin Discontinued Reason: Patient Completed Course 5 mg PO BEDTIME 90 tabs 1RF E78.00 - Pure hypercholesterolemia, unspecified
--- OUTSIDE RECORDS SUMMARY | 2025-01-05 13:17 | XMS_ITS | Encounter Summary ---
Author Organization [facility] Address [address] [place] [address] Care Team Providers Care News Camera Person Name Role Phone Jade Harper Primary Care Provider [phone] Encounter Details Date Type Department Care Team (Late st Contact Info) Description 04/18/2024 Orders Only [facility] Interventional Radiology [address] [place], [place] [id number] Malathi Brambila MD [address] [place] [address] Social History Tobacco Use Types Packs/Day Years Used Date Smoking Tobacco: Never Smokeless Tobacco: Never Alcohol Use Standard Drinks/Week Comments Not Currently 8 (1 standard drink = 0.6 oz pur e alcohol) sober since 11/2023 [facility] Utilities Answer Date Recorded In [...] Upcoming Encounters Date Type Department Care Team (Late st Contact Info) Description 03/20/2025 9:45 AM EST Appointment [facility] Ultrasound [address] [place] [address] 04/28/2025 3:30 PM EST Follow-Up [facility] [address] [place] [address] Mike Low MD [address] [place] [address] documented as of this encounter Visit Diagnoses Not on filedocumented in this encounter Care Teams News Camera Person Relationship Specialty Start Date End Date Jade Harper [address] [place] [address] [place] [address] PCP - General Internal Medicine 03/06/24 documented as of this encounter
--- OUTSIDE RECORDS SUMMARY | 2025-01-05 13:17 | XMS_ITS ---
Author Organization [facility] Address [address] [place] [address] Care Team Providers Care Hot Knife Cutter Name Role Phone Jade Harper Primary Care Provider [phone] Transplant Episode Liver Candidate [facility] ([place], [place]) - [facility] waitlisted on 05/02/2024 Marked as Inactive on 05/29/2024 Reason: Temporarily too Well Liver CoordinatorLorie Mahoney RN Phone: N/A Fax: N/A Email: N/A Scores Score Value Updated Expires Exceptions/[place] sons CPRA Not available UNOS MELD 6 MELD (Calc) 14 12/19/2024 [place] Organ Diagnosis Organ Primary Contributory Liver Cirrhosis: Metabolic Dysfunction and Alcohol-Related/Associated Liver Disease (MetALD) Care Team Name Role Phone Fax Email Lorie Mahoney RN Liver Coordinator N/A N/A N/A Santos Khan Referring Physician [phone] N/A Ward Pina Referring Physician [phone] N/A Mike Low MD Manager Adult [phone] [email or web address] Pre-Transplant Referred: 03/06/2024 Evaluation began: 03/18/2024 Committee: 05/01/2024 Center waitlisted: 05/02/2024 Appointments (12/06/2024 - 02/05/2025) When With Visit Type Description 12/09/2024 Transplant - Tong Low Follow Up Canceled (Provider - Sooner Appt Granted) 12/11/2024 Transplant - Marcellser-Charles, N Follow Up Canceled (Provider - Sooner Appt Granted) 12/19/2024 Transplant - Tong Low Follow Up S/P umbilical hernia repair, follow-up exam (Primary Dx); Alcoholic cirrhosis of liver with ascites (HCC); S/P laparoscopic cholecystectomy; SBP (spontaneous bacterial peritonitis) (HCC); Shortness of breath
--- OUTSIDE RECORDS SUMMARY | 2025-01-05 13:17 | XMS_ITS | Encounter Summary ---
Author Organization [facility] Address [address] [place] [address] Care Team Providers Care Gelatin Maker Utility Name Role Phone Jade Harper Primary Care Provider [phone] Encounter Details Date Type Department Care Team (Late st Contact Info) Description 04/21/2024 Orders Only [facility] Interventional Radiology [address] [place] [address] Sonia Khoury NP [address] [place] [address] Social History Tobacco Use Types Packs/Day Years Used Date Smoking Tobacco: Never Smokeless Tobacco: Never Alcohol Use Standard Drinks/Week Comments Not Currently 8 (1 standard drink = 0.6 oz pur e alcohol) sober since 11/2023 [facility] Utilities Answer Date Recorded In the past 12 months has [employer] electric, gas, oil, or water [employer] threatened to shut off services in your [...] Info) Description 03/20/2025 9:45 AM EST Appointment [facility] Ultrasound [address] [place] [address] 04/28/2025 3:30 PM EST Follow-Up [facility] Liver Transplant Services [address] [place] [address] Mkie Low MD [address] [place] [address] documented as of this encounter Visit Diagnoses Not on filedocumented in this encounter Care Teams Gelatin Maker Utility Relationship Specialty Start Date End Date Jade Harper [address] [place] [address] [place] [address] PCP - General Internal Medicine 03/06/24 documented as of this encounter
--- OUTSIDE RECORDS SUMMARY | 2025-01-05 13:18 | XMS_ITS | Encounter Summary ---
Author Organization [facility] Address [address] [place] [address] Care Team Providers Care Mogul Operator Name Role Phone Jade Harper Primary Care Provider [phone] Encounter Details Date Type Department Care Team (Late st Contact Info) Description 05/07/2024 Orders Only [facility] Interventional Radiology [address] [place] [address] Sarah Melgar, JULIANE [address] [place] [address] [id number] Social History Tobacco Use Types Packs/Day Years Used Date Smoking Tobacco: Never Smokeless Tobacco: Never Alcohol Use Standard Drinks/Week Comments Not Currently 8 (1 standard drink = 0.6 oz pur e alcohol) sober since 11/2023 [facility] Utilities Answer Date Recorded In the past 12 months has [employer] electric, gas, oil, or water company threatened [...] Info) Description 03/20/2025 9:45 AM EST Appointment [facility] Ultrasound [address] [place] [address] 04/28/2025 3:30 PM EST Follow-Up [facility] Liver Transplant Services [address] [place] [address] Mike Low MD [address] [place] [address] documented as of this encounter Visit Diagnoses Not on filedocumented in this encounter Care Teams Mogul Operator Relationship Specialty Start Date End Date Jade Harper [address] [place] [address] [place] [address] PCP - General Internal Medicine 03/06/24 documented as of this encounter
--- OUTSIDE RECORDS SUMMARY | 2025-01-05 13:18 | XMS_ITS | Encounter Summary ---
Author Organization [facility] Address [address] [place] [address] Care Team Providers Care Frankfurter Inspector Name Role Phone Jade Harper Primary Care Provider [phone] Encounter Details Date Type Department Care Team (Late st Contact Info) Description 07/01/2024 Orders Only [facility] Interventional Radiology [address] [place], [place] [phone] Keegan Duvall MD [address] [facility] [place] [address] Social History Tobacco Use Types Packs/Day Years Used Date Smoking Tobacco: Never Smokeless Tobacco: Never Alcohol Use Standard Drinks/Week Comments Not Currently 8 (1 standard drink = 0.6 oz pur e alcohol) sober since 11/2023 [facility] Utilities Answer Date Recorded In the [...] Info) Description 03/20/2025 9:45 AM EST Appointment [facility] Ultrasound [address] [place] [address] 04/28/2025 3:30 PM EST Follow-Up [facility] Liver Transplant Services [address] [place] [address] Mike Low MD [address] [place] [address] documented as of this encounter Visit Diagnoses Not on filedocumented in this encounter Care Teams Frankfurter Inspector Relationship Specialty Start Date End Date Jade Harper [address] [place] [address] [place] [address] PCP - General Internal Medicine 03/06/24 documented as of this encounter
--- OUTSIDE RECORDS SUMMARY | 2025-01-05 13:18 | XMS_ITS | Encounter Summary ---
Author Organization [facility] Address [address] [place] [address] Care Team Providers Care Funeral Pre Arrangement Counselor Name Role Phone Jade Harper Primary Care Provider [phone] Encounter Details Date Type Department Care Team (Late st Contact Info) Description 12/19/2024 Results Follow-Up [facility] Liver Transplant Services [address] [place], [place] [phone] Alondra Aceves RN Social History Tobacco Use Types Packs/Day Years Used Date Smoking Tobacco: Never Smokeless Tobacco: Never Alcohol Use Standard Drinks/Week Comments Not Currently 8 (1 standard drink = 0.6 oz pur e alcohol) sober since 11/2023 [facility] Utilities Answer Date Recorded In the past 12 months has [employer], gas, oil, or water [employer] threatened to shut off services in your home? No 09/16/2024 Hunger Vital Sign Answer Date Recorded Within the past 12 months, y ou worried that your food would run out before you got the money to buy more. Never true 09/17/19 25 Within the past 12 months, t he food you bought just didn't last and you didn't have money to get more. Never true 09/16/2024 Transportation Answer Date Recorded In the past 12 months, has l ack of reliable transportation kept you from medical appointments, meetings, work or from getting things needed for daily living? No 09/16/2024 Housing Answer Date Recorded Housing Risk Low 2 09/16/2024 Housing Risk Medium Not on file 09/16/2024 Housing Risk High Not on file 09/16/2024 What is your living situation today? [facility]STEADY 09/16/2024 Sex and Gender Information Value Date Recorded Sex Assigned at Male 03/18/2024 10:45 AM EST Legal Sex Male 12:07 PM EST Gender Identity Male 03/20/2024 1:52 PM EST Sexual Orientation Straight 03/20/2024 1: 52 PM EST documented as of this encounter Miscellaneous Notes * Result Encounter Note - Mike Low MD - 12/19/2024 5:21 PM EDT Thanks! Sent him a message documented in this encounter Plan of Treatment Upcoming Encounters Date Type Department Care Team (Late st Contact Info) Description 03/20/2025 9:45 AM EST Appointment [facility] Ultrasound [address] [place] [address] 04/28/2025 3:30 PM EST Follow-Up [facility] Liver Transplant Services [address] [place] [address] Mike Low MD [address] [place] [address] documented as of this encounter Visit Diagnoses Not on filedocumented in this encounter Care Teams Funeral Pre Arrangement Counselor Relationship Specialty Start Date End Date Jade Harper [address] [place] [address] [place] [address] PCP - General Internal Medicine 03/06/24 documented as of this encounter
--- OUTSIDE RECORDS SUMMARY | 2025-01-05 13:18 | XMS_ITS | Encounter Summary ---
Author Organization [facility] Address [address] [place] [address] Care Team Providers Care Maintenance And Engineering Manager Name Role Phone Jade Harper Primary Care Provider [phone] Encounter Details Date Type Department Care Team (Late st Contact Info) Description 06/18/2024 Orders Only [facility] Interventional Radiology [address] [place] [address] Sarah Melgar, JULIANE [address] [place] [address] [phone] Social History Tobacco Use Types Packs/Day Years Used Date Smoking Tobacco: Never Smokeless Tobacco: Never Alcohol Use Standard Drinks/Week Comments Not Currently 8 (1 standard drink = 0.6 oz pur e alcohol) sober since 11/2023 [facility] Utilities Answer Date Recorded In the past 12 months has [employer], gas, oil, or water company threatened [...] Info) Description 03/20/2025 9:45 AM EST Appointment [facility] Ultrasound [address] [place] [address] 04/28/2025 3:30 PM EST Follow-Up [facility] Liver Transplant Services [address] [place] [address] Mike Low MD [address] [place] [address] documented as of this encounter Visit Diagnoses Not on filedocumented in this encounter Care Teams Maintenance And Engineering Manager Relationship Specialty Start Date End Date Jade Harper [address] [place] [address] [place] [address] PCP - General Internal Medicine 03/06/24 documented as of this encounter
--- OUTSIDE RECORDS SUMMARY | 2025-01-05 13:18 | XMS_ITS | Encounter Summary ---
Author Organization [facility] Address [address] [place] [address] Care Team Providers Care Yard Pipe Grader Name Role Phone Jade Harper Primary Care Provider [phone] Encounter Details Date Type Department Care Team (Late st Contact Info) Description 04/30/2024 Orders Only [facility] Interventional Radiology [address] [place] [address] Alondra Sage NP [address] [place] [address] Social History Tobacco Use Types [...] Info) Description 03/20/2025 9:45 AM EST Appointment [facility] Ultrasound [address] [place] [address] 04/28/2025 3:30 PM EST Follow-Up [facility] Liver Transplant Services [address] [place] [address] Mike Low MD [address] [place] [address] documented as of this encounter Visit Diagnoses Not on filedocumented in this encounter Care Teams Yard Pipe Grader Relationship Specialty Start Date End Date Jade Harper [address] [place] [address] [place] [address] PCP - General Internal Medicine 03/06/24 documented as of this encounter
--- OUTSIDE RECORDS SUMMARY | 2025-01-05 13:18 | XMS_ITS | Encounter Summary ---
Author Organization [facility] Address [address] [place] [address] Care Team Providers Care Hospice Registered Nurse Name Role Phone Jade Harper Primary Care Provider [phone] Encounter Details Date Type Department Care Team (Late st Contact Info) Description 06/25/2024 Orders Only [facility] Interventional Radiology [address], [place] [id number] Jose Alberto Dimas NP [address], [place] [id number] Social History Tobacco Use Types Packs/Day Years Used Date Smoking Tobacco: Never Smokeless Tobacco: Never Alcohol Use Standard Drinks/Week Comments Not Currently 8 (1 standard drink = 0.6 oz pur e alcohol) sober since 11/2023 [facility] Utilities Answer Date Recorded In the past [...] Info) Description 03/20/2025 9:45 AM EST Appointment [facility] Ultrasound [address] [place] [id number] 04/28/2025 3:30 PM EST Follow-Up [facility] Liver Transplant Services [address] [place] [address] Mike Low MD [address] [place] [address] documented as of this encounter Visit Diagnoses Not on filedocumented in this encounter Care Teams Hospice Registered Nurse Relationship Specialty Start Date End Date Jade Harper [address] [place] [address] [place] [id number] PCP - General Internal Medicine 03/06/24 documented as of this encounter
--- OUTSIDE RECORDS SUMMARY | 2025-01-05 13:18 | XMS_ITS | Encounter Summary ---
Author Organization [facility] Address [address] [place] [address] Care Team Providers Care Occ Ther Name Role Phone Jade Harper Primary Care Provider [phone] Encounter Details Date Type Department Care Team (Late st Contact Info) Description 12/01/2024 Results Follow-Up [facility] Liver Transplant Services [address] [place], [place] [id number] Lorie Mahoney RN Social History Tobacco Use Types Packs/Day Years Used Date Smoking Tobacco: Never Smokeless Tobacco: Never Alcohol Use Standard Drinks/Week Comments Not Currently 8 (1 standard drink = 0.6 oz pur e alcohol) sober since 11/2023 [facility] Utilities Answer Date Recorded In the past 12 months has [employer] gas, oil, or water [employer] threatened to shut off services in your [...] Info) Description 03/20/2025 9:45 AM EST Appointment [facility] Ultrasound [address] [place] [id number] 04/28/2025 3:30 PM EST Follow-Up [facility] Liver Transplant Services [address] [place] [address] Mike Low MD [address] [place] [address] documented as of this encounter Visit Diagnoses Not on filedocumented in this encounter Care Teams Occ Ther Relationship Specialty Start Date End Date Jade Harper [address] [place] [address] [place] [address] PCP - General Internal Medicine 03/06/24 documented as of this encounter
--- OUTSIDE RECORDS SUMMARY | 2025-01-05 13:18 | XMS_ITS | Clinical Summary ---
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 Active midodrine (PROAMATINE) 5 mg tablet Take 3 tablets (15 mg total) by mouth every 8 hours. 810 tablet 3 05/15/19 25 026 Active rifAXIMin (XIFAXAN) 550 mg tablet Take 1 tablet (550 mg total) by mouth every 12 hours. 180 tablet 3 07/31/19 25 026 Active ciprofloxacin (CIPRO) 500 mg tablet Take 500 mg by mouth every 24 hours. Active furosemide (LASIX) 20 mg tablet Take 1 tablet (20 mg total) by mouth once a day. 30 tablet 2 09/21/19 25 Active spironolactone (ALDACTONE) 50 mg tablet Take 1 tablet (50 mg total) by mouth once a day. 30 tablet 2 09/21/19 25 Active ondansetron (ZOFRAN ODT) 4 mg disintegrating tablet DISSOLVE 1 TABLET IN THE MOUTH EVERY 8 HOURS NEEDED FOR NAUSEA OR VOMITING. 72 tablet 1 09/25/19 25 Active lactulose 10 gram/15 mL solution Take 45 mL (30 g total) by mouth 2 (two) times a day. 12/20/19 026 Active lactulose 10 gram/15 mL solution Take 30 mL (20 g total) by mouth 3 times a day. 8100 mL 3 05/15/19 25 025 Discontinued folic acid (FOLVITE) 1 mg tablet Take 1 tablet (1 mg total) by mouth once a day. 30 tablet 2 5 3:47 PM EDT 09/21/19 025 Discontinued thiamine mononitrate (VITAMIN B1) 100 mg tablet Take 1 tablet (100 mg total) by mouth once a day. 30 tablet 2 5 3:47 PM EDT 09/21/19 025 Discontinued Active Problems Problem Noted Date Diagnosed Date S/P umbilical hernia repair, follow-up exam 11/2024 Thrombocytopenia 09/16/2024 Assessment & Plan (09/18/2024 1:51 PM EDT): Chronic, likely related to cirrhosis. - Monitor CBC Assessment & Plan (09/17/2024 2:38 PM EDT): Chronic, likely related to cirrhosis. - Monitor CBC Spontaneous bacterial peritonitis 09/15/2024 Assessment & Plan (09/18/2024 1:51 PM EDT): Patient is presenting to the ER for evaluation of abdominal pain. Patient states he has had some abdominal pain since his laparoscopic cholecystectomy on 08/04/2024 with general surgery. States that his pain was initially getting better but now over the last couple of days he has been progressively getting worse. Describes it as a achy pain that is diffusely all over his abdomen. CTAP done in the ER showing cirrhosis with portal hypertension along with large ascites and enhancement along the peritoneal reflection suspicious for spontaneous bacterial peritonitis. Patient was started on ceftriaxone in the ER. Diagnostic and therapeutic paracentesis performed, 2 L removed. Ascites studies show SAAG of 1.3 and results support SBP. - Hepatology consulted, appreciate recs - Continue with Ceftriaxone 2 g IV daily for total of 5 days (09/15-09/19) - Albumin as per SBP protocol, to be completed today - Follow-up ascitic fluid culture, likely will resume p.o. Cipro outpatient Assessment & Plan (09/17/2024 2:38 PM EDT): Patient is presenting to the ER for evaluation of abdominal pain. Patient states he has had some abdominal pain since his laparoscopic cholecystectomy on 08/04/2024 with general surgery. States that his pain was initially getting better but now over the last couple of days he has been progressively getting worse. Describes it as a achy pain that is diffusely all over his abdomen. CTAP done in the ER showing cirrhosis with portal hypertension along with large ascites and enhancement along the peritoneal reflection suspicious for spontaneous bacterial peritonitis. Patient was started on ceftriaxone in the ER. Diagnostic and therapeutic paracentesis performed, 2 L removed. Ascites studies show SAAG of 1.3 and results support SBP. - Hepatology consulted, appreciate recs - Continue with Ceftriaxone 2 g IV daily for total of 5 days (09/15-09/19) - Albumin as per SBP protocol, to be completed today Assessment & Plan (09/15/2024 8:58 PM EDT): Patient is presenting to the ER for evaluation of abdominal pain. Patient states he has had some abdominal pain since his laparoscopic cholecystectomy on 08/04/2024 with general surgery. States that his pain was initially getting better but now over the last couple of days he has been progressively getting worse. Describes it as a achy pain that is diffusely all over his abdomen. CTAP done in the ER showing cirrhosis with portal hypertension along with large ascites and enhancement along the peritoneal reflection suspicious for spontaneous bacterial peritonitis. Patient was started on ceftriaxone in the ER. Bedside diagnostic paracentesis could not be done as there was no safe pocket. Liver team was also consulted who recommended starting albumin as well as ceftriaxone. - IR consultation in a.m. for diagnostic and therapeutic paracentesis - Continue with ceftriaxone 2 g IV daily - Albumin as per SBP protocol - Official GI/liver consultation in a.m. Assessment & Plan (09/15/2024 8:45 PM EDT): Patient is presenting to the ER for evaluation of abdominal pain. Patient states he has had some abdominal pain since his laparoscopic cholecystectomy on 08/04/2024 with general surgery. States that his pain was initially getting better but now over the last couple of days he has been progressively getting worse. Describes it as a achy pain that is diffusely all over his abdomen. CTAP done in the ER showing cirrhosis with portal hypertension along with large ascites and enhancement along the peritoneal reflection suspicious for spontaneous bacterial peritonitis. Patient was started on ceftriaxone in the ER. Bedside diagnostic paracentesis could not be done as there was no safe pocket. Liver team was also consulted who recommended starting albumin as well as ceftriaxone. - IR consultation in a.m. for diagnostic and therapeutic paracentesis - Continue with ceftriaxone 2 g IV daily - Albumin as per SBP protocol - Official GI/liver consultation in a.m. Orthostatic hypotension 09/15/2024 Assessment & Plan (09/18/2024 1:51 PM EDT): Patient has a history of orthostatic hypotension. On midodrine 15 mg every 8 hours scheduled. Blood pressures in the ER have been stable - Continue midodrine 15 mg q8h Assessment & Plan (09/17/2024 3:03 PM EDT): Patient has a history of orthostatic hypotension. On midodrine 15 mg every 8 hours scheduled. Blood pressures in the ER have been stable - Continue midodrine 15 mg q8h Assessment & Plan (09/15/2024 8:58 PM EDT): Patient has a history of orthostatic hypotension. On midodrine 15 mg every 8 hours scheduled. Blood pressures in the ER have been stable - Continue with home medication. Assessment & Plan (09/15/2024 8:39 PM EDT): Patient has a history of orthostatic hypotension. On midodrine 15 mg every 8 hours scheduled. Blood pressures in the ER have been stable - Continue with home medication. Status post laparoscopic cholecystectomy 025 Cirrhosis 06/11/2024 Assessment & Plan (07/03/2024 8:20 PM EDT): Home meds: lasix 40mg daily, spironolactone 100mg daily, lactulose 20g 3 times a day, rifaximin 550mg Q12, midodrine 15mg Q8H History of decompensated Met-ALD cirrhosis. Follows w/ Dr. Low outpatient. Is currently on transplant list. Prior decompensations include recurrent ascites, gastroesophageal varices, HE. Is on ciprofloxacin for secondary prophylaxis. Patient without asterixis on exam, minimal ascites on physical exam, negative for SBP tenderness with pain likely secondary to tube dislodgement. Decompensation history Varices: unknown, needs screening EGD Ascites: on diuretics as above. Previous paracenteses in Apr 2024 HE: history of HE, now on lactulose and rifaximin SBP: yes, now on prophylactic Cipro MELD 3.0: 17 at 07/03/2024 4:20 AM MELD-Na: 16 at 07/03/2024 4:20 AM Calculated from: Serum Creatinine: 0.72 mg/dL (Using min of 1 mg/dL) at 07/03/2024 4:20 AM Serum Sodium: 135 mmol/L at 07/03/2024 4:20 AM Total Bilirubin: 3.6 mg/dL at 07/03/2024 4:20 AM Serum Albumin: 2.8 g/dL at 07/03/2024 4:20 AM INR(ratio): 1.3 at 07/02/2024 3:44 AM Age at listin years Sex: Male at 07/03/2024 4:20 AM - Daily MELD labs - Continue home meds - Zosyn as above Assessment & Plan (07/02/2024 11:12 AM EDT): Home meds: lasix 40mg daily, spironolactone 100mg daily, lactulose 20g 3 times a day, rifaximin 550mg Q12, midodrine 15mg Q8H History of decompensated Met-ALD cirrhosis. Follows w/ Dr. Low outpatient. Is currently on transplant list. Prior decompensations include recurrent ascites, gastroesophageal varices, HE. Is on ciprofloxacin for secondary prophylaxis. Patient without asterixis on exam, minimal ascites on physical exam, negative for SBP tenderness with pain likely secondary to tube dislodgement. Decompensation history Varices: unknown, needs screening EGD Ascites: on diuretics as above. Previous paracenteses in Apr 2024 HE: history of HE, now on lactulose and rifaximin SBP: yes, now on prophylactic Cipro MELD 3.0: 17 at 06/12/2024 7:33 AM MELD-Na: 18 at 06/12/2024 7:33 AM Calculated from: Serum Creatinine: 0.75 mg/dL (Using min of 1 mg/dL) at 06/12/2024 7:33 AM Serum Sodium: 132 mmol/L at 06/12/2024 7:33 AM Total Bilirubin: 2 mg/dL at 06/12/2024 7:33 AM Serum Albumin: 2.9 g/dL at 06/12/2024 7:33 AM INR(ratio): 1.5 at 06/12/2024 7:33 AM Age at listin years Sex: Male at 06/12/2024 7:33 AM - Daily MELD labs - Continue home meds - Continue daily Ciprofloxacin 500 mg SBP medical prophylaxis Assessment & Plan (07/02/2024 3:24 AM EDT): Home meds: lasix 40mg daily, spironolactone 100mg daily, lactulose 20g 3 times a day, rifaximin 550mg Q12, midodrine 15mg Q8H History of decompensated Met-ALD cirrhosis. Follows w/ Dr. Low outpatient. Is currently on transplant list. Prior decompensations include recurrent ascites, gastroesophageal varices, HE. Is on ciprofloxacin for secondary prophylaxis. Patient without asterixis on exam, minimal ascites on physical exam, negative for SBP tenderness with pain likely secondary to tube dislodgement. - Daily MELD labs - continue home meds S/P TIPS (transjugular intrahepatic portosystemi c shunt) 06/11/2024 Assessment & Plan (07/03/2024 9:55 AM EDT): Underwent IR TIPS 06/11/24 for recurrent ascites with ultimate plan for cholecystectomy. Last seen by IR 06/27 for routine therapeutic paracentesis, which was not performed due to no tappable pocket. Last para was 06/06 with 450 mL removed without evidence of infection. Patient without considerable ascites on exam on admission 07/02/24 Assessment & Plan (07/02/2024 7:34 AM EDT): Underwent IR TIPS 06/11/24 for recurrent ascites with ultimate plan for cholecystectomy. Last seen by IR 4/4 for routine therapeutic paracentesis, which was not performed due to no tappable pocket. Last para was 3 with 450 mL removed without evidence of infection. Patient without considerable ascites on exam on admission 07/02/24 Assessment & Plan (07/02/2024 3:24 AM EDT): Underwent IR TIPS 06/11/24 for recurrent ascites with ultimate plan for cholecystectomy. Last seen by IR 4/4 for routine therapeutic paracentesis, which was not performed due to no tappable pocket. Last para was 3 with 450 mL removed without evidence of infection. Patient without considerable ascites on exam on admission 07/02/24 Alcoholic cirrhosis of liver with ascites 2024 Moderate protein-calorie malnutrition 04/18/2024 Assessment & Plan [...] PM EST): High protein diet, salt restriction HLD (hyperlipidemia) 04/16/2024 Assessment & Plan (07/03/2024 9:55 AM EDT): Per chart review, patient not taking simvastatin 5 mg daily. Assessment & Plan (07/02/2024 11:12 AM EDT): Per chart review, patient not taking simvastatin 5 mg daily. Assessment & Plan (05/02/2024 7:27 AM EST): [...] 50 mg nightly this admission and melatonin Decompensated cirrhosis Assessment & Plan (09/18/2024 1:51 PM EDT): Patient with history of liver cirrhosis. Follows up with GI. Patient is status post TIPS on 06/11. Patient has had a history of ascites and SBP in the past which was treated. Patient was not started on ciprofloxacin for prophylaxis. Patient is also on lactulose 3 times daily, Lasix 40 mg p.o. daily, Aldactone 100 mg p.o. daily and rifaximin 550 mg p.o. twice daily. Patient is also on the transplant list but is an active. MELD 3.0: 14 at 09/18/2024 6:27 AM MELD-Na: 15 at 09/18/2024 6:27 AM Calculated from: Serum Creatinine: 0.57 mg/dL (Using min of 1 mg/dL) at 09/18/2024 6:27 AM Serum Sodium: 136 mmol/L at 09/18/2024 6:27 AM Total Bilirubin: 2.5 mg/dL at 09/18/2024 6:27 AM Serum Albumin: 3.4 g/dL at 09/18/2024 6:27 AM INR(ratio): 1.4 at 09/18/2024 6:27 AM Age at listin years Sex: Male at 09/18/2024 6:27 AM - Continue with Furosemide 20 mg p.o. daily - Continue Aldactone 50 mg p.o. daily - Continue Lactulose 20 mg 3 times daily - Rifaximin 550 mg BID - Thiamine 100 mg daily - Daily MELD labs - Gastroenterology consulted, following Assessment & Plan (09/17/2024 3:03 PM EDT): Patient with history of liver cirrhosis. Follows up with GI. Patient is status post TIPS on 06/11. Patient has had a history of ascites and SBP in the past which was treated. Patient was not started on ciprofloxacin for prophylaxis. Patient is also on lactulose 3 times daily, Lasix 40 mg p.o. daily, Aldactone 100 mg p.o. daily and rifaximin 550 mg p.o. twice daily. Patient is also on the transplant list but is an active. MELD 3.0: 16 at 09/17/2024 5:54 AM MELD-Na: 17 at 09/17/2024 5:54 AM Calculated from: Serum Creatinine: 0.71 mg/dL (Using min of 1 mg/dL) at 09/17/2024 5:54 AM Serum Sodium: 135 mmol/L at 09/17/2024 5:54 AM Total Bilirubin: 3 mg/dL at 09/17/2024 5:54 AM Serum Albumin: 3.3 g/dL at 09/17/2024 5:54 AM INR(ratio): 1.5 at 09/17/2024 5:54 AM Age at listin years Sex: Male at 09/17/2024 5:54 AM - Continue with Furosemide 20 mg p.o. daily - Continue Aldactone 50 mg p.o. daily - Continue Lactulose 20 mg 3 times daily - Rifaximin 550 mg BID - Thiamine 100 mg daily - Daily MELD labs - Gastroenterology consulted, following Assessment & Plan (09/15/2024 8:58 PM EDT): Patient with history of liver cirrhosis. Follows up with GI. Patient is status post TIPS on 06/11. Patient has had a history of ascites and SBP in the past which was treated. Patient was not started on ciprofloxacin for prophylaxis. Patient is also on lactulose 3 times daily, Lasix 40 mg p.o. daily, Aldactone 100 mg p.o. daily and rifaximin 550 mg p.o. twice daily. Patient is also on the transplant list but is an active MELD 3.0: 18 at 09/15/2024 5:29 PM MELD-Na: 18 at 09/15/2024 5:29 PM Calculated from: Serum Creatinine: 0.67 mg/dL (Using min of 1 mg/dL) at 09/15/2024 12:01 PM Serum Sodium: 134 mmol/L at 09/15/2024 12:01 PM Total Bilirubin: 3.5 mg/dL at 09/15/2024 12:01 PM Serum Albumin: 3 g/dL at 09/15/2024 12:01 PM INR(ratio): 1.5 at 09/15/2024 5:29 PM Age at listin years Sex: Male at 09/15/2024 5:29 PM -Daily MELD labs - Continue with furosemide 40 mg p.o. daily - Continue lactulose 3 times daily -Continue Aldactone 100 mg p.o. daily - GI/liver consultation in a.m. Assessment & Plan (09/15/2024 8:45 PM EDT): Patient with history of liver cirrhosis. Follows up with GI. Patient is status post TIPS on 06/11. Patient has had a history of ascites and SBP in the past which was treated. Patient was not started on ciprofloxacin for prophylaxis. Patient is also on lactulose 3 times daily, Lasix 40 mg p.o. daily, Aldactone 100 mg p.o. daily and rifaximin 550 mg p.o. twice daily. Patient is also on the transplant list but is an active MELD 3.0: 18 at 09/15/2024 5:29 PM MELD-Na: 18 at 09/15/2024 5:29 PM Calculated from: Serum Creatinine: 0.67 mg/dL (Using min of 1 mg/dL) at 09/15/2024 12:01 PM Serum Sodium: 134 mmol/L at 09/15/2024 12:01 PM Total Bilirubin: 3.5 mg/dL at 09/15/2024 12:01 PM Serum Albumin: 3 g/dL at 09/15/2024 12:01 PM INR(ratio): 1.5 at 09/15/2024 5:29 PM Age at listin years Sex: Male at 09/15/2024 5:29 PM -Daily MELD labs - Continue with furosemide 40 mg p.o. daily - Continue lactulose 3 times daily -Continue Aldactone 100 mg p.o. daily - GI/liver consultation in a.m. Assessment & Plan (05/02/2024 4:19 PM EST): [...] Problem Noted Date Diagnosed Date Resolved Date Detachment of percutaneous c holecystostomy tube 07/02/2024 07/04/2024 Cholecystostomy tube dysfunction 07/01/2024 07/04/2024 Assessment & Plan (07/03/2024 8:20 PM EDT): Presented with concern for PCT dislodgement. Pt accidentally pulled PCT out about 2-3 inches and since then has not been draining, although per patient the drainage had been minimal even prior to it being dislodged. Initially admitted 01/2024 at OSH with acute cholecystitis which was managed with PCT given cross sectional imaging showed cirrhosis with portal hypertension and small volume ascites. This has previously been complicated by leaking around and clogging of PCT leading to SBP and septic shock. ERCP has been attempted twice in effort to place cystic duct stents so PCT could be removed. Most recent ERCP was 05/02 with multiple impacted stones in GB with tortuous and stenosed cystic duct, therefore unable to pass catheter or dilating balloon. One stent was placed into the distal cystic duct and one into the common bile duct given some oozing. Recommended for follow up ERCP in two months for stent removal and re-attempt at drainage. Underwent IR TIPS 06/11 for recurrent ascites with ultimate plan for cholecystectomy. CTAP confirming that tube is dislodged and in abdominal wall. Patient is afebrile without white count. - General Surgery removed percutaneous shay tube, no plan for acute cholecystectomy at this time - Monitor WBC/Fever curve - Zosyn 3.375 g q8h, hold home Cipro - ERCP with 2 stents placed, plan for outpatient cholecystectomy - Continue NPO as above Assessment & Plan (07/02/2024 11:12 AM EDT): Presented with concern for PCT dislodgement. Pt accidentally pulled PCT out about 2-3 inches and since then has not been draining, although per patient the drainage had been minimal even prior to it being dislodged. Initially admitted 01/2024 at OSH with acute cholecystitis which was managed with PCT given cross sectional imaging showed cirrhosis with portal hypertension and small volume ascites. This has previously been complicated by leaking around and clogging of PCT leading to SBP and septic shock. ERCP has been attempted twice in effort to place cystic duct stents so PCT could be removed. Most recent ERCP was 05/02 with multiple impacted stones in GB with tortuous and stenosed cystic duct, therefore unable to pass catheter or dilating balloon. One stent was placed into the distal cystic duct and one into the common bile duct given some oozing. Recommended for follow up ERCP in two months for stent removal and re-attempt at drainage. Underwent IR TIPS 06/11 for recurrent ascites with ultimate plan for cholecystectomy. CTAP confirming that tube is dislodged and in abdominal wall. Patient is afebrile without white count. - General Surgery removed percutaneous shay tube, no plan for acute cholecystectomy at this time - Monitor WBC/Fever curve - Continue daily Ciprofloxacin 500 mg medical prophylaxis - Bilirubin rising, will discuss possible add on ERCP today for stent exchange - Continue NPO as above Assessment & Plan (07/02/2024 3:24 AM EDT): Presented with concern for PCT dislodgement. Pt accidentally pulled PCT out about 2-3 inches and since then has not been draining, although per patient the drainage had been minimal even prior to it being dislodged. Initially admitted 01/2024 at OSH with acute cholecystitis which was managed with PCT given cross sectional imaging showed cirrhosis with portal hypertension and small volume ascites. This has previously been complicated by leaking around and clogging of PCT leading to SBP and septic shock. ERCP has been attempted twice in effort to place cystic duct stents so PCT could be removed. Most recent ERCP was 05/02 with multiple impacted stones in GB with tortuous and stenosed cystic duct, therefore unable to pass catheter or dilating balloon. One stent was placed into the distal cystic duct and one into the common bile duct given some oozing. Recommended for follow up ERCP in two months for stent removal and re-attempt at drainage. Underwent IR TIPS 06/11 for recurrent ascites with ultimate plan for cholecystectomy. CTAP confirming that tube is dislodged and in abdominal wall. Patient is afebrile without white count. - GI consult for tube replacement which may occur 4/9 am - Monitor WBC/Fever curve - Continue daily Ciprofloxacin 500 mg medical prophylaxis - NPO Hyponatremia 04/24/2024 05/03/2024 Assessment & Plan (05/02/2024 [...] has been weaned off vasopressors since 04/15. Cholecystitis 04/12/2024 08/05/2024 Assessment & Plan (04/19/2024 12:17 PM EST): [...] appointment for cholecystectomy on discharge w/Gen Surg MARÍA (acute kidney injury) 04/12/2024 Assessment & [...] Encounters Date Type Department Care Team Description 12/30/2024 Telephone [facility] Transplant Department [address] [place] [address] Selin Johnson CPhT Prior Authorization 12/19/2024 11:09 AM EDT - 12/19/2024 11:59 PM EDT Hospital Encounter [facility] Xray [address] [place] [address] S/P umbilical hernia repair, follow-up exam; Alcoholic cirrhosis of liver with ascites (HCC); S/P laparoscopic cholecystectomy; SBP (spontaneous bacterial peritonitis) (HCC); Shortness of breath Discharge Disposition: Home or Self Care (01) 12/19/2024 10:30 AM EDT Follow-Up [facility] [address] [place] [phone] Mike Low MD S/P umbilical hernia repair, follow-up exam (Primary Dx); Alcoholic cirrhosis of liver with ascites (HCC); S/P laparoscopic cholecystectomy; SBP (spontaneous bacterial peritonitis) (HCC); Shortness of breath 12/19/2024 Results Follow-Up [facility] [address] [place] [phone] Alondra Aceves RN 12/19/2024 myChart Message [facility] [address] [place] [phone] Mike Low MD chest xray 12/12/2024 Telephone [facility] Transplant Department [address] [place] [id number] Selin Johnson CPhT Prior Authorization 12/01/2024 1:30 PM EDT Follow-Up [facility] [address] [place] [phone] Alee Conteh NP S/P umbilical hernia repair, follow-up exam (Primary Dx) 12/01/2024 Results Follow-Up [facility] [address] [place] [address] [phone] Lorie Mahoney RN 11/28/2024 Orders Only [facility] Transplant Department [address] [place] [phone] Lorie Mahoney, RN Alcoholic cirrhosis of liver with ascites (HCC) (Primary Dx) 11/11/2024 7:50 AM EDT Anesthesia Event [facility] Operating Room [address] [place] [address] Weston Cruz, Pedro Kam DO 11/11/2024 7:05 AM EDT - 11/11/2024 10:25 AM EDT Surgery [facility] Operating Room [address] [place] [id number] Heaven Erwin MD MPH Repair Anterior Abdominal Hernia, Initial <3cm, Reducible [23018 (CPT )] 11/11/2024 5:43 AM EDT - 11/11/2024 12:36 PM EDT Hospital Encounter [facility] Operating Room [address] [place] [id number] Heaven Erwin MD MPH Umbilical hernia without obstruction and without gangrene Discharge Disposition: Home or Self Care (01) 11/07/2024 10:30 AM EDT Follow-Up [facility] [address] [place] [phone] Heaven Erwin MD MPH Alcoholic cirrhosis of liver with ascites (HCC) (Primary Dx); S/P laparoscopic cholecystectomy; Umbilical hernia without obstruction and without gangrene 11/07/2024 Telephone [facility] Transplant Department [address] [place] [id number] Heaven Erwin MD MPH 11/07/2024 Prep for Case [facility] Transplant Department [address] [place] [phone] Heaven Erwin MD MPH Umbilical hernia without obstruction and without gangrene (Primary Dx) 10/10/2024 Results Follow-Up [facility] [facility] [address] [place] [phone] Lorie Mahoney RN 10/09/2024 3:00 PM EDT Follow-Up [facility] [address] [place] [phone] Mike Low MD Alcoholic cirrhosis of liver with ascites (HCC) (Primary Dx); S/P laparoscopic cholecystectomy; SBP (spontaneous bacterial peritonitis) (HCC) 10/09/2024 Orders Only [facility] Transplant Department [address] [place] [phone] Lorie Mahoney RN Alcoholic cirrhosis of liver with ascites (HCC) (Primary Dx) from Last 3 Months Immunizations Immunization Administration [...] oz pur e alcohol) sober since 11/2023 [facility] Utilities Answer Date Recorded In the past 12 months has th e [employer], gas, oil, or water [employer] threatened to shut off services in your [...] Sign Reading Time Taken Comments Blood Pressure 106/71 12/19/2024 10:16 AM EDT Pulse 79 12/19/2024 10:16 AM EDT Temperature 36.7 C (98.1 F) 12/01/2024 1:16 PM EDT Respiratory Rate 18 12/19/2024 10:16 AM EDT Oxygen Saturation 99% 12/19/2024 10:16 AM EDT Inhaled Oxygen Concentration - - Weight 92 kg (202 lb 13.2 oz) 12/19/2024 10:16 A M EDT Height 182.9 cm (6') 11/11/2024 6:37 AM EDT Body Mass Index 27.51 11/11/2024 6:37 AM EDT Plan of Treatment Upcoming Encounters Date Type Department Care Team (Late st Contact Info) Description 03/20/2025 9:45 AM EST Appointment [facility] Ultrasound [address] [place] [address] 04/28/2025 3:30 PM EST Follow-Up [facility] [address] [place] [address] Mike Low MD [address] [place] [address] Health Maintenance Due Date Last Done Comments Cologuard 1959 Colon Cancer Screening 1959 Colonoscopy 1959 FOBT / Fit Test 1959 Sigmoidoscopy 1959 Medicare AWV 10/05/1960 Hepatitis B Vaccines (1 of 3 - Risk 3-dose series) 2019 03/21/2018, 10/19/2017, 09/19/2017 RSV Vaccine (60+ years old a nd patients) (1 - Risk 60-74 years 1-dose series) 2019 Depression Screening and Follow-Up 03/26/2024 Health Care Proxy Review 03/26/2024 COVID-19 Vaccine (5 - 2024-2 6 season) 2024 02/08/2023, 12/22/2020, 04/02/2020, Additional history exists Influenza Vaccine (#1) 2024 5, 01/10/2023, 12/28/2020, Additional history exists Social Drivers of Health Daniela ual Screening 09/16/2025 09/16/2024 Basic Metabolic Panel 12/19/2025 12/19/2024 , 12/01/2024, 10/09/2024, Additional history exists DTaP,Tdap,and Td Vaccines (2 - Td or Tdap) 01/03/2027 01/03/2017 Diabetes Screening 12/20/2027 12/19/2024, 0 12/01/2024, 10/09/2024, Additional history exists Zoster Vaccines Completed 07/23/2021, 03/10/2021 Pneumococcal Vaccine: 50+ Years Completed 2 HIV Screening Completed 04/17/2024 Hepatitis C Screening Completed 04/17/2024 Alcohol/Substance Use Screening Completed 5 Medical Devices Implanted Type Area Strategic Consultant Device Identifier Shelf Expiration Date Model / Serial / Lot Kit Set Access Tips Bd Liverty - [id number] Implanted:Qty: 1 on 06/11/2024 by James Pyle MD PhD at [facility] Implant DORON LASHONDA [id number] 06/17/2026 [id number] / / [id number] Stent Vascular Endoprosthesis With Controlled Expansion 10fr [id number] Viatorr - [id number] - [id number] Implanted:Qty: 1 on 06/11/2024 by James Pyle MD PhD at [facility] Implant W L GORE [id number] 02/14/2027 [id number] [id number] / [id number] / Vascular Plug For Peripheral Vascular Occlusion 18mm - [id number] Implanted:Qty: 1 on 06/11/2024 by James Pyle MD PhD at [facility] Implant [employer] [id number] 10/24/2027 [id number] Set Stent Biliary Self Expanding Pigtail Double [id number] Joaniemon - Szebd-7-15 Or [id number] - [id number] Implanted:Qty: 1 on 07/03/2024 by Rcahel Murray MD at [facility] Stent N/A: Bile Duct [employer] [id number] 01/14/2027 [id number] / [id number]-[id number] OR [id number] / [id number] Set Stent Biliary Self Expanding Pigtail Double [id number] Nikita Szebd-7-15 - [id number] Implanted:Qty: 1 on 07/03/2024 by Rachel Murray MD at [facility] Stent N/A: Bile Duct [employer] [id number] 01/14/2027 [id number] / ZEBD-7-1 5 / [id number] Explanted Type Area Strategic Consultant Device Identifier Shelf Expiration Date Model / Serial / Lot Stent Advanix Pancreatic Pigtail Lb 5fr X 7cm - [id number] - [id number] Explanted:Qty: 1 on 04/29/2024 by Rachel Murray MD at [facility] Stent [employer] [place] [employer] 04/09/2025 [id number] / [id number] / [id number] Stent Biliary Rx Fully Covered Self Expanding Metallic Rmv With Permalume Covering 8.5fr [id number] Wallflex - [id number] Implanted:Qty: 1 on 04/29/2024 by Rachel Murray MD at [facility] Explanted:Qty: 1 on 07/03/2024 by Rachel Murray MD at [facility] Stent N/A: Bile Duct [employer] 12/27/2025 [id number] / / [id number] Stent Biliary Double Pigtail Polyethylene Purple 7fr 5cm [facility] - [id number] - [id number] Implanted:Qty: 1 on 05/02/2024 by Rachel Murray MD at [facility] Explanted:Qty: 1 on 07/03/2024 by Rachel Murray MD at [facility] Stent N/A: Bile Duct [employer] 06/28/2025 [id number] / [id number] / [id number] Description:PLACED IN CYSTIC DUCT Stent Biliary Double Pigtail W/Introducer 10fr 4cm Solus - [id number] - [id number] Implanted:Qty: 1 on 05/02/2024 by Rachel Murray MD at [facility] Explanted:Qty: 1 on 07/03/2024 by Rachel Murray MD at [facility] Stent N/A: Bile Duct [employer] 05/02/2025 [id number] / [id number] / Description:PLACED IN CBD Procedures * Due to [place] state law, this organization might not be sharing negative HIV tests. Procedure Name Priority Date/Time Associated Diagnosis Comments CBC Routine 12/19/2024 11:25 AM EDT S/P umbilical hernia repair, follow-up exam Alcoholic cirrhosis of liver with ascites (HCC) S/P laparoscopic cholecystectomy SBP (spontaneous bacterial peritonitis) (HCC) Shortness of breath BASIC METABOLIC PANEL Routine 12/19/2024 11:25 AM EDT S/P umbilical hernia repair, follow-up exam Alcoholic cirrhosis of liver with ascites (HCC) S/P laparoscopic cholecystectomy SBP (spontaneous bacterial peritonitis) (HCC) Shortness of breath PROTIME-INR Routine 12/19/2024 11:25 AM EDT S/P umbilical hernia repair, follow-up exam Alcoholic cirrhosis of liver with ascites (HCC) S/P laparoscopic cholecystectomy SBP (spontaneous bacterial peritonitis) (HCC) Shortness of breath HEPATIC FUNCTION PANEL Routine 12/19/2024 11:25 AM EDT S/P umbilical hernia repair, follow-up exam Alcoholic cirrhosis of liver with ascites (HCC) S/P laparoscopic cholecystectomy SBP (spontaneous bacterial peritonitis) (HCC) Shortness of breath XR CHEST 2 VW Routine 12/19/2024 11:15 AM EDT S/P umbilical hernia repair, follow-up exam Alcoholic cirrhosis of liver with ascites (HCC) S/P laparoscopic cholecystectomy SBP (spontaneous bacterial peritonitis) (HCC) Shortness of breath CBC AUTO DIFFERENTIAL Routine 12/01/2024 12:48 PM EDT Alcoholic cirrhosis of liver with ascites (HCC) PROTIME-INR Routine 12/01/2024 12:48 PM EDT Alcoholic cirrhosis of liver with ascites (HCC) AFP TUMOR MARKER Routine 12/01/2024 12:4 8 PM EDT Alcoholic cirrhosis of liver with ascites (HCC) COMPREHENSIVE METABOLIC PANEL Routine 12/01/2024 12:48 PM EDT Alcoholic cirrhosis of liver with ascites (HCC) TISSUE EXAM Routine 11/11/2024 8:37 AM EDT Umbilical hernia without obstruction and without gangrene WY REPAIR ANT ABD HERNIA ANY APPR W MESH T LENGTH DEFECT [id number] REDUC 11/11/2024 7:25 AM EDT Umbilical hernia without obstruction and without gangrene COMPREHENSIVE METABOLIC PANEL Routine 10/09/2024 4:24 PM EDT Alcoholic cirrhosis of liver with ascites (HCC) AFP TUMOR MARKER Routine 10/09/2024 4:24 PM EDT Alcoholic cirrhosis of liver with ascites (HCC) PROTIME-INR Routine 10/09/2024 4:24 PM EDT Alcoholic cirrhosis of liver with ascites (HCC) CBC AUTO DIFFERENTIAL Routine 10/09/2024 4:24 PM EDT Alcoholic cirrhosis of liver with ascites (HCC) HEPATITIS C ANTIBODY W/REFLEX TO HCV RNA, QUANTITATIVE PCR Routine 04/17/2024 9:32 AM EST from Last 3 Months or Most Recently Relevant to Health Maintenance Results * Due to [place] state law, this organization might not be sharing negative HIV tests. * (ABNORMAL) Protime-INR (12/19/2024 11:25 AM EDT) Only the most recent of3 resultswithin the time period is included. PT 13.6(H) 9.6 - 12.4 Seconds 12/19/2024 11:59 AM EDT [email or web address] INR 1.3 0.9 - 1.1 12/19/2024 11:59 AM EDT [email or web address] Comment:The optimal therapeu tic INR range for patients treated with Vitamin K antagonists (VKAS, e.g., Warfarin) is 2.0 to 3.5. Discuss the desired range with your doctor/care team. Blood Structure of peripheral vein / Unknown Venipuncture / Unknown 12/19/2024 11:25 AM EDT 12/19/2024 11:40 AM EDT Mike Low MD LAB BLOOD ORDERABLES Fin al Result [email or web address] [address] [place] [address], * (ABNORMAL) CBC (12/19/2024 11:25 AM EDT) WBC 5.4 3.8 - 10.8 10*3/uL 12/19/2024 11:48 AM EDT [email or web address] RBC 3.64(L) 4.20 - 5.80 10*6/uL 12/19/2024 11:48 AM EDT [email or web address] Hemoglobin 12.4(L) 13.2 - 17.1 g/dL 12/19/2024 11:48 AM EDT [email or web address] Hematocrit 34.9(L) 38.5 - 50.0 % 12/19/2024 11:48 AM EDT [email or web address] MCV 95.9 80.0 - 100.0 fL 12/19/2024 11:48 AM EDT [email or web address] MCH 34.1(H) 27.0 - 33.0 pg 12/19/2024 11:48 AM EDT [email or web address] MCHC 35.5 32.0 - 36.0 g/dL 12/19/2024 11:48 AM EDT [email or web address] RDW 15.0 11.0 - 15.0 % 12/19/2024 11:48 AM EDT [email or web address] Platelets 110(L) 140 - 400 10*3/uL 12/19/2024 11:48 AM EDT [facility] MPV 10.8 7.5 - 12.5 fL 12/19/2024 11:48 AM EDT [facility] Blood Structure of peripheral vein / Unknown Venipuncture / Unknown 12/19/2024 11:25 AM EDT 12/19/2024 11:40 AM EDT Mike Low MD LAB BLOOD ORDERABLES Fin al Result [facility] [address] [place] [address], * (ABNORMAL) Hepatic Function Panel (12/19/2024 11:25 AM EDT) Total Protein 6.8 6.0 - 8.0 g/dL 12/19/2024 12:11 PM EDT [email or web address] Albumin 3.6 3.5 - 5.2 g/dL 12/19/2024 12:11 PM EDT [email or web address] Globulin, Total 3.2 2.1 - 4.2 g/dL 12/19/2024 12:11 PM EDT [facility] Bilirubin, Total 2.9(H) 0.2 - 1.2 mg/dL 12/19/2024 12:11 PM EDT [facility] Bilirubin, Direct 1.1(H) <=0.4 mg/dL 12/19/2024 12:11 PM EDT [facility] Alkaline Phosphatase 241(H) 35 - 129 U/L 12/19/2024 12:11 PM EDT [email or web address] AST 45(H) 10 - 40 U/L 12/19/2024 12:11 PM EDT [facility] ALT 31 10 - 40 U/L 12/19/2024 12:11 PM EDT [email or web address] Bilirubin, Indirect 1.80(H) <=0.70 mg/dL 12/19/2024 12:11 PM EDT [email or web address] A/G Ratio 1.1(L) 1.5 - 3.0 12/19/2024 12:11 PM EDT [facility] Blood Structure of peripheral vein / Unknown Venipuncture / Unknown 12/19/2024 11:25 AM EDT 12/19/2024 11:40 AM EDT Mike Low MD LAB BLOOD ORDERABLES Fin al Result [facility] [address] [place] [address], * (ABNORMAL) Basic Metabolic Panel (12/19/2024 11:25 AM EDT) NA 136 135 - 145 mmol/L 12/19/2024 12:11 PM EDT [email or web address] K 4.3 3.5 - 5.3 mmol/L 12/19/2024 12:11 PM EDT [email or web address] Cl 104 98 - 107 mmol/L 12/19/2024 12:11 PM EDT [email or web address] CO2 23 22 - 32 mmol/L 12/19/2024 12:11 PM EDT [email or web address] BUN 15 7 - 23 mg/dL 12/19/2024 12:11 PM EDT [email or web address] Creatinine 0.86 0.60 - 1.30 mg/dL 12/19/2024 12:11 PM EDT [email or web address] Glucose 117(H) 65 - 99 mg/dL 12/19/2024 12:11 PM EDT [email or web address] Calcium 9.8 8.6 - 10.5 mg/dL 12/19/2024 12:11 PM EDT [email or web address] Anion Gap 9 5 - 15 12/19/2024 12:11 PM EDT [facility] eGFR >90 >=60 mL/min/1. 73m2 12/19/2024 12:11 PM EDT [facility] Comment:The estimated glomer [...] peripheral vein / Unknown Venipuncture / Unknown 12/19/2024 11:25 AM EDT 12/19/2024 11:40 AM EDT Mike Low MD LAB BLOOD ORDERABLES Fin al Result [facility] [address] [place] [address], * X-Ray Chest 2 Views (12/19/2024 11:15 AM EDT) Anatomical Region Laterality Modality Body Computed Radiogr aphy 12/21/2024 4:04 PM EDT Impressions 12/21/2024 4:05 PM EDT No change. Heart size normal. Lungs and pleural spaces clear. Mild DJD in the dorsal spine. If this radiology report contains a blank impression section, it is an incomplete radiology report. Please contact the interpreting radiologist or applicable radiology division as soon as possible to obtain the completed interpretation. Workstation ID: [id number] Narrative 12/21/2024 4:05 PM EDT COMPARISON: 07/03/2024 FINDINGS AND Resulting Agency Comment [id number] Procedure Note Jeyson Silva MD - 12/21/2024 COMPARISON: 07/03/2024 FINDINGS AND IMPRESSION: No change. Heart size normal. Lungs and pleural spaces clear. Mild DJD inthe dorsal spine. If this radiology report contains a blank impression section, it is anincomplete radiology report. Please contact the interpreting radiologistor applicable radiology division as soon as possible to obtain thecompleted interpretation. Workstation ID: [id number] Mike Low MD IMG XR PROCEDURES Final Result * (ABNORMAL) CBC Auto Differential (12/01/2024 12:48 PM EDT) Only the most recent of2 resultswithin the time period is included. WBC 4.9 3.8 - 10.8 10*3/uL 12/01/2024 1:13 PM EDT [facility] RBC 3.66(L) 4.20 - 5.80 10*6/uL 12/01/2024 1:13 PM EDT [facility] Hemoglobin 12.5(L) 13.2 - 17.1 g/dL 12/01/2024 1:13 PM EDT [facility] Hematocrit 34.9(L) 38.5 - 50.0 % 12/01/2024 1:13 PM EDT [facility] MCV 95.4 80.0 - 100.0 fL 12/01/2024 1:13 PM EDT [facility] MCH 34.2(H) 27.0 - 33.0 pg 12/01/2024 1:13 PM EDT [facility] MCHC 35.8 32.0 - 36.0 g/dL 12/01/2024 1:13 PM EDT [facility] RDW 15.1(H) 11.0 - 15.0 % 12/01/2024 1:13 PM EDT [facility] Platelets 109(L) 140 - 400 10*3/uL 12/01/2024 1:13 PM EDT [facility] MPV 10.1 7.5 - 12.5 fL 12/01/2024 1:13 PM EDT [facility] Neutrophil % 56.9 % 12/01/2024 1:13 PM EDT [facility] Immature Grans % 0.2 0.0 - 0.9 % 12/01/2024 1:13 PM EDT [facility] Lymphocyte % 25.1 % 12/01/2024 1:13 PM EDT [facility] Monocyte % 13.0 % 12/01/2024 1:13 PM EDT [facility] Eosinophil % 3.8 % 12/01/2024 1:13 PM EDT [facility] Basophil % 1.0 % 12/01/2024 1:13 PM EDT [facility] Neutrophil # 2.81 1.50 - 7.80 10*3/uL 12/01/2024 1:13 PM EDT [facility] Immature Grans # <0.03 <=0.03 10*3/uL 12/01/2024 1:13 PM EDT [facility] Lymphocyte # 1.20 0.85 - 3.90 10*3/uL 12/01/2024 1:13 PM EDT [facility] Monocyte # 0.60 0.20 - 0.95 10*3/uL 12/01/2024 1:13 PM EDT [facility] Eosinophil # 0.20 0.02 - 0.50 10*3/uL 12/01/2024 1:13 PM EDT [facility] Basophil # 0.10 0.00 - 0.20 10*3/uL 12/01/2024 1:13 PM EDT [facility] nRBC % 0.0 /100 WBCs 12/01/2024 1:13 PM EDT [facility] nRBC # <0.01 <0.01 10*3/uL 12/01/2024 1:13 PM EDT [facility] Blood Structure of peripheral vein / Unknown Venipuncture / Unknown 12/01/2024 12:48 PM EDT 12/01/2024 1:05 PM EDT Mike Low MD LAB BLOOD ORDERABLES Fin al Result [facility] [address] [place] [address], * AFP tumor marker (12/01/2024 12:48 PM EDT) Only the most recent of2 resultswithin the time period is included. [facility] Alpha Fetoprotein, Tumor Marker 3.3 <6.1 ng/mL 12/02/2024 12:12 PM EDT [facility] Comment: This test was performed using the Mary Lou Fleming chemiluminescent method. Values obtained from different assay methods cannot be used interchangeably. AFP levels, regardless of value, should not be interpreted as absolute evidence of the presence or absence of disease. Blood Structure of peripheral vein / Unknown Venipuncture / Unknown 12/01/2024 12:48 PM EDT 12/01/2024 1:05 PM EDT Narrative [facility] 12/02/2024 12:12 PM EDT [facility] Received Date:[id number] Mike Low MD LAB BLOOD ORDERABLES Fin al Result Performing Organization Address City/[facility]/ZIP Co de Phone Number [facility] [address], [place] [address], [place] [phone] [facility] [address] [facility] [address], [place] [address], [place] [phone] * (ABNORMAL) Comprehensive Metabolic Panel (12/01/2024 12:48 PM EDT) Only the most recent of2 resultswithin the time period is included. Pathologist [facility] [place] NA 138 135 - 145 mmol/L 12/01/2024 1:38 PM EDT [email or web address] K 4.7 3.5 - 5.3 mmol/L 12/01/2024 1:38 PM EDT [email or web address] Cl 105 98 - 107 mmol/L 12/01/2024 1:38 PM EDT [email or web address] CO2 23 22 - 32 mmol/L 12/01/2024 1:38 PM EDT [email or web address] Anion Gap 10 5 - 15 12/01/2024 1:38 PM EDT [email or web address] Glucose 117(H) 65 - 99 mg/dL 12/01/2024 1:38 PM EDT [email or web address] Creatinine 0.72 0.60 - 1.30 mg/dL 12/01/2024 1:38 PM EDT [email or web address] Calcium 9.7 8.6 - 10.5 mg/dL 12/01/2024 1:38 PM EDT [email or web address] Total Protein 6.7 6.0 - 8.0 g/dL 12/01/2024 1:38 PM EDT [email or web address] Albumin 3.5 3.5 - 5.2 g/dL 12/01/2024 1:38 PM EDT [email or web address] Bilirubin, Total 3.6(H) 0.2 - 1.2 mg/dL 12/01/2024 1:38 PM EDT [email or web address] Alkaline Phosphatase 230(H) 35 - 129 U/L 12/01/2024 1:38 PM EDT [email or web address] AST 51(H) 10 - 40 U/L 12/01/2024 1:38 PM EDT [email or web address] ALT 32 10 - 40 U/L 12/01/2024 1:38 PM EDT [email or web address] BUN 13 7 - 23 mg/dL 12/01/2024 1:38 PM EDT [facility] eGFR >90 >=60 mL/min/1. 73m2 12/01/2024 1:38 PM EDT [facility] Comment:The estimated glomer ular [...] in Diagnosing Kidney Disease . Globulin, Total 3.2 2.1 - 4.2 g/dL 12/01/2024 1:38 PM EDT [facility] A/G Ratio 1.1(L) 1.5 - 3.0 12/01/2024 1:38 PM EDT [facility] Blood Structure of peripheral vein / Unknown Venipuncture / Unknown 12/01/2024 12:48 PM EDT 12/01/2024 1:05 PM EDT Mike Low MD LAB BLOOD ORDERABLES Fin al Result [facility] [address] [place] [address], * Tissue Exam (11/11/2024 8:37 AM EDT) Final Diagnosis Hernia Sac: - Fibromembranous and mature adipose tissue with mesothelial lining and chronic inflammatory infiltrate, consistent with hernia sac. - Negative for malignancy. [facility] 11/12/2024 2:03 PM EDT [facility] at 1403 EDT Clinical History Pre-op diagnosis: Umbilical hernia without obstruction and without gangrene [K42.9] [facility] MANUAL 11/12/2024 2:03 PM EDT [facility] Gross Description 1. Hernia Sac, Hernia Sac Received in formalin, labeled with the patient's name, date of , medical record number, and hernia sac , is a red-pink fibromembranous tissue fragment (4.2 x 2.5 x 1.2 cm), with a smooth and glistening surface along 1 aspect. The specimen is sectioned, and representative government relations sections are submitted in cassette 1A. [facility] MANUAL 11/12/2024 2:03 PM EDT [facility] Gross Description User Grossing complete by Karissa Soto on 11/11/2024 2:24 PM [facility] MANUAL 11/12/2024 2:03 PM EDT [facility] Embedded Images [facility] MANUAL 11/12/2024 2:03 PM EDT [facility] Resulting Agency Case was signed out at [facility], Department of Pathology, [employer] 3 CLIA [id number] [facility] MANUAL 11/12/2024 2:03 PM EDT [facility] Report Header Surgical Pathology Report Case: [id number] Authorizing Provider: Heaven Erwin MD MPH Collected: 11/11/2024 0837 Ordering Location: [facility] Received: 11/11/2024 1010 [facility] Operating Room Pathologist: Colette High MD Specimen: Hernia Sac 11/12/2024 2:03 PM EDT [facility] Tissue Hernia sac / Unknown 11/11/2024 8:37 AM EDT 11/11/2024 10:10 AM EDT Comment:Pre-op diagnosis: Umbilical hernia without obstruction and without gangrene [K42.9] us Heaven Erwin MD MPH LAB PATHOLOGY/CYTOLOGY O RDERABLES Final Result [facility] [address] [place] [address], [facility] [address] [place] [phone], * Hepatitis C Antibody w/Reflex to HCV RNA, Quantitative PCR (04/17/2024 9:32 AM EST) Hepatitis C Antibody NON-REACT ALESIA NON-REACT ALESIA 04/17/2024 7:[address] [facility] Comment: HCV antibody was non-reactive. There is no laboratory evidence of HCV infection. In most cases, no further action is required. However, if recent HCV exposure is suspected, a test for HCV RNA (test code 53364) is suggested. For additional information please refer to http://education.Indigoz/faq/ZGB40h0 (This link is being provided for informational/ educational purposes only.) Blood Structure of peripheral vein / Unknown Venipuncture / Unknown 04/17/2024 9:32 AM EST 04/17/2024 9:44 AM EST Narrative [facility] - 04/17/2024 7:31 PM EST [facility] Received Date: Delmis Joseph MD LAB BLOOD ORDERABLES Final Result [facility] [place] [address] [facility] 3rd Floor, [place] [address], [place] [phone] [facility] [address] [facility] [address] [facility], [place] [address], [place] [phone] from Last 3 Months or Most Recently Relevant to Health Maintenance Insurance MEDICARE [facility] SUPP HSNO/FREE CARE MEDICARE [facility] SUPP Advance Directives Documents on File Type Date Recorded Patient Gastroenterologist [facility] Proxy 04/17/2024 10:33 AM Abdelrahman Correa 0 04-16-2024 Power of Contact Center Specialist 04/17/2024 7:16 AM Health Care Proxy 04/16/2024 9:42 AM 04-16 * Full Code (Latest Code Status on File) Date Activated Date Inactivated Comments 11/11/2024 6:16 AM 11/11/2024 2:41 PM * Full Code Date Activated Date Inactivated Comments 09/15/2024 6:09 PM 09/19/2024 7:54 PM * Full Code Date Activated Date Inactivated Comments 07/02/2024 2:10 AM 07/04/2024 4:42 PM * Full Code Date Activated Date Inactivated Comments 06/11/2024 4:27 PM 06/12/2024 4:54 PM * Presumed Full Code Date Activated Date Inactivated Comments 06/11/2024 3:53 PM 06/11/2024 4:27 PM Healthcare Agents on File Name Relationship Healthcare Agent [facility] Communication Sana Correa Spouse Alternate Health Care Agent [email or web address] Care Teams Motor Adjuster Relationship Specialty Start Date End Date Jade Harper [address] [place] [address] dr Charly Parks, MAGALIE [address] PCP - General Internal Medicine 03/06/24
--- OUTSIDE RECORDS SUMMARY | 2025-01-05 13:18 | XMS_ITS | Encounter Summary ---
Author Organization [facility] Address [address] [place] [address] Care Team Providers Care Granulator Tender Name Role Phone Jade Harper Primary Care Provider [phone] Reason for Visit * Reason Onset Date Comments Prior Authorization 12/30/2024 Encounter Details Date Type Department Care Team (Late st Contact Info) Description 12/30/2024 Telephone [facility] Transplant Department [address] [place] [address] Selin Johnson CPhT Prior Authorization Social History Tobacco Use Types Packs/Day Years Used Date Smoking Tobacco: Never Smokeless Tobacco: Never Alcohol Use Standard Drinks/Week Comments Not Currently 8 (1 standard drink = 0.6 oz pur e alcohol) sober since 11/2023 [facility] Utilities Answer Date Recorded In the past 12 months has e electric, gas, oil, or water [employer] threatened to shut off services in your [...] Telephone Encounter - Corrine Underwood CPhT - 12/31/2024 8:44 AM EDT Images from the original note were not included. PA Approved for XIFAXAN TABLET 550 MG, #60/30, through [employer] [PA # [id number] ]. Effective 12/30/2024 until further notice MAY fill with [facility] Copay $ 12.15 - unable to bill Twelve due to Product Not Covered Non- Participating Third Miller * Telephone Encounter - Corrine Underwood CPhT - 12/30/2024 4:10 PM EDT wrote up appeal letter and faxed with progress notes to [employer] APPEALS < [email or web address]> * Telephone Encounter - Mike Low MD - 12/30/2024 3:41 PM EDT Please appeal. Thanks! * Telephone Encounter - Corrine Underwood CPhT - 12/30/2024 3:32 PM EDT Images from the original note were not included. I don't know who submitted this request that was denied because any of the recent notes would have shown what they were asking for. I can get the appeal started just need providers okay to go ahead and submit appeal PA Denied for Xifaxan through [employer] Insurance due to see below. Our next steps for moving forward are appeal. How would the MD like to proceed with the requested medication? * Telephone Encounter - Corrine Underwood CPhT - 12/30/2024 2:57 PM EDT tried to submitted on (Tony: [email or web address]) System was not able to process the request because the previous Prior Authorization Request was Denied. Called insurance to have denial letter sent, pending fax for next steps * Telephone Encounter - Selin Johnson CPhT - 12/30/2024 9:14 AM EDT Please assist with the following Prior Authorization: Medication Name & Strength: rifAXIMin (XIFAXAN) 550 mg tablet [[id number]] Directions: Sig: Take 1 tablet (550 mg total) by mouth every 12 hours. Quantity & Days' Supply: Dispense Quantity: 180 tablet (90 day supply) Diagnosis: Diagnosis: hepatic encephalopathy ICD.10: K76.82 ICD.10: Diagnosis: hepatic encephalopathy ICD.10: K76.82 Physician: Mike Low MD [address] [place], [place] [id number] ARLEEN #: [id number] -- Benefits Investigation has been conducted, test claim has been run and PA is required. Card has been flipped to In Progress-PA Requested. ? Additional Information: patient has new insurance [id number] [place] - [address] [place] [address] ARLEEN #: [id number] documented in this encounter Plan of Treatment Upcoming Encounters Date Type Department Care Team (Late st Contact Info) Description 03/20/2025 9:45 AM EST Appointment [facility] Ultrasound [address] [place] [address] 04/28/2025 3:30 PM EST Follow-Up [facility] Liver Transplant Services [address] [place] [address] Mike Low MD [address] [place] [address] documented as of this encounter Visit Diagnoses Not on filedocumented in this encounter Care Teams Granulator Tender Relationship Specialty Start Date End Date Jade Harper [address] [place] [address] [place] [address] PCP - General Internal Medicine 03/06/24 documented as of this encounter
--- OUTSIDE RECORDS SUMMARY | 2025-01-05 13:18 | XMS_ITS | Encounter Summary ---
Author Organization [facility] Address [address] [place] [address] Care Team Providers Care Fur Dresser Name Role Phone Jade Harper Primary Care Provider Encounter Details Date Type Department Care Team (Late st Contact Info) Description 12/19/2024 Brainrackt Message [facility] Liver Transplant Services [address] [place] [address] Mike Low MD [address] [place] [address] chest xray Social History Tobacco Use Types Packs/Day Years Used Date Smoking Tobacco: Never Smokeless Tobacco: Never Alcohol Use Standard Drinks/Week Comments Not Currently 8 (1 standard drink = 0.6 oz pur e alcohol) sober since 11/2023 [facility] Utilities Answer Date Recorded In the past 12 months has [employer] electric, gas, oil, or water company threatened [...] Info) Description 03/20/2025 9:45 AM EST Appointment [facility] Ultrasound [address] [place] [address] 04/28/2025 3:30 PM EST Follow-Up [facility] Liver Transplant Services [address] [place] [address] Mike Low MD [address] [place] [address] documented as of this encounter Visit Diagnoses Not on filedocumented in this encounter Care Teams Fur Dresser Relationship Specialty Start Date End Date Jade Harper [address] [place] [address] [place] [address] PCP - General Internal Medicine 03/06/24 documented as of this encounter
== END 2025-01-05 14:12 | disposition home or self-care (01) ==
LOC: HO.HMCH 13:13
PROVIDERS: PCP Internal Medicine; Visit Provider Internal Medicine
DX: E11.65 Type 2 diabetes mellitus with hyperglycemia (principal); I10 Essential (primary) hypertension; E78.00 Pure hypercholesterolemia, unspecified; K80.21 Calculus of gallbladder without cholecystitis with obstruction; K70.30 Alcoholic cirrhosis of liver without ascites; Z86.19 Personal history of other infectious and parasitic diseases; S98.131A Complete traumatic amputation of one right lesser toe, initial encounter; Z96.652 Presence of left artificial knee joint; L72.3 Sebaceous cyst; Z23 Encounter for immunization

== ENCOUNTER → 2025-01-05 13:12 | Outpatient (BNVA) | payer MEDICARE, SELFPAY | PROVIDERS: PCP Internal Medicine; Visit Provider Internal Medicine | DX: E11.65 Type 2 diabetes mellitus with hyperglycemia (principal); E11.51 Type 2 diabetes mellitus with diabetic peripheral angiopathy without gangrene; I10 Essential (primary) hypertension; E78.00 Pure hypercholesterolemia, unspecified; K80.21 Calculus of gallbladder without cholecystitis with obstruction; K70.30 Alcoholic cirrhosis of liver without ascites; L72.3 Sebaceous cyst; Z23 Encounter for immunization; Z86.19 Personal history of other infectious and parasitic diseases; Z96.652 Presence of left artificial knee joint; Z89.411 Acquired absence of right great toe; Z89.421 Acquired absence of other right toe(s) | CPT/HCPCS: 90471; 90656; 99212 ==

== ENCOUNTER 2025-02-02 10:50 | Outpatient (AMB) | payer MEDICARE, SELFPAY ==
--- NOTE | 2025-02-02 11:09 | MHC.OFFVIS ---
Vital Signs 02/02/25 11:18 Height 6 ft Weight 205 lb 0.478 oz BMI 27.8 Pulse 72 Intake Visit Reasons: sebaceous eye cyst Intake Note: Patient is seen in office for evaluation of a cyst in the eye. Pt c/o: lump under the left eye for aprox 10 months, has increase in size, pain at times/sore, obstructing his view, denies redness, discharge Treating Inspector Required: No Accompanied by: Spouse Allergies No Known Allergies Allergy (Verified 02/02/25 11:15) HPI Comments Details: 64-year-old male patient presenting for evaluation of a sebaceous cyst around the eye. He is well known to the service with a previous history of peripheral vascular disease status post right 1st and 2nd toe amputation on 01/06/2022. His past history is also significant for alcohol related cirrhosis, type 2 diabetes, hyperlipidemia, essential hypertension, peripheral vascular disease. He previously underwent cholecystostomy tube followed by cholecystectomy and TIPS procedure at [facility]. His last INR at [facility] was 1.2 (November 2024). He developed a cyst below the left eye which has now increased in size causing some difficulty and looking down due to the mass. He denies any history of infection, bleeding or discharge from the site. He is requesting excision of this large sebaceous cyst. [facility] Medical History Acute cholecystitis due to biliary calculus Acute cholecystitis Gallstones Bacteremia Alcohol use Wet gangrene Acidosis, lactic Leukocytosis Type 2 diabetes mellitus with hyperglycemia Lesion of right eyelid Colon cancer screening Constipation Guaiac + stool Fatty liver Cholelithiasis Hypertension Erectile dysfunction Hypercholesterolemia Thrombocytopenia Knee osteoarthritis Obesity (BMI 30-39.9) Surgical History S/P TIPS (transjugular intrahepatic portosystemic shunt) History of total left knee replacement History of amputation of toe (01/06/22) Hx of colonoscopy History of left knee surgery Family History Family/Other Medical history unknown Social History Household Members: Significant Other Housing: House Do you presently have visiting nurse or other home services: Yes Patient Tobacco Use Status: Never used Tobacco Tobacco use type: Cigarette e-Cigarette/Vaping Use: Never Used Second Hand Smoke Exposure: No service: No Current occupational status: employed Current occupational exposures/hazards: No Cognitive needs: No Hearing needs: No Vision needs: Yes Review of Systems Const All systems reviewed & are unremarkable except as noted in HPI and below Physical Exam Vital Signs: Last Vital Signs Pulse 72 02/02/25 11:18 BMI result Body Mass Index 27.8 Const General: no acute distress Nutritional Appearance: well nourished Orientation/consciousness: patient oriented x3 HEENT Other: 2 cm sebaceous cyst located below the left eye as noted below. There is a central punctum but no discharge noted. Site is nontender to palpation. Head images:  1. Site of 2 cm epidermal inclusion cyst/sebaceous cyst, left lower eyelid Eyes Other: Sclerae nonicteric Resp Effort & Inspection: normal respiratory effort, no audible wheezes, no cough and no respiratory distress Skin Other: Warm, dry, no rash Neuro General: patient oriented x3 Extrem Other: No edema Assessment & Plan Assessment & Plan (1) Sebaceous cyst: Comment: infraorbital, left Code(s): L72.3 - Sebaceous cyst Category: Medical Plan 64-year-old male patient well known to me presenting with a large sebaceous cyst below the left eyelid measuring approximately 2 cm in diameter. Patient has requested excision of this large sebaceous cyst and after discussion of the procedure, risks, and alternatives, he consents to excision of the left orbital sebaceous cyst. This will be performed as a short-stay surgery under anesthesia. Coding Level of Care Code Est Pt Level 4 (73455) Diagnoses Sebaceous cyst L72.3
[2025-02-02 11:18] VITALS: PULSE 72; BMI 27.8
--- OUTSIDE RECORDS SUMMARY | 2025-02-02 12:58 | XMS_ITS | Encounter Summary ---
Author Organization [facility] Address [address] [place] [address] Care Team Providers Care Shipbuilding Draftsperson Name Role Phone Jade Harper Primary Care Provider [phone] Encounter Details Date Type Department Care Team (Late st Contact Info) Description 04/21/2024 Orders Only [facility] Interventional Radiology [address] [place] [address] Sonia Khoury NP [address] [place] [address] Social History Tobacco Use Types Packs/Day Years Used Date Smoking Tobacco: Never Smokeless Tobacco: Never Alcohol Use Standard Drinks/Week Comments Not Currently 8 (1 standard drink = 0.6 oz pur e alcohol) sober since 11/2023 [facility] Utilities Answer Date Recorded In the past 12 months has [employer] electric, gas, oil, or water [employer] threatened to shut off services in your [...] Description 03/20/2025 9:45 AM EST Appointment [facility] Ultrasound [address] [place] [address] 04/28/2025 3:30 PM EST Follow-Up [facility]- [facility] Liver Transplant Services [address] [place] [address] Mike Low MD [address] [place] [address] documented as of this encounter Visit Diagnoses Not on filedocumented in this encounter Care Teams Shipbuilding Draftsperson Relationship Specialty Start Date End Date Jade Harper [address] [place] [address] [place] [address] PCP - General Internal Medicine 03/06/24 documented as of this encounter
--- OUTSIDE RECORDS SUMMARY | 2025-02-02 12:58 | XMS_ITS | Encounter Summary ---
Author Organization [facility] Address [address] [place] [address] Care Team Providers Care Still Tender Name Role Phone Jade Harper Primary Care Provider [phone] Encounter Details Date Type Department Care Team (Late st Contact Info) Description 04/18/2024 Orders Only [facility] Interventional Radiology [address] [place], [place] [id number] Malathi Brambila MD [address] [place] [address] Social History Tobacco Use Types [...] Info) Description 03/20/2025 9:45 AM EST Appointment [facility] Ultrasound [address] [place] [address] 04/28/2025 3:30 PM EST Follow-Up [facility] Liver Transplant Services [address] [place] [address] Mike Low MD [address] [place] [address] documented as of this encounter Visit Diagnoses Not on filedocumented in this encounter Care Teams Still Tender Relationship Specialty Start Date End Date Jade Harper [address] [place] [address] [place] [address] PCP - General Internal Medicine 03/06/24 documented as of this encounter
--- OUTSIDE RECORDS SUMMARY | 2025-02-02 12:58 | XMS_ITS ---
Author Organization [facility] Address [address] [place] [address] Care Team Providers Care Engineering Programmer Name Role Phone Jade Harper Primary Care Provider [phone] Transplant Episode Liver Candidate [facility] ([place], [place]) - [facility] waitlisted on 05/02/2024 Marked as Inactive on 05/29/2024 Reason: Temporarily too Well Liver CoordinatorLorie Mahoney RN Phone: N/A Fax: N/A Email: N/A Scores Score Value Updated Expires Exceptions/Clare sons CPRA Not available UNOS MELD 6 MELD (Calc) 14 12/19/2024 [facility] Diagnosis Organ Primary Contributory Liver Cirrhosis: Metabolic Dysfunction and Alcohol-Related/Associated Liver Disease (MetALD) Care Team Name Role Phone Fax Email Lorie Mahoney RN Liver Coordinator N/A N/A N/A Santos Khan Referring Physician [phone] N/A Ward Pina Referring Physician [phone] N/A Mike Low MD Freight Service Inspector [phone] [email or web address] Events Pre-Transplant Referred: 03/06/2024 Evaluation began: 03/18/2024 Committee: 05/01/2024 Center waitlisted: 05/02/2024
--- OUTSIDE RECORDS SUMMARY | 2025-02-02 12:58 | XMS_ITS | Encounter Summary ---
Author Organization [facility] Address [address] [place] [address] Care Team Providers Care Labor Custodian Name Role Phone Jade Harper Primary Care Provider [phone] Encounter Details Date Type Department Care Team (Late st Contact Info) Description 12/01/2024 Results Follow-Up [facility] Liver Transplant Services [address] [place], [place] [phone] Lorie Mahoney RN Social History Tobacco Use Types Packs/Day Years Used Date Smoking Tobacco: Never Smokeless Tobacco: Never Alcohol Use Standard Drinks/Week Comments Not Currently 8 (1 standard drink = 0.6 oz pur e alcohol) sober since 11/2023 [facility] Utilities Answer Date Recorded In the past 12 months has [employer], gas, oil, or water [employer] threatened to shut off services in your [...] Info) Description 03/20/2025 9:45 AM EST Appointment [facility] Ultrasound [address] [place] [address] 04/28/2025 3:30 PM EST Follow-Up [facility]- [facility] Liver Transplant Services [address] [place] [address] Mike Low MD [address] [place] [address] documented as of this encounter Visit Diagnoses Not on filedocumented in this encounter Care Teams Labor Custodian Relationship Specialty Start Date End Date Jade Harper [address] [place] [address] [place] [address] PCP - General Internal Medicine 03/06/24 documented as of this encounter
--- OUTSIDE RECORDS SUMMARY | 2025-02-02 12:59 | XMS_ITS | Encounter Summary ---
Author Organization [facility] Address [address] [place] [address] Care Team Providers Care Implementation Consultant Name Role Phone Jade Harper Primary Care Provider [phone] Encounter Details Date Type Department Care Team (Late st Contact Info) Description 06/25/2024 Orders Only [facility] Interventional Radiology [address] [place], [place] [phone] Jose Alberto Dimas NP [address] [place], [place] [phone] Social History Tobacco Use Types Packs/Day Years [...] Info) Description 03/20/2025 9:45 AM EST Appointment [facility] Ultrasound [address] [place] [address] 04/28/2025 3:30 PM EST Follow-Up [facility]- [facility] Liver Transplant Services [address] [place] [address] Mike Low MD [address] [place] [address] documented as of this encounter Visit Diagnoses Not on filedocumented in this encounter Care Teams Implementation Consultant Relationship Specialty Start Date End Date Jade Harper [address] [place] [address] [place] [address] PCP - General Internal Medicine 03/06/24 documented as of this encounter
--- OUTSIDE RECORDS SUMMARY | 2025-02-02 12:59 | XMS_ITS | Encounter Summary ---
Author Organization [facility] Address [address] [place] [address] Care Team Providers Care Customer Service Coordinator Name Role Phone Jade Harper Primary Care Provider [phone] Encounter Details Date Type Department Care Team (Late st Contact Info) Description 06/18/2024 Orders Only [facility] Interventional Radiology [address] [place] [address] Sarah Melgar, JULIANE [address] [place] [id number] Social History Tobacco Use Types Packs/Day Years Used Date Smoking Tobacco: Never Smokeless Tobacco: Never Alcohol Use Standard Drinks/Week Comments Not Currently 8 (1 standard drink = 0.6 oz pur e alcohol) sober since 11/2023 [facility] Utilities Answer Date Recorded In the past 12 months has [employer] electric, gas, oil, or water company threatened [...] Appointment [facility] Ultrasound [address] [place] [address] 04/28/2025 3:30 PM EST Follow-Up [facility] Liver Transplant Services [address] [place] [address] Mike Low MD [address] [place] [address] documented as of this encounter Visit Diagnoses Not on filedocumented in this encounter Care Teams Customer Service Coordinator Relationship Specialty Start Date End Date Jade Harper [address] [place] [address] [place] [address] PCP - General Internal Medicine 03/06/24 documented as of this encounter
--- OUTSIDE RECORDS SUMMARY | 2025-02-02 12:59 | XMS_ITS | Encounter Summary ---
Author Organization [facility] Address [address] [place] [address] Care Team Providers Care High Speed Operator Name Role Phone Jade Harper Primary Care Provider [phone] Encounter Details Date Type Department Care Team (Late st Contact Info) Description 12/19/2024 Results Follow-Up [facility] Liver Transplant Services [address] [place], [place] [phone] Alondra Aceves RN Social History Tobacco Use Types Packs/Day Years Used Date Smoking Tobacco: Never Smokeless Tobacco: Never Alcohol Use Standard Drinks/Week Comments Not Currently 8 (1 standard drink = 0.6 oz pur e alcohol) sober since 11/2023 [facility] Utilities Answer Date Recorded In the past 12 months has [employer], gas, oil, or water [employer] threatened to shut off services in your [...] Info) Description 03/20/2025 9:45 AM EST Appointment [facility] Ultrasound [address] [place] [address] 04/28/2025 3:30 PM EST Follow-Up [facility]- [facility] Liver Transplant Services [address] [place] [address] Mike Low MD [address] [place] [address] documented as of this encounter Visit Diagnoses Not on filedocumented in this encounter Care Teams High Speed Operator Relationship Specialty Start Date End Date Jade Harper [address] [place] [address] [place] [address] PCP - General Internal Medicine 03/06/24 documented as of this encounter
--- OUTSIDE RECORDS SUMMARY | 2025-02-02 12:59 | XMS_ITS | Encounter Summary ---
Author Organization [facility] Address [address] [place] [address] Care Team Providers Care Development Team Lead Name Role Phone Jade Harper Primary Care Provider [phone] Encounter Details Date Type Department Care Team (Late st Contact Info) Description 04/30/2024 Orders Only [facility] Interventional Radiology [address] [place] [address] Alondra Sage NP [address] [place] [address] Social History Tobacco Use Types Packs/Day Years Used Date Smoking Tobacco: Never Smokeless Tobacco: Never Alcohol Use Standard Drinks/Week Comments Not Currently 8 (1 standard drink = 0.6 oz pur e alcohol) sober since 11/2023 [facility] Utilities Answer Date Recorded In the [...] Info) Description 03/20/2025 9:45 AM EST Appointment [facility] Ultrasound [address] [place] [address] 04/28/2025 3:30 PM EST Follow-Up [facility] Liver Transplant Services [address] [place] [address] Mike Low MD [address] [place] [address] documented as of this encounter Visit Diagnoses Not on filedocumented in this encounter Care Teams Development Team Lead Relationship Specialty Start Date End Date Jade Harper [address] [place] [address] [place] [address] PCP - General Internal Medicine 03/06/24 documented as of this encounter
--- OUTSIDE RECORDS SUMMARY | 2025-02-02 12:59 | XMS_ITS | Encounter Summary ---
Author Organization [facility] Address [address] [place] [address] Care Team Providers Care Event Sales Representative Name Role Phone Jade Harper Primary Care Provider [phone] Encounter Details Date Type Department Care Team (Late st Contact Info) Description 07/01/2024 Orders Only [facility] Interventional Radiology [address] [place], [place] [phone] Keegan Duvall MD [address] [facility] [place] [address] Social History Tobacco Use Types Packs/Day Years Used Date Smoking Tobacco: Never Smokeless Tobacco: Never Alcohol Use Standard Drinks/Week Comments Not Currently 8 (1 standard drink = 0.6 oz pur e alcohol) sober since 11/2023 [facility] Utilities Answer Date Recorded In the [...] Info) Description 03/20/2025 9:45 AM EST Appointment [facility] Ultrasound [address] [place] [address] 04/28/2025 3:30 PM EST Follow-Up [facility] Liver Transplant Services [address] [place] [address] Mike Low MD [address] [place] [address] documented as of this encounter Visit Diagnoses Not on filedocumented in this encounter Care Teams Event Sales Representative Relationship Specialty Start Date End Date Jade Harper [address] [place] [address] [place] [address] PCP - General Internal Medicine 03/06/24 documented as of this encounter
--- OUTSIDE RECORDS SUMMARY | 2025-02-02 12:59 | XMS_ITS | Encounter Summary ---
Author Organization [facility] Address [address] [place] [address] Care Team Providers Care Low Raw Sugar Cutter Name Role Phone Jade Harper Primary Care Provider [phone] Encounter Details Date Type Department Care Team (Late st Contact Info) Description 05/07/2024 Orders Only [facility] Interventional Radiology [address] [place] [address] Sarah Melgar, JULIANE [address] [place] [address] [id number] Social History Tobacco Use Types Packs/Day Years Used Date Smoking Tobacco: Never Smokeless Tobacco: Never Alcohol Use Standard Drinks/Week Comments Not Currently 8 (1 standard drink = 0.6 oz pur e alcohol) sober since 11/2023 [facility] Utilities Answer Date Recorded In the past 12 months has [employer] electric, gas, oil, or water company threatened [...] Info) Description 03/20/2025 9:45 AM EST Appointment [facility] Ultrasound [address] [place] [address] 04/28/2025 3:30 PM EST Follow-Up [facility] Liver Transplant Services [address] [place] [address] Mike Low MD [address] [place] [address] documented as of this encounter Visit Diagnoses Not on filedocumented in this encounter Care Teams Low Raw Sugar Cutter Relationship Specialty Start Date End Date Jade Harper [address] [place] [address] [place] [id number] PCP - General Internal Medicine 03/06/24 documented as of this encounter
--- OUTSIDE RECORDS SUMMARY | 2025-02-02 12:59 | XMS_ITS | Clinical Summary ---
Author Organization [facility] Address [address] [place] [address] Care Team Providers Care Acute Care Nurse Practitioner Name Role Phone Jade Harper Primary Care Provider [phone] Allergies No known active allergies Medications acetaminophen (TYLENOL) 500 mg tablet Take 500 mg by mouth every 6 hours as needed for pain. Active midodrine (PROAMATINE) 5 mg tablet Take 3 tablets (15 mg total) by mouth every 8 hours. 810 tablet 3 5 05/15/19 26 Active rifAXIMin (XIFAXAN) 550 mg tablet Take 1 tablet (550 mg total) by mouth every 12 hours. 180 tablet 3 5 07/31/19 26 Active ciprofloxacin (CIPRO) 500 mg tablet Take 500 mg by mouth every 24 hours. Active furosemide (LASIX) 20 mg tablet Take 1 tablet (20 mg total) by mouth once a day. 30 tablet 2 5 Active spironolactone (ALDACTONE) 50 mg tablet Take 1 tablet (50 mg total) by mouth once a day. 30 tablet 2 5 Active ondansetron (ZOFRAN ODT) 4 mg disintegrating tablet DISSOLVE 1 TABLET IN THE MOUTH EVERY 8 HOURS NEEDED FOR NAUSEA OR VOMITING. 72 tablet 1 5 Active lactulose 10 gram/15 mL solution Take 45 mL (30 g total) by mouth 2 (two) times a day. 12/20/19 Active Active Problems Problem Noted Date Diagnosed Date [...] on diuretics as above. Previous paracenteses in March/Apr 2024 HE: history of HE, now on [...] to no tappable pocket. Last para was 3/14 with 450 mL removed without evidence of infection. Patient without considerable ascites on exam on admission 07/02/24 Assessment & Plan (07/02/2024 7:34 AM EDT): Underwent IR TIPS 06/11/24 for recurrent ascites with ultimate plan for cholecystectomy. Last seen by IR 4/4 for routine therapeutic paracentesis, which was not performed due to no tappable pocket. Last para was 3/14 with 450 mL removed without evidence of [...] - Plan for diagnostic and therapeutic paracentesis 3 - Plan for stent exchange in cystic duct 2 unless can be moved earlier, will preemptively [...] Type Department Care Team Description 12/30/2024 Telephone [facility] Transplant Department [address] [place] [address] Selin Johnson CPhT Prior Authorization 12/19/2024 11:09 AM EDT - 12/19/2024 11:59 PM EDT Hospital Encounter [facility] Xray [address] [place] [address] S/P umbilical hernia repair, follow-up exam; Alcoholic cirrhosis of liver with ascites (HCC); S/P laparoscopic cholecystectomy; SBP (spontaneous bacterial peritonitis) (HCC); Shortness of breath Discharge Disposition: Home or Self Care () 12/19/2024 10:30 AM EDT Follow-Up [facility] [address] [place] [address] Mike Low MD S/P umbilical hernia repair, follow-up exam (Primary Dx); Alcoholic cirrhosis of liver with ascites (HCC); S/P laparoscopic cholecystectomy; SBP (spontaneous bacterial peritonitis) (HCC); Shortness of breath 12/19/2024 Results Follow-Up [facility] [address] [place] [phone] Alondra Aceves RN 12/19/2024 myChart Message [facility] [address] [place] [phone] Mike Low MD chest xray 12/12/2024 Telephone [facility] Transplant Department [address] [place] [address] Selin Johnson CPhT Prior Authorization 12/01/2024 1:30 PM EDT Follow-Up [facility] [address] [place] [address] 57334 Alee Conteh NP S/P umbilical hernia repair, follow-up exam (Primary Dx) 12/01/2024 Results Follow-Up [facility] [address] [place] [address] [phone] Lorie Mahoney RN 11/28/2024 Orders Only [facility] Transplant Department [address] [place] [address] [phone] Lorie Mahoney RN Alcoholic cirrhosis of liver with ascites (HCC) (Primary Dx) 11/11/2024 7:50 AM EDT Anesthesia Event [facility] Operating Room [address] [place] [address]107 Weston Cruz, Pedro Kam, 11/11/2024 7:05 AM EDT - 11/11/2024 10:25 AM EDT Surgery [facility] Operating Room [address] [place] [phone] Heaven Erwin MD MPH Repair Anterior Abdominal Hernia, Initial <3cm, Reducible [98721 (CPT )] 11/11/2024 5:43 AM EDT - 11/11/2024 12:36 PM EDT Hospital Encounter [facility] Operating Room [address] [place] [address] Heaven Erwin MD MPH Umbilical hernia without obstruction and without gangrene Discharge Disposition: Home or Self Care (01) 11/07/2024 10:30 AM EDT Follow-Up [facility] [address] [place] [address] 67170 Heaven Erwin MD MPH Alcoholic cirrhosis of liver with ascites (HCC) (Primary Dx); S/P laparoscopic cholecystectomy; Umbilical hernia without obstruction and without gangrene 11/07/2024 Telephone [facility] Transplant Department [address] [place] [phone] Heaven Erwin MD MPH 11/07/2024 Prep for Case [facility] Transplant Department [address] [place] [address] Heaven Erwin MD MPH Umbilical hernia without obstruction and without gangrene (Primary Dx) from Last 3 Months Immunizations [...] oz pur e alcohol) sober since 11/2023 [facility] Utilities Answer Date Recorded In the past 12 months has [employer], gas, oil, or water [employer] threatened to shut off services in your [...] Info) Description 03/20/2025 9:45 AM EST Appointment [facility] Ultrasound [address] [place] [address] 04/28/2025 3:30 PM EST Follow-Up [facility] [address] [place] [address] Mike Low MD [address] [place] [address] Health Maintenance Due Date Last Done Comments [...] Additional history exists Influenza Vaccine (#1) 2024 , 01/10/2023, 12/28/2020, Additional history exists Social Drivers of Health Daniela ual Screening 09/16/2025 09/16/2024 Fall Risk Screening 12/01/2025 12/01/2024 Basic Metabolic Panel 12/19/2025 12/19/2024 , 12/01/2024, 10/09/2024, Additional history exists DTaP,Tdap,and Td Vaccines (2 - Td or Tdap) 01/03/2027 01/03/2017 Diabetes Screening 12/20/2027 12/19/2024, 0 12/01/2024, 10/09/2024, Additional history exists Zoster Vaccines Completed 07/23/2021, 03/10/2021 Pneumococcal Vaccine: 50+ Years Completed 2 HIV Screening Completed 04/17/2024 Hepatitis C Screening Completed 04/17/2024 Alcohol/Substance Use Screening Completed 5 Medical Devices Implanted Type Area Firer Portable Boiler Device Identifier Shelf Expiration Date Model / Serial / Lot Kit Set Access Tips Bd [employer] - [id number] Implanted:Qty: 1 on 06/11/2024 by James Pyle MD PhD at [facility] Implant DORON LASHONDA [id number] 06/17/2026 [id number] / / [id number] Stent Vascular Endoprosthesis With Controlled Expansion 10fr 8mm-21ibd8ss [facility] - [id number] - [id number] Implanted:Qty: 1 on 06/11/2024 by James Pyle MD PhD at [facility] Implant W L GORE [id number] 02/14/2027 PTB [id number] / [id number] / Vascular Plug For Peripheral Vascular Occlusion 18mm - [id number] Implanted:Qty: 1 on 06/11/2024 by James Pyle MD PhD at [facility] Implant [employer] [id number] 10/24/2027 9-AVP2-0 [id number] Set Stent Biliary Self Expanding Pigtail Double [id number] [facility] Szebd-7-15 Or [id number] - [id number] Implanted:Qty: 1 on 07/03/2024 by Rachel Murray MD at [facility] Stent N/A: Bile Duct [employer] [id number] 01/14/2027 [id number] / [id number]-7-1 5 OR [id number] / [id number] Set Stent Biliary Self Expanding Pigtail Double [id number] [facility] Szmukeshd-7-15 - [id number] Implanted:Qty: 1 on 07/03/2024 by Rachel Murray MD at [facility] Stent N/A: Bile Duct [employer] [id number] 01/14/2027 [id number] / ZEBD-7-1 5 / [id number] Explanted Type Area Firer Portable Boiler Device Identifier Shelf Expiration Date Model / Serial / Lot Stent Advanix Pancreatic Pigtail Lb 5fr X 7cm - [id number] - [id number] Explanted:Qty: 1 on 04/29/2024 by Rachel Murray MD at [facility] Stent [employer] 04/09/2025 [id number] / [id number] / [id number] Stent Biliary Rx Fully Covered Self Expanding Metallic Rmv With Permalume Covering 8.5fr [id number] [employer] - [id number] Implanted:Qty: 1 on 04/29/2024 by Rachel Murray MD at [facility] Explanted:Qty: 1 on 07/03/2024 by Rachel Murray MD at [facility] Stent N/A: Bile Duct [employer] 12/27/2025 [id number] / / [id number] Stent Biliary Double Pigtail Polyethylene Purple 7fr 5cm [employer] - [id number] - [id number] Implanted:Qty: 1 on 05/02/2024 by Rachel Murray MD at [facility] Explanted:Qty: 1 on 07/03/2024 by Rachel Murray MD at [facility] Stent N/A: Bile Duct [employer] 06/28/2025 [id number] / [id number] / [id number] Description:PLACED IN CYSTIC DUCT Stent Biliary Double Pigtail W/Introducer 10fr 4cm Solus - [id number] - [id number] Implanted:Qty: 1 on 05/02/2024 by Rachel Murray MD at [facility] Explanted:Qty: 1 on 07/03/2024 by Rachel Murray MD at [facility] Stent N/A: Bile Duct [employer] 05/02/2025 [id number] / [id number] / Description:PLACED IN CBD Procedures * Due to [place] state law, this organization might not be [...] Umbilical hernia without obstruction and without gangrene MS REPAIR ANT ABD HERNIA ANY APPR W MESH T LENGTH DEFECT EQUD6ST REDUC 11/11/2024 7:25 AM EDT Umbilical hernia without obstruction and without gangrene HEPATITIS C ANTIBODY W/REFLEX TO HCV RNA, QUANTITATIVE PCR Routine 04/17/2024 9:32 AM EST from Last 3 Months or Most Recently Relevant to Health Maintenance Results * Due to [place] state law, this organization might not be sharing negative HIV tests. * (ABNORMAL) Protime-INR (12/19/2024 11:25 AM EDT) Only the most recent of2 resultswithin the time period is included. PT 13.6(H) 9.6 - 12.4 Seconds 12/19/2024 11:59 AM EDT [facility] INR 1.3 0.9 - 1.1 12/19/2024 11:59 AM EDT [facility] Comment:The optimal therapeu tic INR range for patients treated with Vitamin K antagonists (VKAS, e.g., Warfarin) is 2.0 to 3.5. Discuss the desired range with your doctor/care team. Blood Structure of peripheral vein / Unknown Venipuncture / Unknown 12/19/2024 11:25 AM EDT 12/19/2024 11:40 AM EDT Mike Low MD LAB BLOOD ORDERABLES Fin al Result [facility]ITALVerisante TechnologyMA [facility] [address] [place] [address], * (ABNORMAL) CBC (12/19/2024 11:25 AM EDT) WBC 5.4 3.8 - 10.8 10*3/uL 12/19/2024 11:48 AM EDT [facility] RBC 3.64(L) 4.20 - 5.80 10*6/uL 12/19/2024 11:48 AM EDT [facility] Hemoglobin 12.4(L) 13.2 - 17.1 g/dL 12/19/2024 11:48 AM EDT [facility] Hematocrit 34.9(L) 38.5 - 50.0 % 12/19/2024 11:48 AM EDT [facility] MCV 95.9 80.0 - 100.0 fL 12/19/2024 11:48 AM EDT [facility] MCH 34.1(H) 27.0 - 33.0 pg 12/19/2024 11:48 AM EDT [facility] MCHC 35.5 32.0 - 36.0 g/dL 12/19/2024 11:48 AM EDT [facility] RDW 15.0 11.0 - 15.0 % 12/19/2024 11:48 AM EDT [facility] Platelets 110(L) 140 - 400 10*3/uL 12/19/2024 11:48 AM EDT [facility]ITALDall[facility] MedicalAD[facility] [employer] [facility] MPV 10.8 7.5 - 12.5 fL 12/19/2024 11:48 AM EDT [facility]ITALDallen MedicalBUCYR[facility] [employer] [facility] Blood Structure of peripheral vein / Unknown Venipuncture / Unknown 12/19/2024 11:25 AM EDT 12/19/2024 11:40 AM EDT Mike Low MD LAB BLOOD ORDERABLES Fin al Result [facility] [employer] [facility] LAB[facility] [address] [place] [address], * (ABNORMAL) Hepatic Function Panel (12/19/2024 11:25 AM EDT) Total Protein 6.8 6.0 - 8.0 g/dL 12/19/2024 12:11 PM EDT [employer] Albumin 3.6 3.5 - 5.2 g/dL 12/19/2024 12:11 PM EDT [facility]17[facility]MA [facility] [employer] [facility] Globulin, Total 3.2 2.1 - 4.2 g/dL 12/19/2024 12:11 PM EDT [facility]ITALD[facility] MedicalBU[facility] [employer] [facility] Bilirubin, Total 2.9(H) 0.2 - 1.2 mg/dL 12/19/2024 12:11 PM EDT [facility]ITALVerisante TechnologyMA [facility] [employer] [facility] [facility] Bilirubin, Direct 1.1(H) <=0.4 mg/dL 12/19/2024 12:11 PM EDT [employer] [employer] [facility] Alkaline Phosphatase 241(H) 35 - 129 U/L 12/19/2024 12:11 PM EDT [facility]ITALDallen MedicalAD[facility] [employer] [facility] AST 45(H) 10 - 40 U/L 12/19/2024 12:11 PM EDT [facility] MedicalAD[facility] [employer] [facility] ALT 31 10 - 40 U/L 12/19/2024 12:11 PM EDT [facility] Bilirubin, Indirect 1.80(H) <=0.70 mg/dL 12/19/2024 12:11 PM EDT [facility] A/G Ratio 1.1(L) 1.5 - 3.0 12/19/2024 12:11 PM EDT [employer] [facility] Blood Structure of peripheral vein / Unknown Venipuncture / Unknown 12/19/2024 11:25 AM EDT 12/19/2024 11:40 AM EDT Mike Low MD LAB BLOOD ORDERABLES Fin al Result [facility] [address] [place] [address], * (ABNORMAL) Basic Metabolic Panel (12/19/2024 11:25 AM EDT) NA 136 135 - 145 mmol/L 12/19/2024 12:11 PM EDT [facility] K 4.3 3.5 - 5.3 mmol/L 12/19/2024 12:11 PM EDT [facility] Cl 104 98 - 107 mmol/L 12/19/2024 12:11 PM EDT [facility] CO2 23 22 - 32 mmol/L 12/19/2024 12:11 PM EDT [facility] BUN 15 7 - 23 mg/dL 12/19/2024 12:11 PM EDT [facility] Creatinine 0.86 0.60 - 1.30 mg/dL 12/19/2024 12:11 PM EDT [facility] Glucose 117(H) 65 - 99 mg/dL 12/19/2024 12:11 PM EDT [facility] Calcium 9.8 8.6 - 10.5 mg/dL 12/19/2024 12:11 PM EDT [facility] Anion Gap 9 5 - 15 12/19/2024 12:11 PM EDT [facility] eGFR >90 >=60 mL/min/1. 73m2 12/19/2024 12:11 PM EDT [facility] Comment:The estimated glomer ular [...] MD LAB BLOOD ORDERABLES Fin al Result [facility] LAB[facility] [address] [place] [address], [place] * X-Ray Chest 2 Views (12/19/2024 11:15 [...] to obtain the completed interpretation. Workstation ID: [id number] Narrative 12/21/2024 4:05 PM EDT COMPARISON: 07/03/2024 FINDINGS AND Resulting Agency Comment [id number] Procedure Note Jeyson Silva MD - 12/21/2024 COMPARISON: 07/03/2024 FINDINGS AND IMPRESSION: No change. Heart size normal. Lungs and pleural spaces clear. Mild DJD inthe dorsal spine. If this radiology report contains a blank impression section, it is anincomplete radiology report. Please contact the interpreting radiologistor applicable radiology division as soon as possible to obtain thecompleted interpretation. Workstation ID: [id number] Mike Low MD IMG XR PROCEDURES Final Result * (ABNORMAL) CBC Auto Differential (12/01/2024 12:48 PM EDT) WBC 4.9 3.8 - 10.8 10*3/uL 12/01/2024 1:13 PM EDT [facility] [employer] [facility] [facility] RBC 3.66(L) 4.20 - 5.80 10*6/uL 12/01/2024 1:13 PM EDT [facility] Hemoglobin 12.5(L) 13.2 - 17.1 g/dL 12/01/2024 1:13 PM EDT [facility] Hematocrit 34.9(L) 38.5 - 50.0 % 12/01/2024 1:13 PM EDT [facility] MCV 95.4 80.0 - 100.0 fL 12/01/2024 1:13 PM EDT [facility] MCH 34.2(H) 27.0 - 33.0 pg 12/01/2024 1:13 PM EDT [facility] MCHC 35.8 32.0 - 36.0 g/dL 12/01/2024 1:13 PM EDT [facility] RDW 15.1(H) 11.0 - 15.0 % 12/01/2024 1:13 PM EDT [facility] Platelets 109(L) 140 - 400 10*3/uL 12/01/2024 1:13 PM EDT [facility] MPV 10.1 7.5 - 12.5 fL 12/01/2024 1:13 PM EDT [facility] Neutrophil % 56.9 % 12/01/2024 1:13 PM EDT [facility] Immature Grans % 0.2 0.0 - 0.9 % 12/01/2024 1:13 PM EDT [facility] Lymphocyte % 25.1 % 12/01/2024 1:13 PM EDT [facility] Monocyte % 13.0 % 12/01/2024 1:13 PM EDT [facility] Eosinophil % 3.8 % 12/01/2024 1:13 PM EDT [facility] Basophil % 1.0 % 12/01/2024 1:13 PM EDT [facility] Neutrophil # 2.81 1.50 - 7.80 10*3/uL 12/01/2024 1:13 PM EDT [facility] Immature Grans # <0.03 <=0.03 10*3/uL 12/01/2024 1:13 PM EDT [facility] Lymphocyte # 1.20 0.85 - 3.90 10*3/uL 12/01/2024 1:13 PM EDT [facility] Monocyte # 0.60 0.20 - 0.95 10*3/uL 12/01/2024 1:13 PM EDT [facility] Eosinophil # 0.20 0.02 - 0.50 10*3/uL 12/01/2024 1:13 PM EDT [facility] Basophil # 0.10 0.00 - 0.20 10*3/uL 12/01/2024 1:13 PM EDT [facility] nRBC % 0.0 /100 WBCs 12/01/2024 1:13 PM EDT [facility] [employer] [facility] nRBC # <0.01 <0.01 10*3/uL 12/01/2024 1:13 PM EDT [facility] [employer] [facility] Blood Structure of peripheral vein / Unknown Venipuncture / Unknown 12/01/2024 12:48 PM EDT 12/01/2024 1:05 PM EDT Mike Low MD LAB BLOOD ORDERABLES Fin al Result [facility] [employer] [facility] LAB[facility] [address] [place] [address], [place] * AFP tumor marker (12/01/2024 12:48 PM EDT) Pathologist [facility] Alpha Fetoprotein, Tumor Marker 3.3 <6.1 ng/mL 12/02/2024 12:12 PM EDT [employer] [facility] Comment: This test was performed using the Mary Lou Erik chemiluminescent method. Values obtained from different assay methods cannot be used interchangeably. AFP levels, regardless of value, should not be interpreted as absolute evidence of the presence or absence of disease. Blood Structure of peripheral vein / Unknown Venipuncture / Unknown 12/01/2024 12:48 PM EDT 12/01/2024 1:05 PM EDT [facility] 12/02/2024 12:12 PM EDT [facility] Received Date:[id number] Mike Low MD LAB BLOOD ORDERABLES Fin al Result [facility] [address], [place] [address], [employer] [facility] [address], [place] [address], * (ABNORMAL) Comprehensive Metabolic Panel (12/01/2024 12:48 PM EDT) Pathologist [facility] NA 138 135 - 145 mmol/L 12/01/2024 1:38 PM EDT [facility] [employer] [facility] K 4.7 3.5 - 5.3 mmol/L 12/01/2024 1:38 PM EDT [employer] [facility] Cl 105 98 - 107 mmol/L 12/01/2024 1:38 PM EDT [facility] CO2 23 22 - 32 mmol/L 12/01/2024 1:38 PM EDT [facility] Anion Gap 10 5 - 15 12/01/2024 1:38 PM EDT [facility] Glucose 117(H) 65 - 99 mg/dL 12/01/2024 1:38 PM EDT [facility] Creatinine 0.72 0.60 - 1.30 mg/dL 12/01/2024 1:38 PM EDT [facility] Calcium 9.7 8.6 - 10.5 mg/dL 12/01/2024 1:38 PM EDT [facility] Total Protein 6.7 6.0 - 8.0 g/dL 12/01/2024 1:38 PM EDT [facility] Albumin 3.5 3.5 - 5.2 g/dL 12/01/2024 1:38 PM EDT [facility] Bilirubin, Total 3.6(H) 0.2 - 1.2 mg/dL 12/01/2024 1:38 PM EDT [facility] Alkaline Phosphatase 230(H) 35 - 129 U/L 12/01/2024 1:38 PM EDT [facility] AST 51(H) 10 - 40 U/L 12/01/2024 1:38 PM EDT [facility] [employer] [facility] ALT 32 10 - 40 U/L 12/01/2024 1:38 PM EDT [facility] [employer] [facility] BUN 13 7 - 23 mg/dL 12/01/2024 1:38 PM EDT [facility] [employer] [facility] eGFR >90 >=60 mL/min/1. 73m2 12/01/2024 1:38 PM EDT [facility]ITALD[facility] MedicalAD[facility] [employer] [facility] Comment:The estimated glomer ular [...] - 4.2 g/dL 12/01/2024 1:38 PM EDT [facility]ITALD[facility] MedicalBU[facility] [employer] [facility] A/G Ratio 1.1(L) 1.5 - 3.0 12/01/2024 1:38 PM EDT [facility]ITALD[facility] MedicalAD[facility] [employer] [facility] Blood Structure of peripheral vein / Unknown Venipuncture / Unknown 12/01/2024 12:48 PM EDT 12/01/2024 1:05 PM EDT Mike Low MD LAB BLOOD ORDERABLES Fin al Result [facility] [employer] [facility] [address] [place] [address], * Tissue Exam (11/11/2024 8:37 AM EDT) Final Diagnosis Hernia Sac: - Fibromembranous and mature adipose tissue with mesothelial lining and chronic inflammatory infiltrate, consistent with hernia sac. - Negative for malignancy. [employer] [facility] 11/12/2024 2:03 PM EDT [employer] [facility] at 1403 EDT Clinical History Pre-op diagnosis: Umbilical hernia without obstruction and without gangrene [K42.9] [employer] [facility] 11/12/2024 2:03 PM EDT [facility]ATOM[facility] PATHOLOGY LABORATORY Gross Description 1. Hernia Sac, Hernia Sac Received in formalin, labeled with the patient's name, date of , medical record number, and hernia sac , is a red-pink fibromembranous tissue fragment (4.2 x 2.5 x 1.2 cm), with a smooth and glistening surface along 1 aspect. The specimen is sectioned, and counter sales representative sections are submitted in cassette 1A. [facility] MANUAL 11/12/2024 2:03 PM EDT [facility] PATHOLOG[facility] LABOR[facility] Gross Description User Grossing complete by Karissa Soto on 11/11/2024 2:24 PM [facility] MANUAL 11/12/2024 2:03 PM EDT [facility]ATOM[facility] PATHOLOGY LABOR[facility]ORY Embedded Images [facility] MANUAL 11/12/2024 2:03 PM EDT [facility] ANATOMIC PATHOLOGY LABORATORY Resulting Agency Case was signed out at [facility], Department of Pathology, [employer] CLIA [id number] [facility] MANUAL 11/12/2024 2:03 PM EDT [facility] [employer] [facility] ANATOMIC PATHOLOGY LABORATORY Report Header Surgical Pathology Report Case: [id number] Authorizing Provider: Heaven Erwin MD MPH Collected: 11/11/2024 0837 [facility] Received: 11/11/2024 [address] [place] [address] Operating Room Pathologist: Colette High MD Specimen: Hernia Sac 11/12/2024 2:03 PM EDT [facility] Tissue Hernia sac / Unknown 11/11/2024 8:37 AM EDT 11/11/2024 10:10 AM EDT Comment:Pre-op diagnosis: Umbilical hernia without obstruction and without gangrene [K42.9] us Heaven Erwin MD MPH LAB PATHOLOGY/CYTOLOGY O RDERABLES Final Result [facility] [address] [place] [address], [facility] [address] * Hepatitis C Antibody w/Reflex to HCV RNA, Quantitative PCR (04/17/2024 9:32 AM EST) Hepatitis C Antibody NON-REACT ALESIA NON-REACT ALESIA 04/17/2024 7:31 PM EST [facility] Comment: HCV antibody was non-reactive. There is no laboratory evidence of HCV infection. In most cases, no further action is required. However, if recent HCV exposure is suspected, a test for HCV RNA (test code 13510) is suggested. For additional information please refer to http://education.[employer]/faq/WEO01c8 (This link is being provided for informational/ educational purposes only.) Blood Structure of peripheral vein / Unknown Venipuncture / Unknown 04/17/2024 9:32 AM EST 04/17/2024 9:44 AM EST [facility] - 04/17/2024 7:31 PM EST [facility] Received Date: Delmis Joseph MD LAB BLOOD ORDERABLES Final Result [facility] [address] [facility] [address], [place] [address], [place] [phone] [employer] [facility] [address], [place] [address], [place] [phone] from Last 3 Months or Most Recently Relevant to Health Maintenance Insurance MEDICARE [facility] SUPP HSNO/FREE CARE MEDICARE [facility] SUPP Advance Directives Documents on File Type Date Recorded Patient Movie Editor Expl [facility] Health Care Proxy 04/17/2024 10:33 AM Abdelrahman Correa 0 04-16-2024 Power of Bookkeeping Assistant 04/17/2024 7:16 AM Health Care Proxy 04/16/2024 [...] Agents on File Name Relationship Healthcare Agent [facility] Communication Sana Correa Spouse Alternate Health Care Agent [email or web address] Care Teams Acute Care Nurse Practitioner Relationship Specialty Start Date End Date Jade Harper [address] [place] [address] dr Charly Parks, [place]AL[place] [address] PCP - General Internal Medicine 03/06/24
== END 2025-02-02 11:40 | disposition home or self-care (01) ==
LOC: HO.HGS 10:51
PROVIDERS: PCP Internal Medicine; Visit Provider Surgery
DX: L72.3 Sebaceous cyst (principal)
CPT/HCPCS: 99214

== ENCOUNTER → 2025-02-02 10:50 | Outpatient (BNVA) | payer MEDICARE, SELFPAY | PROVIDERS: PCP Internal Medicine; Visit Provider Surgery | DX: L72.3 Sebaceous cyst (principal) | CPT/HCPCS: 99212 ==

== ENCOUNTER → 2025-02-23 12:12 | Outpatient (BNV) | payer MEDICARE, SELFPAY | PROVIDERS: PCP Internal Medicine; Visit Provider Internal Medicine | DX: R94.31 Abnormal electrocardiogram [ECG] [EKG] (principal); Z01.818 Encounter for other preprocedural examination | CPT/HCPCS: 93010 ==

== ENCOUNTER 2025-03-04 07:34 | Day surgery (SDC) | payer MEDICARE, SELFPAY ==
[2025-02-17 10:46] VITALS: BMI 28.2
--- NOTE | 2025-02-17 14:39 | HO.ANESPROP2 ---
Documented by User: Lynne Lee NP 02/27/25 15:11 HPI - Anesthesia Eval Consult details Narrative: 64 yr old male for left?Excision of Orbital Sebaceous Cyst, scheduled 03/04/25; had phone PAT with RN INR 1.3 on 02/23/25 Medical clearance visit with on 02/23/25. s/p cholecystectomy 07/2024 s/p hernia repair 11/11/24 ETOH cirrhosis: on liver transplant list, no ETOH in 1 yr, follows [facility] GI, last visit 12/19/24; s/p TIPS 05/2024; had secondary bacterial peritonitis 08/2024 now managed with ciprofloxacin daily for prophylaxis; MELD 3.0 is 14, on diuretics to manage ascites H/O PAD --> s/p toe amputations in 2021 [facility] Active Problems Active Problems: All Active Problems S/P ERCP (Acute) Sebaceous cyst (Acute) History of cholecystectomy (Acute) History of biliary stent insertion (Acute) H/O spontaneous bacterial peritonitis (Acute) Alcoholic cirrhosis of liver (Acute) Ascites (Acute) RUQ abdominal pain (Acute) Peripheral vascular disease (Acute) Arthritis of left knee (Acute) Trigger ring finger of left hand (Acute) Cubital tunnel syndrome on left (Acute) Peripheral vascular disease (Acute) Carpal tunnel syndrome on left (Acute) Acute cephalic vein thrombosis (Acute) Amputation of toe of right foot (Acute) Osteomyelitis (Acute) Osteoarthritis of left knee (Acute) Annual physical exam (Acute) History of total left knee replacement (Acute) Cholelithiasis (Acute) Hypertension (Acute) Type 2 diabetes mellitus with hyperglycemia (Acute) Erectile dysfunction (Acute) Thrombocytopenia (Acute) Hypercholesterolemia (Acute) Past Medical History Medical History Arthritis Anemia Sepsis (~03/2023) Spontaneous bacterial peritonitis (~08/2024) Portal hypertension Detachment of percutaneous cholecystostomy tube (~01/2024) Acute cholecystitis due to biliary calculus Acute cholecystitis Gallstones Bacteremia Alcohol use Wet gangrene Acidosis, lactic Leukocytosis Type 2 diabetes mellitus with hyperglycemia Lesion of right eyelid Colon cancer screening Constipation Guaiac + stool Fatty liver Cholelithiasis Hypertension Erectile dysfunction Hypercholesterolemia Thrombocytopenia Knee osteoarthritis Obesity (BMI 30-39.9) Family History Family History Family/Other Medical history unknown Family history of problems with anesthesia: No Surgical History Surgical History Hx of umbilical hernia repair (~10/2024) Hx laparoscopic cholecystectomy (~07/2024) S/P ERCP (~06/2024) History of carpal tunnel release S/P TIPS (transjugular intrahepatic portosystemic shunt) (~05/2024) History of total left knee replacement History of amputation of toe (01/06/22) Hx of colonoscopy History of left knee surgery History of Problems with Anesthesia: No Social History Social History Household Members: Significant Other Housing: House Are you a primary lead caregiver to a significant other at home: No Do you presently have visiting nurse or other home services: No Patient Tobacco Use Status: Never used Tobacco Tobacco use type: Cigarette e-Cigarette/Vaping Use: Never Used Second Hand Smoke Exposure: No Use of substances other than those prescribed or required for medical reasons: No Have you been hit, kicked, punched, or otherwise hurt by someone within the past year? If so, by whom?: No Are you DNR?: No Advance Directives: No Advance Directives Information Provided: Yes Advance Directives on File: No service: No Current occupational status: employed Current occupational exposures/hazards: No Cognitive needs: No Hearing needs: No Vision needs: Yes Meds Allergies Allergy/AdvReac Type Severity Reaction Status Date / Time No Known Allergies Allergy Verified 03/04/25 08:01 Home Medications ?Medication ?Instructions ?Recorded ?Confirmed ?Last Taken ?Type acetaminophen 500 mg tablet 500 mg PO Q6H PRN Pain 05/28/24 02/23/25 Unknown History ciprofloxacin HCl 500 mg tablet 500 mg PO DAILY 05/28/24 02/23/25 03/04/25 06:30 History (Cipro) midodrine 5 mg tablet 15 mg PO TID 05/28/24 02/23/25 03/04/25 06:30 History rifaximin 550 mg tablet (Xifaxan) 550 mg PO BID 05/28/24 02/23/25 Unknown History furosemide 20 mg tablet (Lasix) 20 mg PO DAILY 01/05/25 02/23/25 Unknown History lactulose 10 gram/15 mL oral See Rx Instructions PO .COMPLEX 01/05/25 02/23/25 Unknown History solution spironolactone 50 mg tablet 25 mg PO DAILY 01/05/25 02/23/25 Unknown History Exam Height,Weight and Vital Signs: Height 6 ft Weight 94.347 kg Pertinent Lab Results Pertinent Lab Results: Laboratory Tests 02/23/25 12:08 WBC 5.5 RBC 4.18 L Hgb 14.2 Hct 39.3 L Plt Count 118 L Sodium 138 Potassium 4.6 BUN 15 Creatinine 0.76 Narrative Narrative: Stress Echo with Exercise 03/2024 No ECG evidence of ischemia Normal dobutamine stress echo with normal augmentation in LV contractility in all segments. Estimated peak stress LVEF >75% EKG 02/23/25 NSR, rate 71 Left axis deviation Minimal voltage criteria for LVH Assessment and Plan Final Anesthetic Review Family History of Problems with Anesthesia: No History of Problems with Anesthesia: No Documented by User: Breanna Peres MD 03/04/25 08:42 PMFSH Past Medical History Medical History Arthritis Anemia Sepsis (~03/2023) Spontaneous bacterial peritonitis (~08/2024) Portal hypertension Detachment of percutaneous cholecystostomy tube (~01/2024) Acute cholecystitis due to biliary calculus Acute cholecystitis Gallstones Bacteremia Alcohol use Wet gangrene Acidosis, lactic Leukocytosis Type 2 diabetes mellitus with hyperglycemia Lesion of right eyelid Colon cancer screening Constipation Guaiac + stool Fatty liver Cholelithiasis Hypertension Erectile dysfunction Hypercholesterolemia Thrombocytopenia Knee osteoarthritis Obesity (BMI 30-39.9) Family History Family History Family/Other Medical history unknown Surgical History Surgical History Hx of umbilical hernia repair (~10/2024) Hx laparoscopic cholecystectomy (~07/2024) S/P ERCP (~06/2024) History of carpal tunnel release S/P TIPS (transjugular intrahepatic portosystemic shunt) (~05/2024) History of total left knee replacement History of amputation of toe (01/06/22) Hx of colonoscopy History of left knee surgery Social History Social History Household Members: Significant Other Housing: House Are you a primary lead caregiver to a significant other at home: No Do you presently have visiting nurse or other home services: No Patient Tobacco Use Status: Never used Tobacco Tobacco use type: Cigarette e-Cigarette/Vaping Use: Never Used Second Hand Smoke Exposure: No Use of substances other than those prescribed or required for medical reasons: No Have you been hit, kicked, punched, or otherwise hurt by someone within the past year? If so, by whom?: No Are you DNR?: No Advance Directives: No Advance Directives Information Provided: Yes Advance Directives on File: No service: No Current occupational status: employed Current occupational exposures/hazards: No Cognitive needs: No Hearing needs: No Vision needs: Yes Meds Allergies Allergy/AdvReac Type Severity Reaction Status Date / Time No Known Allergies Allergy Verified 03/04/25 08:01 Home Medications ?Medication ?Instructions ?Recorded ?Confirmed ?Last Taken ?Type acetaminophen 500 mg tablet 500 mg PO Q6H PRN Pain 05/28/24 02/23/25 Unknown History ciprofloxacin HCl 500 mg tablet 500 mg PO DAILY 05/28/24 02/23/25 03/04/25 06:30 History (Cipro) midodrine 5 mg tablet 15 mg PO TID 05/28/24 02/23/25 03/04/25 06:30 History rifaximin 550 mg tablet (Xifaxan) 550 mg PO BID 05/28/24 02/23/25 Unknown History furosemide 20 mg tablet (Lasix) 20 mg PO DAILY 01/05/25 02/23/25 Unknown History lactulose 10 gram/15 mL oral See Rx Instructions PO .COMPLEX 01/05/25 02/23/25 Unknown History solution spironolactone 50 mg tablet 25 mg PO DAILY 01/05/25 02/23/25 Unknown History Exam Airway Mallampati Class: II TM Dist: >3cm Neck ROM: Full Heart: rrr Lungs: cta Assessment and Plan Assessment Anesthesia Assessment: Anesthesia Plan Discussed and Chart Reviewed Final Anesthetic Review NPO: Yes ASA Class: III Final Preanesthetic Review: No Changes in Pt Med Stat, Meds/Allgs Chart Reviewed, Consent Obtained/Reviewed and Anes Risks/Benef Reviewed Patient Risk: Intermediate Procedure Risk: Low Anesthetic Plan Anesthetic Plan: GA and MAC: Disposition: Standard PACU
[2025-03-04] VITALS (10 sets, daily range): BP systolic 115–129; BP diastolic 69–83; PULSE 80–93; RESP 12–16; TEMP 36.2–37.1; O2SAT 95–98
[2025-03-04] MEDS: Lactated Ringers 1,000 ML 100 ML IVCONT (08:10)
--- NOTE | 2025-03-04 08:43 | MHC.SHP ---
Pre-Procedural Eval Section A - 24 Hr Update-Section A only Date of Service: 03/04/25 The patient is an INPATIENT: No Changes since office visit: Yes Patient answered all questions; No Cold of Flu in the past 2 weeks, No New Medical Problems and No Changes in Medication The patient has been examined within 24 hours of the surgical procedure. The History & Physical has been completed within 30 days and I have reviewed it.: No Section B - Complete if H&P > 30 days Chief Complaint: Foreign body granuloma of the skin and subcutaneou Details of Present Illness: No change in left eye symptoms Relevant Family History (Specify if Yes): No Relevant Social History: Alcohol Use Present Medications: see Short Stay Collaborative assessment Medical History: Significant History (cirrhosis, PVD, DM) History of Previous Operations: No relevant previous surgery Allergies: Allergies Allergy/AdvReac Type Severity Reaction Status Date / Time No Known Allergies Allergy Verified 03/04/25 08:01 Review of Systems Sugical H&P ROS: Negative: Constitution, Cardiovascular, Respiratory, Neurological, Psychiatric, Hem-Onc, Allergic/Immunologic, Gastrointestinal, Genitourinary, Musculoskeletal and Integumentary Exam Surgical H&P Exam: Normal: HEENT, Normal: Heart, Normal: Lungs, Normal: Extremities, Normal: Abdomen and Normal: Skin Plan Diagnosis/Plan: Unchanged I have reviewed the history and physical and performed a pertinent physical examination on my patient. No changes have occurred unless specified. Time Spent With Patient Time: Total time managing care of this patient today ____ minutes.
--- NOTE | 2025-03-04 09:40 | P.OP_ITS ---
Operative Note Operative Note Date of Service: 03/04/25 Narrative: Preoperative diagnosis: Skin lesion left lower eyelid Postoperative diagnosis: Same Procedure: Excision of skin lesion left lower eyelid Surgeon: Sandro Green MD State Tested Nursing Assistant: Cherise Tolentino PA-C; Mercedes Murphy, MS-3 Anesthesia: General LMA Indications for procedure: 64-year-old male patient with a gradually enlarging lesion suggestive of an inclusion cyst of the left lower eyelid. Patient is not reporting numbness extending from the lesion towards the nose. He reports occasional redness in the surrounding skin but denies any pain. There is some discharge from the central portion suggestive of a central punctum. Operative findings: Hard lesion involving the skin and subcutaneous tissue, possible sebaceous cyst or skin neoplasm Specimen: Skin lesion left lower eyelid Estimated blood loss: 10 mL Complications: None Procedure details: Patient was brought to the OR and placed in a supine position. After administering general anesthesia the patient's left eye was prepped with Betadine and draped in a sterile fashion. A surgical time-out was called the consent confirmed. Patient received preoperative antibiotics and Venodyne boots were in place. Local anesthesia was then infiltrated around the lesion. An elliptical incision oriented transversely was then created along the Jose's lines. This was carried out through subcutaneous tissue and around the lesion wall. Sharp dissection with a scalpel was used to completely excise the lesion from the subcutaneous tissue. The eye was protected the entire time of the procedure. The lesion was passed off the table and sent to pathology for further examination. Hemostasis was achieved using light pressure and electrocautery. Skin was then made using interrupted 5 0 nylon sutures. Sterile dressings consisting of a 2 x 2 gauze and Tegaderm were then applied. The patient tolerated the procedure well. Sponge, instrument, and needle counts reported as correct. The patient was transferred to PACU in stable condition.
== END 2025-03-04 11:06 | disposition home or self-care (01) ==
PROVIDERS: PCP Internal Medicine; Visit Provider Surgery
PROC: (CPT 11642; principal; 2025-03-04 09:30)
DX: C44.1292 Squamous cell carcinoma of skin of left lower eyelid, including canthus (principal); I10 Essential (primary) hypertension; E78.00 Pure hypercholesterolemia, unspecified; E11.65 Type 2 diabetes mellitus with hyperglycemia; D64.9 Anemia, unspecified; F10.91 Alcohol use, unspecified, in remission; K70.31 Alcoholic cirrhosis of liver with ascites; K76.0 Fatty (change of) liver, not elsewhere classified; K76.6 Portal hypertension; I73.9 Peripheral vascular disease, unspecified; Z89.421 Acquired absence of other right toe(s); D69.6 Thrombocytopenia, unspecified; Z87.19 Personal history of other diseases of the digestive system; Z79.899 Other long term (current) drug therapy; Z98.890 Other specified postprocedural states; Z90.49 Acquired absence of other specified parts of digestive tract
CPT/HCPCS: 11642; 88304; 88341; 88342; J0690; J1100; J2003; J2250; J2405; J2704; J2795; J3010

== ENCOUNTER → 2025-03-04 07:34 | Outpatient (BNV) | payer MEDICARE, SELFPAY | PROVIDERS: PCP Internal Medicine; Visit Provider Surgery | DX: C44.121 Squamous cell carcinoma of skin of unspecified eyelid, including canthus (principal) | CPT/HCPCS: 11640 ==

== ENCOUNTER 2025-03-11 13:58 | Outpatient (AMB) | payer MEDICARE, SELFPAY ==
--- NOTE | 2025-03-11 14:00 | MHC.OFFVIS ---
Intake Visit Reasons: s/p Excision lft orbital sebaceous cyst Intake Note: Patient here s/p excision on left lower eyelid. Patient c/o: tenderness, lower eyelid feels sore. Would like to have sutures removed. WLE (DAVE): 03-04-2025 Air Pollution Compliance Inspector Required: No Accompanied by: Self / Same As Patient Allergies No Known Allergies Allergy (Verified 03/11/25 14:01) HPI HPI s/p Excision lft orbital sebaceous cyst: Details: Doing okay struggling with some pain related to the sutures, feels like they pull. Denies any drainage or fevers at home. Still has some tingling/numbness sensation on the left lateral side of his nose, states this was there prior to excision. he does have another lesion on his cheek that he wants to be looked at. [facility] Medical History Arthritis Anemia Sepsis (~03/2023) Spontaneous bacterial peritonitis (~08/2024) Portal hypertension Detachment of percutaneous cholecystostomy tube (~01/2024) Acute cholecystitis due to biliary calculus Acute cholecystitis Gallstones Bacteremia Alcohol use Wet gangrene Acidosis, lactic Leukocytosis Type 2 diabetes mellitus with hyperglycemia Lesion of right eyelid Colon cancer screening Constipation Guaiac + stool Fatty liver Cholelithiasis Hypertension Erectile dysfunction Hypercholesterolemia Thrombocytopenia Knee osteoarthritis Obesity (BMI 30-39.9) Surgical History Hx of surgical procedure (03/04/25) Hx of umbilical hernia repair (~10/2024) Hx laparoscopic cholecystectomy (~07/2024) S/P ERCP (~06/2024) History of carpal tunnel release S/P TIPS (transjugular intrahepatic portosystemic shunt) (~05/2024) History of total left knee replacement History of amputation of toe (01/06/22) Hx of colonoscopy History of left knee surgery Family History Family/Other Medical history unknown Social History Household Members: Significant Other Housing: House Are you a primary rental boats caretaker to a significant other at home: No Do you presently have visiting nurse or other home services: No Comment: correct count Patient Tobacco Use Status: Never used Tobacco Tobacco use type: Cigarette e-Cigarette/Vaping Use: Never Used Second Hand Smoke Exposure: No service: No Current occupational status: employed Current occupational exposures/hazards: No Cognitive needs: No Hearing needs: No Vision needs: Yes Review of Systems Const All systems reviewed & are unremarkable except as noted in HPI and below Physical Exam Const General: comfortable and no acute distress Orientation/consciousness: patient oriented x3 HEENT Head images:  1. excision site, well healed, sutures in place. no erythema or drainage, mildly tender to palpation Resp Effort & Inspection: normal respiratory effort and able to speak in complete sentences Skin Other: 1x1cm irregular hyperpigemented lesion on the left lateral cheek, appears rough in appearance. 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 See description. Comment: Perineural invasion is present (diameter of largest involved nerve is 0.24 mm Code(s): C44.121 - Squamous cell carcinoma of skin of unspecified eyelid, including canthus Category: Medical Plan 64-year-old male returning to the office following excision of a lesion under the left eyelid returning for suture removal and wound check. He has been doing good, having some pain when the sutures get pulled but otherwise no complaints. On exam the wound appears to be healing well, there was no evidence of infection at this time. Sutures were removed in office without complication. There was another lesion that the patient was concerned about which is about 1x1cm irregular, hyperpigmented lesion on the lower left cheek. It appears scaly in nature. Would recommend excision of this in the future. We reviewed pathology report showing Invasive squamous cell carcinoma, moderate to poorly differentiated; extending to margins. there was also perineural invasion. We discussed these findings, and that he will need a wider excision due to the poorly differentiated margins. I discussed the case with Dr Green who did the procedure who recommended he see dermatology for a possible mohs procedure for this lesion and excision of the new lesion on the lower cheek. Referral to dermatology has been sent. 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
--- OUTSIDE RECORDS SUMMARY | 2025-03-11 18:33 | XMS_ITS | Encounter Summary ---
Author Organization [facility] Address [address] [place] [address] Care Team Providers Care Athletic Events Scorer Name Role Phone Jade Harper Primary Care Provider [phone] Encounter Details Date Type Department Care Team (Late st Contact Info) Description 04/21/2024 Orders Only [facility] Interventional Radiology [address] [place] [address] Sonia Khoury NP [address] [place] [address] Social History Tobacco Use Types Packs/Day Years Used Date Smoking Tobacco: Never Smokeless Tobacco: Never Alcohol Use Standard Drinks/Week Comments Not Currently 8 (1 standard drink = 0.6 oz pur e alcohol) sober since 11/2023 [facility] Utilities Answer Date Recorded In the past 12 months has [employer], gas, oil, or water [employer] threatened to shut off services in [...] PM EST documented as of this encounter Functional Status documented as of this encounter Plan of Treatment Upcoming Encounters Date Type Department Care Team (Late st Contact Info) Description 03/20/2025 9:45 AM EST Appointment [facility] Ultrasound [address] [place] [id number] 04/28/2025 3:30 PM EST Follow-Up [facility] Liver Transplant Services [address] [place] [address] Mike Low MD [address] [place] [address] documented as of this encounter Visit Diagnoses Not on filedocumented in this encounter Care Teams Athletic Events Scorer Relationship Specialty Start Date End Date Jade Harper [address] [place] [address] [place] [address] PCP - General Internal Medicine 03/06/24 documented as of this encounter
--- OUTSIDE RECORDS SUMMARY | 2025-03-11 18:33 | XMS_ITS | Patient Health Record ---
Author Organization [facility] Address [address] [place] [address] Care Team Providers Care Meat Carrier Name Role Phone Po Jade HAMMOND Primary Care Provider Santos Almeida Jr Unavailable [phone] Allergies No Known Allergies Reason For Referral No Information Medications Medication SIG (Take, Route, Frequency, Duration) Notes Start Date End Date Status MiraLax (colon prep) 17 GM/SCOOP Powder mixed with Gatorade or Crystal Light Orally begin at 5:00 p.m. the day before the procedure; Duration: 1 day 08/15/2021 Active Lisinopril 5 MG Tablet Oral; Duration: 90 Active hydroCHLOROthiazide 25 MG Tablet Oral; Duration: 90 Active Sildenafil Citrate 50 MG Tablet TAKE 1 T AB (50 MG) DAILY NEEDED FOR SEXUAL ACTIVITY Oral; Duration: 75 Active Immunizations Vaccine Route Administration Date Status Comme nts Influenza Unknown 02/09/2021 Administered Social History Tobacco Use: Social History Observation Description Date Details (start date - stop date) Never Smoker NA - NA Social History Drugs/Alcohol: Social Info Question Answer Notes Alcohol Screen Did you have a drink containing alcohol in the past year? Yes How often did you have a drink containing alcohol in the past year? 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 [address] Problems Problem Type SNOMED Code ICD Code Onset Dates Problem Status W/U Status Risk Notes Problem Colon cancer screening (857332067) Colon cancer screening (Z12.11) Active confirmed Problem Pre-procedure evaluation check (165108187) Encounter for other preprocedural examination (Z01.818) Active confirmed Encounters Encounter Location Date Provider Diagnosis [facility] [address] [place] [address] 03/28/2024 Santos Khan Jr [facility] [address] [place] [phone] 04/22/2024 Santos Khan Jr Plan Of Treatment Future Test Test Name Order Date COLONOSCOPY 08/15/2021 Insurance Providers Payer Name Payer Address Payer Phone Subscriber Number Group Number Insured Name Patient Relationship to Insured Coverage Start Date Coverage End Date [employer] [place] [address] [address] [place] [address] [id number] DARCIE CAMACHO Self - patient is the insured Medical (General) History Medical History History ICD Code Hypertension Hyperglycemia Osteoarthritis Fatty liver Thrombocytopenia Surgical History Surgery Date(Month/Year)
--- OUTSIDE RECORDS SUMMARY | 2025-03-11 18:33 | XMS_ITS ---
Author Organization [facility] Address [address] [place] [address] Care Team Providers Care Cannoneer Name Role Phone Jade Harper Primary Care Provider [phone] Transplant Episode Liver Candidate [facility] ([place], [place]) - [facility] waitlisted on 05/02/2024 Marked as Inactive on 05/29/2024 Reason: Temporarily too Well Liver CoordinatorLorie Mahoney RN Phone: N/A Fax: N/A Email: N/A Scores Score Value Updated Expires Exceptions/[place] sons CPRA Not available UNOS MELD 6 MELD (Calc) 14 12/19/2024 [place] Organ Diagnosis Organ Primary Contributory Liver Cirrhosis: Metabolic Dysfunction and Alcohol-Related/Associated Liver Disease (MetALD) Care Team Name Role Phone Fax Email Lorie Mahoney RN Liver Coordinator N/A N/A N/A Santos Khan Referring Physician [phone] N/A Ward Pina Referring Physician [phone] N/A Mike Low MD Ore Washer [phone] [email or web address] Pre-Transplant Referred: 03/06/2024 Evaluation began: 03/18/2024 Committee: 05/01/2024 Center waitlisted: 05/02/2024
--- OUTSIDE RECORDS SUMMARY | 2025-03-11 18:34 | XMS_ITS | Encounter Summary ---
Author Organization [facility] Address [address] [place] [address] Care Team Providers Care Call Center Operations Manager Name Role Phone Jade Harper Primary Care Provider [phone] Encounter Details Date Type Department Care Team (Late st Contact Info) Description 07/01/2024 Orders Only [facility] Interventional Radiology [address] [place], [place] [id number] Keegan Duvall MD 55 [facility] [place] [address] Social History Tobacco Use Types [...] Description 03/20/2025 9:45 AM EST Appointment [facility] Ultrasound [address] [place] [address] 04/28/2025 3:30 PM EST Follow-Up [facility]- [facility] Liver Transplant Services [address] [place] [address] Mike Low MD [address] [place] [address] documented as of this encounter Visit Diagnoses Not on filedocumented in this encounter Care Teams Call Center Operations Manager Relationship Specialty Start Date End Date Jade Harper [address] [place] [address] [place] [address] PCP - General Internal Medicine 03/06/24 documented as of this encounter
--- OUTSIDE RECORDS SUMMARY | 2025-03-11 18:34 | XMS_ITS | Encounter Summary ---
Author Organization [facility] Address [address] [place] [address] Care Team Providers Care Agriculture Specialist Name Role Phone Jade Harper Primary Care Provider [phone] Encounter Details Date Type Department Care Team (Late st Contact Info) Description 04/18/2024 Orders Only [facility] Interventional Radiology [address] [place], [place] [phone] Malathi Brambila MD [address] [place] [address] Social History Tobacco Use Types Packs/Day Years Used Date Smoking Tobacco: Never Smokeless Tobacco: Never Alcohol Use Standard Drinks/Week Comments Not Currently 8 (1 standard drink = 0.6 oz pur e alcohol) sober since 11/2023 [facility] Utilities Answer Date Recorded In [...] Info) Description 03/20/2025 9:45 AM EST Appointment [facility] Ultrasound [address] [place] [address] 04/28/2025 3:30 PM EST Follow-Up [facility]- [facility] Liver Transplant Services [address] [place] [address] Mike Low MD [address] [place] [address] documented as of this encounter Visit Diagnoses Not on filedocumented in this encounter Care Teams Agriculture Specialist Relationship Specialty Start Date End Date Jade Harper [address] [facility] [place] [address] PCP - General Internal Medicine 03/06/24 documented as of this encounter
--- OUTSIDE RECORDS SUMMARY | 2025-03-11 18:34 | XMS_ITS | Encounter Summary ---
Author Organization [facility] Address [address] [place] [address] Care Team Providers Care Veterinarian Poultry Name Role Phone Jade Harper Primary Care Provider [phone] Encounter Details Date Type Department Care Team (Late st Contact Info) Description 05/07/2024 Orders Only [facility] Interventional Radiology [address] [place] [address] Sarah Melgar, JULIANE [address] [place] [phone] Social History Tobacco Use Types Packs/Day Years Used Date Smoking Tobacco: Never Smokeless Tobacco: Never Alcohol Use Standard Drinks/Week Comments Not Currently 8 (1 standard drink = 0.6 oz pur e alcohol) sober since 11/2023 [facility] Utilities Answer Date Recorded In the past 12 months has [employer] electric, gas, oil, or water company threatened [...] Info) Description 03/20/2025 9:[address] [facility] Ultrasound [address] [place] [address] 04/28/2025 3:30 PM EST Follow-Up [facility]- [facility] Liver Transplant Services [address] [place] [address] Mike Low MD [address] [place] [address] documented as of this encounter Visit Diagnoses Not on filedocumented in this encounter Care Teams Veterinarian Poultry Relationship Specialty Start Date End Date Jade Harper [address] [place] [address] [place] [address] PCP - General Internal Medicine 03/06/24 documented as of this encounter
--- OUTSIDE RECORDS SUMMARY | 2025-03-11 18:34 | XMS_ITS | Clinical Summary ---
Author Organization [facility] Address [address] [place] [address] Care Team Providers Care Crime Scene Specialist Name Role Phone Jade Harper Primary Care Provider [phone] Allergies No known active allergies Medications acetaminophen (TYLENOL) 500 mg tablet Take 500 mg by mouth every 6 hours as needed for pain. Active rifAXIMin (XIFAXAN) 550 mg tablet Take 1 tablet (550 mg total) by mouth every 12 hours. 180 tablet 3 5 07/31/19 26 Active ciprofloxacin (CIPRO) 500 mg tablet Take 500 mg by mouth every 24 hours. Active ondansetron (ZOFRAN ODT) 4 mg disintegrating tablet DISSOLVE 1 TABLET IN THE MOUTH EVERY 8 HOURS NEEDED FOR NAUSEA OR VOMITING. 72 tablet 1 5 Active lactulose 10 gram/15 mL solution Take 45 mL (30 g total) by mouth 2 (two) times a day. 5 12/20/19 26 Active furosemide (LASIX) 20 mg tablet Take 1 tablet (20 mg total) by mouth once a day. 30 tablet 2 5 05/21/19 26 Active spironolactone (ALDACTONE) 50 mg tablet Take 1 tablet (50 mg total) by mouth once a day. 30 tablet 2 5 05/21/19 26 Active midodrine (PROAMATINE) 5 mg tablet TAKE 3 TABLETS (15 MG TOTAL) BY MOUTH EVERY 8 HOURS. 810 tablet 3 5 03/05/20 26 Active Active Problems Problem Noted Date Diagnosed [...] PRN - Plan for paracentesis vs TIPS /3 - Plan for stent exchange in [...] Encounters Date Type Department Care Team Description 03/05/2025 Refill [facility] Liver Transplant Services [address] [place] [address] Mike Low MD 02/20/2025 Orders Only [facility] Transplant Department [address] [place] [address] Alondra Aceves RN 12/30/2024 Telephone [facility] Transplant Department [address] [place] [address] Selin Johnson CPhT Prior Authorization 12/19/2024 11:09 AM EDT - 12/19/2024 11:59 PM EDT Hospital Encounter [facility] Xray [address] [place] [address] S/P umbilical hernia repair, follow-up exam; Alcoholic cirrhosis of liver with ascites (HCC); S/P laparoscopic cholecystectomy; SBP (spontaneous bacterial peritonitis) (HCC); Shortness of breath Discharge Disposition: Home or Self Care (01) 12/19/2024 10:30 AM EDT Follow-Up [facility] Liver Transplant Services [address] [place] [address] Mike Low MD S/P umbilical hernia repair, follow-up exam (Primary Dx); Alcoholic cirrhosis of liver with ascites (HCC); S/P laparoscopic cholecystectomy; SBP (spontaneous bacterial peritonitis) (HCC); Shortness of breath 12/19/2024 Results Follow-Up [facility] Liver Transplant Services [address] [place] [address] Alondra Aceves RN 12/19/2024 myChart Message [facility] Liver Transplant Services [address] [place] [address] Mike Low MD chest xray 12/12/2024 Telephone [facility] Transplant Department [address] [place] [address] Selin Johnson CPhT Prior Authorization from Last 3 Months Immunizations Immunization Administration [...] oz pur e alcohol) sober since 11/2023 [facility] Utilities Answer Date Recorded In the past 12 months has e [employer], gas, oil, or water [employer] threatened to shut off services in your [...] Info) Description 03/20/2025 9:45 AM EST Appointment [facility] Ul[facility]ound [address] [place] [address] 04/28/2025 3:30 PM EST Follow-Up [facility] Liver Transplant Services [address] [place] [address] Mike Low MD [address] [place] [address] Health Maintenance Due Date Last Done Comments Cologualili 1959 Colon Cancer Screening 1959 Colonoscopy 1959 FOBT / Fit Test 1959 Sigmoidoscopy 1960 Medicare AWV 10/05/1960 RSV Vaccine (60+ years old a nd patients) (1 - Risk 50-74 years 1-dose series) 10/05/2009 Hepatitis B Vaccines (1 of 3 - Risk 3-dose series) 2019 03/21/2018, 10/19/2017, 09/19/2017 Depression Screening and Follow-Up 03/26/2024 Health Care Proxy Review 03/26/2024 Influenza Vaccine (#1) 2024 , 01/10/2023, 12/28/2020, Additional history exists COVID-19 Vaccine (2024-2 6 season) 2024 02/08/2023, 12/22/2020, 04/02/2020, Additional history exists Social Drivers of Health [...] Completed 5 Medical Devices Implanted Type Area Sweetbread Trimmer Device Identifier Shelf Expiration Date Model / Serial / Lot Kit Set Access Tips Bd Liverty - [id number] Implanted:Qty: 1 on 06/11/2024 by James [facility]yle [facility] DORON LASHONDA [id number] 06/17/2026 [id number] / / [id number] Stent Vascular Endoprosthesis With Controlled Expansion 10fr [id number] [facility] - [id number] - [id number] Implanted:Qty: 1 on 06/11/2024 by James Pyle MD PhD at [facility] Implant W L GORE [id number] 02/14/2027 PTB [id number] / [id number] / Vascular Plug For Peripheral Vascular Occlusion 18mm - [id number] Implanted:Qty: 1 on 06/11/2024 by James Pyle MD PhD at [facility] Implant [facility] [employer] [id number] 10/24/2027 [id number] Set Stent Biliary Self Expanding Pigtail Double [id number] [facility] - Szebd-7-15 Or [id number] - [id number] Implanted:Qty: 1 on 07/03/2024 by Rachel Murray MD at [facility] Stent N/A: Bile Duct [employer] [id number] 01/14/2027 [id number] / ZEBD-7-1 5 OR [id number] / [id number] Set Stent Biliary Self Expanding Pigtail Double [id number] [facility] - Szebd-7-15 - [id number] Implanted:Qty: 1 on 07/03/2024 by Rachel [facility] MD at [facility] Stent N/A: Bile Duct [employer] [id number] 01/14/2027 [id number] / ZEBD-7-1 5 / [id number] Explanted Type Area Sweetbread Trimmer Device Identifier Shelf Expiration Date Model / Serial / Lot Stent Advanix Pancreatic Pigtail Lb 5fr X 7cm - [id number] - [id number] Explanted:Qty: 1 on 04/29/2024 by Rachel [facility] MD at [facility] Stent [employer] 04/09/2025 [id number] / [id number] / [id number] Stent Biliary Rx Fully Covered Self Expanding Metallic Rmv With Permalume Covering 8.5fr [id number] [employer] - [id number] Implanted:Qty: 1 on 04/29/2024 by [facility] MD at [facility] Explanted:Qty: 1 on 07/03/2024 by Rachel [facility] MD at [facility] Stent N/A: Bile Duct [employer] 12/27/2025 [id number] / / [id number] Stent Biliary Double Pigtail Polyethylene Purple 7fr 5cm [employer] - [id number] - [id number] Implanted:Qty: 1 on 05/02/2024 by [facility] MD at [facility] Explanted:Qty: 1 on 07/03/2024 by Rachel Murray MD at [facility] Stent N/A: Bile Duct [employer] 06/28/2025 [id number] / [id number] / [id number] Description:PLACED IN CYSTIC DUCT Stent Biliary Double Pigtail W/Introducer 10fr 4cm Solus - [id number] - [id number] Implanted:Qty: 1 on 05/02/2024 by Rachel [facility] MD at [facility] Explanted:Qty: 1 on 07/03/2024 by Rachel Murray MD at [facility] Stent N/A: Bile Duct [employer] 05/02/2025 [id number] / [id number] / Description:PLACED IN CBD Procedures * Due to [place] state law, this organization might not be [...] (spontaneous bacterial peritonitis) (HCC) Shortness of breath HEPATITIS C ANTIBODY W/REFLEX TO HCV RNA, QUANTITATIVE PCR Routine 04/17/2024 9:32 AM EST from Last 3 Months or Most Recently Relevant to Health Maintenance Results * Due to [place] state law, this organization might not be sharing negative HIV tests. * (ABNORMAL) Protime-INR (12/19/2024 11:25 AM EDT) PT 13.6(H) 9.6 - 12.4 Seconds 12/19/2024 11:59 AM EDT [facility] INR 1.3 0.9 - 1.1 12/19/2024 11:59 AM EDT [facility] Comment:The optimal therapeu tic INR range for patients treated with Vitamin K antagonists (VKAS, e.g., Warfarin) is 2.0 to 3.5. Discuss the desired range with your doctor/care team. Blood Structure of peripheral vein / Unknown Venipuncture / Unknown 12/19/2024 11:25 AM EDT 12/19/2024 11:40 AM EDT us Mike Low MD LAB BLOOD ORDERABLES Fin al Result [facility] [address] [place] [address], * (ABNORMAL) CBC (12/19/2024 11:25 AM EDT) WBC 5.4 3.8 - 10.8 10*3/uL 12/19/2024 11:48 AM EDT [email or web address] RBC 3.64(L) 4.20 - 5.80 10*6/uL 12/19/2024 11:48 AM EDT [facility] Hemoglobin 12.4(L) 13.2 - 17.1 g/dL 12/19/2024 11:48 AM EDT [facility] Hematocrit 34.9(L) 38.5 - 50.0 % 12/19/2024 11:48 AM EDT [facility] MCV 95.9 80.0 - 100.0 fL 12/19/2024 11:48 AM EDT [facility] MCH 34.1(H) 27.0 - 33.0 pg 12/19/2024 11:48 AM EDT [facility]SA[facility] MCHC 35.5 32.0 - 36.0 g/dL 12/19/2024 11:48 AM EDT [facility] RDW 15.0 11.0 - 15.0 % 12/19/2024 11:48 AM EDT [facility] Platelets 110(L) 140 - 400 10*3/uL 12/19/2024 11:48 AM EDT [facility] MPV 10.8 7.5 - 12.5 fL 12/19/2024 11:48 AM EDT [facility] Blood Structure of peripheral vein / Unknown Venipuncture / Unknown 12/19/2024 11:25 AM EDT 12/19/2024 11:40 AM EDT Mike Low MD LAB BLOOD ORDERABLES Fin al Result [facility]ITALOnline Milestone PlatformPR [facility] [address] [place] [address], * (ABNORMAL) Hepatic Function Panel (12/19/2024 11:25 AM EDT) Total Protein 6.8 6.0 - 8.0 g/dL 12/19/2024 12:11 PM EDT [facility] Albumin 3.6 3.5 - 5.2 g/dL 12/19/2024 12:11 PM EDT [facility] Globulin, Total 3.2 2.1 - 4.2 g/dL 12/19/2024 12:11 PM EDT [facility] Bilirubin, Total 2.9(H) 0.2 - 1.2 mg/dL 12/19/2024 12:11 PM EDT [facility] Bilirubin, Direct 1.1(H) <=0.4 mg/dL 12/19/2024 12:11 PM EDT [facility] Alkaline Phosphatase 241(H) 35 - 129 U/L 12/19/2024 12:11 PM EDT [facility] AST 45(H) 10 - 40 U/L 12/19/2024 12:11 PM EDT [facility] ALT 31 10 - 40 U/L 12/19/2024 12:11 PM EDT [facility] Bilirubin, Indirect 1.80(H) <=0.70 mg/dL 12/19/2024 12:11 PM EDT [facility]idelityKSAuto [facility] A/G Ratio 1.1(L) 1.5 - 3.0 12/19/2024 12:11 PM EDT [facility] Blood Structure of peripheral vein / Unknown Venipuncture / Unknown 12/19/2024 11:25 AM EDT 12/19/2024 11:40 AM EDT us Mike Low MD LAB BLOOD ORDERABLES Fin al Result [facility] [facility] [address] [place] [address], * (ABNORMAL) Basic Metabolic Panel (12/19/2024 11:25 AM EDT) NA 136 135 - 145 mmol/L 12/19/2024 12:11 PM EDT [email or web address] K 4.3 3.5 - 5.3 mmol/L 12/19/2024 12:11 PM EDT [facility]ITALGrassho[facility]!PR [facility] Cl 104 98 - 107 mmol/L 12/19/2024 12:11 PM EDT [facility] CO2 23 22 - 32 mmol/L 12/19/2024 12:11 PM EDT [facility] BUN 15 7 - 23 mg/dL 12/19/2024 12:11 PM EDT [facility] Creatinine 0.86 0.60 - 1.30 mg/dL 12/19/2024 12:11 PM EDT [facility] Glucose 117(H) 65 - 99 mg/dL 12/19/2024 12:11 PM EDT [email or web address] Calcium 9.8 8.6 - 10.5 mg/dL 12/19/2024 12:11 PM EDT [email or web address] Anion Gap 9 5 - 15 12/19/2024 12:11 PM EDT SpontaneouslyPR [facility] eGFR >90 >=60 mL/min/1. 73m2 12/19/2024 12:11 PM EDT [email or web address] Comment:The estimated glomer ular [...] 11:25 AM EDT 12/19/2024 11:40 AM EDT us Mike Low MD LAB BLOOD ORDERABLES Fin al Result [facility] [address] [place] [address], [place] * X-Ray Chest 2 Views (12/19/2024 [...] to obtain the completed interpretation. Workstation ID: [id number] Narrative 12/21/2024 4:05 PM EDT COMPARISON: 07/03/2024 FINDINGS AND Resulting Agency Comment [id number] Procedure Note Jeyson Silva MD - 12/21/2024 COMPARISON: 07/03/2024 FINDINGS AND IMPRESSION: No change. Heart size normal. Lungs and pleural spaces clear. Mild DJD inthe dorsal spine. If this radiology report contains a blank impression section, it is anincomplete radiology report. Please contact the interpreting radiologistor applicable radiology division as soon as possible to obtain thecompleted interpretation. Workstation ID: [id number] us Mike Low MD IMG XR PROCEDURES Final Result * Hepatitis C Antibody w/Reflex to HCV RNA, Quantitative PCR (04/17/2024 9:32 AM EST) Hepatitis C Antibody NON-REACT ALESIA NON-REACT ALESIA 04/17/2024 7:31 PM EST [facility] Comment: HCV antibody was non-reactive. There is no laboratory evidence of HCV infection. In most cases, no further action is required. However, if recent HCV exposure is suspected, a test for HCV RNA (test code 91011) is suggested. For additional information please refer to http://education.Ocapo/faq/EUH20p8 (This link is being provided for informational/ educational purposes only.) Blood Structure of peripheral vein / Unknown Venipuncture / Unknown 04/17/2024 9:32 AM EST 04/17/2024 9:44 AM EST Narrative [facility] - 04/17/2024 7:31 PM EST [facility] Received Date: Delmis Joseph MD LAB BLOOD ORDERABLES Final Result [facility] [address] [facility] [address]rd Floor, [place] [address], [facility] [address], [place] [address], from Last 3 Months or Most Recently Relevant to Health Maintenance Insurance MEDICARE [facility] MEDICARE [facility] Advance Directives Documents on File Type Date Recorded Patient Coverage Analyst Expl anation Health Care Proxy 04/17/2024 10:33 AM Abdelrahman Correa 0 04-16-2024 Power of Manager Fleet 04/17/2024 7:16 AM Health Care Proxy 04/16/2024 [...] Sana Correa Spouse Alternate Health Care Agent [email or web address] Care Teams Crime Scene Specialist Relationship Specialty Start Date End Date Jade Harper [address] [place] [address] [place] [address] PCP - General Internal Medicine 03/06/24
--- OUTSIDE RECORDS SUMMARY | 2025-03-11 18:34 | XMS_ITS | Encounter Summary ---
Author Organization [facility] Address [address] [place] [address] Care Team Providers Care Amusement Park Worker Name Role Phone Jade Harper Primary Care Provider [phone] Encounter Details Date Type Department Care Team (Late st Contact Info) Description 04/30/2024 Orders Only [facility] Interventional Radiology [address] [place] [address] Alondra Sage NP [address] [place] [address] Social History Tobacco Use Types Packs/Day Years Used Date Smoking Tobacco: Never Smokeless Tobacco: Never Alcohol Use Standard Drinks/Week Comments Not Currently 8 (1 standard drink = 0.6 oz pur e alcohol) sober since 11/2023 [facility] Utilities Answer Date Recorded In the [...] Info) Description 03/20/2025 9:45 AM EST Appointment [facility] Ultrasound [address] [place] [address] 04/28/2025 3:30 PM EST Follow-Up [facility] Liver Transplant Services [address] [place] [address] Mike Low MD [address] [place] [address] documented as of this encounter Visit Diagnoses Not on filedocumented in this encounter Care Teams Amusement Park Worker Relationship Specialty Start Date End Date Jade Harper [address] [facility] [address] PCP - General Internal Medicine 03/06/24 documented as of this encounter
--- OUTSIDE RECORDS SUMMARY | 2025-03-11 18:34 | XMS_ITS | Encounter Summary ---
Author Organization [facility] Address [address] [place] [address] Care Team Providers Care Lead Database Developer Name Role Phone Jade Harper Primary Care Provider [phone] Encounter Details Date Type Department Care Team (Late st Contact Info) Description 06/25/2024 Orders Only [facility] Interventional Radiology [address] [place], [place] [id number] Jose Alberto Dimas NP [address] [place] [address] Social History Tobacco Use Types Packs/Day Years Used Date Smoking Tobacco: Never Smokeless Tobacco: Never Alcohol Use Standard Drinks/Week Comments Not Currently 8 (1 standard drink = 0.6 oz pur e alcohol) sober since 11/2023 [facility] Utilities Answer Date Recorded In the [...] [facility] [address] [place] [address] 04/28/2025 3:30 PM EST Follow-Up [facility] Liver Transplant Services [address] [place] [address] Mike Low MD [address] [place] [address] documented as of this encounter Visit Diagnoses Not on filedocumented in this encounter Care Teams Lead Database Developer Relationship Specialty Start Date End Date Jade Harper [address] [place] [address] [place] [address] PCP - General Internal Medicine 03/06/24 documented as of this encounter
--- OUTSIDE RECORDS SUMMARY | 2025-03-11 18:34 | XMS_ITS | Encounter Summary ---
Author Organization [facility] Address [address] [place] [address] Care Team Providers Care Metal Bonding Worker Name Role Phone Jade Harper Primary Care Provider [phone] Encounter Details Date Type Department Care Team (Late st Contact Info) Description 06/18/2024 Orders Only [facility] Interventional Radiology [address] [place] [address] Sarah Melgar, JULIANE [address] [place] [address] [phone] Social History Tobacco Use Types Packs/Day Years Used Date Smoking Tobacco: Never Smokeless Tobacco: Never Alcohol Use Standard Drinks/Week Comments Not Currently 8 (1 standard drink = 0.6 oz pur e alcohol) sober since 11/2023 [facility] Utilities Answer Date Recorded In the past 12 months has [employer], gas, oil, or water company threatened [...] Info) Description 03/20/2025 9:45 AM EST Appointment [facility] Ul[facility] [address] [place] [address] 04/28/2025 3:30 PM EST Follow-Up [facility] Transplant [facility] [address] [place] [address] Mike Low MD [address] [place] [address] documented as of this encounter Visit Diagnoses Not on filedocumented in this encounter Care Teams Metal Bonding Worker Relationship Specialty Start Date End Date Jade Harper [address] [place] [address] [place] [address] PCP - General Internal Medicine 03/06/24 documented as of this encounter
== END 2025-03-11 14:32 | disposition home or self-care (01) ==
LOC: HO.HGS 13:59
PROVIDERS: PCP Internal Medicine
DX: C44.121 Squamous cell carcinoma of skin of unspecified eyelid, including canthus (principal)
CPT/HCPCS: 99214

== ENCOUNTER → 2025-03-11 13:58 | Outpatient (BNVA) | payer MEDICARE, SELFPAY | PROVIDERS: PCP Internal Medicine | DX: Z48.02 Encounter for removal of sutures (principal); C44.121 Squamous cell carcinoma of skin of unspecified eyelid, including canthus | CPT/HCPCS: 99212 ==